=== PATIENT | male | born 1970 | race American Indian/Alaskan Native ===

== ENCOUNTER 2016-10-29 17:17 | Emergency (ER) | payer SELFPAY ==
[2016-10-29 18:01] LABS: Hemoglobin 11.8 gm/dl (11.8-15.2); Mean Corpuscular HGB Conc 33 % (32-34); Mean Corpuscular Hemoglobin 37 pg (28-32); Red Blood Count 3.17 M/mm3 (3.65-5.03); Red Cell Distribution Width 16.2 % (13.2-15.2)
[2016-10-29 18:02] LABS: Mean Corpuscular Volume 114 fl (84-94); White Blood Count 2.3 K/mm3 (4.5-11.0)
[2016-10-29 18:17] LABS: Anion Gap 32 mmol/L; BUN/Creatinine Ratio 26.25; Blood Urea Nitrogen 21 mg/dL (9-20); Calcium 9.1 mg/dL (8.4-10.2); Carbon Dioxide 15 mmol/L (22-30); Chloride 100.5 mmol/L (98-107); Glucose 99 mg/dL (75-100); Potassium 4.1 mmol/L (3.6-5.0); Sodium 143 mmol/L (137-145)
[2016-10-29 18:35] VITALS: BP 175/112
[2016-10-29 19:33] LABS: Basophils % (Manual) 0 % (0.0-1.8); Blastocytes % (Manual) 0 %
[2016-10-29 19:34] LABS: Anisocytosis 1+; Diff Status Complete; Macrocytosis 1+; Platelet Estimate Consistent w Auto
[2016-10-29 19:45] LABS: Urine Drugs of Abuse Note Disclamer
[2016-10-29 19:59] LABS: Platelet Count 77 K/mm3 (140-440)
[2016-10-29 20:03] LABS: Bacteria,Urine 1+ /HPF (Negative); Bilirubin,Urine NEG (Negative); Blood,Urine SM (Negative); Ketones,Urine TR mg/dL (Negative); Leukocyte Esterase,Urine NEG (Negative); Mucus,Urine FEW /HPF; Nitrite,Urine NEG (Negative); WBC,Urine < 1.0 /HPF (0.0-6.0)
--- NOTE | 2016-10-30 07:20 | XRay Report ---
Chest 2 views: Compared to 10/08/15. History: Shortness of breath. Findings: Cardiomegaly. Trachea is midline. No consolidation, pneumothorax or pleural effusion. Impression: Cardiomegaly. No acute lung changes.
== END 2016-10-29 19:57 | disposition left against medical advice (07) ==
LOC: ED 17:17
DX: R06.00 Dyspnea, unspecified (principal); M79.89 Other specified soft tissue disorders; Z53.21 Procedure and treatment not carried out due to patient leaving prior to being seen by health care provider
CPT/HCPCS: 36415; 71020; 80048; 80307; 81001; 82962; 83880; 84484; 85007; 85025; 93005; 93010; G0480; 80320

== ENCOUNTER 2016-10-30 07:54 | Inpatient (IN) | payer SELFPAY ==
[2016-10-30 08:59] LABS: Hematocrit 34.6 % (35.5-45.6); Hemoglobin 11.3 gm/dl (11.8-15.2); Mean Corpuscular HGB Conc 33 % (32-34); Mean Corpuscular Hemoglobin 38 pg (28-32); Red Blood Count 2.99 M/mm3 (3.65-5.03); White Blood Count 2.9 K/mm3 (4.5-11.0)
[2016-10-30 09:00] LABS: Mean Corpuscular Volume 116 fl (84-94); Platelet Count 70 K/mm3 (140-440)
[2016-10-30 09:11] LABS: Alanine Aminotransferase 44 units/L (7-56); Albumin 3.6 g/dL (3.9-5); Albumin/Globulin Ratio 0.9 %; Alkaline Phosphatase 95 units/L (35-129); Anion Gap 28 mmol/L; Blood Urea Nitrogen 16 mg/dL (9-20); Calcium 9.1 mg/dL (8.4-10.2); Carbon Dioxide 20 mmol/L (22-30); Chloride 96.7 mmol/L (98-107); Glucose 106 mg/dL (75-100); Potassium 3.5 mmol/L (3.6-5.0); Sodium 141 mmol/L (137-145); Total Protein 7.5 g/dL (6.3-8.2)
--- NOTE | 2016-10-30 09:22 | XRay Report ---
Single chest: Compared to 10/29/16. History: Shortness of breath. Findings: Cardiomegaly. Trachea is midline. No consolidation, pneumothorax or pleural effusion. No significant interval change. Linear density identified in the left lower lobe probably suggestive of discoid atelectasis and less likely pneumonia. Impression: Linear density left lower lobe probably suggestive of discoid atelectasis and less likely pneumonia.
[2016-10-30 11:00] LABS: Blastocytes % (Manual) 0 %; Eosinophils % (Manual) 0 % (0.0-4.3)
[2016-10-30 11:01] LABS: Anisocytosis 1+; Diff Status Complete; Macrocytosis 1+; Platelet Estimate Cons
[2016-10-30] MEDS ORDERED: NITRO-BID 2% TP ONE (14:07)
[2016-10-30] MEDS ORDERED: LASIX IV ONE ×2 (14:07→15:23)
--- NOTE | 2016-10-30 14:07 | Emergency Department Report ---
ED Shortness of Breath HPI - General Chief Complaint: Medical Clearance Stated Complaint: DEPRESSION/SOB Time Seen by Provider: 10/30/16 13:53 Source: patient Mode of arrival: Wheelchair Limitations: No Limitations - History of Present Illness MD Complaint: shortness of breath, cough -: Gradual Radiation: back Severity: mild Consistency: constant Improves With: oxygen, upright position, medication Worsens With: lying flat, exertion Known History Of: congestive heart failure Context: recent URI, medication noncompliance Associated Symptoms: cough, orhopnia Treatments Prior to Arrival: oxygen - Related Data Home Oxygen Therapy: No Previous Rx's Medication Instructions Recorded Last Taken Type Furosemide [Lasix TAB] 80 mg PO QDAY #30 tablet 10/09/15 Unknown Rx Allergies Allergy/AdvReac Type Severity Reaction Status Date / Time No Known Allergies Allergy Verified 10/29/16 17:29 ED Review of Systems ROS: Stated complaint: DEPRESSION/SOB Other details as noted in HPI Comment: All other systems reviewed and negative ED Past Medical Hx - Past Medical History Previous Medical History?: Yes Hx Hypertension: Yes Hx Congestive Heart Failure: Yes Hx Psychiatric Treatment: Yes (ANXIETY / DEPRESSION) Hx COPD: Yes - Surgical History Past Surgical History?: No - Social History Smoking Status: Never Smoker Substance Use Type: Alcohol - Medications Home Medications: Home Medications Medication Instructions Recorded Confirmed Last Taken Type Furosemide [Lasix TAB] 80 mg PO QDAY #30 tablet 10/09/15 Unknown Rx ED Physical Exam - General Limitations: No Limitations General appearance: alert, in no apparent distress - Head Head exam: Present: atraumatic, normocephalic - Eye Eye exam: Present: normal appearance - ENT ENT exam: Present: mucous membranes moist - Neck Neck exam: Present: normal inspection - Respiratory Respiratory exam: Present: normal lung sounds bilaterally, respiratory distress , rales, rhonchi, decreased breath sounds - Cardiovascular Cardiovascular Exam: Present: normal rhythm, tachycardia. Absent: systolic murmur, diastolic murmur, rubs, gallop - GI/Abdominal GI/Abdominal exam: Present: soft, normal bowel sounds - Rectal Rectal exam: Present: deferred - Extremities Exam Extremities exam: Present: normal inspection - Back Exam Back exam: Present: normal inspection - Neurological Exam Neurological exam: Present: alert, oriented X3 - Psychiatric Psychiatric exam: Present: normal affect, normal mood - Skin Skin exam: Present: warm, dry, intact, normal color. Absent: rash ED Course Vital Signs 10/30/16 10/30/16 10/30/16 08:26 14:01 14:26 Temperature 98.3 F 98.4 F Pulse Rate 120 H 124 H 112 H Respiratory 18 16 Rate Blood Pressure 171/113 160/104 Blood Pressure 180/110 [Left] O2 Sat by Pulse 98 100 Oximetry ED Medical Decision Making - Lab Data Result diagrams: 10/30/16 08:37 10/30/16 08:37 - EKG Data -: EKG Interpreted by Me Rate: tachycardia - EKG Data When compared to previous EKG there are: no significant change - Radiology Data Radiology results: report reviewed, image reviewed - Medical Decision Making will need admisison for pulmonary edema and chf , non compliance with meds, still sob with minimal exertion , Critical care time in (mins) excluding proc time.: 35 Critical care attestation.: If time is entered above; I have spent that time in minutes in the direct care of this critically ill patient, excluding procedure time. ED Disposition Clinical Impression: Pulmonary edema cardiac cause Disposition: OP ADMITTED IP TO THIS HOSP Is pt being admited?: Yes Does the pt Need Aspirin: No Condition: Good Instructions: Pulmonary Edema (ED) Referrals: PRIMARY CARE, [Primary Care Provider] - 3-5 Days Time of Disposition: 15:37
[2016-10-30 15:16] LABS: Creatine Kinase MB 5.2 ng/mL (0.0-4.0)
[2016-10-30] MEDS ORDERED: MILK OF MAGNESIA PO PRN (16:10)
[2016-10-30] MEDS ORDERED: TYLENOL PO PRN (16:10)
[2016-10-30] MEDS ORDERED: DULCOLAX PR PRN (16:10)
[2016-10-30] MEDS ORDERED: ZOFRAN IV PRN (16:10)
[2016-10-30] MEDS ORDERED: MORPHINE IV PRN (16:10)
[2016-10-30] MEDS ORDERED: COREG PO ONE (16:25)
--- NOTE | 2016-10-30 16:33 | History and Physical Report ---
History of Present Illness Date of examination: 10/30/16 Date of admission: 10/30/16 Chief complaint: Increasing SOB for one month. History of present illness: 46 y/o AAM with HX of CHF not taking his meds kelly Lasix for last one mth comes in for increasing SOB and Orthopnea .No PND attacks.Has Class 4 NYHA symptoms.No fever/chills.No chest pain. Past History Past Medical History: heart failure, hypertension Past Surgical History: No surgical history Social history: lives with family, smoking Family history: hypertension Medications and Allergies Allergies Allergy/AdvReac Type Severity Reaction Status Date / Time No Known Allergies Allergy Verified 10/29/16 17:29 Home Medications Medication Instructions Recorded Confirmed Last Taken Type Furosemide [Lasix TAB] 80 mg PO QDAY #30 tablet 10/09/15 10/30/16 Unknown Rx Lisinopril [Zestril] 40 mg PO DAILY 10/30/16 10/30/16 Unknown History Active Meds: Active Medications Acetaminophen (Tylenol) 650 mg PO Q4H PRN PRN Reason: Pain MILD(1-3)/Fever >100.5/ERWIN Aspirin (Baby Aspirin) 81 mg PO QDAY TERRELL Bisacodyl (Dulcolax) 10 mg FL QDAY PRN PRN Reason: Constipation unrelieved by MOM Carvedilol (Coreg) 6.25 mg PO ONCE ONE Stop: 10/30/16 16:26 Enoxaparin Sodium (Lovenox) 40 mg SUB-Q QDAY TERRELL Furosemide (Lasix) 40 mg IV BID@0600,1800 TERRELL Losartan Potassium (Cozaar) 100 mg PO QDAY TERRELL Magnesium Hydroxide (Milk Of Magnesia) 30 ml PO Q4H PRN PRN Reason: Constipation Morphine Sulfate (Morphine) 2 mg IV Q4H PRN PRN Reason: Pain, Moderate (4-6) Ondansetron HCl (Zofran) 4 mg IV Q8H PRN PRN Reason: N/V unrelieved by Reglan Potassium Chloride (K-Dur) 20 meq PO BID TERRELL Review of Systems All systems: negative Constitutional: weight gain Ears, nose, mouth and throat: no ear pain, no ear discharge, no tinnitis, no decreased hearing, no nose pain, no nasal congestion, no nasal discharge, no sinus pressure, no sinus pain Cardiovascular: orthopnea, shortness of breath, dyspnea on exertion, leg edema Respiratory: shortness of breath, dyspnea on exertion, no cough, no cough with sputum, no excessive sputum, no hemoptysis, no congestion, no wheezing, no pain on inspiration, no snoring Gastrointestinal: no abdominal pain, no nausea, no vomiting, no diarrhea, no constipation, no change in bowel habits, no hematemesis, no coffee ground emesis Genitourinary Male: no dysuria, no hematuria, no flank pain, no discharge, no urinary frequency, no urinary hesitancy, no nocturia, no incontinence Musculoskeletal: no neck stiffness, no neck pain, no shooting arm pain, no arm numbness/tingling, no low back pain, no shooting leg pain, no leg numbness/ tingling, no redness of joints Integumentary: no rash, no pruritis, no redness, no sores, no wounds, no jaundice, no boils, no blisters Neurological: no head injury, no transient paralysis, no paralysis, no weakness , no parathesias, no numbness, no tingling, no seizures, no syncope, no tremors , no ataxia, no lack of coordination Psychiatric: anxiety, no memory loss, no change in sleep habits, no sleep disturbances, no insomnia, no hypersomnia, no change in appetite, no change in libido Endocrine: no cold intolerance, no heat intolerance, no polyphagia, no excessive thirst, no polydipsia, no polyuria, no nocturia, no excessive sweating , no flushing, no weight change Hematologic/Lymphatic: no easy bruising, no easy bleeding Allergic/Immunologic: no urticaria, no allergic rhinitis, no wheezing Exam - Physical Exam Narrative exam: WD WN male in slight resp distress nonchalant - Constitutional Vitals: Temp Pulse Resp BP Pulse Ox 98.4 F 124 H 20 162/101 100 10/30/16 14:01 10/30/16 15:45 10/30/16 15:45 10/30/16 15:45 10/30/16 15:45 General appearance: Present: no acute distress, well-nourished - EENT Eyes: Present: PERRL ENT: hearing intact, clear oral mucosa - Neck Neck: Present: supple, normal ROM - Respiratory Respiratory effort: normal Respiratory: bilateral: rales - Cardiovascular Heart rate: 90 Rhythm: regular Heart Sounds: Present: S1 & S2. Absent: rub, click - Extremities Extremities: pulses symmetrical, No edema Extremity abnormal: edema Peripheral Pulses: within normal limits - Abdominal General gastrointestinal: Present: soft, non-tender, non-distended, normal bowel sounds Male genitourinary: Present: normal - Integumentary Integumentary: Present: clear, warm, dry - Musculoskeletal Musculoskeletal: gait normal, strength equal bilaterally - Psychiatric Psychiatric: appropriate mood/affect, intact judgment & insight - Neurologic Neurologic: CNII-XII intact, moves all extremities - Allied Health Allied health notes reviewed: nursing, case management Results - Labs CBC & Chem 7: 10/31/16 04:57 10/31/16 04:57 Labs: Laboratory Last Values WBC 2.9 K/mm3 (4.5-11.0) L 10/30/16 08:37 RBC 2.99 M/mm3 (3.65-5.03) L 10/30/16 08:37 Hgb 11.3 gm/dl (11.8-15.2) L 10/30/16 08:37 Hct 34.6 % (35.5-45.6) L 10/30/16 08:37 MCV 116 fl (84-94) H 10/30/16 08:37 MCH 38 pg (28-32) H 10/30/16 08:37 MCHC 33 % (32-34) 10/30/16 08:37 RDW 16.0 % (13.2-15.2) H 10/30/16 08:37 Plt Count 70 K/mm3 (140-440) L 10/30/16 08:37 Lymph % (Auto) Stake Setter 10/30/16 08:37 [place] % (Auto) Stake Setter 10/30/16 08:37 Eos % (Auto) Stake Setter 10/30/16 08:37 Baso % (Auto) Stake Setter 10/30/16 08:37 Lymph # Stake Setter 10/30/16 08:37 [place] # Stake Setter 10/30/16 08:37 Eos # Stake Setter 10/30/16 08:37 Baso # Stake Setter 10/30/16 08:37 Add Manual Diff Complete 10/30/16 08:37 Total Counted 100 10/30/16 08:37 Seg Neutrophils % Stake Setter 10/30/16 08:37 Seg Neuts % (Manual) 78.0 % (40.0-70.0) H 10/30/16 08:37 Band Neutrophils % 0 % 10/30/16 08:37 Lymphocytes % (Manual) 10.0 % (13.4-35.0) L 10/30/16 08:37 Reactive Lymphs % (Man) 1.0 % 10/30/16 08:37 Monocytes % (Manual) 10.0 % (0.0-7.3) H 10/30/16 08:37 Eosinophils % (Manual) 0 % (0.0-4.3) 10/30/16 08:37 Basophils % (Manual) 1.0 % (0.0-1.8) 10/30/16 08:37 Metamyelocytes % 0 % 10/30/16 08:37 Myelocytes % 0 % 10/30/16 08:37 Promyelocytes % 0 % 10/30/16 08:37 Blast Cells % 0 % 10/30/16 08:37 Nucleated RBC % 1.0 % (0.0-0.9) H 10/30/16 08:37 Seg Neutrophils # Stake Setter 10/30/16 08:37 Seg Neutrophils # Man 2.3 K/mm3 (1.8-7.7) 10/30/16 08:37 Band Neutrophils # 0.0 K/mm3 10/30/16 08:37 Lymphocytes # (Manual) 0.3 K/mm3 (1.2-5.4) L 10/30/16 08:37 Abs React Lymphs (Man) 0.0 K/mm3 10/30/16 08:37 Monocytes # (Manual) 0.3 K/mm3 (0.0-0.8) 10/30/16 08:37 Eosinophils # (Manual) 0.0 K/mm3 (0.0-0.4) 10/30/16 08:37 Basophils # (Manual) 0.0 K/mm3 (0.0-0.1) 10/30/16 08:37 Metamyelocytes # 0.0 K/mm3 10/30/16 08:37 Myelocytes # 0.0 K/mm3 10/30/16 08:37 Promyelocytes # 0.0 K/mm3 10/30/16 08:37 Blast Cells # 0.0 K/mm3 10/30/16 08:37 WBC Morphology Not Reportable 10/30/16 08:37 Hypersegmented Neuts Not Reportable 10/30/16 08:37 Hyposegmented Neuts Not Reportable 10/30/16 08:37 Hypogranular Neuts Not Reportable 10/30/16 08:37 Smudge Cells Not Reportable 10/30/16 08:37 Toxic Granulation Not Reportable 10/30/16 08:37 Toxic Vacuolation Not Reportable 10/30/16 08:37 Dohle Bodies Not Reportable 10/30/16 08:37 Pelger-Huet Anomaly Not Reportable 10/30/16 08:37 Mack Rods Not Reportable 10/30/16 08:37 Platelet Estimate Cons 10/30/16 08:37 Clumped Platelets Not Reportable 10/30/16 08:37 Plt Clumps, EDTA Not Reportable 10/30/16 08:37 Large Platelets Not Reportable 10/30/16 08:37 Giant Platelets Not Reportable 10/30/16 08:37 Platelet Satelliting Not Reportable 10/30/16 08:37 Plt Morphology Comment Not Reportable 10/30/16 08:37 RBC Morphology Not Reportable 10/30/16 08:37 Dimorphic RBCs Not Reportable 10/30/16 08:37 Polychromasia Not Reportable 10/30/16 08:37 Hypochromasia Not Reportable 10/30/16 08:37 Poikilocytosis Not Reportable 10/30/16 08:37 Anisocytosis 1+ 10/30/16 08:37 Microcytosis Not Reportable 10/30/16 08:37 Macrocytosis 1+ 10/30/16 08:37 Spherocytes Not Reportable 10/30/16 08:37 Pappenheimer Bodies Not Reportable 10/30/16 08:37 Sickle Cells Not Reportable 10/30/16 08:37 Target Cells Not Reportable 10/30/16 08:37 Tear Drop Cells Not Reportable 10/30/16 08:37 Ovalocytes Not Reportable 10/30/16 08:37 Helmet Cells Not Reportable 10/30/16 08:37 Jackson-Tolar Bodies Not Reportable 10/30/16 08:37 [place] Rings Not Reportable 10/30/16 08:37 Yolis Cells Not Reportable 10/30/16 08:37 Bite Cells Not Reportable 10/30/16 08:37 Crenated Cell Not Reportable 10/30/16 08:37 Elliptocytes Not Reportable 10/30/16 08:37 Acanthocytes (Spur) Not Reportable 10/30/16 08:37 Rouleaux Not Reportable 10/30/16 08:37 Hemoglobin C Crystals Not Reportable 10/30/16 08:37 Schistocytes Not Reportable 10/30/16 08:37 Malaria parasites Not Reportable 10/30/16 08:37 Víctor Bodies Not Reportable 10/30/16 08:37 Hem Pathologist Commnt No 10/30/16 08:37 Sodium 141 mmol/L (137-145) 10/30/16 08:37 Potassium 3.5 mmol/L (3.6-5.0) L 10/30/16 08:37 Chloride 96.7 mmol/L (98-107) L 10/30/16 08:37 Carbon Dioxide 20 mmol/L (22-30) L 10/30/16 08:37 Anion Gap 28 mmol/L 10/30/16 08:37 BUN 16 mg/dL (9-20) 10/30/16 08:37 Creatinine 0.8 mg/dL (0.8-1.5) 10/30/16 08:37 Estimated GFR > 60 ml/min 10/30/16 08:37 BUN/Creatinine Ratio 20.00 % 10/30/16 08:37 Glucose 106 mg/dL (75-100) H 10/30/16 08:37 Calcium 9.1 mg/dL (8.4-10.2) 10/30/16 08:37 Total Bilirubin 2.20 mg/dL (0.1-1.2) H 10/30/16 08:37 AST 101 units/L (5-40) H 10/30/16 08:37 ALT 44 units/L (7-56) 10/30/16 08:37 Alkaline Phosphatase 95 units/L (35-129) 10/30/16 08:37 Total Creatine Kinase 157 units/L (55-170) 10/30/16 13:17 CK-MB (CK-2) 5.2 ng/mL (0.0-4.0) H 10/30/16 13:17 CK-MB (CK-2) Rel Index 3.3 (0-4) 10/30/16 13:17 Troponin T 0.014 ng/mL (0.00-0.029) 10/30/16 13:17 NT-Pro-B Natriuret Pep 85822 pg/mL (0-450) H 10/30/16 08:37 Total Protein 7.5 g/dL (6.3-8.2) 10/30/16 08:37 Albumin 3.6 g/dL (3.9-5) L 10/30/16 08:37 Albumin/Globulin Ratio 0.9 % 10/30/16 08:37 Short CBC 10/30/16 10/31/16 Range/Units 08:37 04:57 WBC 2.9 L 3.2 L (4.5-11.0) K/mm3 Hgb 11.3 L 10.7 L (11.8-15.2) gm/dl Hct 34.6 L 31.8 L (35.5-45.6) % Plt Count 70 L 65 L (140-440) K/mm3 BMP 10/30/16 10/31/16 08:37 04:57 Sodium 141 139 Potassium 3.5 L 3.5 L Chloride 96.7 L 94.8 L Carbon Dioxide 20 L 26 BUN 16 20 Creatinine 0.8 0.9 Glucose 106 H 112 H Calcium 9.1 8.6 Cardiac Enzymes 10/30/16 Range/Units 13:17 Total Creatine Kinase 157 (55-170) units/L CK-MB (CK-2) 5.2 H (0.0-4.0) ng/mL Troponin T 0.014 (0.00-0.029) ng/mL Liver Function 10/30/16 10/31/16 Range/Units 08:37 04:57 Total Bilirubin 2.20 H 2.20 H (0.1-1.2) mg/dL AST 101 H 70 H (5-40) units/L ALT 44 33 (7-56) units/L Alkaline Phosphatase 95 76 (35-129) units/L Albumin 3.6 L 3.2 L (3.9-5) g/dL - Imaging and Cardiology EKG: report reviewed (Sinus Tachycardia) Chest x-ray: report reviewed (C/w CHF) Assessment and Plan - Patient Problems (1) Acute exacerbation of CHF (congestive heart failure) Current Visit: Yes Status: Acute Qualifiers: Congestive heart failure type: combined Qualified Code(s): I50.43 - Acute on chronic combined systolic (congestive) and diastolic (congestive) heart failure Plan to address problem: Patient on IV Lasix 40 mg q12h to be transitioned to oral Lasix.Echo ordered for EF.Also ARB's and B blockers started. (2) HTN (hypertension) Current Visit: Yes Status: Chronic Qualifiers: Hypertension type: essential hypertension Qualified Code(s): I10 - Essential (primary) hypertension Plan to address problem: Patient started on Losartan and coreg for his BP (3) Non-compliance Current Visit: Yes Status: Chronic Plan to address problem: Counselled strongly to take his meds.He can [facility] at [facility] which [facility] a [facility] close to this facility.Losinoprilstopped b/c of its side effects. (4) DVT prophylaxis Current Visit: Yes Status: Acute Plan to address problem: on lovenox
[2016-10-30] MEDS: COZAAR PO SCH (17:08)
[2016-10-30] MEDS: BABY ASPIRIN PO SCH (17:08)
[2016-10-30] MEDS: LASIX IV SCH (20:38)
[2016-10-30] MEDS: K-DUR PO SCH (22:40)
[2016-10-31] MEDS: LASIX IV SCH (05:36)
[2016-10-31 05:50] LABS: Basophils % (Auto) 0.9 % (0.0-1.8); Eosinophils % (Auto) 0.7 % (0.0-4.3); Hematocrit 31.8 % (35.5-45.6); Hemoglobin 10.7 gm/dl (11.8-15.2); Mean Corpuscular HGB Conc 34 % (32-34); Mean Corpuscular Hemoglobin 38 pg (28-32); White Blood Count 3.2 K/mm3 (4.5-11.0)
[2016-10-31 05:58] LABS: Mean Corpuscular Volume 114 fl (84-94); Platelet Count 65 K/mm3 (140-440)
[2016-10-31 06:08] LABS: Alanine Aminotransferase 33 units/L (7-56); Albumin 3.2 g/dL (3.9-5); Albumin/Globulin Ratio 0.9 %; Alkaline Phosphatase 76 units/L (35-129); Anion Gap 22 mmol/L; BUN/Creatinine Ratio 22.22; Blood Urea Nitrogen 20 mg/dL (9-20); Calcium 8.6 mg/dL (8.4-10.2); Carbon Dioxide 26 mmol/L (22-30); Chloride 94.8 mmol/L (98-107); Glucose 112 mg/dL (75-100); Potassium 3.5 mmol/L (3.6-5.0); Sodium 139 mmol/L (137-145); Total Protein 6.6 g/dL (6.3-8.2)
--- NOTE | 2016-10-31 06:53 | Admit Criteria Form ---
Admission Criteria Documentation: HEART FAILURE Clinical Indications for Admission to Inpatient Care (Place 'X' for any and all applicable criteria): Admission is indicated by ANY ONE of the following(1)(2)(3)(4): [ ]I. Severe electrolyte abnormalities requiring inpatient care(9) [ ]II. Hemodynamic instability [ ]III. Anasarca [ ]IV. Acute cardiac ischemia causing or associated with failure (Also use Angina or Myocardial Infarction as appropriate) [ ]V. Cardiac arrhythmias of immediate concern [ ]. Precipitating cause for acute decompensation (eg, pneumonia, pulmonary embolism) requires inpatient care [ ]VII. Pulmonary edema that is very severe (eg, mechanical ventilation needed, imminent or likely, need for 100% oxygen to keep oxygen saturation above 90%) [X ]VIII. Inpatient admission required rather than observation care (Also use Heart Failure: Observation Care as appropriate) because of ANY ONE of the following: [X ]a) Pulmonary edema that is severe or worsening as indicated by ALL of the following: [X ]i) New need for oxygen therapy to keep oxygen saturation above 90% (or increased FiO2 need from baseline) [X ]ii) Has not improved sufficiently with emergency department or observation care IV diuretics or other heart failure treatments[C] [ ]b) Cognitive impairment that is severe or persistent [ ]c) Increased creatinine (new on laboratory test) with reduction of more than 50% in estimated glomerular filtration rate from baseline. [ ]d) Acute renal insufficiency (progressively (ongoing) rising creatinine (known from past laboratory test) with reduction of more than 25% in estimated glomerular filtration rate from baseline) [ ]e) Acute peripheral ischemia (eg, pulseless, cool, mottled, or cyanotic extremity) [ ]f) Acute renal failure [ ]g) Supplemental O2 or respiratory treatment for >24 hr that are performable only in acute inpatient setting [ ]h) Pulmonary artery catheter monitoring [ ]i) Other condition, treatment or monitoring requiring inpatient admission [ ]IX. Contraindications and/or Inappropriate clinical situations for Observational Care in patients with Heart Failure, when ANY ONE of the following is required: [ ]a) Patient with High risk of cardiac embolism (e.g, patients with previous cardiac embolism, LVEF < 40%, age >75 and patients with prosthetic valve) 18 [ ]b) Patient with Moderate risk including DM patient, CAD and patient aged 65-75 [ ]c) Patient with any change in cardiac biomarker especially troponin should be managed as high risk in an inpatient setting 19 [ ]d) Physician judgement irrespective of ECG and other diagnostic findings 20 [ ]e) Patients with hyponatremia have high risk for mortality and require more extensive care and length of stay 21 [ ]f) Need for large volume diuresis 21 [ ]g) Presence of renal insufficiency or hypotension limiting speed of diuresis 21 [ ]h) Acute cardiac Ischemia in the elderly 21 [ ]i) Patients with a 30 day risk of mortality based on a multidimensional prognostic index (MPI) [J,]21 [ ]X. General contraindications and/or Inappropriate clinical situations for Observational Care in patients with Heart Failure, when ANY ONE of the following is required: [ ]a) Prediction of prolongation of LOS based on ANY ONE of the following may be considered as a contraindication for observational care 2, 3, 4, 5, 6, 7, 8 , 9, 10, 11 [ ]i) Age > 65 yrs. [ ]ii) Patient arriving by ambulance [ ]iii) Patient with high acuity [ ]iv) Patient requiring vital sign monitoring [ ]v) Patient on IV medication [ ]b) Systolic blood pressures 180mmHg 3,12 [ ]c) Patient with altered mental status including delirium and other alteration of consciousness, (3) [ ]d) Patient whose discharge disposition will be to a residential home or rehabilitation home should not be managed in Emergency Department Observation Unit. CMS rule requires 3 days hospital stay before such placement.3,13 [ ]e) Patient with failure to thrive due to broad array of etiologies 3,16,17 [ ]f) Inability to ambulate 3,14 Extended stay beyond goal length of stay may be needed for(1)(3)(21)(25): [ ]a) Cardiac ischemia, confirmed or suspected as precipitant [ ]b) Cardiogenic shock or refractory pulmonary edema [ ]c) Acute kidney injury or renal failure [ ]d) Respiratory failure (eg, need for noninvasive or invasive mechanical ventilation) (23) [ ]e) Concomitant pneumonia or significant electrolyte abnormality (eg, severe hyponatremia) [ ]f) Newly diagnosed (new onset) atrial fibrillation [ ]g) Stage IV chronic kidney disease (estimated glomerular filtration rate of less than 30 mL/min/1.73m2 (0.50 mL/sec/1.73m2), and not previously on chronic dialysis The original [facility] content created by [facility] has been revised. The portions of the content which have been revised are identified through the use of italic text or in bold, and [facility] has neither reviewed nor approved the modified material. All other unmodified content is copyright [facility]. Please see references footnoted in the original [facility] edition 2016 Admission Criteria Met: Yes
--- NOTE | 2016-10-31 09:11 | Progress Note ---
Assessment and Plan 46 y/o AAM with HX of CHF not taking his meds kelly Lasix for last one mth comes in for increasing SOB and Orthopnea (1) Acute exacerbation of CHF (congestive heart failure) Current Visit: Yes Status: Acute Qualifiers: Congestive heart failure type: combined Qualified Code(s): I50.43 - Acute on chronic combined systolic (congestive) and diastolic (congestive) heart failure Plan to address problem: Patient on IV Lasix 40 mg q12h to be transitioned to oral Lasix.Echo ordered for EF.Also ARB's and B blockers started. (2) HTN (hypertension) Current Visit: Yes Status: Chronic Qualifiers: Hypertension type: essential hypertension Qualified Code(s): I10 - Essential (primary) hypertension Plan to address problem: Patient started on Losartan and coreg for his BP (3) Non-compliance Current Visit: Yes Status: Chronic Plan to address problem: Counselled strongly to take his meds.He can follow up at [facility] which is a [facility] clinic close to this facility.Losinoprilstopped b/c of its side effects. (4) DVT prophylaxis Current Visit: Yes Status: Acute Plan to address problem: on lovenox Subjective Date of service: 10/31/16 Interval history: Patient seen and examined. Medical records and medication list reviewed. No acute event overnight noted by the RN. Patient denies any chest pain or difficulty breathing. Patient is tolerating diet. Discussed plan of care at bedside with patient. Objective - Exam Narrative Exam: GENERAL: well-developed and well-nourished lying on bed appeared to be in no discomfort. HEENT: Normocephalic. Atraumatic. No conjunctival congestion or icterus. Patient has moist mucous membranes. NECK: Supple. Trachea midline. CHEST/LUNGS: Clear to auscultated bilaterally, breathing nonlabored. No wheezes crackles or rhonchi. HEART/CARDIOVASCULAR: Regular in rate and rhythm. S1 and S2 positive. ABDOMEN: Abdomen is soft, nontender. Patient has normal bowel sounds. SKIN: There is no rash. Warm and dry. NEURO: No focal motor deficit. Follows command. MUSCULOSKELETAL: No joint effusion or tenderness. EXTRIMITY: No edema, no cyanosis or clubbing. PSYCH: Cooperative. - Constitutional Vitals: Vital Signs - 12hr 10/30/16 10/31/16 10/31/16 22:00 01:10 04:56 Temperature 98.2 F 97 F L Pulse Rate [ 105 H 103 H 100 H From Monitor] Respiratory 20 20 20 Rate Blood Pressure 134/87 130/83 [Left Arm] O2 Sat by Pulse 100 100 Oximetry - Labs CBC & Chem 7: 10/31/16 04:57 10/31/16 04:57 Labs: Abnormal lab results 10/31/16 10/31/16 Range/Units 04:57 04:57 WBC 3.2 L (4.5-11.0) K/mm3 RBC 2.80 L (3.65-5.03) M/mm3 Hgb 10.7 L (11.8-15.2) gm/dl Hct 31.8 L (35.5-45.6) % MCV 114 H (84-94) fl MCH 38 H (28-32) pg RDW 16.0 H (13.2-15.2) % Plt Count 65 L (140-440) K/mm3 [place] % (Auto) 15.3 H (0.0-7.3) % Lymph # 1.0 L (1.2-5.4) K/mm3 Seg Neutrophils # 1.7 L (1.8-7.7) K/mm3 Potassium 3.5 L (3.6-5.0) mmol/L Chloride 94.8 L (98-107) mmol/L Glucose 112 H (75-100) mg/dL Total Bilirubin 2.20 H (0.1-1.2) mg/dL AST 70 H (5-40) units/L Albumin 3.2 L (3.9-5) g/dL
[2016-10-31 09:37] VITALS: BP 121/83
[2016-10-31] MEDS ORDERED: LOVENOX SUB-Q SCH (10:00)
[2016-10-31] MEDS: COZAAR PO SCH (10:22)
[2016-10-31] MEDS: BABY ASPIRIN PO SCH (10:22)
[2016-10-31] MEDS: K-DUR PO SCH (10:23)
--- NOTE | 2016-10-31 12:14 | Discharge Summary ---
Providers - Providers Date of Admission: 10/30/16 16:10 Date of discharge: 10/31/16 Attending physician: BLAZE VALDEZ Primary care physician: BELT LOOP MACHINE OPERATOR Hospitalization Condition: Good Hospital course: 46 y/o AAM with HX of CHF not taking his meds kelly Lasix for last one mth comes in for increasing SOB and Orthopnea. Discharge diagnosis: (1) Acute exacerbation of CHF (congestive heart failure) Current Visit: Yes Status: Acute Qualifiers: Congestive heart failure type: combined Qualified Code(s): I50.43 - Acute on chronic combined systolic (congestive) and diastolic (congestive) heart failure Plan to address problem: Patient on IV Lasix 40 mg q12h to be transitioned to oral Lasix.Echo ordered for EF.Also ARB's and B blockers started. (2) HTN (hypertension) Current Visit: Yes Status: Chronic Qualifiers: Hypertension type: essential hypertension Qualified Code(s): I10 - Essential (primary) hypertension Plan to address problem: Patient started on Losartan and coreg for his BP (3) Non-compliance Current Visit: Yes Status: Chronic Plan to address problem: Counselled strongly to take his meds.He can follow up at [facility] which is a [facility] close to this facility.Losinoprilstopped b/c of its side effects. (4) Alcohol abuse Current Visit: Yes Status: chronic Plan to address problem: Counselled for cessation 5. pancytopania - due to EtOH abuse - cont to monitor outpt Disposition: DISCHARGED TO HOME OR SELFCARE Time spent for discharge: 32 minutes Core Measure Documentation - Palliative Care Palliative Care/ Comfort Measures: Not Applicable - Core Measures Any of the following diagnoses?: heart failure - Heart Failure Discharge Requirements SERA/ARB for LVSD if EF <40%: Yes Beta sher at discharge: Yes Exam - Constitutional Vitals: Temp Pulse Resp BP Pulse Ox 97.7 F 95 H 18 121/83 97 10/31/16 08:15 10/31/16 08:15 10/31/16 08:15 10/31/16 08:15 10/31/16 08:15 General appearance: Present: no acute distress, well-nourished - EENT Eyes: Present: PERRL ENT: hearing intact, clear oral mucosa - Neck Neck: Present: supple, normal ROM - Respiratory Respiratory effort: normal Respiratory: bilateral: CTA - Cardiovascular Heart Sounds: Present: S1 & S2. Absent: rub, click - Extremities Extremities: pulses symmetrical, No edema Peripheral Pulses: within normal limits - Abdominal General gastrointestinal: Present: soft, non-tender, non-distended, normal bowel sounds - Integumentary Integumentary: Present: clear, warm, dry - Musculoskeletal Musculoskeletal: gait normal, strength equal bilaterally - Psychiatric Psychiatric: appropriate mood/affect, intact judgment & insight - Neurologic Neurologic: CNII-XII intact, moves all extremities Plan Activity: advance as tolerated Weight Bearing Status: Weight Bear as Tolerated Diet: low cholesterol, low salt Special Instructions: follow up in rehab (for EtOH abuse) Follow up with: PRIMARY CARE, [Primary Care Provider] - 3-5 Days Prescriptions: Aspirin [Aspirin BABY CHEW TAB] 81 mg PO QDAY #30 tab.chew Carvedilol [Coreg] 3.125 mg PO BID #60 tablet Furosemide [Lasix TAB] 80 mg PO QDAY #30 tablet
--- NOTE | 2016-10-31 20:07 | Event Note ---
Date: 10/31/16 The patient was discharged from the hospital, by the medical service, before cardiology consultation could be completed. If indicated, please have the patient follow-up in our office, phone number .
== END 2016-10-31 13:29 | disposition home or self-care (01) | DRG 292 ==
LOC: ED 07:54 → EEVIPCON 07:54 → 4A 16:10
PROVIDERS: ADMIT Internal Medicine; ATTEND Internal Medicine
DX: I11.0 Hypertensive heart disease with heart failure (principal); D61.818 Other pancytopenia; J81.1 Chronic pulmonary edema; I50.43 Acute on chronic combined systolic (congestive) and diastolic (congestive) heart failure; F10.10 Alcohol abuse, uncomplicated; J44.9 Chronic obstructive pulmonary disease, unspecified; F41.9 Anxiety disorder, unspecified; F32.9 Major depressive disorder, single episode, unspecified; F17.200 Nicotine dependence, unspecified, uncomplicated; Z91.14 Patient's other noncompliance with medication regimen; Z82.49 Family history of ischemic heart disease and other diseases of the circulatory system
CPT/HCPCS: 36415; 71010; 80053; 82550; 82553; 83880; 84484; 85007; 85025; 93005; 93010; 93306; 96374; 96376; J1650; J1940

== ENCOUNTER 2016-12-05 18:05 | Inpatient (IN) | payer OTHER ==
--- NOTE | 2016-12-05 18:27 | Emergency Department Report ---
Chief Complaint: Dyspnea/Respdistress Stated Complaint: LAURA Time Seen by Provider: 12/05/16 18:22 - HPI History of Present Illness: PT states he ran out of his medication 3 days ago. PT states he just needs a refill. PT reports sob - ROS Review of Systems: + sob + wheezing - cp - edema - Exam Vital Signs: Vital Signs 12/05/16 18:20 Temperature 98.3 F Pulse Rate 118 H Respiratory 24 Rate O2 Sat by Pulse 97 Oximetry Physical Exam: PT looks well, non toxic, obsese tachycardia no acute resp distress MSE screening note: Focused history and physical exam performed. Due to findings the following was ordered: labs, xr, ekg ED Disposition for MSE Condition: Stable
[2016-12-05 18:54] LABS: Basophils % (Auto) 1.1 % (0.0-1.8); Eosinophils % (Auto) 0.5 % (0.0-4.3); Hematocrit 36.4 % (35.5-45.6); Mean Corpuscular HGB Conc 33 % (32-34); Mean Corpuscular Hemoglobin 36 pg (28-32); Mean Corpuscular Volume 110 fl (84-94); Platelet Count 293 K/mm3 (140-440); Red Blood Count 3.31 M/mm3 (3.65-5.03); Red Cell Distribution Width 14.8 % (13.2-15.2); White Blood Count 7.7 K/mm3 (4.5-11.0)
[2016-12-05 19:04] LABS: Alanine Aminotransferase 35 units/L (7-56); Albumin 3.7 g/dL (3.9-5); Albumin/Globulin Ratio 0.8 %; Alkaline Phosphatase 85 units/L (35-129); Anion Gap 28 mmol/L; BUN/Creatinine Ratio 23.33; Blood Urea Nitrogen 21 mg/dL (9-20); Calcium 9.3 mg/dL (8.4-10.2); Carbon Dioxide 13 mmol/L (22-30); Chloride 101.8 mmol/L (98-107); Glucose 90 mg/dL (75-100); Potassium 4.2 mmol/L (3.6-5.0); Sodium 139 mmol/L (137-145); Total Protein 8.1 g/dL (6.3-8.2)
[2016-12-06] MEDS ORDERED: LASIX PO ONE (00:15)
[2016-12-06] MEDS ORDERED: COREG PO ONE (00:15)
[2016-12-06] MEDS ORDERED: LASIX IV ONE ×2 (00:15→00:28)
[2016-12-06] MEDS ORDERED: ZESTRIL PO ONE (00:28)
[2016-12-06] MEDS ORDERED: ASPIRIN PO ONE (00:44)
--- NOTE | 2016-12-06 00:45 | Emergency Department Report ---
ED Shortness of Breath HPI - General Chief Complaint: Dyspnea/Respdistress Stated Complaint: LAURA Time Seen by Provider: 12/05/16 18:22 Source: patient, old records reviewed Mode of arrival: Wheelchair Limitations: No Limitations - History of Present Illness Initial Comments: 46-year-old male with a past medical history CHF, alcohol abuse, and hypertension presents to the hospital with complaints of shortness of breath 2 days. Symptoms started since running out of his current medication. Symptoms worse with exertion and movement. Patient ran out of his lisinopril, Lasix, and has not taken his Coreg times one month because he temporarily misplaced the prescription. Patient denies history of COPD/asthma or pulmonary lung disease. Patient complains of generalized bodyaches intermittent chest tightness. Occasional cough productive of clear sputum reported. No reports of fever. Positive history of alcohol abuse who patient states he has not had any alcohol times one month. PMD: None Previous medical record reviewed. Patient has had admissions in the past secondary to medication noncompliance. Last admission was a month ago. - Related Data Previous Rx's Medication Instructions Recorded Last Taken Type Aspirin [Aspirin BABY CHEW TAB] 81 mg PO QDAY #30 tab.chew 10/31/16 Unknown Rx Carvedilol [Coreg] 3.125 mg PO BID #60 tablet 10/31/16 Unknown Rx Furosemide [Lasix TAB] 80 mg PO QDAY #30 tablet 10/31/16 Unknown Rx Lisinopril [Zestril] 40 mg PO DAILY #30 10/31/16 Unknown Rx Allergies Allergy/AdvReac Type Severity Reaction Status Date / Time No Known Allergies Allergy Verified 10/29/16 17:29 ED Review of Systems ROS: Stated complaint: LAURA Other details as noted in HPI Comment: All other systems reviewed and negative Other: Constitutional: No fevers chills Eyes: No eye pain visual changes ENT: No ear pain or throat pain Neck: Denies pain Respiratory: As per HPI Cardiovascular: Denies palpitations, syncope GI: Denies abdominal pain, nausea, vomiting, diarrhea, : Denies dysuria, urinary frequency, or urgency Musculoskeletal: Generalized pain Skin: Denies rash, lesions, erythema Neurologic: Denies headache, numbness, weakness Psychiatric: Denies suicidal ideation, hallucinations ED Past Medical Hx - Past Medical History Hx Hypertension: Yes Hx Congestive Heart Failure: Yes Hx Psychiatric Treatment: Yes (ANXIETY / DEPRESSION) Hx COPD: Yes Hx HIV: No - Social History Smoking Status: Never Smoker Substance Use Type: None - Medications Home Medications: Home Medications Medication Instructions Recorded Confirmed Last Taken Type Aspirin [Aspirin BABY CHEW TAB] 81 mg PO QDAY #30 tab.chew 10/31/16 Unknown Rx Carvedilol [Coreg] 3.125 mg PO BID #60 tablet 10/31/16 Unknown Rx Furosemide [Lasix TAB] 80 mg PO QDAY #30 tablet 10/31/16 Unknown Rx Lisinopril [Zestril] 40 mg PO DAILY #30 10/31/16 10/30/16 Unknown Rx ED Physical Exam - General Limitations: No Limitations - Other Other exam information: General: No limitations, patient is alert in no acute distress Eyes exam: Normal appearance ENT: Moist mucous membrane Neck exam: Normal inspection, full range of motion Respiratory exam: Tachypnea, mild diminished breath sounds, no rales or wheezes Cardiovascular: Tachycardic regular rhythm Abdomen: Soft, nondistended, and nontender, with normal bowel sounds, no rebound, or guarding Extremity: Full range of motion normal inspection no deformity, no leg edema, no calf tenderness Back: Normal Inspection, full range of motion, no tenderness Neurologic: Alert, oriented x3, cranial nerves intact, no motor or sensory deficit Psychiatric: normal affect, normal mood ED Course Vital Signs 12/05/16 12/05/16 12/05/16 18:20 18:25 23:50 Temperature 98.3 F 98.7 F Pulse Rate 118 H 121 H Respiratory 24 29 H Rate Blood Pressure Blood Pressure 185/127 197/122 [Right] O2 Sat by Pulse 97 99 Oximetry 12/06/16 12/06/16 12/06/16 00:31 00:43 00:44 Temperature Pulse Rate 127 H 117 H 117 H Respiratory 22 Rate Blood Pressure 200/119 185/117 Blood Pressure 185/117 [Right] O2 Sat by Pulse 97 Oximetry - Reevaluation(s) Reevaluation #1: 12/06/16 00:44 Lasix, lisinopril, Coreg, and aspirin ordered - ABG Interpretation Ph: 7.41 PCO2: 22 PO2: 77 Bicarbonate: 14 Interpretation: metabolic acidosis Additional Comments: Patient has a possible metabolic acidosis that is compensated resulting in an apparent respiratory alkalosis ED Medical Decision Making - Lab Data Result diagrams: 12/05/16 18:29 06/20/17 18:29 Lab Results 12/05/16 12/05/16 12/05/16 Range/Units 18:29 18:29 18:29 WBC 7.7 (4.5-11.0) K/mm3 RBC 3.31 L (3.65-5.03) M/mm3 Hgb 12.0 (11.8-15.2) gm/dl Hct 36.4 (35.5-45.6) % MCV 110 H (84-94) fl MCH 36 H (28-32) pg MCHC 33 (32-34) % RDW 14.8 (13.2-15.2) % Plt Count 293 (140-440) K/mm3 Lymph % (Auto) 15.9 (13.4-35.0) % [place] % (Auto) 8.4 H (0.0-7.3) % Eos % (Auto) 0.5 (0.0-4.3) % Baso % (Auto) 1.1 (0.0-1.8) % Lymph # 1.2 (1.2-5.4) K/mm3 [place] # 0.6 (0.0-0.8) K/mm3 Eos # 0.0 (0.0-0.4) K/mm3 Baso # 0.1 (0.0-0.1) K/mm3 Seg Neutrophils % 74.1 H (40.0-70.0) % Seg Neutrophils # 5.7 (1.8-7.7) K/mm3 Sodium 139 (137-145) mmol/L Potassium 4.2 (3.6-5.0) mmol/L Chloride 101.8 (98-107) mmol/L Carbon Dioxide 13 L (22-30) mmol/L Anion Gap 28 mmol/L BUN 21 H (9-20) mg/dL Creatinine 0.9 (0.8-1.5) mg/dL Estimated GFR > 60 ml/min BUN/Creatinine Ratio 23.33 % Glucose 90 (75-100) mg/dL Calcium 9.3 (8.4-10.2) mg/dL Total Bilirubin 0.70 (0.1-1.2) mg/dL AST 59 H (5-40) units/L ALT 35 (7-56) units/L Alkaline Phosphatase 85 (35-129) units/L NT-Pro-B Natriuret Pep 47411 H (0-450) pg/mL Total Protein 8.1 (6.3-8.2) g/dL Albumin 3.7 L (3.9-5) g/dL Albumin/Globulin Ratio 0.8 % - EKG Data -: EKG Interpreted by Me (sinus tach with 18 nonspecific T abnormality) - EKG Data When compared to previous EKG there are: no significant change (compared to ) - Radiology Data Radiology results: image reviewed (chest x-ray: Positive CHF) - Medical Decision Making Patient has significant tachycardia. This could be due to shortness of breath, AKA/acidosis, beta sher withdrawal. ABG pending. Patient treated with Lasix , Coreg, aspirin, and lisinopril in the ED. Patient's previous pancytopenia secondary to alcohol abuse has improved which is consistent with patient's history of alcohol cessation 1 month. No tremors on exam. Hospitalist aware for admission. - Differential Diagnosis chf, pulmonary embolism, pulmonary edema, [place], stable angina, AKA Critical Care Time: No Critical care attestation.: If time is entered above; I have spent that time in minutes in the direct care of this critically ill patient, excluding procedure time. ED Disposition Clinical Impression: Acute exacerbation of CHF (congestive heart failure), HTN (hypertension), Non- compliance, Tachycardia Disposition: OP ADMIT IP TO THIS HOSP Is pt being admited?: Yes Does the pt Need Aspirin: Yes Condition: Stable Time of Disposition: 00:49 (Dr troncoso/hospitalist)
[2016-12-06 01:09] LABS: ISTAT Base Excess -10; ISTAT DEVICE 0; ISTAT HCO3 14.3; ISTAT PCO2 22.3 (35-45); ISTAT PH 7.413 (7.35-7.45); ISTAT PO2 77 (80-105); ISTAT SO2 96; ISTAT TCO2 15
--- NOTE | 2016-12-06 01:20 | History and Physical Report ---
History of Present Illness Date of examination: 12/06/16 Date of admission: 12/06/16 Chief complaint: Shortness of breath History of present illness: Dizziness 46-year-old with history of chronic systolic heart failure hypertension and cardiomyopathy. He presents with shortness of breath for 3 days Past History Past Medical History: heart failure (chronic systolic), hypertension, other ( medical non compliance) Past Surgical History: No surgical history Social history: single, lives with family, alcohol abuse (Quit alcohol 1 month ago). denies: smoking Family history: hypertension Medications and Allergies Allergies Allergy/AdvReac Type Severity Reaction Status Date / Time No Known Allergies Allergy Verified 10/29/16 17:29 Home Medications Medication Instructions Recorded Confirmed Last Taken Type Aspirin [Aspirin BABY CHEW TAB] 81 mg PO QDAY #30 tab.chew 10/31/16 Unknown Rx Carvedilol [Coreg] 3.125 mg PO BID #60 tablet 10/31/16 Unknown Rx Furosemide [Lasix TAB] 80 mg PO QDAY #30 tablet 10/31/16 Unknown Rx Lisinopril [Zestril] 40 mg PO DAILY #30 10/31/16 10/30/16 Unknown Rx Review of Systems All systems: negative (No headache, no fever, no abdominal pain. No chest pain. All systems reviewed and are negative) Exam - Physical Exam Narrative exam: General appearance: not in acute distress, HEENT: normocephalic, atraumatic, Neck : supple, no JVD Lungs: Bilateral basal rales, no wheeze Heart :S1 and S2 regular, tachycardia, no murmurs, no gallop Abdomen: soft, non-tender, non-distended, normal bowel sounds Extremities: No edema, no clubbing or cyanosis. Neuro : Awake, alert, oriented x 3, no focal neurological signs Psych : normal mood - Constitutional Vitals: Temp Pulse Resp BP Pulse Ox 98.7 F 117 H 22 185/117 97 12/05/16 23:50 12/06/16 00:44 12/06/16 00:44 12/06/16 00:44 12/06/16 00:44 Results - Labs CBC & Chem 7: 12/05/16 18:29 12/05/16 18:29 Labs: Abnormal lab results 12/05/16 12/05/16 12/05/16 Range/Units 18:29 18:29 18:29 RBC 3.31 L (3.65-5.03) M/mm3 MCV 110 H (84-94) fl MCH 36 H (28-32) pg [place] % (Auto) 8.4 H (0.0-7.3) % Seg Neutrophils % 74.1 H (40.0-70.0) % POC ABG pCO2 (35-45) POC ABG pO2 (80-105) Carbon Dioxide 13 L (22-30) mmol/L BUN 21 H (9-20) mg/dL AST 59 H (5-40) units/L NT-Pro-B Natriuret Pep 79908 H (0-450) pg/mL Albumin 3.7 L (3.9-5) g/dL 12/06/16 Range/Units 01:02 RBC (3.65-5.03) M/mm3 MCV (84-94) fl MCH (28-32) pg [place] % (Auto) (0.0-7.3) % Seg Neutrophils % (40.0-70.0) % POC ABG pCO2 22.3 L (35-45) POC ABG pO2 77 L (80-105) Carbon Dioxide (22-30) mmol/L BUN (9-20) mg/dL AST (5-40) units/L NT-Pro-B Natriuret Pep (0-450) pg/mL Albumin (3.9-5) g/dL Assessment and Plan Acute on chronic systolic heart failure. Admit to telemetry. Patient was admitted here last month had Echo showed EF 20-25%, dilated cardiomyopathy. He is noncompliant and ran out of Lasix for 3 days. Give Lasix IV 40 mg every 12. Resume Coreg at a higher dose 6.25 mg twice daily. Consult cardiology. Hypertensive urgency. Blood pressure elevated. Add Norvasc 5 mg by mouth daily , to Coreg, Lisinopril. Hydralazine IV when necessary Dilated cardiomyopathy with EF 20-25%. Medical noncompliance DVT prophylaxis with Heparin subcut FULL CODE STATUS
[2016-12-06] MEDS ORDERED: MORPHINE IV PRN (01:22)
[2016-12-06] MEDS ORDERED: ZOFRAN IV PRN ×2 (01:22→14:13)
[2016-12-06] MEDS ORDERED: DULCOLAX PR PRN (01:22)
[2016-12-06] MEDS ORDERED: TYLENOL PO PRN (01:22)
[2016-12-06] MEDS ORDERED: NITROSTAT SL PRN (01:30)
[2016-12-06] MEDS: APRESOLINE IV PRN ×2 (01:57→02:54)
[2016-12-06] MEDS: NORVASC PO SCH ×2 (03:53→10:47)
[2016-12-06] MEDS: HEPARIN SUB-Q SCH ×3 (05:40→22:47)
[2016-12-06] MEDS: LASIX IV SCH ×2 (05:40→18:42)
--- NOTE | 2016-12-06 07:37 | XRay Report ---
CHEST 2 VIEWS INDICATION: Dyspnea. COMPARISON: 10/30/2016 FINDINGS: Frontal and lateral chest radiographs again demonstrate mild cardiomegaly. Stable limited inspiration with bronchovascular prominence centrally and towards the lung bases with slight increased air space opacities developing, greatest left lower lung/retrocardiac. Slight cephalization also developing. No large pleural effusions however. Lateral view demonstrates motion artifact and mild thoracic spine degenerative spurring. CONCLUSION: Slight interval radiographic worsening with pulmonary vascular congestion/redistribution suspected. Cardiomegaly again noted. Please correlate. Thank you for the opportunity to participate in this patient's care.
--- NOTE | 2016-12-06 09:19 | Admit Criteria Form ---
Admission Criteria Documentation: HEART FAILURE: COMMON COMPLICATIONS Clinical Indications for Inpatient Care (Place 'X' for any and all applicable criteria): Ongoing inpatient care may be indicated for heart failure with ANY ONE of the following (1)(2)(3)(4)(5): [ ]I. Ongoing need for care for primary condition requiring frequent therapy adjustments because of changes in cardiac function (eg, drug dosage changes for drugs that are renally metabolized) [ ]II. New-onset heart failure [ ]III. Heart failure with decreased urine output not responsive to attempts to optimize volume status [ ]IV. Acute cardiac ischemia causing or associated with failure [X]V. Complications of heart failure, including ANY ONE of the following: [ ]a) Pericardial effusion [ ]b) Symptomatic pleural effusion [ ]c) O2 saturation <90% or PO2 < 60 mm Hg (8.0 kPa) on room air or require baseline supplemental O2 [X ]d) Tachypnea [X]e) Dyspnea [ ]f) Syncope [ ]g) Change in mental status [ ]h) Acute renal insufficiency that is severe (reduction of more than 50% in estimated glomerular filtration rate from baseline) or progressive reduction of more than 25% in estimated glomerular filtration rate from baseline, with creatinine continuing to rise) [ ]i) Hemodynamic instability [ ]j) Anasarca [ ]k) Clinically significant metabolic abnormalities due to heart failure (eg, new-onset metabolic acidosis) Extended stay beyond goal length of stay for primary condition may be needed until ALL of the following are present(1)(3): [ ]a) Stable and effective diuretic regimen established (or patient on stable dialysis regimen if in chronic renal failure) [ ]b) Breathing comfortably at rest [ ]c) Saturation of arterial oxygen greater than 90% or at acceptable baseline [ ]d) Pulmonary edema absent or improved [ ]e) Hemodynamic stability [ ]f) Volume status acceptable on oral medication [ ]g) Peripheral or sacral edema absent or improved [ ]h) Renal function stable and manageable at a lower level of care [ ]i) Complications (eg, pleural effusion) resolved or manageable at a lower level of care [ ]j) Patient or caregiver has received written discharge instructions or educational material addressing activity level, diet, discharge medications, follow-up appointment, weight monitoring, and what to do if symptoms worsen The original [employer] content created by [employer] has been revised. The portions of the content which have been revised are identified through the use of italic text or in bold, and [facility] has neither reviewed nor approved the modified material.All other unmodified content is copyright [facility]. Please see references footnoted in the original [facility] edition 2016 Admission Criteria Met: Yes
[2016-12-06] MEDS: ZESTRIL PO SCH (10:43)
[2016-12-06] MEDS: COREG PO SCH ×2 (10:43→22:48)
[2016-12-06] MEDS: BABY ASPIRIN PO SCH (10:43)
[2016-12-06] MEDS ORDERED: PNEUMOVAX 23 IM ONE (12:00)
--- NOTE | 2016-12-06 13:18 | Consultation ---
History of Present Illness Consult date: 12/06/16 Consult reason: congestive heart failure History of present illness: This is a 46yr old male with a history of Nonischemic cardiomyopathy, alcohol abuse and hypertension whom is admitted with CHF exacerbation secondary to noncompliance with medications and dietary restrictions. Patient reports his last cardiac workup was at [facility] a year ago. He has a stress thallium and was told normal. A month ago, at this hospital, an echocardiogram showed an LV ejection fraction 20-25%. He denies chest pain. His chest x-ray reports vascular congestion. Cardiology consultation requested for CHF exacerbation. Past History Past Medical History: heart failure, hypertension, other (medical non compliance ) Past Surgical History: No surgical history Social history: single, lives with family, alcohol abuse (Quit alcohol 1 month ago). denies: smoking Family history: hypertension Medications and Allergies Allergies Allergy/AdvReac Type Severity Reaction Status Date / Time No Known Allergies Allergy Verified 10/29/16 17:29 Home Medications Medication Instructions Recorded Confirmed Last Taken Type Aspirin [Aspirin BABY CHEW TAB] 81 mg PO QDAY #30 tab.chew 10/31/16 Unknown Rx Carvedilol [Coreg] 3.125 mg PO BID #60 tablet 10/31/16 Unknown Rx Furosemide [Lasix TAB] 80 mg PO QDAY #30 tablet 10/31/16 Unknown Rx Lisinopril [Zestril] 40 mg PO DAILY #30 10/31/16 10/30/16 Unknown Rx Active Meds: Active Medications Acetaminophen (Tylenol) 650 mg PO Q4H PRN PRN Reason: Pain MILD(1-3)/Fever >100.5/ERWIN Amlodipine Besylate (Norvasc) 5 mg PO QDAY [facility] Last Admin: 12/06/16 10:47 Dose: 5 mg Aspirin (Baby Aspirin) 81 mg PO QDAY [facility] Last Admin: 12/06/16 10:43 Dose: 81 mg Bisacodyl (Dulcolax) 10 mg CO QDAY PRN PRN Reason: Constipation unrelieved by MOM Carvedilol (Coreg) 6.25 mg PO BID [facility] Last Admin: 12/06/16 10:43 Dose: 6.25 mg Furosemide (Lasix) 40 mg IV BID@0600,1800 [facility] Last Admin: 12/06/16 05:40 Dose: 40 mg Heparin Sodium (Porcine) (Heparin) 5,000 unit SUB-Q Q8HR [facility] Last Admin: 12/06/16 05:40 Dose: 5,000 unit Hydralazine HCl (Apresoline) 10 mg IV Q4H PRN PRN Reason: SBP>170 or DBP>105 Last Admin: 12/06/16 02:54 Dose: 10 mg Lisinopril (Zestril) 40 mg PO DAILY [facility] Last Admin: 12/06/16 10:43 Dose: 40 mg Morphine Sulfate (Morphine) 2 mg IV Q4H PRN PRN Reason: Pain, Moderate (4-6) Nitroglycerin (Nitrostat) 0.4 mg SL .Q5MIN PRN PRN Reason: Chest Pain Ondansetron HCl (Zofran) 4 mg IV Q8H PRN PRN Reason: N/V unrelieved by Reglan Physical Examination Vital Signs Temp Pulse Resp Pulse Ox 98.3 F 118 H 24 97 12/05/16 18:20 12/05/16 18:20 12/05/16 18:20 12/05/16 18:20 General appearance: no acute distress HEENT: Positive: PERRL Neck: Positive: trachea midline Cardiac: Positive: Reg Rate and Rhythm Lungs: Positive: Decreased Breath Sounds Neuro: Positive: Grossly Intact Results 12/05/16 18:29 12/05/16 18:29 Assessment and Plan Systolic heart failure s/t noncompliance with medications and dietary restrictions Nonischemic cardiomyopathy EF 20-25% on echo 10/2016 HTN Recommendations: Optimal BP management. Medical therapy for decompensated heart failure including diuretics, afterload reduction and beta blockers.
--- NOTE | 2016-12-06 14:07 | Progress Note ---
Assessment and Plan Assessment and plan: The patient is a 46-year-old man with history of CHF, EF 20-25 percent, nonischemic cardio myopathy, alcohol abuse and hypertension who presents with shortness of breath. Patient admits running out of his medication including Lasix since Sunday then he developed orthopnea. Chest x-ray shows worsening pulmonary vascular congestion. -Acute on chronic systolic heart failure due to noncompliance: Counseling done, patient is near his baseline diuresing well, patient has not established a primary care provider. I gave him [facility] of phone number and told him the Dial and get him the first available appointment so he can get refills on his medication. Patient voiced understanding and agreed. -Hypertensive urgency/accelerated hypertension due to noncompliance: Restart his blood pressure medications -Alcohol abuse: Thiamine and folate, counseling done -DVT prophylaxis: Subcutaneous heparin History Interval history: Patient seen and examined. Follow up on sob, resolved. Overnight uneventful. No cp, sob, n/v or severe headaches. Imaging, old records, testing, labs, nursing notes reviewed. Hospitalist Physical - Physical exam Narrative exam: GEN: WDWN, NAD, AWAKE, ALERT, ORIENTATED x 3 CVS: Regular tachycardic, NORMAL S1S2 LUNGS/CHEST: Bibasilar crackles, NORMAL CHEST EXPANSION B, GOOD AIR ENTRY B ABD: SOFT, NTND, GBS, NO REBOUND OR GUARDING NEURO: CN 2-12 GROSSLY INTACT, NO FOCAL DEFICITS PSY: CALM - Constitutional Vitals: Temp Pulse Resp BP Pulse Ox 98.5 F 103 H 20 157/90 95 12/06/16 12:00 12/06/16 12:00 12/06/16 12:00 12/06/16 12:00 12/06/16 12:00 General appearance: Present: no acute distress Results - Labs CBC & Chem 7: 12/05/16 18:29 12/05/16 18:29 Labs: Laboratory Last Values WBC 7.7 K/mm3 (4.5-11.0) 12/05/16 18:29 RBC 3.31 M/mm3 (3.65-5.03) L 12/05/16 18:29 Hgb 12.0 gm/dl (11.8-15.2) 12/05/16 18:29 Hct 36.4 % (35.5-45.6) 12/05/16 18: MCV 110 fl (84-94) H 12/05/16 18:29 MCH 36 pg (28-32) H 12/05/16 18: MCHC 33 % (32-34) 12/05/16 18: RDW 14.8 % (13.2-15.2) 12/05/16 18:29 Plt Count 293 K/mm3 (140-440) 12/05/16 18: Lymph % (Auto) 15.9 % (13.4-35.0) 12/05/16 18:29 Marathon % (Auto) 8.4 % (0.0-7.3) H 12/05/16 18: Eos % (Auto) 0.5 % (0.0-4.3) 12/05/16 18: Baso % (Auto) 1.1 % (0.0-1.8) 12/05/16 18: Lymph # 1.2 K/mm3 (1.2-5.4) 12/05/16 18: Marathon # 0.6 K/mm3 (0.0-0.8) 12/05/16 18: Eos # 0.0 K/mm3 (0.0-0.4) 12/05/16 18: Baso # 0.1 K/mm3 (0.0-0.1) 12/05/16 18: Seg Neutrophils % 74.1 % (40.0-70.0) H 12/05/16 18: Seg Neutrophils # 5.7 K/mm3 (1.8-7.7) 12/05/16 18:29 POC ABG pH 7.413 (7.35-7.45) 12/06/16 01:02 POC ABG pCO2 22.3 (35-45) L 12/06/16 01:02 POC ABG pO2 77 (80-105) L 12/06/16 01:02 POC ABG HCO3 14.3 12/06/16 01:02 POC ABG Total CO2 15 12/06/16 01:02 POC ABG O2 Sat 96 12/06/16 01:02 POC ABG Base Excess -10 12/06/16 01:02 FiO2 21 % 12/06/16 01:02 Sodium 139 mmol/L (137-145) 12/05/16 18:29 Potassium 4.2 mmol/L (3.6-5.0) 12/05/16 18:29 Chloride 101.8 mmol/L (98-107) 12/05/16 18:29 Carbon Dioxide 13 mmol/L (22-30) L 12/05/16 18:29 Anion Gap 28 mmol/L 12/05/16 18:29 BUN 21 mg/dL (9-20) H 12/05/16 18:29 Creatinine 0.9 mg/dL (0.8-1.5) 12/05/16 18:29 Estimated GFR > 60 ml/min 12/05/16 18:29 BUN/Creatinine Ratio 23.33 % 12/05/16 18:29 Glucose 90 mg/dL (75-100) 12/05/16 18: Calcium 9.3 mg/dL (8.4-10.2) 12/05/16 18:29 Total Bilirubin 0.70 mg/dL (0.1-1.2) 12/05/16 18:29 AST 59 units/L (5-40) H 12/05/16 18:29 ALT 35 units/L (7-56) 12/05/16 18:29 Alkaline Phosphatase 85 units/L (35-129) 12/05/16 18:29 NT-Pro-B Natriuret Pep 11231 pg/mL (0-450) H 12/05/16 18:29 Total Protein 8.1 g/dL (6.3-8.2) 12/05/16 18:29 Albumin 3.7 g/dL (3.9-5) L 12/05/16 18:29 Albumin/Globulin Ratio 0.8 % 12/05/16 18:29
[2016-12-06] MEDS ORDERED: NORMODYNE IV PRN (14:13)
[2016-12-06] MEDS: VITAMIN B-1 PO SCH (15:35)
[2016-12-06] MEDS: FOLVITE PO SCH (15:36)
[2016-12-07] MEDS: LASIX IV SCH (05:52)
[2016-12-07] MEDS: HEPARIN SUB-Q SCH ×2 (05:53→14:25)
[2016-12-07 08:41] LABS: Basophils % (Auto) 0.8 % (0.0-1.8); Eosinophils % (Auto) 2.8 % (0.0-4.3); Hematocrit 38.8 % (35.5-45.6); Hemoglobin 13.3 gm/dl (11.8-15.2); Mean Corpuscular HGB Conc 34 % (32-34); Mean Corpuscular Hemoglobin 37 pg (28-32); Mean Corpuscular Volume 107 fl (84-94); Platelet Count 305 K/mm3 (140-440); Red Blood Count 3.63 M/mm3 (3.65-5.03); Red Cell Distribution Width 15.2 % (13.2-15.2); White Blood Count 9.5 K/mm3 (4.5-11.0)
[2016-12-07 08:53] LABS: Blood Urea Nitrogen 23 mg/dL (9-20); Calcium 9.2 mg/dL (8.4-10.2); Carbon Dioxide 21 mmol/L (22-30); Chloride 99.4 mmol/L (98-107); Glucose 102 mg/dL (75-100); Potassium 3.4 mmol/L (3.6-5.0); Sodium 137 mmol/L (137-145)
[2016-12-07 08:54] LABS: Anion Gap 20 mmol/L
[2016-12-07] MEDS: FOLVITE PO SCH (09:27)
[2016-12-07] MEDS: VITAMIN B-1 PO SCH (09:27)
[2016-12-07] MEDS: ZESTRIL PO SCH (09:27)
[2016-12-07] MEDS: BABY ASPIRIN PO SCH (09:27)
[2016-12-07] MEDS: NORVASC PO SCH (09:28)
[2016-12-07] MEDS: COREG PO SCH (09:28)
[2016-12-07 09:36] VITALS: BP 132/86
--- NOTE | 2016-12-07 09:51 | Progress Note ---
Assessment and Plan Systolic heart failure s/t noncompliance with medications and dietary restrictions Nonischemic cardiomyopathy EF 20-25% on echo 10/2016 HTN Alcohol abuse Recommendations: Medical therapy systolic heart failure including diuretics, afterload reduction and beta blockers. Advised compliance with meds and fluid restriction. Subjective Date of service: 12/07/16 Interval history: Patient reports he is feeling better. Objective Vital Signs Temp Pulse Pulse Pulse Resp Resp BP 12/07/16 09:35 98.6 F 90 18 12/07/16 04:00 98.3 F 91 H 20 12/07/16 01:05 80 12/07/16 00:00 98.4 F 96 H 20 12/06/16 22:48 94 H 101/56 12/06/16 21:48 97.9 F 94 H 20 12/06/16 20:53 94 H 18 12/06/16 20:18 12/06/16 16:52 98.3 F 94 H 20 12/06/16 16:35 18 12/06/16 15:35 18 12/06/16 12:00 98.5 F 103 H 20 12/06/16 10:59 22 12/06/16 10:50 108 H 22 BP Pulse Ox 12/07/16 09:35 132/86 12/07/16 04:00 157/93 96 12/07/16 01:05 12/07/16 00:00 123/78 98 12/06/16 22:48 12/06/16 21:48 101/56 12/06/16 20:53 96 12/06/16 20:18 98 12/06/16 16:52 140/78 95 12/06/16 16:35 12/06/16 15:35 12/06/16 12:00 157/90 95 12/06/16 10:59 12/06/16 10:50 - Physical Examination General: No Apparent Distress HEENT: Positive: PERRL Neck: Positive: trachea midline Cardiac: Positive: Reg Rate and Rhythm - Labs and Meds CBC 12/07/16 Range/Units 08:17 WBC 9.5 (4.5-11.0) K/mm3 RBC 3.63 L (3.65-5.03) M/mm3 Hgb 13.3 (11.8-15.2) gm/dl Hct 38.8 (35.5-45.6) % Plt Count 305 (140-440) K/mm3 Lymph # 1.6 (1.2-5.4) K/mm3 Sunflower # 0.7 (0.0-0.8) K/mm3 Eos # 0.3 (0.0-0.4) K/mm3 Baso # 0.1 (0.0-0.1) K/mm3 Comprehensive Metabolic Panel 12/07/16 Range/Units 08:17 Sodium 137 (137-145) mmol/L Potassium 3.4 L (3.6-5.0) mmol/L Chloride 99.4 (98-107) mmol/L Carbon Dioxide 21 L D (22-30) mmol/L BUN 23 H (9-20) mg/dL Creatinine 1.0 (0.8-1.5) mg/dL Glucose 102 H (75-100) mg/dL Calcium 9.2 (8.4-10.2) mg/dL
[2016-12-07] MEDS ORDERED: K-DUR PO ONE (13:31)
[2016-12-07] MEDS ORDERED: MAGNESIUM SULFATE 2GM/50ML 2 GM/50 ML BAG IV ONE (13:31)
--- NOTE | 2016-12-07 13:41 | Discharge Summary ---
Providers - Providers Date of Admission: 12/06/16 01: Date of discharge: 12/07/16 Attending physician: HIREN RAZO Primary care physician: SECTION BEAMER Hospitalization Condition: Stable Hospital course: The patient is a 46-year-old man with a history of CHF, EF 20-25%, nonischemic cardiomyopathy, alcohol abuse and hypertension who presents with shortness of breath. Patient admits running out of his medication including Lasix since Sunday then he developed orthopnea, sob. Chest x-ray shows worsening pulmonary vascular congestion. -Acute on chronic systolic heart failure due to noncompliance: Counseling done, patient is near his baseline diuresing well, patient has not established a primary care provider. I gave him [facility] of phone number and told him the Dial and get him the first available appointment so he can get refills on his medication. Patient voiced understanding and agreed. -Hypertensive urgency/accelerated hypertension due to noncompliance: Restart his blood pressure medications -Alcohol abuse: Thiamine and folate, counseling done -Electrolyte Imbalances with hypokalemia and hypomagnesemia: Replace -DVT prophylaxis: Subcutaneous heparin per Cardiology, Dr. Sadler: "Assessment and Plan Systolic heart failure s/t noncompliance with medications and dietary restrictions Nonischemic cardiomyopathy EF 20-25% on echo 10/2016 HTN Alcohol abuse Recommendations: Medical therapy systolic heart failure including diuretics, afterload reduction and beta blockers. Advised compliance with meds and fluid restriction. Medical therapy for nonischemic cardiomyopathy and chronic systolic heart failure. Strict low-salt diet, and alcohol cessation." Disposition: DC- TO HOME OR SELFCARE Time spent for discharge: 37 minutes Core Measure Documentation - Palliative Care Palliative Care/ Comfort Measures: Not Applicable - Core Measures Any of the following diagnoses?: heart failure - VTE Discharge Requirements Deep Vein Thrombosis/Pulmonary Embolism Present on Admission: No Has pt received <5 days of overlap therapy or INR<2.0: No Anticoagulant overlap therapy prescribed at discharge: No Contraindication No Overlap Therapy order at DC: Not Indicated - Heart Failure Discharge Requirements SERA/ARB for LVSD if EF <40%: Yes Beta sher at discharge: Yes Exam - Physical Exam Narrative exam: GEN: WDWN, NAD, AWAKE, ALERT, ORIENTATED x 3 CVS: Regular tachycardic, NORMAL S1S2 LUNGS/CHEST: Bibasilar crackles much better, NORMAL CHEST EXPANSION B, GOOD AIR ENTRY B ABD: SOFT, NTND, GBS, NO REBOUND OR GUARDING NEURO: CN 2-12 GROSSLY INTACT, NO FOCAL DEFICITS PSY: CALM - Constitutional Vitals: Temp Pulse Resp BP Pulse Ox 98.6 F 90 18 132/86 96 12/07/16 09:35 12/07/16 09:35 12/07/16 09:35 12/07/16 09:35 12/07/16 10:00 Plan Activity: other (no strenous activites until cleared by cardiology) Diet: low salt Follow up with: LILI RODRIGUEZ MD [Primary Care Provider] - 7 Days VIKKI SADLER MD [Staff Physician] - 7 Days Prescriptions: amLODIPine [Norvasc] 5 mg PO QDAY #30 tablet Carvedilol [Coreg] 6.25 mg PO BID #60 tablet Furosemide [Lasix TAB] 40 mg PO BID #60 tablet Lisinopril [Zestril] 40 mg PO DAILY #30 tablet Magnesium Oxide 400 mg PO BIDAC #60 tablet Nitroglycerin [Nitrostat] 0.4 mg SL .Q5MIN PRN #10 tablet PRN Reason: Chest Pain Potassium Chloride [K-Dur] 20 meq PO BID #60 tab
[2016-12-07] MEDS ORDERED: NACL 0.9% 250ML 250 ML ONE (14:09)
== END 2016-12-07 15:48 | disposition home or self-care (01) | DRG 293 ==
LOC: ED 18:05 → 4A 12-06 01:22
PROVIDERS: ADMIT Internal Medicine; ATTEND Internal Medicine
PROC: 4A033R1 Measurement of Arterial Saturation, Peripheral, Percutaneous Approach (ICD-10-PCS; principal; 2016-12-06)
DX: I11.0 Hypertensive heart disease with heart failure (principal); I16.0 Hypertensive urgency; I50.23 Acute on chronic systolic (congestive) heart failure; F10.10 Alcohol abuse, uncomplicated; F41.9 Anxiety disorder, unspecified; F32.9 Major depressive disorder, single episode, unspecified; J44.9 Chronic obstructive pulmonary disease, unspecified; E87.6 Hypokalemia; E83.42 Hypomagnesemia; I42.9 Cardiomyopathy, unspecified; Z91.14 Patient's other noncompliance with medication regimen; Z91.11 Patient's noncompliance with dietary regimen; Z71.89 Other specified counseling; Z82.49 Family history of ischemic heart disease and other diseases of the circulatory system; Z71.41 Alcohol abuse counseling and surveillance of alcoholic
CPT/HCPCS: 36415; 71020; 80048; 80053; 82803; 83735; 83880; 85025; 85027; 90732; 93005; 93010; 96374; J0360; J1644; J1940; J3475; J7050

== ENCOUNTER 2017-09-15 19:39 | Inpatient (IN) | payer SELFPAY ==
--- NOTE | 2017-09-15 22:23 | Cat Scan Report ---
FINAL REPORT PROCEDURE: CT HEAD/BRAIN WO CON TECHNIQUE: Computerized tomography of the head was performed without contrast material. HISTORY: weak, inability to walk COMPARISON: No prior studies are available for comparison. FINDINGS: Skull and scalp: Normal. Paranasal sinuses: An air-fluid level is noted in the left maxillary sinus. Mucosal thickening is noted involving left anterior ethmoid air cells. There is complete opacification of left frontal sinus.. Ventricles and subarachnoid spaces: Normal. Cerebrum: Irregular ill-defined hypodense lesion is noted involving the right posterior temporal region measuring 1.1 x 2.9 centimeters. Ill-defined hypodensities are also noted in left parietal lobe measuring about 1 centimeter.. An acute intra-axial or extra-axial hemorrhage is not identified.. Cerebellum and brainstem: Ill-defined hypodense lesions measuring about 1 centimeter are noted in bilateral cerebellar hemispheres.. Vasculature: Normal. Comments: There is opacification of right mastoid air cells. There is partial opacification of left mastoid air cells with the 1 of them demonstrating what appears to be an air-fluid level.. IMPRESSION: Hypodense lesions involving posterior right temporal lobe, bilateral parietal lobes and bilateral cerebellar hemispheres most likely represent subacute versus chronic infarcts. MRI with diffusion-weighted imaging is recommended for further evaluation. Acute sinusitis left maxillary sinus. Chronic left frontal and ethmoid sinusitis Bilateral mastoiditis.
[2017-09-15 22:30] LABS: Bilirubin,Urine NEG (Negative); Blood,Urine NEG (Negative); Color,Urine Yellow (Yellow); Protein,Urine <15 mg/dL mg/dL (Negative)
[2017-09-15 22:30] LABS: Mean Corpuscular HGB Conc 31 % (32-34); Mean Corpuscular Hemoglobin 40 pg (28-32); Platelet Count 296 K/mm3 (140-440); Red Blood Count 0.94 M/mm3 (3.65-5.03)
[2017-09-15 22:50] LABS: Albumin 3.1 g/dL (3.9-5); Calcium 8.2 mg/dL (8.4-10.2)
[2017-09-15 23:02] LABS: Hemoglobin 3.7 gm/dl (11.8-15.2)
[2017-09-15 23:03] LABS: Hematocrit 12.2 % (35.5-45.6); Mean Corpuscular Volume 129 fl (84-94); Red Cell Distribution Width 28.7 % (13.2-15.2)
[2017-09-15 23:19] LABS: Basophils % (Manual) 0 % (0.0-1.8); Myelocytes # (Manual) 0.1 K/mm3; Total Cells Counted 100
[2017-09-15 23:20] LABS: Anisocytosis 1+; Macrocytosis 3+; Platelet Estimate Consistent w Auto
[2017-09-15] MEDS ORDERED: NACL 0.9% 500 ML 500 ML IV ONE (23:20)
--- NOTE | 2017-09-15 23:45 | Emergency Department Report ---
- General Chief complaint: Weakness Stated complaint: WEAKNESS Time Seen by Provider: 09/15/17 20:46 Source: family Mode of arrival: Wheelchair Limitations: Physical Limitation - History of Present Illness Initial comments: Patient is a 46-year-old Male with past medical history of 1-2 weeks of weakness. Patient has a history of congestive heart failure COPD hypertension and states that for S week and a half he's been having difficulties when he stands. Patient states his legs are getting weak to the point where he can't get around. Patient denies any chest pain shortness of breath nausea vomiting or diarrhea at this time. Patient is a poor historian and has to ask the meaning of questions at times. - Related Data Previous Rx's Medication Instructions Recorded Last Taken Type Aspirin [Aspirin BABY CHEW TAB] 81 mg PO QDAY #30 tab.chew 10/31/16 Unknown Rx Acetaminophen [Acetaminophen TAB] 325 mg PO Q4H PRN #30 tablet 12/07/16 Unknown Rx Carvedilol [Coreg] 6.25 mg PO BID #60 tablet 12/07/16 Unknown Rx Furosemide [Lasix TAB] 40 mg PO BID #60 tablet 12/07/16 Unknown Rx Lisinopril [Zestril] 40 mg PO DAILY #30 tablet 12/07/16 Unknown Rx Magnesium Oxide 400 mg PO BIDAC #60 tablet 12/07/16 Unknown Rx Nitroglycerin [Nitrostat] 0.4 mg SL .Q5MIN PRN #10 tablet 12/07/16 Unknown Rx Potassium Chloride [K-Dur] 20 meq PO BID #60 tab 12/07/16 Unknown Rx Thiamine [Vitamin B-1] 100 mg PO QDAY #30 tablet 12/07/16 Unknown Rx amLODIPine [Norvasc] 5 mg PO QDAY #30 tablet 12/07/16 Unknown Rx Allergies Allergy/AdvReac Type Severity Reaction Status Date / Time No Known Allergies Allergy Verified 10/29/16 17:29 ED Review of Systems ROS: Stated complaint: WEAKNESS Other details as noted in HPI Comment: All other systems reviewed and negative ED Past Medical Hx - Past Medical History Hx Hypertension: Yes Hx Congestive Heart Failure: Yes Hx Psychiatric Treatment: Yes (ANXIETY / DEPRESSION) Hx COPD: Yes Hx HIV: No Additional medical history: HARD OF HEARING - Surgical History Past Surgical History?: No - Social History Smoking Status: Never Smoker Substance Use Type: None - Medications Home Medications: Home Medications Medication Instructions Recorded Confirmed Last Taken Type Aspirin [Aspirin BABY CHEW TAB] 81 mg PO QDAY #30 tab.chew 10/31/16 Unknown Rx Acetaminophen [Acetaminophen TAB] 325 mg PO Q4H PRN #30 tablet 12/07/16 Unknown Rx Carvedilol [Coreg] 6.25 mg PO BID #60 tablet 12/07/16 Unknown Rx Furosemide [Lasix TAB] 40 mg PO BID #60 tablet 12/07/16 Unknown Rx Lisinopril [Zestril] 40 mg PO DAILY #30 tablet 12/07/16 Unknown Rx Magnesium Oxide 400 mg PO BIDAC #60 tablet 12/07/16 Unknown Rx Nitroglycerin [Nitrostat] 0.4 mg SL .Q5MIN PRN #10 tablet 12/07/16 Unknown Rx Potassium Chloride [K-Dur] 20 meq PO BID #60 tab 12/07/16 Unknown Rx Thiamine [Vitamin B-1] 100 mg PO QDAY #30 tablet 12/07/16 Unknown Rx amLODIPine [Norvasc] 5 mg PO QDAY #30 tablet 12/07/16 Unknown Rx ED Physical Exam - General Limitations: Physical Limitation General appearance: alert, in no apparent distress - Head Head exam: Present: atraumatic, normocephalic - Eye Eye exam: Present: normal appearance - ENT ENT exam: Present: mucous membranes moist - Neck Neck exam: Present: normal inspection - Respiratory Respiratory exam: Present: normal lung sounds bilaterally. Absent: respiratory distress, wheezes, rales, rhonchi - Cardiovascular Cardiovascular Exam: Present: regular rate, normal rhythm. Absent: systolic murmur, diastolic murmur, rubs, gallop - GI/Abdominal GI/Abdominal exam: Present: soft, normal bowel sounds. Absent: distended, tenderness, guarding, rebound - Rectal Rectal exam: Present: heme (+) stool, black stool - Extremities Exam Extremities exam: Present: pedal edema - Back Exam Back exam: Present: normal inspection - Neurological Exam Neurological exam: Present: alert, oriented X3 - Psychiatric Psychiatric exam: Present: normal affect, normal mood - Skin Skin exam: Present: warm, dry, intact, normal color. Absent: rash ED Course Vital Signs 09/15/17 09/15/17 19:57 20:54 Temperature 98.8 F Pulse Rate 107 H Respiratory 20 16 Rate Blood Pressure 120/60 O2 Sat by Pulse 100 97 Oximetry ED Medical Decision Making - Lab Data Result diagrams: 09/15/17 22:33 09/15/17 22:33 Lab Results 09/15/17 09/15/17 09/15/17 Range/Units 22:15 22:33 22:33 WBC 12.0 H (4.5-11.0) K/mm3 RBC 0.94 L (3.65-5.03) M/mm3 Hgb 3.7 L* (11.8-15.2) gm/dl Hct 12.2 L* (35.5-45.6) % MCV 129 H (84-94) fl MCH 40 H (28-32) pg MCHC 31 L (32-34) % RDW 28.7 H (13.2-15.2) % Plt Count 296 (140-440) K/mm3 Add Manual Diff Complete Total Counted 100 Seg Neuts % (Manual) 84.0 H (40.0-70.0) % Band Neutrophils % 0 % Lymphocytes % (Manual) 9.0 L (13.4-35.0) % Reactive Lymphs % (Man) 0 % Monocytes % (Manual) 5.0 (0.0-7.3) % Eosinophils % (Manual) 1.0 (0.0-4.3) % Basophils % (Manual) 0 (0.0-1.8) % Metamyelocytes % 0 % Myelocytes % 1.0 % Promyelocytes % 0 % Blast Cells % 0 % Nucleated RBC % Not Reportable Seg Neutrophils # Man 10.1 H (1.8-7.7) K/mm3 Band Neutrophils # 0.0 K/mm3 Lymphocytes # (Manual) 1.1 L (1.2-5.4) K/mm3 Abs React Lymphs (Man) 0.0 K/mm3 Monocytes # (Manual) 0.6 (0.0-0.8) K/mm3 Eosinophils # (Manual) 0.1 (0.0-0.4) K/mm3 Basophils # (Manual) 0.0 (0.0-0.1) K/mm3 Metamyelocytes # 0.0 K/mm3 Myelocytes # 0.1 K/mm3 Promyelocytes # 0.0 K/mm3 Blast Cells # 0.0 K/mm3 WBC Morphology Not Reportable Hypersegmented Neuts Not Reportable Hyposegmented Neuts Not Reportable Hypogranular Neuts Not Reportable Smudge Cells Not Reportable Toxic Granulation Not Reportable Toxic Vacuolation Not Reportable Dohle Bodies Not Reportable Pelger-Huet Anomaly Not Reportable Mack Rods Not Reportable Platelet Estimate Consistent w auto Clumped Platelets Not Reportable Plt Clumps, EDTA Not Reportable Large Platelets Not Reportable Giant Platelets Not Reportable Platelet Satelliting Not Reportable Plt Morphology Comment Not Reportable RBC Morphology Not Reportable Dimorphic RBCs Not Reportable Polychromasia Few Hypochromasia Not Reportable Poikilocytosis Not Reportable Anisocytosis 1+ Microcytosis Not Reportable Macrocytosis 3+ Spherocytes Not Reportable Pappenheimer Bodies Not Reportable Sickle Cells Not Reportable Target Cells Not Reportable Tear Drop Cells Not Reportable Ovalocytes Not Reportable Helmet Cells Not Reportable Jackson-[place] Bodies Not Reportable Haines Rings Not Reportable [place] Cells Not Reportable Bite Cells Not Reportable Crenated Cell Not Reportable Elliptocytes Not Reportable Acanthocytes (Spur) Not Reportable Rouleaux Not Reportable Hemoglobin C Crystals Not Reportable Schistocytes Not Reportable Malaria parasites Not Reportable Víctor Bodies Not Reportable Hem Pathologist Commnt No Sodium 140 (137-145) mmol/L Potassium 4.3 (3.6-5.0) mmol/L Chloride 100.5 (98-107) mmol/L Carbon Dioxide 20 L (22-30) mmol/L Anion Gap 24 mmol/L BUN 63 H (9-20) mg/dL Creatinine 2.0 H (0.8-1.5) mg/dL Estimated GFR 44 ml/min BUN/Creatinine Ratio 32 % Glucose 114 H (75-100) mg/dL Calcium 8.2 L (8.4-10.2) mg/dL Total Bilirubin 1.90 H (0.1-1.2) mg/dL AST 352 H (5-40) units/L ALT 124 H (7-56) units/L Alkaline Phosphatase 207 H (35-129) units/L NT-Pro-B Natriuret Pep 5770 H (0-450) pg/mL Total Protein 6.1 L (6.3-8.2) g/dL Albumin 3.1 L (3.9-5) g/dL Albumin/Globulin Ratio 1.0 % Urine Color Yellow (Yellow) Urine Turbidity Clear (Clear) Urine pH 5.0 (5.0-7.0) Ur Specific Mellen 1.014 (1.003-1.030) Urine Protein <15 mg/dl (Negative) mg/dL Urine Glucose (UA) Neg (Negative) mg/dL Urine Ketones Neg (Negative) mg/dL Urine Blood Neg (Negative) Urine Nitrite Neg (Negative) Urine Bilirubin Neg (Negative) Urine Urobilinogen 2.0 (<2.0) mg/dL Ur Leukocyte Esterase Neg (Negative) Urine WBC (Auto) 1.0 (0.0-6.0) /HPF Urine RBC (Auto) 2.0 (0.0-6.0) /HPF U Epithel Cells (Auto) < 1.0 (0-13.0) /HPF - EKG Data -: EKG Interpreted by Ar - EKG Data Interpretation: other (EKG shows sinus tachycardia 104 normal axis normal intervals and T-wave inversions in lateral leads and Q waves in leads [address] elevation or depressions, interpretation is 2027) - Medical Decision Making Patient is a 46-year-old black male with past medical history of CHF hypertension who is presenting with GI bleed. Patient's hemoglobin is markedly decreased. Patient also has some acute renal insufficiency secondary to his GI bleed. Patient will be transfused will be admitted to the hospital and Dr. Pillai with the hospitalist service thank you Critical Care Time: Yes Critical care time in (mins) excluding proc time.: 30 Critical care attestation.: If time is entered above; I have spent that time in minutes in the direct care of this critically ill patient, excluding procedure time. ED Disposition Clinical Impression: Acute renal insufficiency, Symptomatic anemia GI bleed Qualifiers: GI bleed type/associated pathology: melena Qualified Code(s): K92.1 - Melena Acute exacerbation of CHF (congestive heart failure) Qualifiers: Heart failure type: unspecified Qualified Code(s): I50.9 - Heart failure, unspecified Disposition: OP ADMIT IP TO THIS HOSP Is pt being admited?: Yes Does the pt Need Aspirin: No Condition: Serious Referrals: URIAH MENDEZ MD [Primary Care Provider] - 3-5 Days
--- NOTE | 2017-09-15 23:50 | History and Physical Report ---
History of Present Illness Date of examination: 09/15/17 History of present illness: 46-year-old man with a history of CHF, hypertension, depression, alcohol abuse comes emergency room complaining generalized weakness, difficulty ambulating. Also complaining of hematemesis, 2 episodes last week and 2 episodes of black stool. He takes ibuprofen 3 times a day over the last 5 years PAST MEDICAL HISTORY:CHF, hypertension, depression, alcohol abuse PAST SURGICAL HISTORY: None SOCIAL HISTORY: Drinks a lot of vodka, last drink was yesterday evening ,no tobacco, drugs FAMILY HISTORY: Hypertension Medications and Allergies Allergies Allergy/AdvReac Type Severity Reaction Status Date / Time No Known Allergies Allergy Verified 10/29/16 17:29 Home Medications Medication Instructions Recorded Confirmed Last Taken Type Aspirin [Aspirin BABY CHEW TAB] 81 mg PO QDAY #30 tab.chew 10/31/16 Unknown Rx Acetaminophen [Acetaminophen TAB] 325 mg PO Q4H PRN #30 tablet 12/07/16 Unknown Rx Carvedilol [Coreg] 6.25 mg PO BID #60 tablet 12/07/16 Unknown Rx Furosemide [Lasix TAB] 40 mg PO BID #60 tablet 12/07/16 Unknown Rx Lisinopril [Zestril] 40 mg PO DAILY #30 tablet 12/07/16 Unknown Rx Magnesium Oxide 400 mg PO BIDAC #60 tablet 12/07/16 Unknown Rx Nitroglycerin [Nitrostat] 0.4 mg SL .Q5MIN PRN #10 tablet 12/07/16 Unknown Rx Potassium Chloride [K-Dur] 20 meq PO BID #60 tab 12/07/16 Unknown Rx Thiamine [Vitamin B-1] 100 mg PO QDAY #30 tablet 12/07/16 Unknown Rx amLODIPine [Norvasc] 5 mg PO QDAY #30 tablet 12/07/16 Unknown Rx Exam - Physical Exam Narrative exam: Gen. appearance: Patient lying in bed, no apparent distress HEENT: Normocephalic, atraumatic, pupils equally round and reactive to light, extraocular movement intact, and no sclericterus,. No JVD or thyromegaly or nodule,neck supple, no carotid bruit ,mucous membranes moist, no exudate or erythema Heart: S1, S2, regular rate and rhythm Lungs: Clear to auscultation bilaterally, breathing comfortable Abdomen: Positive bowel sounds, nontender, nondistended, no organomegaly Extremity: Trace edema, no cyanosis, clubbing Skin: No rash, nodules, warm, dry Neuro: Oriented 3, cranial nerves II-12 intact, speech is fluent, motor and sensory intact - Constitutional Vitals: Temp Pulse Resp BP Pulse Ox 98.8 F 107 H 16 120/60 97 09/15/17 19:57 09/15/17 19:57 09/15/17 20:54 09/15/17 19:57 09/15/17 20:54 Results - Labs CBC & Chem 7: 09/15/17 22:33 09/15/17 22:33 Labs: Abnormal lab results 09/15/17 09/15/17 Range/Units 22:33 22:33 WBC 12.0 H (4.5-11.0) K/mm3 RBC 0.94 L (3.65-5.03) M/mm3 Hgb 3.7 L* (11.8-15.2) gm/dl Hct 12.2 L* (35.5-45.6) % MCV 129 H (84-94) fl MCH 40 H (28-32) pg MCHC 31 L (32-34) % RDW 28.7 H (13.2-15.2) % Seg Neuts % (Manual) 84.0 H (40.0-70.0) % Lymphocytes % (Manual) 9.0 L (13.4-35.0) % Seg Neutrophils # Man 10.1 H (1.8-7.7) K/mm3 Lymphocytes # (Manual) 1.1 L (1.2-5.4) K/mm3 Carbon Dioxide 20 L (22-30) mmol/L BUN 63 H (9-20) mg/dL Creatinine 2.0 H (0.8-1.5) mg/dL Glucose 114 H (75-100) mg/dL Calcium 8.2 L (8.4-10.2) mg/dL Total Bilirubin 1.90 H (0.1-1.2) mg/dL AST 352 H (5-40) units/L ALT 124 H (7-56) units/L Alkaline Phosphatase 207 H (35-129) units/L NT-Pro-B Natriuret Pep 5770 H (0-450) pg/mL Total Protein 6.1 L (6.3-8.2) g/dL Albumin 3.1 L (3.9-5) g/dL - Imaging and Cardiology Chest x-ray: image reviewed CT Scan - head: report reviewed Assessment and Plan Assessment GI bleed, most likely an ulcer Blood loss anemia Difficulty ambulating Acute renal failure CHF, stable, probably diastolic Hypertension Depression Alcohol abuse Plan Admit to medicine Start Protonix, check serial hemoglobin transfuse packed red blood cells, consult GI Obtain MRI of the head: Do neurochecks Hold Lasix and other nephrotoxic agents, monitor kidney function No IV fluid at this point secondary to Lasix Continuing appropriate outpatient medications Start CIWA protocol with IV ativan DVT prophylaxis
[2017-09-15] MEDS ORDERED: ZOFRAN IV PRN (23:52)
[2017-09-15] MEDS ORDERED: TYLENOL PR PRN (23:52)
[2017-09-15] MEDS ORDERED: PROTONIX IV ONE (23:52)
[2017-09-15] MEDS ORDERED: SODIUM CHLORIDE FLUSH SYRINGE 10 ML IV PRN (23:52)
[2017-09-16 00:08] LABS: INR 1.17 (0.87-1.13); Partial Thromboplastin Time 34.3 Sec. (24.2-36.6)
[2017-09-16] MEDS ORDERED: ATIVAN IV PRN ×2 (00:08)
[2017-09-16 00:55] LABS: Hemoglobin 3.6 gm/dl (11.8-15.2)
[2017-09-16 00:56] LABS: Hematocrit 11.8 % (35.5-45.6)
[2017-09-16] MEDS: BENADRYL IV PRN ×2 (02:50→20:32)
[2017-09-16] MEDS: TYLENOL PO PRN ×2 (02:52→20:31)
[2017-09-16] MEDS ORDERED: NACL 0.9% 500 ML 500 ML ONE (03:15)
[2017-09-16 07:37] LABS: Hemoglobin 6.5 gm/dl (11.8-15.2); Mean Corpuscular HGB Conc 34 % (32-34); Mean Corpuscular Hemoglobin 35 pg (28-32); Mean Corpuscular Volume 103 fl (84-94); Platelet Count 252 K/mm3 (140-440); Red Blood Count 1.84 M/mm3 (3.65-5.03)
[2017-09-16 07:43] LABS: Red Cell Distribution Width 21.2 % (13.2-15.2)
[2017-09-16] MEDS ORDERED: PROTONIX IV SCH (10:00)
[2017-09-16] MEDS: VITAMIN B-1 PO SCH (10:45)
[2017-09-16] MEDS: SODIUM CHLORIDE FLUSH SYRINGE 10 ML IV SCH ×2 (10:45→21:30)
[2017-09-16] MEDS ORDERED: NACL 0.9% 500 ML 500 ML IV ONE ×2 (11:47→15:00)
[2017-09-16 12:00] LABS: Anisocytosis 1+; Basophils % (Manual) 0 % (0.0-1.8); Target Cells Few; Total Cells Counted 100
[2017-09-16 12:01] LABS: Platelet Estimate Consistent w Auto
--- NOTE | 2017-09-16 12:13 | Magnetic Resonance Report ---
MRI OF THE BRAIN WITHOUT CONTRAST: HISTORY: Difficulty ambulating PROCEDURE: Multiplanar, multisequence MR imaging of the brain without IV contrast was performed. FINDINGS: Compared to the CT head dated 09/15/17. MRI demonstrates multiple small foci of diffusion restriction within the central portions of the bilateral cerebellar hemispheres and bilateral postero-frontal lobes. These areas of diffusion restriction measure less than 1 cm. There is no evidence for hemorrhage, mass or extra-axial fluid collection. Mild nonspecific chronic white matter changes and mild cortical atrophy are noted. No chronic infarct. The midline structures are central. The basal cisterns are patent. Normal ventricular size. The orbital cavities and sella turcica demonstrate no abnormality. The left frontal sinus is opacified. There is a larger fluid level in the left maxillary sinus. There is mild to moderate fluid in both mastoid air cells. IMPRESSION: There are multiple small foci of subacute ischemia in the cerebellar hemispheres and posterior frontal lobes. This pattern could indicate an embolic process. No evidence for hemorrhage. Left frontal and left maxillary sinus disease. Correlate for acute sinusitis.
--- NOTE | 2017-09-16 13:53 | Gastroenterology Consultation ---
History of Present Illness - Reason for Consult Consult date: 09/16/17 GI bleed Requesting physician: SRUTHI CHEN - History of Present Illness Mr Carreon is a 46 yo aam with h/o alcohol abuse who presents for "not feeling well". Patient is a poor historian and reluctant to give detailed history at time of exam. He states he has not been feeling well for the past 2-3 days. he reports generalized abdominal pain and fatigue/decreased energy. He has had multiple bm's prior to admission but did not pay attention to the color of stool. He has had 2 coffee ground emesis episodes prior to admission. Admits to alcohol use daily. Reports frequent nsaid use. Denies h/o gi bleeding in the past. He ate chips this morning while in the ED. Past History Past Medical History: heart failure, hypertension, liver disease Social history: alcohol abuse Family history: no significant family history Medications and Allergies Allergies Allergy/AdvReac Type Severity Reaction Status Date / Time No Known Allergies Allergy Verified 10/29/16 17:29 Home Medications Medication Instructions Recorded Confirmed Last Taken Type Aspirin [Aspirin BABY CHEW TAB] 81 mg PO QDAY #30 tab.chew 10/31/16 Unknown Rx Acetaminophen [Acetaminophen TAB] 325 mg PO Q4H PRN #30 tablet 12/07/16 Unknown Rx Carvedilol [Coreg] 6.25 mg PO BID #60 tablet 12/07/16 Unknown Rx Furosemide [Lasix TAB] 40 mg PO BID #60 tablet 12/07/16 Unknown Rx Lisinopril [Zestril] 40 mg PO DAILY #30 tablet 12/07/16 Unknown Rx Magnesium Oxide 400 mg PO BIDAC #60 tablet 12/07/16 Unknown Rx Nitroglycerin [Nitrostat] 0.4 mg SL .Q5MIN PRN #10 tablet 12/07/16 Unknown Rx Potassium Chloride [K-Dur] 20 meq PO BID #60 tab 12/07/16 Unknown Rx Thiamine [Vitamin B-1] 100 mg PO QDAY #30 tablet 12/07/16 Unknown Rx amLODIPine [Norvasc] 5 mg PO QDAY #30 tablet 12/07/16 Unknown Rx Active Meds: Active Medications Acetaminophen (Tylenol) 650 mg PO Q4H PRN PRN Reason: Pain MILD(1-3)/Fever >100.5/ERWIN Last Admin: 09/16/17 02:52 Dose: 650 mg Acetaminophen (Tylenol) 650 mg VT Q4H PRN PRN Reason: Pain MILD(1-3)/Fever >100.5/ERWIN Diphenhydramine HCl (Benadryl) 25 mg IV Q6H PRN PRN Reason: Itching Last Admin: 09/16/17 02:50 Dose: 25 mg Lorazepam (Ativan) 2 mg IV Q1HR PRN PRN Reason: CIWA-Ar 8-15 Lorazepam (Ativan) 4 mg IV Q1HR PRN PRN Reason: CIWA-Ar 16-25 Ondansetron HCl (Zofran) 4 mg IV Q8H PRN PRN Reason: Nausea And Vomiting Pantoprazole Sodium (Protonix) 40 mg IV DAILY [facility] Last Admin: 09/16/17 10:45 Dose: 40 mg Pneumococcal Polyvalent Vaccine (Pneumovax 23) 0.5 ml IM .ONCE ONE Stop: 09/17/17 12:01 Sodium Chloride (Sodium Chloride Flush Syringe 10 Ml) 10 ml IV BID [facility] Last Admin: 09/16/17 10:45 Dose: 10 ml Sodium Chloride (Sodium Chloride Flush Syringe 10 Ml) 10 ml IV PRN PRN PRN Reason: LINE FLUSH Thiamine HCl (Vitamin B-1) 100 mg PO QDAY [facility] Last Admin: 09/16/17 10:45 Dose: 100 mg Review of Systems - Review of Systems All systems: negative (per HPI) Exam - Constitutional Vital Signs: Temp Pulse Resp BP Pulse Ox 98.3 F 96 H 19 135/83 99 09/16/17 12:59 09/16/17 13:23 09/16/17 13:00 09/16/17 12:59 09/16/17 13:00 General appearance: no acute distress, obese - EENT Eyes: PERRL ENT: hearing intact - Respiratory Respiratory effort: normal Respiratory: bilateral: CTA - Cardiovascular Rhythm: regular Heart Sounds: Present: S1 & S2 Extremities: No edema, Full ROM - Gastrointestinal General gastrointestinal: Present: soft, non-tender, non-distended, normal bowel sounds - Integumentary Integumentary: Present: clear, warm - Neurologic Neurological: alert and oriented x3 - Psychiatric Psychiatric: appropriate mood/affect - Labs CBC & Chem 7: 09/16/17 07:01 09/16/17 07:01 Lab Results: Laboratory Results - last 24 hr 09/15/17 09/15/17 09/15/17 22:15 22:33 22:33 WBC 12.0 H RBC 0.94 L Hgb 3.7 L* Hct 12.2 L* MCV 129 H MCH 40 H MCHC 31 L RDW 28.7 H Plt Count 296 Add Manual Diff Complete Total Counted 100 Seg Neuts % (Manual) 84.0 H Band Neutrophils % 0 Lymphocytes % (Manual) 9.0 L Reactive Lymphs % (Man) 0 Monocytes % (Manual) 5.0 Eosinophils % (Manual) 1.0 Basophils % (Manual) 0 Metamyelocytes % 0 Myelocytes % 1.0 Promyelocytes % 0 Blast Cells % 0 Nucleated RBC % Not Reportable Seg Neutrophils # Man 10.1 H Band Neutrophils # 0.0 Lymphocytes # (Manual) 1.1 L Abs React Lymphs (Man) 0.0 Monocytes # (Manual) 0.6 Eosinophils # (Manual) 0.1 Basophils # (Manual) 0.0 Metamyelocytes # 0.0 Myelocytes # 0.1 Promyelocytes # 0.0 Blast Cells # 0.0 WBC Morphology Not Reportable Hypersegmented Neuts Not Reportable Hyposegmented Neuts Not Reportable Hypogranular Neuts Not Reportable Smudge Cells Not Reportable Toxic Granulation Not Reportable Toxic Vacuolation Not Reportable Dohle Bodies Not Reportable Pelger-Huet Anomaly Not Reportable Mack Rods Not Reportable Platelet Estimate Consistent w auto Clumped Platelets Not Reportable Plt Clumps, EDTA Not Reportable Large Platelets Not Reportable Giant Platelets Not Reportable Platelet Satelliting Not Reportable Plt Morphology Comment Not Reportable RBC Morphology Not Reportable Dimorphic RBCs Not Reportable Polychromasia Few Hypochromasia Not Reportable Poikilocytosis Not Reportable Anisocytosis 1+ Microcytosis Not Reportable Macrocytosis 3+ Spherocytes Not Reportable Pappenheimer Bodies Not Reportable Sickle Cells Not Reportable Target Cells Not Reportable Tear Drop Cells Not Reportable Ovalocytes Not Reportable Helmet Cells Not Reportable Jackson-[place] Bodies Not Reportable [place] Rings Not Reportable [place] Cells Not Reportable Bite Cells Not Reportable Crenated Cell Not Reportable Elliptocytes Not Reportable Acanthocytes (Spur) Not Reportable Rouleaux Not Reportable Hemoglobin C Crystals Not Reportable Schistocytes Not Reportable Malaria parasites Not Reportable Víctor Bodies Not Reportable Hem Pathologist Commnt No PT INR APTT Sodium 140 Potassium 4.3 Chloride 100.5 Carbon Dioxide 20 L Anion Gap 24 BUN 63 H Creatinine 2.0 H Estimated GFR 44 BUN/Creatinine Ratio 32 Glucose 114 H Calcium 8.2 L Total Bilirubin 1.90 H AST 352 H ALT 124 H Alkaline Phosphatase 207 H NT-Pro-B Natriuret Pep 5770 H Total Protein 6.1 L Albumin 3.1 L Albumin/Globulin Ratio 1.0 Urine Color Yellow Urine Turbidity Clear Urine pH 5.0 Ur Specific [place] 1.014 Urine Protein <15 mg/dl Urine Glucose (UA) Neg Urine Ketones Neg Urine Blood Neg Urine Nitrite Neg Urine Bilirubin Neg Urine Urobilinogen 2.0 Ur Leukocyte Esterase Neg Urine WBC (Auto) 1.0 Urine RBC (Auto) 2.0 U Epithel Cells (Auto) < 1.0 Blood Type Antibody Screen Crossmatch 09/15/17 09/15/17 09/16/17 23:33 23:33 00:19 WBC RBC Hgb 3.6 L* Hct 11.8 L* MCV MCH MCHC RDW Plt Count Add Manual Diff Total Counted Seg Neuts % (Manual) Band Neutrophils % Lymphocytes % (Manual) Reactive Lymphs % (Man) Monocytes % (Manual) Eosinophils % (Manual) Basophils % (Manual) Metamyelocytes % Myelocytes % Promyelocytes % Blast Cells % Nucleated RBC % Seg Neutrophils # Man Band Neutrophils # Lymphocytes # (Manual) Abs React Lymphs (Man) Monocytes # (Manual) Eosinophils # (Manual) Basophils # (Manual) Metamyelocytes # Myelocytes # Promyelocytes # Blast Cells # WBC Morphology Hypersegmented Neuts Hyposegmented Neuts Hypogranular Neuts Smudge Cells Toxic Granulation Toxic Vacuolation Dohle Bodies Pelger-Huet Anomaly Mack Rods Platelet Estimate Clumped Platelets Plt Clumps, EDTA Large Platelets Giant Platelets Platelet Satelliting Plt Morphology Comment RBC Morphology Dimorphic RBCs Polychromasia Hypochromasia Poikilocytosis Anisocytosis Microcytosis Macrocytosis Spherocytes Pappenheimer Bodies Sickle Cells Target Cells Tear Drop Cells Ovalocytes Helmet Cells Jackson-[place] Bodies [place] Rings [place] Cells Bite Cells Crenated Cell Elliptocytes Acanthocytes (Spur) Rouleaux Hemoglobin C Crystals Schistocytes Malaria parasites Víctor Bodies Hem Pathologist Commnt PT 15.5 H INR 1.17 H APTT 34.3 Sodium Potassium Chloride Carbon Dioxide Anion Gap BUN Creatinine Estimated GFR BUN/Creatinine Ratio Glucose Calcium Total Bilirubin AST ALT Alkaline Phosphatase NT-Pro-B Natriuret Pep Total Protein Albumin Albumin/Globulin Ratio Urine Color Urine Turbidity Urine pH Ur Specific [place] Urine Protein Urine Glucose (UA) Urine Ketones Urine Blood Urine Nitrite Urine Bilirubin Urine Urobilinogen Ur Leukocyte Esterase Urine WBC (Auto) Urine RBC (Auto) U Epithel Cells (Auto) Blood Type A POSITIVE Antibody Screen Negative Crossmatch See Detail 09/16/17 09/16/17 07:01 07:01 WBC 10.3 RBC 1.84 L Hgb 6.5 L Hct 19.0 L* D MCV 103 H MCH 35 H MCHC 34 RDW 21.2 H Plt Count 252 Add Manual Diff Complete Total Counted 100 Seg Neuts % (Manual) 83.0 H Band Neutrophils % 0 Lymphocytes % (Manual) 12.0 L Reactive Lymphs % (Man) 0 Monocytes % (Manual) 4.0 Eosinophils % (Manual) 1.0 Basophils % (Manual) 0 Metamyelocytes % 0 Myelocytes % 0 Promyelocytes % 0 Blast Cells % 0 Nucleated RBC % 1.0 H Seg Neutrophils # Man 8.5 H Band Neutrophils # 0.0 Lymphocytes # (Manual) 1.2 Abs React Lymphs (Man) 0.0 Monocytes # (Manual) 0.4 Eosinophils # (Manual) 0.1 Basophils # (Manual) 0.0 Metamyelocytes # 0.0 Myelocytes # 0.0 Promyelocytes # 0.0 Blast Cells # 0.0 WBC Morphology Not Reportable Hypersegmented Neuts Not Reportable Hyposegmented Neuts Not Reportable Hypogranular Neuts Not Reportable Smudge Cells Not Reportable Toxic Granulation Not Reportable Toxic Vacuolation Not Reportable Dohle Bodies Not Reportable Pelger-Huet Anomaly Not Reportable Mack Rods Not Reportable Platelet Estimate Consistent w auto Clumped Platelets Not Reportable Plt Clumps, EDTA Not Reportable Large Platelets Not Reportable Giant Platelets Not Reportable Platelet Satelliting Not Reportable Plt Morphology Comment Not Reportable RBC Morphology Not Reportable Dimorphic RBCs Not Reportable Polychromasia Not Reportable Hypochromasia Not Reportable Poikilocytosis Not Reportable Anisocytosis 1+ Microcytosis Not Reportable Macrocytosis Not Reportable Spherocytes Not Reportable Pappenheimer Bodies Not Reportable Sickle Cells Not Reportable Target Cells Few Tear Drop Cells Not Reportable Ovalocytes Not Reportable Helmet Cells Not Reportable Jackson-[place] Bodies Not Reportable [place] Rings Not Reportable [place] Cells Not Reportable Bite Cells Not Reportable Crenated Cell Not Reportable Elliptocytes Not Reportable Acanthocytes (Spur) Not Reportable Rouleaux Not Reportable Hemoglobin C Crystals Not Reportable Schistocytes Not Reportable Malaria parasites Not Reportable Víctor Bodies Not Reportable Hem Pathologist Commnt No PT INR APTT Sodium 139 Potassium 4.2 Chloride 102.1 Carbon Dioxide 19 L Anion Gap 22 BUN 59 H Creatinine 1.7 H Estimated GFR 53 BUN/Creatinine Ratio 35 Glucose 111 H Calcium 8.0 L Total Bilirubin AST ALT Alkaline Phosphatase NT-Pro-B Natriuret Pep Total Protein Albumin Albumin/Globulin Ratio Urine Color Urine Turbidity Urine pH Ur Specific [place] Urine Protein Urine Glucose (UA) Urine Ketones Urine Blood Urine Nitrite Urine Bilirubin Urine Urobilinogen Ur Leukocyte Esterase Urine WBC (Auto) Urine RBC (Auto) U Epithel Cells (Auto) Blood Type Antibody Screen Crossmatch Assessment and Plan 1. Profound anemia 2/2 suspected acute blood loss - likely with UGI bleeding. vitals stable. pt ate this morning. responded appropriately to blood transfusions. will start ppi drip, serial H/H, NPO at midnight for EGD tomorrow 2. elevated liver enzymes - likely 2/2 alcohol abuse. may have advanced fibrosis as well. [facility] protocol. discussed in detail regarding alcohol cessation with pt.
[2017-09-16] MEDS ORDERED: PROTONIX 80 MG in NACL 0.9% 100 ML IV SCH (14:00)
--- NOTE | 2017-09-16 14:30 | Progress Note ---
Assessment and Plan Assessment and plan: 46-year-old -[place] male with past medical history significant for hypertension was presented to the emergency department because of complaints of not feeling good. In the emergency department his hemoglobin was 3.7, creatinine was 2. Patient has been taking ibuprofen and has been drinking alcohol heavily. Patient is a very poor historian. Patient said he has bowel movements but he didn't look what color was it. He admitted to for 2 episodes of coffee-ground emesis Symptomatic anemia likely due to upper GI bleeding - Patient was transfused 2 units of blood and his posttransfusion hemoglobin was 6.5. Another 2 units of blood were ordered -GI was consulted and is going to do EGD tomorrow, nothing by mouth after midnight - Patient is on Protonix drip Alcohol abuse - Patient is on [facility] protocol DVT prophylaxis - SCDs for now because of GI bleed Disposition - Admit to telemetry floor The high probability of a clinically significant, sudden or life threatening deterioration of the [GI, hematology] system(s) required my full and direct attention, intervention and personal management. The aggregate critical care time was [[id number]] minutes. This time is in addition to time spent performing reported procedures but includes the following: [x] Data Review and interpretation [x] Patient assessment and monitoring of vital signs [x] Documentation [x] Medication orders and management History Interval history: Patient was seen and evaluated this morning, patient didn't understand the seriousness of his illness and doesn't look concerned, since main concern wass when he is going to eat. Hospitalist Physical - Physical exam Narrative exam: Not in cardiopulmonary distress. The patient appeared well nourished and normally developed. Vital signs as documented. Head exam is unremarkable. No scleral icterus . Neck is without jugular venous distension, thyromegaly, or carotid bruits. Lungs are clear to auscultation. Cardiac exam reveals regular rate and Rhythm. First and second heart sounds normal. No murmurs, rubs or gallops. Abdominal exam reveals normal bowel sounds, no masses, no organomegaly and no aortic enlargement. Extremities are nonedematous and both femoral and pedal pulses are normal. BELLOWS FILLER: Alert and oriented 3. No focal weakness. - Constitutional Vitals: Temp Pulse Resp BP Pulse Ox 98.3 F 96 H 19 135/83 99 09/16/17 12:59 09/16/17 13:23 09/16/17 13:00 09/16/17 12:59 09/16/17 13:00 Results - Labs CBC & Chem 7: 09/16/17 07:01 09/16/17 07:01 Labs: Laboratory Last Values WBC 10.3 K/mm3 (4.5-11.0) 09/16/17 07:01 RBC 1.84 M/mm3 (3.65-5.03) L 09/16/17 07:01 Hgb 6.5 gm/dl (11.8-15.2) L 09/16/17 07:01 Hct 19.0 % (35.5-45.6) L* D 09/16/17 07:01 MCV 103 fl (84-94) H 09/16/17 07:01 MCH 35 pg (28-32) H 09/16/17 07:01 MCHC 34 % (32-34) 09/16/17 07:01 RDW 21.2 % (13.2-15.2) H 09/16/17 07:01 Plt Count 252 K/mm3 (140-440) 09/16/17 07:01 Add Manual Diff Complete 09/16/17 07:01 Total Counted 100 09/16/17 07:01 Seg Neuts % (Manual) 83.0 % (40.0-70.0) H 09/16/17 07:01 Band Neutrophils % 0 % 09/16/17 07:01 Lymphocytes % (Manual) 12.0 % (13.4-35.0) L 09/16/17 07:01 Reactive Lymphs % (Man) 0 % 09/16/17 07:01 Monocytes % (Manual) 4.0 % (0.0-7.3) 09/16/17 07:01 Eosinophils % (Manual) 1.0 % (0.0-4.3) 09/16/17 07:01 Basophils % (Manual) 0 % (0.0-1.8) 09/16/17 07:01 Metamyelocytes % 0 % 09/16/17 07:01 Myelocytes % 0 % 09/16/17 07:01 Promyelocytes % 0 % 09/16/17 07:01 Blast Cells % 0 % 09/16/17 07:01 Nucleated RBC % 1.0 % (0.0-0.9) H 09/16/17 07:01 Seg Neutrophils # Man 8.5 K/mm3 (1.8-7.7) H 09/16/17 07:01 Band Neutrophils # 0.0 K/mm3 09/16/17 07:01 Lymphocytes # (Manual) 1.2 K/mm3 (1.2-5.4) 09/16/17 07:01 Abs React Lymphs (Man) 0.0 K/mm3 09/16/17 07:01 Monocytes # (Manual) 0.4 K/mm3 (0.0-0.8) 09/16/17 07:01 Eosinophils # (Manual) 0.1 K/mm3 (0.0-0.4) 09/16/17 07:01 Basophils # (Manual) 0.0 K/mm3 (0.0-0.1) 09/16/17 07:01 Metamyelocytes # 0.0 K/mm3 09/16/17 07:01 Myelocytes # 0.0 K/mm3 09/16/17 07:01 Promyelocytes # 0.0 K/mm3 09/16/17 07:01 Blast Cells # 0.0 K/mm3 09/16/17 07:01 WBC Morphology Not Reportable 09/16/17 07:01 Hypersegmented Neuts Not Reportable 09/16/17 07:01 Hyposegmented Neuts Not Reportable 09/16/17 07:01 Hypogranular Neuts Not Reportable 09/16/17 07:01 Smudge Cells Not Reportable 09/16/17 07:01 Toxic Granulation Not Reportable 09/16/17 07:01 Toxic Vacuolation Not Reportable 09/16/17 07:01 Dohle Bodies Not Reportable 09/16/17 07:01 Pelger-Huet Anomaly Not Reportable 09/16/17 07:01 Mack Rods Not Reportable 09/16/17 07:01 Platelet Estimate Consistent w auto 09/16/17 07:01 Clumped Platelets Not Reportable 09/16/17 07:01 Plt Clumps, EDTA Not Reportable 09/16/17 07:01 Large Platelets Not Reportable 09/16/17 07:01 Giant Platelets Not Reportable 09/16/17 07:01 Platelet Satelliting Not Reportable 09/16/17 07:01 Plt Morphology Comment Not Reportable 09/16/17 07:01 RBC Morphology Not Reportable 09/16/17 07:01 Dimorphic RBCs Not Reportable 09/16/17 07:01 Polychromasia Not Reportable 09/16/17 07:01 Hypochromasia Not Reportable 09/16/17 07:01 Poikilocytosis Not Reportable 09/16/17 07:01 Anisocytosis 1+ 09/16/17 07:01 Microcytosis Not Reportable 09/16/17 07:01 Macrocytosis Not Reportable 09/16/17 07:01 Spherocytes Not Reportable 09/16/17 07:01 Pappenheimer Bodies Not Reportable 09/16/17 07:01 Sickle Cells Not Reportable 09/16/17 07:01 Target Cells Few 09/16/17 07:01 Tear Drop Cells Not Reportable 09/16/17 07:01 Ovalocytes Not Reportable 09/16/17 07:01 Helmet Cells Not Reportable 09/16/17 07:01 [place] Bodies Not Reportable 09/16/17 07:01 [place] Rings Not Reportable 09/16/17 07:01 [place] Cells Not Reportable 09/16/17 07:01 Bite Cells Not Reportable 09/16/17 07:01 Crenated Cell Not Reportable 09/16/17 07:01 Elliptocytes Not Reportable 09/16/17 07:01 Acanthocytes (Spur) Not Reportable 09/16/17 07:01 Rouleaux Not Reportable 09/16/17 07:01 Hemoglobin C Crystals Not Reportable 09/16/17 07:01 Schistocytes Not Reportable 09/16/17 07:01 Malaria parasites Not Reportable 09/16/17 07:01 Víctor Bodies Not Reportable 09/16/17 07:01 Hem Pathologist Commnt No 09/16/17 07:01 PT 15.5 Sec. (12.2-14.9) H 09/15/17 23:33 INR 1.17 (0.87-1.13) H 09/15/17 23:33 APTT 34.3 Sec. (24.2-36.6) 09/15/17 23:33 Sodium 139 mmol/L (137-145) 09/16/17 07:01 Potassium 4.2 mmol/L (3.6-5.0) 09/16/17 07:01 Chloride 102.1 mmol/L (98-107) 09/16/17 07:01 Carbon Dioxide 19 mmol/L (22-30) L 09/16/17 07:01 Anion Gap 22 mmol/L 09/16/17 07:01 BUN 59 mg/dL (9-20) H 09/16/17 07:01 Creatinine 1.7 mg/dL (0.8-1.5) H 09/16/17 07:01 Estimated GFR 53 ml/min 09/16/17 07:01 BUN/Creatinine Ratio 35 % 09/16/17 07:01 Glucose 111 mg/dL (75-100) H 09/16/17 07:01 Calcium 8.0 mg/dL (8.4-10.2) L 09/16/17 07:01 Total Bilirubin 1.90 mg/dL (0.1-1.2) H 09/15/17 22:33 AST 352 units/L (5-40) H 09/15/17 22:33 ALT 124 units/L (7-56) H 09/15/17 22:33 Alkaline Phosphatase 207 units/L (35-129) H 09/15/17 22:33 NT-Pro-B Natriuret Pep 5770 pg/mL (0-450) H 09/15/17 22:33 Total Protein 6.1 g/dL (6.3-8.2) L 09/15/17 22:33 Albumin 3.1 g/dL (3.9-5) L 09/15/17 22:33 Albumin/Globulin Ratio 1.0 % 09/15/17 22:33 Urine Color Yellow (Yellow) 09/15/17 22:15 Urine Turbidity Clear (Clear) 09/15/17 22:15 Urine pH 5.0 (5.0-7.0) 09/15/17 22:15 Ur Specific [place] 1.014 (1.003-1.030) 09/15/17 22:15 Urine Protein <15 mg/dl mg/dL (Negative) 09/15/17 22:15 Urine Glucose (UA) Neg mg/dL (Negative) 09/15/17 22:15 Urine Ketones Neg mg/dL (Negative) 09/15/17 22:15 Urine Blood Neg (Negative) 09/15/17 22:15 Urine Nitrite Neg (Negative) 09/15/17 22:15 Urine Bilirubin Neg (Negative) 09/15/17 22:15 Urine Urobilinogen 2.0 mg/dL (<2.0) 09/15/17 22:15 Ur Leukocyte Esterase Neg (Negative) 09/15/17 22:15 Urine WBC (Auto) 1.0 /HPF (0.0-6.0) 09/15/17 22:15 Urine RBC (Auto) 2.0 /HPF (0.0-6.0) 09/15/17 22:15 U Epithel Cells (Auto) < 1.0 /HPF (0-13.0) 09/15/17 22:15 Blood Type A POSITIVE 09/15/17 23:33 Antibody Screen Negative 09/15/17 23:33 Crossmatch See Detail 09/15/17 23:33
[2017-09-16 20:03] LABS: Hematocrit 20.4 % (35.5-45.6); Hemoglobin 6.9 gm/dl (11.8-15.2)
[2017-09-16] MEDS ORDERED: NACL 0.9% 250ML 250 ML ONE (20:24)
[2017-09-16] MEDS ORDERED: NACL 0.9% 250ML 250 ML IV ONE (20:30)
[2017-09-17] MEDS ORDERED: PROTONIX 80 MG in NACL 0.9% 100 ML IV SCH
[2017-09-17 01:55] LABS: Hematocrit 21.9 % (35.5-45.6); Hemoglobin 7.5 gm/dl (11.8-15.2)
[2017-09-17] MEDS ORDERED: NACL 0.9% 1000 ML 1,000 ML IV SCH (09:00)
[2017-09-17] MEDS ORDERED: WATER FOR IRRIG STERILE IR ONE (09:44)
[2017-09-17] MEDS ORDERED: DIPRIVAN 10 MG/ML IV ONE ×2 (09:54)
[2017-09-17] MEDS ORDERED: XYLOCAINE MPF 2% ONE (10:00)
--- NOTE | 2017-09-17 10:23 | Operative Report ---
Operative Report Operative Report: Esophagogastroduodenoscopy with Biopsies Date of procedure: 09/17/2017 Endoscopist: Elkin armendariz Pre-op diagnosis: UGI bleeding Post-op diagnosis: large cratered gastric ulcer (clean based), gastritis, esophagitis Anesthesia: MAC Complications: No immediate complications Estimated blood loss: minimal Procedure: After consent was obtained, the patient was placed in the left lateral decubitus position. The fujinon endoscope was inserted into the patient 's mouth under direct vision, and advanced to the 2nd portion of duodenum without difficulty. The patient tolerated the procedure well. The views of the mucosa were good. Patient's vital signs were monitored continuously throughout the procedure. Findings: There was moderately-severe esophagitis in the lower third of the esophagus without high risk bleeding lesions. No obvious underlying varices. There was a large, cratered ulcer in the gastric antrum (~3 cm). The mucosa around the ulcer was severely inflammed and erythematous. The ulcer however was clean based without high risk bleeding stigmata. Biopsies from the surround mucosa/edge of ulcer were obtained to rule out dysplasia. There was moderately-severe erythematous mucosa in the gastric body and antrum. Biopsies were obtained to evaluate for H pylori. The duodenum appeared normal. Impression: 1. Large clean based gastric ulcer as above. Biopsied obtained. Likely source of patient's GI bleeding. No high risk bleeding stigmata seen during procedure. 2. Moderately severe gastritis. Biopsied to evaluate for H pylori. 3. Esophagitis Recommendations: -PPI po BID daily -okay to start clear liquid diet and advance as tolerated -d/c NSAIDs -follow-up pathology, treat for HP if positive -repeat endoscopy in 6-8 weeks to assess for ulcer healing Follow-up in GI clinic in 1 month.
--- NOTE | 2017-09-17 10:23 | Post Operative Note ---
Pre-op diagnosis: GI bleed Post-op diagnosis: other (large cratered clean based gastric ulcer, gastritis, esophagitis) Findings: EGD: There was a large cratered ulcer in the gastric antrum (with heaped up margins) . No high risk bleeding stigmata. Moderately severe gastritis. Esophagitis Biopsies from stomach and edge of ulcer were obtained. Procedure: EGD with biopsies Anesthesia: MAC Surgeon: GAGANDEEP VENEGAS Estimated blood loss: minimal Pathology: list (Jar A - gastric bx's, r/o HP; Jar B - edge of ulcer bx's, rule out dysplasia) Specimen disposition: to lab Condition: stable Disposition: floor
[2017-09-17 11:40] LABS: Hematocrit 23.7 % (35.5-45.6); Hemoglobin 7.9 gm/dl (11.8-15.2)
[2017-09-17] MEDS ORDERED: PNEUMOVAX 23 IM ONE (12:00)
[2017-09-17] MEDS: VITAMIN B-1 PO SCH (12:24)
[2017-09-17] MEDS: SODIUM CHLORIDE FLUSH SYRINGE 10 ML IV SCH ×2 (12:24→22:24)
[2017-09-17 14:04] LABS: Hematocrit 22.5 % (35.5-45.6); Hemoglobin 7.4 gm/dl (11.8-15.2)
--- NOTE | 2017-09-17 14:09 | Post Anesthesia Evaluation ---
- Post Anesthesia Evaluation Patient Participated: Yes Airway Patent: Yes Stable Respiratory Function: Yes Nausea/Vomiting: No Temp > 96.8F: Yes Pain Manageable: Yes Adequeate Hydration: Yes Anesthesia Complications: No
--- NOTE | 2017-09-17 15:26 | Progress Note ---
Assessment and Plan Assessment and plan: 46-year-old -[place] male with past medical history significant for hypertension was presented to the emergency department because of complaints of not feeling good. In the emergency department his hemoglobin was 3.7, creatinine was 2. Patient has been taking ibuprofen and has been drinking alcohol heavily. Patient is a very poor historian. Patient said he has bowel movements but he didn't look what color was it. He admitted to for 2 episodes of coffee-ground emesis Symptomatic anemia likely due to upper GI bleeding - Patient was transfused 4 units of blood and his posttransfusion hemoglobin was 7.4. Monitor H&H closely, transfuse as needed -GI was consulted and EGD was done and showed 3cm cratered gastric antral ulcer. - Patient is on Protonix 40 mg PO BID - Currently on clear liquid diet, advance as tolerated Alcohol abuse - Patient is on CIWA protocol BRODIE likely secondary to vasomotor nephropathy - Creatinine is trending down DVT prophylaxis - SCDs for now because of GI bleed Disposition -Continue inpatient care History Interval history: Patient was seen and evaluated this morning. Patient's main concern is food. No bleeding. Hospitalist Physical - Physical exam Narrative exam: Not in cardiopulmonary distress. The patient appeared well nourished and normally developed. Vital signs as documented. Head exam is unremarkable. No scleral icterus . Neck is without jugular venous distension, thyromegaly, or carotid bruits. Lungs are clear to auscultation. Cardiac exam reveals regular rate and Rhythm. First and second heart sounds normal. No murmurs, rubs or gallops. Abdominal exam reveals normal bowel sounds, no masses, no organomegaly and no aortic enlargement. Extremities are nonedematous and both femoral and pedal pulses are normal. TAX PROFESSIONAL: Alert and oriented 3. No focal weakness. - Constitutional Vitals: Temp Pulse Resp BP Pulse Ox 98.5 F 104 H 22 141/88 99 09/17/17 10:20 09/17/17 10:45 09/17/17 10:45 09/17/17 10:45 09/17/17 11:55 Results - Labs CBC & Chem 7: 09/17/17 13:39 09/16/17 07:01 Labs: Laboratory Last Values WBC 10.3 K/mm3 (4.5-11.0) 09/16/17 07:01 RBC 1.84 M/mm3 (3.65-5.03) L 09/16/17 07:01 Hgb 7.4 gm/dl (11.8-15.2) L 09/17/17 13:39 Hct 22.5 % (35.5-45.6) L 09/17/17 13:39 MCV 103 fl (84-94) H 09/16/17 07:01 MCH 35 pg (28-32) H 09/16/17 07:01 MCHC 34 % (32-34) 09/16/17 07:01 RDW 21.2 % (13.2-15.2) H 09/16/17 07:01 Plt Count 252 K/mm3 (140-440) 09/16/17 07:01 Add Manual Diff Complete 09/16/17 07:01 Total Counted 100 09/16/17 07:01 Seg Neuts % (Manual) 83.0 % (40.0-70.0) H 09/16/17 07:01 Band Neutrophils % 0 % 09/16/17 07:01 Lymphocytes % (Manual) 12.0 % (13.4-35.0) L 09/16/17 07:01 Reactive Lymphs % (Man) 0 % 09/16/17 07:01 Monocytes % (Manual) 4.0 % (0.0-7.3) 09/16/17 07:01 Eosinophils % (Manual) 1.0 % (0.0-4.3) 09/16/17 07:01 Basophils % (Manual) 0 % (0.0-1.8) 09/16/17 07:01 Metamyelocytes % 0 % 09/16/17 07:01 Myelocytes % 0 % 09/16/17 07:01 Promyelocytes % 0 % 09/16/17 07:01 Blast Cells % 0 % 09/16/17 07:01 Nucleated RBC % 1.0 % (0.0-0.9) H 09/16/17 07:01 Seg Neutrophils # Man 8.5 K/mm3 (1.8-7.7) H 09/16/17 07:01 Band Neutrophils # 0.0 K/mm3 09/16/17 07:01 Lymphocytes # (Manual) 1.2 K/mm3 (1.2-5.4) 09/16/17 07:01 Abs React Lymphs (Man) 0.0 K/mm3 09/16/17 07:01 Monocytes # (Manual) 0.4 K/mm3 (0.0-0.8) 09/16/17 07:01 Eosinophils # (Manual) 0.1 K/mm3 (0.0-0.4) 09/16/17 07:01 Basophils # (Manual) 0.0 K/mm3 (0.0-0.1) 09/16/17 07:01 Metamyelocytes # 0.0 K/mm3 09/16/17 07:01 Myelocytes # 0.0 K/mm3 09/16/17 07:01 Promyelocytes # 0.0 K/mm3 09/16/17 07:01 Blast Cells # 0.0 K/mm3 09/16/17 07:01 WBC Morphology Not Reportable 09/16/17 07:01 Hypersegmented Neuts Not Reportable 09/16/17 07:01 Hyposegmented Neuts Not Reportable 09/16/17 07:01 Hypogranular Neuts Not Reportable 09/16/17 07:01 Smudge Cells Not Reportable 09/16/17 07:01 Toxic Granulation Not Reportable 09/16/17 07:01 Toxic Vacuolation Not Reportable 09/16/17 07:01 Dohle Bodies Not Reportable 09/16/17 07:01 Pelger-Huet Anomaly Not Reportable 09/16/17 07:01 Mack Rods Not Reportable 09/16/17 07:01 Platelet Estimate Consistent w auto 09/16/17 07:01 Clumped Platelets Not Reportable 09/16/17 07:01 Plt Clumps, EDTA Not Reportable 09/16/17 07:01 Large Platelets Not Reportable 09/16/17 07:01 Giant Platelets Not Reportable 09/16/17 07:01 Platelet Satelliting Not Reportable 09/16/17 07:01 Plt Morphology Comment Not Reportable 09/16/17 07:01 RBC Morphology Not Reportable 09/16/17 07:01 Dimorphic RBCs Not Reportable 09/16/17 07:01 Polychromasia Not Reportable 09/16/17 07:01 Hypochromasia Not Reportable 09/16/17 07:01 Poikilocytosis Not Reportable 09/16/17 07:01 Anisocytosis 1+ 09/16/17 07:01 Microcytosis Not Reportable 09/16/17 07:01 Macrocytosis Not Reportable 09/16/17 07:01 Spherocytes Not Reportable 09/16/17 07:01 Pappenheimer Bodies Not Reportable 09/16/17 07:01 Sickle Cells Not Reportable 09/16/17 07:01 Target Cells Few 09/16/17 07:01 Tear Drop Cells Not Reportable 09/16/17 07:01 Ovalocytes Not Reportable 09/16/17 07:01 Helmet Cells Not Reportable 09/16/17 07:01 Jackson-[place] Bodies Not Reportable 09/16/17 07:01 [place] Rings Not Reportable 09/16/17 07:01 Yolis Cells Not Reportable 09/16/17 07:01 Bite Cells Not Reportable 09/16/17 07:01 Crenated Cell Not Reportable 09/16/17 07:01 Elliptocytes Not Reportable 09/16/17 07:01 Acanthocytes (Spur) Not Reportable 09/16/17 07:01 Rouleaux Not Reportable 09/16/17 07:01 Hemoglobin C Crystals Not Reportable 09/16/17 07:01 Schistocytes Not Reportable 09/16/17 07:01 Malaria parasites Not Reportable 09/16/17 07:01 Víctor Bodies Not Reportable 09/16/17 07:01 Hem Pathologist Commnt No 09/16/17 07:01 PT 15.5 Sec. (12.2-14.9) H 09/15/17 23:33 INR 1.17 (0.87-1.13) H 09/15/17 23:33 APTT 34.3 Sec. (24.2-36.6) 09/15/17 23:33 Sodium 139 mmol/L (137-145) 09/16/17 07:01 Potassium 4.2 mmol/L (3.6-5.0) 09/16/17 07:01 Chloride 102.1 mmol/L (98-107) 09/16/17 07:01 Carbon Dioxide 19 mmol/L (22-30) L 09/16/17 07:01 Anion Gap 22 mmol/L 09/16/17 07:01 BUN 59 mg/dL (9-20) H 09/16/17 07:01 Creatinine 1.7 mg/dL (0.8-1.5) H 09/16/17 07:01 Estimated GFR 53 ml/min 09/16/17 07:01 BUN/Creatinine Ratio 35 % 09/16/17 07:01 Glucose 111 mg/dL (75-100) H 09/16/17 07:01 Calcium 8.0 mg/dL (8.4-10.2) L 09/16/17 07:01 Total Bilirubin 1.90 mg/dL (0.1-1.2) H 09/15/17 22:33 AST 352 units/L (5-40) H 09/15/17 22:33 ALT 124 units/L (7-56) H 09/15/17 22:33 Alkaline Phosphatase 207 units/L (35-129) H 09/15/17 22:33 NT-Pro-B Natriuret Pep 5770 pg/mL (0-450) H 09/15/17 22:33 Total Protein 6.1 g/dL (6.3-8.2) L 09/15/17 22:33 Albumin 3.1 g/dL (3.9-5) L 09/15/17 22:33 Albumin/Globulin Ratio 1.0 % 09/15/17 22:33 Urine Color Yellow (Yellow) 09/15/17 22:15 Urine Turbidity Clear (Clear) 09/15/17 22:15 Urine pH 5.0 (5.0-7.0) 09/15/17 22:15 Ur Specific [place] 1.014 (1.003-1.030) 09/15/17 22:15 Urine Protein <15 mg/dl mg/dL (Negative) 09/15/17 22:15 Urine Glucose (UA) Neg mg/dL (Negative) 09/15/17 22:15 Urine Ketones Neg mg/dL (Negative) 09/15/17 22:15 Urine Blood Neg (Negative) 09/15/17 22:15 Urine Nitrite Neg (Negative) 09/15/17 22:15 Urine Bilirubin Neg (Negative) 09/15/17 22:15 Urine Urobilinogen 2.0 mg/dL (<2.0) 09/15/17 22:15 Ur Leukocyte Esterase Neg (Negative) 09/15/17 22:15 Urine WBC (Auto) 1.0 /HPF (0.0-6.0) 09/15/17 22:15 Urine RBC (Auto) 2.0 /HPF (0.0-6.0) 09/15/17 22:15 U Epithel Cells (Auto) < 1.0 /HPF (0-13.0) 09/15/17 22:15 Blood Type A POSITIVE 09/15/17 23:33 Antibody Screen Negative 09/15/17 23:33 Crossmatch See Detail 09/15/17 23:33
[2017-09-17] MEDS: PROTONIX PO SCH (22:23)
--- NOTE | 2017-09-17 22:27 | XRay Report ---
FINAL REPORT PROCEDURE: XR CHEST 1V AP TECHNIQUE: Chest radiograph anteroposterior view. CPT 99515 HISTORY: signs of fluid overload COMPARISON: No prior studies are available for comparison. FINDINGS: Heart: Heart is borderline enlarged Mediastinum/Vessels: Normal. Lungs/Pleural space: There are no infiltrates, effusions or pneumothoraces.. Bony thorax: No acute osseous abnormality. Life support devices: None. IMPRESSION: No acute cardiopulmonary abnormality.
[2017-09-18 04:54] LABS: Hemoglobin 8.1 gm/dl (11.8-15.2)
[2017-09-18 05:10] LABS: BUN/Creatinine Ratio 27; Blood Urea Nitrogen 27 mg/dL (9-20); Calcium 7.8 mg/dL (8.4-10.2); Hemolysis Index 1
[2017-09-18] MEDS: PROTONIX PO SCH (09:29)
[2017-09-18] MEDS: SODIUM CHLORIDE FLUSH SYRINGE 10 ML IV SCH (09:29)
[2017-09-18] MEDS: VITAMIN B-1 PO SCH (09:29)
--- NOTE | 2017-09-18 11:33 | Discharge Summary ---
<LISA MINOR - Last Filed: 09/18/17 13:52> Providers - Providers Date of Admission: 09/15/17 23:52 Date of discharge: 09/18/17 Attending physician: MADHAV CROCKER 09/15/17 23:52 Consult to Physician [CONS] Routine Comment: Consulting Provider: CHUCK CLARKE Physician Instructions: Reason For Exam: hematemesis Primary care physician: URIAH MENDEZ Hospitalization Condition: Serious Pertinent studies: EGD with biopsies showed 1.a large clean-based gastric ulcer, biopsies obtained likely source of patient's GI bleeding. No high risk bleeding stigmata seen during procedure moderately 2. severe gastritis biopsies to evaluate for H. pylori 3. esophagitis Hospital course: 46-year-old -[place] male with past medical history significant for hypertension was presented to the emergency department because of complaints of not feeling good. In the emergency department his hemoglobin was 3.7, creatinine was 2. Patient has been taking ibuprofen and has been drinking alcohol heavily. Patient is a very poor historian. Patient said he has bowel movements but he didn't look what color was it. He admitted to for 2 episodes of coffee-ground emesis Symptomatic anemia likely due to upper GI bleeding - Patient was transfused 4 units of blood and his posttransfusion hemoglobin was 7.4. Monitor H&H closely, transfuse as needed -GI was consulted and EGD was done and showed 3cm cratered gastric antral ulcer. - Patient is on Protonix 40 mg PO BID - Currently on clear liquid diet, advance as tolerated -Patient advised to stop all NSAID use Alcohol abuse - Patient was on CIWA protocol BRODIE likely secondary to vasomotor nephropathy -Patient's Lasix was held and his creatinine began trending down after gentle hydration with IVF DVT prophylaxis - SCDs for now because of GI bleed Disposition: DC-01 TO HOME OR SELFCARE Time spent for discharge: 32 minutes Core Measure Documentation - Palliative Care Palliative Care/ Comfort Measures: Not Applicable - Core Measures Any of the following diagnoses?: none Exam - Constitutional Vitals: Temp Pulse Resp BP Pulse Ox 98.7 F 102 H 19 134/83 98 09/18/17 07:40 09/18/17 10:00 09/18/17 08:37 09/18/17 07:40 09/18/17 08:37 General appearance: Present: no acute distress, well-nourished - EENT Eyes: Present: PERRL ENT: hearing intact, clear oral mucosa - Neck Neck: Present: supple, normal ROM - Respiratory Respiratory effort: normal Respiratory: bilateral: CTA - Cardiovascular Heart Sounds: Present: S1 & S2. Absent: rub, click - Extremities Extremities: pulses symmetrical, No edema Peripheral Pulses: within normal limits - Abdominal General gastrointestinal: Present: soft, non-tender, non-distended, normal bowel sounds - Integumentary Integumentary: Present: clear, warm, dry - Musculoskeletal Musculoskeletal: gait normal, strength equal bilaterally - Psychiatric Psychiatric: appropriate mood/affect, intact judgment & insight - Neurologic Neurologic: CNII-XII intact, moves all extremities Plan Activity: no restrictions Diet: low fat, low cholesterol, low salt Special Instructions: other (Stop all NSAID use. This includes Ibuprofen, Advil , Aleve, Goody's etc. ) Follow up with: URIAH MENDEZ MD [Primary Care Provider] - 3-5 Days Prescriptions: Lisinopril [Zestril] 20 mg PO DAILY #30 tablet Pantoprazole [Protonix TAB] 40 mg PO BID #60 tablet <MADHAV CROCKER - Last Filed: 09/19/17 07:21> Providers - Providers Date of Admission: 09/15/17 23:52 Attending physician: MADHAV CROCKER 09/15/17 23:52 Consult to Physician [CONS] Routine Comment: Consulting Provider: CHUCK CLARKE Physician Instructions: Reason For Exam: hematemesis Primary care physician: URIAH MENDEZ Hospitalization Hospital course: I saw and evaluated the patient. I agree with the findings and the plan of care as documented in the Nurse Practitioner's~note, with the following corrections and additions. Exam - Constitutional Vitals: Temp Pulse Resp BP Pulse Ox 98.3 F 110 H 22 130/89 100 09/18/17 13:20 09/18/17 13:20 09/18/17 13:20 09/18/17 13:20 09/18/17 13:20
[2017-09-18 19:00] VITALS: BP 130/89
== END 2017-09-18 15:09 | disposition home or self-care (01) | DRG 377 ==
LOC: ED 19:39 → 4A 23:52
PROVIDERS: ADMIT Internal Medicine; ATTEND Hospitalist
PROC: 30233N1 Transfusion of Nonautologous Red Blood Cells into Peripheral Vein, Percutaneous Approach (ICD-10-PCS; 2017-09-16)
PROC: 3E0234Z Introduction of Serum, Toxoid and Vaccine into Muscle, Percutaneous Approach (ICD-10-PCS; principal; 2017-09-17)
PROC: 0DB68ZX Excision of Stomach, Via Natural or Artificial Opening Endoscopic, Diagnostic (ICD-10-PCS; 2017-09-17)
DX: K25.4 Chronic or unspecified gastric ulcer with hemorrhage (principal); N17.0 Acute kidney failure with tubular necrosis; I50.32 Chronic diastolic (congestive) heart failure; D62 Acute posthemorrhagic anemia; K29.71 Gastritis, unspecified, with bleeding; I11.0 Hypertensive heart disease with heart failure; J44.9 Chronic obstructive pulmonary disease, unspecified; F41.9 Anxiety disorder, unspecified; F10.10 Alcohol abuse, uncomplicated; F32.9 Major depressive disorder, single episode, unspecified; K20.9 Esophagitis, unspecified; Z23 Encounter for immunization; Z79.82 Long term (current) use of aspirin; Z79.899 Other long term (current) drug therapy; Z82.49 Family history of ischemic heart disease and other diseases of the circulatory system
CPT/HCPCS: 36415; 70450; 70551; 71045; 80048; 80053; 81001; 83880; 85007; 85014; 85018; 85025; 85610; 85730; 86850; 86900; 86901; 86920; 88305; 88342; 90732; 93005; 93010; 99291; C9113; J1200; J2704; J7030; J7040; J7050; P9016

== ENCOUNTER 2018-09-14 09:51 | Inpatient (IN) | payer SELFPAY ==
[2018-09-14] MEDS ORDERED: ATIVAN IV ONE (10:52)
[2018-09-14] MEDS ORDERED: ATIVAN IV PRN ×3 (10:52)
[2018-09-14] MEDS ORDERED: D5/0.45NS 1,000 ML IV ONE (10:53)
--- NOTE | 2018-09-14 10:54 | Emergency Department Report ---
ED General Adult HPI - General Chief complaint: Seizure Stated complaint: SEIZURE Time Seen by Provider: 09/14/18 10:41 Source: patient, EMS (ems notes not available at time of chart dictation), RN notes reviewed, old records reviewed Mode of arrival: Stretcher Limitations: Other (patient can't recall all the events.) - History of Present Illness Initial comments: This is a 47-year-old gentleman. The patient has a history of hypertension, presumed GERD, gastritis, and alcohol dependence. He is brought to the hospital by emergency medical services for reported seizures 2. Patient thinks that he fell and hit his head but he is not certain. The patient has no physical pain at this time. The patient is not aware of a history of seizures. He reports his last alcohol consumption was last night. He denies headache, neck pain, chest pain, abdominal pain, shortness of breath, urinary symptoms, irritative urinary symptoms, and he denies homicidality, suicidality. He does admit to feeling "shaky." No additional history is available at this time. -: Sudden Radiation: non-radiation Severity scale (0 -10): 0 Improves with: none Worsens with: none - Related Data Previous Rx's Medication Instructions Recorded Last Taken Type Aspirin [Aspirin BABY CHEW TAB] 81 mg PO QDAY #30 tab.chew 10/31/16 1 Day Ago Rx ~09/16/17 Carvedilol [Coreg] 6.25 mg PO BID #60 tablet 12/07/16 2 Days Ago Rx ~09/14/17 60.25 mg Furosemide [Lasix TAB] 40 mg PO BID #60 tablet 12/07/16 2 Days Ago Rx ~09/14/17 40 mg Magnesium Oxide 400 mg PO BIDAC #60 tablet 12/07/16 1 Day Ago Rx ~09/16/17 Nitroglycerin [Nitrostat] 0.4 mg SL .Q5MIN PRN #10 tablet 12/07/16 1 Month Ago Rx ~08/17/17 Potassium Chloride [K-Dur] 20 meq PO BID #60 tab 12/07/16 1 Day Ago Rx ~09/16/17 Thiamine [Vitamin B-1] 100 mg PO QDAY #30 tablet 12/07/16 2 Days Ago Rx ~09/14/17 100 mg Lisinopril [Zestril] 20 mg PO DAILY #30 tablet 09/18/17 Unknown Rx Pantoprazole [Protonix TAB] 40 mg PO BID #60 tablet 09/18/17 Unknown Rx Allergies Allergy/AdvReac Type Severity Reaction Status Date / Time No Known Allergies Allergy Verified 10/29/16 17:29 ED Review of Systems ROS: Stated complaint: SEIZURE Other details as noted in HPI Constitutional: malaise Eyes: denies: vision change ENT: denies: epistaxis Respiratory: denies: cough Cardiovascular: denies: chest pain Gastrointestinal: denies: abdominal pain Genitourinary: denies: dysuria Musculoskeletal: denies: back pain Skin: denies: lesions Neurological: confusion Psychiatric: denies: auditory hallucinations, visual hallucinations, homicidal thoughts, suicidal thoughts ED Past Medical Hx - Past Medical History Hx Hypertension: Yes Hx Congestive Heart Failure: Yes Hx Psychiatric Treatment: Yes (ANXIETY / DEPRESSION) Hx COPD: Yes Hx HIV: No Additional medical history: HARD OF HEARING - Surgical History Past Surgical History?: No - Social History Smoking Status: Never Smoker Substance Use Type: Alcohol - Medications Home Medications: Home Medications Medication Instructions Recorded Confirmed Last Taken Type Aspirin [Aspirin BABY CHEW TAB] 81 mg PO QDAY #30 tab.chew 10/31/16 09/17/17 1 Day Ago Rx ~09/16/17 Carvedilol [Coreg] 6.25 mg PO BID #60 tablet 12/07/16 09/17/17 2 Days Ago Rx ~09/14/17 60.25 mg Furosemide [Lasix TAB] 40 mg PO BID #60 tablet 12/07/16 09/17/17 2 Days Ago Rx ~09/14/17 40 mg Magnesium Oxide 400 mg PO BIDAC #60 tablet 12/07/16 09/17/17 1 Day Ago Rx ~09/16/17 Nitroglycerin [Nitrostat] 0.4 mg SL .Q5MIN PRN #10 tablet 12/07/16 09/17/17 1 Month Ago Rx ~08/17/17 Potassium Chloride [K-Dur] 20 meq PO BID #60 tab 12/07/16 09/17/17 1 Day Ago Rx ~09/16/17 Thiamine [Vitamin B-1] 100 mg PO QDAY #30 tablet 12/07/16 09/17/17 2 Days Ago Rx ~09/14/17 100 mg Lisinopril [Zestril] 20 mg PO DAILY #30 tablet 09/18/17 Unknown Rx Pantoprazole [Protonix TAB] 40 mg PO BID #60 tablet 09/18/17 Unknown Rx ED Physical Exam - General Limitations: Other (patient somewhat confused, postictal) General appearance: alert, in no apparent distress - Head Head exam: Present: atraumatic, normocephalic - Eye Eye exam: Present: normal appearance, EOMI. Absent: nystagmus - ENT ENT exam: Present: mucous membranes dry, normal external ear exam, other (dry mucous membranes, obvious tongue fasciculations) - Neck Neck exam: Present: normal inspection, full ROM - Respiratory Respiratory exam: Present: normal lung sounds bilaterally. Absent: respiratory distress - Cardiovascular Cardiovascular Exam: Present: normal rhythm, tachycardia, normal heart sounds. Absent: systolic murmur, diastolic murmur, rubs, gallop - GI/Abdominal GI/Abdominal exam: Present: soft. Absent: distended, tenderness, guarding, rebound, rigid, pulsatile mass - Rectal Rectal exam: Present: deferred - Extremities Exam Extremities exam: Present: normal inspection, full ROM, other (2+ pulses noted in the bilateral upper, lower extremities. Compartments soft. No long bony tenderness. The pelvis is stable.). Absent: pedal edema, joint swelling, calf tenderness - Back Exam Back exam: Present: normal inspection, full ROM. Absent: tenderness, CVA tenderness (R), paraspinal tenderness, vertebral tenderness - Neurological Exam Neurological exam: Present: alert, oriented X3, other (Extraocular movements intact. Tongue midline. No facial droop. Facial sensation intact to light touch in the V1, V2, V3 distribution bilaterally. 5 and 5 strength in 4 extremities.. Sensation is intact to light touch in 4 extremities.). Absent: motor sensory deficit - Psychiatric Psychiatric exam: Present: anxious. Absent: homicidal ideation, suicidal ideation - Skin Skin exam: Present: warm, dry, intact, normal color. Absent: rash ED Course Vital Signs 09/14/18 09/14/18 09/14/18 10:24 10:27 10:30 Temperature 98.4 F Pulse Rate 142 H 146 H Respiratory 37 H 18 Rate Blood Pressure 197/125 197/125 O2 Sat by Pulse 97 96 Oximetry 09/14/18 09/14/18 09/14/18 10:46 10:48 11:00 Temperature Pulse Rate 134 H 130 H Respiratory 30 H 18 20 Rate Blood Pressure 180/108 180/106 O2 Sat by Pulse 96 96 97 Oximetry 09/14/18 09/14/18 09/14/18 11:36 11:46 12:00 Temperature Pulse Rate 119 H 115 H 109 H Respiratory 20 13 25 H Rate Blood Pressure 168/99 160/98 155/89 O2 Sat by Pulse 98 97 Oximetry 09/14/18 09/14/18 09/14/18 12:16 12:30 12:46 Temperature Pulse Rate 128 H 114 H 111 H Respiratory 38 H 41 H 23 Rate Blood Pressure 168/99 168/99 168/99 O2 Sat by Pulse 98 98 98 Oximetry 09/14/18 09/14/18 09/14/18 13:00 13:16 13:30 Temperature Pulse Rate 113 H 108 H Respiratory 20 31 H 19 Rate Blood Pressure 157/93 157/93 157/93 O2 Sat by Pulse 99 98 97 Oximetry 09/14/18 09/14/18 09/14/18 13:46 14:00 14:16 Temperature Pulse Rate 110 H 104 H 102 H Respiratory 18 24 24 Rate Blood Pressure 157/93 157/93 119/71 O2 Sat by Pulse 97 98 98 Oximetry 09/14/18 09/14/18 09/14/18 14:30 14:46 15:00 Temperature Pulse Rate 106 H 108 H 109 H Respiratory 24 26 H Rate Blood Pressure 119/71 119/71 136/85 O2 Sat by Pulse 98 99 96 Oximetry 09/14/18 09/14/18 15:16 15:30 Temperature Pulse Rate 104 H 101 H Respiratory Rate Blood Pressure 136/85 136/85 O2 Sat by Pulse 99 99 Oximetry - Reevaluation(s) Reevaluation #1: 09/14/18 11:13 Differential diagnosis, including not limited to: Alcohol withdrawal seizure, dehydration, electrolyte derangement, intracranial injury, cervical spine injury, pneumonia, urinary tract infection Assessment and plan: 47-year-old gentleman, with known history of alcohol dependence, with reported seizure 2, and physical exam and evidence, manifested by tachycardia, tongue fasciculations, hypertension of florid alcohol withdrawal. He is not hallucinating at this time. He does not have homicidality or suicidality. We will start the patient on alcohol withdrawal protocol. Psychiatric consultation is recommended. We will start the patient on IV Ativan, and D5 half-normal. Strongly recommend admission to the hospital for alcohol withdrawal, and alcohol withdrawal seizures. Discussed this with the patient, who verbalizes understanding. Reevaluation #2: 09/14/18 12:36 Laboratory studies have demonstrated leukopenia, thrombocytopenia, anion gap acidosis, transaminitis, which I suspect are secondary to the patient's alcohol use. I clinically do not suspect invasive bacterial illness. However, due to his laboratory abnormalities, and vital signs, we will treat the patient empirically for presumed systemic inflammatory response syndrome. . He also appears to have a component of starvation ketosis, and will be started on a dextrose infusion. Initial alcohol withdrawal scale is CIWA score 10 Hospital physician is paged to arrange admission. 09/14/18 19:22 Reevaluation #3: 09/14/18 12:52 Dr Butler accepts ED Medical Decision Making - Lab Data Result diagrams: 09/14/18 10:43 09/14/18 10:36 Vital Signs 09/14/18 09/14/18 09/14/18 10:24 10:27 10:30 Temperature 98.4 F Pulse Rate 142 H 146 H Respiratory 37 H 18 Rate Blood Pressure 197/125 197/125 O2 Sat by Pulse 97 96 Oximetry 09/14/18 09/14/18 09/14/18 10:46 10:48 11:00 Temperature Pulse Rate 134 H 130 H Respiratory 30 H 18 20 Rate Blood Pressure 180/108 180/106 O2 Sat by Pulse 96 96 97 Oximetry 09/14/18 09/14/18 09/14/18 11:36 11:46 12:00 Temperature Pulse Rate 119 H 115 H 109 H Respiratory 20 13 25 H Rate Blood Pressure 168/99 160/98 155/89 O2 Sat by Pulse 98 97 Oximetry 09/14/18 09/14/18 09/14/18 12:16 12:30 12:46 Temperature Pulse Rate 128 H 114 H 111 H Respiratory 38 H 41 H 23 Rate Blood Pressure 168/99 168/99 168/99 O2 Sat by Pulse 98 98 98 Oximetry 09/14/18 09/14/18 09/14/18 13:00 13:16 13:30 Temperature Pulse Rate 113 H 108 H Respiratory 20 31 H 19 Rate Blood Pressure 157/93 157/93 157/93 O2 Sat by Pulse 99 98 97 Oximetry 0309/14/18 09/14/18 13:46 14:00 14:16 Temperature Pulse Rate 110 H 104 H 102 H Respiratory 18 24 24 Rate Blood Pressure 157/93 157/93 119/71 O2 Sat by Pulse 97 98 98 Oximetry 09/14/18 09/14/18 09/14/18 14:30 14:46 15:00 Temperature Pulse Rate 106 H 108 H 109 H Respiratory 24 26 H Rate Blood Pressure 119/71 119/71 136/85 O2 Sat by Pulse 98 99 96 Oximetry 09/14/18 09/14/18 15:16 15:30 Temperature Pulse Rate 104 H 101 H Respiratory Rate Blood Pressure 136/85 136/85 O2 Sat by Pulse 99 99 Oximetry Lab Results 09/14/18 09/14/18 09/14/18 Range/Units 10:36 10:43 11:11 WBC 1.9 L* (4.5-11.0) K/mm3 RBC 3.88 (3.65-5.03) M/mm3 Hgb 13.8 (11.8-15.2) gm/dl Hct 41.3 (35.5-45.6) % MCV 106 H (84-94) fl MCH 36 H (28-32) pg MCHC 33 (32-34) % RDW 16.1 H (13.2-15.2) % Plt Count 96 L (140-440) K/mm3 Ector % (Auto) [employer] Traffic Control Specialist Add Manual Diff Complete Total Counted 100 Seg Neuts % (Manual) 68.0 (40.0-70.0) % Band Neutrophils % 0 % Lymphocytes % (Manual) 9.0 L (13.4-35.0) % Reactive Lymphs % (Man) 1.0 % Monocytes % (Manual) 21.0 H (0.0-7.3) % Eosinophils % (Manual) 0 (0.0-4.3) % Basophils % (Manual) 1.0 (0.0-1.8) % Metamyelocytes % 0 % Myelocytes % 0 % Promyelocytes % 0 % Blast Cells % 0 % Nucleated RBC % 1.0 H (0.0-0.9) % Seg Neutrophils # Man 1.3 L (1.8-7.7) K/mm3 Band Neutrophils # 0.0 K/mm3 Lymphocytes # (Manual) 0.2 L (1.2-5.4) K/mm3 Abs React Lymphs (Man) 0.0 K/mm3 Monocytes # (Manual) 0.4 (0.0-0.8) K/mm3 Eosinophils # (Manual) 0.0 (0.0-0.4) K/mm3 Basophils # (Manual) 0.0 (0.0-0.1) K/mm3 Metamyelocytes # 0.0 K/mm3 Myelocytes # 0.0 K/mm3 Promyelocytes # 0.0 K/mm3 Blast Cells # 0.0 K/mm3 WBC Morphology Not Reportable Hypersegmented Neuts Not Reportable Hyposegmented Neuts Not Reportable Hypogranular Neuts Not Reportable Smudge Cells Not Reportable Toxic Granulation Not Reportable Toxic Vacuolation Not Reportable Dohle Bodies Not Reportable Pelger-Huet Anomaly Not Reportable Mack Rods Not Reportable Platelet Estimate Cons Clumped Platelets Not Reportable Plt Clumps, EDTA Not Reportable Large Platelets Not Reportable Giant Platelets Not Reportable Platelet Satelliting Not Reportable Plt Morphology Comment Not Reportable RBC Morphology Not Reportable Dimorphic RBCs Not Reportable Polychromasia Not Reportable Hypochromasia Not Reportable Poikilocytosis Not Reportable Anisocytosis 1+ Microcytosis Not Reportable Macrocytosis Not Reportable Spherocytes Not Reportable Pappenheimer Bodies Not Reportable Sickle Cells Not Reportable Target Cells Not Reportable Tear Drop Cells Not Reportable Ovalocytes Not Reportable Helmet Cells Not Reportable Jackson-Cherry Log Bodies Not Reportable Llewellyn Rings Not Reportable Mallard Cells Not Reportable Bite Cells Not Reportable Crenated Cell Not Reportable Elliptocytes Not Reportable Acanthocytes (Spur) Not Reportable Rouleaux Not Reportable Hemoglobin C Crystals Not Reportable Schistocytes Not Reportable Malaria parasites Not Reportable Víctor Bodies Not Reportable Hem Pathologist Commnt No PT 15.8 H (12.2-14.9) Sec. INR 1.18 H (0.87-1.13) APTT 30.6 (24.2-36.6) Sec. Sodium 138 (137-145) mmol/L Potassium 4.8 (3.6-5.0) mmol/L Chloride 89.4 L (98-107) mmol/L Carbon Dioxide 8 L* (22-30) mmol/L Anion Gap 45 mmol/L BUN 12 (9-20) mg/dL Creatinine 1.6 H (0.8-1.5) mg/dL Estimated GFR 56 ml/min BUN/Creatinine Ratio 8 % Glucose 193 H (75-100) mg/dL Lactic Acid (0.7-2.0) mmol/L Calcium 9.6 (8.4-10.2) mg/dL Magnesium (1.7-2.3) mg/dL Total Bilirubin (0.1-1.2) mg/dL Direct Bilirubin (0-0.2) mg/dL Indirect Bilirubin mg/dL AST (5-40) units/L ALT (7-56) units/L Alkaline Phosphatase (35-129) units/L Ammonia (25-60) umol/L Total Creatine Kinase (55-170) units/L Total Protein (6.3-8.2) g/dL Albumin (3.9-5) g/dL Albumin/Globulin Ratio % Salicylates (2.8-20.0) mg/dL Acetaminophen (10.0-30.0) ug/mL Plasma/Serum Alcohol (0-0.07) % 09/14/18 09/14/18 09/14/18 Range/Units 11:11 12:41 12:41 WBC (4.5-11.0) K/mm3 RBC (3.65-5.03) M/mm3 Hgb (11.8-15.2) gm/dl Hct (35.5-45.6) % MCV (84-94) fl MCH (28-32) pg MCHC (32-34) % RDW (13.2-15.2) % Plt Count (140-440) K/mm3 Ector % (Auto) Add Manual Diff Total Counted Seg Neuts % (Manual) (40.0-70.0) % Band Neutrophils % % Lymphocytes % (Manual) (13.4-35.0) % Reactive Lymphs % (Man) % Monocytes % (Manual) (0.0-7.3) % Eosinophils % (Manual) (0.0-4.3) % Basophils % (Manual) (0.0-1.8) % Metamyelocytes % % Myelocytes % % Promyelocytes % % Blast Cells % % Nucleated RBC % (0.0-0.9) % Seg Neutrophils # Man (1.8-7.7) K/mm3 Band Neutrophils # K/mm3 Lymphocytes # (Manual) (1.2-5.4) K/mm3 Abs React Lymphs (Man) K/mm3 Monocytes # (Manual) (0.0-0.8) K/mm3 Eosinophils # (Manual) (0.0-0.4) K/mm3 Basophils # (Manual) (0.0-0.1) K/mm3 Metamyelocytes # K/mm3 Myelocytes # K/mm3 Promyelocytes # K/mm3 Blast Cells # K/mm3 WBC Morphology Hypersegmented Neuts Hyposegmented Neuts Hypogranular Neuts Smudge Cells Toxic Granulation Toxic Vacuolation Dohle Bodies Pelger-Huet Anomaly Mack Rods Platelet Estimate Clumped Platelets Plt Clumps, EDTA Large Platelets Giant Platelets Platelet Satelliting Plt Morphology Comment RBC Morphology Dimorphic RBCs Polychromasia Hypochromasia Poikilocytosis Anisocytosis Microcytosis Macrocytosis Spherocytes Pappenheimer Bodies Sickle Cells Target Cells Tear Drop Cells Ovalocytes Helmet Cells Jackson-Cherry Log Bodies Llewellyn Rings Mallard Cells Bite Cells Crenated Cell Elliptocytes Acanthocytes (Spur) Rouleaux Hemoglobin C Crystals Schistocytes Malaria parasites Víctor Bodies Hem Pathologist Commnt PT (12.2-14.9) Sec. INR (0.87-1.13) APTT (24.2-36.6) Sec. Sodium (137-145) mmol/L Potassium (3.6-5.0) mmol/L Chloride (98-107) mmol/L Carbon Dioxide (22-30) mmol/L Anion Gap mmol/L BUN (9-20) mg/dL Creatinine (0.8-1.5) mg/dL Estimated GFR ml/min BUN/Creatinine Ratio % Glucose (75-100) mg/dL Lactic Acid (0.7-2.0) mmol/L Calcium (8.4-10.2) mg/dL Magnesium 1.80 (1.7-2.3) mg/dL Total Bilirubin 1.80 H (0.1-1.2) mg/dL Direct Bilirubin 0.8 H (0-0.2) mg/dL Indirect Bilirubin 1.0 mg/dL AST 96 H (5-40) units/L ALT 32 (7-56) units/L Alkaline Phosphatase 150 H (35-129) units/L Ammonia 69.0 H (25-60) umol/L Total Creatine Kinase 126 (55-170) units/L Total Protein 9.0 H (6.3-8.2) g/dL Albumin 4.3 (3.9-5) g/dL Albumin/Globulin Ratio 0.9 % Salicylates < 0.3 L (2.8-20.0) mg/dL Acetaminophen (10.0-30.0) ug/mL Plasma/Serum Alcohol (0-0.07) % 09/14/18 09/14/18 09/14/18 Range/Units 12:41 12:41 12:41 WBC (4.5-11.0) K/mm3 RBC (3.65-5.03) M/mm3 Hgb (11.8-15.2) gm/dl Hct (35.5-45.6) % MCV (84-94) fl MCH (28-32) pg MCHC (32-34) % RDW (13.2-15.2) % Plt Count (140-440) K/mm3 Ector % (Auto) Add Manual Diff Total Counted Seg Neuts % (Manual) (40.0-70.0) % Band Neutrophils % % Lymphocytes % (Manual) (13.4-35.0) % Reactive Lymphs % (Man) % Monocytes % (Manual) (0.0-7.3) % Eosinophils % (Manual) (0.0-4.3) % Basophils % (Manual) (0.0-1.8) % Metamyelocytes % % Myelocytes % % Promyelocytes % % Blast Cells % % Nucleated RBC % (0.0-0.9) % Seg Neutrophils # Man (1.8-7.7) K/mm3 Band Neutrophils # K/mm3 Lymphocytes # (Manual) (1.2-5.4) K/mm3 Abs React Lymphs (Man) K/mm3 Monocytes # (Manual) (0.0-0.8) K/mm3 Eosinophils # (Manual) (0.0-0.4) K/mm3 Basophils # (Manual) (0.0-0.1) K/mm3 Metamyelocytes # K/mm3 Myelocytes # K/mm3 Promyelocytes # K/mm3 Blast Cells # K/mm3 WBC Morphology Hypersegmented Neuts Hyposegmented Neuts Hypogranular Neuts Smudge Cells Toxic Granulation Toxic Vacuolation Dohle Bodies Pelger-Huet Anomaly Mack Rods Platelet Estimate Clumped Platelets Plt Clumps, EDTA Large Platelets Giant Platelets Platelet Satelliting Plt Morphology Comment RBC Morphology Dimorphic RBCs Polychromasia Hypochromasia Poikilocytosis Anisocytosis Microcytosis Macrocytosis Spherocytes Pappenheimer Bodies Sickle Cells Target Cells Tear Drop Cells Ovalocytes Helmet Cells Jackson-Cherry Log Bodies Llewellyn Rings Yolis Cells Bite Cells Crenated Cell Elliptocytes Acanthocytes (Spur) Rouleaux Hemoglobin C Crystals Schistocytes Malaria parasites Víctor Bodies Hem Pathologist Commnt PT (12.2-14.9) Sec. INR (0.87-1.13) APTT (24.2-36.6) Sec. Sodium (137-145) mmol/L Potassium (3.6-5.0) mmol/L Chloride (98-107) mmol/L Carbon Dioxide (22-30) mmol/L Anion Gap mmol/L BUN (9-20) mg/dL Creatinine (0.8-1.5) mg/dL Estimated GFR ml/min BUN/Creatinine Ratio % Glucose (75-100) mg/dL Lactic Acid 8.50 H* (0.7-2.0) mmol/L Calcium (8.4-10.2) mg/dL Magnesium (1.7-2.3) mg/dL Total Bilirubin (0.1-1.2) mg/dL Direct Bilirubin (0-0.2) mg/dL Indirect Bilirubin mg/dL AST (5-40) units/L ALT (7-56) units/L Alkaline Phosphatase (35-129) units/L Ammonia (25-60) umol/L Total Creatine Kinase (55-170) units/L Total Protein (6.3-8.2) g/dL Albumin (3.9-5) g/dL Albumin/Globulin Ratio % Salicylates (2.8-20.0) mg/dL Acetaminophen < 5.0 L (10.0-30.0) ug/mL Plasma/Serum Alcohol < 0.01 (0-0.07) % - EKG Data Rate: tachycardia - EKG Data 09/14/18 11:14 Sinus tachycardia, left axis deviation, QTC prolonged, left ventricular hypertrophy, abnormal EKG, not having chest pain, this EKG is not morphologically consistent with ST elevation myocardial infarction. - Radiology Data Radiology results: pending, report reviewed, image reviewed X-ray of the chest suggest left lower lobe pneumonia. Atelectasis also suggested. Borderline cardiomegaly. Critical Care Time: Yes Critical care time in (mins) excluding proc time.: 45 Critical care attestation.: If time is entered above; I have spent that time in minutes in the direct care of this critically ill patient, excluding procedure time. ED Disposition Clinical Impression: Alcoholic ketosis, SIRS (systemic inflammatory response syndrome) Alcohol withdrawal seizure Qualifiers: Complication of substance-induced condition: with unspecified complication Qualified Code(s): F10.239 - Alcohol dependence with withdrawal, unspecified Disposition: DC-09 OP ADMIT IP TO THIS HOSP Is pt being admited?: Yes Condition: Fair
[2018-09-14] MEDS ORDERED: D5/0.45NS 1,000 ML IV SCH ×2 (11:00→13:00)
[2018-09-14 11:02] LABS: Hematocrit 41.3 % (35.5-45.6); Hemoglobin 13.8 gm/dl (11.8-15.2); Mean Corpuscular HGB Conc 33 % (32-34); Mean Corpuscular Hemoglobin 36 pg (28-32); Mean Corpuscular Volume 106 fl (84-94); Red Blood Count 3.88 M/mm3 (3.65-5.03); Red Cell Distribution Width 16.1 % (13.2-15.2)
[2018-09-14 11:34] LABS: Platelet Count 96 K/mm3 (140-440)
[2018-09-14 11:49] LABS: Albumin 4.3 g/dL (3.9-5); Bilirubin,Direct 0.8 mg/dL (0-0.2)
[2018-09-14 12:19] LABS: INR 1.18 (0.87-1.13); Partial Thromboplastin Time 30.6 Sec. (24.2-36.6)
[2018-09-14 12:20] LABS: Calcium 9.6 mg/dL (8.4-10.2)
[2018-09-14 12:31] LABS: Anisocytosis 1+; Eosinophils % (Manual) 0 % (0.0-4.3); Platelet Estimate Cons; Total Cells Counted 100
[2018-09-14] MEDS ORDERED: NACL 0.9% 1000 ML IV ONE (12:34)
[2018-09-14] MEDS ORDERED: KEPPRA 1,000 MG/NS 0.75% 100ML 1,000 MG/100 ML BAG IV ONE (12:53)
[2018-09-14] MEDS ORDERED: ROCEPHIN/NS 2 GM/100 ML 2 GM/100 ML BAG IV SCH (13:00)
[2018-09-14 14:22] LABS: Bilirubin,Urine NEG (Negative); Blood,Urine NEG (Negative); Color,Urine Yellow (Yellow); Hyaline Casts,Urine 1 /LPF; Mucus,Urine FEW /HPF; Protein,Urine >500 mg/dL (Negative)
[2018-09-14 14:30] LABS: Amphetamine Screen,Urine PRESUMPTIVE NEGATIVE; Benzodiazepines Screen,Urine PRESUMPTIVE NEGATIVE; Cannabinoid Screen,Urine PRESUMPTIVE NEGATIVE; Cocaine Screen,Urine PRESUMPTIVE NEGATIVE; Methadone Screen,Urine PRESUMPTIVE NEGATIVE; Opiate Screen,Urine PRESUMPTIVE NEGATIVE
--- NOTE | 2018-09-14 15:02 | Cat Scan Report ---
PROCEDURE: CT HEAD/BRAIN WO CON TECHNIQUE: CT images of the head were obtained without the use of IV contrast HISTORY: etoh withdrawal dz COMPARISONS: 09/15/2017 FINDINGS: No CT evidence of intracranial mass, hemorrhage, acute territorial infarction, or hydrocephalus. Intr acranial arteries are symmetric in density. Minimal patchy bilateral white matter low-attenuation is compatible with chronic microvascular ischemic changes. Calvarium is intact. Mild left ethmoid sinus mucosal thickening. There is a small amount of fluid in bilateral mastoid air cells. IMPRESSION: No CT evidence of acute intracranial abnormality. Mild sinus disease. Small amount of fluid is seen in bilateral mastoid air cells. This document is electronically signed by Cintia Puckett MD., September 14 2018 01:34:31 PM ET
--- NOTE | 2018-09-14 15:02 | XRay Report ---
PROCEDURE: XR CHEST 1V AP TECHNIQUE: Frontal chest x-ray HISTORY: etoh with drawal sz, ? aspiration COMPARISONS: 09/15/2017 FINDINGS: Cardiac silhouette is enlarged as previously with left ventricular configuration. There is silhouetti ng of left hemidiaphragm with left basal consolidation. A small effusion could also be present. There is mid left lung scarring. Lungs are otherwise clear. IMPRESSION: Left basal consolidation. Findings may represent aspiration. Recommend follow-up with 2 view chest x- ray or CT chest. Chronic cardiac enlargement with left ventricular configuration. No evidence for failure. This document is electronically signed by Sahra Trujillo MD., September 14 2018 01:37:10 PM ET
--- NOTE | 2018-09-14 15:02 | Cat Scan Report ---
PROCEDURE: CT CERVICAL SPINE WO CON TECHNIQUE: CT of the cervical spine was performed without the use of IV contrast HISTORY: etoh withdrawal dz COMPARISONS: None FINDINGS: There are degenerative disc changes at C4-5 and C5-6, with disc space narrowing and osteophyte format ion. No acute fracture or subluxation is seen. Enlarged left thyroid lobe IMPRESSION: No fracture or subluxation. Enlarged left thyroid lobe, which deviates the trachea to the right. This document is electronically signed by Cintia Puckett MD., September 14 2018 01:39:37 PM ET
[2018-09-14 15:34] VITALS: BP 136/85
[2018-09-14] MEDS ORDERED: DILAUDID IV PRN (17:30)
[2018-09-14] MEDS ORDERED: PERCOCET 5/325 PO PRN (17:30)
[2018-09-14] MEDS ORDERED: SODIUM CHLORIDE FLUSH SYRINGE 10 ML IV PRN (17:30)
[2018-09-14] MEDS ORDERED: TYLENOL PO PRN (17:30)
[2018-09-14] MEDS ORDERED: ZOFRAN IV PRN (17:30)
[2018-09-14] MEDS ORDERED: VITAMIN B-1 100 MG in NACL 0.9% 50 ML IV SCH (18:00)
[2018-09-14] MEDS ORDERED: ZESTRIL PO SCH (18:00)
[2018-09-14] MEDS ORDERED: VITAMIN B-1 PO SCH (18:00)
[2018-09-14] MEDS ORDERED: MAG-OX PO SCH (18:00)
[2018-09-14] MEDS ORDERED: D5NS 1,000 ML IV SCH (18:30)
[2018-09-14] MEDS ORDERED: FUROSEMIDE 40 MG PO SCH (22:00)
[2018-09-14] MEDS ORDERED: K-DUR PO SCH (22:00)
[2018-09-14] MEDS ORDERED: PEPCID IV SCH (22:00)
[2018-09-14] MEDS ORDERED: LASIX PO SCH (22:00)
[2018-09-14] MEDS ORDERED: COREG PO SCH (22:00)
[2018-09-14] MEDS ORDERED: SODIUM CHLORIDE FLUSH SYRINGE 10 ML IV SCH (22:00)
[2018-09-14] MEDS ORDERED: PROTONIX PO SCH (22:00)
--- NOTE | 2018-09-15 00:35 | Event Note ---
Date: 09/14/18 See Dictated H/p in reports Alcoholic ketoacidodis
--- NOTE | 2018-09-15 01:07 | Discharge Summary ---
The patient was evaluated in the Emergency Room. Date of admission is 09/14/2018, date of discharge 09/14/2018. The patient left AMA. HOSPITAL COURSE: The patient was admitted for alcoholic ketoacidosis, left lower lobe pneumonia, seizure disorder. The patient was initiated on IV Keppra, IV antibiotics and IV fluids. The patient did not want any of the treatments. The patient feels that he just tripped and fell down and does not need any treatment. The patient was counseled about the diagnoses. The patient wants to do get ready at home and does not want to be inpatient in the hospital. DISCHARGE DIAGNOSES: Left lower lobe pneumonia, alcoholic ketoacidosis, metabolic acidosis, neutropenia, thrombocytopenia. [facility]# [id number]/AMBROCIO
--- NOTE | 2018-09-15 01:18 | History and Physical Report ---
CHIEF COMPLAINT: Seizures x 2. HISTORY OF PRESENT ILLNESS: A 47-year-old apparently tripped and fell down. Hit his head, but is not certain. The patient was brought in by EMS for reported seizures x 2. The patient does not agree about seizures. The patient does alcohol on a regular basis. Last alcohol consumption was last night. No syncope. No chest pain. No shortness of breath. PAST MEDICAL HISTORY: Significant for congestive heart failure, anxiety, depression, COPD, hard of hearing. PAST SURGICAL HISTORY: None. SOCIAL HISTORY: Does not smoke. Alcohol on a regular basis, 6 pack of beer on a regular basis. FAMILY HISTORY: Hypertension. CURRENT MEDICATIONS: Coreg 6.25 twice a day and lisinopril 20 mg once a day, Protonix 40 mg once a day and Lasix 40 mg twice a day, magnesium oxide 400 mg twice a day, potassium 20 mEq twice a day. REVIEW OF SYSTEMS: Significant for reported seizures x 2, no postictal. No cough, no shortness of breath. A 14-point review of systems is done. Otherwise, negative. PHYSICAL EXAMINATION: GENERAL: Middle-aged male, cooperative during examination. Being examined by me with reluctant speech. The patient is reluctant to get examined. VITAL SIGNS: Temperature is 98.7, pulse is 66, respirations are 18, blood pressure 147/85, sats are 100%. HEENT: Unremarkable. Pupils equal and reactive. NECK: Supple, no lymphadenopathy, no thyromegaly. LUNGS: Clear to auscultation and percussion. Good air entry. CARDIOVASCULAR: S1, S2 heard. No gallop, no murmur, no rub. Apical impulse in left fifth intercostal space and midclavicular line. ABDOMEN: Soft and benign. No hepatosplenomegaly. No guarding, no rigidity. Hernial orifices are normal. EXTREMITIES: Good pedal pulses. No pedal edema. CENTRAL NERVOUS SYSTEM: Alert and oriented x 4, nonfocal exam. LABORATORY DATA: Significant for low white count of 1900, platelet count of 96,000. H and H is normal 13.8 and 41.3, MCH and MCV are high. Electrolytes are significant for sodium of 138, potassium of 4.8, chloride of 89.4, bicarbonate of 8, BUN and creatinine of 12 and 1.6, glucose is 193. Lactic acid is 8.5, calcium is 9.6, magnesium is 1.8, total bilirubin is 1.8, direct bilirubin is 0.8, AST is 96, alkaline phosphatase is 150, ammonia level is 69. Total creatinine kinase is 126, total protein is 9.0. Urine is negative. Head CT was negative. No CT evidence of acute intracranial abnormality. Mild sinus disease. Chest x-ray was normal. No acute findings. Left basilar consolidations findings may represent aspiration. Recommend follow up with a 2-view chest x-ray or CT of the chest. Chronic cardiac enlargement. C-spine CT, no fracture or subluxation. Enlarged left thyroid lobe. ASSESSMENT AND PLAN: 1. Left lower lobe pneumonia. The patient initiated on IV antibiotics. 2. ETOH dependence. CIWA protocol initiated. 3. Seizure disorder uncertain. IV Keppra started. 4. Lactic acidosis, etiology uncertain, not septic. Advice empiric antibiotics if necessary. 5. Metabolic acidosis secondary to alcohol. His bicarbonate is 8 with a large anion gap of about 40. The patient needs IV fluids. In summary, the patient has a left lower lobe pneumonia, lactic acidosis, alcoholic ketoacidosis, metabolic acidosis. The patient needs IV antibiotics, IV fluids and monitoring of electrolytes. The patient is also on IV Keppra. The patient is reluctant to get treated and examined. The patient may want to sign out against medical advice. JOB# [id number] RAZ/AMBROCIO
== END 2018-09-14 20:15 | disposition left against medical advice (07) | DRG 642 ==
LOC: ED 09:51 → 4A 12:52
PROVIDERS: ADMIT Internal Medicine; ATTEND Internal Medicine
DX: E88.89 Other specified metabolic disorders (principal); R65.10 Systemic inflammatory response syndrome (SIRS) of non-infectious origin without acute organ dysfunction; F10.239 Alcohol dependence with withdrawal, unspecified; E87.2 Acidosis; R56.9 Unspecified convulsions; Z53.21 Procedure and treatment not carried out due to patient leaving prior to being seen by health care provider; Y90.9 Presence of alcohol in blood, level not specified; F41.9 Anxiety disorder, unspecified; F32.9 Major depressive disorder, single episode, unspecified; J44.9 Chronic obstructive pulmonary disease, unspecified; Z79.82 Long term (current) use of aspirin; Z79.899 Other long term (current) drug therapy; I11.0 Hypertensive heart disease with heart failure; I50.9 Heart failure, unspecified
CPT/HCPCS: 36415; 70450; 71045; 72125; 80048; 80076; 80307; 80320; 81001; 82140; 82550; 83735; 85007; 85025; 85610; 85730; 87040; 93005; 93010; G0378; G0480; J0696; J1953; J2060; J7030

== ENCOUNTER 2019-07-01 10:55 | Inpatient (IN) | payer OTHER ==
--- NOTE | 2019-07-01 11:42 | Emergency Department Report ---
ED Shortness of Breath HPI - General Chief Complaint: Dyspnea/Respdistress Stated Complaint: BILATERAL LOWER EXTREMITY SWELLING Time Seen by Provider: 07/01/19 11:18 Source: patient, EMS Mode of arrival: Stretcher Limitations: No Limitations - History of Present Illness Initial Comments: Mr. Carreon is a 48 yo male with hx of HTN, CHF, alcohol abuse, GI bleed who presents with shortness of breath and leg swelling for several days. Due to leg swelling, it is difficult for him to get around due to leg swelling. Has not been under the care of a physician in 5 years. He knows that his condition has gotten worse due to the lack of care. Last drink of alcohol yesterday afternoon. Denies pain. MD Complaint: shortness of breath -: Gradual, days(s) Severity: moderate Consistency: constant Improves With: nothing Worsens With: exertion Known History Of: congestive heart failure Context: medication noncompliance Associated Symptoms: other (leg swelling) - Related Data Previous Rx's Medication Instructions Recorded Last Taken Type Aspirin [Aspirin BABY CHEW TAB] 81 mg PO QDAY #30 tab.chew 10/31/16 1 Day Ago Rx ~09/16/17 Furosemide [Lasix TAB] 40 mg PO BID #60 tablet 12/07/16 2 Days Ago Rx ~09/14/17 40 mg Magnesium Oxide 400 mg PO BIDAC #60 tablet 12/07/16 1 Day Ago Rx ~09/16/17 Nitroglycerin [Nitrostat] 0.4 mg SL .Q5MIN PRN #10 tablet 12/07/16 1 Month Ago Rx ~08/17/17 Potassium Chloride [K-Dur] 20 meq PO BID #60 tab 12/07/16 1 Day Ago Rx ~09/16/17 Thiamine [Vitamin B-1] 100 mg PO QDAY #30 tablet 12/07/16 2 Days Ago Rx ~09/14/17 100 mg carvediloL [Coreg] 6.25 mg PO BID #60 tablet 12/07/16 2 Days Ago Rx ~09/14/17 60.25 mg Lisinopril [Zestril] 20 mg PO DAILY #30 tablet 09/18/17 Unknown Rx Pantoprazole [Protonix TAB] 40 mg PO BID #60 tablet 09/18/17 Unknown Rx Allergies Allergy/AdvReac Type Severity Reaction Status Date / Time No Known Allergies Allergy Verified 07/01/19 11:20 ED Review of Systems ROS: Stated complaint: BILATERAL LOWER EXTREMITY SWELLING Other details as noted in HPI Comment: All other systems reviewed and negative Constitutional: malaise. denies: fever Respiratory: shortness of breath Cardiovascular: denies: chest pain, palpitations Gastrointestinal: denies: abdominal pain, nausea, vomiting ED Past Medical Hx - Past Medical History Previous Medical History?: Yes Hx Hypertension: Yes Hx Congestive Heart Failure: Yes Hx Psychiatric Treatment: Yes (ANXIETY / DEPRESSION) Hx COPD: Yes Hx HIV: No Additional medical history: HARD OF HEARING - Surgical History Past Surgical History?: No - Family History Family history: hypertension - Social History Smoking Status: Never Smoker Substance Use Type: Alcohol - Medications Home Medications: Home Medications Medication Instructions Recorded Confirmed Last Taken Type Aspirin [Aspirin BABY CHEW TAB] 81 mg PO QDAY #30 tab.chew 10/31/16 09/17/17 1 Day Ago Rx ~09/16/17 Furosemide [Lasix TAB] 40 mg PO BID #60 tablet 12/07/16 09/17/17 2 Days Ago Rx ~09/14/17 40 mg Magnesium Oxide 400 mg PO BIDAC #60 tablet 12/07/16 09/17/17 1 Day Ago Rx ~09/16/17 Nitroglycerin [Nitrostat] 0.4 mg SL .Q5MIN PRN #10 tablet 12/07/16 09/17/17 1 Month Ago Rx ~08/17/17 Potassium Chloride [K-Dur] 20 meq PO BID #60 tab 12/07/16 09/17/17 1 Day Ago Rx ~09/16/17 Thiamine [Vitamin B-1] 100 mg PO QDAY #30 tablet 12/07/16 09/17/17 2 Days Ago Rx ~09/14/17 100 mg carvediloL [Coreg] 6.25 mg PO BID #60 tablet 12/07/16 09/17/17 2 Days Ago Rx ~09/14/17 60.25 mg Lisinopril [Zestril] 20 mg PO DAILY #30 tablet 09/18/17 Unknown Rx Pantoprazole [Protonix TAB] 40 mg PO BID #60 tablet 09/18/17 Unknown Rx ED Physical Exam - General Limitations: No Limitations General appearance: alert, in no apparent distress, other (appears chronically ill) - Head Head exam: Present: atraumatic, normocephalic - Eye Eye exam: Present: normal appearance, other (periorbital edema) - ENT ENT exam: Present: mucous membranes moist - Neck Neck exam: Present: normal inspection, full ROM - Respiratory Respiratory exam: Present: decreased breath sounds. Absent: respiratory distress, wheezes, rales, rhonchi, chest wall tenderness, accessory muscle use - Cardiovascular Cardiovascular Exam: Present: normal rhythm, tachycardia, normal heart sounds. Absent: systolic murmur, diastolic murmur, rubs, gallop - GI/Abdominal GI/Abdominal exam: Present: soft, distended, normal bowel sounds. Absent: tenderness, guarding, rebound - Rectal Rectal exam: Present: deferred - Extremities Exam Extremities exam: Present: other (edematous lower extremities with thick lichenified skin indurated hyperpigmented) - Neurological Exam Neurological exam: Present: alert, oriented X3 - Psychiatric Psychiatric exam: Present: normal affect, normal mood - Skin Skin exam: Present: warm, dry, intact, normal color. Absent: rash ED Course Vital Signs 07/01/19 07/01/19 07/01/19 11:06 11:15 11:16 Temperature 98.6 F Pulse Rate 117 H 122 H 129 H Respiratory 15 22 16 Rate Blood Pressure 167/110 167/110 Blood Pressure [Right] O2 Sat by Pulse 93 98 Oximetry 07/01/19 07/01/19 11:20 13:11 Temperature Pulse Rate 127 H Respiratory 22 18 Rate Blood Pressure Blood Pressure 167/110 [Right] O2 Sat by Pulse 96 Oximetry ED Medical Decision Making - Lab Data Result diagrams: 07/01/19 11:57 07/01/19 11:57 Laboratory Results - last 24 hr 07/01/19 07/01/19 07/01/19 11:57 11:57 11:57 WBC 1.6 L* RBC 2.94 L Hgb 9.7 L Hct 29.7 L MCV 101 H MCH 33 H MCHC 33 RDW 19.7 H Plt Count 71 L [place] % (Auto) Clinical Trial Manager Baso % (Auto) Clinical Trial Manager Seg Neutrophils % Clinical Trial Manager Sodium 144 Potassium 4.7 Chloride 104.1 Carbon Dioxide 15 L Anion Gap 30 BUN 11 Creatinine 1.3 Estimated GFR > 60 BUN/Creatinine Ratio 8 Glucose 60 L Lactic Acid 3.10 H* Calcium 8.6 Total Bilirubin 1.50 H AST 35 ALT 11 Alkaline Phosphatase 195 H NT-Pro-B Natriuret Pep Total Protein 8.6 H Albumin 4.1 Albumin/Globulin Ratio 0.9 Lipase 99 H Urine Bilirubin Urine RBC (Auto) U Epithel Cells (Auto) Plasma/Serum Alcohol 07/01/19 07/01/19 07/01/19 11:57 11:57 13:07 WBC RBC Hgb Hct MCV MCH MCHC RDW Plt Count [place] % (Auto) Baso % (Auto) Seg Neutrophils % Sodium Potassium Chloride Carbon Dioxide Anion Gap BUN Creatinine Estimated GFR BUN/Creatinine Ratio Glucose Lactic Acid Calcium Total Bilirubin AST ALT Alkaline Phosphatase NT-Pro-B Natriuret Pep 2606 H Total Protein Albumin Albumin/Globulin Ratio Lipase Urine Bilirubin Neg Urine RBC (Auto) 2.0 U Epithel Cells (Auto) < 1.0 Plasma/Serum Alcohol 0.24 H - EKG Data 07/01/19 11:45 EKG obtained 1119 Sinus tachycardia rate 120 bpm abnormal axis no ST elevation nonspecific T-wave pattern prolonged QT interval - Radiology Data Radiology results: report reviewed stable mild cardiomegaly chest radiograph radiology impression - Medical Decision Making Mr. Carreon presents with leg swelling and shortness of breath. Has acute heart failure with significant lower extremity swelling. New findings of pancytopenia ?cause liver disease etiology at this time not evident. Has had persistent tachycardia with elevated blood alcohol level. No withdrawal symptoms curre ntly. Placed on CIWA protocol Diagnoses: acute heart failure, pancytopenia, alcoholic ketoacidosis, acute alcohol ingestion admitted to hospitalist service in fair condition Critical care attestation.: If time is entered above; I have spent that time in minutes in the direct care of this critically ill patient, excluding procedure time. ED Disposition Clinical Impression: Alcoholic ketoacidosis, SIRS (systemic inflammatory response syndrome), Pancytopenia, Acute heart failure, Tachycardia Disposition: DC09 OP ADMIT IP TO THIS HOSP Is pt being admited?: Yes Does the pt Need Aspirin: No Condition: Stable
[2019-07-01 12:24] LABS: Hematocrit 29.7 % (35.5-45.6); Hemoglobin 9.7 gm/dl (11.8-15.2); Mean Corpuscular HGB Conc 33 % (32-34); Mean Corpuscular Volume 101 fl (84-94); Red Blood Count 2.94 M/mm3 (3.65-5.03); Red Cell Distribution Width 19.7 % (13.2-15.2)
[2019-07-01 12:28] LABS: Platelet Count 71 K/mm3 (140-440)
--- NOTE | 2019-07-01 12:31 | XRay Report ---
CHEST 1 VIEW 07/01/2019 11:38 AM INDICATION / CLINICAL INFORMATION: Tachycardia. COMPARISON: Chest x-ray on 09/14/2018. FINDINGS: SUPPORT DEVICES: None. HEART / MEDIASTINUM: Stable mild cardiomegaly. LUNGS / PLEURA: No significant pulmonary or pleural abnormality. No pneumothorax. ADDITIONAL FINDINGS: No significant additional findings. IMPRESSION: 1. No acute findings. Signer Name: Ronan Colbert MD Signed: 07/01/2019 12:26 PM Workstation Name: [employer]
[2019-07-01 12:47] LABS: Alanine Aminotransferase 11 units/L (7-56); Albumin 4.1 g/dL (3.9-5); BUN/Creatinine Ratio 8; Blood Urea Nitrogen 11 mg/dL (9-20); Calcium 8.6 mg/dL (8.4-10.2); Hemolysis Index 5
[2019-07-01] MEDS ORDERED: ACETAMINOPHEN 500 MG TAB PO ONE (12:59)
[2019-07-01 14:10] LABS: Bacteria,Urine 1+ /HPF (Negative); Bilirubin,Urine NEG (Negative); Blood,Urine SM (Negative); Color,Urine Yellow (Yellow); Hyaline Casts,Urine 6 /LPF; Mucus,Urine FEW /HPF; WBC,Urine < 1.0 /HPF (0.0-6.0)
[2019-07-01] MEDS ORDERED: FUROSEMIDE 40 MG/4 ML INJ IV ONE (14:25)
[2019-07-01] MEDS ORDERED: LISINOPRIL 20 MG TAB PO ONE (14:25)
[2019-07-01] MEDS ORDERED: carvediloL 6.25 MG TAB PO ONE (14:25)
[2019-07-01 14:27] LABS: Anisocytosis Few; Platelet Estimate Consistent w Auto; Total Cells Counted 100
[2019-07-01] MEDS ORDERED: chlordiazePOXIDE 25 MG CAP PO PRN (16:42)
[2019-07-01] MEDS ORDERED: ACETAMINOPHEN 500 MG TAB PO PRN (16:50)
[2019-07-01] MEDS ORDERED: LORazepam 2 MG/ML VIAL IV ONE (16:51)
[2019-07-01] MEDS ORDERED: LORazepam 2 MG/ML VIAL ONE (16:57)
[2019-07-01] MEDS ORDERED: METOCLOPRAMIDE 10 MG/2 ML INJ IV PRN (20:15)
[2019-07-01] MEDS ORDERED: ONDANSETRON 4 MG/2 ML INJ IV PRN (20:15)
[2019-07-01] MEDS ORDERED: ACETAMINOPHEN 325 MG TAB PO PRN (20:15)
--- NOTE | 2019-07-01 20:15 | History and Physical Report ---
History of Present Illness Date of examination: 07/01/19 Date of admission: 07/01/19 14:26 Medications and Allergies Allergies Allergy/AdvReac Type Severity Reaction Status Date / Time No Known Allergies Allergy Verified 07/01/19 11:20 Home Medications Medication Instructions Recorded Confirmed Last Taken Type Aspirin [Aspirin BABY CHEW TAB] 81 mg PO QDAY #30 tab.chew 10/31/16 09/17/17 1 Day Ago Rx ~09/16/17 Furosemide [Lasix TAB] 40 mg PO BID #60 tablet 12/07/16 09/17/17 2 Days Ago Rx ~09/14/17 40 mg Magnesium Oxide 400 mg PO BIDAC #60 tablet 12/07/16 09/17/17 1 Day Ago Rx ~09/16/17 Nitroglycerin [Nitrostat] 0.4 mg SL .Q5MIN PRN #10 tablet 12/07/16 09/17/17 1 Month Ago Rx ~08/17/17 Potassium Chloride [K-Dur] 20 meq PO BID #60 tab 12/07/16 09/17/17 1 Day Ago Rx ~09/16/17 Thiamine [Vitamin B-1] 100 mg PO QDAY #30 tablet 12/07/16 09/17/17 2 Days Ago Rx ~09/14/17 100 mg carvediloL [Coreg] 6.25 mg PO BID #60 tablet 12/07/16 09/17/17 2 Days Ago Rx ~09/14/17 60.25 mg Lisinopril [Zestril] 20 mg PO DAILY #30 tablet 09/18/17 Unknown Rx Pantoprazole [Protonix TAB] 40 mg PO BID #60 tablet 09/18/17 Unknown Rx Active Meds: Active Medications Acetaminophen (Tylenol) 1,000 mg PO PRN PRN PRN Reason: Pain, Mild (1-3) Chlordiazepoxide HCl (Librium) 50 mg PO Q1H PRN PRN Reason: CIWA-Ar 8-15 Lorazepam (Ativan) 2 mg PO Q1H PRN PRN Reason: CIWA-Ar 8-15 Exam - Constitutional Vitals: Temp Pulse Resp BP Pulse Ox 98.6 F 97 H 28 H 163/93 97 07/01/19 11:16 07/01/19 20:13 07/01/19 18:45 07/01/19 18:45 07/01/19 18:45 Results - Labs CBC & Chem 7: 07/01/19 11:57 07/01/19 11:57 Labs: Laboratory Last Values WBC 1.6 K/mm3 (4.5-11.0) L* 07/01/19 11:57 RBC 2.94 M/mm3 (3.65-5.03) L 07/01/19 11:57 Hgb 9.7 gm/dl (11.8-15.2) L 07/01/19 11:57 Hct 29.7 % (35.5-45.6) L 07/01/19 11:57 MCV 101 fl (84-94) H 07/01/19 11:57 MCH 33 pg (28-32) H 07/01/19 11:57 MCHC 33 % (32-34) 07/01/19 11:57 RDW 19.7 % (13.2-15.2) H 07/01/19 11:57 Plt Count 71 K/mm3 (140-440) L 07/01/19 11:57 [place] % (Auto) [employer] Floor[employer] 07/01/19 11:57 Baso % (Auto) [employer] Floorperson 07/01/19 11:57 Add Manual Diff Complete 07/01/19 11:57 Total Counted 100 07/01/19 11:57 Seg Neutrophils % [employer] Floor[employer] 07/01/19 11:57 Seg Neuts % (Manual) 36.0 % (40.0-70.0) L 07/01/19 11:57 Band Neutrophils % 0 % 07/01/19 11:57 Lymphocytes % (Manual) 36.0 % (13.4-35.0) H 07/01/19 11:57 Reactive Lymphs % (Man) 0 % 07/01/19 11:57 Monocytes % (Manual) 18.0 % (0.0-7.3) H 07/01/19 11:57 Eosinophils % (Manual) 5.0 % (0.0-4.3) H 07/01/19 11:57 Basophils % (Manual) 5.0 % (0.0-1.8) H 07/01/19 11:57 Metamyelocytes % 0 % 07/01/19 11:57 Myelocytes % 0 % 07/01/19 11:57 Promyelocytes % 0 % 07/01/19 11:57 Blast Cells % 0 % 07/01/19 11:57 Nucleated RBC % Not Reportable 07/01/19 11:57 Seg Neutrophils # Man 0.6 K/mm3 (1.8-7.7) L 07/01/19 11:57 Band Neutrophils # 0.0 K/mm3 07/01/19 11:57 Lymphocytes # (Manual) 0.6 K/mm3 (1.2-5.4) L 07/01/19 11:57 Abs React Lymphs (Man) 0.0 K/mm3 07/01/19 11:57 Monocytes # (Manual) 0.3 K/mm3 (0.0-0.8) 07/01/19 11:57 Eosinophils # (Manual) 0.1 K/mm3 (0.0-0.4) 07/01/19 11:57 Basophils # (Manual) 0.1 K/mm3 (0.0-0.1) 07/01/19 11:57 Metamyelocytes # 0.0 K/mm3 07/01/19 11:57 Myelocytes # 0.0 K/mm3 07/01/19 11:57 Promyelocytes # 0.0 K/mm3 07/01/19 11:57 Blast Cells # 0.0 K/mm3 07/01/19 11:57 WBC Morphology Not Reportable 07/01/19 11:57 Hypersegmented Neuts Not Reportable 07/01/19 11:57 Hyposegmented Neuts Not Reportable 07/01/19 11:57 Hypogranular Neuts Not Reportable 07/01/19 11:57 Smudge Cells Not Reportable 07/01/19 11:57 Toxic Granulation Not Reportable 07/01/19 11:57 Toxic Vacuolation Not Reportable 07/01/19 11:57 Dohle Bodies Not Reportable 07/01/19 11:57 Pelger-Huet Anomaly Not Reportable 07/01/19 11:57 Mack Rods Not Reportable 07/01/19 11:57 Platelet Estimate Consistent w auto 07/01/19 11:57 Clumped Platelets Not Reportable 07/01/19 11:57 Plt Clumps, EDTA Not Reportable 07/01/19 11:57 Large Platelets Not Reportable 07/01/19 11:57 Giant Platelets Not Reportable 07/01/19 11:57 Platelet Satelliting Not Reportable 07/01/19 11:57 Plt Morphology Comment Not Reportable 07/01/19 11:57 RBC Morphology Not Reportable 07/01/19 11:57 Dimorphic RBCs Not Reportable 07/01/19 11:57 Polychromasia Not Reportable 07/01/19 11:57 Hypochromasia Not Reportable 07/01/19 11:57 Poikilocytosis Not Reportable 07/01/19 11:57 Anisocytosis Few 07/01/19 11:57 Microcytosis Not Reportable 07/01/19 11:57 Macrocytosis Not Reportable 07/01/19 11:57 Spherocytes Not Reportable 07/01/19 11:57 Pappenheimer Bodies Not Reportable 07/01/19 11:57 Sickle Cells Not Reportable 07/01/19 11:57 Target Cells Not Reportable 07/01/19 11:57 Tear Drop Cells Not Reportable 07/01/19 11:57 Ovalocytes Not Reportable 07/01/19 11:57 Helmet Cells Not Reportable 07/01/19 11:57 [place] Bodies Not Reportable 07/01/19 11:57 [place] Rings Not Reportable 07/01/19 11:57 [place] Cells Not Reportable 07/01/19 11:57 Bite Cells Not Reportable 07/01/19 11:57 Crenated Cell Not Reportable 07/01/19 11:57 Elliptocytes Not Reportable 07/01/19 11:57 Acanthocytes (Spur) Not Reportable 07/01/19 11:57 Rouleaux Not Reportable 07/01/19 11:57 Hemoglobin C Crystals Not Reportable 07/01/19 11:57 Schistocytes Not Reportable 07/01/19 11:57 Malaria parasites Not Reportable 07/01/19 11:57 Víctor Bodies Not Reportable 07/01/19 11:57 Hem Pathologist Commnt No 07/01/19 11:57 Sodium 144 mmol/L (137-145) 07/01/19 11:57 Potassium 4.7 mmol/L (3.6-5.0) 07/01/19 11:57 Chloride 104.1 mmol/L (98-107) 07/01/19 11:57 Carbon Dioxide 15 mmol/L (22-30) L 07/01/19 11:57 Anion Gap 30 mmol/L 07/01/19 11:57 BUN 11 mg/dL (9-20) 07/01/19 11:57 Creatinine 1.3 mg/dL (0.8-1.5) 07/01/19 11:57 Estimated GFR > 60 ml/min 07/01/19 11:57 BUN/Creatinine Ratio 8 % 07/01/19 11:57 Glucose 60 mg/dL (75-100) L 07/01/19 11:57 Lactic Acid 3.10 mmol/L (0.7-2.0) H* 07/01/19 16:54 Calcium 8.6 mg/dL (8.4-10.2) 07/01/19 11:57 Total Bilirubin 1.50 mg/dL (0.1-1.2) H 07/01/19 11:57 AST 35 units/L (5-40) 07/01/19 11:57 ALT 11 units/L (7-56) 07/01/19 11:57 Alkaline Phosphatase 195 units/L (35-129) H 07/01/19 11:57 NT-Pro-B Natriuret Pep 2606 pg/mL (0-450) H 07/01/19 11:57 Total Protein 8.6 g/dL (6.3-8.2) H 07/01/19 11:57 Albumin 4.1 g/dL (3.9-5) 07/01/19 11:57 Albumin/Globulin Ratio 0.9 % 07/01/19 11:57 Lipase 99 units/L (13-60) H 07/01/19 11:57 Urine Color Yellow (Yellow) 07/01/19 13:07 Urine Turbidity Clear (Clear) 07/01/19 13:07 Urine pH 5.0 (5.0-7.0) 07/01/19 13:07 Ur Specific [place] 1.016 (1.003-1.030) 07/01/19 13:07 Urine Protein 100 mg/dl mg/dL (Negative) 07/01/19 13:07 Urine Glucose (UA) Neg mg/dL (Negative) 07/01/19 13:07 Urine Ketones 20 mg/dL (Negative) 07/01/19 13:07 Urine Blood Sm (Negative) 07/01/19 13:07 Urine Nitrite Neg (Negative) 07/01/19 13:07 Urine Bilirubin Neg (Negative) 07/01/19 13:07 Urine Urobilinogen 4.0 mg/dL (<2.0) 07/01/19 13:07 Ur Leukocyte Esterase Neg (Negative) 07/01/19 13:07 Urine WBC (Auto) < 1.0 /HPF (0.0-6.0) 07/01/19 13:07 Urine RBC (Auto) 2.0 /HPF (0.0-6.0) 07/01/19 13:07 U Epithel Cells (Auto) < 1.0 /HPF (0-13.0) 07/01/19 13:07 Urine Bacteria (Auto) 1+ /HPF (Negative) 07/01/19 13:07 Hyaline Casts 6 /LPF 07/01/19 13:07 Urine Mucus Few /HPF 07/01/19 13:07 Plasma/Serum Alcohol 0.24 % (0-0.07) H 07/01/19 11:57
[2019-07-01] MEDS: LORazepam 2 MG TAB PO PRN ×2 (21:17→22:47)
[2019-07-01] MEDS: POTASSIUM CHLORIDE ER 20 MEQ TAB PO SCH (21:17)
[2019-07-01] MEDS ORDERED: FAMOTIDINE 20 MG TAB PO SCH (22:00)
--- NOTE | 2019-07-02 05:02 | Event Note ---
Date: 07/01/19 See H/p in reports CHF exacerbatiom Daily I/o's Daily weights ECHO for EF
[2019-07-02] MEDS ORDERED: NITROGLYCERIN 0.4 MG TAB SUBL SL PRN (05:08)
[2019-07-02 05:11] LABS: Hematocrit 30.3 % (35.5-45.6); Hemoglobin 9.9 gm/dl (11.8-15.2); Mean Corpuscular HGB Conc 33 % (32-34); Mean Corpuscular Volume 101 fl (84-94); Red Cell Distribution Width 19.8 % (13.2-15.2)
--- NOTE | 2019-07-02 05:13 | Event Note ---
Date: 07/01/19 See H/p in reports CHF exacerbation ECHO ordered
[2019-07-02 05:30] LABS: Platelet Count 60 K/mm3 (140-440)
[2019-07-02 05:31] LABS: Alanine Aminotransferase 10 units/L (7-56); Albumin 3.9 g/dL (3.9-5); BUN/Creatinine Ratio 9; Blood Urea Nitrogen 11 mg/dL (9-20); Calcium 8.7 mg/dL (8.4-10.2); Hemolysis Index 8
--- NOTE | 2019-07-02 05:50 | History and Physical Report ---
CHIEF COMPLAINT: Increasing shortness of breath for 1 week. HISTORY OF PRESENT ILLNESS: The patient is a 48-year-old -[place] male, noncompliant with medications; and history of hypertension, CHF, ETOH dependence and GI bleed in the past, who comes in for bilateral leg swelling and shortness of breath on minimal exertion. This has been going on for months, but more so for the last 1 week. The patient has orthopnea. The patient has class 4 NYHA symptoms. 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 Last alcohol consumption was yesterday afternoon. No withdrawal symptoms at this point. Shortness of breath on very minimal exertion. No chest pain. No palpitations. PAST MEDICAL HISTORY: As mentioned, hypertension, congestive heart failure, anxiety/depression, COPD, deafness. PAST SURGICAL HISTORY: None. FAMILY HISTORY: Hypertension. SOCIAL HISTORY: Does not smoke, alcohol on a regular basis. CURRENT MEDICATIONS: Include Lasix 40 mg twice a day, potassium twice a day, Coreg 6.25 b.i.d., lisinopril 20 mg once a day, Protonix 40 mg twice a day. REVIEW OF SYSTEMS: Significant for shortness of breath on minimal exertion and orthopnea present. Bilateral leg swelling present. No chest pain. Otherwise, 14-point review of systems is negative. PHYSICAL EXAMINATION: GENERAL: Middle-aged male, looks older than his age. VITAL SIGNS: Blood pressure is 167/110, temperature is 98.6, pulse is 117, respirations are 15, sats are 93% to 98%. HEENT: Unremarkable. Pupils are equal and reactive. NECK: Supple. No lymphadenopathy, no thyromegaly. Jugular venous distention is present. LUNGS: Scattered rales bilaterally. CARDIOVASCULAR: S1, S2 heard. No gallop, no murmur, no rub. Apical impulse in left fifth intercostal space and midclavicular line. ABDOMEN: Soft and benign. No hepatosplenomegaly. No guarding, no rigidity. Hernial orifices are normal. EXTREMITIES: Good pedal pulses. 3+ pedal edema present. CENTRAL NERVOUS SYSTEM: Alert and oriented x 4, nonfocal exam. SKIN: Normal. LABORATORY DATA: White count is 1600, H and H is 9.7 and 29.7, platelet count is 71,000. Sodium is 144, potassium is 4.7, chloride is 104, bicarbonate is 15, BUN and creatinine is 11 and 1.3. A1c is 4.7. Lactic acid is ____ 2.7. Total bilirubin is 1.5. BNP is 2606. Lipase is 99. Urine is normal. Alcohol level is 0.24. IMAGING: EKG shows normal sinus rhythm, heart rate of 98 per minute. Otherwise, second EKG shows heart rate of 121 per minute, sinus or ectopic atrial tachycardia present. No acute ST-T wave changes. Chest x-ray, no acute findings. ASSESSMENT AND PLAN: 1. Congestive heart failure exacerbation. The patient initiated on IV Lasix and potassium. Echocardiogram ordered for ejection fraction. Also, the patient is on beta blockers and SERA inhibitors. Cardiology consult requested. 2. Alcoholic ketoacidosis. The patient's bicarbonate is 15, lactic acid is 3.1. IV fluids and CIWA protocol and IV thiamine. 3. Hypertension. Continue antihypertensives. 4. ETOH dependence. The patient initiated on CIWA protocol. 5. Hypomagnesemia. The patient is on magnesium. 6. Gastroesophageal reflux disease. Continue Protonix. 7. Deep venous thrombosis prophylaxis. Heparin 5000 q. 12. In summary, the patient has congestive heart failure exacerbation, ETOH dependence, alcoholic ketoacidosis, hypomagnesemia. JOB# [id number] RAZ/AMBROCIO CHRISTINE
[2019-07-02] MEDS: FUROSEMIDE 40 MG/4 ML INJ IV SCH ×2 (06:01→17:07)
[2019-07-02 07:31] LABS: Basophils % (Manual) 0 % (0.0-1.8); Total Cells Counted 100
[2019-07-02 07:32] LABS: Anisocytosis Few; Platelet Estimate Consistent w Auto
[2019-07-02] MEDS ORDERED: carvediloL 6.25 MG TAB PO SCH (08:00)
--- NOTE | 2019-07-02 09:43 | Consultation ---
<CELSA BYRD - Last Filed: 07/02/19 12:28> History of Present Illness Consult date: 07/02/19 Consult reason: congestive heart failure History of present illness: 48-year old male with a history of nonischemic cardiomyopathy and chronic systolic heart failure. He has not followed with a physician in several years and has not taken any medications. Co-morbidities includes hypertension and alcohol abuse. Patient presents to the hospital with complaints of shortness of breath, bilateral lower extremity edema extending upwards, admitted with CHF exacerbation. Cardiac consultation has been requested for management of CHF. Initial labs reveals multiple metabolic abnormalities including a WBC of 1.6, platelet of 60,000, and lactic acidosis. His presenting ECG is sinus tachycardia, no acute ischemic changes. Medications and Allergies Allergies Allergy/AdvReac Type Severity Reaction Status Date / Time No Known Allergies Allergy Verified 07/01/19 11:20 Home Medications Medication Instructions Recorded Confirmed Last Taken Type Aspirin [Aspirin BABY CHEW TAB] 81 mg PO QDAY #30 tab.chew 10/31/16 09/17/17 1 Day Ago Rx ~09/16/17 Furosemide [Lasix TAB] 40 mg PO BID #60 tablet 12/07/16 09/17/17 2 Days Ago Rx ~09/14/17 40 mg Magnesium Oxide 400 mg PO BIDAC #60 tablet 12/07/16 09/17/17 1 Day Ago Rx ~09/16/17 Nitroglycerin [Nitrostat] 0.4 mg SL .Q5MIN PRN #10 tablet 12/07/16 09/17/17 1 Month Ago Rx ~08/17/17 Potassium Chloride [K-Dur] 20 meq PO BID #60 tab 12/07/16 09/17/17 1 Day Ago Rx ~09/16/17 Thiamine [Vitamin B-1] 100 mg PO QDAY #30 tablet 12/07/16 09/17/17 2 Days Ago Rx ~09/14/17 100 mg carvediloL [Coreg] 6.25 mg PO BID #60 tablet 12/07/16 09/17/17 2 Days Ago Rx ~09/14/17 60.25 mg Lisinopril [Zestril] 20 mg PO DAILY #30 tablet 09/18/17 Unknown Rx Pantoprazole [Protonix TAB] 40 mg PO BID #60 tablet 09/18/17 Unknown Rx Active Meds: Active Medications Acetaminophen (Tylenol) 650 mg PO Q4H PRN PRN Reason: Pain MILD(1-3)/Fever >100.5/ERWIN Aspirin (Baby Aspirin) 81 mg PO QDAY [facility] Carvedilol (Coreg) 6.25 mg PO BID@0800,1700 [facility] Furosemide (Lasix) 40 mg IV 0600,1800 [facility] Last Admin: 07/02/19 06:01 Dose: 40 mg Documented by: Heparin Sodium (Porcine) (Heparin) 5,000 unit SUB-Q Q12HR [facility] Hydromorphone HCl (Dilaudid) 0.5 mg IV Q3H PRN PRN Reason: Pain , Severe (7-10) Lisinopril (Zestril) 20 mg PO DAILY [facility] Lorazepam (Ativan) 2 mg PO Q1H PRN PRN Reason: CIWA-Ar 8-15 Last Admin: 07/01/19 22:47 Dose: 2 mg Documented by: Magnesium Oxide (Mag-Ox) 400 mg PO BID@0730,1630 [facility] Metoclopramide HCl (Reglan) 10 mg IV Q6H PRN PRN Reason: Nausea And Vomiting Nitroglycerin (Nitrostat) 0.4 mg SL .Q5MIN PRN PRN Reason: Chest Pain Ondansetron HCl (Zofran) 4 mg IV Q8H PRN PRN Reason: Nausea And Vomiting Oxycodone/Acetaminophen (Percocet 5/325) 1 tab PO Q6H PRN PRN Reason: Pain, Moderate (4-6) Pantoprazole Sodium (Protonix) 40 mg PO BID [facility] Potassium Chloride (K-Dur) 20 meq PO BID [facility] Last Admin: 07/01/19 21:17 Dose: 20 meq Documented by: Sodium Chloride (Sodium Chloride Flush Syringe 10 Ml) 10 ml IV BID [facility] Last Admin: 07/01/19 21:18 Dose: 10 ml Documented by: Sodium Chloride (Sodium Chloride Flush Syringe 10 Ml) 10 ml IV PRN PRN PRN Reason: LINE FLUSH Thiamine HCl (Vitamin B-1) 100 mg PO QDAY [facility] Physical Examination Vital Signs Pulse Resp 117 H 15 07/01/19 11:06 07/01/19 11:06 General appearance: no acute distress HEENT: Positive: PERRL Neck: Positive: trachea midline Cardiac: Positive: Tachycardia Lungs: Positive: Decreased Breath Sounds Neuro: Positive: Grossly Intact Extremities: Present: edema Results 07/02/19 04:38 07/02/19 04:38 Cardiac Enzymes 07/01/19 07/02/19 Range/Units 11:57 04:38 AST 35 33 (5-40) units/L CBC 07/01/19 07/02/19 Range/Units 11:57 04:38 WBC 1.6 L* 1.9 L* (4.5-11.0) K/mm3 RBC 2.94 L 3.00 L (3.65-5.03) M/mm3 Hgb 9.7 L 9.9 L (11.8-15.2) gm/dl Hct 29.7 L 30.3 L (35.5-45.6) % Plt Count 71 L 60 L (140-440) K/mm3 Comprehensive Metabolic Panel 07/01/19 07/02/19 Range/Units 11:57 04:38 Sodium 144 142 (137-145) mmol/L Potassium 4.7 4.5 (3.6-5.0) mmol/L Chloride 104.1 103.1 (98-107) mmol/L Carbon Dioxide 15 L 17 L (22-30) mmol/L BUN 11 11 (9-20) mg/dL Creatinine 1.3 1.2 (0.8-1.5) mg/dL Glucose 60 L 97 (75-100) mg/dL Calcium 8.6 8.7 (8.4-10.2) mg/dL AST 35 33 (5-40) units/L ALT 11 10 (7-56) units/L Alkaline Phosphatase 195 H 183 H (35-129) units/L Total Protein 8.6 H 8.3 H (6.3-8.2) g/dL Albumin 4.1 3.9 (3.9-5) g/dL Assessment and Plan Acute on chronic CHF Leukopenia Thrombocytopenia Hx of nonischemic CMP EF 20/25% by echo 10/2016 Hypertension Alcohol abuse Noncompliant with medications and outpatient cardiac follow up Recommendations: Sodium/fluid restriction. Daily weight. Echocardiogram for LVEF assessment. Aggressive medical therapy for nonischemic cardiomyopathy and chronic systolic heart including a trial of IV milrinone therapy. <URIAH ALEXANDER - Last Filed: 07/03/19 11:06> Medications and Allergies Active Meds: Active Medications Acetaminophen (Tylenol) 650 mg PO Q4H PRN PRN Reason: Pain MILD(1-3)/Fever >100.5/ERWIN Aspirin (Baby Aspirin) 81 mg PO QDAY [facility] Last Admin: 07/03/19 10:25 Dose: 81 mg Documented by: Carvedilol (Coreg) 25 mg PO BID [facility] Last Admin: 07/03/19 10:35 Dose: 25 mg Documented by: Furosemide (Lasix) 40 mg IV 0600,1800 [facility] Last Admin: 07/03/19 07:24 Dose: 40 mg Documented by: Heparin Sodium (Porcine) (Heparin) 5,000 unit SUB-Q Q12HR [facility] Last Admin: 07/03/19 10:27 Dose: 5,000 unit Documented by: Hydromorphone HCl (Dilaudid) 0.5 mg IV Q3H PRN PRN Reason: Pain , Severe (7-10) Milrinone Lactate/Dextrose (Milrinone-D5w 20 Mg/100 Ml) 20 mg in 100 mls @ 8.34 mls/hr IV TITR [facility] Stop: 07/05/19 12:59 Last Admin: 07/03/19 00:18 Dose: 0.25 mcg/kg/min, 8.34 mls/hr Documented by: Lisinopril (Zestril) 40 mg PO QDAY [facility] Last Admin: 07/03/19 10:39 Dose: 40 mg Documented by: Lorazepam (Ativan) 2 mg PO Q1H PRN PRN Reason: CIWA-Ar 8-15 Last Admin: 07/03/19 10:34 Dose: 2 mg Documented by: Magnesium Oxide (Mag-Ox) 400 mg PO BID@0730,1630 [facility] Last Admin: 07/03/19 10:34 Dose: 400 mg Documented by: Metoclopramide HCl (Reglan) 10 mg IV Q6H PRN PRN Reason: Nausea And Vomiting Metoprolol Tartrate (Metoprolol) 5 mg IV Q4HR PRN PRN Reason: HR >130 Last Admin: 07/02/19 16:34 Dose: 5 mg Documented by: Nitroglycerin (Nitrostat) 0.4 mg SL .Q5MIN PRN PRN Reason: Chest Pain Ondansetron HCl (Zofran) 4 mg IV Q8H PRN PRN Reason: Nausea And Vomiting Last Admin: 07/02/19 16:43 Dose: 4 mg Documented by: Oxycodone/Acetaminophen (Percocet 5/325) 1 tab PO Q6H PRN PRN Reason: Pain, Moderate (4-6) Pantoprazole Sodium (Protonix) 40 mg PO BID [facility] Last Admin: 07/03/19 10:25 Dose: 40 mg Documented by: Sodium Chloride (Sodium Chloride Flush Syringe 10 Ml) 10 ml IV BID [facility] Last Admin: 07/03/19 10:27 Dose: 10 ml Documented by: Sodium Chloride (Sodium Chloride Flush Syringe 10 Ml) 10 ml IV PRN PRN PRN Reason: LINE FLUSH Spironolactone (Aldactone) 12.5 mg PO QDAY [facility] Last Admin: 07/03/19 10:34 Dose: 12.5 mg Documented by: Thiamine HCl (Vitamin B-1) 100 mg PO QDAY [facility] Last Admin: 07/03/19 10:25 Dose: 100 mg Documented by: Physical Examination Vital Signs Pulse Resp 117 H 15 07/01/19 11:06 07/01/19 11:06 Results 07/02/19 04:38 07/02/19 04:38 Assessment and Plan I've seen and evaluated the patient and agree with the assessment and plan. The patient presented with acute on chronic congestive heart failure, leukopenia, thrombocytopenia, history of nonischemic cardiomyopathy with ejection fraction 25%, hypertension and alcohol abuse. At this time recommend sodium and fluid restriction. Recommend daily weights. Echocardiogram for evaluation of LV function is pending. Continue goal-directed medical therapy for treatment of nonischemic cardiomyopathy along with gentle diuresis. Patient is on milrinone for inotropic support.
[2019-07-02] MEDS ORDERED: LISINOPRIL 20 MG TAB PO SCH (10:00)
[2019-07-02] MEDS: MAGNESIUM OXIDE 400 MG TAB PO SCH ×2 (10:28→16:34)
[2019-07-02] MEDS: ASPIRIN 81 MG TAB CHEW PO SCH (10:28)
[2019-07-02] MEDS: THIAMINE 100 MG TAB PO SCH (10:29)
[2019-07-02] MEDS: POTASSIUM CHLORIDE ER 20 MEQ TAB PO SCH ×2 (10:29→22:21)
[2019-07-02] MEDS: HEPARIN 5,000 UNIT/1 ML VIAL SUB-Q SCH ×2 (10:31→22:21)
[2019-07-02] MEDS: PANTOPRAZOLE 40 MG TAB PO SCH ×2 (10:36→22:21)
[2019-07-02] MEDS ORDERED: METOPROLOL TARTRATE 5 MG/5 ML INJ IV PRN (12:14)
[2019-07-02] MEDS ORDERED: carvediloL 6.25 MG TAB PO ONE (12:30)
[2019-07-02] MEDS ORDERED: METOPROLOL TARTRATE 5 MG/5 ML INJ IV ONE (12:30)
--- NOTE | 2019-07-02 12:39 | Progress Note ---
Assessment and Plan Assessment and plan: Acute resp failure due to CHF exacerbation supplemental Oxygen Acute on chronic CHF exacerbation, EF 20-25% cardiology following Coreg, lasix To start Milrinone drip Obesity I counseled him on diet and exercise to lose weight Alcohol abuse thrombocytopenia chronic probably from alcohol abuse leukopenia full code Hospitalist Physical - Physical exam Narrative exam: GEN: Not in acute distress, lying in bed, obese HEENT: Normocephalic, atraumatic, Neck: supple, No JVD Lungs: Clear to auscultation, no wheeze, heart;S1 and S2 reg, no murmurs Abd:soft, non tender, non distended, normal bowel sounds Ext: Bilateral leg edema, no clubbing, no cyanosis Neuro: AAO x 3 - Constitutional Vitals: Temp Pulse Resp BP Pulse Ox 98.0 F 136 H 18 172/92 98 07/02/19 04:41 07/02/19 12:33 07/02/19 04:41 07/02/19 12:33 07/02/19 04:41 General appearance: Present: no acute distress Results - Labs CBC & Chem 7: 07/02/19 04:38 07/02/19 04:38 Labs: Laboratory Last Values WBC 1.9 K/mm3 (4.5-11.0) L* 07/02/19 04:38 RBC 3.00 M/mm3 (3.65-5.03) L 07/02/19 04:38 Hgb 9.9 gm/dl (11.8-15.2) L 07/02/19 04:38 Hct 30.3 % (35.5-45.6) L 07/02/19 04:38 MCV 101 fl (84-94) H 07/02/19 04:38 MCH 33 pg (28-32) H 07/02/19 04:38 MCHC 33 % (32-34) 07/02/19 04:38 RDW 19.8 % (13.2-15.2) H 07/02/19 04:38 Plt Count 60 K/mm3 (140-440) L 07/02/19 04:38 [place] % (Auto) Manufacturing Director 07/02/19 04:38 Baso % (Auto) Manufacturing Director 07/02/19 04:38 Add Manual Diff Complete 07/02/19 04:38 Total Counted 100 07/02/19 04:38 Seg Neutrophils % Manufacturing Director 07/01/19 11:57 Seg Neuts % (Manual) 54.0 % (40.0-70.0) 07/02/19 04:38 Band Neutrophils % 0 % 07/02/19 04:38 Lymphocytes % (Manual) 37.0 % (13.4-35.0) H 07/02/19 04:38 Reactive Lymphs % (Man) 0 % 07/02/19 04:38 Monocytes % (Manual) 6.0 % (0.0-7.3) 07/02/19 04:38 Eosinophils % (Manual) 3.0 % (0.0-4.3) 07/02/19 04:38 Basophils % (Manual) 0 % (0.0-1.8) 07/02/19 04:38 Metamyelocytes % 0 % 07/02/19 04:38 Myelocytes % 0 % 07/02/19 04:38 Promyelocytes % 0 % 07/02/19 04:38 Blast Cells % 0 % 07/02/19 04:38 Nucleated RBC % Not Reportable 07/02/19 04:38 Seg Neutrophils # Man 1.0 K/mm3 (1.8-7.7) L 07/02/19 04:38 Band Neutrophils # 0.0 K/mm3 07/02/19 04:38 Lymphocytes # (Manual) 0.7 K/mm3 (1.2-5.4) L 07/02/19 04:38 Abs React Lymphs (Man) 0.0 K/mm3 07/02/19 04:38 Monocytes # (Manual) 0.1 K/mm3 (0.0-0.8) 07/02/19 04:38 Eosinophils # (Manual) 0.1 K/mm3 (0.0-0.4) 07/02/19 04:38 Basophils # (Manual) 0.0 K/mm3 (0.0-0.1) 07/02/19 04:38 Metamyelocytes # 0.0 K/mm3 07/02/19 04:38 Myelocytes # 0.0 K/mm3 07/02/19 04:38 Promyelocytes # 0.0 K/mm3 07/02/19 04:38 Blast Cells # 0.0 K/mm3 07/02/19 04:38 WBC Morphology Not Reportable 07/02/19 04:38 Hypersegmented Neuts Not Reportable 07/02/19 04:38 Hyposegmented Neuts Not Reportable 07/02/19 04:38 Hypogranular Neuts Not Reportable 07/02/19 04:38 Smudge Cells Not Reportable 07/02/19 04:38 Toxic Granulation Not Reportable 07/02/19 04:38 Toxic Vacuolation Not Reportable 07/02/19 04:38 Dohle Bodies Not Reportable 07/02/19 04:38 Pelger-Huet Anomaly Not Reportable 07/02/19 04:38 Mack Rods Not Reportable 07/02/19 04:38 Platelet Estimate Consistent w auto 07/02/19 04:38 Clumped Platelets Not Reportable 07/02/19 04:38 Plt Clumps, EDTA Not Reportable 07/02/19 04:38 Large Platelets Not Reportable 07/02/19 04:38 Giant Platelets Not Reportable 07/02/19 04:38 Platelet Satelliting Not Reportable 07/02/19 04:38 Plt Morphology Comment Not Reportable 07/02/19 04:38 RBC Morphology Not Reportable 07/02/19 04:38 Dimorphic RBCs Not Reportable 07/02/19 04:38 Polychromasia Not Reportable 07/02/19 04:38 Hypochromasia Not Reportable 07/02/19 04:38 Poikilocytosis Not Reportable 07/02/19 04:38 Anisocytosis Few 07/02/19 04:38 Microcytosis Not Reportable 07/02/19 04:38 Macrocytosis Not Reportable 07/02/19 04:38 Spherocytes Not Reportable 07/02/19 04:38 Pappenheimer Bodies Not Reportable 07/02/19 04:38 Sickle Cells Not Reportable 07/02/19 04:38 Target Cells Not Reportable 07/02/19 04:38 Tear Drop Cells Not Reportable 07/02/19 04:38 Ovalocytes Not Reportable 07/02/19 04:38 Helmet Cells Not Reportable 07/02/19 04:38 [place] Bodies Not Reportable 07/02/19 04:38 Clarkson Rings Not Reportable 07/02/19 04:38 Yolis Cells Not Reportable 07/02/19 04:38 Bite Cells Not Reportable 07/02/19 04:38 Crenated Cell Not Reportable 07/02/19 04:38 Elliptocytes Not Reportable 07/02/19 04:38 Acanthocytes (Spur) Not Reportable 07/02/19 04:38 Rouleaux Not Reportable 07/02/19 04:38 Hemoglobin C Crystals Not Reportable 07/02/19 04:38 Schistocytes Not Reportable 07/02/19 04:38 Malaria parasites Not Reportable 07/02/19 04:38 Víctor Bodies Not Reportable 07/02/19 04:38 Hem Pathologist Commnt No 07/02/19 04:38 Sodium 142 mmol/L (137-145) 07/02/19 04:38 Potassium 4.5 mmol/L (3.6-5.0) 07/02/19 04:38 Chloride 103.1 mmol/L (98-107) 07/02/19 04:38 Carbon Dioxide 17 mmol/L (22-30) L 07/02/19 04:38 Anion Gap 26 mmol/L 07/02/19 04:38 BUN 11 mg/dL (9-20) 07/02/19 04:38 Creatinine 1.2 mg/dL (0.8-1.5) 07/02/19 04:38 Estimated GFR > 60 ml/min 07/02/19 04:38 BUN/Creatinine Ratio 9 % 07/02/19 04:38 Glucose 97 mg/dL (75-100) 07/02/19 04:38 Hemoglobin A1c 4.7 % (4-6) 07/01/19 11:57 Lactic Acid 1.80 mmol/L (0.7-2.0) 07/02/19 04:38 Calcium 8.7 mg/dL (8.4-10.2) 07/02/19 04:38 Total Bilirubin 1.80 mg/dL (0.1-1.2) H 07/02/19 04:38 AST 33 units/L (5-40) 07/02/19 04:38 ALT 10 units/L (7-56) 07/02/19 04:38 Alkaline Phosphatase 183 units/L (35-129) H 07/02/19 04:38 NT-Pro-B Natriuret Pep 2606 pg/mL (0-450) H 07/01/19 11:57 Total Protein 8.3 g/dL (6.3-8.2) H 07/02/19 04:38 Albumin 3.9 g/dL (3.9-5) 07/02/19 04:38 Albumin/Globulin Ratio 0.9 % 07/02/19 04:38 Lipase 99 units/L (13-60) H 07/01/19 11:57 Urine Color Yellow (Yellow) 07/01/19 13:07 Urine Turbidity Clear (Clear) 07/01/19 13:07 Urine pH 5.0 (5.0-7.0) 07/01/19 13:07 Ur Specific [place] 1.016 (1.003-1.030) 07/01/19 13:07 Urine Protein 100 mg/dl mg/dL (Negative) 07/01/19 13:07 Urine Glucose (UA) Neg mg/dL (Negative) 07/01/19 13:07 Urine Ketones 20 mg/dL (Negative) 07/01/19 13:07 Urine Blood Sm (Negative) 07/01/19 13:07 Urine Nitrite Neg (Negative) 07/01/19 13:07 Urine Bilirubin Neg (Negative) 07/01/19 13:07 Urine Urobilinogen 4.0 mg/dL (<2.0) 07/01/19 13:07 Ur Leukocyte Esterase Neg (Negative) 07/01/19 13:07 Urine WBC (Auto) < 1.0 /HPF (0.0-6.0) 07/01/19 13:07 Urine RBC (Auto) 2.0 /HPF (0.0-6.0) 07/01/19 13:07 U Epithel Cells (Auto) < 1.0 /HPF (0-13.0) 07/01/19 13:07 Urine Bacteria (Auto) 1+ /HPF (Negative) 07/01/19 13:07 Hyaline Casts 6 /LPF 07/01/19 13:07 Urine Mucus Few /HPF 07/01/19 13:07 Plasma/Serum Alcohol 0.24 % (0-0.07) H 07/01/19 11:57 Active Medications - Current Medications Current Medications: Generic Name Dose Route Start Last Admin Trade Name Freq PRN Reason Stop Dose Admin Acetaminophen 650 mg 07/01/19 20:15 Tylenol PO Q4H PRN Pain MILD(1-3)/Fever >100.5/ERWIN Aspirin 81 mg 07/02/19 10:00 07/02/19 10:28 Baby Aspirin PO 81 mg QDAY [facility] Administration Carvedilol 12.5 mg 07/02/19 22:00 Coreg PO BID [facility] Furosemide 40 mg 07/02/19 06:00 07/02/19 06:01 Lasix IV 40 mg 0600,1800 [facility] Administration Heparin Sodium (Porcine) 5,000 unit 07/02/19 10:00 07/02/19 10:31 Heparin SUB-Q 5,000 unit Q12HR [facility] Administration Hydromorphone HCl 0.5 mg 07/01/19 20:15 Dilaudid IV Q3H PRN Pain , Severe (7-10) Milrinone Lactate/Dextrose 20 mg in 100 mls @ 8.34 mls/hr 07/02/19 13:00 Milrinone-D5w 20 Mg/100 Ml IV 07/05/19 12:59 TITR [facility] 0.25 MCG/KG/MIN Lisinopril 20 mg 07/02/19 10:00 07/02/19 10:32 Zestril PO 20 mg DAILY [facility] Administration Lorazepam 2 mg 07/01/19 16:42 07/01/19 22:47 Ativan PO 2 mg Q1H PRN Administration CIWA-Ar 8-15 Magnesium Oxide 400 mg 07/02/19 07:30 07/02/19 10:28 Mag-Ox PO 400 mg BID@0730,1630 [facility] Administration Metoclopramide HCl 10 mg 07/01/19 20:15 Reglan IV Q6H PRN Nausea And Vomiting Metoprolol Tartrate 5 mg 07/02/19 12:14 Metoprolol IV Q4HR PRN HR >130 Nitroglycerin 0.4 mg 07/02/19 05:08 Nitrostat SL .Q5MIN PRN Chest Pain Ondansetron HCl 4 mg 07/01/19 20:15 Zofran IV Q8H PRN Nausea And Vomiting Oxycodone/Acetaminophen 1 tab 07/01/19 20:15 Percocet 5/325 PO Q6H PRN Pain, Moderate (4-6) Pantoprazole Sodium 40 mg 07/02/19 10:00 07/02/19 10:36 Protonix PO 40 mg BID [facility] Administration Potassium Chloride 20 meq 07/01/19 22:00 07/02/19 10:29 K-Dur PO 20 meq BID [facility] Administration Sodium Chloride 10 ml 07/01/19 22:00 07/02/19 10:32 Sodium Chloride Flush Syringe 10 Ml IV 10 ml BID [facility] Administration Sodium Chloride 10 ml 07/01/19 20:15 Sodium Chloride Flush Syringe 10 Ml IV PRN PRN LINE FLUSH Thiamine HCl 100 mg 07/02/19 10:00 07/02/19 10:29 Vitamin B-1 PO 100 mg QDAY [facility] Administration
[2019-07-02] MEDS ORDERED: carvediloL 12.5 MG TAB PO SCH (22:00)
[2019-07-02] MEDS: LORazepam 2 MG TAB PO PRN (22:21)
[2019-07-02] MEDS ORDERED: LORazepam 2 MG/ML VIAL IV ONE (23:50)
[2019-07-03] MEDS: MILRINONE-D5W 20 MG/100 ML 20 MG/100 ML BAG IV SCH ×2 (00:18→16:10)
[2019-07-03] MEDS: FUROSEMIDE 40 MG/4 ML INJ IV SCH ×2 (07:24→17:19)
--- NOTE | 2019-07-03 09:13 | Progress Note ---
<CELSA BYRD - Last Filed: 07/03/19 10:30> Assessment and Plan Acute on chronic CHF Leukopenia Thrombocytopenia Hx of nonischemic CMP EF 20/25% by echo 10/2016 Hypertension Alcohol abuse Noncompliant with medications and outpatient cardiac follow up Recommendations: Sodium/fluid restriction. Daily weight. Continue aggressive medical therapy for nonischemic cardiomyopathy and chronic systolic heart including a trial of IV milrinone therapy. Subjective Date of service: 07/03/19 Interval history: Patient admits he is diuresing well. IV milrinone continues. Sinus tachycardia on telemetry. Objective Vital Signs Temp Pulse Resp Resp Resp BP Pulse Ox 07/03/19 08:00 20 20 07/03/19 04:00 111 H 07/03/19 03:44 97.9 F 111 H 20 146/91 99 07/02/19 23:41 98.5 F 114 H 20 139/101 95 07/02/19 22:20 101 H 144/83 07/02/19 20:00 114 H 20 94 07/02/19 19:33 98.3 F 113 H 18 144/83 93 07/02/19 16:34 135 H 172/117 07/02/19 16:22 98.2 F 135 H 18 172/117 98 07/02/19 12:33 136 H 172/92 07/02/19 10:32 148 H 171/120 07/02/19 10:31 148 H 171/120 - Physical Examination General: No Apparent Distress HEENT: Positive: PERRL Neck: Positive: trachea midline Cardiac: Positive: Tachycardia Lungs: Positive: Decreased Breath Sounds Neuro: Positive: Grossly Intact Extremities: Present: edema <URIAH ALEXANDER - Last Filed: 07/03/19 10:43> Assessment and Plan I've seen and evaluated the patient and agree with the assessment and plan. The patient presented with acute on chronic congestive heart failure, thrombocytopenia, nonischemic cardiomyopathy with ejection fraction 20-25%, hypertension, and alcohol abuse. Recommend sodium and fluid restriction. Recommend daily weights. Recommend goal-directed medical therapy for treatment of nonischemic cardiomyopathy. We'll start the patient on IV milrinone for inotropic support. Objective Vital Signs Temp Pulse Resp Resp Resp BP Pulse Ox 07/03/19 10:39 100 H 146/90 07/03/19 10:35 100 H 146/90 07/03/19 10:34 100 H 146/90 07/03/19 08:00 20 20 07/03/19 04:00 111 H 07/03/19 03:44 97.9 F 111 H 20 146/91 99 07/02/19 23:41 98.5 F 114 H 20 139/101 95 07/02/19 22:20 101 H 144/83 07/02/19 20:00 114 H 20 94 07/02/19 19:33 98.3 F 113 H 18 144/83 93 07/02/19 16:34 135 H 172/117 07/02/19 16:22 98.2 F 135 H 18 172/117 98 07/02/19 12:33 136 H 172/92
[2019-07-03] MEDS: ASPIRIN 81 MG TAB CHEW PO SCH (10:25)
[2019-07-03] MEDS: PANTOPRAZOLE 40 MG TAB PO SCH ×2 (10:25→21:30)
[2019-07-03] MEDS: POTASSIUM CHLORIDE ER 20 MEQ TAB PO SCH (10:25)
[2019-07-03] MEDS: THIAMINE 100 MG TAB PO SCH (10:25)
[2019-07-03] MEDS: HEPARIN 5,000 UNIT/1 ML VIAL SUB-Q SCH ×2 (10:27→21:30)
[2019-07-03] MEDS: MAGNESIUM OXIDE 400 MG TAB PO SCH ×2 (10:34→16:10)
[2019-07-03] MEDS: LORazepam 2 MG TAB PO PRN (10:34)
[2019-07-03] MEDS: SPIRONOLACTONE 25 MG TAB PO SCH (10:34)
[2019-07-03] MEDS: carvediloL 25 MG TAB PO SCH (10:35)
[2019-07-03] MEDS: LISINOPRIL 40 MG TAB PO SCH (10:39)
--- NOTE | 2019-07-03 14:58 | Progress Note ---
Assessment and Plan Assessment and plan: Acute resp failure due to CHF exacerbation supplemental Oxygen Acute on chronic CHF exacerbation, EF 20-25% cardiology following Coreg, lasix Continue Milrinone drip Obesity I counseled him on diet and exercise to lose weight Alcohol abuse thrombocytopenia chronic probably from alcohol abuse leukopenia full code History Interval history: less shortness of breath leg edema Hospitalist Physical - Physical exam Narrative exam: GEN: Not in acute distress, lying in bed, obese HEENT: Normocephalic, atraumatic, Neck: supple, No JVD Lungs: Clear to auscultation, no wheeze, heart;S1 and S2 reg, no murmurs Abd:soft, non tender, non distended, normal bowel sounds Ext: Bilateral leg edema, no clubbing, no cyanosis Neuro: AAO x 3 - Constitutional Vitals: Temp Pulse Resp BP Pulse Ox 97.6 F 100 H 18 105/65 95 07/03/19 11:53 07/03/19 11:53 07/03/19 11:53 07/03/19 11:53 07/03/19 11:53 General appearance: Present: no acute distress Results - Labs CBC & Chem 7: 07/02/19 04:38 07/02/19 04:38 Labs: Laboratory Last Values WBC 1.9 K/mm3 (4.5-11.0) L* 07/02/19 04:38 RBC 3.00 M/mm3 (3.65-5.03) L 07/02/19 04:38 Hgb 9.9 gm/dl (11.8-15.2) L 07/02/19 04:38 Hct 30.3 % (35.5-45.6) L 07/02/19 04:38 MCV 101 fl (84-94) H 07/02/19 04:38 MCH 33 pg (28-32) H 07/02/19 04:38 MCHC 33 % (32-34) 07/02/19 04:38 RDW 19.8 % (13.2-15.2) H 07/02/19 04:38 Plt Count 60 K/mm3 (140-440) L 07/02/19 04:38 [place] % (Auto) Orthopedic Technician 07/02/19 04:38 Baso % (Auto) Orthopedic Technician 07/02/19 04:38 Add Manual Diff Complete 07/02/19 04:38 Total Counted 100 07/02/19 04:38 Seg Neutrophils % Orthopedic Technician 07/01/19 11:57 Seg Neuts % (Manual) 54.0 % (40.0-70.0) 07/02/19 04:38 Band Neutrophils % 0 % 07/02/19 04:38 Lymphocytes % (Manual) 37.0 % (13.4-35.0) H 07/02/19 04:38 Reactive Lymphs % (Man) 0 % 07/02/19 04:38 Monocytes % (Manual) 6.0 % (0.0-7.3) 07/02/19 04:38 Eosinophils % (Manual) 3.0 % (0.0-4.3) 07/02/19 04:38 Basophils % (Manual) 0 % (0.0-1.8) 07/02/19 04:38 Metamyelocytes % 0 % 07/02/19 04:38 Myelocytes % 0 % 07/02/19 04:38 Promyelocytes % 0 % 07/02/19 04:38 Blast Cells % 0 % 07/02/19 04:38 Nucleated RBC % Not Reportable 07/02/19 04:38 Seg Neutrophils # Man 1.0 K/mm3 (1.8-7.7) L 07/02/19 04:38 Band Neutrophils # 0.0 K/mm3 07/02/19 04:38 Lymphocytes # (Manual) 0.7 K/mm3 (1.2-5.4) L 07/02/19 04:38 Abs React Lymphs (Man) 0.0 K/mm3 07/02/19 04:38 Monocytes # (Manual) 0.1 K/mm3 (0.0-0.8) 07/02/19 04:38 Eosinophils # (Manual) 0.1 K/mm3 (0.0-0.4) 07/02/19 04:38 Basophils # (Manual) 0.0 K/mm3 (0.0-0.1) 07/02/19 04:38 Metamyelocytes # 0.0 K/mm3 07/02/19 04:38 Myelocytes # 0.0 K/mm3 07/02/19 04:38 Promyelocytes # 0.0 K/mm3 07/02/19 04:38 Blast Cells # 0.0 K/mm3 07/02/19 04:38 WBC Morphology Not Reportable 07/02/19 04:38 Hypersegmented Neuts Not Reportable 07/02/19 04:38 Hyposegmented Neuts Not Reportable 07/02/19 04:38 Hypogranular Neuts Not Reportable 07/02/19 04:38 Smudge Cells Not Reportable 07/02/19 04:38 Toxic Granulation Not Reportable 07/02/19 04:38 Toxic Vacuolation Not Reportable 07/02/19 04:38 Dohle Bodies Not Reportable 07/02/19 04:38 Pelger-Huet Anomaly Not Reportable 07/02/19 04:38 Mack Rods Not Reportable 07/02/19 04:38 Platelet Estimate Consistent w auto 07/02/19 04:38 Clumped Platelets Not Reportable 07/02/19 04:38 Plt Clumps, EDTA Not Reportable 07/02/19 04:38 Large Platelets Not Reportable 07/02/19 04:38 Giant Platelets Not Reportable 07/02/19 04:38 Platelet Satelliting Not Reportable 07/02/19 04:38 Plt Morphology Comment Not Reportable 07/02/19 04:38 RBC Morphology Not Reportable 07/02/19 04:38 Dimorphic RBCs Not Reportable 07/02/19 04:38 Polychromasia Not Reportable 07/02/19 04:38 Hypochromasia Not Reportable 07/02/19 04:38 Poikilocytosis Not Reportable 07/02/19 04:38 Anisocytosis Few 07/02/19 04:38 Microcytosis Not Reportable 07/02/19 04:38 Macrocytosis Not Reportable 07/02/19 04:38 Spherocytes Not Reportable 07/02/19 04:38 Pappenheimer Bodies Not Reportable 07/02/19 04:38 Sickle Cells Not Reportable 07/02/19 04:38 Target Cells Not Reportable 07/02/19 04:38 Tear Drop Cells Not Reportable 07/02/19 04:38 Ovalocytes Not Reportable 07/02/19 04:38 Helmet Cells Not Reportable 07/02/19 04:38 [place] Bodies Not Reportable 07/02/19 04:38 [place] Rings Not Reportable 07/02/19 04:38 [place] Cells Not Reportable 07/02/19 04:38 Bite Cells Not Reportable 07/02/19 04:38 Crenated Cell Not Reportable 07/02/19 04:38 Elliptocytes Not Reportable 07/02/19 04:38 Acanthocytes (Spur) Not Reportable 07/02/19 04:38 Rouleaux Not Reportable 07/02/19 04:38 Hemoglobin C Crystals Not Reportable 07/02/19 04:38 Schistocytes Not Reportable 07/02/19 04:38 Malaria parasites Not Reportable 07/02/19 04:38 Víctor Bodies Not Reportable 07/02/19 04:38 Hem Pathologist Commnt No 07/02/19 04:38 Sodium 142 mmol/L (137-145) 07/02/19 04:38 Potassium 4.5 mmol/L (3.6-5.0) 07/02/19 04:38 Chloride 103.1 mmol/L (98-107) 07/02/19 04:38 Carbon Dioxide 17 mmol/L (22-30) L 07/02/19 04:38 Anion Gap 26 mmol/L 07/02/19 04:38 BUN 11 mg/dL (9-20) 07/02/19 04:38 Creatinine 1.2 mg/dL (0.8-1.5) 07/02/19 04:38 Estimated GFR > 60 ml/min 07/02/19 04:38 BUN/Creatinine Ratio 9 % 07/02/19 04:38 Glucose 97 mg/dL (75-100) 07/02/19 04:38 Hemoglobin A1c 4.7 % (4-6) 07/01/19 11:57 Lactic Acid 1.80 mmol/L (0.7-2.0) 07/02/19 04:38 Calcium 8.7 mg/dL (8.4-10.2) 07/02/19 04:38 Total Bilirubin 1.80 mg/dL (0.1-1.2) H 07/02/19 04:38 AST 33 units/L (5-40) 07/02/19 04:38 ALT 10 units/L (7-56) 07/02/19 04:38 Alkaline Phosphatase 183 units/L (35-129) H 07/02/19 04:38 NT-Pro-B Natriuret Pep 2606 pg/mL (0-450) H 07/01/19 11:57 Total Protein 8.3 g/dL (6.3-8.2) H 07/02/19 04:38 Albumin 3.9 g/dL (3.9-5) 07/02/19 04:38 Albumin/Globulin Ratio 0.9 % 07/02/19 04:38 Lipase 99 units/L (13-60) H 07/01/19 11:57 Urine Color Yellow (Yellow) 07/01/19 13:07 Urine Turbidity Clear (Clear) 07/01/19 13:07 Urine pH 5.0 (5.0-7.0) 07/01/19 13:07 Ur Specific [place] 1.016 (1.003-1.030) 07/01/19 13:07 Urine Protein 100 mg/dl mg/dL (Negative) 07/01/19 13:07 Urine Glucose (UA) Neg mg/dL (Negative) 07/01/19 13:07 Urine Ketones 20 mg/dL (Negative) 07/01/19 13:07 Urine Blood Sm (Negative) 07/01/19 13:07 Urine Nitrite Neg (Negative) 07/01/19 13:07 Urine Bilirubin Neg (Negative) 07/01/19 13:07 Urine Urobilinogen 4.0 mg/dL (<2.0) 07/01/19 13:07 Ur Leukocyte Esterase Neg (Negative) 07/01/19 13:07 Urine WBC (Auto) < 1.0 /HPF (0.0-6.0) 07/01/19 13:07 Urine RBC (Auto) 2.0 /HPF (0.0-6.0) 07/01/19 13:07 U Epithel Cells (Auto) < 1.0 /HPF (0-13.0) 07/01/19 13:07 Urine Bacteria (Auto) 1+ /HPF (Negative) 07/01/19 13:07 Hyaline Casts 6 /LPF 07/01/19 13:07 Urine Mucus Few /HPF 07/01/19 13:07 Plasma/Serum Alcohol 0.24 % (0-0.07) H 07/01/19 11:57 Active Medications - Current Medications Current Medications: Generic Name Dose Route Start Last Admin Trade Name Freq PRN Reason Stop Dose Admin Acetaminophen 650 mg 07/01/19 20:15 Tylenol PO Q4H PRN Pain MILD(1-3)/Fever >100.5/ERWIN Aspirin 81 mg 07/02/19 10:00 07/03/19 10:25 Baby Aspirin PO 81 mg QDAY [facility] Administration Carvedilol 25 mg 07/03/19 10:00 07/03/19 10:35 Coreg PO 25 mg BID TERRELL Administration Furosemide 40 mg 07/02/19 06:00 07/03/19 07:24 Lasix IV 40 mg 0600,1800 TERRELL Administration Heparin Sodium (Porcine) 5,000 unit 07/02/19 10:00 07/03/19 10:27 Heparin SUB-Q 5,000 unit Q12HR [facility] Administration Hydromorphone HCl 0.5 mg 07/01/19 20:15 Dilaudid IV Q3H PRN Pain , Severe (7-10) Milrinone Lactate/Dextrose 20 mg in 100 mls @ 8.34 mls/hr 07/02/19 13:00 07/03/19 00:18 Milrinone-D5w 20 Mg/100 Ml IV 07/05/19 12:59 0.25 mcg/kg/min TITR TERRELL 8.34 mls/hr Administration 0.25 MCG/KG/MIN Lisinopril 40 mg 07/03/19 10:00 07/03/19 10:39 Zestril PO 40 mg QDAY [facility] Administration Lorazepam 2 mg 07/01/19 16:42 07/03/19 10:34 Ativan PO 2 mg Q1H PRN Administration CIWA-Ar 8-15 Magnesium Oxide 400 mg 07/02/19 07:30 07/03/19 10:34 Mag-Ox PO 400 mg BID@0730,1630 [facility] Administration Metoclopramide HCl 10 mg 07/01/19 20:15 Reglan IV Q6H PRN Nausea And Vomiting Metoprolol Tartrate 5 mg 07/02/19 12:14 07/02/19 16:34 Metoprolol IV 5 mg Q4HR PRN Administration HR >130 Nitroglycerin 0.4 mg 07/02/19 05:08 Nitrostat SL .Q5MIN PRN Chest Pain Ondansetron HCl 4 mg 07/01/19 20:15 07/02/19 16:43 Zofran IV 4 mg Q8H PRN Administration Nausea And Vomiting Oxycodone/Acetaminophen 1 tab 07/01/19 20:15 Percocet 5/325 PO Q6H PRN Pain, Moderate (4-6) Pantoprazole Sodium 40 mg 07/02/19 10:00 07/03/19 10:25 Protonix PO 40 mg BID TERRELL Administration Sodium Chloride 10 ml 07/01/19 22:00 07/03/19 10:27 Sodium Chloride Flush Syringe 10 Ml IV 10 ml BID TERRELL Administration Sodium Chloride 10 ml 07/01/19 20:15 Sodium Chloride Flush Syringe 10 Ml IV PRN PRN LINE FLUSH Spironolactone 12.5 mg 07/03/19 10:00 07/03/19 10:34 Aldactone PO 12.5 mg QDAY TERRELL Administration Thiamine HCl 100 mg 07/02/19 10:00 07/03/19 10:25 Vitamin B-1 PO 100 mg QDAY TERRELL Administration
[2019-07-04] MEDS: carvediloL 25 MG TAB PO SCH ×4 (00:25→21:55)
[2019-07-04] MEDS: FUROSEMIDE 40 MG/4 ML INJ IV SCH (06:30)
[2019-07-04] MEDS: MILRINONE-D5W 20 MG/100 ML 20 MG/100 ML BAG IV SCH (07:24)
[2019-07-04 08:25] LABS: Mean Corpuscular HGB Conc 33 % (32-34); Mean Corpuscular Volume 101 fl (84-94); Red Blood Count 2.38 M/mm3 (3.65-5.03)
[2019-07-04 08:26] LABS: Platelet Count 63 K/mm3 (140-440); Red Cell Distribution Width 20.2 % (13.2-15.2)
[2019-07-04 08:50] LABS: BUN/Creatinine Ratio TNR; Blood Urea Nitrogen TNR mg/dL (9-20); Calcium TNR mg/dL (8.4-10.2); Hemolysis Index TNR
[2019-07-04] MEDS: THIAMINE 100 MG TAB PO SCH (09:50)
[2019-07-04] MEDS: MAGNESIUM OXIDE 400 MG TAB PO SCH (09:50)
[2019-07-04] MEDS: ASPIRIN 81 MG TAB CHEW PO SCH (09:51)
[2019-07-04] MEDS: HEPARIN 5,000 UNIT/1 ML VIAL SUB-Q SCH ×2 (09:51→21:56)
[2019-07-04] MEDS: PANTOPRAZOLE 40 MG TAB PO SCH ×2 (09:51→21:55)
[2019-07-04] MEDS: SPIRONOLACTONE 25 MG TAB PO SCH ×2 (09:55→10:16)
[2019-07-04] MEDS: LISINOPRIL 40 MG TAB PO SCH (09:55)
--- NOTE | 2019-07-04 11:51 | Progress Note ---
Assessment and Plan Acute on chronic CHF Leukopenia Thrombocytopenia Anemia Hx of nonischemic CMP EF 20/25% by echo 10/2016 Hypertension Alcohol abuse Noncompliant with medications and outpatient cardiac follow up Recommendations: Sodium/fluid restriction. Daily weight.. We will discontinue intravenous milrinone therapy. Continue aggressive medical therapy for nonischemic cardiomyopathy and chronic systolic heart . Subjective Date of service: 07/04/19 Interval history: Patient reports he is diuresing well. He denies shortness of breath. Noted borderline low BP this morning, 102/56. Objective Vital Signs Temp Pulse Pulse Resp Resp Resp Resp 07/04/19 10:00 100 H 102 H 18 07/04/19 09:55 102 H 07/04/19 09:00 20 20 20 07/04/19 08:19 36 L 07/04/19 06:46 07/04/19 03:49 98.6 F 95 H 24 07/04/19 00:25 120 H 07/03/19 23:50 98.6 F 120 H 24 07/03/19 22:37 18 07/03/19 22:30 118 H 20 07/03/19 21:53 18 07/03/19 21:37 18 07/03/19 21:32 07/03/19 20:49 98.0 F 122 H 24 07/03/19 19:57 104 H 07/03/19 16:00 102 H 07/03/19 15:13 97.9 F 108 H 18 07/03/19 11:53 97.6 F 100 H 18 BP Pulse Ox 07/04/19 10:00 99 07/04/19 09:55 102/56 07/04/19 09:00 07/04/19 08:19 102/56 98 07/04/19 06:46 96/46 07/04/19 03:49 75/36 100 07/04/19 00:25 112/88 07/03/19 23:50 112/88 93 07/03/19 22:37 07/03/19 22:30 98 07/03/19 21:53 07/03/19 21:37 07/03/19 21:32 122/64 07/03/19 20:49 74/41 98 07/03/19 19:57 07/03/19 16:00 07/03/19 15:13 107/62 98 07/03/19 11:53 105/65 95 - Physical Examination General: No Apparent Distress HEENT: Positive: PERRL Neck: Positive: trachea midline Cardiac: Positive: Tachycardia Lungs: Positive: Decreased Breath Sounds Neuro: Positive: Grossly Intact Extremities: Present: edema - Labs and Meds CBC 07/04/19 Range/Units 07:47 WBC 2.9 L (4.5-11.0) K/mm3 RBC 2.38 L (3.65-5.03) M/mm3 Hgb 8.0 L (11.8-15.2) gm/dl Hct 24.0 L D (35.5-45.6) % Plt Count 63 L (140-440) K/mm3 Comprehensive Metabolic Panel 07/04/19 Range/Units 07:47 Sodium TNR Potassium TNR Chloride TNR Carbon Dioxide TNR BUN TNR Creatinine TNR Glucose TNR Calcium TNR
[2019-07-04] MEDS: oxyCODONE /ACETAMINOPHEN 5-325MG TAB PO PRN (13:15)
--- NOTE | 2019-07-04 18:30 | Progress Note ---
Assessment and Plan Assessment and plan: Acute resp failure due to CHF exacerbation supplemental Oxygen Acute on chronic CHF exacerbation, EF 20-25% cardiology following Coreg, lasix Continue Milrinone drip to end tomorrow 07/05/17 Obesity I counseled him on diet and exercise to lose weight Alcohol abuse thrombocytopenia chronic probably from alcohol abuse leukopenia full code poss dc home tomorrow History Interval history: less shortness of breath leg edema Hospitalist Physical - Physical exam Narrative exam: GEN: Not in acute distress, lying in bed, obese HEENT: Normocephalic, atraumatic, Neck: supple, No JVD Lungs: Clear to auscultation, no wheeze, heart;S1 and S2 reg, no murmurs Abd:soft, non tender, non distended, normal bowel sounds Ext: Bilateral leg edema, no clubbing, no cyanosis Neuro: AAO x 3, no focal neurological signs - Constitutional Vitals: Temp Pulse Resp BP Pulse Ox 98.1 F 95 H 18 83/47 99 07/04/19 17:05 07/04/19 17:05 07/04/19 17:05 07/04/19 17:05 07/04/19 17:05 General appearance: Present: no acute distress Results - Labs CBC & Chem 7: 07/04/19 07:47 07/04/19 07:47 Labs: Laboratory Last Values WBC 2.9 K/mm3 (4.5-11.0) L 07/04/19 07:47 RBC 2.38 M/mm3 (3.65-5.03) L 07/04/19 07:47 Hgb 8.0 gm/dl (11.8-15.2) L 07/04/19 07:47 Hct 24.0 % (35.5-45.6) L D 07/04/19 07:47 MCV 101 fl (84-94) H 07/04/19 07:47 MCH 34 pg (28-32) H 07/04/19 07:47 MCHC 33 % (32-34) 07/04/19 07:47 RDW 20.2 % (13.2-15.2) H 07/04/19 07:47 Plt Count 63 K/mm3 (140-440) L 07/04/19 07:47 [place] % (Auto) Electrical Appliance Servicer 07/02/19 04:38 Baso % (Auto) Electrical Appliance Servicer 07/02/19 04:38 Add Manual Diff Complete 07/02/19 04:38 Total Counted 100 07/02/19 04:38 Seg Neutrophils % Electrical Appliance Servicer 07/01/19 11:57 Seg Neuts % (Manual) 54.0 % (40.0-70.0) 07/02/19 04:38 Band Neutrophils % 0 % 07/02/19 04:38 Lymphocytes % (Manual) 37.0 % (13.4-35.0) H 07/02/19 04:38 Reactive Lymphs % (Man) 0 % 07/02/19 04:38 Monocytes % (Manual) 6.0 % (0.0-7.3) 07/02/19 04:38 Eosinophils % (Manual) 3.0 % (0.0-4.3) 07/02/19 04:38 Basophils % (Manual) 0 % (0.0-1.8) 07/02/19 04:38 Metamyelocytes % 0 % 07/02/19 04:38 Myelocytes % 0 % 07/02/19 04:38 Promyelocytes % 0 % 07/02/19 04:38 Blast Cells % 0 % 07/02/19 04:38 Nucleated RBC % Not Reportable 07/02/19 04:38 Seg Neutrophils # Man 1.0 K/mm3 (1.8-7.7) L 07/02/19 04:38 Band Neutrophils # 0.0 K/mm3 07/02/19 04:38 Lymphocytes # (Manual) 0.7 K/mm3 (1.2-5.4) L 07/02/19 04:38 Abs React Lymphs (Man) 0.0 K/mm3 07/02/19 04:38 Monocytes # (Manual) 0.1 K/mm3 (0.0-0.8) 07/02/19 04:38 Eosinophils # (Manual) 0.1 K/mm3 (0.0-0.4) 07/02/19 04:38 Basophils # (Manual) 0.0 K/mm3 (0.0-0.1) 07/02/19 04:38 Metamyelocytes # 0.0 K/mm3 07/02/19 04:38 Myelocytes # 0.0 K/mm3 07/02/19 04:38 Promyelocytes # 0.0 K/mm3 07/02/19 04:38 Blast Cells # 0.0 K/mm3 07/02/19 04:38 WBC Morphology Not Reportable 07/02/19 04:38 Hypersegmented Neuts Not Reportable 07/02/19 04:38 Hyposegmented Neuts Not Reportable 07/02/19 04:38 Hypogranular Neuts Not Reportable 07/02/19 04:38 Smudge Cells Not Reportable 07/02/19 04:38 Toxic Granulation Not Reportable 07/02/19 04:38 Toxic Vacuolation Not Reportable 07/02/19 04:38 Dohle Bodies Not Reportable 07/02/19 04:38 Pelger-Huet Anomaly Not Reportable 07/02/19 04:38 Mack Rods Not Reportable 07/02/19 04:38 Platelet Estimate Consistent w auto 07/02/19 04:38 Clumped Platelets Not Reportable 07/02/19 04:38 Plt Clumps, EDTA Not Reportable 07/02/19 04:38 Large Platelets Not Reportable 07/02/19 04:38 Giant Platelets Not Reportable 07/02/19 04:38 Platelet Satelliting Not Reportable 07/02/19 04:38 Plt Morphology Comment Not Reportable 07/02/19 04:38 RBC Morphology Not Reportable 07/02/19 04:38 Dimorphic RBCs Not Reportable 07/02/19 04:38 Polychromasia Not Reportable 07/02/19 04:38 Hypochromasia Not Reportable 07/02/19 04:38 Poikilocytosis Not Reportable 07/02/19 04:38 Anisocytosis Few 07/02/19 04:38 Microcytosis Not Reportable 07/02/19 04:38 Macrocytosis Not Reportable 07/02/19 04:38 Spherocytes Not Reportable 07/02/19 04:38 Pappenheimer Bodies Not Reportable 07/02/19 04:38 Sickle Cells Not Reportable 07/02/19 04:38 Target Cells Not Reportable 07/02/19 04:38 Tear Drop Cells Not Reportable 07/02/19 04:38 Ovalocytes Not Reportable 07/02/19 04:38 Helmet Cells Not Reportable 07/02/19 04:38 [place] Bodies Not Reportable 07/02/19 04:38 [place] Rings Not Reportable 07/02/19 04:38 [place] Cells Not Reportable 07/02/19 04:38 Bite Cells Not Reportable 07/02/19 04:38 Crenated Cell Not Reportable 07/02/19 04:38 Elliptocytes Not Reportable 07/02/19 04:38 Acanthocytes (Spur) Not Reportable 07/02/19 04:38 Rouleaux Not Reportable 07/02/19 04:38 Hemoglobin C Crystals Not Reportable 07/02/19 04:38 Schistocytes Not Reportable 07/02/19 04:38 Malaria parasites Not Reportable 07/02/19 04:38 Víctor Bodies Not Reportable 07/02/19 04:38 Hem Pathologist Commnt No 07/02/19 04:38 Sodium TNR 07/04/19 07:47 Potassium TNR 07/04/19 07:47 Chloride TNR 07/04/19 07:47 Carbon Dioxide TNR 07/04/19 07:47 Anion Gap TNR 07/04/19 07:47 BUN TNR 07/04/19 07:47 Creatinine TNR 07/04/19 07:47 Estimated GFR TNR 07/04/19 07:47 BUN/Creatinine Ratio TNR 07/04/19 07:47 Glucose TNR 07/04/19 07:47 Hemoglobin A1c 4.7 % (4-6) 07/01/19 11:57 Lactic Acid 1.80 mmol/L (0.7-2.0) 07/02/19 04:38 Calcium TNR 07/04/19 07:47 Total Bilirubin 1.80 mg/dL (0.1-1.2) H 07/02/19 04:38 AST 33 units/L (5-40) 07/02/19 04:38 ALT 10 units/L (7-56) 07/02/19 04:38 Alkaline Phosphatase 183 units/L (35-129) H 07/02/19 04:38 NT-Pro-B Natriuret Pep 2606 pg/mL (0-450) H 07/01/19 11:57 Total Protein 8.3 g/dL (6.3-8.2) H 07/02/19 04:38 Albumin 3.9 g/dL (3.9-5) 07/02/19 04:38 Albumin/Globulin Ratio 0.9 % 07/02/19 04:38 Lipase 99 units/L (13-60) H 07/01/19 11:57 Urine Color Yellow (Yellow) 07/01/19 13:07 Urine Turbidity Clear (Clear) 07/01/19 13:07 Urine pH 5.0 (5.0-7.0) 07/01/19 13:07 Ur Specific [place] 1.016 (1.003-1.030) 07/01/19 13:07 Urine Protein 100 mg/dl mg/dL (Negative) 07/01/19 13:07 Urine Glucose (UA) Neg mg/dL (Negative) 07/01/19 13:07 Urine Ketones 20 mg/dL (Negative) 07/01/19 13:07 Urine Blood Sm (Negative) 07/01/19 13:07 Urine Nitrite Neg (Negative) 07/01/19 13:07 Urine Bilirubin Neg (Negative) 07/01/19 13:07 Urine Urobilinogen 4.0 mg/dL (<2.0) 07/01/19 13:07 Ur Leukocyte Esterase Neg (Negative) 07/01/19 13:07 Urine WBC (Auto) < 1.0 /HPF (0.0-6.0) 07/01/19 13:07 Urine RBC (Auto) 2.0 /HPF (0.0-6.0) 07/01/19 13:07 U Epithel Cells (Auto) < 1.0 /HPF (0-13.0) 07/01/19 13:07 Urine Bacteria (Auto) 1+ /HPF (Negative) 07/01/19 13:07 Hyaline Casts 6 /LPF 07/01/19 13:07 Urine Mucus Few /HPF 07/01/19 13:07 Plasma/Serum Alcohol 0.24 % (0-0.07) H 07/01/19 11:57 Active Medications - Current Medications Current Medications: Generic Name Dose Route Start Last Admin Trade Name Freq PRN Reason Stop Dose Admin Acetaminophen 650 mg 07/01/19 20:15 07/03/19 21:37 Tylenol PO 650 mg Q4H PRN Administration Pain MILD(1-3)/Fever >100.5/ERWIN Aspirin 81 mg 07/02/19 10:00 07/04/19 09:51 Baby Aspirin PO 81 mg QDAY [facility] Administration Carvedilol 25 mg 07/03/19 10:00 07/04/19 10:16 Coreg PO 25 mg BID TERRELL Administration Heparin Sodium (Porcine) 5,000 unit 07/02/19 10:00 07/04/19 09:51 Heparin SUB-Q 5,000 unit Q12HR TERRELL Administration Hydromorphone HCl 0.5 mg 07/01/19 20:15 Dilaudid IV Q3H PRN Pain , Severe (7-10) Lisinopril 20 mg 07/05/19 10:00 Zestril PO QDAY TERRELL Lorazepam 2 mg 07/01/19 16:42 07/03/19 10:34 Ativan PO 2 mg Q1H PRN Administration CIWA-Ar 8-15 Magnesium Oxide 400 mg 07/02/19 07:30 07/04/19 09:50 Mag-Ox PO 400 mg BID@0730,1630 TERRELL Administration Metoclopramide HCl 10 mg 07/01/19 20:15 Reglan IV Q6H PRN Nausea And Vomiting Metoprolol Tartrate 5 mg 07/02/19 12:14 07/02/19 16:34 Metoprolol IV 5 mg Q4HR PRN Administration HR >130 Nitroglycerin 0.4 mg 07/02/19 05:08 Nitrostat SL .Q5MIN PRN Chest Pain Ondansetron HCl 4 mg 07/01/19 20:15 07/02/19 16:43 Zofran IV 4 mg Q8H PRN Administration Nausea And Vomiting Oxycodone/Acetaminophen 1 tab 07/01/19 20:15 07/04/19 13:15 Percocet 5/325 PO 1 tab Q6H PRN Administration Pain, Moderate (4-6) Pantoprazole Sodium 40 mg 07/02/19 10:00 07/04/19 09:51 Protonix PO 40 mg BID TERRELL Administration Sodium Chloride 10 ml 07/01/19 22:00 07/04/19 09:52 Sodium Chloride Flush Syringe 10 Ml IV 10 ml BID TERRELL Administration Sodium Chloride 10 ml 07/01/19 20:15 Sodium Chloride Flush Syringe 10 Ml IV PRN PRN LINE FLUSH Spironolactone 12.5 mg 07/03/19 10:00 07/04/19 10:16 Aldactone PO 12.5 mg QDAY TERRELL Administration Thiamine HCl 100 mg 07/02/19 10:00 07/04/19 09:50 Vitamin B-1 PO 100 mg QDAY TERRELL Administration Torsemide 20 mg 07/04/19 18:00 Demadex PO BID@0600,1800 TERRELL
[2019-07-05] MEDS: TORSEMIDE 10 MG TAB PO SCH ×2 (05:09→07:50)
[2019-07-05] MEDS: MAGNESIUM OXIDE 400 MG TAB PO SCH ×2 (07:50→10:13)
[2019-07-05] MEDS: HYDROmorphone 1 MG/1 ML INJ IV PRN ×2 (08:15→11:50)
--- NOTE | 2019-07-05 08:22 | Progress Note ---
Subjective Date of service: 07/05/19 Interval history: Impression Doing well off milrinone gtt so far No Cv complaints while in bed Assessment and Plan Acute on chronic CHF Leukopenia Thrombocytopenia Anemia Hx of nonischemic CMP EF 20/25% by echo 10/2016 Hypertension Alcohol abuse Noncompliant with medications and outpatient cardiac follow up Recommendations: Sodium/fluid restriction. Daily weight.. Continue medical therapy for nonischemic cardiomyopathy and chronic systolic heart . Objective Vital Signs Temp Pulse Pulse Resp Resp Resp Resp 07/05/19 04:19 97.9 F 89 16 07/05/19 01:11 87 18 07/05/19 00:57 20 07/05/19 00:36 97.7 F 16 07/04/19 20:05 98.1 F 93 H 18 07/04/19 19:45 93 H 20 20 20 07/04/19 17:05 98.1 F 95 H 18 07/04/19 14:15 20 07/04/19 13:15 20 07/04/19 11:44 98.2 F 94 H 18 07/04/19 10:00 100 H 102 H 18 07/04/19 09:55 102 H 07/04/19 09:00 20 20 20 BP BP Pulse Ox 07/05/19 04:19 106/64 100 07/05/19 01:11 91/55 07/05/19 00:57 91/55 07/05/19 00:36 77/46 07/04/19 20:05 91/49 98 07/04/19 19:45 07/04/19 17:05 83/47 99 07/04/19 14:15 07/04/19 13:15 07/04/19 11:44 93/46 100 07/04/19 10:00 99 07/04/19 09:55 102/56 07/04/19 09:00 - Physical Examination General: No Apparent Distress HEENT: Positive: PERRL Neck: Positive: trachea midline Cardiac: Positive: Reg Rate and Rhythm, S1/S2 Lungs: Positive: Normal Exam Neuro: Positive: Grossly Intact Abdomen: Positive: Unremarkable, Soft Extremities: Present: edema - Labs and Meds CBC 07/04/19 Range/Units 07:47 WBC 2.9 L (4.5-11.0) K/mm3 RBC 2.38 L (3.65-5.03) M/mm3 Hgb 8.0 L (11.8-15.2) gm/dl Hct 24.0 L D (35.5-45.6) % Plt Count 63 L (140-440) K/mm3 Comprehensive Metabolic Panel 07/04/19 Range/Units 07:47 Sodium TNR Potassium TNR Chloride TNR Carbon Dioxide TNR BUN TNR Creatinine TNR Glucose TNR Calcium TNR
[2019-07-05] MEDS ORDERED: LISINOPRIL 20 MG TAB PO SCH (10:00)
[2019-07-05] MEDS: PANTOPRAZOLE 40 MG TAB PO SCH (10:12)
[2019-07-05] MEDS: THIAMINE 100 MG TAB PO SCH (10:13)
[2019-07-05] MEDS: HEPARIN 5,000 UNIT/1 ML VIAL SUB-Q SCH (10:13)
[2019-07-05] MEDS: ASPIRIN 81 MG TAB CHEW PO SCH (10:13)
[2019-07-05 11:05] VITALS: BP 105/59
--- NOTE | 2019-07-05 11:27 | Discharge Summary ---
Providers - Providers Date of Admission: 07/01/19 14:26 Date of discharge: 07/05/19 Attending physician: URIAH BREWER 07/01/19 20:15 Consult to Physician [CONS] Routine Comment: Consulting Provider: VIKKI MASCORRO Physician Instructions: Reason For Exam: chf exacerbation Primary care physician: WOOL WASHER Hospitalization Condition: Fair Disposition: DC- TO HOME OR SELFCARE - Discharge Diagnoses (1) Acute on chronic systolic (congestive) heart failure Status: Acute (2) SIRS (systemic inflammatory response syndrome) Status: Acute Exam - Constitutional Vitals: Temp Pulse Resp BP Pulse Ox 98.0 F 90 18 105/59 99 07/05/19 07:32 07/05/19 07:32 07/05/19 10:08 07/05/19 10:08 07/05/19 07:32 Plan Activity: advance as tolerated Diet: low fat, low cholesterol, low salt, diabetic Plan of Treatment: 1.Follow up with PCP in 1 week. 2.Follow up with cardiology in 1 week. 3.Follow up with Dr. Cordero, Hematology for leukopenia,thrombocytopenia Follow up with: PRIMARY CARE,MD [Primary Care Provider] - 7 Days Prescriptions: Spironolactone [Aldactone] 12.5 mg PO QDAY #30 tablet Aspirin [Aspirin BABY CHEW TAB] 81 mg PO QDAY #30 tab.chew carvediloL [Coreg] 6.25 mg PO BID #60 tablet Nitroglycerin [Nitrostat] 0.4 mg SL .Q5MIN PRN #10 tablet PRN Reason: Chest Pain lisinopriL [Zestril TAB] 20 mg PO QDAY #30 tablet
[2019-07-05] MEDS: SPIRONOLACTONE 25 MG TAB PO SCH (12:08)
[2019-07-05] MEDS: carvediloL 25 MG TAB PO SCH (12:09)
[2019-07-05] MEDS: oxyCODONE /ACETAMINOPHEN 5-325MG TAB PO PRN (13:30)
== END 2019-07-05 15:55 | disposition home or self-care (01) | DRG 291 ==
LOC: ED 10:55 → 4A 14:26
PROVIDERS: ADMIT Internal Medicine; ATTEND Internal Medicine
DX: I11.0 Hypertensive heart disease with heart failure (principal); J96.00 Acute respiratory failure, unspecified whether with hypoxia or hypercapnia; R65.10 Systemic inflammatory response syndrome (SIRS) of non-infectious origin without acute organ dysfunction; E87.2 Acidosis; I50.23 Acute on chronic systolic (congestive) heart failure; F41.9 Anxiety disorder, unspecified; F32.9 Major depressive disorder, single episode, unspecified; J44.9 Chronic obstructive pulmonary disease, unspecified; H91.90 Unspecified hearing loss, unspecified ear; F10.20 Alcohol dependence, uncomplicated; E83.42 Hypomagnesemia; K21.9 Gastro-esophageal reflux disease without esophagitis; D72.819 Decreased white blood cell count, unspecified; D69.6 Thrombocytopenia, unspecified; D64.9 Anemia, unspecified; E66.9 Obesity, unspecified; Z68.35 Body mass index [BMI] 35.0-35.9, adult; Z91.19 Patient's noncompliance with other medical treatment and regimen; Z71.3 Dietary counseling and surveillance; Z82.49 Family history of ischemic heart disease and other diseases of the circulatory system
CPT/HCPCS: 36415; 71045; 80048; 80053; 80320; 81001; 82140; 82962; 83036; 83690; 83880; 85007; 85025; 85027; 87040; 93005; 93010; 93306; 96374; G0378; G0480; J1170; J1644; J1940; J2060; J2260; J2405

== ENCOUNTER 2019-07-12 14:22 | Inpatient (IN) | payer OTHER ==
[2019-07-12] MEDS ORDERED: FUROSEMIDE 40 MG/4 ML INJ ONE (14:31)
[2019-07-12] MEDS ORDERED: FUROSEMIDE 40 MG/4 ML INJ IV ONE (14:31)
[2019-07-12] MEDS ORDERED: NITROGLYCERIN 0.4 MG TAB SUBL SL ONE ×2 (14:31)
--- NOTE | 2019-07-12 14:39 | Emergency Department Report ---
ED Shortness of Breath HPI - General Stated Complaint: LAURA Time Seen by Provider: 07/12/19 14:34 Source: patient, EMS - History of Present Illness Initial Comments: Patient is 48 years old male with history of congestive heart failure, COPD and hypertension. Patient brought to the emergency room via EMS from home for evaluation of difficulty in breathing for the last 3 days. Patient is not compliant with his Lasix. EMS stated that patient initial oxygen saturation was 80% on room air improved to 92% on 2 L. Patient denied any chest pain, fever or chills. MD Complaint: shortness of breath -: Gradual, days(s) (3) Known History Of: congestive heart failure - Related Data Previous Rx's Medication Instructions Recorded Last Taken Type Furosemide [Lasix TAB] 40 mg PO BID #60 tablet 12/07/16 2 Days Ago Rx ~09/14/17 40 mg Magnesium Oxide 400 mg PO BIDAC #60 tablet 12/07/16 1 Day Ago Rx ~09/16/17 Thiamine [Vitamin B-1] 100 mg PO QDAY #30 tablet 12/07/16 2 Days Ago Rx ~09/14/17 100 mg Lisinopril [Zestril] 20 mg PO DAILY #30 tablet 09/18/17 Unknown Rx Pantoprazole [Protonix TAB] 40 mg PO BID #60 tablet 09/18/17 Unknown Rx Aspirin [Aspirin BABY CHEW TAB] 81 mg PO QDAY #30 tab.chew 07/05/19 Unknown Rx Furosemide [Lasix TAB] 40 mg PO BID #60 tablet 07/05/19 Unknown Rx Nitroglycerin [Nitrostat] 0.4 mg SL .Q5MIN PRN #10 tablet 07/05/19 Unknown Rx Spironolactone [Aldactone] 12.5 mg PO QDAY #30 tablet 07/05/19 Unknown Rx carvediloL [Coreg] 6.25 mg PO BID #60 tablet 07/05/19 Unknown Rx lisinopriL [Zestril TAB] 20 mg PO QDAY #30 tablet 07/05/19 Unknown Rx Allergies Allergy/AdvReac Type Severity Reaction Status Date / Time No Known Allergies Allergy Verified 07/01/19 11:20 ED Review of Systems ROS: Stated complaint: LAURA Other details as noted in HPI Comment: All other systems reviewed and negative Constitutional: denies: chills, fever Respiratory: cough, orthopnea, shortness of breath, SOB with exertion, SOB at rest Cardiovascular: denies: chest pain, palpitations Gastrointestinal: denies: abdominal pain, nausea, vomiting Musculoskeletal: denies: back pain ED Past Medical Hx - Past Medical History Hx Hypertension: Yes Hx Congestive Heart Failure: Yes Hx Diabetes: No Hx Psychiatric Treatment: Yes (ANXIETY / DEPRESSION) Hx Asthma: No Hx COPD: Yes Hx HIV: No Additional medical history: HARD OF HEARING - Social History Smoking Status: Never Smoker - Medications Home Medications: Home Medications Medication Instructions Recorded Confirmed Last Taken Type Furosemide [Lasix TAB] 40 mg PO BID #60 tablet 12/07/16 07/05/19 2 Days Ago Rx ~09/14/17 40 mg Magnesium Oxide 400 mg PO BIDAC #60 tablet 12/07/16 07/05/19 1 Day Ago Rx ~09/16/17 Thiamine [Vitamin B-1] 100 mg PO QDAY #30 tablet 12/07/16 07/05/19 2 Days Ago Rx ~09/14/17 100 mg Lisinopril [Zestril] 20 mg PO DAILY #30 tablet 09/18/17 07/05/19 Unknown Rx Pantoprazole [Protonix TAB] 40 mg PO BID #60 tablet 09/18/17 07/05/19 Unknown Rx Aspirin [Aspirin BABY CHEW TAB] 81 mg PO QDAY #30 tab.chew 07/05/19 Unknown Rx Furosemide [Lasix TAB] 40 mg PO BID #60 tablet 07/05/19 Unknown Rx Nitroglycerin [Nitrostat] 0.4 mg SL .Q5MIN PRN #10 tablet 07/05/19 Unknown Rx Spironolactone [Aldactone] 12.5 mg PO QDAY #30 tablet 07/05/19 Unknown Rx carvediloL [Coreg] 6.25 mg PO BID #60 tablet 07/05/19 Unknown Rx lisinopriL [Zestril TAB] 20 mg PO QDAY #30 tablet 07/05/19 Unknown Rx ED Physical Exam - General General appearance: in distress (moderate respiratory distress) - Head Head exam: Present: atraumatic, normocephalic, normal inspection - Eye Eye exam: Present: normal appearance - ENT ENT exam: Present: normal exam, normal orophraynx, mucous membranes moist - Neck Neck exam: Present: normal inspection, full ROM. Absent: tenderness, meningismus, lymphadenopathy, thyromegaly - Respiratory Respiratory exam: Present: respiratory distress, rales, decreased breath sounds. Absent: wheezes, rhonchi, stridor, accessory muscle use, prolonged expiratory - Cardiovascular Cardiovascular Exam: Present: gallop. Absent: systolic murmur, diastolic murmur - GI/Abdominal GI/Abdominal exam: Present: soft, normal bowel sounds. Absent: distended, tenderness, guarding, rebound, rigid, organomegaly, mass, bruit, pulsatile mass, hernia - Extremities Exam Extremities exam: Present: normal capillary refill, pedal edema. Absent: calf tenderness - Back Exam Back exam: Present: normal inspection, full ROM. Absent: CVA tenderness (R), CVA tenderness (L), muscle spasm, paraspinal tenderness, vertebral tenderness - Neurological Exam Neurological exam: Present: alert, oriented X3, CN II-XII intact - Psychiatric Psychiatric exam: Present: anxious - Skin Skin exam: Present: warm, intact, normal color ED Course Vital Signs 07/12/19 07/12/19 07/12/19 14:35 14:37 15:52 Temperature 98.2 F Pulse Rate 125 H 127 H 96 H Respiratory 16 16 Rate Blood Pressure 160/86 116/64 [Left] O2 Sat by Pulse 98 96 Oximetry - Reevaluation(s) Reevaluation #1: 07/12/19 16:16 Patient evaluated by me multiple times. Patient stated that his feeling better but is still having shortness of breath. ED Medical Decision Making - Lab Data Result diagrams: 07/12/19 15:08 07/12/19 15:08 - Radiology Data Radiology results: report reviewed - Medical Decision Making Patient is 48 years old male with history of congestive heart failure, COPD and hypertension. Patient brought to the emergency room via EMS from home for evaluation of difficulty in breathing for the last 3 days. Patient is not compliant with his Lasix. EMS stated that patient initial oxygen saturation was 80% on room air improved to 92% on 2 L. Patient denied any chest pain, fever or chills. Patient refused BiPAP. Patient given 40 mg of Lasix IV and patient already given another 40 mg by EMS. I gave the patient also 0.4 mg of nitroglycerin sublingual. Patient stated that he is feeling better. Chest x-ray showed bilateral pleural effusion with significant pulmonary congestion. EKG showed no ST elevation. Labs showed creatinine of 8 and BUN of 70. Patient creatinine last week was 1.2 indicating an acute renal failure. I discussed the patient with Dr. Cohn, he advised to insert a Astudillo catheter and he will follow up with the patient. I discussed the patient with Dr. Andrew, he agreed to admit the patient to medical service for further management. Critical Care Time: Yes Critical care time in (mins) excluding proc time.: 30 Critical care attestation.: If time is entered above; I have spent that time in minutes in the direct care of this critically ill patient, excluding procedure time. ED Disposition Clinical Impression: Acute renal failure, Acute respiratory failure Acute exacerbation of CHF (congestive heart failure) Qualifiers: Heart failure type: unspecified Qualified Code(s): I50.9 - Heart failure, unspecified Disposition: OP ADMIT IP TO THIS HOSP Is pt being admited?: Yes Condition: Stable
--- NOTE | 2019-07-12 15:09 | XRay Report ---
CHEST 1 VIEW 1436 INDICATION / CLINICAL INFORMATION: Dyspnea. COMPARISON: 07/01/2019 FINDINGS: SUPPORT DEVICES: None HEART / MEDIASTINUM: Cardiomegaly LUNGS / PLEURA: Congestive changes are noted. There may be slight interstitial edema. Bibasilar atele ctatic changes are noted, more on the right. The left hemidiaphragm is poorly defined and I cannot ex clude pneumonitis in the left base. No pneumothorax. ADDITIONAL FINDINGS: No significant additional findings. IMPRESSION: Congestion and basilar density as above Signer Name: Ricardo Rush MD Signed: 07/12/2019 3:05 PM Workstation Name: [id number]
[2019-07-12 15:32] LABS: Hemoglobin 9.7 gm/dl (11.8-15.2); Mean Corpuscular HGB Conc 33 % (32-34); Mean Corpuscular Volume 98 fl (84-94); Platelet Count 124 K/mm3 (140-440); Red Blood Count 2.97 M/mm3 (3.65-5.03); Red Cell Distribution Width 19.8 % (13.2-15.2)
[2019-07-12 15:41] LABS: INR 1.65 (0.87-1.13)
[2019-07-12 15:42] LABS: Partial Thromboplastin Time 47.8 Sec. (24.2-36.6)
[2019-07-12 16:04] LABS: Albumin 3.3 g/dL (3.9-5); Bilirubin,Direct 0.9 mg/dL (0-0.2)
--- NOTE | 2019-07-12 16:14 | History and Physical Report ---
History of Present Illness Chief complaint: I cannot breathe and I do not feel good History of present illness: 48-year-old male with HTN, Systolic CHF(EF 20%), anxiety, depression, COPD, hearing impairment presents to ED for evaluation. Patient states that he has experienced shortness of breath over the past 3 days with progressively worsening symptoms over the same timeframe. Patient acknowledges noncompliance with his diuretic and antihypertensive therapy. EMS notified and upon arrival the patient was found to be in respiratory distress. Patient was found to have a pulse oximetry of 80% and was placed on supplemental oxygen and transported to [facility] for further care and evaluation. Patient seen and evaluated in the emergency department. Patient lab and imaging studies reviewed. Patient is confused and provides limited history. Patient found to have left lower lobe pneumonia, complicated by acute respiratory failure with pulse oximetry of 80% with increase of pulse oximetry to the mid 90s on high flow supplemental oxygen, end-stage renal disease, hyponatremia, hyperkalemia, metabolic acidosis. Patient admitted to medical floor for medical stabilization and treatment due to high risk for cardiopulmonary and renal decompensation. Nephrology team consulted in ED for urgent dialysis. Patient initiated on pneumonia protocol with IV antibiotic therapy. Patient treated with calcium gluconate and Kayexalate for hyperkalemia. EKG showed no changes. Prior admission on 07/01/2019 reviewed. All listed medication reconciled at time of admission. Past History Past Medical History: COPD, heart failure, hypertension, other (See HPI) Past Surgical History: No surgical history, Other (Reviewed) Social history: single. denies: smoking, alcohol abuse, prescription drug abuse Family history: diabetes, hypertension Medications and Allergies Allergies Allergy/AdvReac Type Severity Reaction Status Date / Time No Known Allergies Allergy Verified 07/01/19 11:20 Home Medications Medication Instructions Recorded Confirmed Last Taken Type Furosemide [Lasix TAB] 40 mg PO BID #60 tablet 12/07/16 07/05/19 2 Days Ago Rx ~09/14/17 40 mg Magnesium Oxide 400 mg PO BIDAC #60 tablet 12/07/16 07/05/19 1 Day Ago Rx ~09/16/17 Thiamine [Vitamin B-1] 100 mg PO QDAY #30 tablet 12/07/16 07/05/19 2 Days Ago Rx ~09/14/17 100 mg Lisinopril [Zestril] 20 mg PO DAILY #30 tablet 09/18/17 07/05/19 Unknown Rx Pantoprazole [Protonix TAB] 40 mg PO BID #60 tablet 09/18/17 07/05/19 Unknown Rx Aspirin [Aspirin BABY CHEW TAB] 81 mg PO QDAY #30 tab.chew 07/05/19 Unknown Rx Furosemide [Lasix TAB] 40 mg PO BID #60 tablet 07/05/19 Unknown Rx Nitroglycerin [Nitrostat] 0.4 mg SL .Q5MIN PRN #10 tablet 07/05/19 Unknown Rx Spironolactone [Aldactone] 12.5 mg PO QDAY #30 tablet 07/05/19 Unknown Rx carvediloL [Coreg] 6.25 mg PO BID #60 tablet 07/05/19 Unknown Rx lisinopriL [Zestril TAB] 20 mg PO QDAY #30 tablet 07/05/19 Unknown Rx Review of Systems ROS unobtainable: due to mental status Exam - Constitutional Vitals: Temp Pulse Resp BP Pulse Ox 98.2 F 96 H 16 116/64 96 07/12/19 14:37 07/12/19 15:52 07/12/19 15:52 07/12/19 15:52 07/12/19 15:52 General appearance: Present: mild distress, disheveled - EENT Eyes: Present: PERRL, miosis ENT: hearing intact, clear oral mucosa - Neck Neck: Present: supple, normal ROM - Respiratory Respiratory effort: labored Respiratory: bilateral: diminished, rhonchi - Cardiovascular Heart Sounds: Present: S1 & S2. Absent: rub, click - Extremities Extremities: pulses symmetrical Extremity abnormal: edema Peripheral Pulses: within normal limits - Abdominal General gastrointestinal: Present: soft, non-tender, non-distended, normal bowel sounds Male genitourinary: Present: normal - Integumentary Integumentary: Present: clear, warm, dry - Musculoskeletal Musculoskeletal: generalized weakness - Psychiatric Psychiatric: no appropriate mood/affect, no intact judgment & insight, no memory intact - Neurologic Neurologic: CNII-XII intact, no focal deficits, moves all extremities, no gait normal Results - Labs CBC & Chem 7: 07/12/19 15:08 07/12/19 15:08 Labs: Abnormal lab results 07/12/19 07/12/19 07/12/19 Range/Units 14:46 15:08 15:08 WBC 14.7 H (4.5-11.0) K/mm3 RBC 2.97 L (3.65-5.03) M/mm3 Hgb 9.7 L (11.8-15.2) gm/dl Hct 29.0 L (35.5-45.6) % MCV 98 H (84-94) fl MCH 33 H (28-32) pg RDW 19.8 H (13.2-15.2) % Plt Count 124 L (140-440) K/mm3 PT 19.8 H (12.2-14.9) Sec. INR 1.65 H (0.87-1.13) APTT 47.8 H (24.2-36.6) Sec. Sodium (137-145) mmol/L Potassium (3.6-5.0) mmol/L Chloride (98-107) mmol/L Carbon Dioxide (22-30) mmol/L BUN (9-20) mg/dL Creatinine (0.8-1.5) mg/dL POC Glucose 110 H (70-105) Calcium (8.4-10.2) mg/dL Magnesium (1.7-2.3) mg/dL Total Bilirubin (0.1-1.2) mg/dL Direct Bilirubin (0-0.2) mg/dL AST (5-40) units/L Alkaline Phosphatase (35-129) units/L Albumin (3.9-5) g/dL 07/12/19 07/12/19 Range/Units 15:08 15:08 WBC (4.5-11.0) K/mm3 RBC (3.65-5.03) M/mm3 Hgb (11.8-15.2) gm/dl Hct (35.5-45.6) % MCV (84-94) fl MCH (28-32) pg RDW (13.2-15.2) % Plt Count (140-440) K/mm3 PT (12.2-14.9) Sec. INR (0.87-1.13) APTT (24.2-36.6) Sec. Sodium 125 L (137-145) mmol/L Potassium 5.5 H (3.6-5.0) mmol/L Chloride 84.9 L (98-107) mmol/L Carbon Dioxide 13 L (22-30) mmol/L BUN 70 H (9-20) mg/dL Creatinine 8.8 H (0.8-1.5) mg/dL POC Glucose (70-105) Calcium 8.0 L (8.4-10.2) mg/dL Magnesium 1.30 L (1.7-2.3) mg/dL Total Bilirubin 1.30 H (0.1-1.2) mg/dL Direct Bilirubin 0.9 H (0-0.2) mg/dL AST 53 H (5-40) units/L Alkaline Phosphatase 208 H (35-129) units/L Albumin 3.3 L (3.9-5) g/dL Assessment and Plan - Patient Problems (1) Acute exacerbation of CHF (congestive heart failure) Current Visit: Yes Status: Acute Qualifiers: Heart failure type: systolic Qualified Code(s): I50.23 - Acute on chronic systolic (congestive) heart failure Plan to address problem: Strict I's/O, daily weight, BNP, pulse oximetry, supplemental oxygen, chest x- ray, afterload reduction, or urgent dialysis as per renal team, afterload reduction, repeat BMP in a.m. (2) Acute respiratory failure Current Visit: Yes Status: Acute Qualifiers: Respiratory failure complication: hypoxia Qualified Code(s): J96.01 - Acute respiratory failure with hypoxia Plan to address problem: Supplemental oxygen, nebulizer therapy, pulse oximetry, noninvasive positive pressure ventilation as clinically indicated, urgent dialysis as per renal team. (3) End stage renal disease Current Visit: Yes Status: Acute Plan to address problem: Nephrology consulted in ED, dialysis as per renal team, repeat BMP in a.m. (4) Metabolic acidosis Current Visit: Yes Status: Acute Plan to address problem: IV fluid resuscitation therapy, repeat BMP in a.m., IV bicarbonate therapy. (5) Hyperkalemia Current Visit: Yes Status: Acute Plan to address problem: Calcium gluconate, Kayexalate, repeat BMP in a.m., dialysis as per renal team. EKG showed no EKG changes. (6) Pneumonia Current Visit: Yes Status: Acute Qualifiers: Laterality: left Lung location: lower lobe of lung Plan to address problem: Pneumonia protocol: IV antibiotic therapy, chest x-ray, CBC, CMP, nebulizer therapy, pulse oximetry, blood cultures, repeat CBC in a.m. (7) Hypertension Current Visit: Yes Status: Acute Qualifiers: Hypertension type: essential hypertension Qualified Code(s): I10 - Essential (primary) hypertension Plan to address problem: Monitor blood pressure every shift, continue medical management. (8) DVT prophylaxis Current Visit: Yes Status: Acute Plan to address problem: SCD to bilateral lower extremities while in bed, prophylactic heparin.
[2019-07-12] MEDS ORDERED: CALCIUM GLUCONATE 1,000 MG in SODIUM CHLORIDE 0.9% 100 ML IV ONE (16:17)
[2019-07-12] MEDS ORDERED: SODIUM POLYSTYRENE 15 GM/60 ML ORAL LIQD PO ONE (16:17)
[2019-07-12] MEDS ORDERED: NITROGLYCERIN 0.4 MG TAB SUBL SL PRN (16:20)
[2019-07-12 16:40] LABS: Chol/HDL Ratio 2.75 %
[2019-07-12] MEDS ORDERED: SODIUM CHLORIDE 0.9% 100 ML IV PRN (17:41)
[2019-07-12 18:37] LABS: Hepatitis B Surface Antigen Non-Reactive (Negative); Hepatitis C Virus Antibody Non-Reactive (NonReactive)
[2019-07-12 20:14] LABS: Band Neutrophils # (Manual) 0.9 K/mm3; Basophils % (Manual) 0 % (0.0-1.8); Eosinophils % (Manual) 0 % (0.0-4.3); Total Cells Counted 100
[2019-07-12 20:16] LABS: Anisocytosis 1+; Crenated RBC 1+; Hypochromasia 1+; Platelet Estimate Consistent w Auto
[2019-07-12] MEDS ORDERED: HALOPERIDOL LACTATE 5 MG/1 ML INJ IV PRN (20:39)
[2019-07-12] MEDS ORDERED: LORazepam 2 MG/ML VIAL IV PRN ×2 (20:39)
[2019-07-12] MEDS ORDERED: HALOPERIDOL LACTATE 5 MG/1 ML INJ ONE ×2 (20:45→21:05)
[2019-07-12] MEDS ORDERED: LORazepam 2 MG TAB ONE (20:52)
[2019-07-12] MEDS ORDERED: HEPARIN 5,000 UNIT/1 ML VIAL ONE (21:07)
[2019-07-12] MEDS: HALOPERIDOL LACTATE 5 MG/1 ML INJ IV PRN (21:09)
[2019-07-12] MEDS ORDERED: LORazepam 2 MG/ML VIAL IV ONE (21:30)
--- NOTE | 2019-07-12 21:36 | Post Operative Note ---
Date of procedure: 07/12/19 Pre-op diagnosis: AMS, ARF Post-op diagnosis: same Findings: Confused and combative patient ; IJ access not possible due to agitation ; required ativan per Vadim to calm patient for procedure ; 2 physician consent for emergency dialysis Procedure: R CFV vascath placement Anesthesia: local Surgeon: ARTURO ELMORE Estimated blood loss: minimal Condition: stable Disposition: no change
--- NOTE | 2019-07-12 21:36 | Operative Report ---
Operative Report Operative Report: EXAM: 1. Ultrasound-guided puncture of the right common femoral vein 2. Placement of a common femoral vein triple lumen nontunneled noncuffed hemodialysis catheter. DATE: 07/12/2019 INDICATION: Pulmonary edema with acute renal failure requiring hemodialysis access. MEDICATIONS: Local anesthetic (1% lidocaine). DEVICES: Triple lumen nontunneled noncuffed hemodialysis catheter COMMUNICATIONS SCIENTIST: ARTURO ELMORE MD CONTRAST: None PROCEDURE: The risks, benefits, and alternatives were discussed and the emergency consent was obtained. The patient was severely altered, uremic, and had pulmonary edema requiring emergent dialysis. The patient required Haldol 2 and Ativan for CIWA protocol in order to be calmed enough for the procedure. Giller access was not possible due to agitation. He was combative and confused. His O2 sat was 100% on supplementary oxygen during the procedure. The patient's right common femoral vein was assessed with ultrasound at bedside and determined to be patent prior to procedure. The patient was prepped and draped in a sterile fashion. The puncture site was anesthetized. Under sonographic guidance, the right common femoral vein was punctured with a 18-gauge micropuncture needle and a 0.035 inch wire was advanced through the needle. Over the 0.035 inch wire, dilatation was performed. The catheter was advanced over the wire. 2-0 silk suture was used to secure the catheter. The catheter was charged with heparin 1000 units per mL of space. The central lumen was charged with saline. Biopatch and tegaderm were applied. Sterile dressing applied. FINDINGS: 1. Ultrasound documented patency of the right common femoral vein. The vessel was accessed under direct ultrasound guidance. IMPRESSION: 1. Successful ultrasound guided bedside placement of a right common femoral vein nontunneled noncuffed dual lumen hemodialysis catheter.
[2019-07-12] MEDS ORDERED: MAGNESIUM SULFATE 2 GM/50 ML BAG IV ONE (21:56)
[2019-07-12] MEDS: HEPARIN 5,000 UNIT/1 ML VIAL SUB-Q SCH (22:35)
[2019-07-13] MEDS ORDERED: MAGNESIUM SULFATE 2 GM/50 ML BAG IV ONE (00:08)
[2019-07-13] MEDS: MAGNESIUM OXIDE 400 MG TAB PO SCH ×3 (00:11→21:42)
[2019-07-13] MEDS: PANTOPRAZOLE 40 MG TAB PO SCH ×3 (00:12→21:42)
[2019-07-13 02:06] LABS: Calcium 8.2 mg/dL (8.4-10.2)
[2019-07-13] MEDS ORDERED: FUROSEMIDE 40 MG/4 ML INJ ONE (05:26)
[2019-07-13] MEDS: FUROSEMIDE 40 MG/4 ML INJ IV SCH ×2 (05:44→18:04)
[2019-07-13 06:04] LABS: Hematocrit 30.6 % (35.5-45.6); Hemoglobin 10.2 gm/dl (11.8-15.2); Mean Corpuscular HGB Conc 33 % (32-34); Mean Corpuscular Volume 99 fl (84-94); Platelet Count 135 K/mm3 (140-440); Red Cell Distribution Width 19.4 % (13.2-15.2)
[2019-07-13 06:09] LABS: Calcium 8.2 mg/dL (8.4-10.2)
[2019-07-13 07:18] LABS: Band Neutrophils # (Manual) 5.1 K/mm3; Basophils % (Manual) 0 % (0.0-1.8); Eosinophils % (Manual) 0 % (0.0-4.3); Total Cells Counted 100
[2019-07-13 07:20] LABS: Anisocytosis 1+; Hypochromasia Rare
[2019-07-13 07:21] LABS: Crenated RBC Few; Platelet Estimate Consistent w Auto
--- NOTE | 2019-07-13 09:02 | Ultrasound Report ---
ULTRASOUND RENAL INDICATION: BRODIE COMPARISON: No relevant prior imaging study available. FINDINGS: RIGHT KIDNEY: Size: 11.8 cm. Echogenicity: Normal. Cortical thickness: Normal. Stones: None. Hydronephrosis: None. Cyst or mass: None. LEFT KIDNEY: Detail is low. Size: 10.3 cm. Echogenicity: Normal. Cortical thickness: Normal. Stones: None. Hydronephrosis: None. Cyst or mass: None. Urinary Bladder: No significant abnormality. Free Fluid: Moderate ascites. Additional Findings: None. IMPRESSION: No acute sonographic abnormality of the kidneys. Moderate ascites. Signer Name: Ricardo Rush MD Signed: 07/13/2019 8:58 AM Workstation Name: [id number]
[2019-07-13] MEDS ORDERED: LISINOPRIL 20 MG TAB PO SCH (10:00)
[2019-07-13] MEDS ORDERED: SPIRONOLACTONE 25 MG TAB PO SCH (10:00)
[2019-07-13] MEDS ORDERED: ASPIRIN 81 MG TAB CHEW ONE (11:25)
[2019-07-13] MEDS ORDERED: LISINOPRIL 20 MG TAB ONE (11:26)
[2019-07-13] MEDS ORDERED: PANTOPRAZOLE 40 MG TAB PO ONE (11:26)
[2019-07-13] MEDS ORDERED: HEPARIN 5,000 UNIT/1 ML VIAL ONE (11:26)
[2019-07-13] MEDS: ASPIRIN 81 MG TAB CHEW PO SCH (11:33)
[2019-07-13] MEDS: HEPARIN 5,000 UNIT/1 ML VIAL SUB-Q SCH ×2 (11:33→21:42)
[2019-07-13] MEDS: THIAMINE 100 MG TAB PO SCH ×2 (11:34→13:47)
[2019-07-13] MEDS: BENZOCAINE 20% TOP SPRAY 0.5 ML UNIT DOSE MM NR ×2 (13:47→18:31)
--- NOTE | 2019-07-13 13:48 | Consultation ---
History of Present Illness - Reason for Consult Consult date: 07/13/19 acute renal failure - History of Present Illness This is a 48 y/o M with PMH of systolic CHF (EF 20%), COPD, anxiety, depression, and hearing impairment who presented to ED with c/o worsening shortness of breath, pulse ox of 80%, placed on O2 by EMS en route to ED. Pt found to have LLL PNA, started on Abx. Pt found to have worsening renal function, hyperkalemia, and acidosis, s/p right femoral vas Cath placement and STAT HD last night. Pt seen in ED, awake, oriented to person, place, and time. Pt denies hx of kidney problems to his knowledge. Pt reports taking Advil (2 tabs twice a days, 3 out of 7 days for generalized pain). Pt denies taking spironolactone at home, but takes lisinopril and lasix. We were consulted to evaluate this pt who has worsening BRODIE. Pt denies shortness of breath at this time, reports having sore throat, no acute distress, on NC oxgyen, no family at bedside Past History Past Medical History: COPD, heart failure, hypertension, other (See HPI) Past Surgical History: No surgical history, Other (Reviewed) Social history: single. denies: smoking, alcohol abuse, prescription drug abuse Family history: diabetes, hypertension Medications and Allergies Allergies Allergy/AdvReac Type Severity Reaction Status Date / Time No Known Allergies Allergy Verified 07/01/19 11:20 Home Medications Medication Instructions Recorded Confirmed Last Taken Type Magnesium Oxide 400 mg PO BIDAC #60 tablet 12/07/16 07/13/19 1 Day Ago Rx ~09/16/17 Thiamine [Vitamin B-1] 100 mg PO QDAY #30 tablet 12/07/16 07/13/19 2 Days Ago Rx ~09/14/17 100 mg Lisinopril [Zestril] 20 mg PO DAILY #30 tablet 09/18/17 07/13/19 Unknown Rx Pantoprazole [Protonix TAB] 40 mg PO BID #60 tablet 09/18/17 07/13/19 Unknown Rx Aspirin [Aspirin BABY CHEW TAB] 81 mg PO QDAY #30 tab.chew 07/05/19 07/13/19 Unknown Rx Furosemide [Lasix TAB] 40 mg PO BID #60 tablet 07/05/19 07/13/19 Unknown Rx Nitroglycerin [Nitrostat] 0.4 mg SL .Q5MIN PRN #10 tablet 07/05/19 07/13/19 Unknown Rx Spironolactone [Aldactone] 12.5 mg PO QDAY #30 tablet 07/05/19 07/13/19 Unknown Rx carvediloL [Coreg] 6.25 mg PO BID #60 tablet 07/05/19 07/13/19 Unknown Rx lisinopriL [Zestril TAB] 20 mg PO QDAY #30 tablet 07/05/19 07/13/19 Unknown Rx Active Meds: Active Medications Aspirin (Baby Aspirin) 81 mg PO QDAY [facility] Last Admin: 07/13/19 11:33 Dose: 81 mg Documented by: Benzocaine (Hurricaine One 20% Topical [place]) 1 spray MM PREOP NR Stop: 07/13/19 23:00 Furosemide (Lasix) 40 mg IV 0600,1800 [facility] Last Admin: 07/13/19 05:44 Dose: 40 mg Documented by: Haloperidol Lactate (Haldol) 5 mg IV Q1H PRN PRN Reason: Unrespon. to mult. doses BZD's Last Admin: 07/12/19 21:09 Dose: 5 mg Documented by: Heparin Sodium (Porcine) (Heparin) 5,000 unit SUB-Q Q12HR [facility] Last Admin: 07/13/19 11:33 Dose: 5,000 unit Documented by: Levofloxacin/Dextrose (Levaquin 750mg/150ml) 750 mg in 150 mls @ 100 mls/hr IV Q48H [facility]; Protocol Last Admin: 07/12/19 17:09 Dose: 100 mls/hr Documented by: Sodium Chloride (Nacl 0.9%) 100 mls @ 999 mls/hr IV CHEMA PRN PRN Reason: Hypotension Lisinopril (Zestril) 20 mg PO DAILY [facility] Last Admin: 07/13/19 11:34 Dose: 20 mg Documented by: Magnesium Oxide (Mag-Ox) 400 mg PO BID [facility] Last Admin: 07/13/19 11:34 Dose: 400 mg Documented by: Nitroglycerin (Nitrostat) 0.4 mg SL .Q5MIN PRN PRN Reason: Chest Pain Pantoprazole Sodium (Protonix) 40 mg PO BID [facility] Last Admin: 07/13/19 11:36 Dose: 40 mg Documented by: Spironolactone (Aldactone) 12.5 mg PO QDAY [facility] Last Admin: 07/13/19 11:33 Dose: 12.5 mg Documented by: Thiamine HCl (Vitamin B-1) 100 mg PO QDAY [facility] Review of Systems Constitutional: fatigue, weakness, no fever Cardiovascular: shortness of breath, dyspnea on exertion, leg edema, no chest pain Respiratory: shortness of breath, dyspnea on exertion Gastrointestinal: no abdominal pain, no nausea, no vomiting, no diarrhea, no constipation, no hematemesis, no melena Integumentary: rash Neurological: weakness Exam - Vital Signs Vital signs: Vital Signs Pulse 125 H 07/12/19 14:35 - General Appearance General appearance: other (awake) EENT: ATNC Neck: Present: neck supple Respiratory: Decreased Breath Sounds Heart: regular, S1S2, other (ACCESS: Right femoral vas catheter in place) Gastrointestinal: Present: normoactive bowel sounds. Absent: tenderness Integumentary: other (skin rash to both feet) Neurologic: alert and oriented x3 Musculoskeletal: Present: other (2+ edema to BLE) Results - Lab Results 07/13/19 04:28 07/13/19 04:28 Most recent lab results Calcium 8.2 mg/dL (8.4-10.2) L 07/13/19 04:28 Phosphorus 4.90 mg/dL (2.5-4.5) H 07/13/19 01:32 Magnesium 1.50 mg/dL (1.7-2.3) L 07/13/19 01:32 Assessment and Plan Acute Kidney Injury possibly prerenal/ATN, cardiorenal syndrome, diuretics, ACEI, AIN from NSAIDs, ? underlying CKD process, no obstruction Hyperkalemia High Anion Gap Metabolic Acidosis Acute respiratory failure LLL PNA Anemia Hypomagnesemia Plan: - Renal function reviewed, SCr level decreased to 6.0 today, yesterday's SCr level was 8.8 - Review of labs from 2015-07/02/19 showed SCr level between 0.8-2.0 - S/p Right femoral Vas catheter placement for STAT HD on 07/12/19 - S/p STAT HD on 07/12/19 for UF and clearance (completed HD around 0100 this am), UF removed 4 liters - No urgent indication for HD today at this time - Assess need for HD on daily basis, possibly tomorrow - Renal US mentioned moderate ascites, but no hydronephrosis - Repeat BMP and magnesium level now - Once pt is able to eat, will need low potassium diet - CXR on 07/12/19 showed congestion - On lasix 40 mg IV BID - D/C spironolactone and lisinopril for now in setting of BRODIE and hyperkalemia. - Monitor blood pressure closely, adjust BP regimen if needed - On Abx - Renally dose medications - Astudillo Catheter: No - Renal plan d/w Dr Cohn
[2019-07-13 17:36] LABS: Calcium 7.9 mg/dL (8.4-10.2)
[2019-07-14] MEDS ORDERED: ALBUTEROL 2.5 MG/3 ML NEBU IH ONE (04:54)
[2019-07-14] MEDS: FUROSEMIDE 40 MG/4 ML INJ IV SCH ×2 (05:59→18:26)
--- NOTE | 2019-07-14 07:16 | Progress Note ---
Assessment and Plan Assessment and plan: 48-year-old male with HTN, Systolic CHF(EF 20%), anxiety, depression, COPD, hearing impairment presents to ED for evaluation. Patient states that he has experienced shortness of breath over the past 3 days with progressively worsening symptoms over the same timeframe. Patient acknowledges noncompliance with his diuretic and antihypertensive therapy. EMS notified and upon arrival the patient was found to be in respiratory distress. Patient was found to have a pulse oximetry of 80% and was placed on supplemental oxygen and transported to [facility] for further care and evaluation. Patient seen and evaluated in the emergency department. Patient lab and imaging studies reviewed. Patient is confused and provides limited history. Patient found to have left lower lobe pneumonia, complicated by acute respiratory failure with pulse oximetry of 80% with increase of pulse oximetry to the mid 90s on high flow supplemental oxygen, end-stage renal disease, hyponatremia, hyperkalemia, metabolic acidosis. Patient admitted to medical floor for medical stabilization and treatment due to high risk for cardiopulmonary and renal decompensation. Nephrology team consulted in ED for urgent dialysis. Patient initiated on pneumonia protocol with IV antibiotic therapy. Patient treated with calcium gluconate and Kayexalate for hyperkalemia. EKG showed no changes. * EMS stated that patient initial oxygen saturation was 80% on room air improved to 92% on 2 L. * Patient refused BiPAP in the ED. Patient given 40 mg of Lasix IV and patient already given another 40 mg by EMS. in the ED the patient also received 0.4 mg of nitroglycerin sublingual. * Labs showed creatinine of 8 and BUN of 70. Patient creatinine last week was 1.2 indicating an acute renal failure * Nephrology recommended placing a Astudillo Catheter for accurate I/O Chest x-ray showed bilateral pleural effusion with significant pulmonary congestion. EKG showed no ST elevation. . Acute exacerbation of CHF- Systolic Acute respiratory failure With Hypoxia Acute Kidney Injury possibly prerenal/ATN High Anion Gap Metabolic Acidosis Hyponatremia Anemia Thrombocytopenia Acute Metabolic Encephalopathy Hypertension Hyperkalemia Hypomagnesemia Pneumonia PLAN Continue Strict I's/O, daily weight, BNP, pulse oximetry, supplemental oxygen, afterload reduction, or urgent dialysis as per renal team, afterload reduction, repeat BMP in a.m. Supplemental oxygen, nebulizer therapy, pulse oximetry, noninvasive positive pressure ventilation as clinically indicated, urgent dialysis as per renal team. Nephrology consulted in ED, dialysis as per renal team, repeat BMP in a.m. IV fluid resuscitation therapy, repeat BMP in a.m., IV bicarbonate therapy. Calcium gluconate, Kayexalate, repeat BMP in a.m., dialysis as per renal team. EKG showed no EKG changes. Pneumonia protocol: IV antibiotic therapy, chest x-ray, CBC, CMP, nebulizer therapy, pulse oximetry, blood cultures, repeat CBC in a.m. Monitor blood pressure every shift, continue medical management. DVT/GI prophy Down grade to Telemetry unit History Interval history: Patient seen and examined mental status is improved he answers most questions with a nod or shaking his head he states that he speaks but minimally. He denies any prior history of seizure. He is supposed to be on multiple medications outpatient but reports that he has not been taking them. Hospitalist Physical - Physical exam Narrative exam: VITAL SIGNS: Reviewed. GENERAL: The patient appears normally developed, Vital signs as documented. HEAD: No signs of head trauma. EYES: Pupils are equal. Extraocular motions intact. EARS: Hearing grossly intact. MOUTH: Oropharynx is normal. NECK: No adenopathy, no JVD. CHEST: Chest with clear breath sounds bilaterally. No wheezes, rales, or rhonchi. CARDIAC: Regular rate and rhythm. S1 and S2, without murmurs, gallops, or rubs. VASCULAR: No Edema. Peripheral pulses normal and equal in all extremities. ABDOMEN: Soft, distended abdomen. Nontender. No rebound or guarding, and no masses palpated. Bowel Sounds normal. MUSCULOSKELETAL: Good range of motion of all major joints. Extremities without clubbing, cyanosis or edema. NEUROLOGIC EXAM: Alert and oriented x 3 No focal sensory or strength deficits. He did not speak while with me could not assess his speech.. Follows commands. PSYCHIATRIC: Mood normal. SKIN: detail exam as documented in skin assessment - Constitutional Vitals: Temp Pulse Resp BP Pulse Ox 98.2 F 89 18 157/96 98 07/14/19 04:40 07/14/19 05:49 07/14/19 05:49 07/14/19 04:40 07/14/19 04:40 General appearance: Present: mild distress, disheveled Results - Labs CBC & Chem 7: 07/14/19 07:16 07/14/19 07:16 Labs: Laboratory Last Values WBC 15.9 K/mm3 (4.5-11.0) H 07/13/19 04:28 RBC 3.10 M/mm3 (3.65-5.03) L 07/13/19 04:28 Hgb 10.2 gm/dl (11.8-15.2) L 07/13/19 04:28 Hct 30.6 % (35.5-45.6) L 07/13/19 04:28 MCV 99 fl (84-94) H 07/13/19 04:28 MCH 33 pg (28-32) H 07/13/19 04:28 MCHC 33 % (32-34) 07/13/19 04:28 RDW 19.4 % (13.2-15.2) H 07/13/19 04:28 Plt Count 135 K/mm3 (140-440) L 07/13/19 04:28 Lymph % (Auto) [employer]ing [employer]visor 07/13/19 04:28 [place] % (Auto) Trucking Supervisor 07/13/19 04:28 Eos % (Auto) Trucking Supervisor 07/13/19 04:28 Baso % (Auto) Trucking Supervisor 07/13/19 04:28 Lymph # [employer]ing Supervisor 07/13/19 04:28 [place] # Trucking Supervisor 07/13/19 04:28 Eos # Trucking Supervisor 07/13/19 04:28 Baso # Trucking Supervisor 07/13/19 04:28 Add Manual Diff Complete 07/13/19 04:28 Total Counted 100 07/13/19 04:28 Seg Neutrophils % [employer]ing Supervisor 07/13/19 04:28 Seg Neuts % (Manual) 62.0 % (40.0-70.0) 07/13/19 04:28 Band Neutrophils % 32.0 % 07/13/19 04:28 Lymphocytes % (Manual) 4.0 % (13.4-35.0) L 07/13/19 04:28 Reactive Lymphs % (Man) 0 % 07/13/19 04:28 Monocytes % (Manual) 2.0 % (0.0-7.3) 07/13/19 04:28 Eosinophils % (Manual) 0 % (0.0-4.3) 07/13/19 04:28 Basophils % (Manual) 0 % (0.0-1.8) 07/13/19 04:28 Metamyelocytes % 0 % 07/13/19 04:28 Myelocytes % 0 % 07/13/19 04:28 Promyelocytes % 0 % 07/13/19 04:28 Blast Cells % 0 % 07/13/19 04:28 Nucleated RBC % Not Reportable 07/13/19 04:28 Seg Neutrophils # Trucking Supervisor 07/13/19 04:28 Seg Neutrophils # Man 9.9 K/mm3 (1.8-7.7) H 07/13/19 04:28 Band Neutrophils # 5.1 K/mm3 07/13/19 04:28 Lymphocytes # (Manual) 0.6 K/mm3 (1.2-5.4) L 07/13/19 04:28 Abs React Lymphs (Man) 0.0 K/mm3 07/13/19 04:28 Monocytes # (Manual) 0.3 K/mm3 (0.0-0.8) 07/13/19 04:28 Eosinophils # (Manual) 0.0 K/mm3 (0.0-0.4) 07/13/19 04:28 Basophils # (Manual) 0.0 K/mm3 (0.0-0.1) 07/13/19 04:28 Metamyelocytes # 0.0 K/mm3 07/13/19 04:28 Myelocytes # 0.0 K/mm3 07/13/19 04:28 Promyelocytes # 0.0 K/mm3 07/13/19 04:28 Blast Cells # 0.0 K/mm3 07/13/19 04:28 WBC Morphology Not Reportable 07/13/19 04:28 Hypersegmented Neuts Not Reportable 07/13/19 04:28 Hyposegmented Neuts Not Reportable 07/13/19 04:28 Hypogranular Neuts Not Reportable 07/13/19 04:28 Smudge Cells Not Reportable 07/13/19 04:28 Toxic Granulation Not Reportable 07/13/19 04:28 Toxic Vacuolation Not Reportable 07/13/19 04:28 Dohle Bodies Not Reportable 07/13/19 04:28 Pelger-Huet Anomaly Not Reportable 07/13/19 04:28 Mack Rods Not Reportable 07/13/19 04:28 Platelet Estimate Consistent w auto 07/13/19 04:28 Clumped Platelets Not Reportable 07/13/19 04:28 Plt Clumps, EDTA Not Reportable 07/13/19 04:28 Large Platelets Not Reportable 07/13/19 04:28 Giant Platelets Not Reportable 07/13/19 04:28 Platelet Satelliting Not Reportable 07/13/19 04:28 Plt Morphology Comment Not Reportable 07/13/19 04:28 RBC Morphology Not Reportable 07/13/19 04:28 Dimorphic RBCs Not Reportable 07/13/19 04:28 Polychromasia Not Reportable 07/13/19 04:28 Hypochromasia Rare 07/13/19 04:28 Poikilocytosis Not Reportable 07/13/19 04:28 Anisocytosis 1+ 07/13/19 04:28 Microcytosis Not Reportable 07/13/19 04:28 Macrocytosis Not Reportable 07/13/19 04:28 Spherocytes Not Reportable 07/13/19 04:28 Pappenheimer Bodies Not Reportable 07/13/19 04:28 Sickle Cells Not Reportable 07/13/19 04:28 Target Cells Not Reportable 07/13/19 04:28 Tear Drop Cells Not Reportable 07/13/19 04:28 Ovalocytes Not Reportable 07/13/19 04:28 Helmet Cells Not Reportable 07/13/19 04:28 Jackson-Ronald Bodies Not Reportable 07/13/19 04:28 [place] Rings Not Reportable 07/13/19 04:28 Yolis Cells Not Reportable 07/13/19 04:28 Bite Cells Not Reportable 07/13/19 04:28 Crenated Cell Few 07/13/19 04:28 Elliptocytes Not Reportable 07/13/19 04:28 Acanthocytes (Spur) Not Reportable 07/13/19 04:28 Rouleaux Not Reportable 07/13/19 04:28 Hemoglobin C Crystals Not Reportable 07/13/19 04:28 Schistocytes Not Reportable 07/13/19 04:28 Malaria parasites Not Reportable 07/13/19 04:28 Víctor Bodies Not Reportable 07/13/19 04:28 Hem Pathologist Commnt No 07/13/19 04:28 PT 19.8 Sec. (12.2-14.9) H 07/12/19 15:08 INR 1.65 (0.87-1.13) H 07/12/19 15:08 APTT 47.8 Sec. (24.2-36.6) H 07/12/19 15:08 Sodium 134 mmol/L (137-145) L 07/13/19 16:16 Potassium 4.9 mmol/L (3.6-5.0) 07/13/19 16:16 Chloride 92.2 mmol/L (98-107) L 07/13/19 16:16 Carbon Dioxide 20 mmol/L (22-30) L 07/13/19 16:16 Anion Gap 27 mmol/L 07/13/19 16:16 BUN 55 mg/dL (9-20) H 07/13/19 16:16 Creatinine 6.5 mg/dL (0.8-1.5) H 07/13/19 16:16 Estimated GFR 11 ml/min 07/13/19 16:16 BUN/Creatinine Ratio 8 % 07/13/19 16:16 Glucose 124 mg/dL (75-100) H 07/13/19 16:16 POC Glucose 110 (70-105) H 07/12/19 14:46 Calcium 7.9 mg/dL (8.4-10.2) L 07/13/19 16:16 Phosphorus 4.90 mg/dL (2.5-4.5) H 07/13/19 01:32 Magnesium 1.80 mg/dL (1.7-2.3) 07/13/19 16:16 Total Bilirubin 1.30 mg/dL (0.1-1.2) H 07/12/19 15:08 Direct Bilirubin 0.9 mg/dL (0-0.2) H 07/12/19 15:08 Indirect Bilirubin 0.4 mg/dL 07/12/19 15:08 AST 53 units/L (5-40) H 07/12/19 15:08 ALT 14 units/L (7-56) 07/12/19 15:08 Alkaline Phosphatase 208 units/L (35-129) H 07/12/19 15:08 Troponin T 0.188 ng/mL (0.00-0.029) H* 07/12/19 17:04 NT-Pro-B Natriuret Pep > 15324 pg/mL (0-450) H 07/12/19 15:08 Total Protein 8.0 g/dL (6.3-8.2) 07/12/19 15:08 Albumin 3.3 g/dL (3.9-5) L 07/12/19 15:08 Albumin/Globulin Ratio 0.7 % 07/12/19 15:08 Triglycerides 128 mg/dL (2-149) 07/12/19 15:08 Cholesterol 121 mg/dL (50-199) 07/12/19 15:08 LDL Cholesterol Direct 40 mg/dL (50-130) L 07/12/19 15:08 HDL Cholesterol 44 mg/dL (40-59) 07/12/19 15:08 Cholesterol/HDL Ratio 2.75 % 07/12/19 15:08 Hepatitis A IgM Ab Non-reactive (NonReactive) 07/12/19 17:49 Hep Bs Antigen Non-reactive (Negative) 07/12/19 17:49 Hep B Core IgM Ab Non-reactive (NonReactive) 07/12/19 17:49 Hepatitis C Antibody Non-reactive (NonReactive) 07/12/19 17:49 Active Medications - Current Medications Current Medications: Generic Name Dose Route Start Last Admin Trade Name Freq PRN Reason Stop Dose Admin Albuterol 2.5 mg 07/14/19 04:54 Proventil IH Q4HRT PRN Shortness Of Breath Aspirin 81 mg 07/13/19 10:00 07/13/19 11:33 Baby Aspirin PO 81 mg QDAY TERRELL Administration Furosemide 40 mg 07/13/19 06:00 07/14/19 05:59 Lasix IV 40 mg 0600,1800 TERRELL Administration Haloperidol Lactate 5 mg 07/12/19 21:35 07/12/19 21:09 Haldol IV 5 mg Q1H PRN Administration Unrespon. to mult. doses BZD's Heparin Sodium (Porcine) 5,000 unit 07/12/19 22:00 07/13/19 21:42 Heparin SUB-Q 5,000 unit Q12HR TERRELL Administration Levofloxacin/Dextrose 750 mg in 150 mls @ 100 mls/hr 07/12/19 17:00 07/12/19 17:09 Levaquin 750mg/150ml IV 100 mls/hr Q48H TERRELL Administration Protocol Sodium Chloride 100 mls @ 999 mls/hr 07/12/19 17:41 Nacl 0.9% IV CHEMA PRN Hypotension Magnesium Oxide 400 mg 07/12/19 22:00 07/13/19 21:42 Mag-Ox PO 400 mg BID TERRELL Administration Nitroglycerin 0.4 mg 07/12/19 16:20 Nitrostat SL .Q5MIN PRN Chest Pain Pantoprazole Sodium 40 mg 07/12/19 22:00 07/13/19 21:42 Protonix PO 40 mg BID TERRELL Administration Thiamine HCl 100 mg 07/13/19 10:00 07/13/19 13:47 Vitamin B-1 PO 100 mg QDAY TERRELL Administration
[2019-07-14 08:11] LABS: Hematocrit 25.4 % (35.5-45.6); Hemoglobin 8.6 gm/dl (11.8-15.2); Mean Corpuscular HGB Conc 34 % (32-34); Mean Corpuscular Volume 96 fl (84-94); Platelet Count 114 K/mm3 (140-440); Red Blood Count 2.65 M/mm3 (3.65-5.03); Red Cell Distribution Width 19.7 % (13.2-15.2)
--- NOTE | 2019-07-14 08:12 | XRay Report ---
CHEST - 1 VIEW INDICATION: patient has a VQ scan today COMPARISON: 2 days prior FINDINGS: Support devices: None. Heart: Stable cardiomediastinal silhouette. Lungs/pleura: Persistent central congestion with patchy bibasilar airspace disease and probable smal l left effusion. Additional findings: None. IMPRESSION: Unchanged exam. Signer Name: Nick Pop MD Signed: 07/14/2019 8:07 AM Workstation Name: [id number]
[2019-07-14 08:36] LABS: Calcium 7.7 mg/dL (8.4-10.2)
--- NOTE | 2019-07-14 08:36 | Progress Note ---
Assessment and Plan Acute Kidney Injury possibly prerenal/ATN, cardiorenal syndrome, diuretics, ACEI, AIN from NSAIDs, ? underlying CKD process, no obstruction Hyperkalemia High Anion Gap Metabolic Acidosis Acute respiratory failure LLL PNA Anemia Hypomagnesemia Plan: - HD again today for clearance and volume removal - secondary GN and vasculitis work up ordered - Epogen with HD, iron panel in AM - Review of labs from 2016-07/02/19 showed SCr level between 0.8-2.0 - Renal US mentioned moderate ascites, but no hydronephrosis - CXR on 07/12/19 showed congestion - D/C spironolactone and lisinopril for now in setting of BRODIE and hyperkalemia. - Monitor blood pressure closely, adjust BP regimen if needed - On Abx - Renally dose medications - Astudillo Catheter: No Delmar Donovan MD [phone] Subjective Date of service: 07/14/19 Principal diagnosis: BRODIE Interval history: cont to have SOB Objective - Vital Signs Vital signs: Vital Signs - 12hr 07/13/19 07/13/19 07/14/19 22:00 23:47 04:40 Temperature 98.1 F 98.2 F Pulse Rate 84 105 H Pulse Rate [ Anterior Bilateral Throughout] Respiratory 18 20 Rate Respiratory Rate [Anterior Bilateral Throughout] Blood Pressure 157/96 Blood Pressure 156/99 [Left] O2 Sat by Pulse 98 99 98 Oximetry 07/14/19 05:49 Temperature Pulse Rate Pulse Rate [ 89 Anterior Bilateral Throughout] Respiratory Rate Respiratory 18 Rate [Anterior Bilateral Throughout] Blood Pressure Blood Pressure [Left] O2 Sat by Pulse Oximetry - General Appearance General appearance: well-developed, well-nourished EENT: ATNC, PERRL, mucous membranes moist Neck: no JVD, no carotid bruit Respiratory: Present: Decreased Breath Sounds. Absent: Rales, Ronchi Cardiology: regular, S1S2 Gastrointestinal: normoactive bowel sounds, no tenderness, no distended Integumentary: no rash, warm and dry Neurologic: no focal deficit, no asterixis, alert and oriented x3 Musculoskeletal: other (trace pitting edema in BLE) Psychiatric: mood/affect appropriate, cooperative - Lab 07/14/19 07:16 07/13/19 16:16 Most recent lab results Calcium 7.9 mg/dL (8.4-10.2) L 07/13/19 16:16 Phosphorus 4.90 mg/dL (2.5-4.5) H 07/13/19 01:32 Magnesium 1.80 mg/dL (1.7-2.3) 07/13/19 16:16 Medications & Allergies - Medications Allergies/Adverse Reactions: Allergies No Known Allergies Allergy (Verified 07/01/19 11:20) Home Medications: Home Medications Medication Instructions Recorded Confirmed Last Taken Type Magnesium Oxide 400 mg PO BIDAC #60 tablet 12/07/16 07/13/19 1 Day Ago Rx ~09/16/17 Thiamine [Vitamin B-1] 100 mg PO QDAY #30 tablet 12/07/16 07/13/19 2 Days Ago Rx ~09/14/17 100 mg Lisinopril [Zestril] 20 mg PO DAILY #30 tablet 09/18/17 07/13/19 Unknown Rx Pantoprazole [Protonix TAB] 40 mg PO BID #60 tablet 09/18/17 07/13/19 Unknown Rx Aspirin [Aspirin BABY CHEW TAB] 81 mg PO QDAY #30 tab.chew 07/05/19 07/13/19 Unknown Rx Furosemide [Lasix TAB] 40 mg PO BID #60 tablet 07/05/19 07/13/19 Unknown Rx Nitroglycerin [Nitrostat] 0.4 mg SL .Q5MIN PRN #10 tablet 07/05/19 07/13/19 Unknown Rx Spironolactone [Aldactone] 12.5 mg PO QDAY #30 tablet 07/05/19 07/13/19 Unknown Rx carvediloL [Coreg] 6.25 mg PO BID #60 tablet 07/05/19 07/13/19 Unknown Rx lisinopriL [Zestril TAB] 20 mg PO QDAY #30 tablet 07/05/19 07/13/19 Unknown Rx Active Medications: Generic Name Dose Route Start Last Admin Trade Name Freq PRN Reason Stop Dose Admin Albuterol 2.5 mg 07/14/19 04:54 Proventil IH Q4HRT PRN Shortness Of Breath Aspirin 81 mg 07/13/19 10:00 07/13/19 11:33 Baby Aspirin PO 81 mg QDAY TERRELL Administration Furosemide 40 mg 07/13/19 06:00 07/14/19 05:59 Lasix IV 40 mg 0600,1800 TERRELL Administration Haloperidol Lactate 5 mg 07/12/19 21:35 07/12/19 21:09 Haldol IV 5 mg Q1H PRN Administration Unrespon. to mult. doses BZD's Heparin Sodium (Porcine) 5,000 unit 07/12/19 22:00 07/13/19 21:42 Heparin SUB-Q 5,000 unit Q12HR TERRELL Administration Levofloxacin/Dextrose 750 mg in 150 mls @ 100 mls/hr 07/12/19 17:00 07/12/19 17:09 Levaquin 750mg/150ml IV 100 mls/hr Q48H TERRELL Administration Protocol Sodium Chloride 100 mls @ 999 mls/hr 07/12/19 17:41 Nacl 0.9% IV CHEMA PRN Hypotension Magnesium Oxide 400 mg 07/12/19 22:00 07/13/19 21:42 Mag-Ox PO 400 mg BID TERRELL Administration Nitroglycerin 0.4 mg 07/12/19 16:20 Nitrostat SL .Q5MIN PRN Chest Pain Pantoprazole Sodium 40 mg 07/12/19 22:00 07/13/19 21:42 Protonix PO 40 mg BID TERRELL Administration Thiamine HCl 100 mg 07/13/19 10:00 07/13/19 13:47 Vitamin B-1 PO 100 mg QDAY TERRELL Administration
[2019-07-14 08:52] LABS: Anisocytosis 1+; Basophils % (Manual) 0 % (0.0-1.8); Eosinophils % (Manual) 0 % (0.0-4.3); Platelet Estimate Consistent w Auto; Target Cells Few; Total Cells Counted 100
[2019-07-14] MEDS ORDERED: EPOETIN ALFA 2,000 UNIT/1 ML VIAL IV SCH (09:00)
[2019-07-14] MEDS: ASPIRIN 81 MG TAB CHEW PO SCH (09:31)
[2019-07-14] MEDS: PANTOPRAZOLE 40 MG TAB PO SCH ×2 (09:31→22:47)
[2019-07-14] MEDS: MAGNESIUM OXIDE 400 MG TAB PO SCH ×2 (09:31→22:47)
[2019-07-14] MEDS: THIAMINE 100 MG TAB PO SCH (09:31)
[2019-07-14] MEDS: HEPARIN 5,000 UNIT/1 ML VIAL SUB-Q SCH ×2 (09:31→22:48)
[2019-07-14] MEDS ORDERED: SODIUM CHLORIDE*PRIMING MACHINE ONLY FOR DIALYSIS MC ONE (12:08)
[2019-07-14] MEDS: EPOETIN ALFA 10,000 UNIT/1 ML INJ IV PRN (13:38)
[2019-07-14] MEDS: guaiFENesin 100 MG/5 ML ORAL LIQD PO PRN (14:54)
[2019-07-14] MEDS: levoFLOXacin 500 MG TAB PO SCH (15:16)
--- NOTE | 2019-07-14 15:50 | Progress Note ---
Assessment and Plan Assessment and plan: 48-year-old male with HTN, Systolic CHF(EF 20%), anxiety, depression, COPD, hearing impairment presents to ED for evaluation. Patient states that he has experienced shortness of breath over the past 3 days with progressively worsening symptoms over the same timeframe. Patient acknowledges noncompliance with his diuretic and antihypertensive therapy. EMS notified and upon arrival the patient was found to be in respiratory distress. Patient was found to have a pulse oximetry of 80% and was placed on supplemental oxygen and transported to [facility] for further care and evaluation. Patient seen and evaluated in the emergency department. Patient lab and imaging studies reviewed. Patient is confused and provides limited history. Patient found to have left lower lobe pneumonia, complicated by acute respiratory failure with pulse oximetry of 80% with increase of pulse oximetry to the mid 90s on high flow supplemental oxygen, end-stage renal disease, hyponatremia, hyperkalemia, metabolic acidosis. Patient admitted to medical floor for medical stabilization and treatment due to high risk for cardiopulmonary and renal decompensation. Nephrology team consulted in ED for urgent dialysis. Patient initiated on pneumonia protocol with IV antibiotic therapy. Patient treated with calcium gluconate and Kayexalate for hyperkalemia. EKG showed no changes. * EMS stated that patient initial oxygen saturation was 80% on room air improved to 92% on 2 L. * Patient refused BiPAP in the ED. Patient given 40 mg of Lasix IV and patient already given another 40 mg by EMS. in the ED the patient also received 0.4 mg of nitroglycerin sublingual. * Labs showed creatinine of 8 and BUN of 70. Patient creatinine last week was 1.2 indicating an acute renal failure * Nephrology recommended placing a Astudillo Catheter for accurate I/O Chest x-ray showed bilateral pleural effusion with significant pulmonary congestion. EKG showed no ST elevation. . Acute exacerbation of CHF- Systolic Acute respiratory failure With Hypoxia Acute Kidney Injury possibly prerenal/ATN High Anion Gap Metabolic Acidosis Hyponatremia Anemia Thrombocytopenia Acute Metabolic Encephalopathy Hypertension Hyperkalemia Hypomagnesemia Pneumonia PLAN Continue Strict I's/O, daily weight, BNP, pulse oximetry, supplemental oxygen, afterload reduction, or urgent dialysis as per renal team, afterload reduction, repeat BMP in a.m. Patient had Vas-Cath placed on the groin underwent dialysis. Renal ultrasound showed moderate ascites but no hydronephrosis we will proceed with request for ultrasound-guided thoracentesis and assessment. Nephrology evaluated the patient and once discontinuation of spironolactone and lisinopril in the setting of AK I and hyperkalemia There were able to review patient's records from 2015 and 07/02/2019 which showed a level of creatinine of 0.8-2.0 Supplemental oxygen, nebulizer therapy, pulse oximetry, noninvasive positive pressure ventilation as clinically indicated, urgent dialysis as per renal team. Nephrology consulted in ED, dialysis as per renal team, repeat BMP in a.m. IV fluid resuscitation therapy, repeat BMP in a.m., IV bicarbonate therapy. Calcium gluconate, Kayexalate, repeat BMP in a.m., dialysis as per renal team. EKG showed no EKG changes. Pneumonia protocol: IV antibiotic therapy, chest x-ray, CBC, CMP, nebulizer therapy, pulse oximetry, blood cultures, repeat CBC in a.m. Monitor blood pressure every shift, continue medical management. DVT/GI prophy History Interval history: Patient seen and examined no new complaints today. Hospitalist Physical - Physical exam Narrative exam: VITAL SIGNS: Reviewed. GENERAL: The patient appears normally developed, Vital signs as documented. HEAD: No signs of head trauma. EYES: Pupils are equal. Extraocular motions intact. EARS: Hearing grossly intact. MOUTH: Oropharynx is normal. NECK: No adenopathy, no JVD. CHEST: Chest with clear breath sounds bilaterally. No wheezes, rales, or rhonchi. CARDIAC: Regular rate and rhythm. S1 and S2, without murmurs, gallops, or rubs. VASCULAR: No Edema. Peripheral pulses normal and equal in all extremities. ABDOMEN: Soft, distended abdomen. Nontender. No rebound or guarding, and no masses palpated. Bowel Sounds normal. MUSCULOSKELETAL: Good range of motion of all major joints. Extremities without clubbing, cyanosis or edema. NEUROLOGIC EXAM: Alert and oriented x 3 No focal sensory or strength deficits. He did not speak while with me could not assess his speech.. Follows commands. PSYCHIATRIC: Mood normal. SKIN: detail exam as documented in skin assessment - Constitutional Vitals: Temp Pulse Resp BP Pulse Ox 98.1 F 90 24 154/67 97 07/14/19 14:00 07/14/19 14:07/14/19 14:07/14/19 14:00 07/14/19 10:00 General appearance: Present: mild distress, disheveled Results - Labs CBC & Chem 7: 07/14/19 07:16 07/14/19 07:16 Labs: Laboratory Last Values WBC 8.6 K/mm3 (4.5-11.0) 07/14/19 07:16 RBC 2.65 M/mm3 (3.65-5.03) L 07/14/19 07:16 Hgb 8.6 gm/dl (11.8-15.2) L 07/14/19 07:16 Hct 25.4 % (35.5-45.6) L 07/14/19 07:16 MCV 96 fl (84-94) H 07/14/19 07:16 MCH 33 pg (28-32) H 07/14/19 07:16 MCHC 34 % (32-34) 07/14/19 07:16 RDW 19.7 % (13.2-15.2) H 07/14/19 07:16 Plt Count 114 K/mm3 (140-440) L 07/14/19 07:16 Lymph % (Auto) Clerk Of Scales 07/13/19 04:28 [place] % (Auto) Clerk Of Scales 07/13/19 04:28 Eos % (Auto) Clerk Of Scales 07/13/19 04:28 Baso % (Auto) Clerk Of Scales 07/13/19 04:28 Lymph # Clerk Of Scales 07/13/19 04:28 [place] # Clerk Of Scales 07/13/19 04:28 Eos # Clerk Of Scales 07/13/19 04:28 Baso # Clerk Of Scales 07/13/19 04:28 Add Manual Diff Complete 07/14/19 07:16 Total Counted 100 07/14/19 07:16 Seg Neutrophils % Clerk Of Scales 07/13/19 04:28 Seg Neuts % (Manual) 89.0 % (40.0-70.0) H 07/14/19 07:16 Band Neutrophils % 0 % 07/14/19 07:16 Lymphocytes % (Manual) 4.0 % (13.4-35.0) L 07/14/19 07:16 Reactive Lymphs % (Man) 0 % 07/14/19 07:16 Monocytes % (Manual) 7.0 % (0.0-7.3) 07/14/19 07:16 Eosinophils % (Manual) 0 % (0.0-4.3) 07/14/19 07:16 Basophils % (Manual) 0 % (0.0-1.8) 07/14/19 07:16 Metamyelocytes % 0 % 07/14/19 07:16 Myelocytes % 0 % 07/14/19 07:16 Promyelocytes % 0 % 07/14/19 07:16 Blast Cells % 0 % 07/14/19 07:16 Nucleated RBC % Not Reportable 07/14/19 07:16 Seg Neutrophils # Clerk Of Scales 07/13/19 04:28 Seg Neutrophils # Man 7.7 K/mm3 (1.8-7.7) 07/14/19 07:16 Band Neutrophils # 0.0 K/mm3 07/14/19 07:16 Lymphocytes # (Manual) 0.3 K/mm3 (1.2-5.4) L 07/14/19 07:16 Abs React Lymphs (Man) 0.0 K/mm3 07/14/19 07:16 Monocytes # (Manual) 0.6 K/mm3 (0.0-0.8) 07/14/19 07:16 Eosinophils # (Manual) 0.0 K/mm3 (0.0-0.4) 07/14/19 07:16 Basophils # (Manual) 0.0 K/mm3 (0.0-0.1) 07/14/19 07:16 Metamyelocytes # 0.0 K/mm3 07/14/19 07:16 Myelocytes # 0.0 K/mm3 07/14/19 07:16 Promyelocytes # 0.0 K/mm3 07/14/19 07:16 Blast Cells # 0.0 K/mm3 07/14/19 07:16 WBC Morphology Not Reportable 07/14/19 07:16 Hypersegmented Neuts Not Reportable 07/14/19 07:16 Hyposegmented Neuts Not Reportable 07/14/19 07:16 Hypogranular Neuts Not Reportable 07/14/19 07:16 Smudge Cells Not Reportable 07/14/19 07:16 Toxic Granulation Not Reportable 07/14/19 07:16 Toxic Vacuolation Not Reportable 07/14/19 07:16 Dohle Bodies Not Reportable 07/14/19 07:16 Pelger-Huet Anomaly Not Reportable 07/14/19 07:16 Mack Rods Not Reportable 07/14/19 07:16 Platelet Estimate Consistent w auto 07/14/19 07:16 Clumped Platelets Not Reportable 07/14/19 07:16 Plt Clumps, EDTA Not Reportable 07/14/19 07:16 Large Platelets Not Reportable 07/14/19 07:16 Giant Platelets Not Reportable 07/14/19 07:16 Platelet Satelliting Not Reportable 07/14/19 07:16 Plt Morphology Comment Not Reportable 07/14/19 07:16 RBC Morphology Not Reportable 07/14/19 07:16 Dimorphic RBCs Not Reportable 07/14/19 07:16 Polychromasia Not Reportable 07/14/19 07:16 Hypochromasia Not Reportable 07/14/19 07:16 Poikilocytosis Not Reportable 07/14/19 07:16 Anisocytosis 1+ 07/14/19 07:16 Microcytosis Not Reportable 07/14/19 07:16 Macrocytosis Not Reportable 07/14/19 07:16 Spherocytes Not Reportable 07/14/19 07:16 Pappenheimer Bodies Not Reportable 07/14/19 07:16 Sickle Cells Not Reportable 07/14/19 07:16 Target Cells Few 07/14/19 07:16 Tear Drop Cells Not Reportable 07/14/19 07:16 Ovalocytes Not Reportable 07/14/19 07:16 Helmet Cells Not Reportable 07/14/19 07:16 [place] Bodies Not Reportable 07/14/19 07:16 [place] Rings Not Reportable 07/14/19 07:16 [place] Cells Not Reportable 07/14/19 07:16 Bite Cells Not Reportable 07/14/19 07:16 Crenated Cell Not Reportable 07/14/19 07:16 Elliptocytes Not Reportable 07/14/19 07:16 Acanthocytes (Spur) Not Reportable 07/14/19 07:16 Rouleaux Not Reportable 07/14/19 07:16 Hemoglobin C Crystals Not Reportable 07/14/19 07:16 Schistocytes Not Reportable 07/14/19 07:16 Malaria parasites Not Reportable 07/14/19 07:16 Víctor Bodies Not Reportable 07/14/19 07:16 Hem Pathologist Commnt No 07/14/19 07:16 PT 19.8 Sec. (12.2-14.9) H 07/12/19 15:08 INR 1.65 (0.87-1.13) H 07/12/19 15:08 APTT 47.8 Sec. (24.2-36.6) H 07/12/19 15:08 Sodium 133 mmol/L (137-145) L 07/14/19 07:16 Potassium 4.9 mmol/L (3.6-5.0) 07/14/19 07:16 Chloride 93.0 mmol/L (98-107) L 07/14/19 07:16 Carbon Dioxide 18 mmol/L (22-30) L 07/14/19 07:16 Anion Gap 27 mmol/L 07/14/19 07:16 BUN 61 mg/dL (9-20) H 07/14/19 07:16 Creatinine 7.3 mg/dL (0.8-1.5) H 07/14/19 07:16 Estimated GFR 10 ml/min 07/14/19 07:16 BUN/Creatinine Ratio 8 % 07/14/19 07:16 Glucose 113 mg/dL (75-100) H 07/14/19 07:16 POC Glucose 110 (70-105) H 07/12/19 14:46 Calcium 7.7 mg/dL (8.4-10.2) L 07/14/19 07:16 Phosphorus 4.90 mg/dL (2.5-4.5) H 07/13/19 01:32 Magnesium 1.80 mg/dL (1.7-2.3) 07/13/19 16:16 Total Bilirubin 1.30 mg/dL (0.1-1.2) H 07/12/19 15:08 Direct Bilirubin 0.9 mg/dL (0-0.2) H 07/12/19 15:08 Indirect Bilirubin 0.4 mg/dL 07/12/19 15:08 AST 53 units/L (5-40) H 07/12/19 15:08 ALT 14 units/L (7-56) 07/12/19 15:08 Alkaline Phosphatase 208 units/L (35-129) H 07/12/19 15:08 Lactate Dehydrogenase 210 units/L (91-180) H 07/14/19 07:16 Total Creatine Kinase 59 units/L (55-170) 07/14/19 07:16 Troponin T 0.188 ng/mL (0.00-0.029) H* 07/12/19 17:04 NT-Pro-B Natriuret Pep > 14481 pg/mL (0-450) H 07/12/19 15:08 Total Protein 8.0 g/dL (6.3-8.2) 07/12/19 15:08 Albumin 3.3 g/dL (3.9-5) L 07/12/19 15:08 Albumin/Globulin Ratio 0.7 % 07/12/19 15:08 Triglycerides 128 mg/dL (2-149) 07/12/19 15:08 Cholesterol 121 mg/dL (50-199) 07/12/19 15:08 LDL Cholesterol Direct 40 mg/dL (50-130) L 07/12/19 15:08 HDL Cholesterol 44 mg/dL (40-59) 07/12/19 15:08 Cholesterol/HDL Ratio 2.75 % 07/12/19 15:08 Hepatitis A IgM Ab Non-reactive (NonReactive) 07/12/19 17:49 Hep Bs Antigen Non-reactive (Negative) 07/14/19 11:50 Hep B Core IgM Ab Non-reactive (NonReactive) 07/12/19 17:49 Hepatitis C Antibody Non-reactive (NonReactive) 07/14/19 11:50 Schistocytes Smear Rare 07/14/19 11:50 Active Medications - Current Medications Current Medications: Generic Name Dose Route Start Last Admin Trade Name Freq PRN Reason Stop Dose Admin Albuterol 2.5 mg 07/14/19 04:54 Proventil IH Q4HRT PRN Shortness Of Breath Aspirin 81 mg 07/13/19 10:00 07/14/19 09:31 Baby Aspirin PO 81 mg QDAY TERRELL Administration Epoetin Barney 10,000 unit 07/14/19 10:13 07/14/19 13:38 Procrit IV 10,000 unit CHEMA PRN Administration DIALYSIS Furosemide 40 mg 07/13/19 06:00 07/14/19 05:59 Lasix IV 40 mg 0600,1800 TERRELL Administration Guaifenesin 200 mg 07/14/19 14:02 07/14/19 14:54 Robitussin PO 200 mg Q4H PRN Administration Cough Haloperidol Lactate 5 mg 07/12/19 21:35 07/12/19 21:09 Haldol IV 5 mg Q1H PRN Administration Unrespon. to mult. doses BZD's Heparin Sodium (Porcine) 5,000 unit 07/12/19 22:00 07/14/19 09:31 Heparin SUB-Q 5,000 unit Q12HR TERRELL Administration Sodium Chloride 100 mls @ 999 mls/hr 07/12/19 17:41 Nacl 0.9% IV CHEMA PRN Hypotension Levofloxacin 500 mg 07/14/19 11:00 07/14/19 15:16 Levaquin PO 07/20/19 11:01 500 mg Q48H TERRELL Administration Magnesium Oxide 400 mg 07/12/19 22:00 07/14/19 09:31 Mag-Ox PO 400 mg BID TERRELL Administration Nitroglycerin 0.4 mg 07/12/19 16:20 Nitrostat SL .Q5MIN PRN Chest Pain Pantoprazole Sodium 40 mg 07/12/19 22:00 07/14/19 09:31 Protonix PO 40 mg BID TERRELL Administration Thiamine HCl 100 mg 07/13/19 10:00 07/14/19 09:31 Vitamin B-1 PO 100 mg QDAY TERRELL Administration
[2019-07-14 17:56] LABS: Bacteria,Urine 1+ /HPF (Negative); Bilirubin,Urine NEG (Negative); Blood,Urine SM (Negative); Color,Urine Amber (Yellow); Mucus,Urine FEW /HPF; Urobilinogen,Urine < 2.0 mg/dL (<2.0)
[2019-07-14 17:58] LABS: Creatinine,Urine 106.2 mg/dL (0.1-20.0)
[2019-07-14 18:03] LABS: Creatinine,Urine 104.2 mg/dL (0.1-20.0)
[2019-07-14 18:13] LABS: Protein/Creatinine Ratio,Urine 1.66
[2019-07-14] MEDS ORDERED: TEMAZEPAM 15 MG CAP PO PRN (20:32)
[2019-07-15] MEDS: ALBUTEROL 2.5 MG/3 ML NEBU IH PRN (01:57)
[2019-07-15] MEDS: guaiFENesin 100 MG/5 ML ORAL LIQD PO PRN ×2 (03:07→13:35)
[2019-07-15] MEDS: FUROSEMIDE 40 MG/4 ML INJ IV SCH ×2 (05:14→18:26)
[2019-07-15 07:45] LABS: Hematocrit 29.7 % (35.5-45.6); Hemoglobin 9.9 gm/dl (11.8-15.2); Mean Corpuscular HGB Conc 33 % (32-34); Mean Corpuscular Volume 97 fl (84-94); Platelet Count 101 K/mm3 (140-440); Red Blood Count 3.06 M/mm3 (3.65-5.03); Red Cell Distribution Width 19.5 % (13.2-15.2)
[2019-07-15 07:57] LABS: Albumin 3.1 g/dL (3.9-5); Calcium 8.4 mg/dL (8.4-10.2)
[2019-07-15] MEDS: HEPARIN 5,000 UNIT/1 ML VIAL SUB-Q SCH ×2 (10:00→23:05)
[2019-07-15] MEDS ORDERED: ALBUMIN HUMAN 25% (25 GM/100 ML) INJ IV PRN (10:43)
--- NOTE | 2019-07-15 10:46 | Procedure Note ---
Date of procedure: 07/15/19 Pre-op diagnosis: Ascites Post-op diagnosis: same Procedure: Ultrasound-guided paracentesis. Findings: See radiology report in PACS. Anesthesia: local Surgeon: SRI GONZALEZ Estimated blood loss: none Specimen disposition: to lab Condition: stable Disposition: no change
--- NOTE | 2019-07-15 11:25 | Ultrasound Report ---
Ultrasound-guided paracentesis HISTORY: ascites. Dyspnea PROCEDURE: The risks (including but not limited to bleeding, infection, and bowel injury) and benefi ts were explained to the patient and informed consent was obtained. A time out procedure was perform ed. Ultrasound was used to evaluate the abdomen and locate the largest ascites fluid pocket. Once the sk in was marked, the procedure site was prepped and draped in the usual sterile fashion and lidocaine w as used for local anesthesia. A skin jacob was made and a 6-[place] paracentesis catheter was placed. The patient was monitored closely throughout the procedure, and a total of 3200 mL of thin blood-tin ged fluid was aspirated. Samples were sent to the lab for further evaluation per the primary clinici ans orders. The patient tolerated the procedure well with no complications. IMPRESSION: Successful paracentesis as above with a total of 3200 mL of thin blood-tinged fluid aspir ated. Signer Name: Nick Pop MD Signed: 07/15/2019 11:20 AM Workstation Name: [id number]
[2019-07-15 11:52] LABS: Total Cells Counted 100 /mm3
--- NOTE | 2019-07-15 12:10 | Consultation ---
History of Present Illness Consult date: 07/15/19 Consult reason: congestive heart failure History of present illness: This is a 48-year old male with nonischemic cardiomyopathy, chronic systolic heart failure and known compliance with medications and outpatient cardiac follow up. Patient was admitted 07/12/2019 with respiratory failure and acute kidney injury requiring emergent dialysis. A cardiac consultation has been requested for management of chronic systolic heart failure. Patient denies chest pain. Today he underwent a paracentesis and reports his breathing has improved. His presenting ECG is sinus tachycardia with low voltage. On review review of telemetry strips, on 07/14/19 there is evidence of transient atrial flutter with 2:1 conduction rate that reverted spontaneously to sinus rhythm. Past History Past Medical History: COPD, heart failure, hypertension, other (See HPI) Past Surgical History: No surgical history, Other (Reviewed) Social history: single. denies: smoking, alcohol abuse, prescription drug abuse Family history: diabetes, hypertension Medications and Allergies Allergies Allergy/AdvReac Type Severity Reaction Status Date / Time No Known Allergies Allergy Verified 07/01/19 11:20 Home Medications Medication Instructions Recorded Confirmed Last Taken Type Magnesium Oxide 400 mg PO BIDAC #60 tablet 12/07/16 07/13/19 1 Day Ago Rx ~09/16/17 Thiamine [Vitamin B-1] 100 mg PO QDAY #30 tablet 12/07/16 07/13/19 2 Days Ago Rx ~09/14/17 100 mg Lisinopril [Zestril] 20 mg PO DAILY #30 tablet 09/18/17 07/13/19 Unknown Rx Pantoprazole [Protonix TAB] 40 mg PO BID #60 tablet 09/18/17 07/13/19 Unknown Rx Aspirin [Aspirin BABY CHEW TAB] 81 mg PO QDAY #30 tab.chew 07/05/19 07/13/19 Unknown Rx Furosemide [Lasix TAB] 40 mg PO BID #60 tablet 07/05/19 07/13/19 Unknown Rx Nitroglycerin [Nitrostat] 0.4 mg SL .Q5MIN PRN #10 tablet 07/05/19 07/13/19 Unknown Rx Spironolactone [Aldactone] 12.5 mg PO QDAY #30 tablet 07/05/19 07/13/19 Unknown Rx carvediloL [Coreg] 6.25 mg PO BID #60 tablet 07/05/19 07/13/19 Unknown Rx lisinopriL [Zestril TAB] 20 mg PO QDAY #30 tablet 07/05/19 07/13/19 Unknown Rx Active Meds: Active Medications Albumin Human (Alburx 25% (Albumin)) 25 gm IV ONCE PRN PRN Reason: if > 5 liters of fluid removed Albuterol (Proventil) 2.5 mg IH Q4HRT PRN PRN Reason: Shortness Of Breath Last Admin: 07/15/19 01:57 Dose: 2.5 mg Documented by: Aspirin (Baby Aspirin) 81 mg PO QDAY [facility] Last Admin: 07/14/19 09:31 Dose: 81 mg Documented by: Epoetin Barney (Procrit) 10,000 unit IV CHEMA PRN PRN Reason: DIALYSIS Last Admin: 07/14/19 13:38 Dose: 10,000 unit Documented by: Furosemide (Lasix) 40 mg IV 0600,1800 [facility] Last Admin: 07/15/19 05:14 Dose: 40 mg Documented by: Guaifenesin (Robitussin) 200 mg PO Q4H PRN PRN Reason: Cough Last Admin: 07/15/19 03:07 Dose: 200 mg Documented by: Haloperidol Lactate (Haldol) 5 mg IV Q1H PRN PRN Reason: Unrespon. to mult. doses BZD's Last Admin: 07/12/19 21:09 Dose: 5 mg Documented by: Heparin Sodium (Porcine) (Heparin) 5,000 unit SUB-Q Q12HR [facility] Last Admin: 07/14/19 22:48 Dose: 5,000 unit Documented by: Sodium Chloride (Nacl 0.9%) 100 mls @ 999 mls/hr IV CHEMA PRN PRN Reason: Hypotension Levofloxacin (Levaquin) 500 mg PO Q48H [facility] Stop: 07/20/19 11:01 Last Admin: 07/14/19 15:16 Dose: 500 mg Documented by: Magnesium Oxide (Mag-Ox) 400 mg PO BID [facility] Last Admin: 07/14/19 22:47 Dose: 400 mg Documented by: Nitroglycerin (Nitrostat) 0.4 mg SL .Q5MIN PRN PRN Reason: Chest Pain Pantoprazole Sodium (Protonix) 40 mg PO BID [facility] Last Admin: 07/14/19 22:47 Dose: 40 mg Documented by: Temazepam (Restoril) 15 mg PO QHS PRN PRN Reason: Sleep Last Admin: 07/14/19 22:47 Dose: 15 mg Documented by: Thiamine HCl (Vitamin B-1) 100 mg PO QDAY [facility] Last Admin: 07/14/19 09:31 Dose: 100 mg Documented by: Physical Examination Vital Signs Pulse 125 H 07/12/19 14:35 General appearance: no acute distress HEENT: Positive: PERRL Neck: Positive: trachea midline Cardiac: Positive: Reg Rate and Rhythm Lungs: Positive: Decreased Breath Sounds Neuro: Positive: Grossly Intact Results 07/15/19 06:30 07/15/19 06:30 Cardiac Enzymes 07/15/19 Range/Units 06:30 AST 50 H (5-40) units/L CBC 07/15/19 Range/Units 06:30 WBC 6.7 (4.5-11.0) K/mm3 RBC 3.06 L (3.65-5.03) M/mm3 Hgb 9.9 L (11.8-15.2) gm/dl Hct 29.7 L (35.5-45.6) % Plt Count 101 L (140-440) K/mm3 Comprehensive Metabolic Panel 07/15/19 Range/Units 06:30 Sodium 138 (137-145) mmol/L Potassium 4.3 (3.6-5.0) mmol/L Chloride 95.2 L (98-107) mmol/L Carbon Dioxide 23 (22-30) mmol/L BUN 42 H (9-20) mg/dL Creatinine 4.9 H (0.8-1.5) mg/dL Glucose 89 (75-100) mg/dL Calcium 8.4 (8.4-10.2) mg/dL AST 50 H (5-40) units/L ALT 12 (7-56) units/L Alkaline Phosphatase 191 H (35-129) units/L Total Protein 7.8 (6.3-8.2) g/dL Albumin 3.1 L (3.9-5) g/dL Assessment and Plan Chronic CHF Transient atrial flutter reverted to sinus rhythm spontaneously Acute renal failure s/p urgent dialysis Ascites s/p paracentesis Thrombocytopenia Anemia Hx of nonischemic CMP EF 20/25% by echo 10/2016 no ischemia by MPI at [facility] in 2016 Hypertension Alcohol abuse Noncompliant with medications and outpatient cardiac follow up
[2019-07-15] MEDS: MAGNESIUM OXIDE 400 MG TAB PO SCH ×2 (13:34→23:05)
[2019-07-15] MEDS: PANTOPRAZOLE 40 MG TAB PO SCH ×2 (13:34→23:04)
[2019-07-15] MEDS: ASPIRIN 81 MG TAB CHEW PO SCH (13:34)
[2019-07-15] MEDS: THIAMINE 100 MG TAB PO SCH (13:34)
--- NOTE | 2019-07-15 14:58 | Progress Note ---
Assessment and Plan Acute Kidney Injury possibly prerenal/ATN, cardiorenal syndrome, diuretics, ACEI, AIN from NSAIDs, ? underlying CKD process, no obstruction Hyperkalemia High Anion Gap Metabolic Acidosis Acute respiratory failure LLL PNA Anemia Hypomagnesemia Plan: - no indication for HD today - secondary GN and vasculitis work up ordered - Epogen with HD, iron panel in AM - Review of labs from 2016-07/02/19 showed SCr level between 0.8-2.0 - Renal US mentioned moderate ascites, but no hydronephrosis - CXR on 07/12/19 showed congestion - D/C spironolactone and lisinopril for now in setting of BRODIE and hyperkalemia. - Monitor blood pressure closely, adjust BP regimen if needed - On Abx - Renally dose medications - Astudillo Catheter: No Delmar Donovan MD [phone] Subjective Date of service: 07/15/19 Principal diagnosis: BRODIE Interval history: tolerated HD yesterday, SOB is better Objective - Vital Signs Vital signs: Vital Signs - 12hr 07/15/19 07/15/19 07/15/19 03:34 08:17 10:00 Temperature 98.6 F 98.5 F Pulse Rate 105 H 100 H 105 H Respiratory 20 26 H Rate Blood Pressure 145/69 125/79 O2 Sat by Pulse 97 97 97 Oximetry 07/15/19 07/15/19 13:18 13:22 Temperature 98.5 F Pulse Rate 60 Respiratory 20 Rate Blood Pressure 87/46 82/48 O2 Sat by Pulse 91 90 Oximetry - General Appearance General appearance: well-developed, well-nourished, appears stated age EENT: ATNC, PERRL, mucous membranes moist Neck: no JVD, no carotid bruit Respiratory: Present: Clear to Ascultation Cardiology: regular, S1S2 Gastrointestinal: normoactive bowel sounds, no absent bowel sounds, no tenderness, no distended Integumentary: no rash, warm and dry Neurologic: no focal deficit, no asterixis, alert and oriented x3 Musculoskeletal: other (trace pitting edema in BLE) Psychiatric: mood/affect appropriate, cooperative - Lab 07/15/19 06:30 07/15/19 06:30 Most recent lab results Calcium 8.4 mg/dL (8.4-10.2) 07/15/19 06:30 Phosphorus 3.80 mg/dL (2.5-4.5) 07/15/19 06:30 Magnesium 1.80 mg/dL (1.7-2.3) 07/13/19 16:16 Urine Creatinine 106.2 mg/dL (0.1-20.0) H 07/14/19 17:28 Urine Sodium 67 mmol/L 07/14/19 17:28 Urine Total Protein 173 mg/dL (5-11.8) H 07/14/19 16:40 Medications & Allergies - Medications Allergies/Adverse Reactions: Allergies No Known Allergies Allergy (Verified 07/01/19 11:20) Home Medications: Home Medications Medication Instructions Recorded Confirmed Last Taken Type Magnesium Oxide 400 mg PO BIDAC #60 tablet 12/07/16 07/13/19 1 Day Ago Rx ~09/16/17 Thiamine [Vitamin B-1] 100 mg PO QDAY #30 tablet 12/07/16 07/13/19 2 Days Ago Rx ~09/14/17 100 mg Lisinopril [Zestril] 20 mg PO DAILY #30 tablet 09/18/17 07/13/19 Unknown Rx Pantoprazole [Protonix TAB] 40 mg PO BID #60 tablet 09/18/17 07/13/19 Unknown Rx Aspirin [Aspirin BABY CHEW TAB] 81 mg PO QDAY #30 tab.chew 07/05/19 07/13/19 Unk nown Rx Furosemide [Lasix TAB] 40 mg PO BID #60 tablet 07/05/19 07/13/19 Unknown Rx Nitroglycerin [Nitrostat] 0.4 mg SL .Q5MIN PRN #10 tablet 07/05/19 07/13/19 Unknown Rx Spironolactone [Aldactone] 12.5 mg PO QDAY #30 tablet 07/05/19 07/13/19 Unknown Rx carvediloL [Coreg] 6.25 mg PO BID #60 tablet 07/05/19 07/13/19 Unknown Rx lisinopriL [Zestril TAB] 20 mg PO QDAY #30 tablet 07/05/19 07/13/19 Unknown Rx Active Medications: Generic Name Dose Route Start Last Admin Trade Name Freq PRN Reason Stop Dose Admin Albumin Human 25 gm 07/15/19 10:43 Alburx 25% (Albumin) IV ONCE PRN if > 5 liters of fluid removed Albuterol 2.5 mg 07/14/19 04:54 07/15/19 01:57 Proventil IH 2.5 mg Q4HRT PRN Administration Shortness Of Breath Aspirin 81 mg 07/13/19 10:00 07/15/19 13:34 Baby Aspirin PO 81 mg QDAY TERRELL Administration Epoetin Barney 10,000 unit 07/14/19 10:13 07/14/19 13:38 Procrit IV 10,000 unit CHEMA PRN Administration DIALYSIS Furosemide 40 mg 07/13/19 06:00 07/15/19 05:14 Lasix IV 40 mg 0600,1800 TERRELL Administration Guaifenesin 200 mg 07/14/19 14:02 07/15/19 13:35 Robitussin PO 200 mg Q4H PRN Administration Cough Haloperidol Lactate 5 mg 07/12/19 21:35 07/12/19 21:09 Haldol IV 5 mg Q1H PRN Administration Unrespon. to mult. doses BZD's Heparin Sodium (Porcine) 5,000 unit 07/12/19 22:00 07/15/19 10:00 Heparin SUB-Q Not Given Q12HR [facility] Sodium Chloride 100 mls @ 999 mls/hr 07/12/19 17:41 Nacl 0.9% IV CHEMA PRN Hypotension Levofloxacin 500 mg 07/14/19 11:00 07/14/19 15:16 Levaquin PO 07/20/19 11:01 500 mg Q48H TERRELL Administration Magnesium Oxide 400 mg 07/12/19 22:00 07/15/19 13:34 Mag-Ox PO 400 mg BID TERRELL Administration Nitroglycerin 0.4 mg 07/12/19 16:20 Nitrostat SL .Q5MIN PRN Chest Pain Pantoprazole Sodium 40 mg 07/12/19 22:00 07/15/19 13:34 Protonix PO 40 mg BID TERRELL Administration Temazepam 15 mg 07/14/19 20:32 07/14/19 22:47 Restoril PO 15 mg QHS PRN Administration Sleep Thiamine HCl 100 mg 07/13/19 10:00 07/15/19 13:34 Vitamin B-1 PO 100 mg QDAY TERRELL Administration
--- NOTE | 2019-07-15 20:37 | Progress Note ---
Assessment and Plan Assessment and plan: Patient is a 48-year-old man with a history of HTN, Systolic CHF(EF 20%), anxiety, depression, COPD and hearing impairment who presented to [facility] ED for severe SOB. EMS found patient to have a pulse oximetry of 80% on room air improved to 92% on 2 L of supplemental oxygen. Patient was confused and provided limited history. Patient refused BiPAP. Patient given 40 mg of Lasix IV and and EMS gave 40mg iv lasix prior to arrival. Patient was found to have left lower lobe pneumonia, complicated by acute respiratory failure, severe Uremia, hyponatremia, hyperkalemia, metabolic acidosis. Patient admitted to medical floor for medical stabilization and treatment due to high risk for cardiopulmonary and renal decompensation. Nephrology team consulted in ED for urgent dialysis. Patient initiated on pneumonia protocol with IV antibiotic therapy. Patient treated with calcium gluconate and Kayexalate for hyperkalemia in ED. EKG showed no changes. * pChest x-ray showed bilateral pleural effusion with significant pulmonary congestion. EKG showed no ST elevation. * Initial Labs: WBC 14.7, hgb 9.7, plt 124, Na 125, k 5.5, co2 13, BUN 70, Cr 8.8 Acute on chronic systolic heart failure decompensation leading to respiratroy failure: treated with Ultrafiltration via HD due to severe renal failure, ultrafiltration removed 4 liters Acute hypoxic respiratory failure, refused non-invasive ventilation; therefore, treat with other means, patient noncompliance with wearing O2, evp general counsel that this will led to his demise, call Brother Cheikh [phone] for assistance Severe ARF, suspected due to ATN, cardiorenal, vasomotor poa: treated with emergent HD, daily accessment of HD, d/w nephrology LLL pneumonia: treat with IV abx, unsure if sirs or sepsis poa, see admitting doctor notes AMS, acute metabolic encephalopathy, poa, thought to be due to severe Uremia, restraints used History Interval history: Patient was seen and examined. Follow-up on current diagnosis of ARF, CHF, respiratory failure, still with SOB and low energy. Overnight uneventful as no events directly reported to me. Patient denies any chest pain, nausea/vomiting or severe headaches. Imaging, nursing note, chart, labs and old chart reviewed. Discussed with patient. Hospitalist Physical - Physical exam Narrative exam: Gen: chronic ill appearing, morbid obese bmi 44.1, mild resp failure, a/o x3 HEENT: significant alopecia, NCAT, EOMI, PERRL, OP Clear Neck: supple, no adenopathy, no thyromegaly, +JVD CVS/Heart: RRR, normal S1S2, pulses present bilaterally Chest/Lungs: diminised bs bilateral, Symmetrical chest expansion, good air entry bilaterally GI/Abdomen: soft, NTND, good bowel sounds, no guarding or rebound /Bladder: no suprapubic tenderness, no CVA or paraspinal tenderness Extermity/Skin: ble leg edema, no obvious rash MSK: FROM x 4 Neuro: CN 2-12 grossly intact, no new focal deficits Psych: calm - Constitutional Vitals: Temp Pulse Resp BP Pulse Ox 98.2 F 112 H 18 109/68 100 07/15/19 19:42 07/15/19 19:42 07/15/19 19:42 07/15/19 19:42 07/15/19 19:42 General appearance: Present: no acute distress Results - Labs CBC & Chem 7: 07/15/19 06:30 07/17/19 05:27 Labs: Laboratory Last Values WBC 6.7 K/mm3 (4.5-11.0) 07/15/19 06:30 RBC 3.06 M/mm3 (3.65-5.03) L 07/15/19 06:30 Hgb 9.9 gm/dl (11.8-15.2) L 07/15/19 06:30 Hct 29.7 % (35.5-45.6) L 07/15/19 06:30 MCV 97 fl (84-94) H 07/15/19 06:30 MCH 33 pg (28-32) H 07/15/19 06:30 MCHC 33 % (32-34) 07/15/19 06:30 RDW 19.5 % (13.2-15.2) H 07/15/19 06:30 Plt Count 101 K/mm3 (140-440) L 07/15/19 06:30 Lymph % (Auto) Teletypesetter Operator 07/13/19 04:28 [place] % (Auto) Teletypesetter Operator 07/13/19 04:28 Eos % (Auto) Teletypesetter Operator 07/13/19 04:28 Baso % (Auto) Teletypesetter Operator 07/13/19 04:28 Lymph # Teletypesetter Operator 07/13/19 04:28 [place] # Teletypesetter Operator 07/13/19 04:28 Eos # Teletypesetter Operator 07/13/19 04:28 Baso # Teletypesetter Operator 07/13/19 04:28 Add Manual Diff Complete 07/14/19 07:16 Total Counted 100 07/14/19 07:16 Seg Neutrophils % Teletypesetter Operator 07/13/19 04:28 Seg Neuts % (Manual) 89.0 % (40.0-70.0) H 07/14/19 07:16 Band Neutrophils % 0 % 07/14/19 07:16 Lymphocytes % (Manual) 4.0 % (13.4-35.0) L 07/14/19 07:16 Reactive Lymphs % (Man) 0 % 07/14/19 07:16 Monocytes % (Manual) 7.0 % (0.0-7.3) 07/14/19 07:16 Eosinophils % (Manual) 0 % (0.0-4.3) 07/14/19 07:16 Basophils % (Manual) 0 % (0.0-1.8) 07/14/19 07:16 Metamyelocytes % 0 % 07/14/19 07:16 Myelocytes % 0 % 07/14/19 07:16 Promyelocytes % 0 % 07/14/19 07:16 Blast Cells % 0 % 07/14/19 07:16 Nucleated RBC % Not Reportable 07/14/19 07:16 Seg Neutrophils # Teletypesetter Operator 07/13/19 04:28 Seg Neutrophils # Man 7.7 K/mm3 (1.8-7.7) 07/14/19 07:16 Band Neutrophils # 0.0 K/mm3 07/14/19 07:16 Lymphocytes # (Manual) 0.3 K/mm3 (1.2-5.4) L 07/14/19 07:16 Abs React Lymphs (Man) 0.0 K/mm3 07/14/19 07:16 Monocytes # (Manual) 0.6 K/mm3 (0.0-0.8) 07/14/19 07:16 Eosinophils # (Manual) 0.0 K/mm3 (0.0-0.4) 07/14/19 07:16 Basophils # (Manual) 0.0 K/mm3 (0.0-0.1) 07/14/19 07:16 Metamyelocytes # 0.0 K/mm3 07/14/19 07:16 Myelocytes # 0.0 K/mm3 07/14/19 07:16 Promyelocytes # 0.0 K/mm3 07/14/19 07:16 Blast Cells # 0.0 K/mm3 07/14/19 07:16 WBC Morphology Not Reportable 07/14/19 07:16 Hypersegmented Neuts Not Reportable 07/14/19 07:16 Hyposegmented Neuts Not Reportable 07/14/19 07:16 Hypogranular Neuts Not Reportable 07/14/19 07:16 Smudge Cells Not Reportable 07/14/19 07:16 Toxic Granulation Not Reportable 07/14/19 07:16 Toxic Vacuolation Not Reportable 07/14/19 07:16 Dohle Bodies Not Reportable 07/14/19 07:16 Pelger-Huet Anomaly Not Reportable 07/14/19 07:16 Mack Rods Not Reportable 07/14/19 07:16 Platelet Estimate Consistent w auto 07/14/19 07:16 Clumped Platelets Not Reportable 07/14/19 07:16 Plt Clumps, EDTA Not Reportable 07/14/19 07:16 Large Platelets Not Reportable 07/14/19 07:16 Giant Platelets Not Reportable 07/14/19 07:16 Platelet Satelliting Not Reportable 07/14/19 07:16 Plt Morphology Comment Not Reportable 07/14/19 07:16 RBC Morphology Not Reportable 07/14/19 07:16 Dimorphic RBCs Not Reportable 07/14/19 07:16 Polychromasia Not Reportable 07/14/19 07:16 Hypochromasia Not Reportable 07/14/19 07:16 Poikilocytosis Not Reportable 07/14/19 07:16 Anisocytosis 1+ 07/14/19 07:16 Microcytosis Not Reportable 07/14/19 07:16 Macrocytosis Not Reportable 07/14/19 07:16 Spherocytes Not Reportable 07/14/19 07:16 Pappenheimer Bodies Not Reportable 07/14/19 07:16 Sickle Cells Not Reportable 07/14/19 07:16 Target Cells Few 07/14/19 07:16 Tear Drop Cells Not Reportable 07/14/19 07:16 Ovalocytes Not Reportable 07/14/19 07:16 Helmet Cells Not Reportable 07/14/19 07:16 [place] Bodies Not Reportable 07/14/19 07:16 [place] Rings Not Reportable 07/14/19 07:16 [place] Cells Not Reportable 07/14/19 07:16 Bite Cells Not Reportable 07/14/19 07:16 Crenated Cell Not Reportable 07/14/19 07:16 Elliptocytes Not Reportable 07/14/19 07:16 Acanthocytes (Spur) Not Reportable 07/14/19 07:16 Rouleaux Not Reportable 07/14/19 07:16 Hemoglobin C Crystals Not Reportable 07/14/19 07:16 Schistocytes Not Reportable 07/14/19 07:16 Malaria parasites Not Reportable 07/14/19 07:16 Víctor Bodies Not Reportable 07/14/19 07:16 Hem Pathologist Commnt No 07/14/19 07:16 PT 19.8 Sec. (12.2-14.9) H 07/12/19 15:08 INR 1.65 (0.87-1.13) H 07/12/19 15:08 APTT 47.8 Sec. (24.2-36.6) H 07/12/19 15:08 Sodium 138 mmol/L (137-145) 07/15/19 06:30 Potassium 4.3 mmol/L (3.6-5.0) 07/15/19 06:30 Chloride 95.2 mmol/L (98-107) L 07/15/19 06:30 Carbon Dioxide 23 mmol/L (22-30) 07/15/19 06:30 Anion Gap 24 mmol/L 07/15/19 06:30 BUN 42 mg/dL (9-20) H 07/15/19 06:30 Creatinine 4.9 mg/dL (0.8-1.5) H 07/15/19 06:30 Estimated GFR 15 ml/min 07/15/19 06:30 BUN/Creatinine Ratio 9 % 07/15/19 06:30 Glucose 89 mg/dL (75-100) 07/15/19 06:30 POC Glucose 140 (70-105) H 07/15/19 12:42 Calcium 8.4 mg/dL (8.4-10.2) 07/15/19 06:30 Phosphorus 3.80 mg/dL (2.5-4.5) 07/15/19 06:30 Magnesium 1.80 mg/dL (1.7-2.3) 07/13/19 16:16 Iron 15 ug/dL (49-181) L 07/15/19 06:30 TIBC 186 mcg/dL (250-450) L 07/15/19 06:30 Ferritin 428.2 ng/mL (13.0-400.0) H 07/15/19 06:30 Total Bilirubin 1.20 mg/dL (0.1-1.2) 07/15/19 06:30 Direct Bilirubin 0.9 mg/dL (0-0.2) H 07/12/19 15:08 Indirect Bilirubin 0.4 mg/dL 07/12/19 15:08 AST 50 units/L (5-40) H 07/15/19 06:30 ALT 12 units/L (7-56) 07/15/19 06:30 Alkaline Phosphatase 191 units/L (35-129) H 07/15/19 06:30 Lactate Dehydrogenase 210 units/L (91-180) H 07/14/19 07:16 Total Creatine Kinase 59 units/L (55-170) 07/14/19 07:16 Troponin T 0.188 ng/mL (0.00-0.029) H* 07/12/19 17:04 NT-Pro-B Natriuret Pep > 74322 pg/mL (0-450) H 07/12/19 15:08 Total Protein 7.8 g/dL (6.3-8.2) 07/15/19 06:30 Albumin 3.1 g/dL (3.9-5) L 07/15/19 06:30 Albumin/Globulin Ratio 0.7 % 07/15/19 06:30 Triglycerides 128 mg/dL (2-149) 07/12/19 15:08 Cholesterol 121 mg/dL (50-199) 07/12/19 15:08 LDL Cholesterol Direct 40 mg/dL (50-130) L 07/12/19 15:08 HDL Cholesterol 44 mg/dL (40-59) 07/12/19 15:08 Cholesterol/HDL Ratio 2.75 % 07/12/19 15:08 Urine Color Eugenia (Yellow) 07/14/19 17:28 Urine Turbidity Slightly-cloudy (Clear) 07/14/19 17:28 Urine pH 5.0 (5.0-7.0) 07/14/19 17:28 Ur Specific [place] 1.014 (1.003-1.030) 07/14/19 17:28 Urine Protein 100 mg/dl mg/dL (Negative) 07/14/19 17:28 Urine Glucose (UA) Neg mg/dL (Negative) 07/14/19 17:28 Urine Ketones Neg mg/dL (Negative) 07/14/19 17:28 Urine Blood Sm (Negative) 07/14/19 17:28 Urine Nitrite Neg (Negative) 07/14/19 17: Urine Bilirubin Neg (Negative) 07/14/19 17:28 Urine Urobilinogen < 2.0 mg/dL (<2.0) 07/14/19 17:28 Ur Leukocyte Esterase Neg (Negative) 07/14/19 17:28 Urine WBC (Auto) 31.0 /HPF (0.0-6.0) H 07/14/19 17:28 Urine RBC (Auto) 3.0 /HPF (0.0-6.0) 07/14/19 17:28 U Epithel Cells (Auto) < 1.0 /HPF (0-13.0) 07/14/19 17:28 Urine Bacteria (Auto) 1+ /HPF (Negative) 07/14/19 17:28 Urine Mucus Few /HPF 07/14/19 17:28 Urine Yeast (Budding) Few /HPF 07/14/19 17:28 Urine Eosinophils Rare seen (None Seen) 07/14/19 17:28 Urine Creatinine 106.2 mg/dL (0.1-20.0) H 07/14/19 17:28 Protein/Creatinin Ratio 1.66 07/14/19 16:40 Urine Sodium 67 mmol/L 07/14/19 17:28 Urine Urea Nitrogen 100 07/14/19 17:28 Urine Total Protein 173 mg/dL (5-11.8) H 07/14/19 16:40 Fluid Type Paracentesis 07/14/19 10:45 Fluid Color Bloody 07/14/19 10:45 Fluid Appearance Bloody 07/14/19 10:45 Fluid WBC 120 /mm3 07/14/19 10:45 Fluid RBC 69050 /mm3 07/14/19 10:45 Fluid Seg Neutrophils 33.0 % 07/14/19 10:45 Fluid Lymphocytes 17.0 % 07/14/19 10:45 Fluid Reactive Lymphs 0 % 07/14/19 10:45 Fluid Monocytes 50.0 % 07/14/19 10:45 Fluid Eosinophils 0 % 07/14/19 10:45 Fluid Basophils 0 % 07/14/19 10:45 Hepatitis A IgM Ab Non-reactive (NonReactive) 07/12/19 17:49 Hep Bs Antigen Non-reactive (Negative) 07/14/19 11:50 Hep B Core IgM Ab Non-reactive (NonReactive) 07/12/19 17:49 Hepatitis C Antibody Non-reactive (NonReactive) 07/14/19 11:50 Schistocytes Smear Rare 07/14/19 11:50 Active Medications - Current Medications Current Medications: Generic Name Dose Route Start Last Admin Trade Name Freq PRN Reason Stop Dose Admin Albumin Human 25 gm 07/15/19 10:43 Alburx 25% (Albumin) IV ONCE PRN if > 5 liters of fluid removed Albuterol 2.5 mg 07/14/19 04:54 07/15/19 01:57 Proventil IH 2.5 mg Q4HRT PRN Administration Shortness Of Breath Aspirin 81 mg 07/13/19 10:00 07/15/19 13:34 Baby Aspirin PO 81 mg QDAY TERRELL Administration Epoetin Barney 10,000 unit 07/14/19 10:13 07/14/19 13:38 Procrit IV 10,000 unit CHEMA PRN Administration DIALYSIS Furosemide 40 mg 07/13/19 06:00 07/15/19 18:26 Lasix IV 40 mg 0600,1800 TERRELL Administration Guaifenesin 200 mg 07/14/19 14:02 07/15/19 13:35 Robitussin PO 200 mg Q4H PRN Administration Cough Haloperidol Lactate 5 mg 07/12/19 21:35 07/12/19 21:09 Haldol IV 5 mg Q1H PRN Administration Unrespon. to mult. doses BZD's Heparin Sodium (Porcine) 5,000 unit 07/12/19 22:00 07/15/19 10:00 Heparin SUB-Q Not Given Q12HR TERRELL Sodium Chloride 100 mls @ 999 mls/hr 07/12/19 17:41 Nacl 0.9% IV CHEMA PRN Hypotension Levofloxacin 500 mg 07/14/19 11:00 07/14/19 15:16 Levaquin PO 07/20/19 11:01 500 mg Q48H TERRELL Administration Magnesium Oxide 400 mg 07/12/19 22:00 07/15/19 13:34 Mag-Ox PO 400 mg BID TERRELL Administration Nitroglycerin 0.4 mg 07/12/19 16:20 Nitrostat SL .Q5MIN PRN Chest Pain Pantoprazole Sodium 40 mg 07/12/19 22:00 07/15/19 13:34 Protonix PO 40 mg BID TERRELL Administration Temazepam 15 mg 07/14/19 20:32 07/14/19 22:47 Restoril PO 15 mg QHS PRN Administration Sleep Thiamine HCl 100 mg 07/13/19 10:00 07/15/19 13:34 Vitamin B-1 PO 100 mg QDAY TERRELL Administration
[2019-07-16] MEDS: FUROSEMIDE 40 MG/4 ML INJ IV SCH ×2 (06:01→18:27)
[2019-07-16 07:15] LABS: Calcium 8.7 mg/dL (8.4-10.2)
[2019-07-16] MEDS: levoFLOXacin 500 MG TAB PO SCH (10:39)
[2019-07-16] MEDS: PANTOPRAZOLE 40 MG TAB PO SCH ×2 (10:39→22:43)
[2019-07-16] MEDS: MAGNESIUM OXIDE 400 MG TAB PO SCH ×2 (10:39→22:43)
[2019-07-16] MEDS: guaiFENesin 100 MG/5 ML ORAL LIQD PO PRN (10:39)
[2019-07-16] MEDS: HEPARIN 5,000 UNIT/1 ML VIAL SUB-Q SCH (10:39)
[2019-07-16] MEDS: ASPIRIN 81 MG TAB CHEW PO SCH (10:39)
[2019-07-16] MEDS: THIAMINE 100 MG TAB PO SCH (10:39)
--- NOTE | 2019-07-16 10:58 | Progress Note ---
Assessment and Plan Acute Kidney Injury possibly prerenal/ATN, cardiorenal syndrome, diuretics, ACEI, AIN from NSAIDs, ? underlying CKD process, no obstruction Hyperkalemia High Anion Gap Metabolic Acidosis Acute respiratory failure LLL PNA Anemia Hypomagnesemia Plan: - Renal function reviewed, SCr level increased to 5.6 today, yesterday's SCr level was 4.9 - Review of labs from 2016-07/02/19 showed SCr level between 0.8-2.0 - S/p Right femoral Vas catheter placement for STAT HD on 07/12/19 - HD today for UF and clearance - Assess need for HD on daily basis - Monitor for signs of renal recovery - Epogen dosing for anemia management - Will need to discuss with vascular surgery about dialysis access options, unclear at this time if pt will need intermediate manager dialysis, but will likely benefit from perm catheter placement in case HD is needed upon discharge and given risk of infection with femoral Vas Catheter. - Secondary GN work up ordered - So far Hep panel -> negative - Renal US mentioned moderate ascites, but no hydronephrosis - Low potassium diet - On lasix 40 mg IV BID - Monitor blood pressure closely, adjust BP regimen if needed - On Abx - S/p US guided paracentesis with removal of 3200 ml on 07/15/19 - Renally dose medications - Astudillo Catheter: No - Intake= 480 ml Output= none recorded - Renal plan d/w Dr Cohn Subjective Date of service: 07/16/19 Principal diagnosis: BRODIE Interval history: Pt seen sitting in the chair, oxygen off, respiratory distress, I notified nurse who came and checked his oxygen sats which were in the 60-70s, pt was placed back on NC oxygen, but O2 sats only came up to 81%. Pt was subsequently placed on NRB mask, O2 sats came up to 100%, pt also was tachycardic with HR in 150- 160s initially, HR trended down to 110-120s after about 5 minutes of being on NRB mask. I discussed case with Dr Mauricio (hospitalist), no plan for CT at this time. Discussed with pt about keeping his oxygen mask in place, pt communicated via note pad, answered questions appropriately. We will dialyze pt today, I spoke with dialysis nurse, HD orders placed. No family at bedside Objective - Vital Signs Vital signs: Vital Signs - 12hr 07/15/19 07/16/19 07/16/19 23:33 03:55 07:57 Temperature 97.9 F 98.0 F 98.5 F Pulse Rate 89 90 113 H Respiratory 20 18 18 Rate Blood Pressure 116/55 122/74 149/68 O2 Sat by Pulse 98 91 97 Oximetry - General Appearance General appearance: moderate distress EENT: ATNC Respiratory: Present: Other (Lung sounds coarse bilaterally, less labored on 50% Venti-mask) Cardiology: tachycardia, S1S2, other (ACCESS: Right femoral Vas Catheter in vasiliy ce) Gastrointestinal: normoactive bowel sounds Integumentary: other (skin changes to BLE) Neurologic: alert and oriented x3 (pt communicated via note pad, on Venti-mask) Musculoskeletal: other (2+ edema to BLE) - Lab 07/15/19 06:30 07/16/19 06:19 Most recent lab results Calcium 8.7 mg/dL (8.4-10.2) 07/16/19 06:19 Phosphorus 3.60 mg/dL (2.5-4.5) 07/16/19 06:19 Magnesium 1.80 mg/dL (1.7-2.3) 07/13/19 16:16 Urine Creatinine 106.2 mg/dL (0.1-20.0) H 07/14/19 17:28 Urine Sodium 67 mmol/L 07/14/19 17:28 Urine Total Protein 173 mg/dL (5-11.8) H 07/14/19 16:40 Medications & Allergies - Medications Allergies/Adverse Reactions: Allergies No Known Allergies Allergy (Verified 07/01/19 11:20) Home Medications: Home Medications Medication Instructions Recorded Confirmed Last Taken Type Magnesium Oxide 400 mg PO BIDAC #60 tablet 12/07/16 07/13/19 1 Day Ago Rx ~09/16/17 Thiamine [Vitamin B-1] 100 mg PO QDAY #30 tablet 12/07/16 07/13/19 2 Days Ago Rx ~09/14/17 100 mg Lisinopril [Zestril] 20 mg PO DAILY #30 tablet 09/18/17 07/13/19 Unknown Rx Pantoprazole [Protonix TAB] 40 mg PO BID #60 tablet 09/18/17 07/13/19 Unknown Rx Aspirin [Aspirin BABY CHEW TAB] 81 mg PO QDAY #30 tab.chew 07/05/19 07/13/19 Unknown Rx Furosemide [Lasix TAB] 40 mg PO BID #60 tablet 07/05/19 07/13/19 Unknown Rx Nitroglycerin [Nitrostat] 0.4 mg SL .Q5MIN PRN #10 tablet 07/05/19 07/13/19 Unk nown Rx Spironolactone [Aldactone] 12.5 mg PO QDAY #30 tablet 07/05/19 07/13/19 Unknown Rx carvediloL [Coreg] 6.25 mg PO BID #60 tablet 07/05/19 07/13/19 Unknown Rx lisinopriL [Zestril TAB] 20 mg PO QDAY #30 tablet 07/05/19 07/13/19 Unknown Rx Active Medications: Generic Name Dose Route Start Last Admin Trade Name Freq PRN Reason Stop Dose Admin Albuterol 2.5 mg 07/14/19 04:54 07/15/19 01:57 Proventil IH 2.5 mg Q4HRT PRN Administration Shortness Of Breath Aspirin 81 mg 07/13/19 10:00 07/16/19 10:39 Baby Aspirin PO 81 mg QDAY TERRELL Administration Epoetin Barney 10,000 unit 07/14/19 10:13 07/14/19 13:38 Procrit IV 10,000 unit CHEMA PRN Administration DIALYSIS Furosemide 40 mg 07/13/19 06:00 07/16/19 06:01 Lasix IV 40 mg 0600,1800 TERRELL Administration Guaifenesin 200 mg 07/14/19 14:02 07/16/19 10:39 Robitussin PO 200 mg Q4H PRN Administration Cough Haloperidol Lactate 5 mg 07/12/19 21:35 07/12/19 21:09 Haldol IV 5 mg Q1H PRN Administration Unrespon. to mult. doses BZD's Heparin Sodium (Porcine) 5,000 unit 07/12/19 22:00 07/16/19 10:39 Heparin SUB-Q 5,000 unit Q12HR TERRELL Administration Sodium Chloride 100 mls @ 999 mls/hr 07/12/19 17:41 Nacl 0.9% IV CHEMA PRN Hypotension Levofloxacin 500 mg 07/14/19 11:00 07/16/19 10:39 Levaquin PO 07/20/19 11:01 500 mg Q48H TERRELL Administration Magnesium Oxide 400 mg 07/12/19 22:00 07/16/19 10:39 Mag-Ox PO 400 mg BID TERRELL Administration Nitroglycerin 0.4 mg 07/12/19 16:20 Nitrostat SL .Q5MIN PRN Chest Pain Pantoprazole Sodium 40 mg 07/12/19 22:00 07/16/19 10:39 Protonix PO 40 mg BID TERRELL Administration Temazepam 15 mg 07/14/19 20:32 07/14/19 22:47 Restoril PO 15 mg QHS PRN Administration Sleep Thiamine HCl 100 mg 07/13/19 10:00 07/16/19 10:39 Vitamin B-1 PO 100 mg QDAY TERRELL Administration
[2019-07-16] MEDS ORDERED: SODIUM CHLORIDE 0.9% 100 ML IV PRN (12:11)
--- NOTE | 2019-07-16 12:21 | Progress Note ---
Assessment and Plan Chronic CHF Transient atrial flutter reverted to sinus rhythm spontaneously Acute renal failure s/p urgent dialysis Ascites s/p paracentesis Thrombocytopenia Anemia Hx of nonischemic CMP EF 20/25% by echo 10/2016 no ischemia by MPI at [facility] in 2016 Hypertension Alcohol abuse Noncompliant with medications and outpatient cardiac follow up Recommendations: Dialysis for fluid management. Resume medical therapy for nonischemic cardiomyopathy including afterload agents, beta blockers and oral antiplatelets. We will initiate eliquis for oral anticoagulation for CVA prophylaxis. Subjective Date of service: 07/16/19 Principal diagnosis: BRODIE Interval history: Stable sinus rhythm on telemetry. No cardiac events reported overnight. Objective Vital Signs Temp Pulse Resp BP BP Pulse Ox 07/16/19 07:57 98.5 F 113 H 18 149/68 97 07/16/19 03:55 98.0 F 90 18 122/74 91 07/15/19 23:33 97.9 F 89 20 116/55 98 07/15/19 20:06 97 H 07/15/19 19:42 98.2 F 112 H 18 109/68 100 07/15/19 18:26 102 H 119/65 07/15/19 18:00 95 H 07/15/19 15:43 98.3 F 93 H 20 104/56 93 07/15/19 15:06 101 H 26 H 121/64 07/15/19 13:22 98.5 F 60 20 82/48 90 07/15/19 13:18 87/46 91 - Physical Examination General: No Apparent Distress HEENT: Positive: PERRL Neck: Positive: trachea midline Cardiac: Positive: Reg Rate and Rhythm Lungs: Positive: Decreased Breath Sounds Neuro: Positive: Grossly Intact - Labs and Meds Comprehensive Metabolic Panel 07/16/19 Range/Units 06:19 Sodium 134 L (137-145) mmol/L Potassium 4.3 (3.6-5.0) mmol/L Chloride 92.9 L (98-107) mmol/L Carbon Dioxide 20 L (22-30) mmol/L BUN 55 H (9-20) mg/dL Creatinine 5.6 H (0.8-1.5) mg/dL Glucose 94 (75-100) mg/dL Calcium 8.7 (8.4-10.2) mg/dL
[2019-07-16] MEDS: ALBUTEROL 2.5 MG/3 ML NEBU IH PRN (13:42)
[2019-07-16 22:15] LABS: Calcium 8.8 mg/dL (8.4-10.2)
[2019-07-16] MEDS: carvediloL 6.25 MG TAB PO SCH (22:43)
[2019-07-16] MEDS: APIXABAN 5 MG TAB PO SCH (22:43)
[2019-07-17 06:27] LABS: Calcium 8.9 mg/dL (8.4-10.2)
[2019-07-17] MEDS: FUROSEMIDE 40 MG/4 ML INJ IV SCH ×2 (06:38→17:34)
--- NOTE | 2019-07-17 07:44 | Progress Note ---
Assessment and Plan Assessment and plan: Patient is a 48-year-old man with a history of HTN, Systolic CHF(EF 20%), anxiety, depression, COPD and hearing impairment who presented to [facility] ED for severe SOB. EMS found patient to have a pulse oximetry of 80% on room air improved to 92% on 2 L of supplemental oxygen. Patient was confused and provided limited history. Patient refused BiPAP. Patient given 40 mg of Lasix IV and and EMS gave 40mg iv lasix prior to arrival. Patient was found to have left lower lobe pneumonia, complicated by acute respiratory failure, severe Uremia, hyponatremia, hyperkalemia, metabolic acidosis. Patient admitted to medical floor for medical stabilization and treatment due to high risk for cardiopulmonary and renal decompensation. Nephrology team consulted in ED for urgent dialysis. Patient initiated on pneumonia protocol with IV antibiotic therapy. Patient treated with calcium gluconate and Kayexalate for hyperkalemia in ED. EKG showed no changes. * pChest x-ray showed bilateral pleural effusion with significant pulmonary congestion. EKG showed no ST elevation. * Initial Labs: WBC 14.7, hgb 9.7, plt 124, Na 125, k 5.5, co2 13, BUN 70, Cr 8.8 Acute on chronic systolic heart failure decompensation leading to respiratory failure: treated with Ultrafiltration via HD due to severe renal failure, ultrafiltration removed 4 liters Acute hypoxic respiratory failure, refused non-invasive ventilation; therefore, treat with other means, patient noncompliance with wearing O2, breastfeeding peer counselor that this will led to his demise, call Brother Cheikh [phone] for assistance Severe ARF, suspected due to ATN, cardiorenal, vasomotor poa: treated with emergent HD, daily accessment of HD, d/w nephrology LLL pneumonia: treat with IV abx, unsure if sirs or sepsis poa, see admitting doctor notes AMS, acute metabolic encephalopathy, poa, thought to be due to severe Uremia, restraints used Dispo: continue inpatient care, patient refuse to keep o2 nasal canula on, then he decompensates, urgent HD needed History Interval history: Patient was seen and examined. Follow-up on current diagnosis of ARF, CHF, respiratory failure, still with SOB and low energy. Overnight uneventful as no events directly reported to me. Patient denies any chest pain, nausea/vomiting or severe headaches. Imaging, nursing note, chart, labs and old chart reviewed. Discussed with patient. Hospitalist Physical - Physical exam Narrative exam: Gen: chronic ill appearing, morbid obese bmi 44.1, mild resp failure, a/o x3 HEENT: significant alopecia, NCAT, EOMI, PERRL, OP Clear Neck: supple, no adenopathy, no thyromegaly, +JVD CVS/Heart: RRR, normal S1S2, pulses present bilaterally Chest/Lungs: diminised bs bilateral, Symmetrical chest expansion, good air entry bilaterally GI/Abdomen: soft, NTND, good bowel sounds, no guarding or rebound /Bladder: no suprapubic tenderness, no CVA or paraspinal tenderness Extermity/Skin: ble leg edema, no obvious rash MSK: FROM x 4 Neuro: CN 2-12 grossly intact, no new focal deficits Psych: calm - Constitutional Vitals: Temp Pulse Resp BP Pulse Ox 97.9 F 76 42 H 117/65 88 07/16/19 19:49 07/16/19 22:46 07/16/19 22:46 07/16/19 22:46 07/16/19 22:46 General appearance: Present: no acute distress Results - Labs CBC & Chem 7: 07/15/19 06:30 07/17/19 05:27 Labs: Laboratory Last Values WBC 6.7 K/mm3 (4.5-11.0) 07/15/19 06:30 RBC 3.06 M/mm3 (3.65-5.03) L 07/15/19 06:30 Hgb 9.9 gm/dl (11.8-15.2) L 07/15/19 06:30 Hct 29.7 % (35.5-45.6) L 07/15/19 06:30 MCV 97 fl (84-94) H 07/15/19 06:30 MCH 33 pg (28-32) H 07/15/19 06:30 MCHC 33 % (32-34) 07/15/19 06:30 RDW 19.5 % (13.2-15.2) H 07/15/19 06:30 Plt Count 101 K/mm3 (140-440) L 07/15/19 06:30 Lymph % (Auto) Senior Staff Psychologist 07/13/19 04:28 Elk % (Auto) Senior Staff Psychologist 07/13/19 04:28 Eos % (Auto) Senior Staff Psychologist 07/13/19 04:28 Baso % (Auto) Senior Staff Psychologist 07/13/19 04:28 Lymph # Senior Staff Psychologist 07/13/19 04:28 Elk # Senior Staff Psychologist 07/13/19 04:28 Eos # Senior Staff Psychologist 07/13/19 04:28 Baso # Senior Staff Psychologist 07/13/19 04:28 Add Manual Diff Complete 07/14/19 07:16 Total Counted 100 07/14/19 07:16 Seg Neutrophils % Senior Staff Psychologist 07/13/19 04:28 Seg Neuts % (Manual) 89.0 % (40.0-70.0) H 07/14/19 07:16 Band Neutrophils % 0 % 07/14/19 07:16 Lymphocytes % (Manual) 4.0 % (13.4-35.0) L 07/14/19 07:16 Reactive Lymphs % (Man) 0 % 07/14/19 07:16 Monocytes % (Manual) 7.0 % (0.0-7.3) 07/14/19 07:16 Eosinophils % (Manual) 0 % (0.0-4.3) 07/14/19 07:16 Basophils % (Manual) 0 % (0.0-1.8) 07/14/19 07:16 Metamyelocytes % 0 % 07/14/19 07:16 Myelocytes % 0 % 07/14/19 07:16 Promyelocytes % 0 % 07/14/19 07:16 Blast Cells % 0 % 07/14/19 07:16 Nucleated RBC % Not Reportable 07/14/19 07:16 Seg Neutrophils # Senior Staff Psychologist 07/13/19 04:28 Seg Neutrophils # Man 7.7 K/mm3 (1.8-7.7) 07/14/19 07:16 Band Neutrophils # 0.0 K/mm3 07/14/19 07:16 Lymphocytes # (Manual) 0.3 K/mm3 (1.2-5.4) L 07/14/19 07:16 Abs React Lymphs (Man) 0.0 K/mm3 07/14/19 07:16 Monocytes # (Manual) 0.6 K/mm3 (0.0-0.8) 07/14/19 07:16 Eosinophils # (Manual) 0.0 K/mm3 (0.0-0.4) 07/14/19 07:16 Basophils # (Manual) 0.0 K/mm3 (0.0-0.1) 07/14/19 07:16 Metamyelocytes # 0.0 K/mm3 07/14/19 07:16 Myelocytes # 0.0 K/mm3 07/14/19 07:16 Promyelocytes # 0.0 K/mm3 07/14/19 07:16 Blast Cells # 0.0 K/mm3 07/14/19 07:16 WBC Morphology Not Reportable 07/14/19 07:16 Hypersegmented Neuts Not Reportable 07/14/19 07:16 Hyposegmented Neuts Not Reportable 07/14/19 07:16 Hypogranular Neuts Not Reportable 07/14/19 07:16 Smudge Cells Not Reportable 07/14/19 07:16 Toxic Granulation Not Reportable 07/14/19 07:16 Toxic Vacuolation Not Reportable 07/14/19 07:16 Dohle Bodies Not Reportable 07/14/19 07:16 Pelger-Huet Anomaly Not Reportable 07/14/19 07:16 Mack Rods Not Reportable 07/14/19 07:16 Platelet Estimate Consistent w auto 07/14/19 07:16 Clumped Platelets Not Reportable 07/14/19 07:16 Plt Clumps, EDTA Not Reportable 07/14/19 07:16 Large Platelets Not Reportable 07/14/19 07:16 Giant Platelets Not Reportable 07/14/19 07:16 Platelet Satelliting Not Reportable 07/14/19 07:16 Plt Morphology Comment Not Reportable 07/14/19 07:16 RBC Morphology Not Reportable 07/14/19 07:16 Dimorphic RBCs Not Reportable 07/14/19 07:16 Polychromasia Not Reportable 07/14/19 07:16 Hypochromasia Not Reportable 07/14/19 07:16 Poikilocytosis Not Reportable 07/14/19 07:16 Anisocytosis 1+ 07/14/19 07:16 Microcytosis Not Reportable 07/14/19 07:16 Macrocytosis Not Reportable 07/14/19 07:16 Spherocytes Not Reportable 07/14/19 07:16 Pappenheimer Bodies Not Reportable 07/14/19 07:16 Sickle Cells Not Reportable 07/14/19 07:16 Target Cells Few 07/14/19 07:16 Tear Drop Cells Not Reportable 07/14/19 07:16 Ovalocytes Not Reportable 07/14/19 07:16 Helmet Cells Not Reportable 07/14/19 07:16 Jackson-John Day Bodies Not Reportable 07/14/19 07:16 Hector Rings Not Reportable 07/14/19 07:16 Yolis Cells Not Reportable 07/14/19 07:16 Bite Cells Not Reportable 07/14/19 07:16 Crenated Cell Not Reportable 07/14/19 07:16 Elliptocytes Not Reportable 07/14/19 07:16 Acanthocytes (Spur) Not Reportable 07/14/19 07:16 Rouleaux Not Reportable 07/14/19 07:16 Hemoglobin C Crystals Not Reportable 07/14/19 07:16 Schistocytes Not Reportable 07/14/19 07:16 Malaria parasites Not Reportable 07/14/19 07:16 Víctor Bodies Not Reportable 07/14/19 07:16 Hem Pathologist Commnt No 07/14/19 07:16 PT 19.8 Sec. (12.2-14.9) H 07/12/19 15:08 INR 1.65 (0.87-1.13) H 07/12/19 15:08 APTT 47.8 Sec. (24.2-36.6) H 07/12/19 15:08 Sodium 136 mmol/L (137-145) L 07/17/19 05:27 Potassium 5.0 mmol/L (3.6-5.0) D 07/17/19 05:27 Chloride 93.6 mmol/L (98-107) L 07/17/19 05:27 Carbon Dioxide 23 mmol/L (22-30) 07/17/19 05:27 Anion Gap 24 mmol/L 07/17/19 05:27 BUN 43 mg/dL (9-20) H 07/17/19 05:27 Creatinine 4.8 mg/dL (0.8-1.5) H 07/17/19 05:27 Estimated GFR 16 ml/min 07/17/19 05:27 BUN/Creatinine Ratio 9 % 07/17/19 05:27 Glucose 81 mg/dL (75-100) 07/17/19 05:27 POC Glucose 140 (70-105) H 07/15/19 12:42 Calcium 8.9 mg/dL (8.4-10.2) 07/17/19 05:27 Phosphorus 4.20 mg/dL (2.5-4.5) 07/17/19 05:27 Magnesium 1.70 mg/dL (1.7-2.3) 07/16/19 21:34 Iron 15 ug/dL (49-181) L 07/15/19 06:30 TIBC 186 mcg/dL (250-450) L 07/15/19 06:30 Ferritin 428.2 ng/mL (13.0-400.0) H 07/15/19 06:30 Total Bilirubin 1.20 mg/dL (0.1-1.2) 07/15/19 06:30 Direct Bilirubin 0.9 mg/dL (0-0.2) H 07/12/19 15:08 Indirect Bilirubin 0.4 mg/dL 07/12/19 15:08 AST 50 units/L (5-40) H 07/15/19 06:30 ALT 12 units/L (7-56) 07/15/19 06:30 Alkaline Phosphatase 191 units/L (35-129) H 07/15/19 06:30 Lactate Dehydrogenase 210 units/L (91-180) H 07/14/19 07:16 Total Creatine Kinase 59 units/L (55-170) 07/14/19 07:16 Troponin T 0.188 ng/mL (0.00-0.029) H* 07/12/19 17:04 NT-Pro-B Natriuret Pep > 87360 pg/mL (0-450) H 07/12/19 15:08 Total Protein 7.8 g/dL (6.3-8.2) 07/15/19 06:30 Albumin 3.1 g/dL (3.9-5) L 07/15/19 06:30 Albumin/Globulin Ratio 0.7 % 07/15/19 06:30 Triglycerides 128 mg/dL (2-149) 07/12/19 15:08 Cholesterol 121 mg/dL (50-199) 07/12/19 15:08 LDL Cholesterol Direct 40 mg/dL (50-130) L 07/12/19 15:08 HDL Cholesterol 44 mg/dL (40-59) 07/12/19 15:08 Cholesterol/HDL Ratio 2.75 % 07/12/19 15:08 Urine Color Eugenia (Yellow) 07/14/19 17: Urine Turbidity Slightly-cloudy (Clear) 07/14/19 17:28 Urine pH 5.0 (5.0-7.0) 07/14/19 17:28 Ur Specific [place] 1.014 (1.003-1.030) 07/14/19 17:28 Urine Protein 100 mg/dl mg/dL (Negative) 07/14/19 17:28 Urine Glucose (UA) Neg mg/dL (Negative) 07/14/19 17: Urine Ketones Neg mg/dL (Negative) 07/14/19 17: Urine Blood Sm (Negative) 07/14/19 17:28 Urine Nitrite Neg (Negative) 07/14/19 17:28 Urine Bilirubin Neg (Negative) 07/14/19 17: Urine Urobilinogen < 2.0 mg/dL (<2.0) 07/14/19 17:28 Ur Leukocyte Esterase Neg (Negative) 07/14/19 17:28 Urine WBC (Auto) 31.0 /HPF (0.0-6.0) H 07/14/19 17:28 Urine RBC (Auto) 3.0 /HPF (0.0-6.0) 07/14/19 17:28 U Epithel Cells (Auto) < 1.0 /HPF (0-13.0) 07/14/19 17:28 Urine Bacteria (Auto) 1+ /HPF (Negative) 07/14/19 17:28 Urine Mucus Few /HPF 07/14/19 17:28 Urine Yeast (Budding) Few /HPF 07/14/19 17:28 Urine Eosinophils Rare seen (None Seen) 07/14/19 17:28 Urine Creatinine 106.2 mg/dL (0.1-20.0) H 07/14/19 17:28 Protein/Creatinin Ratio 1.66 07/14/19 16:40 Urine Sodium 67 mmol/L 07/14/19 17:28 Urine Urea Nitrogen 100 07/14/19 17:28 Urine Total Protein 173 mg/dL (5-11.8) H 07/14/19 16:40 Fluid Type Paracentesis 07/14/19 10:45 Fluid Color Bloody 07/14/19 10:45 Fluid Appearance Bloody 07/14/19 10:45 Fluid WBC 120 /mm3 07/14/19 10:45 Fluid RBC 01674 /mm3 07/14/19 10:45 Fluid Seg Neutrophils 33.0 % 07/14/19 10:45 Fluid Lymphocytes 17.0 % 07/14/19 10:45 Fluid Reactive Lymphs 0 % 07/14/19 10:45 Fluid Monocytes 50.0 % 07/14/19 10:45 Fluid Eosinophils 0 % 07/14/19 10:45 Fluid Basophils 0 % 07/14/19 10:45 Complement C3 124 mg/dL (82-185) 07/14/19 11:50 Complement C4 28 mg/dL (15-53) 07/14/19 11:50 Hepatitis A IgM Ab Non-reactive (NonReactive) 07/12/19 17:49 Hep Bs Antigen Non-reactive (Negative) 07/14/19 11:50 Hep B Core IgM Ab Non-reactive (NonReactive) 07/12/19 17:49 Hepatitis C Antibody Non-reactive (NonReactive) 07/14/19 11:50 Schistocytes Smear Rare 07/14/19 11:50 Active Medications - Current Medications Current Medications: Generic Name Dose Route Start Last Admin Trade Name Freq PRN Reason Stop Dose Admin Albuterol 2.5 mg 07/14/19 04:54 07/16/19 13:42 Proventil IH 2.5 mg Q4HRT PRN Administration Shortness Of Breath Apixaban 5 mg 07/16/19 22:00 07/16/19 22:43 Eliquis PO 5 mg Q12HR TERRELL Administration Protocol Aspirin 81 mg 07/13/19 10:00 07/16/19 10:39 Baby Aspirin PO 81 mg QDAY TERRELL Administration Carvedilol 6.25 mg 07/16/19 22:00 07/16/19 22:43 Coreg PO 6.25 mg BID TERRELL Administration Epoetin Barney 10,000 unit 07/14/19 10:13 07/14/19 13:38 Procrit IV 10,000 unit CHEMA PRN Administration DIALYSIS Furosemide 40 mg 07/13/19 06:00 07/17/19 06:38 Lasix IV 40 mg 0600,1800 TERRELL Administration Guaifenesin 200 mg 07/14/19 14:02 07/16/19 10:39 Robitussin PO 200 mg Q4H PRN Administration Cough Haloperidol Lactate 5 mg 07/12/19 21:35 07/12/19 21:09 Haldol IV 5 mg Q1H PRN Administration Unrespon. to mult. doses BZD's Sodium Chloride 100 mls @ 999 mls/hr 07/12/19 17:41 Nacl 0.9% IV CHEMA PRN Hypotension Sodium Chloride 100 mls @ 999 mls/hr 07/16/19 12:11 Nacl 0.9% IV CHEMA PRN Hypotension Levofloxacin 500 mg 07/14/19 11:00 07/16/19 10:39 Levaquin PO 07/20/19 11:01 500 mg Q48H TERRELL Administration Magnesium Oxide 400 mg 07/12/19 22:00 07/16/19 22:43 Mag-Ox PO 400 mg BID TERRELL Administration Nitroglycerin 0.4 mg 07/12/19 16:20 Nitrostat SL .Q5MIN PRN Chest Pain Pantoprazole Sodium 40 mg 07/12/19 22:00 07/16/19 22:43 Protonix PO 40 mg BID TERRELL Administration Temazepam 15 mg 07/14/19 20:32 07/14/19 22:47 Restoril PO 15 mg QHS PRN Administration Sleep Thiamine HCl 100 mg 07/13/19 10:00 07/16/19 10:39 Vitamin B-1 PO 100 mg QDAY TERRELL Administration
--- NOTE | 2019-07-17 08:06 | Progress Note ---
Assessment and Plan Assessment and plan: Patient is a 48-year-old man with a history of being deaf (writes to communicate) HTN, Systolic CHF(EF 20%), anxiety, depression COPD and GERD who presented to [facility] ED with severe SOB. EMS found patient to have a pulse oximetry of 80% on room air, improved to 92% on 2 L of supplemental oxygen. Patient was confused and provided limited history. Patient refused BiPAP. Patient given 40 mg of Lasix IV and and EMS gave 40mg iv lasix prior to arrival. Patient was found to have left lower lobe pneumonia, complicated by acute respiratory failure, severe Uremia, hyponatremia, hyperkalemia, metabolic acidosis. Patient admitted to medical floor for medical stabilization and treatment due to high risk for cardiopulmonary and renal decompensation. Nephrology team consulted in ED for urgent dialysis. Patient initiated on pneumonia protocol with IV antibiotic therapy. Patient treated with calcium gluconate and Kayexalate for hyperkalemia in ED. EKG showed no changes. * pChest x-ray showed bilateral pleural effusion with significant pulmonary congestion. EKG showed no ST elevation. 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, call Brother Cheikh [phone] for assistance Severe ARF, suspected due to ATN, cardiorenal, vasomotor poa: treated with emergent HD, has right groin, daily accessment of HD, d/w nephrology, will need intermediate project manager HD, referral sent out, stop PPI LLL pneumonia: treat with IV abx, unsure if sirs or sepsis poa, see admitting doctor notes: treat with iv levaquin renal dose, AMS, acute metabolic encephalopathy, poa, thought to be due to severe Uremia, restraints used: will check stat CT head Anemia appears AOCD due to renal dysfunction: continue to monitor cbc Thrombocytopenia: repeat cbc Morbid Obesity, bmi 44.1: high school guidance counselor on lifestyle modification Language Barrier/Deafness: communicates via paper New issue 07/16/19, AFlutter with RVR: treat with coreg and Eliquis initiated by Dr. Sadler, New issues 07/16/19 overnight: NSVT full code DVT ppx: scd and started on Eliquis by Cardiology on 07/16/19 Dispo: continue inpatient care still with acute respiratory failure symptoms, new onset aflutter, outpatient HD center referral sent out Sunday07/16/19. History Interval history: Patient was seen and examined. Follow-up on current diagnosis of ARF, CHF, respiratory failure, still with SOB and low energy. Overnight eventful as NSVT. Patient denies any chest pain, nausea/vomiting or severe headaches. Imaging, nursing note, chart, labs and old chart reviewed. Discussed with patient. Hospitalist Physical - Physical exam Narrative exam: Gen: chronic ill appearing, morbid obese bmi 44.1, mild resp failure, a/o x3 HEENT: significant alopecia, NCAT, EOMI, PERRL, OP Clear Neck: supple, no adenopathy, no thyromegaly, +JVD CVS/Heart: RRR, normal S1S2, pulses present bilaterally Chest/Lungs: diminised bs bilateral, Symmetrical chest expansion, good air entry bilaterally GI/Abdomen: soft, NTND, good bowel sounds, no guarding or rebound /Bladder: no suprapubic tenderness, no CVA or paraspinal tenderness Extermity/Skin: ble leg edema, no obvious rash MSK: FROM x 4 Neuro: CN 2-12 grossly intact, no new focal deficits Psych: calm - Constitutional Vitals: Temp Pulse Resp BP Pulse Ox 97.9 F 76 42 H 117/65 88 07/16/19 19:49 07/16/19 22:46 07/16/19 22:46 07/16/19 22:46 07/16/19 22:46 General appearance: Present: no acute distress Results - Labs CBC & Chem 7: 07/15/19 06:30 07/17/19 05:27 Labs: Laboratory Last Values WBC 6.7 K/mm3 (4.5-11.0) 07/15/19 06:30 RBC 3.06 M/mm3 (3.65-5.03) L 07/15/19 06:30 Hgb 9.9 gm/dl (11.8-15.2) L 07/15/19 06:30 Hct 29.7 % (35.5-45.6) L 07/15/19 06:30 MCV 97 fl (84-94) H 07/15/19 06:30 MCH 33 pg (28-32) H 07/15/19 06:30 MCHC 33 % (32-34) 07/15/19 06:30 RDW 19.5 % (13.2-15.2) H 07/15/19 06:30 Plt Count 101 K/mm3 (140-440) L 07/15/19 06:30 Lymph % (Auto) Site Director 07/13/19 04:28 [place] % (Auto) Site Director 07/13/19 04:28 Eos % (Auto) Site Director 07/13/19 04:28 Baso % (Auto) Site Director 07/13/19 04:28 Lymph # Site Director 07/13/19 04:28 [place] # Site Director 07/13/19 04:28 Eos # Site Director 07/13/19 04:28 Baso # Site Director 07/13/19 04:28 Add Manual Diff Complete 07/14/19 07:16 Total Counted 100 07/14/19 07:16 Seg Neutrophils % Site Director 07/13/19 04:28 Seg Neuts % (Manual) 89.0 % (40.0-70.0) H 07/14/19 07:16 Band Neutrophils % 0 % 07/14/19 07:16 Lymphocytes % (Manual) 4.0 % (13.4-35.0) L 07/14/19 07:16 Reactive Lymphs % (Man) 0 % 07/14/19 07:16 Monocytes % (Manual) 7.0 % (0.0-7.3) 07/14/19 07:16 Eosinophils % (Manual) 0 % (0.0-4.3) 07/14/19 07:16 Basophils % (Manual) 0 % (0.0-1.8) 07/14/19 07:16 Metamyelocytes % 0 % 07/14/19 07:16 Myelocytes % 0 % 07/14/19 07:16 Promyelocytes % 0 % 07/14/19 07:16 Blast Cells % 0 % 07/14/19 07:16 Nucleated RBC % Not Reportable 07/14/19 07:16 Seg Neutrophils # Site Director 07/13/19 04:28 Seg Neutrophils # Man 7.7 K/mm3 (1.8-7.7) 07/14/19 07:16 Band Neutrophils # 0.0 K/mm3 07/14/19 07:16 Lymphocytes # (Manual) 0.3 K/mm3 (1.2-5.4) L 07/14/19 07:16 Abs React Lymphs (Man) 0.0 K/mm3 07/14/19 07:16 Monocytes # (Manual) 0.6 K/mm3 (0.0-0.8) 07/14/19 07:16 Eosinophils # (Manual) 0.0 K/mm3 (0.0-0.4) 07/14/19 07:16 Basophils # (Manual) 0.0 K/mm3 (0.0-0.1) 07/14/19 07:16 Metamyelocytes # 0.0 K/mm3 07/14/19 07:16 Myelocytes # 0.0 K/mm3 07/14/19 07:16 Promyelocytes # 0.0 K/mm3 07/14/19 07:16 Blast Cells # 0.0 K/mm3 07/14/19 07:16 WBC Morphology Not Reportable 07/14/19 07:16 Hypersegmented Neuts Not Reportable 07/14/19 07:16 Hyposegmented Neuts Not Reportable 07/14/19 07:16 Hypogranular Neuts Not Reportable 07/14/19 07:16 Smudge Cells Not Reportable 07/14/19 07:16 Toxic Granulation Not Reportable 07/14/19 07:16 Toxic Vacuolation Not Reportable 07/14/19 07:16 Dohle Bodies Not Reportable 07/14/19 07:16 Pelger-Huet Anomaly Not Reportable 07/14/19 07:16 Mack Rods Not Reportable 07/14/19 07:16 Platelet Estimate Consistent w auto 07/14/19 07:16 Clumped Platelets Not Reportable 07/14/19 07:16 Plt Clumps, EDTA Not Reportable 07/14/19 07:16 Large Platelets Not Reportable 07/14/19 07:16 Giant Platelets Not Reportable 07/14/19 07:16 Platelet Satelliting Not Reportable 07/14/19 07:16 Plt Morphology Comment Not Reportable 07/14/19 07:16 RBC Morphology Not Reportable 07/14/19 07:16 Dimorphic RBCs Not Reportable 07/14/19 07:16 Polychromasia Not Reportable 07/14/19 07:16 Hypochromasia Not Reportable 07/14/19 07:16 Poikilocytosis Not Reportable 07/14/19 07:16 Anisocytosis 1+ 07/14/19 07:16 Microcytosis Not Reportable 07/14/19 07:16 Macrocytosis Not Reportable 07/14/19 07:16 Spherocytes Not Reportable 07/14/19 07:16 Pappenheimer Bodies Not Reportable 07/14/19 07:16 Sickle Cells Not Reportable 07/14/19 07:16 Target Cells Few 07/14/19 07:16 Tear Drop Cells Not Reportable 07/14/19 07:16 Ovalocytes Not Reportable 07/14/19 07:16 Helmet Cells Not Reportable 07/14/19 07:16 Jackson-Irene Bodies Not Reportable 07/14/19 07:16 [place] Rings Not Reportable 07/14/19 07:16 Yolis Cells Not Reportable 07/14/19 07:16 Bite Cells Not Reportable 07/14/19 07:16 Crenated Cell Not Reportable 07/14/19 07:16 Elliptocytes Not Reportable 07/14/19 07:16 Acanthocytes (Spur) Not Reportable 07/14/19 07:16 Rouleaux Not Reportable 07/14/19 07:16 Hemoglobin C Crystals Not Reportable 07/14/19 07:16 Schistocytes Not Reportable 07/14/19 07:16 Malaria parasites Not Reportable 07/14/19 07:16 Víctor Bodies Not Reportable 07/14/19 07:16 Hem Pathologist Commnt No 07/14/19 07:16 PT 19.8 Sec. (12.2-14.9) H 07/12/19 15:08 INR 1.65 (0.87-1.13) H 07/12/19 15:08 APTT 47.8 Sec. (24.2-36.6) H 07/12/19 15:08 Sodium 136 mmol/L (137-145) L 07/17/19 05:27 Potassium 5.0 mmol/L (3.6-5.0) D 07/17/19 05:27 Chloride 93.6 mmol/L (98-107) L 07/17/19 05:27 Carbon Dioxide 23 mmol/L (22-30) 07/17/19 05:27 Anion Gap 24 mmol/L 07/17/19 05:27 BUN 43 mg/dL (9-20) H 07/17/19 05:27 Creatinine 4.8 mg/dL (0.8-1.5) H 07/17/19 05:27 Estimated GFR 16 ml/min 07/17/19 05:27 BUN/Creatinine Ratio 9 % 07/17/19 05:27 Glucose 81 mg/dL (75-100) 07/17/19 05:27 POC Glucose 140 (70-105) H 07/15/19 12:42 Calcium 8.9 mg/dL (8.4-10.2) 07/17/19 05:27 Phosphorus 4.20 mg/dL (2.5-4.5) 07/17/19 05:27 Magnesium 1.70 mg/dL (1.7-2.3) 07/16/19 21:34 Iron 15 ug/dL (49-181) L 07/15/19 06:30 TIBC 186 mcg/dL (250-450) L 07/15/19 06:30 Ferritin 428.2 ng/mL (13.0-400.0) H 07/15/19 06:30 Total Bilirubin 1.20 mg/dL (0.1-1.2) 07/15/19 06:30 Direct Bilirubin 0.9 mg/dL (0-0.2) H 07/12/19 15:08 Indirect Bilirubin 0.4 mg/dL 07/12/19 15:08 AST 50 units/L (5-40) H 07/15/19 06:30 ALT 12 units/L (7-56) 07/15/19 06:30 Alkaline Phosphatase 191 units/L (35-129) H 07/15/19 06:30 Lactate Dehydrogenase 210 units/L (91-180) H 07/14/19 07:16 Total Creatine Kinase 59 units/L (55-170) 07/14/19 07:16 Troponin T 0.188 ng/mL (0.00-0.029) H* 07/12/19 17:04 NT-Pro-B Natriuret Pep > 38114 pg/mL (0-450) H 07/12/19 15:08 Total Protein 7.8 g/dL (6.3-8.2) 07/15/19 06:30 Albumin 3.1 g/dL (3.9-5) L 07/15/19 06:30 Albumin/Globulin Ratio 0.7 % 07/15/19 06:30 Triglycerides 128 mg/dL (2-149) 07/12/19 15:08 Cholesterol 121 mg/dL (50-199) 07/12/19 15:08 LDL Cholesterol Direct 40 mg/dL (50-130) L 07/12/19 15:08 HDL Cholesterol 44 mg/dL (40-59) 07/12/19 15:08 Cholesterol/HDL Ratio 2.75 % 07/12/19 15:08 Urine Color Eugenia (Yellow) 07/14/19 17:28 Urine Turbidity Slightly-cloudy (Clear) 07/14/19 17: Urine pH 5.0 (5.0-7.0) 07/14/19 17: Ur Specific [place] 1.014 (1.003-1.030) 07/14/19 17:28 Urine Protein 100 mg/dl mg/dL (Negative) 07/14/19 17: Urine Glucose (UA) Neg mg/dL (Negative) 07/14/19 17: Urine Ketones Neg mg/dL (Negative) 07/14/19 17:28 Urine Blood Sm (Negative) 07/14/19 17:28 Urine Nitrite Neg (Negative) 07/14/19 17: Urine Bilirubin Neg (Negative) 07/14/19 17: Urine Urobilinogen < 2.0 mg/dL (<2.0) 07/14/19 17:28 Ur Leukocyte Esterase Neg (Negative) 07/14/19 17:28 Urine WBC (Auto) 31.0 /HPF (0.0-6.0) H 07/14/19 17:28 Urine RBC (Auto) 3.0 /HPF (0.0-6.0) 07/14/19 17:28 U Epithel Cells (Auto) < 1.0 /HPF (0-13.0) 07/14/19 17: Urine Bacteria (Auto) 1+ /HPF (Negative) 07/14/19 17: Urine Mucus Few /HPF 07/14/19 17:28 Urine Yeast (Budding) Few /HPF 07/14/19 17:28 Urine Eosinophils Rare seen (None Seen) 07/14/19 17:28 Urine Creatinine 106.2 mg/dL (0.1-20.0) H 07/14/19 17:28 Protein/Creatinin Ratio 1.66 07/14/19 16:40 Urine Sodium 67 mmol/L 07/14/19 17:28 Urine Urea Nitrogen 100 07/14/19 17:28 Urine Total Protein 173 mg/dL (5-11.8) H 07/14/19 16:40 Fluid Type Paracentesis 07/14/19 10:45 Fluid Color Bloody 07/14/19 10:45 Fluid Appearance Bloody 07/14/19 10:45 Fluid WBC 120 /mm3 07/14/19 10:45 Fluid RBC 11048 /mm3 07/14/19 10:45 Fluid Seg Neutrophils 33.0 % 07/14/19 10:45 Fluid Lymphocytes 17.0 % 07/14/19 10:45 Fluid Reactive Lymphs 0 % 07/14/19 10:45 Fluid Monocytes 50.0 % 07/14/19 10:45 Fluid Eosinophils 0 % 07/14/19 10:45 Fluid Basophils 0 % 07/14/19 10:45 Complement C3 124 mg/dL (82-185) 07/14/19 11:50 Complement C4 28 mg/dL (15-53) 07/14/19 11:50 Hepatitis A IgM Ab Non-reactive (NonReactive) 07/12/19 17:49 Hep Bs Antigen Non-reactive (Negative) 07/14/19 11:50 Hep B Core IgM Ab Non-reactive (NonReactive) 07/12/19 17:49 Hepatitis C Antibody Non-reactive (NonReactive) 07/14/19 11:50 Schistocytes Smear Rare 07/14/19 11:50 Active Medications - Current Medications Current Medications: Generic Name Dose Route Start Last Admin Trade Name Freq PRN Reason Stop Dose Admin Albuterol 2.5 mg 07/14/19 04:54 07/16/19 13:42 Proventil IH 2.5 mg Q4HRT PRN Administration Shortness Of Breath Apixaban 5 mg 07/16/19 22:00 07/16/19 22:43 Eliquis PO 5 mg Q12HR TERRELL Administration Protocol Aspirin 81 mg 07/13/19 10:00 07/16/19 10:39 Baby Aspirin PO 81 mg QDAY TERRELL Administration Carvedilol 6.25 mg 07/16/19 22:00 07/16/19 22:43 Coreg PO 6.25 mg BID TERRELL Administration Epoetin Barney 10,000 unit 07/14/19 10:13 07/14/19 13:38 Procrit IV 10,000 unit CHEMA PRN Administration DIALYSIS Furosemide 40 mg 07/13/19 06:00 07/17/19 06:38 Lasix IV 40 mg 0600,1800 TERRELL Administration Guaifenesin 200 mg 07/14/19 14:02 07/16/19 10:39 Robitussin PO 200 mg Q4H PRN Administration Cough Haloperidol Lactate 5 mg 07/12/19 21:35 07/12/19 21:09 Haldol IV 5 mg Q1H PRN Administration Unrespon. to mult. doses BZD's Sodium Chloride 100 mls @ 999 mls/hr 07/12/19 17:41 Nacl 0.9% IV CHEMA PRN Hypotension Sodium Chloride 100 mls @ 999 mls/hr 07/16/19 12:11 Nacl 0.9% IV CHEMA PRN Hypotension Levofloxacin 500 mg 07/14/19 11:00 07/16/19 10:39 Levaquin PO 07/20/19 11:01 500 mg Q48H TERRELL Administration Magnesium Oxide 400 mg 07/12/19 22:00 07/16/19 22:43 Mag-Ox PO 400 mg BID TERRELL Administration Nitroglycerin 0.4 mg 07/12/19 16:20 Nitrostat SL .Q5MIN PRN Chest Pain Pantoprazole Sodium 40 mg 07/12/19 22:00 07/16/19 22:43 Protonix PO 40 mg BID TERRELL Administration Temazepam 15 mg 07/14/19 20:32 07/14/19 22:47 Restoril PO 15 mg QHS PRN Administration Sleep Thiamine HCl 100 mg 07/13/19 10:00 07/16/19 10:39 Vitamin B-1 PO 100 mg QDAY TERRELL Administration
[2019-07-17] MEDS: ASPIRIN 81 MG TAB CHEW PO SCH (09:49)
[2019-07-17] MEDS: THIAMINE 100 MG TAB PO SCH (09:49)
[2019-07-17] MEDS: APIXABAN 5 MG TAB PO SCH (09:49)
[2019-07-17] MEDS: MAGNESIUM OXIDE 400 MG TAB PO SCH (09:49)
[2019-07-17] MEDS: carvediloL 6.25 MG TAB PO SCH (09:51)
[2019-07-17 10:31] LABS: Myeloperoxidase Antibody <1.0 AI (<1.0)
--- NOTE | 2019-07-17 11:56 | Cat Scan Report ---
CT head without contrast INDICATION : AMS. TECHNIQUE: Axial imaging performed from the skull apex through the skull base without the use of con trast. All CT scans at this location are performed using CT dose reduction for ALARA by means of aut omated exposure control. COMPARISON: 09/14/2018 FINDINGS: Parenchyma: No acute intracranial hemorrhage. There our further well-defined hypodensities in the po sterior parietal lobes which are symmetric and primarily subcortical. No midline shift identified. Ventricles: Ventricles are normal in size and appear symmetric. Soft tissues: Soft tissues including the orbits appear normal. Bones: No acute osseous abnormality. Sinuses: There is minimal mucosal thickening in the left maxillary and right sphenoid sinuses. Remai bc sinuses and mastoid air cells are clear. IMPRESSION: Symmetric posterior parietal subcortical hypodensities as outlined above. These could be chronic findings such as seen with microangiopathy which are more developed since the comparison exam ; however, another differential consideration would be PRES especially if the patient is hypertensive . Otherwise no acute hemorrhage identified. Signer Name: Nick Pop MD Signed: 07/17/2019 11:52 AM Workstation Name: [id number]
--- NOTE | 2019-07-17 12:05 | Progress Note ---
Assessment and Plan Chronic CHF Transient atrial flutter/SVT reverted to sinus rhythm spontaneously initiated on eliquis for oral anticoagulation Acute renal failure s/p urgent dialysis aldactone and zestril held by nephrology Ascites s/p paracentesis Thrombocytopenia Anemia Hx of nonischemic CMP EF 20/25% by echo 10/2016 no ischemia by MPI at [facility] in 2016 Hypertension Alcohol abuse Noncompliant with medications and outpatient cardiac follow up Recommendations: Dialysis for fluid management. Continue medical therapy for nonischemic cardiomyopathy. Stop carvedilol. We will instead use metoprolol succinate 50 mg twice daily for suppression of SVT and atrial fibrillation. Subjective Date of service: 07/17/19 Principal diagnosis: BRODIE Interval history: Patient is sitting up in the bedside chair and appears short of breath with oxygen off. Events on telemetry noted. Objective Vital Signs Temp Pulse Resp BP Pulse Ox 07/17/19 07:51 98.8 F 90 18 112/51 85 07/17/19 04:34 98.1 F 88 18 81/43 89 07/16/19 22:46 76 42 H 117/65 88 07/16/19 22:43 87 117/65 07/16/19 19:49 97.9 F 18 97/65 07/16/19 17:40 98.5 F 107 H 24 126/77 07/16/19 17:30 107 H 129/58 07/16/19 17:15 113 H 110/57 07/16/19 17:00 107 H 142/59 07/16/19 16:45 116 H 116/70 07/16/19 16:30 115 H 120/65 07/16/19 16:15 110 H 135/69 07/16/19 16:00 114 H 151/82 07/16/19 15:45 125 H 169/77 07/16/19 15:30 118 H 167/98 07/16/19 15:15 121 H 167/70 07/16/19 15:00 122 H 178/89 07/16/19 14:45 118 H 156/89 07/16/19 14:30 139 H 147/95 07/16/19 14:15 155 H 167/99 07/16/19 14:00 127 H 166/86 07/16/19 13:50 98.5 F 116 H 34 H 165/101 07/16/19 12:11 98.2 F 18 196/83 - Physical Examination General: No Apparent Distress HEENT: Positive: PERRL Neck: Positive: trachea midline Neuro: Positive: Grossly Intact - Labs and Meds Comprehensive Metabolic Panel 07/16/19 07/17/19 Range/Units 21:34 05:27 Sodium 134 L 136 L (137-145) mmol/L Potassium 3.9 5.0 D (3.6-5.0) mmol/L Chloride 93.4 L 93.6 L (98-107) mmol/L Carbon Dioxide 22 23 (22-30) mmol/L BUN 40 H 43 H (9-20) mg/dL Creatinine 4.4 H 4.8 H (0.8-1.5) mg/dL Glucose 93 81 (75-100) mg/dL Calcium 8.8 8.9 (8.4-10.2) mg/dL
--- NOTE | 2019-07-17 12:29 | Progress Note ---
Assessment and Plan Acute Kidney Injury possibly prerenal/ATN, cardiorenal syndrome, diuretics, ACEI, AIN from NSAIDs, ? underlying CKD process, no obstruction Hyperkalemia High Anion Gap Metabolic Acidosis Acute respiratory failure LLL PNA Anemia Hypomagnesemia Plan: - no indication for HD today - secondary GN and vasculitis work up ordered, so far negative for ANCA, normalcomplement, negative HCV, HBV, pending anti GBM, HIV and SHANNA but has rare schisto, will repeat and check LDH in AM, if positive will need to consult hematology - Dr Tran notified to exchange vascath to permcath - Epogen with HD - Review of labs from 2016-07/02/19 showed SCr level between 0.8-2.0 - Renal US mentioned moderate ascites, but no hydronephrosis - CXR on 07/12/19 showed congestion - D/C spironolactone and lisinopril for now in setting of BRODIE and hyperkalemia. - Monitor blood pressure closely, adjust BP regimen if needed - On Abx - Renally dose medications - Astudillo Catheter: No Delmar Donovan MD [phone] Subjective Date of service: 07/17/19 Principal diagnosis: BRODIE Interval history: s/p HD yesterday, patient was in the room this AM Objective - Vital Signs Vital signs: Vital Signs - 12hr 07/17/19 07/17/19 04:34 07:51 Temperature 98.1 F 98.8 F Pulse Rate 88 90 Respiratory 18 18 Rate Blood Pressure 81/43 112/51 O2 Sat by Pulse 89 85 Oximetry - Lab 07/15/19 06:30 07/17/19 05:27 Most recent lab results Calcium 8.9 mg/dL (8.4-10.2) 07/17/19 05:27 Phosphorus 4.20 mg/dL (2.5-4.5) 07/17/19 05:27 Magnesium 1.70 mg/dL (1.7-2.3) 07/16/19 21:34 Urine Creatinine 106.2 mg/dL (0.1-20.0) H 07/14/19 17:28 Urine Sodium 67 mmol/L 07/14/19 17:28 Urine Total Protein 173 mg/dL (5-11.8) H 07/14/19 16:40 Medications & Allergies - Medications Allergies/Adverse Reactions: Allergies No Known Allergies Allergy (Verified 07/01/19 11:20) Home Medications: Home Medications Medication Instructions Recorded Confirmed Last Taken Type Magnesium Oxide 400 mg PO BIDAC #60 tablet 12/07/16 07/13/19 1 Day Ago Rx ~09/16/17 Thiamine [Vitamin B-1] 100 mg PO QDAY #30 tablet 12/07/16 07/13/19 2 Days Ago Rx ~09/14/17 100 mg Lisinopril [Zestril] 20 mg PO DAILY #30 tablet 09/18/17 07/13/19 Unknown Rx Pantoprazole [Protonix TAB] 40 mg PO BID #60 tablet 09/18/17 07/13/19 Unknown Rx Aspirin [Aspirin BABY CHEW TAB] 81 mg PO QDAY #30 tab.chew 07/05/19 07/13/19 Unknown Rx Furosemide [Lasix TAB] 40 mg PO BID #60 tablet 07/05/19 07/13/19 Unknown Rx Nitroglycerin [Nitrostat] 0.4 mg SL .Q5MIN PRN #10 tablet 07/05/19 07/13/19 Unkn own Rx Spironolactone [Aldactone] 12.5 mg PO QDAY #30 tablet 07/05/19 07/13/19 Unknown Rx carvediloL [Coreg] 6.25 mg PO BID #60 tablet 07/05/19 07/13/19 Unknown Rx lisinopriL [Zestril TAB] 20 mg PO QDAY #30 tablet 07/05/19 07/13/19 Unknown Rx Active Medications: Generic Name Dose Route Start Last Admin Trade Name Premq PRN Reason Stop Dose Admin Albuterol 2.5 mg 07/14/19 04:54 07/16/19 13:42 Proventil IH 2.5 mg Q4HRT PRN Administration Shortness Of Breath Apixaban 5 mg 07/16/19 22:00 07/17/19 09:49 Eliquis PO 5 mg Q12HR TERRELL Administration Protocol Aspirin 81 mg 07/13/19 10:00 07/17/19 09:49 Baby Aspirin PO 81 mg QDAY TERRELL Administration Epoetin Barney 10,000 unit 07/14/19 10:13 07/14/19 13:38 Procrit IV 10,000 unit CHEMA PRN Administration DIALYSIS Furosemide 40 mg 07/13/19 06:00 07/17/19 06:38 Lasix IV 40 mg 0600,1800 TERRELL Administration Guaifenesin 200 mg 07/14/19 14:02 07/16/19 10:39 Robitussin PO 200 mg Q4H PRN Administration Cough Haloperidol Lactate 5 mg 07/12/19 21:35 07/12/19 21:09 Haldol IV 5 mg Q1H PRN Administration Unrespon. to mult. doses BZD's Sodium Chloride 100 mls @ 999 mls/hr 07/12/19 17:41 Nacl 0.9% IV CHEMA PRN Hypotension Sodium Chloride 100 mls @ 999 mls/hr 07/16/19 12:11 Nacl 0.9% IV CHEMA PRN Hypotension Levofloxacin 500 mg 07/14/19 11:00 07/16/19 10:39 Levaquin PO 07/20/19 11:01 500 mg Q48H TERRELL Administration Magnesium Oxide 400 mg 07/12/19 22:00 07/17/19 09:49 Mag-Ox PO 400 mg BID TERRELL Administration Metoprolol Succinate 50 mg 07/17/19 22:00 Metoprolol Xl PO BID [facility] Nitroglycerin 0.4 mg 07/12/19 16:20 Nitrostat SL .Q5MIN PRN Chest Pain Temazepam 15 mg 07/14/19 20:32 07/14/19 22:47 Restoril PO 15 mg QHS PRN Administration Sleep Thiamine HCl 100 mg 07/13/19 10:00 07/17/19 09:49 Vitamin B-1 PO 100 mg QDAY TERRELL Administration
[2019-07-17] MEDS ORDERED: SODIUM BICARB 8.4% 50 MEQ/50 ML SYRINGE IV ONE (12:31)
[2019-07-17] MEDS ORDERED: EPINEPHrine 30 MG/30 ML INJ IV ONE (12:31)
--- NOTE | 2019-07-17 12:55 | Cat Scan Report ---
CT ABDOMEN AND PELVIS WITHOUT CONTRAST HISTORY: abd distension. COMPARISON: None. TECHNIQUE: CT images of the abdomen and pelvis were obtained without administration of intravenous co ntrast. All CT scans at this location are performed using CT dose reduction for ALARA by means of au tomated exposure control. FINDINGS: Lungs/bones: There is patchy multifocal pneumonia in the lung bases. Heart size is mildly enlarged. Degenerative changes are present in the spine and pelvis with no acute osseous abnormality. Abdomen/pelvis: There is mild anasarca and generalized haziness throughout the entire mesentery as w ell as trace ascites all suggesting third spacing. The liver, gallbladder, spleen, pancreas, and adrenals appear unremarkable. There is punctate nonobst ructive nephrolithiasis in the kidneys. A right-sided femoral venous line is in place with tip terminating near the level of L2. The bladder is collapsed. Prostate is unremarkable. Small volume ascites spills into the pelvis. No acute colonic abnormality identified. Mild generalized bowel distention is seen involving the small bowel and the colon with no transition point or obvious source of obstruction. IMPRESSION: 1. Dense multifocal pneumonia. 2. Findings suggestive of third spacing as above. COMMUNICATION: Time of Communication (BLOOD BANK CALENDAR CONTROL CLERK/CDT): 11:49 AM Licensed Practitioner Receiving Report: Dr. Mauricio Signer Name: Nick Pop MD Signed: 07/17/2019 12:51 PM Workstation Name: [id number]
[2019-07-17] MEDS ORDERED: NORepinephrine/NS 4 MG-250 ML 4 MG/250 ML BAG IV ONE ×2 (13:10→20:00)
--- NOTE | 2019-07-17 13:20 | XRay Report ---
CHEST 1 VIEW 07/17/2019 12:50 PM INDICATION / CLINICAL INFORMATION: Ett placement. COMPARISON: One view of the chest from 07/14/2019. FINDINGS: SUPPORT DEVICES: No ET tube is seen. HEART / MEDIASTINUM: Stable. LUNGS / PLEURA: Lung volumes are reduced with bilateral pulmonary opacities have slightly improved al jj the right lung base and worsened along the right upper lobe and otherwise appears similar to the prior study. No significant pleural effusion. No pneumothorax. ADDITIONAL FINDINGS: No significant additional findings. IMPRESSION: 1. No ET tube is identified. 2. Interval evolution of pulmonary opacities as above. Signer Name: Lazaro Dominguez MD Signed: 07/17/2019 1:15 PM Workstation Name: [id number]
[2019-07-17] MEDS: NORepinephrine 8 MG in SODIUM CHLORIDE 0.9% 250ML 242 ML IV SCH ×2 (13:55→18:24)
[2019-07-17 14:07] LABS: ABG Base Excess -2.9 mmol/L (-2.0-3.0); ABG HCO3 24.3 mmol/L (20.0-26.0); ABG Methemoglobin 0.5 % (0.0-1.5); ABG Oxygen Saturation 99.1 % (95.0-99.0); ABG PCO2 55.1 mm Hg; ABG PH 7.262 pH Units (7.350-7.450); ABG PO2 195.5 mm Hg (80.0-90.0)
--- NOTE | 2019-07-17 14:50 | Event Note ---
Date: 07/17/19 TIFFANY RODRIGUES called at CT scan room. Patient took his O2 off, then he became hypoxic and suffered a Cardiac PEA arrest. Patient did have the cT head and was transferred to other bed when arrest happened. After appropriated ACLS, we were able to re-establish a pulse and bp was steady. He was intubated by ER physician after failed RT attempt. His abdomen became distended and he had bright red blood in OP before prior Intubation attempt per RT. So, after ROSC, I ordered stat CT ab/pelvis. CCT 32 minutes
[2019-07-17] MEDS ORDERED: VASOPRESSIN 20 UNIT in SODIUM CHLORIDE 0.9% 100 ML IV SCH (15:00)
--- NOTE | 2019-07-17 15:26 | Event Note ---
Date: 07/17/[address] scanner for Code Blue. It was reported that pt became unresponsive after pulling off his O2. Initial rhythm of asystole. ACLS initiated. After preoxygenation, RT attempted intubation but was unsuccessful, unable to visualize cords. I then has successful placement of 7.5 ET tube with positive color change, condensation in tube and breath sounds. Pt received a total of 3 doses of epinephrine and had return of pulses. Hospitalist, Dr Mauricio, at bedside. Pt was then transported to ICU under his care.
--- NOTE | 2019-07-17 16:43 | Event Note ---
Date: 07/17/19 CODE BLUE #2 Patient had another Cardiac arrest in ICU. PEA again. ACLS successfully done.pulse restored. I have tried to call Brother Cheikh, no answer. Now shocky, started IV levophed drip, which was maxed out now started iv Vasopressin drip. started iv vancomycin and iv cefepime, consulted ID [id number] 35 minutes
[2019-07-17] MEDS ORDERED: VANCOMYCIN PHARMACY TO DOSE IV SCH (17:00)
[2019-07-17] MEDS ORDERED: CEFEPIME/NS 1 GM/100 ML 1 GM/100 ML BAG IV SCH (17:00)
[2019-07-17] MEDS: metroNIDAZOLE/NS 500 MG/100 ML 500 MG/100 ML BAG IV SCH ×2 (17:34→21:56)
[2019-07-17] MEDS: CEFEPIME/NS 1 GM/100 ML 1 GM/100 ML BAG IV SCH (17:34)
--- NOTE | 2019-07-17 17:44 | XRay Report ---
CHEST 1 VIEW 5:02 PM INDICATION / CLINICAL INFORMATION: ETT placement. COMPARISON: Earlier today at 12:48 PM. FINDINGS: SUPPORT DEVICES: There is an endotracheal tube with the tip 12 cm above the jc near the T1 level. HEART / MEDIASTINUM: Unchanged. LUNGS / PLEURA: Patchy parenchymal disease throughout both lungs is stable. No pneumothorax. ADDITIONAL FINDINGS: Mild gaseous distention of the stomach has not changed. IMPRESSION: The tip of the endotracheal tube is 12 cm above the jc. The tube could be advanced ap proximately 6 cm. Signer Name: Levi Alaniz MD Signed: 07/17/2019 5:40 PM Workstation Name: [id number]
[2019-07-17] MEDS ORDERED: VANCOMYCIN 2,000 MG in SODIUM CHLORIDE 0.9% 500 ML 500 ML IV ONE (19:00)
--- NOTE | 2019-07-17 19:22 | XRay Report ---
Chest single view INDICATION: Dyspnea IMPRESSION: The endotracheal tube projects over the upper trachea near the thoracic inlet and should be advanced. Severe bilateral airspace disease present. Signer Name: Cory Chen MD Signed: 07/17/2019 7:18 PM Workstation Name: [id number]
[2019-07-17] MEDS ORDERED: LORazepam 2 MG/ML VIAL ONE (19:43)
[2019-07-17] MEDS ORDERED: LORazepam 2 MG/ML VIAL IV STA (19:46)
[2019-07-17] MEDS ORDERED: LORazepam 2 MG/ML VIAL IV ONE (19:55)
[2019-07-17] MEDS ORDERED: METOPROLOL SUCCINATE XL 50 MG TAB PO SCH (22:00)
[2019-07-18 04:54] LABS: ABG Base Excess -0.8 mmol/L (-2.0-3.0); ABG HCO3 22.7 mmol/L (20.0-26.0); ABG Methemoglobin 0.6 % (0.0-1.5); ABG Oxygen Saturation 99.4 % (95.0-99.0); ABG PCO2 33.6 mm Hg; ABG PH 7.448 pH Units (7.350-7.450); ABG PO2 238.9 mm Hg (80.0-90.0)
[2019-07-18] MEDS: FUROSEMIDE 40 MG/4 ML INJ IV SCH (05:36)
[2019-07-18] MEDS: metroNIDAZOLE/NS 500 MG/100 ML 500 MG/100 ML BAG IV SCH ×3 (05:36→22:21)
[2019-07-18] MEDS: NORepinephrine 8 MG in SODIUM CHLORIDE 0.9% 250ML 242 ML IV SCH (05:36)
[2019-07-18 05:49] LABS: Hematocrit 24.9 % (35.5-45.6); Hemoglobin 8.2 gm/dl (11.8-15.2); Mean Corpuscular HGB Conc 33 % (32-34); Mean Corpuscular Volume 95 fl (84-94); Red Blood Count 2.64 M/mm3 (3.65-5.03); Red Cell Distribution Width 19.7 % (13.2-15.2)
[2019-07-18 05:53] LABS: Platelet Count 94 K/mm3 (140-440)
[2019-07-18 06:20] LABS: Calcium 8.4 mg/dL (8.4-10.2)
[2019-07-18 06:22] LABS: Albumin 2.5 g/dL (3.9-5); Bilirubin,Direct 0.7 mg/dL (0-0.2)
[2019-07-18 07:14] LABS: Smear for Schistocytes Rare
--- NOTE | 2019-07-18 10:32 | XRay Report ---
XR abdomen 1V ap / INDICATION: NGT placement. COMPARISON: CXR from yesterday. FINDINGS: Portable, single, frontal abdominal radiograph limited due to patient positioning/tilt, tho ugh demonstrates a new esophagogastric tube tip overlying L1-L2 disc level on the right, likely along the distal stomach. A right groin catheter tip also projects to the right of L2-L3 disc level. Nonob structive bowel gas pattern. Normal imaged bones. EKG leads. IMPRESSION: Findings, as above. Thank you for the opportunity to participate in this patient's care. Signer Name: Mejia Pacheco Signed: 07/18/2019 10:27 AM Workstation Name: [id number]
--- NOTE | 2019-07-18 11:05 | Consultation ---
History of Present Illness Consult date: 07/18/19 Requesting physician: HIREN RAZO Reason for consult: other (In hospital cardiac arrest) History of present illness: 48 y/o male, admitted to the hospital several days prior for LAURA who had cardiac arrest in the CT scanner yesterday afternoon. Resuscitated and then transferred up to the unit where he had another cardiac arrest with ROSC. Currently patient is unresponsive, on no sedation. pressors have been weaned off. Per nursing, had some "posturing" so was given ativan last night. His aunt is at the [facility]. While there we placed on on PSV with a BACK RATE of 12 and he was breathing over. Past History Past Medical History: COPD, heart failure, hypertension, other (See HPI) Past Surgical History: No surgical history, Other (Reviewed) Social history: single. denies: smoking, alcohol abuse, prescription drug abuse Family history: diabetes, hypertension Medications and Allergies Allergies Allergy/AdvReac Type Severity Reaction Status Date / Time No Known Allergies Allergy Verified 07/01/19 11:20 Home Medications Medication Instructions Recorded Confirmed Last Taken Type Magnesium Oxide 400 mg PO BIDAC #60 tablet 12/07/16 07/13/19 1 Day Ago Rx ~09/16/17 Thiamine [Vitamin B-1] 100 mg PO QDAY #30 tablet 12/07/16 07/13/19 2 Days Ago Rx ~09/14/17 100 mg Lisinopril [Zestril] 20 mg PO DAILY #30 tablet 09/18/17 07/13/19 Unknown Rx Pantoprazole [Protonix TAB] 40 mg PO BID #60 tablet 09/18/17 07/13/19 Unknown Rx Aspirin [Aspirin BABY CHEW TAB] 81 mg PO QDAY #30 tab.chew 07/05/19 07/13/19 Unknown Rx Furosemide [Lasix TAB] 40 mg PO BID #60 tablet 07/05/19 07/13/19 Unknown Rx Nitroglycerin [Nitrostat] 0.4 mg SL .Q5MIN PRN #10 tablet 07/05/19 07/13/19 Unknown Rx Spironolactone [Aldactone] 12.5 mg PO QDAY #30 tablet 07/05/19 07/13/19 Unknown Rx carvediloL [Coreg] 6.25 mg PO BID #60 tablet 07/05/19 07/13/19 Unknown Rx lisinopriL [Zestril TAB] 20 mg PO QDAY #30 tablet 07/05/19 07/13/19 Unknown Rx Active Meds: Active Medications Albuterol (Proventil) 2.5 mg IH Q4HRT PRN PRN Reason: Shortness Of Breath Last Admin: 07/16/19 13:42 Dose: 2.5 mg Documented by: Epoetin Barney (Procrit) 10,000 unit IV CHEMA PRN PRN Reason: DIALYSIS Last Admin: 07/14/19 13:38 Dose: 10,000 unit Documented by: Haloperidol Lactate (Haldol) 5 mg IV Q1H PRN PRN Reason: Unrespon. to mult. doses BZD's Last Admin: 07/12/19 21:09 Dose: 5 mg Documented by: Sodium Chloride (Nacl 0.9%) 100 mls @ 999 mls/hr IV CHEMA PRN PRN Reason: Hypotension Norepinephrine 8 mg/ Sodium (Chloride) 250 mls @ 3.75 mls/hr IV TITR TERRELL; Protocol Last Titration: 07/18/19 10:04 Dose: 0 mcg/min, 0 mls/hr Documented by: Vasopressin 20 unit/ Sodium (Chloride) 101 mls @ 9.09 mls/hr IV TITR TERRELL; Protocol Thiamine HCl 100 mg/ Sodium (Chloride) 51 mls @ 100 mls/hr IV QDAY TERRELL Metronidazole (Flagyl 500 Mg/100 Ml) 500 mg in 100 mls @ 100 mls/hr IV Q8HR S ; Protocol Last Admin: 07/18/19 05:36 Dose: 100 mls/hr Documented by: Cefepime HCl (Cefepime/Ns 1 Gm/100 Ml) 1 gm in 100 mls @ 200 mls/hr IV Q24H TERRELL Last Admin: 07/17/19 17:34 Dose: 200 mls/hr Documented by: Lansoprazole (Prevacid Solutab) 30 mg FEEDTUBE QDAY TERRELL Review of Systems All systems: negative Physical Examination Vital signs: Vital Signs Pulse 125 H 07/12/19 14:35 General appearance: no acute distress, comatose Eyes: non-icteric ENT: other (orally intubated not on sedation) Neck: supple Effort: normal Ascultation: Bilateral: clear Gastrointestinal: normoactive bowel sounds, soft, non-tender Results - Laboratory Findings CBC and BMP: 07/18/19 05:40 07/18/19 05:40 ABG ABG pH 7.448 pH Units (7.350-7.450) 07/18/19 04:20 ABG pCO2 33.6 mm Hg 07/18/19 04:20 ABG pO2 238.9 mm Hg (80.0-90.0) H 07/18/19 04:20 ABG O2 Saturation 99.4 % (95.0-99.0) H 07/18/19 04:20 PT/INR, D-dimer PT 19.8 Sec. (12.2-14.9) H 07/12/19 15:08 INR 1.65 (0.87-1.13) H 07/12/19 15:08 Abnormal lab findings: Abnormal Labs 07/12/19 07/12/19 07/12/19 14:46 15:08 15:08 WBC 14.7 H RBC 2.97 L Hgb 9.7 L Hct 29.0 L MCV 98 H MCH 33 H RDW 19.8 H Plt Count 124 L Seg Neuts % (Manual) 91.0 H Lymphocytes % (Manual) 2.0 L Nucleated RBC % 1.0 H Seg Neutrophils # Man 13.4 H Lymphocytes # (Manual) 0.3 L PT 19.8 H INR 1.65 H APTT 47.8 H ABG pH ABG pO2 ABG O2 Saturation ABG Base Excess ABG Hemoglobin Sodium Potassium Chloride Carbon Dioxide BUN Creatinine Glucose POC Glucose 110 H Calcium Phosphorus Magnesium Iron TIBC Ferritin Total Bilirubin Direct Bilirubin AST Alkaline Phosphatase Lactate Dehydrogenase Troponin T NT-Pro-B Natriuret Pep Total Protein Albumin LDL Cholesterol Direct Urine WBC (Auto) Urine Creatinine Urine Total Protein 07/12/19 07/12/19 07/12/19 15:08 15:08 15:08 WBC RBC Hgb Hct MCV MCH RDW Plt Count Seg Neuts % (Manual) Lymphocytes % (Manual) Nucleated RBC % Seg Neutrophils # Man Lymphocytes # (Manual) PT INR APTT ABG pH ABG pO2 ABG O2 Saturation ABG Base Excess ABG Hemoglobin Sodium 125 L Potassium 5.5 H Chloride 84.9 L Carbon Dioxide 13 L BUN 70 H Creatinine 8.8 H Glucose POC Glucose Calcium 8.0 L Phosphorus Magnesium 1.30 L Iron TIBC Ferritin Total Bilirubin 1.30 H Direct Bilirubin 0.9 H AST 53 H Alkaline Phosphatase 208 H Lactate Dehydrogenase Troponin T 0.192 H* NT-Pro-B Natriuret Pep > 04623 H Total Protein Albumin 3.3 L LDL Cholesterol Direct 40 L Urine WBC (Auto) Urine Creatinine Urine Total Protein 07/12/19 07/13/19 07/13/19 17:04 01:32 01:32 WBC RBC Hgb Hct MCV MCH RDW Plt Count Seg Neuts % (Manual) Lymphocytes % (Manual) Nucleated RBC % Seg Neutrophils # Man Lymphocytes # (Manual) PT INR APTT ABG pH ABG pO2 ABG O2 Saturation ABG Base Excess ABG Hemoglobin Sodium 133 L D Potassium 5.3 H Chloride 90.8 L Carbon Dioxide 20 L D BUN 48 H Creatinine 6.2 H Glucose 105 H POC Glucose Calcium 8.2 L Phosphorus 4.90 H Magnesium 1.50 L Iron TIBC Ferritin Total Bilirubin Direct Bilirubin AST Alkaline Phosphatase Lactate Dehydrogenase Troponin T 0.188 H* NT-Pro-B Natriuret Pep Total Protein Albumin LDL Cholesterol Direct Urine WBC (Auto) Urine Creatinine Urine Total Protein 07/13/19 07/13/19 07/13/19 04:28 04:28 16:16 WBC 15.9 H RBC 3.10 L Hgb 10.2 L Hct 30.6 L MCV 99 H MCH 33 H RDW 19.4 H Plt Count 135 L Seg Neuts % (Manual) Lymphocytes % (Manual) 4.0 L Nucleated RBC % Seg Neutrophils # Man 9.9 H Lymphocytes # (Manual) 0.6 L PT INR APTT ABG pH ABG pO2 ABG O2 Saturation ABG Base Excess ABG Hemoglobin Sodium 132 L 134 L Potassium 5.1 H Chloride 90.3 L 92.2 L Carbon Dioxide 17 L 20 L BUN 47 H 55 H Creatinine 6.0 H 6.5 H Glucose 124 H POC Glucose Calcium 8.2 L 7.9 L Phosphorus Magnesium Iron TIBC Ferritin Total Bilirubin Direct Bilirubin AST Alkaline Phosphatase Lactate Dehydrogenase Troponin T NT-Pro-B Natriuret Pep Total Protein Albumin LDL Cholesterol Direct Urine WBC (Auto) Urine Creatinine Urine Total Protein 07/14/19 07/14/19 07/14/19 07:16 07:16 07:16 WBC RBC 2.65 L Hgb 8.6 L Hct 25.4 L MCV 96 H MCH 33 H RDW 19.7 H Plt Count 114 L Seg Neuts % (Manual) 89.0 H Lymphocytes % (Manual) 4.0 L Nucleated RBC % Seg Neutrophils # Man Lymphocytes # (Manual) 0.3 L PT INR APTT ABG pH ABG pO2 ABG O2 Saturation ABG Base Excess ABG Hemoglobin Sodium 133 L Potassium Chloride 93.0 L Carbon Dioxide 18 L BUN 61 H Creatinine 7.3 H Glucose 113 H POC Glucose Calcium 7.7 L Phosphorus Magnesium Iron TIBC Ferritin Total Bilirubin Direct Bilirubin AST Alkaline Phosphatase Lactate Dehydrogenase 210 H Troponin T NT-Pro-B Natriuret Pep Total Protein Albumin LDL Cholesterol Direct Urine WBC (Auto) Urine Creatinine Urine Total Protein 07/14/19 07/14/19 07/14/19 16:40 17:28 17:28 WBC RBC Hgb Hct MCV MCH RDW Plt Count Seg Neuts % (Manual) Lymphocytes % (Manual) Nucleated RBC % Seg Neutrophils # Man Lymphocytes # (Manual) PT INR APTT ABG pH ABG pO2 ABG O2 Saturation ABG Base Excess ABG Hemoglobin Sodium Potassium Chloride Carbon Dioxide BUN Creatinine Glucose POC Glucose Calcium Phosphorus Magnesium Iron TIBC Ferritin Total Bilirubin Direct Bilirubin AST Alkaline Phosphatase Lactate Dehydrogenase Troponin T NT-Pro-B Natriuret Pep Total Protein Albumin LDL Cholesterol Direct Urine WBC (Auto) 31.0 H Urine Creatinine 104.2 H 106.2 H Urine Total Protein 173 H 07/14/19 07/15/19 07/15/19 20:43 06:30 06:30 WBC RBC 3.06 L Hgb 9.9 L Hct 29.7 L MCV 97 H MCH 33 H RDW 19.5 H Plt Count 101 L Seg Neuts % (Manual) Lymphocytes % (Manual) Nucleated RBC % Seg Neutrophils # Man Lymphocytes # (Manual) PT INR APTT ABG pH ABG pO2 ABG O2 Saturation ABG Base Excess ABG Hemoglobin Sodium Potassium Chloride 95.2 L Carbon Dioxide BUN 42 H Creatinine 4.9 H Glucose POC Glucose 120 H Calcium Phosphorus Magnesium Iron TIBC Ferritin Total Bilirubin Direct Bilirubin AST 50 H Alkaline Phosphatase 191 H Lactate Dehydrogenase Troponin T NT-Pro-B Natriuret Pep Total Protein Albumin 3.1 L LDL Cholesterol Direct Urine WBC (Auto) Urine Creatinine Urine Total Protein 07/15/19 07/15/19 07/15/19 06:30 06:30 12:42 WBC RBC Hgb Hct MCV MCH RDW Plt Count Seg Neuts % (Manual) Lymphocytes % (Manual) Nucleated RBC % Seg Neutrophils # Man Lymphocytes # (Manual) PT INR APTT ABG pH ABG pO2 ABG O2 Saturation ABG Base Excess ABG Hemoglobin Sodium Potassium Chloride Carbon Dioxide BUN Creatinine Glucose POC Glucose 140 H Calcium Phosphorus Magnesium Iron 15 L TIBC 186 L Ferritin 428.2 H Total Bilirubin Direct Bilirubin AST Alkaline Phosphatase Lactate Dehydrogenase Troponin T NT-Pro-B Natriuret Pep Total Protein Albumin LDL Cholesterol Direct Urine WBC (Auto) Urine Creatinine Urine Total Protein 07/16/19 07/16/19 07/17/19 06:19 21:34 05:27 WBC RBC Hgb Hct MCV MCH RDW Plt Count Seg Neuts % (Manual) Lymphocytes % (Manual) Nucleated RBC % Seg Neutrophils # Man Lymphocytes # (Manual) PT INR APTT ABG pH ABG pO2 ABG O2 Saturation ABG Base Excess ABG Hemoglobin Sodium 134 L 134 L 136 L Potassium Chloride 92.9 L 93.4 L 93.6 L Carbon Dioxide 20 L BUN 55 H 40 H 43 H Creatinine 5.6 H 4.4 H 4.8 H Glucose POC Glucose Calcium Phosphorus Magnesium Iron TIBC Ferritin Total Bilirubin Direct Bilirubin AST Alkaline Phosphatase Lactate Dehydrogenase Troponin T NT-Pro-B Natriuret Pep Total Protein Albumin LDL Cholesterol Direct Urine WBC (Auto) Urine Creatinine Urine Total Protein 07/17/19 07/17/19 07/17/19 12:10 12:52 13:50 WBC RBC Hgb Hct MCV MCH RDW Plt Count Seg Neuts % (Manual) Lymphocytes % (Manual) Nucleated RBC % Seg Neutrophils # Man Lymphocytes # (Manual) PT INR APTT ABG pH 7.262 L ABG pO2 195.5 H ABG O2 Saturation 99.1 H ABG Base Excess -2.9 L ABG Hemoglobin 8.6 L Sodium Potassium Chloride Carbon Dioxide BUN Creatinine Glucose POC Glucose 122 H 122 H Calcium Phosphorus Magnesium Iron TIBC Ferritin Total Bilirubin Direct Bilirubin AST Alkaline Phosphatase Lactate Dehydrogenase Troponin T NT-Pro-B Natriuret Pep Total Protein Albumin LDL Cholesterol Direct Urine WBC (Auto) Urine Creatinine Urine Total Protein 07/18/19 07/18/19 07/18/19 04:20 05:40 05:40 WBC 22.7 H RBC 2.64 L Hgb 8.2 L Hct 24.9 L MCV 95 H MCH RDW 19.7 H Plt Count 94 L Seg Neuts % (Manual) Lymphocytes % (Manual) Nucleated RBC % Seg Neutrophils # Man Lymphocytes # (Manual) PT INR APTT ABG pH ABG pO2 238.9 H ABG O2 Saturation 99.4 H ABG Base Excess ABG Hemoglobin 10.9 L Sodium Potassium Chloride 94.5 L Carbon Dioxide BUN 61 H Creatinine 5.6 H Glucose 111 H POC Glucose Calcium Phosphorus 4.70 H Magnesium Iron TIBC Ferritin Total Bilirubin Direct Bilirubin AST Alkaline Phosphatase Lactate Dehydrogenase 294 H Troponin T NT-Pro-B Natriuret Pep Total Protein Albumin LDL Cholesterol Direct Urine WBC (Auto) Urine Creatinine Urine Total Protein 07/18/19 05:40 WBC RBC Hgb Hct MCV MCH RDW Plt Count Seg Neuts % (Manual) Lymphocytes % (Manual) Nucleated RBC % Seg Neutrophils # Man Lymphocytes # (Manual) PT INR APTT ABG pH ABG pO2 ABG O2 Saturation ABG Base Excess ABG Hemoglobin Sodium Potassium Chloride Carbon Dioxide BUN Creatinine Glucose POC Glucose Calcium Phosphorus Magnesium Iron TIBC Ferritin Total Bilirubin Direct Bilirubin 0.7 H AST 94 H Alkaline Phosphatase 159 H Lactate Dehydrogenase Troponin T NT-Pro-B Natriuret Pep Total Protein 5.6 L D Albumin 2.5 L LDL Cholesterol Direct Urine WBC (Auto) Urine Creatinine Urine Total Protein - Diagnostic Findings Chest x-ray: image reviewed Assessment and Plan 48 y/o male with inhouse cardiac arrest x2 1. Repeat CXR to confirm ET tube placement. last film was yesterday 2. No sedation 3. Placed on PSV and asked for ABG in 30 minutes 4. Follow up renal recs 5. Will repeat head CT, concern for anoxic brain injury Overall prognosis is guarded to poor. CCT 31 minutes.
[2019-07-18] MEDS: THIAMINE 100 MG in SODIUM CHLORIDE 0.9% 50 ML IV SCH (11:25)
[2019-07-18] MEDS: LANSOPRAZOLE 30 MG SOLUTAB FEEDTUBE SCH (11:25)
[2019-07-18 11:28] LABS: ABG Base Excess -1.1 mmol/L (-2.0-3.0); ABG HCO3 23.4 mmol/L (20.0-26.0); ABG Methemoglobin 0.6 % (0.0-1.5); ABG Oxygen Saturation 96.3 % (95.0-99.0); ABG PCO2 38.6 mm Hg; ABG PH 7.401 pH Units (7.350-7.450); ABG PO2 81.2 mm Hg (80.0-90.0)
--- NOTE | 2019-07-18 11:47 | Progress Note ---
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 Subjective Date of service: 07/18/19 Principal diagnosis: BRODIE Interval history: Patient is currently in the CCU, intubated, unresponsive on the vent and on pressors for support following respiratory arrest. Objective Vital Signs Temp Pulse Pulse Resp BP Pulse Ox 07/18/19 11:15 75 25 H 125/67 100 07/18/19 11:00 100 H 27 H 119/66 100 07/18/19 10:45 71 24 114/63 99 07/18/19 10:30 65 30 H 109/59 100 07/18/19 10:15 68 30 H 108/65 100 07/18/19 10:01 69 20 127/68 100 07/18/19 09:45 67 30 H 130/70 100 07/18/19 09:31 70 30 H 144/76 100 07/18/19 09:15 66 30 H 107/59 100 07/18/19 09:00 65 30 H 104/56 100 07/18/19 08:45 66 30 H 94/52 100 07/18/19 08:36 68 84/43 100 07/18/19 08:30 66 30 H 84/43 100 07/18/19 08:20 21 100 07/18/19 08:15 69 30 H 90/46 100 07/18/19 08:00 99.5 F 70 30 H 122/62 100 07/18/19 07:45 67 19 95/54 100 07/18/19 07:30 71 30 H 116/66 100 07/18/19 07:15 73 30 H 122/66 100 07/18/19 07:00 70 30 H 112/65 100 07/18/19 06:45 71 30 H 105/62 100 07/18/19 06:30 69 30 H 110/64 100 07/18/19 06:15 70 23 120/66 99 07/18/19 06:01 69 30 H 103/64 100 07/18/19 05:45 71 30 H 100/67 100 07/18/19 05:30 71 30 H 108/63 100 07/18/19 05:15 71 30 H 113/67 100 07/18/19 05:13 71 30 H 97 07/18/19 05:00 71 30 H 109/62 100 07/18/19 04:45 66 30 H 127/79 100 07/18/19 04:30 73 30 H 127/79 100 07/18/19 04:15 69 26 H 115/73 100 07/18/19 04:11 68 111/63 100 07/18/19 04:00 99.0 F 67 30 H 111/63 100 07/18/19 03:45 69 30 H 123/70 100 07/18/19 03:30 66 30 H 118/60 100 07/18/19 03:15 69 30 H 131/73 100 07/18/19 03:00 69 30 H 104/60 07/18/19 02:45 68 30 H 90/48 07/18/19 02:30 69 30 H 84/46 100 07/18/19 02:15 70 30 H 103/56 07/18/19 02:00 73 23 96/58 07/18/19 01:45 73 29 H 103/64 07/18/19 01:30 72 30 H 92/48 07/18/19 01:15 72 30 H 91/50 100 07/18/19 01:00 74 30 H 103/59 100 07/18/19 00:45 71 30 H 105/61 100 07/18/19 00:31 73 30 H 131/77 07/18/19 00:27 71 30 H 97 07/18/19 00:15 66 30 H 107/59 07/18/19 00:00 99.0 F 67 30 H 104/57 100 07/17/19 23:45 69 30 H 104/58 100 07/17/19 23:30 70 30 H 103/57 100 07/17/19 23:19 65 99/58 100 07/17/19 23:15 70 30 H 99/58 100 07/17/19 23:00 67 30 H 89/53 100 07/17/19 22:45 70 30 H 83/43 100 07/17/19 22:30 72 30 H 88/48 07/17/19 22:15 70 30 H 111/65 100 07/17/19 22:05 70 30 H 115/69 100 07/17/19 22:00 71 30 H 115/69 100 07/17/19 21:55 67 30 H 108/68 100 07/17/19 21:51 69 30 H 108/68 100 07/17/19 21:45 71 30 H 108/68 07/17/19 21:40 68 30 H 111/65 100 07/17/19 21:35 67 30 H 114/64 100 07/17/19 21:30 70 30 H 112/68 100 07/17/19 21:25 93 H 30 H 114/67 100 07/17/19 21:20 69 30 H 112/65 100 07/17/19 21:15 73 30 H 124/76 100 07/17/19 21:10 75 30 H 126/79 100 07/17/19 21:05 71 30 H 114/70 07/17/19 21:03 68 112/67 07/17/19 21:00 68 30 H 112/67 07/17/19 20:55 71 30 H 110/66 100 07/17/19 20:50 71 30 H 113/66 07/17/19 20:45 69 30 H 115/65 100 07/17/19 20:40 71 30 H 116/67 07/17/19 20:35 71 30 H 111/64 100 07/17/19 20:30 72 30 H 113/65 100 07/17/19 20:25 72 30 H 110/64 100 07/17/19 20:20 72 30 H 109/61 100 07/17/19 20:15 73 30 H 101/57 100 07/17/19 20:10 73 30 H 97/54 100 07/17/19 20:05 72 30 H 95/50 100 07/17/19 20:00 99.3 F 79 70 30 H 111/65 97 07/17/19 19:55 86 29 H 156/90 100 07/17/19 19:51 77 14 108/72 100 07/17/19 19:45 73 29 H 123/71 07/17/19 19:41 71 30 H 112/65 100 07/17/19 19:35 72 30 H 112/65 100 07/17/19 19:30 73 30 H 112/65 100 07/17/19 19:25 73 30 H 108/72 100 07/17/19 19:20 75 29 H 108/72 100 07/17/19 19:15 75 30 H 108/72 99 07/17/19 19:11 79 29 H 104/73 99 07/17/19 19:05 77 30 H 104/73 99 07/17/19 19:01 77 30 H 104/73 100 07/17/19 18:55 81 30 H 114/75 99 07/17/19 18:51 78 30 H 114/75 99 07/17/19 18:45 80 18 114/75 99 07/17/19 18:41 82 30 H 100/71 99 07/17/19 18:35 78 22 100/71 99 07/17/19 18:31 79 25 H 100/71 99 07/17/19 18:25 79 27 H 110/62 99 07/17/19 18:21 80 30 H 110/62 99 07/17/19 18:15 78 30 H 110/62 99 07/17/19 18:11 79 21 118/70 99 07/17/19 18:05 80 30 H 118/70 98 07/17/19 18:00 80 28 H 118/70 98 07/17/19 17:55 77 30 H 119/69 98 07/17/19 17:51 107 H 30 H 119/69 98 07/17/19 17:10 77 125/81 100 07/17/19 17:00 67 07/17/19 16:00 76 30 H 97 07/17/19 15:06 82 105/76 100 07/17/19 13:00 84 30 H 97 07/17/19 12:51 101 H 107/53 99 - Physical Examination General: Other (unresponsive on the vent) Cardiac: Positive: Reg Rate and Rhythm - Labs and Meds Cardiac Enzymes 07/18/19 07/18/19 Range/Units 05:40 05:40 AST 94 H (5-40) units/L Lactate Dehydrogenase 294 H (91-180) units/L CBC 07/18/19 Range/Units 05:40 WBC 22.7 H (4.5-11.0) K/mm3 RBC 2.64 L (3.65-5.03) M/mm3 Hgb 8.2 L (11.8-15.2) gm/dl Hct 24.9 L (35.5-45.6) % Plt Count 94 L (140-440) K/mm3 Comprehensive Metabolic Panel 07/18/19 07/18/19 Range/Units 05:40 05:40 Sodium 137 (137-145) mmol/L Potassium 4.4 (3.6-5.0) mmol/L Chloride 94.5 L (98-107) mmol/L Carbon Dioxide 22 (22-30) mmol/L BUN 61 H (9-20) mg/dL Creatinine 5.6 H (0.8-1.5) mg/dL Glucose 111 H (75-100) mg/dL Calcium 8.4 (8.4-10.2) mg/dL Direct Bilirubin 0.7 H (0-0.2) mg/dL Indirect Bilirubin 0.4 mg/dL AST 94 H (5-40) units/L ALT 16 (7-56) units/L Alkaline Phosphatase 159 H (35-129) units/L Total Protein 5.6 L D (6.3-8.2) g/dL Albumin 2.5 L (3.9-5) g/dL
--- NOTE | 2019-07-18 12:33 | Progress Note ---
Assessment and Plan Acute Kidney Injury possibly prerenal/ATN, cardiorenal syndrome, diuretics, ACEI, AIN from NSAIDs, ? underlying CKD process, no obstruction Hyperkalemia High Anion Gap Metabolic Acidosis Acute respiratory failure LLL PNA Anemia Hypomagnesemia Plan: - HD today for clearanec and volume removal, dialysis paramters adjusted to improve hemodynamic stability - secondary GN and vasculitis work up ordered, so far negative for ANCA, normalcomplement, negative HCV, HBV, pending anti GBM, HIV and SHANNA but has rare schisto with elevated LDH, will consult hematology - Epogen with HD - Review of labs from 2015-07/02/19 showed SCr level between 0.8-2.0 - Renal US mentioned moderate ascites, but no hydronephrosis - CXR on 07/12/19 showed congestion - D/C spironolactone and lisinopril for now in setting of BRODIE and hyperkalemia. - Monitor blood pressure closely, adjust BP regimen if needed - On Abx - Renally dose medications Delmar Donovan MD [phone] Subjective Date of service: 07/18/19 Principal diagnosis: BRODIE Interval history: patient was intubated and transferred to ICU after cardiac arrest yesterday, brother at bedside, all questions answered Objective - Vital Signs Vital signs: Vital Signs - 12hr 07/18/19 07/18/19 07/18/19 00:31 00:45 01:00 Temperature Pulse Rate 73 71 74 Pulse Rate [ From Monitor] Respiratory 30 H 30 H 30 H Rate Blood Pressure 131/77 105/61 103/59 O2 Sat by Pulse 100 100 100 Oximetry 07/18/19 07/18/19 07/18/19 01:15 01:30 01:45 Temperature Pulse Rate 72 72 73 Pulse Rate [ From Monitor] Respiratory 30 H 30 H 29 H Rate Blood Pressure 91/50 92/48 103/64 O2 Sat by Pulse 100 100 100 Oximetry 07/18/19 07/18/19 07/18/19 02:00 02:15 02:30 Temperature Pulse Rate 73 70 69 Pulse Rate [ From Monitor] Respiratory 23 30 H 30 H Rate Blood Pressure 96/58 103/56 84/46 O2 Sat by Pulse 100 100 100 Oximetry 07/18/19 07/18/19 07/18/19 02:45 03:00 03:15 Temperature Pulse Rate 68 69 69 Pulse Rate [ From Monitor] Respiratory 30 H 30 H 30 H Rate Blood Pressure 90/48 104/60 131/73 O2 Sat by Pulse 100 100 100 Oximetry 07/18/19 07/18/19 07/18/19 03:30 03:45 04:00 Temperature 99.0 F Pulse Rate 66 69 67 Pulse Rate [ From Monitor] Respiratory 30 H 30 H 30 H Rate Blood Pressure 118/60 123/70 111/63 O2 Sat by Pulse 100 100 100 Oximetry 07/18/19 07/18/19 07/18/19 04:11 04:15 04:30 Temperature Pulse Rate 68 69 73 Pulse Rate [ From Monitor] Respiratory 26 H 30 H Rate Blood Pressure 111/63 115/73 127/79 O2 Sat by Pulse 100 100 100 Oximetry 07/18/19 07/18/19 07/18/19 04:45 05:00 05:13 Temperature Pulse Rate 66 71 Pulse Rate [ 71 From Monitor] Respiratory 30 H 30 H 30 H Rate Blood Pressure 127/79 109/62 O2 Sat by Pulse 100 100 97 Oximetry 07/18/19 07/18/19 07/18/19 05:15 05:30 05:45 Temperature Pulse Rate 71 71 71 Pulse Rate [ From Monitor] Respiratory 30 H 30 H 30 H Rate Blood Pressure 113/67 108/63 100/67 O2 Sat by Pulse 100 100 100 Oximetry 07/18/19 07/18/19 07/18/19 06:01 06:15 06:30 Temperature Pulse Rate 69 70 69 Pulse Rate [ From Monitor] Respiratory 30 H 23 30 H Rate Blood Pressure 103/64 120/66 110/64 O2 Sat by Pulse 100 99 100 Oximetry 07/18/19 07/18/19 07/18/19 06:45 07:00 07:15 Temperature Pulse Rate 71 70 73 Pulse Rate [ From Monitor] Respiratory 30 H 30 H 30 H Rate Blood Pressure 105/62 112/65 122/66 O2 Sat by Pulse 100 100 100 Oximetry 07/18/19 07/18/19 07/18/19 07:30 07:45 08:00 Temperature 99.5 F Pulse Rate 71 67 70 Pulse Rate [ From Monitor] Respiratory 30 H 19 30 H Rate Blood Pressure 116/66 95/54 122/62 O2 Sat by Pulse 100 100 100 Oximetry 01/31/20 01/31/20 01/31/20 08:15 08:20 08:30 Temperature Pulse Rate 69 66 Pulse Rate [ From Monitor] Respiratory 30 H 21 30 H Rate Blood Pressure 90/46 84/43 O2 Sat by Pulse 100 100 100 Oximetry 07/18/19 07/18/19 07/18/19 08:36 08:45 09:00 Temperature Pulse Rate 68 66 65 Pulse Rate [ From Monitor] Respiratory 30 H 30 H Rate Blood Pressure 84/43 94/52 104/56 O2 Sat by Pulse 100 100 100 Oximetry 07/18/19 07/18/19 07/18/19 09:15 09:31 09:45 Temperature Pulse Rate 66 70 67 Pulse Rate [ From Monitor] Respiratory 30 H 30 H 30 H Rate Blood Pressure 107/59 144/76 130/70 O2 Sat by Pulse 100 100 100 Oximetry 07/18/19 07/18/19 07/18/19 10:01 10:15 10:30 Temperature Pulse Rate 69 68 65 Pulse Rate [ From Monitor] Respiratory 20 30 H 30 H Rate Blood Pressure 127/68 108/65 109/59 O2 Sat by Pulse 100 100 100 Oximetry 07/18/19 07/18/19 07/18/19 10:45 11:00 11:15 Temperature Pulse Rate 71 100 H 75 Pulse Rate [ From Monitor] Respiratory 24 27 H 25 H Rate Blood Pressure 114/63 119/66 125/67 O2 Sat by Pulse 99 100 100 Oximetry 07/18/19 11:59 Temperature Pulse Rate 69 Pulse Rate [ From Monitor] Respiratory Rate Blood Pressure 120/60 O2 Sat by Pulse 100 Oximetry - General Appearance General appearance: intubated EENT: ATNC, PERRL, mucous membranes dry Neck: no JVD, no carotid bruit Respiratory: Present: Decreased Breath Sounds Cardiology: tachycardia Gastrointestinal: normoactive bowel sounds, distended Integumentary: no rash, warm and dry Neurologic: other (intubated) Musculoskeletal: other (trace pitting edema) Psychiatric: other (intubated) - Lab 07/18/19 05:40 07/18/19 05:40 Most recent lab results ABG pH 7.401 pH Units (7.350-7.450) 07/18/19 Unknown ABG pCO2 38.6 mm Hg 07/18/19 Unknown ABG pO2 81.2 mm Hg (80.0-90.0) 07/18/19 Unknown ABG HCO3 23.4 mmol/L (20.0-26.0) 07/18/19 Unknown ABG O2 Saturation 96.3 % (95.0-99.0) 07/18/19 Unknown Calcium 8.4 mg/dL (8.4-10.2) 07/18/19 05:40 Phosphorus 4.70 mg/dL (2.5-4.5) H 07/18/19 05:40 Magnesium 1.70 mg/dL (1.7-2.3) 07/16/19 21:34 Urine Creatinine 106.2 mg/dL (0.1-20.0) H 07/14/19 17:28 Urine Sodium 67 mmol/L 07/14/19 17:28 Urine Total Protein 173 mg/dL (5-11.8) H 07/14/19 16:40 Medications & Allergies - Medications Allergies/Adverse Reactions: Allergies No Known Allergies Allergy (Verified 07/01/19 11:20) Home Medications: Home Medications Medication Instructions Recorded Confirmed Last Taken Type Magnesium Oxide 400 mg PO BIDAC #60 tablet 12/07/16 07/13/19 1 Day Ago Rx ~09/16/17 Thiamine [Vitamin B-1] 100 mg PO QDAY #30 tablet 12/07/16 07/13/19 2 Days Ago Rx ~09/14/17 100 mg Lisinopril [Zestril] 20 mg PO DAILY #30 tablet 09/18/17 07/13/19 Unknown Rx Pantoprazole [Protonix TAB] 40 mg PO BID #60 tablet 09/18/17 07/13/19 Unknown Rx Aspirin [Aspirin BABY CHEW TAB] 81 mg PO QDAY #30 tab.chew 07/05/19 07/13/19 Unknown Rx Furosemide [Lasix TAB] 40 mg PO BID #60 tablet 07/05/19 07/13/19 Unknown Rx Nitroglycerin [Nitrostat] 0.4 mg SL .Q5MIN PRN #10 tablet 07/05/19 07/13/19 Unknown Rx Spironolactone [Aldactone] 12.5 mg PO QDAY #30 tablet 07/05/19 07/13/19 Unknown Rx carvediloL [Coreg] 6.25 mg PO BID #60 tablet 07/05/19 07/13/19 Unknown Rx lisinopriL [Zestril TAB] 20 mg PO QDAY #30 tablet 07/05/19 07/13/19 Unknown Rx Active Medications: Generic Name Dose Route Start Last Admin Trade Name Premq PRN Reason Stop Dose Admin Albuterol 2.5 mg 07/14/19 04:54 07/16/19 13:42 Proventil IH 2.5 mg Q4HRT PRN Administration Shortness Of Breath Epoetin Barney 10,000 unit 07/14/19 10:13 07/14/19 13:38 Procrit IV 10,000 unit CHEMA PRN Administration DIALYSIS Haloperidol Lactate 5 mg 07/12/19 21:35 07/12/19 21:09 Haldol IV 5 mg Q1H PRN Administration Unrespon. to mult. doses BZD's Sodium Chloride 100 mls @ 999 mls/hr 07/16/19 12:11 Nacl 0.9% IV CHEMA PRN Hypotension Norepinephrine 8 mg/ Sodium 250 mls @ 3.75 mls/hr 07/17/19 14:00 07/18/19 10:04 Chloride IV 0 mcg/min TITR TERRELL 0 mls/hr Titration Protocol 2 MCG/MIN Vasopressin 20 unit/ Sodium 101 mls @ 9.09 mls/hr 07/17/19 15:00 Chloride IV TITR TERRELL Protocol 0.03 UNITS/MIN Thiamine HCl 100 mg/ Sodium 51 mls @ 100 mls/hr 07/18/19 10:00 07/18/19 11:25 Chloride IV 100 mls/hr QDAY TERRELL Administration Metronidazole 500 mg in 100 mls @ 100 mls/hr 07/17/19 17:00 07/18/19 05:36 Flagyl 500 Mg/100 Ml IV 100 mls/hr Q8HR TERRELL Administration Protocol Cefepime HCl 1 gm in 100 mls @ 200 mls/hr 07/17/19 17:20 07/17/19 17:34 Cefepime/Ns 1 Gm/100 Ml IV 200 mls/hr Q24H TERRELL Administration Lansoprazole 30 mg 07/18/19 11:00 07/18/19 11:25 Prevacid Solutab FEEDTUBE 30 mg QDAY TERRELL Administration
[2019-07-18 13:09] LABS: HIV-1 Antibody Differentiation SEE SCANNED RESULT; HIV-2 Antibody Differentiation SEE SCANNED RESULT
[2019-07-18] MEDS ORDERED: SIMPLE SYRUP 15 ML FEEDTUBE PRN ×2 (13:20)
[2019-07-18] MEDS ORDERED: LIPASE 10,500/PROTEASE 25,000/AMYLASE 43,750 (UNITS) DR CAP FEEDTUBE PRN (13:20)
[2019-07-18] MEDS ORDERED: SODIUM BICARBONATE 325 MG TAB FEEDTUBE PRN (13:20)
--- NOTE | 2019-07-18 14:41 | Consultation ---
History of Present Illness - Reason for Consult Consult date: 07/18/19 Multifocal pneumonia Requesting physician: HIREN MAURICIO - History of Present Illness The patient is a 48/M with deafness, HTN, CHF, anxiety, depression, COPD was admitted to the hospital on 07/12/2019 with shortness of breath, found to have hypoxia and renal failure and was started on urgent dialysis. Afebrile on admission but had some leucocytosis of 14K, so was also started on abx for pneumonia coverage with Levofloxacin. On 07/15/2019, patient underwent an abdominal paracentesis, ultrasound-guided and about 3.2 L was drained. On 07/17/2019, patient had PEA arrest [address] scanner and was subsequently intubated, brought to ICU. Now weaned off pressors. Currently in ICU, unresponsive, on the vent. Patient unable to provide history. History obtained by chart review and by talking to the brother at bedside who is a limited historian. Review of Systems: intubated, unresponsive. Past History Past Medical History: COPD, heart failure, hypertension, other (See HPI) Past Surgical History: No surgical history, Other (Reviewed) Social history: single. denies: smoking, alcohol abuse, prescription drug abuse Family history: diabetes, hypertension Medications and Allergies Allergies Allergy/AdvReac Type Severity Reaction Status Date / Time No Known Allergies Allergy Verified 07/01/19 11:20 Home Medications Medication Instructions Recorded Confirmed Last Taken Type Magnesium Oxide 400 mg PO BIDAC #60 tablet 12/07/16 07/13/19 1 Day Ago Rx ~09/16/17 Thiamine [Vitamin B-1] 100 mg PO QDAY #30 tablet 12/07/16 07/13/19 2 Days Ago Rx ~09/14/17 100 mg Lisinopril [Zestril] 20 mg PO DAILY #30 tablet 09/18/17 07/13/19 Unknown Rx Pantoprazole [Protonix TAB] 40 mg PO BID #60 tablet 09/18/17 07/13/19 Unknown Rx Aspirin [Aspirin BABY CHEW TAB] 81 mg PO QDAY #30 tab.chew 07/05/19 07/13/19 Unknown Rx Furosemide [Lasix TAB] 40 mg PO BID #60 tablet 07/05/19 07/13/19 Unknown Rx Nitroglycerin [Nitrostat] 0.4 mg SL .Q5MIN PRN #10 tablet 07/05/19 07/13/19 Unknown Rx Spironolactone [Aldactone] 12.5 mg PO QDAY #30 tablet 07/05/19 07/13/19 Unknown Rx carvediloL [Coreg] 6.25 mg PO BID #60 tablet 07/05/19 07/13/19 Unknown Rx lisinopriL [Zestril TAB] 20 mg PO QDAY #30 tablet 07/05/19 07/13/19 Unknown Rx Active Meds: Active Medications Albuterol (Proventil) 2.5 mg IH Q4HRT PRN PRN Reason: Shortness Of Breath Last Admin: 07/16/19 13:42 Dose: 2.5 mg Documented by: Lipase/Protease/Amylase (Kwan Moeller 10,500 Unit) 1 each FEEDTUBE PRN PRN PRN Reason: For Clogged Feeding Tube Epoetin Barney (Procrit) 10,000 unit IV CHEMA PRN PRN Reason: DIALYSIS Last Admin: 07/14/19 13:38 Dose: 10,000 unit Documented by: Haloperidol Lactate (Haldol) 5 mg IV Q1H PRN PRN Reason: Unrespon. to mult. doses BZD's Last Admin: 07/12/19 21:09 Dose: 5 mg Documented by: Sodium Chloride (Nacl 0.9%) 100 mls @ 999 mls/hr IV CHEMA PRN PRN Reason: Hypotension Norepinephrine 8 mg/ Sodium (Chloride) 250 mls @ 3.75 mls/hr IV TITR TERRELL; Protocol Last Titration: 07/18/19 10:04 Dose: 0 mcg/min, 0 mls/hr Documented by: Vasopressin 20 unit/ Sodium (Chloride) 101 mls @ 9.09 mls/hr IV TITR TERRELL; Pr otocol Thiamine HCl 100 mg/ Sodium (Chloride) 51 mls @ 100 mls/hr IV QDAY TERRELL Last Admin: 07/18/19 11:25 Dose: 100 mls/hr Documented by: Metronidazole (Flagyl 500 Mg/100 Ml) 500 mg in 100 mls @ 100 mls/hr IV Q8HR TERRELL; Protocol Last Admin: 07/18/19 05:36 Dose: 100 mls/hr Documented by: Cefepime HCl (Cefepime/Ns 1 Gm/100 Ml) 1 gm in 100 mls @ 200 mls/hr IV Q24H COUNTS INCLUDE 234 BEDS AT THE [facility] Last Admin: 07/17/19 17:34 Dose: 200 mls/hr Documented by: Lansoprazole (Prevacid Solutab) 30 mg FEEDTUBE QDAY COUNTS INCLUDE 234 BEDS AT THE [facility] Last Admin: 07/18/19 11:25 Dose: 30 mg Documented by: Simple Syrup (Simple Syrup) 15 ml FEEDTUBE PRN PRN PRN Reason: Hypoglycemia Simple Syrup (Simple Syrup) 30 ml FEEDTUBE PRN PRN PRN Reason: Hypoglycemia Sodium Bicarbonate (Sodium Bicarbonate) 325 mg FEEDTUBE PRN PRN PRN Reason: For Clogged Feeding Tube Physical Examination - Physical Exam Narrative exam: Physical Exam: Constitutional: unresponsive, intubated Head, Ears, Nose: Normocephalic, atraumatic. External ears, nose normal Eyes: Conjunctivae/corneas clear. No icterus. No ptosis. Neck: intubated Oral: intubated Cardiovascular: S1, S2 normal. Respiratory: Good air entry, clear to auscultation bilaterally GI: Soft, non-tender; bowel sounds + Musculoskeletal: No pedal edema, no cyanosis. Skin: No rash or abscess Hem/Lymphatic: No palpable cervical or supraclavicular nodes. No lymphangitis Psych: no agitation Neurological: unresponsive, intubated, on vent - Constitutional Vitals: Vital Signs Temp Pulse Resp BP Pulse Ox 99.5 F 104 H 29 H 156/98 99 07/18/19 08:00 07/18/19 14:00 07/18/19 14:00 07/18/19 14:00 07/18/19 14:00 Temperature -Last 24 Hours Temperature 99.5 F Temperature 99.0 F Temperature 99.0 F Temperature 99.3 F Results - Labs CBC & Chem 7: 07/18/19 05:40 07/18/19 05:40 Labs: Abnormal lab results 07/18/19 07/18/19 07/18/19 Range/Units 04:20 05:40 05:40 WBC 22.7 H (4.5-11.0) K/mm3 RBC 2.64 L (3.65-5.03) M/mm3 Hgb 8.2 L (11.8-15.2) gm/dl Hct 24.9 L (35.5-45.6) % MCV 95 H (84-94) fl RDW 19.7 H (13.2-15.2) % Plt Count 94 L (140-440) K/mm3 ABG pO2 238.9 H (80.0-90.0) mm Hg ABG O2 Saturation 99.4 H (95.0-99.0) % ABG Hemoglobin 10.9 L (14.0-18.0) gm/dl Oxyhemoglobin (95.0-99.0) % Chloride 94.5 L (98-107) mmol/L BUN 61 H (9-20) mg/dL Creatinine 5.6 H (0.8-1.5) mg/dL Glucose 111 H (75-100) mg/dL Phosphorus 4.70 H (2.5-4.5) mg/dL Direct Bilirubin (0-0.2) mg/dL AST (5-40) units/L Alkaline Phosphatase (35-129) units/L Lactate Dehydrogenase 294 H (91-180) units/L Total Protein (6.3-8.2) g/dL Albumin (3.9-5) g/dL 07/18/19 07/18/19 Range/Units 05:40 Unknown WBC (4.5-11.0) K/mm3 RBC (3.65-5.03) M/mm3 Hgb (11.8-15.2) gm/dl Hct (35.5-45.6) % MCV (84-94) fl RDW (13.2-15.2) % Plt Count (140-440) K/mm3 ABG pO2 (80.0-90.0) mm Hg ABG O2 Saturation (95.0-99.0) % ABG Hemoglobin 11.6 L (14.0-18.0) gm/dl Oxyhemoglobin 94.3 L (95.0-99.0) % Chloride (98-107) mmol/L BUN (9-20) mg/dL Creatinine (0.8-1.5) mg/dL Glucose (75-100) mg/dL Phosphorus (2.5-4.5) mg/dL Direct Bilirubin 0.7 H (0-0.2) mg/dL AST 94 H (5-40) units/L Alkaline Phosphatase 159 H (35-129) units/L Lactate Dehydrogenase (91-180) units/L Total Protein 5.6 L D (6.3-8.2) g/dL Albumin 2.5 L (3.9-5) g/dL - Imaging and Cardiology Chest x-ray: report reviewed, image reviewed (Chest x-ray shows patchy bilateral airspace disease) CT scan - abdomen: report reviewed, image reviewed (CT of the abdomen and pelvis on the lung cuts shows dense multifocal pneumonia bilaterally) Assessment and Plan Cultures: 07/12/2019 blood culture: Negative 07/14/2019 urine culture: mixed growth 07/17/2019 tracheal aspirate: Gram-negative rods A/P: 48/M with deafness, HTN, CHF, anxiety, depression, COPD was admitted to the hospital on 07/12/2019 with shortness of breath, found to have hypoxia and renal failure and was started on urgent dialysis, now with: #Shock, following PEA cardiac arrest #Bilateral multifocal pneumonia, acute respiratory failure: Possibly aspiration v/s lung contusion from CPR following cardiac arrest. Culture growing GNR. Empiric cefepime, vancomycin and Flagyl for now, anticipate stopping vancomycin soon. #Acute renal failure: Dialysis requiring. Nephrology following, evaluating for glomerulonephritis and vasculitis. Patient also has rare schistocytes in peripheral blood along with few eosinophils in urine. Renally dose abx. #CHF #Acute encephalopathy: post arrest. Recs: - Empiric renally dosed cefepime, vancomycin and Flagyl for now, anticipate stopping vancomycin soon - follow up respiratory cultures, fever and WBC d/w Dr. Mauricio. Sarah Downing MD, FACP [facility] C: [phone] O: [phone] F: [phone]
[2019-07-18] MEDS: CEFEPIME/NS 1 GM/100 ML 1 GM/100 ML BAG IV SCH (17:36)
--- NOTE | 2019-07-18 18:05 | Progress Note ---
Assessment and Plan Assessment and plan: Patient is a 48-year-old man with a history of being deaf (writes to communicate) HTN, Systolic CHF(EF 20%), anxiety, depression COPD and GERD who presented to [facility] ED with severe SOB. EMS found patient to have a pulse oximetry of 80% on room air, improved to 92% on 2 L of supplemental oxygen. Patient was confused and provided limited history. Patient refused BiPAP. Patient given 40 mg of Lasix IV and and EMS gave 40mg iv lasix prior to arrival. Patient was found to have left lower lobe pneumonia, complicated by acute respiratory failure, severe Uremia, hyponatremia, hyperkalemia, metabolic acidosis. Patient admitted to medical floor for medical stabilization and treatment due to high risk for cardiopulmonary and renal decompensation. Nephrology team consulted in ED for urgent dialysis. Patient initiated on pneumonia protocol with IV antibiotic therapy. Patient treated with calcium gluconate and Kayexalate for hyperkalemia in ED. EKG showed no changes. Patient mental status so poor he had to be put in restraints to prevent for pulling and removing O2. Next day, patient remained confused, so He went down for CT head and he must've removed O2 mask while in CT scanner or had a fatal cardiac arrhythmia which he was experiencing NSVT/aflutter with RVR the night before. This led to Cardiac arrest. ED physician was the first to respond and saw Asystole on the monitor, ACLS done and when I arrived he was in PEA. He was a difficult Intubation as he had bleeding in the Endotracheal area due to Eliquis which was started on 07/16/2019. He was intubated by ED physician. Pulse was restored and he was sent to the ICU, where he had another Cardiac arrest with PEA, ACLS done again and pulse restored. Overnight he was posturing. He is comatose without any sedative. * pChest x-ray showed bilateral pleural effusion with significant pulmonary congestion. EKG showed no ST elevation. * Initial Labs: WBC 14.7, hgb 9.7, plt 124, Na 125, k 5.5, co2 13, BUN 70, Cr 8.8 Acute on chronic systolic heart failure decompensation leading to respiratory failure: treated with Ultrafiltration via HD due to severe renal failure, ultrafiltration removed 4 liters Acute hypoxic respiratory failure, refused non-invasive ventilation; therefore, treat with other means, patient noncompliance with wearing O2, breastfeeding peer counselor that this will led to his demise, which most likely led to Cardiac arrest Severe ARF, suspected due to ATN, cardiorenal, vasomotor poa: treated with emergent HD, has right groin, daily accessment of HD, d/w nephrology, will need senior living HD, referral sent out, stop PPI LLL pneumonia: treat with IV abx, unsure if sirs or sepsis poa, see admitting doctor notes: treat with iv levaquin renal dose, AMS, acute metabolic encephalopathy, poa, thought to be due to severe Uremia, but uremia improved and he still confused, needing restraint, CT head unrevealin g, history of alcohol abuse but not Anemia appears AOCD due to renal dysfunction: continue to monitor cbc Thrombocytopenia: repeat cbc Morbid Obesity, bmi 44.1: breastfeeding peer counselor on lifestyle modification Language Barrier/Deafness: communicates via paper New issue 07/16/19, AFlutter with RVR: treat with coreg and Eliquis initiated by Dr. Sadler, New issues 07/16/19 overnight: NSVT full code DVT ppx: scd only Suspect Anoxic brain injury: consult Neurology Dispo: continue inpatient ICU care Brother Cheikh [phone] at bedside History Interval history: Patient was seen and examined. Follow-up on current diagnosis of ARF, CHF, respiratory failure, still with SOB and low energy. Overnight eventful as patient had posturing and given iv ativan. Patient denies any chest pain, nausea/vomiting or severe headaches. Imaging, nursing note, chart, labs and old chart reviewed. Discussed with patient. Hospitalist Physical - Physical exam Narrative exam: Gen: chronic ill appearing, morbid obese bmi 44.1, mild resp failure, a/o x3 HEENT: significant alopecia, NCAT, EOMI, PERRL, OP Clear Neck: supple, no adenopathy, no thyromegaly, +JVD CVS/Heart: RRR, normal S1S2, pulses present bilaterally Chest/Lungs: diminised bs bilateral, Symmetrical chest expansion, good air entry bilaterally GI/Abdomen: soft, NTND, good bowel sounds, no guarding or rebound /Bladder: no suprapubic tenderness, no CVA or paraspinal tenderness Extermity/Skin: ble leg edema, no obvious rash MSK: FROM x 4 Neuro: CN 2-12 grossly intact, no new focal deficits Psych: calm - Constitutional Vitals: Temp Pulse Resp BP Pulse Ox 98.2 F 76 22 86/47 100 07/18/19 16:00 07/18/19 17:31 07/18/19 17:31 07/18/19 17:31 07/18/19 17:31 General appearance: Present: no acute distress Results - Labs CBC & Chem 7: 07/18/19 05:40 07/18/19 05:40 Labs: Laboratory Last Values WBC 22.7 K/mm3 (4.5-11.0) H 07/18/19 05:40 RBC 2.64 M/mm3 (3.65-5.03) L 07/18/19 05:40 Hgb 8.2 gm/dl (11.8-15.2) L 07/18/19 05:40 Hct 24.9 % (35.5-45.6) L 07/18/19 05:40 MCV 95 fl (84-94) H 07/18/19 05:40 MCH 31 pg (28-32) 07/18/19 05:40 MCHC 33 % (32-34) 07/18/19 05:40 RDW 19.7 % (13.2-15.2) H 07/18/19 05:40 Plt Count 94 K/mm3 (140-440) L 07/18/19 05:40 Lymph % (Auto) Typo Machine Operator 07/13/19 04:28 [place] % (Auto) Typo Machine Operator 07/13/19 04:28 Eos % (Auto) Typo Machine Operator 07/13/19 04:28 Baso % (Auto) Typo Machine Operator 07/13/19 04:28 Lymph # Typo Machine Operator 07/13/19 04:28 [place] # Typo Machine Operator 07/13/19 04:28 Eos # Typo Machine Operator 07/13/19 04:28 Baso # Typo Machine Operator 07/13/19 04:28 Add Manual Diff Complete 07/14/19 07:16 Total Counted 100 07/14/19 07:16 Seg Neutrophils % Typo Machine Operator 07/13/19 04:28 Seg Neuts % (Manual) 89.0 % (40.0-70.0) H 07/14/19 07:16 Band Neutrophils % 0 % 07/14/19 07:16 Lymphocytes % (Manual) 4.0 % (13.4-35.0) L 07/14/19 07:16 Reactive Lymphs % (Man) 0 % 07/14/19 07:16 Monocytes % (Manual) 7.0 % (0.0-7.3) 07/14/19 07:16 Eosinophils % (Manual) 0 % (0.0-4.3) 07/14/19 07:16 Basophils % (Manual) 0 % (0.0-1.8) 07/14/19 07:16 Metamyelocytes % 0 % 07/14/19 07:16 Myelocytes % 0 % 07/14/19 07:16 Promyelocytes % 0 % 07/14/19 07:16 Blast Cells % 0 % 07/14/19 07:16 Nucleated RBC % Not Reportable 07/14/19 07:16 Seg Neutrophils # Typo Machine Operator 07/13/19 04:28 Seg Neutrophils # Man 7.7 K/mm3 (1.8-7.7) 07/14/19 07:16 Band Neutrophils # 0.0 K/mm3 07/14/19 07:16 Lymphocytes # (Manual) 0.3 K/mm3 (1.2-5.4) L 07/14/19 07:16 Abs React Lymphs (Man) 0.0 K/mm3 07/14/19 07:16 Monocytes # (Manual) 0.6 K/mm3 (0.0-0.8) 07/14/19 07:16 Eosinophils # (Manual) 0.0 K/mm3 (0.0-0.4) 07/14/19 07:16 Basophils # (Manual) 0.0 K/mm3 (0.0-0.1) 07/14/19 07:16 Metamyelocytes # 0.0 K/mm3 07/14/19 07:16 Myelocytes # 0.0 K/mm3 07/14/19 07:16 Promyelocytes # 0.0 K/mm3 07/14/19 07:16 Blast Cells # 0.0 K/mm3 07/14/19 07:16 WBC Morphology Not Reportable 07/14/19 07:16 Hypersegmented Neuts Not Reportable 07/14/19 07:16 Hyposegmented Neuts Not Reportable 07/14/19 07:16 Hypogranular Neuts Not Reportable 07/14/19 07:16 Smudge Cells Not Reportable 07/14/19 07:16 Toxic Granulation Not Reportable 07/14/19 07:16 Toxic Vacuolation Not Reportable 07/14/19 07:16 Dohle Bodies Not Reportable 07/14/19 07:16 Pelger-Huet Anomaly Not Reportable 07/14/19 07:16 Mack Rods Not Reportable 07/14/19 07:16 Platelet Estimate Consistent w auto 07/14/19 07:16 Clumped Platelets Not Reportable 07/14/19 07:16 Plt Clumps, EDTA Not Reportable 07/14/19 07:16 Large Platelets Not Reportable 07/14/19 07:16 Giant Platelets Not Reportable 07/14/19 07:16 Platelet Satelliting Not Reportable 07/14/19 07:16 Plt Morphology Comment Not Reportable 07/14/19 07:16 RBC Morphology Not Reportable 07/14/19 07:16 Dimorphic RBCs Not Reportable 07/14/19 07:16 Polychromasia Not Reportable 07/14/19 07:16 Hypochromasia Not Reportable 07/14/19 07:16 Poikilocytosis Not Reportable 07/14/19 07:16 Anisocytosis 1+ 07/14/19 07:16 Microcytosis Not Reportable 07/14/19 07:16 Macrocytosis Not Reportable 07/14/19 07:16 Spherocytes Not Reportable 07/14/19 07:16 Pappenheimer Bodies Not Reportable 07/14/19 07:16 Sickle Cells Not Reportable 07/14/19 07:16 Target Cells Few 07/14/19 07:16 Tear Drop Cells Not Reportable 07/14/19 07:16 Ovalocytes Not Reportable 07/14/19 07:16 Helmet Cells Not Reportable 07/14/19 07:16 Jackson-Enders Bodies Not Reportable 07/14/19 07:16 [place] Rings Not Reportable 07/14/19 07:16 Yolis Cells Not Reportable 07/14/19 07:16 Bite Cells Not Reportable 07/14/19 07:16 Crenated Cell Not Reportable 07/14/19 07:16 Elliptocytes Not Reportable 07/14/19 07:16 Acanthocytes (Spur) Not Reportable 07/14/19 07:16 Rouleaux Not Reportable 07/14/19 07:16 Hemoglobin C Crystals Not Reportable 07/14/19 07:16 Schistocytes Not Reportable 07/14/19 07:16 Malaria parasites Not Reportable 07/14/19 07:16 Víctor Bodies Not Reportable 07/14/19 07:16 Hem Pathologist Commnt No 07/14/19 07:16 PT 19.8 Sec. (12.2-14.9) H 07/12/19 15:08 INR 1.65 (0.87-1.13) H 07/12/19 15:08 APTT 47.8 Sec. (24.2-36.6) H 07/12/19 15:08 ABG pH 7.401 pH Units (7.350-7.450) 07/18/19 Unknown ABG pCO2 38.6 mm Hg 07/18/19 Unknown ABG pO2 81.2 mm Hg (80.0-90.0) 07/18/19 Unknown ABG HCO3 23.4 mmol/L (20.0-26.0) 07/18/19 Unknown ABG O2 Saturation 96.3 % (95.0-99.0) 07/18/19 Unknown ABG O2 Content 15.5 (0.0-44) 07/18/19 Unknown ABG Base Excess -1.1 mmol/L (-2.0-3.0) 07/18/19 Unknown ABG Hemoglobin 11.6 gm/dl (14.0-18.0) L 07/18/19 Unknown ABG Carboxyhemoglobin 1.5 % (0.0-5.0) 07/18/19 Unknown ABG Methemoglobin 0.6 % (0.0-1.5) 07/18/19 Unknown Oxyhemoglobin 94.3 % (95.0-99.0) L 07/18/19 Unknown FiO2 40 % 07/18/19 Unknown Sodium 137 mmol/L (137-145) 07/18/19 05:40 Potassium 4.4 mmol/L (3.6-5.0) 07/18/19 05:40 Chloride 94.5 mmol/L (98-107) L 07/18/19 05:40 Carbon Dioxide 22 mmol/L (22-30) 07/18/19 05:40 Anion Gap 25 mmol/L 07/18/19 05:40 BUN 61 mg/dL (9-20) H 07/18/19 05:40 Creatinine 5.6 mg/dL (0.8-1.5) H 07/18/19 05:40 Estimated GFR 13 ml/min 07/18/19 05:40 BUN/Creatinine Ratio 11 % 07/18/19 05:40 Glucose 111 mg/dL (75-100) H 07/18/19 05:40 POC Glucose 122 (70-105) H 07/17/19 12:52 Calcium 8.4 mg/dL (8.4-10.2) 07/18/19 05:40 Phosphorus 4.70 mg/dL (2.5-4.5) H 07/18/19 05:40 Magnesium 1.70 mg/dL (1.7-2.3) 07/16/19 21:34 Iron 15 ug/dL (49-181) L 07/15/19 06:30 TIBC 186 mcg/dL (250-450) L 07/15/19 06:30 Ferritin 428.2 ng/mL (13.0-400.0) H 07/15/19 06:30 Total Bilirubin 1.10 mg/dL (0.1-1.2) 07/18/19 05:40 Direct Bilirubin 0.7 mg/dL (0-0.2) H 07/18/19 05:40 Indirect Bilirubin 0.4 mg/dL 07/18/19 05:40 AST 94 units/L (5-40) H 07/18/19 05:40 ALT 16 units/L (7-56) 07/18/19 05:40 Alkaline Phosphatase 159 units/L (35-129) H 07/18/19 05:40 Lactate Dehydrogenase 294 units/L (91-180) H 07/18/19 05:40 Total Creatine Kinase 59 units/L (55-170) 07/14/19 07:16 Troponin T 0.188 ng/mL (0.00-0.029) H* 07/12/19 17:04 NT-Pro-B Natriuret Pep > 95328 pg/mL (0-450) H 07/12/19 15:08 Total Protein 5.6 g/dL (6.3-8.2) L D 07/18/19 05:40 Albumin 2.5 g/dL (3.9-5) L 07/18/19 05:40 Albumin/Globulin Ratio 0.8 % 07/18/19 05:40 Triglycerides 128 mg/dL (2-149) 07/12/19 15:08 Cholesterol 121 mg/dL (50-199) 07/12/19 15:08 LDL Cholesterol Direct 40 mg/dL (50-130) L 07/12/19 15:08 HDL Cholesterol 44 mg/dL (40-59) 07/12/19 15:08 Cholesterol/HDL Ratio 2.75 % 07/12/19 15:08 Urine Color Eugenia (Yellow) 07/14/19 17:28 Urine Turbidity Slightly-cloudy (Clear) 07/14/19 17: Urine pH 5.0 (5.0-7.0) 07/14/19 17: Ur Specific [place] 1.014 (1.003-1.030) 07/14/19 17: Urine Protein 100 mg/dl mg/dL (Negative) 07/14/19 17:28 Urine Glucose (UA) Neg mg/dL (Negative) 07/14/19 17: Urine Ketones Neg mg/dL (Negative) 07/14/19 17:28 Urine Blood Sm (Negative) 07/14/19 17:28 Urine Nitrite Neg (Negative) 07/14/19 17: Urine Bilirubin Neg (Negative) 07/14/19 17: Urine Urobilinogen < 2.0 mg/dL (<2.0) 07/14/19 17:28 Ur Leukocyte Esterase Neg (Negative) 07/14/19 17:28 Urine WBC (Auto) 31.0 /HPF (0.0-6.0) H 07/14/19 17:28 Urine RBC (Auto) 3.0 /HPF (0.0-6.0) 07/14/19 17:28 U Epithel Cells (Auto) < 1.0 /HPF (0-13.0) 07/14/19 17: Urine Bacteria (Auto) 1+ /HPF (Negative) 07/14/19 17:28 Urine Mucus Few /HPF 07/14/19 17:28 Urine Yeast (Budding) Few /HPF 07/14/19 17:28 Urine Eosinophils Rare seen (None Seen) 07/14/19 17:28 Urine Creatinine 106.2 mg/dL (0.1-20.0) H 07/14/19 17:28 Protein/Creatinin Ratio 1.66 07/14/19 16:40 Urine Sodium 67 mmol/L 07/14/19 17:28 Urine Urea Nitrogen 100 07/14/19 17:28 Urine Total Protein 173 mg/dL (5-11.8) H 07/14/19 16:40 Fluid Type Paracentesis 07/14/19 10:45 Fluid Color Bloody 07/14/19 10:45 Fluid Appearance Bloody 07/14/19 10:45 Fluid WBC 120 /mm3 07/14/19 10:45 Fluid RBC 67839 /mm3 07/14/19 10:45 Fluid Seg Neutrophils 33.0 % 07/14/19 10:45 Fluid Lymphocytes 17.0 % 07/14/19 10:45 Fluid Reactive Lymphs 0 % 07/14/19 10:45 Fluid Monocytes 50.0 % 07/14/19 10:45 Fluid Eosinophils 0 % 07/14/19 10:45 Fluid Basophils 0 % 07/14/19 10:45 Proteinase 3 (PR3) Ab <1.0 AI (<1.0) 07/14/19 11:50 Myeloperoxidase Ab <1.0 AI (<1.0) 07/14/19 11:50 Complement C3 124 mg/dL (82-185) 07/14/19 11:50 Complement C4 28 mg/dL (15-53) 07/14/19 11:50 Hepatitis A IgM Ab Non-reactive (NonReactive) 07/12/19 17:49 Hep Bs Antigen Non-reactive (Negative) 07/14/19 11:50 Hep B Core IgM Ab Non-reactive (NonReactive) 07/12/19 17:49 Hepatitis C Antibody Non-reactive (NonReactive) 07/14/19 11:50 HIV-1 Antibody See scanned result 07/14/19 11:50 HIV-2 Ab (Immunoblot) See scanned result 07/14/19 11:50 Schistocytes Smear Rare 07/18/19 05:40 Active Medications - Current Medications Current Medications: Generic Name Dose Route Start Last Admin Trade Name Freq PRN Reason Stop Dose Admin Albuterol 2.5 mg 07/14/19 04:54 07/16/19 13:42 Proventil IH 2.5 mg Q4HRT PRN Administration Shortness Of Breath Lipase/Protease/Amylase 1 each 07/18/19 13:[address] 10,500 Unit FEEDTUBE PRN PRN For Clogged Feeding Tube Epoetin Barney 10,000 unit 07/14/19 10:13 07/14/19 13:38 Procrit IV 10,000 unit CHEMA PRN Administration DIALYSIS Haloperidol Lactate 5 mg 07/12/19 21:35 07/12/19 21:09 Haldol IV 5 mg Q1H PRN Administration Unrespon. to mult. doses BZD's Sodium Chloride 100 mls @ 999 mls/hr 07/16/19 12:11 Nacl 0.9% IV CHEMA PRN Hypotension Norepinephrine 8 mg/ Sodium 250 mls @ 3.75 mls/hr 07/17/19 14:00 07/18/19 17:48 Chloride IV 2 mcg/min TITR TERRELL 3.75 mls/hr Titration Protocol 2 MCG/MIN Vasopressin 20 unit/ Sodium 101 mls @ 9.09 mls/hr 07/17/19 15:00 Chloride IV TITR TERRELL Protocol 0.03 UNITS/MIN Thiamine HCl 100 mg/ Sodium 51 mls @ 100 mls/hr 07/18/19 10:00 07/18/19 11:25 Chloride IV 100 mls/hr QDAY TERRELL Administration Metronidazole 500 mg in 100 mls @ 100 mls/hr 07/17/19 17:00 07/18/19 15:01 Flagyl 500 Mg/100 Ml IV 100 mls/hr Q8HR TERRELL Administration Protocol Cefepime HCl 1 gm in 100 mls @ 200 mls/hr 07/17/19 17:20 07/18/19 17:36 Cefepime/Ns 1 Gm/100 Ml IV 200 mls/hr Q24H TERRELL Administration Lansoprazole 30 mg 07/18/19 11:00 07/18/19 11:25 Prevacid Solutab FEEDTUBE 30 mg QDAY TERRELL Administration Simple Syrup 15 ml 07/18/19 13:20 Simple Syrup FEEDTUBE PRN PRN Hypoglycemia Simple Syrup 30 ml 07/18/19 13:20 Simple Syrup FEEDTUBE PRN PRN Hypoglycemia Sodium Bicarbonate 325 mg 07/18/19 13:20 Sodium Bicarbonate FEEDTUBE PRN PRN For Clogged Feeding Tube Nutrition/Malnutrition Assess - Dietary Evaluation Nutrition/Malnutrition Findings: Nutrition Notes Start: 07/18/19 12:09 Freq: Status: Active Protocol: Document 07/18/19 12:09 CW (Rec: 07/18/19 12:42 CW [id number]) Co-Sign 07/18/19 12:09 LP Nutrition Notes Need for Assessment generated from: LOS Initial or Follow up Assessment Current Diagnosis Acute Kidney Injury, Hypertension,Heart Failure, Respiratory Failure Other Pertinent Diagnosis on HD , metabolic acidosis, pnuemonia Current Diet no current diet Labs/Tests Reviewed Pertinent Medications Norepinephrine Height 5 ft 10 in Weight 103.4 kg [place] Body Weight (kg) 75.45 BMI 32.7 Weight Status Obese Subjective/Other Information Screen for LOS. Pt on vent. TF most likely needed. Pt has been eating poorly since adm, approximately 25-50% of meals have been consumed. Per RN, NGT has been placed. Awaiting KUB. okaykatelyn TF order. Nepro 1.8 Burn Absent Trauma Absent GI Symptoms None Difficulty In Swallowing,Chewing Current % PO Negligible Minimum of two criteria Yes Energy Intake (severe) < or equal to 50% Estimated Energy Requirement > or equal to 5 days Muscle Mass Mild Depletion (non-severe) Fluid Accumulation Moderate to Severe (severe) Reduced Tree Trimmer Strength Measurably Reduced (severe) #2 Nutrition Diagnosis Malnutrition Etiology Pneumonia, metabolic acidosis, BRODIE As Evidenced by Signs and Symptoms bilateral weak apparel designer strength, 3+ pitting edema, and 25-50% consumption of meals since . #1 Nutrition Diagnosis Inadequate oral intake Etiology pt on vent As Evidenced by Signs and Symptoms no diet ordered, pt unable to eat when on the vent Is patient on ventilator? Yes Is Patient Ambulatory and/or Out of Bed No REE-([facility]-confined to bed) 2289.768 Kcal/Kg value to use for calculation 17 Approximate Energy Requirements Using 1758 kcal/Kg Calculation Used for Recommendations Kcal/kg Additional Notes Protein needs: 150 g (> 2 g/ kgIBW) Fluid needs: 1000 - 1500 ml ( on HD/ Anuric) Nutrition Intervention Change Diet Order: TF Nutrition Support: Nepro 1.8 at 41 ml/hr. Water flush of 130 ml q4h. Kcal 1,771 Protein (gm) 80 Fluid (mL) 715 Goal #1 Meet at least 75% of protein and energy needs Anticipated Discharge Needs: unble to determine at this time Follow-Up By: 07/21/19 Additional Comments FU TF initiation
[2019-07-18] MEDS ORDERED: SODIUM CHLORIDE 0.9% 1000 ML 2,000 ML ONE (19:49)
[2019-07-18] MEDS: EPOETIN ALFA 10,000 UNIT/1 ML INJ IV PRN (22:04)
[2019-07-19] MEDS: metroNIDAZOLE/NS 500 MG/100 ML 500 MG/100 ML BAG IV SCH ×3 (05:26→22:35)
[2019-07-19 06:00] LABS: Hematocrit 24.3 % (35.5-45.6); Hemoglobin 8.2 gm/dl (11.8-15.2); Mean Corpuscular HGB Conc 34 % (32-34); Mean Corpuscular Volume 95 fl (84-94); Platelet Count 101 K/mm3 (140-440); Red Blood Count 2.57 M/mm3 (3.65-5.03); Red Cell Distribution Width 19.5 % (13.2-15.2)
[2019-07-19 06:11] LABS: ABG HCO3 27.5 mmol/L (20.0-26.0); ABG Methemoglobin 0.5 % (0.0-1.5); ABG Oxygen Saturation 97.3 % (95.0-99.0); ABG PCO2 42.3 mm Hg; ABG PH 7.431 pH Units (7.350-7.450); ABG PO2 91.2 mm Hg (80.0-90.0)
[2019-07-19] MEDS ORDERED: LACTATED RINGERS 1,000 ML IV ONE (10:20)
[2019-07-19] MEDS: LANSOPRAZOLE 30 MG SOLUTAB FEEDTUBE SCH (10:28)
--- NOTE | 2019-07-19 10:32 | Progress Note ---
Assessment and Plan 48 y/o male with inhouse cardiac arrest x2 1. Repeat CXR to confirm ET tube placement. last film was 2 days ago 2. No sedation 3. Placed on PSV and asked for ABG in 30 minutes 4. Follow up renal recs 5. Will repeat head CT, concern for anoxic brain injury Overall prognosis is guarded to poor. CCT 31 minutes. Subjective Date of service: 07/19/19 Principal diagnosis: BRODIE Interval history: No acute events. Remains unresponsive with eye gaze to left and up. No family at bedside. Of levo but Maps in the mid 50's. Objective Vital Signs - 12hr 07/18/19 07/18/19 07/18/19 22:39 22:45 23:01 Temperature Pulse Rate 67 93 H 76 Respiratory 31 H 20 Rate Blood Pressure 123/68 144/75 123/68 O2 Sat by Pulse 100 100 100 Oximetry 07/18/19 07/18/19 07/18/19 23:15 23:24 23:30 Temperature Pulse Rate 71 74 75 Respiratory 16 22 20 Rate Blood Pressure 111/58 150/81 129/68 O2 Sat by Pulse 100 99 100 Oximetry 07/18/19 07/18/19 07/19/19 23:45 23:48 00:00 Temperature 97.9 F Pulse Rate 71 78 Respiratory 15 23 Rate Blood Pressure 144/75 152/81 O2 Sat by Pulse 99 100 Oximetry 07/19/19 07/19/19 07/19/19 00:15 00:30 00:45 Temperature Pulse Rate 76 75 68 Respiratory 22 20 19 Rate Blood Pressure 156/78 120/71 122/63 O2 Sat by Pulse 100 100 100 Oximetry 07/19/19 07/19/19 07/19/19 00:57 01:00 01:15 Temperature Pulse Rate 78 77 81 Respiratory 21 24 Rate Blood Pressure 138/76 138/76 135/72 O2 Sat by Pulse 100 100 100 Oximetry 07/19/19 07/19/19 07/19/19 01:30 01:45 02:01 Temperature Pulse Rate 79 73 82 Respiratory 21 20 20 Rate Blood Pressure 121/62 119/59 114/57 O2 Sat by Pulse 100 100 100 Oximetry 07/19/19 07/19/19 07/19/19 02:15 02:31 02:45 Temperature Pulse Rate 79 68 71 Respiratory 23 18 20 Rate Blood Pressure 128/67 102/46 103/55 O2 Sat by Pulse 97 100 100 Oximetry 07/19/19 07/19/19 07/19/19 03:00 03:15 03:30 Temperature Pulse Rate 69 78 69 Respiratory 20 21 17 Rate Blood Pressure 106/53 115/72 107/54 O2 Sat by Pulse 100 100 100 Oximetry 07/19/19 07/19/19 07/19/19 03:45 03:52 04:00 Temperature 98.3 F 98.3 F Pulse Rate 77 77 Respiratory 22 Rate Blood Pressure 114/61 O2 Sat by Pulse 100 Oximetry 07/19/19 07/19/19 07/19/19 04:01 04:15 04:30 Temperature Pulse Rate 69 84 70 Respiratory 17 23 18 Rate Blood Pressure 108/60 114/67 97/42 O2 Sat by Pulse 99 98 100 Oximetry 07/19/19 07/19/19 07/19/19 04:45 04:54 05:00 Temperature Pulse Rate 70 67 67 Respiratory 19 20 Rate Blood Pressure 99/47 99/47 90/44 O2 Sat by Pulse 100 100 99 Oximetry 07/19/19 07/19/19 07/19/19 05:15 05:31 05:45 Temperature Pulse Rate 72 85 71 Respiratory 19 23 18 Rate Blood Pressure 99/47 142/77 90/44 O2 Sat by Pulse 100 99 99 Oximetry 07/19/19 07/19/19 07/19/19 06:00 06:15 06:30 Temperature Pulse Rate 66 75 80 Respiratory 19 22 21 Rate Blood Pressure 87/51 145/77 132/66 O2 Sat by Pulse 100 100 99 Oximetry 07/19/19 07/19/19 07/19/19 06:45 07:00 07:15 Temperature Pulse Rate 69 70 70 Respiratory 17 20 17 Rate Blood Pressure 94/50 104/46 91/45 O2 Sat by Pulse 100 100 100 Oximetry 07/19/19 07/19/19 07/19/19 07:30 07:45 08:00 Temperature 98.4 F Pulse Rate 68 72 77 Respiratory 18 19 19 Rate Blood Pressure 97/43 115/56 121/60 O2 Sat by Pulse 100 99 99 Oximetry 07/19/19 07/19/19 07/19/19 08:15 08:30 08:45 Temperature Pulse Rate 72 71 71 Respiratory 20 18 17 Rate Blood Pressure 109/55 100/54 98/49 O2 Sat by Pulse 99 100 100 Oximetry 07/19/19 07/19/19 07/19/19 09:00 09:15 09:30 Temperature Pulse Rate 80 71 74 Respiratory 19 19 17 Rate Blood Pressure 115/62 110/59 92/49 O2 Sat by Pulse 100 100 100 Oximetry 07/19/19 07/19/19 09:45 10:00 Temperature Pulse Rate 69 73 Respiratory 17 18 Rate Blood Pressure 88/45 92/47 O2 Sat by Pulse 100 100 Oximetry Constitutional: no acute distress, comatose Eyes: non-icteric ENT: other (orally intubated not on sedation) Neck: supple Effort: normal Ascultation: Bilateral: clear Gastrointestinal: normoactive bowel sounds, soft, non-tender CBC and BMP: 07/19/19 05:15 07/19/19 05:15 ABG, PT/INR, D-dimer: ABG ABG pH 7.431 pH Units (7.350-7.450) 07/19/19 06:00 ABG pCO2 42.3 mm Hg 07/19/19 06:00 ABG pO2 91.2 mm Hg (80.0-90.0) H 07/19/19 06:00 ABG O2 Saturation 97.3 % (95.0-99.0) 07/19/19 06:00 PT/INR, D-dimer PT 19.8 Sec. (12.2-14.9) H 07/12/19 15:08 INR 1.65 (0.87-1.13) H 07/12/19 15:08 Abnormal lab findings: Abnormal Labs 07/12/19 07/12/19 07/12/19 14:46 15:08 15:08 WBC 14.7 H RBC 2.97 L Hgb 9.7 L Hct 29.0 L MCV 98 H MCH 33 H RDW 19.8 H Plt Count 124 L Seg Neuts % (Manual) 91.0 H Lymphocytes % (Manual) 2.0 L Nucleated RBC % 1.0 H Seg Neutrophils # Man 13.4 H Lymphocytes # (Manual) 0.3 L PT 19.8 H INR 1.65 H APTT 47.8 H ABG pH ABG pO2 ABG HCO3 ABG O2 Saturation ABG Base Excess ABG Hemoglobin Oxyhemoglobin Sodium Potassium Chloride Carbon Dioxide BUN Creatinine Glucose POC Glucose 110 H Calcium Phosphorus Magnesium Iron TIBC Ferritin Total Bilirubin Direct Bilirubin AST Alkaline Phosphatase Lactate Dehydrogenase Troponin T NT-Pro-B Natriuret Pep Total Protein Albumin LDL Cholesterol Direct Urine WBC (Auto) Urine Creatinine Urine Total Protein 07/12/19 07/12/19 07/12/19 15:08 15:08 15:08 WBC RBC Hgb Hct MCV MCH RDW Plt Count Seg Neuts % (Manual) Lymphocytes % (Manual) Nucleated RBC % Seg Neutrophils # Man Lymphocytes # (Manual) PT INR APTT ABG pH ABG pO2 ABG HCO3 ABG O2 Saturation ABG Base Excess ABG Hemoglobin Oxyhemoglobin Sodium 125 L Potassium 5.5 H Chloride 84.9 L Carbon Dioxide 13 L BUN 70 H Creatinine 8.8 H Glucose POC Glucose Calcium 8.0 L Phosphorus Magnesium 1.30 L Iron TIBC Ferritin Total Bilirubin 1.30 H Direct Bilirubin 0.9 H AST 53 H Alkaline Phosphatase 208 H Lactate Dehydrogenase Troponin T 0.192 H* NT-Pro-B Natriuret Pep > 94673 H Total Protein Albumin 3.3 L LDL Cholesterol Direct 40 L Urine WBC (Auto) Urine Creatinine Urine Total Protein 07/12/19 07/13/19 07/13/19 17:04 01:32 01:32 WBC RBC Hgb Hct MCV MCH RDW Plt Count Seg Neuts % (Manual) Lymphocytes % (Manual) Nucleated RBC % Seg Neutrophils # Man Lymphocytes # (Manual) PT INR APTT ABG pH ABG pO2 ABG HCO3 ABG O2 Saturation ABG Base Excess ABG Hemoglobin Oxyhemoglobin Sodium 133 L D Potassium 5.3 H Chloride 90.8 L Carbon Dioxide 20 L D BUN 48 H Creatinine 6.2 H Glucose 105 H POC Glucose Calcium 8.2 L Phosphorus 4.90 H Magnesium 1.50 L Iron TIBC Ferritin Total Bilirubin Direct Bilirubin AST Alkaline Phosphatase Lactate Dehydrogenase Troponin T 0.188 H* NT-Pro-B Natriuret Pep Total Protein Albumin LDL Cholesterol Direct Urine WBC (Auto) Urine Creatinine Urine Total Protein 07/13/19 07/13/19 07/13/19 04:28 04:28 16:16 WBC 15.9 H RBC 3.10 L Hgb 10.2 L Hct 30.6 L MCV 99 H MCH 33 H RDW 19.4 H Plt Count 135 L Seg Neuts % (Manual) Lymphocytes % (Manual) 4.0 L Nucleated RBC % Seg Neutrophils # Man 9.9 H Lymphocytes # (Manual) 0.6 L PT INR APTT ABG pH ABG pO2 ABG HCO3 ABG O2 Saturation ABG Base Excess ABG Hemoglobin Oxyhemoglobin Sodium 132 L 134 L Potassium 5.1 H Chloride 90.3 L 92.2 L Carbon Dioxide 17 L 20 L BUN 47 H 55 H Creatinine 6.0 H 6.5 H Glucose 124 H POC Glucose Calcium 8.2 L 7.9 L Phosphorus Magnesium Iron TIBC Ferritin Total Bilirubin Direct Bilirubin AST Alkaline Phosphatase Lactate Dehydrogenase Troponin T NT-Pro-B Natriuret Pep Total Protein Albumin LDL Cholesterol Direct Urine WBC (Auto) Urine Creatinine Urine Total Protein 07/14/19 07/14/19 07/14/19 07:16 07:16 07:16 WBC RBC 2.65 L Hgb 8.6 L Hct 25.4 L MCV 96 H MCH 33 H RDW 19.7 H Plt Count 114 L Seg Neuts % (Manual) 89.0 H Lymphocytes % (Manual) 4.0 L Nucleated RBC % Seg Neutrophils # Man Lymphocytes # (Manual) 0.3 L PT INR APTT ABG pH ABG pO2 ABG HCO3 ABG O2 Saturation ABG Base Excess ABG Hemoglobin Oxyhemoglobin Sodium 133 L Potassium Chloride 93.0 L Carbon Dioxide 18 L BUN 61 H Creatinine 7.3 H Glucose 113 H POC Glucose Calcium 7.7 L Phosphorus Magnesium Iron TIBC Ferritin Total Bilirubin Direct Bilirubin AST Alkaline Phosphatase Lactate Dehydrogenase 210 H Troponin T NT-Pro-B Natriuret Pep Total Protein Albumin LDL Cholesterol Direct Urine WBC (Auto) Urine Creatinine Urine Total Protein 07/14/19 07/14/19 07/14/19 16:40 17:28 17:28 WBC RBC Hgb Hct MCV MCH RDW Plt Count Seg Neuts % (Manual) Lymphocytes % (Manual) Nucleated RBC % Seg Neutrophils # Man Lymphocytes # (Manual) PT INR APTT ABG pH ABG pO2 ABG HCO3 ABG O2 Saturation ABG Base Excess ABG Hemoglobin Oxyhemoglobin Sodium Potassium Chloride Carbon Dioxide BUN Creatinine Glucose POC Glucose Calcium Phosphorus Magnesium Iron TIBC Ferritin Total Bilirubin Direct Bilirubin AST Alkaline Phosphatase Lactate Dehydrogenase Troponin T NT-Pro-B Natriuret Pep Total Protein Albumin LDL Cholesterol Direct Urine WBC (Auto) 31.0 H Urine Creatinine 104.2 H 106.2 H Urine Total Protein 173 H 07/14/19 07/15/19 07/15/19 20:43 06:30 06:30 WBC RBC 3.06 L Hgb 9.9 L Hct 29.7 L MCV 97 H MCH 33 H RDW 19.5 H Plt Count 101 L Seg Neuts % (Manual) Lymphocytes % (Manual) Nucleated RBC % Seg Neutrophils # Man Lymphocytes # (Manual) PT INR APTT ABG pH ABG pO2 ABG HCO3 ABG O2 Saturation ABG Base Excess ABG Hemoglobin Oxyhemoglobin Sodium Potassium Chloride 95.2 L Carbon Dioxide BUN 42 H Creatinine 4.9 H Glucose POC Glucose 120 H Calcium Phosphorus Magnesium Iron TIBC Ferritin Total Bilirubin Direct Bilirubin AST 50 H Alkaline Phosphatase 191 H Lactate Dehydrogenase Troponin T NT-Pro-B Natriuret Pep Total Protein Albumin 3.1 L LDL Cholesterol Direct Urine WBC (Auto) Urine Creatinine Urine Total Protein 07/15/19 07/15/19 07/15/19 06:30 06:30 12:42 WBC RBC Hgb Hct MCV MCH RDW Plt Count Seg Neuts % (Manual) Lymphocytes % (Manual) Nucleated RBC % Seg Neutrophils # Man Lymphocytes # (Manual) PT INR APTT ABG pH ABG pO2 ABG HCO3 ABG O2 Saturation ABG Base Excess ABG Hemoglobin Oxyhemoglobin Sodium Potassium Chloride Carbon Dioxide BUN Creatinine Glucose POC Glucose 140 H Calcium Phosphorus Magnesium Iron 15 L TIBC 186 L Ferritin 428.2 H Total Bilirubin Direct Bilirubin AST Alkaline Phosphatase Lactate Dehydrogenase Troponin T NT-Pro-B Natriuret Pep Total Protein Albumin LDL Cholesterol Direct Urine WBC (Auto) Urine Creatinine Urine Total Protein 07/16/19 07/16/19 07/17/19 06:19 21:34 05:27 WBC RBC Hgb Hct MCV MCH RDW Plt Count Seg Neuts % (Manual) Lymphocytes % (Manual) Nucleated RBC % Seg Neutrophils # Man Lymphocytes # (Manual) PT INR APTT ABG pH ABG pO2 ABG HCO3 ABG O2 Saturation ABG Base Excess ABG Hemoglobin Oxyhemoglobin Sodium 134 L 134 L 136 L Potassium Chloride 92.9 L 93.4 L 93.6 L Carbon Dioxide 20 L BUN 55 H 40 H 43 H Creatinine 5.6 H 4.4 H 4.8 H Glucose POC Glucose Calcium Phosphorus Magnesium Iron TIBC Ferritin Total Bilirubin Direct Bilirubin AST Alkaline Phosphatase Lactate Dehydrogenase Troponin T NT-Pro-B Natriuret Pep Total Protein Albumin LDL Cholesterol Direct Urine WBC (Auto) Urine Creatinine Urine Total Protein 07/17/19 07/17/19 07/17/19 12:10 12:52 13:50 WBC RBC Hgb Hct MCV MCH RDW Plt Count Seg Neuts % (Manual) Lymphocytes % (Manual) Nucleated RBC % Seg Neutrophils # Man Lymphocytes # (Manual) PT INR APTT ABG pH 7.262 L ABG pO2 195.5 H ABG HCO3 ABG O2 Saturation 99.1 H ABG Base Excess -2.9 L ABG Hemoglobin 8.6 L Oxyhemoglobin Sodium Potassium Chloride Carbon Dioxide BUN Creatinine Glucose POC Glucose 122 H 122 H Calcium Phosphorus Magnesium Iron TIBC Ferritin Total Bilirubin Direct Bilirubin AST Alkaline Phosphatase Lactate Dehydrogenase Troponin T NT-Pro-B Natriuret Pep Total Protein Albumin LDL Cholesterol Direct Urine WBC (Auto) Urine Creatinine Urine Total Protein 07/18/19 07/18/19 07/18/19 04:20 05:40 05:40 WBC 22.7 H RBC 2.64 L Hgb 8.2 L Hct 24.9 L MCV 95 H MCH RDW 19.7 H Plt Count 94 L Seg Neuts % (Manual) Lymphocytes % (Manual) Nucleated RBC % Seg Neutrophils # Man Lymphocytes # (Manual) PT INR APTT ABG pH ABG pO2 238.9 H ABG HCO3 ABG O2 Saturation 99.4 H ABG Base Excess ABG Hemoglobin 10.9 L Oxyhemoglobin Sodium Potassium Chloride 94.5 L Carbon Dioxide BUN 61 H Creatinine 5.6 H Glucose 111 H POC Glucose Calcium Phosphorus 4.70 H Magnesium Iron TIBC Ferritin Total Bilirubin Direct Bilirubin AST Alkaline Phosphatase Lactate Dehydrogenase 294 H Troponin T NT-Pro-B Natriuret Pep Total Protein Albumin LDL Cholesterol Direct Urine WBC (Auto) Urine Creatinine Urine Total Protein 07/18/19 07/18/19 07/19/19 05:40 Unknown 05:15 WBC RBC Hgb Hct MCV MCH RDW Plt Count Seg Neuts % (Manual) Lymphocytes % (Manual) Nucleated RBC % Seg Neutrophils # Man Lymphocytes # (Manual) PT INR APTT ABG pH ABG pO2 ABG HCO3 ABG O2 Saturation ABG Base Excess ABG Hemoglobin 11.6 L Oxyhemoglobin 94.3 L Sodium 133 L Potassium Chloride 94.9 L Carbon Dioxide BUN 43 H Creatinine 4.0 H Glucose 118 H POC Glucose Calcium Phosphorus Magnesium Iron TIBC Ferritin Total Bilirubin Direct Bilirubin 0.7 H AST 94 H Alkaline Phosphatase 159 H Lactate Dehydrogenase Troponin T NT-Pro-B Natriuret Pep Total Protein 5.6 L D Albumin 2.5 L LDL Cholesterol Direct Urine WBC (Auto) Urine Creatinine Urine Total Protein 07/19/19 07/19/19 07/19/19 05:15 05:15 06:00 WBC 14.6 H RBC 2.57 L Hgb 8.2 L Hct 24.3 L MCV 95 H MCH RDW 19.5 H Plt Count 101 L Seg Neuts % (Manual) Lymphocytes % (Manual) Nucleated RBC % Seg Neutrophils # Man Lymphocytes # (Manual) PT INR APTT ABG pH ABG pO2 91.2 H ABG HCO3 27.5 H ABG O2 Saturation ABG Base Excess ABG Hemoglobin 8.3 L Oxyhemoglobin Sodium Potassium Chloride Carbon Dioxide BUN Creatinine Glucose POC Glucose Calcium Phosphorus Magnesium 0.20 L* Iron TIBC Ferritin Total Bilirubin Direct Bilirubin AST Alkaline Phosphatase Lactate Dehydrogenase Troponin T NT-Pro-B Natriuret Pep Total Protein Albumin LDL Cholesterol Direct Urine WBC (Auto) Urine Creatinine Urine Total Protein
[2019-07-19] MEDS: THIAMINE 100 MG in SODIUM CHLORIDE 0.9% 50 ML IV SCH (10:36)
--- NOTE | 2019-07-19 10:49 | Progress Note ---
Assessment and Plan Acute Kidney Injury possibly prerenal/ATN, cardiorenal syndrome, diuretics, ACEI, AIN from NSAIDs, ? underlying CKD process, no obstruction Hyperkalemia High Anion Gap Metabolic Acidosis Acute respiratory failure LLL PNA Anemia Hypomagnesemia S/p Cardiac Arrest Acute on chronic systolic CHF Questionable Anoxic Brain Injury Plan: - S/p HD yesterday for UF and clearance, UF removed 3 liters - No acute indication for HD today - S/p Right femoral Vas catheter placement for STAT HD on 07/12/19 - Assess need for HD on daily basis - Monitor for signs of renal recovery - Epogen dosing for anemia management - Off pressors - Secondary GN and vasculitis work up ordered, so far negative for ANCA, normal complement, negative HCV, HBV, HIV, pending anti-GBM and SHANNA but has rare schisto with elevated LDH, consulted hematology - Vascular surgery consulted to exchange Vas Cath to perm catheter placement - Renal US mentioned moderate ascites, but no hydronephrosis - Neuro consulted for concern of anoxic brain injury, f/u recs - S/p US guided paracentesis with removal of 3200 ml on 07/15/19 - Renally dose medications - [place] Catheter: No - Renal plan d/w Dr Cohn Subjective Date of service: 07/19/19 Principal diagnosis: BRODIE Interval history: Pt intubated in ICU, off levaphed drip at this time, s/p LR Bolus 1 L for hypotension, no family at bedside Objective - Vital Signs Vital signs: Vital Signs - 12hr 07/18/19 07/18/19 07/18/19 23:01 23:15 23:24 Temperature Pulse Rate 76 71 74 Respiratory 20 16 22 Rate Blood Pressure 123/68 111/58 150/81 O2 Sat by Pulse 100 100 99 Oximetry 07/18/19 07/18/19 07/18/19 23:30 23:45 23:48 Temperature 97.9 F Pulse Rate 75 71 Respiratory 20 15 Rate Blood Pressure 129/68 144/75 O2 Sat by Pulse 100 99 Oximetry 07/19/19 07/19/19 07/19/19 00:00 00:15 00:30 Temperature Pulse Rate 78 76 75 Respiratory 23 22 20 Rate Blood Pressure 152/81 156/78 120/71 O2 Sat by Pulse 100 100 100 Oximetry 02/01/20 02/01/20 02/01/20 00:45 00:57 01:00 Temperature Pulse Rate 68 78 77 Respiratory 19 21 Rate Blood Pressure 122/63 138/76 138/76 O2 Sat by Pulse 100 100 100 Oximetry 07/19/19 07/19/19 07/19/19 01:15 01:30 01:45 Temperature Pulse Rate 81 79 73 Respiratory 24 21 20 Rate Blood Pressure 135/72 121/62 119/59 O2 Sat by Pulse 100 100 100 Oximetry 07/19/19 07/19/19 07/19/19 02:01 02:15 02:31 Temperature Pulse Rate 82 79 68 Respiratory 20 23 18 Rate Blood Pressure 114/57 128/67 102/46 O2 Sat by Pulse 100 97 100 Oximetry 07/19/19 07/19/19 07/19/19 02:45 03:00 03:15 Temperature Pulse Rate 71 69 78 Respiratory 20 20 21 Rate Blood Pressure 103/55 106/53 115/72 O2 Sat by Pulse 100 100 100 Oximetry 07/19/19 07/19/19 07/19/19 03:30 03:45 03:52 Temperature 98.3 F Pulse Rate 69 77 Respiratory 17 22 Rate Blood Pressure 107/54 114/61 O2 Sat by Pulse 100 100 Oximetry 07/19/19 07/19/19 07/19/19 04:00 04:01 04:15 Temperature 98.3 F Pulse Rate 77 69 84 Respiratory 17 23 Rate Blood Pressure 108/60 114/67 O2 Sat by Pulse 99 98 Oximetry 07/19/19 07/19/19 07/19/19 04:30 04:45 04:54 Temperature Pulse Rate 70 70 67 Respiratory 18 19 Rate Blood Pressure 97/42 99/47 99/47 O2 Sat by Pulse 100 100 100 Oximetry 07/19/19 07/19/19 07/19/19 05:00 05:15 05:31 Temperature Pulse Rate 67 72 85 Respiratory 20 19 23 Rate Blood Pressure 90/44 99/47 142/77 O2 Sat by Pulse 99 100 99 Oximetry 07/19/19 07/19/19 07/19/19 05:45 06:00 06:15 Temperature Pulse Rate 71 66 75 Respiratory 18 19 22 Rate Blood Pressure 90/44 87/51 145/77 O2 Sat by Pulse 99 100 100 Oximetry 07/19/19 07/19/19 07/19/19 06:30 06:45 07:00 Temperature Pulse Rate 80 69 70 Respiratory 21 17 20 Rate Blood Pressure 132/66 94/50 104/46 O2 Sat by Pulse 99 100 100 Oximetry 07/19/19 07/19/19 07/19/19 07:15 07:30 07:45 Temperature Pulse Rate 70 68 72 Respiratory 17 18 19 Rate Blood Pressure 91/45 97/43 115/56 O2 Sat by Pulse 100 100 99 Oximetry 07/19/19 07/19/19 07/19/19 08:00 08:15 08:30 Temperature 98.4 F Pulse Rate 77 72 71 Respiratory 19 20 18 Rate Blood Pressure 121/60 109/55 100/54 O2 Sat by Pulse 99 99 100 Oximetry 07/19/19 07/19/19 07/19/19 08:45 09:00 09:15 Temperature Pulse Rate 71 80 71 Respiratory 17 19 19 Rate Blood Pressure 98/49 115/62 110/59 O2 Sat by Pulse 100 100 100 Oximetry 07/19/19 07/19/19 07/19/19 09:30 09:45 10:00 Temperature Pulse Rate 74 69 73 Respiratory 17 17 18 Rate Blood Pressure 92/49 88/45 92/47 O2 Sat by Pulse 100 100 100 Oximetry - General Appearance General appearance: intubated EENT: ATNC Neck: no JVD Respiratory: Present: Decreased Breath Sounds (intubated on ventilator) Cardiology: S1S2, other (access: Right femoral Vas Cath intact) Gastrointestinal: normoactive bowel sounds (nasogastric tube intact) Integumentary: warm and dry Neurologic: other (intubated on ventilator) Musculoskeletal: other (1+ edema to BLE) Psychiatric: other (unable to assess) - Lab 07/19/19 05:15 07/19/19 05:15 Most recent lab results ABG pH 7.431 pH Units (7.350-7.450) 07/19/19 06:00 ABG pCO2 42.3 mm Hg 07/19/19 06:00 ABG pO2 91.2 mm Hg (80.0-90.0) H 07/19/19 06:00 ABG HCO3 27.5 mmol/L (20.0-26.0) H 07/19/19 06:00 ABG O2 Saturation 97.3 % (95.0-99.0) 07/19/19 06:00 Calcium 9.0 mg/dL (8.4-10.2) 07/19/19 05:15 Phosphorus 3.10 mg/dL (2.5-4.5) D 07/19/19 05:15 Magnesium 1.70 mg/dL (1.7-2.3) 07/19/19 06:45 Urine Creatinine 106.2 mg/dL (0.1-20.0) H 07/14/19 17:28 Urine Sodium 67 mmol/L 07/14/19 17:28 Urine Total Protein 173 mg/dL (5-11.8) H 07/14/19 16:40 Medications & Allergies - Medications Allergies/Adverse Reactions: Allergies No Known Allergies Allergy (Verified 07/01/19 11:20) Home Medications: Home Medications Medication Instructions Recorded Confirmed Last Taken Type Magnesium Oxide 400 mg PO BIDAC #60 tablet 12/07/16 07/13/19 1 Day Ago Rx ~09/16/17 Thiamine [Vitamin B-1] 100 mg PO QDAY #30 tablet 12/07/16 07/13/19 2 Days Ago Rx ~09/14/17 100 mg Lisinopril [Zestril] 20 mg PO DAILY #30 tablet 09/18/17 07/13/19 Unknown Rx Pantoprazole [Protonix TAB] 40 mg PO BID #60 tablet 09/18/17 07/13/19 Unknown Rx Aspirin [Aspirin BABY CHEW TAB] 81 mg PO QDAY #30 tab.chew 07/05/19 07/13/19 Unknown Rx Furosemide [Lasix TAB] 40 mg PO BID #60 tablet 07/05/19 07/13/19 Unknown Rx Nitroglycerin [Nitrostat] 0.4 mg SL .Q5MIN PRN #10 tablet 07/05/19 07/13/19 Unknown Rx Spironolactone [Aldactone] 12.5 mg PO QDAY #30 tablet 07/05/19 07/13/19 Unknown Rx carvediloL [Coreg] 6.25 mg PO BID #60 tablet 07/05/19 07/13/19 Unknown Rx lisinopriL [Zestril TAB] 20 mg PO QDAY #30 tablet 07/05/19 07/13/19 Unknown Rx Active Medications: Generic Name Dose Route Start Last Admin Trade Name Freq PRN Reason Stop Dose Admin Albuterol 2.5 mg 07/14/19 04:54 07/16/19 13:42 Proventil IH 2.5 mg Q4HRT PRN Administration Shortness Of Breath Lipase/Protease/Amylase 1 each 07/18/19 13:20 Pancreaze 10,500 Unit FEEDTUBE PRN PRN For Clogged Feeding Tube Epoetin Barney 10,000 unit 07/14/19 10:13 07/18/19 22:04 Procrit IV 10,000 unit CHEMA PRN Administration DIALYSIS Haloperidol Lactate 5 mg 07/12/19 21:35 07/12/19 21:09 Haldol IV 5 mg Q1H PRN Administration Unrespon. to mult. doses BZD's Sodium Chloride 100 mls @ 999 mls/hr 07/16/19 12:11 Nacl 0.9% IV CHEMA PRN Hypotension Norepinephrine 8 mg/ Sodium 250 mls @ 3.75 mls/hr 07/17/19 14:00 07/18/19 20:39 Chloride IV 0 mcg/min TITR TERRELL 0 mls/hr Titration Protocol 2 MCG/MIN Vasopressin 20 unit/ Sodium 101 mls @ 9.09 mls/hr 07/17/19 15:00 Chloride IV TITR TERRELL Protocol 0.03 UNITS/MIN Thiamine HCl 100 mg/ Sodium 51 mls @ 100 mls/hr 07/18/19 10:00 07/19/19 10:36 Chloride IV 100 mls/hr QDAY TERRELL Administration Metronidazole 500 mg in 100 mls @ 100 mls/hr 07/17/19 17:00 07/19/19 05:26 Flagyl 500 Mg/100 Ml IV 100 mls/hr Q8HR TERRELL Administration Protocol Cefepime HCl 1 gm in 100 mls @ 200 mls/hr 07/17/19 17:20 07/18/19 17:36 Cefepime/Ns 1 Gm/100 Ml IV 200 mls/hr Q24H TERRELL Administration Lactated Ringer's 1,000 mls @ 999 mls/hr 07/19/19 10:20 07/19/19 10:29 Lactated Ringers IV 07/19/19 11:20 999 mls/hr BOLUS ONE Administration Lansoprazole 30 mg 07/18/19 11:00 07/19/19 10:28 Prevacid Solutab FEEDTUBE 30 mg QDAY TERRELL Administration Simple Syrup 15 ml 01/31/20 13:20 Simple Syrup FEEDTUBE PRN PRN Hypoglycemia Simple Syrup 30 ml 07/18/19 13:20 Simple Syrup FEEDTUBE PRN PRN Hypoglycemia Sodium Bicarbonate 325 mg 07/18/19 13:20 Sodium Bicarbonate FEEDTUBE PRN PRN For Clogged Feeding Tube
--- NOTE | 2019-07-19 10:49 | Progress Note ---
Assessment and Plan 1. Status post cardiopulmonary arrest 2. Respiratory failure on mechanical ventilator 3. Chronic combined systolic and diastolic heart failure 4. Dilated cardiomyopathy 5. Acute renal failure 5. History of colon abuse Patient's intubated sedated. Plan. Patient is currently in a sinus rhythm we will continue supportive cardiac anna isabel. Subjective Date of service: 07/19/19 Principal diagnosis: BRODIE Interval history: Patient is intubated nonverbal or communicative Objective Vital Signs Temp Pulse Resp BP Pulse Ox Pulse Ox 07/19/19 10:00 73 18 92/47 100 07/19/19 09:45 69 17 88/45 100 07/19/19 09:30 74 17 92/49 100 07/19/19 09:15 71 19 110/59 100 07/19/19 09:00 80 19 115/62 100 07/19/19 08:45 71 17 98/49 100 07/19/19 08:30 71 18 100/54 100 07/19/19 08:15 72 20 109/55 99 07/19/19 08:00 98.4 F 77 19 121/60 99 07/19/19 07:45 72 19 115/56 99 07/19/19 07:30 68 18 97/43 100 07/19/19 07:15 70 17 91/45 100 07/19/19 07:00 70 20 104/46 100 07/19/19 06:45 69 17 94/50 100 07/19/19 06:30 80 21 132/66 99 07/19/19 06:15 75 22 145/77 100 07/19/19 06:00 66 19 87/51 100 07/19/19 05:45 71 18 90/44 99 07/19/19 05:31 85 23 142/77 99 07/19/19 05:15 72 19 99/47 100 07/19/19 05:00 67 20 90/44 99 07/19/19 04:54 67 99/47 100 07/19/19 04:45 70 19 99/47 100 07/19/19 04:30 70 18 97/42 100 07/19/19 04:15 84 23 114/67 98 07/19/19 04:01 69 17 108/60 99 07/19/19 04:00 98.3 F 77 07/19/19 03:52 98.3 F 07/19/19 03:45 77 22 114/61 100 07/19/19 03:30 69 17 107/54 100 07/19/19 03:15 78 21 115/72 100 07/19/19 03:00 69 20 106/53 100 07/19/19 02:45 71 20 103/55 100 07/19/19 02:31 68 18 102/46 100 07/19/19 02:15 79 23 128/67 97 07/19/19 02:01 82 20 114/57 100 07/19/19 01:45 73 20 119/59 100 07/19/19 01:30 79 21 121/62 100 07/19/19 01:15 81 24 135/72 100 07/19/19 01:00 77 21 138/76 100 07/19/19 00:57 78 138/76 100 07/19/19 00:45 68 19 122/63 100 07/19/19 00:30 75 20 120/71 100 07/19/19 00:15 76 22 156/78 100 07/19/19 00:00 78 23 152/81 100 07/18/19 23:48 97.9 F 07/18/19 23:45 71 15 144/75 99 07/18/19 23:30 75 20 129/68 100 07/18/19 23:24 74 22 150/81 99 07/18/19 23:15 71 16 111/58 100 07/18/19 23:01 76 20 123/68 100 07/18/19 22:45 93 H 31 H 144/75 100 07/18/19 22:39 67 123/68 100 07/18/19 22:30 77 24 144/75 99 07/18/19 22:15 78 23 150/81 100 07/18/19 22:00 83 24 144/92 100 07/18/19 21:59 98.8 F 85 26 H 144/92 100 07/18/19 21:45 66 22 157/76 100 07/18/19 21:31 88 28 H 148/86 100 07/18/19 21:15 72 22 135/75 100 07/18/19 21:00 70 22 134/70 100 07/18/19 20:45 78 22 129/78 100 07/18/19 20:31 76 25 H 168/86 100 07/18/19 20:30 87 148/86 07/18/19 20:15 65 21 143/72 99 07/18/19 20:00 75 24 146/84 98 07/18/19 19:45 75 24 159/86 100 07/18/19 19:30 69 24 138/79 99 07/18/19 19:15 65 22 138/69 100 07/18/19 19:01 70 23 153/83 100 07/18/19 19:00 70 153/83 07/18/19 18:45 73 21 117/61 100 07/18/19 18:30 98.3 F 63 23 110/59 100 100 07/18/19 18:15 70 20 94/44 100 07/18/19 18:00 68 21 94/44 100 07/18/19 17:45 68 21 84/48 100 07/18/19 17:31 76 22 86/47 100 07/18/19 17:15 70 23 108/53 100 07/18/19 17:00 77 12 101/61 95 07/18/19 16:45 70 25 H 107/53 100 07/18/19 16:30 79 22 110/64 100 07/18/19 16:15 73 23 113/65 100 07/18/19 16:01 70 18 100/55 100 07/18/19 16:00 98.2 F 70 07/18/19 15:58 71 100/55 100 07/18/19 15:45 68 19 88/49 100 07/18/19 15:30 70 25 H 86/53 99 07/18/19 15:15 71 21 95/48 100 07/18/19 15:00 71 22 92/45 99 07/18/19 14:45 73 27 H 92/44 99 07/18/19 14:43 75 92/44 99 07/18/19 14:30 80 33 H 123/62 99 07/18/19 14:15 82 29 H 131/69 99 07/18/19 14:00 104 H 29 H 156/98 99 07/18/19 13:45 80 27 H 134/71 100 07/18/19 13:30 76 30 H 111/66 99 07/18/19 13:15 70 26 H 118/60 100 07/18/19 13:01 80 29 H 140/77 100 07/18/19 13:00 99 07/18/19 12:45 79 28 H 134/72 100 07/18/19 12:30 80 27 H 144/74 100 07/18/19 12:15 102 H 35 H 120/60 100 07/18/19 12:00 98.4 F 74 27 H 120/60 100 07/18/19 11:59 69 120/60 100 07/18/19 11:45 73 24 117/64 100 07/18/19 11:30 74 32 H 122/66 100 07/18/19 11:15 75 25 H 125/67 100 07/18/19 11:00 100 H 27 H 119/66 100 - Physical Examination General: Other (unresponsive on the vent) HEENT: Positive: PERRL, Normocephaly, Mucus Membranes Moist Neck: Positive: trachea midline. Negative: JVD/HJR Cardiac: Positive: Reg Rate and Rhythm, S1/S2, S3, PMI, Dilated, Laterally Displaced Lungs: Positive: clear to auscultation, No Wheeze, Rales, Rhonchi Neuro: Positive: Grossly Intact, No Lateralizing Findings Abdomen: Positive: Unremarkable, Active Bowel Sounds Skin: Positive: Clear Extremities: Absent: edema - Labs and Meds CBC 07/19/19 Range/Units 05:15 WBC 14.6 H (4.5-11.0) K/mm3 RBC 2.57 L (3.65-5.03) M/mm3 Hgb 8.2 L (11.8-15.2) gm/dl Hct 24.3 L (35.5-45.6) % Plt Count 101 L (140-440) K/mm3 Comprehensive Metabolic Panel 07/19/19 Range/Units 05:15 Sodium 133 L (137-145) mmol/L Potassium 3.6 (3.6-5.0) mmol/L Chloride 94.9 L (98-107) mmol/L Carbon Dioxide 24 (22-30) mmol/L BUN 43 H (9-20) mg/dL Creatinine 4.0 H (0.8-1.5) mg/dL Glucose 118 H (75-100) mg/dL Calcium 9.0 (8.4-10.2) mg/dL - Telemetry EKG Rhythm: Sinus Rhythm
--- NOTE | 2019-07-19 11:16 | XRay Report ---
CHEST 1 VIEW INDICATION / CLINICAL INFORMATION: Hypoxemia. COMPARISON: Yesterday at 6:47 PM FINDINGS: SUPPORT DEVICES: Endotracheal tube has been repositioned, now in satisfactory position. Enteric tube courses through the [id number], with tip and sidehole not visualized. HEART / MEDIASTINUM: Stable. LUNGS / PLEURA: Unchanged appearance of the lungs with dense basilar opacities. Upper lungs remain cl ear. No pneumothorax. IMPRESSION: Satisfactory endotracheal tube position. No significant change in the appearance of the lungs. Signer Name: Elmo Ramey MD Signed: 07/19/2019 11:12 AM Workstation Name: [id number]
--- NOTE | 2019-07-19 17:43 | Progress Note ---
Assessment and Plan Assessment and plan: Patient is a 48-year-old man with a history of being deaf (writes to communicate) HTN, Systolic CHF(EF 20%), anxiety, depression COPD and GERD who presented to [facility] ED with severe SOB. EMS found patient to have a pulse oximetry of 80% on room air, improved to 92% on 2 L of supplemental oxygen. Patient was confused and provided limited history. Patient refused BiPAP. Patient given 40 mg of Lasix IV and and EMS gave 40mg iv lasix prior to arrival. Patient was found to have left lower lobe pneumonia, complicated by acute respiratory failure, severe Uremia, hyponatremia, hyperkalemia, metabolic acidosis. Patient admitted to medical floor for medical stabilization and treatment due to high risk for cardiopulmonary and renal decompensation. Nephrology team consulted in ED for urgent dialysis. Patient initiated on pneumonia protocol with IV antibiotic therapy. Patient treated with calcium gluconate and Kayexalate for hyperkalemia in ED. EKG showed no changes. Patient mental status so poor he had to be put in restraints to prevent for pulling and removing O2. Next day, patient remained confused, so He went down for CT head and he must've removed O2 mask while in CT scanner or had a fatal cardiac arrhythmia which he was experiencing NSVT/aflutter with RVR the night before. This led to Cardiac arrest. ED physician was the first to respond and saw Asystole on the monitor, ACLS done and when I arrived he was in PEA. He was a difficult Intubation as he had bleeding in the Endotracheal area due to Eliquis which was started on 07/16/2019. He was intubated by ED physician. Pulse was restored and he was sent to the ICU, where he had another Cardiac arrest with PEA, ACLS done again and pulse restored. Overnight he was posturing. He is comatose without any sedative. * pChest x-ray showed bilateral pleural effusion with significant pulmonary congestion. EKG showed no ST elevation. * Initial Labs: WBC 14.7, hgb 9.7, plt 124, Na 125, k 5.5, co2 13, BUN 70, Cr 8.8 Acute on chronic systolic heart failure decompensation leading to respiratory failure: treated with Ultrafiltration via HD due to severe renal failure, ultrafiltration removed 4 liters Acute hypoxic respiratory failure, refused non-invasive ventilation; therefore, treat with other means, patient noncompliance with wearing O2, pediatric genetic counselor that this will led to his demise, which most likely led to Cardiac arrest Severe ARF, suspected due to ATN, cardiorenal, vasomotor poa: treated with emergent HD, has right groin, daily accessment of HD, d/w nephrology, will need jail HD, referral sent out, stop PPI LLL pneumonia: treat with IV abx, unsure if sirs or sepsis poa, see admitting doctor notes: treat with iv levaquin renal dose, AMS, acute metabolic encephalopathy, poa, thought to be due to severe Uremia, but uremia improved and he still confused, needing restraint, CT head unrevealin g, history of alcohol abuse but not Anemia appears AOCD due to renal dysfunction: continue to monitor cbc Thrombocytopenia: repeat cbc Morbid Obesity, bmi 44.1: pediatric genetic counselor on lifestyle modification Language Barrier/Deafness: communicates via paper New issue 07/16/19, AFlutter with RVR: treat with coreg and Eliquis initiated by Dr. Sadler, New issues 07/16/19 overnight: NSVT full code DVT ppx: scd only Suspect Anoxic brain injury: consulted Neurology Dispo: continue inpatient ICU care spoke with Brother Cheikh [phone] head as patient is not waking up. The other CT head was prior to cardiac arrest. History Interval history: Patient was seen and examined. Follow-up on current diagnosis of ARF, CHF, respiratory failure, still with SOB and low energy. Overnight eventful as patient had posturing and given iv ativan. Patient denies any chest pain, nausea/vomiting or severe headaches. Imaging, nursing note, chart, labs and old chart reviewed. Discussed with patient. Hospitalist Physical - Physical exam Narrative exam: Gen: chronic ill appearing, morbid obese bmi 44.1, mild resp failure, a/o x3 HEENT: significant alopecia, NCAT, EOMI, PERRL, OP Clear Neck: supple, no adenopathy, no thyromegaly, +JVD CVS/Heart: RRR, normal S1S2, pulses present bilaterally Chest/Lungs: diminised bs bilateral, Symmetrical chest expansion, good air entry bilaterally GI/Abdomen: soft, NTND, good bowel sounds, no guarding or rebound /Bladder: no suprapubic tenderness, no CVA or paraspinal tenderness Extermity/Skin: ble leg edema, no obvious rash MSK: FROM x 4 Neuro: CN 2-12 grossly intact, no new focal deficits Psych: calm - Constitutional Vitals: Temp Pulse Resp BP Pulse Ox 99.3 F 83 17 113/62 100 07/19/19 15:29 07/19/19 16:54 07/19/19 16:30 07/19/19 16:54 07/19/19 16:54 General appearance: Present: no acute distress Results - Labs CBC & Chem 7: 07/19/19 05:15 07/19/19 05:15 Labs: Laboratory Last Values WBC 14.6 K/mm3 (4.5-11.0) H 07/19/19 05:15 RBC 2.57 M/mm3 (3.65-5.03) L 07/19/19 05:15 Hgb 8.2 gm/dl (11.8-15.2) L 07/19/19 05:15 Hct 24.3 % (35.5-45.6) L 07/19/19 05:15 MCV 95 fl (84-94) H 07/19/19 05:15 MCH 32 pg (28-32) 07/19/19 05:15 MCHC 34 % (32-34) 07/19/19 05:15 RDW 19.5 % (13.2-15.2) H 07/19/19 05:15 Plt Count 101 K/mm3 (140-440) L 07/19/19 05:15 Lymph % (Auto) Bearing Machine Operator 07/13/19 04:28 Roosevelt % (Auto) Bearing Machine Operator 07/13/19 04:28 Eos % (Auto) Bearing Machine Operator 07/13/19 04:28 Baso % (Auto) Bearing Machine Operator 07/13/19 04:28 Lymph # Bearing Machine Operator 07/13/19 04:28 Roosevelt # Bearing Machine Operator 07/13/19 04:28 Eos # Bearing Machine Operator 07/13/19 04:28 Baso # Bearing Machine Operator 07/13/19 04:28 Add Manual Diff Complete 07/14/19 07:16 Total Counted 100 07/14/19 07:16 Seg Neutrophils % Bearing Machine Operator 07/13/19 04:28 Seg Neuts % (Manual) 89.0 % (40.0-70.0) H 07/14/19 07:16 Band Neutrophils % 0 % 07/14/19 07:16 Lymphocytes % (Manual) 4.0 % (13.4-35.0) L 07/14/19 07:16 Reactive Lymphs % (Man) 0 % 07/14/19 07:16 Monocytes % (Manual) 7.0 % (0.0-7.3) 07/14/19 07:16 Eosinophils % (Manual) 0 % (0.0-4.3) 07/14/19 07:16 Basophils % (Manual) 0 % (0.0-1.8) 07/14/19 07:16 Metamyelocytes % 0 % 07/14/19 07:16 Myelocytes % 0 % 07/14/19 07:16 Promyelocytes % 0 % 07/14/19 07:16 Blast Cells % 0 % 07/14/19 07:16 Nucleated RBC % Not Reportable 07/14/19 07:16 Seg Neutrophils # Bearing Machine Operator 07/13/19 04:28 Seg Neutrophils # Man 7.7 K/mm3 (1.8-7.7) 07/14/19 07:16 Band Neutrophils # 0.0 K/mm3 07/14/19 07:16 Lymphocytes # (Manual) 0.3 K/mm3 (1.2-5.4) L 07/14/19 07:16 Abs React Lymphs (Man) 0.0 K/mm3 07/14/19 07:16 Monocytes # (Manual) 0.6 K/mm3 (0.0-0.8) 07/14/19 07:16 Eosinophils # (Manual) 0.0 K/mm3 (0.0-0.4) 07/14/19 07:16 Basophils # (Manual) 0.0 K/mm3 (0.0-0.1) 07/14/19 07:16 Metamyelocytes # 0.0 K/mm3 07/14/19 07:16 Myelocytes # 0.0 K/mm3 07/14/19 07:16 Promyelocytes # 0.0 K/mm3 07/14/19 07:16 Blast Cells # 0.0 K/mm3 07/14/19 07:16 WBC Morphology Not Reportable 07/14/19 07:16 Hypersegmented Neuts Not Reportable 07/14/19 07:16 Hyposegmented Neuts Not Reportable 07/14/19 07:16 Hypogranular Neuts Not Reportable 07/14/19 07:16 Smudge Cells Not Reportable 07/14/19 07:16 Toxic Granulation Not Reportable 07/14/19 07:16 Toxic Vacuolation Not Reportable 07/14/19 07:16 Dohle Bodies Not Reportable 07/14/19 07:16 Pelger-Huet Anomaly Not Reportable 07/14/19 07:16 Mack Rods Not Reportable 07/14/19 07:16 Platelet Estimate Consistent w auto 07/14/19 07:16 Clumped Platelets Not Reportable 07/14/19 07:16 Plt Clumps, EDTA Not Reportable 07/14/19 07:16 Large Platelets Not Reportable 07/14/19 07:16 Giant Platelets Not Reportable 07/14/19 07:16 Platelet Satelliting Not Reportable 07/14/19 07:16 Plt Morphology Comment Not Reportable 07/14/19 07:16 RBC Morphology Not Reportable 07/14/19 07:16 Dimorphic RBCs Not Reportable 07/14/19 07:16 Polychromasia Not Reportable 07/14/19 07:16 Hypochromasia Not Reportable 07/14/19 07:16 Poikilocytosis Not Reportable 07/14/19 07:16 Anisocytosis 1+ 07/14/19 07:16 Microcytosis Not Reportable 07/14/19 07:16 Macrocytosis Not Reportable 07/14/19 07:16 Spherocytes Not Reportable 07/14/19 07:16 Pappenheimer Bodies Not Reportable 07/14/19 07:16 Sickle Cells Not Reportable 07/14/19 07:16 Target Cells Few 07/14/19 07:16 Tear Drop Cells Not Reportable 07/14/19 07:16 Ovalocytes Not Reportable 07/14/19 07:16 Helmet Cells Not Reportable 07/14/19 07:16 Jackson-Zalma Bodies Not Reportable 07/14/19 07:16 [place] Rings Not Reportable 07/14/19 07:16 Yolis Cells Not Reportable 07/14/19 07:16 Bite Cells Not Reportable 07/14/19 07:16 Crenated Cell Not Reportable 07/14/19 07:16 Elliptocytes Not Reportable 07/14/19 07:16 Acanthocytes (Spur) Not Reportable 07/14/19 07:16 Rouleaux Not Reportable 07/14/19 07:16 Hemoglobin C Crystals Not Reportable 07/14/19 07:16 Schistocytes Not Reportable 07/14/19 07:16 Malaria parasites Not Reportable 07/14/19 07:16 Víctor Bodies Not Reportable 07/14/19 07:16 Hem Pathologist Commnt No 07/14/19 07:16 PT 19.8 Sec. (12.2-14.9) H 07/12/19 15:08 INR 1.65 (0.87-1.13) H 07/12/19 15:08 APTT 47.8 Sec. (24.2-36.6) H 07/12/19 15:08 ABG pH 7.431 pH Units (7.350-7.450) 07/19/19 06:00 ABG pCO2 42.3 mm Hg 07/19/19 06:00 ABG pO2 91.2 mm Hg (80.0-90.0) H 07/19/19 06:00 ABG HCO3 27.5 mmol/L (20.0-26.0) H 07/19/19 06:00 ABG O2 Saturation 97.3 % (95.0-99.0) 07/19/19 06:00 ABG O2 Content 11.2 (0.0-44) 07/19/19 06:00 ABG Base Excess 3.0 mmol/L (-2.0-3.0) 07/19/19 06:00 ABG Hemoglobin 8.3 gm/dl (14.0-18.0) L 07/19/19 06:00 ABG Carboxyhemoglobin 1.7 % (0.0-5.0) 07/19/19 06:00 ABG Methemoglobin 0.5 % (0.0-1.5) 07/19/19 06:00 Oxyhemoglobin 95.1 % (95.0-99.0) 07/19/19 06:00 FiO2 40 % 07/19/19 06:00 Sodium 133 mmol/L (137-145) L 07/19/19 05:15 Potassium 3.6 mmol/L (3.6-5.0) 07/19/19 05:15 Chloride 94.9 mmol/L (98-107) L 07/19/19 05:15 Carbon Dioxide 24 mmol/L (22-30) 07/19/19 05:15 Anion Gap 18 mmol/L 07/19/19 05:15 BUN 43 mg/dL (9-20) H 07/19/19 05:15 Creatinine 4.0 mg/dL (0.8-1.5) H 07/19/19 05:15 Estimated GFR 19 ml/min 07/19/19 05:15 BUN/Creatinine Ratio 11 % 07/19/19 05:15 Glucose 118 mg/dL (75-100) H 07/19/19 05:15 POC Glucose 122 (70-105) H 07/17/19 12:52 Calcium 9.0 mg/dL (8.4-10.2) 07/19/19 05:15 Phosphorus 3.10 mg/dL (2.5-4.5) D 07/19/19 05:15 Magnesium 1.70 mg/dL (1.7-2.3) 07/19/19 06:45 Iron 15 ug/dL (49-181) L 07/15/19 06:30 TIBC 186 mcg/dL (250-450) L 07/15/19 06:30 Ferritin 428.2 ng/mL (13.0-400.0) H 07/15/19 06:30 Total Bilirubin 1.10 mg/dL (0.1-1.2) 07/18/19 05:40 Direct Bilirubin 0.7 mg/dL (0-0.2) H 07/18/19 05:40 Indirect Bilirubin 0.4 mg/dL 07/18/19 05:40 AST 94 units/L (5-40) H 07/18/19 05:40 ALT 16 units/L (7-56) 07/18/19 05:40 Alkaline Phosphatase 159 units/L (35-129) H 07/18/19 05:40 Lactate Dehydrogenase 294 units/L (91-180) H 07/18/19 05:40 Total Creatine Kinase 59 units/L (55-170) 07/14/19 07:16 Troponin T 0.188 ng/mL (0.00-0.029) H* 07/12/19 17:04 NT-Pro-B Natriuret Pep > 44566 pg/mL (0-450) H 07/12/19 15:08 Total Protein 5.6 g/dL (6.3-8.2) L D 07/18/19 05:40 Albumin 2.5 g/dL (3.9-5) L 07/18/19 05:40 Albumin/Globulin Ratio 0.8 % 07/18/19 05:40 Triglycerides 128 mg/dL (2-149) 07/12/19 15:08 Cholesterol 121 mg/dL (50-199) 07/12/19 15:08 LDL Cholesterol Direct 40 mg/dL (50-130) L 07/12/19 15:08 HDL Cholesterol 44 mg/dL (40-59) 07/12/19 15:08 Cholesterol/HDL Ratio 2.75 % 07/12/19 15:08 Urine Color Eugenia (Yellow) 07/14/19 17: Urine Turbidity Slightly-cloudy (Clear) 07/14/19 17: Urine pH 5.0 (5.0-7.0) 07/14/19 17:28 Ur Specific [place]lett 1.014 (1.003-1.030) 07/14/19 17:28 Urine Protein 100 mg/dl mg/dL (Negative) 07/14/19 17:28 Urine Glucose (UA) Neg mg/dL (Negative) 07/14/19 17:28 Urine Ketones Neg mg/dL (Negative) 07/14/19 17:28 Urine Blood Sm (Negative) 07/14/19 17:28 Urine Nitrite Neg (Negative) 07/14/19 17:28 Urine Bilirubin Neg (Negative) 07/14/19 17: Urine Urobilinogen < 2.0 mg/dL (<2.0) 07/14/19 17:28 Ur Leukocyte Esterase Neg (Negative) 07/14/19 17:28 Urine WBC (Auto) 31.0 /HPF (0.0-6.0) H 07/14/19 17:28 Urine RBC (Auto) 3.0 /HPF (0.0-6.0) 07/14/19 17:28 U Epithel Cells (Auto) < 1.0 /HPF (0-13.0) 07/14/19 17:28 Urine Bacteria (Auto) 1+ /HPF (Negative) 07/14/19 17:28 Urine Mucus Few /HPF 07/14/19 17:28 Urine Yeast (Budding) Few /HPF 07/14/19 17:28 Urine Eosinophils Rare seen (None Seen) 07/14/19 17:28 Urine Creatinine 106.2 mg/dL (0.1-20.0) H 07/14/19 17:28 Protein/Creatinin Ratio 1.66 07/14/19 16:40 Urine Sodium 67 mmol/L 07/14/19 17:28 Urine Urea Nitrogen 100 07/14/19 17:28 Urine Total Protein 173 mg/dL (5-11.8) H 07/14/19 16:40 Fluid Type Paracentesis 07/14/19 10:45 Fluid Color Bloody 07/14/19 10:45 Fluid Appearance Bloody 07/14/19 10:45 Fluid WBC 120 /mm3 07/14/19 10:45 Fluid RBC 84791 /mm3 07/14/19 10:45 Fluid Seg Neutrophils 33.0 % 07/14/19 10:45 Fluid Lymphocytes 17.0 % 07/14/19 10:45 Fluid Reactive Lymphs 0 % 07/14/19 10:45 Fluid Monocytes 50.0 % 07/14/19 10:45 Fluid Eosinophils 0 % 07/14/19 10:45 Fluid Basophils 0 % 07/14/19 10:45 Random Vancomycin 14.5 ug/mL (0-40.0) 07/19/19 05:15 Proteinase 3 (PR3) Ab <1.0 AI (<1.0) 07/14/19 11:50 Myeloperoxidase Ab <1.0 AI (<1.0) 07/14/19 11:50 Complement C3 124 mg/dL (82-185) 07/14/19 11:50 Complement C4 28 mg/dL (15-53) 07/14/19 11:50 Hepatitis A IgM Ab Non-reactive (NonReactive) 07/12/19 17:49 Hep Bs Antigen Non-reactive (Negative) 07/14/19 11:50 Hep B Core IgM Ab Non-reactive (NonReactive) 07/12/19 17:49 Hepatitis C Antibody Non-reactive (NonReactive) 07/14/19 11:50 HIV-1 Antibody See scanned result 07/14/19 11:50 HIV-2 Ab (Immunoblot) See scanned result 07/14/19 11:50 Schistocytes Smear Rare 07/18/19 05:40 Active Medications - Current Medications Current Medications: Generic Name Dose Route Start Last Admin Trade Name Freq PRN Reason Stop Dose Admin Albuterol 2.5 mg 07/14/19 04:54 07/16/19 13:42 Proventil IH 2.5 mg Q4HRT PRN Administration Shortness Of Breath Lipase/Protease/Amylase 1 each 07/18/19 13:20 Pancreaze 10,500 Unit FEEDTUBE PRN PRN For Clogged Feeding Tube Epoetin Barney 10,000 unit 07/14/19 10:13 07/18/19 22:04 Procrit IV 10,000 unit CHEMA PRN Administration DIALYSIS Haloperidol Lactate 5 mg 07/12/19 21:35 07/12/19 21:09 Haldol IV 5 mg Q1H PRN Administration Unrespon. to mult. doses BZD's Sodium Chloride 100 mls @ 999 mls/hr 07/16/19 12:11 Nacl 0.9% IV CHEMA PRN Hypotension Norepinephrine 8 mg/ Sodium 250 mls @ 3.75 mls/hr 07/17/19 14:00 07/18/19 20:39 Chloride IV 0 mcg/min TITR TERRELL 0 mls/hr Titration Protocol 2 MCG/MIN Vasopressin 20 unit/ Sodium 101 mls @ 9.09 mls/hr 07/17/19 15:00 Chloride IV TITR TERRELL Protocol 0.03 UNITS/MIN Thiamine HCl 100 mg/ Sodium 51 mls @ 100 mls/hr 07/18/19 10:00 07/19/19 10:36 Chloride IV 100 mls/hr QDAY TERRELL Administration Metronidazole 500 mg in 100 mls @ 100 mls/hr 07/17/19 17:00 07/19/19 14:47 Flagyl 500 Mg/100 Ml IV 100 mls/hr Q8HR TERRELL Administration Protocol Cefepime HCl 1 gm in 100 mls @ 200 mls/hr 07/17/19 17:20 07/18/19 17:36 Cefepime/Ns 1 Gm/100 Ml IV 200 mls/hr Q24H TERRELL Administration Lansoprazole 30 mg 07/18/19 11:00 07/19/19 10:28 Prevacid Solutab FEEDTUBE 30 mg QDAY TERRELL Administration Simple Syrup 15 ml 07/18/19 13:20 Simple Syrup FEEDTUBE PRN PRN Hypoglycemia Simple Syrup 30 ml 07/18/19 13:20 Simple Syrup FEEDTUBE PRN PRN Hypoglycemia Sodium Bicarbonate 325 mg 07/18/19 13:20 Sodium Bicarbonate FEEDTUBE PRN PRN For Clogged Feeding Tube Nutrition/Malnutrition Assess - Dietary Evaluation Nutrition/Malnutrition Findings: Nutrition Notes Start: 07/18/19 12:09 Freq: Status: Active Protocol: Document 07/18/19 12:09 CW (Rec: 07/18/19 12:42 CW [id number]) Co-Sign 07/18/19 12:09 LP Nutrition Notes Need for Assessment generated from: LOS Initial or Follow up Assessment Current Diagnosis Acute Kidney Injury, Hypertension,Heart Failure, Respiratory Failure Other Pertinent Diagnosis on HD , metabolic acidosis, pnuemonia Current Diet no current diet Labs/Tests Reviewed Pertinent Medications Norepinephrine Height 5 ft 10 in Weight 103.4 kg Frederick Body Weight (kg) 75.45 BMI 32.7 Weight Status Obese Subjective/Other Information Screen for LOS. Pt on vent. TF most likely needed. Pt has been eating poorly since adm, approximately 25-50% of meals have been consumed. Per RN, NGT has been placed. Awaiting MYA. okayed TF order. 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 #1 Nutrition Diagnosis Inadequate oral intake Etiology pt on vent As Evidenced by Signs and Symptoms no diet ordered, pt unable to eat when on the vent Is patient on ventilator? Yes Is Patient Ambulatory and/or Out of Bed No REE-([facility]-confined to bed) 2289.768 Kcal/Kg value to use for calculation 17 Approximate Energy Requirements Using 1758 kcal/Kg Calculation Used for Recommendations Kcal/kg Additional Notes Protein needs: 150 g (> 2 g/ kgIBW) Fluid needs: 1000 - 1500 ml ( on HD/ Anuric) Nutrition Intervention Change Diet Order: TF Nutrition Support: Nepro 1.8 at 41 ml/hr. Water flush of 130 ml q4h. Kcal 1,771 Protein (gm) 80 Fluid (mL) 715 Goal #1 Meet at least 75% of protein and energy needs Anticipated Discharge Needs: unble to determine at this time Follow-Up By: 07/21/19 Additional Comments FU TF initiation
--- NOTE | 2019-07-19 18:44 | Cat Scan Report ---
CT head/brain wo con INDICATION / CLINICAL INFORMATION: 48 years Male; Post arrest, unresponsive, concern for anoxia. TECHNIQUE: Routine CT head without contrast. All CT scans at this location are performed using CT dos e reduction for ALARA by means of automated exposure control. COMPARISON: The study is compared to the previous CT of 07/17/2019. FINDINGS: BRAIN / INTRACRANIAL CONTENTS: The motion degrades image quality at. However, there is continued exte nsive cerebral white matter disease most consistent with microvascular angiopathy. The findings most notably involving the posterior cerebrum which extends into the subcortical regions compatible with o ld infarcts at. The findings correlate with the earlier CT. The decreased attenuation along the inferior right temporal occipital region also appears reflect old infarct at. This finding is somewhat more conspicuous on the prior study though this appears related to the motion and averaging artifact at. There is no definitive CT evidence of acute intracranial he morrhage or significant mass effect. There is continued mild cerebral atrophy with associated promine nce of the ventricular system. ORBITS: No significant abnormality of visualized orbits. SINUSES / MASTOIDS: There is extensive opacification and air-fluid levels within the paranasal sinuse s likely related to the presence of the nasogastric tube. CRANIOCERVICAL JUNCTION: No significant abnormality. ADDITIONAL FINDINGS: None. IMPRESSION: 1. The motion degrades image quality at. However, there is continued extensive microvascular angiopat hy as described without clear CT evidence of acute intracranial hemorrhage. Signer Name: José Luis Duncan MD Signed: 07/19/2019 6:40 PM Workstation Name: [id number]
[2019-07-19] MEDS: CEFEPIME/NS 1 GM/100 ML 1 GM/100 ML BAG IV SCH (19:06)
--- NOTE | 2019-07-19 19:41 | Progress Note ---
Subjective Date of service: 07/19/19 Principal diagnosis: BRODIE Interval history: spoke to Dr. Mauricio I exazmioned the patient and went over the CT ingreat detail exam shows deep coma barely responsive eye deviation strongly to the left barely present gaga reflex does ghave minimal respiratory effory when stimulated CT to me show very poor definition in brain stem strongly suggest of anoxia he mispger and eeep white matter really not much to comment on Thanks Objective - Vital Sign Vital Signs - 12hr 07/19/19 07/19/19 07/19/19 07:45 08:00 08:15 Temperature 98.4 F Pulse Rate 72 77 72 Pulse Rate [ From Monitor] Respiratory 19 19 20 Rate Blood Pressure 115/56 121/60 109/55 O2 Sat by Pulse 99 99 99 Oximetry 07/19/19 07/19/19 07/19/19 08:30 08:45 09:00 Temperature Pulse Rate 71 71 80 Pulse Rate [ 78 From Monitor] Respiratory 18 17 19 Rate Blood Pressure 100/54 98/49 115/62 O2 Sat by Pulse 100 100 100 Oximetry 07/19/19 07/19/19 07/19/19 09:15 09:30 09:45 Temperature Pulse Rate 71 74 69 Pulse Rate [ From Monitor] Respiratory 19 17 17 Rate Blood Pressure 110/59 92/49 88/45 O2 Sat by Pulse 100 100 100 Oximetry 07/19/19 07/19/19 07/19/19 10:00 10:15 10:31 Temperature Pulse Rate 73 71 83 Pulse Rate [ From Monitor] Respiratory 18 20 19 Rate Blood Pressure 92/47 88/44 116/63 O2 Sat by Pulse 100 100 100 Oximetry 07/19/19 07/19/19 07/19/19 10:45 11:00 11:15 Temperature Pulse Rate 77 72 77 Pulse Rate [ From Monitor] Respiratory 16 18 20 Rate Blood Pressure 116/63 113/51 117/61 O2 Sat by Pulse 100 100 100 Oximetry 07/19/19 07/19/19 07/19/19 11:30 11:45 12:00 Temperature 99.3 F Pulse Rate 75 70 76 Pulse Rate [ From Monitor] Respiratory 19 18 20 Rate Blood Pressure 114/60 110/58 125/64 O2 Sat by Pulse 100 100 100 Oximetry 07/19/19 07/19/19 07/19/19 12:15 12:30 12:45 Temperature Pulse Rate 79 71 71 Pulse Rate [ From Monitor] Respiratory 21 19 18 Rate Blood Pressure 127/68 101/55 100/55 O2 Sat by Pulse 100 100 100 Oximetry 07/19/19 07/19/19 07/19/19 13:00 13:15 13:30 Temperature Pulse Rate 77 77 73 Pulse Rate [ 73 From Monitor] Respiratory 21 21 19 Rate Blood Pressure 98/49 111/55 125/62 O2 Sat by Pulse 100 100 100 Oximetry 07/19/19 07/19/19 07/19/19 13:45 14:00 14:15 Temperature Pulse Rate 85 84 75 Pulse Rate [ From Monitor] Respiratory 19 17 18 Rate Blood Pressure 132/79 121/73 112/63 O2 Sat by Pulse 100 100 100 Oximetry 07/19/19 07/19/19 07/19/19 14:30 14:45 15:00 Temperature Pulse Rate 72 71 70 Pulse Rate [ From Monitor] Respiratory 18 18 16 Rate Blood Pressure 110/57 112/63 99/50 O2 Sat by Pulse 100 100 100 Oximetry 07/19/19 07/19/19 07/19/19 15:15 15:29 15:30 Temperature 99.3 F Pulse Rate 75 75 Pulse Rate [ From Monitor] Respiratory 17 19 Rate Blood Pressure 110/63 118/62 O2 Sat by Pulse 100 98 Oximetry 07/19/19 07/19/19 07/19/19 15:45 16:00 16:15 Temperature 99.0 F Pulse Rate 71 74 73 Pulse Rate [ From Monitor] Respiratory 16 18 18 Rate Blood Pressure 111/54 108/54 110/56 O2 Sat by Pulse 100 100 100 Oximetry 07/19/19 07/19/19 07/19/19 16:30 16:45 16:54 Temperature Pulse Rate 82 80 83 Pulse Rate [ From Monitor] Respiratory 17 21 Rate Blood Pressure 109/63 113/62 113/62 O2 Sat by Pulse 100 100 100 Oximetry 07/19/19 07/19/19 07/19/19 17:01 17:15 17:30 Temperature Pulse Rate 76 85 82 Pulse Rate [ From Monitor] Respiratory 21 21 17 Rate Blood Pressure 125/61 122/66 109/60 O2 Sat by Pulse 100 100 100 Oximetry 07/19/19 07/19/19 07/19/19 17:45 18:00 18:23 Temperature Pulse Rate 88 80 Pulse Rate [ From Monitor] Respiratory 20 22 Rate Blood Pressure 108/60 99/60 99/60 O2 Sat by Pulse 100 100 99 Oximetry 07/19/19 07/19/19 07/19/19 18:30 18:45 19:00 Temperature Pulse Rate 87 79 Pulse Rate [ From Monitor] Respiratory 24 19 Rate Blood Pressure 114/66 114/66 110/51 O2 Sat by Pulse 100 100 100 Oximetry 07/19/19 07/19/19 19:15 19:30 Temperature Pulse Rate 81 79 Pulse Rate [ From Monitor] Respiratory 18 18 Rate Blood Pressure 117/58 103/57 O2 Sat by Pulse 100 100 Oximetry - Laboratory Findings CBC and BMP: 07/19/19 05:15 07/19/19 05:15 Abnormal Lab Findings: Abnormal Labs 07/12/19 07/12/19 07/12/19 14:46 15:08 15:08 WBC 14.7 H RBC 2.97 L Hgb 9.7 L Hct 29.0 L MCV 98 H MCH 33 H RDW 19.8 H Plt Count 124 L Seg Neuts % (Manual) 91.0 H Lymphocytes % (Manual) 2.0 L Nucleated RBC % 1.0 H Seg Neutrophils # Man 13.4 H Lymphocytes # (Manual) 0.3 L PT 19.8 H INR 1.65 H APTT 47.8 H ABG pH ABG pO2 ABG HCO3 ABG O2 Saturation ABG Base Excess ABG Hemoglobin Oxyhemoglobin Sodium Potassium Chloride Carbon Dioxide BUN Creatinine Glucose POC Glucose 110 H Calcium Phosphorus Magnesium Iron TIBC Ferritin Total Bilirubin Direct Bilirubin AST Alkaline Phosphatase Lactate Dehydrogenase Troponin T NT-Pro-B Natriuret Pep Total Protein Albumin LDL Cholesterol Direct Urine WBC (Auto) Urine Creatinine Urine Total Protein 07/12/19 07/12/19 07/12/19 15:08 15:08 15:08 WBC RBC Hgb Hct MCV MCH RDW Plt Count Seg Neuts % (Manual) Lymphocytes % (Manual) Nucleated RBC % Seg Neutrophils # Man Lymphocytes # (Manual) PT INR APTT ABG pH ABG pO2 ABG HCO3 ABG O2 Saturation ABG Base Excess ABG Hemoglobin Oxyhemoglobin Sodium 125 L Potassium 5.5 H Chloride 84.9 L Carbon Dioxide 13 L BUN 70 H Creatinine 8.8 H Glucose POC Glucose Calcium 8.0 L Phosphorus Magnesium 1.30 L Iron TIBC Ferritin Total Bilirubin 1.30 H Direct Bilirubin 0.9 H AST 53 H Alkaline Phosphatase 208 H Lactate Dehydrogenase Troponin T 0.192 H* NT-Pro-B Natriuret Pep > 34067 H Total Protein Albumin 3.3 L LDL Cholesterol Direct 40 L Urine WBC (Auto) Urine Creatinine Urine Total Protein 07/12/19 07/13/19 07/13/19 17:04 01:32 01:32 WBC RBC Hgb Hct MCV MCH RDW Plt Count Seg Neuts % (Manual) Lymphocytes % (Manual) Nucleated RBC % Seg Neutrophils # Man Lymphocytes # (Manual) PT INR APTT ABG pH ABG pO2 ABG HCO3 ABG O2 Saturation ABG Base Excess ABG Hemoglobin Oxyhemoglobin Sodium 133 L D Potassium 5.3 H Chloride 90.8 L Carbon Dioxide 20 L D BUN 48 H Creatinine 6.2 H Glucose 105 H POC Glucose Calcium 8.2 L Phosphorus 4.90 H Magnesium 1.50 L Iron TIBC Ferritin Total Bilirubin Direct Bilirubin AST Alkaline Phosphatase Lactate Dehydrogenase Troponin T 0.188 H* NT-Pro-B Natriuret Pep Total Protein Albumin LDL Cholesterol Direct Urine WBC (Auto) Urine Creatinine Urine Total Protein 07/13/19 07/13/19 07/13/19 04:28 04:28 16:16 WBC 15.9 H RBC 3.10 L Hgb 10.2 L Hct 30.6 L MCV 99 H MCH 33 H RDW 19.4 H Plt Count 135 L Seg Neuts % (Manual) Lymphocytes % (Manual) 4.0 L Nucleated RBC % Seg Neutrophils # Man 9.9 H Lymphocytes # (Manual) 0.6 L PT INR APTT ABG pH ABG pO2 ABG HCO3 ABG O2 Saturation ABG Base Excess ABG Hemoglobin Oxyhemoglobin Sodium 132 L 134 L Potassium 5.1 H Chloride 90.3 L 92.2 L Carbon Dioxide 17 L 20 L BUN 47 H 55 H Creatinine 6.0 H 6.5 H Glucose 124 H POC Glucose Calcium 8.2 L 7.9 L Phosphorus Magnesium Iron TIBC Ferritin Total Bilirubin Direct Bilirubin AST Alkaline Phosphatase Lactate Dehydrogenase Troponin T NT-Pro-B Natriuret Pep Total Protein Albumin LDL Cholesterol Direct Urine WBC (Auto) Urine Creatinine Urine Total Protein 07/14/19 07/14/19 07/14/19 07:16 07:16 07:16 WBC RBC 2.65 L Hgb 8.6 L Hct 25.4 L MCV 96 H MCH 33 H RDW 19.7 H Plt Count 114 L Seg Neuts % (Manual) 89.0 H Lymphocytes % (Manual) 4.0 L Nucleated RBC % Seg Neutrophils # Man Lymphocytes # (Manual) 0.3 L PT INR APTT ABG pH ABG pO2 ABG HCO3 ABG O2 Saturation ABG Base Excess ABG Hemoglobin Oxyhemoglobin Sodium 133 L Potassium Chloride 93.0 L Carbon Dioxide 18 L BUN 61 H Creatinine 7.3 H Glucose 113 H POC Glucose Calcium 7.7 L Phosphorus Magnesium Iron TIBC Ferritin Total Bilirubin Direct Bilirubin AST Alkaline Phosphatase Lactate Dehydrogenase 210 H Troponin T NT-Pro-B Natriuret Pep Total Protein Albumin LDL Cholesterol Direct Urine WBC (Auto) Urine Creatinine Urine Total Protein 07/14/19 07/14/19 07/14/19 16:40 17:28 17:28 WBC RBC Hgb Hct MCV MCH RDW Plt Count Seg Neuts % (Manual) Lymphocytes % (Manual) Nucleated RBC % Seg Neutrophils # Man Lymphocytes # (Manual) PT INR APTT ABG pH ABG pO2 ABG HCO3 ABG O2 Saturation ABG Base Excess ABG Hemoglobin Oxyhemoglobin Sodium Potassium Chloride Carbon Dioxide BUN Creatinine Glucose POC Glucose Calcium Phosphorus Magnesium Iron TIBC Ferritin Total Bilirubin Direct Bilirubin AST Alkaline Phosphatase Lactate Dehydrogenase Troponin T NT-Pro-B Natriuret Pep Total Protein Albumin LDL Cholesterol Direct Urine WBC (Auto) 31.0 H Urine Creatinine 104.2 H 106.2 H Urine Total Protein 173 H 07/14/19 07/15/19 07/15/19 20:43 06:30 06:30 WBC RBC 3.06 L Hgb 9.9 L Hct 29.7 L MCV 97 H MCH 33 H RDW 19.5 H Plt Count 101 L Seg Neuts % (Manual) Lymphocytes % (Manual) Nucleated RBC % Seg Neutrophils # Man Lymphocytes # (Manual) PT INR APTT ABG pH ABG pO2 ABG HCO3 ABG O2 Saturation ABG Base Excess ABG Hemoglobin Oxyhemoglobin Sodium Potassium Chloride 95.2 L Carbon Dioxide BUN 42 H Creatinine 4.9 H Glucose POC Glucose 120 H Calcium Phosphorus Magnesium Iron TIBC Ferritin Total Bilirubin Direct Bilirubin AST 50 H Alkaline Phosphatase 191 H Lactate Dehydrogenase Troponin T NT-Pro-B Natriuret Pep Total Protein Albumin 3.1 L LDL Cholesterol Direct Urine WBC (Auto) Urine Creatinine Urine Total Protein 07/15/19 07/15/19 07/15/19 06:30 06:30 12:42 WBC RBC Hgb Hct MCV MCH RDW Plt Count Seg Neuts % (Manual) Lymphocytes % (Manual) Nucleated RBC % Seg Neutrophils # Man Lymphocytes # (Manual) PT INR APTT ABG pH ABG pO2 ABG HCO3 ABG O2 Saturation ABG Base Excess ABG Hemoglobin Oxyhemoglobin Sodium Potassium Chloride Carbon Dioxide BUN Creatinine Glucose POC Glucose 140 H Calcium Phosphorus Magnesium Iron 15 L TIBC 186 L Ferritin 428.2 H Total Bilirubin Direct Bilirubin AST Alkaline Phosphatase Lactate Dehydrogenase Troponin T NT-Pro-B Natriuret Pep Total Protein Albumin LDL Cholesterol Direct Urine WBC (Auto) Urine Creatinine Urine Total Protein 07/16/19 07/16/19 07/17/19 06:19 21:34 05:27 WBC RBC Hgb Hct MCV MCH RDW Plt Count Seg Neuts % (Manual) Lymphocytes % (Manual) Nucleated RBC % Seg Neutrophils # Man Lymphocytes # (Manual) PT INR APTT ABG pH ABG pO2 ABG HCO3 ABG O2 Saturation ABG Base Excess ABG Hemoglobin Oxyhemoglobin Sodium 134 L 134 L 136 L Potassium Chloride 92.9 L 93.4 L 93.6 L Carbon Dioxide 20 L BUN 55 H 40 H 43 H Creatinine 5.6 H 4.4 H 4.8 H Glucose POC Glucose Calcium Phosphorus Magnesium Iron TIBC Ferritin Total Bilirubin Direct Bilirubin AST Alkaline Phosphatase Lactate Dehydrogenase Troponin T NT-Pro-B Natriuret Pep Total Protein Albumin LDL Cholesterol Direct Urine WBC (Auto) Urine Creatinine Urine Total Protein 07/17/19 07/17/19 07/17/19 12:10 12:52 13:50 WBC RBC Hgb Hct MCV MCH RDW Plt Count Seg Neuts % (Manual) Lymphocytes % (Manual) Nucleated RBC % Seg Neutrophils # Man Lymphocytes # (Manual) PT INR APTT ABG pH 7.262 L ABG pO2 195.5 H ABG HCO3 ABG O2 Saturation 99.1 H ABG Base Excess -2.9 L ABG Hemoglobin 8.6 L Oxyhemoglobin Sodium Potassium Chloride Carbon Dioxide BUN Creatinine Glucose POC Glucose 122 H 122 H Calcium Phosphorus Magnesium Iron TIBC Ferritin Total Bilirubin Direct Bilirubin AST Alkaline Phosphatase Lactate Dehydrogenase Troponin T NT-Pro-B Natriuret Pep Total Protein Albumin LDL Cholesterol Direct Urine WBC (Auto) Urine Creatinine Urine Total Protein 07/18/19 07/18/19 07/18/19 04:20 05:40 05:40 WBC 22.7 H RBC 2.64 L Hgb 8.2 L Hct 24.9 L MCV 95 H MCH RDW 19.7 H Plt Count 94 L Seg Neuts % (Manual) Lymphocytes % (Manual) Nucleated RBC % Seg Neutrophils # Man Lymphocytes # (Manual) PT INR APTT ABG pH ABG pO2 238.9 H ABG HCO3 ABG O2 Saturation 99.4 H ABG Base Excess ABG Hemoglobin 10.9 L Oxyhemoglobin Sodium Potassium Chloride 94.5 L Carbon Dioxide BUN 61 H Creatinine 5.6 H Glucose 111 H POC Glucose Calcium Phosphorus 4.70 H Magnesium Iron TIBC Ferritin Total Bilirubin Direct Bilirubin AST Alkaline Phosphatase Lactate Dehydrogenase 294 H Troponin T NT-Pro-B Natriuret Pep Total Protein Albumin LDL Cholesterol Direct Urine WBC (Auto) Urine Creatinine Urine Total Protein 07/18/19 07/18/19 07/19/19 05:40 Unknown 05:15 WBC RBC Hgb Hct MCV MCH RDW Plt Count Seg Neuts % (Manual) Lymphocytes % (Manual) Nucleated RBC % Seg Neutrophils # Man Lymphocytes # (Manual) PT INR APTT ABG pH ABG pO2 ABG HCO3 ABG O2 Saturation ABG Base Excess ABG Hemoglobin 11.6 L Oxyhemoglobin 94.3 L Sodium 133 L Potassium Chloride 94.9 L Carbon Dioxide BUN 43 H Creatinine 4.0 H Glucose 118 H POC Glucose Calcium Phosphorus Magnesium Iron TIBC Ferritin Total Bilirubin Direct Bilirubin 0.7 H AST 94 H Alkaline Phosphatase 159 H Lactate Dehydrogenase Troponin T NT-Pro-B Natriuret Pep Total Protein 5.6 L D Albumin 2.5 L LDL Cholesterol Direct Urine WBC (Auto) Urine Creatinine Urine Total Protein 07/19/19 07/19/19 07/19/19 05:15 05:15 06:00 WBC 14.6 H RBC 2.57 L Hgb 8.2 L Hct 24.3 L MCV 95 H MCH RDW 19.5 H Plt Count 101 L Seg Neuts % (Manual) Lymphocytes % (Manual) Nucleated RBC % Seg Neutrophils # Man Lymphocytes # (Manual) PT INR APTT ABG pH ABG pO2 91.2 H ABG HCO3 27.5 H ABG O2 Saturation ABG Base Excess ABG Hemoglobin 8.3 L Oxyhemoglobin Sodium Potassium Chloride Carbon Dioxide BUN Creatinine Glucose POC Glucose Calcium Phosphorus Magnesium 0.20 L* Iron TIBC Ferritin Total Bilirubin Direct Bilirubin AST Alkaline Phosphatase Lactate Dehydrogenase Troponin T NT-Pro-B Natriuret Pep Total Protein Albumin LDL Cholesterol Direct Urine WBC (Auto) Urine Creatinine Urine Total Protein
[2019-07-20] MEDS: metroNIDAZOLE/NS 500 MG/100 ML 500 MG/100 ML BAG IV SCH ×3 (06:12→22:22)
[2019-07-20 07:44] LABS: Calcium 8.8 mg/dL (8.4-10.2)
[2019-07-20] MEDS: LANSOPRAZOLE 30 MG SOLUTAB FEEDTUBE SCH (10:07)
[2019-07-20] MEDS: THIAMINE 100 MG in SODIUM CHLORIDE 0.9% 50 ML IV SCH (10:07)
--- NOTE | 2019-07-20 10:16 | Progress Note ---
Assessment and Plan 48 y/o male with inhouse cardiac arrest x2 1. Ok with fecal management system. 2. No sedation 3. Will continue PSV trials as tolerated 4. Needs EEG to rule out seizure activity. Will order, likely will not get done tomorrow. 5. Overall prognosis is guarded to poor. CCT 31 minutes. Subjective Date of service: 07/20/19 Principal diagnosis: BRODIE Interval history: No acute events. Per nursing required a fecal management system last night. No fever. Continues to have eye deviation. Objective Vital Signs - 12hr 07/19/19 07/19/19 07/19/19 22:15 22:30 22:45 Temperature Pulse Rate 83 81 86 Pulse Rate [ From Monitor] Respiratory 21 17 15 Rate Blood Pressure 108/63 104/56 104/56 O2 Sat by Pulse 100 98 97 Oximetry 07/19/19 07/19/19 07/19/19 22:58 23:00 23:15 Temperature Pulse Rate 78 75 83 Pulse Rate [ From Monitor] Respiratory 16 20 21 Rate Blood Pressure 129/74 116/56 114/65 O2 Sat by Pulse 97 97 100 Oximetry 07/19/19 07/19/19 07/20/19 23:30 23:45 00:00 Temperature 97.6 F Pulse Rate 85 83 83 Pulse Rate [ From Monitor] Respiratory 18 19 Rate Blood Pressure 109/62 105/56 O2 Sat by Pulse 100 100 100 Oximetry 07/20/19 07/20/19 07/20/19 00:01 00:15 00:30 Temperature Pulse Rate 92 H 87 88 Pulse Rate [ From Monitor] Respiratory 28 H 21 20 Rate Blood Pressure 135/86 107/64 110/61 O2 Sat by Pulse 100 100 100 Oximetry 07/20/19 07/20/19 07/20/19 00:45 01:00 01:15 Temperature Pulse Rate 87 88 97 H Pulse Rate [ From Monitor] Respiratory 21 19 25 H Rate Blood Pressure 108/57 115/63 137/84 O2 Sat by Pulse 100 100 100 Oximetry 07/20/19 07/20/19 07/20/19 01:30 01:45 02:00 Temperature Pulse Rate 88 87 85 Pulse Rate [ From Monitor] Respiratory 21 21 21 Rate Blood Pressure 107/65 110/62 107/59 O2 Sat by Pulse 100 100 100 Oximetry 07/20/19 07/20/19 07/20/19 02:30 03:00 03:30 Temperature Pulse Rate 83 84 83 Pulse Rate [ From Monitor] Respiratory 20 21 19 Rate Blood Pressure 109/57 104/55 104/58 O2 Sat by Pulse 100 100 100 Oximetry 07/20/19 07/20/19 07/20/19 04:00 04:30 05:00 Temperature 98.3 F Pulse Rate 87 92 H 92 H Pulse Rate [ From Monitor] Respiratory 22 20 16 Rate Blood Pressure 121/70 118/71 109/65 O2 Sat by Pulse 100 100 99 Oximetry 07/20/19 07/20/19 07/20/19 05:30 06:00 06:30 Temperature Pulse Rate 95 H 93 H 87 Pulse Rate [ From Monitor] Respiratory 23 21 21 Rate Blood Pressure 116/69 116/66 116/70 O2 Sat by Pulse 100 100 100 Oximetry 07/20/19 07/20/19 07/20/19 07:00 07:20 07:30 Temperature Pulse Rate 96 H 87 85 Pulse Rate [ From Monitor] Respiratory 21 15 Rate Blood Pressure 132/71 124/65 118/67 O2 Sat by Pulse 100 100 100 Oximetry 07/20/19 07/20/19 07/20/19 08:00 08:30 09:00 Temperature 98.5 F Pulse Rate 88 87 89 Pulse Rate [ 73 From Monitor] Respiratory 19 20 20 Rate Blood Pressure 123/65 120/64 127/70 O2 Sat by Pulse 100 100 100 Oximetry Constitutional: no acute distress, comatose Eyes: non-icteric ENT: other (orally intubated not on sedation) Neck: supple Effort: normal Ascultation: Bilateral: clear Gastrointestinal: normoactive bowel sounds, soft, non-tender CBC and BMP: 07/19/19 05:15 07/20/19 06:15 ABG, PT/INR, D-dimer: ABG ABG pH 7.431 pH Units (7.350-7.450) 07/19/19 06:00 ABG pCO2 42.3 mm Hg 07/19/19 06:00 ABG pO2 91.2 mm Hg (80.0-90.0) H 07/19/19 06:00 ABG O2 Saturation 97.3 % (95.0-99.0) 07/19/19 06:00 PT/INR, D-dimer PT 19.8 Sec. (12.2-14.9) H 07/12/19 15:08 INR 1.65 (0.87-1.13) H 07/12/19 15:08 Abnormal lab findings: Abnormal Labs 07/12/19 07/12/19 07/12/19 14:46 15:08 15:08 WBC 14.7 H RBC 2.97 L Hgb 9.7 L Hct 29.0 L MCV 98 H MCH 33 H RDW 19.8 H Plt Count 124 L Seg Neuts % (Manual) 91.0 H Lymphocytes % (Manual) 2.0 L Nucleated RBC % 1.0 H Seg Neutrophils # Man 13.4 H Lymphocytes # (Manual) 0.3 L PT 19.8 H INR 1.65 H APTT 47.8 H ABG pH ABG pO2 ABG HCO3 ABG O2 Saturation ABG Base Excess ABG Hemoglobin Oxyhemoglobin Sodium Potassium Chloride Carbon Dioxide BUN Creatinine Glucose POC Glucose 110 H Calcium Phosphorus Magnesium Iron TIBC Ferritin Total Bilirubin Direct Bilirubin AST Alkaline Phosphatase Lactate Dehydrogenase Troponin T NT-Pro-B Natriuret Pep Total Protein Albumin LDL Cholesterol Direct Urine WBC (Auto) Urine Creatinine Urine Total Protein 07/12/19 07/12/19 07/12/19 15:08 15:08 15:08 WBC RBC Hgb Hct MCV MCH RDW Plt Count Seg Neuts % (Manual) Lymphocytes % (Manual) Nucleated RBC % Seg Neutrophils # Man Lymphocytes # (Manual) PT INR APTT ABG pH ABG pO2 ABG HCO3 ABG O2 Saturation ABG Base Excess ABG Hemoglobin Oxyhemoglobin Sodium 125 L Potassium 5.5 H Chloride 84.9 L Carbon Dioxide 13 L BUN 70 H Creatinine 8.8 H Glucose POC Glucose Calcium 8.0 L Phosphorus Magnesium 1.30 L Iron TIBC Ferritin Total Bilirubin 1.30 H Direct Bilirubin 0.9 H AST 53 H Alkaline Phosphatase 208 H Lactate Dehydrogenase Troponin T 0.192 H* NT-Pro-B Natriuret Pep > 38442 H Total Protein Albumin 3.3 L LDL Cholesterol Direct 40 L Urine WBC (Auto) Urine Creatinine Urine Total Protein 07/12/19 07/13/19 07/13/19 17:04 01:32 01:32 WBC RBC Hgb Hct MCV MCH RDW Plt Count Seg Neuts % (Manual) Lymphocytes % (Manual) Nucleated RBC % Seg Neutrophils # Man Lymphocytes # (Manual) PT INR APTT ABG pH ABG pO2 ABG HCO3 ABG O2 Saturation ABG Base Excess ABG Hemoglobin Oxyhemoglobin Sodium 133 L D Potassium 5.3 H Chloride 90.8 L Carbon Dioxide 20 L D BUN 48 H Creatinine 6.2 H Glucose 105 H POC Glucose Calcium 8.2 L Phosphorus 4.90 H Magnesium 1.50 L Iron TIBC Ferritin Total Bilirubin Direct Bilirubin AST Alkaline Phosphatase Lactate Dehydrogenase Troponin T 0.188 H* NT-Pro-B Natriuret Pep Total Protein Albumin LDL Cholesterol Direct Urine WBC (Auto) Urine Creatinine Urine Total Protein 07/13/19 07/13/19 07/13/19 04:28 04:28 16:16 WBC 15.9 H RBC 3.10 L Hgb 10.2 L Hct 30.6 L MCV 99 H MCH 33 H RDW 19.4 H Plt Count 135 L Seg Neuts % (Manual) Lymphocytes % (Manual) 4.0 L Nucleated RBC % Seg Neutrophils # Man 9.9 H Lymphocytes # (Manual) 0.6 L PT INR APTT ABG pH ABG pO2 ABG HCO3 ABG O2 Saturation ABG Base Excess ABG Hemoglobin Oxyhemoglobin Sodium 132 L 134 L Potassium 5.1 H Chloride 90.3 L 92.2 L Carbon Dioxide 17 L 20 L BUN 47 H 55 H Creatinine 6.0 H 6.5 H Glucose 124 H POC Glucose Calcium 8.2 L 7.9 L Phosphorus Magnesium Iron TIBC Ferritin Total Bilirubin Direct Bilirubin AST Alkaline Phosphatase Lactate Dehydrogenase Troponin T NT-Pro-B Natriuret Pep Total Protein Albumin LDL Cholesterol Direct Urine WBC (Auto) Urine Creatinine Urine Total Protein 07/14/19 07/14/19 07/14/19 07:16 07:16 07:16 WBC RBC 2.65 L Hgb 8.6 L Hct 25.4 L MCV 96 H MCH 33 H RDW 19.7 H Plt Count 114 L Seg Neuts % (Manual) 89.0 H Lymphocytes % (Manual) 4.0 L Nucleated RBC % Seg Neutrophils # Man Lymphocytes # (Manual) 0.3 L PT INR APTT ABG pH ABG pO2 ABG HCO3 ABG O2 Saturation ABG Base Excess ABG Hemoglobin Oxyhemoglobin Sodium 133 L Potassium Chloride 93.0 L Carbon Dioxide 18 L BUN 61 H Creatinine 7.3 H Glucose 113 H POC Glucose Calcium 7.7 L Phosphorus Magnesium Iron TIBC Ferritin Total Bilirubin Direct Bilirubin AST Alkaline Phosphatase Lactate Dehydrogenase 210 H Troponin T NT-Pro-B Natriuret Pep Total Protein Albumin LDL Cholesterol Direct Urine WBC (Auto) Urine Creatinine Urine Total Protein 07/14/19 07/14/19 07/14/19 16:40 17:28 17:28 WBC RBC Hgb Hct MCV MCH RDW Plt Count Seg Neuts % (Manual) Lymphocytes % (Manual) Nucleated RBC % Seg Neutrophils # Man Lymphocytes # (Manual) PT INR APTT ABG pH ABG pO2 ABG HCO3 ABG O2 Saturation ABG Base Excess ABG Hemoglobin Oxyhemoglobin Sodium Potassium Chloride Carbon Dioxide BUN Creatinine Glucose POC Glucose Calcium Phosphorus Magnesium Iron TIBC Ferritin Total Bilirubin Direct Bilirubin AST Alkaline Phosphatase Lactate Dehydrogenase Troponin T NT-Pro-B Natriuret Pep Total Protein Albumin LDL Cholesterol Direct Urine WBC (Auto) 31.0 H Urine Creatinine 104.2 H 106.2 H Urine Total Protein 173 H 07/14/19 07/15/19 07/15/19 20:43 06:30 06:30 WBC RBC 3.06 L Hgb 9.9 L Hct 29.7 L MCV 97 H MCH 33 H RDW 19.5 H Plt Count 101 L Seg Neuts % (Manual) Lymphocytes % (Manual) Nucleated RBC % Seg Neutrophils # Man Lymphocytes # (Manual) PT INR APTT ABG pH ABG pO2 ABG HCO3 ABG O2 Saturation ABG Base Excess ABG Hemoglobin Oxyhemoglobin Sodium Potassium Chloride 95.2 L Carbon Dioxide BUN 42 H Creatinine 4.9 H Glucose POC Glucose 120 H Calcium Phosphorus Magnesium Iron TIBC Ferritin Total Bilirubin Direct Bilirubin AST 50 H Alkaline Phosphatase 191 H Lactate Dehydrogenase Troponin T NT-Pro-B Natriuret Pep Total Protein Albumin 3.1 L LDL Cholesterol Direct Urine WBC (Auto) Urine Creatinine Urine Total Protein 07/15/19 07/15/19 07/15/19 06:30 06:30 12:42 WBC RBC Hgb Hct MCV MCH RDW Plt Count Seg Neuts % (Manual) Lymphocytes % (Manual) Nucleated RBC % Seg Neutrophils # Man Lymphocytes # (Manual) PT INR APTT ABG pH ABG pO2 ABG HCO3 ABG O2 Saturation ABG Base Excess ABG Hemoglobin Oxyhemoglobin Sodium Potassium Chloride Carbon Dioxide BUN Creatinine Glucose POC Glucose 140 H Calcium Phosphorus Magnesium Iron 15 L TIBC 186 L Ferritin 428.2 H Total Bilirubin Direct Bilirubin AST Alkaline Phosphatase Lactate Dehydrogenase Troponin T NT-Pro-B Natriuret Pep Total Protein Albumin LDL Cholesterol Direct Urine WBC (Auto) Urine Creatinine Urine Total Protein 07/16/19 07/16/19 07/17/19 06:19 21:34 05:27 WBC RBC Hgb Hct MCV MCH RDW Plt Count Seg Neuts % (Manual) Lymphocytes % (Manual) Nucleated RBC % Seg Neutrophils # Man Lymphocytes # (Manual) PT INR APTT ABG pH ABG pO2 ABG HCO3 ABG O2 Saturation ABG Base Excess ABG Hemoglobin Oxyhemoglobin Sodium 134 L 134 L 136 L Potassium Chloride 92.9 L 93.4 L 93.6 L Carbon Dioxide 20 L BUN 55 H 40 H 43 H Creatinine 5.6 H 4.4 H 4.8 H Glucose POC Glucose Calcium Phosphorus Magnesium Iron TIBC Ferritin Total Bilirubin Direct Bilirubin AST Alkaline Phosphatase Lactate Dehydrogenase Troponin T NT-Pro-B Natriuret Pep Total Protein Albumin LDL Cholesterol Direct Urine WBC (Auto) Urine Creatinine Urine Total Protein 07/17/19 07/17/19 07/17/19 12:10 12:52 13:50 WBC RBC Hgb Hct MCV MCH RDW Plt Count Seg Neuts % (Manual) Lymphocytes % (Manual) Nucleated RBC % Seg Neutrophils # Man Lymphocytes # (Manual) PT INR APTT ABG pH 7.262 L ABG pO2 195.5 H ABG HCO3 ABG O2 Saturation 99.1 H ABG Base Excess -2.9 L ABG Hemoglobin 8.6 L Oxyhemoglobin Sodium Potassium Chloride Carbon Dioxide BUN Creatinine Glucose POC Glucose 122 H 122 H Calcium Phosphorus Magnesium Iron TIBC Ferritin Total Bilirubin Direct Bilirubin AST Alkaline Phosphatase Lactate Dehydrogenase Troponin T NT-Pro-B Natriuret Pep Total Protein Albumin LDL Cholesterol Direct Urine WBC (Auto) Urine Creatinine Urine Total Protein 07/18/19 07/18/19 07/18/19 04:20 05:40 05:40 WBC 22.7 H RBC 2.64 L Hgb 8.2 L Hct 24.9 L MCV 95 H MCH RDW 19.7 H Plt Count 94 L Seg Neuts % (Manual) Lymphocytes % (Manual) Nucleated RBC % Seg Neutrophils # Man Lymphocytes # (Manual) PT INR APTT ABG pH ABG pO2 238.9 H ABG HCO3 ABG O2 Saturation 99.4 H ABG Base Excess ABG Hemoglobin 10.9 L Oxyhemoglobin Sodium Potassium Chloride 94.5 L Carbon Dioxide BUN 61 H Creatinine 5.6 H Glucose 111 H POC Glucose Calcium Phosphorus 4.70 H Magnesium Iron TIBC Ferritin Total Bilirubin Direct Bilirubin AST Alkaline Phosphatase Lactate Dehydrogenase 294 H Troponin T NT-Pro-B Natriuret Pep Total Protein Albumin LDL Cholesterol Direct Urine WBC (Auto) Urine Creatinine Urine Total Protein 07/18/19 07/18/19 07/19/19 05:40 Unknown 05:15 WBC RBC Hgb Hct MCV MCH RDW Plt Count Seg Neuts % (Manual) Lymphocytes % (Manual) Nucleated RBC % Seg Neutrophils # Man Lymphocytes # (Manual) PT INR APTT ABG pH ABG pO2 ABG HCO3 ABG O2 Saturation ABG Base Excess ABG Hemoglobin 11.6 L Oxyhemoglobin 94.3 L Sodium 133 L Potassium Chloride 94.9 L Carbon Dioxide BUN 43 H Creatinine 4.0 H Glucose 118 H POC Glucose Calcium Phosphorus Magnesium Iron TIBC Ferritin Total Bilirubin Direct Bilirubin 0.7 H AST 94 H Alkaline Phosphatase 159 H Lactate Dehydrogenase Troponin T NT-Pro-B Natriuret Pep Total Protein 5.6 L D Albumin 2.5 L LDL Cholesterol Direct Urine WBC (Auto) Urine Creatinine Urine Total Protein 07/19/19 07/19/19 07/19/19 05:15 05:15 06:00 WBC 14.6 H RBC 2.57 L Hgb 8.2 L Hct 24.3 L MCV 95 H MCH RDW 19.5 H Plt Count 101 L Seg Neuts % (Manual) Lymphocytes % (Manual) Nucleated RBC % Seg Neutrophils # Man Lymphocytes # (Manual) PT INR APTT ABG pH ABG pO2 91.2 H ABG HCO3 27.5 H ABG O2 Saturation ABG Base Excess ABG Hemoglobin 8.3 L Oxyhemoglobin Sodium Potassium Chloride Carbon Dioxide BUN Creatinine Glucose POC Glucose Calcium Phosphorus Magnesium 0.20 L* Iron TIBC Ferritin Total Bilirubin Direct Bilirubin AST Alkaline Phosphatase Lactate Dehydrogenase Troponin T NT-Pro-B Natriuret Pep Total Protein Albumin LDL Cholesterol Direct Urine WBC (Auto) Urine Creatinine Urine Total Protein 07/20/19 06:15 WBC RBC Hgb Hct MCV MCH RDW Plt Count Seg Neuts % (Manual) Lymphocytes % (Manual) Nucleated RBC % Seg Neutrophils # Man Lymphocytes # (Manual) PT INR APTT ABG pH ABG pO2 ABG HCO3 ABG O2 Saturation ABG Base Excess ABG Hemoglobin Oxyhemoglobin Sodium Potassium Chloride Carbon Dioxide BUN 61 H Creatinine 4.6 H Glucose 117 H POC Glucose Calcium Phosphorus Magnesium Iron TIBC Ferritin Total Bilirubin Direct Bilirubin AST Alkaline Phosphatase Lactate Dehydrogenase Troponin T NT-Pro-B Natriuret Pep Total Protein Albumin LDL Cholesterol Direct Urine WBC (Auto) Urine Creatinine Urine Total Protein
--- NOTE | 2019-07-20 14:34 | Progress Note ---
Assessment and Plan Acute Kidney Injury possibly prerenal/ATN, cardiorenal syndrome, diuretics, ACEI, AIN from NSAIDs, ? underlying CKD process, no obstruction Hyperkalemia High Anion Gap Metabolic Acidosis Acute respiratory failure LLL PNA Anemia Hypomagnesemia S/p Cardiac Arrest Acute on chronic systolic CHF Questionable Anoxic Brain Injury Plan: - No acute indication for HD today - Assess need for HD on daily basis - S/p Right femoral Vas catheter placement for STAT HD on 07/12/19 - Monitor for signs of renal recovery - Epogen dosing for anemia management - Secondary GN and vasculitis work up ordered, so far negative for ANCA, normal complement, negative HCV, HBV, HIV, pending anti-GBM and SHANNA but has rare schisto with elevated LDH, consulted hematology - Vascular surgery consulted to exchange Vas Cath to perm catheter placement - Renal US mentioned moderate ascites, but no hydronephrosis - Neuro consulted for concern of anoxic brain injury, f/u recs - S/p US guided paracentesis with removal of 3200 ml on 07/15/19 - Renally dose medications - [place] Catheter: No - Renal plan d/w Dr Cohn Subjective Date of service: 07/20/19 Principal diagnosis: BRODIE Interval history: Pt intubated in ICU, unresponsive, brother at bedside, updated on renal plan Objective - Vital Signs Vital signs: Vital Signs - 12hr 07/20/19 07/20/19 07/20/19 03:00 03:30 04:00 Temperature 98.3 F Pulse Rate 84 83 87 Pulse Rate [ From Monitor] Respiratory 21 19 22 Rate Blood Pressure 104/55 104/58 121/70 O2 Sat by Pulse 100 100 100 Oximetry 07/20/19 07/20/19 07/20/19 04:30 05:00 05:30 Temperature Pulse Rate 92 H 92 H 95 H Pulse Rate [ From Monitor] Respiratory 20 16 23 Rate Blood Pressure 118/71 109/65 116/69 O2 Sat by Pulse 100 99 100 Oximetry 07/20/19 07/20/19 07/20/19 06:00 06:30 07:00 Temperature Pulse Rate 93 H 87 96 H Pulse Rate [ From Monitor] Respiratory 21 21 21 Rate Blood Pressure 116/66 116/70 132/71 O2 Sat by Pulse 100 100 100 Oximetry 07/20/19 07/20/19 07/20/19 07:20 07:30 08:00 Temperature 98.5 F Pulse Rate 87 85 88 Pulse Rate [ 73 From Monitor] Respiratory 15 19 Rate Blood Pressure 124/65 118/67 123/65 O2 Sat by Pulse 100 100 100 Oximetry 07/20/19 07/20/19 07/20/19 08:30 09:00 09:30 Temperature Pulse Rate 87 89 93 H Pulse Rate [ From Monitor] Respiratory 20 20 20 Rate Blood Pressure 120/64 127/70 128/75 O2 Sat by Pulse 100 100 100 Oximetry 07/20/19 07/20/19 07/20/19 10:00 10:20 10:31 Temperature 98.5 F Pulse Rate 96 H 100 H Pulse Rate [ From Monitor] Respiratory 24 19 Rate Blood Pressure 129/70 61/38 O2 Sat by Pulse 100 100 Oximetry 07/20/19 07/20/19 07/20/19 11:00 11:30 12:00 Temperature Pulse Rate 86 84 99 H Pulse Rate [ 99 H From Monitor] Respiratory 17 16 20 Rate Blood Pressure 123/66 132/65 O2 Sat by Pulse 99 99 100 Oximetry 07/20/19 07/20/19 07/20/19 12:01 12:18 12:30 Temperature Pulse Rate 102 H 86 88 Pulse Rate [ From Monitor] Respiratory 21 20 Rate Blood Pressure 156/79 124/65 125/69 O2 Sat by Pulse 99 100 98 Oximetry 07/20/19 13:00 Temperature Pulse Rate 93 H Pulse Rate [ From Monitor] Respiratory 20 Rate Blood Pressure 124/70 O2 Sat by Pulse 99 Oximetry - General Appearance General appearance: intubated EENT: ATNC Neck: no JVD Respiratory: Present: Decreased Breath Sounds (intubated) Cardiology: S1S2, other (ACCESS: Right femoral vas catheter intact) Gastrointestinal: normoactive bowel sounds (nasogastric tube intact) Integumentary: warm and dry Neurologic: other (intubated, unresponsive) Musculoskeletal: other (1+ edema to BLE) Psychiatric: other (unable to assess) - Lab 07/19/19 05:15 07/20/19 06:15 Most recent lab results ABG pH 7.431 pH Units (7.350-7.450) 07/19/19 06:00 ABG pCO2 42.3 mm Hg 07/19/19 06:00 ABG pO2 91.2 mm Hg (80.0-90.0) H 07/19/19 06:00 ABG HCO3 27.5 mmol/L (20.0-26.0) H 07/19/19 06:00 ABG O2 Saturation 97.3 % (95.0-99.0) 07/19/19 06:00 Calcium 8.8 mg/dL (8.4-10.2) 07/20/19 06:15 Phosphorus 2.90 mg/dL (2.5-4.5) 07/20/19 06:15 Magnesium 1.70 mg/dL (1.7-2.3) 07/19/19 06:45 Urine Creatinine 106.2 mg/dL (0.1-20.0) H 07/14/19 17:28 Urine Sodium 67 mmol/L 07/14/19 17:28 Urine Total Protein 173 mg/dL (5-11.8) H 07/14/19 16:40 Medications & Allergies - Medications Allergies/Adverse Reactions: Allergies No Known Allergies Allergy (Verified 07/01/19 11:20) Home Medications: Home Medications Medication Instructions Recorded Confirmed Last Taken Type Magnesium Oxide 400 mg PO BIDAC #60 tablet 12/07/16 07/13/19 1 Day Ago Rx ~09/16/17 Thiamine [Vitamin B-1] 100 mg PO QDAY #30 tablet 12/07/16 07/13/19 2 Days Ago Rx ~09/14/17 100 mg Lisinopril [Zestril] 20 mg PO DAILY #30 tablet 09/18/17 07/13/19 Unknown Rx Pantoprazole [Protonix TAB] 40 mg PO BID #60 tablet 09/18/17 07/13/19 Unknown Rx Aspirin [Aspirin BABY CHEW TAB] 81 mg PO QDAY #30 tab.chew 07/05/19 07/13/19 Unknown Rx Furosemide [Lasix TAB] 40 mg PO BID #60 tablet 07/05/19 07/13/19 Unknown Rx Nitroglycerin [Nitrostat] 0.4 mg SL .Q5MIN PRN #10 tablet 07/05/19 07/13/19 Unknown Rx Spironolactone [Aldactone] 12.5 mg PO QDAY #30 tablet 07/05/19 07/13/19 Unknown Rx carvediloL [Coreg] 6.25 mg PO BID #60 tablet 01/18/20 01/26/20 Unknown Rx lisinopriL [Zestril TAB] 20 mg PO QDAY #30 tablet 07/05/19 07/13/19 Unknown Rx Active Medications: Generic Name Dose Route Start Last Admin Trade Name Premq PRN Reason Stop Dose Admin Albuterol 2.5 mg 07/14/19 04:54 07/16/19 13:42 Proventil IH 2.5 mg Q4HRT PRN Administration Shortness Of Breath Lipase/Protease/Amylase 1 each 07/18/19 13:20 Pancreaze 10,500 Unit FEEDTUBE PRN PRN For Clogged Feeding Tube Epoetin Barney 10,000 unit 07/14/19 10:13 07/18/19 22:04 Procrit IV 10,000 unit CHEMA PRN Administration DIALYSIS Haloperidol Lactate 5 mg 07/12/19 21:35 07/12/19 21:09 Haldol IV 5 mg Q1H PRN Administration Unrespon. to mult. doses BZD's Sodium Chloride 100 mls @ 999 mls/hr 07/16/19 12:11 Nacl 0.9% IV CHEMA PRN Hypotension Norepinephrine 8 mg/ Sodium 250 mls @ 3.75 mls/hr 07/17/19 14:00 07/18/19 20:39 Chloride IV 0 mcg/min TITR TERRELL 0 mls/hr Titration Protocol 2 MCG/MIN Vasopressin 20 unit/ Sodium 101 mls @ 9.09 mls/hr 07/17/19 15:00 Chloride IV TITR TERRELL Protocol 0.03 UNITS/MIN Thiamine HCl 100 mg/ Sodium 51 mls @ 100 mls/hr 07/18/19 10:00 07/20/19 10:07 Chloride IV 100 mls/hr QDAY TERRELL Administration Metronidazole 500 mg in 100 mls @ 100 mls/hr 07/17/19 17:00 07/20/19 13:32 Flagyl 500 Mg/100 Ml IV 100 mls/hr Q8HR TERRELL Administration Protocol Cefepime HCl 1 gm in 100 mls @ 200 mls/hr 07/17/19 17:20 07/19/19 19:06 Cefepime/Ns 1 Gm/100 Ml IV 200 mls/hr Q24H TERRELL Administration Lansoprazole 30 mg 07/18/19 11:00 07/20/19 10:07 Prevacid Solutab FEEDTUBE 30 mg QDAY TERRELL Administration Simple Syrup 15 ml 07/18/19 13:20 Simple Syrup FEEDTUBE PRN PRN Hypoglycemia Simple Syrup 30 ml 07/18/19 13:20 Simple Syrup FEEDTUBE PRN PRN Hypoglycemia Sodium Bicarbonate 325 mg 07/18/19 13:20 Sodium Bicarbonate FEEDTUBE PRN PRN For Clogged Feeding Tube
--- NOTE | 2019-07-20 16:16 | Progress Note ---
Assessment and Plan Assessment and plan: Patient is a 48-year-old man with a history of being deaf (writes to communicate) HTN, Systolic CHF(EF 20%), anxiety, depression COPD and GERD who presented to [facility] ED with severe SOB. EMS found patient to have a pulse oximetry of 80% on room air, improved to 92% on 2 L of supplemental oxygen. Patient was confused and provided limited history. Patient refused BiPAP. Patient given 40 mg of Lasix IV and and EMS gave 40mg iv lasix prior to arrival. Patient was found to have left lower lobe pneumonia, complicated by acute respiratory failure, severe Uremia, hyponatremia, hyperkalemia, metabolic acidosis. Patient admitted to medical floor for medical stabilization and treatment due to high risk for cardiopulmonary and renal decompensation. Nephrology team consulted in ED for urgent dialysis. Patient initiated on pneumonia protocol with IV antibiotic therapy. Patient treated with calcium gluconate and Kayexalate for hyperkalemia in ED. EKG showed no changes. Patient mental status so poor he had to be put in restraints to prevent for pulling and removing O2. Next day, patient remained confused, so He went down for CT head and he must've removed O2 mask while in CT scanner or had a fatal cardiac arrhythmia which he was experiencing NSVT/aflutter with RVR the night before. This led to Cardiac arrest. ED physician was the first to respond and saw Asystole on the monitor, ACLS done and when I arrived he was in PEA. He was a difficult Intubation as he had bleeding in the Endotracheal area due to Eliquis which was started on 07/16/2019. He was intubated by ED physician. Pulse was restored and he was sent to the ICU, where he had another Cardiac arrest with PEA, ACLS done again and pulse restored. Overnight he was posturing. He is comatose without any sedative. * pChest x-ray showed bilateral pleural effusion with significant pulmonary congestion. EKG showed no ST elevation. * Initial Labs: WBC 14.7, hgb 9.7, plt 124, Na 125, k 5.5, co2 13, BUN 70, Cr 8.8 Acute on chronic systolic heart failure decompensation leading to respiratory failure: treated with Ultrafiltration via HD due to severe renal failure, ultrafiltration removed 4 liters Acute hypoxic respiratory failure, refused non-invasive ventilation; therefore, treat with other means, patient noncompliance with wearing O2, family service counselor that this will led to his demise, which most likely led to Cardiac arrest Severe ARF, suspected due to ATN, cardiorenal, vasomotor poa: treated with emergent HD, has right groin, daily accessment of HD, d/w nephrology, will need fci HD, referral sent out, stop PPI LLL pneumonia: treat with IV abx, unsure if sirs or sepsis poa, see admitting doctor notes: treat with iv levaquin renal dose, AMS, acute metabolic encephalopathy, poa, thought to be due to severe Uremia, but uremia improved and he still confused, needing restraint, CT head unrevealin g, history of alcohol abuse Anemia appears AOCD due to renal dysfunction: continue to monitor cbc Thrombocytopenia: repeat cbc Morbid Obesity, bmi 44.1: family service counselor on lifestyle modification Language Barrier/Deafness: communicates via paper AFlutter with RVR on 07/16/2019: treat with coreg and Eliquis initiated by Dr. Sadler, NSVT 07/16/2019 overnight: bb Suspect Anoxic brain injury: consulted Neurology full code DVT ppx: scd only restraints Dispo: continue inpatient ICU care I spoke with Brother Cheikh [phone] History Interval history: Patient was seen and examined. Follow-up on current diagnosis of ARF, CHF, respiratory failure, still with SOB and low energy. Overnight eventful as patient had posturing and given iv ativan. Patient denies any chest pain, nausea/vomiting or severe headaches. Imaging, nursing note, chart, labs and old chart reviewed. Discussed with patient. Hospitalist Physical - Physical exam Narrative exam: Gen: chronic ill appearing, morbid obese bmi 44.1, mild resp failure, a/o x3 HEENT: significant alopecia, NCAT, EOMI, PERRL, OP Clear Neck: supple, no adenopathy, no thyromegaly, +JVD CVS/Heart: RRR, normal S1S2, pulses present bilaterally Chest/Lungs: diminised bs bilateral, Symmetrical chest expansion, good air entry bilaterally GI/Abdomen: soft, NTND, good bowel sounds, no guarding or rebound /Bladder: no suprapubic tenderness, no CVA or paraspinal tenderness Extermity/Skin: ble leg edema, no obvious rash MSK: FROM x 4 Neuro: CN 2-12 grossly intact, no new focal deficits Psych: calm - Constitutional Vitals: Temp Pulse Resp BP Pulse Ox 97.9 F 88 22 120/70 100 07/20/19 12:00 07/20/19 15:52 07/20/19 15:01 07/20/19 15:52 07/20/19 15:52 General appearance: Present: no acute distress Results - Labs CBC & Chem 7: 07/19/19 05:15 07/20/19 06:15 Labs: Laboratory Last Values WBC 14.6 K/mm3 (4.5-11.0) H 07/19/19 05:15 RBC 2.57 M/mm3 (3.65-5.03) L 07/19/19 05:15 Hgb 8.2 gm/dl (11.8-15.2) L 07/19/19 05:15 Hct 24.3 % (35.5-45.6) L 07/19/19 05:15 MCV 95 fl (84-94) H 07/19/19 05:15 MCH 32 pg (28-32) 07/19/19 05:15 MCHC 34 % (32-34) 07/19/19 05:15 RDW 19.5 % (13.2-15.2) H 07/19/19 05:15 Plt Count 101 K/mm3 (140-440) L 07/19/19 05:15 Lymph % (Auto) Lime Mixer Tender 07/13/19 04:28 [place] % (Auto) Lime Mixer Tender 07/13/19 04:28 Eos % (Auto) Lime Mixer Tender 07/13/19 04:28 Baso % (Auto) Lime Mixer Tender 07/13/19 04:28 Lymph # Lime Mixer Tender 07/13/19 04:28 [place] # Lime Mixer Tender 07/13/19 04:28 Eos # Lime Mixer Tender 07/13/19 04:28 Baso # Lime Mixer Tender 07/13/19 04:28 Add Manual Diff Complete 07/14/19 07:16 Total Counted 100 07/14/19 07:16 Seg Neutrophils % Lime Mixer Tender 07/13/19 04:28 Seg Neuts % (Manual) 89.0 % (40.0-70.0) H 07/14/19 07:16 Band Neutrophils % 0 % 07/14/19 07:16 Lymphocytes % (Manual) 4.0 % (13.4-35.0) L 07/14/19 07:16 Reactive Lymphs % (Man) 0 % 07/14/19 07:16 Monocytes % (Manual) 7.0 % (0.0-7.3) 07/14/19 07:16 Eosinophils % (Manual) 0 % (0.0-4.3) 07/14/19 07:16 Basophils % (Manual) 0 % (0.0-1.8) 07/14/19 07:16 Metamyelocytes % 0 % 07/14/19 07:16 Myelocytes % 0 % 07/14/19 07:16 Promyelocytes % 0 % 07/14/19 07:16 Blast Cells % 0 % 07/14/19 07:16 Nucleated RBC % Not Reportable 07/14/19 07:16 Seg Neutrophils # Lime Mixer Tender 07/13/19 04:28 Seg Neutrophils # Man 7.7 K/mm3 (1.8-7.7) 07/14/19 07:16 Band Neutrophils # 0.0 K/mm3 07/14/19 07:16 Lymphocytes # (Manual) 0.3 K/mm3 (1.2-5.4) L 07/14/19 07:16 Abs React Lymphs (Man) 0.0 K/mm3 07/14/19 07:16 Monocytes # (Manual) 0.6 K/mm3 (0.0-0.8) 07/14/19 07:16 Eosinophils # (Manual) 0.0 K/mm3 (0.0-0.4) 07/14/19 07:16 Basophils # (Manual) 0.0 K/mm3 (0.0-0.1) 07/14/19 07:16 Metamyelocytes # 0.0 K/mm3 07/14/19 07:16 Myelocytes # 0.0 K/mm3 07/14/19 07:16 Promyelocytes # 0.0 K/mm3 07/14/19 07:16 Blast Cells # 0.0 K/mm3 07/14/19 07:16 WBC Morphology Not Reportable 07/14/19 07:16 Hypersegmented Neuts Not Reportable 07/14/19 07:16 Hyposegmented Neuts Not Reportable 07/14/19 07:16 Hypogranular Neuts Not Reportable 07/14/19 07:16 Smudge Cells Not Reportable 07/14/19 07:16 Toxic Granulation Not Reportable 07/14/19 07:16 Toxic Vacuolation Not Reportable 07/14/19 07:16 Dohle Bodies Not Reportable 07/14/19 07:16 Pelger-Huet Anomaly Not Reportable 07/14/19 07:16 Mack Rods Not Reportable 07/14/19 07:16 Platelet Estimate Consistent w auto 07/14/19 07:16 Clumped Platelets Not Reportable 07/14/19 07:16 Plt Clumps, EDTA Not Reportable 07/14/19 07:16 Large Platelets Not Reportable 07/14/19 07:16 Giant Platelets Not Reportable 07/14/19 07:16 Platelet Satelliting Not Reportable 07/14/19 07:16 Plt Morphology Comment Not Reportable 07/14/19 07:16 RBC Morphology Not Reportable 07/14/19 07:16 Dimorphic RBCs Not Reportable 07/14/19 07:16 Polychromasia Not Reportable 07/14/19 07:16 Hypochromasia Not Reportable 07/14/19 07:16 Poikilocytosis Not Reportable 07/14/19 07:16 Anisocytosis 1+ 07/14/19 07:16 Microcytosis Not Reportable 07/14/19 07:16 Macrocytosis Not Reportable 07/14/19 07:16 Spherocytes Not Reportable 07/14/19 07:16 Pappenheimer Bodies Not Reportable 07/14/19 07:16 Sickle Cells Not Reportable 07/14/19 07:16 Target Cells Few 07/14/19 07:16 Tear Drop Cells Not Reportable 07/14/19 07:16 Ovalocytes Not Reportable 07/14/19 07:16 Helmet Cells Not Reportable 07/14/19 07:16 Jackson-Terramuggus Bodies Not Reportable 07/14/19 07:16 Aledo Rings Not Reportable 07/14/19 07:16 Yolis Cells Not Reportable 07/14/19 07:16 Bite Cells Not Reportable 07/14/19 07:16 Crenated Cell Not Reportable 07/14/19 07:16 Elliptocytes Not Reportable 07/14/19 07:16 Acanthocytes (Spur) Not Reportable 07/14/19 07:16 Rouleaux Not Reportable 07/14/19 07:16 Hemoglobin C Crystals Not Reportable 07/14/19 07:16 Schistocytes Not Reportable 07/14/19 07:16 Malaria parasites Not Reportable 07/14/19 07:16 Víctor Bodies Not Reportable 07/14/19 07:16 Hem Pathologist Commnt No 07/14/19 07:16 PT 19.8 Sec. (12.2-14.9) H 07/12/19 15:08 INR 1.65 (0.87-1.13) H 07/12/19 15:08 APTT 47.8 Sec. (24.2-36.6) H 07/12/19 15:08 ABG pH 7.431 pH Units (7.350-7.450) 07/19/19 06:00 ABG pCO2 42.3 mm Hg 07/19/19 06:00 ABG pO2 91.2 mm Hg (80.0-90.0) H 07/19/19 06:00 ABG HCO3 27.5 mmol/L (20.0-26.0) H 07/19/19 06:00 ABG O2 Saturation 97.3 % (95.0-99.0) 07/19/19 06:00 ABG O2 Content 11.2 (0.0-44) 07/19/19 06:00 ABG Base Excess 3.0 mmol/L (-2.0-3.0) 07/19/19 06:00 ABG Hemoglobin 8.3 gm/dl (14.0-18.0) L 07/19/19 06:00 ABG Carboxyhemoglobin 1.7 % (0.0-5.0) 07/19/19 06:00 ABG Methemoglobin 0.5 % (0.0-1.5) 07/19/19 06:00 Oxyhemoglobin 95.1 % (95.0-99.0) 07/19/19 06:00 FiO2 40 % 07/19/19 06:00 Sodium 137 mmol/L (137-145) 07/20/19 06:15 Potassium 3.6 mmol/L (3.6-5.0) 07/20/19 06:15 Chloride 98.6 mmol/L (98-107) 07/20/19 06:15 Carbon Dioxide 22 mmol/L (22-30) 07/20/19 06:15 Anion Gap 20 mmol/L 07/20/19 06:15 BUN 61 mg/dL (9-20) H 07/20/19 06:15 Creatinine 4.6 mg/dL (0.8-1.5) H 07/20/19 06:15 Estimated GFR 17 ml/min 07/20/19 06:15 BUN/Creatinine Ratio 13 % 07/20/19 06:15 Glucose 117 mg/dL (75-100) H 07/20/19 06:15 POC Glucose 122 (70-105) H 07/17/19 12:52 Calcium 8.8 mg/dL (8.4-10.2) 07/20/19 06:15 Phosphorus 2.90 mg/dL (2.5-4.5) 07/20/19 06:15 Magnesium 1.70 mg/dL (1.7-2.3) 07/19/19 06:45 Iron 15 ug/dL (49-181) L 07/15/19 06:30 TIBC 186 mcg/dL (250-450) L 07/15/19 06:30 Ferritin 428.2 ng/mL (13.0-400.0) H 07/15/19 06:30 Total Bilirubin 1.10 mg/dL (0.1-1.2) 07/18/19 05:40 Direct Bilirubin 0.7 mg/dL (0-0.2) H 07/18/19 05:40 Indirect Bilirubin 0.4 mg/dL 07/18/19 05:40 AST 94 units/L (5-40) H 07/18/19 05:40 ALT 16 units/L (7-56) 07/18/19 05:40 Alkaline Phosphatase 159 units/L (35-129) H 07/18/19 05:40 Lactate Dehydrogenase 294 units/L (91-180) H 07/18/19 05:40 Total Creatine Kinase 59 units/L (55-170) 07/14/19 07:16 Troponin T 0.188 ng/mL (0.00-0.029) H* 07/12/19 17:04 NT-Pro-B Natriuret Pep > 39492 pg/mL (0-450) H 07/12/19 15:08 Total Protein 5.6 g/dL (6.3-8.2) L D 07/18/19 05:40 Albumin 2.5 g/dL (3.9-5) L 07/18/19 05:40 Albumin/Globulin Ratio 0.8 % 07/18/19 05:40 Triglycerides 128 mg/dL (2-149) 07/12/19 15:08 Cholesterol 121 mg/dL (50-199) 07/12/19 15:08 LDL Cholesterol Direct 40 mg/dL (50-130) L 07/12/19 15:08 HDL Cholesterol 44 mg/dL (40-59) 07/12/19 15:08 Cholesterol/HDL Ratio 2.75 % 07/12/19 15:08 Urine Color Eugenia (Yellow) 07/14/19 17:28 Urine Turbidity Slightly-cloudy (Clear) 07/14/19 17:28 Urine pH 5.0 (5.0-7.0) 07/14/19 17:28 Ur Specific [place] 1.014 (1.003-1.030) 07/14/19 17:28 Urine Protein 100 mg/dl mg/dL (Negative) 07/14/19 17:28 Urine Glucose (UA) Neg mg/dL (Negative) 07/14/19 17:28 Urine Ketones Neg mg/dL (Negative) 07/14/19 17:28 Urine Blood Sm (Negative) 07/14/19 17:28 Urine Nitrite Neg (Negative) 07/14/19 17:28 Urine Bilirubin Neg (Negative) 07/14/19 17:28 Urine Urobilinogen < 2.0 mg/dL (<2.0) 07/14/19 17:28 Ur Leukocyte Esterase Neg (Negative) 07/14/19 17:28 Urine WBC (Auto) 31.0 /HPF (0.0-6.0) H 07/14/19 17:28 Urine RBC (Auto) 3.0 /HPF (0.0-6.0) 07/14/19 17:28 U Epithel Cells (Auto) < 1.0 /HPF (0-13.0) 07/14/19 17:28 Urine Bacteria (Auto) 1+ /HPF (Negative) 07/14/19 17:28 Urine Mucus Few /HPF 07/14/19 17:28 Urine Yeast (Budding) Few /HPF 07/14/19 17:28 Urine Eosinophils Rare seen (None Seen) 07/14/19 17:28 Urine Creatinine 106.2 mg/dL (0.1-20.0) H 07/14/19 17:28 Protein/Creatinin Ratio 1.66 07/14/19 16:40 Urine Sodium 67 mmol/L 07/14/19 17:28 Urine Urea Nitrogen 100 07/14/19 17:28 Urine Total Protein 173 mg/dL (5-11.8) H 07/14/19 16:40 Fluid Type Paracentesis 07/14/19 10:45 Fluid Color Bloody 07/14/19 10:45 Fluid Appearance Bloody 07/14/19 10:45 Fluid WBC 120 /mm3 07/14/19 10:45 Fluid RBC 88966 /mm3 07/14/19 10:45 Fluid Seg Neutrophils 33.0 % 07/14/19 10:45 Fluid Lymphocytes 17.0 % 07/14/19 10:45 Fluid Reactive Lymphs 0 % 07/14/19 10:45 Fluid Monocytes 50.0 % 07/14/19 10:45 Fluid Eosinophils 0 % 07/14/19 10:45 Fluid Basophils 0 % 07/14/19 10:45 Random Vancomycin 14.5 ug/mL (0-40.0) 07/19/19 05:15 Proteinase 3 (PR3) Ab <1.0 AI (<1.0) 07/14/19 11:50 Myeloperoxidase Ab <1.0 AI (<1.0) 07/14/19 11:50 Complement C3 124 mg/dL (82-185) 07/14/19 11:50 Complement C4 28 mg/dL (15-53) 07/14/19 11:50 Hepatitis A IgM Ab Non-reactive (NonReactive) 07/12/19 17:49 Hep Bs Antigen Non-reactive (Negative) 07/14/19 11:50 Hep B Core IgM Ab Non-reactive (NonReactive) 07/12/19 17:49 Hepatitis C Antibody Non-reactive (NonReactive) 07/14/19 11:50 HIV-1 Antibody See scanned result 07/14/19 11:50 HIV-2 Ab (Immunoblot) See scanned result 07/14/19 11:50 Schistocytes Smear Rare 07/18/19 05:40 Active Medications - Current Medications Current Medications: Generic Name Dose Route Start Last Admin Trade Name Freq PRN Reason Stop Dose Admin Albuterol 2.5 mg 07/14/19 04:54 07/16/19 13:42 Proventil IH 2.5 mg Q4HRT PRN Administration Shortness Of Breath Lipase/Protease/Amylase 1 each 07/18/19 13:20 Pancreaze 10,500 Unit FEEDTUBE PRN PRN For Clogged Feeding Tube Epoetin Barney 10,000 unit 07/14/19 10:13 07/18/19 22:04 Procrit IV 10,000 unit CHEMA PRN Administration DIALYSIS Haloperidol Lactate 5 mg 07/12/19 21:35 07/12/19 21:09 Haldol IV 5 mg Q1H PRN Administration Unrespon. to mult. doses BZD's Sodium Chloride 100 mls @ 999 mls/hr 07/16/19 12:11 Nacl 0.9% IV CHEMA PRN Hypotension Norepinephrine 8 mg/ Sodium 250 mls @ 3.75 mls/hr 07/17/19 14:00 07/18/19 20:39 Chloride IV 0 mcg/min TITR TERRELL 0 mls/hr Titration Protocol 2 MCG/MIN Vasopressin 20 unit/ Sodium 101 mls @ 9.09 mls/hr 07/17/19 15:00 Chloride IV TITR TERRELL Protocol 0.03 UNITS/MIN Thiamine HCl 100 mg/ Sodium 51 mls @ 100 mls/hr 07/18/19 10:00 07/20/19 10:07 Chloride IV 100 mls/hr QDAY TERRELL Administration Metronidazole 500 mg in 100 mls @ 100 mls/hr 07/17/19 17:00 07/20/19 13:32 Flagyl 500 Mg/100 Ml IV 100 mls/hr Q8HR TERRELL Administration Protocol Cefepime HCl 1 gm in 100 mls @ 200 mls/hr 07/17/19 17:20 07/19/19 19:06 Cefepime/Ns 1 Gm/100 Ml IV 200 mls/hr Q24H TERRELL Administration Lansoprazole 30 mg 07/18/19 11:00 07/20/19 10:07 Prevacid Solutab FEEDTUBE 30 mg QDAY TERRELL Administration Simple Syrup 15 ml 07/18/19 13:20 Simple Syrup FEEDTUBE PRN PRN Hypoglycemia Simple Syrup 30 ml 07/18/19 13:20 Simple Syrup FEEDTUBE PRN PRN Hypoglycemia Sodium Bicarbonate 325 mg 07/18/19 13:20 Sodium Bicarbonate FEEDTUBE PRN PRN For Clogged Feeding Tube Nutrition/Malnutrition Assess - Dietary Evaluation Nutrition/Malnutrition Findings: Nutrition Notes Start: 07/18/19 12:09 Freq: Status: Active Protocol: Document 07/18/19 12:09 CW (Rec: 07/18/19 12:42 CW [id number]) Co-Sign 07/18/19 12:09 LP Nutrition Notes Need for Assessment generated from: LOS Initial or Follow up Assessment Current Diagnosis Acute Kidney Injury, Hypertension,Heart Failure, Respiratory Failure Other Pertinent Diagnosis on HD , metabolic acidosis, pnuemonia Current Diet no current diet Labs/Tests Reviewed Pertinent Medications Norepinephrine Height 5 ft 10 in Weight 103.4 kg [place] Body Weight (kg) 75.45 BMI 32.7 Weight Status Obese Subjective/Other Information Screen for LOS. Pt on vent. TF most likely needed. Pt has been eating poorly since adm, approximately 25-50% of meals have been consumed. Per RN, NGT has been placed. Awaiting KUB. okayed TF order. Nepro 1.8 Burn Absent Trauma Absent GI Symptoms None Difficulty In Swallowing,Chewing Current % PO Negligible Minimum of two criteria Yes Energy Intake (severe) < or equal to 50% Estimated Energy Requirement > or equal to 5 days Muscle Mass Mild Depletion (non-severe) Fluid Accumulation Moderate to Severe (severe) Reduced Accelerator Systems Director Strength Measurably Reduced (severe) #2 Nutrition Diagnosis Malnutrition Etiology Pneumonia, metabolic acidosis, BRODIE As Evidenced by Signs and Symptoms bilateral weak brokerage branch manager strength, 3+ pitting edema, and 25-50% consumption of meals since . #1 Nutrition Diagnosis Inadequate oral intake Etiology pt on vent As Evidenced by Signs and Symptoms no diet ordered, pt unable to eat when on the vent Is patient on ventilator? Yes Is Patient Ambulatory and/or Out of Bed No REE-([facility]-confined to bed) 2289.768 Kcal/Kg value to use for calculation 17 Approximate Energy Requirements Using 1758 kcal/Kg Calculation Used for Recommendations Kcal/kg Additional Notes Protein needs: 150 g (> 2 g/ kgIBW) Fluid needs: 1000 - 1500 ml ( on HD/ Anuric) Nutrition Intervention Change Diet Order: TF Nutrition Support: Nepro 1.8 at 41 ml/hr. Water flush of 130 ml q4h. Kcal 1,771 Protein (gm) 80 Fluid (mL) 715 Goal #1 Meet at least 75% of protein and energy needs Anticipated Discharge Needs: unble to determine at this time Follow-Up By: 07/21/19 Additional Comments FU TF initiation
[2019-07-20] MEDS ORDERED: ACETAMINOPHEN 500 MG TAB FEEDTUBE PRN (16:47)
[2019-07-20] MEDS: CEFEPIME/NS 1 GM/100 ML 1 GM/100 ML BAG IV SCH (17:54)
[2019-07-20] MEDS: ACETAMINOPHEN 325 MG/10.15 ML ORAL LIQD UNIT DOSE FEEDTUBE PRN (17:54)
[2019-07-20 22:10] LABS: ANA Screen, IFA Negative (Negative)
[2019-07-21 05:50] LABS: ABG Base Excess 3.3 mmol/L (-2.0-3.0); ABG HCO3 27.9 mmol/L (20.0-26.0); ABG Methemoglobin 0.5 % (0.0-1.5); ABG Oxygen Saturation 97.8 % (95.0-99.0); ABG PCO2 43.3 mm Hg; ABG PH 7.427 pH Units (7.350-7.450); ABG PO2 104.5 mm Hg (80.0-90.0)
[2019-07-21] MEDS: metroNIDAZOLE/NS 500 MG/100 ML 500 MG/100 ML BAG IV SCH ×3 (06:27→21:58)
[2019-07-21 06:43] LABS: Hematocrit 23.5 % (35.5-45.6); Hemoglobin 7.9 gm/dl (11.8-15.2); Mean Corpuscular HGB Conc 34 % (32-34); Mean Corpuscular Volume 96 fl (84-94); Platelet Count 167 K/mm3 (140-440); Red Blood Count 2.45 M/mm3 (3.65-5.03); Red Cell Distribution Width 19.4 % (13.2-15.2)
[2019-07-21 07:07] LABS: Calcium 8.6 mg/dL (8.4-10.2)
--- NOTE | 2019-07-21 08:37 | Event Note ---
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
[2019-07-21] MEDS: THIAMINE 100 MG in SODIUM CHLORIDE 0.9% 50 ML IV SCH (09:39)
[2019-07-21] MEDS: LANSOPRAZOLE 30 MG SOLUTAB FEEDTUBE SCH (09:39)
--- NOTE | 2019-07-21 09:39 | Progress Note ---
Assessment and Plan 48 y/o male with inhouse cardiac arrest x2 1. Ok with fecal management system. 2. No sedation 3. Will continue PSV trials as tolerated, currently on and tolerated. 4. Needs EEG to rule out seizure activity. Ordered this am 5. Overall prognosis is guarded to poor. CCT 31 minutes. Subjective Date of service: 07/21/19 Principal diagnosis: BRODIE Interval history: Remains unresponsive. No family at bedside. Still with eye deviation. Objective Vital Signs - 12hr 07/20/19 07/20/19 07/20/19 22:00 22:21 22:30 Temperature Pulse Rate 87 89 85 Respiratory 17 21 20 Rate Blood Pressure 121/67 121/67 123/69 O2 Sat by Pulse 100 99 99 Oximetry 07/20/19 07/20/19 07/21/19 23:01 23:30 00:00 Temperature 98.6 F Pulse Rate 101 H 87 91 H Respiratory 20 20 20 Rate Blood Pressure 171/105 133/72 127/72 O2 Sat by Pulse 100 99 100 Oximetry 07/21/19 07/21/19 07/21/19 00:30 01:00 01:30 Temperature Pulse Rate 86 88 89 Respiratory 21 20 20 Rate Blood Pressure 125/65 123/67 134/77 O2 Sat by Pulse 100 99 98 Oximetry 07/21/19 07/21/19 07/21/19 02:00 02:30 02:45 Temperature Pulse Rate 88 87 90 Respiratory 19 20 Rate Blood Pressure 122/69 126/70 112/69 O2 Sat by Pulse 99 100 100 Oximetry 07/21/19 07/21/19 07/21/19 03:00 03:30 03:55 Temperature 98.7 F Pulse Rate 98 H 87 Respiratory 18 19 Rate Blood Pressure 141/78 135/68 O2 Sat by Pulse 100 100 Oximetry 07/21/19 07/21/19 07/21/19 04:00 04:30 05:00 Temperature Pulse Rate 97 H 90 97 H Respiratory 23 19 20 Rate Blood Pressure 140/75 134/69 129/70 O2 Sat by Pulse 98 100 100 Oximetry 07/21/19 07/21/19 07/21/19 05:30 06:00 06:30 Temperature Pulse Rate 92 H 93 H 91 H Respiratory 19 15 20 Rate Blood Pressure 134/68 140/73 147/79 O2 Sat by Pulse 100 100 100 Oximetry 02/09/0407/21/19 07/21/19 07:00 07:30 08:00 Temperature Pulse Rate 107 H 91 H 87 Respiratory 23 18 17 Rate Blood Pressure 156/90 131/70 127/69 O2 Sat by Pulse 100 100 99 Oximetry 07/21/19 07/21/19 08:34 08:46 Temperature Pulse Rate 94 H 95 H Respiratory Rate Blood Pressure 134/73 O2 Sat by Pulse 100 100 Oximetry Constitutional: no acute distress, comatose Eyes: non-icteric ENT: other (orally intubated not on sedation) Neck: supple Effort: normal Ascultation: Bilateral: clear Gastrointestinal: normoactive bowel sounds, soft, non-tender CBC and BMP: 07/21/19 06:15 07/21/19 06:15 ABG, PT/INR, D-dimer: ABG ABG pH 7.427 pH Units (7.350-7.450) 07/21/19 05:30 ABG pCO2 43.3 mm Hg 07/21/19 05:30 ABG pO2 104.5 mm Hg (80.0-90.0) H 07/21/19 05:30 ABG O2 Saturation 97.8 % (95.0-99.0) 07/21/19 05:30 PT/INR, D-dimer PT 19.8 Sec. (12.2-14.9) H 07/12/19 15:08 INR 1.65 (0.87-1.13) H 07/12/19 15:08 Abnormal lab findings: Abnormal Labs 07/12/19 07/12/19 07/12/19 14:46 15:08 15:08 WBC 14.7 H RBC 2.97 L Hgb 9.7 L Hct 29.0 L MCV 98 H MCH 33 H RDW 19.8 H Plt Count 124 L Seg Neuts % (Manual) 91.0 H Lymphocytes % (Manual) 2.0 L Nucleated RBC % 1.0 H Seg Neutrophils # Man 13.4 H Lymphocytes # (Manual) 0.3 L PT 19.8 H INR 1.65 H APTT 47.8 H ABG pH ABG pO2 ABG HCO3 ABG O2 Saturation ABG Base Excess ABG Hemoglobin Oxyhemoglobin Sodium Potassium Chloride Carbon Dioxide BUN Creatinine Glucose POC Glucose 110 H Calcium Phosphorus Magnesium Iron TIBC Ferritin Total Bilirubin Direct Bilirubin AST Alkaline Phosphatase Lactate Dehydrogenase Troponin T NT-Pro-B Natriuret Pep Total Protein Albumin LDL Cholesterol Direct Vitamin B12 Folate Urine WBC (Auto) Urine Creatinine Urine Total Protein 07/12/19 07/12/19 07/12/19 15:08 15:08 15:08 WBC RBC Hgb Hct MCV MCH RDW Plt Count Seg Neuts % (Manual) Lymphocytes % (Manual) Nucleated RBC % Seg Neutrophils # Man Lymphocytes # (Manual) PT INR APTT ABG pH ABG pO2 ABG HCO3 ABG O2 Saturation ABG Base Excess ABG Hemoglobin Oxyhemoglobin Sodium 125 L Potassium 5.5 H Chloride 84.9 L Carbon Dioxide 13 L BUN 70 H Creatinine 8.8 H Glucose POC Glucose Calcium 8.0 L Phosphorus Magnesium 1.30 L Iron TIBC Ferritin Total Bilirubin 1.30 H Direct Bilirubin 0.9 H AST 53 H Alkaline Phosphatase 208 H Lactate Dehydrogenase Troponin T 0.192 H* NT-Pro-B Natriuret Pep > 26878 H Total Protein Albumin 3.3 L LDL Cholesterol Direct 40 L Vitamin B12 Folate Urine WBC (Auto) Urine Creatinine Urine Total Protein 07/12/19 07/13/19 07/13/19 17:04 01:32 01:32 WBC RBC Hgb Hct MCV MCH RDW Plt Count Seg Neuts % (Manual) Lymphocytes % (Manual) Nucleated RBC % Seg Neutrophils # Man Lymphocytes # (Manual) PT INR APTT ABG pH ABG pO2 ABG HCO3 ABG O2 Saturation ABG Base Excess ABG Hemoglobin Oxyhemoglobin Sodium 133 L D Potassium 5.3 H Chloride 90.8 L Carbon Dioxide 20 L D BUN 48 H Creatinine 6.2 H Glucose 105 H POC Glucose Calcium 8.2 L Phosphorus 4.90 H Magnesium 1.50 L Iron TIBC Ferritin Total Bilirubin Direct Bilirubin AST Alkaline Phosphatase Lactate Dehydrogenase Troponin T 0.188 H* NT-Pro-B Natriuret Pep Total Protein Albumin LDL Cholesterol Direct Vitamin B12 Folate Urine WBC (Auto) Urine Creatinine Urine Total Protein 07/13/19 07/13/19 07/13/19 04:28 04:28 16:16 WBC 15.9 H RBC 3.10 L Hgb 10.2 L Hct 30.6 L MCV 99 H MCH 33 H RDW 19.4 H Plt Count 135 L Seg Neuts % (Manual) Lymphocytes % (Manual) 4.0 L Nucleated RBC % Seg Neutrophils # Man 9.9 H Lymphocytes # (Manual) 0.6 L PT INR APTT ABG pH ABG pO2 ABG HCO3 ABG O2 Saturation ABG Base Excess ABG Hemoglobin Oxyhemoglobin Sodium 132 L 134 L Potassium 5.1 H Chloride 90.3 L 92.2 L Carbon Dioxide 17 L 20 L BUN 47 H 55 H Creatinine 6.0 H 6.5 H Glucose 124 H POC Glucose Calcium 8.2 L 7.9 L Phosphorus Magnesium Iron TIBC Ferritin Total Bilirubin Direct Bilirubin AST Alkaline Phosphatase Lactate Dehydrogenase Troponin T NT-Pro-B Natriuret Pep Total Protein Albumin LDL Cholesterol Direct Vitamin B12 Folate Urine WBC (Auto) Urine Creatinine Urine Total Protein 07/14/19 07/14/19 07/14/19 07:16 07:16 07:16 WBC RBC 2.65 L Hgb 8.6 L Hct 25.4 L MCV 96 H MCH 33 H RDW 19.7 H Plt Count 114 L Seg Neuts % (Manual) 89.0 H Lymphocytes % (Manual) 4.0 L Nucleated RBC % Seg Neutrophils # Man Lymphocytes # (Manual) 0.3 L PT INR APTT ABG pH ABG pO2 ABG HCO3 ABG O2 Saturation ABG Base Excess ABG Hemoglobin Oxyhemoglobin Sodium 133 L Potassium Chloride 93.0 L Carbon Dioxide 18 L BUN 61 H Creatinine 7.3 H Glucose 113 H POC Glucose Calcium 7.7 L Phosphorus Magnesium Iron TIBC Ferritin Total Bilirubin Direct Bilirubin AST Alkaline Phosphatase Lactate Dehydrogenase 210 H Troponin T NT-Pro-B Natriuret Pep Total Protein Albumin LDL Cholesterol Direct Vitamin B12 Folate Urine WBC (Auto) Urine Creatinine Urine Total Protein 07/14/19 07/14/19 07/14/19 16:40 17:28 17:28 WBC RBC Hgb Hct MCV MCH RDW Plt Count Seg Neuts % (Manual) Lymphocytes % (Manual) Nucleated RBC % Seg Neutrophils # Man Lymphocytes # (Manual) PT INR APTT ABG pH ABG pO2 ABG HCO3 ABG O2 Saturation ABG Base Excess ABG Hemoglobin Oxyhemoglobin Sodium Potassium Chloride Carbon Dioxide BUN Creatinine Glucose POC Glucose Calcium Phosphorus Magnesium Iron TIBC Ferritin Total Bilirubin Direct Bilirubin AST Alkaline Phosphatase Lactate Dehydrogenase Troponin T NT-Pro-B Natriuret Pep Total Protein Albumin LDL Cholesterol Direct Vitamin B12 Folate Urine WBC (Auto) 31.0 H Urine Creatinine 104.2 H 106.2 H Urine Total Protein 173 H 07/14/19 07/15/19 07/15/19 20:43 06:30 06:30 WBC RBC 3.06 L Hgb 9.9 L Hct 29.7 L MCV 97 H MCH 33 H RDW 19.5 H Plt Count 101 L Seg Neuts % (Manual) Lymphocytes % (Manual) Nucleated RBC % Seg Neutrophils # Man Lymphocytes # (Manual) PT INR APTT ABG pH ABG pO2 ABG HCO3 ABG O2 Saturation ABG Base Excess ABG Hemoglobin Oxyhemoglobin Sodium Potassium Chloride 95.2 L Carbon Dioxide BUN 42 H Creatinine 4.9 H Glucose POC Glucose 120 H Calcium Phosphorus Magnesium Iron TIBC Ferritin Total Bilirubin Direct Bilirubin AST 50 H Alkaline Phosphatase 191 H Lactate Dehydrogenase Troponin T NT-Pro-B Natriuret Pep Total Protein Albumin 3.1 L LDL Cholesterol Direct Vitamin B12 Folate Urine WBC (Auto) Urine Creatinine Urine Total Protein 07/15/19 07/15/19 07/15/19 06:30 06:30 12:42 WBC RBC Hgb Hct MCV MCH RDW Plt Count Seg Neuts % (Manual) Lymphocytes % (Manual) Nucleated RBC % Seg Neutrophils # Man Lymphocytes # (Manual) PT INR APTT ABG pH ABG pO2 ABG HCO3 ABG O2 Saturation ABG Base Excess ABG Hemoglobin Oxyhemoglobin Sodium Potassium Chloride Carbon Dioxide BUN Creatinine Glucose POC Glucose 140 H Calcium Phosphorus Magnesium Iron 15 L TIBC 186 L Ferritin 428.2 H Total Bilirubin Direct Bilirubin AST Alkaline Phosphatase Lactate Dehydrogenase Troponin T NT-Pro-B Natriuret Pep Total Protein Albumin LDL Cholesterol Direct Vitamin B12 Folate Urine WBC (Auto) Urine Creatinine Urine Total Protein 07/16/19 07/16/19 07/17/19 06:19 21:34 05:27 WBC RBC Hgb Hct MCV MCH RDW Plt Count Seg Neuts % (Manual) Lymphocytes % (Manual) Nucleated RBC % Seg Neutrophils # Man Lymphocytes # (Manual) PT INR APTT ABG pH ABG pO2 ABG HCO3 ABG O2 Saturation ABG Base Excess ABG Hemoglobin Oxyhemoglobin Sodium 134 L 134 L 136 L Potassium Chloride 92.9 L 93.4 L 93.6 L Carbon Dioxide 20 L BUN 55 H 40 H 43 H Creatinine 5.6 H 4.4 H 4.8 H Glucose POC Glucose Calcium Phosphorus Magnesium Iron TIBC Ferritin Total Bilirubin Direct Bilirubin AST Alkaline Phosphatase Lactate Dehydrogenase Troponin T NT-Pro-B Natriuret Pep Total Protein Albumin LDL Cholesterol Direct Vitamin B12 Folate Urine WBC (Auto) Urine Creatinine Urine Total Protein 07/17/19 07/17/19 07/17/19 12:10 12:52 13:50 WBC RBC Hgb Hct MCV MCH RDW Plt Count Seg Neuts % (Manual) Lymphocytes % (Manual) Nucleated RBC % Seg Neutrophils # Man Lymphocytes # (Manual) PT INR APTT ABG pH 7.262 L ABG pO2 195.5 H ABG HCO3 ABG O2 Saturation 99.1 H ABG Base Excess -2.9 L ABG Hemoglobin 8.6 L Oxyhemoglobin Sodium Potassium Chloride Carbon Dioxide BUN Creatinine Glucose POC Glucose 122 H 122 H Calcium Phosphorus Magnesium Iron TIBC Ferritin Total Bilirubin Direct Bilirubin AST Alkaline Phosphatase Lactate Dehydrogenase Troponin T NT-Pro-B Natriuret Pep Total Protein Albumin LDL Cholesterol Direct Vitamin B12 Folate Urine WBC (Auto) Urine Creatinine Urine Total Protein 07/18/19 07/18/19 07/18/19 04:20 05:40 05:40 WBC 22.7 H RBC 2.64 L Hgb 8.2 L Hct 24.9 L MCV 95 H MCH RDW 19.7 H Plt Count 94 L Seg Neuts % (Manual) Lymphocytes % (Manual) Nucleated RBC % Seg Neutrophils # Man Lymphocytes # (Manual) PT INR APTT ABG pH ABG pO2 238.9 H ABG HCO3 ABG O2 Saturation 99.4 H ABG Base Excess ABG Hemoglobin 10.9 L Oxyhemoglobin Sodium Potassium Chloride 94.5 L Carbon Dioxide BUN 61 H Creatinine 5.6 H Glucose 111 H POC Glucose Calcium Phosphorus 4.70 H Magnesium Iron TIBC Ferritin Total Bilirubin Direct Bilirubin AST Alkaline Phosphatase Lactate Dehydrogenase 294 H Troponin T NT-Pro-B Natriuret Pep Total Protein Albumin LDL Cholesterol Direct Vitamin B12 Folate Urine WBC (Auto) Urine Creatinine Urine Total Protein 07/18/19 07/18/19 07/19/19 05:40 Unknown 05:15 WBC RBC Hgb Hct MCV MCH RDW Plt Count Seg Neuts % (Manual) Lymphocytes % (Manual) Nucleated RBC % Seg Neutrophils # Man Lymphocytes # (Manual) PT INR APTT ABG pH ABG pO2 ABG HCO3 ABG O2 Saturation ABG Base Excess ABG Hemoglobin 11.6 L Oxyhemoglobin 94.3 L Sodium 133 L Potassium Chloride 94.9 L Carbon Dioxide BUN 43 H Creatinine 4.0 H Glucose 118 H POC Glucose Calcium Phosphorus Magnesium Iron TIBC Ferritin Total Bilirubin Direct Bilirubin 0.7 H AST 94 H Alkaline Phosphatase 159 H Lactate Dehydrogenase Troponin T NT-Pro-B Natriuret Pep Total Protein 5.6 L D Albumin 2.5 L LDL Cholesterol Direct Vitamin B12 Folate Urine WBC (Auto) Urine Creatinine Urine Total Protein 07/19/19 07/19/19 07/19/19 05:15 05:15 06:00 WBC 14.6 H RBC 2.57 L Hgb 8.2 L Hct 24.3 L MCV 95 H MCH RDW 19.5 H Plt Count 101 L Seg Neuts % (Manual) Lymphocytes % (Manual) Nucleated RBC % Seg Neutrophils # Man Lymphocytes # (Manual) PT INR APTT ABG pH ABG pO2 91.2 H ABG HCO3 27.5 H ABG O2 Saturation ABG Base Excess ABG Hemoglobin 8.3 L Oxyhemoglobin Sodium Potassium Chloride Carbon Dioxide BUN Creatinine Glucose POC Glucose Calcium Phosphorus Magnesium 0.20 L* Iron TIBC Ferritin Total Bilirubin Direct Bilirubin AST Alkaline Phosphatase Lactate Dehydrogenase Troponin T NT-Pro-B Natriuret Pep Total Protein Albumin LDL Cholesterol Direct Vitamin B12 Folate Urine WBC (Auto) Urine Creatinine Urine Total Protein 07/20/19 07/21/19 07/21/19 06:15 05:30 06:15 WBC RBC Hgb Hct MCV MCH RDW Plt Count Seg Neuts % (Manual) Lymphocytes % (Manual) Nucleated RBC % Seg Neutrophils # Man Lymphocytes # (Manual) PT INR APTT ABG pH ABG pO2 104.5 H ABG HCO3 27.9 H ABG O2 Saturation ABG Base Excess 3.3 H ABG Hemoglobin 8.2 L Oxyhemoglobin Sodium Potassium 3.3 L Chloride Carbon Dioxide BUN 61 H 74 H Creatinine 4.6 H 4.3 H Glucose 117 H 127 H POC Glucose Calcium Phosphorus Magnesium Iron TIBC Ferritin Total Bilirubin Direct Bilirubin AST Alkaline Phosphatase Lactate Dehydrogenase Troponin T NT-Pro-B Natriuret Pep Total Protein Albumin LDL Cholesterol Direct Vitamin B12 Folate Urine WBC (Auto) Urine Creatinine Urine Total Protein 07/21/19 07/21/19 07/21/19 06:15 08:00 08:00 WBC 11.8 H RBC 2.45 L Hgb 7.9 L Hct 23.5 L MCV 96 H MCH RDW 19.4 H Plt Count Seg Neuts % (Manual) Lymphocytes % (Manual) Nucleated RBC % Seg Neutrophils # Man Lymphocytes # (Manual) PT INR APTT ABG pH ABG pO2 ABG HCO3 ABG O2 Saturation ABG Base Excess ABG Hemoglobin Oxyhemoglobin Sodium Potassium Chloride Carbon Dioxide BUN Creatinine Glucose POC Glucose Calcium Phosphorus Magnesium Iron TIBC Ferritin Total Bilirubin Direct Bilirubin AST Alkaline Phosphatase Lactate Dehydrogenase Troponin T NT-Pro-B Natriuret Pep Total Protein Albumin LDL Cholesterol Direct Vitamin B12 960.4 H Folate 6.18 L Urine WBC (Auto) Urine Creatinine Urine Total Protein
[2019-07-21 10:48] LABS: ABG Base Excess 2.3 mmol/L (-2.0-3.0); ABG HCO3 26.3 mmol/L (20.0-26.0); ABG Methemoglobin 0.5 % (0.0-1.5); ABG PCO2 38.1 mm Hg; ABG PH 7.457 pH Units (7.350-7.450)
--- NOTE | 2019-07-21 10:48 | Progress Note ---
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 Subjective Date of service: 07/21/19 Principal diagnosis: BRODIE Interval history: Patient remains intubated, unresponsive on the vent. Objective Vital Signs Temp Pulse Pulse Resp BP Pulse Ox 07/21/19 10:00 96 H 26 H 143/79 98 07/21/19 09:30 99 H 26 H 139/76 100 07/21/19 09:00 94 H 25 H 133/69 100 07/21/19 08:46 95 H 100 07/21/19 08:34 94 H 134/73 100 07/21/19 08:30 94 H 21 134/73 100 07/21/19 08:00 87 17 127/69 99 07/21/19 07:30 91 H 18 131/70 100 07/21/19 07:00 107 H 23 156/90 100 07/21/19 06:30 91 H 20 147/79 100 07/21/19 06:00 93 H 15 140/73 100 07/21/19 05:30 92 H 19 134/68 100 07/21/19 05:00 97 H 20 129/70 100 07/21/19 04:30 90 19 134/69 100 07/21/19 04:00 97 H 23 140/75 98 07/21/19 03:55 98.7 F 07/21/19 03:30 87 19 135/68 100 07/21/19 03:00 98 H 18 141/78 100 07/21/19 02:45 90 112/69 100 07/21/19 02:30 87 20 126/70 100 07/21/19 02:00 88 19 122/69 99 07/21/19 01:30 89 20 134/77 98 07/21/19 01:00 88 20 123/67 99 07/21/19 00:30 86 21 125/65 100 02/03/20 00:00 98.6 F 91 H 20 127/72 100 07/20/19 23:30 87 20 133/72 99 07/20/19 23:01 101 H 20 171/105 100 07/20/19 22:30 85 20 123/69 99 07/20/19 22:21 89 21 121/67 99 07/20/19 22:00 87 17 121/67 100 07/20/19 21:30 93 H 17 147/80 99 07/20/19 21:00 104 H 18 150/94 100 07/20/19 20:30 95 H 21 130/72 100 07/20/19 20:00 99.6 F 91 H 20 116/63 100 07/20/19 19:30 87 19 114/59 100 07/20/19 19:00 97 H 22 130/79 100 07/20/19 18:31 109 H 25 H 155/94 100 07/20/19 18:00 94 H 21 130/73 100 07/20/19 17:54 24 07/20/19 17:30 88 20 116/65 100 07/20/19 17:01 91 H 19 123/65 99 07/20/19 16:55 101.1 F H 07/20/19 16:30 90 21 116/64 99 07/20/19 16:00 101.1 F H 89 94 H 20 124/68 99 07/20/19 15:52 88 120/70 100 07/20/19 15:30 91 H 21 123/69 99 07/20/19 15:01 98 H 22 130/76 99 07/20/19 14:30 94 H 21 130/72 99 07/20/19 14:00 89 20 126/68 98 07/20/19 13:30 91 H 20 125/68 99 07/20/19 13:00 93 H 20 124/70 99 07/20/19 12:30 88 20 125/69 98 07/20/19 12:18 86 124/65 100 07/20/19 12:01 102 H 21 156/79 99 07/20/19 12:00 97.9 F 99 H 99 H 20 100 07/20/19 11:30 84 16 132/65 99 07/20/19 11:00 86 17 123/66 99 - Physical Examination General: Other (unresponsive on the vent) Cardiac: Positive: Reg Rate and Rhythm - Labs and Meds CBC 07/21/19 Range/Units 06:15 WBC 11.8 H (4.5-11.0) K/mm3 RBC 2.45 L (3.65-5.03) M/mm3 Hgb 7.9 L (11.8-15.2) gm/dl Hct 23.5 L (35.5-45.6) % Plt Count 167 (140-440) K/mm3 Comprehensive Metabolic Panel 07/21/19 Range/Units 06:15 Sodium 139 (137-145) mmol/L Potassium 3.3 L (3.6-5.0) mmol/L Chloride 100.4 (98-107) mmol/L Carbon Dioxide 23 (22-30) mmol/L BUN 74 H (9-20) mg/dL Creatinine 4.3 H (0.8-1.5) mg/dL Glucose 127 H (75-100) mg/dL Calcium 8.6 (8.4-10.2) mg/dL
[2019-07-21 10:53] LABS: Total Protein,Body Fluid 4.7 (15.0-45.0)
--- NOTE | 2019-07-21 14:59 | Progress Note ---
Assessment and Plan Assessment and plan: Patient is a 48-year-old man with a history of being deaf (writes to communicate) HTN, Systolic CHF(EF 20%), anxiety, depression COPD and GERD who presented to [facility] ED with severe SOB. EMS found patient to have a pulse oximetry of 80% on room air, improved to 92% on 2 L of supplemental oxygen. Patient was confused and provided limited history. Patient refused BiPAP. Patient given 40 mg of Lasix IV and and EMS gave 40mg iv lasix prior to arrival. Patient was found to have left lower lobe pneumonia, complicated by acute respiratory failure, severe Uremia, hyponatremia, hyperkalemia, metabolic acidosis. Patient admitted to medical floor for medical stabilization and treatment due to high risk for cardiopulmonary and renal decompensation. Nephrology team consulted in ED for urgent dialysis. Patient initiated on pneumonia protocol with IV antibiotic therapy. Patient treated with calcium gluconate and Kayexalate for hyperkalemia in ED. EKG showed no changes. Patient mental status so poor he had to be put in restraints to prevent for pulling and removing O2. Next day, patient remained confused, so He went down for CT head and he must've removed O2 mask while in CT scanner or had a fatal cardiac arrhythmia which he was experiencing NSVT/aflutter with RVR the night before. This led to Cardiac arrest. ED physician was the first to respond and saw Asystole on the monitor, ACLS done and when I arrived he was in PEA. He was a difficult Intubation as he had bleeding in the Endotracheal area due to Eliquis which was started on 07/16/2019. He was intubated by ED physician. Pulse was restored and he was sent to the ICU, where he had another Cardiac arrest with PEA, ACLS done again and pulse restored. Overnight he was posturing. He is comatose without any sedative. * pCXR showed bilateral pleural effusion with significant pulmonary congestion. EKG showed no ST elevation. * Initial Labs: WBC 14.7, hgb 9.7, plt 124, Na 125, k 5.5, co2 13, BUN 70, Cr 8.8 Acute on chronic systolic heart failure decompensation leading to respiratory failure: treated with Ultrafiltration via HD due to severe renal failure, ultrafiltration removed 4 liters Acute hypoxic respiratory failure, refused non-invasive ventilation; therefore, treat with other means, patient noncompliance with wearing O2, insurance counsel that this will led to his demise, which most likely led to Cardiac arrest Severe ARF, suspected due to ATN, cardiorenal, vasomotor poa: treated with emergent HD, has right groin, daily assessment of HD, d/w nephrology, will need [facility] HD, referral sent out, stop PPI LLL pneumonia: treat with IV abx, unsure if SIRS or sepsis poa, see admitting doctor notes: treat with iv levaquin renal dose, AMS, acute metabolic encephalopathy, poa, thought to be due to severe Uremia, but uremia improved and he still confused, needing restraints, CT head unrevealing, history of alcohol abuse Anemia appears AOCD due to renal dysfunction: continue to monitor cbc Thrombocytopenia: repeat cbc Morbid Obesity, bmi 44.1: insurance counsel on lifestyle modification Language Barrier/Deafness: communicates via paper AFlutter with RVR on 07/16/2019: treat with coreg and Eliquis initiated by Dr. Sadler, NSVT 07/16/2019 overnight: bb Suspect Anoxic brain injury: consulted Neurology full code DVT ppx: scd only Dispo: continue inpatient ICU care, still unresponsive since Cardiac arrest, doesn't need restraints, will cancel. Neurologist, mentions anoxic injury. Dr. Puckett ordered EEG. I called and spoke father Mr. Carreon and gave him update @ [phone]. EEG pending and we should know more after that History Interval history: Patient was seen and examined. Follow-up on current diagnosis of ARF, CHF, respiratory failure, still with SOB and low energy. Overnight eventful as patient had posturing and given iv ativan. Patient denies any chest pain, nausea/vomiting or severe headaches. Imaging, nursing note, chart, labs and old chart reviewed. Discussed with patient. Hospitalist Physical - Physical exam Narrative exam: Gen: chronic ill appearing, morbid obese bmi 44.1, mild resp failure, a/o x3 HEENT: significant alopecia, NCAT, EOMI, PERRL, OP Clear Neck: supple, no adenopathy, no thyromegaly, +JVD CVS/Heart: RRR, normal S1S2, pulses present bilaterally Chest/Lungs: diminised bs bilateral, Symmetrical chest expansion, good air entry bilaterally GI/Abdomen: soft, NTND, good bowel sounds, no guarding or rebound /Bladder: no suprapubic tenderness, no CVA or paraspinal tenderness Extermity/Skin: ble leg edema, no obvious rash MSK: FROM x 4 Neuro: CN 2-12 grossly intact, no new focal deficits Psych: calm - Constitutional Vitals: Temp Pulse Resp BP Pulse Ox 98.9 F 100 H 16 133/65 100 07/21/19 13:31 07/21/19 12:38 07/21/19 12:00 07/21/19 12:38 07/21/19 12:38 General appearance: Present: no acute distress Results - Labs CBC & Chem 7: 07/21/19 06:15 07/21/19 06:15 Labs: Laboratory Last Values WBC 11.8 K/mm3 (4.5-11.0) H 07/21/19 06:15 RBC 2.45 M/mm3 (3.65-5.03) L 07/21/19 06:15 Hgb 7.9 gm/dl (11.8-15.2) L 07/21/19 06:15 Hct 23.5 % (35.5-45.6) L 07/21/19 06:15 MCV 96 fl (84-94) H 07/21/19 06:15 MCH 32 pg (28-32) 07/21/19 06:15 MCHC 34 % (32-34) 07/21/19 06:15 RDW 19.4 % (13.2-15.2) H 07/21/19 06:15 Plt Count 167 K/mm3 (140-440) 07/21/19 06:15 Lymph % (Auto) Cvir Tech 07/13/19 04:28 [place] % (Auto) Cvir Tech 07/13/19 04:28 Eos % (Auto) Cvir Tech 07/13/19 04:28 Baso % (Auto) Cvir Tech 07/13/19 04:28 Lymph # Cvir Tech 07/13/19 04:28 [place] # Cvir Tech 07/13/19 04:28 Eos # Cvir Tech 07/13/19 04:28 Baso # Cvir Tech 07/13/19 04:28 Add Manual Diff Complete 07/14/19 07:16 Total Counted 100 07/14/19 07:16 Seg Neutrophils % Cvir Tech 07/13/19 04:28 Seg Neuts % (Manual) 89.0 % (40.0-70.0) H 07/14/19 07:16 Band Neutrophils % 0 % 07/14/19 07:16 Lymphocytes % (Manual) 4.0 % (13.4-35.0) L 07/14/19 07:16 Reactive Lymphs % (Man) 0 % 07/14/19 07:16 Monocytes % (Manual) 7.0 % (0.0-7.3) 07/14/19 07:16 Eosinophils % (Manual) 0 % (0.0-4.3) 07/14/19 07:16 Basophils % (Manual) 0 % (0.0-1.8) 07/14/19 07:16 Metamyelocytes % 0 % 07/14/19 07:16 Myelocytes % 0 % 07/14/19 07:16 Promyelocytes % 0 % 07/14/19 07:16 Blast Cells % 0 % 07/14/19 07:16 Nucleated RBC % Not Reportable 07/14/19 07:16 Seg Neutrophils # Cvir Tech 07/13/19 04:28 Seg Neutrophils # Man 7.7 K/mm3 (1.8-7.7) 07/14/19 07:16 Band Neutrophils # 0.0 K/mm3 07/14/19 07:16 Lymphocytes # (Manual) 0.3 K/mm3 (1.2-5.4) L 07/14/19 07:16 Abs React Lymphs (Man) 0.0 K/mm3 07/14/19 07:16 Monocytes # (Manual) 0.6 K/mm3 (0.0-0.8) 07/14/19 07:16 Eosinophils # (Manual) 0.0 K/mm3 (0.0-0.4) 07/14/19 07:16 Basophils # (Manual) 0.0 K/mm3 (0.0-0.1) 07/14/19 07:16 Metamyelocytes # 0.0 K/mm3 07/14/19 07:16 Myelocytes # 0.0 K/mm3 07/14/19 07:16 Promyelocytes # 0.0 K/mm3 07/14/19 07:16 Blast Cells # 0.0 K/mm3 07/14/19 07:16 WBC Morphology Not Reportable 07/14/19 07:16 Hypersegmented Neuts Not Reportable 07/14/19 07:16 Hyposegmented Neuts Not Reportable 07/14/19 07:16 Hypogranular Neuts Not Reportable 07/14/19 07:16 Smudge Cells Not Reportable 07/14/19 07:16 Toxic Granulation Not Reportable 07/14/19 07:16 Toxic Vacuolation Not Reportable 07/14/19 07:16 Dohle Bodies Not Reportable 07/14/19 07:16 Pelger-Huet Anomaly Not Reportable 07/14/19 07:16 Mack Rods Not Reportable 07/14/19 07:16 Platelet Estimate Consistent w auto 07/14/19 07:16 Clumped Platelets Not Reportable 07/14/19 07:16 Plt Clumps, EDTA Not Reportable 07/14/19 07:16 Large Platelets Not Reportable 07/14/19 07:16 Giant Platelets Not Reportable 07/14/19 07:16 Platelet Satelliting Not Reportable 07/14/19 07:16 Plt Morphology Comment Not Reportable 07/14/19 07:16 RBC Morphology Not Reportable 07/14/19 07:16 Dimorphic RBCs Not Reportable 07/14/19 07:16 Polychromasia Not Reportable 07/14/19 07:16 Hypochromasia Not Reportable 07/14/19 07:16 Poikilocytosis Not Reportable 07/14/19 07:16 Anisocytosis 1+ 07/14/19 07:16 Microcytosis Not Reportable 07/14/19 07:16 Macrocytosis Not Reportable 07/14/19 07:16 Spherocytes Not Reportable 07/14/19 07:16 Pappenheimer Bodies Not Reportable 07/14/19 07:16 Sickle Cells Not Reportable 07/14/19 07:16 Target Cells Few 07/14/19 07:16 Tear Drop Cells Not Reportable 07/14/19 07:16 Ovalocytes Not Reportable 07/14/19 07:16 Helmet Cells Not Reportable 07/14/19 07:16 Jackson-Helemano Bodies Not Reportable 07/14/19 07:16 [place] Rings Not Reportable 07/14/19 07:16 [place] Cells Not Reportable 07/14/19 07:16 Bite Cells Not Reportable 07/14/19 07:16 Crenated Cell Not Reportable 07/14/19 07:16 Elliptocytes Not Reportable 07/14/19 07:16 Acanthocytes (Spur) Not Reportable 07/14/19 07:16 Rouleaux Not Reportable 07/14/19 07:16 Hemoglobin C Crystals Not Reportable 07/14/19 07:16 Schistocytes Not Reportable 07/14/19 07:16 Malaria parasites Not Reportable 07/14/19 07:16 Víctor Bodies Not Reportable 07/14/19 07:16 Hem Pathologist Commnt No 07/14/19 07:16 PT 19.8 Sec. (12.2-14.9) H 07/12/19 15:08 INR 1.65 (0.87-1.13) H 07/12/19 15:08 APTT 47.8 Sec. (24.2-36.6) H 07/12/19 15:08 ABG pH 7.427 pH Units (7.350-7.450) 07/21/19 05:30 ABG pCO2 43.3 mm Hg 07/21/19 05:30 ABG pO2 104.5 mm Hg (80.0-90.0) H 07/21/19 05:30 ABG HCO3 27.9 mmol/L (20.0-26.0) H 07/21/19 05:30 ABG O2 Saturation 97.8 % (95.0-99.0) 07/21/19 05:30 ABG O2 Content 11.1 (0.0-44) 07/21/19 05:30 ABG Base Excess 3.3 mmol/L (-2.0-3.0) H 07/21/19 05:30 ABG Hemoglobin 8.2 gm/dl (14.0-18.0) L 07/21/19 05:30 ABG Carboxyhemoglobin 1.9 % (0.0-5.0) 07/21/19 05:30 ABG Methemoglobin 0.5 % (0.0-1.5) 07/21/19 05:30 Oxyhemoglobin 95.4 % (95.0-99.0) 07/21/19 05:30 FiO2 40 % 07/21/19 05:30 Sodium 139 mmol/L (137-145) 07/21/19 06:15 Potassium 3.3 mmol/L (3.6-5.0) L 07/21/19 06:15 Chloride 100.4 mmol/L (98-107) 07/21/19 06:15 Carbon Dioxide 23 mmol/L (22-30) 07/21/19 06:15 Anion Gap 19 mmol/L 07/21/19 06:15 BUN 74 mg/dL (9-20) H 07/21/19 06:15 Creatinine 4.3 mg/dL (0.8-1.5) H 07/21/19 06:15 Estimated GFR 18 ml/min 07/21/19 06:15 BUN/Creatinine Ratio 17 % 07/21/19 06:15 Glucose 127 mg/dL (75-100) H 07/21/19 06:15 POC Glucose 122 (70-105) H 07/17/19 12:52 Calcium 8.6 mg/dL (8.4-10.2) 07/21/19 06:15 Phosphorus 2.90 mg/dL (2.5-4.5) 07/20/19 06:15 Magnesium 1.70 mg/dL (1.7-2.3) 07/21/19 06:15 Iron 15 ug/dL (49-181) L 07/15/19 06:30 TIBC 186 mcg/dL (250-450) L 07/15/19 06:30 Ferritin 428.2 ng/mL (13.0-400.0) H 07/15/19 06:30 Total Bilirubin 1.10 mg/dL (0.1-1.2) 07/18/19 05:40 Direct Bilirubin 0.7 mg/dL (0-0.2) H 07/18/19 05:40 Indirect Bilirubin 0.4 mg/dL 07/18/19 05:40 AST 94 units/L (5-40) H 07/18/19 05:40 ALT 16 units/L (7-56) 07/18/19 05:40 Alkaline Phosphatase 159 units/L (35-129) H 07/18/19 05:40 Lactate Dehydrogenase 294 units/L (91-180) H 07/18/19 05:40 Total Creatine Kinase 59 units/L (55-170) 07/14/19 07:16 Troponin T 0.188 ng/mL (0.00-0.029) H* 07/12/19 17:04 NT-Pro-B Natriuret Pep > 31586 pg/mL (0-450) H 07/12/19 15:08 Total Protein 5.6 g/dL (6.3-8.2) L D 07/18/19 05:40 Albumin 2.5 g/dL (3.9-5) L 07/18/19 05:40 Albumin/Globulin Ratio 0.8 % 07/18/19 05:40 Triglycerides 128 mg/dL (2-149) 07/12/19 15:08 Cholesterol 121 mg/dL (50-199) 07/12/19 15:08 LDL Cholesterol Direct 40 mg/dL (50-130) L 07/12/19 15:08 HDL Cholesterol 44 mg/dL (40-59) 07/12/19 15:08 Cholesterol/HDL Ratio 2.75 % 07/12/19 15:08 Vitamin B12 960.4 pg/mL (211-911) H 07/21/19 08:00 Folate 6.18 ng/mL (7.3-26.0) L 07/21/19 08:00 Urine Color Eugenia (Yellow) 07/14/19 17:28 Urine Turbidity Slightly-cloudy (Clear) 07/14/19 17:28 Urine pH 5.0 (5.0-7.0) 07/14/19 17:28 Ur Specific [place] 1.014 (1.003-1.030) 07/14/19 17:28 Urine Protein 100 mg/dl mg/dL (Negative) 07/14/19 17:28 Urine Glucose (UA) Neg mg/dL (Negative) 07/14/19 17:28 Urine Ketones Neg mg/dL (Negative) 07/14/19 17:28 Urine Blood Sm (Negative) 07/14/19 17:28 Urine Nitrite Neg (Negative) 07/14/19 17:28 Urine Bilirubin Neg (Negative) 07/14/19 17:28 Urine Urobilinogen < 2.0 mg/dL (<2.0) 07/14/19 17:28 Ur Leukocyte Esterase Neg (Negative) 07/14/19 17:28 Urine WBC (Auto) 31.0 /HPF (0.0-6.0) H 07/14/19 17:28 Urine RBC (Auto) 3.0 /HPF (0.0-6.0) 07/14/19 17:28 U Epithel Cells (Auto) < 1.0 /HPF (0-13.0) 07/14/19 17:28 Urine Bacteria (Auto) 1+ /HPF (Negative) 07/14/19 17:28 Urine Mucus Few /HPF 07/14/19 17:28 Urine Yeast (Budding) Few /HPF 07/14/19 17:28 Urine Eosinophils Rare seen (None Seen) 07/14/19 17:28 Urine Creatinine 106.2 mg/dL (0.1-20.0) H 07/14/19 17:28 Protein/Creatinin Ratio 1.66 07/14/19 16:40 Urine Sodium 67 mmol/L 07/14/19 17:28 Urine Urea Nitrogen 100 07/14/19 17:28 Urine Total Protein 173 mg/dL (5-11.8) H 07/14/19 16:40 Fluid Type Paracentesis 07/14/19 10:45 Fluid Color Bloody 07/14/19 10:45 Fluid Appearance Bloody 07/14/19 10:45 Fluid WBC 120 /mm3 07/14/19 10:45 Fluid RBC 77928 /mm3 07/14/19 10:45 Fluid Seg Neutrophils 33.0 % 07/14/19 10:45 Fluid Lymphocytes 17.0 % 07/14/19 10:45 Fluid Reactive Lymphs 0 % 07/14/19 10:45 Fluid Monocytes 50.0 % 07/14/19 10:45 Fluid Eosinophils 0 % 07/14/19 10:45 Fluid Basophils 0 % 07/14/19 10:45 Fluid Glucose 93 mg/dL (40-70) H 07/14/19 10:45 Fluid Total Protein 4.7 (15.0-45.0) L 07/14/19 10:45 Fluid LDH 07/14/19 10:45 Random Vancomycin 14.5 ug/mL (0-40.0) 07/19/19 05:15 SHANNA Screen Negative (Negative) 07/14/19 11:50 Proteinase 3 (PR3) Ab <1.0 AI (<1.0) 07/14/19 11:50 Myeloperoxidase Ab <1.0 AI (<1.0) 07/14/19 11:50 Complement C3 124 mg/dL (82-185) 07/14/19 11:50 Complement C4 28 mg/dL (15-53) 07/14/19 11:50 Hepatitis A IgM Ab Non-reactive (NonReactive) 07/12/19 17:49 Hep Bs Antigen Non-reactive (Negative) 07/14/19 11:50 Hep B Core IgM Ab Non-reactive (NonReactive) 07/12/19 17:49 Hepatitis C Antibody Non-reactive (NonReactive) 07/14/19 11:50 HIV-1 Antibody See scanned result 07/14/19 11:50 HIV-2 Ab (Immunoblot) See scanned result 07/14/19 11:50 Schistocytes Smear Rare 07/18/19 05:40 Active Medications - Current Medications Current Medications: Generic Name Dose Route Start Last Admin Trade Name Freq PRN Reason Stop Dose Admin Acetaminophen 650 mg 07/20/19 16:56 07/20/19 17:54 Tylenol FEEDTUBE 650 mg Q6H PRN Administration Fever >101 Albuterol 2.5 mg 07/14/19 04:54 07/16/19 13:42 Proventil IH 2.5 mg Q4HRT PRN Administration Shortness Of Breath Lipase/Protease/Amylase 1 each 07/18/19 13:[address] 10,500 Unit FEEDTUBE PRN PRN For Clogged Feeding Tube Epoetin Barney 10,000 unit 07/14/19 10:13 07/18/19 22:04 Procrit IV 10,000 unit CHEMA PRN Administration DIALYSIS Haloperidol Lactate 5 mg 07/12/19 21:35 07/12/19 21:09 Haldol IV 5 mg Q1H PRN Administration Unrespon. to mult. doses BZD's Sodium Chloride 100 mls @ 999 mls/hr 07/16/19 12:11 Nacl 0.9% IV CHEMA PRN Hypotension Norepinephrine 8 mg/ Sodium 250 mls @ 3.75 mls/hr 07/17/19 14:00 07/18/19 20:39 Chloride IV 0 mcg/min TITR TERRELL 0 mls/hr Titration Protocol 2 MCG/MIN Vasopressin 20 unit/ Sodium 101 mls @ 9.09 mls/hr 07/17/19 15:00 Chloride IV TITR TERRELL Protocol 0.03 UNITS/MIN Thiamine HCl 100 mg/ Sodium 51 mls @ 100 mls/hr 07/18/19 10:00 07/21/19 09:39 Chloride IV 07/21/19 23:59 100 mls/hr QDAY TERRELL Administration Metronidazole 500 mg in 100 mls @ 100 mls/hr 07/17/19 17:00 07/21/19 06:27 Flagyl 500 Mg/100 Ml IV 100 mls/hr Q8HR TERRELL Administration Protocol Cefepime HCl 1 gm in 100 mls @ 200 mls/hr 07/17/19 17:20 07/20/19 17:54 Cefepime/Ns 1 Gm/100 Ml IV 200 mls/hr Q24H TERRELL Administration Lansoprazole 30 mg 07/18/19 11:00 07/21/19 09:39 Prevacid Solutab FEEDTUBE 30 mg QDAY TERRELL Administration Simple Syrup 15 ml 07/18/19 13:20 Simple Syrup FEEDTUBE PRN PRN Hypoglycemia Simple Syrup 30 ml 07/18/19 13:20 Simple Syrup FEEDTUBE PRN PRN Hypoglycemia Sodium Bicarbonate 325 mg 07/18/19 13:20 Sodium Bicarbonate FEEDTUBE PRN PRN For Clogged Feeding Tube Thiamine HCl 100 mg 07/22/19 10:00 Vitamin B-1 PO QDAY TERRELL Nutrition/Malnutrition Assess - Dietary Evaluation Nutrition/Malnutrition Findings: Nutrition Notes Start: 07/18/19 12:09 Freq: Status: Active Protocol: Document 07/21/19 09:20 LP (Rec: 07/21/19 09:24 LP [id number]) Nutrition Notes Initial or Follow up Reassessment Current Diagnosis Acute Kidney Injury, Hypertension,Heart Failure, Respiratory Failure Other Pertinent Diagnosis on HD , metabolic acidosis, pnuemonia Current Diet Nepro at 41ml/hr Labs/Tests K 3.3 BUN 74 Cr 4.3 BG 127 Pertinent Medications Reviewed Height 5 ft 10 in Weight 101.6 kg [place] Body Weight (kg) 75.45 BMI 32.1 Subjective/Other Information Pt tolerating Nepro at 41ml/hr . Pt remains on vent. Percent of energy/protein needs met: 100%/53% Burn Absent Trauma Absent GI Symptoms None Difficulty In Swallowing,Chewing Current % PO Negligible Minimum of two criteria Yes Energy Intake (severe) < or equal to 50% Estimated Energy Requirement > or equal to 5 days Muscle Mass Mild Depletion (non-severe) Fluid Accumulation Moderate to Severe (severe) Reduced Pot Liner Strength Measurably Reduced (severe) #2 Nutrition Diagnosis Malnutrition Diagnosis Progress(for reassessment Continues documentation) #1 Nutrition Diagnosis Inadequate oral intake Diagnosis Progress(for reassessment Continues documentation) Is patient on ventilator? Yes Is Patient Ambulatory and/or Out of Bed No REE-([facility]-confined to bed) 2268.180 Kcal/Kg value to use for calculation 17 Approximate Energy Requirements Using 1727 kcal/Kg Calculation Used for Recommendations Kcal/kg Additional Notes Protein needs: 150 g (> 2 g/ kgIBW) Fluid needs: 1000 - 1500 ml ( on HD/ Anuric) Nutrition Intervention Change Diet Order: TF Nutrition Support: Nepro 1.8 at 41 ml/hr. Water flush of 130 ml q4h. Kcal 1,771 Protein (gm) 80 Fluid (mL) 715 Goal #1 Meet at least 75% of protein and energy needs Anticipated Discharge Needs: unble to determine at this time Follow-Up By: 07/24/19 Additional Comments Follow for stable TF tolerance
--- NOTE | 2019-07-21 16:42 | Progress Note ---
Assessment and Plan Cultures: 07/12/2019 blood culture: Negative 07/14/2019 urine culture: mixed growth 07/17/2019 tracheal aspirate: Gram-negative rods A/P: 48/M with deafness, HTN, CHF, anxiety, depression, COPD was admitted to the hospital on 07/12/2019 with shortness of breath, found to have hypoxia and renal failure and was started on urgent dialysis, now with: #Shock, following PEA cardiac arrest #Bilateral multifocal pneumonia, acute respiratory failure: Possibly aspiration v/s lung contusion from CPR following cardiac arrest. Culture growing GNR. Empiric cefepime, vancomycin and Flagyl for now, anticipate stopping vancomycin soon. #Acute renal failure: Dialysis requiring. Nephrology following, evaluating for glomerulonephritis and vasculitis. Patient also has rare schistocytes in per ipheral blood along with few eosinophils in urine. Renally dose abx. #CHF #Acute encephalopathy: post arrest. Recs: - Empiric renally dosed cefepime, Flagyl for now - follow up respiratory cultures, fever and WBC Will follow. Salo Morgan MD [facility] ([facility] M: [phone] O: [phone] F: [phone] Subjective Date of service: 07/21/19 Principal diagnosis: BRODIE Interval history: Afebrile, improving white count. Objective - Exam Narrative Exam: Constitutional: No acute distress, obese Head, Ears, Nose: Normocephalic, atraumatic. External ears, nose normal Eyes: Conjunctivae/corneas clear. No icterus. No ptosis. Cardiovascular: S1, S2 normal. Respiratory: Good air entry, clear to auscultation bilaterally GI: Soft, non-tender; bowel sounds + Musculoskeletal: No pedal edema, no cyanosis. Skin: No rash or abscess Hem/Lymphatic: No palpable cervical or supraclavicular nodes. No lymphangitis Psych: no agitation Neurological: No defects - Constitutional Vitals: Vital Signs Temp Pulse Resp BP Pulse Ox 98.9 F 103 H 20 135/74 97 07/21/19 13:31 07/21/19 15:30 07/21/19 15:30 07/21/19 15:30 07/21/19 15:30 Temperature -Last 24 Hours Temperature 98.9 F Temperature 99.0 F Temperature 98.7 F Temperature 98.6 F Temperature 99.6 F Temperature 101.1 F - Labs CBC & Chem 7: 07/21/19 06:15 07/21/19 06:15 Labs: Abnormal lab results 07/14/19 07/18/19 07/21/19 Range/Units 10:45 10:30 05:30 WBC (4.5-11.0) K/mm3 RBC (3.65-5.03) M/mm3 Hgb (11.8-15.2) gm/dl Hct (35.5-45.6) % MCV (84-94) fl RDW (13.2-15.2) % ABG pH 7.457 H (7.350-7.450) pH Units ABG pO2 104.5 H (80.0-90.0) mm Hg ABG HCO3 26.3 H 27.9 H (20.0-26.0) mmol/L ABG Base Excess 3.3 H (-2.0-3.0) mmol/L ABG Hemoglobin 7.8 L 8.2 L (14.0-18.0) gm/dl Oxyhemoglobin 94.6 L (95.0-99.0) % Potassium (3.6-5.0) mmol/L BUN (9-20) mg/dL Creatinine (0.8-1.5) mg/dL Glucose (75-100) mg/dL Vitamin B12 (211-911) pg/mL Folate (7.3-26.0) ng/mL Fluid Glucose 93 H (40-70) mg/dL Fluid Total Protein 4.7 L (15.0-45.0) 07/21/19 07/21/19 07/21/19 Range/Units 06:15 06:15 08:00 WBC 11.8 H (4.5-11.0) K/mm3 RBC 2.45 L (3.65-5.03) M/mm3 Hgb 7.9 L (11.8-15.2) gm/dl Hct 23.5 L (35.5-45.6) % MCV 96 H (84-94) fl RDW 19.4 H (13.2-15.2) % ABG pH (7.350-7.450) pH Units ABG pO2 (80.0-90.0) mm Hg ABG HCO3 (20.0-26.0) mmol/L ABG Base Excess (-2.0-3.0) mmol/L ABG Hemoglobin (14.0-18.0) gm/dl Oxyhemoglobin (95.0-99.0) % Potassium 3.3 L (3.6-5.0) mmol/L BUN 74 H (9-20) mg/dL Creatinine 4.3 H (0.8-1.5) mg/dL Glucose 127 H (75-100) mg/dL Vitamin B12 960.4 H (211-911) pg/mL Folate (7.3-26.0) ng/mL Fluid Glucose (40-70) mg/dL Fluid Total Protein (15.0-45.0) 07/21/19 Range/Units 08:00 WBC (4.5-11.0) K/mm3 RBC (3.65-5.03) M/mm3 Hgb (11.8-15.2) gm/dl Hct (35.5-45.6) % MCV (84-94) fl RDW (13.2-15.2) % ABG pH (7.350-7.450) pH Units ABG pO2 (80.0-90.0) mm Hg ABG HCO3 (20.0-26.0) mmol/L ABG Base Excess (-2.0-3.0) mmol/L ABG Hemoglobin (14.0-18.0) gm/dl Oxyhemoglobin (95.0-99.0) % Potassium (3.6-5.0) mmol/L BUN (9-20) mg/dL Creatinine (0.8-1.5) mg/dL Glucose (75-100) mg/dL Vitamin B12 (211-911) pg/mL Folate 6.18 L (7.3-26.0) ng/mL Fluid Glucose (40-70) mg/dL Fluid Total Protein (15.0-45.0)
--- NOTE | 2019-07-21 16:48 | Progress Note ---
Assessment and Plan Acute Kidney Injury possibly prerenal/ATN, cardiorenal syndrome, diuretics, ACEI, AIN from NSAIDs, ? underlying CKD process, no obstruction Hyperkalemia High Anion Gap Metabolic Acidosis Acute respiratory failure LLL PNA Anemia Hypomagnesemia S/p Cardiac Arrest Acute on chronic systolic CHF Questionable Anoxic Brain Injury Plan: - Renal function reviewed, SCr level was 4.3 today, yesterday's SCr level was 4.6 - No acute indication for HD today - Assess need for HD on daily basis - S/p Right femoral Vas catheter placement for STAT HD on 07/12/19 - Monitor for signs of renal recovery - Epogen dosing for anemia management - Repeat K+ level at 1700 - Secondary GN and vasculitis work up ordered, so far negative for ANCA, SHANNA, normal complement, negative HCV, HBV, HIV, pending anti-GBM, but has rare schisto with elevated LDH, consulted hematology - Vascular surgery consulted to exchange Vas Cath to perm catheter placement - Renal US mentioned moderate ascites, but no hydronephrosis - Neuro consulted for concern of anoxic brain injury, f/u recs - S/p US guided paracentesis with removal of 3200 ml on 07/15/19 - Renally dose medications - Intake= 1985 ml Output= 1100 ml ( Net= 885 ml) - Renal plan d/w Dr Cohn Subjective Date of service: 07/21/19 Principal diagnosis: BRODIE Interval history: Pt intubated in ICU, unresponsive, intubated on ventilator Objective - Vital Signs Vital signs: Vital Signs - 12hr 07/21/19 07/21/19 07/21/19 05:00 05:30 06:00 Temperature Pulse Rate 97 H 92 H 93 H Respiratory 20 19 15 Rate Blood Pressure 129/70 134/68 140/73 O2 Sat by Pulse 100 100 100 Oximetry 07/21/19 07/21/19 07/21/19 06:30 07:00 07:30 Temperature Pulse Rate 91 H 107 H 91 H Respiratory 20 23 18 Rate Blood Pressure 147/79 156/90 131/70 O2 Sat by Pulse 100 100 100 Oximetry 07/21/19 07/21/19 07/21/19 08:00 08:30 08:34 Temperature Pulse Rate 87 94 H 94 H Respiratory 17 21 Rate Blood Pressure 127/69 134/73 134/73 O2 Sat by Pulse 99 100 100 Oximetry 0207/21/19 07/21/19 08:46 09:00 09:30 Temperature Pulse Rate 95 H 94 H 99 H Respiratory 25 H 26 H Rate Blood Pressure 133/69 139/76 O2 Sat by Pulse 100 100 100 Oximetry 07/21/19 07/21/19 07/21/19 10:00 10:30 11:00 Temperature Pulse Rate 96 H 99 H 99 H Respiratory 26 H 19 17 Rate Blood Pressure 143/79 150/79 145/81 O2 Sat by Pulse 98 99 99 Oximetry 07/21/19 07/21/19 07/21/19 11:30 12:00 12:30 Temperature 99.0 F Pulse Rate 93 H 93 H 95 H Respiratory 19 16 19 Rate Blood Pressure 135/73 142/69 133/65 O2 Sat by Pulse 98 100 100 Oximetry 07/21/19 07/21/19 07/21/19 12:38 13:00 13:30 Temperature Pulse Rate 100 H 99 H 90 Respiratory 18 21 Rate Blood Pressure 133/65 132/75 126/74 O2 Sat by Pulse 100 99 Oximetry 07/21/19 07/21/19 07/21/19 13:31 14:00 14:30 Temperature 98.9 F Pulse Rate 104 H 102 H Respiratory 20 11 L Rate Blood Pressure 149/97 140/78 O2 Sat by Pulse 99 97 Oximetry 07/21/19 07/21/19 15:00 15:30 Temperature Pulse Rate 107 H 103 H Respiratory 14 20 Rate Blood Pressure 155/91 135/74 O2 Sat by Pulse 98 97 Oximetry - General Appearance General appearance: intubated EENT: ATNC Neck: no JVD Respiratory: Present: Decreased Breath Sounds (intubated on ventilator) Cardiology: regular, S1S2, other (ACCESS: Right femoral vas catheter intact) Gastrointestinal: normoactive bowel sounds (nasogastric tube intact) Integumentary: warm and dry Neurologic: other (intubated on ventilator, unresponsive) Musculoskeletal: other (1+ edema to BLE) Psychiatric: other (unable to assess) - Lab 07/21/19 06:15 07/21/19 06:15 Most recent lab results ABG pH 7.427 pH Units (7.350-7.450) 07/21/19 05:30 ABG pCO2 43.3 mm Hg 07/21/19 05:30 ABG pO2 104.5 mm Hg (80.0-90.0) H 07/21/19 05:30 ABG HCO3 27.9 mmol/L (20.0-26.0) H 07/21/19 05:30 ABG O2 Saturation 97.8 % (95.0-99.0) 07/21/19 05:30 Calcium 8.6 mg/dL (8.4-10.2) 07/21/19 06:15 Phosphorus 2.90 mg/dL (2.5-4.5) 07/20/19 06:15 Magnesium 1.70 mg/dL (1.7-2.3) 07/21/19 06:15 Urine Creatinine 106.2 mg/dL (0.1-20.0) H 07/14/19 17:28 Urine Sodium 67 mmol/L 07/14/19 17:28 Urine Total Protein 173 mg/dL (5-11.8) H 07/14/19 16:40 Medications & Allergies - Medications Allergies/Adverse Reactions: Allergies No Known Allergies Allergy (Verified 07/01/19 11:20) Home Medications: Home Medications Medication Instructions Recorded Confirmed Last Taken Type Magnesium Oxide 400 mg PO BIDAC #60 tablet 12/07/16 07/13/19 1 Day Ago Rx ~09/16/17 Thiamine [Vitamin B-1] 100 mg PO QDAY #30 tablet 12/07/16 07/13/19 2 Days Ago Rx ~09/14/17 100 mg Lisinopril [Zestril] 20 mg PO DAILY #30 tablet 09/18/17 07/13/19 Unknown Rx Pantoprazole [Protonix TAB] 40 mg PO BID #60 tablet 09/18/17 07/13/19 Unknown Rx Aspirin [Aspirin BABY CHEW TAB] 81 mg PO QDAY #30 tab.chew 07/05/19 07/13/19 Unknown Rx Furosemide [Lasix TAB] 40 mg PO BID #60 tablet 07/05/19 07/13/19 Unknown Rx Nitroglycerin [Nitrostat] 0.4 mg SL .Q5MIN PRN #10 tablet 07/05/19 07/13/19 Unknown Rx Spironolactone [Aldactone] 12.5 mg PO QDAY #30 tablet 07/05/19 07/13/19 Unknown Rx carvediloL [Coreg] 6.25 mg PO BID #60 tablet 07/05/19 07/13/19 Unknown Rx lisinopriL [Zestril TAB] 20 mg PO QDAY #30 tablet 07/05/19 07/13/19 Unknown Rx Active Medications: Generic Name Dose Route Start Last Admin Trade Name Freq PRN Reason Stop Dose Admin Acetaminophen 650 mg 07/20/19 16:56 07/20/19 17:54 Tylenol FEEDTUBE 650 mg Q6H PRN Administration Fever >101 Albuterol 2.5 mg 07/14/19 04:54 07/16/19 13:42 Proventil IH 2.5 mg Q4HRT PRN Administration Shortness Of Breath Lipase/Protease/Amylase 1 each 07/18/19 13:20 Pancreaze 10,500 Unit FEEDTUBE PRN PRN For Clogged Feeding Tube Epoetin Barney 10,000 unit 07/14/19 10:13 07/18/19 22:04 Procrit IV 10,000 unit CHEMA PRN Administration DIALYSIS Haloperidol Lactate 5 mg 07/12/19 21:35 07/12/19 21:09 Haldol IV 5 mg Q1H PRN Administration Unrespon. to mult. doses BZD's Sodium Chloride 100 mls @ 999 mls/hr 07/16/19 12:11 Nacl 0.9% IV CHEMA PRN Hypotension Norepinephrine 8 mg/ Sodium 250 mls @ 3.75 mls/hr 07/17/19 14:00 07/18/19 20:39 Chloride IV 0 mcg/min TITR TERRELL 0 mls/hr Titration Protocol 2 MCG/MIN Vasopressin 20 unit/ Sodium 101 mls @ 9.09 mls/hr 07/17/19 15:00 Chloride IV TITR TERRELL Protocol 0.03 UNITS/MIN Thiamine HCl 100 mg/ Sodium 51 mls @ 100 mls/hr 07/18/19 10:00 07/21/19 09:39 Chloride IV 07/21/19 23:59 100 mls/hr QDAY TERRELL Administration Metronidazole 500 mg in 100 mls @ 100 mls/hr 07/17/19 17:00 07/21/19 14:00 Flagyl 500 Mg/100 Ml IV 100 mls/hr Q8HR TERRELL Administration Protocol Cefepime HCl 1 gm in 100 mls @ 200 mls/hr 07/17/19 17:20 07/20/19 17:54 Cefepime/Ns 1 Gm/100 Ml IV 200 mls/hr Q24H TERRELL Administration Lansoprazole 30 mg 07/18/19 11:00 07/21/19 09:39 Prevacid Solutab FEEDTUBE 30 mg QDAY TERRELL Administration Simple Syrup 15 ml 07/18/19 13:20 Simple Syrup FEEDTUBE PRN PRN Hypoglycemia Simple Syrup 30 ml 07/18/19 13:20 Simple Syrup FEEDTUBE PRN PRN Hypoglycemia Sodium Bicarbonate 325 mg 07/18/19 13:20 Sodium Bicarbonate FEEDTUBE PRN PRN For Clogged Feeding Tube Thiamine HCl 100 mg 07/22/19 10:00 Vitamin B-1 PO QDAY TERRELL
[2019-07-21] MEDS: CEFEPIME/NS 1 GM/100 ML 1 GM/100 ML BAG IV SCH (18:56)
[2019-07-22] MEDS: ACETAMINOPHEN 325 MG/10.15 ML ORAL LIQD UNIT DOSE FEEDTUBE PRN (01:58)
[2019-07-22 04:16] LABS: ABG HCO3 27.3 mmol/L (20.0-26.0); ABG Methemoglobin 0.6 % (0.0-1.5); ABG Oxygen Saturation 97.7 % (95.0-99.0); ABG PH 7.442 pH Units (7.350-7.450); ABG PO2 99.4 mm Hg (80.0-90.0)
[2019-07-22 06:27] LABS: Hematocrit 24.2 % (35.5-45.6); Hemoglobin 7.8 gm/dl (11.8-15.2); Mean Corpuscular HGB Conc 32 % (32-34); Mean Corpuscular Volume 95 fl (84-94); Platelet Count 233 K/mm3 (140-440); Red Blood Count 2.54 M/mm3 (3.65-5.03); Red Cell Distribution Width 19.7 % (13.2-15.2)
[2019-07-22] MEDS: metroNIDAZOLE/NS 500 MG/100 ML 500 MG/100 ML BAG IV SCH ×3 (06:53→22:02)
--- NOTE | 2019-07-22 07:24 | Hem/Onc Progress Note ---
Assessment and Plan 1. Anemia. The patient's MCV is 95. LDH was 294. Serum iron is low. Bilirubin is not elevated. Folate is low. Anemia may be secondary to bleed. As per the information available, the patient was placed on Eliquis and had some bleeding issues. Trend of hemoglobin show that on admission hemoglobin was 9.7. Renal impairment may have a role in the anemia. At admission, creatinine was 8.8. At this time, the patient is on Procrit. The patient may need iron supplement, folate supplement. 2. Heart failure. 3. Respiratory failure. 4. Renal impairment. 5. Pneumonia. 6. Suspected anoxic brain injury. 7. Deafness, language barrier. 8. Obesity. 9. History of thrombocytopenia. 10. History of atrial flutter with rapid ventricular response. 11. I will follow the patient during inpatient stay and then in the clinic setting. At this time, there is no evidence of hemolysis. iron folate supplement ckd may have a role in anemia - Patient Problems (1) Anemia Current Visit: Yes Status: Acute Qualifiers: Anemia type: iron deficiency Subjective Date of service: 07/22/19 Principal diagnosis: anemia Interval history: no response - not on sedation - no pressors Objective - Exam Narrative Exam: Pain - n/a General appearance -vent Performance status complete dependent for care Eyes - no icterus ENT - intubated LNs cervical not palpable Neck - no LN Respiratory Normal - on o2 Breath sounds - CTA anteriorly CVS S1 S2 + Extremities no edema General GI Soft Rectal deferred male - deferred Skin warm Musculoskeletal - vent Neurologically intubated - Constitutional Vitals: Last Vital Signs Temp 98.1 F 07/22/19 03:56 Pulse 89 07/22/19 06:00 Resp 15 07/22/19 06:00 BP 131/80 07/22/19 06:00 Pulse Ox 98 07/22/19 06:00 - Labs Lab Results: Laboratory Results - last 24 hr 07/14/19 07/18/19 07/21/19 10:45 10:30 08:00 WBC RBC Hgb Hct MCV MCH MCHC RDW Plt Count ABG pH 7.457 H ABG pCO2 38.1 ABG pO2 80.0 ABG HCO3 26.3 H ABG O2 Saturation 97.0 ABG O2 Content 10.5 ABG Base Excess 2.3 ABG Hemoglobin 7.8 L ABG Carboxyhemoglobin 2.1 ABG Methemoglobin 0.5 Oxyhemoglobin 94.6 L FiO2 35 Potassium Vitamin B12 960.4 H Folate Fluid Glucose 93 H Fluid Total Protein 4.7 L Fluid LDH 07/21/19 07/21/19 07/22/19 08:00 17:51 03:40 WBC RBC Hgb Hct MCV MCH MCHC RDW Plt Count ABG pH 7.442 ABG pCO2 41.0 ABG pO2 99.4 H ABG HCO3 27.3 H ABG O2 Saturation 97.7 ABG O2 Content 12.5 ABG Base Excess 3.0 ABG Hemoglobin 9.2 L ABG Carboxyhemoglobin 2.1 ABG Methemoglobin 0.6 Oxyhemoglobin 95.1 FiO2 35 Potassium 3.2 L Vitamin B12 Folate 6.18 L Fluid Glucose Fluid Total Protein Fluid LDH 07/22/19 06:00 WBC 12.6 H RBC 2.54 L Hgb 7.8 L Hct 24.2 L MCV 95 H MCH 31 MCHC 32 RDW 19.7 H Plt Count 233 ABG pH ABG pCO2 ABG pO2 ABG HCO3 ABG O2 Saturation ABG O2 Content ABG Base Excess ABG Hemoglobin ABG Carboxyhemoglobin ABG Methemoglobin Oxyhemoglobin FiO2 Potassium Vitamin B12 Folate Fluid Glucose Fluid Total Protein Fluid LDH Medications & Allergies - Medications Allergies/Adverse Reactions: Allergies No Known Allergies Allergy (Verified 07/01/19 11:20) Home Medications: Home Medications Medication Instructions Recorded Confirmed Last Taken Type Magnesium Oxide 400 mg PO BIDAC #60 tablet 12/07/16 07/13/19 1 Day Ago Rx ~09/16/17 Thiamine [Vitamin B-1] 100 mg PO QDAY #30 tablet 12/07/16 07/13/19 2 Days Ago Rx ~09/14/17 100 mg Lisinopril [Zestril] 20 mg PO DAILY #30 tablet 09/18/17 07/13/19 Unknown Rx Pantoprazole [Protonix TAB] 40 mg PO BID #60 tablet 09/18/17 07/13/19 Unknown Rx Aspirin [Aspirin BABY CHEW TAB] 81 mg PO QDAY #30 tab.chew 07/05/19 07/13/19 Unknown Rx Furosemide [Lasix TAB] 40 mg PO BID #60 tablet 07/05/19 07/13/19 Unknown Rx Nitroglycerin [Nitrostat] 0.4 mg SL .Q5MIN PRN #10 tablet 07/05/19 07/13/19 Unknown Rx Spironolactone [Aldactone] 12.5 mg PO QDAY #30 tablet 07/05/19 07/13/19 Unknown Rx carvediloL [Coreg] 6.25 mg PO BID #60 tablet 07/05/19 07/13/19 Unknown Rx lisinopriL [Zestril TAB] 20 mg PO QDAY #30 tablet 07/05/19 07/13/19 Unknown Rx Active Medications: Generic Name Dose Route Start Last Admin Trade Name Freq PRN Reason Stop Dose Admin Acetaminophen 650 mg 07/20/19 16:56 07/22/19 01:58 Tylenol FEEDTUBE 650 mg Q6H PRN Administration Fever >101 Albuterol 2.5 mg 07/14/19 04:54 07/16/19 13:42 Proventil IH 2.5 mg Q4HRT PRN Administration Shortness Of Breath Lipase/Protease/Amylase 1 each 07/18/19 13:20 Pancreaze 10,500 Unit FEEDTUBE PRN PRN For Clogged Feeding Tube Epoetin Barney 10,000 unit 07/14/19 10:13 07/18/19 22:04 Procrit IV 10,000 unit CHEMA PRN Administration DIALYSIS Haloperidol Lactate 5 mg 07/12/19 21:35 07/12/19 21:09 Haldol IV 5 mg Q1H PRN Administration Unrespon. to mult. doses BZD's Sodium Chloride 100 mls @ 999 mls/hr 07/16/19 12:11 Nacl 0.9% IV CHEMA PRN Hypotension Norepinephrine 8 mg/ Sodium 250 mls @ 3.75 mls/hr 07/17/19 14:00 07/18/19 20:39 Chloride IV 0 mcg/min TITR TERRELL 0 mls/hr Titration Protocol 2 MCG/MIN Vasopressin 20 unit/ Sodium 101 mls @ 9.09 mls/hr 07/17/19 15:00 Chloride IV TITR TERRELL Protocol 0.03 UNITS/MIN Metronidazole 500 mg in 100 mls @ 100 mls/hr 07/17/19 17:00 07/22/19 06:53 Flagyl 500 Mg/100 Ml IV 100 mls/hr Q8HR TERRELL Administration Protocol Cefepime HCl 1 gm in 100 mls @ 200 mls/hr 07/17/19 17:20 07/21/19 18:56 Cefepime/Ns 1 Gm/100 Ml IV 200 mls/hr Q24H TERRELL Administration Lansoprazole 30 mg 07/18/19 11:00 07/21/19 09:39 Prevacid Solutab FEEDTUBE 30 mg QDAY TERRELL Administration Simple Syrup 15 ml 07/18/19 13:20 Simple Syrup FEEDTUBE PRN PRN Hypoglycemia Simple Syrup 30 ml 07/18/19 13:20 Simple Syrup FEEDTUBE PRN PRN Hypoglycemia Sodium Bicarbonate 325 mg 07/18/19 13:20 Sodium Bicarbonate FEEDTUBE PRN PRN For Clogged Feeding Tube Thiamine HCl 100 mg 07/22/19 10:00 Vitamin B-1 PO QDAY TERRELL
[2019-07-22] MEDS: THIAMINE 100 MG TAB PO SCH (10:09)
[2019-07-22] MEDS: LANSOPRAZOLE 30 MG SOLUTAB FEEDTUBE SCH (10:09)
--- NOTE | 2019-07-22 11:21 | Progress Note ---
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 Subjective Date of service: 07/22/19 Principal diagnosis: BRODIE Interval history: Patient remains intubated, unresponsive on the vent. Objective Vital Signs Temp Pulse Resp BP Pulse Ox 07/22/19 11:00 93 H 18 156/89 100 07/22/19 10:00 94 H 21 146/80 99 07/22/19 09:00 91 H 19 145/77 99 07/22/19 08:27 95 H 19 148/75 98 07/22/19 08:24 92 H 148/75 99 07/22/19 08:00 98.4 F 90 17 148/75 100 07/22/19 07:00 97 H 12 147/80 99 07/22/19 06:00 89 15 131/80 98 07/22/19 05:00 94 H 10 L 146/80 98 07/22/19 04:00 105 H 14 146/84 100 07/22/19 03:56 98.1 F 07/22/19 03:00 103 H 21 121/59 99 07/22/19 02:00 109 H 25 H 142/78 98 07/22/19 01:00 109 H 16 135/71 98 07/22/19 00:00 100.9 F H 109 H 19 137/74 100 07/21/19 23:29 103 H 145/81 98 07/21/19 23:00 108 H 21 145/81 99 07/21/19 22:20 98 H 15 110/79 98 07/21/19 22:00 113 H 17 138/71 96 07/21/19 21:00 103 H 22 138/71 98 07/21/19 20:00 98.4 F 97 H 22 135/71 98 07/21/19 19:29 108 H 129/71 99 07/21/19 19:00 108 H 26 H 124/81 96 07/21/19 18:30 92 H 22 118/59 98 07/21/19 18:00 92 H 21 123/62 98 07/21/19 17:43 98 H 143/73 98 07/21/19 17:30 99 H 19 143/73 97 07/21/19 17:00 97 H 17 132/69 98 07/21/19 16:30 105 H 19 132/69 97 07/21/19 16:00 98.5 F 99 H 21 127/72 97 07/21/19 15:30 103 H 20 135/74 97 07/21/19 15:00 107 H 14 155/91 98 07/21/19 14:30 102 H 11 L 140/78 97 07/21/19 14:00 104 H 20 149/97 99 07/21/19 13:31 98.9 F 07/21/19 13:30 90 21 126/74 07/21/19 13:00 99 H 18 132/75 99 07/21/19 12:38 100 H 133/65 100 07/21/19 12:30 95 H 19 133/65 100 07/21/19 12:00 99.0 F 93 H 16 142/69 100 07/21/19 11:30 93 H 19 135/73 98 - Physical Examination General: Other (unresponsive on the vent) Cardiac: Positive: Reg Rate and Rhythm Skin: Positive: Clear - Labs and Meds CBC 07/22/19 Range/Units 06:00 WBC 12.6 H (4.5-11.0) K/mm3 RBC 2.54 L (3.65-5.03) M/mm3 Hgb 7.8 L (11.8-15.2) gm/dl Hct 24.2 L (35.5-45.6) % Plt Count 233 (140-440) K/mm3 Comprehensive Metabolic Panel 07/21/19 Range/Units 17:51 Potassium 3.2 L (3.6-5.0) mmol/L
--- NOTE | 2019-07-22 11:40 | Progress Note ---
Assessment and Plan Acute Kidney Injury possibly prerenal/ATN, cardiorenal syndrome, diuretics, ACEI, AIN from NSAIDs, ? underlying CKD process, no obstruction Hyperkalemia High Anion Gap Metabolic Acidosis Acute respiratory failure LLL PNA Anemia Hypomagnesemia S/p Cardiac Arrest Acute on chronic systolic CHF Questionable Anoxic Brain Injury Plan: - BMP is pending, UOP is slowly imporving - No acute indication for HD today - Assess need for HD on daily basis - S/p Right femoral Vas catheter placement for STAT HD on 07/12/19 - Monitor for signs of renal recovery - Epogen dosing for anemia management - Secondary GN and vasculitis work up ordered, so far negative for ANCA, SHANNA, normal complement, negative HCV, HBV, HIV, pending anti-GBM, but has rare schisto with elevated LDH, consulted hematology - Vascular surgery consulted to exchange Vas Cath to perm catheter placement - Renal US mentioned moderate ascites, but no hydronephrosis - Neuro consulted for concern of anoxic brain injury, f/u recs - S/p US guided paracentesis with removal of 3200 ml on 07/15/19 - Renally dose medications Subjective Date of service: 07/22/19 Principal diagnosis: BRODIE Interval history: intubated, family at bedside, all questions answered Objective - Vital Signs Vital signs: Vital Signs - 12hr 07/22/19 07/22/19 07/22/19 00:00 01:00 02:00 Temperature 100.9 F H Pulse Rate 109 H 109 H 109 H Respiratory 19 16 25 H Rate Blood Pressure 137/74 135/71 142/78 O2 Sat by Pulse 100 98 98 Oximetry 07/22/19 07/22/19 07/22/19 03:00 03:56 04:00 Temperature 98.1 F Pulse Rate 103 H 105 H Respiratory 21 14 Rate Blood Pressure 121/59 146/84 O2 Sat by Pulse 99 100 Oximetry 07/22/19 07/22/19 07/22/19 05:00 06:00 07:00 Temperature Pulse Rate 94 H 89 97 H Respiratory 10 L 15 12 Rate Blood Pressure 146/80 131/80 147/80 O2 Sat by Pulse 98 98 99 Oximetry 07/22/19 07/22/19 07/22/19 08:00 08:24 08:27 Temperature 98.4 F Pulse Rate 90 92 H 95 H Respiratory 17 19 Rate Blood Pressure 148/75 148/75 148/75 O2 Sat by Pulse 100 99 98 Oximetry 07/22/19 07/22/19 07/22/19 09:00 10:00 11:00 Temperature Pulse Rate 91 H 94 H 93 H Respiratory 19 21 18 Rate Blood Pressure 145/77 146/80 156/89 O2 Sat by Pulse 99 99 100 Oximetry - General Appearance General appearance: intubated EENT: ATNC, PERRL, mucous membranes dry Neck: no JVD, no carotid bruit Respiratory: Present: Clear to Ascultation Cardiology: regular, S1S2 Gastrointestinal: normoactive bowel sounds, no tenderness, no distended Integumentary: no rash, warm and dry Neurologic: other (intubated) Musculoskeletal: other (trace pitting edema in BLE) Psychiatric: other (intubated) - Lab 07/22/19 06:00 07/21/19 17:51 Most recent lab results ABG pH 7.442 pH Units (7.350-7.450) 07/22/19 03:40 ABG pCO2 41.0 mm Hg 07/22/19 03:40 ABG pO2 99.4 mm Hg (80.0-90.0) H 07/22/19 03:40 ABG HCO3 27.3 mmol/L (20.0-26.0) H 07/22/19 03:40 ABG O2 Saturation 97.7 % (95.0-99.0) 07/22/19 03:40 Calcium 8.6 mg/dL (8.4-10.2) 07/21/19 06:15 Phosphorus 2.90 mg/dL (2.5-4.5) 07/20/19 06:15 Magnesium 1.70 mg/dL (1.7-2.3) 07/21/19 06:15 Urine Creatinine 106.2 mg/dL (0.1-20.0) H 07/14/19 17:28 Urine Sodium 67 mmol/L 07/14/19 17:28 Urine Total Protein 173 mg/dL (5-11.8) H 07/14/19 16:40 Medications & Allergies - Medications Allergies/Adverse Reactions: Allergies No Known Allergies Allergy (Verified 07/01/19 11:20) Home Medications: Home Medications Medication Instructions Recorded Confirmed Last Taken Type Magnesium Oxide 400 mg PO BIDAC #60 tablet 12/07/16 07/13/19 1 Day Ago Rx ~09/16/17 Thiamine [Vitamin B-1] 100 mg PO QDAY #30 tablet 12/07/16 07/13/19 2 Days Ago Rx ~09/14/17 100 mg Lisinopril [Zestril] 20 mg PO DAILY #30 tablet 09/18/17 07/13/19 Unknown Rx Pantoprazole [Protonix TAB] 40 mg PO BID #60 tablet 09/18/17 07/13/19 Unknown Rx Aspirin [Aspirin BABY CHEW TAB] 81 mg PO QDAY #30 tab.chew 07/05/19 07/13/19 Unknown Rx Furosemide [Lasix TAB] 40 mg PO BID #60 tablet 07/05/19 07/13/19 Unknown Rx Nitroglycerin [Nitrostat] 0.4 mg SL .Q5MIN PRN #10 tablet 07/05/19 07/13/19 Unknown Rx Spironolactone [Aldactone] 12.5 mg PO QDAY #30 tablet 07/05/19 07/13/19 Unknown Rx carvediloL [Coreg] 6.25 mg PO BID #60 tablet 07/05/19 07/13/19 Unknown Rx lisinopriL [Zestril TAB] 20 mg PO QDAY #30 tablet 07/05/19 07/13/19 Unknown Rx Active Medications: Generic Name Dose Route Start Last Admin Trade Name Freq PRN Reason Stop Dose Admin Acetaminophen 650 mg 07/20/19 16:56 07/22/19 01:58 Tylenol FEEDTUBE 650 mg Q6H PRN Administration Fever >101 Albuterol 2.5 mg 07/14/19 04:54 07/16/19 13:42 Proventil IH 2.5 mg Q4HRT PRN Administration Shortness Of Breath Lipase/Protease/Amylase 1 each 07/18/19 13:20 Pancreaze 10,500 Unit FEEDTUBE PRN PRN For Clogged Feeding Tube Epoetin Barney 10,000 unit 07/14/19 10:13 07/18/19 22:04 Procrit IV 10,000 unit CHEMA PRN Administration DIALYSIS Haloperidol Lactate 5 mg 07/12/19 21:35 07/12/19 21:09 Haldol IV 5 mg Q1H PRN Administration Unrespon. to mult. doses BZD's Sodium Chloride 100 mls @ 999 mls/hr 07/16/19 12:11 Nacl 0.9% IV CHEMA PRN Hypotension Norepinephrine 8 mg/ Sodium 250 mls @ 3.75 mls/hr 07/17/19 14:00 07/18/19 20:39 Chloride IV 0 mcg/min TITR TERRELL 0 mls/hr Titration Protocol 2 MCG/MIN Vasopressin 20 unit/ Sodium 101 mls @ 9.09 mls/hr 07/17/19 15:00 Chloride IV TITR TERRELL Protocol 0.03 UNITS/MIN Metronidazole 500 mg in 100 mls @ 100 mls/hr 07/17/19 17:00 07/22/19 06:53 Flagyl 500 Mg/100 Ml IV 100 mls/hr Q8HR TERRELL Administration Protocol Cefepime HCl 1 gm in 100 mls @ 200 mls/hr 07/17/19 17:20 07/21/19 18:56 Cefepime/Ns 1 Gm/100 Ml IV 200 mls/hr Q24H TERRELL Administration Lansoprazole 30 mg 07/18/19 11:00 07/22/19 10:09 Prevacid Solutab FEEDTUBE 30 mg QDAY TERRELL Administration Simple Syrup 15 ml 07/18/19 13:20 Simple Syrup FEEDTUBE PRN PRN Hypoglycemia Simple Syrup 30 ml 07/18/19 13:20 Simple Syrup FEEDTUBE PRN PRN Hypoglycemia Sodium Bicarbonate 325 mg 07/18/19 13:20 Sodium Bicarbonate FEEDTUBE PRN PRN For Clogged Feeding Tube Thiamine HCl 100 mg 07/22/19 10:00 07/22/19 10:09 Vitamin B-1 PO 100 mg QDAY TERRELL Administration
--- NOTE | 2019-07-22 11:57 | Progress Note ---
Assessment and Plan 48 y/o male with inhouse cardiac arrest x2 1. Ok with fecal management system. 2. No sedation 3. Will continue PSV trials as tolerated, currently on and tolerated. 4. Needs EEG to rule out seizure activity. Ordered this yesterday will follow up 5. Overall prognosis is guarded to poor. CCT 31 minutes. Subjective Date of service: 07/22/19 Principal diagnosis: BRODIE Interval history: No acute events. Mental status is the same. Unable to determine if patient had EEG or not. Objective Vital Signs - 12hr 07/22/19 07/22/19 07/22/19 00:00 01:00 02:00 Temperature 100.9 F H Pulse Rate 109 H 109 H 109 H Respiratory 19 16 25 H Rate Blood Pressure 137/74 135/71 142/78 O2 Sat by Pulse 100 98 98 Oximetry 07/22/19 07/22/19 07/22/19 03:00 03:56 04:00 Temperature 98.1 F Pulse Rate 103 H 105 H Respiratory 21 14 Rate Blood Pressure 121/59 146/84 O2 Sat by Pulse 99 100 Oximetry 07/22/19 07/22/19 07/22/19 05:00 06:00 07:00 Temperature Pulse Rate 94 H 89 97 H Respiratory 10 L 15 12 Rate Blood Pressure 146/80 131/80 147/80 O2 Sat by Pulse 98 98 99 Oximetry 07/22/19 07/22/19 07/22/19 08:00 08:24 08:27 Temperature 98.4 F Pulse Rate 90 92 H 95 H Respiratory 17 19 Rate Blood Pressure 148/75 148/75 148/75 O2 Sat by Pulse 100 99 98 Oximetry 07/22/19 07/22/19 07/22/19 09:00 10:00 11:00 Temperature Pulse Rate 91 H 94 H 93 H Respiratory 19 21 18 Rate Blood Pressure 145/77 146/80 156/89 O2 Sat by Pulse 99 99 100 Oximetry Constitutional: no acute distress, comatose Eyes: non-icteric ENT: other (orally intubated not on sedation) Neck: supple Effort: normal Ascultation: Bilateral: clear Gastrointestinal: normoactive bowel sounds, soft, non-tender CBC and BMP: 07/22/19 06:00 07/21/19 17:51 ABG, PT/INR, D-dimer: ABG ABG pH 7.442 pH Units (7.350-7.450) 07/22/19 03:40 ABG pCO2 41.0 mm Hg 07/22/19 03:40 ABG pO2 99.4 mm Hg (80.0-90.0) H 07/22/19 03:40 ABG O2 Saturation 97.7 % (95.0-99.0) 07/22/19 03:40 PT/INR, D-dimer PT 19.8 Sec. (12.2-14.9) H 07/12/19 15:08 INR 1.65 (0.87-1.13) H 07/12/19 15:08 Abnormal lab findings: Abnormal Labs 07/12/19 07/12/19 07/12/19 14:46 15:08 15:08 WBC 14.7 H RBC 2.97 L Hgb 9.7 L Hct 29.0 L MCV 98 H MCH 33 H RDW 19.8 H Plt Count 124 L Seg Neuts % (Manual) 91.0 H Lymphocytes % (Manual) 2.0 L Nucleated RBC % 1.0 H Seg Neutrophils # Man 13.4 H Lymphocytes # (Manual) 0.3 L PT 19.8 H INR 1.65 H APTT 47.8 H ABG pH ABG pO2 ABG HCO3 ABG O2 Saturation ABG Base Excess ABG Hemoglobin Oxyhemoglobin Sodium Potassium Chloride Carbon Dioxide BUN Creatinine Glucose POC Glucose 110 H Calcium Phosphorus Magnesium Iron TIBC Ferritin Total Bilirubin Direct Bilirubin AST Alkaline Phosphatase Lactate Dehydrogenase Troponin T NT-Pro-B Natriuret Pep Total Protein Albumin LDL Cholesterol Direct Vitamin B12 Folate Urine WBC (Auto) Urine Creatinine Urine Total Protein Fluid Glucose Fluid Total Protein 07/12/19 07/12/19 07/12/19 15:08 15:08 15:08 WBC RBC Hgb Hct MCV MCH RDW Plt Count Seg Neuts % (Manual) Lymphocytes % (Manual) Nucleated RBC % Seg Neutrophils # Man Lymphocytes # (Manual) PT INR APTT ABG pH ABG pO2 ABG HCO3 ABG O2 Saturation ABG Base Excess ABG Hemoglobin Oxyhemoglobin Sodium 125 L Potassium 5.5 H Chloride 84.9 L Carbon Dioxide 13 L BUN 70 H Creatinine 8.8 H Glucose POC Glucose Calcium 8.0 L Phosphorus Magnesium 1.30 L Iron TIBC Ferritin Total Bilirubin 1.30 H Direct Bilirubin 0.9 H AST 53 H Alkaline Phosphatase 208 H Lactate Dehydrogenase Troponin T 0.192 H* NT-Pro-B Natriuret Pep > 13273 H Total Protein Albumin 3.3 L LDL Cholesterol Direct 40 L Vitamin B12 Folate Urine WBC (Auto) Urine Creatinine Urine Total Protein Fluid Glucose Fluid Total Protein 07/12/19 07/13/19 07/13/19 17:04 01:32 01:32 WBC RBC Hgb Hct MCV MCH RDW Plt Count Seg Neuts % (Manual) Lymphocytes % (Manual) Nucleated RBC % Seg Neutrophils # Man Lymphocytes # (Manual) PT INR APTT ABG pH ABG pO2 ABG HCO3 ABG O2 Saturation ABG Base Excess ABG Hemoglobin Oxyhemoglobin Sodium 133 L D Potassium 5.3 H Chloride 90.8 L Carbon Dioxide 20 L D BUN 48 H Creatinine 6.2 H Glucose 105 H POC Glucose Calcium 8.2 L Phosphorus 4.90 H Magnesium 1.50 L Iron TIBC Ferritin Total Bilirubin Direct Bilirubin AST Alkaline Phosphatase Lactate Dehydrogenase Troponin T 0.188 H* NT-Pro-B Natriuret Pep Total Protein Albumin LDL Cholesterol Direct Vitamin B12 Folate Urine WBC (Auto) Urine Creatinine Urine Total Protein Fluid Glucose Fluid Total Protein 07/13/19 07/13/19 07/13/19 04:28 04:28 16:16 WBC 15.9 H RBC 3.10 L Hgb 10.2 L Hct 30.6 L MCV 99 H MCH 33 H RDW 19.4 H Plt Count 135 L Seg Neuts % (Manual) Lymphocytes % (Manual) 4.0 L Nucleated RBC % Seg Neutrophils # Man 9.9 H Lymphocytes # (Manual) 0.6 L PT INR APTT ABG pH ABG pO2 ABG HCO3 ABG O2 Saturation ABG Base Excess ABG Hemoglobin Oxyhemoglobin Sodium 132 L 134 L Potassium 5.1 H Chloride 90.3 L 92.2 L Carbon Dioxide 17 L 20 L BUN 47 H 55 H Creatinine 6.0 H 6.5 H Glucose 124 H POC Glucose Calcium 8.2 L 7.9 L Phosphorus Magnesium Iron TIBC Ferritin Total Bilirubin Direct Bilirubin AST Alkaline Phosphatase Lactate Dehydrogenase Troponin T NT-Pro-B Natriuret Pep Total Protein Albumin LDL Cholesterol Direct Vitamin B12 Folate Urine WBC (Auto) Urine Creatinine Urine Total Protein Fluid Glucose Fluid Total Protein 07/14/19 07/14/19 07/14/19 07:16 07:16 07:16 WBC RBC 2.65 L Hgb 8.6 L Hct 25.4 L MCV 96 H MCH 33 H RDW 19.7 H Plt Count 114 L Seg Neuts % (Manual) 89.0 H Lymphocytes % (Manual) 4.0 L Nucleated RBC % Seg Neutrophils # Man Lymphocytes # (Manual) 0.3 L PT INR APTT ABG pH ABG pO2 ABG HCO3 ABG O2 Saturation ABG Base Excess ABG Hemoglobin Oxyhemoglobin Sodium 133 L Potassium Chloride 93.0 L Carbon Dioxide 18 L BUN 61 H Creatinine 7.3 H Glucose 113 H POC Glucose Calcium 7.7 L Phosphorus Magnesium Iron TIBC Ferritin Total Bilirubin Direct Bilirubin AST Alkaline Phosphatase Lactate Dehydrogenase 210 H Troponin T NT-Pro-B Natriuret Pep Total Protein Albumin LDL Cholesterol Direct Vitamin B12 Folate Urine WBC (Auto) Urine Creatinine Urine Total Protein Fluid Glucose Fluid Total Protein 07/14/19 07/14/19 07/14/19 10:45 16:40 17:28 WBC RBC Hgb Hct MCV MCH RDW Plt Count Seg Neuts % (Manual) Lymphocytes % (Manual) Nucleated RBC % Seg Neutrophils # Man Lymphocytes # (Manual) PT INR APTT ABG pH ABG pO2 ABG HCO3 ABG O2 Saturation ABG Base Excess ABG Hemoglobin Oxyhemoglobin Sodium Potassium Chloride Carbon Dioxide BUN Creatinine Glucose POC Glucose Calcium Phosphorus Magnesium Iron TIBC Ferritin Total Bilirubin Direct Bilirubin AST Alkaline Phosphatase Lactate Dehydrogenase Troponin T NT-Pro-B Natriuret Pep Total Protein Albumin LDL Cholesterol Direct Vitamin B12 Folate Urine WBC (Auto) Urine Creatinine 104.2 H 106.2 H Urine Total Protein 173 H Fluid Glucose 93 H Fluid Total Protein 4.7 L 07/14/19 07/14/19 07/15/19 17:28 20:43 06:30 WBC RBC 3.06 L Hgb 9.9 L Hct 29.7 L MCV 97 H MCH 33 H RDW 19.5 H Plt Count 101 L Seg Neuts % (Manual) Lymphocytes % (Manual) Nucleated RBC % Seg Neutrophils # Man Lymphocytes # (Manual) PT INR APTT ABG pH ABG pO2 ABG HCO3 ABG O2 Saturation ABG Base Excess ABG Hemoglobin Oxyhemoglobin Sodium Potassium Chloride Carbon Dioxide BUN Creatinine Glucose POC Glucose 120 H Calcium Phosphorus Magnesium Iron TIBC Ferritin Total Bilirubin Direct Bilirubin AST Alkaline Phosphatase Lactate Dehydrogenase Troponin T NT-Pro-B Natriuret Pep Total Protein Albumin LDL Cholesterol Direct Vitamin B12 Folate Urine WBC (Auto) 31.0 H Urine Creatinine Urine Total Protein Fluid Glucose Fluid Total Protein 07/15/19 07/15/19 07/15/19 06:30 06:30 06:30 WBC RBC Hgb Hct MCV MCH RDW Plt Count Seg Neuts % (Manual) Lymphocytes % (Manual) Nucleated RBC % Seg Neutrophils # Man Lymphocytes # (Manual) PT INR APTT ABG pH ABG pO2 ABG HCO3 ABG O2 Saturation ABG Base Excess ABG Hemoglobin Oxyhemoglobin Sodium Potassium Chloride 95.2 L Carbon Dioxide BUN 42 H Creatinine 4.9 H Glucose POC Glucose Calcium Phosphorus Magnesium Iron 15 L TIBC 186 L Ferritin 428.2 H Total Bilirubin Direct Bilirubin AST 50 H Alkaline Phosphatase 191 H Lactate Dehydrogenase Troponin T NT-Pro-B Natriuret Pep Total Protein Albumin 3.1 L LDL Cholesterol Direct Vitamin B12 Folate Urine WBC (Auto) Urine Creatinine Urine Total Protein Fluid Glucose Fluid Total Protein 07/15/19 07/16/19 07/16/19 12:42 06:19 21:34 WBC RBC Hgb Hct MCV MCH RDW Plt Count Seg Neuts % (Manual) Lymphocytes % (Manual) Nucleated RBC % Seg Neutrophils # Man Lymphocytes # (Manual) PT INR APTT ABG pH ABG pO2 ABG HCO3 ABG O2 Saturation ABG Base Excess ABG Hemoglobin Oxyhemoglobin Sodium 134 L 134 L Potassium Chloride 92.9 L 93.4 L Carbon Dioxide 20 L BUN 55 H 40 H Creatinine 5.6 H 4.4 H Glucose POC Glucose 140 H Calcium Phosphorus Magnesium Iron TIBC Ferritin Total Bilirubin Direct Bilirubin AST Alkaline Phosphatase Lactate Dehydrogenase Troponin T NT-Pro-B Natriuret Pep Total Protein Albumin LDL Cholesterol Direct Vitamin B12 Folate Urine WBC (Auto) Urine Creatinine Urine Total Protein Fluid Glucose Fluid Total Protein 07/17/19 07/17/19 07/17/19 05:27 12:10 12:52 WBC RBC Hgb Hct MCV MCH RDW Plt Count Seg Neuts % (Manual) Lymphocytes % (Manual) Nucleated RBC % Seg Neutrophils # Man Lymphocytes # (Manual) PT INR APTT ABG pH ABG pO2 ABG HCO3 ABG O2 Saturation ABG Base Excess ABG Hemoglobin Oxyhemoglobin Sodium 136 L Potassium Chloride 93.6 L Carbon Dioxide BUN 43 H Creatinine 4.8 H Glucose POC Glucose 122 H 122 H Calcium Phosphorus Magnesium Iron TIBC Ferritin Total Bilirubin Direct Bilirubin AST Alkaline Phosphatase Lactate Dehydrogenase Troponin T NT-Pro-B Natriuret Pep Total Protein Albumin LDL Cholesterol Direct Vitamin B12 Folate Urine WBC (Auto) Urine Creatinine Urine Total Protein Fluid Glucose Fluid Total Protein 07/17/19 07/18/19 07/18/19 13:50 04:20 05:40 WBC RBC Hgb Hct MCV MCH RDW Plt Count Seg Neuts % (Manual) Lymphocytes % (Manual) Nucleated RBC % Seg Neutrophils # Man Lymphocytes # (Manual) PT INR APTT ABG pH 7.262 L ABG pO2 195.5 H 238.9 H ABG HCO3 ABG O2 Saturation 99.1 H 99.4 H ABG Base Excess -2.9 L ABG Hemoglobin 8.6 L 10.9 L Oxyhemoglobin Sodium Potassium Chloride 94.5 L Carbon Dioxide BUN 61 H Creatinine 5.6 H Glucose 111 H POC Glucose Calcium Phosphorus 4.70 H Magnesium Iron TIBC Ferritin Total Bilirubin Direct Bilirubin AST Alkaline Phosphatase Lactate Dehydrogenase 294 H Troponin T NT-Pro-B Natriuret Pep Total Protein Albumin LDL Cholesterol Direct Vitamin B12 Folate Urine WBC (Auto) Urine Creatinine Urine Total Protein Fluid Glucose Fluid Total Protein 07/18/19 07/18/19 07/18/19 05:40 05:40 10:30 WBC 22.7 H RBC 2.64 L Hgb 8.2 L Hct 24.9 L MCV 95 H MCH RDW 19.7 H Plt Count 94 L Seg Neuts % (Manual) Lymphocytes % (Manual) Nucleated RBC % Seg Neutrophils # Man Lymphocytes # (Manual) PT INR APTT ABG pH 7.457 H ABG pO2 ABG HCO3 26.3 H ABG O2 Saturation ABG Base Excess ABG Hemoglobin 7.8 L Oxyhemoglobin 94.6 L Sodium Potassium Chloride Carbon Dioxide BUN Creatinine Glucose POC Glucose Calcium Phosphorus Magnesium Iron TIBC Ferritin Total Bilirubin Direct Bilirubin 0.7 H AST 94 H Alkaline Phosphatase 159 H Lactate Dehydrogenase Troponin T NT-Pro-B Natriuret Pep Total Protein 5.6 L D Albumin 2.5 L LDL Cholesterol Direct Vitamin B12 Folate Urine WBC (Auto) Urine Creatinine Urine Total Protein Fluid Glucose Fluid Total Protein 07/18/19 07/19/19 07/19/19 Unknown 05:15 05:15 WBC RBC Hgb Hct MCV MCH RDW Plt Count Seg Neuts % (Manual) Lymphocytes % (Manual) Nucleated RBC % Seg Neutrophils # Man Lymphocytes # (Manual) PT INR APTT ABG pH ABG pO2 ABG HCO3 ABG O2 Saturation ABG Base Excess ABG Hemoglobin 11.6 L Oxyhemoglobin 94.3 L Sodium 133 L Potassium Chloride 94.9 L Carbon Dioxide BUN 43 H Creatinine 4.0 H Glucose 118 H POC Glucose Calcium Phosphorus Magnesium 0.20 L* Iron TIBC Ferritin Total Bilirubin Direct Bilirubin AST Alkaline Phosphatase Lactate Dehydrogenase Troponin T NT-Pro-B Natriuret Pep Total Protein Albumin LDL Cholesterol Direct Vitamin B12 Folate Urine WBC (Auto) Urine Creatinine Urine Total Protein Fluid Glucose Fluid Total Protein 07/19/19 07/19/19 07/20/19 05:15 06:00 06:15 WBC 14.6 H RBC 2.57 L Hgb 8.2 L Hct 24.3 L MCV 95 H MCH RDW 19.5 H Plt Count 101 L Seg Neuts % (Manual) Lymphocytes % (Manual) Nucleated RBC % Seg Neutrophils # Man Lymphocytes # (Manual) PT INR APTT ABG pH ABG pO2 91.2 H ABG HCO3 27.5 H ABG O2 Saturation ABG Base Excess ABG Hemoglobin 8.3 L Oxyhemoglobin Sodium Potassium Chloride Carbon Dioxide BUN 61 H Creatinine 4.6 H Glucose 117 H POC Glucose Calcium Phosphorus Magnesium Iron TIBC Ferritin Total Bilirubin Direct Bilirubin AST Alkaline Phosphatase Lactate Dehydrogenase Troponin T NT-Pro-B Natriuret Pep Total Protein Albumin LDL Cholesterol Direct Vitamin B12 Folate Urine WBC (Auto) Urine Creatinine Urine Total Protein Fluid Glucose Fluid Total Protein 07/21/19 07/21/19 07/21/19 05:30 06:15 06:15 WBC 11.8 H RBC 2.45 L Hgb 7.9 L Hct 23.5 L MCV 96 H MCH RDW 19.4 H Plt Count Seg Neuts % (Manual) Lymphocytes % (Manual) Nucleated RBC % Seg Neutrophils # Man Lymphocytes # (Manual) PT INR APTT ABG pH ABG pO2 104.5 H ABG HCO3 27.9 H ABG O2 Saturation ABG Base Excess 3.3 H ABG Hemoglobin 8.2 L Oxyhemoglobin Sodium Potassium 3.3 L Chloride Carbon Dioxide BUN 74 H Creatinine 4.3 H Glucose 127 H POC Glucose Calcium Phosphorus Magnesium Iron TIBC Ferritin Total Bilirubin Direct Bilirubin AST Alkaline Phosphatase Lactate Dehydrogenase Troponin T NT-Pro-B Natriuret Pep Total Protein Albumin LDL Cholesterol Direct Vitamin B12 Folate Urine WBC (Auto) Urine Creatinine Urine Total Protein Fluid Glucose Fluid Total Protein 07/21/19 07/21/19 07/21/19 08:00 08:00 17:51 WBC RBC Hgb Hct MCV MCH RDW Plt Count Seg Neuts % (Manual) Lymphocytes % (Manual) Nucleated RBC % Seg Neutrophils # Man Lymphocytes # (Manual) PT INR APTT ABG pH ABG pO2 ABG HCO3 ABG O2 Saturation ABG Base Excess ABG Hemoglobin Oxyhemoglobin Sodium Potassium 3.2 L Chloride Carbon Dioxide BUN Creatinine Glucose POC Glucose Calcium Phosphorus Magnesium Iron TIBC Ferritin Total Bilirubin Direct Bilirubin AST Alkaline Phosphatase Lactate Dehydrogenase Troponin T NT-Pro-B Natriuret Pep Total Protein Albumin LDL Cholesterol Direct Vitamin B12 960.4 H Folate 6.18 L Urine WBC (Auto) Urine Creatinine Urine Total Protein Fluid Glucose Fluid Total Protein 07/22/19 07/22/19 03:40 06:00 WBC 12.6 H RBC 2.54 L Hgb 7.8 L Hct 24.2 L MCV 95 H MCH RDW 19.7 H Plt Count Seg Neuts % (Manual) Lymphocytes % (Manual) Nucleated RBC % Seg Neutrophils # Man Lymphocytes # (Manual) PT INR APTT ABG pH ABG pO2 99.4 H ABG HCO3 27.3 H ABG O2 Saturation ABG Base Excess ABG Hemoglobin 9.2 L Oxyhemoglobin Sodium Potassium Chloride Carbon Dioxide BUN Creatinine Glucose POC Glucose Calcium Phosphorus Magnesium Iron TIBC Ferritin Total Bilirubin Direct Bilirubin AST Alkaline Phosphatase Lactate Dehydrogenase Troponin T NT-Pro-B Natriuret Pep Total Protein Albumin LDL Cholesterol Direct Vitamin B12 Folate Urine WBC (Auto) Urine Creatinine Urine Total Protein Fluid Glucose Fluid Total Protein
--- NOTE | 2019-07-22 12:18 | Progress Note ---
Assessment and Plan Assessment and plan: 48-year-old man with a history of being deaf (writes to communicate) HTN, Systolic CHF(EF 20%), anxiety, depression COPD and GERD who presented to [facility] ED with severe SOB. EMS found patient to have a pulse oximetry of 80% on room air, improved to 92% on 2 L of supplemental oxygen. Patient was confused and provided limited history. Patient refused BiPAP. Patient given 40 mg of Lasix IV and and EMS gave 40mg iv lasix prior to arrival. Patient was found to have left lower lobe pneumonia, complicated by acute respiratory failure, severe Uremia, hyponatremia, hyperkalemia, metabolic acidosis. Patient admitted to medical floor for medical stabilization and treatment due to high risk for cardiopul monary and renal decompensation. Nephrology team consulted in ED for urgent dialysis. Patient initiated on pneumonia protocol with IV antibiotic therapy. Patient treated with calcium gluconate and Kayexalate for hyperkalemia in ED. EKG showed no changes. Patient mental status so poor he had to be put in restraints to prevent for pulling and removing O2. Next day, patient remained confused, so He went down for CT head and he must've removed O2 mask while in CT scanner or had a fatal cardiac arrhythmia which he was experiencing NSVT/aflutter with RVR the night before. This led to Cardiac arrest. ED physician was the first to respond and saw Asystole on the monitor, ACLS done and when I arrived he was in PEA. He was a difficult Intubation as he had bleeding in the Endotracheal area due to Eliquis which was started on 07/16/2019. He was intubated by ED physician. Pulse was restored and he was sent to the ICU, where he had another Cardiac arrest with PEA, ACLS done again and pulse meg red. Overnight he was posturing. He is comatose without any sedative. -History of deafness * pCXR showed bilateral pleural effusion with significant pulmonary congestion. EKG showed no ST elevation. * Initial Labs: WBC 14.7, hgb 9.7, plt 124, Na 125, k 5.5, co2 13, BUN 70, Cr 8.8 Acute on chronic systolic heart failure decompensation leading to respiratory failure: Meds optimized. Improving with dialysis. Acute hypoxic respiratory failure on MV > 96 hours, continue mechanical ventilator Severe ARF due to ATN, getting dialysis as needed, been evaluated on a day-to-day basis. 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 Sadler, NSVT 07/16/2019 overnight: bb Anoxic brain injury: EEG negative for seizure, neurology input appreciated, poor prognosis full code DVT ppx: scd only Discussed the goals of care and updated his father and his father's girlfriend. Explained the very poor prognosis. They would like to have family meeting with other family members and will return to us with a plan. Explained the options of hospice and removal of right support versus trach and PEG and senior care. They are leaning towards trach PEG and senior care. Advanced care planning performed for 30 minutes. Critical care time 35 minutes. History Interval history: No fevers No vomiting no seizure-like activity No diarrhea No agitation No obvious discomfort Hospitalist Physical - Physical exam Narrative exam: General.: Appears ill, not responsive HEENT: Moist mucous membranes, extraocular muscles intact, no lymphadenopathy Neck: supple Cardiac: S1-S2 heard Lungs: Rhonchorous and ventilated breath sounds. Abdomen: soft , nontender, nondistended, bowel sounds positive Extremities: no edema clubbing or cyanosis Skin: no rash or lesions Neurologic: Intubated, not responsive, has some spontaneous movements - Constitutional Vitals: Temp Pulse Resp BP Pulse Ox 98.4 F 93 H 18 156/89 100 07/22/19 08:00 07/22/19 11:00 07/22/19 11:00 07/22/19 11:00 07/22/19 11:00 General appearance: Present: no acute distress Results - Labs CBC & Chem 7: 07/22/19 06:00 07/23/19 05:30 Labs: Laboratory Last Values WBC 12.6 K/mm3 (4.5-11.0) H 07/22/19 06:00 RBC 2.54 M/mm3 (3.65-5.03) L 07/22/19 06:00 Hgb 7.8 gm/dl (11.8-15.2) L 07/22/19 06:00 Hct 24.2 % (35.5-45.6) L 07/22/19 06:00 MCV 95 fl (84-94) H 07/22/19 06:00 MCH 31 pg (28-32) 07/22/19 06:00 MCHC 32 % (32-34) 07/22/19 06:00 RDW 19.7 % (13.2-15.2) H 07/22/19 06:00 Plt Count 233 K/mm3 (140-440) 07/22/19 06:00 Lymph % (Auto) Waiter/Waitress Buffet 07/13/19 04:28 Towns % (Auto) Waiter/Waitress Buffet 07/13/19 04:28 Eos % (Auto) Waiter/Waitress Buffet 07/13/19 04:28 Baso % (Auto) Waiter/Waitress Buffet 07/13/19 04:28 Lymph # Waiter/Waitress Buffet 07/13/19 04:28 Towns # Waiter/Waitress Buffet 07/13/19 04:28 Eos # Waiter/Waitress Buffet 07/13/19 04:28 Baso # Waiter/Waitress Buffet 07/13/19 04:28 Add Manual Diff Complete 07/14/19 07:16 Total Counted 100 07/14/19 07:16 Seg Neutrophils % Waiter/Waitress Buffet 07/13/19 04:28 Seg Neuts % (Manual) 89.0 % (40.0-70.0) H 07/14/19 07:16 Band Neutrophils % 0 % 07/14/19 07:16 Lymphocytes % (Manual) 4.0 % (13.4-35.0) L 07/14/19 07:16 Reactive Lymphs % (Man) 0 % 07/14/19 07:16 Monocytes % (Manual) 7.0 % (0.0-7.3) 07/14/19 07:16 Eosinophils % (Manual) 0 % (0.0-4.3) 07/14/19 07:16 Basophils % (Manual) 0 % (0.0-1.8) 07/14/19 07:16 Metamyelocytes % 0 % 07/14/19 07:16 Myelocytes % 0 % 07/14/19 07:16 Promyelocytes % 0 % 07/14/19 07:16 Blast Cells % 0 % 07/14/19 07:16 Nucleated RBC % Not Reportable 07/14/19 07:16 Seg Neutrophils # Waiter/Waitress Buffet 07/13/19 04:28 Seg Neutrophils # Man 7.7 K/mm3 (1.8-7.7) 07/14/19 07:16 Band Neutrophils # 0.0 K/mm3 07/14/19 07:16 Lymphocytes # (Manual) 0.3 K/mm3 (1.2-5.4) L 07/14/19 07:16 Abs React Lymphs (Man) 0.0 K/mm3 07/14/19 07:16 Monocytes # (Manual) 0.6 K/mm3 (0.0-0.8) 07/14/19 07:16 Eosinophils # (Manual) 0.0 K/mm3 (0.0-0.4) 07/14/19 07:16 Basophils # (Manual) 0.0 K/mm3 (0.0-0.1) 07/14/19 07:16 Metamyelocytes # 0.0 K/mm3 07/14/19 07:16 Myelocytes # 0.0 K/mm3 07/14/19 07:16 Promyelocytes # 0.0 K/mm3 07/14/19 07:16 Blast Cells # 0.0 K/mm3 07/14/19 07:16 WBC Morphology Not Reportable 07/14/19 07:16 Hypersegmented Neuts Not Reportable 07/14/19 07:16 Hyposegmented Neuts Not Reportable 07/14/19 07:16 Hypogranular Neuts Not Reportable 07/14/19 07:16 Smudge Cells Not Reportable 07/14/19 07:16 Toxic Granulation Not Reportable 07/14/19 07:16 Toxic Vacuolation Not Reportable 07/14/19 07:16 Dohle Bodies Not Reportable 07/14/19 07:16 Pelger-Huet Anomaly Not Reportable 07/14/19 07:16 Mack Rods Not Reportable 07/14/19 07:16 Platelet Estimate Consistent w auto 07/14/19 07:16 Clumped Platelets Not Reportable 07/14/19 07:16 Plt Clumps, EDTA Not Reportable 07/14/19 07:16 Large Platelets Not Reportable 07/14/19 07:16 Giant Platelets Not Reportable 07/14/19 07:16 Platelet Satelliting Not Reportable 07/14/19 07:16 Plt Morphology Comment Not Reportable 07/14/19 07:16 RBC Morphology Not Reportable 07/14/19 07:16 Dimorphic RBCs Not Reportable 07/14/19 07:16 Polychromasia Not Reportable 07/14/19 07:16 Hypochromasia Not Reportable 07/14/19 07:16 Poikilocytosis Not Reportable 07/14/19 07:16 Anisocytosis 1+ 07/14/19 07:16 Microcytosis Not Reportable 07/14/19 07:16 Macrocytosis Not Reportable 07/14/19 07:16 Spherocytes Not Reportable 07/14/19 07:16 Pappenheimer Bodies Not Reportable 07/14/19 07:16 Sickle Cells Not Reportable 07/14/19 07:16 Target Cells Few 07/14/19 07:16 Tear Drop Cells Not Reportable 07/14/19 07:16 Ovalocytes Not Reportable 07/14/19 07:16 Helmet Cells Not Reportable 07/14/19 07:16 [place] Bodies Not Reportable 07/14/19 07:16 [place] Rings Not Reportable 07/14/19 07:16 [place] Cells Not Reportable 07/14/19 07:16 Bite Cells Not Reportable 07/14/19 07:16 Crenated Cell Not Reportable 07/14/19 07:16 Elliptocytes Not Reportable 07/14/19 07:16 Acanthocytes (Spur) Not Reportable 07/14/19 07:16 Rouleaux Not Reportable 07/14/19 07:16 Hemoglobin C Crystals Not Reportable 07/14/19 07:16 Schistocytes Not Reportable 07/14/19 07:16 Malaria parasites Not Reportable 07/14/19 07:16 Víctor Bodies Not Reportable 07/14/19 07:16 Hem Pathologist Commnt No 07/14/19 07:16 PT 19.8 Sec. (12.2-14.9) H 07/12/19 15:08 INR 1.65 (0.87-1.13) H 07/12/19 15:08 APTT 47.8 Sec. (24.2-36.6) H 07/12/19 15:08 ABG pH 7.442 pH Units (7.350-7.450) 07/22/19 03:40 ABG pCO2 41.0 mm Hg 07/22/19 03:40 ABG pO2 99.4 mm Hg (80.0-90.0) H 07/22/19 03:40 ABG HCO3 27.3 mmol/L (20.0-26.0) H 07/22/19 03:40 ABG O2 Saturation 97.7 % (95.0-99.0) 07/22/19 03:40 ABG O2 Content 12.5 (0.0-44) 07/22/19 03:40 ABG Base Excess 3.0 mmol/L (-2.0-3.0) 07/22/19 03:40 ABG Hemoglobin 9.2 gm/dl (14.0-18.0) L 07/22/19 03:40 ABG Carboxyhemoglobin 2.1 % (0.0-5.0) 07/22/19 03:40 ABG Methemoglobin 0.6 % (0.0-1.5) 07/22/19 03:40 Oxyhemoglobin 95.1 % (95.0-99.0) 07/22/19 03:40 FiO2 35 % 07/22/19 03:40 Sodium 139 mmol/L (137-145) 07/21/19 06:15 Potassium 3.2 mmol/L (3.6-5.0) L 07/21/19 17:51 Chloride 100.4 mmol/L (98-107) 07/21/19 06:15 Carbon Dioxide 23 mmol/L (22-30) 07/21/19 06:15 Anion Gap 19 mmol/L 07/21/19 06:15 BUN 74 mg/dL (9-20) H 07/21/19 06:15 Creatinine 4.3 mg/dL (0.8-1.5) H 07/21/19 06:15 Estimated GFR 18 ml/min 07/21/19 06:15 BUN/Creatinine Ratio 17 % 07/21/19 06:15 Glucose 127 mg/dL (75-100) H 07/21/19 06:15 POC Glucose 122 (70-105) H 07/17/19 12:52 Calcium 8.6 mg/dL (8.4-10.2) 07/21/19 06:15 Phosphorus 2.90 mg/dL (2.5-4.5) 07/20/19 06:15 Magnesium 1.70 mg/dL (1.7-2.3) 07/21/19 06:15 Iron 15 ug/dL (49-181) L 07/15/19 06:30 TIBC 186 mcg/dL (250-450) L 07/15/19 06:30 Ferritin 428.2 ng/mL (13.0-400.0) H 07/15/19 06:30 Total Bilirubin 1.10 mg/dL (0.1-1.2) 07/18/19 05:40 Direct Bilirubin 0.7 mg/dL (0-0.2) H 07/18/19 05:40 Indirect Bilirubin 0.4 mg/dL 07/18/19 05:40 AST 94 units/L (5-40) H 07/18/19 05:40 ALT 16 units/L (7-56) 07/18/19 05:40 Alkaline Phosphatase 159 units/L (35-129) H 07/18/19 05:40 Lactate Dehydrogenase 294 units/L (91-180) H 07/18/19 05:40 Total Creatine Kinase 59 units/L (55-170) 07/14/19 07:16 Troponin T 0.188 ng/mL (0.00-0.029) H* 07/12/19 17:04 NT-Pro-B Natriuret Pep > 34182 pg/mL (0-450) H 07/12/19 15:08 Total Protein 5.6 g/dL (6.3-8.2) L D 07/18/19 05:40 Albumin 2.5 g/dL (3.9-5) L 07/18/19 05:40 Albumin/Globulin Ratio 0.8 % 07/18/19 05:40 Triglycerides 128 mg/dL (2-149) 07/12/19 15:08 Cholesterol 121 mg/dL (50-199) 07/12/19 15:08 LDL Cholesterol Direct 40 mg/dL (50-130) L 07/12/19 15:08 HDL Cholesterol 44 mg/dL (40-59) 07/12/19 15:08 Cholesterol/HDL Ratio 2.75 % 07/12/19 15:08 Vitamin B12 960.4 pg/mL (211-911) H 07/21/19 08:00 Folate 6.18 ng/mL (7.3-26.0) L 07/21/19 08:00 Urine Color Eugenia (Yellow) 07/14/19 17:28 Urine Turbidity Slightly-cloudy (Clear) 07/14/19 17:28 Urine pH 5.0 (5.0-7.0) 07/14/19 17:28 Ur Specific [place] 1.014 (1.003-1.030) 07/14/19 17:28 Urine Protein 100 mg/dl mg/dL (Negative) 07/14/19 17:28 Urine Glucose (UA) Neg mg/dL (Negative) 07/14/19 17:28 Urine Ketones Neg mg/dL (Negative) 07/14/19 17:28 Urine Blood Sm (Negative) 07/14/19 17: Urine Nitrite Neg (Negative) 07/14/19 17:28 Urine Bilirubin Neg (Negative) 07/14/19 17:28 Urine Urobilinogen < 2.0 mg/dL (<2.0) 07/14/19 17:28 Ur Leukocyte Esterase Neg (Negative) 07/14/19 17:28 Urine WBC (Auto) 31.0 /HPF (0.0-6.0) H 07/14/19 17:28 Urine RBC (Auto) 3.0 /HPF (0.0-6.0) 07/14/19 17:28 U Epithel Cells (Auto) < 1.0 /HPF (0-13.0) 07/14/19 17:28 Urine Bacteria (Auto) 1+ /HPF (Negative) 07/14/19 17:28 Urine Mucus Few /HPF 07/14/19 17:28 Urine Yeast (Budding) Few /HPF 07/14/19 17:28 Urine Eosinophils Rare seen (None Seen) 07/14/19 17:28 Urine Creatinine 106.2 mg/dL (0.1-20.0) H 07/14/19 17:28 Protein/Creatinin Ratio 1.66 07/14/19 16:40 Urine Sodium 67 mmol/L 07/14/19 17:28 Urine Urea Nitrogen 100 07/14/19 17:28 Urine Total Protein 173 mg/dL (5-11.8) H 07/14/19 16:40 Fluid Type Paracentesis 07/14/19 10:45 Fluid Color Bloody 07/14/19 10:45 Fluid Appearance Bloody 07/14/19 10:45 Fluid WBC 120 /mm3 07/14/19 10:45 Fluid RBC 44157 /mm3 07/14/19 10:45 Fluid Seg Neutrophils 33.0 % 07/14/19 10:45 Fluid Lymphocytes 17.0 % 07/14/19 10:45 Fluid Reactive Lymphs 0 % 07/14/19 10:45 Fluid Monocytes 50.0 % 07/14/19 10:45 Fluid Eosinophils 0 % 07/14/19 10:45 Fluid Basophils 0 % 07/14/19 10:45 Fluid Glucose 93 mg/dL (40-70) H 07/14/19 10:45 Fluid Total Protein 4.7 (15.0-45.0) L 07/14/19 10:45 Fluid LDH 07/14/19 10:45 Random Vancomycin 14.5 ug/mL (0-40.0) 07/19/19 05:15 SHANNA Screen Negative (Negative) 07/14/19 11:50 Proteinase 3 (PR3) Ab <1.0 AI (<1.0) 07/14/19 11:50 Myeloperoxidase Ab <1.0 AI (<1.0) 07/14/19 11:50 Complement C3 124 mg/dL (82-185) 07/14/19 11:50 Complement C4 28 mg/dL (15-53) 07/14/19 11:50 Hepatitis A IgM Ab Non-reactive (NonReactive) 07/12/19 17:49 Hep Bs Antigen Non-reactive (Negative) 07/14/19 11:50 Hep B Core IgM Ab Non-reactive (NonReactive) 07/12/19 17:49 Hepatitis C Antibody Non-reactive (NonReactive) 07/14/19 11:50 HIV-1 Antibody See scanned result 07/14/19 11:50 HIV-2 Ab (Immunoblot) See scanned result 07/14/19 11:50 Schistocytes Smear Rare 07/18/19 05:40 Active Medications - Current Medications Current Medications: Generic Name Dose Route Start Last Admin Trade Name Freq PRN Reason Stop Dose Admin Acetaminophen 650 mg 07/20/19 16:56 07/22/19 01:58 Tylenol FEEDTUBE 650 mg Q6H PRN Administration Fever >101 Albuterol 2.5 mg 07/14/19 04:54 07/16/19 13:42 Proventil IH 2.5 mg Q4HRT PRN Administration Shortness Of Breath Lipase/Protease/Amylase 1 each 07/18/19 13:20 Pancrenarinder Moeller 10,500 Unit FEEDTUBE PRN PRN For Clogged Feeding Tube Epoetin Barney 10,000 unit 07/14/19 10:13 07/18/19 22:04 Procrit IV 10,000 unit CHEMA PRN Administration DIALYSIS Haloperidol Lactate 5 mg 07/12/19 21:35 07/12/19 21:09 Haldol IV 5 mg Q1H PRN Administration Unrespon. to mult. doses BZD's Sodium Chloride 100 mls @ 999 mls/hr 07/16/19 12:11 Nacl 0.9% IV CHEMA PRN Hypotension Norepinephrine 8 mg/ Sodium 250 mls @ 3.75 mls/hr 07/17/19 14:00 07/18/19 20:39 Chloride IV 0 mcg/min TITR TERRELL 0 mls/hr Titration Protocol 2 MCG/MIN Vasopressin 20 unit/ Sodium 101 mls @ 9.09 mls/hr 07/17/19 15:00 Chloride IV TITR TERRELL Protocol 0.03 UNITS/MIN Metronidazole 500 mg in 100 mls @ 100 mls/hr 07/17/19 17:00 07/22/19 06:53 Flagyl 500 Mg/100 Ml IV 100 mls/hr Q8HR TERRELL Administration Protocol Cefepime HCl 1 gm in 100 mls @ 200 mls/hr 07/17/19 17:20 07/21/19 18:56 Cefepime/Ns 1 Gm/100 Ml IV 200 mls/hr Q24H TERRELL Administration Lansoprazole 30 mg 07/18/19 11:00 07/22/19 10:09 Prevacid Solutab FEEDTUBE 30 mg QDAY TERRELL Administration Simple Syrup 15 ml 07/18/19 13:20 Simple Syrup FEEDTUBE PRN PRN Hypoglycemia Simple Syrup 30 ml 07/18/19 13:20 Simple Syrup FEEDTUBE PRN PRN Hypoglycemia Sodium Bicarbonate 325 mg 07/18/19 13:20 Sodium Bicarbonate FEEDTUBE PRN PRN For Clogged Feeding Tube Thiamine HCl 100 mg 07/22/19 10:00 07/22/19 10:09 Vitamin B-1 PO 100 mg QDAY TERRELL Administration Nutrition/Malnutrition Assess - Dietary Evaluation Nutrition/Malnutrition Findings: Nutrition Notes Start: 07/18/19 12:09 Freq: Status: Active Protocol: Document 07/21/19 09:20 LP (Rec: 07/21/19 09:24 LP [id number]) Nutrition Notes Initial or Follow up Reassessment Current Diagnosis Acute Kidney Injury, Hypertension,Heart Failure, Respiratory Failure Other Pertinent Diagnosis on HD , metabolic acidosis, pnuemonia Current Diet Nepro at 41ml/hr Labs/Tests K 3.3 BUN 74 Cr 4.3 BG 127 Pertinent Medications Reviewed Height 5 ft 10 in Weight 101.6 kg [place] Body Weight (kg) 75.45 BMI 32.1 Subjective/Other Information Pt tolerating Nepro at 41ml/hr . Pt remains on vent. Percent of energy/protein needs met: 100%/53% Burn Absent Trauma Absent GI Symptoms None Difficulty In Swallowing,Chewing Current % PO Negligible Minimum of two criteria Yes Energy Intake (severe) < or equal to 50% Estimated Energy Requirement > or equal to 5 days Muscle Mass Mild Depletion (non-severe) Fluid Accumulation Moderate to Severe (severe) Reduced Powderer Strength Measurably Reduced (severe) #2 Nutrition Diagnosis Malnutrition Diagnosis Progress(for reassessment Continues documentation) #1 Nutrition Diagnosis Inadequate oral intake Diagnosis Progress(for reassessment Continues documentation) Is patient on ventilator? Yes Is Patient Ambulatory and/or Out of Bed No REE-([facility]-confined to bed) 2268.180 Kcal/Kg value to use for calculation 17 Approximate Energy Requirements Using 1727 kcal/Kg Calculation Used for Recommendations Kcal/kg Additional Notes Protein needs: 150 g (> 2 g/ kgIBW) Fluid needs: 1000 - 1500 ml ( on HD/ Anuric) Nutrition Intervention Change Diet Order: TF Nutrition Support: Nepro 1.8 at 41 ml/hr. Water flush of 130 ml q4h. Kcal 1,771 Protein (gm) 80 Fluid (mL) 715 Goal #1 Meet at least 75% of protein and energy needs Anticipated Discharge Needs: unble to determine at this time Follow-Up By: 07/24/19 Additional Comments Follow for stable TF tolerance
--- NOTE | 2019-07-22 14:25 | Electroencephalogram Report ---
Electroencephalogram EEG Date of exam: 07/22/19 History: post cardiac and respiratory arrest Impression: This is routine EEG HV and photic stimulation not done, study done with 16 electrode 1- diffuse slowing in 4-6 HZ 2- finding is suggestive of encephalopathic process and or drug effect , the possibility of post anoxic brain injury can not be excluded. clinical and radiological correlation is in order 3- No clear epileptiform discharges is noted but the possibilty of post ictal stage can not be excluded Description: The waking background shows an appropriate organization with well-defined anterior posterior voltage and frequency gradients. Posteriorly, there is a well-developed alpha rhythm of [4-6 ] Hz which is symmetrical and bilaterally reactive. Anteriorly, there is a pattern of lower voltage and slightly irregular theta and beta range frequencies. During drowsiness, there is attenuation of the background rhythms. No sleep was noted Throughout, the recording there are no epileptiform abnormalities, focal or lateralizing features, or significant interhemispheric findings.
--- NOTE | 2019-07-22 14:57 | Consultation ---
REFERRING PHYSICIAN: Dr. Mauricio. REASON FOR CONSULTATION: Anemia, evaluate for hemolysis. HISTORY OF PRESENT ILLNESS: I saw the patient, a 48-year-old male in the medical floor. The patient was admitted on 07/12/2019. He has history of hypertension, heart failure with ejection fraction of 20%, COPD, hearing issues, came to the hospital because of shortness of breath. He was found to have renal impairment. Dialysis was evaluated. Pneumonia was treated. Hyperkalemia was managed. During this admission, the patient has been seen by Cardiology team, Nephrology team, Pulmonary team. The patient was found to be anemic. I have been consulted for this. During this admission, the patient was found to have atrial flutter and treated with Eliquis. As per the nurse, the patient had some oral bleed. At this time, the patient is intubated. REVIEW OF SYSTEMS: Not reliable. Most of the information comes from the medical notes. As per the nurse, the patient is not on any pressors, not on any sedatives. The patient is not responding to verbal commands. The patient has a language barrier/deafness. There is a clinical suspicion of anoxic brain injury. PAST MEDICAL HISTORY: As above. MEDICATIONS: Include albuterol, cefepime, Procrit, thiamine, Flagyl, Haldol. PHYSICAL EXAMINATION: VITAL SIGNS: Temperature 98.4, pulse 97, respirations 22, BP 135/71. HEENT: Pallor present, no icterus. Intubated. HEART: S1, S2. LUNGS: Clear to auscultation anteriorly. ABDOMEN: Soft. NEUROLOGIC: Not responding. LABORATORY DATA: White cell 11, hemoglobin 7.9, MCV 96, platelet 167. Potassium 3.3, creatinine 4.3, calcium 8.6. B12 of 960, folate 6.1. RADIOLOGY: Head CT was done. Abdomen and pelvis CT was done. Liver, spleen was unremarkable. ASSESSMENT AND PLAN: 1. Anemia. The patient's MCV is 95. LDH was 294. Serum iron is low. Bilirubin is not elevated. Folate is low. Anemia may be secondary to bleed. As per the information available, the patient was placed on Eliquis and had some bleeding issues. Trend of hemoglobin show that on admission hemoglobin was 9.7. Renal impairment may have a role in the anemia. At admission, creatinine was 8.8. At this time, the patient is on Procrit. The patient may need iron supplement, folate supplement. 2. Heart failure. 3. Respiratory failure. 4. Renal impairment. 5. Pneumonia. 6. Suspected anoxic brain injury. 7. Deafness, language barrier. 8. Obesity. 9. History of thrombocytopenia. 10. History of atrial flutter with rapid ventricular response. 11. I will follow the patient during inpatient stay and then in the clinic setting. At this time, there is no evidence of hemolysis. JOB# [id number] NM/NTS
--- NOTE | 2019-07-22 15:37 | Progress Note ---
Assessment and Plan Cultures: 07/12/2019 blood culture: Negative 07/14/2019 urine culture: mixed growth 07/17/2019 tracheal aspirate: E coli A/P: 48/M with deafness, HTN, CHF, anxiety, depression, COPD was admitted to the hospital on 07/12/2019 with shortness of breath, found to have hypoxia and renal failure and was started on urgent dialysis, now with: #Shock, following PEA cardiac arrest #Bilateral multifocal pneumonia, acute respiratory failure: Possibly aspiration v/s lung contusion from CPR following cardiac arrest. Culture growing GNR. Empiric cefepime, vancomycin and Flagyl for now, anticipate stopping vancomycin soon. #Acute renal failure: Dialysis requiring. Nephrology following, evaluating for glomerulonephritis and vasculitis. Patient also has rare schistocytes in peripheral blood along with few eosinophils in urine. Renally dose abx. #CHF #Acute encephalopathy: post arrest. Recs: - Empiric renally dosed cefepime, Flagyl for now - follow up fever and WBC - ordered procal for AM Will follow. Salo Morgan MD [facility] ([facility] M: [phone] O: [phone] F: [phone] Subjective Date of service: 07/22/19 Principal diagnosis: BRODIE Interval history: Febrile to 100.9, no changes. Objective - Exam Narrative Exam: Constitutional: No acute distress, obese Head, Ears, Nose: Normocephalic, atraumatic. External ears, nose normal Eyes: Conjunctivae/corneas clear Cardiovascular: S1, S2 normal. Respiratory: Good air entry, clear to auscultation bilaterally GI: Soft, non-tender; bowel sounds + Musculoskeletal: No pedal edema, no cyanosis. Skin: No rash or abscess Hem/Lymphatic: No palpable cervical or supraclavicular nodes. No lymphangitis Psych: no agitation Neurological: No defects - Constitutional Vitals: Vital Signs Temp Pulse Resp BP Pulse Ox 98.4 F 104 H 12 147/86 98 07/22/19 08:00 07/22/19 15:00 07/22/19 15:00 07/22/19 15:00 07/22/19 15:00 Temperature -Last 24 Hours Temperature 98.4 F Temperature 98.1 F Temperature 100.9 F Temperature 98.4 F Temperature 98.5 F - Labs CBC & Chem 7: 07/22/19 06:00 07/21/19 17:51 Labs: Abnormal lab results 07/21/19 07/22/19 07/22/19 Range/Units 17:51 03:40 06:00 WBC 12.6 H (4.5-11.0) K/mm3 RBC 2.54 L (3.65-5.03) M/mm3 Hgb 7.8 L (11.8-15.2) gm/dl Hct 24.2 L (35.5-45.6) % MCV 95 H (84-94) fl RDW 19.7 H (13.2-15.2) % ABG pO2 99.4 H (80.0-90.0) mm Hg ABG HCO3 27.3 H (20.0-26.0) mmol/L ABG Hemoglobin 9.2 L (14.0-18.0) gm/dl Potassium 3.2 L (3.6-5.0) mmol/L
[2019-07-22] MEDS: CEFEPIME/NS 1 GM/100 ML 1 GM/100 ML BAG IV SCH (21:33)
[2019-07-22 22:28] LABS: Calcium 8.6 mg/dL (8.4-10.2)
[2019-07-23] MEDS: metroNIDAZOLE/NS 500 MG/100 ML 500 MG/100 ML BAG IV SCH ×3 (05:51→21:31)
[2019-07-23 06:22] LABS: Calcium 8.7 mg/dL (8.4-10.2)
[2019-07-23] MEDS ORDERED: POTASSIUM CHLORIDE 20 MEQ PACKET FEEDTUBE NR (07:55)
--- NOTE | 2019-07-23 08:05 | Hem/Onc Progress Note ---
Assessment and Plan 1. Anemia. The patient's MCV is 95. LDH was 294. Serum iron is low. Bilirubin is not elevated. Folate is low. Anemia may be secondary to bleed. As per the information available, the patient was placed on Eliquis and had some bleeding issues. Trend of hemoglobin show that on admission hemoglobin was 9.7. Renal impairment may have a role in the anemia. At admission, creatinine was 8.8. At this time, the patient is on Procrit. The patient may need iron supplement, folate supplement. 2. Heart failure. 3. Respiratory failure. 4. Renal impairment. 5. Pneumonia. 6. Suspected anoxic brain injury. 7. Deafness, language barrier. 8. Obesity. 9. History of thrombocytopenia. 10. History of atrial flutter with rapid ventricular response. 11. I will follow the patient during inpatient stay and then in the clinic setting. At this time, there is no evidence of hemolysis. iron folate supplement ckd may have a role in anemia - Patient Problems (1) Anemia Current Visit: Yes Status: Acute Qualifiers: Anemia type: iron deficiency Subjective Date of service: 07/23/19 Principal diagnosis: anemia Interval history: d/w RN - no bleeding pt not sedated - opens eyes - but not tracking Objective - Exam Narrative Exam: Pain - n/a General appearance -vent Performance status complete dependent for care Eyes - no icterus ENT - intubated LNs cervical not palpable Neck - no LN Respiratory Normal - on o2 Breath sounds - CTA anteriorly CVS S1 S2 + Extremities no edema General GI Soft Rectal deferred male - deferred Skin warm Musculoskeletal - vent Neurologically intubated - Constitutional Vitals: Last Vital Signs Temp 99.3 F 07/23/19 04:00 Pulse 94 H 07/23/19 07:00 Resp 20 07/23/19 07:00 BP 148/73 07/23/19 07:00 Pulse Ox 99 07/23/19 07:00 - Labs Lab Results: Laboratory Results - last 24 hr 07/22/19 07/23/19 21:45 05:30 Sodium 142 138 Potassium 3.1 L 3.1 L Chloride 102.0 99.7 Carbon Dioxide 26 23 Anion Gap 17 18 BUN 75 H 80 H Creatinine 2.9 H 2.6 H Estimated GFR 28 32 BUN/Creatinine Ratio 26 31 Glucose 123 H 112 H Calcium 8.6 8.7 Medications & Allergies - Medications Allergies/Adverse Reactions: Allergies No Known Allergies Allergy (Verified 07/01/19 11:20) Home Medications: Home Medications Medication Instructions Recorded Confirmed Last Taken Type Magnesium Oxide 400 mg PO BIDAC #60 tablet 12/07/16 07/13/19 1 Day Ago Rx ~09/16/17 Thiamine [Vitamin B-1] 100 mg PO QDAY #30 tablet 12/07/16 07/13/19 2 Days Ago Rx ~09/14/17 100 mg Lisinopril [Zestril] 20 mg PO DAILY #30 tablet 09/18/17 07/13/19 Unknown Rx Pantoprazole [Protonix TAB] 40 mg PO BID #60 tablet 09/18/17 07/13/19 Unknown Rx Aspirin [Aspirin BABY CHEW TAB] 81 mg PO QDAY #30 tab.chew 07/05/19 07/13/19 Unknown Rx Furosemide [Lasix TAB] 40 mg PO BID #60 tablet 07/05/19 07/13/19 Unknown Rx Nitroglycerin [Nitrostat] 0.4 mg SL .Q5MIN PRN #10 tablet 07/05/19 07/13/19 Unknown Rx Spironolactone [Aldactone] 12.5 mg PO QDAY #30 tablet 07/05/19 07/13/19 Unknown Rx carvediloL [Coreg] 6.25 mg PO BID #60 tablet 07/05/19 07/13/19 Unknown Rx lisinopriL [Zestril TAB] 20 mg PO QDAY #30 tablet 07/05/19 07/13/19 Unknown Rx Active Medications: Generic Name Dose Route Start Last Admin Trade Name Karol PRN Reason Stop Dose Admin Acetaminophen 650 mg 07/20/19 16:56 07/22/19 01:58 Tylenol FEEDTUBE 650 mg Q6H PRN Administration Fever >101 Albuterol 2.5 mg 07/14/19 04:54 07/16/19 13:42 Proventil IH 2.5 mg Q4HRT PRN Administration Shortness Of Breath Lipase/Protease/Amylase 1 each 07/18/19 13:20 Pancrenarinder Moeller 10,500 Unit FEEDTUBE PRN PRN For Clogged Feeding Tube Epoetin Barney 10,000 unit 07/14/19 10:13 07/18/19 22:04 Procrit IV 10,000 unit CHEMA PRN Administration DIALYSIS Haloperidol Lactate 5 mg 07/12/19 21:35 07/12/19 21:09 Haldol IV 5 mg Q1H PRN Administration Unrespon. to mult. doses BZD's Sodium Chloride 100 mls @ 999 mls/hr 07/16/19 12:11 Nacl 0.9% IV CHEMA PRN Hypotension Norepinephrine 8 mg/ Sodium 250 mls @ 3.75 mls/hr 07/17/19 14:00 07/18/19 20:39 Chloride IV 0 mcg/min TITR TERRELL 0 mls/hr Titration Protocol 2 MCG/MIN Vasopressin 20 unit/ Sodium 101 mls @ 9.09 mls/hr 07/17/19 15:00 Chloride IV TITR TERRELL Protocol 0.03 UNITS/MIN Metronidazole 500 mg in 100 mls @ 100 mls/hr 07/17/19 17:00 07/23/19 05:51 Flagyl 500 Mg/100 Ml IV 100 mls/hr Q8HR TERRELL Administration Protocol Cefepime HCl 1 gm in 100 mls @ 200 mls/hr 07/17/19 17:20 07/22/19 21:33 Cefepime/Ns 1 Gm/100 Ml IV 200 mls/hr Q24H TERRELL Administration Lansoprazole 30 mg 07/18/19 11:00 07/22/19 10:09 Prevacid Solutab FEEDTUBE 30 mg QDAY TERRELL Administration Potassium Chloride 20 meq 07/23/19 07:55 Potassium Chloride FEEDTUBE 07/23/19 09:00 ONCE NR Simple Syrup 15 ml 07/18/19 13:20 Simple Syrup FEEDTUBE PRN PRN Hypoglycemia Simple Syrup 30 ml 07/18/19 13:20 Simple Syrup FEEDTUBE PRN PRN Hypoglycemia Sodium Bicarbonate 325 mg 07/18/19 13:20 Sodium Bicarbonate FEEDTUBE PRN PRN For Clogged Feeding Tube Thiamine HCl 100 mg 07/22/19 10:00 07/22/19 10:09 Vitamin B-1 PO 100 mg QDAY TERRELL Administration
[2019-07-23] MEDS ORDERED: POTASSIUM CHLORIDE 20 MEQ PACKET FEEDTUBE ONE (10:00)
[2019-07-23] MEDS: THIAMINE 100 MG TAB PO SCH (10:02)
[2019-07-23] MEDS: LANSOPRAZOLE 30 MG SOLUTAB FEEDTUBE SCH (10:02)
--- NOTE | 2019-07-23 10:21 | Progress Note ---
Assessment and Plan 48 y/o male with inhouse cardiac arrest x2 1. Ok with fecal management system. 2. No sedation 3. Will continue PSV trials as tolerated, currently on and tolerated. 4. no evidence of seizure but based on report, suggestive of anoxia. Will defer to primary but would be reasonable to have the current neurologist evaluate and discuss with family. The likelyhood of functional return seems poor given his events and multiple cardiac arrests. 5. Overall prognosis is guarded to poor. CCT 31 minutes. Subjective Date of service: 07/23/19 Principal diagnosis: anemia Interval history: No acute events. Stable pulm munoz. Tolerated PSV all day yesterday. Mental state is unchanged. Objective Vital Signs - 12hr 07/22/19 07/23/19 07/23/19 23:00 00:00 00:10 Temperature 98.8 F Pulse Rate 101 H 102 H 98 H Pulse Rate [ 102 H From Monitor] Respiratory 18 25 H Rate Blood Pressure 142/78 166/90 142/72 O2 Sat by Pulse 98 99 99 Oximetry 07/23/19 07/23/19 07/23/19 01:00 02:00 03:00 Temperature Pulse Rate 107 H 91 H 103 H Pulse Rate [ From Monitor] Respiratory 22 20 22 Rate Blood Pressure 142/82 142/72 149/85 O2 Sat by Pulse 98 98 99 Oximetry 07/23/19 07/23/19 07/23/19 04:00 04:54 05:00 Temperature 99.3 F Pulse Rate 90 89 99 H Pulse Rate [ 88 From Monitor] Respiratory 19 19 Rate Blood Pressure 144/76 159/82 172/82 O2 Sat by Pulse 98 99 98 Oximetry 07/23/19 07/23/19 07/23/19 06:00 07:00 08:00 Temperature 98.6 F Pulse Rate 98 H 94 H 86 Pulse Rate [ 88 From Monitor] Respiratory 19 20 20 Rate Blood Pressure 162/88 148/73 139/58 O2 Sat by Pulse 99 99 98 Oximetry 07/23/19 07/23/19 07/23/19 08:32 08:37 09:00 Temperature Pulse Rate 97 H 99 H 98 H Pulse Rate [ From Monitor] Respiratory 21 22 Rate Blood Pressure 152/82 152/82 145/74 O2 Sat by Pulse 100 100 99 Oximetry Constitutional: no acute distress, comatose Eyes: non-icteric ENT: other (orally intubated not on sedation) Neck: supple Effort: normal Ascultation: Bilateral: clear Gastrointestinal: normoactive bowel sounds, soft, non-tender CBC and BMP: 07/22/19 06:00 07/23/19 05:30 ABG, PT/INR, D-dimer: ABG ABG pH 7.442 pH Units (7.350-7.450) 07/22/19 03:40 ABG pCO2 41.0 mm Hg 07/22/19 03:40 ABG pO2 99.4 mm Hg (80.0-90.0) H 07/22/19 03:40 ABG O2 Saturation 97.7 % (95.0-99.0) 07/22/19 03:40 PT/INR, D-dimer PT 19.8 Sec. (12.2-14.9) H 07/12/19 15:08 INR 1.65 (0.87-1.13) H 07/12/19 15:08 Abnormal lab findings: Abnormal Labs 07/12/19 07/12/19 07/12/19 14:46 15:08 15:08 WBC 14.7 H RBC 2.97 L Hgb 9.7 L Hct 29.0 L MCV 98 H MCH 33 H RDW 19.8 H Plt Count 124 L Seg Neuts % (Manual) 91.0 H Lymphocytes % (Manual) 2.0 L Nucleated RBC % 1.0 H Seg Neutrophils # Man 13.4 H Lymphocytes # (Manual) 0.3 L PT 19.8 H INR 1.65 H APTT 47.8 H ABG pH ABG pO2 ABG HCO3 ABG O2 Saturation ABG Base Excess ABG Hemoglobin Oxyhemoglobin Sodium Potassium Chloride Carbon Dioxide BUN Creatinine Glucose POC Glucose 110 H Calcium Phosphorus Magnesium Iron TIBC Ferritin Total Bilirubin Direct Bilirubin AST Alkaline Phosphatase Lactate Dehydrogenase Troponin T NT-Pro-B Natriuret Pep Total Protein Albumin LDL Cholesterol Direct Vitamin B12 Folate Urine WBC (Auto) Urine Creatinine Urine Total Protein Fluid Glucose Fluid Total Protein 07/12/19 07/12/19 07/12/19 15:08 15:08 15:08 WBC RBC Hgb Hct MCV MCH RDW Plt Count Seg Neuts % (Manual) Lymphocytes % (Manual) Nucleated RBC % Seg Neutrophils # Man Lymphocytes # (Manual) PT INR APTT ABG pH ABG pO2 ABG HCO3 ABG O2 Saturation ABG Base Excess ABG Hemoglobin Oxyhemoglobin Sodium 125 L Potassium 5.5 H Chloride 84.9 L Carbon Dioxide 13 L BUN 70 H Creatinine 8.8 H Glucose POC Glucose Calcium 8.0 L Phosphorus Magnesium 1.30 L Iron TIBC Ferritin Total Bilirubin 1.30 H Direct Bilirubin 0.9 H AST 53 H Alkaline Phosphatase 208 H Lactate Dehydrogenase Troponin T 0.192 H* NT-Pro-B Natriuret Pep > 13341 H Total Protein Albumin 3.3 L LDL Cholesterol Direct 40 L Vitamin B12 Folate Urine WBC (Auto) Urine Creatinine Urine Total Protein Fluid Glucose Fluid Total Protein 07/12/19 07/13/19 07/13/19 17:04 01:32 01:32 WBC RBC Hgb Hct MCV MCH RDW Plt Count Seg Neuts % (Manual) Lymphocytes % (Manual) Nucleated RBC % Seg Neutrophils # Man Lymphocytes # (Manual) PT INR APTT ABG pH ABG pO2 ABG HCO3 ABG O2 Saturation ABG Base Excess ABG Hemoglobin Oxyhemoglobin Sodium 133 L D Potassium 5.3 H Chloride 90.8 L Carbon Dioxide 20 L D BUN 48 H Creatinine 6.2 H Glucose 105 H POC Glucose Calcium 8.2 L Phosphorus 4.90 H Magnesium 1.50 L Iron TIBC Ferritin Total Bilirubin Direct Bilirubin AST Alkaline Phosphatase Lactate Dehydrogenase Troponin T 0.188 H* NT-Pro-B Natriuret Pep Total Protein Albumin LDL Cholesterol Direct Vitamin B12 Folate Urine WBC (Auto) Urine Creatinine Urine Total Protein Fluid Glucose Fluid Total Protein 07/13/19 07/13/19 07/13/19 04:28 04:28 16:16 WBC 15.9 H RBC 3.10 L Hgb 10.2 L Hct 30.6 L MCV 99 H MCH 33 H RDW 19.4 H Plt Count 135 L Seg Neuts % (Manual) Lymphocytes % (Manual) 4.0 L Nucleated RBC % Seg Neutrophils # Man 9.9 H Lymphocytes # (Manual) 0.6 L PT INR APTT ABG pH ABG pO2 ABG HCO3 ABG O2 Saturation ABG Base Excess ABG Hemoglobin Oxyhemoglobin Sodium 132 L 134 L Potassium 5.1 H Chloride 90.3 L 92.2 L Carbon Dioxide 17 L 20 L BUN 47 H 55 H Creatinine 6.0 H 6.5 H Glucose 124 H POC Glucose Calcium 8.2 L 7.9 L Phosphorus Magnesium Iron TIBC Ferritin Total Bilirubin Direct Bilirubin AST Alkaline Phosphatase Lactate Dehydrogenase Troponin T NT-Pro-B Natriuret Pep Total Protein Albumin LDL Cholesterol Direct Vitamin B12 Folate Urine WBC (Auto) Urine Creatinine Urine Total Protein Fluid Glucose Fluid Total Protein 07/14/19 07/14/19 07/14/19 07:16 07:16 07:16 WBC RBC 2.65 L Hgb 8.6 L Hct 25.4 L MCV 96 H MCH 33 H RDW 19.7 H Plt Count 114 L Seg Neuts % (Manual) 89.0 H Lymphocytes % (Manual) 4.0 L Nucleated RBC % Seg Neutrophils # Man Lymphocytes # (Manual) 0.3 L PT INR APTT ABG pH ABG pO2 ABG HCO3 ABG O2 Saturation ABG Base Excess ABG Hemoglobin Oxyhemoglobin Sodium 133 L Potassium Chloride 93.0 L Carbon Dioxide 18 L BUN 61 H Creatinine 7.3 H Glucose 113 H POC Glucose Calcium 7.7 L Phosphorus Magnesium Iron TIBC Ferritin Total Bilirubin Direct Bilirubin AST Alkaline Phosphatase Lactate Dehydrogenase 210 H Troponin T NT-Pro-B Natriuret Pep Total Protein Albumin LDL Cholesterol Direct Vitamin B12 Folate Urine WBC (Auto) Urine Creatinine Urine Total Protein Fluid Glucose Fluid Total Protein 07/14/19 07/14/19 07/14/19 10:45 16:40 17:28 WBC RBC Hgb Hct MCV MCH RDW Plt Count Seg Neuts % (Manual) Lymphocytes % (Manual) Nucleated RBC % Seg Neutrophils # Man Lymphocytes # (Manual) PT INR APTT ABG pH ABG pO2 ABG HCO3 ABG O2 Saturation ABG Base Excess ABG Hemoglobin Oxyhemoglobin Sodium Potassium Chloride Carbon Dioxide BUN Creatinine Glucose POC Glucose Calcium Phosphorus Magnesium Iron TIBC Ferritin Total Bilirubin Direct Bilirubin AST Alkaline Phosphatase Lactate Dehydrogenase Troponin T NT-Pro-B Natriuret Pep Total Protein Albumin LDL Cholesterol Direct Vitamin B12 Folate Urine WBC (Auto) Urine Creatinine 104.2 H 106.2 H Urine Total Protein 173 H Fluid Glucose 93 H Fluid Total Protein 4.7 L 07/14/19 07/14/19 07/15/19 17:28 20:43 06:30 WBC RBC 3.06 L Hgb 9.9 L Hct 29.7 L MCV 97 H MCH 33 H RDW 19.5 H Plt Count 101 L Seg Neuts % (Manual) Lymphocytes % (Manual) Nucleated RBC % Seg Neutrophils # Man Lymphocytes # (Manual) PT INR APTT ABG pH ABG pO2 ABG HCO3 ABG O2 Saturation ABG Base Excess ABG Hemoglobin Oxyhemoglobin Sodium Potassium Chloride Carbon Dioxide BUN Creatinine Glucose POC Glucose 120 H Calcium Phosphorus Magnesium Iron TIBC Ferritin Total Bilirubin Direct Bilirubin AST Alkaline Phosphatase Lactate Dehydrogenase Troponin T NT-Pro-B Natriuret Pep Total Protein Albumin LDL Cholesterol Direct Vitamin B12 Folate Urine WBC (Auto) 31.0 H Urine Creatinine Urine Total Protein Fluid Glucose Fluid Total Protein 07/15/19 07/15/19 07/15/19 06:30 06:30 06:30 WBC RBC Hgb Hct MCV MCH RDW Plt Count Seg Neuts % (Manual) Lymphocytes % (Manual) Nucleated RBC % Seg Neutrophils # Man Lymphocytes # (Manual) PT INR APTT ABG pH ABG pO2 ABG HCO3 ABG O2 Saturation ABG Base Excess ABG Hemoglobin Oxyhemoglobin Sodium Potassium Chloride 95.2 L Carbon Dioxide BUN 42 H Creatinine 4.9 H Glucose POC Glucose Calcium Phosphorus Magnesium Iron 15 L TIBC 186 L Ferritin 428.2 H Total Bilirubin Direct Bilirubin AST 50 H Alkaline Phosphatase 191 H Lactate Dehydrogenase Troponin T NT-Pro-B Natriuret Pep Total Protein Albumin 3.1 L LDL Cholesterol Direct Vitamin B12 Folate Urine WBC (Auto) Urine Creatinine Urine Total Protein Fluid Glucose Fluid Total Protein 07/15/19 07/16/19 07/16/19 12:42 06:19 21:34 WBC RBC Hgb Hct MCV MCH RDW Plt Count Seg Neuts % (Manual) Lymphocytes % (Manual) Nucleated RBC % Seg Neutrophils # Man Lymphocytes # (Manual) PT INR APTT ABG pH ABG pO2 ABG HCO3 ABG O2 Saturation ABG Base Excess ABG Hemoglobin Oxyhemoglobin Sodium 134 L 134 L Potassium Chloride 92.9 L 93.4 L Carbon Dioxide 20 L BUN 55 H 40 H Creatinine 5.6 H 4.4 H Glucose POC Glucose 140 H Calcium Phosphorus Magnesium Iron TIBC Ferritin Total Bilirubin Direct Bilirubin AST Alkaline Phosphatase Lactate Dehydrogenase Troponin T NT-Pro-B Natriuret Pep Total Protein Albumin LDL Cholesterol Direct Vitamin B12 Folate Urine WBC (Auto) Urine Creatinine Urine Total Protein Fluid Glucose Fluid Total Protein 07/17/19 07/17/19 07/17/19 05:27 12:10 12:52 WBC RBC Hgb Hct MCV MCH RDW Plt Count Seg Neuts % (Manual) Lymphocytes % (Manual) Nucleated RBC % Seg Neutrophils # Man Lymphocytes # (Manual) PT INR APTT ABG pH ABG pO2 ABG HCO3 ABG O2 Saturation ABG Base Excess ABG Hemoglobin Oxyhemoglobin Sodium 136 L Potassium Chloride 93.6 L Carbon Dioxide BUN 43 H Creatinine 4.8 H Glucose POC Glucose 122 H 122 H Calcium Phosphorus Magnesium Iron TIBC Ferritin Total Bilirubin Direct Bilirubin AST Alkaline Phosphatase Lactate Dehydrogenase Troponin T NT-Pro-B Natriuret Pep Total Protein Albumin LDL Cholesterol Direct Vitamin B12 Folate Urine WBC (Auto) Urine Creatinine Urine Total Protein Fluid Glucose Fluid Total Protein 07/17/19 07/18/19 07/18/19 13:50 04:20 05:40 WBC RBC Hgb Hct MCV MCH RDW Plt Count Seg Neuts % (Manual) Lymphocytes % (Manual) Nucleated RBC % Seg Neutrophils # Man Lymphocytes # (Manual) PT INR APTT ABG pH 7.262 L ABG pO2 195.5 H 238.9 H ABG HCO3 ABG O2 Saturation 99.1 H 99.4 H ABG Base Excess -2.9 L ABG Hemoglobin 8.6 L 10.9 L Oxyhemoglobin Sodium Potassium Chloride 94.5 L Carbon Dioxide BUN 61 H Creatinine 5.6 H Glucose 111 H POC Glucose Calcium Phosphorus 4.70 H Magnesium Iron TIBC Ferritin Total Bilirubin Direct Bilirubin AST Alkaline Phosphatase Lactate Dehydrogenase 294 H Troponin T NT-Pro-B Natriuret Pep Total Protein Albumin LDL Cholesterol Direct Vitamin B12 Folate Urine WBC (Auto) Urine Creatinine Urine Total Protein Fluid Glucose Fluid Total Protein 07/18/19 07/18/19 07/18/19 05:40 05:40 10:30 WBC 22.7 H RBC 2.64 L Hgb 8.2 L Hct 24.9 L MCV 95 H MCH RDW 19.7 H Plt Count 94 L Seg Neuts % (Manual) Lymphocytes % (Manual) Nucleated RBC % Seg Neutrophils # Man Lymphocytes # (Manual) PT INR APTT ABG pH 7.457 H ABG pO2 ABG HCO3 26.3 H ABG O2 Saturation ABG Base Excess ABG Hemoglobin 7.8 L Oxyhemoglobin 94.6 L Sodium Potassium Chloride Carbon Dioxide BUN Creatinine Glucose POC Glucose Calcium Phosphorus Magnesium Iron TIBC Ferritin Total Bilirubin Direct Bilirubin 0.7 H AST 94 H Alkaline Phosphatase 159 H Lactate Dehydrogenase Troponin T NT-Pro-B Natriuret Pep Total Protein 5.6 L D Albumin 2.5 L LDL Cholesterol Direct Vitamin B12 Folate Urine WBC (Auto) Urine Creatinine Urine Total Protein Fluid Glucose Fluid Total Protein 0107/19/19 07/19/19 Unknown 05:15 05:15 WBC RBC Hgb Hct MCV MCH RDW Plt Count Seg Neuts % (Manual) Lymphocytes % (Manual) Nucleated RBC % Seg Neutrophils # Man Lymphocytes # (Manual) PT INR APTT ABG pH ABG pO2 ABG HCO3 ABG O2 Saturation ABG Base Excess ABG Hemoglobin 11.6 L Oxyhemoglobin 94.3 L Sodium 133 L Potassium Chloride 94.9 L Carbon Dioxide BUN 43 H Creatinine 4.0 H Glucose 118 H POC Glucose Calcium Phosphorus Magnesium 0.20 L* Iron TIBC Ferritin Total Bilirubin Direct Bilirubin AST Alkaline Phosphatase Lactate Dehydrogenase Troponin T NT-Pro-B Natriuret Pep Total Protein Albumin LDL Cholesterol Direct Vitamin B12 Folate Urine WBC (Auto) Urine Creatinine Urine Total Protein Fluid Glucose Fluid Total Protein 07/19/19 07/19/19 07/20/19 05:15 06:00 06:15 WBC 14.6 H RBC 2.57 L Hgb 8.2 L Hct 24.3 L MCV 95 H MCH RDW 19.5 H Plt Count 101 L Seg Neuts % (Manual) Lymphocytes % (Manual) Nucleated RBC % Seg Neutrophils # Man Lymphocytes # (Manual) PT INR APTT ABG pH ABG pO2 91.2 H ABG HCO3 27.5 H ABG O2 Saturation ABG Base Excess ABG Hemoglobin 8.3 L Oxyhemoglobin Sodium Potassium Chloride Carbon Dioxide BUN 61 H Creatinine 4.6 H Glucose 117 H POC Glucose Calcium Phosphorus Magnesium Iron TIBC Ferritin Total Bilirubin Direct Bilirubin AST Alkaline Phosphatase Lactate Dehydrogenase Troponin T NT-Pro-B Natriuret Pep Total Protein Albumin LDL Cholesterol Direct Vitamin B12 Folate Urine WBC (Auto) Urine Creatinine Urine Total Protein Fluid Glucose Fluid Total Protein 07/21/19 07/21/19 07/21/19 05:30 06:15 06:15 WBC 11.8 H RBC 2.45 L Hgb 7.9 L Hct 23.5 L MCV 96 H MCH RDW 19.4 H Plt Count Seg Neuts % (Manual) Lymphocytes % (Manual) Nucleated RBC % Seg Neutrophils # Man Lymphocytes # (Manual) PT INR APTT ABG pH ABG pO2 104.5 H ABG HCO3 27.9 H ABG O2 Saturation ABG Base Excess 3.3 H ABG Hemoglobin 8.2 L Oxyhemoglobin Sodium Potassium 3.3 L Chloride Carbon Dioxide BUN 74 H Creatinine 4.3 H Glucose 127 H POC Glucose Calcium Phosphorus Magnesium Iron TIBC Ferritin Total Bilirubin Direct Bilirubin AST Alkaline Phosphatase Lactate Dehydrogenase Troponin T NT-Pro-B Natriuret Pep Total Protein Albumin LDL Cholesterol Direct Vitamin B12 Folate Urine WBC (Auto) Urine Creatinine Urine Total Protein Fluid Glucose Fluid Total Protein 07/21/19 07/21/19 07/21/19 08:00 08:00 17:51 WBC RBC Hgb Hct MCV MCH RDW Plt Count Seg Neuts % (Manual) Lymphocytes % (Manual) Nucleated RBC % Seg Neutrophils # Man Lymphocytes # (Manual) PT INR APTT ABG pH ABG pO2 ABG HCO3 ABG O2 Saturation ABG Base Excess ABG Hemoglobin Oxyhemoglobin Sodium Potassium 3.2 L Chloride Carbon Dioxide BUN Creatinine Glucose POC Glucose Calcium Phosphorus Magnesium Iron TIBC Ferritin Total Bilirubin Direct Bilirubin AST Alkaline Phosphatase Lactate Dehydrogenase Troponin T NT-Pro-B Natriuret Pep Total Protein Albumin LDL Cholesterol Direct Vitamin B12 960.4 H Folate 6.18 L Urine WBC (Auto) Urine Creatinine Urine Total Protein Fluid Glucose Fluid Total Protein 07/22/19 07/22/19 07/22/19 03:40 06:00 21:45 WBC 12.6 H RBC 2.54 L Hgb 7.8 L Hct 24.2 L MCV 95 H MCH RDW 19.7 H Plt Count Seg Neuts % (Manual) Lymphocytes % (Manual) Nucleated RBC % Seg Neutrophils # Man Lymphocytes # (Manual) PT INR APTT ABG pH ABG pO2 99.4 H ABG HCO3 27.3 H ABG O2 Saturation ABG Base Excess ABG Hemoglobin 9.2 L Oxyhemoglobin Sodium Potassium 3.1 L Chloride Carbon Dioxide BUN 75 H Creatinine 2.9 H Glucose 123 H POC Glucose Calcium Phosphorus Magnesium Iron TIBC Ferritin Total Bilirubin Direct Bilirubin AST Alkaline Phosphatase Lactate Dehydrogenase Troponin T NT-Pro-B Natriuret Pep Total Protein Albumin LDL Cholesterol Direct Vitamin B12 Folate Urine WBC (Auto) Urine Creatinine Urine Total Protein Fluid Glucose Fluid Total Protein 07/23/19 05:30 WBC RBC Hgb Hct MCV MCH RDW Plt Count Seg Neuts % (Manual) Lymphocytes % (Manual) Nucleated RBC % Seg Neutrophils # Man Lymphocytes # (Manual) PT INR APTT ABG pH ABG pO2 ABG HCO3 ABG O2 Saturation ABG Base Excess ABG Hemoglobin Oxyhemoglobin Sodium Potassium 3.1 L Chloride Carbon Dioxide BUN 80 H Creatinine 2.6 H Glucose 112 H POC Glucose Calcium Phosphorus Magnesium Iron TIBC Ferritin Total Bilirubin Direct Bilirubin AST Alkaline Phosphatase Lactate Dehydrogenase Troponin T NT-Pro-B Natriuret Pep Total Protein Albumin LDL Cholesterol Direct Vitamin B12 Folate Urine WBC (Auto) Urine Creatinine Urine Total Protein Fluid Glucose Fluid Total Protein
--- NOTE | 2019-07-23 10:51 | Progress Note ---
Assessment and Plan Assessment and plan: 48-year-old man with a history of being deaf (writes to communicate) HTN, Systolic CHF(EF 20%), anxiety, depression COPD and GERD who presented to [facility] ED with severe SOB. EMS found patient to have a pulse oximetry of 80% on room air, improved to 92% on 2 L of supplemental oxygen. Patient was confused and provided limited history. Patient refused BiPAP. Patient given 40 mg of Lasix IV and and EMS gave 40mg iv lasix prior to arrival. Patient was found to have left lower lobe pneumonia, complicated by acute respiratory failure, severe Uremia, hyponatremia, hyperkalemia, metabolic acidosis. Patient admitted to medical floor for medical stabilization and treatment due to high risk for cardiopul monary and renal decompensation. Nephrology team consulted in ED for urgent dialysis. Patient initiated on pneumonia protocol with IV antibiotic therapy. Patient treated with calcium gluconate and Kayexalate for hyperkalemia in ED. EKG showed no changes. Patient mental status so poor he had to be put in restraints to prevent for pulling and removing O2. Next day, patient remained confused, so He went down for CT head and he must've removed O2 mask while in CT scanner or had a fatal cardiac arrhythmia which he was experiencing NSVT/aflutter with RVR the night before. This led to Cardiac arrest. ED physician was the first to respond and saw Asystole on the monitor, ACLS done and when I arrived he was in PEA. He was a difficult Intubation as he had bleeding in the Endotracheal area due to Eliquis which was started on 07/16/2019. He was intubated by ED physician. Pulse was restored and he was sent to the ICU, where he had another Cardiac arrest with PEA, ACLS done again and pulse meg red. Overnight he was posturing. He is comatose without any sedative. -History of deafness * pCXR showed bilateral pleural effusion with significant pulmonary congestion. EKG showed no ST elevation. * Initial Labs: WBC 14.7, hgb 9.7, plt 124, Na 125, k 5.5, co2 13, BUN 70, Cr 8.8 Acute on chronic systolic heart failure decompensation leading to respiratory failure: Meds optimized. Improving with dialysis. Acute hypoxic respiratory failure on MV > 96 hours, continue mechanical ventilator Severe ARF due to ATN, getting dialysis as needed, been evaluated on a day-to-day basis. Nephrology input appreciated AMS, acute metabolic encephalopathy, poa, thought to be due to severe Uremia, but uremia improved and he still confused, needing restraints, CT head unrevealing, history of alcohol abuse Anemia appears AOCD due to renal dysfunction: continue to monitor cbc Thrombocytopenia: repeat cbc Morbid Obesity, bmi 44.1: academic counselor on lifestyle modification AFlutter with RVR on 07/16/2019: treat with coreg and Eliquis initiated by Dr. Sadler, NSVT 07/16/2019 overnight: bb Anoxic brain injury: EEG negative for seizure, neurology input appreciated, poor prognosis Hypokalemia; repleted Hypertensive urgency; BP meds adjusted, improving full code DVT ppx: scd only Discussed the goals of care and updated his father and his father's girlfriend. Explained the very poor prognosis. They would like to have family meeting with other family members and will return to us with a plan. Explained the options of hospice and removal of right support versus trach and PEG and fpc. They are leaning towards trach PEG and fpc. Advanced care planning performed for 30 minutes. Critical care time 35 minutes. History Interval history: No fevers No vomiting no seizure-like activity No diarrhea No agitation No obvious discomfort Hospitalist Physical - Physical exam Narrative exam: General.: Appears ill, not responsive HEENT: Moist mucous membranes, extraocular muscles intact, no lymphadenopathy Neck: supple Cardiac: S1-S2 heard Lungs: Rhonchorous and ventilated breath sounds. Abdomen: soft , nontender, nondistended, bowel sounds positive Extremities: no edema clubbing or cyanosis Skin: no rash or lesions Neurologic: Intubated, not responsive, has some spontaneous movements - Constitutional Vitals: Temp Pulse Resp BP Pulse Ox 98.6 F 109 H 25 H 158/83 100 07/23/19 08:00 07/23/19 10:00 07/23/19 10:00 07/23/19 10:00 07/23/19 10:00 General appearance: Present: no acute distress Results - Labs CBC & Chem 7: 07/22/19 06:00 07/23/19 05:30 Labs: Laboratory Last Values WBC 12.6 K/mm3 (4.5-11.0) H 07/22/19 06:00 RBC 2.54 M/mm3 (3.65-5.03) L 02/04/20 06:00 Hgb 7.8 gm/dl (11.8-15.2) L 07/22/19 06:00 Hct 24.2 % (35.5-45.6) L 07/22/19 06:00 MCV 95 fl (84-94) H 07/22/19 06:00 MCH 31 pg (28-32) 07/22/19 06:00 MCHC 32 % (32-34) 07/22/19 06:00 RDW 19.7 % (13.2-15.2) H 07/22/19 06:00 Plt Count 233 K/mm3 (140-440) 07/22/19 06:00 Lymph % (Auto) Delivery Route Driver 07/13/19 04:28 Mcdowell % (Auto) Delivery Route Driver 07/13/19 04:28 Eos % (Auto) Delivery Route Driver 07/13/19 04:28 Baso % (Auto) Delivery Route Driver 07/13/19 04:28 Lymph # Delivery Route Driver 07/13/19 04:28 Mcdowell # Delivery Route Driver 07/13/19 04:28 Eos # Delivery Route Driver 07/13/19 04:28 Baso # Delivery Route Driver 07/13/19 04:28 Add Manual Diff Complete 07/14/19 07:16 Total Counted 100 07/14/19 07:16 Seg Neutrophils % Delivery Route Driver 07/13/19 04:28 Seg Neuts % (Manual) 89.0 % (40.0-70.0) H 07/14/19 07:16 Band Neutrophils % 0 % 07/14/19 07:16 Lymphocytes % (Manual) 4.0 % (13.4-35.0) L 07/14/19 07:16 Reactive Lymphs % (Man) 0 % 07/14/19 07:16 Monocytes % (Manual) 7.0 % (0.0-7.3) 07/14/19 07:16 Eosinophils % (Manual) 0 % (0.0-4.3) 07/14/19 07:16 Basophils % (Manual) 0 % (0.0-1.8) 07/14/19 07:16 Metamyelocytes % 0 % 07/14/19 07:16 Myelocytes % 0 % 07/14/19 07:16 Promyelocytes % 0 % 07/14/19 07:16 Blast Cells % 0 % 07/14/19 07:16 Nucleated RBC % Not Reportable 07/14/19 07:16 Seg Neutrophils # Delivery Route Driver 07/13/19 04:28 Seg Neutrophils # Man 7.7 K/mm3 (1.8-7.7) 07/14/19 07:16 Band Neutrophils # 0.0 K/mm3 07/14/19 07:16 Lymphocytes # (Manual) 0.3 K/mm3 (1.2-5.4) L 07/14/19 07:16 Abs React Lymphs (Man) 0.0 K/mm3 07/14/19 07:16 Monocytes # (Manual) 0.6 K/mm3 (0.0-0.8) 07/14/19 07:16 Eosinophils # (Manual) 0.0 K/mm3 (0.0-0.4) 07/14/19 07:16 Basophils # (Manual) 0.0 K/mm3 (0.0-0.1) 07/14/19 07:16 Metamyelocytes # 0.0 K/mm3 07/14/19 07:16 Myelocytes # 0.0 K/mm3 07/14/19 07:16 Promyelocytes # 0.0 K/mm3 07/14/19 07:16 Blast Cells # 0.0 K/mm3 07/14/19 07:16 WBC Morphology Not Reportable 07/14/19 07:16 Hypersegmented Neuts Not Reportable 07/14/19 07:16 Hyposegmented Neuts Not Reportable 07/14/19 07:16 Hypogranular Neuts Not Reportable 07/14/19 07:16 Smudge Cells Not Reportable 07/14/19 07:16 Toxic Granulation Not Reportable 07/14/19 07:16 Toxic Vacuolation Not Reportable 07/14/19 07:16 Dohle Bodies Not Reportable 07/14/19 07:16 Pelger-Huet Anomaly Not Reportable 07/14/19 07:16 Mack Rods Not Reportable 07/14/19 07:16 Platelet Estimate Consistent w auto 07/14/19 07:16 Clumped Platelets Not Reportable 07/14/19 07:16 Plt Clumps, EDTA Not Reportable 07/14/19 07:16 Large Platelets Not Reportable 07/14/19 07:16 Giant Platelets Not Reportable 07/14/19 07:16 Platelet Satelliting Not Reportable 07/14/19 07:16 Plt Morphology Comment Not Reportable 07/14/19 07:16 RBC Morphology Not Reportable 07/14/19 07:16 Dimorphic RBCs Not Reportable 07/14/19 07:16 Polychromasia Not Reportable 07/14/19 07:16 Hypochromasia Not Reportable 07/14/19 07:16 Poikilocytosis Not Reportable 07/14/19 07:16 Anisocytosis 1+ 07/14/19 07:16 Microcytosis Not Reportable 07/14/19 07:16 Macrocytosis Not Reportable 07/14/19 07:16 Spherocytes Not Reportable 07/14/19 07:16 Pappenheimer Bodies Not Reportable 07/14/19 07:16 Sickle Cells Not Reportable 07/14/19 07:16 Target Cells Few 07/14/19 07:16 Tear Drop Cells Not Reportable 07/14/19 07:16 Ovalocytes Not Reportable 07/14/19 07:16 Helmet Cells Not Reportable 07/14/19 07:16 Jackson-Guion Bodies Not Reportable 07/14/19 07:16 Parkman Rings Not Reportable 07/14/19 07:16 Onley Cells Not Reportable 07/14/19 07:16 Bite Cells Not Reportable 07/14/19 07:16 Crenated Cell Not Reportable 07/14/19 07:16 Elliptocytes Not Reportable 07/14/19 07:16 Acanthocytes (Spur) Not Reportable 07/14/19 07:16 Rouleaux Not Reportable 07/14/19 07:16 Hemoglobin C Crystals Not Reportable 07/14/19 07:16 Schistocytes Not Reportable 07/14/19 07:16 Malaria parasites Not Reportable 07/14/19 07:16 Víctor Bodies Not Reportable 07/14/19 07:16 Hem Pathologist Commnt No 07/14/19 07:16 PT 19.8 Sec. (12.2-14.9) H 07/12/19 15:08 INR 1.65 (0.87-1.13) H 07/12/19 15:08 APTT 47.8 Sec. (24.2-36.6) H 07/12/19 15:08 ABG pH 7.442 pH Units (7.350-7.450) 07/22/19 03:40 ABG pCO2 41.0 mm Hg 07/22/19 03:40 ABG pO2 99.4 mm Hg (80.0-90.0) H 07/22/19 03:40 ABG HCO3 27.3 mmol/L (20.0-26.0) H 07/22/19 03:40 ABG O2 Saturation 97.7 % (95.0-99.0) 07/22/19 03:40 ABG O2 Content 12.5 (0.0-44) 07/22/19 03:40 ABG Base Excess 3.0 mmol/L (-2.0-3.0) 07/22/19 03:40 ABG Hemoglobin 9.2 gm/dl (14.0-18.0) L 07/22/19 03:40 ABG Carboxyhemoglobin 2.1 % (0.0-5.0) 07/22/19 03:40 ABG Methemoglobin 0.6 % (0.0-1.5) 07/22/19 03:40 Oxyhemoglobin 95.1 % (95.0-99.0) 07/22/19 03:40 FiO2 35 % 07/22/19 03:40 Sodium 138 mmol/L (137-145) 07/23/19 05:30 Potassium 3.1 mmol/L (3.6-5.0) L 07/23/19 05:30 Chloride 99.7 mmol/L (98-107) 07/23/19 05:30 Carbon Dioxide 23 mmol/L (22-30) 07/23/19 05:30 Anion Gap 18 mmol/L 07/23/19 05:30 BUN 80 mg/dL (9-20) H 07/23/19 05:30 Creatinine 2.6 mg/dL (0.8-1.5) H 07/23/19 05:30 Estimated GFR 32 ml/min 07/23/19 05:30 BUN/Creatinine Ratio 31 % 07/23/19 05:30 Glucose 112 mg/dL (75-100) H 07/23/19 05:30 POC Glucose 122 (70-105) H 07/17/19 12:52 Calcium 8.7 mg/dL (8.4-10.2) 07/23/19 05:30 Phosphorus 2.90 mg/dL (2.5-4.5) 07/20/19 06:15 Magnesium 1.70 mg/dL (1.7-2.3) 07/21/19 06:15 Iron 15 ug/dL (49-181) L 07/15/19 06:30 TIBC 186 mcg/dL (250-450) L 07/15/19 06:30 Ferritin 428.2 ng/mL (13.0-400.0) H 07/15/19 06:30 Total Bilirubin 1.10 mg/dL (0.1-1.2) 07/18/19 05:40 Direct Bilirubin 0.7 mg/dL (0-0.2) H 07/18/19 05:40 Indirect Bilirubin 0.4 mg/dL 07/18/19 05:40 AST 94 units/L (5-40) H 07/18/19 05:40 ALT 16 units/L (7-56) 07/18/19 05:40 Alkaline Phosphatase 159 units/L (35-129) H 07/18/19 05:40 Lactate Dehydrogenase 294 units/L (91-180) H 07/18/19 05:40 Total Creatine Kinase 59 units/L (55-170) 07/14/19 07:16 Troponin T 0.188 ng/mL (0.00-0.029) H* 07/12/19 17:04 NT-Pro-B Natriuret Pep > 43254 pg/mL (0-450) H 07/12/19 15:08 Total Protein 5.6 g/dL (6.3-8.2) L D 07/18/19 05:40 Albumin 2.5 g/dL (3.9-5) L 07/18/19 05:40 Albumin/Globulin Ratio 0.8 % 07/18/19 05:40 Triglycerides 128 mg/dL (2-149) 07/12/19 15:08 Cholesterol 121 mg/dL (50-199) 07/12/19 15:08 LDL Cholesterol Direct 40 mg/dL (50-130) L 07/12/19 15:08 HDL Cholesterol 44 mg/dL (40-59) 07/12/19 15:08 Cholesterol/HDL Ratio 2.75 % 07/12/19 15:08 Vitamin B12 960.4 pg/mL (211-911) H 07/21/19 08:00 Folate 6.18 ng/mL (7.3-26.0) L 07/21/19 08:00 Procalcitonin 8.19 ng/mL (<0.15) 07/23/19 05:30 Urine Color Eugenia (Yellow) 07/14/19 17:28 Urine Turbidity Slightly-cloudy (Clear) 07/14/19 17: Urine pH 5.0 (5.0-7.0) 07/14/19 17:28 Ur Specific Deeth 1.014 (1.003-1.030) 07/14/19 17:28 Urine Protein 100 mg/dl mg/dL (Negative) 07/14/19 17: Urine Glucose (UA) Neg mg/dL (Negative) 07/14/19 17: Urine Ketones Neg mg/dL (Negative) 07/14/19 17:28 Urine Blood Sm (Negative) 07/14/19 17: Urine Nitrite Neg (Negative) 07/14/19 17:28 Urine Bilirubin Neg (Negative) 07/14/19 17:28 Urine Urobilinogen < 2.0 mg/dL (<2.0) 07/14/19 17:28 Ur Leukocyte Esterase Neg (Negative) 07/14/19 17:28 Urine WBC (Auto) 31.0 /HPF (0.0-6.0) H 07/14/19 17:28 Urine RBC (Auto) 3.0 /HPF (0.0-6.0) 07/14/19 17:28 U Epithel Cells (Auto) < 1.0 /HPF (0-13.0) 07/14/19 17:28 Urine Bacteria (Auto) 1+ /HPF (Negative) 07/14/19 17:28 Urine Mucus Few /HPF 07/14/19 17:28 Urine Yeast (Budding) Few /HPF 07/14/19 17:28 Urine Eosinophils Rare seen (None Seen) 07/14/19 17:28 Urine Creatinine 106.2 mg/dL (0.1-20.0) H 07/14/19 17:28 Protein/Creatinin Ratio 1.66 07/14/19 16:40 Urine Sodium 67 mmol/L 07/14/19 17:28 Urine Urea Nitrogen 100 07/14/19 17:28 Urine Total Protein 173 mg/dL (5-11.8) H 07/14/19 16:40 Fluid Type Paracentesis 07/14/19 10:45 Fluid Color Bloody 07/14/19 10:45 Fluid Appearance Bloody 07/14/19 10:45 Fluid WBC 120 /mm3 07/14/19 10:45 Fluid RBC 22372 /mm3 07/14/19 10:45 Fluid Seg Neutrophils 33.0 % 07/14/19 10:45 Fluid Lymphocytes 17.0 % 07/14/19 10:45 Fluid Reactive Lymphs 0 % 07/14/19 10:45 Fluid Monocytes 50.0 % 07/14/19 10:45 Fluid Eosinophils 0 % 07/14/19 10:45 Fluid Basophils 0 % 07/14/19 10:45 Fluid Glucose 93 mg/dL (40-70) H 07/14/19 10:45 Fluid Total Protein 4.7 (15.0-45.0) L 07/14/19 10:45 Fluid LDH 07/14/19 10:45 Random Vancomycin 14.5 ug/mL (0-40.0) 07/19/19 05:15 SHANNA Screen Negative (Negative) 07/14/19 11:50 Proteinase 3 (PR3) Ab <1.0 AI (<1.0) 07/14/19 11:50 Myeloperoxidase Ab <1.0 AI (<1.0) 07/14/19 11:50 Complement C3 124 mg/dL (82-185) 07/14/19 11:50 Complement C4 28 mg/dL (15-53) 07/14/19 11:50 Hepatitis A IgM Ab Non-reactive (NonReactive) 07/12/19 17:49 Hep Bs Antigen Non-reactive (Negative) 07/14/19 11:50 Hep B Core IgM Ab Non-reactive (NonReactive) 07/12/19 17:49 Hepatitis C Antibody Non-reactive (NonReactive) 07/14/19 11:50 HIV-1 Antibody See scanned result 07/14/19 11:50 HIV-2 Ab (Immunoblot) See scanned result 07/14/19 11:50 Schistocytes Smear Rare 07/18/19 05:40 Active Medications - Current Medications Current Medications: Generic Name Dose Route Start Last Admin Trade Name Freq PRN Reason Stop Dose Admin Acetaminophen 650 mg 07/20/19 16:56 07/22/19 01:58 Tylenol FEEDTUBE 650 mg Q6H PRN Administration Fever >101 Albuterol 2.5 mg 07/14/19 04:54 07/16/19 13:42 Proventil IH 2.5 mg Q4HRT PRN Administration Shortness Of Breath Amlodipine Besylate 10 mg 07/23/19 11:00 Amlodipine PO QDAY TERRELL Lipase/Protease/Amylase 1 each 07/18/19 13:20 Pancreaze 10,500 Unit FEEDTUBE PRN PRN For Clogged Feeding Tube Clonidine HCl 0.1 mg 07/23/19 11:00 Catapres PO Q12HR TERRELL Epoetin Barney 10,000 unit 07/14/19 10:13 07/18/19 22:04 Procrit IV 10,000 unit CHEMA PRN Administration DIALYSIS Haloperidol Lactate 5 mg 07/12/19 21:35 07/12/19 21:09 Haldol IV 5 mg Q1H PRN Administration Unrespon. to mult. doses BZD's Hydralazine HCl 10 mg 07/23/19 10:46 Apresoline IV Q4HR PRN BP >160/100 Sodium Chloride 100 mls @ 999 mls/hr 07/16/19 12:11 Nacl 0.9% IV CHEMA PRN Hypotension Vasopressin 20 unit/ Sodium 101 mls @ 9.09 mls/hr 07/17/19 15:00 Chloride IV TITR TERRELL Protocol 0.03 UNITS/MIN Metronidazole 500 mg in 100 mls @ 100 mls/hr 07/17/19 17:00 07/23/19 05:51 Flagyl 500 Mg/100 Ml IV 100 mls/hr Q8HR TERRELL Administration Protocol Cefepime HCl 1 gm in 100 mls @ 200 mls/hr 07/17/19 17:20 07/22/19 21:33 Cefepime/Ns 1 Gm/100 Ml IV 200 mls/hr Q24H TERRELL Administration Lansoprazole 30 mg 07/18/19 11:00 07/23/19 10:02 Prevacid Solutab FEEDTUBE 30 mg QDAY TERRELL Administration Scopolamine 1 each 07/23/19 11:00 Transderm-Scop TD Q3D TERRELL Simple Syrup 15 ml 07/18/19 13:20 Simple Syrup FEEDTUBE PRN PRN Hypoglycemia Simple Syrup 30 ml 07/18/19 13:20 Simple Syrup FEEDTUBE PRN PRN Hypoglycemia Sodium Bicarbonate 325 mg 07/18/19 13:20 Sodium Bicarbonate FEEDTUBE PRN PRN For Clogged Feeding Tube Thiamine HCl 100 mg 07/22/19 10:00 07/23/19 10:02 Vitamin B-1 PO 100 mg QDAY TERRELL Administration Nutrition/Malnutrition Assess - Dietary Evaluation Nutrition/Malnutrition Findings: Nutrition Notes Start: 07/18/19 12:09 Freq: Status: Active Protocol: Document 07/21/19 09:20 LP (Rec: 07/21/19 09:24 LP [id number]) Nutrition Notes Initial or Follow up Reassessment Current Diagnosis Acute Kidney Injury, Hypertension,Heart Failure, Respiratory Failure Other Pertinent Diagnosis on HD , metabolic acidosis, pnuemonia Current Diet Nepro at 41ml/hr Labs/Tests K 3.3 BUN 74 Cr 4.3 BG 127 Pertinent Medications Reviewed Height 5 ft 10 in Weight 101.6 kg [place] Body Weight (kg) 75.45 BMI 32.1 Subjective/Other Information Pt tolerating Nepro at 41ml/hr . Pt remains on vent. Percent of energy/protein needs met: 100%/53% Burn Absent Trauma Absent GI Symptoms None Difficulty In Swallowing,Chewing Current % PO Negligible Minimum of two criteria Yes Energy Intake (severe) < or equal to 50% Estimated Energy Requirement > or equal to 5 days Muscle Mass Mild Depletion (non-severe) Fluid Accumulation Moderate to Severe (severe) Reduced Supervisor Pipe Finishing Strength Measurably Reduced (severe) #2 Nutrition Diagnosis Malnutrition Diagnosis Progress(for reassessment Continues documentation) #1 Nutrition Diagnosis Inadequate oral intake Diagnosis Progress(for reassessment Continues documentation) Is patient on ventilator? Yes Is Patient Ambulatory and/or Out of Bed No REE-([facility]-confined to bed) 2268.180 Kcal/Kg value to use for calculation 17 Approximate Energy Requirements Using 1727 kcal/Kg Calculation Used for Recommendations Kcal/kg Additional Notes Protein needs: 150 g (> 2 g/ kgIBW) Fluid needs: 1000 - 1500 ml ( on HD/ Anuric) Nutrition Intervention Change Diet Order: TF Nutrition Support: Nepro 1.8 at 41 ml/hr. Water flush of 130 ml q4h. Kcal 1,771 Protein (gm) 80 Fluid (mL) 715 Goal #1 Meet at least 75% of protein and energy needs Anticipated Discharge Needs: unble to determine at this time Follow-Up By: 07/24/19 Additional Comments Follow for stable TF tolerance
[2019-07-23] MEDS: hydrALAZINE 20 MG/1 ML INJ IV PRN (10:59)
[2019-07-23] MEDS: amLODIPine 10 MG TAB PO SCH (11:02)
[2019-07-23] MEDS: SCOPOLAMINE TRANSDERMAL PATCH 72 HR TD SCH (11:02)
[2019-07-23] MEDS: cloNIDine 0.1 MG TAB PO SCH ×2 (11:03→21:32)
--- NOTE | 2019-07-23 12:36 | Consultation ---
History of Present Illness Consult date: 07/23/19 Reason for Consult: Unresponsivness History of present illness: 48-year-old man with a history of being deaf (writes to communicate) HTN, Systolic CHF(EF 20%), anxiety, depression COPD and GERD who presented to [facility] ED with severe SOB. EMS found patient to have a pulse oximetry of 80% on room air, improved to 92% on 2 L of supplemental oxygen. Patient was confused and provided limited history. Patient refused BiPAP. Patient given 40 mg of Lasix IV and and EMS gave 40mg iv lasix prior to arrival. Patient was found to have left lower lobe pneumonia, complicated by acute respiratory failure, severe Uremia, hyponatremia, hyperkalemia, metabolic acidosis. Patient admitted to medical floor for medical stabilization and treatment due to high risk for cardiopulmonary and renal decompensation. Nephrology team consulted in ED for urgent dialysis. Patient initiated on pneumonia protocol with IV antibiotic therapy. Patient treated with calcium gluconate and Kayexalate for hyperkalemia in ED. EKG showed no changes. Patient mental status so poor he had to be put in restraints to prevent for pulling and removing O2. Next day, patient remained confused, so He went down for CT head and he must've removed O2 mask while in CT scanner or had a fatal cardiac arrhythmia which he was experiencing NSVT/aflutter with RVR the night before. This led to Cardiac arrest. ED physician was the first to respond and saw Asystole on the monitor, ACLS done . He was a difficult Intubation as he had bleeding in the Endotracheal area due to Eliquis which was started on 07/16/2019. He was intubated by ED physician. Pulse was restored and he was sent to the ICU, where he had another Cardiac arrest with PEA, ACLS done again and pulse restored. Overnight he was posturing. He is comatose without any sedative. * pCXR showed bilateral pleural effusion with significant pulmonary congestion. EKG showed no ST elevation. * * Initial Labs: WBC 14.7, hgb 9.7, plt 124, Na 125, k 5.5, co2 13, BUN 70, Cr 8.8 * * During pt. stay in hospital he was evaluated by Cardiology ,Pulmonary, ID He is currently on CPAP , open eyes spontaneously and or to pain stimuli , he does not follow command , he is at time withdraw his left arm with significant weakness right side , EEG done yesterday is remarkable for diffuse slowing in 3-4 HZ with no sign of seizure is noted Past History Past Medical History: COPD, heart failure, hypertension, other (See HPI) Past Surgical History: No surgical history, Other (Reviewed) Social history: single. denies: smoking, alcohol abuse, prescription drug abuse Family history: diabetes, hypertension Medications and Allergies Allergies Allergy/AdvReac Type Severity Reaction Status Date / Time No Known Allergies Allergy Verified 07/01/19 11:20 Home Medications Medication Instructions Recorded Confirmed Last Taken Type Magnesium Oxide 400 mg PO BIDAC #60 tablet 12/07/16 07/13/19 1 Day Ago Rx ~09/16/17 Thiamine [Vitamin B-1] 100 mg PO QDAY #30 tablet 12/07/16 07/13/19 2 Days Ago Rx ~09/14/17 100 mg Lisinopril [Zestril] 20 mg PO DAILY #30 tablet 09/18/17 07/13/19 Unknown Rx Pantoprazole [Protonix TAB] 40 mg PO BID #60 tablet 09/18/17 07/13/19 Unknown Rx Aspirin [Aspirin BABY CHEW TAB] 81 mg PO QDAY #30 tab.chew 07/05/19 07/13/19 Unknown Rx Furosemide [Lasix TAB] 40 mg PO BID #60 tablet 07/05/19 07/13/19 Unknown Rx Nitroglycerin [Nitrostat] 0.4 mg SL .Q5MIN PRN #10 tablet 07/05/19 07/13/19 Unknown Rx Spironolactone [Aldactone] 12.5 mg PO QDAY #30 tablet 07/05/19 07/13/19 Unknown Rx carvediloL [Coreg] 6.25 mg PO BID #60 tablet 07/05/19 07/13/19 Unknown Rx lisinopriL [Zestril TAB] 20 mg PO QDAY #30 tablet 07/05/19 07/13/19 Unknown Rx Active Meds: Active Medications Acetaminophen (Tylenol) 650 mg FEEDTUBE Q6H PRN PRN Reason: Fever >101 Last Admin: 07/22/19 01:58 Dose: 650 mg Documented by: Albuterol (Proventil) 2.5 mg IH Q4HRT PRN PRN Reason: Shortness Of Breath Last Admin: 07/16/19 13:42 Dose: 2.5 mg Documented by: Amlodipine Besylate (Amlodipine) 10 mg PO QDAY [facility] Last Admin: 07/23/19 11:02 Dose: 10 mg Documented by: Lipase/Protease/Amylase (Pancreaze Dr 10,500 Unit) 1 each FEEDTUBE PRN PRN PRN Reason: For Clogged Feeding Tube Clonidine HCl (Catapres) 0.1 mg PO Q12HR [facility] Last Admin: 07/23/19 11:03 Dose: 0.1 mg Documented by: Epoetin Barney (Procrit) 10,000 unit IV CHEMA PRN PRN Reason: DIALYSIS Last Admin: 07/18/19 22:04 Dose: 10,000 unit Documented by: Haloperidol Lactate (Haldol) 5 mg IV Q1H PRN PRN Reason: Unrespon. to mult. doses BZD's Last Admin: 07/12/19 21:09 Dose: 5 mg Documented by: Hydralazine HCl (Apresoline) 10 mg IV Q4HR PRN PRN Reason: BP >160/100 Last Admin: 07/23/19 10:59 Dose: 10 mg Documented by: Sodium Chloride (Nacl 0.9%) 100 mls @ 999 mls/hr IV CHEMA PRN PRN Reason: Hypotension Vasopressin 20 unit/ Sodium (Chloride) 101 mls @ 9.09 mls/hr IV TITR TERRELL; Protocol Metronidazole (Flagyl 500 Mg/100 Ml) 500 mg in 100 mls @ 100 mls/hr IV Q8HR [facility]; Protocol Last Admin: 07/23/19 05:51 Dose: 100 mls/hr Documented by: Cefepime HCl (Cefepime/Ns 1 Gm/100 Ml) 1 gm in 100 mls @ 200 mls/hr IV Q24H [facility] Last Admin: 07/22/19 21:33 Dose: 200 mls/hr Documented by: Lansoprazole (Prevacid Solutab) 30 mg FEEDTUBE QDAY [facility] Last Admin: 07/23/19 10:02 Dose: 30 mg Documented by: Scopolamine (Transderm-Scop) 1 each TD Q3D [facility] Last Admin: 07/23/19 11:02 Dose: 1 each Documented by: Simple Syrup (Simple Syrup) 15 ml FEEDTUBE PRN PRN PRN Reason: Hypoglycemia Simple Syrup (Simple Syrup) 30 ml FEEDTUBE PRN PRN PRN Reason: Hypoglycemia Sodium Bicarbonate (Sodium Bicarbonate) 325 mg FEEDTUBE PRN PRN PRN Reason: For Clogged Feeding Tube Thiamine HCl (Vitamin B-1) 100 mg PO QDAY [facility] Last Admin: 07/23/19 10:02 Dose: 100 mg Documented by: Review of Systems ROS unobtainable: due to mental status Physical Examination - Vital Signs Vital Signs: Vital Signs Pulse 125 H 07/12/19 14:35 - Constitutional General appearance: comfortable - EENT EENT: Present: PERRL, mucous membranes moist - Respiratory Respiratory: Present: lungs clear, rales, rhonchi - Cardiovascular Cardiovascular: Present: regular rate, normal S1, normal S2 Extremities: Present: no peripheral edema bilatateraly, no clubbing, cyanosis - Gastrointestinal Gastrointestinal: Present: normoactive bowel sounds - Integumentary Integumentary: Present: normal - Neurologic Cranial nerve examination: PERRL, EOMI Speech examination: other (intubated, open eyes to sternal rub not follow command not tracking with his eyes,pupils reactive ,EOMI,Corneal intact ,gag intact,breathing spont.) Detailed motor examination: other (withdraw to pain stimuli left arm , no movment otherwise , planter is equivical) Detailed sensory examination: other (slight withdrwal to pain stimuli) Reflexes: 1+: ankle, bicep, knee, tricep Results - Laboratory Findings CBC and BMP: 07/22/19 06:00 07/23/19 05:30 Abnormal Lab Findings: Abnormal Labs 07/12/19 07/12/19 07/12/19 14:46 15:08 15:08 WBC 14.7 H RBC 2.97 L Hgb 9.7 L Hct 29.0 L MCV 98 H MCH 33 H RDW 19.8 H Plt Count 124 L Seg Neuts % (Manual) 91.0 H Lymphocytes % (Manual) 2.0 L Nucleated RBC % 1.0 H Seg Neutrophils # Man 13.4 H Lymphocytes # (Manual) 0.3 L PT 19.8 H INR 1.65 H APTT 47.8 H ABG pH ABG pO2 ABG HCO3 ABG O2 Saturation ABG Base Excess ABG Hemoglobin Oxyhemoglobin Sodium Potassium Chloride Carbon Dioxide BUN Creatinine Glucose POC Glucose 110 H Calcium Phosphorus Magnesium Iron TIBC Ferritin Total Bilirubin Direct Bilirubin AST Alkaline Phosphatase Lactate Dehydrogenase Troponin T NT-Pro-B Natriuret Pep Total Protein Albumin LDL Cholesterol Direct Vitamin B12 Folate Urine WBC (Auto) Urine Creatinine Urine Total Protein Fluid Glucose Fluid Total Protein 07/12/19 07/12/19 07/12/19 15:08 15:08 15:08 WBC RBC Hgb Hct MCV MCH RDW Plt Count Seg Neuts % (Manual) Lymphocytes % (Manual) Nucleated RBC % Seg Neutrophils # Man Lymphocytes # (Manual) PT INR APTT ABG pH ABG pO2 ABG HCO3 ABG O2 Saturation ABG Base Excess ABG Hemoglobin Oxyhemoglobin Sodium 125 L Potassium 5.5 H Chloride 84.9 L Carbon Dioxide 13 L BUN 70 H Creatinine 8.8 H Glucose POC Glucose Calcium 8.0 L Phosphorus Magnesium 1.30 L Iron TIBC Ferritin Total Bilirubin 1.30 H Direct Bilirubin 0.9 H AST 53 H Alkaline Phosphatase 208 H Lactate Dehydrogenase Troponin T 0.192 H* NT-Pro-B Natriuret Pep > 26777 H Total Protein Albumin 3.3 L LDL Cholesterol Direct 40 L Vitamin B12 Folate Urine WBC (Auto) Urine Creatinine Urine Total Protein Fluid Glucose Fluid Total Protein 07/12/19 07/13/19 07/13/19 17:04 01:32 01:32 WBC RBC Hgb Hct MCV MCH RDW Plt Count Seg Neuts % (Manual) Lymphocytes % (Manual) Nucleated RBC % Seg Neutrophils # Man Lymphocytes # (Manual) PT INR APTT ABG pH ABG pO2 ABG HCO3 ABG O2 Saturation ABG Base Excess ABG Hemoglobin Oxyhemoglobin Sodium 133 L D Potassium 5.3 H Chloride 90.8 L Carbon Dioxide 20 L D BUN 48 H Creatinine 6.2 H Glucose 105 H POC Glucose Calcium 8.2 L Phosphorus 4.90 H Magnesium 1.50 L Iron TIBC Ferritin Total Bilirubin Direct Bilirubin AST Alkaline Phosphatase Lactate Dehydrogenase Troponin T 0.188 H* NT-Pro-B Natriuret Pep Total Protein Albumin LDL Cholesterol Direct Vitamin B12 Folate Urine WBC (Auto) Urine Creatinine Urine Total Protein Fluid Glucose Fluid Total Protein 07/13/19 07/13/19 07/13/19 04:28 04:28 16:16 WBC 15.9 H RBC 3.10 L Hgb 10.2 L Hct 30.6 L MCV 99 H MCH 33 H RDW 19.4 H Plt Count 135 L Seg Neuts % (Manual) Lymphocytes % (Manual) 4.0 L Nucleated RBC % Seg Neutrophils # Man 9.9 H Lymphocytes # (Manual) 0.6 L PT INR APTT ABG pH ABG pO2 ABG HCO3 ABG O2 Saturation ABG Base Excess ABG Hemoglobin Oxyhemoglobin Sodium 132 L 134 L Potassium 5.1 H Chloride 90.3 L 92.2 L Carbon Dioxide 17 L 20 L BUN 47 H 55 H Creatinine 6.0 H 6.5 H Glucose 124 H POC Glucose Calcium 8.2 L 7.9 L Phosphorus Magnesium Iron TIBC Ferritin Total Bilirubin Direct Bilirubin AST Alkaline Phosphatase Lactate Dehydrogenase Troponin T NT-Pro-B Natriuret Pep Total Protein Albumin LDL Cholesterol Direct Vitamin B12 Folate Urine WBC (Auto) Urine Creatinine Urine Total Protein Fluid Glucose Fluid Total Protein 07/14/19 07/14/19 07/14/19 07:16 07:16 07:16 WBC RBC 2.65 L Hgb 8.6 L Hct 25.4 L MCV 96 H MCH 33 H RDW 19.7 H Plt Count 114 L Seg Neuts % (Manual) 89.0 H Lymphocytes % (Manual) 4.0 L Nucleated RBC % Seg Neutrophils # Man Lymphocytes # (Manual) 0.3 L PT INR APTT ABG pH ABG pO2 ABG HCO3 ABG O2 Saturation ABG Base Excess ABG Hemoglobin Oxyhemoglobin Sodium 133 L Potassium Chloride 93.0 L Carbon Dioxide 18 L BUN 61 H Creatinine 7.3 H Glucose 113 H POC Glucose Calcium 7.7 L Phosphorus Magnesium Iron TIBC Ferritin Total Bilirubin Direct Bilirubin AST Alkaline Phosphatase Lactate Dehydrogenase 210 H Troponin T NT-Pro-B Natriuret Pep Total Protein Albumin LDL Cholesterol Direct Vitamin B12 Folate Urine WBC (Auto) Urine Creatinine Urine Total Protein Fluid Glucose Fluid Total Protein 07/14/19 07/14/19 07/14/19 10:45 16:40 17:28 WBC RBC Hgb Hct MCV MCH RDW Plt Count Seg Neuts % (Manual) Lymphocytes % (Manual) Nucleated RBC % Seg Neutrophils # Man Lymphocytes # (Manual) PT INR APTT ABG pH ABG pO2 ABG HCO3 ABG O2 Saturation ABG Base Excess ABG Hemoglobin Oxyhemoglobin Sodium Potassium Chloride Carbon Dioxide BUN Creatinine Glucose POC Glucose Calcium Phosphorus Magnesium Iron TIBC Ferritin Total Bilirubin Direct Bilirubin AST Alkaline Phosphatase Lactate Dehydrogenase Troponin T NT-Pro-B Natriuret Pep Total Protein Albumin LDL Cholesterol Direct Vitamin B12 Folate Urine WBC (Auto) Urine Creatinine 104.2 H 106.2 H Urine Total Protein 173 H Fluid Glucose 93 H Fluid Total Protein 4.7 L 07/14/19 07/14/19 07/15/19 17:28 20:43 06:30 WBC RBC 3.06 L Hgb 9.9 L Hct 29.7 L MCV 97 H MCH 33 H RDW 19.5 H Plt Count 101 L Seg Neuts % (Manual) Lymphocytes % (Manual) Nucleated RBC % Seg Neutrophils # Man Lymphocytes # (Manual) PT INR APTT ABG pH ABG pO2 ABG HCO3 ABG O2 Saturation ABG Base Excess ABG Hemoglobin Oxyhemoglobin Sodium Potassium Chloride Carbon Dioxide BUN Creatinine Glucose POC Glucose 120 H Calcium Phosphorus Magnesium Iron TIBC Ferritin Total Bilirubin Direct Bilirubin AST Alkaline Phosphatase Lactate Dehydrogenase Troponin T NT-Pro-B Natriuret Pep Total Protein Albumin LDL Cholesterol Direct Vitamin B12 Folate Urine WBC (Auto) 31.0 H Urine Creatinine Urine Total Protein Fluid Glucose Fluid Total Protein 07/15/19 07/15/19 07/15/19 06:30 06:30 06:30 WBC RBC Hgb Hct MCV MCH RDW Plt Count Seg Neuts % (Manual) Lymphocytes % (Manual) Nucleated RBC % Seg Neutrophils # Man Lymphocytes # (Manual) PT INR APTT ABG pH ABG pO2 ABG HCO3 ABG O2 Saturation ABG Base Excess ABG Hemoglobin Oxyhemoglobin Sodium Potassium Chloride 95.2 L Carbon Dioxide BUN 42 H Creatinine 4.9 H Glucose POC Glucose Calcium Phosphorus Magnesium Iron 15 L TIBC 186 L Ferritin 428.2 H Total Bilirubin Direct Bilirubin AST 50 H Alkaline Phosphatase 191 H Lactate Dehydrogenase Troponin T NT-Pro-B Natriuret Pep Total Protein Albumin 3.1 L LDL Cholesterol Direct Vitamin B12 Folate Urine WBC (Auto) Urine Creatinine Urine Total Protein Fluid Glucose Fluid Total Protein 07/15/19 07/16/19 07/16/19 12:42 06:19 21:34 WBC RBC Hgb Hct MCV MCH RDW Plt Count Seg Neuts % (Manual) Lymphocytes % (Manual) Nucleated RBC % Seg Neutrophils # Man Lymphocytes # (Manual) PT INR APTT ABG pH ABG pO2 ABG HCO3 ABG O2 Saturation ABG Base Excess ABG Hemoglobin Oxyhemoglobin Sodium 134 L 134 L Potassium Chloride 92.9 L 93.4 L Carbon Dioxide 20 L BUN 55 H 40 H Creatinine 5.6 H 4.4 H Glucose POC Glucose 140 H Calcium Phosphorus Magnesium Iron TIBC Ferritin Total Bilirubin Direct Bilirubin AST Alkaline Phosphatase Lactate Dehydrogenase Troponin T NT-Pro-B Natriuret Pep Total Protein Albumin LDL Cholesterol Direct Vitamin B12 Folate Urine WBC (Auto) Urine Creatinine Urine Total Protein Fluid Glucose Fluid Total Protein 07/17/19 07/17/19 07/17/19 05:27 12:10 12:52 WBC RBC Hgb Hct MCV MCH RDW Plt Count Seg Neuts % (Manual) Lymphocytes % (Manual) Nucleated RBC % Seg Neutrophils # Man Lymphocytes # (Manual) PT INR APTT ABG pH ABG pO2 ABG HCO3 ABG O2 Saturation ABG Base Excess ABG Hemoglobin Oxyhemoglobin Sodium 136 L Potassium Chloride 93.6 L Carbon Dioxide BUN 43 H Creatinine 4.8 H Glucose POC Glucose 122 H 122 H Calcium Phosphorus Magnesium Iron TIBC Ferritin Total Bilirubin Direct Bilirubin AST Alkaline Phosphatase Lactate Dehydrogenase Troponin T NT-Pro-B Natriuret Pep Total Protein Albumin LDL Cholesterol Direct Vitamin B12 Folate Urine WBC (Auto) Urine Creatinine Urine Total Protein Fluid Glucose Fluid Total Protein 07/17/19 07/18/19 07/18/19 13:50 04:20 05:40 WBC RBC Hgb Hct MCV MCH RDW Plt Count Seg Neuts % (Manual) Lymphocytes % (Manual) Nucleated RBC % Seg Neutrophils # Man Lymphocytes # (Manual) PT INR APTT ABG pH 7.262 L ABG pO2 195.5 H 238.9 H ABG HCO3 ABG O2 Saturation 99.1 H 99.4 H ABG Base Excess -2.9 L ABG Hemoglobin 8.6 L 10.9 L Oxyhemoglobin Sodium Potassium Chloride 94.5 L Carbon Dioxide BUN 61 H Creatinine 5.6 H Glucose 111 H POC Glucose Calcium Phosphorus 4.70 H Magnesium Iron TIBC Ferritin Total Bilirubin Direct Bilirubin AST Alkaline Phosphatase Lactate Dehydrogenase 294 H Troponin T NT-Pro-B Natriuret Pep Total Protein Albumin LDL Cholesterol Direct Vitamin B12 Folate Urine WBC (Auto) Urine Creatinine Urine Total Protein Fluid Glucose Fluid Total Protein 07/18/19 07/18/19 07/18/19 05:40 05:40 10:30 WBC 22.7 H RBC 2.64 L Hgb 8.2 L Hct 24.9 L MCV 95 H MCH RDW 19.7 H Plt Count 94 L Seg Neuts % (Manual) Lymphocytes % (Manual) Nucleated RBC % Seg Neutrophils # Man Lymphocytes # (Manual) PT INR APTT ABG pH 7.457 H ABG pO2 ABG HCO3 26.3 H ABG O2 Saturation ABG Base Excess ABG Hemoglobin 7.8 L Oxyhemoglobin 94.6 L Sodium Potassium Chloride Carbon Dioxide BUN Creatinine Glucose POC Glucose Calcium Phosphorus Magnesium Iron TIBC Ferritin Total Bilirubin Direct Bilirubin 0.7 H AST 94 H Alkaline Phosphatase 159 H Lactate Dehydrogenase Troponin T NT-Pro-B Natriuret Pep Total Protein 5.6 L D Albumin 2.5 L LDL Cholesterol Direct Vitamin B12 Folate Urine WBC (Auto) Urine Creatinine Urine Total Protein Fluid Glucose Fluid Total Protein 07/18/19 07/19/19 07/19/19 Unknown 05:15 05:15 WBC RBC Hgb Hct MCV MCH RDW Plt Count Seg Neuts % (Manual) Lymphocytes % (Manual) Nucleated RBC % Seg Neutrophils # Man Lymphocytes # (Manual) PT INR APTT ABG pH ABG pO2 ABG HCO3 ABG O2 Saturation ABG Base Excess ABG Hemoglobin 11.6 L Oxyhemoglobin 94.3 L Sodium 133 L Potassium Chloride 94.9 L Carbon Dioxide BUN 43 H Creatinine 4.0 H Glucose 118 H POC Glucose Calcium Phosphorus Magnesium 0.20 L* Iron TIBC Ferritin Total Bilirubin Direct Bilirubin AST Alkaline Phosphatase Lactate Dehydrogenase Troponin T NT-Pro-B Natriuret Pep Total Protein Albumin LDL Cholesterol Direct Vitamin B12 Folate Urine WBC (Auto) Urine Creatinine Urine Total Protein Fluid Glucose Fluid Total Protein 07/19/19 07/19/19 07/20/19 05:15 06:00 06:15 WBC 14.6 H RBC 2.57 L Hgb 8.2 L Hct 24.3 L MCV 95 H MCH RDW 19.5 H Plt Count 101 L Seg Neuts % (Manual) Lymphocytes % (Manual) Nucleated RBC % Seg Neutrophils # Man Lymphocytes # (Manual) PT INR APTT ABG pH ABG pO2 91.2 H ABG HCO3 27.5 H ABG O2 Saturation ABG Base Excess ABG Hemoglobin 8.3 L Oxyhemoglobin Sodium Potassium Chloride Carbon Dioxide BUN 61 H Creatinine 4.6 H Glucose 117 H POC Glucose Calcium Phosphorus Magnesium Iron TIBC Ferritin Total Bilirubin Direct Bilirubin AST Alkaline Phosphatase Lactate Dehydrogenase Troponin T NT-Pro-B Natriuret Pep Total Protein Albumin LDL Cholesterol Direct Vitamin B12 Folate Urine WBC (Auto) Urine Creatinine Urine Total Protein Fluid Glucose Fluid Total Protein 07/21/19 07/21/19 07/21/19 05:30 06:15 06:15 WBC 11.8 H RBC 2.45 L Hgb 7.9 L Hct 23.5 L MCV 96 H MCH RDW 19.4 H Plt Count Seg Neuts % (Manual) Lymphocytes % (Manual) Nucleated RBC % Seg Neutrophils # Man Lymphocytes # (Manual) PT INR APTT ABG pH ABG pO2 104.5 H ABG HCO3 27.9 H ABG O2 Saturation ABG Base Excess 3.3 H ABG Hemoglobin 8.2 L Oxyhemoglobin Sodium Potassium 3.3 L Chloride Carbon Dioxide BUN 74 H Creatinine 4.3 H Glucose 127 H POC Glucose Calcium Phosphorus Magnesium Iron TIBC Ferritin Total Bilirubin Direct Bilirubin AST Alkaline Phosphatase Lactate Dehydrogenase Troponin T NT-Pro-B Natriuret Pep Total Protein Albumin LDL Cholesterol Direct Vitamin B12 Folate Urine WBC (Auto) Urine Creatinine Urine Total Protein Fluid Glucose Fluid Total Protein 07/21/19 07/21/19 07/21/19 08:00 08:00 17:51 WBC RBC Hgb Hct MCV MCH RDW Plt Count Seg Neuts % (Manual) Lymphocytes % (Manual) Nucleated RBC % Seg Neutrophils # Man Lymphocytes # (Manual) PT INR APTT ABG pH ABG pO2 ABG HCO3 ABG O2 Saturation ABG Base Excess ABG Hemoglobin Oxyhemoglobin Sodium Potassium 3.2 L Chloride Carbon Dioxide BUN Creatinine Glucose POC Glucose Calcium Phosphorus Magnesium Iron TIBC Ferritin Total Bilirubin Direct Bilirubin AST Alkaline Phosphatase Lactate Dehydrogenase Troponin T NT-Pro-B Natriuret Pep Total Protein Albumin LDL Cholesterol Direct Vitamin B12 960.4 H Folate 6.18 L Urine WBC (Auto) Urine Creatinine Urine Total Protein Fluid Glucose Fluid Total Protein 07/22/19 07/22/19 07/22/19 03:40 06:00 21:45 WBC 12.6 H RBC 2.54 L Hgb 7.8 L Hct 24.2 L MCV 95 H MCH RDW 19.7 H Plt Count Seg Neuts % (Manual) Lymphocytes % (Manual) Nucleated RBC % Seg Neutrophils # Man Lymphocytes # (Manual) PT INR APTT ABG pH ABG pO2 99.4 H ABG HCO3 27.3 H ABG O2 Saturation ABG Base Excess ABG Hemoglobin 9.2 L Oxyhemoglobin Sodium Potassium 3.1 L Chloride Carbon Dioxide BUN 75 H Creatinine 2.9 H Glucose 123 H POC Glucose Calcium Phosphorus Magnesium Iron TIBC Ferritin Total Bilirubin Direct Bilirubin AST Alkaline Phosphatase Lactate Dehydrogenase Troponin T NT-Pro-B Natriuret Pep Total Protein Albumin LDL Cholesterol Direct Vitamin B12 Folate Urine WBC (Auto) Urine Creatinine Urine Total Protein Fluid Glucose Fluid Total Protein 07/23/19 05:30 WBC RBC Hgb Hct MCV MCH RDW Plt Count Seg Neuts % (Manual) Lymphocytes % (Manual) Nucleated RBC % Seg Neutrophils # Man Lymphocytes # (Manual) PT INR APTT ABG pH ABG pO2 ABG HCO3 ABG O2 Saturation ABG Base Excess ABG Hemoglobin Oxyhemoglobin Sodium Potassium 3.1 L Chloride Carbon Dioxide BUN 80 H Creatinine 2.6 H Glucose 112 H POC Glucose Calcium Phosphorus Magnesium Iron TIBC Ferritin Total Bilirubin Direct Bilirubin AST Alkaline Phosphatase Lactate Dehydrogenase Troponin T NT-Pro-B Natriuret Pep Total Protein Albumin LDL Cholesterol Direct Vitamin B12 Folate Urine WBC (Auto) Urine Creatinine Urine Total Protein Fluid Glucose Fluid Total Protein Assessment and Plan 1- Asked to see pt. due to lack of respond after X 2 in hospital cardiopulmonary arrest in 07/18 , he is off sedation Exam today is remarkable for open eyes to pain stimuli he does not follow comma nd or track with his eyes , exam showed slight left arm movment to pain stimuli and at time spontaneously finding is most likley consistent with severe Anoxic brain injury with resultant significant weakness right side > left side. with chance for complet recovery is very unlikley 2-Acute on chronic systolic heart failure decompensation leading to respiratory failure: treated with Ultrafiltration via HD due to severe renal failure, ultrafiltration removed 4 liters 3-Acute hypoxic respiratory failure, refused non-invasive ventilation; theref ore, treat with other means, patient noncompliance with wearing O2, funeral planning counselor that this will led to his demise, which most likely led to Cardiac arrest 4-Severe ARF, treated with emergent HD. 5-LLL pneumonia: treat with IV abx, evaluated by ID [id number], Acute metabolic encephalopathy related underlying uremia initially but pt. had X 2 episodes of cardiopulmonary arrest with him not waking up since then CT head unrevealing, history of alcohol abuse 7-Anemia appears AOCD due to renal dysfunction: continue to monitor cbc 8-Thrombocytopenia: 9-Morbid Obesity, bmi 44.1 10-Language Barrier/Deafness: communicates via paper initially 11-AFlutter with RVR on 07/16/2019: treat with coreg and Eliquis initiated which was stopped after cardiac arrest. PLAN 1- Recommend MRI brain if possible for better assessment of brain injury 2- Continue with current managment as per ICU team 3- Over all prognosis is poor with the chance for complet recovery is unlikley . 4- DVT precaution will follow along
--- NOTE | 2019-07-23 13:41 | Progress Note ---
Assessment and Plan Chronic CHF Transient atrial flutter/SVT reverted to sinus rhythm spontaneously initiated on eliquis for oral anticoagulation; currently on hold Acute renal failure s/p urgent dialysis aldactone and zestril held by nephrology s/p PEA arrest intubated on the vent Ascites s/p paracentesis Anemia Hx of nonischemic CMP EF 20/25% by echo 10/2016 no ischemia by MPI at [facility] in 2016 Hypertension Alcohol abuse Noncompliant with medications and outpatient cardiac follow up Supportive cardiac management. Subjective Date of service: 07/23/19 Principal diagnosis: anemia Interval history: Patient remains intubated, unresponsive on the vent. Objective Vital Signs Temp Pulse Pulse Resp BP Pulse Ox 07/23/19 13:00 102 H 23 130/67 100 07/23/19 12:00 98.3 F 105 H 110 H 26 H 153/74 98 07/23/19 11:03 102 H 147/77 07/23/19 11:02 97 H 147/77 07/23/19 11:00 99 H 22 147/77 99 07/23/19 10:59 97 H 180/97 07/23/19 10:00 109 H 25 H 158/83 100 07/23/19 09:00 98 H 22 145/74 99 07/23/19 08:37 99 H 21 152/82 100 07/23/19 08:32 97 H 152/82 100 07/23/19 08:00 98.6 F 86 88 20 139/58 98 07/23/19 07:00 94 H 20 148/73 99 07/23/19 06:00 98 H 19 162/88 99 07/23/19 05:00 99 H 19 172/82 98 07/23/19 04:54 89 159/82 99 07/23/19 04:00 99.3 F 90 88 19 144/76 98 07/23/19 03:00 103 H 22 149/85 99 07/23/19 02:00 91 H 20 142/72 98 07/23/19 01:00 107 H 22 142/82 98 07/23/19 00:10 98 H 142/72 99 07/23/19 00:00 98.8 F 102 H 102 H 25 H 166/90 99 07/22/19 23:00 101 H 18 142/78 98 07/22/19 22:00 98 H 22 157/79 98 07/22/19 21:00 104 H 9 L 143/79 98 07/22/19 20:11 99 H 157/84 97 07/22/19 20:00 98.5 F 108 H 108 H 28 H 157/84 99 07/22/19 19:00 98.8 F 101 H 27 H 137/77 98 07/22/19 18:29 105 H 167/96 100 07/22/19 18:00 108 H 19 159/82 98 07/22/19 17:00 105 H 30 H 134/66 98 07/22/19 16:00 100.1 F H 94 H 103 H 23 143/73 97 07/22/19 15:46 101 H 143/73 98 07/22/19 15:00 104 H 12 147/86 98 07/22/19 14:00 108 H 24 137/83 98 - Physical Examination General: Other (unresponsive on the vent) Cardiac: Positive: Reg Rate and Rhythm - Labs and Meds Comprehensive Metabolic Panel 07/22/19 07/23/19 Range/Units 21:45 05:30 Sodium 142 138 (137-145) mmol/L Potassium 3.1 L 3.1 L (3.6-5.0) mmol/L Chloride 102.0 99.7 (98-107) mmol/L Carbon Dioxide 26 23 (22-30) mmol/L BUN 75 H 80 H (9-20) mg/dL Creatinine 2.9 H 2.6 H (0.8-1.5) mg/dL Glucose 123 H 112 H (75-100) mg/dL Calcium 8.6 8.7 (8.4-10.2) mg/dL
--- NOTE | 2019-07-23 13:46 | Progress Note ---
Assessment and Plan Acute Kidney Injury possibly prerenal/ATN, cardiorenal syndrome, diuretics, ACEI, AIN from NSAIDs, ? underlying CKD process, no obstruction Hyperkalemia High Anion Gap Metabolic Acidosis Acute respiratory failure LLL PNA Anemia Hypomagnesemia S/p Cardiac Arrest Acute on chronic systolic CHF Questionable Anoxic Brain Injury Plan: - Renal function reviewed, SCr level was 2.6 today, yesterday's SCr level was 2.9 - No acute indication for HD today - Assess need for HD on daily basis - S/p Right femoral Vas catheter placement for STAT HD on 07/12/19 - Monitor for signs of renal recovery - Epogen dosing for anemia management - Replete potassium - Secondary GN and vasculitis work up ordered, so far negative for ANCA, SHANNA, normal complement, negative HCV, HBV, HIV, pending anti-GBM, but has rare schisto with elevated LDH, consulted hematology - Vascular surgery consulted to exchange Vas Cath to perm catheter placement - Renal US mentioned moderate ascites, but no hydronephrosis - Neuro evaluated pt, recommend MRI Brain, f/u recs - S/p US guided paracentesis with removal of 3200 ml on 07/15/19 - Renally dose medications - Renal plan d/w Dr Cohn Subjective Date of service: 07/23/19 Principal diagnosis: anemia Interval history: Pt intubated in ICU on ventilator, unresponsive, no family at bedside Objective - Vital Signs Vital signs: Vital Signs - 12hr 07/23/19 07/23/19 07/23/19 02:00 03:00 04:00 Temperature 99.3 F Pulse Rate 91 H 103 H 90 Pulse Rate [ 88 From Monitor] Respiratory 20 22 19 Rate Blood Pressure 142/72 149/85 144/76 O2 Sat by Pulse 98 99 98 Oximetry 07/23/19 07/23/19 07/23/19 04:54 05:00 06:00 Temperature Pulse Rate 89 99 H 98 H Pulse Rate [ From Monitor] Respiratory 19 19 Rate Blood Pressure 159/82 172/82 162/88 O2 Sat by Pulse 99 98 99 Oximetry 07/23/19 07/23/19 07/23/19 07:00 08:00 08:32 Temperature 98.6 F Pulse Rate 94 H 86 97 H Pulse Rate [ 88 From Monitor] Respiratory 20 20 Rate Blood Pressure 148/73 139/58 152/82 O2 Sat by Pulse 99 98 100 Oximetry 07/23/19 07/23/19 07/23/19 08:37 09:00 10:00 Temperature Pulse Rate 99 H 98 H 109 H Pulse Rate [ From Monitor] Respiratory 21 22 25 H Rate Blood Pressure 152/82 145/74 158/83 O2 Sat by Pulse 100 99 100 Oximetry 07/23/19 07/23/19 07/23/19 10:59 11:00 11:02 Temperature Pulse Rate 97 H 99 H 97 H Pulse Rate [ From Monitor] Respiratory 22 Rate Blood Pressure 180/97 147/77 147/77 O2 Sat by Pulse 99 Oximetry 07/23/19 07/23/19 07/23/19 11:03 12:00 13:00 Temperature 98.3 F Pulse Rate 102 H 105 H 102 H Pulse Rate [ 110 H From Monitor] Respiratory 26 H 23 Rate Blood Pressure 147/77 153/74 130/67 O2 Sat by Pulse 98 100 Oximetry - General Appearance General appearance: intubated EENT: ATNC Neck: no JVD Respiratory: Present: Decreased Breath Sounds (intubated) Cardiology: S1S2, other (ACCESS: Right femoral Vas Catheter) Gastrointestinal: normoactive bowel sounds (nasogastric tube intact) Neurologic: other (intubated, unresponsive) Musculoskeletal: other (1+ edema to BLE) Psychiatric: other (unable to assess) - Lab 07/22/19 06:00 07/23/19 05:30 Most recent lab results ABG pH 7.442 pH Units (7.350-7.450) 07/22/19 03:40 ABG pCO2 41.0 mm Hg 07/22/19 03:40 ABG pO2 99.4 mm Hg (80.0-90.0) H 07/22/19 03:40 ABG HCO3 27.3 mmol/L (20.0-26.0) H 07/22/19 03:40 ABG O2 Saturation 97.7 % (95.0-99.0) 07/22/19 03:40 Calcium 8.7 mg/dL (8.4-10.2) 07/23/19 05:30 Phosphorus 2.90 mg/dL (2.5-4.5) 07/20/19 06:15 Magnesium 1.70 mg/dL (1.7-2.3) 07/21/19 06:15 Urine Creatinine 106.2 mg/dL (0.1-20.0) H 07/14/19 17:28 Urine Sodium 67 mmol/L 07/14/19 17:28 Urine Total Protein 173 mg/dL (5-11.8) H 07/14/19 16:40 Medications & Allergies - Medications Allergies/Adverse Reactions: Allergies No Known Allergies Allergy (Verified 07/01/19 11:20) Home Medications: Home Medications Medication Instructions Recorded Confirmed Last Taken Type Magnesium Oxide 400 mg PO BIDAC #60 tablet 12/07/16 07/13/19 1 Day Ago Rx ~09/16/17 Thiamine [Vitamin B-1] 100 mg PO QDAY #30 tablet 12/07/16 07/13/19 2 Days Ago Rx ~09/14/17 100 mg Lisinopril [Zestril] 20 mg PO DAILY #30 tablet 09/18/17 07/13/19 Unknown Rx Pantoprazole [Protonix TAB] 40 mg PO BID #60 tablet 09/18/17 07/13/19 Unknown Rx Aspirin [Aspirin BABY CHEW TAB] 81 mg PO QDAY #30 tab.chew 07/05/19 07/13/19 Unknown Rx Furosemide [Lasix TAB] 40 mg PO BID #60 tablet 07/05/19 07/13/19 Unknown Rx Nitroglycerin [Nitrostat] 0.4 mg SL .Q5MIN PRN #10 tablet 07/05/19 07/13/19 Unknown Rx Spironolactone [Aldactone] 12.5 mg PO QDAY #30 tablet 07/05/19 07/13/19 Unknown Rx carvediloL [Coreg] 6.25 mg PO BID #60 tablet 07/05/19 07/13/19 Unknown Rx lisinopriL [Zestril TAB] 20 mg PO QDAY #30 tablet 07/05/19 07/13/19 Unknown Rx Active Medications: Generic Name Dose Route Start Last Admin Trade Name Freq PRN Reason Stop Dose Admin Acetaminophen 650 mg 07/20/19 16:56 07/22/19 01:58 Tylenol FEEDTUBE 650 mg Q6H PRN Administration Fever >101 Albuterol 2.5 mg 07/14/19 04:54 07/16/19 13:42 Proventil IH 2.5 mg Q4HRT PRN Administration Shortness Of Breath Amlodipine Besylate 10 mg 07/23/19 11:00 07/23/19 11:02 Amlodipine PO 10 mg QDAY TERRELL Administration Lipase/Protease/Amylase 1 each 07/18/19 13:20 Pancrenarinder Moeller 10,500 Unit FEEDTUBE PRN PRN For Clogged Feeding Tube Clonidine HCl 0.1 mg 07/23/19 11:00 07/23/19 11:03 Catapres PO 0.1 mg Q12HR TERRELL Administration Epoetin Barney 10,000 unit 07/14/19 10:13 07/18/19 22:04 Procrit IV 10,000 unit CHEMA PRN Administration DIALYSIS Haloperidol Lactate 5 mg 07/12/19 21:35 07/12/19 21:09 Haldol IV 5 mg Q1H PRN Administration Unrespon. to mult. doses BZD's Hydralazine HCl 10 mg 07/23/19 10:46 07/23/19 10:59 Apresoline IV 10 mg Q4HR PRN Administration BP >160/100 Sodium Chloride 100 mls @ 999 mls/hr 07/16/19 12:11 Nacl 0.9% IV CHEMA PRN Hypotension Vasopressin 20 unit/ Sodium 101 mls @ 9.09 mls/hr 07/17/19 15:00 Chloride IV TITR TERRELL Protocol 0.03 UNITS/MIN Metronidazole 500 mg in 100 mls @ 100 mls/hr 07/17/19 17:00 07/23/19 13:24 Flagyl 500 Mg/100 Ml IV 100 mls/hr Q8HR TERRELL Administration Protocol Cefepime HCl 1 gm in 100 mls @ 200 mls/hr 07/17/19 17:20 07/22/19 21:33 Cefepime/Ns 1 Gm/100 Ml IV 200 mls/hr Q24H TERRELL Administration Lansoprazole 30 mg 07/18/19 11:00 07/23/19 10:02 Prevacid Solutab FEEDTUBE 30 mg QDAY TERRELL Administration Scopolamine 1 each 07/23/19 11:00 07/23/19 11:02 Transderm-Scop TD 1 each Q3D TERRELL Administration Simple Syrup 15 ml 07/18/19 13:20 Simple Syrup FEEDTUBE PRN PRN Hypoglycemia Simple Syrup 30 ml 07/18/19 13:20 Simple Syrup FEEDTUBE PRN PRN Hypoglycemia Sodium Bicarbonate 325 mg 07/18/19 13:20 Sodium Bicarbonate FEEDTUBE PRN PRN For Clogged Feeding Tube Thiamine HCl 100 mg 07/22/19 10:00 07/23/19 10:02 Vitamin B-1 PO 100 mg QDAY TERRELL Administration
--- NOTE | 2019-07-23 15:05 | Progress Note ---
Assessment and Plan Cultures: 07/12/2019 blood culture: Negative 07/14/2019 urine culture: mixed growth 07/17/2019 tracheal aspirate: E coli A/P: 48/M with deafness, HTN, CHF, anxiety, depression, COPD was admitted to the hospital on 07/12/2019 with shortness of breath, found to have hypoxia and renal failure and was started on urgent dialysis, now with: #Shock, following PEA cardiac arrest #Bilateral multifocal pneumonia, acute respiratory failure: Possibly aspiration v/s lung contusion from CPR following cardiac arrest. Culture growing GNR. Empiric cefepime, vancomycin and Flagyl for now, anticipate stopping vancomycin soon. #Acute renal failure: Dialysis requiring. Nephrology following, evaluating for glomerulonephritis and vasculitis. Patient also has rare schistocytes in peripheral blood along with few eosinophils in urine. Renally dose abx. #CHF #Acute encephalopathy: post arrest. Recs: - Empiric renally dosed cefepime, Flagyl for now - follow up fever and WBC - possible central fevers - Poor prognosis. Will follow. Salo Morgan MD [facility] ([facility] M: [phone] O: [phone] F: [phone] Subjective Date of service: 07/23/19 Principal diagnosis: anemia Interval history: Febrile to 100.8, no changes. Persistently elevated white count. Objective - Exam Narrative Exam: Constitutional: Intubated Head, Ears, Nose: Normocephalic, atraumatic. External ears, nose normal Eyes: Conjunctivae/corneas clear Cardiovascular: S1, S2 normal. Respiratory: Good air entry, clear to auscultation bilaterally GI: Soft, non-tender; bowel sounds + Musculoskeletal: No pedal edema, no cyanosis. Skin: No rash or abscess Hem/Lymphatic: No palpable cervical or supraclavicular nodes. No lymphangitis Psych: None-responsive. Neurological: Non-responsive - Constitutional Vitals: Vital Signs Temp Pulse Resp BP Pulse Ox 98.3 F 105 H 23 137/68 94 07/23/19 12:00 07/23/19 14:00 07/23/19 14:00 07/23/19 14:00 07/23/19 14:00 Temperature -Last 24 Hours Temperature 98.3 F Temperature 98.6 F Temperature 99.3 F Temperature 99.9 F Temperature 98.8 F Temperature 98.8 F Temperature 98.5 F Temperature 98.8 F Temperature 100.1 F - Labs CBC & Chem 7: 07/22/19 06:00 07/23/19 05:30 Labs: Abnormal lab results 07/22/19 07/23/19 Range/Units 21:45 05:30 Potassium 3.1 L 3.1 L (3.6-5.0) mmol/L BUN 75 H 80 H (9-20) mg/dL Creatinine 2.9 H 2.6 H (0.8-1.5) mg/dL Glucose 123 H 112 H (75-100) mg/dL
--- NOTE | 2019-07-23 15:45 | XRay Report ---
CHEST 1 VIEW INDICATION: Short of breath. COMPARISON: 07/19/2019 FINDINGS: Support devices: The endotracheal tube and nasogastric tube remain in adequate position. Heart: Stable mild cardiomegaly. Lungs/Pleura: Mild central pulmonary venous congestion is identified. The left hemidiaphragm is obscu red by a small to medium left pleural effusion. Infiltrate or atelectasis in the left lung base canno t be excluded. Additional findings: None. IMPRESSION: Mild CHF. No overwhelming change since the exam 4 days ago. Signer Name: William Dean Jr, MD Signed: 07/23/2019 3:40 PM Workstation Name: [id number]
[2019-07-23] MEDS: CEFEPIME/NS 1 GM/100 ML 1 GM/100 ML BAG IV SCH (16:30)
[2019-07-24 04:30] LABS: ABG Base Excess 2.8 mmol/L (-2.0-3.0); ABG HCO3 27.1 mmol/L (20.0-26.0); ABG Methemoglobin 0.5 % (0.0-1.5); ABG Oxygen Saturation 98.5 % (95.0-99.0); ABG PCO2 40.3 mm Hg; ABG PH 7.446 pH Units (7.350-7.450); ABG PO2 123.1 mm Hg (80.0-90.0)
[2019-07-24] MEDS: metroNIDAZOLE/NS 500 MG/100 ML 500 MG/100 ML BAG IV SCH ×3 (06:15→22:33)
[2019-07-24 07:45] LABS: Calcium 8.7 mg/dL (8.4-10.2)
--- NOTE | 2019-07-24 09:04 | Progress Note ---
Assessment and Plan 1- Asked to see pt. due to lack of respond after X 2 in hospital cardiopulmonary arrest in 07/18 , he is off sedation Exam today is remarkable for open eyes to pain stimuli he does not follow command or track with his eyes , exam showed slight left arm movment to pain stimuli and at time spontaneously finding is most likley consistent with severe Anoxic brain injury with resultant significant weakness right side > left side. with chance for complet recovery is very unlikley 2-Acute on chronic systolic heart failure decompensation leading to respiratory failure: treated with Ultrafiltration via HD due to severe renal failure, ultrafiltration removed 4 liters 3-Acute hypoxic respiratory failure, refused non-invasive ventilation; therefore, treat with other means, patient noncompliance with wearing O2, senior counsel commercial that this will led to his demise, which most likely led to Cardiac a rrest 4-Severe ARF, treated with emergent HD. 5-LLL pneumonia: treat with IV abx, evaluated by ID [id number], Acute metabolic encephalopathy related underlying uremia initially but pt. had X 2 episodes of cardiopulmonary arrest with him not waking up since then CT head unrevealing, history of alcohol abuse 7-Anemia appears AOCD due to renal dysfunction: continue to monitor cbc 8-Thrombocytopenia: 9-Morbid Obesity, bmi 44.1 10-Language Barrier/Deafness: communicates via paper initially 11-AFlutter with RVR on 07/16/2019: treat with coreg and Eliquis initiated which was stopped after cardiac arrest. PLAN 1- Recommend MRI brain if possible for better assessment of brain injury 2- Continue with current managment as per ICU team 3- Over all prognosis is poor with the chance for complete recovery is unlikely . 4- DVT precaution will follow as needed Subjective Date of service: 07/24/19 Principal diagnosis: post anoxic brain injury Interval history: status unchanged he open eyes to pain stimuli , not track not follow command, move both upper ant to lesser extent lower to sternal rub. labs noted MRI not done Objective - Vital Sign Vital Signs - 12hr 07/23/19 07/23/19 07/23/19 21:16 21:30 21:32 Temperature Pulse Rate 99 H 133 H 106 H Pulse Rate [ From Monitor] Respiratory 22 23 Rate Blood Pressure 150/77 150/77 159/87 O2 Sat by Pulse 99 99 Oximetry 07/23/19 07/23/19 07/23/19 21:46 22:00 22:16 Temperature Pulse Rate 104 H 108 H 93 H Pulse Rate [ From Monitor] Respiratory 23 21 22 Rate Blood Pressure 159/87 162/85 159/87 O2 Sat by Pulse 98 88 98 Oximetry 07/23/19 07/23/19 07/23/19 22:18 22:30 23:00 Temperature Pulse Rate 103 H 90 97 H Pulse Rate [ From Monitor] Respiratory 20 20 19 Rate Blood Pressure 159/87 140/68 140/68 O2 Sat by Pulse 99 91 99 Oximetry 07/23/19 07/23/19 07/24/19 23:30 23:50 00:00 Temperature 98.8 F Pulse Rate 97 H 81 94 H Pulse Rate [ 94 H From Monitor] Respiratory 11 L 20 Rate Blood Pressure 149/74 149/74 140/71 O2 Sat by Pulse 96 99 94 Oximetry 07/24/19 07/24/19 07/24/19 01:00 02:00 03:00 Temperature Pulse Rate 87 81 90 Pulse Rate [ From Monitor] Respiratory 21 19 17 Rate Blood Pressure 141/70 143/65 149/68 O2 Sat by Pulse 94 92 93 Oximetry 07/24/19 07/24/19 07/24/19 04:00 04:39 05:00 Temperature 99.3 F Pulse Rate 90 94 H 92 H Pulse Rate [ 90 From Monitor] Respiratory 20 19 Rate Blood Pressure 138/66 148/68 135/71 O2 Sat by Pulse 93 98 94 Oximetry 07/24/19 07/24/19 07/24/19 06:00 08:00 08:14 Temperature 99.3 F Pulse Rate 105 H Pulse Rate [ From Monitor] Respiratory Rate Blood Pressure 150/71 129/68 O2 Sat by Pulse 98 100 Oximetry 07/24/19 08:17 Temperature Pulse Rate 101 H Pulse Rate [ From Monitor] Respiratory 21 Rate Blood Pressure 129/68 O2 Sat by Pulse 100 Oximetry - General Apperance Constitutional: comfortable - EENT EENT: PERRL - Respiratory Respiratory: chest non-tender, rales, rhonchi - Cardiovascular Cardiovascular: regular rate, normal S1, normal S2 Extremities: no peripheral edema bilat - Gastrointestinal Gastrointestinal: normoactive bowel sounds - Integumentary Integumentary: normal - Neurologic Cranial nerve examination: PERRL, EOMI, intact gag reflex, intact cough reflex, intact corneal reflex Speech examination: other (intubated) Detailed motor examination: other (withdrwal bothupper and to lower extent lower to pain ) - Laboratory Findings CBC and BMP: 07/22/19 06:00 07/24/19 07:03 Abnormal Lab Findings: Abnormal Labs 07/12/19 07/12/19 07/12/19 14:46 15:08 15:08 WBC 14.7 H RBC 2.97 L Hgb 9.7 L Hct 29.0 L MCV 98 H MCH 33 H RDW 19.8 H Plt Count 124 L Seg Neuts % (Manual) 91.0 H Lymphocytes % (Manual) 2.0 L Nucleated RBC % 1.0 H Seg Neutrophils # Man 13.4 H Lymphocytes # (Manual) 0.3 L PT 19.8 H INR 1.65 H APTT 47.8 H ABG pH ABG pO2 ABG HCO3 ABG O2 Saturation ABG Base Excess ABG Hemoglobin Oxyhemoglobin Sodium Potassium Chloride Carbon Dioxide BUN Creatinine Glucose POC Glucose 110 H Calcium Phosphorus Magnesium Iron TIBC Ferritin Total Bilirubin Direct Bilirubin AST Alkaline Phosphatase Lactate Dehydrogenase Troponin T NT-Pro-B Natriuret Pep Total Protein Albumin LDL Cholesterol Direct Vitamin B12 Folate Urine WBC (Auto) Urine Creatinine Urine Total Protein Fluid Glucose Fluid Total Protein 07/12/19 07/12/19 07/12/19 15:08 15:08 15:08 WBC RBC Hgb Hct MCV MCH RDW Plt Count Seg Neuts % (Manual) Lymphocytes % (Manual) Nucleated RBC % Seg Neutrophils # Man Lymphocytes # (Manual) PT INR APTT ABG pH ABG pO2 ABG HCO3 ABG O2 Saturation ABG Base Excess ABG Hemoglobin Oxyhemoglobin Sodium 125 L Potassium 5.5 H Chloride 84.9 L Carbon Dioxide 13 L BUN 70 H Creatinine 8.8 H Glucose POC Glucose Calcium 8.0 L Phosphorus Magnesium 1.30 L Iron TIBC Ferritin Total Bilirubin 1.30 H Direct Bilirubin 0.9 H AST 53 H Alkaline Phosphatase 208 H Lactate Dehydrogenase Troponin T 0.192 H* NT-Pro-B Natriuret Pep > 62073 H Total Protein Albumin 3.3 L LDL Cholesterol Direct 40 L Vitamin B12 Folate Urine WBC (Auto) Urine Creatinine Urine Total Protein Fluid Glucose Fluid Total Protein 07/12/19 07/13/19 07/13/19 17:04 01:32 01:32 WBC RBC Hgb Hct MCV MCH RDW Plt Count Seg Neuts % (Manual) Lymphocytes % (Manual) Nucleated RBC % Seg Neutrophils # Man Lymphocytes # (Manual) PT INR APTT ABG pH ABG pO2 ABG HCO3 ABG O2 Saturation ABG Base Excess ABG Hemoglobin Oxyhemoglobin Sodium 133 L D Potassium 5.3 H Chloride 90.8 L Carbon Dioxide 20 L D BUN 48 H Creatinine 6.2 H Glucose 105 H POC Glucose Calcium 8.2 L Phosphorus 4.90 H Magnesium 1.50 L Iron TIBC Ferritin Total Bilirubin Direct Bilirubin AST Alkaline Phosphatase Lactate Dehydrogenase Troponin T 0.188 H* NT-Pro-B Natriuret Pep Total Protein Albumin LDL Cholesterol Direct Vitamin B12 Folate Urine WBC (Auto) Urine Creatinine Urine Total Protein Fluid Glucose Fluid Total Protein 07/13/19 07/13/19 07/13/19 04:28 04:28 16:16 WBC 15.9 H RBC 3.10 L Hgb 10.2 L Hct 30.6 L MCV 99 H MCH 33 H RDW 19.4 H Plt Count 135 L Seg Neuts % (Manual) Lymphocytes % (Manual) 4.0 L Nucleated RBC % Seg Neutrophils # Man 9.9 H Lymphocytes # (Manual) 0.6 L PT INR APTT ABG pH ABG pO2 ABG HCO3 ABG O2 Saturation ABG Base Excess ABG Hemoglobin Oxyhemoglobin Sodium 132 L 134 L Potassium 5.1 H Chloride 90.3 L 92.2 L Carbon Dioxide 17 L 20 L BUN 47 H 55 H Creatinine 6.0 H 6.5 H Glucose 124 H POC Glucose Calcium 8.2 L 7.9 L Phosphorus Magnesium Iron TIBC Ferritin Total Bilirubin Direct Bilirubin AST Alkaline Phosphatase Lactate Dehydrogenase Troponin T NT-Pro-B Natriuret Pep Total Protein Albumin LDL Cholesterol Direct Vitamin B12 Folate Urine WBC (Auto) Urine Creatinine Urine Total Protein Fluid Glucose Fluid Total Protein 07/14/19 07/14/19 07/14/19 07:16 07:16 07:16 WBC RBC 2.65 L Hgb 8.6 L Hct 25.4 L MCV 96 H MCH 33 H RDW 19.7 H Plt Count 114 L Seg Neuts % (Manual) 89.0 H Lymphocytes % (Manual) 4.0 L Nucleated RBC % Seg Neutrophils # Man Lymphocytes # (Manual) 0.3 L PT INR APTT ABG pH ABG pO2 ABG HCO3 ABG O2 Saturation ABG Base Excess ABG Hemoglobin Oxyhemoglobin Sodium 133 L Potassium Chloride 93.0 L Carbon Dioxide 18 L BUN 61 H Creatinine 7.3 H Glucose 113 H POC Glucose Calcium 7.7 L Phosphorus Magnesium Iron TIBC Ferritin Total Bilirubin Direct Bilirubin AST Alkaline Phosphatase Lactate Dehydrogenase 210 H Troponin T NT-Pro-B Natriuret Pep Total Protein Albumin LDL Cholesterol Direct Vitamin B12 Folate Urine WBC (Auto) Urine Creatinine Urine Total Protein Fluid Glucose Fluid Total Protein 07/14/19 07/14/19 07/14/19 10:45 16:40 17:28 WBC RBC Hgb Hct MCV MCH RDW Plt Count Seg Neuts % (Manual) Lymphocytes % (Manual) Nucleated RBC % Seg Neutrophils # Man Lymphocytes # (Manual) PT INR APTT ABG pH ABG pO2 ABG HCO3 ABG O2 Saturation ABG Base Excess ABG Hemoglobin Oxyhemoglobin Sodium Potassium Chloride Carbon Dioxide BUN Creatinine Glucose POC Glucose Calcium Phosphorus Magnesium Iron TIBC Ferritin Total Bilirubin Direct Bilirubin AST Alkaline Phosphatase Lactate Dehydrogenase Troponin T NT-Pro-B Natriuret Pep Total Protein Albumin LDL Cholesterol Direct Vitamin B12 Folate Urine WBC (Auto) Urine Creatinine 104.2 H 106.2 H Urine Total Protein 173 H Fluid Glucose 93 H Fluid Total Protein 4.7 L 07/14/19 07/14/19 07/15/19 17:28 20:43 06:30 WBC RBC 3.06 L Hgb 9.9 L Hct 29.7 L MCV 97 H MCH 33 H RDW 19.5 H Plt Count 101 L Seg Neuts % (Manual) Lymphocytes % (Manual) Nucleated RBC % Seg Neutrophils # Man Lymphocytes # (Manual) PT INR APTT ABG pH ABG pO2 ABG HCO3 ABG O2 Saturation ABG Base Excess ABG Hemoglobin Oxyhemoglobin Sodium Potassium Chloride Carbon Dioxide BUN Creatinine Glucose POC Glucose 120 H Calcium Phosphorus Magnesium Iron TIBC Ferritin Total Bilirubin Direct Bilirubin AST Alkaline Phosphatase Lactate Dehydrogenase Troponin T NT-Pro-B Natriuret Pep Total Protein Albumin LDL Cholesterol Direct Vitamin B12 Folate Urine WBC (Auto) 31.0 H Urine Creatinine Urine Total Protein Fluid Glucose Fluid Total Protein 07/15/19 07/15/19 07/15/19 06:30 06:30 06:30 WBC RBC Hgb Hct MCV MCH RDW Plt Count Seg Neuts % (Manual) Lymphocytes % (Manual) Nucleated RBC % Seg Neutrophils # Man Lymphocytes # (Manual) PT INR APTT ABG pH ABG pO2 ABG HCO3 ABG O2 Saturation ABG Base Excess ABG Hemoglobin Oxyhemoglobin Sodium Potassium Chloride 95.2 L Carbon Dioxide BUN 42 H Creatinine 4.9 H Glucose POC Glucose Calcium Phosphorus Magnesium Iron 15 L TIBC 186 L Ferritin 428.2 H Total Bilirubin Direct Bilirubin AST 50 H Alkaline Phosphatase 191 H Lactate Dehydrogenase Troponin T NT-Pro-B Natriuret Pep Total Protein Albumin 3.1 L LDL Cholesterol Direct Vitamin B12 Folate Urine WBC (Auto) Urine Creatinine Urine Total Protein Fluid Glucose Fluid Total Protein 07/15/19 07/16/19 07/16/19 12:42 06:19 21:34 WBC RBC Hgb Hct MCV MCH RDW Plt Count Seg Neuts % (Manual) Lymphocytes % (Manual) Nucleated RBC % Seg Neutrophils # Man Lymphocytes # (Manual) PT INR APTT ABG pH ABG pO2 ABG HCO3 ABG O2 Saturation ABG Base Excess ABG Hemoglobin Oxyhemoglobin Sodium 134 L 134 L Potassium Chloride 92.9 L 93.4 L Carbon Dioxide 20 L BUN 55 H 40 H Creatinine 5.6 H 4.4 H Glucose POC Glucose 140 H Calcium Phosphorus Magnesium Iron TIBC Ferritin Total Bilirubin Direct Bilirubin AST Alkaline Phosphatase Lactate Dehydrogenase Troponin T NT-Pro-B Natriuret Pep Total Protein Albumin LDL Cholesterol Direct Vitamin B12 Folate Urine WBC (Auto) Urine Creatinine Urine Total Protein Fluid Glucose Fluid Total Protein 07/17/19 07/17/19 07/17/19 05:27 12:10 12:52 WBC RBC Hgb Hct MCV MCH RDW Plt Count Seg Neuts % (Manual) Lymphocytes % (Manual) Nucleated RBC % Seg Neutrophils # Man Lymphocytes # (Manual) PT INR APTT ABG pH ABG pO2 ABG HCO3 ABG O2 Saturation ABG Base Excess ABG Hemoglobin Oxyhemoglobin Sodium 136 L Potassium Chloride 93.6 L Carbon Dioxide BUN 43 H Creatinine 4.8 H Glucose POC Glucose 122 H 122 H Calcium Phosphorus Magnesium Iron TIBC Ferritin Total Bilirubin Direct Bilirubin AST Alkaline Phosphatase Lactate Dehydrogenase Troponin T NT-Pro-B Natriuret Pep Total Protein Albumin LDL Cholesterol Direct Vitamin B12 Folate Urine WBC (Auto) Urine Creatinine Urine Total Protein Fluid Glucose Fluid Total Protein 07/17/19 07/18/19 07/18/19 13:50 04:20 05:40 WBC RBC Hgb Hct MCV MCH RDW Plt Count Seg Neuts % (Manual) Lymphocytes % (Manual) Nucleated RBC % Seg Neutrophils # Man Lymphocytes # (Manual) PT INR APTT ABG pH 7.262 L ABG pO2 195.5 H 238.9 H ABG HCO3 ABG O2 Saturation 99.1 H 99.4 H ABG Base Excess -2.9 L ABG Hemoglobin 8.6 L 10.9 L Oxyhemoglobin Sodium Potassium Chloride 94.5 L Carbon Dioxide BUN 61 H Creatinine 5.6 H Glucose 111 H POC Glucose Calcium Phosphorus 4.70 H Magnesium Iron TIBC Ferritin Total Bilirubin Direct Bilirubin AST Alkaline Phosphatase Lactate Dehydrogenase 294 H Troponin T NT-Pro-B Natriuret Pep Total Protein Albumin LDL Cholesterol Direct Vitamin B12 Folate Urine WBC (Auto) Urine Creatinine Urine Total Protein Fluid Glucose Fluid Total Protein 07/18/19 07/18/19 07/18/19 05:40 05:40 10:30 WBC 22.7 H RBC 2.64 L Hgb 8.2 L Hct 24.9 L MCV 95 H MCH RDW 19.7 H Plt Count 94 L Seg Neuts % (Manual) Lymphocytes % (Manual) Nucleated RBC % Seg Neutrophils # Man Lymphocytes # (Manual) PT INR APTT ABG pH 7.457 H ABG pO2 ABG HCO3 26.3 H ABG O2 Saturation ABG Base Excess ABG Hemoglobin 7.8 L Oxyhemoglobin 94.6 L Sodium Potassium Chloride Carbon Dioxide BUN Creatinine Glucose POC Glucose Calcium Phosphorus Magnesium Iron TIBC Ferritin Total Bilirubin Direct Bilirubin 0.7 H AST 94 H Alkaline Phosphatase 159 H Lactate Dehydrogenase Troponin T NT-Pro-B Natriuret Pep Total Protein 5.6 L D Albumin 2.5 L LDL Cholesterol Direct Vitamin B12 Folate Urine WBC (Auto) Urine Creatinine Urine Total Protein Fluid Glucose Fluid Total Protein 07/18/19 07/19/19 07/19/19 Unknown 05:15 05:15 WBC RBC Hgb Hct MCV MCH RDW Plt Count Seg Neuts % (Manual) Lymphocytes % (Manual) Nucleated RBC % Seg Neutrophils # Man Lymphocytes # (Manual) PT INR APTT ABG pH ABG pO2 ABG HCO3 ABG O2 Saturation ABG Base Excess ABG Hemoglobin 11.6 L Oxyhemoglobin 94.3 L Sodium 133 L Potassium Chloride 94.9 L Carbon Dioxide BUN 43 H Creatinine 4.0 H Glucose 118 H POC Glucose Calcium Phosphorus Magnesium 0.20 L* Iron TIBC Ferritin Total Bilirubin Direct Bilirubin AST Alkaline Phosphatase Lactate Dehydrogenase Troponin T NT-Pro-B Natriuret Pep Total Protein Albumin LDL Cholesterol Direct Vitamin B12 Folate Urine WBC (Auto) Urine Creatinine Urine Total Protein Fluid Glucose Fluid Total Protein 07/19/19 07/19/1907/20/20 05:15 06:00 06:15 WBC 14.6 H RBC 2.57 L Hgb 8.2 L Hct 24.3 L MCV 95 H MCH RDW 19.5 H Plt Count 101 L Seg Neuts % (Manual) Lymphocytes % (Manual) Nucleated RBC % Seg Neutrophils # Man Lymphocytes # (Manual) PT INR APTT ABG pH ABG pO2 91.2 H ABG HCO3 27.5 H ABG O2 Saturation ABG Base Excess ABG Hemoglobin 8.3 L Oxyhemoglobin Sodium Potassium Chloride Carbon Dioxide BUN 61 H Creatinine 4.6 H Glucose 117 H POC Glucose Calcium Phosphorus Magnesium Iron TIBC Ferritin Total Bilirubin Direct Bilirubin AST Alkaline Phosphatase Lactate Dehydrogenase Troponin T NT-Pro-B Natriuret Pep Total Protein Albumin LDL Cholesterol Direct Vitamin B12 Folate Urine WBC (Auto) Urine Creatinine Urine Total Protein Fluid Glucose Fluid Total Protein 07/21/19 07/21/19 07/21/19 05:30 06:15 06:15 WBC 11.8 H RBC 2.45 L Hgb 7.9 L Hct 23.5 L MCV 96 H MCH RDW 19.4 H Plt Count Seg Neuts % (Manual) Lymphocytes % (Manual) Nucleated RBC % Seg Neutrophils # Man Lymphocytes # (Manual) PT INR APTT ABG pH ABG pO2 104.5 H ABG HCO3 27.9 H ABG O2 Saturation ABG Base Excess 3.3 H ABG Hemoglobin 8.2 L Oxyhemoglobin Sodium Potassium 3.3 L Chloride Carbon Dioxide BUN 74 H Creatinine 4.3 H Glucose 127 H POC Glucose Calcium Phosphorus Magnesium Iron TIBC Ferritin Total Bilirubin Direct Bilirubin AST Alkaline Phosphatase Lactate Dehydrogenase Troponin T NT-Pro-B Natriuret Pep Total Protein Albumin LDL Cholesterol Direct Vitamin B12 Folate Urine WBC (Auto) Urine Creatinine Urine Total Protein Fluid Glucose Fluid Total Protein 07/21/19 07/21/19 07/21/19 08:00 08:00 17:51 WBC RBC Hgb Hct MCV MCH RDW Plt Count Seg Neuts % (Manual) Lymphocytes % (Manual) Nucleated RBC % Seg Neutrophils # Man Lymphocytes # (Manual) PT INR APTT ABG pH ABG pO2 ABG HCO3 ABG O2 Saturation ABG Base Excess ABG Hemoglobin Oxyhemoglobin Sodium Potassium 3.2 L Chloride Carbon Dioxide BUN Creatinine Glucose POC Glucose Calcium Phosphorus Magnesium Iron TIBC Ferritin Total Bilirubin Direct Bilirubin AST Alkaline Phosphatase Lactate Dehydrogenase Troponin T NT-Pro-B Natriuret Pep Total Protein Albumin LDL Cholesterol Direct Vitamin B12 960.4 H Folate 6.18 L Urine WBC (Auto) Urine Creatinine Urine Total Protein Fluid Glucose Fluid Total Protein 07/22/19 07/22/19 07/22/19 03:40 06:00 21:45 WBC 12.6 H RBC 2.54 L Hgb 7.8 L Hct 24.2 L MCV 95 H MCH RDW 19.7 H Plt Count Seg Neuts % (Manual) Lymphocytes % (Manual) Nucleated RBC % Seg Neutrophils # Man Lymphocytes # (Manual) PT INR APTT ABG pH ABG pO2 99.4 H ABG HCO3 27.3 H ABG O2 Saturation ABG Base Excess ABG Hemoglobin 9.2 L Oxyhemoglobin Sodium Potassium 3.1 L Chloride Carbon Dioxide BUN 75 H Creatinine 2.9 H Glucose 123 H POC Glucose Calcium Phosphorus Magnesium Iron TIBC Ferritin Total Bilirubin Direct Bilirubin AST Alkaline Phosphatase Lactate Dehydrogenase Troponin T NT-Pro-B Natriuret Pep Total Protein Albumin LDL Cholesterol Direct Vitamin B12 Folate Urine WBC (Auto) Urine Creatinine Urine Total Protein Fluid Glucose Fluid Total Protein 07/23/19 07/24/19 07/24/19 05:30 04:12 07:03 WBC RBC Hgb Hct MCV MCH RDW Plt Count Seg Neuts % (Manual) Lymphocytes % (Manual) Nucleated RBC % Seg Neutrophils # Man Lymphocytes # (Manual) PT INR APTT ABG pH ABG pO2 123.1 H ABG HCO3 27.1 H ABG O2 Saturation ABG Base Excess ABG Hemoglobin 9.3 L Oxyhemoglobin Sodium Potassium 3.1 L 3.4 L Chloride 107.5 H Carbon Dioxide BUN 80 H 70 H Creatinine 2.6 H 1.8 H Glucose 112 H 112 H POC Glucose Calcium Phosphorus Magnesium Iron TIBC Ferritin Total Bilirubin Direct Bilirubin AST Alkaline Phosphatase Lactate Dehydrogenase Troponin T NT-Pro-B Natriuret Pep Total Protein Albumin LDL Cholesterol Direct Vitamin B12 Folate Urine WBC (Auto) Urine Creatinine Urine Total Protein Fluid Glucose Fluid Total Protein 07/24/19 07:03 WBC RBC Hgb Hct MCV MCH RDW Plt Count Seg Neuts % (Manual) Lymphocytes % (Manual) Nucleated RBC % Seg Neutrophils # Man Lymphocytes # (Manual) PT INR APTT ABG pH ABG pO2 ABG HCO3 ABG O2 Saturation ABG Base Excess ABG Hemoglobin Oxyhemoglobin Sodium Potassium Chloride Carbon Dioxide BUN Creatinine Glucose POC Glucose Calcium Phosphorus Magnesium 1.50 L Iron TIBC Ferritin Total Bilirubin Direct Bilirubin AST Alkaline Phosphatase Lactate Dehydrogenase Troponin T NT-Pro-B Natriuret Pep Total Protein Albumin LDL Cholesterol Direct Vitamin B12 Folate Urine WBC (Auto) Urine Creatinine Urine Total Protein Fluid Glucose Fluid Total Protein
[2019-07-24] MEDS: cloNIDine 0.1 MG TAB PO SCH ×2 (09:41→22:33)
[2019-07-24] MEDS: amLODIPine 10 MG TAB PO SCH (09:41)
[2019-07-24] MEDS: LANSOPRAZOLE 30 MG SOLUTAB FEEDTUBE SCH (09:41)
[2019-07-24] MEDS: THIAMINE 100 MG TAB PO SCH (09:42)
[2019-07-24] MEDS ORDERED: MAGNESIUM SULFATE 2 GM/50 ML BAG IV ONE (10:00)
[2019-07-24] MEDS ORDERED: POTASSIUM CHLORIDE 20 MEQ PACKET FEEDTUBE ONE (10:00)
--- NOTE | 2019-07-24 10:19 | Progress Note ---
Assessment and Plan 48 y/o male with inhouse cardiac arrest x2 1. obtain MRI 2. No sedation 3. Will continue PSV trials as tolerated, currently on and tolerated. 4. no evidence of seizure but based on report, suggestive of anoxia. Will defer to primary but would be reasonable to have the current neurologist evaluate and discuss with family. The likelyhood of functional return seems poor given his events and multiple cardiac arrests. Hopeful that neuro will meet with family when MRI is done and explain the prognosis. 5. Overall prognosis is poor. CCT 31 minutes. Subjective Date of service: 07/24/19 Principal diagnosis: post anoxic brain injury Interval history: No acute events. Mental state is unchanged. Reviewed neurology note from yesterday and today. Objective Vital Signs - 12hr 07/23/19 07/23/19 07/23/19 22:18 22:30 23:00 Temperature Pulse Rate 103 H 90 97 H Pulse Rate [ From Monitor] Respiratory 20 20 19 Rate Blood Pressure 159/87 140/68 140/68 O2 Sat by Pulse 99 91 99 Oximetry 07/23/19 07/23/19 07/24/19 23:30 23:50 00:00 Temperature 98.8 F Pulse Rate 97 H 81 94 H Pulse Rate [ 94 H From Monitor] Respiratory 11 L 20 Rate Blood Pressure 149/74 149/74 140/71 O2 Sat by Pulse 96 99 94 Oximetry 07/24/19 07/24/19 07/24/19 01:00 02:00 03:00 Temperature Pulse Rate 87 81 90 Pulse Rate [ From Monitor] Respiratory 21 19 17 Rate Blood Pressure 141/70 143/65 149/68 O2 Sat by Pulse 94 92 93 Oximetry 07/24/19 07/24/19 07/24/19 04:00 04:39 05:00 Temperature 99.3 F Pulse Rate 90 94 H 92 H Pulse Rate [ 90 From Monitor] Respiratory 20 19 Rate Blood Pressure 138/66 148/68 135/71 O2 Sat by Pulse 93 98 94 Oximetry 07/24/19 07/24/19 07/24/19 06:00 07:00 08:00 Temperature 99.3 F Pulse Rate 86 91 H Pulse Rate [ From Monitor] Respiratory 21 21 Rate Blood Pressure 150/71 142/71 129/68 O2 Sat by Pulse 98 100 94 Oximetry 07/24/19 07/24/19 07/24/19 08:14 08:17 09:00 Temperature Pulse Rate 105 H 101 H 94 H Pulse Rate [ From Monitor] Respiratory 21 25 H Rate Blood Pressure 129/68 129/68 144/67 O2 Sat by Pulse 100 100 99 Oximetry 07/24/19 09:41 Temperature Pulse Rate 102 H Pulse Rate [ From Monitor] Respiratory Rate Blood Pressure 138/70 O2 Sat by Pulse Oximetry Constitutional: no acute distress, comatose Eyes: non-icteric ENT: other (orally intubated not on sedation) Neck: supple Effort: normal Ascultation: Bilateral: clear Gastrointestinal: normoactive bowel sounds Integumentary: normal CBC and BMP: 07/22/19 06:00 07/24/19 07:03 ABG, PT/INR, D-dimer: ABG ABG pH 7.446 pH Units (7.350-7.450) 07/24/19 04:12 ABG pCO2 40.3 mm Hg 07/24/19 04:12 ABG pO2 123.1 mm Hg (80.0-90.0) H 07/24/19 04:12 ABG O2 Saturation 98.5 % (95.0-99.0) 07/24/19 04:12 PT/INR, D-dimer PT 19.8 Sec. (12.2-14.9) H 07/12/19 15:08 INR 1.65 (0.87-1.13) H 07/12/19 15:08 Abnormal lab findings: Abnormal Labs 07/12/19 07/12/19 07/12/19 14:46 15:08 15:08 WBC 14.7 H RBC 2.97 L Hgb 9.7 L Hct 29.0 L MCV 98 H MCH 33 H RDW 19.8 H Plt Count 124 L Seg Neuts % (Manual) 91.0 H Lymphocytes % (Manual) 2.0 L Nucleated RBC % 1.0 H Seg Neutrophils # Man 13.4 H Lymphocytes # (Manual) 0.3 L PT 19.8 H INR 1.65 H APTT 47.8 H ABG pH ABG pO2 ABG HCO3 ABG O2 Saturation ABG Base Excess ABG Hemoglobin Oxyhemoglobin Sodium Potassium Chloride Carbon Dioxide BUN Creatinine Glucose POC Glucose 110 H Calcium Phosphorus Magnesium Iron TIBC Ferritin Total Bilirubin Direct Bilirubin AST Alkaline Phosphatase Lactate Dehydrogenase Troponin T NT-Pro-B Natriuret Pep Total Protein Albumin LDL Cholesterol Direct Vitamin B12 Folate Urine WBC (Auto) Urine Creatinine Urine Total Protein Fluid Glucose Fluid Total Protein 07/12/19 07/12/19 07/12/19 15:08 15:08 15:08 WBC RBC Hgb Hct MCV MCH RDW Plt Count Seg Neuts % (Manual) Lymphocytes % (Manual) Nucleated RBC % Seg Neutrophils # Man Lymphocytes # (Manual) PT INR APTT ABG pH ABG pO2 ABG HCO3 ABG O2 Saturation ABG Base Excess ABG Hemoglobin Oxyhemoglobin Sodium 125 L Potassium 5.5 H Chloride 84.9 L Carbon Dioxide 13 L BUN 70 H Creatinine 8.8 H Glucose POC Glucose Calcium 8.0 L Phosphorus Magnesium 1.30 L Iron TIBC Ferritin Total Bilirubin 1.30 H Direct Bilirubin 0.9 H AST 53 H Alkaline Phosphatase 208 H Lactate Dehydrogenase Troponin T 0.192 H* NT-Pro-B Natriuret Pep > 86107 H Total Protein Albumin 3.3 L LDL Cholesterol Direct 40 L Vitamin B12 Folate Urine WBC (Auto) Urine Creatinine Urine Total Protein Fluid Glucose Fluid Total Protein 07/12/19 07/13/19 07/13/19 17:04 01:32 01:32 WBC RBC Hgb Hct MCV MCH RDW Plt Count Seg Neuts % (Manual) Lymphocytes % (Manual) Nucleated RBC % Seg Neutrophils # Man Lymphocytes # (Manual) PT INR APTT ABG pH ABG pO2 ABG HCO3 ABG O2 Saturation ABG Base Excess ABG Hemoglobin Oxyhemoglobin Sodium 133 L D Potassium 5.3 H Chloride 90.8 L Carbon Dioxide 20 L D BUN 48 H Creatinine 6.2 H Glucose 105 H POC Glucose Calcium 8.2 L Phosphorus 4.90 H Magnesium 1.50 L Iron TIBC Ferritin Total Bilirubin Direct Bilirubin AST Alkaline Phosphatase Lactate Dehydrogenase Troponin T 0.188 H* NT-Pro-B Natriuret Pep Total Protein Albumin LDL Cholesterol Direct Vitamin B12 Folate Urine WBC (Auto) Urine Creatinine Urine Total Protein Fluid Glucose Fluid Total Protein 07/13/19 07/13/19 07/13/19 04:28 04:28 16:16 WBC 15.9 H RBC 3.10 L Hgb 10.2 L Hct 30.6 L MCV 99 H MCH 33 H RDW 19.4 H Plt Count 135 L Seg Neuts % (Manual) Lymphocytes % (Manual) 4.0 L Nucleated RBC % Seg Neutrophils # Man 9.9 H Lymphocytes # (Manual) 0.6 L PT INR APTT ABG pH ABG pO2 ABG HCO3 ABG O2 Saturation ABG Base Excess ABG Hemoglobin Oxyhemoglobin Sodium 132 L 134 L Potassium 5.1 H Chloride 90.3 L 92.2 L Carbon Dioxide 17 L 20 L BUN 47 H 55 H Creatinine 6.0 H 6.5 H Glucose 124 H POC Glucose Calcium 8.2 L 7.9 L Phosphorus Magnesium Iron TIBC Ferritin Total Bilirubin Direct Bilirubin AST Alkaline Phosphatase Lactate Dehydrogenase Troponin T NT-Pro-B Natriuret Pep Total Protein Albumin LDL Cholesterol Direct Vitamin B12 Folate Urine WBC (Auto) Urine Creatinine Urine Total Protein Fluid Glucose Fluid Total Protein 07/14/19 07/14/19 07/14/19 07:16 07:16 07:16 WBC RBC 2.65 L Hgb 8.6 L Hct 25.4 L MCV 96 H MCH 33 H RDW 19.7 H Plt Count 114 L Seg Neuts % (Manual) 89.0 H Lymphocytes % (Manual) 4.0 L Nucleated RBC % Seg Neutrophils # Man Lymphocytes # (Manual) 0.3 L PT INR APTT ABG pH ABG pO2 ABG HCO3 ABG O2 Saturation ABG Base Excess ABG Hemoglobin Oxyhemoglobin Sodium 133 L Potassium Chloride 93.0 L Carbon Dioxide 18 L BUN 61 H Creatinine 7.3 H Glucose 113 H POC Glucose Calcium 7.7 L Phosphorus Magnesium Iron TIBC Ferritin Total Bilirubin Direct Bilirubin AST Alkaline Phosphatase Lactate Dehydrogenase 210 H Troponin T NT-Pro-B Natriuret Pep Total Protein Albumin LDL Cholesterol Direct Vitamin B12 Folate Urine WBC (Auto) Urine Creatinine Urine Total Protein Fluid Glucose Fluid Total Protein 07/14/19 07/14/19 07/14/19 10:45 16:40 17:28 WBC RBC Hgb Hct MCV MCH RDW Plt Count Seg Neuts % (Manual) Lymphocytes % (Manual) Nucleated RBC % Seg Neutrophils # Man Lymphocytes # (Manual) PT INR APTT ABG pH ABG pO2 ABG HCO3 ABG O2 Saturation ABG Base Excess ABG Hemoglobin Oxyhemoglobin Sodium Potassium Chloride Carbon Dioxide BUN Creatinine Glucose POC Glucose Calcium Phosphorus Magnesium Iron TIBC Ferritin Total Bilirubin Direct Bilirubin AST Alkaline Phosphatase Lactate Dehydrogenase Troponin T NT-Pro-B Natriuret Pep Total Protein Albumin LDL Cholesterol Direct Vitamin B12 Folate Urine WBC (Auto) Urine Creatinine 104.2 H 106.2 H Urine Total Protein 173 H Fluid Glucose 93 H Fluid Total Protein 4.7 L 01/27/20 01/27/20 01/28/20 17:28 20:43 06:30 WBC RBC 3.06 L Hgb 9.9 L Hct 29.7 L MCV 97 H MCH 33 H RDW 19.5 H Plt Count 101 L Seg Neuts % (Manual) Lymphocytes % (Manual) Nucleated RBC % Seg Neutrophils # Man Lymphocytes # (Manual) PT INR APTT ABG pH ABG pO2 ABG HCO3 ABG O2 Saturation ABG Base Excess ABG Hemoglobin Oxyhemoglobin Sodium Potassium Chloride Carbon Dioxide BUN Creatinine Glucose POC Glucose 120 H Calcium Phosphorus Magnesium Iron TIBC Ferritin Total Bilirubin Direct Bilirubin AST Alkaline Phosphatase Lactate Dehydrogenase Troponin T NT-Pro-B Natriuret Pep Total Protein Albumin LDL Cholesterol Direct Vitamin B12 Folate Urine WBC (Auto) 31.0 H Urine Creatinine Urine Total Protein Fluid Glucose Fluid Total Protein 07/15/19 07/15/19 07/15/19 06:30 06:30 06:30 WBC RBC Hgb Hct MCV MCH RDW Plt Count Seg Neuts % (Manual) Lymphocytes % (Manual) Nucleated RBC % Seg Neutrophils # Man Lymphocytes # (Manual) PT INR APTT ABG pH ABG pO2 ABG HCO3 ABG O2 Saturation ABG Base Excess ABG Hemoglobin Oxyhemoglobin Sodium Potassium Chloride 95.2 L Carbon Dioxide BUN 42 H Creatinine 4.9 H Glucose POC Glucose Calcium Phosphorus Magnesium Iron 15 L TIBC 186 L Ferritin 428.2 H Total Bilirubin Direct Bilirubin AST 50 H Alkaline Phosphatase 191 H Lactate Dehydrogenase Troponin T NT-Pro-B Natriuret Pep Total Protein Albumin 3.1 L LDL Cholesterol Direct Vitamin B12 Folate Urine WBC (Auto) Urine Creatinine Urine Total Protein Fluid Glucose Fluid Total Protein 07/15/19 07/16/19 07/16/19 12:42 06:19 21:34 WBC RBC Hgb Hct MCV MCH RDW Plt Count Seg Neuts % (Manual) Lymphocytes % (Manual) Nucleated RBC % Seg Neutrophils # Man Lymphocytes # (Manual) PT INR APTT ABG pH ABG pO2 ABG HCO3 ABG O2 Saturation ABG Base Excess ABG Hemoglobin Oxyhemoglobin Sodium 134 L 134 L Potassium Chloride 92.9 L 93.4 L Carbon Dioxide 20 L BUN 55 H 40 H Creatinine 5.6 H 4.4 H Glucose POC Glucose 140 H Calcium Phosphorus Magnesium Iron TIBC Ferritin Total Bilirubin Direct Bilirubin AST Alkaline Phosphatase Lactate Dehydrogenase Troponin T NT-Pro-B Natriuret Pep Total Protein Albumin LDL Cholesterol Direct Vitamin B12 Folate Urine WBC (Auto) Urine Creatinine Urine Total Protein Fluid Glucose Fluid Total Protein 07/17/19 07/17/19 07/17/19 05:27 12:10 12:52 WBC RBC Hgb Hct MCV MCH RDW Plt Count Seg Neuts % (Manual) Lymphocytes % (Manual) Nucleated RBC % Seg Neutrophils # Man Lymphocytes # (Manual) PT INR APTT ABG pH ABG pO2 ABG HCO3 ABG O2 Saturation ABG Base Excess ABG Hemoglobin Oxyhemoglobin Sodium 136 L Potassium Chloride 93.6 L Carbon Dioxide BUN 43 H Creatinine 4.8 H Glucose POC Glucose 122 H 122 H Calcium Phosphorus Magnesium Iron TIBC Ferritin Total Bilirubin Direct Bilirubin AST Alkaline Phosphatase Lactate Dehydrogenase Troponin T NT-Pro-B Natriuret Pep Total Protein Albumin LDL Cholesterol Direct Vitamin B12 Folate Urine WBC (Auto) Urine Creatinine Urine Total Protein Fluid Glucose Fluid Total Protein 07/17/19 07/18/19 07/18/19 13:50 04:20 05:40 WBC RBC Hgb Hct MCV MCH RDW Plt Count Seg Neuts % (Manual) Lymphocytes % (Manual) Nucleated RBC % Seg Neutrophils # Man Lymphocytes # (Manual) PT INR APTT ABG pH 7.262 L ABG pO2 195.5 H 238.9 H ABG HCO3 ABG O2 Saturation 99.1 H 99.4 H ABG Base Excess -2.9 L ABG Hemoglobin 8.6 L 10.9 L Oxyhemoglobin Sodium Potassium Chloride 94.5 L Carbon Dioxide BUN 61 H Creatinine 5.6 H Glucose 111 H POC Glucose Calcium Phosphorus 4.70 H Magnesium Iron TIBC Ferritin Total Bilirubin Direct Bilirubin AST Alkaline Phosphatase Lactate Dehydrogenase 294 H Troponin T NT-Pro-B Natriuret Pep Total Protein Albumin LDL Cholesterol Direct Vitamin B12 Folate Urine WBC (Auto) Urine Creatinine Urine Total Protein Fluid Glucose Fluid Total Protein 07/18/19 07/18/19 07/18/19 05:40 05:40 10:30 WBC 22.7 H RBC 2.64 L Hgb 8.2 L Hct 24.9 L MCV 95 H MCH RDW 19.7 H Plt Count 94 L Seg Neuts % (Manual) Lymphocytes % (Manual) Nucleated RBC % Seg Neutrophils # Man Lymphocytes # (Manual) PT INR APTT ABG pH 7.457 H ABG pO2 ABG HCO3 26.3 H ABG O2 Saturation ABG Base Excess ABG Hemoglobin 7.8 L Oxyhemoglobin 94.6 L Sodium Potassium Chloride Carbon Dioxide BUN Creatinine Glucose POC Glucose Calcium Phosphorus Magnesium Iron TIBC Ferritin Total Bilirubin Direct Bilirubin 0.7 H AST 94 H Alkaline Phosphatase 159 H Lactate Dehydrogenase Troponin T NT-Pro-B Natriuret Pep Total Protein 5.6 L D Albumin 2.5 L LDL Cholesterol Direct Vitamin B12 Folate Urine WBC (Auto) Urine Creatinine Urine Total Protein Fluid Glucose Fluid Total Protein 07/18/19 07/19/19 07/19/19 Unknown 05:15 05:15 WBC RBC Hgb Hct MCV MCH RDW Plt Count Seg Neuts % (Manual) Lymphocytes % (Manual) Nucleated RBC % Seg Neutrophils # Man Lymphocytes # (Manual) PT INR APTT ABG pH ABG pO2 ABG HCO3 ABG O2 Saturation ABG Base Excess ABG Hemoglobin 11.6 L Oxyhemoglobin 94.3 L Sodium 133 L Potassium Chloride 94.9 L Carbon Dioxide BUN 43 H Creatinine 4.0 H Glucose 118 H POC Glucose Calcium Phosphorus Magnesium 0.20 L* Iron TIBC Ferritin Total Bilirubin Direct Bilirubin AST Alkaline Phosphatase Lactate Dehydrogenase Troponin T NT-Pro-B Natriuret Pep Total Protein Albumin LDL Cholesterol Direct Vitamin B12 Folate Urine WBC (Auto) Urine Creatinine Urine Total Protein Fluid Glucose Fluid Total Protein 07/19/19 07/19/19 07/20/19 05:15 06:00 06:15 WBC 14.6 H RBC 2.57 L Hgb 8.2 L Hct 24.3 L MCV 95 H MCH RDW 19.5 H Plt Count 101 L Seg Neuts % (Manual) Lymphocytes % (Manual) Nucleated RBC % Seg Neutrophils # Man Lymphocytes # (Manual) PT INR APTT ABG pH ABG pO2 91.2 H ABG HCO3 27.5 H ABG O2 Saturation ABG Base Excess ABG Hemoglobin 8.3 L Oxyhemoglobin Sodium Potassium Chloride Carbon Dioxide BUN 61 H Creatinine 4.6 H Glucose 117 H POC Glucose Calcium Phosphorus Magnesium Iron TIBC Ferritin Total Bilirubin Direct Bilirubin AST Alkaline Phosphatase Lactate Dehydrogenase Troponin T NT-Pro-B Natriuret Pep Total Protein Albumin LDL Cholesterol Direct Vitamin B12 Folate Urine WBC (Auto) Urine Creatinine Urine Total Protein Fluid Glucose Fluid Total Protein 07/21/19 07/21/19 07/21/19 05:30 06:15 06:15 WBC 11.8 H RBC 2.45 L Hgb 7.9 L Hct 23.5 L MCV 96 H MCH RDW 19.4 H Plt Count Seg Neuts % (Manual) Lymphocytes % (Manual) Nucleated RBC % Seg Neutrophils # Man Lymphocytes # (Manual) PT INR APTT ABG pH ABG pO2 104.5 H ABG HCO3 27.9 H ABG O2 Saturation ABG Base Excess 3.3 H ABG Hemoglobin 8.2 L Oxyhemoglobin Sodium Potassium 3.3 L Chloride Carbon Dioxide BUN 74 H Creatinine 4.3 H Glucose 127 H POC Glucose Calcium Phosphorus Magnesium Iron TIBC Ferritin Total Bilirubin Direct Bilirubin AST Alkaline Phosphatase Lactate Dehydrogenase Troponin T NT-Pro-B Natriuret Pep Total Protein Albumin LDL Cholesterol Direct Vitamin B12 Folate Urine WBC (Auto) Urine Creatinine Urine Total Protein Fluid Glucose Fluid Total Protein 07/21/19 07/21/19 07/21/19 08:00 08:00 17:51 WBC RBC Hgb Hct MCV MCH RDW Plt Count Seg Neuts % (Manual) Lymphocytes % (Manual) Nucleated RBC % Seg Neutrophils # Man Lymphocytes # (Manual) PT INR APTT ABG pH ABG pO2 ABG HCO3 ABG O2 Saturation ABG Base Excess ABG Hemoglobin Oxyhemoglobin Sodium Potassium 3.2 L Chloride Carbon Dioxide BUN Creatinine Glucose POC Glucose Calcium Phosphorus Magnesium Iron TIBC Ferritin Total Bilirubin Direct Bilirubin AST Alkaline Phosphatase Lactate Dehydrogenase Troponin T NT-Pro-B Natriuret Pep Total Protein Albumin LDL Cholesterol Direct Vitamin B12 960.4 H Folate 6.18 L Urine WBC (Auto) Urine Creatinine Urine Total Protein Fluid Glucose Fluid Total Protein 07/22/19 07/22/19 07/22/19 03:40 06:00 21:45 WBC 12.6 H RBC 2.54 L Hgb 7.8 L Hct 24.2 L MCV 95 H MCH RDW 19.7 H Plt Count Seg Neuts % (Manual) Lymphocytes % (Manual) Nucleated RBC % Seg Neutrophils # Man Lymphocytes # (Manual) PT INR APTT ABG pH ABG pO2 99.4 H ABG HCO3 27.3 H ABG O2 Saturation ABG Base Excess ABG Hemoglobin 9.2 L Oxyhemoglobin Sodium Potassium 3.1 L Chloride Carbon Dioxide BUN 75 H Creatinine 2.9 H Glucose 123 H POC Glucose Calcium Phosphorus Magnesium Iron TIBC Ferritin Total Bilirubin Direct Bilirubin AST Alkaline Phosphatase Lactate Dehydrogenase Troponin T NT-Pro-B Natriuret Pep Total Protein Albumin LDL Cholesterol Direct Vitamin B12 Folate Urine WBC (Auto) Urine Creatinine Urine Total Protein Fluid Glucose Fluid Total Protein 07/23/19 07/24/19 07/24/19 05:30 04:12 07:03 WBC RBC Hgb Hct MCV MCH RDW Plt Count Seg Neuts % (Manual) Lymphocytes % (Manual) Nucleated RBC % Seg Neutrophils # Man Lymphocytes # (Manual) PT INR APTT ABG pH ABG pO2 123.1 H ABG HCO3 27.1 H ABG O2 Saturation ABG Base Excess ABG Hemoglobin 9.3 L Oxyhemoglobin Sodium Potassium 3.1 L 3.4 L Chloride 107.5 H Carbon Dioxide BUN 80 H 70 H Creatinine 2.6 H 1.8 H Glucose 112 H 112 H POC Glucose Calcium Phosphorus Magnesium Iron TIBC Ferritin Total Bilirubin Direct Bilirubin AST Alkaline Phosphatase Lactate Dehydrogenase Troponin T NT-Pro-B Natriuret Pep Total Protein Albumin LDL Cholesterol Direct Vitamin B12 Folate Urine WBC (Auto) Urine Creatinine Urine Total Protein Fluid Glucose Fluid Total Protein 07/24/19 07:03 WBC RBC Hgb Hct MCV MCH RDW Plt Count Seg Neuts % (Manual) Lymphocytes % (Manual) Nucleated RBC % Seg Neutrophils # Man Lymphocytes # (Manual) PT INR APTT ABG pH ABG pO2 ABG HCO3 ABG O2 Saturation ABG Base Excess ABG Hemoglobin Oxyhemoglobin Sodium Potassium Chloride Carbon Dioxide BUN Creatinine Glucose POC Glucose Calcium Phosphorus Magnesium 1.50 L Iron TIBC Ferritin Total Bilirubin Direct Bilirubin AST Alkaline Phosphatase Lactate Dehydrogenase Troponin T NT-Pro-B Natriuret Pep Total Protein Albumin LDL Cholesterol Direct Vitamin B12 Folate Urine WBC (Auto) Urine Creatinine Urine Total Protein Fluid Glucose Fluid Total Protein
--- NOTE | 2019-07-24 11:53 | Progress Note ---
Assessment and Plan Acute Kidney Injury possibly prerenal/ATN, cardiorenal syndrome, diuretics, ACEI, AIN from NSAIDs, ? underlying CKD process, no obstruction Hyperkalemia High Anion Gap Metabolic Acidosis Acute respiratory failure LLL PNA Anemia Hypomagnesemia S/p Cardiac Arrest Acute on chronic systolic CHF Questionable Anoxic Brain Injury Plan: - Cr is trending down, good UOP - if cr cont to improve will remove vascath tomorrow - No acute indication for HD today - S/p Right femoral Vas catheter placement for STAT HD on 07/12/19 - Monitor for signs of renal recovery - Epogen dosing for anemia management - Replete potassium - Secondary GN and vasculitis work up ordered, so far negative for ANCA, SHANNA, normal complement, negative HCV, HBV, HIV, pending anti-GBM, but has rare schisto with elevated LDH, consulted hematology - Renal US mentioned moderate ascites, but no hydronephrosis - Neuro evaluated pt, recommend MRI Brain, f/u recs - S/p US guided paracentesis with removal of 3200 ml on 07/15/19 - Renally dose medications Delmar hernandez MD [phone] Subjective Date of service: 07/24/19 Principal diagnosis: post anoxic brain injury Interval history: was in MRI this AM Objective - Vital Signs Vital signs: Vital Signs - 12hr 07/24/19 07/24/19 07/24/19 00:00 01:00 02:00 Temperature 98.8 F Pulse Rate 94 H 87 81 Pulse Rate [ 94 H From Monitor] Respiratory 20 21 19 Rate Blood Pressure 140/71 141/70 143/65 O2 Sat by Pulse 94 94 92 Oximetry 07/24/19 07/24/19 07/24/19 03:00 04:00 04:39 Temperature 99.3 F Pulse Rate 90 90 94 H Pulse Rate [ 90 From Monitor] Respiratory 17 20 Rate Blood Pressure 149/68 138/66 148/68 O2 Sat by Pulse 93 93 98 Oximetry 07/24/19 07/24/19 07/24/19 05:00 06:00 07:00 Temperature Pulse Rate 92 H 86 Pulse Rate [ From Monitor] Respiratory 19 21 Rate Blood Pressure 135/71 150/71 142/71 O2 Sat by Pulse 94 98 100 Oximetry 07/24/19 07/24/19 07/24/19 08:00 08:14 08:17 Temperature 99.3 F Pulse Rate 91 H 105 H 101 H Pulse Rate [ From Monitor] Respiratory 21 21 Rate Blood Pressure 129/68 129/68 129/68 O2 Sat by Pulse 94 100 100 Oximetry 07/24/19 07/24/19 09:00 09:41 Temperature Pulse Rate 94 H 102 H Pulse Rate [ From Monitor] Respiratory 25 H Rate Blood Pressure 144/67 138/70 O2 Sat by Pulse 99 Oximetry - Lab 07/22/19 06:00 07/24/19 07:03 Most recent lab results ABG pH 7.446 pH Units (7.350-7.450) 07/24/19 04:12 ABG pCO2 40.3 mm Hg 07/24/19 04:12 ABG pO2 123.1 mm Hg (80.0-90.0) H 07/24/19 04:12 ABG HCO3 27.1 mmol/L (20.0-26.0) H 07/24/19 04:12 ABG O2 Saturation 98.5 % (95.0-99.0) 07/24/19 04:12 Calcium 8.7 mg/dL (8.4-10.2) 07/24/19 07:03 Phosphorus 2.70 mg/dL (2.5-4.5) 07/24/19 07:03 Magnesium 1.50 mg/dL (1.7-2.3) L 07/24/19 07:03 Urine Creatinine 106.2 mg/dL (0.1-20.0) H 07/14/19 17:28 Urine Sodium 67 mmol/L 07/14/19 17:28 Urine Total Protein 173 mg/dL (5-11.8) H 07/14/19 16:40 Medications & Allergies - Medications Allergies/Adverse Reactions: Allergies No Known Allergies Allergy (Verified 07/01/19 11:20) Home Medications: Home Medications Medication Instructions Recorded Confirmed Last Taken Type Magnesium Oxide 400 mg PO BIDAC #60 tablet 12/07/16 07/13/19 1 Day Ago Rx ~09/16/17 Thiamine [Vitamin B-1] 100 mg PO QDAY #30 tablet 12/07/16 07/13/19 2 Days Ago Rx ~09/14/17 100 mg Lisinopril [Zestril] 20 mg PO DAILY #30 tablet 09/18/17 07/13/19 Unknown Rx Pantoprazole [Protonix TAB] 40 mg PO BID #60 tablet 09/18/17 07/13/19 Unknown Rx Aspirin [Aspirin BABY CHEW TAB] 81 mg PO QDAY #30 tab.chew 07/05/19 07/13/19 Unknown Rx Furosemide [Lasix TAB] 40 mg PO BID #60 tablet 07/05/19 07/13/19 Unknown Rx Nitroglycerin [Nitrostat] 0.4 mg SL .Q5MIN PRN #10 tablet 07/05/19 07/13/19 Unknown Rx Spironolactone [Aldactone] 12.5 mg PO QDAY #30 tablet 07/05/19 07/13/19 Unknown Rx carvediloL [Coreg] 6.25 mg PO BID #60 tablet 07/05/19 07/13/19 Unknown Rx lisinopriL [Zestril TAB] 20 mg PO QDAY #30 tablet 07/05/19 07/13/19 Unknown Rx Active Medications: Generic Name Dose Route Start Last Admin Trade Name Freq PRN Reason Stop Dose Admin Acetaminophen 650 mg 07/20/19 16:56 07/22/19 01:58 Tylenol FEEDTUBE 650 mg Q6H PRN Administration Fever >101 Albuterol 2.5 mg 07/14/19 04:54 07/16/19 13:42 Proventil IH 2.5 mg Q4HRT PRN Administration Shortness Of Breath Amlodipine Besylate 10 mg 07/23/19 11:00 07/24/19 09:41 Amlodipine PO 10 mg QDAY TERRELL Administration Lipase/Protease/Amylase 1 each 07/18/19 13:20 Pancrenarinder Moeller 10,500 Unit FEEDTUBE PRN PRN For Clogged Feeding Tube Clonidine HCl 0.1 mg 07/23/19 11:00 07/24/19 09:41 Catapres PO 0.1 mg Q12HR TERRELL Administration Epoetin Barney 10,000 unit 07/14/19 10:13 07/18/19 22:04 Procrit IV 10,000 unit CHEMA PRN Administration DIALYSIS Haloperidol Lactate 5 mg 07/12/19 21:35 07/12/19 21:09 Haldol IV 5 mg Q1H PRN Administration Unrespon. to mult. doses BZD's Hydralazine HCl 10 mg 07/23/19 10:46 07/23/19 10:59 Apresoline IV 10 mg Q4HR PRN Administration BP >160/100 Sodium Chloride 100 mls @ 999 mls/hr 07/16/19 12:11 Nacl 0.9% IV CHEMA PRN Hypotension Vasopressin 20 unit/ Sodium 101 mls @ 9.09 mls/hr 07/17/19 15:00 Chloride IV TITR TERRELL Protocol 0.03 UNITS/MIN Metronidazole 500 mg in 100 mls @ 100 mls/hr 07/17/19 17:00 07/24/19 06:15 Flagyl 500 Mg/100 Ml IV 100 mls/hr Q8HR TERRELL Administration Protocol Cefepime HCl 1 gm in 100 mls @ 200 mls/hr 07/17/19 17:20 07/23/19 16:30 Cefepime/Ns 1 Gm/100 Ml IV 200 mls/hr Q24H TERRELL Administration Magnesium Sulfate 2 gm in 50 mls @ 25 mls/hr 07/24/19 10:00 07/24/19 09:46 Magnesium Sulfate 2gm/50ml IV 07/24/19 11:59 25 mls/hr ONCE ONE Administration Lansoprazole 30 mg 07/18/19 11:00 07/24/19 09:41 Prevacid Solutab FEEDTUBE 30 mg QDAY TERRELL Administration Scopolamine 1 each 07/23/19 11:00 07/23/19 11:02 Transderm-Scop TD 1 each Q3D TERRELL Administration Simple Syrup 15 ml 07/18/19 13:20 Simple Syrup FEEDTUBE PRN PRN Hypoglycemia Simple Syrup 30 ml 07/18/19 13:20 Simple Syrup FEEDTUBE PRN PRN Hypoglycemia Sodium Bicarbonate 325 mg 07/18/19 13:20 Sodium Bicarbonate FEEDTUBE PRN PRN For Clogged Feeding Tube Thiamine HCl 100 mg 07/22/19 10:00 07/24/19 09:42 Vitamin B-1 PO 100 mg QDAY TERRELL Administration
[2019-07-24] MEDS: HALOPERIDOL LACTATE 5 MG/1 ML INJ IV PRN (12:00)
[2019-07-24] MEDS ORDERED: LORazepam 2 MG/ML VIAL IV ONE (12:15)
--- NOTE | 2019-07-24 12:43 | Progress Note ---
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 Subjective Date of service: 07/24/19 Principal diagnosis: post anoxic brain injury Interval history: Patient remains intubated, unresponsive on the vent. Objective Vital Signs Temp Pulse Pulse Resp BP Pulse Ox 07/24/19 09:41 102 H 138/70 07/24/19 09:00 94 H 25 H 144/67 99 07/24/19 08:17 101 H 21 129/68 100 07/24/19 08:14 105 H 129/68 100 07/24/19 08:00 99.3 F 91 H 21 129/68 94 07/24/19 07:00 86 21 142/71 100 07/24/19 06:00 150/71 98 07/24/19 05:00 92 H 19 135/71 94 07/24/19 04:39 94 H 148/68 98 07/24/19 04:00 99.3 F 90 90 20 138/66 93 07/24/19 03:00 90 17 149/68 93 07/24/19 02:00 81 19 143/65 92 07/24/19 01:00 87 21 141/70 94 07/24/19 00:00 98.8 F 94 H 94 H 20 140/71 94 07/23/19 23:50 81 149/74 99 07/23/19 23:30 97 H 11 L 149/74 96 07/23/19 23:00 97 H 19 140/68 99 07/23/19 22:30 90 20 140/68 91 07/23/19 22:18 103 H 20 159/87 99 07/23/19 22:16 93 H 22 159/87 98 07/23/19 22:00 108 H 21 162/85 88 07/23/19 21:46 104 H 23 159/87 98 07/23/19 21:32 106 H 159/87 07/23/19 21:30 133 H 23 150/77 99 07/23/19 21:16 99 H 22 150/77 99 07/23/19 21:00 99 H 20 150/77 90 07/23/19 20:46 96 H 19 146/73 99 07/23/19 20:30 97 H 20 146/73 93 07/23/19 20:16 100 H 22 143/71 99 07/23/19 20:00 98.6 F 94 H 94 H 22 143/71 91 07/23/19 19:41 96 H 141/73 99 07/23/19 19:00 98 H 21 137/71 96 07/23/19 18:00 110 H 15 150/81 96 07/23/19 17:50 109 H 150/81 99 07/23/19 17:00 104 H 26 H 146/73 87 07/23/19 16:00 99.9 F H 109 H 113 H 23 140/59 90 07/23/19 15:00 96 H 24 143/62 91 07/23/19 14:00 105 H 23 137/68 94 07/23/19 13:00 102 H 23 130/67 100 - Physical Examination General: Other (unresponsive on the vent) HEENT: Positive: Normocephaly Cardiac: Positive: Reg Rate and Rhythm - Labs and Meds Comprehensive Metabolic Panel 07/24/19 Range/Units 07:03 Sodium 145 D (137-145) mmol/L Potassium 3.4 L (3.6-5.0) mmol/L Chloride 107.5 H (98-107) mmol/L Carbon Dioxide 23 (22-30) mmol/L BUN 70 H (9-20) mg/dL Creatinine 1.8 H (0.8-1.5) mg/dL Glucose 112 H (75-100) mg/dL Calcium 8.7 (8.4-10.2) mg/dL
--- NOTE | 2019-07-24 14:42 | Magnetic Resonance Report ---
MRI BRAIN WITHOUT CONTRAST INDICATION / CLINICAL INFORMATION: post anoxic brain injury , intubated unresponsive. TECHNIQUE: Multisequence, multiplanar images were obtained. COMPARISON: CT head dated 07/19/2019. MR brain dated 09/16/2017 FINDINGS: CEREBRAL and CEREBELLAR HEMISPHERES: An 8 mm focus of diffusion restriction is identified in the righ t posterior temporal white matter adjacent to the temporal horn of the ventricular system on diffusio n image 15. No other areas of diffusion restriction are identified. No evidence for diffuse anoxic in jury. Mild diffuse volume loss and moderate chronic microangiopathy in the white matter are stable. 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 No acute h emorrhage. No extra-axial fluid collection. VENTRICLES: Normal in size and configuration for age. VISUALIZED ORBITS: No significant abnormality. VISUALIZED PARANASAL SINUSES: There is near complete opacification of all paranasal sinuses except th e right frontal sinus. There is diffusion restriction overlying the paranasal sinuses which could rep resent acute sinusitis. ADDITIONAL FINDINGS: None. IMPRESSION: Volume loss and chronic white matter changes. An 8 mm focus of subacute ischemia is identified in the right posterior temporal white matter as desc ribed. No findings to suggest diffuse anoxic injury. Pansinusitis. Correlate for acute sinusitis. Signer Name: William Dean Jr, MD Signed: 07/24/2019 2:38 PM Workstation Name: [id number]
--- NOTE | 2019-07-24 15:25 | Progress Note ---
Assessment and Plan Cultures: 07/12/2019 blood culture: Negative 07/14/2019 urine culture: mixed growth 07/17/2019 tracheal aspirate: E coli A/P: 48/M with deafness, HTN, CHF, anxiety, depression, COPD was admitted to the hospital on 07/12/2019 with shortness of breath, found to have hypoxia and renal failure and was started on urgent dialysis, now with: #Shock, following PEA cardiac arrest #Bilateral multifocal pneumonia, acute respiratory failure: Possibly aspiration v/s lung contusion from CPR following cardiac arrest. Culture growing GNR. Empiric cefepime, vancomycin and Flagyl for now, anticipate stopping vancomycin soon. #Acute renal failure: Dialysis requiring. Nephrology following, evaluating for glomerulonephritis and vasculitis. Patient also has rare schistocytes in peripheral blood along with few eosinophils in urine. Renally dose abx. #CHF #Acute encephalopathy: post arrest. Recs: - Empiric renally dosed cefepime, Flagyl for now Likely 8 day course. - follow up fever and WBC - possible central fevers - Poor prognosis. Will follow. Salo Morgan MD [facility] M: [phone] O: [phone] F: [phone] Subjective Date of service: 07/24/19 Principal diagnosis: post anoxic brain injury Interval history: Afebrile now. No evidence of anxoic brain injury on MRI. Objective - Exam Narrative Exam: Constitutional: Intubated Head, Ears, Nose: Normocephalic, atraumatic. External ears, nose normal Cardiovascular: S1, S2 normal. Respiratory: Good air entry, clear to auscultation bilaterally GI: Soft, non-tender; bowel sounds + Musculoskeletal: No pedal edema, no cyanosis. Skin: No rash or abscess Hem/Lymphatic: No palpable cervical or supraclavicular nodes. No lymphangitis Psych: None-responsive. Neurological: Non-responsive - Constitutional Vitals: Vital Signs Temp Pulse Resp BP Pulse Ox 99.3 F 112 H 24 138/74 96 07/24/19 08:00 07/24/19 13:00 07/24/19 13:00 07/24/19 11:00 07/24/19 13:00 Temperature -Last 24 Hours Temperature 99.3 F Temperature 99.3 F Temperature 98.8 F Temperature 98.6 F Temperature 99.9 F - Labs CBC & Chem 7: 07/22/19 06:00 07/24/19 07:03 Labs: Abnormal lab results 07/24/19 07/24/19 07/24/19 Range/Units 04:12 07:03 07:03 ABG pO2 123.1 H (80.0-90.0) mm Hg ABG HCO3 27.1 H (20.0-26.0) mmol/L ABG Hemoglobin 9.3 L (14.0-18.0) gm/dl Potassium 3.4 L (3.6-5.0) mmol/L Chloride 107.5 H (98-107) mmol/L BUN 70 H (9-20) mg/dL Creatinine 1.8 H (0.8-1.5) mg/dL Glucose 112 H (75-100) mg/dL Magnesium 1.50 L (1.7-2.3) mg/dL
--- NOTE | 2019-07-24 16:24 | Progress Note ---
Assessment and Plan Assessment and plan: 48-year-old man with a history of being deaf (writes to communicate) HTN, Systolic CHF(EF 20%), anxiety, depression COPD and GERD who presented to [facility] ED with severe SOB. EMS found patient to have a pulse oximetry of 80% on room air, improved to 92% on 2 L of supplemental oxygen. Patient was confused and provided limited history. Patient refused BiPAP. Patient given 40 mg of Lasix IV and and EMS gave 40mg iv lasix prior to arrival. Patient was found to have left lower lobe pneumonia, complicated by acute respiratory failure, severe Uremia, hyponatremia, hyperkalemia, metabolic acidosis. Patient admitted to medical floor for medical stabilization and treatment due to high risk for cardiopul monary and renal decompensation. Nephrology team consulted in ED for urgent dialysis. Patient initiated on pneumonia protocol with IV antibiotic therapy. Patient treated with calcium gluconate and Kayexalate for hyperkalemia in ED. EKG showed no changes. Patient mental status so poor he had to be put in restraints to prevent for pulling and removing O2. Next day, patient remained confused, so He went down for CT head and he must've removed O2 mask while in CT scanner or had a fatal cardiac arrhythmia which he was experiencing NSVT/aflutter with RVR the night before. This led to Cardiac arrest. ED physician was the first to respond and saw Asystole on the monitor, ACLS done and when I arrived he was in PEA. He was a difficult Intubation as he had bleeding in the Endotracheal area due to Eliquis which was started on 07/16/2019. He was intubated by ED physician. Pulse was restored and he was sent to the ICU, where he had another Cardiac arrest with PEA, ACLS done again and pulse meg red. Overnight he was posturing. He is comatose without any sedative. -History of deafness * pCXR showed bilateral pleural effusion with significant pulmonary congestion. EKG showed no ST elevation. * Initial Labs: WBC 14.7, hgb 9.7, plt 124, Na 125, k 5.5, co2 13, BUN 70, Cr 8.8 * brain MRI shows volume loss and chronic white matter changes. 8 mm focus of subacute ischemia is identified in the right posterior temporal white matter. No findings to suggest diffuse anoxic injury. Acute on chronic systolic heart failure decompensation leading to respiratory failure: Meds optimized. Improving with dialysis. Bilateral pneumonia; continue antibiotics per ID Acute on chronic CHF, EF 25%. Medications optimized per cardiology, patient now appears to be improving Fluid overload, status post paracentesis on 07/15, 3.2 L removed. Received dialysis. Acute hypoxic respiratory failure on MV > 96 hours, continue mechanical ventilator Severe ARF due to ATN, getting dialysis as needed, been evaluated on a day-to-day basis. Nephrology input appreciated, has good urine output. Plan to remove dialysis catheter if patient continues to improve. acute metabolic encephalopathy, acute metabolic encephalopathy, poa, thought to be due to severe Uremia, but uremia improved and he still not responsive , needing restraints, CVA; noted on MRI, awaiting neurology recommendations Anemia appears AOCD due to renal dysfunction: continue to monitor cbc Thrombocytopenia: Likely due to alcohol abuse, resolved Morbid Obesity, bmi 44.1: extension course counselor on lifestyle modification if patient improves Transient A. fib/a flutter on NSVT. Now resolved, no further medication or work-up required Hypokalemia; repleted Hypertensive urgency; BP meds adjusted, improving History of nonadherence, alcohol abuse, plan to extension course counselor patient to be his mentation improves. full code DVT ppx: Michelle Discussed the goals of care and updated his father and his father's girlfriend. Explained the very poor prognosis. They would like to have family meeting with other family members and will return to us with a plan. Explained the options of hospice and removal of right support versus trach and PEG and mcfp. They are leaning towards trach PEG and mcfp. Still waiting to hear their decision. Advanced care planning performed for 30 minutes. Critical care time 35 minutes. History Interval history: No fevers No vomiting no seizure-like activity No diarrhea No agitation No obvious discomfort Hospitalist Physical - Physical exam Narrative exam: General.: Appears ill, not responsive HEENT: Moist mucous membranes, extraocular muscles intact, no lymphadenopathy Neck: supple Cardiac: S1-S2 heard Lungs: Rhonchorous and ventilated breath sounds. Abdomen: soft , nontender, nondistended, bowel sounds positive Extremities: no edema clubbing or cyanosis Skin: no rash or lesions Neurologic: Intubated, not responsive, has some spontaneous movements - Constitutional Vitals: Temp Pulse Resp BP Pulse Ox 99.3 F 112 H 24 138/74 96 07/24/19 08:00 07/24/19 13:00 07/24/19 13:00 07/24/19 11:00 07/24/19 13:00 General appearance: Present: no acute distress Results - Labs CBC & Chem 7: 07/22/19 06:00 07/24/19 07:03 Labs: Laboratory Last Values WBC 12.6 K/mm3 (4.5-11.0) H 07/22/19 06:00 RBC 2.54 M/mm3 (3.65-5.03) L 07/22/19 06:00 Hgb 7.8 gm/dl (11.8-15.2) L 07/22/19 06:00 Hct 24.2 % (35.5-45.6) L 07/22/19 06:00 MCV 95 fl (84-94) H 07/22/19 06:00 MCH 31 pg (28-32) 07/22/19 06:00 MCHC 32 % (32-34) 07/22/19 06:00 RDW 19.7 % (13.2-15.2) H 07/22/19 06:00 Plt Count 233 K/mm3 (140-440) 07/22/19 06:00 Lymph % (Auto) [facility] 07/13/19 04:28 [place] % (Auto) [facility] 07/13/19 04:28 Eos % (Auto) [facility] 07/13/19 04:28 Baso % (Auto) [facility] 07/13/19 04:28 Lymph # [facility] 07/13/19 04:28 [place] # [facility] 07/13/19 04:28 Eos # [facility] 07/13/19 04:28 Baso # [facility] 07/13/19 04:28 Add Manual Diff Complete 07/14/19 07:16 Total Counted 100 07/14/19 07:16 Seg Neutrophils % [facility] 07/13/19 04:28 Seg Neuts % (Manual) 89.0 % (40.0-70.0) H 07/14/19 07:16 Band Neutrophils % 0 % 07/14/19 07:16 Lymphocytes % (Manual) 4.0 % (13.4-35.0) L 07/14/19 07:16 Reactive Lymphs % (Man) 0 % 07/14/19 07:16 Monocytes % (Manual) 7.0 % (0.0-7.3) 07/14/19 07:16 Eosinophils % (Manual) 0 % (0.0-4.3) 07/14/19 07:16 Basophils % (Manual) 0 % (0.0-1.8) 07/14/19 07:16 Metamyelocytes % 0 % 07/14/19 07:16 Myelocytes % 0 % 07/14/19 07:16 Promyelocytes % 0 % 07/14/19 07:16 Blast Cells % 0 % 07/14/19 07:16 Nucleated RBC % Not Reportable 07/14/19 07:16 Seg Neutrophils # [facility] 07/13/19 04:28 Seg Neutrophils # Man 7.7 K/mm3 (1.8-7.7) 07/14/19 07:16 Band Neutrophils # 0.0 K/mm3 07/14/19 07:16 Lymphocytes # (Manual) 0.3 K/mm3 (1.2-5.4) L 07/14/19 07:16 Abs React Lymphs (Man) 0.0 K/mm3 07/14/19 07:16 Monocytes # (Manual) 0.6 K/mm3 (0.0-0.8) 07/14/19 07:16 Eosinophils # (Manual) 0.0 K/mm3 (0.0-0.4) 07/14/19 07:16 Basophils # (Manual) 0.0 K/mm3 (0.0-0.1) 07/14/19 07:16 Metamyelocytes # 0.0 K/mm3 07/14/19 07:16 Myelocytes # 0.0 K/mm3 07/14/19 07:16 Promyelocytes # 0.0 K/mm3 07/14/19 07:16 Blast Cells # 0.0 K/mm3 07/14/19 07:16 WBC Morphology Not Reportable 07/14/19 07:16 Hypersegmented Neuts Not Reportable 07/14/19 07:16 Hyposegmented Neuts Not Reportable 07/14/19 07:16 Hypogranular Neuts Not Reportable 07/14/19 07:16 Smudge Cells Not Reportable 07/14/19 07:16 Toxic Granulation Not Reportable 07/14/19 07:16 Toxic Vacuolation Not Reportable 07/14/19 07:16 Dohle Bodies Not Reportable 07/14/19 07:16 Pelger-Huet Anomaly Not Reportable 07/14/19 07:16 Mack Rods Not Reportable 07/14/19 07:16 Platelet Estimate Consistent w auto 07/14/19 07:16 Clumped Platelets Not Reportable 07/14/19 07:16 Plt Clumps, EDTA Not Reportable 07/14/19 07:16 Large Platelets Not Reportable 07/14/19 07:16 Giant Platelets Not Reportable 07/14/19 07:16 Platelet Satelliting Not Reportable 07/14/19 07:16 Plt Morphology Comment Not Reportable 07/14/19 07:16 RBC Morphology Not Reportable 07/14/19 07:16 Dimorphic RBCs Not Reportable 07/14/19 07:16 Polychromasia Not Reportable 07/14/19 07:16 Hypochromasia Not Reportable 07/14/19 07:16 Poikilocytosis Not Reportable 07/14/19 07:16 Anisocytosis 1+ 07/14/19 07:16 Microcytosis Not Reportable 07/14/19 07:16 Macrocytosis Not Reportable 07/14/19 07:16 Spherocytes Not Reportable 07/14/19 07:16 Pappenheimer Bodies Not Reportable 07/14/19 07:16 Sickle Cells Not Reportable 07/14/19 07:16 Target Cells Few 07/14/19 07:16 Tear Drop Cells Not Reportable 07/14/19 07:16 Ovalocytes Not Reportable 07/14/19 07:16 Helmet Cells Not Reportable 07/14/19 07:16 [place] Bodies Not Reportable 07/14/19 07:16 [place] Rings Not Reportable 07/14/19 07:16 Yolis Cells Not Reportable 07/14/19 07:16 Bite Cells Not Reportable 07/14/19 07:16 Crenated Cell Not Reportable 07/14/19 07:16 Elliptocytes Not Reportable 07/14/19 07:16 Acanthocytes (Spur) Not Reportable 07/14/19 07:16 Rouleaux Not Reportable 07/14/19 07:16 Hemoglobin C Crystals Not Reportable 07/14/19 07:16 Schistocytes Not Reportable 07/14/19 07:16 Malaria parasites Not Reportable 07/14/19 07:16 Víctor Bodies Not Reportable 07/14/19 07:16 Hem Pathologist Commnt No 07/14/19 07:16 PT 19.8 Sec. (12.2-14.9) H 07/12/19 15:08 INR 1.65 (0.87-1.13) H 07/12/19 15:08 APTT 47.8 Sec. (24.2-36.6) H 07/12/19 15:08 ABG pH 7.446 pH Units (7.350-7.450) 07/24/19 04:12 ABG pCO2 40.3 mm Hg 07/24/19 04:12 ABG pO2 123.1 mm Hg (80.0-90.0) H 07/24/19 04:12 ABG HCO3 27.1 mmol/L (20.0-26.0) H 07/24/19 04:12 ABG O2 Saturation 98.5 % (95.0-99.0) 07/24/19 04:12 ABG O2 Content 12.7 (0.0-44) 07/24/19 04:12 ABG Base Excess 2.8 mmol/L (-2.0-3.0) 07/24/19 04:12 ABG Hemoglobin 9.3 gm/dl (14.0-18.0) L 07/24/19 04:12 ABG Carboxyhemoglobin 2.2 % (0.0-5.0) 07/24/19 04:12 ABG Methemoglobin 0.5 % (0.0-1.5) 07/24/19 04:12 Oxyhemoglobin 95.8 % (95.0-99.0) 07/24/19 04:12 FiO2 35 % 07/24/19 04:12 Sodium 145 mmol/L (137-145) D 07/24/19 07:03 Potassium 3.4 mmol/L (3.6-5.0) L 07/24/19 07:03 Chloride 107.5 mmol/L (98-107) H 07/24/19 07:03 Carbon Dioxide 23 mmol/L (22-30) 07/24/19 07:03 Anion Gap 18 mmol/L 07/24/19 07:03 BUN 70 mg/dL (9-20) H 07/24/19 07:03 Creatinine 1.8 mg/dL (0.8-1.5) H 07/24/19 07:03 Estimated GFR 49 ml/min 07/24/19 07:03 BUN/Creatinine Ratio 39 % 07/24/19 07:03 Glucose 112 mg/dL (75-100) H 07/24/19 07:03 POC Glucose 122 (70-105) H 07/17/19 12:52 Calcium 8.7 mg/dL (8.4-10.2) 07/24/19 07:03 Phosphorus 2.70 mg/dL (2.5-4.5) 07/24/19 07:03 Magnesium 1.50 mg/dL (1.7-2.3) L 07/24/19 07:03 Iron 15 ug/dL (49-181) L 07/15/19 06:30 TIBC 186 mcg/dL (250-450) L 07/15/19 06:30 Ferritin 428.2 ng/mL (13.0-400.0) H 07/15/19 06:30 Total Bilirubin 1.10 mg/dL (0.1-1.2) 07/18/19 05:40 Direct Bilirubin 0.7 mg/dL (0-0.2) H 07/18/19 05:40 Indirect Bilirubin 0.4 mg/dL 07/18/19 05:40 AST 94 units/L (5-40) H 07/18/19 05:40 ALT 16 units/L (7-56) 07/18/19 05:40 Alkaline Phosphatase 159 units/L (35-129) H 07/18/19 05:40 Lactate Dehydrogenase 294 units/L (91-180) H 07/18/19 05:40 Total Creatine Kinase 59 units/L (55-170) 07/14/19 07:16 Troponin T 0.188 ng/mL (0.00-0.029) H* 07/12/19 17:04 NT-Pro-B Natriuret Pep > 41159 pg/mL (0-450) H 07/12/19 15:08 Total Protein 5.6 g/dL (6.3-8.2) L D 07/18/19 05:40 Albumin 2.5 g/dL (3.9-5) L 07/18/19 05:40 Albumin/Globulin Ratio 0.8 % 07/18/19 05:40 Triglycerides 128 mg/dL (2-149) 07/12/19 15:08 Cholesterol 121 mg/dL (50-199) 07/12/19 15:08 LDL Cholesterol Direct 40 mg/dL (50-130) L 07/12/19 15:08 HDL Cholesterol 44 mg/dL (40-59) 07/12/19 15:08 Cholesterol/HDL Ratio 2.75 % 07/12/19 15:08 Vitamin B12 960.4 pg/mL (211-911) H 07/21/19 08:00 Folate 6.18 ng/mL (7.3-26.0) L 07/21/19 08:00 Procalcitonin 8.19 ng/mL (<0.15) 07/23/19 05:30 Urine Color Eugenia (Yellow) 07/14/19 17:28 Urine Turbidity Slightly-cloudy (Clear) 07/14/19 17:28 Urine pH 5.0 (5.0-7.0) 07/14/19 17:28 Ur Specific [place] 1.014 (1.003-1.030) 07/14/19 17:28 Urine Protein 100 mg/dl mg/dL (Negative) 07/14/19 17:28 Urine Glucose (UA) Neg mg/dL (Negative) 07/14/19 17:28 Urine Ketones Neg mg/dL (Negative) 07/14/19 17:28 Urine Blood Sm (Negative) 07/14/19 17:28 Urine Nitrite Neg (Negative) 07/14/19 17:28 Urine Bilirubin Neg (Negative) 07/14/19 17:28 Urine Urobilinogen < 2.0 mg/dL (<2.0) 07/14/19 17:28 Ur Leukocyte Esterase Neg (Negative) 07/14/19 17:28 Urine WBC (Auto) 31.0 /HPF (0.0-6.0) H 07/14/19 17:28 Urine RBC (Auto) 3.0 /HPF (0.0-6.0) 07/14/19 17:28 U Epithel Cells (Auto) < 1.0 /HPF (0-13.0) 07/14/19 17:28 Urine Bacteria (Auto) 1+ /HPF (Negative) 07/14/19 17:28 Urine Mucus Few /HPF 07/14/19 17:28 Urine Yeast (Budding) Few /HPF 07/14/19 17:28 Urine Eosinophils Rare seen (None Seen) 07/14/19 17:28 Urine Creatinine 106.2 mg/dL (0.1-20.0) H 07/14/19 17:28 Protein/Creatinin Ratio 1.66 07/14/19 16:40 Urine Sodium 67 mmol/L 07/14/19 17:28 Urine Urea Nitrogen 100 07/14/19 17:28 Urine Total Protein 173 mg/dL (5-11.8) H 07/14/19 16:40 Fluid Type Paracentesis 07/14/19 10:45 Fluid Color Bloody 07/14/19 10:45 Fluid Appearance Bloody 07/14/19 10:45 Fluid WBC 120 /mm3 07/14/19 10:45 Fluid RBC 58436 /mm3 07/14/19 10:45 Fluid Seg Neutrophils 33.0 % 07/14/19 10:45 Fluid Lymphocytes 17.0 % 07/14/19 10:45 Fluid Reactive Lymphs 0 % 07/14/19 10:45 Fluid Monocytes 50.0 % 07/14/19 10:45 Fluid Eosinophils 0 % 07/14/19 10:45 Fluid Basophils 0 % 07/14/19 10:45 Fluid Glucose 93 mg/dL (40-70) H 07/14/19 10:45 Fluid Total Protein 4.7 (15.0-45.0) L 07/14/19 10:45 Fluid LDH 07/14/19 10:45 Random Vancomycin 14.5 ug/mL (0-40.0) 07/19/19 05:15 SHANNA Screen Negative (Negative) 07/14/19 11:50 Proteinase 3 (PR3) Ab <1.0 AI (<1.0) 07/14/19 11:50 Myeloperoxidase Ab <1.0 AI (<1.0) 07/14/19 11:50 Complement C3 124 mg/dL (82-185) 07/14/19 11:50 Complement C4 28 mg/dL (15-53) 07/14/19 11:50 Hepatitis A IgM Ab Non-reactive (NonReactive) 07/12/19 17:49 Hep Bs Antigen Non-reactive (Negative) 07/14/19 11:50 Hep B Core IgM Ab Non-reactive (NonReactive) 07/12/19 17:49 Hepatitis C Antibody Non-reactive (NonReactive) 07/14/19 11:50 HIV-1 Antibody See scanned result 07/14/19 11:50 HIV-2 Ab (Immunoblot) See scanned result 07/14/19 11:50 Schistocytes Smear Rare 07/18/19 05:40 Active Medications - Current Medications Current Medications: Generic Name Dose Route Start Last Admin Trade Name Freq PRN Reason Stop Dose Admin Acetaminophen 650 mg 07/20/19 16:56 07/22/19 01:58 Tylenol FEEDTUBE 650 mg Q6H PRN Administration Fever >101 Albuterol 2.5 mg 07/14/19 04:54 07/16/19 13:42 Proventil IH 2.5 mg Q4HRT PRN Administration Shortness Of Breath Amlodipine Besylate 10 mg 07/23/19 11:00 07/24/19 09:41 Amlodipine PO 10 mg QDAY TERRELL Administration Lipase/Protease/Amylase 1 each 07/18/19 13:20 Pancreaze 10,500 Unit FEEDTUBE PRN PRN For Clogged Feeding Tube Clonidine HCl 0.1 mg 07/23/19 11:00 07/24/19 09:41 Catapres PO 0.1 mg Q12HR TERRELL Administration Epoetin Barney 10,000 unit 07/14/19 10:13 07/18/19 22:04 Procrit IV 10,000 unit CHEMA PRN Administration DIALYSIS Haloperidol Lactate 5 mg 07/12/19 21:35 07/24/19 12:00 Haldol IV 5 mg Q1H PRN Administration Unrespon. to mult. doses BZD's Hydralazine HCl 10 mg 07/23/19 10:46 07/23/19 10:59 Apresoline IV 10 mg Q4HR PRN Administration BP >160/100 Sodium Chloride 100 mls @ 999 mls/hr 07/16/19 12:11 Nacl 0.9% IV CHEMA PRN Hypotension Vasopressin 20 unit/ Sodium 101 mls @ 9.09 mls/hr 07/17/19 15:00 Chloride IV TITR TERRELL Protocol 0.03 UNITS/MIN Metronidazole 500 mg in 100 mls @ 100 mls/hr 07/17/19 17:00 07/24/19 13:10 Flagyl 500 Mg/100 Ml IV 100 mls/hr Q8HR TERRELL Administration Protocol Cefepime HCl 1 gm in 100 mls @ 200 mls/hr 07/17/19 17:20 07/23/19 16:30 Cefepime/Ns 1 Gm/100 Ml IV 200 mls/hr Q24H TERRELL Administration Lansoprazole 30 mg 07/18/19 11:00 07/24/19 09:41 Prevacid Solutab FEEDTUBE 30 mg QDAY TERRELL Administration Scopolamine 1 each 07/23/19 11:00 07/23/19 11:02 Transderm-Scop TD 1 each Q3D TERRELL Administration Simple Syrup 15 ml 07/18/19 13:20 Simple Syrup FEEDTUBE PRN PRN Hypoglycemia Simple Syrup 30 ml 07/18/19 13:20 Simple Syrup FEEDTUBE PRN PRN Hypoglycemia Sodium Bicarbonate 325 mg 07/18/19 13:20 Sodium Bicarbonate FEEDTUBE PRN PRN For Clogged Feeding Tube Thiamine HCl 100 mg 07/22/19 10:00 07/24/19 09:42 Vitamin B-1 PO 100 mg QDAY TERRELL Administration Nutrition/Malnutrition Assess - Dietary Evaluation Nutrition/Malnutrition Findings: Nutrition Notes Start: 07/18/19 12:09 Freq: Status: Active Protocol: Document 07/24/19 10:53 (Rec: 07/24/19 10:57 MK [id number]) Co-Sign 07/24/19 10:53 LP Nutrition Notes Initial or Follow up Reassessment Current Diagnosis Acute Kidney Injury, Hypertension,Heart Failure, Respiratory Failure Other Pertinent Diagnosis on HD , metabolic acidosis, pnuemonia Current Diet Nepro at 41ml/hr Labs/Tests K 3.4 BUN 70 Cr 1.8 Pertinent Medications Reviewed Height 5 ft 10 in Weight 102 kg [place] Body Weight (kg) 75.45 BMI 32.2 Subjective/Other Information Pt tolerating Nepro at 41ml/hr . Pt remains on vent. Percent of energy/protein needs met: 100%/53% Burn Absent Trauma Absent GI Symptoms None Difficulty In Swallowing,Chewing Current % PO Negligible Minimum of two criteria Yes Energy Intake (severe) < or equal to 50% Estimated Energy Requirement > or equal to 5 days Muscle Mass Mild Depletion (non-severe) Fluid Accumulation Moderate to Severe (severe) Reduced School Principal Strength Measurably Reduced (severe) #2 Nutrition Diagnosis Malnutrition Diagnosis Progress(for reassessment Continues documentation) #1 Nutrition Diagnosis Inadequate oral intake Diagnosis Progress(for reassessment Continues documentation) Is patient on ventilator? Yes Is Patient Ambulatory and/or Out of Bed No REE-([facility]-confined to bed) 2272.980 Kcal/Kg value to use for calculation 17 Approximate Energy Requirements Using 1734 kcal/Kg Calculation Used for Recommendations Kcal/kg Additional Notes Protein needs: 150 g (> 2 g/ kgIBW) Fluid needs: 1ml/kcal or per MD Nutrition Intervention Change Diet Order: TF Nutrition Support: Nepro 1.8 at 41 ml/hr. Water flush of 130 ml q4h. Kcal 1,771 Protein (gm) 80 Fluid (mL) 715 Goal #1 Meet at least 75% of protein and energy needs Anticipated Discharge Needs: unble to determine at this time Follow-Up By: 07/31/19 Additional Comments Follow for stable TF tolerance
[2019-07-24] MEDS: CEFEPIME/NS 1 GM/100 ML 1 GM/100 ML BAG IV SCH (17:30)
[2019-07-25 04:36] LABS: Hemoglobin 7.5 gm/dl (11.8-15.2); Mean Corpuscular HGB Conc 33 % (32-34); Mean Corpuscular Volume 96 fl (84-94); Platelet Count 333 K/mm3 (140-440); Red Blood Count 2.39 M/mm3 (3.65-5.03); Red Cell Distribution Width 19.4 % (13.2-15.2)
[2019-07-25 04:54] LABS: BUN/Creatinine Ratio 41; Blood Urea Nitrogen 62 mg/dL (9-20); Calcium 8.8 mg/dL (8.4-10.2); Hemolysis Index 13
[2019-07-25 05:50] LABS: ABG Base Excess 3.1 mmol/L (-2.0-3.0); ABG HCO3 27.2 mmol/L (20.0-26.0); ABG Methemoglobin 0.5 % (0.0-1.5); ABG Oxygen Saturation 97.1 % (95.0-99.0); ABG PCO2 39.4 mm Hg; ABG PH 7.457 pH Units (7.350-7.450); ABG PO2 75.5 mm Hg (80.0-90.0)
[2019-07-25 06:34] LABS: Anisocytosis Few; Basophils % (Manual) 0 % (0.0-1.8); Total Cells Counted 100
[2019-07-25 06:35] LABS: Hypochromasia 1+; Platelet Estimate Consistent w Auto; Schistocytes Rare
[2019-07-25] MEDS: metroNIDAZOLE/NS 500 MG/100 ML 500 MG/100 ML BAG IV SCH ×3 (07:18→22:37)
[2019-07-25] MEDS: LORazepam 2 MG/ML VIAL IV PRN ×2 (08:45→16:42)
--- NOTE | 2019-07-25 09:28 | Progress Note ---
Assessment and Plan 48 y/o male with inhouse cardiac arrest x2 1. PRN ativan for sedation to prevent patient from self extubation. 2. Continue PSV daily and will now leave on as tolerated. No need to rest on vent unless absolutely necessary. 3. Monitor fever curve, will repeat CXR over the weekend. 4. Await neurology input on MRI 5. Overall prognosis is guarded to poor. CCT 31 minutes. Subjective Date of service: 07/25/19 Principal diagnosis: post anoxic brain injury Interval history: Temp this am up to 100.5. Still with a lot of oral secretions. Had MRI yesterday and no suggestion of anoxic injury there. Focal area of ischemia noted. Patient also starting to become more agitated. No family present at bedside. Objective Vital Signs - 12hr 07/24/19 07/24/19 07/24/19 22:00 22:33 23:00 Temperature Pulse Rate 90 94 H 85 Pulse Rate [ From Monitor] Respiratory 20 19 Rate Blood Pressure 126/66 133/69 131/66 O2 Sat by Pulse 99 97 Oximetry 07/24/19 07/25/19 07/25/19 23:59 00:00 00:33 Temperature 100 F H Pulse Rate 93 H 91 H Pulse Rate [ 108 H From Monitor] Respiratory 16 Rate Blood Pressure 122/70 129/67 O2 Sat by Pulse 95 99 Oximetry 07/25/19 07/25/19 07/25/19 01:00 02:00 03:00 Temperature Pulse Rate 102 H 90 90 Pulse Rate [ From Monitor] Respiratory 25 H 24 22 Rate Blood Pressure 135/74 134/69 133/69 O2 Sat by Pulse 95 96 97 Oximetry 07/25/19 07/25/19 07/25/19 03:36 04:00 05:00 Temperature 98 F Pulse Rate 105 H 100 H Pulse Rate [ 106 H From Monitor] Respiratory 21 24 Rate Blood Pressure 148/87 142/77 O2 Sat by Pulse 93 98 Oximetry 07/25/19 07/25/19 07/25/19 05:30 06:00 07:00 Temperature Pulse Rate 100 H 93 H 104 H Pulse Rate [ From Monitor] Respiratory 23 19 Rate Blood Pressure 142/75 136/70 141/80 O2 Sat by Pulse 97 98 95 Oximetry 07/25/19 07/25/19 08:00 09:02 Temperature 100.5 F H Pulse Rate 120 H 118 H Pulse Rate [ From Monitor] Respiratory 23 24 Rate Blood Pressure 164/89 153/89 O2 Sat by Pulse 94 119 H Oximetry Constitutional: no acute distress, comatose Eyes: non-icteric ENT: other (orally intubated not on sedation) Neck: supple Effort: normal Ascultation: Bilateral: clear Gastrointestinal: normoactive bowel sounds Integumentary: normal CBC and BMP: 07/25/19 04:05 07/25/19 04:05 ABG, PT/INR, D-dimer: ABG ABG pH 7.457 pH Units (7.350-7.450) H 07/25/19 05:27 ABG pCO2 39.4 mm Hg 07/25/19 05:27 ABG pO2 75.5 mm Hg (80.0-90.0) L 07/25/19 05:27 ABG O2 Saturation 97.1 % (95.0-99.0) 07/25/19 05:27 PT/INR, D-dimer PT 19.8 Sec. (12.2-14.9) H 07/12/19 15:08 INR 1.65 (0.87-1.13) H 07/12/19 15:08 Abnormal lab findings: Abnormal Labs 07/12/19 07/12/19 07/12/19 14:46 15:08 15:08 WBC 14.7 H RBC 2.97 L Hgb 9.7 L Hct 29.0 L MCV 98 H MCH 33 H RDW 19.8 H Plt Count 124 L Seg Neuts % (Manual) 91.0 H Lymphocytes % (Manual) 2.0 L Monocytes % (Manual) Nucleated RBC % 1.0 H Seg Neutrophils # Man 13.4 H Lymphocytes # (Manual) 0.3 L Monocytes # (Manual) PT 19.8 H INR 1.65 H APTT 47.8 H ABG pH ABG pO2 ABG HCO3 ABG O2 Saturation ABG Base Excess ABG Hemoglobin Oxyhemoglobin Sodium Potassium Chloride Carbon Dioxide BUN Creatinine Glucose POC Glucose 110 H Calcium Phosphorus Magnesium Iron TIBC Ferritin Total Bilirubin Direct Bilirubin AST Alkaline Phosphatase Lactate Dehydrogenase Troponin T NT-Pro-B Natriuret Pep Total Protein Albumin LDL Cholesterol Direct Vitamin B12 Folate Urine WBC (Auto) Urine Creatinine Urine Total Protein Fluid Glucose Fluid Total Protein 01/25/20 01/25/20 01/25/20 15:08 15:08 15:08 WBC RBC Hgb Hct MCV MCH RDW Plt Count Seg Neuts % (Manual) Lymphocytes % (Manual) Monocytes % (Manual) Nucleated RBC % Seg Neutrophils # Man Lymphocytes # (Manual) Monocytes # (Manual) PT INR APTT ABG pH ABG pO2 ABG HCO3 ABG O2 Saturation ABG Base Excess ABG Hemoglobin Oxyhemoglobin Sodium 125 L Potassium 5.5 H Chloride 84.9 L Carbon Dioxide 13 L BUN 70 H Creatinine 8.8 H Glucose POC Glucose Calcium 8.0 L Phosphorus Magnesium 1.30 L Iron TIBC Ferritin Total Bilirubin 1.30 H Direct Bilirubin 0.9 H AST 53 H Alkaline Phosphatase 208 H Lactate Dehydrogenase Troponin T 0.192 H* NT-Pro-B Natriuret Pep > 39583 H Total Protein Albumin 3.3 L LDL Cholesterol Direct 40 L Vitamin B12 Folate Urine WBC (Auto) Urine Creatinine Urine Total Protein Fluid Glucose Fluid Total Protein 07/12/19 07/13/19 07/13/19 17:04 01:32 01:32 WBC RBC Hgb Hct MCV MCH RDW Plt Count Seg Neuts % (Manual) Lymphocytes % (Manual) Monocytes % (Manual) Nucleated RBC % Seg Neutrophils # Man Lymphocytes # (Manual) Monocytes # (Manual) PT INR APTT ABG pH ABG pO2 ABG HCO3 ABG O2 Saturation ABG Base Excess ABG Hemoglobin Oxyhemoglobin Sodium 133 L D Potassium 5.3 H Chloride 90.8 L Carbon Dioxide 20 L D BUN 48 H Creatinine 6.2 H Glucose 105 H POC Glucose Calcium 8.2 L Phosphorus 4.90 H Magnesium 1.50 L Iron TIBC Ferritin Total Bilirubin Direct Bilirubin AST Alkaline Phosphatase Lactate Dehydrogenase Troponin T 0.188 H* NT-Pro-B Natriuret Pep Total Protein Albumin LDL Cholesterol Direct Vitamin B12 Folate Urine WBC (Auto) Urine Creatinine Urine Total Protein Fluid Glucose Fluid Total Protein 07/13/19 07/13/19 07/13/19 04:28 04:28 16:16 WBC 15.9 H RBC 3.10 L Hgb 10.2 L Hct 30.6 L MCV 99 H MCH 33 H RDW 19.4 H Plt Count 135 L Seg Neuts % (Manual) Lymphocytes % (Manual) 4.0 L Monocytes % (Manual) Nucleated RBC % Seg Neutrophils # Man 9.9 H Lymphocytes # (Manual) 0.6 L Monocytes # (Manual) PT INR APTT ABG pH ABG pO2 ABG HCO3 ABG O2 Saturation ABG Base Excess ABG Hemoglobin Oxyhemoglobin Sodium 132 L 134 L Potassium 5.1 H Chloride 90.3 L 92.2 L Carbon Dioxide 17 L 20 L BUN 47 H 55 H Creatinine 6.0 H 6.5 H Glucose 124 H POC Glucose Calcium 8.2 L 7.9 L Phosphorus Magnesium Iron TIBC Ferritin Total Bilirubin Direct Bilirubin AST Alkaline Phosphatase Lactate Dehydrogenase Troponin T NT-Pro-B Natriuret Pep Total Protein Albumin LDL Cholesterol Direct Vitamin B12 Folate Urine WBC (Auto) Urine Creatinine Urine Total Protein Fluid Glucose Fluid Total Protein 07/14/19 07/14/19 07/14/19 07:16 07:16 07:16 WBC RBC 2.65 L Hgb 8.6 L Hct 25.4 L MCV 96 H MCH 33 H RDW 19.7 H Plt Count 114 L Seg Neuts % (Manual) 89.0 H Lymphocytes % (Manual) 4.0 L Monocytes % (Manual) Nucleated RBC % Seg Neutrophils # Man Lymphocytes # (Manual) 0.3 L Monocytes # (Manual) PT INR APTT ABG pH ABG pO2 ABG HCO3 ABG O2 Saturation ABG Base Excess ABG Hemoglobin Oxyhemoglobin Sodium 133 L Potassium Chloride 93.0 L Carbon Dioxide 18 L BUN 61 H Creatinine 7.3 H Glucose 113 H POC Glucose Calcium 7.7 L Phosphorus Magnesium Iron TIBC Ferritin Total Bilirubin Direct Bilirubin AST Alkaline Phosphatase Lactate Dehydrogenase 210 H Troponin T NT-Pro-B Natriuret Pep Total Protein Albumin LDL Cholesterol Direct Vitamin B12 Folate Urine WBC (Auto) Urine Creatinine Urine Total Protein Fluid Glucose Fluid Total Protein 07/14/19 07/14/19 07/14/19 10:45 16:40 17:28 WBC RBC Hgb Hct MCV MCH RDW Plt Count Seg Neuts % (Manual) Lymphocytes % (Manual) Monocytes % (Manual) Nucleated RBC % Seg Neutrophils # Man Lymphocytes # (Manual) Monocytes # (Manual) PT INR APTT ABG pH ABG pO2 ABG HCO3 ABG O2 Saturation ABG Base Excess ABG Hemoglobin Oxyhemoglobin Sodium Potassium Chloride Carbon Dioxide BUN Creatinine Glucose POC Glucose Calcium Phosphorus Magnesium Iron TIBC Ferritin Total Bilirubin Direct Bilirubin AST Alkaline Phosphatase Lactate Dehydrogenase Troponin T NT-Pro-B Natriuret Pep Total Protein Albumin LDL Cholesterol Direct Vitamin B12 Folate Urine WBC (Auto) Urine Creatinine 104.2 H 106.2 H Urine Total Protein 173 H Fluid Glucose 93 H Fluid Total Protein 4.7 L 07/14/19 07/14/19 07/15/19 17:28 20:43 06:30 WBC RBC 3.06 L Hgb 9.9 L Hct 29.7 L MCV 97 H MCH 33 H RDW 19.5 H Plt Count 101 L Seg Neuts % (Manual) Lymphocytes % (Manual) Monocytes % (Manual) Nucleated RBC % Seg Neutrophils # Man Lymphocytes # (Manual) Monocytes # (Manual) PT INR APTT ABG pH ABG pO2 ABG HCO3 ABG O2 Saturation ABG Base Excess ABG Hemoglobin Oxyhemoglobin Sodium Potassium Chloride Carbon Dioxide BUN Creatinine Glucose POC Glucose 120 H Calcium Phosphorus Magnesium Iron TIBC Ferritin Total Bilirubin Direct Bilirubin AST Alkaline Phosphatase Lactate Dehydrogenase Troponin T NT-Pro-B Natriuret Pep Total Protein Albumin LDL Cholesterol Direct Vitamin B12 Folate Urine WBC (Auto) 31.0 H Urine Creatinine Urine Total Protein Fluid Glucose Fluid Total Protein 07/15/19 07/15/19 07/15/19 06:30 06:30 06:30 WBC RBC Hgb Hct MCV MCH RDW Plt Count Seg Neuts % (Manual) Lymphocytes % (Manual) Monocytes % (Manual) Nucleated RBC % Seg Neutrophils # Man Lymphocytes # (Manual) Monocytes # (Manual) PT INR APTT ABG pH ABG pO2 ABG HCO3 ABG O2 Saturation ABG Base Excess ABG Hemoglobin Oxyhemoglobin Sodium Potassium Chloride 95.2 L Carbon Dioxide BUN 42 H Creatinine 4.9 H Glucose POC Glucose Calcium Phosphorus Magnesium Iron 15 L TIBC 186 L Ferritin 428.2 H Total Bilirubin Direct Bilirubin AST 50 H Alkaline Phosphatase 191 H Lactate Dehydrogenase Troponin T NT-Pro-B Natriuret Pep Total Protein Albumin 3.1 L LDL Cholesterol Direct Vitamin B12 Folate Urine WBC (Auto) Urine Creatinine Urine Total Protein Fluid Glucose Fluid Total Protein 07/15/19 07/16/19 07/16/19 12:42 06:19 21:34 WBC RBC Hgb Hct MCV MCH RDW Plt Count Seg Neuts % (Manual) Lymphocytes % (Manual) Monocytes % (Manual) Nucleated RBC % Seg Neutrophils # Man Lymphocytes # (Manual) Monocytes # (Manual) PT INR APTT ABG pH ABG pO2 ABG HCO3 ABG O2 Saturation ABG Base Excess ABG Hemoglobin Oxyhemoglobin Sodium 134 L 134 L Potassium Chloride 92.9 L 93.4 L Carbon Dioxide 20 L BUN 55 H 40 H Creatinine 5.6 H 4.4 H Glucose POC Glucose 140 H Calcium Phosphorus Magnesium Iron TIBC Ferritin Total Bilirubin Direct Bilirubin AST Alkaline Phosphatase Lactate Dehydrogenase Troponin T NT-Pro-B Natriuret Pep Total Protein Albumin LDL Cholesterol Direct Vitamin B12 Folate Urine WBC (Auto) Urine Creatinine Urine Total Protein Fluid Glucose Fluid Total Protein 07/17/19 07/17/19 07/17/19 05:27 12:10 12:52 WBC RBC Hgb Hct MCV MCH RDW Plt Count Seg Neuts % (Manual) Lymphocytes % (Manual) Monocytes % (Manual) Nucleated RBC % Seg Neutrophils # Man Lymphocytes # (Manual) Monocytes # (Manual) PT INR APTT ABG pH ABG pO2 ABG HCO3 ABG O2 Saturation ABG Base Excess ABG Hemoglobin Oxyhemoglobin Sodium 136 L Potassium Chloride 93.6 L Carbon Dioxide BUN 43 H Creatinine 4.8 H Glucose POC Glucose 122 H 122 H Calcium Phosphorus Magnesium Iron TIBC Ferritin Total Bilirubin Direct Bilirubin AST Alkaline Phosphatase Lactate Dehydrogenase Troponin T NT-Pro-B Natriuret Pep Total Protein Albumin LDL Cholesterol Direct Vitamin B12 Folate Urine WBC (Auto) Urine Creatinine Urine Total Protein Fluid Glucose Fluid Total Protein 07/17/19 07/18/19 07/18/19 13:50 04:20 05:40 WBC RBC Hgb Hct MCV MCH RDW Plt Count Seg Neuts % (Manual) Lymphocytes % (Manual) Monocytes % (Manual) Nucleated RBC % Seg Neutrophils # Man Lymphocytes # (Manual) Monocytes # (Manual) PT INR APTT ABG pH 7.262 L ABG pO2 195.5 H 238.9 H ABG HCO3 ABG O2 Saturation 99.1 H 99.4 H ABG Base Excess -2.9 L ABG Hemoglobin 8.6 L 10.9 L Oxyhemoglobin Sodium Potassium Chloride 94.5 L Carbon Dioxide BUN 61 H Creatinine 5.6 H Glucose 111 H POC Glucose Calcium Phosphorus 4.70 H Magnesium Iron TIBC Ferritin Total Bilirubin Direct Bilirubin AST Alkaline Phosphatase Lactate Dehydrogenase 294 H Troponin T NT-Pro-B Natriuret Pep Total Protein Albumin LDL Cholesterol Direct Vitamin B12 Folate Urine WBC (Auto) Urine Creatinine Urine Total Protein Fluid Glucose Fluid Total Protein 07/18/19 07/18/19 07/18/19 05:40 05:40 10:30 WBC 22.7 H RBC 2.64 L Hgb 8.2 L Hct 24.9 L MCV 95 H MCH RDW 19.7 H Plt Count 94 L Seg Neuts % (Manual) Lymphocytes % (Manual) Monocytes % (Manual) Nucleated RBC % Seg Neutrophils # Man Lymphocytes # (Manual) Monocytes # (Manual) PT INR APTT ABG pH 7.457 H ABG pO2 ABG HCO3 26.3 H ABG O2 Saturation ABG Base Excess ABG Hemoglobin 7.8 L Oxyhemoglobin 94.6 L Sodium Potassium Chloride Carbon Dioxide BUN Creatinine Glucose POC Glucose Calcium Phosphorus Magnesium Iron TIBC Ferritin Total Bilirubin Direct Bilirubin 0.7 H AST 94 H Alkaline Phosphatase 159 H Lactate Dehydrogenase Troponin T NT-Pro-B Natriuret Pep Total Protein 5.6 L D Albumin 2.5 L LDL Cholesterol Direct Vitamin B12 Folate Urine WBC (Auto) Urine Creatinine Urine Total Protein Fluid Glucose Fluid Total Protein 07/18/19 07/19/19 07/19/19 Unknown 05:15 05:15 WBC RBC Hgb Hct MCV MCH RDW Plt Count Seg Neuts % (Manual) Lymphocytes % (Manual) Monocytes % (Manual) Nucleated RBC % Seg Neutrophils # Man Lymphocytes # (Manual) Monocytes # (Manual) PT INR APTT ABG pH ABG pO2 ABG HCO3 ABG O2 Saturation ABG Base Excess ABG Hemoglobin 11.6 L Oxyhemoglobin 94.3 L Sodium 133 L Potassium Chloride 94.9 L Carbon Dioxide BUN 43 H Creatinine 4.0 H Glucose 118 H POC Glucose Calcium Phosphorus Magnesium 0.20 L* Iron TIBC Ferritin Total Bilirubin Direct Bilirubin AST Alkaline Phosphatase Lactate Dehydrogenase Troponin T NT-Pro-B Natriuret Pep Total Protein Albumin LDL Cholesterol Direct Vitamin B12 Folate Urine WBC (Auto) Urine Creatinine Urine Total Protein Fluid Glucose Fluid Total Protein 07/19/19 07/19/19 07/20/19 05:15 06:00 06:15 WBC 14.6 H RBC 2.57 L Hgb 8.2 L Hct 24.3 L MCV 95 H MCH RDW 19.5 H Plt Count 101 L Seg Neuts % (Manual) Lymphocytes % (Manual) Monocytes % (Manual) Nucleated RBC % Seg Neutrophils # Man Lymphocytes # (Manual) Monocytes # (Manual) PT INR APTT ABG pH ABG pO2 91.2 H ABG HCO3 27.5 H ABG O2 Saturation ABG Base Excess ABG Hemoglobin 8.3 L Oxyhemoglobin Sodium Potassium Chloride Carbon Dioxide BUN 61 H Creatinine 4.6 H Glucose 117 H POC Glucose Calcium Phosphorus Magnesium Iron TIBC Ferritin Total Bilirubin Direct Bilirubin AST Alkaline Phosphatase Lactate Dehydrogenase Troponin T NT-Pro-B Natriuret Pep Total Protein Albumin LDL Cholesterol Direct Vitamin B12 Folate Urine WBC (Auto) Urine Creatinine Urine Total Protein Fluid Glucose Fluid Total Protein 07/21/19 07/21/19 07/21/19 05:30 06:15 06:15 WBC 11.8 H RBC 2.45 L Hgb 7.9 L Hct 23.5 L MCV 96 H MCH RDW 19.4 H Plt Count Seg Neuts % (Manual) Lymphocytes % (Manual) Monocytes % (Manual) Nucleated RBC % Seg Neutrophils # Man Lymphocytes # (Manual) Monocytes # (Manual) PT INR APTT ABG pH ABG pO2 104.5 H ABG HCO3 27.9 H ABG O2 Saturation ABG Base Excess 3.3 H ABG Hemoglobin 8.2 L Oxyhemoglobin Sodium Potassium 3.3 L Chloride Carbon Dioxide BUN 74 H Creatinine 4.3 H Glucose 127 H POC Glucose Calcium Phosphorus Magnesium Iron TIBC Ferritin Total Bilirubin Direct Bilirubin AST Alkaline Phosphatase Lactate Dehydrogenase Troponin T NT-Pro-B Natriuret Pep Total Protein Albumin LDL Cholesterol Direct Vitamin B12 Folate Urine WBC (Auto) Urine Creatinine Urine Total Protein Fluid Glucose Fluid Total Protein 07/21/19 07/21/19 07/21/19 08:00 08:00 17:51 WBC RBC Hgb Hct MCV MCH RDW Plt Count Seg Neuts % (Manual) Lymphocytes % (Manual) Monocytes % (Manual) Nucleated RBC % Seg Neutrophils # Man Lymphocytes # (Manual) Monocytes # (Manual) PT INR APTT ABG pH ABG pO2 ABG HCO3 ABG O2 Saturation ABG Base Excess ABG Hemoglobin Oxyhemoglobin Sodium Potassium 3.2 L Chloride Carbon Dioxide BUN Creatinine Glucose POC Glucose Calcium Phosphorus Magnesium Iron TIBC Ferritin Total Bilirubin Direct Bilirubin AST Alkaline Phosphatase Lactate Dehydrogenase Troponin T NT-Pro-B Natriuret Pep Total Protein Albumin LDL Cholesterol Direct Vitamin B12 960.4 H Folate 6.18 L Urine WBC (Auto) Urine Creatinine Urine Total Protein Fluid Glucose Fluid Total Protein 07/22/19 07/22/19 07/22/19 03:40 06:00 21:45 WBC 12.6 H RBC 2.54 L Hgb 7.8 L Hct 24.2 L MCV 95 H MCH RDW 19.7 H Plt Count Seg Neuts % (Manual) Lymphocytes % (Manual) Monocytes % (Manual) Nucleated RBC % Seg Neutrophils # Man Lymphocytes # (Manual) Monocytes # (Manual) PT INR APTT ABG pH ABG pO2 99.4 H ABG HCO3 27.3 H ABG O2 Saturation ABG Base Excess ABG Hemoglobin 9.2 L Oxyhemoglobin Sodium Potassium 3.1 L Chloride Carbon Dioxide BUN 75 H Creatinine 2.9 H Glucose 123 H POC Glucose Calcium Phosphorus Magnesium Iron TIBC Ferritin Total Bilirubin Direct Bilirubin AST Alkaline Phosphatase Lactate Dehydrogenase Troponin T NT-Pro-B Natriuret Pep Total Protein Albumin LDL Cholesterol Direct Vitamin B12 Folate Urine WBC (Auto) Urine Creatinine Urine Total Protein Fluid Glucose Fluid Total Protein 07/23/19 07/24/19 07/24/19 05:30 04:12 07:03 WBC RBC Hgb Hct MCV MCH RDW Plt Count Seg Neuts % (Manual) Lymphocytes % (Manual) Monocytes % (Manual) Nucleated RBC % Seg Neutrophils # Man Lymphocytes # (Manual) Monocytes # (Manual) PT INR APTT ABG pH ABG pO2 123.1 H ABG HCO3 27.1 H ABG O2 Saturation ABG Base Excess ABG Hemoglobin 9.3 L Oxyhemoglobin Sodium Potassium 3.1 L 3.4 L Chloride 107.5 H Carbon Dioxide BUN 80 H 70 H Creatinine 2.6 H 1.8 H Glucose 112 H 112 H POC Glucose Calcium Phosphorus Magnesium Iron TIBC Ferritin Total Bilirubin Direct Bilirubin AST Alkaline Phosphatase Lactate Dehydrogenase Troponin T NT-Pro-B Natriuret Pep Total Protein Albumin LDL Cholesterol Direct Vitamin B12 Folate Urine WBC (Auto) Urine Creatinine Urine Total Protein Fluid Glucose Fluid Total Protein 07/24/19 07/25/19 07/25/19 07:03 04:05 04:05 WBC 11.4 H RBC 2.39 L Hgb 7.5 L Hct 23.0 L MCV 96 H MCH RDW 19.4 H Plt Count Seg Neuts % (Manual) 76.0 H Lymphocytes % (Manual) 9.0 L Monocytes % (Manual) 11.0 H Nucleated RBC % Seg Neutrophils # Man 8.7 H Lymphocytes # (Manual) 1.0 L Monocytes # (Manual) 1.3 H PT INR APTT ABG pH ABG pO2 ABG HCO3 ABG O2 Saturation ABG Base Excess ABG Hemoglobin Oxyhemoglobin Sodium 147 H Potassium Chloride 110.1 H Carbon Dioxide BUN 62 H Creatinine Glucose 115 H POC Glucose Calcium Phosphorus Magnesium 1.50 L Iron TIBC Ferritin Total Bilirubin Direct Bilirubin AST Alkaline Phosphatase Lactate Dehydrogenase Troponin T NT-Pro-B Natriuret Pep Total Protein Albumin LDL Cholesterol Direct Vitamin B12 Folate Urine WBC (Auto) Urine Creatinine Urine Total Protein Fluid Glucose Fluid Total Protein 07/25/19 05:27 WBC RBC Hgb Hct MCV MCH RDW Plt Count Seg Neuts % (Manual) Lymphocytes % (Manual) Monocytes % (Manual) Nucleated RBC % Seg Neutrophils # Man Lymphocytes # (Manual) Monocytes # (Manual) PT INR APTT ABG pH 7.457 H ABG pO2 75.5 L ABG HCO3 27.2 H ABG O2 Saturation ABG Base Excess 3.1 H ABG Hemoglobin 7.0 L Oxyhemoglobin 94.4 L Sodium Potassium Chloride Carbon Dioxide BUN Creatinine Glucose POC Glucose Calcium Phosphorus Magnesium Iron TIBC Ferritin Total Bilirubin Direct Bilirubin AST Alkaline Phosphatase Lactate Dehydrogenase Troponin T NT-Pro-B Natriuret Pep Total Protein Albumin LDL Cholesterol Direct Vitamin B12 Folate Urine WBC (Auto) Urine Creatinine Urine Total Protein Fluid Glucose Fluid Total Protein
[2019-07-25] MEDS: amLODIPine 10 MG TAB PO SCH (09:55)
[2019-07-25] MEDS: cloNIDine 0.1 MG TAB PO SCH ×2 (09:56→22:37)
[2019-07-25] MEDS: LANSOPRAZOLE 30 MG SOLUTAB FEEDTUBE SCH (09:56)
[2019-07-25] MEDS: THIAMINE 100 MG TAB PO SCH (10:02)
[2019-07-25] MEDS ORDERED: fentaNYL 100 MCG/2 ML INJ ONE (10:30)
[2019-07-25] MEDS ORDERED: fentaNYL 100 MCG/2 ML INJ IV STA (10:35)
[2019-07-25] MEDS ORDERED: fentaNYL 250 MCG/5 ML INJ IV PRN (10:51)
--- NOTE | 2019-07-25 11:39 | Progress Note ---
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 Subjective Date of service: 07/25/19 Principal diagnosis: post anoxic brain injury Interval history: No interval changes. Objective Vital Signs Temp Pulse Pulse Resp BP Pulse Ox 07/25/19 10:41 147 H 148/74 97 07/25/19 10:00 99 H 28 H 138/75 94 07/25/19 09:56 109 H 139/83 07/25/19 09:55 139/83 07/25/19 09:02 118 H 24 153/89 119 H 07/25/19 09:01 120 H 16 165/88 97 07/25/19 08:00 100.5 F H 120 H 23 164/89 94 07/25/19 07:00 104 H 19 141/80 95 07/25/19 06:00 93 H 23 136/70 98 07/25/19 05:30 100 H 142/75 97 07/25/19 05:00 100 H 24 142/77 98 07/25/19 04:00 105 H 106 H 21 148/87 93 07/25/19 03:36 98 F 07/25/19 03:00 90 22 133/69 97 07/25/19 02:00 90 24 134/69 96 07/25/19 01:00 102 H 25 H 135/74 95 07/25/19 00:33 91 H 129/67 99 07/25/19 00:00 93 H 108 H 16 122/70 95 07/24/19 23:59 100 F H 07/24/19 23:00 85 19 131/66 97 07/24/19 22:33 94 H 133/69 07/24/19 22:00 90 20 126/66 99 07/24/19 21:00 111 H 24 127/63 98 07/24/19 20:44 95 H 127/63 99 07/24/19 20:08 101 H 21 129/63 99 07/24/19 20:00 99.6 F 99 H 101 H 20 129/63 98 07/24/19 19:00 94 H 20 118/63 07/24/19 18:00 101 H 22 131/67 07/24/19 17:41 100 H 129/67 100 07/24/19 17:00 83 17 130/68 100 07/24/19 16:00 99 F 85 18 115/64 97 07/24/19 15:00 83 17 107/57 99 07/24/19 14:00 99.1 F 89 19 115/62 07/24/19 13:00 112 H 24 96 07/24/19 12:46 124 H 25 H 07/24/19 12:44 128 H 32 H 96 07/24/19 12:00 102 H - Physical Examination General: Other (unresponsive on the vent) Cardiac: Positive: Reg Rate and Rhythm - Labs and Meds CBC 07/25/19 Range/Units 04:05 WBC 11.4 H (4.5-11.0) K/mm3 RBC 2.39 L (3.65-5.03) M/mm3 Hgb 7.5 L (11.8-15.2) gm/dl Hct 23.0 L (35.5-45.6) % Plt Count 333 (140-440) K/mm3 Comprehensive Metabolic Panel 07/25/19 Range/Units 04:05 Sodium 147 H (137-145) mmol/L Potassium 4.0 (3.6-5.0) mmol/L Chloride 110.1 H (98-107) mmol/L Carbon Dioxide 25 (22-30) mmol/L BUN 62 H (9-20) mg/dL Creatinine 1.5 (0.8-1.5) mg/dL Glucose 115 H (75-100) mg/dL Calcium 8.8 (8.4-10.2) mg/dL
--- NOTE | 2019-07-25 11:52 | Progress Note ---
Assessment and Plan Acute Kidney Injury possibly prerenal/ATN, cardiorenal syndrome, diuretics, ACEI, AIN from NSAIDs, ? underlying CKD process, no obstruction Hyperkalemia High Anion Gap Metabolic Acidosis Acute respiratory failure LLL PNA Anemia Hypomagnesemia S/p Cardiac Arrest Acute on chronic systolic CHF Questionable Anoxic Brain Injury Plan: - kidney function cont to improve with good UOP - will d/c vascath - Monitor for signs of renal recovery - Epogen dosing for anemia management - Replete potassium - Renal US mentioned moderate ascites, but no hydronephrosis - Neuro evaluated pt, recommend MRI Brain, f/u recs - S/p US guided paracentesis with removal of 3200 ml on 07/15/19 - Renally dose medications Delmar hernandez MD [phone] Subjective Date of service: 07/25/19 Principal diagnosis: post anoxic brain injury Interval history: intubated, no family at bedside Objective - Vital Signs Vital signs: Vital Signs - 12hr 07/24/19 07/25/19 07/25/19 23:59 00:00 00:33 Temperature 100 F H Pulse Rate 93 H 91 H Pulse Rate [ 108 H From Monitor] Respiratory 16 Rate Blood Pressure 122/70 129/67 O2 Sat by Pulse 95 99 Oximetry 07/25/19 07/25/19 07/25/19 01:00 02:00 03:00 Temperature Pulse Rate 102 H 90 90 Pulse Rate [ From Monitor] Respiratory 25 H 24 22 Rate Blood Pressure 135/74 134/69 133/69 O2 Sat by Pulse 95 96 97 Oximetry 07/25/19 07/25/19 07/25/19 03:36 04:00 05:00 Temperature 98 F Pulse Rate 105 H 100 H Pulse Rate [ 106 H From Monitor] Respiratory 21 24 Rate Blood Pressure 148/87 142/77 O2 Sat by Pulse 93 98 Oximetry 07/25/19 07/25/19 07/25/19 05:30 06:00 07:00 Temperature Pulse Rate 100 H 93 H 104 H Pulse Rate [ From Monitor] Respiratory 23 19 Rate Blood Pressure 142/75 136/70 141/80 O2 Sat by Pulse 97 98 95 Oximetry 07/25/19 07/25/19 07/25/19 08:00 09:01 09:02 Temperature 100.5 F H Pulse Rate 120 H 120 H 118 H Pulse Rate [ From Monitor] Respiratory 23 16 24 Rate Blood Pressure 164/89 165/88 153/89 O2 Sat by Pulse 94 97 119 H Oximetry 07/25/19 07/25/19 07/25/19 09:55 09:56 10:00 Temperature Pulse Rate 109 H 99 H Pulse Rate [ From Monitor] Respiratory 28 H Rate Blood Pressure 139/83 139/83 138/75 O2 Sat by Pulse 94 Oximetry 07/25/19 10:41 Temperature Pulse Rate 147 H Pulse Rate [ From Monitor] Respiratory Rate Blood Pressure 148/74 O2 Sat by Pulse 97 Oximetry - General Appearance General appearance: well-developed, intubated EENT: ATNC, PERRL, mucous membranes dry Neck: no JVD, no carotid bruit Respiratory: Present: Clear to Ascultation Cardiology: regular, S1S2 Gastrointestinal: normoactive bowel sounds, no tenderness, no distended Integumentary: no rash, warm and dry Neurologic: other (intubated) Musculoskeletal: other (trace pitting edema) Psychiatric: other (intubated) - Lab 07/25/19 04:05 07/25/19 04:05 Most recent lab results ABG pH 7.457 pH Units (7.350-7.450) H 07/25/19 05:27 ABG pCO2 39.4 mm Hg 07/25/19 05:27 ABG pO2 75.5 mm Hg (80.0-90.0) L 07/25/19 05:27 ABG HCO3 27.2 mmol/L (20.0-26.0) H 07/25/19 05:27 ABG O2 Saturation 97.1 % (95.0-99.0) 07/25/19 05:27 Calcium 8.8 mg/dL (8.4-10.2) 07/25/19 04:05 Phosphorus 2.70 mg/dL (2.5-4.5) 07/24/19 07:03 Magnesium 1.50 mg/dL (1.7-2.3) L 07/24/19 07:03 Urine Creatinine 106.2 mg/dL (0.1-20.0) H 07/14/19 17:28 Urine Sodium 67 mmol/L 07/14/19 17:28 Urine Total Protein 173 mg/dL (5-11.8) H 07/14/19 16:40 Medications & Allergies - Medications Allergies/Adverse Reactions: Allergies No Known Allergies Allergy (Verified 07/01/19 11:20) Home Medications: Home Medications Medication Instructions Recorded Confirmed Last Taken Type Magnesium Oxide 400 mg PO BIDAC #60 tablet 12/07/16 07/13/19 1 Day Ago Rx ~09/16/17 Thiamine [Vitamin B-1] 100 mg PO QDAY #30 tablet 12/07/16 07/13/19 2 Days Ago Rx ~09/14/17 100 mg Lisinopril [Zestril] 20 mg PO DAILY #30 tablet 09/18/17 07/13/19 Unknown Rx Pantoprazole [Protonix TAB] 40 mg PO BID #60 tablet 09/18/17 07/13/19 Unknown Rx Aspirin [Aspirin BABY CHEW TAB] 81 mg PO QDAY #30 tab.chew 07/05/19 07/13/19 Unknown Rx Furosemide [Lasix TAB] 40 mg PO BID #60 tablet 07/05/19 07/13/19 Unknown Rx Nitroglycerin [Nitrostat] 0.4 mg SL .Q5MIN PRN #10 tablet 07/05/19 07/13/19 Unknown Rx Spironolactone [Aldactone] 12.5 mg PO QDAY #30 tablet 07/05/19 07/13/19 Unknown Rx carvediloL [Coreg] 6.25 mg PO BID #60 tablet 07/05/19 07/13/19 Unknown Rx lisinopriL [Zestril TAB] 20 mg PO QDAY #30 tablet 07/05/19 07/13/19 Unknown Rx Active Medications: Generic Name Dose Route Start Last Admin Trade Name Karol PRN Reason Stop Dose Admin Acetaminophen 650 mg 07/20/19 16:56 07/22/19 01:58 Tylenol FEEDTUBE 650 mg Q6H PRN Administration Fever >101 Albuterol 2.5 mg 07/14/19 04:54 07/16/19 13:42 Proventil IH 2.5 mg Q4HRT PRN Administration Shortness Of Breath Amlodipine Besylate 10 mg 07/23/19 11:00 07/25/19 09:55 Amlodipine PO 10 mg QDAY TERRELL Administration Lipase/Protease/Amylase 1 each 07/18/19 13:20 Pancrenarinder Moeller 10,500 Unit FEEDTUBE PRN PRN For Clogged Feeding Tube Clonidine HCl 0.1 mg 07/23/19 11:00 07/25/19 09:56 Catapres PO 0.1 mg Q12HR TERRELL Administration Epoetin Barney 10,000 unit 07/14/19 10:13 07/18/19 22:04 Procrit IV 10,000 unit CHEMA PRN Administration DIALYSIS Fentanyl 25 mcg 07/25/19 10:51 Sublimaze IV Q2HR PRN Pain, Moderate (4-6) Haloperidol Lactate 5 mg 07/12/19 21:35 07/24/19 12:00 Haldol IV 5 mg Q1H PRN Administration Unrespon. to mult. doses BZD's Hydralazine HCl 10 mg 07/23/19 10:46 07/23/19 10:59 Apresoline IV 10 mg Q4HR PRN Administration BP >160/100 Sodium Chloride 100 mls @ 999 mls/hr 07/16/19 12:11 Nacl 0.9% IV CHEMA PRN Hypotension Vasopressin 20 unit/ Sodium 101 mls @ 9.09 mls/hr 07/17/19 15:00 Chloride IV TITR TERRELL Protocol 0.03 UNITS/MIN Metronidazole 500 mg in 100 mls @ 100 mls/hr 07/17/19 17:00 07/25/19 07:18 Flagyl 500 Mg/100 Ml IV 100 mls/hr Q8HR TERRELL Administration Protocol Cefepime HCl 1 gm in 100 mls @ 200 mls/hr 07/17/19 17:20 07/24/19 17:30 Cefepime/Ns 1 Gm/100 Ml IV 200 mls/hr Q24H TERRELL Administration Lansoprazole 30 mg 07/18/19 11:00 07/25/19 09:56 Prevacid Solutab FEEDTUBE 30 mg QDAY TERRELL Administration Lorazepam 1 mg 07/25/19 08:34 07/25/19 08:45 Ativan IV 1 mg Q4H PRN Administration Agitation Scopolamine 1 each 07/23/19 11:00 07/23/19 11:02 Transderm-Scop TD 1 each Q3D TERRELL Administration Simple Syrup 15 ml 07/18/19 13:20 Simple Syrup FEEDTUBE PRN PRN Hypoglycemia Simple Syrup 30 ml 07/18/19 13:20 Simple Syrup FEEDTUBE PRN PRN Hypoglycemia Sodium Bicarbonate 325 mg 07/18/19 13:20 Sodium Bicarbonate FEEDTUBE PRN PRN For Clogged Feeding Tube Thiamine HCl 100 mg 07/22/19 10:00 07/25/19 10:02 Vitamin B-1 PO 100 mg QDAY TERRELL Administration
--- NOTE | 2019-07-25 14:34 | Progress Note ---
Assessment and Plan Cultures: 07/12/2019 blood culture: Negative 07/14/2019 urine culture: mixed growth 07/17/2019 tracheal aspirate: E coli A/P: 48/M with deafness, HTN, CHF, anxiety, depression, COPD was admitted to the hospital on 07/12/2019 with shortness of breath, found to have hypoxia and renal failure and was started on urgent dialysis, now with: #Shock, following PEA cardiac arrest #Bilateral multifocal pneumonia, acute respiratory failure: Possibly aspiration v/s lung contusion from CPR following cardiac arrest. Culture growing GNR. Empiric cefepime, vancomycin and Flagyl for now, anticipate stopping vancomycin soon. #Acute renal failure: Dialysis requiring. Nephrology following, evaluating for glomerulonephritis and vasculitis. Patient also has rare schistocytes in peripheral blood along with few eosinophils in urine. Renally dose abx. #CHF #Acute encephalopathy: post arrest. Recs: - Empiric renally dosed cefepime, Flagyl for now Likely 8 day course. Stop after today's doses/ - follow up fever and WBC - possible central fevers - Poor prognosis. Will follow. Salo Morgan MD [facility] M: [phone] O: [phone] F: [phone] Subjective Date of service: 07/25/19 Principal diagnosis: post anoxic brain injury Interval history: One time fever recurrence. Objective - Exam Narrative Exam: Constitutional: Intubated Head, Ears, Nose: Normocephalic, atraumatic. Cardiovascular: S1, S2 normal. Respiratory: Good air entry, clear to auscultation bilaterally GI: Soft, non-tender; bowel sounds + Musculoskeletal: No pedal edema, no cyanosis. Skin: No rash or abscess Hem/Lymphatic: No palpable cervical or supraclavicular nodes. No lymphangitis Psych: None-responsive. Neurological: Non-responsive - Constitutional Vitals: Vital Signs Temp Pulse Resp BP Pulse Ox 100.5 F H 104 H 20 141/75 95 07/25/19 08:00 07/25/19 13:00 07/25/19 13:00 07/25/19 13:00 07/25/19 13:00 Temperature -Last 24 Hours Temperature 100.5 F Temperature 98 F Temperature 100 F Temperature 99.6 F Temperature 99.6 F Temperature 99 F - Labs CBC & Chem 7: 07/25/19 04:05 07/25/19 04:05 Labs: Abnormal lab results 07/25/19 07/25/19 07/25/19 Range/Units 04:05 04:05 05:27 WBC 11.4 H (4.5-11.0) K/mm3 RBC 2.39 L (3.65-5.03) M/mm3 Hgb 7.5 L (11.8-15.2) gm/dl Hct 23.0 L (35.5-45.6) % MCV 96 H (84-94) fl RDW 19.4 H (13.2-15.2) % Seg Neuts % (Manual) 76.0 H (40.0-70.0) % Lymphocytes % (Manual) 9.0 L (13.4-35.0) % Monocytes % (Manual) 11.0 H (0.0-7.3) % Seg Neutrophils # Man 8.7 H (1.8-7.7) K/mm3 Lymphocytes # (Manual) 1.0 L (1.2-5.4) K/mm3 Monocytes # (Manual) 1.3 H (0.0-0.8) K/mm3 ABG pH 7.457 H (7.350-7.450) pH Units ABG pO2 75.5 L (80.0-90.0) mm Hg ABG HCO3 27.2 H (20.0-26.0) mmol/L ABG Base Excess 3.1 H (-2.0-3.0) mmol/L ABG Hemoglobin 7.0 L (14.0-18.0) gm/dl Oxyhemoglobin 94.4 L (95.0-99.0) % Sodium 147 H (137-145) mmol/L Chloride 110.1 H (98-107) mmol/L BUN 62 H (9-20) mg/dL Glucose 115 H (75-100) mg/dL
--- NOTE | 2019-07-25 14:57 | Progress Note ---
Assessment and Plan Assessment and plan: 48-year-old man with a history of being deaf (writes to communicate) HTN, Systolic CHF(EF 20%), anxiety, depression COPD and GERD who presented to [facility] ED with severe SOB. EMS found patient to have a pulse oximetry of 80% on room air, improved to 92% on 2 L of supplemental oxygen. Patient was confused and provided limited history. Patient refused BiPAP. Patient given 40 mg of Lasix IV and and EMS gave 40mg iv lasix prior to arrival. Patient was found to have left lower lobe pneumonia, complicated by acute respiratory failure, severe Uremia, hyponatremia, hyperkalemia, metabolic acidosis. Patient admitted to medical floor for medical stabilization and treatment due to high risk for cardiopul monary and renal decompensation. Nephrology team consulted in ED for urgent dialysis. Patient initiated on pneumonia protocol with IV antibiotic therapy. Patient treated with calcium gluconate and Kayexalate for hyperkalemia in ED. EKG showed no changes. Patient mental status so poor he had to be put in restraints to prevent for pulling and removing O2. Next day, patient remained confused, so He went down for CT head and he must've removed O2 mask while in CT scanner or had a fatal cardiac arrhythmia which he was experiencing NSVT/aflutter with RVR the night before. This led to Cardiac arrest. ED physician was the first to respond and saw Asystole on the monitor, ACLS done and when I arrived he was in PEA. He was a difficult Intubation as he had bleeding in the Endotracheal area due to Eliquis which was started on 07/16/2019. He was intubated by ED physician. Pulse was restored and he was sent to the ICU, where he had another Cardiac arrest with PEA, ACLS done again and pulse meg red. Overnight he was posturing. He is comatose without any sedative. -History of deafness * pCXR showed bilateral pleural effusion with significant pulmonary congestion. EKG showed no ST elevation. * Initial Labs: WBC 14.7, hgb 9.7, plt 124, Na 125, k 5.5, co2 13, BUN 70, Cr 8.8 * brain MRI shows volume loss and chronic white matter changes. 8 mm focus of subacute ischemia is identified in the right posterior temporal white matter. No findings to suggest diffuse anoxic injury. Acute on chronic systolic heart failure decompensation leading to respiratory failure: Meds optimized. Improving with dialysis. Bilateral pneumonia; continue antibiotics per ID, today is last day Acute on chronic CHF, EF 25%. Medications optimized per cardiology, patient now appears to be improving Fluid overload, Ascites, status post paracentesis on 07/15, 3.2 L removed. Received dialysis. Acute hypoxic respiratory failure on MV > 96 hours, continue mechanical ventilator Severe ARF due to ATN, no longer needing HD. Nephrology input appreciated, has good urine output. HD cath now removed. acute metabolic encephalopathy, acute metabolic encephalopathy, poa, thought to be due to severe Uremia, but uremia improved and he still not responsive , needing restraints for agitation CVA; noted on MRI, awaiting neurology recommendations Anemia appears AOCD due to renal dysfunction: continue to monitor cbc Thrombocytopenia: Likely due to alcohol abuse, resolved Morbid Obesity, bmi 44.1: eligibility counselor on lifestyle modification if patient improves Transient A. fib/a flutter on NSVT. Now resolved, no further medication or work-up required Hypokalemia; repleted Hypertensive urgency; BP meds adjusted, improving History of nonadherence, alcohol abuse, plan to eligibility counselor patient to be his mentation improves. full code DVT ppx: Michelle Discussed the goals of care and updated his father and his father's girlfriend. Explained the very poor prognosis. They would like to have family meeting with other family members and will return to us with a plan. Explained the options of hospice and removal of right support versus trach and PEG and intermediate. They are leaning towards trach PEG and intermediate. Still waiting to hear their decision. Advanced care planning performed for 30 minutes. Critical care time 35 minutes. History Interval history: No fevers No vomiting no seizure-like activity No diarrhea No agitation No obvious discomfort Hospitalist Physical - Physical exam Narrative exam: General.: Appears ill, not responsive HEENT: Moist mucous membranes, extraocular muscles intact, no lymphadenopathy Neck: supple Cardiac: S1-S2 heard Lungs: Rhonchorous and ventilated breath sounds. Abdomen: soft , nontender, nondistended, bowel sounds positive Extremities: no edema clubbing or cyanosis Skin: no rash or lesions Neurologic: Intubated, not responsive, has some spontaneous movements - Constitutional Vitals: Temp Pulse Resp BP Pulse Ox 100.5 F H 105 H 20 155/87 96 07/25/19 08:00 07/25/19 14:43 07/25/19 13:00 07/25/19 14:43 07/25/19 14:43 General appearance: Present: no acute distress Results - Labs CBC & Chem 7: 07/25/19 04:05 07/25/19 04:05 Labs: Laboratory Last Values WBC 11.4 K/mm3 (4.5-11.0) H 07/25/19 04:05 RBC 2.39 M/mm3 (3.65-5.03) L 07/25/19 04:05 Hgb 7.5 gm/dl (11.8-15.2) L 07/25/19 04:05 Hct 23.0 % (35.5-45.6) L 07/25/19 04:05 MCV 96 fl (84-94) H 07/25/19 04:05 MCH 31 pg (28-32) 07/25/19 04:05 MCHC 33 % (32-34) 07/25/19 04:05 RDW 19.4 % (13.2-15.2) H 07/25/19 04:05 Plt Count 333 K/mm3 (140-440) 07/25/19 04:05 Lymph % (Auto) Boarding Mother 07/13/19 04:28 [place] % (Auto) Boarding Mother 07/13/19 04:28 Eos % (Auto) Boarding Mother 07/13/19 04:28 Baso % (Auto) Boarding Mother 07/13/19 04:28 Lymph # Boarding Mother 07/13/19 04:28 [place] # Boarding Mother 07/13/19 04:28 Eos # Boarding Mother 07/13/19 04:28 Baso # Boarding Mother 07/13/19 04:28 Add Manual Diff Complete 07/25/19 04:05 Total Counted 100 07/25/19 04:05 Seg Neutrophils % Boarding Mother 07/13/19 04:28 Seg Neuts % (Manual) 76.0 % (40.0-70.0) H 07/25/19 04:05 Band Neutrophils % 0 % 07/25/19 04:05 Lymphocytes % (Manual) 9.0 % (13.4-35.0) L 07/25/19 04:05 Reactive Lymphs % (Man) 0 % 07/25/19 04:05 Monocytes % (Manual) 11.0 % (0.0-7.3) H 07/25/19 04:05 Eosinophils % (Manual) 2.0 % (0.0-4.3) 07/25/19 04:05 Basophils % (Manual) 0 % (0.0-1.8) 07/25/19 04:05 Metamyelocytes % 2.0 % 07/25/19 04:05 Myelocytes % 0 % 07/25/19 04:05 Promyelocytes % 0 % 07/25/19 04:05 Blast Cells % 0 % 07/25/19 04:05 Nucleated RBC % Not Reportable 07/25/19 04:05 Seg Neutrophils # Boarding Mother 07/13/19 04:28 Seg Neutrophils # Man 8.7 K/mm3 (1.8-7.7) H 07/25/19 04:05 Band Neutrophils # 0.0 K/mm3 07/25/19 04:05 Lymphocytes # (Manual) 1.0 K/mm3 (1.2-5.4) L 07/25/19 04:05 Abs React Lymphs (Man) 0.0 K/mm3 07/25/19 04:05 Monocytes # (Manual) 1.3 K/mm3 (0.0-0.8) H 07/25/19 04:05 Eosinophils # (Manual) 0.2 K/mm3 (0.0-0.4) 07/25/19 04:05 Basophils # (Manual) 0.0 K/mm3 (0.0-0.1) 07/25/19 04:05 Metamyelocytes # 0.2 K/mm3 07/25/19 04:05 Myelocytes # 0.0 K/mm3 07/25/19 04:05 Promyelocytes # 0.0 K/mm3 07/25/19 04:05 Blast Cells # 0.0 K/mm3 07/25/19 04:05 WBC Morphology Not Reportable 07/25/19 04:05 Hypersegmented Neuts Not Reportable 07/25/19 04:05 Hyposegmented Neuts Not Reportable 07/25/19 04:05 Hypogranular Neuts Not Reportable 07/25/19 04:05 Smudge Cells Not Reportable 07/25/19 04:05 Toxic Granulation Not Reportable 07/25/19 04:05 Toxic Vacuolation Not Reportable 07/25/19 04:05 Dohle Bodies Not Reportable 07/25/19 04:05 Pelger-Huet Anomaly Not Reportable 07/25/19 04:05 Mack Rods Not Reportable 07/25/19 04:05 Platelet Estimate Consistent w auto 07/25/19 04:05 Clumped Platelets Not Reportable 07/25/19 04:05 Plt Clumps, EDTA Not Reportable 07/25/19 04:05 Large Platelets Not Reportable 07/25/19 04:05 Giant Platelets Not Reportable 07/25/19 04:05 Platelet Satelliting Not Reportable 07/25/19 04:05 Plt Morphology Comment Not Reportable 07/25/19 04:05 RBC Morphology Not Reportable 07/25/19 04:05 Dimorphic RBCs Not Reportable 07/25/19 04:05 Polychromasia Not Reportable 07/25/19 04:05 Hypochromasia 1+ 07/25/19 04:05 Poikilocytosis Not Reportable 07/25/19 04:05 Anisocytosis Few 07/25/19 04:05 Microcytosis Not Reportable 07/25/19 04:05 Macrocytosis Not Reportable 07/25/19 04:05 Spherocytes Not Reportable 07/25/19 04:05 Pappenheimer Bodies Not Reportable 07/25/19 04:05 Sickle Cells Not Reportable 07/25/19 04:05 Target Cells Not Reportable 07/25/19 04:05 Tear Drop Cells Not Reportable 07/25/19 04:05 Ovalocytes Not Reportable 07/25/19 04:05 Helmet Cells Not Reportable 07/25/19 04:05 [place] Bodies Not Reportable 07/25/19 04:05 [place] Rings Not Reportable 07/25/19 04:05 [place] Cells Not Reportable 07/25/19 04:05 Bite Cells Not Reportable 07/25/19 04:05 Crenated Cell Not Reportable 07/25/19 04:05 Elliptocytes Not Reportable 07/25/19 04:05 Acanthocytes (Spur) Not Reportable 07/25/19 04:05 Rouleaux Not Reportable 07/25/19 04:05 Hemoglobin C Crystals Not Reportable 07/25/19 04:05 Schistocytes Rare 07/25/19 04:05 Malaria parasites Not Reportable 07/25/19 04:05 Víctor Bodies Not Reportable 07/25/19 04:05 Hem Pathologist Commnt No 07/25/19 04:05 PT 19.8 Sec. (12.2-14.9) H 07/12/19 15:08 INR 1.65 (0.87-1.13) H 07/12/19 15:08 APTT 47.8 Sec. (24.2-36.6) H 07/12/19 15:08 ABG pH 7.457 pH Units (7.350-7.450) H 07/25/19 05:27 ABG pCO2 39.4 mm Hg 07/25/19 05:27 ABG pO2 75.5 mm Hg (80.0-90.0) L 07/25/19 05:27 ABG HCO3 27.2 mmol/L (20.0-26.0) H 07/25/19 05:27 ABG O2 Saturation 97.1 % (95.0-99.0) 07/25/19 05:27 ABG O2 Content 9.4 (0.0-44) 07/25/19 05:27 ABG Base Excess 3.1 mmol/L (-2.0-3.0) H 07/25/19 05:27 ABG Hemoglobin 7.0 gm/dl (14.0-18.0) L 07/25/19 05:27 ABG Carboxyhemoglobin 2.2 % (0.0-5.0) 07/25/19 05:27 ABG Methemoglobin 0.5 % (0.0-1.5) 07/25/19 05:27 Oxyhemoglobin 94.4 % (95.0-99.0) L 07/25/19 05:27 FiO2 30 % 07/25/19 05:27 Sodium 147 mmol/L (137-145) H 07/25/19 04:05 Potassium 4.0 mmol/L (3.6-5.0) 07/25/19 04:05 Chloride 110.1 mmol/L (98-107) H 07/25/19 04:05 Carbon Dioxide 25 mmol/L (22-30) 07/25/19 04:05 Anion Gap 16 mmol/L 07/25/19 04:05 BUN 62 mg/dL (9-20) H 07/25/19 04:05 Creatinine 1.5 mg/dL (0.8-1.5) 07/25/19 04:05 Estimated GFR > 60 ml/min 07/25/19 04:05 BUN/Creatinine Ratio 41 % 07/25/19 04:05 Glucose 115 mg/dL (75-100) H 07/25/19 04:05 POC Glucose 122 (70-105) H 07/17/19 12:52 Calcium 8.8 mg/dL (8.4-10.2) 07/25/19 04:05 Phosphorus 2.70 mg/dL (2.5-4.5) 07/24/19 07:03 Magnesium 1.50 mg/dL (1.7-2.3) L 07/24/19 07:03 Iron 15 ug/dL (49-181) L 07/15/19 06:30 TIBC 186 mcg/dL (250-450) L 07/15/19 06:30 Ferritin 428.2 ng/mL (13.0-400.0) H 07/15/19 06:30 Total Bilirubin 1.10 mg/dL (0.1-1.2) 07/18/19 05:40 Direct Bilirubin 0.7 mg/dL (0-0.2) H 07/18/19 05:40 Indirect Bilirubin 0.4 mg/dL 07/18/19 05:40 AST 94 units/L (5-40) H 07/18/19 05:40 ALT 16 units/L (7-56) 07/18/19 05:40 Alkaline Phosphatase 159 units/L (35-129) H 07/18/19 05:40 Lactate Dehydrogenase 294 units/L (91-180) H 07/18/19 05:40 Total Creatine Kinase 59 units/L (55-170) 07/14/19 07:16 Troponin T 0.188 ng/mL (0.00-0.029) H* 07/12/19 17:04 NT-Pro-B Natriuret Pep > 91840 pg/mL (0-450) H 07/12/19 15:08 Total Protein 5.6 g/dL (6.3-8.2) L D 07/18/19 05:40 Albumin 2.5 g/dL (3.9-5) L 07/18/19 05:40 Albumin/Globulin Ratio 0.8 % 07/18/19 05:40 Triglycerides 128 mg/dL (2-149) 07/12/19 15:08 Cholesterol 121 mg/dL (50-199) 07/12/19 15:08 LDL Cholesterol Direct 40 mg/dL (50-130) L 07/12/19 15:08 HDL Cholesterol 44 mg/dL (40-59) 07/12/19 15:08 Cholesterol/HDL Ratio 2.75 % 07/12/19 15:08 Vitamin B12 960.4 pg/mL (211-911) H 07/21/19 08:00 Folate 6.18 ng/mL (7.3-26.0) L 07/21/19 08:00 Procalcitonin 8.19 ng/mL (<0.15) 07/23/19 05:30 Urine Color Eugenia (Yellow) 07/14/19 17:28 Urine Turbidity Slightly-cloudy (Clear) 07/14/19 17:28 Urine pH 5.0 (5.0-7.0) 07/14/19 17:28 Ur Specific [place] 1.014 (1.003-1.030) 07/14/19 17:28 Urine Protein 100 mg/dl mg/dL (Negative) 07/14/19 17:28 Urine Glucose (UA) Neg mg/dL (Negative) 07/14/19 17: Urine Ketones Neg mg/dL (Negative) 07/14/19 17:28 Urine Blood Sm (Negative) 07/14/19 17:28 Urine Nitrite Neg (Negative) 07/14/19 17: Urine Bilirubin Neg (Negative) 07/14/19 17:28 Urine Urobilinogen < 2.0 mg/dL (<2.0) 07/14/19 17:28 Ur Leukocyte Esterase Neg (Negative) 07/14/19 17:28 Urine WBC (Auto) 31.0 /HPF (0.0-6.0) H 07/14/19 17:28 Urine RBC (Auto) 3.0 /HPF (0.0-6.0) 07/14/19 17:28 U Epithel Cells (Auto) < 1.0 /HPF (0-13.0) 07/14/19 17:28 Urine Bacteria (Auto) 1+ /HPF (Negative) 07/14/19 17:28 Urine Mucus Few /HPF 07/14/19 17:28 Urine Yeast (Budding) Few /HPF 07/14/19 17:28 Urine Eosinophils Rare seen (None Seen) 07/14/19 17:28 Urine Creatinine 106.2 mg/dL (0.1-20.0) H 07/14/19 17:28 Protein/Creatinin Ratio 1.66 07/14/19 16:40 Urine Sodium 67 mmol/L 07/14/19 17:28 Urine Urea Nitrogen 100 07/14/19 17:28 Urine Total Protein 173 mg/dL (5-11.8) H 07/14/19 16:40 Fluid Type Paracentesis 07/14/19 10:45 Fluid Color Bloody 07/14/19 10:45 Fluid Appearance Bloody 07/14/19 10:45 Fluid WBC 120 /mm3 07/14/19 10:45 Fluid RBC 43371 /mm3 07/14/19 10:45 Fluid Seg Neutrophils 33.0 % 07/14/19 10:45 Fluid Lymphocytes 17.0 % 07/14/19 10:45 Fluid Reactive Lymphs 0 % 07/14/19 10:45 Fluid Monocytes 50.0 % 07/14/19 10:45 Fluid Eosinophils 0 % 07/14/19 10:45 Fluid Basophils 0 % 07/14/19 10:45 Fluid Glucose 93 mg/dL (40-70) H 07/14/19 10:45 Fluid Total Protein 4.7 (15.0-45.0) L 07/14/19 10:45 Fluid LDH 07/14/19 10:45 Random Vancomycin 14.5 ug/mL (0-40.0) 07/19/19 05:15 SHANNA Screen Negative (Negative) 07/14/19 11:50 Proteinase 3 (PR3) Ab <1.0 AI (<1.0) 07/14/19 11:50 Myeloperoxidase Ab <1.0 AI (<1.0) 07/14/19 11:50 Glomerular Base Mem IgG See scanned result 07/14/19 11:50 Complement C3 124 mg/dL (82-185) 07/14/19 11:50 Complement C4 28 mg/dL (15-53) 07/14/19 11:50 Hepatitis A IgM Ab Non-reactive (NonReactive) 07/12/19 17:49 Hep Bs Antigen Non-reactive (Negative) 07/14/19 11:50 Hep B Core IgM Ab Non-reactive (NonReactive) 07/12/19 17:49 Hepatitis C Antibody Non-reactive (NonReactive) 07/14/19 11:50 HIV-1 Antibody See scanned result 07/14/19 11:50 HIV-2 Ab (Immunoblot) See scanned result 07/14/19 11:50 Schistocytes Smear Rare 07/18/19 05:40 Active Medications - Current Medications Current Medications: Generic Name Dose Route Start Last Admin Trade Name Freq PRN Reason Stop Dose Admin Acetaminophen 650 mg 07/20/19 16:56 07/22/19 01:58 Tylenol FEEDTUBE 650 mg Q6H PRN Administration Fever >101 Albuterol 2.5 mg 07/14/19 04:54 07/16/19 13:42 Proventil IH 2.5 mg Q4HRT PRN Administration Shortness Of Breath Amlodipine Besylate 10 mg 07/23/19 11:00 07/25/19 09:55 Amlodipine PO 10 mg QDAY TERRELL Administration Lipase/Protease/Amylase 1 each 07/18/19 13:[address] 10,500 Unit FEEDTUBE PRN PRN For Clogged Feeding Tube Clonidine HCl 0.1 mg 07/23/19 11:00 07/25/19 09:56 Catapres PO 0.1 mg Q12HR TERRELL Administration Epoetin Barney 10,000 unit 07/14/19 10:13 07/18/19 22:04 Procrit IV 10,000 unit CHEMA PRN Administration DIALYSIS Fentanyl 25 mcg 07/25/19 10:51 Sublimaze IV Q2HR PRN Pain, Moderate (4-6) Haloperidol Lactate 5 mg 07/12/19 21:35 07/24/19 12:00 Haldol IV 5 mg Q1H PRN Administration Unrespon. to mult. doses BZD's Hydralazine HCl 10 mg 07/23/19 10:46 07/23/19 10:59 Apresoline IV 10 mg Q4HR PRN Administration BP >160/100 Sodium Chloride 100 mls @ 999 mls/hr 07/16/19 12:11 Nacl 0.9% IV CHEMA PRN Hypotension Vasopressin 20 unit/ Sodium 101 mls @ 9.09 mls/hr 07/17/19 15:00 Chloride IV TITR TERRELL Protocol 0.03 UNITS/MIN Metronidazole 500 mg in 100 mls @ 100 mls/hr 07/17/19 17:00 07/25/19 13:15 Flagyl 500 Mg/100 Ml IV 100 mls/hr Q8HR TERRELL Administration Protocol Cefepime HCl 1 gm in 100 mls @ 200 mls/hr 07/17/19 17:20 07/24/19 17:30 Cefepime/Ns 1 Gm/100 Ml IV 200 mls/hr Q24H TERRELL Administration Lansoprazole 30 mg 07/18/19 11:00 07/25/19 09:56 Prevacid Solutab FEEDTUBE 30 mg QDAY TERRELL Administration Lorazepam 1 mg 07/25/19 08:34 07/25/19 08:45 Ativan IV 1 mg Q4H PRN Administration Agitation Scopolamine 1 each 07/23/19 11:00 07/23/19 11:02 Transderm-Scop TD 1 each Q3D TERRELL Administration Simple Syrup 15 ml 07/18/19 13:20 Simple Syrup FEEDTUBE PRN PRN Hypoglycemia Simple Syrup 30 ml 07/18/19 13:20 Simple Syrup FEEDTUBE PRN PRN Hypoglycemia Sodium Bicarbonate 325 mg 07/18/19 13:20 Sodium Bicarbonate FEEDTUBE PRN PRN For Clogged Feeding Tube Thiamine HCl 100 mg 07/22/19 10:00 07/25/19 10:02 Vitamin B-1 PO 100 mg QDAY TERRELL Administration Nutrition/Malnutrition Assess - Dietary Evaluation Nutrition/Malnutrition Findings: Nutrition Notes Start: 07/18/19 12:09 Freq: Status: Active Protocol: Document 07/24/19 10:53 MK (Rec: 07/24/19 10:57 MK [id number]) Co-Sign 07/24/19 10:53 LP Nutrition Notes Initial or Follow up Reassessment Current Diagnosis Acute Kidney Injury, Hypertension,Heart Failure, Respiratory Failure Other Pertinent Diagnosis on HD , metabolic acidosis, pnuemonia Current Diet Nepro at 41ml/hr Labs/Tests K 3.4 BUN 70 Cr 1.8 Pertinent Medications Reviewed Height 5 ft 10 in Weight 102 kg [place] Body Weight (kg) 75.45 BMI 32.2 Subjective/Other Information Pt tolerating Nepro at 41ml/hr . Pt remains on vent. Percent of energy/protein needs met: 100%/53% Burn Absent Trauma Absent GI Symptoms None Difficulty In Swallowing,Chewing Current % PO Negligible Minimum of two criteria Yes Energy Intake (severe) < or equal to 50% Estimated Energy Requirement > or equal to 5 days Muscle Mass Mild Depletion (non-severe) Fluid Accumulation Moderate to Severe (severe) Reduced Cream Tester Strength Measurably Reduced (severe) #2 Nutrition Diagnosis Malnutrition Diagnosis Progress(for reassessment Continues documentation) #1 Nutrition Diagnosis Inadequate oral intake Diagnosis Progress(for reassessment Continues documentation) Is patient on ventilator? Yes Is Patient Ambulatory and/or Out of Bed No REE-([facility]-confined to bed) 2272.980 Kcal/Kg value to use for calculation 17 Approximate Energy Requirements Using 1734 kcal/Kg Calculation Used for Recommendations Kcal/kg Additional Notes Protein needs: 150 g (> 2 g/ kgIBW) Fluid needs: 1ml/kcal or per MD Nutrition Intervention Change Diet Order: TF Nutrition Support: Nepro 1.8 at 41 ml/hr. Water flush of 130 ml q4h. Kcal 1,771 Protein (gm) 80 Fluid (mL) 715 Goal #1 Meet at least 75% of protein and energy needs Anticipated Discharge Needs: unble to determine at this time Follow-Up By: 07/31/19 Additional Comments Follow for stable TF tolerance
[2019-07-25] MEDS: CEFEPIME/NS 1 GM/100 ML 1 GM/100 ML BAG IV SCH (17:11)
--- NOTE | 2019-07-26 02:40 | XRay Report ---
CHEST 1 VIEW 07/26/2019 2:10 AM INDICATION / CLINICAL INFORMATION: Hypoxemia. COMPARISON: One view of the chest from 07/23/2019. FINDINGS: SUPPORT DEVICES: Stable positioning. HEART / MEDIASTINUM: Stable. LUNGS / PLEURA: There is a similar small to moderate left pleural effusion with similar bilateral pul monary opacities, right greater than left. No pneumothorax. ADDITIONAL FINDINGS: No significant additional findings. IMPRESSION: Stable appearance of the chest. Signer Name: Lazaro Dominguez MD Signed: 07/26/2019 2:35 AM Workstation Name: [id number]
[2019-07-26 05:34] LABS: BUN/Creatinine Ratio 44; Blood Urea Nitrogen 57 mg/dL (9-20); Calcium 8.9 mg/dL (8.4-10.2); Hemolysis Index 29
[2019-07-26] MEDS: THIAMINE 100 MG TAB PO SCH (09:33)
[2019-07-26] MEDS: LANSOPRAZOLE 30 MG SOLUTAB FEEDTUBE SCH (09:33)
[2019-07-26] MEDS: amLODIPine 10 MG TAB PO SCH (09:33)
[2019-07-26] MEDS: LORazepam 2 MG/ML VIAL IV PRN ×2 (09:34→12:33)
[2019-07-26] MEDS: cloNIDine 0.1 MG TAB PO SCH (09:34)
--- NOTE | 2019-07-26 10:07 | Progress Note ---
Assessment and Plan Assessment and plan: 48-year-old man with a history of being deaf (writes to communicate) HTN, Systolic CHF(EF 20%), anxiety, depression COPD and GERD who presented to [facility] ED with severe SOB. EMS found patient to have a pulse oximetry of 80% on room air, improved to 92% on 2 L of supplemental oxygen. Patient was confused and provided limited history. Patient refused BiPAP. Patient given 40 mg of Lasix IV and and EMS gave 40mg iv lasix prior to arrival. Patient was found to have left lower lobe pneumonia, complicated by acute respiratory failure, severe Uremia, hyponatremia, hyperkalemia, metabolic acidosis. Patient admitted to medical floor for medical stabilization and treatment due to high risk for cardiopul monary and renal decompensation. Nephrology team consulted in ED for urgent dialysis. Patient initiated on pneumonia protocol with IV antibiotic therapy. Patient treated with calcium gluconate and Kayexalate for hyperkalemia in ED. EKG showed no changes. Patient mental status so poor he had to be put in restraints to prevent for pulling and removing O2. Next day, patient remained confused, so He went down for CT head and he must've removed O2 mask while in CT scanner or had a fatal cardiac arrhythmia which he was experiencing NSVT/aflutter with RVR the night before. This led to Cardiac arrest. ED physician was the first to respond and saw Asystole on the monitor, ACLS done and when I arrived he was in PEA. He was a difficult Intubation as he had bleeding in the Endotracheal area due to Eliquis which was started on 07/16/2019. He was intubated by ED physician. Pulse was restored and he was sent to the ICU, where he had another Cardiac arrest with PEA, ACLS done again and pulse meg red. Overnight he was posturing. He is comatose without any sedative. -History of deafness * pCXR showed bilateral pleural effusion with significant pulmonary congestion. EKG showed no ST elevation. * Initial Labs: WBC 14.7, hgb 9.7, plt 124, Na 125, k 5.5, co2 13, BUN 70, Cr 8.8 * brain MRI shows volume loss and chronic white matter changes. 8 mm focus of subacute ischemia is identified in the right posterior temporal white matter. No findings to suggest diffuse anoxic injury. Acute on chronic systolic heart failure decompensation leading to respiratory failure: Meds optimized. Fluid was removed via dialysis, now has good urine output, improving Bilateral pneumonia; completed antibiotics on 07/25 Acute on chronic CHF, EF 25%. Medications optimized per cardiology, patient now appears to be improving Fluid overload, Ascites, status post paracentesis on 07/15, 3.2 L removed. Received dialysis. Acute hypoxic respiratory failure on MV > 96 hours, continue mechanical ventilator Severe ARF due to ATN, no longer needing HD. Nephrology input appreciated, has good urine output. HD cath now removed. acute metabolic encephalopathy, acute metabolic encephalopathy, poa, thought to be due to severe Uremia, but uremia improved and he still not responsive , needing restraints for agitation CVA; noted on MRI, optimize medications for secondary prevention, aspirin, statin, blood pressure control. Anemia appears AOCD due to renal dysfunction: continue to monitor cbc Thrombocytopenia: Likely due to alcohol abuse, resolved Obesity, bmi 32.1: middle school guidance counselor on lifestyle modification if patient improves Transient A. fib/a flutter on NSVT. Now resolved, no further medication or work-up required Hypokalemia; repleted Hypertensive urgency; continue to adjust BP meds Hypernatremia; continue free water via G-tube, added small amounts of D5 water given advanced heart failure History of nonadherence, alcohol abuse, plan to middle school guidance counselor patient to be his mentation improves. full code DVT ppx: Michelle Discussed the goals of care and updated his father, his brother and his father's girlfriend. Explained the very poor prognosis. They would like to have family meeting with other family members and will return to us with a plan. Explained the options of hospice and removal of right support versus trach and PEG and usp. the family is interested in him getting trach and PEG and placem ents. They have been advised to try to obtain insurance for him, as he will need to pay source to go to a rehab facility. -Prognosis is poor, this was conveyed to the family Advanced care planning performed for 30 minutes. Critical care time 35 minutes. History Interval history: No fevers No vomiting no seizure-like activity No diarrhea Continues to be agitated requiring Ativan pushes No obvious discomfort Hospitalist Physical - Physical exam Narrative exam: General.: Appears ill, not responsive HEENT: Moist mucous membranes, extraocular muscles intact, no lymphadenopathy Neck: supple Cardiac: S1-S2 heard Lungs: Rhonchorous and ventilated breath sounds. Abdomen: soft , nontender, nondistended, bowel sounds positive Extremities: no edema clubbing or cyanosis Skin: no rash or lesions Neurologic: Intubated, not responsive, has some spontaneous movements, chewing and fighting endotracheal tube. But does not obey commands, does not open eyes - Constitutional Vitals: Temp Pulse Resp BP Pulse Ox 98.4 F 103 H 27 H 156/81 100 07/26/19 04:00 07/26/19 09:34 07/26/19 08:21 07/26/19 09:34 07/26/19 08:21 General appearance: Present: no acute distress Results - Labs CBC & Chem 7: 07/25/19 04:05 07/26/19 04:47 Labs: Laboratory Last Values WBC 11.4 K/mm3 (4.5-11.0) H 07/25/19 04:05 RBC 2.39 M/mm3 (3.65-5.03) L 07/25/19 04:05 Hgb 7.5 gm/dl (11.8-15.2) L 07/25/19 04:05 Hct 23.0 % (35.5-45.6) L 07/25/19 04:05 MCV 96 fl (84-94) H 07/25/19 04:05 MCH 31 pg (28-32) 07/25/19 04:05 MCHC 33 % (32-34) 07/25/19 04:05 RDW 19.4 % (13.2-15.2) H 07/25/19 04:05 Plt Count 333 K/mm3 (140-440) 07/25/19 04:05 Lymph % (Auto) Design Printer Balloon 07/13/19 04:28 [place] % (Auto) [employer] Balloon 07/13/19 04:28 Eos % (Auto) [employer] Balloon 07/13/19 04:28 Baso % (Auto) [employer] Balloon 07/13/19 04:28 Lymph # [employer] Balloon 07/13/19 04:28 [place] # [employer]inter Balloon 07/13/19 04:28 Eos # [employer]inter Balloon 07/13/19 04:28 Baso # [employer]inter Balloon 07/13/19 04:28 Add Manual Diff Complete 07/25/19 04:05 Total Counted 100 07/25/19 04:05 Seg Neutrophils % [employer] Balloon 07/13/19 04:28 Seg Neuts % (Manual) 76.0 % (40.0-70.0) H 07/25/19 04:05 Band Neutrophils % 0 % 07/25/19 04:05 Lymphocytes % (Manual) 9.0 % (13.4-35.0) L 07/25/19 04:05 Reactive Lymphs % (Man) 0 % 07/25/19 04:05 Monocytes % (Manual) 11.0 % (0.0-7.3) H 07/25/19 04:05 Eosinophils % (Manual) 2.0 % (0.0-4.3) 07/25/19 04:05 Basophils % (Manual) 0 % (0.0-1.8) 07/25/19 04:05 Metamyelocytes % 2.0 % 07/25/19 04:05 Myelocytes % 0 % 07/25/19 04:05 Promyelocytes % 0 % 07/25/19 04:05 Blast Cells % 0 % 07/25/19 04:05 Nucleated RBC % Not Reportable 07/25/19 04:05 Seg Neutrophils # [employer] Printer Balloon 07/13/19 04:28 Seg Neutrophils # Man 8.7 K/mm3 (1.8-7.7) H 07/25/19 04:05 Band Neutrophils # 0.0 K/mm3 07/25/19 04:05 Lymphocytes # (Manual) 1.0 K/mm3 (1.2-5.4) L 07/25/19 04:05 Abs React Lymphs (Man) 0.0 K/mm3 07/25/19 04:05 Monocytes # (Manual) 1.3 K/mm3 (0.0-0.8) H 07/25/19 04:05 Eosinophils # (Manual) 0.2 K/mm3 (0.0-0.4) 07/25/19 04:05 Basophils # (Manual) 0.0 K/mm3 (0.0-0.1) 07/25/19 04:05 Metamyelocytes # 0.2 K/mm3 07/25/19 04:05 Myelocytes # 0.0 K/mm3 07/25/19 04:05 Promyelocytes # 0.0 K/mm3 07/25/19 04:05 Blast Cells # 0.0 K/mm3 07/25/19 04:05 WBC Morphology Not Reportable 07/25/19 04:05 Hypersegmented Neuts Not Reportable 07/25/19 04:05 Hyposegmented Neuts Not Reportable 07/25/19 04:05 Hypogranular Neuts Not Reportable 07/25/19 04:05 Smudge Cells Not Reportable 07/25/19 04:05 Toxic Granulation Not Reportable 07/25/19 04:05 Toxic Vacuolation Not Reportable 07/25/19 04:05 Dohle Bodies Not Reportable 07/25/19 04:05 Pelger-Huet Anomaly Not Reportable 07/25/19 04:05 Mack Rods Not Reportable 07/25/19 04:05 Platelet Estimate Consistent w auto 07/25/19 04:05 Clumped Platelets Not Reportable 07/25/19 04:05 Plt Clumps, EDTA Not Reportable 07/25/19 04:05 Large Platelets Not Reportable 07/25/19 04:05 Giant Platelets Not Reportable 07/25/19 04:05 Platelet Satelliting Not Reportable 07/25/19 04:05 Plt Morphology Comment Not Reportable 07/25/19 04:05 RBC Morphology Not Reportable 07/25/19 04:05 Dimorphic RBCs Not Reportable 07/25/19 04:05 Polychromasia Not Reportable 07/25/19 04:05 Hypochromasia 1+ 07/25/19 04:05 Poikilocytosis Not Reportable 07/25/19 04:05 Anisocytosis Few 07/25/19 04:05 Microcytosis Not Reportable 07/25/19 04:05 Macrocytosis Not Reportable 07/25/19 04:05 Spherocytes Not Reportable 07/25/19 04:05 Pappenheimer Bodies Not Reportable 07/25/19 04:05 Sickle Cells Not Reportable 07/25/19 04:05 Target Cells Not Reportable 07/25/19 04:05 Tear Drop Cells Not Reportable 07/25/19 04:05 Ovalocytes Not Reportable 07/25/19 04:05 Helmet Cells Not Reportable 07/25/19 04:05 [place] Bodies Not Reportable 07/25/19 04:05 [place] Rings Not Reportable 07/25/19 04:05 Shields Cells Not Reportable 07/25/19 04:05 Bite Cells Not Reportable 07/25/19 04:05 Crenated Cell Not Reportable 07/25/19 04:05 Elliptocytes Not Reportable 07/25/19 04:05 Acanthocytes (Spur) Not Reportable 07/25/19 04:05 Rouleaux Not Reportable 07/25/19 04:05 Hemoglobin C Crystals Not Reportable 07/25/19 04:05 Schistocytes Rare 07/25/19 04:05 Malaria parasites Not Reportable 07/25/19 04:05 Víctor Bodies Not Reportable 07/25/19 04:05 Hem Pathologist Commnt No 07/25/19 04:05 PT 19.8 Sec. (12.2-14.9) H 07/12/19 15:08 INR 1.65 (0.87-1.13) H 07/12/19 15:08 APTT 47.8 Sec. (24.2-36.6) H 07/12/19 15:08 ABG pH 7.457 pH Units (7.350-7.450) H 07/25/19 05:27 ABG pCO2 39.4 mm Hg 07/25/19 05:27 ABG pO2 75.5 mm Hg (80.0-90.0) L 07/25/19 05:27 ABG HCO3 27.2 mmol/L (20.0-26.0) H 07/25/19 05:27 ABG O2 Saturation 97.1 % (95.0-99.0) 07/25/19 05:27 ABG O2 Content 9.4 (0.0-44) 07/25/19 05:27 ABG Base Excess 3.1 mmol/L (-2.0-3.0) H 07/25/19 05:27 ABG Hemoglobin 7.0 gm/dl (14.0-18.0) L 07/25/19 05:27 ABG Carboxyhemoglobin 2.2 % (0.0-5.0) 07/25/19 05:27 ABG Methemoglobin 0.5 % (0.0-1.5) 07/25/19 05:27 Oxyhemoglobin 94.4 % (95.0-99.0) L 07/25/19 05:27 FiO2 30 % 07/25/19 05:27 Sodium 147 mmol/L (137-145) H 07/26/19 04:47 Potassium 3.9 mmol/L (3.6-5.0) 07/26/19 04:47 Chloride 111.5 mmol/L (98-107) H 07/26/19 04:47 Carbon Dioxide 23 mmol/L (22-30) 07/26/19 04:47 Anion Gap 16 mmol/L 07/26/19 04:47 BUN 57 mg/dL (9-20) H 07/26/19 04:47 Creatinine 1.3 mg/dL (0.8-1.5) 07/26/19 04:47 Estimated GFR > 60 ml/min 07/26/19 04:47 BUN/Creatinine Ratio 44 % 07/26/19 04:47 Glucose 121 mg/dL (75-100) H 07/26/19 04:47 POC Glucose 122 (70-105) H 07/17/19 12:52 Calcium 8.9 mg/dL (8.4-10.2) 07/26/19 04:47 Phosphorus 2.70 mg/dL (2.5-4.5) 07/24/19 07:03 Magnesium 1.50 mg/dL (1.7-2.3) L 07/26/19 04:47 Iron 15 ug/dL (49-181) L 07/15/19 06:30 TIBC 186 mcg/dL (250-450) L 07/15/19 06:30 Ferritin 428.2 ng/mL (13.0-400.0) H 07/15/19 06:30 Total Bilirubin 1.10 mg/dL (0.1-1.2) 07/18/19 05:40 Direct Bilirubin 0.7 mg/dL (0-0.2) H 07/18/19 05:40 Indirect Bilirubin 0.4 mg/dL 07/18/19 05:40 AST 94 units/L (5-40) H 07/18/19 05:40 ALT 16 units/L (7-56) 07/18/19 05:40 Alkaline Phosphatase 159 units/L (35-129) H 07/18/19 05:40 Lactate Dehydrogenase 294 units/L (91-180) H 07/18/19 05:40 Total Creatine Kinase 59 units/L (55-170) 07/14/19 07:16 Troponin T 0.188 ng/mL (0.00-0.029) H* 07/12/19 17:04 NT-Pro-B Natriuret Pep > 36709 pg/mL (0-450) H 07/12/19 15:08 Total Protein 5.6 g/dL (6.3-8.2) L D 07/18/19 05:40 Albumin 2.5 g/dL (3.9-5) L 07/18/19 05:40 Albumin/Globulin Ratio 0.8 % 07/18/19 05:40 Triglycerides 128 mg/dL (2-149) 07/12/19 15:08 Cholesterol 121 mg/dL (50-199) 07/12/19 15:08 LDL Cholesterol Direct 40 mg/dL (50-130) L 07/12/19 15:08 HDL Cholesterol 44 mg/dL (40-59) 07/12/19 15:08 Cholesterol/HDL Ratio 2.75 % 07/12/19 15:08 Vitamin B12 960.4 pg/mL (211-911) H 07/21/19 08:00 Folate 6.18 ng/mL (7.3-26.0) L 07/21/19 08:00 Procalcitonin 8.19 ng/mL (<0.15) 07/23/19 05:30 Urine Color Eugenia (Yellow) 07/14/19 17:28 Urine Turbidity Slightly-cloudy (Clear) 07/14/19 17:28 Urine pH 5.0 (5.0-7.0) 07/14/19 17:28 Ur Specific [place] 1.014 (1.003-1.030) 07/14/19 17:28 Urine Protein 100 mg/dl mg/dL (Negative) 07/14/19 17:28 Urine Glucose (UA) Neg mg/dL (Negative) 07/14/19 17:28 Urine Ketones Neg mg/dL (Negative) 07/14/19 17:28 Urine Blood Sm (Negative) 07/14/19 17: Urine Nitrite Neg (Negative) 07/14/19 17:28 Urine Bilirubin Neg (Negative) 07/14/19 17:28 Urine Urobilinogen < 2.0 mg/dL (<2.0) 07/14/19 17:28 Ur Leukocyte Esterase Neg (Negative) 07/14/19 17:28 Urine WBC (Auto) 31.0 /HPF (0.0-6.0) H 07/14/19 17:28 Urine RBC (Auto) 3.0 /HPF (0.0-6.0) 07/14/19 17:28 U Epithel Cells (Auto) < 1.0 /HPF (0-13.0) 07/14/19 17:28 Urine Bacteria (Auto) 1+ /HPF (Negative) 07/14/19 17:28 Urine Mucus Few /HPF 07/14/19 17:28 Urine Yeast (Budding) Few /HPF 07/14/19 17:28 Urine Eosinophils Rare seen (None Seen) 07/14/19 17:28 Urine Creatinine 106.2 mg/dL (0.1-20.0) H 07/14/19 17:28 Protein/Creatinin Ratio 1.66 07/14/19 16:40 Urine Sodium 67 mmol/L 07/14/19 17:28 Urine Urea Nitrogen 100 07/14/19 17:28 Urine Total Protein 173 mg/dL (5-11.8) H 07/14/19 16:40 Fluid Type Paracentesis 07/14/19 10:45 Fluid Color Bloody 07/14/19 10:45 Fluid Appearance Bloody 07/14/19 10:45 Fluid WBC 120 /mm3 07/14/19 10:45 Fluid RBC 20328 /mm3 07/14/19 10:45 Fluid Seg Neutrophils 33.0 % 07/14/19 10:45 Fluid Lymphocytes 17.0 % 07/14/19 10:45 Fluid Reactive Lymphs 0 % 07/14/19 10:45 Fluid Monocytes 50.0 % 07/14/19 10:45 Fluid Eosinophils 0 % 07/14/19 10:45 Fluid Basophils 0 % 07/14/19 10:45 Fluid Glucose 93 mg/dL (40-70) H 07/14/19 10:45 Fluid Total Protein 4.7 (15.0-45.0) L 07/14/19 10:45 Fluid LDH 07/14/19 10:45 Random Vancomycin 14.5 ug/mL (0-40.0) 07/19/19 05:15 SHANNA Screen Negative (Negative) 07/14/19 11:50 Proteinase 3 (PR3) Ab <1.0 AI (<1.0) 07/14/19 11:50 Myeloperoxidase Ab <1.0 AI (<1.0) 07/14/19 11:50 Glomerular Base Mem IgG See scanned result 07/14/19 11:50 Complement C3 124 mg/dL (82-185) 07/14/19 11:50 Complement C4 28 mg/dL (15-53) 07/14/19 11:50 Hepatitis A IgM Ab Non-reactive (NonReactive) 07/12/19 17:49 Hep Bs Antigen Non-reactive (Negative) 07/14/19 11:50 Hep B Core IgM Ab Non-reactive (NonReactive) 07/12/19 17:49 Hepatitis C Antibody Non-reactive (NonReactive) 07/14/19 11:50 HIV-1 Antibody See scanned result 07/14/19 11:50 HIV-2 Ab (Immunoblot) See scanned result 07/14/19 11:50 Schistocytes Smear Rare 07/18/19 05:40 Active Medications - Current Medications Current Medications: Generic Name Dose Route Start Last Admin Trade Name Freq PRN Reason Stop Dose Admin Acetaminophen 650 mg 07/20/19 16:56 07/22/19 01:58 Tylenol FEEDTUBE 650 mg Q6H PRN Administration Fever >101 Albuterol 2.5 mg 07/14/19 04:54 07/16/19 13:42 Proventil IH 2.5 mg Q4HRT PRN Administration Shortness Of Breath Amlodipine Besylate 10 mg 07/23/19 11:00 07/26/19 09:33 Amlodipine PO 10 mg QDAY TERRELL Administration Lipase/Protease/Amylase 1 each 07/18/19 13:20 Pancreazchapito Moeller 10,500 Unit FEEDTUBE PRN PRN For Clogged Feeding Tube Clonidine HCl 0.1 mg 07/23/19 11:00 07/26/19 09:34 Catapres PO 0.1 mg Q12HR TERRELL Administration Epoetin Barney 10,000 unit 07/14/19 10:13 07/18/19 22:04 Procrit IV 10,000 unit CHEMA PRN Administration DIALYSIS Fentanyl 25 mcg 07/25/19 10:51 Sublimaze IV Q2HR PRN Pain, Moderate (4-6) Haloperidol Lactate 5 mg 07/12/19 21:35 07/24/19 12:00 Haldol IV 5 mg Q1H PRN Administration Unrespon. to mult. doses BZD's Hydralazine HCl 10 mg 07/23/19 10:46 07/23/19 10:59 Apresoline IV 10 mg Q4HR PRN Administration BP >160/100 Sodium Chloride 100 mls @ 999 mls/hr 07/16/19 12:11 Nacl 0.9% IV CHEMA PRN Hypotension Vasopressin 20 unit/ Sodium 101 mls @ 9.09 mls/hr 07/17/19 15:00 Chloride IV TITR TERRELL Protocol 0.03 UNITS/MIN Lansoprazole 30 mg 07/18/19 11:00 07/26/19 09:33 Prevacid Solutab FEEDTUBE 30 mg QDAY TERRELL Administration Lorazepam 1 mg 07/25/19 08:34 07/26/19 09:34 Ativan IV 1 mg Q4H PRN Administration Agitation Scopolamine 1 each 07/23/19 11:00 07/23/19 11:02 Transderm-Scop TD 1 each Q3D TERRELL Administration Simple Syrup 15 ml 07/18/19 13:20 Simple Syrup FEEDTUBE PRN PRN Hypoglycemia Simple Syrup 30 ml 07/18/19 13:20 Simple Syrup FEEDTUBE PRN PRN Hypoglycemia Sodium Bicarbonate 325 mg 07/18/19 13:20 Sodium Bicarbonate FEEDTUBE PRN PRN For Clogged Feeding Tube Thiamine HCl 100 mg 07/22/19 10:00 07/26/19 09:33 Vitamin B-1 PO 100 mg QDAY TERRELL Administration Nutrition/Malnutrition Assess - Dietary Evaluation Nutrition/Malnutrition Findings: Nutrition Notes Start: 07/18/19 12:09 Freq: Status: Active Protocol: Document 07/24/19 10:53 MK (Rec: 07/24/19 10:57 MK [id number]) Co-Sign 07/24/19 10:53 LP Nutrition Notes Initial or Follow up Reassessment Current Diagnosis Acute Kidney Injury, Hypertension,Heart Failure, Respiratory Failure Other Pertinent Diagnosis on HD , metabolic acidosis, pnuemonia Current Diet Nepro at 41ml/hr Labs/Tests K 3.4 BUN 70 Cr 1.8 Pertinent Medications Reviewed Height 5 ft 10 in Weight 102 kg [place] Body Weight (kg) 75.45 BMI 32.2 Subjective/Other Information Pt tolerating Nepro at 41ml/hr . Pt remains on vent. Percent of energy/protein needs met: 100%/53% Burn Absent Trauma Absent GI Symptoms None Difficulty In Swallowing,Chewing Current % PO Negligible Minimum of two criteria Yes Energy Intake (severe) < or equal to 50% Estimated Energy Requirement > or equal to 5 days Muscle Mass Mild Depletion (non-severe) Fluid Accumulation Moderate to Severe (severe) Reduced Brush Clearer Surveying Strength Measurably Reduced (severe) #2 Nutrition Diagnosis Malnutrition Diagnosis Progress(for reassessment Continues documentation) #1 Nutrition Diagnosis Inadequate oral intake Diagnosis Progress(for reassessment Continues documentation) Is patient on ventilator? Yes Is Patient Ambulatory and/or Out of Bed No REE-([facility]-confined to bed) 2272.980 Kcal/Kg value to use for calculation 17 Approximate Energy Requirements Using 1734 kcal/Kg Calculation Used for Recommendations Kcal/kg Additional Notes Protein needs: 150 g (> 2 g/ kgIBW) Fluid needs: 1ml/kcal or per MD Nutrition Intervention Change Diet Order: TF Nutrition Support: Nepro 1.8 at 41 ml/hr. Water flush of 130 ml q4h. Kcal 1,771 Protein (gm) 80 Fluid (mL) 715 Goal #1 Meet at least 75% of protein and energy needs Anticipated Discharge Needs: unble to determine at this time Follow-Up By: 07/31/19 Additional Comments Follow for stable TF tolerance
--- NOTE | 2019-07-26 10:08 | Progress Note ---
Assessment and Plan Acute Kidney Injury possibly prerenal/ATN, cardiorenal syndrome, diuretics, ACEI, AIN from NSAIDs, ? underlying CKD process, no obstruction Hyperkalemia High Anion Gap Metabolic Acidosis Acute respiratory failure LLL PNA Anemia Hypomagnesemia S/p Cardiac Arrest Acute on chronic systolic CHF Questionable Anoxic Brain Injury Plan: - Cr trending down. - Dced Vascath yesterday. - Epogen dosing for anemia management - Renal US mentioned moderate ascites, but no hydronephrosis - intubated on Vent. - Neuro evaluated pt, recommend MRI Brain, f/u recs - S/p US guided paracentesis with removal of 3200 ml on 07/15/19 - Renally dose medications Corky Newby MD [phone] Subjective Date of service: 07/26/19 Principal diagnosis: post anoxic brain injury Objective - Exam Narrative Exam: General appearance: well-developed, intubated EENT: ATNC, PERRL, mucous membranes dry Neck: no JVD, no carotid bruit Respiratory: Present: Clear to Ascultation Cardiology: regular, S1S2 Gastrointestinal: normoactive bowel sounds, no tenderness, no distended Integumentary: no rash, warm and dry Neurologic: other (intubated) Musculoskeletal: other (trace pitting edema) Psychiatric: other (intubated) - Vital Signs Vital signs: Vital Signs - 12hr 07/25/19 07/25/19 07/25/19 22:17 22:37 23:00 Temperature Pulse Rate 90 103 H 93 H Pulse Rate [ From Monitor] Respiratory 16 Rate Blood Pressure 134/66 144/72 145/78 O2 Sat by Pulse 97 96 Oximetry 07/25/19 07/26/19 07/26/19 23:07 00:00 01:00 Temperature 98.2 F Pulse Rate 85 93 H 82 Pulse Rate [ 90 From Monitor] Respiratory 16 24 19 Rate Blood Pressure 145/78 143/75 141/73 O2 Sat by Pulse 97 95 95 Oximetry 07/26/19 07/26/19 07/26/19 02:00 03:00 04:00 Temperature 98.4 F Pulse Rate 93 H 95 H 95 H Pulse Rate [ 101 H From Monitor] Respiratory 20 15 15 Rate Blood Pressure 144/75 147/83 154/82 O2 Sat by Pulse 95 95 95 Oximetry 07/26/19 07/26/19 07/26/19 04:08 05:00 06:00 Temperature Pulse Rate 88 96 H 106 H Pulse Rate [ From Monitor] Respiratory 16 19 Rate Blood Pressure 154/82 157/81 164/96 O2 Sat by Pulse 97 95 96 Oximetry 07/26/19 07/26/19 07/26/19 07:00 08:00 08:21 Temperature Pulse Rate 105 H 99 H 112 H Pulse Rate [ 99 H From Monitor] Respiratory 15 19 27 H Rate Blood Pressure 166/91 160/84 178/94 O2 Sat by Pulse 97 96 100 Oximetry 07/26/19 07/26/19 09:33 09:34 Temperature Pulse Rate 90 103 H Pulse Rate [ From Monitor] Respiratory Rate Blood Pressure 156/81 156/81 O2 Sat by Pulse Oximetry - Lab 07/25/19 04:05 07/26/19 04:47 Most recent lab results ABG pH 7.457 pH Units (7.350-7.450) H 07/25/19 05:27 ABG pCO2 39.4 mm Hg 07/25/19 05:27 ABG pO2 75.5 mm Hg (80.0-90.0) L 07/25/19 05:27 ABG HCO3 27.2 mmol/L (20.0-26.0) H 07/25/19 05:27 ABG O2 Saturation 97.1 % (95.0-99.0) 07/25/19 05:27 Calcium 8.9 mg/dL (8.4-10.2) 07/26/19 04:47 Phosphorus 2.70 mg/dL (2.5-4.5) 07/24/19 07:03 Magnesium 1.50 mg/dL (1.7-2.3) L 07/26/19 04:47 Urine Creatinine 106.2 mg/dL (0.1-20.0) H 07/14/19 17:28 Urine Sodium 67 mmol/L 07/14/19 17:28 Urine Total Protein 173 mg/dL (5-11.8) H 07/14/19 16:40 Medications & Allergies - Medications Allergies/Adverse Reactions: Allergies No Known Allergies Allergy (Verified 07/01/19 11:20) Home Medications: Home Medications Medication Instructions Recorded Confirmed Last Taken Type Magnesium Oxide 400 mg PO BIDAC #60 tablet 12/07/16 07/13/19 1 Day Ago Rx ~04/01/18 Thiamine [Vitamin B-1] 100 mg PO QDAY #30 tablet 12/07/16 07/13/19 2 Days Ago Rx ~09/14/17 100 mg Lisinopril [Zestril] 20 mg PO DAILY #30 tablet 09/18/17 07/13/19 Unknown Rx Pantoprazole [Protonix TAB] 40 mg PO BID #60 tablet 09/18/17 07/13/19 Unknown Rx Aspirin [Aspirin BABY CHEW TAB] 81 mg PO QDAY #30 tab.chew 07/05/19 07/13/19 Unknown Rx Furosemide [Lasix TAB] 40 mg PO BID #60 tablet 07/05/19 07/13/19 Unknown Rx Nitroglycerin [Nitrostat] 0.4 mg SL .Q5MIN PRN #10 tablet 07/05/19 07/13/19 Unknown Rx Spironolactone [Aldactone] 12.5 mg PO QDAY #30 tablet 07/05/19 07/13/19 Unknown Rx carvediloL [Coreg] 6.25 mg PO BID #60 tablet 07/05/19 07/13/19 Unknown Rx lisinopriL [Zestril TAB] 20 mg PO QDAY #30 tablet 07/05/19 07/13/19 Unknown Rx Active Medications: Generic Name Dose Route Start Last Admin Trade Name Freq PRN Reason Stop Dose Admin Acetaminophen 650 mg 07/20/19 16:56 07/22/19 01:58 Tylenol FEEDTUBE 650 mg Q6H PRN Administration Fever >101 Albuterol 2.5 mg 07/14/19 04:54 07/16/19 13:42 Proventil IH 2.5 mg Q4HRT PRN Administration Shortness Of Breath Amlodipine Besylate 10 mg 07/23/19 11:00 07/26/19 09:33 Amlodipine PO 10 mg QDAY TERRELL Administration Lipase/Protease/Amylase 1 each 07/18/19 13:20 Kwan Moeller 10,500 Unit FEEDTUBE PRN PRN For Clogged Feeding Tube Clonidine HCl 0.1 mg 07/23/19 11:00 07/26/19 09:34 Catapres PO 0.1 mg Q12HR TERRELL Administration Epoetin Barney 10,000 unit 07/14/19 10:13 07/18/19 22:04 Procrit IV 10,000 unit CHEMA PRN Administration DIALYSIS Fentanyl 25 mcg 07/25/19 10:51 Sublimaze IV Q2HR PRN Pain, Moderate (4-6) Haloperidol Lactate 5 mg 07/12/19 21:35 07/24/19 12:00 Haldol IV 5 mg Q1H PRN Administration Unrespon. to mult. doses BZD's Hydralazine HCl 10 mg 07/23/19 10:46 07/23/19 10:59 Apresoline IV 10 mg Q4HR PRN Administration BP >160/100 Sodium Chloride 100 mls @ 999 mls/hr 07/16/19 12:11 Nacl 0.9% IV CHEMA PRN Hypotension Vasopressin 20 unit/ Sodium 101 mls @ 9.09 mls/hr 07/17/19 15:00 Chloride IV TITR TERRELL Protocol 0.03 UNITS/MIN Lansoprazole 30 mg 07/18/19 11:00 07/26/19 09:33 Prevacid Solutab FEEDTUBE 30 mg QDAY TERRELL Administration Lorazepam 1 mg 07/25/19 08:34 07/26/19 09:34 Ativan IV 1 mg Q4H PRN Administration Agitation Scopolamine 1 each 07/23/19 11:00 07/23/19 11:02 Transderm-Scop TD 1 each Q3D TERRELL Administration Simple Syrup 15 ml 07/18/19 13:20 Simple Syrup FEEDTUBE PRN PRN Hypoglycemia Simple Syrup 30 ml 07/18/19 13:20 Simple Syrup FEEDTUBE PRN PRN Hypoglycemia Sodium Bicarbonate 325 mg 07/18/19 13:20 Sodium Bicarbonate FEEDTUBE PRN PRN For Clogged Feeding Tube Thiamine HCl 100 mg 07/22/19 10:00 07/26/19 09:33 Vitamin B-1 PO 100 mg QDAY TERRELL Administration
[2019-07-26] MEDS ORDERED: MAGNESIUM SULFATE 4 GM/100 ML BAG IV ONE (11:00)
--- NOTE | 2019-07-26 11:40 | Progress Note ---
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 No new cardiac recommendations Subjective Date of service: 07/26/19 Principal diagnosis: post anoxic brain injury Interval history: Patient continues to be intubated No cardiac events overnight Objective Vital Signs Temp Pulse Pulse Resp BP Pulse Ox 07/26/19 09:34 103 H 156/81 07/26/19 09:33 90 156/81 07/26/19 08:21 112 H 27 H 178/94 100 07/26/19 08:00 99.1 F 99 H 99 H 19 160/84 96 07/26/19 07:00 105 H 15 166/91 97 07/26/19 06:00 106 H 19 164/96 96 07/26/19 05:00 96 H 16 157/81 95 07/26/19 04:08 88 154/82 97 07/26/19 04:00 98.4 F 95 H 101 H 15 154/82 95 07/26/19 03:00 95 H 15 147/83 95 07/26/19 02:00 93 H 20 144/75 95 07/26/19 01:00 82 19 141/73 95 07/26/19 00:00 98.2 F 93 H 90 24 143/75 95 07/25/19 23:07 85 16 145/78 97 07/25/19 23:00 93 H 16 145/78 96 07/25/19 22:37 103 H 144/72 07/25/19 22:17 90 134/66 97 07/25/19 22:00 86 18 134/66 95 07/25/19 21:00 93 H 20 138/67 95 07/25/19 20:00 99.3 F 90 87 19 131/68 96 07/25/19 19:00 87 20 128/64 97 07/25/19 18:00 87 17 133/62 95 07/25/19 17:01 124 H 27 H 143/85 96 07/25/19 16:28 107 H 133/70 98 07/25/19 16:00 100.0 F H 96 H 21 133/70 95 07/25/19 15:00 92 H 17 128/70 96 07/25/19 14:43 105 H 155/87 96 07/25/19 14:00 112 H 22 156/85 97 07/25/19 13:00 104 H 20 141/75 95 07/25/19 12:00 99.2 F 97 H 19 114/60 96 - Physical Examination General: Other (unresponsive on the vent) HEENT: Positive: Normocephaly Neck: Positive: trachea midline. Negative: JVD/HJR Cardiac: Positive: Reg Rate and Rhythm Lungs: Positive: Ventilated Respirations Neuro: Positive: Grossly Intact, No Lateralizing Findings Abdomen: Positive: Unremarkable, Active Bowel Sounds Skin: Positive: Clear Extremities: Absent: edema - Labs and Meds Comprehensive Metabolic Panel 07/26/19 Range/Units 04:47 Sodium 147 H (137-145) mmol/L Potassium 3.9 (3.6-5.0) mmol/L Chloride 111.5 H (98-107) mmol/L Carbon Dioxide 23 (22-30) mmol/L BUN 57 H (9-20) mg/dL Creatinine 1.3 (0.8-1.5) mg/dL Glucose 121 H (75-100) mg/dL Calcium 8.9 (8.4-10.2) mg/dL
[2019-07-26] MEDS: SCOPOLAMINE TRANSDERMAL PATCH 72 HR TD SCH (12:34)
--- NOTE | 2019-07-26 15:06 | Progress Note ---
Assessment and Plan 48 y/o male with inhouse cardiac arrest x2, history of transient atrial flutter, cardiomyopathy ejection fraction 15 to 20%. 1. PRN ativan for sedation to prevent patient from self extubation. 2. Continue PSV daily and will now leave on as tolerated. No need to rest on vent unless absolutely necessary. 3. Monitor fever curve, chest x-ray no significant change. 4. Await neurology input on MRI 5. Overall prognosis is guarded to poor. 6. Family agreeing for trach and PEG probably this coming week CCT 31 minutes. Subjective Date of service: 07/26/19 Principal diagnosis: post anoxic brain injury Interval history: No change remains unresponsive on ventilator Objective Vital Signs - 12hr 07/26/19 07/26/19 07/26/19 04:00 04:08 05:00 Temperature 98.4 F Pulse Rate 95 H 88 96 H Pulse Rate [ 101 H From Monitor] Respiratory 15 16 Rate Blood Pressure 154/82 154/82 157/81 O2 Sat by Pulse 95 97 95 Oximetry 07/26/19 07/26/19 07/26/19 06:00 07:00 08:00 Temperature 99.1 F Pulse Rate 106 H 105 H 99 H Pulse Rate [ 99 H From Monitor] Respiratory 19 15 19 Rate Blood Pressure 164/96 166/91 160/84 O2 Sat by Pulse 96 97 96 Oximetry 07/26/19 07/26/19 07/26/19 08:21 09:00 09:33 Temperature Pulse Rate 112 H 104 H 90 Pulse Rate [ From Monitor] Respiratory 27 H 28 H Rate Blood Pressure 178/94 163/85 156/81 O2 Sat by Pulse 100 99 Oximetry 07/26/19 07/26/19 07/26/19 09:34 10:00 11:00 Temperature Pulse Rate 103 H 110 H 99 H Pulse Rate [ From Monitor] Respiratory 27 H 27 H Rate Blood Pressure 156/81 177/87 154/84 O2 Sat by Pulse 98 98 Oximetry 07/26/19 07/26/19 07/26/19 12:00 12:35 13:00 Temperature 100.4 F H Pulse Rate 107 H 105 H 108 H Pulse Rate [ 100 H From Monitor] Respiratory 26 H 26 H 29 H Rate Blood Pressure 151/85 147/89 153/83 O2 Sat by Pulse 97 98 97 Oximetry 07/26/19 14:00 Temperature Pulse Rate 94 H Pulse Rate [ From Monitor] Respiratory 20 Rate Blood Pressure 139/76 O2 Sat by Pulse 98 Oximetry Constitutional: no acute distress, comatose Eyes: non-icteric ENT: other (orally intubated not on sedation) Neck: supple Effort: normal Ascultation: Bilateral: clear Gastrointestinal: normoactive bowel sounds Integumentary: normal CBC and BMP: 07/25/19 04:05 07/26/19 04:47 ABG, PT/INR, D-dimer: ABG ABG pH 7.457 pH Units (7.350-7.450) H 07/25/19 05:27 ABG pCO2 39.4 mm Hg 07/25/19 05:27 ABG pO2 75.5 mm Hg (80.0-90.0) L 07/25/19 05:27 ABG O2 Saturation 97.1 % (95.0-99.0) 07/25/19 05:27 PT/INR, D-dimer PT 19.8 Sec. (12.2-14.9) H 07/12/19 15:08 INR 1.65 (0.87-1.13) H 07/12/19 15:08 Abnormal lab findings: Abnormal Labs 07/12/19 07/12/19 07/12/19 14:46 15:08 15:08 WBC 14.7 H RBC 2.97 L Hgb 9.7 L Hct 29.0 L MCV 98 H MCH 33 H RDW 19.8 H Plt Count 124 L Seg Neuts % (Manual) 91.0 H Lymphocytes % (Manual) 2.0 L Monocytes % (Manual) Nucleated RBC % 1.0 H Seg Neutrophils # Man 13.4 H Lymphocytes # (Manual) 0.3 L Monocytes # (Manual) PT 19.8 H INR 1.65 H APTT 47.8 H ABG pH ABG pO2 ABG HCO3 ABG O2 Saturation ABG Base Excess ABG Hemoglobin Oxyhemoglobin Sodium Potassium Chloride Carbon Dioxide BUN Creatinine Glucose POC Glucose 110 H Calcium Phosphorus Magnesium Iron TIBC Ferritin Total Bilirubin Direct Bilirubin AST Alkaline Phosphatase Lactate Dehydrogenase Troponin T NT-Pro-B Natriuret Pep Total Protein Albumin LDL Cholesterol Direct Vitamin B12 Folate Urine WBC (Auto) Urine Creatinine Urine Total Protein Fluid Glucose Fluid Total Protein 07/12/19 07/12/19 07/12/19 15:08 15:08 15:08 WBC RBC Hgb Hct MCV MCH RDW Plt Count Seg Neuts % (Manual) Lymphocytes % (Manual) Monocytes % (Manual) Nucleated RBC % Seg Neutrophils # Man Lymphocytes # (Manual) Monocytes # (Manual) PT INR APTT ABG pH ABG pO2 ABG HCO3 ABG O2 Saturation ABG Base Excess ABG Hemoglobin Oxyhemoglobin Sodium 125 L Potassium 5.5 H Chloride 84.9 L Carbon Dioxide 13 L BUN 70 H Creatinine 8.8 H Glucose POC Glucose Calcium 8.0 L Phosphorus Magnesium 1.30 L Iron TIBC Ferritin Total Bilirubin 1.30 H Direct Bilirubin 0.9 H AST 53 H Alkaline Phosphatase 208 H Lactate Dehydrogenase Troponin T 0.192 H* NT-Pro-B Natriuret Pep > 30514 H Total Protein Albumin 3.3 L LDL Cholesterol Direct 40 L Vitamin B12 Folate Urine WBC (Auto) Urine Creatinine Urine Total Protein Fluid Glucose Fluid Total Protein 07/12/19 07/13/19 07/13/19 17:04 01:32 01:32 WBC RBC Hgb Hct MCV MCH RDW Plt Count Seg Neuts % (Manual) Lymphocytes % (Manual) Monocytes % (Manual) Nucleated RBC % Seg Neutrophils # Man Lymphocytes # (Manual) Monocytes # (Manual) PT INR APTT ABG pH ABG pO2 ABG HCO3 ABG O2 Saturation ABG Base Excess ABG Hemoglobin Oxyhemoglobin Sodium 133 L D Potassium 5.3 H Chloride 90.8 L Carbon Dioxide 20 L D BUN 48 H Creatinine 6.2 H Glucose 105 H POC Glucose Calcium 8.2 L Phosphorus 4.90 H Magnesium 1.50 L Iron TIBC Ferritin Total Bilirubin Direct Bilirubin AST Alkaline Phosphatase Lactate Dehydrogenase Troponin T 0.188 H* NT-Pro-B Natriuret Pep Total Protein Albumin LDL Cholesterol Direct Vitamin B12 Folate Urine WBC (Auto) Urine Creatinine Urine Total Protein Fluid Glucose Fluid Total Protein 07/13/19 07/13/19 07/13/19 04:28 04:28 16:16 WBC 15.9 H RBC 3.10 L Hgb 10.2 L Hct 30.6 L MCV 99 H MCH 33 H RDW 19.4 H Plt Count 135 L Seg Neuts % (Manual) Lymphocytes % (Manual) 4.0 L Monocytes % (Manual) Nucleated RBC % Seg Neutrophils # Man 9.9 H Lymphocytes # (Manual) 0.6 L Monocytes # (Manual) PT INR APTT ABG pH ABG pO2 ABG HCO3 ABG O2 Saturation ABG Base Excess ABG Hemoglobin Oxyhemoglobin Sodium 132 L 134 L Potassium 5.1 H Chloride 90.3 L 92.2 L Carbon Dioxide 17 L 20 L BUN 47 H 55 H Creatinine 6.0 H 6.5 H Glucose 124 H POC Glucose Calcium 8.2 L 7.9 L Phosphorus Magnesium Iron TIBC Ferritin Total Bilirubin Direct Bilirubin AST Alkaline Phosphatase Lactate Dehydrogenase Troponin T NT-Pro-B Natriuret Pep Total Protein Albumin LDL Cholesterol Direct Vitamin B12 Folate Urine WBC (Auto) Urine Creatinine Urine Total Protein Fluid Glucose Fluid Total Protein 07/14/19 07/14/19 07/14/19 07:16 07:16 07:16 WBC RBC 2.65 L Hgb 8.6 L Hct 25.4 L MCV 96 H MCH 33 H RDW 19.7 H Plt Count 114 L Seg Neuts % (Manual) 89.0 H Lymphocytes % (Manual) 4.0 L Monocytes % (Manual) Nucleated RBC % Seg Neutrophils # Man Lymphocytes # (Manual) 0.3 L Monocytes # (Manual) PT INR APTT ABG pH ABG pO2 ABG HCO3 ABG O2 Saturation ABG Base Excess ABG Hemoglobin Oxyhemoglobin Sodium 133 L Potassium Chloride 93.0 L Carbon Dioxide 18 L BUN 61 H Creatinine 7.3 H Glucose 113 H POC Glucose Calcium 7.7 L Phosphorus Magnesium Iron TIBC Ferritin Total Bilirubin Direct Bilirubin AST Alkaline Phosphatase Lactate Dehydrogenase 210 H Troponin T NT-Pro-B Natriuret Pep Total Protein Albumin LDL Cholesterol Direct Vitamin B12 Folate Urine WBC (Auto) Urine Creatinine Urine Total Protein Fluid Glucose Fluid Total Protein 07/14/19 07/14/19 07/14/19 10:45 16:40 17:28 WBC RBC Hgb Hct MCV MCH RDW Plt Count Seg Neuts % (Manual) Lymphocytes % (Manual) Monocytes % (Manual) Nucleated RBC % Seg Neutrophils # Man Lymphocytes # (Manual) Monocytes # (Manual) PT INR APTT ABG pH ABG pO2 ABG HCO3 ABG O2 Saturation ABG Base Excess ABG Hemoglobin Oxyhemoglobin Sodium Potassium Chloride Carbon Dioxide BUN Creatinine Glucose POC Glucose Calcium Phosphorus Magnesium Iron TIBC Ferritin Total Bilirubin Direct Bilirubin AST Alkaline Phosphatase Lactate Dehydrogenase Troponin T NT-Pro-B Natriuret Pep Total Protein Albumin LDL Cholesterol Direct Vitamin B12 Folate Urine WBC (Auto) Urine Creatinine 104.2 H 106.2 H Urine Total Protein 173 H Fluid Glucose 93 H Fluid Total Protein 4.7 L 01/27/20 01/27/20 01/28/20 17:28 20:43 06:30 WBC RBC 3.06 L Hgb 9.9 L Hct 29.7 L MCV 97 H MCH 33 H RDW 19.5 H Plt Count 101 L Seg Neuts % (Manual) Lymphocytes % (Manual) Monocytes % (Manual) Nucleated RBC % Seg Neutrophils # Man Lymphocytes # (Manual) Monocytes # (Manual) PT INR APTT ABG pH ABG pO2 ABG HCO3 ABG O2 Saturation ABG Base Excess ABG Hemoglobin Oxyhemoglobin Sodium Potassium Chloride Carbon Dioxide BUN Creatinine Glucose POC Glucose 120 H Calcium Phosphorus Magnesium Iron TIBC Ferritin Total Bilirubin Direct Bilirubin AST Alkaline Phosphatase Lactate Dehydrogenase Troponin T NT-Pro-B Natriuret Pep Total Protein Albumin LDL Cholesterol Direct Vitamin B12 Folate Urine WBC (Auto) 31.0 H Urine Creatinine Urine Total Protein Fluid Glucose Fluid Total Protein 07/15/19 07/15/19 07/15/19 06:30 06:30 06:30 WBC RBC Hgb Hct MCV MCH RDW Plt Count Seg Neuts % (Manual) Lymphocytes % (Manual) Monocytes % (Manual) Nucleated RBC % Seg Neutrophils # Man Lymphocytes # (Manual) Monocytes # (Manual) PT INR APTT ABG pH ABG pO2 ABG HCO3 ABG O2 Saturation ABG Base Excess ABG Hemoglobin Oxyhemoglobin Sodium Potassium Chloride 95.2 L Carbon Dioxide BUN 42 H Creatinine 4.9 H Glucose POC Glucose Calcium Phosphorus Magnesium Iron 15 L TIBC 186 L Ferritin 428.2 H Total Bilirubin Direct Bilirubin AST 50 H Alkaline Phosphatase 191 H Lactate Dehydrogenase Troponin T NT-Pro-B Natriuret Pep Total Protein Albumin 3.1 L LDL Cholesterol Direct Vitamin B12 Folate Urine WBC (Auto) Urine Creatinine Urine Total Protein Fluid Glucose Fluid Total Protein 07/15/19 07/16/19 07/16/19 12:42 06:19 21:34 WBC RBC Hgb Hct MCV MCH RDW Plt Count Seg Neuts % (Manual) Lymphocytes % (Manual) Monocytes % (Manual) Nucleated RBC % Seg Neutrophils # Man Lymphocytes # (Manual) Monocytes # (Manual) PT INR APTT ABG pH ABG pO2 ABG HCO3 ABG O2 Saturation ABG Base Excess ABG Hemoglobin Oxyhemoglobin Sodium 134 L 134 L Potassium Chloride 92.9 L 93.4 L Carbon Dioxide 20 L BUN 55 H 40 H Creatinine 5.6 H 4.4 H Glucose POC Glucose 140 H Calcium Phosphorus Magnesium Iron TIBC Ferritin Total Bilirubin Direct Bilirubin AST Alkaline Phosphatase Lactate Dehydrogenase Troponin T NT-Pro-B Natriuret Pep Total Protein Albumin LDL Cholesterol Direct Vitamin B12 Folate Urine WBC (Auto) Urine Creatinine Urine Total Protein Fluid Glucose Fluid Total Protein 07/17/19 07/17/19 07/17/19 05:27 12:10 12:52 WBC RBC Hgb Hct MCV MCH RDW Plt Count Seg Neuts % (Manual) Lymphocytes % (Manual) Monocytes % (Manual) Nucleated RBC % Seg Neutrophils # Man Lymphocytes # (Manual) Monocytes # (Manual) PT INR APTT ABG pH ABG pO2 ABG HCO3 ABG O2 Saturation ABG Base Excess ABG Hemoglobin Oxyhemoglobin Sodium 136 L Potassium Chloride 93.6 L Carbon Dioxide BUN 43 H Creatinine 4.8 H Glucose POC Glucose 122 H 122 H Calcium Phosphorus Magnesium Iron TIBC Ferritin Total Bilirubin Direct Bilirubin AST Alkaline Phosphatase Lactate Dehydrogenase Troponin T NT-Pro-B Natriuret Pep Total Protein Albumin LDL Cholesterol Direct Vitamin B12 Folate Urine WBC (Auto) Urine Creatinine Urine Total Protein Fluid Glucose Fluid Total Protein 07/17/19 07/18/19 07/18/19 13:50 04:20 05:40 WBC RBC Hgb Hct MCV MCH RDW Plt Count Seg Neuts % (Manual) Lymphocytes % (Manual) Monocytes % (Manual) Nucleated RBC % Seg Neutrophils # Man Lymphocytes # (Manual) Monocytes # (Manual) PT INR APTT ABG pH 7.262 L ABG pO2 195.5 H 238.9 H ABG HCO3 ABG O2 Saturation 99.1 H 99.4 H ABG Base Excess -2.9 L ABG Hemoglobin 8.6 L 10.9 L Oxyhemoglobin Sodium Potassium Chloride 94.5 L Carbon Dioxide BUN 61 H Creatinine 5.6 H Glucose 111 H POC Glucose Calcium Phosphorus 4.70 H Magnesium Iron TIBC Ferritin Total Bilirubin Direct Bilirubin AST Alkaline Phosphatase Lactate Dehydrogenase 294 H Troponin T NT-Pro-B Natriuret Pep Total Protein Albumin LDL Cholesterol Direct Vitamin B12 Folate Urine WBC (Auto) Urine Creatinine Urine Total Protein Fluid Glucose Fluid Total Protein 07/18/19 07/18/19 07/18/19 05:40 05:40 10:30 WBC 22.7 H RBC 2.64 L Hgb 8.2 L Hct 24.9 L MCV 95 H MCH RDW 19.7 H Plt Count 94 L Seg Neuts % (Manual) Lymphocytes % (Manual) Monocytes % (Manual) Nucleated RBC % Seg Neutrophils # Man Lymphocytes # (Manual) Monocytes # (Manual) PT INR APTT ABG pH 7.457 H ABG pO2 ABG HCO3 26.3 H ABG O2 Saturation ABG Base Excess ABG Hemoglobin 7.8 L Oxyhemoglobin 94.6 L Sodium Potassium Chloride Carbon Dioxide BUN Creatinine Glucose POC Glucose Calcium Phosphorus Magnesium Iron TIBC Ferritin Total Bilirubin Direct Bilirubin 0.7 H AST 94 H Alkaline Phosphatase 159 H Lactate Dehydrogenase Troponin T NT-Pro-B Natriuret Pep Total Protein 5.6 L D Albumin 2.5 L LDL Cholesterol Direct Vitamin B12 Folate Urine WBC (Auto) Urine Creatinine Urine Total Protein Fluid Glucose Fluid Total Protein 07/18/19 07/19/19 07/19/19 Unknown 05:15 05:15 WBC RBC Hgb Hct MCV MCH RDW Plt Count Seg Neuts % (Manual) Lymphocytes % (Manual) Monocytes % (Manual) Nucleated RBC % Seg Neutrophils # Man Lymphocytes # (Manual) Monocytes # (Manual) PT INR APTT ABG pH ABG pO2 ABG HCO3 ABG O2 Saturation ABG Base Excess ABG Hemoglobin 11.6 L Oxyhemoglobin 94.3 L Sodium 133 L Potassium Chloride 94.9 L Carbon Dioxide BUN 43 H Creatinine 4.0 H Glucose 118 H POC Glucose Calcium Phosphorus Magnesium 0.20 L* Iron TIBC Ferritin Total Bilirubin Direct Bilirubin AST Alkaline Phosphatase Lactate Dehydrogenase Troponin T NT-Pro-B Natriuret Pep Total Protein Albumin LDL Cholesterol Direct Vitamin B12 Folate Urine WBC (Auto) Urine Creatinine Urine Total Protein Fluid Glucose Fluid Total Protein 07/19/19 07/19/19 07/20/19 05:15 06:00 06:15 WBC 14.6 H RBC 2.57 L Hgb 8.2 L Hct 24.3 L MCV 95 H MCH RDW 19.5 H Plt Count 101 L Seg Neuts % (Manual) Lymphocytes % (Manual) Monocytes % (Manual) Nucleated RBC % Seg Neutrophils # Man Lymphocytes # (Manual) Monocytes # (Manual) PT INR APTT ABG pH ABG pO2 91.2 H ABG HCO3 27.5 H ABG O2 Saturation ABG Base Excess ABG Hemoglobin 8.3 L Oxyhemoglobin Sodium Potassium Chloride Carbon Dioxide BUN 61 H Creatinine 4.6 H Glucose 117 H POC Glucose Calcium Phosphorus Magnesium Iron TIBC Ferritin Total Bilirubin Direct Bilirubin AST Alkaline Phosphatase Lactate Dehydrogenase Troponin T NT-Pro-B Natriuret Pep Total Protein Albumin LDL Cholesterol Direct Vitamin B12 Folate Urine WBC (Auto) Urine Creatinine Urine Total Protein Fluid Glucose Fluid Total Protein 07/21/19 07/21/19 07/21/19 05:30 06:15 06:15 WBC 11.8 H RBC 2.45 L Hgb 7.9 L Hct 23.5 L MCV 96 H MCH RDW 19.4 H Plt Count Seg Neuts % (Manual) Lymphocytes % (Manual) Monocytes % (Manual) Nucleated RBC % Seg Neutrophils # Man Lymphocytes # (Manual) Monocytes # (Manual) PT INR APTT ABG pH ABG pO2 104.5 H ABG HCO3 27.9 H ABG O2 Saturation ABG Base Excess 3.3 H ABG Hemoglobin 8.2 L Oxyhemoglobin Sodium Potassium 3.3 L Chloride Carbon Dioxide BUN 74 H Creatinine 4.3 H Glucose 127 H POC Glucose Calcium Phosphorus Magnesium Iron TIBC Ferritin Total Bilirubin Direct Bilirubin AST Alkaline Phosphatase Lactate Dehydrogenase Troponin T NT-Pro-B Natriuret Pep Total Protein Albumin LDL Cholesterol Direct Vitamin B12 Folate Urine WBC (Auto) Urine Creatinine Urine Total Protein Fluid Glucose Fluid Total Protein 07/21/19 07/21/19 07/21/19 08:00 08:00 17:51 WBC RBC Hgb Hct MCV MCH RDW Plt Count Seg Neuts % (Manual) Lymphocytes % (Manual) Monocytes % (Manual) Nucleated RBC % Seg Neutrophils # Man Lymphocytes # (Manual) Monocytes # (Manual) PT INR APTT ABG pH ABG pO2 ABG HCO3 ABG O2 Saturation ABG Base Excess ABG Hemoglobin Oxyhemoglobin Sodium Potassium 3.2 L Chloride Carbon Dioxide BUN Creatinine Glucose POC Glucose Calcium Phosphorus Magnesium Iron TIBC Ferritin Total Bilirubin Direct Bilirubin AST Alkaline Phosphatase Lactate Dehydrogenase Troponin T NT-Pro-B Natriuret Pep Total Protein Albumin LDL Cholesterol Direct Vitamin B12 960.4 H Folate 6.18 L Urine WBC (Auto) Urine Creatinine Urine Total Protein Fluid Glucose Fluid Total Protein 07/22/19 07/22/19 07/22/19 03:40 06:00 21:45 WBC 12.6 H RBC 2.54 L Hgb 7.8 L Hct 24.2 L MCV 95 H MCH RDW 19.7 H Plt Count Seg Neuts % (Manual) Lymphocytes % (Manual) Monocytes % (Manual) Nucleated RBC % Seg Neutrophils # Man Lymphocytes # (Manual) Monocytes # (Manual) PT INR APTT ABG pH ABG pO2 99.4 H ABG HCO3 27.3 H ABG O2 Saturation ABG Base Excess ABG Hemoglobin 9.2 L Oxyhemoglobin Sodium Potassium 3.1 L Chloride Carbon Dioxide BUN 75 H Creatinine 2.9 H Glucose 123 H POC Glucose Calcium Phosphorus Magnesium Iron TIBC Ferritin Total Bilirubin Direct Bilirubin AST Alkaline Phosphatase Lactate Dehydrogenase Troponin T NT-Pro-B Natriuret Pep Total Protein Albumin LDL Cholesterol Direct Vitamin B12 Folate Urine WBC (Auto) Urine Creatinine Urine Total Protein Fluid Glucose Fluid Total Protein 07/23/19 07/24/19 07/24/19 05:30 04:12 07:03 WBC RBC Hgb Hct MCV MCH RDW Plt Count Seg Neuts % (Manual) Lymphocytes % (Manual) Monocytes % (Manual) Nucleated RBC % Seg Neutrophils # Man Lymphocytes # (Manual) Monocytes # (Manual) PT INR APTT ABG pH ABG pO2 123.1 H ABG HCO3 27.1 H ABG O2 Saturation ABG Base Excess ABG Hemoglobin 9.3 L Oxyhemoglobin Sodium Potassium 3.1 L 3.4 L Chloride 107.5 H Carbon Dioxide BUN 80 H 70 H Creatinine 2.6 H 1.8 H Glucose 112 H 112 H POC Glucose Calcium Phosphorus Magnesium Iron TIBC Ferritin Total Bilirubin Direct Bilirubin AST Alkaline Phosphatase Lactate Dehydrogenase Troponin T NT-Pro-B Natriuret Pep Total Protein Albumin LDL Cholesterol Direct Vitamin B12 Folate Urine WBC (Auto) Urine Creatinine Urine Total Protein Fluid Glucose Fluid Total Protein 07/24/19 07/25/19 07/25/19 07:03 04:05 04:05 WBC 11.4 H RBC 2.39 L Hgb 7.5 L Hct 23.0 L MCV 96 H MCH RDW 19.4 H Plt Count Seg Neuts % (Manual) 76.0 H Lymphocytes % (Manual) 9.0 L Monocytes % (Manual) 11.0 H Nucleated RBC % Seg Neutrophils # Man 8.7 H Lymphocytes # (Manual) 1.0 L Monocytes # (Manual) 1.3 H PT INR APTT ABG pH ABG pO2 ABG HCO3 ABG O2 Saturation ABG Base Excess ABG Hemoglobin Oxyhemoglobin Sodium 147 H Potassium Chloride 110.1 H Carbon Dioxide BUN 62 H Creatinine Glucose 115 H POC Glucose Calcium Phosphorus Magnesium 1.50 L Iron TIBC Ferritin Total Bilirubin Direct Bilirubin AST Alkaline Phosphatase Lactate Dehydrogenase Troponin T NT-Pro-B Natriuret Pep Total Protein Albumin LDL Cholesterol Direct Vitamin B12 Folate Urine WBC (Auto) Urine Creatinine Urine Total Protein Fluid Glucose Fluid Total Protein 07/25/19 07/26/19 07/26/19 05:27 04:47 04:47 WBC RBC Hgb Hct MCV MCH RDW Plt Count Seg Neuts % (Manual) Lymphocytes % (Manual) Monocytes % (Manual) Nucleated RBC % Seg Neutrophils # Man Lymphocytes # (Manual) Monocytes # (Manual) PT INR APTT ABG pH 7.457 H ABG pO2 75.5 L ABG HCO3 27.2 H ABG O2 Saturation ABG Base Excess 3.1 H ABG Hemoglobin 7.0 L Oxyhemoglobin 94.4 L Sodium 147 H Potassium Chloride 111.5 H Carbon Dioxide BUN 57 H Creatinine Glucose 121 H POC Glucose Calcium Phosphorus Magnesium 1.50 L Iron TIBC Ferritin Total Bilirubin Direct Bilirubin AST Alkaline Phosphatase Lactate Dehydrogenase Troponin T NT-Pro-B Natriuret Pep Total Protein Albumin LDL Cholesterol Direct Vitamin B12 Folate Urine WBC (Auto) Urine Creatinine Urine Total Protein Fluid Glucose Fluid Total Protein Chest x-ray: image reviewed (Minimal bilateral pleural effusions no acute finding)
[2019-07-26] MEDS: VALSARTAN 40 MG TAB PO SCH ×2 (18:00→22:53)
[2019-07-27] MEDS: hydrALAZINE 20 MG/1 ML INJ IV PRN ×2 (02:24→17:30)
[2019-07-27] MEDS: DEXTROSE 5% IN WATER 1,000 ML IV SCH (02:25)
[2019-07-27 06:08] LABS: Albumin 2.2 g/dL (3.8-4.8)
[2019-07-27 06:27] LABS: BUN/Creatinine Ratio 36; Blood Urea Nitrogen 43 mg/dL (9-20); Calcium 9.2 mg/dL (8.4-10.2); Hemolysis Index 20
--- NOTE | 2019-07-27 09:11 | Progress Note ---
Assessment and Plan Acute Kidney Injury possibly prerenal/ATN, cardiorenal syndrome, diuretics, ACEI, AIN from NSAIDs, ? underlying CKD process, no obstruction Hypernatremia: High Anion Gap Metabolic Acidosis Acute respiratory failure LLL PNA Anemia Hypomagnesemia S/p Cardiac Arrest Acute on chronic systolic CHF Questionable Anoxic Brain Injury Plan: - Cr trending down. - Dced Vascath Sunday. - Na 147 today. on D5W. Also on free water 250 q6 via TFs. - Renal US mentioned moderate ascites, but no hydronephrosis - intubated on Vent. - Neuro evaluated pt, recommend MRI Brain, f/u recs - S/p US guided paracentesis with removal of 3200 ml on 07/15/19 - Renally dose medications Corky Newby MD [phone] Subjective Date of service: 07/27/19 Principal diagnosis: post anoxic brain injury Interval history: Making urine. Objective - Exam Narrative Exam: General appearance: well-developed, intubated EENT: ATNC, PERRL, mucous membranes dry Neck: no JVD, no carotid bruit Respiratory: Present: Clear to Ascultation Cardiology: regular, S1S2 Gastrointestinal: normoactive bowel sounds, no tenderness, no distended Integumentary: no rash, warm and dry Neurologic: other (intubated) Musculoskeletal: other (trace pitting edema) Psychiatric: other (intubated) - Vital Signs Vital signs: Vital Signs - 12hr 07/26/19 07/26/19 07/26/19 21:24 22:01 22:29 Temperature Pulse Rate 106 H 96 H 101 H Pulse Rate [ From Monitor] Respiratory 22 15 Rate Blood Pressure 147/83 144/74 159/86 O2 Sat by Pulse 98 96 98 Oximetry 07/26/19 07/26/19 07/27/19 22:53 23:00 00:00 Temperature 99.4 F Pulse Rate 96 H 99 H 100 H Pulse Rate [ 97 H From Monitor] Respiratory 18 12 Rate Blood Pressure 152/81 152/80 162/81 O2 Sat by Pulse 98 96 Oximetry 07/27/19 07/27/19 07/27/19 01:00 01:18 02:00 Temperature Pulse Rate 99 H 101 H 101 H Pulse Rate [ From Monitor] Respiratory 25 H 17 Rate Blood Pressure 146/82 146/82 163/104 O2 Sat by Pulse 96 98 96 Oximetry 07/27/19 07/27/19 07/27/19 02:24 03:01 04:00 Temperature 98.1 F Pulse Rate 106 H 114 H 100 H Pulse Rate [ 100 H From Monitor] Respiratory 19 Rate Blood Pressure 163/104 128/97 O2 Sat by Pulse 96 Oximetry 07/27/19 07/27/19 07/27/19 04:01 05:01 06:00 Temperature Pulse Rate 108 H 104 H 110 H Pulse Rate [ From Monitor] Respiratory 18 23 24 Rate Blood Pressure 130/93 131/91 140/95 O2 Sat by Pulse 96 97 99 Oximetry 07/27/19 07/27/19 06:39 07:42 Temperature Pulse Rate 104 H 108 H Pulse Rate [ From Monitor] Respiratory Rate Blood Pressure 154/91 149/102 O2 Sat by Pulse 98 98 Oximetry - Lab 07/25/19 04:05 07/27/19 05:55 Most recent lab results ABG pH 7.457 pH Units (7.350-7.450) H 07/25/19 05:27 ABG pCO2 39.4 mm Hg 07/25/19 05:27 ABG pO2 75.5 mm Hg (80.0-90.0) L 07/25/19 05:27 ABG HCO3 27.2 mmol/L (20.0-26.0) H 07/25/19 05:27 ABG O2 Saturation 97.1 % (95.0-99.0) 07/25/19 05:27 Calcium 9.2 mg/dL (8.4-10.2) 07/27/19 05:55 Phosphorus 2.70 mg/dL (2.5-4.5) 07/24/19 07:03 Magnesium 1.80 mg/dL (1.7-2.3) 07/27/19 05:55 Urine Creatinine 106.2 mg/dL (0.1-20.0) H 07/14/19 17:28 Urine Sodium 67 mmol/L 07/14/19 17:28 Urine Total Protein 173 mg/dL (5-11.8) H 07/14/19 16:40 Medications & Allergies - Medications Allergies/Adverse Reactions: Allergies No Known Allergies Allergy (Verified 07/01/19 11:20) Home Medications: Home Medications Medication Instructions Recorded Confirmed Last Taken Type Magnesium Oxide 400 mg PO BIDAC #60 tablet 12/07/16 07/13/19 1 Day Ago Rx ~09/16/17 Thiamine [Vitamin B-1] 100 mg PO QDAY #30 tablet 12/07/16 07/13/19 2 Days Ago Rx ~09/14/17 100 mg Lisinopril [Zestril] 20 mg PO DAILY #30 tablet 09/18/17 07/13/19 Unknown Rx Pantoprazole [Protonix TAB] 40 mg PO BID #60 tablet 09/18/17 07/13/19 Unknown Rx Aspirin [Aspirin BABY CHEW TAB] 81 mg PO QDAY #30 tab.chew 07/05/19 07/13/19 Unknown Rx Furosemide [Lasix TAB] 40 mg PO BID #60 tablet 07/05/19 07/13/19 Unknown Rx Nitroglycerin [Nitrostat] 0.4 mg SL .Q5MIN PRN #10 tablet 07/05/19 07/13/19 Unknown Rx Spironolactone [Aldactone] 12.5 mg PO QDAY #30 tablet 07/05/19 07/13/19 Unknown Rx carvediloL [Coreg] 6.25 mg PO BID #60 tablet 07/05/19 07/13/19 Unknown Rx lisinopriL [Zestril TAB] 20 mg PO QDAY #30 tablet 07/05/19 07/13/19 Unknown Rx Active Medications: Generic Name Dose Route Start Last Admin Trade Name Freq PRN Reason Stop Dose Admin Acetaminophen 650 mg 07/20/19 16:56 07/22/19 01:58 Tylenol FEEDTUBE 650 mg Q6H PRN Administration Fever >101 Albuterol 2.5 mg 07/14/19 04:54 07/16/19 13:42 Proventil IH 2.5 mg Q4HRT PRN Administration Shortness Of Breath Amlodipine Besylate 10 mg 07/23/19 11:00 07/26/19 09:33 Amlodipine PO 10 mg QDAY TERRELL Administration Lipase/Protease/Amylase 1 each 07/18/19 13:20 [place] 10,500 Unit FEEDTUBE PRN PRN For Clogged Feeding Tube Epoetin Bar[place] 10,000 unit 07/14/19 10:13 07/18/19 22:04 Procrit IV 10,000 unit CHEMA PRN Administration DIALYSIS Fentanyl 25 mcg 07/25/19 10:51 Sublimaze IV Q2HR PRN Pain, Moderate (4-6) Haloperidol Lactate 5 mg 07/12/19 21:35 07/24/19 12:00 Haldol IV 5 mg Q1H PRN Administration Unrespon. to mult. doses BZD's Hydralazine HCl 10 mg 07/23/19 10:46 07/27/19 02:24 Apresoline IV 10 mg Q4HR PRN Administration BP >160/100 Sodium Chloride 100 mls @ 999 mls/hr 07/16/19 12:11 Nacl 0.9% IV CHEMA PRN Hypotension Dextrose 1,000 mls @ 42 mls/hr 07/26/19 15:00 07/27/19 02:25 D5w IV 42 mls/hr DIRECT TERRELL Administration Lansoprazole 30 mg 07/18/19 11:00 07/26/19 09:33 Prevacid Solutab FEEDTUBE 30 mg QDAY TERRELL Administration Lorazepam 1 mg 07/25/19 08:34 07/26/19 12:33 Ativan IV 1 mg Q4H PRN Administration Agitation Scopolamine 1 each 07/23/19 11:00 07/26/19 12:34 Transderm-Scop TD 1 each Q3D TERRELL Administration Simple Syrup 15 ml 07/18/19 13:20 Simple Syrup FEEDTUBE PRN PRN Hypoglycemia Simple Syrup 30 ml 07/18/19 13:20 Simple Syrup FEEDTUBE PRN PRN Hypoglycemia Sodium Bicarbonate 325 mg 07/18/19 13:20 Sodium Bicarbonate FEEDTUBE PRN PRN For Clogged Feeding Tube Thiamine HCl 100 mg 07/22/19 10:00 07/26/19 09:33 Vitamin B-1 PO 100 mg QDAY TERRELL Administration Valsartan 80 mg 07/26/19 15:00 07/26/19 22:53 Diovan PO 80 mg BID TERRELL Administration
[2019-07-27] MEDS: VALSARTAN 40 MG TAB PO SCH ×2 (09:20→22:07)
[2019-07-27] MEDS: THIAMINE 100 MG TAB PO SCH (09:20)
[2019-07-27] MEDS: LANSOPRAZOLE 30 MG SOLUTAB FEEDTUBE SCH (09:20)
[2019-07-27] MEDS: amLODIPine 10 MG TAB PO SCH (09:20)
[2019-07-27] MEDS ORDERED: VALSARTAN 40 MG TAB PO SCH (10:00)
--- NOTE | 2019-07-27 11:03 | Progress Note ---
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 No new cardiac recommendations Subjective Date of service: 07/27/19 Principal diagnosis: post anoxic brain injury Interval history: Patient continues to be intubated No cardiac events overnight Objective Vital Signs Temp Pulse Pulse Resp BP Pulse Ox 07/27/19 10:38 103 H 148/94 07/27/19 10:00 103 H 19 154/82 98 07/27/19 09:35 103 H 24 154/82 97 07/27/19 09:20 101 H 149/80 07/27/19 09:00 101 H 25 H 145/83 99 07/27/19 08:00 99.8 F H 116 H 103 H 28 H 153/90 98 07/27/19 07:42 108 H 149/102 98 07/27/19 07:00 109 H 25 H 154/91 97 07/27/19 06:39 104 H 154/91 98 07/27/19 06:00 110 H 24 140/95 99 07/27/19 05:01 104 H 23 131/91 97 07/27/19 04:01 108 H 18 130/93 96 07/27/19 04:00 98.1 F 100 H 100 H 07/27/19 03:01 114 H 19 128/97 96 07/27/19 02:24 106 H 163/104 07/27/19 02:00 101 H 17 163/104 96 07/27/19 01:18 101 H 146/82 98 07/27/19 01:00 99 H 25 H 146/82 96 07/27/19 00:00 99.4 F 100 H 97 H 12 162/81 96 07/26/19 23:00 99 H 18 152/80 98 07/26/19 22:53 96 H 152/81 07/26/19 22:29 101 H 15 159/86 98 07/26/19 22:01 96 H 22 144/74 96 07/26/19 21:24 106 H 147/83 98 07/26/19 21:00 100 H 27 H 147/83 95 07/26/19 20:00 98.4 F 97 H 102 H 18 150/85 07/26/19 19:01 103 H 15 143/76 95 07/26/19 18:01 109 H 15 156/86 96 07/26/19 17:01 99 H 22 137/75 95 07/26/19 16:40 99 H 15 147/81 96 07/26/19 16:00 99.5 F 101 H 98 H 26 H 140/83 96 07/26/19 15:00 99 H 24 146/80 98 07/26/19 14:00 94 H 20 139/76 98 07/26/19 13:00 108 H 29 H 153/83 97 07/26/19 12:35 105 H 26 H 147/89 98 07/26/19 12:00 100.4 F H 107 H 100 H 26 H 151/85 97 - Physical Examination General: Other (unresponsive on the vent) HEENT: Positive: Normocephaly Neck: Positive: trachea midline. Negative: JVD/HJR Cardiac: Positive: Reg Rate and Rhythm Lungs: Positive: Ventilated Respirations Neuro: Positive: Grossly Intact, No Lateralizing Findings Abdomen: Positive: Unremarkable, Active Bowel Sounds Skin: Positive: Clear Extremities: Absent: edema - Labs and Meds Comprehensive Metabolic Panel 07/23/19 07/27/19 Range/Units 05:30 05:55 Sodium 147 H (137-145) mmol/L Potassium 3.9 (3.6-5.0) mmol/L Chloride 109.6 H (98-107) mmol/L Carbon Dioxide 25 (22-30) mmol/L BUN 43 H (9-20) mg/dL Creatinine 1.2 (0.8-1.5) mg/dL Glucose 113 H (75-100) mg/dL Calcium 9.2 (8.4-10.2) mg/dL Albumin 2.2 L (3.8-4.8) g/dL
--- NOTE | 2019-07-27 12:45 | Progress Note ---
Assessment and Plan 48 y/o male with inhouse cardiac arrest x2, history of transient atrial flutter, cardiomyopathy ejection fraction 15 to 20%. 1. PRN ativan for sedation to prevent patient from self extubation. 2. Discontinue PSV daily with the possibility of flail chest. 3. Consider CT of the chest in the future to evaluate rib injury/costochondral separation. 4. Await neurology input on MRI 5. Overall prognosis is guarded to poor. 6. Family agreeing for trach and PEG probably this coming week CCT 31 minutes. Subjective Date of service: 07/27/19 Principal diagnosis: post anoxic brain injury Interval history: No change remains unresponsive on ventilator. Paradoxical movement noted on pressure support and CPAP with patient spontaneously breathing. This changes are suggestive of flail chest possibly related to rib injury from CPR Objective Vital Signs - 12hr 07/27/19 07/27/19 07/27/19 01:00 01:18 02:00 Temperature Pulse Rate 99 H 101 H 101 H Pulse Rate [ From Monitor] Respiratory 25 H 17 Rate Blood Pressure 146/82 146/82 163/104 O2 Sat by Pulse 96 98 96 Oximetry 07/27/19 07/27/19 07/27/19 02:24 03:01 04:00 Temperature 98.1 F Pulse Rate 106 H 114 H 100 H Pulse Rate [ 100 H From Monitor] Respiratory 19 Rate Blood Pressure 163/104 128/97 O2 Sat by Pulse 96 Oximetry 07/27/19 07/27/19 07/27/19 04:01 05:01 06:00 Temperature Pulse Rate 108 H 104 H 110 H Pulse Rate [ From Monitor] Respiratory 18 23 24 Rate Blood Pressure 130/93 131/91 140/95 O2 Sat by Pulse 96 97 99 Oximetry 07/27/19 07/27/19 07/27/19 06:39 07:00 07:42 Temperature Pulse Rate 104 H 109 H 108 H Pulse Rate [ From Monitor] Respiratory 25 H Rate Blood Pressure 154/91 154/91 149/102 O2 Sat by Pulse 98 97 98 Oximetry 07/27/19 07/27/19 07/27/19 08:00 09:00 09:20 Temperature 99.8 F H Pulse Rate 116 H 101 H 101 H Pulse Rate [ 103 H From Monitor] Respiratory 28 H 25 H Rate Blood Pressure 153/90 145/83 149/80 O2 Sat by Pulse 98 99 Oximetry 07/27/19 07/27/19 07/27/19 09:35 10:00 10:38 Temperature Pulse Rate 103 H 103 H 103 H Pulse Rate [ From Monitor] Respiratory 24 19 Rate Blood Pressure 154/82 154/82 148/94 O2 Sat by Pulse 97 98 Oximetry 07/27/19 07/27/19 11:00 11:31 Temperature Pulse Rate 103 H 105 H Pulse Rate [ From Monitor] Respiratory 28 H 23 Rate Blood Pressure 148/94 102/63 O2 Sat by Pulse 96 97 Oximetry Constitutional: no acute distress, comatose Eyes: non-icteric ENT: other (orally intubated not on sedation) Neck: supple Effort: normal Ascultation: Bilateral: clear Gastrointestinal: normoactive bowel sounds Integumentary: normal CBC and BMP: 07/25/19 04:05 07/27/19 05:55 ABG, PT/INR, D-dimer: ABG ABG pH 7.457 pH Units (7.350-7.450) H 07/25/19 05:27 ABG pCO2 39.4 mm Hg 07/25/19 05:27 ABG pO2 75.5 mm Hg (80.0-90.0) L 07/25/19 05:27 ABG O2 Saturation 97.1 % (95.0-99.0) 07/25/19 05:27 PT/INR, D-dimer PT 19.8 Sec. (12.2-14.9) H 07/12/19 15:08 INR 1.65 (0.87-1.13) H 07/12/19 15:08 Abnormal lab findings: Abnormal Labs 07/12/19 07/12/19 07/12/19 14:46 15:08 15:08 WBC 14.7 H RBC 2.97 L Hgb 9.7 L Hct 29.0 L MCV 98 H MCH 33 H RDW 19.8 H Plt Count 124 L Seg Neuts % (Manual) 91.0 H Lymphocytes % (Manual) 2.0 L Monocytes % (Manual) Nucleated RBC % 1.0 H Seg Neutrophils # Man 13.4 H Lymphocytes # (Manual) 0.3 L Monocytes # (Manual) PT 19.8 H INR 1.65 H APTT 47.8 H ABG pH ABG pO2 ABG HCO3 ABG O2 Saturation ABG Base Excess ABG Hemoglobin Oxyhemoglobin Sodium Potassium Chloride Carbon Dioxide BUN Creatinine Glucose POC Glucose 110 H Calcium Phosphorus Magnesium Iron TIBC Ferritin Total Bilirubin Direct Bilirubin AST Alkaline Phosphatase Lactate Dehydrogenase Troponin T NT-Pro-B Natriuret Pep Serum Total Protein Total Protein Albumin Orbjf-7-Anyunawbh Gamma Globulins PEP Interpretation LDL Cholesterol Direct Vitamin B12 Folate Urine WBC (Auto) Urine Creatinine Urine Total Protein Fluid Glucose Fluid Total Protein 07/12/19 07/12/19 07/12/19 15:08 15:08 15:08 WBC RBC Hgb Hct MCV MCH RDW Plt Count Seg Neuts % (Manual) Lymphocytes % (Manual) Monocytes % (Manual) Nucleated RBC % Seg Neutrophils # Man Lymphocytes # (Manual) Monocytes # (Manual) PT INR APTT ABG pH ABG pO2 ABG HCO3 ABG O2 Saturation ABG Base Excess ABG Hemoglobin Oxyhemoglobin Sodium 125 L Potassium 5.5 H Chloride 84.9 L Carbon Dioxide 13 L BUN 70 H Creatinine 8.8 H Glucose POC Glucose Calcium 8.0 L Phosphorus Magnesium 1.30 L Iron TIBC Ferritin Total Bilirubin 1.30 H Direct Bilirubin 0.9 H AST 53 H Alkaline Phosphatase 208 H Lactate Dehydrogenase Troponin T 0.192 H* NT-Pro-B Natriuret Pep > 85507 H Serum Total Protein Total Protein Albumin 3.3 L Egtbi-7-Kcgcojuva Gamma Globulins PEP Interpretation LDL Cholesterol Direct 40 L Vitamin B12 Folate Urine WBC (Auto) Urine Creatinine Urine Total Protein Fluid Glucose Fluid Total Protein 07/12/19 07/13/19 07/13/19 17:04 01:32 01:32 WBC RBC Hgb Hct MCV MCH RDW Plt Count Seg Neuts % (Manual) Lymphocytes % (Manual) Monocytes % (Manual) Nucleated RBC % Seg Neutrophils # Man Lymphocytes # (Manual) Monocytes # (Manual) PT INR APTT ABG pH ABG pO2 ABG HCO3 ABG O2 Saturation ABG Base Excess ABG Hemoglobin Oxyhemoglobin Sodium 133 L D Potassium 5.3 H Chloride 90.8 L Carbon Dioxide 20 L D BUN 48 H Creatinine 6.2 H Glucose 105 H POC Glucose Calcium 8.2 L Phosphorus 4.90 H Magnesium 1.50 L Iron TIBC Ferritin Total Bilirubin Direct Bilirubin AST Alkaline Phosphatase Lactate Dehydrogenase Troponin T 0.188 H* NT-Pro-B Natriuret Pep Serum Total Protein Total Protein Albumin Pivjj-8-Zgrqcmmds Gamma Globulins PEP Interpretation LDL Cholesterol Direct Vitamin B12 Folate Urine WBC (Auto) Urine Creatinine Urine Total Protein Fluid Glucose Fluid Total Protein 07/13/19 07/13/19 07/13/19 04:28 04:28 16:16 WBC 15.9 H RBC 3.10 L Hgb 10.2 L Hct 30.6 L MCV 99 H MCH 33 H RDW 19.4 H Plt Count 135 L Seg Neuts % (Manual) Lymphocytes % (Manual) 4.0 L Monocytes % (Manual) Nucleated RBC % Seg Neutrophils # Man 9.9 H Lymphocytes # (Manual) 0.6 L Monocytes # (Manual) PT INR APTT ABG pH ABG pO2 ABG HCO3 ABG O2 Saturation ABG Base Excess ABG Hemoglobin Oxyhemoglobin Sodium 132 L 134 L Potassium 5.1 H Chloride 90.3 L 92.2 L Carbon Dioxide 17 L 20 L BUN 47 H 55 H Creatinine 6.0 H 6.5 H Glucose 124 H POC Glucose Calcium 8.2 L 7.9 L Phosphorus Magnesium Iron TIBC Ferritin Total Bilirubin Direct Bilirubin AST Alkaline Phosphatase Lactate Dehydrogenase Troponin T NT-Pro-B Natriuret Pep Serum Total Protein Total Protein Albumin Fqydt-1-Fvweqafao Gamma Globulins PEP Interpretation LDL Cholesterol Direct Vitamin B12 Folate Urine WBC (Auto) Urine Creatinine Urine Total Protein Fluid Glucose Fluid Total Protein 07/14/19 07/14/19 07/14/19 07:16 07:16 07:16 WBC RBC 2.65 L Hgb 8.6 L Hct 25.4 L MCV 96 H MCH 33 H RDW 19.7 H Plt Count 114 L Seg Neuts % (Manual) 89.0 H Lymphocytes % (Manual) 4.0 L Monocytes % (Manual) Nucleated RBC % Seg Neutrophils # Man Lymphocytes # (Manual) 0.3 L Monocytes # (Manual) PT INR APTT ABG pH ABG pO2 ABG HCO3 ABG O2 Saturation ABG Base Excess ABG Hemoglobin Oxyhemoglobin Sodium 133 L Potassium Chloride 93.0 L Carbon Dioxide 18 L BUN 61 H Creatinine 7.3 H Glucose 113 H POC Glucose Calcium 7.7 L Phosphorus Magnesium Iron TIBC Ferritin Total Bilirubin Direct Bilirubin AST Alkaline Phosphatase Lactate Dehydrogenase 210 H Troponin T NT-Pro-B Natriuret Pep Serum Total Protein Total Protein Albumin Shmes-1-Uffsxzfgk Gamma Globulins PEP Interpretation LDL Cholesterol Direct Vitamin B12 Folate Urine WBC (Auto) Urine Creatinine Urine Total Protein Fluid Glucose Fluid Total Protein 07/14/19 07/14/19 07/14/19 10:45 16:40 17:28 WBC RBC Hgb Hct MCV MCH RDW Plt Count Seg Neuts % (Manual) Lymphocytes % (Manual) Monocytes % (Manual) Nucleated RBC % Seg Neutrophils # Man Lymphocytes # (Manual) Monocytes # (Manual) PT INR APTT ABG pH ABG pO2 ABG HCO3 ABG O2 Saturation ABG Base Excess ABG Hemoglobin Oxyhemoglobin Sodium Potassium Chloride Carbon Dioxide BUN Creatinine Glucose POC Glucose Calcium Phosphorus Magnesium Iron TIBC Ferritin Total Bilirubin Direct Bilirubin AST Alkaline Phosphatase Lactate Dehydrogenase Troponin T NT-Pro-B Natriuret Pep Serum Total Protein Total Protein Albumin Wjwnx-8-Wemigkufb Gamma Globulins PEP Interpretation LDL Cholesterol Direct Vitamin B12 Folate Urine WBC (Auto) Urine Creatinine 104.2 H 106.2 H Urine Total Protein 173 H Fluid Glucose 93 H Fluid Total Protein 4.7 L 07/14/19 07/14/19 07/15/19 17:28 20:43 06:30 WBC RBC 3.06 L Hgb 9.9 L Hct 29.7 L MCV 97 H MCH 33 H RDW 19.5 H Plt Count 101 L Seg Neuts % (Manual) Lymphocytes % (Manual) Monocytes % (Manual) Nucleated RBC % Seg Neutrophils # Man Lymphocytes # (Manual) Monocytes # (Manual) PT INR APTT ABG pH ABG pO2 ABG HCO3 ABG O2 Saturation ABG Base Excess ABG Hemoglobin Oxyhemoglobin Sodium Potassium Chloride Carbon Dioxide BUN Creatinine Glucose POC Glucose 120 H Calcium Phosphorus Magnesium Iron TIBC Ferritin Total Bilirubin Direct Bilirubin AST Alkaline Phosphatase Lactate Dehydrogenase Troponin T NT-Pro-B Natriuret Pep Serum Total Protein Total Protein Albumin Ncavi-5-Ildsnyldy Gamma Globulins PEP Interpretation LDL Cholesterol Direct Vitamin B12 Folate Urine WBC (Auto) 31.0 H Urine Creatinine Urine Total Protein Fluid Glucose Fluid Total Protein 07/15/19 07/15/19 07/15/19 06:30 06:30 06:30 WBC RBC Hgb Hct MCV MCH RDW Plt Count Seg Neuts % (Manual) Lymphocytes % (Manual) Monocytes % (Manual) Nucleated RBC % Seg Neutrophils # Man Lymphocytes # (Manual) Monocytes # (Manual) PT INR APTT ABG pH ABG pO2 ABG HCO3 ABG O2 Saturation ABG Base Excess ABG Hemoglobin Oxyhemoglobin Sodium Potassium Chloride 95.2 L Carbon Dioxide BUN 42 H Creatinine 4.9 H Glucose POC Glucose Calcium Phosphorus Magnesium Iron 15 L TIBC 186 L Ferritin 428.2 H Total Bilirubin Direct Bilirubin AST 50 H Alkaline Phosphatase 191 H Lactate Dehydrogenase Troponin T NT-Pro-B Natriuret Pep Serum Total Protein Total Protein Albumin 3.1 L Oslop-0-Xypkkrbbn Gamma Globulins PEP Interpretation LDL Cholesterol Direct Vitamin B12 Folate Urine WBC (Auto) Urine Creatinine Urine Total Protein Fluid Glucose Fluid Total Protein 07/15/19 07/16/19 07/16/19 12:42 06:19 21:34 WBC RBC Hgb Hct MCV MCH RDW Plt Count Seg Neuts % (Manual) Lymphocytes % (Manual) Monocytes % (Manual) Nucleated RBC % Seg Neutrophils # Man Lymphocytes # (Manual) Monocytes # (Manual) PT INR APTT ABG pH ABG pO2 ABG HCO3 ABG O2 Saturation ABG Base Excess ABG Hemoglobin Oxyhemoglobin Sodium 134 L 134 L Potassium Chloride 92.9 L 93.4 L Carbon Dioxide 20 L BUN 55 H 40 H Creatinine 5.6 H 4.4 H Glucose POC Glucose 140 H Calcium Phosphorus Magnesium Iron TIBC Ferritin Total Bilirubin Direct Bilirubin AST Alkaline Phosphatase Lactate Dehydrogenase Troponin T NT-Pro-B Natriuret Pep Serum Total Protein Total Protein Albumin Deqxj-7-[place] Gamma Globulins PEP Interpretation LDL Cholesterol Direct Vitamin B12 Folate Urine WBC (Auto) Urine Creatinine Urine Total Protein Fluid Glucose Fluid Total Protein 07/17/19 07/17/19 07/17/19 05:27 12:10 12:52 WBC RBC Hgb Hct MCV MCH RDW Plt Count Seg Neuts % (Manual) Lymphocytes % (Manual) Monocytes % (Manual) Nucleated RBC % Seg Neutrophils # Man Lymphocytes # (Manual) Monocytes # (Manual) PT INR APTT ABG pH ABG pO2 ABG HCO3 ABG O2 Saturation ABG Base Excess ABG Hemoglobin Oxyhemoglobin Sodium 136 L Potassium Chloride 93.6 L Carbon Dioxide BUN 43 H Creatinine 4.8 H Glucose POC Glucose 122 H 122 H Calcium Phosphorus Magnesium Iron TIBC Ferritin Total Bilirubin Direct Bilirubin AST Alkaline Phosphatase Lactate Dehydrogenase Troponin T NT-Pro-B Natriuret Pep Serum Total Protein Total Protein Albumin Xscom-6-Wlzflklxj Gamma Globulins PEP Interpretation LDL Cholesterol Direct Vitamin B12 Folate Urine WBC (Auto) Urine Creatinine Urine Total Protein Fluid Glucose Fluid Total Protein 07/17/19 07/18/19 07/18/19 13:50 04:20 05:40 WBC RBC Hgb Hct MCV MCH RDW Plt Count Seg Neuts % (Manual) Lymphocytes % (Manual) Monocytes % (Manual) Nucleated RBC % Seg Neutrophils # Man Lymphocytes # (Manual) Monocytes # (Manual) PT INR APTT ABG pH 7.262 L ABG pO2 195.5 H 238.9 H ABG HCO3 ABG O2 Saturation 99.1 H 99.4 H ABG Base Excess -2.9 L ABG Hemoglobin 8.6 L 10.9 L Oxyhemoglobin Sodium Potassium Chloride 94.5 L Carbon Dioxide BUN 61 H Creatinine 5.6 H Glucose 111 H POC Glucose Calcium Phosphorus 4.70 H Magnesium Iron TIBC Ferritin Total Bilirubin Direct Bilirubin AST Alkaline Phosphatase Lactate Dehydrogenase 294 H Troponin T NT-Pro-B Natriuret Pep Serum Total Protein Total Protein Albumin Kbbva-6-Bdomtaqgf Gamma Globulins PEP Interpretation LDL Cholesterol Direct Vitamin B12 Folate Urine WBC (Auto) Urine Creatinine Urine Total Protein Fluid Glucose Fluid Total Protein 07/18/19 07/18/19 07/18/19 05:40 05:40 10:30 WBC 22.7 H RBC 2.64 L Hgb 8.2 L Hct 24.9 L MCV 95 H MCH RDW 19.7 H Plt Count 94 L Seg Neuts % (Manual) Lymphocytes % (Manual) Monocytes % (Manual) Nucleated RBC % Seg Neutrophils # Man Lymphocytes # (Manual) Monocytes # (Manual) PT INR APTT ABG pH 7.457 H ABG pO2 ABG HCO3 26.3 H ABG O2 Saturation ABG Base Excess ABG Hemoglobin 7.8 L Oxyhemoglobin 94.6 L Sodium Potassium Chloride Carbon Dioxide BUN Creatinine Glucose POC Glucose Calcium Phosphorus Magnesium Iron TIBC Ferritin Total Bilirubin Direct Bilirubin 0.7 H AST 94 H Alkaline Phosphatase 159 H Lactate Dehydrogenase Troponin T NT-Pro-B Natriuret Pep Serum Total Protein Total Protein 5.6 L D Albumin 2.5 L Yxytj-5-Ymmotpneg Gamma Globulins PEP Interpretation LDL Cholesterol Direct Vitamin B12 Folate Urine WBC (Auto) Urine Creatinine Urine Total Protein Fluid Glucose Fluid Total Protein 07/18/19 07/19/19 07/19/19 Unknown 05:15 05:15 WBC RBC Hgb Hct MCV MCH RDW Plt Count Seg Neuts % (Manual) Lymphocytes % (Manual) Monocytes % (Manual) Nucleated RBC % Seg Neutrophils # Man Lymphocytes # (Manual) Monocytes # (Manual) PT INR APTT ABG pH ABG pO2 ABG HCO3 ABG O2 Saturation ABG Base Excess ABG Hemoglobin 11.6 L Oxyhemoglobin 94.3 L Sodium 133 L Potassium Chloride 94.9 L Carbon Dioxide BUN 43 H Creatinine 4.0 H Glucose 118 H POC Glucose Calcium Phosphorus Magnesium 0.20 L* Iron TIBC Ferritin Total Bilirubin Direct Bilirubin AST Alkaline Phosphatase Lactate Dehydrogenase Troponin T NT-Pro-B Natriuret Pep Serum Total Protein Total Protein Albumin Ilogz-6-Pxeyyhuhm Gamma Globulins PEP Interpretation LDL Cholesterol Direct Vitamin B12 Folate Urine WBC (Auto) Urine Creatinine Urine Total Protein Fluid Glucose Fluid Total Protein 07/19/19 07/19/19 07/20/19 05:15 06:00 06:15 WBC 14.6 H RBC 2.57 L Hgb 8.2 L Hct 24.3 L MCV 95 H MCH RDW 19.5 H Plt Count 101 L Seg Neuts % (Manual) Lymphocytes % (Manual) Monocytes % (Manual) Nucleated RBC % Seg Neutrophils # Man Lymphocytes # (Manual) Monocytes # (Manual) PT INR APTT ABG pH ABG pO2 91.2 H ABG HCO3 27.5 H ABG O2 Saturation ABG Base Excess ABG Hemoglobin 8.3 L Oxyhemoglobin Sodium Potassium Chloride Carbon Dioxide BUN 61 H Creatinine 4.6 H Glucose 117 H POC Glucose Calcium Phosphorus Magnesium Iron TIBC Ferritin Total Bilirubin Direct Bilirubin AST Alkaline Phosphatase Lactate Dehydrogenase Troponin T NT-Pro-B Natriuret Pep Serum Total Protein Total Protein Albumin Tyefl-0-Ldtxbmtyp Gamma Globulins PEP Interpretation LDL Cholesterol Direct Vitamin B12 Folate Urine WBC (Auto) Urine Creatinine Urine Total Protein Fluid Glucose Fluid Total Protein 07/21/19 07/21/19 07/21/19 05:30 06:15 06:15 WBC 11.8 H RBC 2.45 L Hgb 7.9 L Hct 23.5 L MCV 96 H MCH RDW 19.4 H Plt Count Seg Neuts % (Manual) Lymphocytes % (Manual) Monocytes % (Manual) Nucleated RBC % Seg Neutrophils # Man Lymphocytes # (Manual) Monocytes # (Manual) PT INR APTT ABG pH ABG pO2 104.5 H ABG HCO3 27.9 H ABG O2 Saturation ABG Base Excess 3.3 H ABG Hemoglobin 8.2 L Oxyhemoglobin Sodium Potassium 3.3 L Chloride Carbon Dioxide BUN 74 H Creatinine 4.3 H Glucose 127 H POC Glucose Calcium Phosphorus Magnesium Iron TIBC Ferritin Total Bilirubin Direct Bilirubin AST Alkaline Phosphatase Lactate Dehydrogenase Troponin T NT-Pro-B Natriuret Pep Serum Total Protein Total Protein Albumin Uxhtg-1-Xbcygganr Gamma Globulins PEP Interpretation LDL Cholesterol Direct Vitamin B12 Folate Urine WBC (Auto) Urine Creatinine Urine Total Protein Fluid Glucose Fluid Total Protein 07/21/19 07/21/19 07/21/19 08:00 08:00 17:51 WBC RBC Hgb Hct MCV MCH RDW Plt Count Seg Neuts % (Manual) Lymphocytes % (Manual) Monocytes % (Manual) Nucleated RBC % Seg Neutrophils # Man Lymphocytes # (Manual) Monocytes # (Manual) PT INR APTT ABG pH ABG pO2 ABG HCO3 ABG O2 Saturation ABG Base Excess ABG Hemoglobin Oxyhemoglobin Sodium Potassium 3.2 L Chloride Carbon Dioxide BUN Creatinine Glucose POC Glucose Calcium Phosphorus Magnesium Iron TIBC Ferritin Total Bilirubin Direct Bilirubin AST Alkaline Phosphatase Lactate Dehydrogenase Troponin T NT-Pro-B Natriuret Pep Serum Total Protein Total Protein Albumin Llrzm-8-Czlcyjzzp Gamma Globulins PEP Interpretation LDL Cholesterol Direct Vitamin B12 960.4 H Folate 6.18 L Urine WBC (Auto) Urine Creatinine Urine Total Protein Fluid Glucose Fluid Total Protein 07/22/19 07/22/19 07/22/19 03:40 06:00 21:45 WBC 12.6 H RBC 2.54 L Hgb 7.8 L Hct 24.2 L MCV 95 H MCH RDW 19.7 H Plt Count Seg Neuts % (Manual) Lymphocytes % (Manual) Monocytes % (Manual) Nucleated RBC % Seg Neutrophils # Man Lymphocytes # (Manual) Monocytes # (Manual) PT INR APTT ABG pH ABG pO2 99.4 H ABG HCO3 27.3 H ABG O2 Saturation ABG Base Excess ABG Hemoglobin 9.2 L Oxyhemoglobin Sodium Potassium 3.1 L Chloride Carbon Dioxide BUN 75 H Creatinine 2.9 H Glucose 123 H POC Glucose Calcium Phosphorus Magnesium Iron TIBC Ferritin Total Bilirubin Direct Bilirubin AST Alkaline Phosphatase Lactate Dehydrogenase Troponin T NT-Pro-B Natriuret Pep Serum Total Protein Total Protein Albumin Wiqzd-7-Vjvbsoyoe Gamma Globulins PEP Interpretation LDL Cholesterol Direct Vitamin B12 Folate Urine WBC (Auto) Urine Creatinine Urine Total Protein Fluid Glucose Fluid Total Protein 07/23/19 07/23/19 07/24/19 05:30 05:30 04:12 WBC RBC Hgb Hct MCV MCH RDW Plt Count Seg Neuts % (Manual) Lymphocytes % (Manual) Monocytes % (Manual) Nucleated RBC % Seg Neutrophils # Man Lymphocytes # (Manual) Monocytes # (Manual) PT INR APTT ABG pH ABG pO2 123.1 H ABG HCO3 27.1 H ABG O2 Saturation ABG Base Excess ABG Hemoglobin 9.3 L Oxyhemoglobin Sodium Potassium 3.1 L Chloride Carbon Dioxide BUN 80 H Creatinine 2.6 H Glucose 112 H POC Glucose Calcium Phosphorus Magnesium Iron TIBC Ferritin Total Bilirubin Direct Bilirubin AST Alkaline Phosphatase Lactate Dehydrogenase Troponin T NT-Pro-B Natriuret Pep Serum Total Protein 5.9 L Total Protein Albumin 2.2 L Sljmb-2-Msbcynnzl 0.5 H Gamma Globulins 2.0 H PEP Interpretation see below H LDL Cholesterol Direct Vitamin B12 Folate Urine WBC (Auto) Urine Creatinine Urine Total Protein Fluid Glucose Fluid Total Protein 07/24/19 07/24/19 07/25/19 07:03 07:03 04:05 WBC RBC Hgb Hct MCV MCH RDW Plt Count Seg Neuts % (Manual) Lymphocytes % (Manual) Monocytes % (Manual) Nucleated RBC % Seg Neutrophils # Man Lymphocytes # (Manual) Monocytes # (Manual) PT INR APTT ABG pH ABG pO2 ABG HCO3 ABG O2 Saturation ABG Base Excess ABG Hemoglobin Oxyhemoglobin Sodium 147 H Potassium 3.4 L Chloride 107.5 H 110.1 H Carbon Dioxide BUN 70 H 62 H Creatinine 1.8 H Glucose 112 H 115 H POC Glucose Calcium Phosphorus Magnesium 1.50 L Iron TIBC Ferritin Total Bilirubin Direct Bilirubin AST Alkaline Phosphatase Lactate Dehydrogenase Troponin T NT-Pro-B Natriuret Pep Serum Total Protein Total Protein Albumin Vprut-2-Qxjnjhhlj Gamma Globulins PEP Interpretation LDL Cholesterol Direct Vitamin B12 Folate Urine WBC (Auto) Urine Creatinine Urine Total Protein Fluid Glucose Fluid Total Protein 07/25/19 07/25/19 07/26/19 04:05 05:27 04:47 WBC 11.4 H RBC 2.39 L Hgb 7.5 L Hct 23.0 L MCV 96 H MCH RDW 19.4 H Plt Count Seg Neuts % (Manual) 76.0 H Lymphocytes % (Manual) 9.0 L Monocytes % (Manual) 11.0 H Nucleated RBC % Seg Neutrophils # Man 8.7 H Lymphocytes # (Manual) 1.0 L Monocytes # (Manual) 1.3 H PT INR APTT ABG pH 7.457 H ABG pO2 75.5 L ABG HCO3 27.2 H ABG O2 Saturation ABG Base Excess 3.1 H ABG Hemoglobin 7.0 L Oxyhemoglobin 94.4 L Sodium 147 H Potassium Chloride 111.5 H Carbon Dioxide BUN 57 H Creatinine Glucose 121 H POC Glucose Calcium Phosphorus Magnesium Iron TIBC Ferritin Total Bilirubin Direct Bilirubin AST Alkaline Phosphatase Lactate Dehydrogenase Troponin T NT-Pro-B Natriuret Pep Serum Total Protein Total Protein Albumin Ejggp-7-Ndhgrlfzc Gamma Globulins PEP Interpretation LDL Cholesterol Direct Vitamin B12 Folate Urine WBC (Auto) Urine Creatinine Urine Total Protein Fluid Glucose Fluid Total Protein 07/26/19 07/27/19 07/27/19 04:47 01:17 05:55 WBC RBC Hgb Hct MCV MCH RDW Plt Count Seg Neuts % (Manual) Lymphocytes % (Manual) Monocytes % (Manual) Nucleated RBC % Seg Neutrophils # Man Lymphocytes # (Manual) Monocytes # (Manual) PT INR APTT ABG pH ABG pO2 ABG HCO3 ABG O2 Saturation ABG Base Excess ABG Hemoglobin Oxyhemoglobin Sodium 147 H Potassium Chloride 109.6 H Carbon Dioxide BUN 43 H Creatinine Glucose 113 H POC Glucose 122 H Calcium Phosphorus Magnesium 1.50 L Iron TIBC Ferritin Total Bilirubin Direct Bilirubin AST Alkaline Phosphatase Lactate Dehydrogenase Troponin T NT-Pro-B Natriuret Pep Serum Total Protein Total Protein Albumin Hwvcb-0-Wbdemrpjv Gamma Globulins PEP Interpretation LDL Cholesterol Direct Vitamin B12 Folate Urine WBC (Auto) Urine Creatinine Urine Total Protein Fluid Glucose Fluid Total Protein
--- NOTE | 2019-07-27 15:19 | Progress Note ---
Assessment and Plan Assessment and plan: 48-year-old man with a history of being deaf (writes to communicate) HTN, Systolic CHF(EF 20%), anxiety, depression COPD and GERD who presented to [facility] ED with severe SOB. EMS found patient to have a pulse oximetry of 80% on room air, improved to 92% on 2 L of supplemental oxygen. Patient was confused and provided limited history. Patient refused BiPAP. Patient given 40 mg of Lasix IV and and EMS gave 40mg iv lasix prior to arrival. Patient was found to have left lower lobe pneumonia, complicated by acute respiratory failure, severe Uremia, hyponatremia, hyperkalemia, metabolic acidosis. Patient admitted to medical floor for medical stabilization and treatment due to high risk for cardiopul monary and renal decompensation. Nephrology team consulted in ED for urgent dialysis. Patient initiated on pneumonia protocol with IV antibiotic therapy. Patient treated with calcium gluconate and Kayexalate for hyperkalemia in ED. EKG showed no changes. Patient mental status so poor he had to be put in restraints to prevent for pulling and removing O2. Next day, patient remained confused, so He went down for CT head and he must've removed O2 mask while in CT scanner or had a fatal cardiac arrhythmia which he was experiencing NSVT/aflutter with RVR the night before. This led to Cardiac arrest. ED physician was the first to respond and saw Asystole on the monitor, ACLS done and when I arrived he was in PEA. He was a difficult Intubation as he had bleeding in the Endotracheal area due to Eliquis which was started on 07/16/2019. He was intubated by ED physician. Pulse was restored and he was sent to the ICU, where he had another Cardiac arrest with PEA, ACLS done again and pulse meg red. Overnight he was posturing. He is comatose without any sedative. -History of deafness * pCXR showed bilateral pleural effusion with significant pulmonary congestion. EKG showed no ST elevation. * Initial Labs: WBC 14.7, hgb 9.7, plt 124, Na 125, k 5.5, co2 13, BUN 70, Cr 8.8 * brain MRI shows volume loss and chronic white matter changes. 8 mm focus of subacute ischemia is identified in the right posterior temporal white matter. No findings to suggest diffuse anoxic injury. Acute on chronic systolic heart failure decompensation leading to respiratory failure: Meds optimized. Fluid was removed via dialysis, now has good urine output, improving Bilateral pneumonia; completed antibiotics on 07/25 Acute on chronic CHF, EF 25%. Medications optimized per cardiology, patient now appears to be improving Fluid overload, Ascites, status post paracentesis on 07/15, 3.2 L removed. Received dialysis. Acute hypoxic respiratory failure on MV > 96 hours, continue mechanical ventilator Severe ARF due to ATN, no longer needing HD. Nephrology input appreciated, has good urine output. HD cath now removed. acute metabolic encephalopathy, acute metabolic encephalopathy, poa, thought to be due to severe Uremia, but uremia improved and he still not responsive , needing restraints for agitation CVA; noted on MRI, optimize medications for secondary prevention, aspirin, statin, blood pressure control. Anemia appears AOCD due to renal dysfunction: continue to monitor cbc Thrombocytopenia: Likely due to alcohol abuse, resolved Obesity, bmi 32.1: retirement plan counselor on lifestyle modification if patient improves Transient A. fib/a flutter on NSVT. Now resolved, no further medication or work-up required Hypokalemia; repleted Hypertensive urgency; continue to adjust BP meds Hypernatremia; continue free water via G-tube, added small amounts of D5 water given advanced heart failure History of nonadherence, alcohol abuse, plan to retirement plan counselor patient to be his mentation improves. Copious oral secretions, cont scopolamine, add robinul full code DVT ppx: Michelle Discussed the goals of care and updated his father, his brother and his father's girlfriend. Explained the very poor prognosis. They would like to have family meeting with other family members and will return to us with a plan. Explained the options of hospice and removal of right support versus trach and PEG and long term. the family is interested in him getting trach and PEG and placements. They have been advised to try to obtain insurance for him, as he will need to pay source to go to a rehab facility. -Prognosis is poor, this was conveyed to the family Advanced care planning performed for 30 minutes. Critical care time 35 minutes. History Interval history: No fevers No vomiting no seizure-like activity No diarrhea Continues to be agitated requiring Ativan pushes No obvious discomfort Hospitalist Physical - Physical exam Narrative exam: General.: not responsive HEENT: Moist mucous membranes, no lymphadenopathy, copious oral secretions Neck: supple Cardiac: S1-S2 heard Lungs: Rhonchorous and ventilated breath sounds. Abdomen: soft , nontender, nondistended, bowel sounds positive Extremities: no edema clubbing or cyanosis Skin: no rash or lesions Neurologic: Intubated, not responsive, has some spontaneous movements, opens eyes at times, chewing and fighting endotracheal tube. But does not obey commands, - Constitutional Vitals: Temp Pulse Resp BP Pulse Ox 100.3 F H 103 H 20 94/58 96 07/27/19 12:00 07/27/19 13:00 07/27/19 13:00 07/27/19 13:00 07/27/19 13:00 General appearance: Present: no acute distress Results - Labs CBC & Chem 7: 07/25/19 04:05 07/27/19 05:55 Labs: Laboratory Last Values WBC 11.4 K/mm3 (4.5-11.0) H 07/25/19 04:05 RBC 2.39 M/mm3 (3.65-5.03) L 07/25/19 04:05 Hgb 7.5 gm/dl (11.8-15.2) L 07/25/19 04:05 Hct 23.0 % (35.5-45.6) L 07/25/19 04:05 MCV 96 fl (84-94) H 07/25/19 04:05 MCH 31 pg (28-32) 07/25/19 04:05 MCHC 33 % (32-34) 07/25/19 04:05 RDW 19.4 % (13.2-15.2) H 07/25/19 04:05 Plt Count 333 K/mm3 (140-440) 07/25/19 04:05 Lymph % (Auto) Seasoner Hand 07/13/19 04:28 Hooker % (Auto) Seasoner Hand 07/13/19 04:28 Eos % (Auto) Seasoner Hand 07/13/19 04:28 Baso % (Auto) Seasoner Hand 07/13/19 04:28 Lymph # Seasoner Hand 07/13/19 04:28 Hooker # Seasoner Hand 07/13/19 04:28 Eos # Seasoner Hand 07/13/19 04:28 Baso # Seasoner Hand 07/13/19 04:28 Add Manual Diff Complete 07/25/19 04:05 Total Counted 100 07/25/19 04:05 Seg Neutrophils % Seasoner Hand 07/13/19 04:28 Seg Neuts % (Manual) 76.0 % (40.0-70.0) H 07/25/19 04:05 Band Neutrophils % 0 % 07/25/19 04:05 Lymphocytes % (Manual) 9.0 % (13.4-35.0) L 07/25/19 04:05 Reactive Lymphs % (Man) 0 % 07/25/19 04:05 Monocytes % (Manual) 11.0 % (0.0-7.3) H 07/25/19 04:05 Eosinophils % (Manual) 2.0 % (0.0-4.3) 07/25/19 04:05 Basophils % (Manual) 0 % (0.0-1.8) 07/25/19 04:05 Metamyelocytes % 2.0 % 07/25/19 04:05 Myelocytes % 0 % 07/25/19 04:05 Promyelocytes % 0 % 07/25/19 04:05 Blast Cells % 0 % 07/25/19 04:05 Nucleated RBC % Not Reportable 07/25/19 04:05 Seg Neutrophils # Seasoner Hand 07/13/19 04:28 Seg Neutrophils # Man 8.7 K/mm3 (1.8-7.7) H 07/25/19 04:05 Band Neutrophils # 0.0 K/mm3 07/25/19 04:05 Lymphocytes # (Manual) 1.0 K/mm3 (1.2-5.4) L 07/25/19 04:05 Abs React Lymphs (Man) 0.0 K/mm3 07/25/19 04:05 Monocytes # (Manual) 1.3 K/mm3 (0.0-0.8) H 07/25/19 04:05 Eosinophils # (Manual) 0.2 K/mm3 (0.0-0.4) 07/25/19 04:05 Basophils # (Manual) 0.0 K/mm3 (0.0-0.1) 07/25/19 04:05 Metamyelocytes # 0.2 K/mm3 07/25/19 04:05 Myelocytes # 0.0 K/mm3 07/25/19 04:05 Promyelocytes # 0.0 K/mm3 07/25/19 04:05 Blast Cells # 0.0 K/mm3 07/25/19 04:05 WBC Morphology Not Reportable 07/25/19 04:05 Hypersegmented Neuts Not Reportable 07/25/19 04:05 Hyposegmented Neuts Not Reportable 07/25/19 04:05 Hypogranular Neuts Not Reportable 07/25/19 04:05 Smudge Cells Not Reportable 07/25/19 04:05 Toxic Granulation Not Reportable 07/25/19 04:05 Toxic Vacuolation Not Reportable 07/25/19 04:05 Dohle Bodies Not Reportable 07/25/19 04:05 Pelger-Huet Anomaly Not Reportable 07/25/19 04:05 Mack Rods Not Reportable 07/25/19 04:05 Platelet Estimate Consistent w auto 07/25/19 04:05 Clumped Platelets Not Reportable 07/25/19 04:05 Plt Clumps, EDTA Not Reportable 07/25/19 04:05 Large Platelets Not Reportable 07/25/19 04:05 Giant Platelets Not Reportable 07/25/19 04:05 Platelet Satelliting Not Reportable 07/25/19 04:05 Plt Morphology Comment Not Reportable 07/25/19 04:05 RBC Morphology Not Reportable 07/25/19 04:05 Dimorphic RBCs Not Reportable 07/25/19 04:05 Polychromasia Not Reportable 07/25/19 04:05 Hypochromasia 1+ 07/25/19 04:05 Poikilocytosis Not Reportable 07/25/19 04:05 Anisocytosis Few 07/25/19 04:05 Microcytosis Not Reportable 07/25/19 04:05 Macrocytosis Not Reportable 07/25/19 04:05 Spherocytes Not Reportable 07/25/19 04:05 Pappenheimer Bodies Not Reportable 07/25/19 04:05 Sickle Cells Not Reportable 07/25/19 04:05 Target Cells Not Reportable 07/25/19 04:05 Tear Drop Cells Not Reportable 07/25/19 04:05 Ovalocytes Not Reportable 07/25/19 04:05 Helmet Cells Not Reportable 07/25/19 04:05 Jackson-Burgaw Bodies Not Reportable 07/25/19 04:05 Artemas Rings Not Reportable 07/25/19 04:05 [place] Cells Not Reportable 07/25/19 04:05 Bite Cells Not Reportable 07/25/19 04:05 Crenated Cell Not Reportable 07/25/19 04:05 Elliptocytes Not Reportable 07/25/19 04:05 Acanthocytes (Spur) Not Reportable 07/25/19 04:05 Rouleaux Not Reportable 07/25/19 04:05 Hemoglobin C Crystals Not Reportable 07/25/19 04:05 Schistocytes Rare 07/25/19 04:05 Malaria parasites Not Reportable 07/25/19 04:05 Víctor Bodies Not Reportable 07/25/19 04:05 Hem Pathologist Commnt No 07/25/19 04:05 PT 19.8 Sec. (12.2-14.9) H 07/12/19 15:08 INR 1.65 (0.87-1.13) H 07/12/19 15:08 APTT 47.8 Sec. (24.2-36.6) H 07/12/19 15:08 ABG pH 7.457 pH Units (7.350-7.450) H 07/25/19 05:27 ABG pCO2 39.4 mm Hg 07/25/19 05:27 ABG pO2 75.5 mm Hg (80.0-90.0) L 07/25/19 05:27 ABG HCO3 27.2 mmol/L (20.0-26.0) H 07/25/19 05:27 ABG O2 Saturation 97.1 % (95.0-99.0) 07/25/19 05:27 ABG O2 Content 9.4 (0.0-44) 07/25/19 05:27 ABG Base Excess 3.1 mmol/L (-2.0-3.0) H 07/25/19 05:27 ABG Hemoglobin 7.0 gm/dl (14.0-18.0) L 07/25/19 05:27 ABG Carboxyhemoglobin 2.2 % (0.0-5.0) 07/25/19 05:27 ABG Methemoglobin 0.5 % (0.0-1.5) 07/25/19 05:27 Oxyhemoglobin 94.4 % (95.0-99.0) L 07/25/19 05:27 FiO2 30 % 07/25/19 05:27 Sodium 147 mmol/L (137-145) H 07/27/19 05:55 Potassium 3.9 mmol/L (3.6-5.0) 07/27/19 05:55 Chloride 109.6 mmol/L (98-107) H 07/27/19 05:55 Carbon Dioxide 25 mmol/L (22-30) 07/27/19 05:55 Anion Gap 16 mmol/L 07/27/19 05:55 BUN 43 mg/dL (9-20) H 07/27/19 05:55 Creatinine 1.2 mg/dL (0.8-1.5) 07/27/19 05:55 Estimated GFR > 60 ml/min 07/27/19 05:55 BUN/Creatinine Ratio 36 % 07/27/19 05:55 Glucose 113 mg/dL (75-100) H 07/27/19 05:55 POC Glucose 122 (70-105) H 07/27/19 01:17 Calcium 9.2 mg/dL (8.4-10.2) 07/27/19 05:55 Phosphorus 2.70 mg/dL (2.5-4.5) 07/24/19 07:03 Magnesium 1.80 mg/dL (1.7-2.3) 07/27/19 05:55 Iron 15 ug/dL (49-181) L 07/15/19 06:30 TIBC 186 mcg/dL (250-450) L 07/15/19 06:30 Ferritin 428.2 ng/mL (13.0-400.0) H 07/15/19 06:30 Total Bilirubin 1.10 mg/dL (0.1-1.2) 07/18/19 05:40 Direct Bilirubin 0.7 mg/dL (0-0.2) H 07/18/19 05:40 Indirect Bilirubin 0.4 mg/dL 07/18/19 05:40 AST 94 units/L (5-40) H 07/18/19 05:40 ALT 16 units/L (7-56) 07/18/19 05:40 Alkaline Phosphatase 159 units/L (35-129) H 07/18/19 05:40 Lactate Dehydrogenase 294 units/L (91-180) H 07/18/19 05:40 Total Creatine Kinase 59 units/L (55-170) 07/14/19 07:16 Troponin T 0.188 ng/mL (0.00-0.029) H* 07/12/19 17:04 NT-Pro-B Natriuret Pep > 94359 pg/mL (0-450) H 07/12/19 15:08 Serum Total Protein 5.9 g/dL (6.1-8.1) L 07/23/19 05:30 Total Protein 5.6 g/dL (6.3-8.2) L D 07/18/19 05:40 Albumin 2.2 g/dL (3.8-4.8) L 07/23/19 05:30 Albumin/Globulin Ratio 0.8 % 07/18/19 05:40 Agbfm-2-Ycawociyf 0.5 g/dL (0.2-0.3) H 07/23/19 05:30 Tsrlz-6-Swpyxabyc 0.5 g/dL (0.5-0.9) 07/23/19 05:30 Beta Globulins 0.4 g/dL (0.2-0.5) 07/23/19 05:30 Gamma Globulins 2.0 g/dL (0.8-1.7) H 07/23/19 05:30 Abnorm Protein Band 1 see below 07/23/19 05:30 PEP Interpretation see below H 07/23/19 05:30 Triglycerides 128 mg/dL (2-149) 07/12/19 15:08 Cholesterol 121 mg/dL (50-199) 07/12/19 15:08 LDL Cholesterol Direct 40 mg/dL (50-130) L 07/12/19 15:08 HDL Cholesterol 44 mg/dL (40-59) 07/12/19 15:08 Cholesterol/HDL Ratio 2.75 % 07/12/19 15:08 Vitamin B12 960.4 pg/mL (211-911) H 07/21/19 08:00 Folate 6.18 ng/mL (7.3-26.0) L 07/21/19 08:00 Procalcitonin 8.19 ng/mL (<0.15) 07/23/19 05:30 Urine Color Eugenia (Yellow) 07/14/19 17:28 Urine Turbidity Slightly-cloudy (Clear) 07/14/19 17:28 Urine pH 5.0 (5.0-7.0) 07/14/19 17:28 Ur Specific [place] 1.014 (1.003-1.030) 07/14/19 17:28 Urine Protein 100 mg/dl mg/dL (Negative) 07/14/19 17:28 Urine Glucose (UA) Neg mg/dL (Negative) 07/14/19 17:28 Urine Ketones Neg mg/dL (Negative) 07/14/19 17:28 Urine Blood Sm (Negative) 07/14/19 17:28 Urine Nitrite Neg (Negative) 07/14/19 17:28 Urine Bilirubin Neg (Negative) 07/14/19 17:28 Urine Urobilinogen < 2.0 mg/dL (<2.0) 07/14/19 17:28 Ur Leukocyte Esterase Neg (Negative) 07/14/19 17:28 Urine WBC (Auto) 31.0 /HPF (0.0-6.0) H 07/14/19 17:28 Urine RBC (Auto) 3.0 /HPF (0.0-6.0) 07/14/19 17:28 U Epithel Cells (Auto) < 1.0 /HPF (0-13.0) 07/14/19 17:28 Urine Bacteria (Auto) 1+ /HPF (Negative) 07/14/19 17:28 Urine Mucus Few /HPF 07/14/19 17:28 Urine Yeast (Budding) Few /HPF 07/14/19 17:28 Urine Eosinophils Rare seen (None Seen) 07/14/19 17:28 Urine Creatinine 106.2 mg/dL (0.1-20.0) H 07/14/19 17:28 Protein/Creatinin Ratio 1.66 07/14/19 16:40 Urine Sodium 67 mmol/L 07/14/19 17:28 Urine Urea Nitrogen 100 07/14/19 17:28 Urine Total Protein 173 mg/dL (5-11.8) H 07/14/19 16:40 Fluid Type Paracentesis 07/14/19 10:45 Fluid Color Bloody 07/14/19 10:45 Fluid Appearance Bloody 07/14/19 10:45 Fluid WBC 120 /mm3 07/14/19 10:45 Fluid RBC 88239 /mm3 07/14/19 10:45 Fluid Seg Neutrophils 33.0 % 07/14/19 10:45 Fluid Lymphocytes 17.0 % 07/14/19 10:45 Fluid Reactive Lymphs 0 % 07/14/19 10:45 Fluid Monocytes 50.0 % 07/14/19 10:45 Fluid Eosinophils 0 % 07/14/19 10:45 Fluid Basophils 0 % 07/14/19 10:45 Fluid Glucose 93 mg/dL (40-70) H 07/14/19 10:45 Fluid Total Protein 4.7 (15.0-45.0) L 07/14/19 10:45 Fluid LDH 07/14/19 10:45 Random Vancomycin 14.5 ug/mL (0-40.0) 07/19/19 05:15 SHANNA Screen Negative (Negative) 07/14/19 11:50 Proteinase 3 (PR3) Ab <1.0 AI (<1.0) 07/14/19 11:50 Myeloperoxidase Ab <1.0 AI (<1.0) 07/14/19 11:50 Glomerular Base Mem IgG See scanned result 07/14/19 11:50 Complement C3 124 mg/dL (82-185) 07/14/19 11:50 Complement C4 28 mg/dL (15-53) 07/14/19 11:50 Hepatitis A IgM Ab Non-reactive (NonReactive) 07/12/19 17:49 Hep Bs Antigen Non-reactive (Negative) 07/14/19 11:50 Hep B Core IgM Ab Non-reactive (NonReactive) 07/12/19 17:49 Hepatitis C Antibody Non-reactive (NonReactive) 07/14/19 11:50 HIV-1 Antibody See scanned result 07/14/19 11:50 HIV-2 Ab (Immunoblot) See scanned result 07/14/19 11:50 Schistocytes Smear Rare 07/18/19 05:40 Active Medications - Current Medications Current Medications: Generic Name Dose Route Start Last Admin Trade Name Freq PRN Reason Stop Dose Admin Acetaminophen 650 mg 07/20/19 16:56 07/22/19 01:58 Tylenol FEEDTUBE 650 mg Q6H PRN Administration Fever >101 Albuterol 2.5 mg 07/14/19 04:54 07/16/19 13:42 Proventil IH 2.5 mg Q4HRT PRN Administration Shortness Of Breath Lipase/Protease/Amylase 1 each 07/18/19 13:20 Pancreazchapito Moeller 10,500 Unit FEEDTUBE PRN PRN For Clogged Feeding Tube Epoetin Barney 10,000 unit 07/14/19 10:13 07/18/19 22:04 Procrit IV 10,000 unit CHEMA PRN Administration DIALYSIS Fentanyl 25 mcg 07/25/19 10:51 Sublimaze IV Q2HR PRN Pain, Moderate (4-6) Haloperidol Lactate 5 mg 07/12/19 21:35 07/24/19 12:00 Haldol IV 5 mg Q1H PRN Administration Unrespon. to mult. doses BZD's Hydralazine HCl 10 mg 07/23/19 10:46 07/27/19 02:24 Apresoline IV 10 mg Q4HR PRN Administration BP >160/100 Sodium Chloride 100 mls @ 999 mls/hr 07/16/19 12:11 Nacl 0.9% IV CHEMA PRN Hypotension Dextrose 1,000 mls @ 42 mls/hr 07/26/19 15:00 07/27/19 02:25 D5w IV 42 mls/hr DIRECT TERRELL Administration Lansoprazole 30 mg 07/18/19 11:00 07/27/19 09:20 Prevacid Solutab FEEDTUBE 30 mg QDAY TERRELL Administration Lorazepam 1 mg 07/27/19 11:49 Ativan IV Q2H PRN Agitation Scopolamine 1 each 07/23/19 11:00 07/26/19 12:34 Transderm-Scop TD 1 each Q3D TERRELL Administration Simple Syrup 15 ml 07/18/19 13:20 Simple Syrup FEEDTUBE PRN PRN Hypoglycemia Simple Syrup 30 ml 07/18/19 13:20 Simple Syrup FEEDTUBE PRN PRN Hypoglycemia Sodium Bicarbonate 325 mg 07/18/19 13:20 Sodium Bicarbonate FEEDTUBE PRN PRN For Clogged Feeding Tube Thiamine HCl 100 mg 07/22/19 10:00 07/27/19 09:20 Vitamin B-1 PO 100 mg QDAY TERRELL Administration Valsartan 80 mg 07/27/19 15:16 Diovan PO BID TERRELL Nutrition/Malnutrition Assess - Dietary Evaluation Nutrition/Malnutrition Findings: Nutrition Notes Start: 07/18/19 12:09 Freq: Status: Active Protocol: Document 07/24/19 10:53 MK (Rec: 07/24/19 10:57 MK [id number]) Co-Sign 07/24/19 10:53 LP Nutrition Notes Initial or Follow up Reassessment Current Diagnosis Acute Kidney Injury, Hypertension,Heart Failure, Respiratory Failure Other Pertinent Diagnosis on HD , metabolic acidosis, pnuemonia Current Diet Nepro at 41ml/hr Labs/Tests K 3.4 BUN 70 Cr 1.8 Pertinent Medications Reviewed Height 5 ft 10 in Weight 102 kg [place] Body Weight (kg) 75.45 BMI 32.2 Subjective/Other Information Pt tolerating Nepro at 41ml/hr . Pt remains on vent. Percent of energy/protein needs met: 100%/53% Burn Absent Trauma Absent GI Symptoms None Difficulty In Swallowing,Chewing Current % PO Negligible Minimum of two criteria Yes Energy Intake (severe) < or equal to 50% Estimated Energy Requirement > or equal to 5 days Muscle Mass Mild Depletion (non-severe) Fluid Accumulation Moderate to Severe (severe) Reduced Pile Driving Superintendent Strength Measurably Reduced (severe) #2 Nutrition Diagnosis Malnutrition Diagnosis Progress(for reassessment Continues documentation) #1 Nutrition Diagnosis Inadequate oral intake Diagnosis Progress(for reassessment Continues documentation) Is patient on ventilator? Yes Is Patient Ambulatory and/or Out of Bed No REE-([facility]-confined to bed) 2272.980 Kcal/Kg value to use for calculation 17 Approximate Energy Requirements Using 1734 kcal/Kg Calculation Used for Recommendations Kcal/kg Additional Notes Protein needs: 150 g (> 2 g/ kgIBW) Fluid needs: 1ml/kcal or per MD Nutrition Intervention Change Diet Order: TF Nutrition Support: Nepro 1.8 at 41 ml/hr. Water flush of 130 ml q4h. Kcal 1,771 Protein (gm) 80 Fluid (mL) 715 Goal #1 Meet at least 75% of protein and energy needs Anticipated Discharge Needs: unble to determine at this time Follow-Up By: 07/31/19 Additional Comments Follow for stable TF tolerance
--- NOTE | 2019-07-27 15:22 | Consultation ---
History of Present Illness Consult date: 07/27/19 Chief complaint: vent - History of present illness History of present illness: 48 yo M with hx of CHF who presented to [facility] ER with shortness of breath for several days. Pt unable to provide history as he is intubated. All history obtained from chart. Pt was intubated during the hospitalization after he suffered a cardiac arrest on 07/17/19. He has not been able to weaned from the vent. Surgery is consulted for trach/PEG evaluation. Past History Past Medical History: COPD, heart failure, hypertension, other (See HPI) Past Surgical History: No surgical history, Other (Reviewed) Social history: single. denies: smoking, alcohol abuse, prescription drug abuse Family history: diabetes, hypertension Medications and Allergies Allergies Allergy/AdvReac Type Severity Reaction Status Date / Time No Known Allergies Allergy Verified 07/01/19 11:20 Home Medications Medication Instructions Recorded Confirmed Last Taken Type Magnesium Oxide 400 mg PO BIDAC #60 tablet 12/07/16 07/13/19 1 Day Ago Rx ~09/16/17 Thiamine [Vitamin B-1] 100 mg PO QDAY #30 tablet 12/07/16 07/13/19 2 Days Ago Rx ~09/14/17 100 mg Lisinopril [Zestril] 20 mg PO DAILY #30 tablet 09/18/17 07/13/19 Unknown Rx Pantoprazole [Protonix TAB] 40 mg PO BID #60 tablet 09/18/17 07/13/19 Unknown Rx Aspirin [Aspirin BABY CHEW TAB] 81 mg PO QDAY #30 tab.chew 07/05/19 07/13/19 Unknown Rx Furosemide [Lasix TAB] 40 mg PO BID #60 tablet 07/05/19 07/13/19 Unknown Rx Nitroglycerin [Nitrostat] 0.4 mg SL .Q5MIN PRN #10 tablet 07/05/19 07/13/19 Unknown Rx Spironolactone [Aldactone] 12.5 mg PO QDAY #30 tablet 07/05/19 07/13/19 Unknown Rx carvediloL [Coreg] 6.25 mg PO BID #60 tablet 07/05/19 07/13/19 Unknown Rx lisinopriL [Zestril TAB] 20 mg PO QDAY #30 tablet 07/05/19 07/13/19 Unknown Rx Active Meds: Active Medications Acetaminophen (Tylenol) 650 mg FEEDTUBE Q6H PRN PRN Reason: Fever >101 Last Admin: 07/22/19 01:58 Dose: 650 mg Documented by: Albuterol (Proventil) 2.5 mg IH Q4HRT PRN PRN Reason: Shortness Of Breath Last Admin: 07/16/19 13:42 Dose: 2.5 mg Documented by: Lipase/Protease/Amylase (Pancrenarinder Dr 10,500 Unit) 1 each FEEDTUBE PRN PRN PRN Reason: For Clogged Feeding Tube Epoetin Barney (Procrit) 10,000 unit IV CHEMA PRN PRN Reason: DIALYSIS Last Admin: 07/18/19 22:04 Dose: 10,000 unit Documented by: Fentanyl (Sublimaze) 25 mcg IV Q2HR PRN PRN Reason: Pain, Moderate (4-6) Glycopyrrolate (Robinul) 0.2 mg IV Q6H TERRELL Haloperidol Lactate (Haldol) 5 mg IV Q1H PRN PRN Reason: Unrespon. to mult. doses BZD's Last Admin: 07/24/19 12:00 Dose: 5 mg Documented by: Hydralazine HCl (Apresoline) 10 mg IV Q4HR PRN PRN Reason: BP >160/100 Last Admin: 07/27/19 02:24 Dose: 10 mg Documented by: Sodium Chloride (Nacl 0.9%) 100 mls @ 999 mls/hr IV CHEMA PRN PRN Reason: Hypotension Dextrose (D5w) 1,000 mls @ 42 mls/hr IV DIRECT [facility] Last Admin: 07/27/19 02:25 Dose: 42 mls/hr Documented by: Lansoprazole (Prevacid Solutab) 30 mg FEEDTUBE QDAY [facility] Last Admin: 07/27/19 09:20 Dose: 30 mg Documented by: Lorazepam (Ativan) 1 mg IV Q2H PRN PRN Reason: Agitation Scopolamine (Transderm-Scop) 1 each TD Q3D [facility] Last Admin: 07/26/19 12:34 Dose: 1 each Documented by: Simple Syrup (Simple Syrup) 15 ml FEEDTUBE PRN PRN PRN Reason: Hypoglycemia Simple Syrup (Simple Syrup) 30 ml FEEDTUBE PRN PRN PRN Reason: Hypoglycemia Sodium Bicarbonate (Sodium Bicarbonate) 325 mg FEEDTUBE PRN PRN PRN Reason: For Clogged Feeding Tube Thiamine HCl (Vitamin B-1) 100 mg PO QDAY [facility] Last Admin: 07/27/19 09:20 Dose: 100 mg Documented by: Valsartan (Diovan) 80 mg PO BID [facility] Review of Systems ROS unobtainable: due to endotracheal tube, due to mental status Exam Vital Signs Pulse 125 H 07/12/19 14:35 Narrative exam: General: Intubated, responds minimally to painful stimuli, does not follow commands. No apparent distress ENT: ET tube and NG tube in place. Trachea midline. No lymphadenopathy CV: S1, S2 present Respiratory: Clear to auscultation bilaterally. No wheezes, rales, rhonchi Abdomen: Soft, nontender, nondistended. There is umbilical and supraumbilical ventral hernia which is soft, easily reducible. Ext: no c/c/e Results - Labs 07/25/19 04:05 07/27/19 05:55 Abnormal lab results 07/23/19 07/27/19 07/27/19 Range/Units 05:30 01:17 05:55 Sodium 147 H (137-145) mmol/L Chloride 109.6 H (98-107) mmol/L BUN 43 H (9-20) mg/dL Glucose 113 H (75-100) mg/dL POC Glucose 122 H (70-105) Serum Total Protein 5.9 L (6.1-8.1) g/dL Albumin 2.2 L (3.8-4.8) g/dL Wcehl-1-[id number] 0.5 H (0.2-0.3) g/dL Gamma Globulins 2.0 H (0.8-1.7) g/dL PEP Interpretation see below H Diabetes panel 07/23/19 07/27/19 Range/Units 05:30 05:55 Sodium 147 H (137-145) mmol/L Potassium 3.9 (3.6-5.0) mmol/L Chloride 109.6 H (98-107) mmol/L Carbon Dioxide 25 (22-30) mmol/L BUN 43 H (9-20) mg/dL Creatinine 1.2 (0.8-1.5) mg/dL Glucose 113 H (75-100) mg/dL Calcium 9.2 (8.4-10.2) mg/dL Albumin 2.2 L (3.8-4.8) g/dL Calcium panel 07/23/19 07/27/19 Range/Units 05:30 05:55 Calcium 9.2 (8.4-10.2) mg/dL Albumin 2.2 L (3.8-4.8) g/dL Pituitary panel 07/27/19 Range/Units 05:55 Sodium 147 H (137-145) mmol/L Potassium 3.9 (3.6-5.0) mmol/L Chloride 109.6 H (98-107) mmol/L Carbon Dioxide 25 (22-30) mmol/L BUN 43 H (9-20) mg/dL Creatinine 1.2 (0.8-1.5) mg/dL Glucose 113 H (75-100) mg/dL Calcium 9.2 (8.4-10.2) mg/dL Adrenal panel 07/23/19 07/27/19 Range/Units 05:30 05:55 Sodium 147 H (137-145) mmol/L Potassium 3.9 (3.6-5.0) mmol/L Chloride 109.6 H (98-107) mmol/L Carbon Dioxide 25 (22-30) mmol/L BUN 43 H (9-20) mg/dL Creatinine 1.2 (0.8-1.5) mg/dL Glucose 113 H (75-100) mg/dL Calcium 9.2 (8.4-10.2) mg/dL Albumin 2.2 L (3.8-4.8) g/dL - Imaging Chest x-ray: report reviewed, image reviewed Assessment and Plan 48 yo M with VDRF Plan: 1. Pt is a candidate for tracheostomy and PEG tube. I spoke with his father, Alfred Carreon and explained the procedures, risks, benefits, alternatives. All questions answered and consent obtained. Will work on scheduling procedures this week. 2. continue vent management per ICU team 3. continue TF- patient tolerating 4. DVT ppx Thank you, please call with questions.
[2019-07-27] MEDS: GLYCOPYRROLATE 0.4 MG/2 ML INJ IV SCH ×2 (16:00→22:06)
--- NOTE | 2019-07-27 18:46 | XRay Report ---
SPINE ABDOMEN 07/27/2019 INDICATION / CLINICAL INFORMATION: NGT placement. COMPARISON: None available. FINDINGS: The nasogastric tube is positioned in the mid stomach. Signer Name: Elieser Reyes MD Signed: 07/27/2019 6:41 PM Workstation Name: [id number]
[2019-07-28] MEDS: DEXTROSE 5% IN WATER 1,000 ML IV SCH (03:00)
[2019-07-28] MEDS: GLYCOPYRROLATE 0.4 MG/2 ML INJ IV SCH ×4 (04:00→21:10)
[2019-07-28] MEDS: ACETAMINOPHEN 325 MG/10.15 ML ORAL LIQD UNIT DOSE FEEDTUBE PRN ×3 (04:10→21:09)
[2019-07-28 08:41] LABS: BUN/Creatinine Ratio 29; Blood Urea Nitrogen 35 mg/dL (9-20); Calcium 8.8 mg/dL (8.4-10.2); Hemolysis Index 84
[2019-07-28] MEDS: THIAMINE 100 MG TAB PO SCH (09:12)
[2019-07-28] MEDS: ASPIRIN 81 MG TAB CHEW FEEDTUBE SCH (09:12)
[2019-07-28] MEDS: LANSOPRAZOLE 30 MG SOLUTAB FEEDTUBE SCH (09:12)
[2019-07-28] MEDS: VALSARTAN 40 MG TAB PO SCH ×2 (09:13→21:10)
[2019-07-28] MEDS: LORazepam 2 MG/ML VIAL IV PRN (09:42)
--- NOTE | 2019-07-28 10:06 | Vascular Lab Report ---
"DUPLEX DOPPLER ULTRASOUND CAROTID, BILATERAL INDICATION: cva. COMPARISON: None available. FINDINGS: RIGHT CAROTID: No significant atherosclerotic plaque. CCA velocity: 100 cm/sec. ICA peak systolic velocity: 83 cm/sec. ICA/CCA PSV Ratio: 0.8. Right Vertebral Artery: Antegrade flow. LEFT CAROTID: No significant atherosclerotic plaque. CCA velocity: 105 cm/sec. ICA peak systolic velocity: 89 cm/sec. ICA/CCA PSV Ratio: 0.9. Left Vertebral Artery: Antegrade flow. IMPRESSION: 1. Right Internal Carotid Artery: Less than 50% diameter stenosis. 2. Left Internal Carotid Artery: Less than 50% diameter stenosis. Velocity criteria are extrapolated from diameter data as defined by the Society of Radiologists in Ul trasound Consensus Conference, Radiology 2003; 229;340-346. Degree of || ICA PSV || Plaque || ICA/CCA Stenosis (%) || (cm/sec) || estimate (%) || PSV Ratio - Normal...............<125..............None.................<2.0 - <50....................<125..............<50....................<2.0 - 50-69................125-230.........>50....................2.0-4.0 - >70 but <100....>230..............>50....................>4.0 - Near...................High, low, .....visible................variable occlusion or none - Total...................None.............visible;................N/A occlusion no lumen Signer Name: Severo Alarcon MD Signed: 07/28/2019 10:01 AM Workstation Name: [id number]"
--- NOTE | 2019-07-28 10:48 | Progress Note ---
Subjective Date of service: 07/28/19 Principal diagnosis: post anoxic brain injury Objective Vital Signs - 12hr 07/27/19 07/28/19 07/28/19 23:00 00:00 00:35 Temperature 100.9 F H Pulse Rate 110 H 109 H 112 H Pulse Rate [ 109 H From Monitor] Respiratory 25 H 26 H Rate Blood Pressure 144/77 141/74 144/76 O2 Sat by Pulse 98 96 99 Oximetry 07/28/19 07/28/19 07/28/19 01:00 02:00 03:00 Temperature Pulse Rate 122 H 119 H 109 H Pulse Rate [ From Monitor] Respiratory 24 16 18 Rate Blood Pressure 160/87 158/86 146/80 O2 Sat by Pulse 96 98 99 Oximetry 07/28/19 07/28/19 07/28/19 04:00 05:00 05:46 Temperature 101.8 F H Pulse Rate 106 H 126 H 100 H Pulse Rate [ 103 H From Monitor] Respiratory 36 H 16 Rate Blood Pressure 146/81 150/75 132/78 O2 Sat by Pulse 99 99 99 Oximetry 07/28/19 07/28/19 07/28/19 05:51 06:00 07:00 Temperature 100.3 F H Pulse Rate 104 H 95 H Pulse Rate [ From Monitor] Respiratory 23 16 Rate Blood Pressure 129/70 125/66 O2 Sat by Pulse 97 97 Oximetry 07/28/19 07/28/19 08:00 09:13 Temperature 100.5 F H Pulse Rate 101 H 105 H Pulse Rate [ 97 H From Monitor] Respiratory 24 Rate Blood Pressure 134/76 155/100 O2 Sat by Pulse 96 Oximetry Constitutional: no acute distress, comatose Eyes: non-icteric ENT: other (orally intubated not on sedation) Neck: supple Effort: normal Ascultation: Bilateral: clear Gastrointestinal: normoactive bowel sounds Integumentary: normal CBC and BMP: 07/25/19 04:05 07/28/19 08:06 ABG, PT/INR, D-dimer: ABG ABG pH 7.457 pH Units (7.350-7.450) H 07/25/19 05:27 ABG pCO2 39.4 mm Hg 07/25/19 05:27 ABG pO2 75.5 mm Hg (80.0-90.0) L 07/25/19 05:27 ABG O2 Saturation 97.1 % (95.0-99.0) 07/25/19 05:27 PT/INR, D-dimer PT 19.8 Sec. (12.2-14.9) H 07/12/19 15:08 INR 1.65 (0.87-1.13) H 07/12/19 15:08 Abnormal lab findings: Abnormal Labs 07/12/19 07/12/19 07/12/19 14:46 15:08 15:08 WBC 14.7 H RBC 2.97 L Hgb 9.7 L Hct 29.0 L MCV 98 H MCH 33 H RDW 19.8 H Plt Count 124 L Seg Neuts % (Manual) 91.0 H Lymphocytes % (Manual) 2.0 L Monocytes % (Manual) Nucleated RBC % 1.0 H Seg Neutrophils # Man 13.4 H Lymphocytes # (Manual) 0.3 L Monocytes # (Manual) PT 19.8 H INR 1.65 H APTT 47.8 H ABG pH ABG pO2 ABG HCO3 ABG O2 Saturation ABG Base Excess ABG Hemoglobin Oxyhemoglobin Sodium Potassium Chloride Carbon Dioxide BUN Creatinine Glucose POC Glucose 110 H Calcium Phosphorus Magnesium Iron TIBC Ferritin Total Bilirubin Direct Bilirubin AST Alkaline Phosphatase Lactate Dehydrogenase Troponin T NT-Pro-B Natriuret Pep Serum Total Protein Total Protein Albumin Hvtau-1-Wddpbwmok Gamma Globulins PEP Interpretation LDL Cholesterol Direct Vitamin B12 Folate Urine WBC (Auto) Urine Creatinine Urine Total Protein Fluid Glucose Fluid Total Protein 07/12/19 07/12/19 07/12/19 15:08 15:08 15:08 WBC RBC Hgb Hct MCV MCH RDW Plt Count Seg Neuts % (Manual) Lymphocytes % (Manual) Monocytes % (Manual) Nucleated RBC % Seg Neutrophils # Man Lymphocytes # (Manual) Monocytes # (Manual) PT INR APTT ABG pH ABG pO2 ABG HCO3 ABG O2 Saturation ABG Base Excess ABG Hemoglobin Oxyhemoglobin Sodium 125 L Potassium 5.5 H Chloride 84.9 L Carbon Dioxide 13 L BUN 70 H Creatinine 8.8 H Glucose POC Glucose Calcium 8.0 L Phosphorus Magnesium 1.30 L Iron TIBC Ferritin Total Bilirubin 1.30 H Direct Bilirubin 0.9 H AST 53 H Alkaline Phosphatase 208 H Lactate Dehydrogenase Troponin T 0.192 H* NT-Pro-B Natriuret Pep > 22773 H Serum Total Protein Total Protein Albumin 3.3 L Bddcx-7-Xoododrko Gamma Globulins PEP Interpretation LDL Cholesterol Direct 40 L Vitamin B12 Folate Urine WBC (Auto) Urine Creatinine Urine Total Protein Fluid Glucose Fluid Total Protein 07/12/19 07/13/19 07/13/19 17:04 01:32 01:32 WBC RBC Hgb Hct MCV MCH RDW Plt Count Seg Neuts % (Manual) Lymphocytes % (Manual) Monocytes % (Manual) Nucleated RBC % Seg Neutrophils # Man Lymphocytes # (Manual) Monocytes # (Manual) PT INR APTT ABG pH ABG pO2 ABG HCO3 ABG O2 Saturation ABG Base Excess ABG Hemoglobin Oxyhemoglobin Sodium 133 L D Potassium 5.3 H Chloride 90.8 L Carbon Dioxide 20 L D BUN 48 H Creatinine 6.2 H Glucose 105 H POC Glucose Calcium 8.2 L Phosphorus 4.90 H Magnesium 1.50 L Iron TIBC Ferritin Total Bilirubin Direct Bilirubin AST Alkaline Phosphatase Lactate Dehydrogenase Troponin T 0.188 H* NT-Pro-B Natriuret Pep Serum Total Protein Total Protein Albumin Tpfqq-3-Rvmmlznaf Gamma Globulins PEP Interpretation LDL Cholesterol Direct Vitamin B12 Folate Urine WBC (Auto) Urine Creatinine Urine Total Protein Fluid Glucose Fluid Total Protein 07/13/19 07/13/19 07/13/19 04:28 04:28 16:16 WBC 15.9 H RBC 3.10 L Hgb 10.2 L Hct 30.6 L MCV 99 H MCH 33 H RDW 19.4 H Plt Count 135 L Seg Neuts % (Manual) Lymphocytes % (Manual) 4.0 L Monocytes % (Manual) Nucleated RBC % Seg Neutrophils # Man 9.9 H Lymphocytes # (Manual) 0.6 L Monocytes # (Manual) PT INR APTT ABG pH ABG pO2 ABG HCO3 ABG O2 Saturation ABG Base Excess ABG Hemoglobin Oxyhemoglobin Sodium 132 L 134 L Potassium 5.1 H Chloride 90.3 L 92.2 L Carbon Dioxide 17 L 20 L BUN 47 H 55 H Creatinine 6.0 H 6.5 H Glucose 124 H POC Glucose Calcium 8.2 L 7.9 L Phosphorus Magnesium Iron TIBC Ferritin Total Bilirubin Direct Bilirubin AST Alkaline Phosphatase Lactate Dehydrogenase Troponin T NT-Pro-B Natriuret Pep Serum Total Protein Total Protein Albumin Bjehz-2-Odljvjklj Gamma Globulins PEP Interpretation LDL Cholesterol Direct Vitamin B12 Folate Urine WBC (Auto) Urine Creatinine Urine Total Protein Fluid Glucose Fluid Total Protein 07/14/19 07/14/19 07/14/19 07:16 07:16 07:16 WBC RBC 2.65 L Hgb 8.6 L Hct 25.4 L MCV 96 H MCH 33 H RDW 19.7 H Plt Count 114 L Seg Neuts % (Manual) 89.0 H Lymphocytes % (Manual) 4.0 L Monocytes % (Manual) Nucleated RBC % Seg Neutrophils # Man Lymphocytes # (Manual) 0.3 L Monocytes # (Manual) PT INR APTT ABG pH ABG pO2 ABG HCO3 ABG O2 Saturation ABG Base Excess ABG Hemoglobin Oxyhemoglobin Sodium 133 L Potassium Chloride 93.0 L Carbon Dioxide 18 L BUN 61 H Creatinine 7.3 H Glucose 113 H POC Glucose Calcium 7.7 L Phosphorus Magnesium Iron TIBC Ferritin Total Bilirubin Direct Bilirubin AST Alkaline Phosphatase Lactate Dehydrogenase 210 H Troponin T NT-Pro-B Natriuret Pep Serum Total Protein Total Protein Albumin Ynnxj-6-Qavlplexy Gamma Globulins PEP Interpretation LDL Cholesterol Direct Vitamin B12 Folate Urine WBC (Auto) Urine Creatinine Urine Total Protein Fluid Glucose Fluid Total Protein 07/14/19 07/14/19 07/14/19 10:45 16:40 17:28 WBC RBC Hgb Hct MCV MCH RDW Plt Count Seg Neuts % (Manual) Lymphocytes % (Manual) Monocytes % (Manual) Nucleated RBC % Seg Neutrophils # Man Lymphocytes # (Manual) Monocytes # (Manual) PT INR APTT ABG pH ABG pO2 ABG HCO3 ABG O2 Saturation ABG Base Excess ABG Hemoglobin Oxyhemoglobin Sodium Potassium Chloride Carbon Dioxide BUN Creatinine Glucose POC Glucose Calcium Phosphorus Magnesium Iron TIBC Ferritin Total Bilirubin Direct Bilirubin AST Alkaline Phosphatase Lactate Dehydrogenase Troponin T NT-Pro-B Natriuret Pep Serum Total Protein Total Protein Albumin Apujq-7-Teewacftb Gamma Globulins PEP Interpretation LDL Cholesterol Direct Vitamin B12 Folate Urine WBC (Auto) Urine Creatinine 104.2 H 106.2 H Urine Total Protein 173 H Fluid Glucose 93 H Fluid Total Protein 4.7 L 07/14/19 07/14/19 07/15/19 17:28 20:43 06:30 WBC RBC 3.06 L Hgb 9.9 L Hct 29.7 L MCV 97 H MCH 33 H RDW 19.5 H Plt Count 101 L Seg Neuts % (Manual) Lymphocytes % (Manual) Monocytes % (Manual) Nucleated RBC % Seg Neutrophils # Man Lymphocytes # (Manual) Monocytes # (Manual) PT INR APTT ABG pH ABG pO2 ABG HCO3 ABG O2 Saturation ABG Base Excess ABG Hemoglobin Oxyhemoglobin Sodium Potassium Chloride Carbon Dioxide BUN Creatinine Glucose POC Glucose 120 H Calcium Phosphorus Magnesium Iron TIBC Ferritin Total Bilirubin Direct Bilirubin AST Alkaline Phosphatase Lactate Dehydrogenase Troponin T NT-Pro-B Natriuret Pep Serum Total Protein Total Protein Albumin Pyxto-8-Qpqqoldyd Gamma Globulins PEP Interpretation LDL Cholesterol Direct Vitamin B12 Folate Urine WBC (Auto) 31.0 H Urine Creatinine Urine Total Protein Fluid Glucose Fluid Total Protein 07/15/19 07/15/19 07/15/19 06:30 06:30 06:30 WBC RBC Hgb Hct MCV MCH RDW Plt Count Seg Neuts % (Manual) Lymphocytes % (Manual) Monocytes % (Manual) Nucleated RBC % Seg Neutrophils # Man Lymphocytes # (Manual) Monocytes # (Manual) PT INR APTT ABG pH ABG pO2 ABG HCO3 ABG O2 Saturation ABG Base Excess ABG Hemoglobin Oxyhemoglobin Sodium Potassium Chloride 95.2 L Carbon Dioxide BUN 42 H Creatinine 4.9 H Glucose POC Glucose Calcium Phosphorus Magnesium Iron 15 L TIBC 186 L Ferritin 428.2 H Total Bilirubin Direct Bilirubin AST 50 H Alkaline Phosphatase 191 H Lactate Dehydrogenase Troponin T NT-Pro-B Natriuret Pep Serum Total Protein Total Protein Albumin 3.1 L Wwpnz-5-Bqkcyvddc Gamma Globulins PEP Interpretation LDL Cholesterol Direct Vitamin B12 Folate Urine WBC (Auto) Urine Creatinine Urine Total Protein Fluid Glucose Fluid Total Protein 07/15/19 07/16/19 07/16/19 12:42 06:19 21:34 WBC RBC Hgb Hct MCV MCH RDW Plt Count Seg Neuts % (Manual) Lymphocytes % (Manual) Monocytes % (Manual) Nucleated RBC % Seg Neutrophils # Man Lymphocytes # (Manual) Monocytes # (Manual) PT INR APTT ABG pH ABG pO2 ABG HCO3 ABG O2 Saturation ABG Base Excess ABG Hemoglobin Oxyhemoglobin Sodium 134 L 134 L Potassium Chloride 92.9 L 93.4 L Carbon Dioxide 20 L BUN 55 H 40 H Creatinine 5.6 H 4.4 H Glucose POC Glucose 140 H Calcium Phosphorus Magnesium Iron TIBC Ferritin Total Bilirubin Direct Bilirubin AST Alkaline Phosphatase Lactate Dehydrogenase Troponin T NT-Pro-B Natriuret Pep Serum Total Protein Total Protein Albumin Xqvzp-5-Aypezmpty Gamma Globulins PEP Interpretation LDL Cholesterol Direct Vitamin B12 Folate Urine WBC (Auto) Urine Creatinine Urine Total Protein Fluid Glucose Fluid Total Protein 07/17/19 07/17/19 07/17/19 05:27 12:10 12:52 WBC RBC Hgb Hct MCV MCH RDW Plt Count Seg Neuts % (Manual) Lymphocytes % (Manual) Monocytes % (Manual) Nucleated RBC % Seg Neutrophils # Man Lymphocytes # (Manual) Monocytes # (Manual) PT INR APTT ABG pH ABG pO2 ABG HCO3 ABG O2 Saturation ABG Base Excess ABG Hemoglobin Oxyhemoglobin Sodium 136 L Potassium Chloride 93.6 L Carbon Dioxide BUN 43 H Creatinine 4.8 H Glucose POC Glucose 122 H 122 H Calcium Phosphorus Magnesium Iron TIBC Ferritin Total Bilirubin Direct Bilirubin AST Alkaline Phosphatase Lactate Dehydrogenase Troponin T NT-Pro-B Natriuret Pep Serum Total Protein Total Protein Albumin Iumbd-8-Cxqnjdmkt Gamma Globulins PEP Interpretation LDL Cholesterol Direct Vitamin B12 Folate Urine WBC (Auto) Urine Creatinine Urine Total Protein Fluid Glucose Fluid Total Protein 07/17/19 07/18/19 07/18/19 13:50 04:20 05:40 WBC RBC Hgb Hct MCV MCH RDW Plt Count Seg Neuts % (Manual) Lymphocytes % (Manual) Monocytes % (Manual) Nucleated RBC % Seg Neutrophils # Man Lymphocytes # (Manual) Monocytes # (Manual) PT INR APTT ABG pH 7.262 L ABG pO2 195.5 H 238.9 H ABG HCO3 ABG O2 Saturation 99.1 H 99.4 H ABG Base Excess -2.9 L ABG Hemoglobin 8.6 L 10.9 L Oxyhemoglobin Sodium Potassium Chloride 94.5 L Carbon Dioxide BUN 61 H Creatinine 5.6 H Glucose 111 H POC Glucose Calcium Phosphorus 4.70 H Magnesium Iron TIBC Ferritin Total Bilirubin Direct Bilirubin AST Alkaline Phosphatase Lactate Dehydrogenase 294 H Troponin T NT-Pro-B Natriuret Pep Serum Total Protein Total Protein Albumin Wsqly-9-Ugjeitevz Gamma Globulins PEP Interpretation LDL Cholesterol Direct Vitamin B12 Folate Urine WBC (Auto) Urine Creatinine Urine Total Protein Fluid Glucose Fluid Total Protein 07/18/19 07/18/19 07/18/19 05:40 05:40 10:30 WBC 22.7 H RBC 2.64 L Hgb 8.2 L Hct 24.9 L MCV 95 H MCH RDW 19.7 H Plt Count 94 L Seg Neuts % (Manual) Lymphocytes % (Manual) Monocytes % (Manual) Nucleated RBC % Seg Neutrophils # Man Lymphocytes # (Manual) Monocytes # (Manual) PT INR APTT ABG pH 7.457 H ABG pO2 ABG HCO3 26.3 H ABG O2 Saturation ABG Base Excess ABG Hemoglobin 7.8 L Oxyhemoglobin 94.6 L Sodium Potassium Chloride Carbon Dioxide BUN Creatinine Glucose POC Glucose Calcium Phosphorus Magnesium Iron TIBC Ferritin Total Bilirubin Direct Bilirubin 0.7 H AST 94 H Alkaline Phosphatase 159 H Lactate Dehydrogenase Troponin T NT-Pro-B Natriuret Pep Serum Total Protein Total Protein 5.6 L D Albumin 2.5 L Lgpbr-7-Byakvisam Gamma Globulins PEP Interpretation LDL Cholesterol Direct Vitamin B12 Folate Urine WBC (Auto) Urine Creatinine Urine Total Protein Fluid Glucose Fluid Total Protein 07/18/19 07/19/19 07/19/19 Unknown 05:15 05:15 WBC RBC Hgb Hct MCV MCH RDW Plt Count Seg Neuts % (Manual) Lymphocytes % (Manual) Monocytes % (Manual) Nucleated RBC % Seg Neutrophils # Man Lymphocytes # (Manual) Monocytes # (Manual) PT INR APTT ABG pH ABG pO2 ABG HCO3 ABG O2 Saturation ABG Base Excess ABG Hemoglobin 11.6 L Oxyhemoglobin 94.3 L Sodium 133 L Potassium Chloride 94.9 L Carbon Dioxide BUN 43 H Creatinine 4.0 H Glucose 118 H POC Glucose Calcium Phosphorus Magnesium 0.20 L* Iron TIBC Ferritin Total Bilirubin Direct Bilirubin AST Alkaline Phosphatase Lactate Dehydrogenase Troponin T NT-Pro-B Natriuret Pep Serum Total Protein Total Protein Albumin Kjfqa-3-Amyikylun Gamma Globulins PEP Interpretation LDL Cholesterol Direct Vitamin B12 Folate Urine WBC (Auto) Urine Creatinine Urine Total Protein Fluid Glucose Fluid Total Protein 07/19/19 07/19/19 07/20/19 05:15 06:00 06:15 WBC 14.6 H RBC 2.57 L Hgb 8.2 L Hct 24.3 L MCV 95 H MCH RDW 19.5 H Plt Count 101 L Seg Neuts % (Manual) Lymphocytes % (Manual) Monocytes % (Manual) Nucleated RBC % Seg Neutrophils # Man Lymphocytes # (Manual) Monocytes # (Manual) PT INR APTT ABG pH ABG pO2 91.2 H ABG HCO3 27.5 H ABG O2 Saturation ABG Base Excess ABG Hemoglobin 8.3 L Oxyhemoglobin Sodium Potassium Chloride Carbon Dioxide BUN 61 H Creatinine 4.6 H Glucose 117 H POC Glucose Calcium Phosphorus Magnesium Iron TIBC Ferritin Total Bilirubin Direct Bilirubin AST Alkaline Phosphatase Lactate Dehydrogenase Troponin T NT-Pro-B Natriuret Pep Serum Total Protein Total Protein Albumin Risrl-6-Bkehoypce Gamma Globulins PEP Interpretation LDL Cholesterol Direct Vitamin B12 Folate Urine WBC (Auto) Urine Creatinine Urine Total Protein Fluid Glucose Fluid Total Protein 07/21/19 07/21/19 07/21/19 05:30 06:15 06:15 WBC 11.8 H RBC 2.45 L Hgb 7.9 L Hct 23.5 L MCV 96 H MCH RDW 19.4 H Plt Count Seg Neuts % (Manual) Lymphocytes % (Manual) Monocytes % (Manual) Nucleated RBC % Seg Neutrophils # Man Lymphocytes # (Manual) Monocytes # (Manual) PT INR APTT ABG pH ABG pO2 104.5 H ABG HCO3 27.9 H ABG O2 Saturation ABG Base Excess 3.3 H ABG Hemoglobin 8.2 L Oxyhemoglobin Sodium Potassium 3.3 L Chloride Carbon Dioxide BUN 74 H Creatinine 4.3 H Glucose 127 H POC Glucose Calcium Phosphorus Magnesium Iron TIBC Ferritin Total Bilirubin Direct Bilirubin AST Alkaline Phosphatase Lactate Dehydrogenase Troponin T NT-Pro-B Natriuret Pep Serum Total Protein Total Protein Albumin Rvuie-5-Gqcjtkjft Gamma Globulins PEP Interpretation LDL Cholesterol Direct Vitamin B12 Folate Urine WBC (Auto) Urine Creatinine Urine Total Protein Fluid Glucose Fluid Total Protein 07/21/19 07/21/19 07/21/19 08:00 08:00 17:51 WBC RBC Hgb Hct MCV MCH RDW Plt Count Seg Neuts % (Manual) Lymphocytes % (Manual) Monocytes % (Manual) Nucleated RBC % Seg Neutrophils # Man Lymphocytes # (Manual) Monocytes # (Manual) PT INR APTT ABG pH ABG pO2 ABG HCO3 ABG O2 Saturation ABG Base Excess ABG Hemoglobin Oxyhemoglobin Sodium Potassium 3.2 L Chloride Carbon Dioxide BUN Creatinine Glucose POC Glucose Calcium Phosphorus Magnesium Iron TIBC Ferritin Total Bilirubin Direct Bilirubin AST Alkaline Phosphatase Lactate Dehydrogenase Troponin T NT-Pro-B Natriuret Pep Serum Total Protein Total Protein Albumin Gfyvo-3-Gqqyflsqz Gamma Globulins PEP Interpretation LDL Cholesterol Direct Vitamin B12 960.4 H Folate 6.18 L Urine WBC (Auto) Urine Creatinine Urine Total Protein Fluid Glucose Fluid Total Protein 07/22/19 07/22/19 07/22/19 03:40 06:00 21:45 WBC 12.6 H RBC 2.54 L Hgb 7.8 L Hct 24.2 L MCV 95 H MCH RDW 19.7 H Plt Count Seg Neuts % (Manual) Lymphocytes % (Manual) Monocytes % (Manual) Nucleated RBC % Seg Neutrophils # Man Lymphocytes # (Manual) Monocytes # (Manual) PT INR APTT ABG pH ABG pO2 99.4 H ABG HCO3 27.3 H ABG O2 Saturation ABG Base Excess ABG Hemoglobin 9.2 L Oxyhemoglobin Sodium Potassium 3.1 L Chloride Carbon Dioxide BUN 75 H Creatinine 2.9 H Glucose 123 H POC Glucose Calcium Phosphorus Magnesium Iron TIBC Ferritin Total Bilirubin Direct Bilirubin AST Alkaline Phosphatase Lactate Dehydrogenase Troponin T NT-Pro-B Natriuret Pep Serum Total Protein Total Protein Albumin Wxzer-1-Bmoefxldo Gamma Globulins PEP Interpretation LDL Cholesterol Direct Vitamin B12 Folate Urine WBC (Auto) Urine Creatinine Urine Total Protein Fluid Glucose Fluid Total Protein 07/23/19 07/23/19 07/24/19 05:30 05:30 04:12 WBC RBC Hgb Hct MCV MCH RDW Plt Count Seg Neuts % (Manual) Lymphocytes % (Manual) Monocytes % (Manual) Nucleated RBC % Seg Neutrophils # Man Lymphocytes # (Manual) Monocytes # (Manual) PT INR APTT ABG pH ABG pO2 123.1 H ABG HCO3 27.1 H ABG O2 Saturation ABG Base Excess ABG Hemoglobin 9.3 L Oxyhemoglobin Sodium Potassium 3.1 L Chloride Carbon Dioxide BUN 80 H Creatinine 2.6 H Glucose 112 H POC Glucose Calcium Phosphorus Magnesium Iron TIBC Ferritin Total Bilirubin Direct Bilirubin AST Alkaline Phosphatase Lactate Dehydrogenase Troponin T NT-Pro-B Natriuret Pep Serum Total Protein 5.9 L Total Protein Albumin 2.2 L Mrwpa-1-Zuledpzcd 0.5 H Gamma Globulins 2.0 H PEP Interpretation see below H LDL Cholesterol Direct Vitamin B12 Folate Urine WBC (Auto) Urine Creatinine Urine Total Protein Fluid Glucose Fluid Total Protein 07/24/19 07/24/19 07/25/19 07:03 07:03 04:05 WBC RBC Hgb Hct MCV MCH RDW Plt Count Seg Neuts % (Manual) Lymphocytes % (Manual) Monocytes % (Manual) Nucleated RBC % Seg Neutrophils # Man Lymphocytes # (Manual) Monocytes # (Manual) PT INR APTT ABG pH ABG pO2 ABG HCO3 ABG O2 Saturation ABG Base Excess ABG Hemoglobin Oxyhemoglobin Sodium 147 H Potassium 3.4 L Chloride 107.5 H 110.1 H Carbon Dioxide BUN 70 H 62 H Creatinine 1.8 H Glucose 112 H 115 H POC Glucose Calcium Phosphorus Magnesium 1.50 L Iron TIBC Ferritin Total Bilirubin Direct Bilirubin AST Alkaline Phosphatase Lactate Dehydrogenase Troponin T NT-Pro-B Natriuret Pep Serum Total Protein Total Protein Albumin Gtici-2-Sjvgdlzru Gamma Globulins PEP Interpretation LDL Cholesterol Direct Vitamin B12 Folate Urine WBC (Auto) Urine Creatinine Urine Total Protein Fluid Glucose Fluid Total Protein 07/25/19 07/25/19 07/26/19 04:05 05:27 04:47 WBC 11.4 H RBC 2.39 L Hgb 7.5 L Hct 23.0 L MCV 96 H MCH RDW 19.4 H Plt Count Seg Neuts % (Manual) 76.0 H Lymphocytes % (Manual) 9.0 L Monocytes % (Manual) 11.0 H Nucleated RBC % Seg Neutrophils # Man 8.7 H Lymphocytes # (Manual) 1.0 L Monocytes # (Manual) 1.3 H PT INR APTT ABG pH 7.457 H ABG pO2 75.5 L ABG HCO3 27.2 H ABG O2 Saturation ABG Base Excess 3.1 H ABG Hemoglobin 7.0 L Oxyhemoglobin 94.4 L Sodium 147 H Potassium Chloride 111.5 H Carbon Dioxide BUN 57 H Creatinine Glucose 121 H POC Glucose Calcium Phosphorus Magnesium Iron TIBC Ferritin Total Bilirubin Direct Bilirubin AST Alkaline Phosphatase Lactate Dehydrogenase Troponin T NT-Pro-B Natriuret Pep Serum Total Protein Total Protein Albumin Yrhmh-4-Hebpbcifx Gamma Globulins PEP Interpretation LDL Cholesterol Direct Vitamin B12 Folate Urine WBC (Auto) Urine Creatinine Urine Total Protein Fluid Glucose Fluid Total Protein 07/26/19 07/27/19 07/27/19 04:47 01:17 05:55 WBC RBC Hgb Hct MCV MCH RDW Plt Count Seg Neuts % (Manual) Lymphocytes % (Manual) Monocytes % (Manual) Nucleated RBC % Seg Neutrophils # Man Lymphocytes # (Manual) Monocytes # (Manual) PT INR APTT ABG pH ABG pO2 ABG HCO3 ABG O2 Saturation ABG Base Excess ABG Hemoglobin Oxyhemoglobin Sodium 147 H Potassium Chloride 109.6 H Carbon Dioxide BUN 43 H Creatinine Glucose 113 H POC Glucose 122 H Calcium Phosphorus Magnesium 1.50 L Iron TIBC Ferritin Total Bilirubin Direct Bilirubin AST Alkaline Phosphatase Lactate Dehydrogenase Troponin T NT-Pro-B Natriuret Pep Serum Total Protein Total Protein Albumin Jvdof-6-Zazfjizgc Gamma Globulins PEP Interpretation LDL Cholesterol Direct Vitamin B12 Folate Urine WBC (Auto) Urine Creatinine Urine Total Protein Fluid Glucose Fluid Total Protein 07/28/19 08:06 WBC RBC Hgb Hct MCV MCH RDW Plt Count Seg Neuts % (Manual) Lymphocytes % (Manual) Monocytes % (Manual) Nucleated RBC % Seg Neutrophils # Man Lymphocytes # (Manual) Monocytes # (Manual) PT INR APTT ABG pH ABG pO2 ABG HCO3 ABG O2 Saturation ABG Base Excess ABG Hemoglobin Oxyhemoglobin Sodium 147 H Potassium Chloride 111.0 H Carbon Dioxide BUN 35 H Creatinine Glucose 119 H POC Glucose Calcium Phosphorus Magnesium 1.50 L Iron TIBC Ferritin Total Bilirubin Direct Bilirubin AST Alkaline Phosphatase Lactate Dehydrogenase Troponin T NT-Pro-B Natriuret Pep Serum Total Protein Total Protein Albumin Horli-9-Izcslmtrb Gamma Globulins PEP Interpretation LDL Cholesterol Direct Vitamin B12 Folate Urine WBC (Auto) Urine Creatinine Urine Total Protein Fluid Glucose Fluid Total Protein
--- NOTE | 2019-07-28 11:11 | Progress Note ---
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 Subjective Date of service: 07/28/19 Principal diagnosis: post anoxic brain injury Interval history: No interval changes. Objective Vital Signs Temp Pulse Pulse Resp BP Pulse Ox 07/28/19 09:13 105 H 155/100 07/28/19 08:00 100.5 F H 101 H 97 H 24 134/76 96 07/28/19 07:00 95 H 16 125/66 97 07/28/19 06:00 104 H 23 129/70 97 07/28/19 05:51 100.3 F H 07/28/19 05:46 100 H 132/78 99 07/28/19 05:00 126 H 16 150/75 99 07/28/19 04:00 101.8 F H 106 H 103 H 36 H 146/81 99 07/28/19 03:00 109 H 18 146/80 99 07/28/19 02:00 119 H 16 158/86 98 07/28/19 01:00 122 H 24 160/87 96 07/28/19 00:35 112 H 144/76 99 07/28/19 00:00 100.9 F H 109 H 109 H 26 H 141/74 96 07/27/19 23:00 110 H 25 H 144/77 98 07/27/19 22:30 121 H 16 145/79 98 07/27/19 22:07 109 H 146/77 07/27/19 22:00 107 H 19 148/77 97 07/27/19 21:00 112 H 16 142/83 96 07/27/19 20:45 106 H 145/82 98 07/27/19 20:00 100.9 F H 114 H 106 H 19 157/79 97 07/27/19 19:00 113 H 19 144/78 95 07/27/19 18:00 124 H 21 149/77 96 07/27/19 17:30 132 H 173/105 07/27/19 17:00 109 H 22 154/83 95 07/27/19 16:00 119 H 123 H 17 171/98 96 07/27/19 15:48 99.5 F 07/27/19 15:00 121 H 13 161/86 95 07/27/19 14:00 105 H 17 150/66 98 07/27/19 13:00 103 H 20 94/58 96 07/27/19 12:00 100.3 F H 115 H 108 H 33 H 102/63 94 07/27/19 11:31 105 H 23 102/63 97 - Physical Examination General: Other (unresponsive on the vent) Cardiac: Positive: Reg Rate and Rhythm - Labs and Meds Comprehensive Metabolic Panel 07/28/19 Range/Units 08:06 Sodium 147 H (137-145) mmol/L Potassium 4.6 (3.6-5.0) mmol/L Chloride 111.0 H (98-107) mmol/L Carbon Dioxide 24 (22-30) mmol/L BUN 35 H (9-20) mg/dL Creatinine 1.2 (0.8-1.5) mg/dL Glucose 119 H (75-100) mg/dL Calcium 8.8 (8.4-10.2) mg/dL
[2019-07-28] MEDS ORDERED: LORazepam 2 MG/ML VIAL IV ONE (11:24)
--- NOTE | 2019-07-28 11:28 | Magnetic Resonance Report ---
MRA HEAD WITHOUT CONTRAST INDICATION / CLINICAL INFORMATION: cva. TECHNIQUE: Routine MRA of the head is performed. 3-D/MIP reformats postprocessed. COMPARISON: None available. FINDINGS: MRA HEAD: Intracranial vertebral arteries: No significant abnormality. Basilar artery: No significant abnormality. Posterior cerebral arteries: No significant abnormality. Intracranial internal carotid arteries: No significant abnormality. Anterior cerebral arteries: No significant abnormality. Middle cerebral arteries: No significant abnormality. Additional findings: Pansinusitis is again noted. IMPRESSION: 1. No significant stenosis or large vessel occlusion in the intracranial arteries. Signer Name: Ronan Colbert MD Signed: 07/28/2019 11:24 AM Workstation Name: [id number]
--- NOTE | 2019-07-28 12:06 | Progress Note ---
Assessment and Plan Assessment and plan: 48-year-old man with a history of being deaf (writes to communicate) HTN, Systolic CHF(EF 20%), anxiety, depression COPD and GERD who presented to [facility] ED with severe SOB. EMS found patient to have a pulse oximetry of 80% on room air, improved to 92% on 2 L of supplemental oxygen. Patient was confused and provided limited history. Patient refused BiPAP. Patient given 40 mg of Lasix IV and and EMS gave 40mg iv lasix prior to arrival. Patient was found to have left lower lobe pneumonia, complicated by acute respiratory failure, severe Uremia, hyponatremia, hyperkalemia, metabolic acidosis. Patient admitted to medical floor for medical stabilization and treatment due to high risk for cardiopul monary and renal decompensation. Nephrology team consulted in ED for urgent dialysis. Patient initiated on pneumonia protocol with IV antibiotic therapy. Patient treated with calcium gluconate and Kayexalate for hyperkalemia in ED. EKG showed no changes. Patient mental status so poor he had to be put in restraints to prevent for pulling and removing O2. Next day, patient remained confused, so He went down for CT head and he must've removed O2 mask while in CT scanner or had a fatal cardiac arrhythmia which he was experiencing NSVT/aflutter with RVR the night before. This led to Cardiac arrest. ED physician was the first to respond and saw Asystole on the monitor, ACLS done and when I arrived he was in PEA. He was a difficult Intubation as he had bleeding in the Endotracheal area due to Eliquis which was started on 07/16/2019. He was intubated by ED physician. Pulse was restored and he was sent to the ICU, where he had another Cardiac arrest with PEA, ACLS done again and pulse meg red. Overnight he was posturing. He is comatose without any sedative. -History of deafness * pCXR showed bilateral pleural effusion with significant pulmonary congestion. EKG showed no ST elevation. * Initial Labs: WBC 14.7, hgb 9.7, plt 124, Na 125, k 5.5, co2 13, BUN 70, Cr 8.8 * MRI brain, mild diffuse volume loss and moderate chronic microangiopathy 8 mm focus of subacute ischemia is noted in the right posterior temporal white matter. Small chronic cortical infarct in the left parietal lobe measures up to 1.9 cm in diameter. * Acute on chronic systolic heart failure decompensation leading to respiratory failure: Meds optimized. Fluid was removed via dialysis, now has good urine output, improving Bilateral pneumonia; completed antibiotics on 07/25 Fever; likely central in origin, no evidence of infection currently, repeat bc, ua, cxr actually shows improved aeration Acute on chronic CHF, EF 25%. Medications optimized per cardiology, patient now appears to be improving Fluid overload, Ascites, status post paracentesis on 07/15, 3.2 L removed. Received dialysis. Acute hypoxic respiratory failure on MV > 96 hours, continue mechanical ventilator, plan for trach/peg, GS evaluating Severe ARF due to ATN, no longer needing HD. Nephrology input appreciated, has good urine output. HD cath now removed. acute metabolic encephalopathy likely anoxic enceph, , poa, thought to be due to severe Uremia, but uremia improved and he still not responsive , needing restraints for agitation CVA; noted on MRI, MRA neg, carotid dopller neg, repeat echo for bubble study, optimize medications for secondary prevention, aspirin, no statin due to low LDL, blood pressure control. As MRI shows an old stroke and a relatively new stroke. Etiology of multiple strokes is not yet identified in this patient. Awaiting bubble study. Neuro reconsulted, to see pt later today Anemia appears AOCD due to renal dysfunction: continue to monitor cbc Thrombocytopenia: Likely due to alcohol abuse, resolved Obesity, bmi 32.1: clinical counselor on lifestyle modification if patient improves Transient A. fib/a flutter on NSVT. Now resolved, no further medication or work-up required Hypokalemia; repleted Hypertensive urgency; continue to adjust BP meds Hypernatremia; continue free water via nG-tube, added small amounts of D5 water given advanced heart failure History of nonadherence, alcohol abuse, plan to clinical counselor patient if his mentation improves. Copious oral secretions, cont scopolamine, add robinul Coagulopathy; likely due to vitamin K deficiency, ordered vitamin K x3 days full code DVT ppx: Michelle Discussed the goals of care and updated his father, his brother and his father's girlfriend. Explained the very poor prognosis. They would like to have family meeting with other family members and will return to us with a plan. Explained the options of hospice and removal of right support versus trach and PEG and [place] [facility]. the family is interested in him getting trach and PEG and placeme nts. They have been advised to try to obtain insurance for him, as he will need to pay source to go to a rehab facility. -Prognosis is poor, this was conveyed to the family Advanced care planning performed for 30 minutes. Critical care time 35 minutes. History Interval history: fever t max of 100.9 No vomiting no seizure-like activity No diarrhea Continues to be agitated requiring Ativan pushes No obvious discomfort Hospitalist Physical - Physical exam Narrative exam: General.: not responsive HEENT: Moist mucous membranes, no lymphadenopathy, copious oral secretions Neck: supple Cardiac: S1-S2 heard Lungs: Rhonchorous and ventilated breath sounds. Abdomen: soft , nontender, nondistended, bowel sounds positive Extremities: no edema clubbing or cyanosis Skin: no rash or lesions Neurologic: Intubated, not responsive, has some spontaneous movements, opens eyes at times, chewing endotracheal tube at times. But does not obey commands, - Constitutional Vitals: Temp Pulse Resp BP Pulse Ox 100.5 F H 105 H 12 139/71 97 07/28/19 08:00 07/28/19 09:13 07/28/19 11:35 07/28/19 11:35 07/28/19 08:00 General appearance: Present: no acute distress Results - Labs CBC & Chem 7: 07/28/19 12:29 07/28/19 08:06 Labs: Laboratory Last Values WBC 11.4 K/mm3 (4.5-11.0) H 07/25/19 04:05 RBC 2.39 M/mm3 (3.65-5.03) L 07/25/19 04:05 Hgb 7.5 gm/dl (11.8-15.2) L 07/25/19 04:05 Hct 23.0 % (35.5-45.6) L 07/25/19 04:05 MCV 96 fl (84-94) H 07/25/19 04:05 MCH 31 pg (28-32) 07/25/19 04:05 MCHC 33 % (32-34) 07/25/19 04:05 RDW 19.4 % (13.2-15.2) H 07/25/19 04:05 Plt Count 333 K/mm3 (140-440) 07/25/19 04:05 Lymph % (Auto) Payroll Processor 07/13/19 04:28 [place] % (Auto) Payroll Processor 07/13/19 04:28 Eos % (Auto) Payroll Processor 07/13/19 04:28 Baso % (Auto) Payroll Processor 07/13/19 04:28 Lymph # Payroll Processor 07/13/19 04:28 [place] # Payroll Processor 07/13/19 04:28 Eos # Payroll Processor 07/13/19 04:28 Baso # Payroll Processor 07/13/19 04:28 Add Manual Diff Complete 07/25/19 04:05 Total Counted 100 07/25/19 04:05 Seg Neutrophils % Payroll Processor 07/13/19 04:28 Seg Neuts % (Manual) 76.0 % (40.0-70.0) H 07/25/19 04:05 Band Neutrophils % 0 % 07/25/19 04:05 Lymphocytes % (Manual) 9.0 % (13.4-35.0) L 07/25/19 04:05 Reactive Lymphs % (Man) 0 % 07/25/19 04:05 Monocytes % (Manual) 11.0 % (0.0-7.3) H 07/25/19 04:05 Eosinophils % (Manual) 2.0 % (0.0-4.3) 07/25/19 04:05 Basophils % (Manual) 0 % (0.0-1.8) 07/25/19 04:05 Metamyelocytes % 2.0 % 07/25/19 04:05 Myelocytes % 0 % 07/25/19 04:05 Promyelocytes % 0 % 07/25/19 04:05 Blast Cells % 0 % 07/25/19 04:05 Nucleated RBC % Not Reportable 07/25/19 04:05 Seg Neutrophils # Payroll Processor 07/13/19 04:28 Seg Neutrophils # Man 8.7 K/mm3 (1.8-7.7) H 07/25/19 04:05 Band Neutrophils # 0.0 K/mm3 07/25/19 04:05 Lymphocytes # (Manual) 1.0 K/mm3 (1.2-5.4) L 07/25/19 04:05 Abs React Lymphs (Man) 0.0 K/mm3 07/25/19 04:05 Monocytes # (Manual) 1.3 K/mm3 (0.0-0.8) H 07/25/19 04:05 Eosinophils # (Manual) 0.2 K/mm3 (0.0-0.4) 07/25/19 04:05 Basophils # (Manual) 0.0 K/mm3 (0.0-0.1) 07/25/19 04:05 Metamyelocytes # 0.2 K/mm3 07/25/19 04:05 Myelocytes # 0.0 K/mm3 07/25/19 04:05 Promyelocytes # 0.0 K/mm3 07/25/19 04:05 Blast Cells # 0.0 K/mm3 07/25/19 04:05 WBC Morphology Not Reportable 07/25/19 04:05 Hypersegmented Neuts Not Reportable 07/25/19 04:05 Hyposegmented Neuts Not Reportable 07/25/19 04:05 Hypogranular Neuts Not Reportable 07/25/19 04:05 Smudge Cells Not Reportable 07/25/19 04:05 Toxic Granulation Not Reportable 07/25/19 04:05 Toxic Vacuolation Not Reportable 07/25/19 04:05 Dohle Bodies Not Reportable 07/25/19 04:05 Pelger-Huet Anomaly Not Reportable 07/25/19 04:05 Mack Rods Not Reportable 07/25/19 04:05 Platelet Estimate Consistent w auto 07/25/19 04:05 Clumped Platelets Not Reportable 07/25/19 04:05 Plt Clumps, EDTA Not Reportable 07/25/19 04:05 Large Platelets Not Reportable 07/25/19 04:05 Giant Platelets Not Reportable 07/25/19 04:05 Platelet Satelliting Not Reportable 07/25/19 04:05 Plt Morphology Comment Not Reportable 07/25/19 04:05 RBC Morphology Not Reportable 07/25/19 04:05 Dimorphic RBCs Not Reportable 07/25/19 04:05 Polychromasia Not Reportable 07/25/19 04:05 Hypochromasia 1+ 07/25/19 04:05 Poikilocytosis Not Reportable 07/25/19 04:05 Anisocytosis Few 07/25/19 04:05 Microcytosis Not Reportable 07/25/19 04:05 Macrocytosis Not Reportable 07/25/19 04:05 Spherocytes Not Reportable 07/25/19 04:05 Pappenheimer Bodies Not Reportable 07/25/19 04:05 Sickle Cells Not Reportable 07/25/19 04:05 Target Cells Not Reportable 07/25/19 04:05 Tear Drop Cells Not Reportable 07/25/19 04:05 Ovalocytes Not Reportable 07/25/19 04:05 Helmet Cells Not Reportable 07/25/19 04:05 [place] Bodies Not Reportable 07/25/19 04:05 [place] Rings Not Reportable 07/25/19 04:05 Yolis Cells Not Reportable 07/25/19 04:05 Bite Cells Not Reportable 07/25/19 04:05 Crenated Cell Not Reportable 07/25/19 04:05 Elliptocytes Not Reportable 07/25/19 04:05 Acanthocytes (Spur) Not Reportable 07/25/19 04:05 Rouleaux Not Reportable 07/25/19 04:05 Hemoglobin C Crystals Not Reportable 07/25/19 04:05 Schistocytes Rare 07/25/19 04:05 Malaria parasites Not Reportable 07/25/19 04:05 Víctor Bodies Not Reportable 07/25/19 04:05 Hem Pathologist Commnt No 07/25/19 04:05 PT 19.8 Sec. (12.2-14.9) H 07/12/19 15:08 INR 1.65 (0.87-1.13) H 07/12/19 15:08 APTT 47.8 Sec. (24.2-36.6) H 07/12/19 15:08 ABG pH 7.457 pH Units (7.350-7.450) H 07/25/19 05:27 ABG pCO2 39.4 mm Hg 07/25/19 05:27 ABG pO2 75.5 mm Hg (80.0-90.0) L 07/25/19 05:27 ABG HCO3 27.2 mmol/L (20.0-26.0) H 07/25/19 05:27 ABG O2 Saturation 97.1 % (95.0-99.0) 07/25/19 05:27 ABG O2 Content 9.4 (0.0-44) 07/25/19 05:27 ABG Base Excess 3.1 mmol/L (-2.0-3.0) H 07/25/19 05:27 ABG Hemoglobin 7.0 gm/dl (14.0-18.0) L 07/25/19 05:27 ABG Carboxyhemoglobin 2.2 % (0.0-5.0) 07/25/19 05:27 ABG Methemoglobin 0.5 % (0.0-1.5) 07/25/19 05:27 Oxyhemoglobin 94.4 % (95.0-99.0) L 07/25/19 05:27 FiO2 30 % 07/25/19 05:27 Sodium 147 mmol/L (137-145) H 07/28/19 08:06 Potassium 4.6 mmol/L (3.6-5.0) 07/28/19 08:06 Chloride 111.0 mmol/L (98-107) H 07/28/19 08:06 Carbon Dioxide 24 mmol/L (22-30) 07/28/19 08:06 Anion Gap 17 mmol/L 07/28/19 08:06 BUN 35 mg/dL (9-20) H 07/28/19 08:06 Creatinine 1.2 mg/dL (0.8-1.5) 07/28/19 08:06 Estimated GFR > 60 ml/min 07/28/19 08:06 BUN/Creatinine Ratio 29 % 07/28/19 08:06 Glucose 119 mg/dL (75-100) H 07/28/19 08:06 POC Glucose 122 (70-105) H 07/27/19 01:17 Calcium 8.8 mg/dL (8.4-10.2) 07/28/19 08:06 Phosphorus 2.70 mg/dL (2.5-4.5) 07/24/19 07:03 Magnesium 1.50 mg/dL (1.7-2.3) L 07/28/19 08:06 Iron 15 ug/dL (49-181) L 07/15/19 06:30 TIBC 186 mcg/dL (250-450) L 07/15/19 06:30 Ferritin 428.2 ng/mL (13.0-400.0) H 07/15/19 06:30 Total Bilirubin 1.10 mg/dL (0.1-1.2) 07/18/19 05:40 Direct Bilirubin 0.7 mg/dL (0-0.2) H 07/18/19 05:40 Indirect Bilirubin 0.4 mg/dL 07/18/19 05:40 AST 94 units/L (5-40) H 07/18/19 05:40 ALT 16 units/L (7-56) 07/18/19 05:40 Alkaline Phosphatase 159 units/L (35-129) H 07/18/19 05:40 Lactate Dehydrogenase 294 units/L (91-180) H 07/18/19 05:40 Total Creatine Kinase 59 units/L (55-170) 07/14/19 07:16 Troponin T 0.188 ng/mL (0.00-0.029) H* 07/12/19 17:04 NT-Pro-B Natriuret Pep > 52485 pg/mL (0-450) H 07/12/19 15:08 Serum Total Protein 5.9 g/dL (6.1-8.1) L 07/23/19 05:30 Total Protein 5.6 g/dL (6.3-8.2) L D 07/18/19 05:40 Albumin 2.2 g/dL (3.8-4.8) L 07/23/19 05:30 Albumin/Globulin Ratio 0.8 % 07/18/19 05:40 Nhzsx-6-Rbaprhbcb 0.5 g/dL (0.2-0.3) H 07/23/19 05:30 Ysstf-3-Moxqrhvvc 0.5 g/dL (0.5-0.9) 07/23/19 05:30 Beta Globulins 0.4 g/dL (0.2-0.5) 07/23/19 05:30 Gamma Globulins 2.0 g/dL (0.8-1.7) H 07/23/19 05:30 Abnorm Protein Band 1 see below 07/23/19 05:30 PEP Interpretation see below H 07/23/19 05:30 Triglycerides 128 mg/dL (2-149) 07/12/19 15:08 Cholesterol 121 mg/dL (50-199) 07/12/19 15:08 LDL Cholesterol Direct 40 mg/dL (50-130) L 07/12/19 15:08 HDL Cholesterol 44 mg/dL (40-59) 07/12/19 15:08 Cholesterol/HDL Ratio 2.75 % 07/12/19 15:08 Vitamin B12 960.4 pg/mL (211-911) H 07/21/19 08:00 Folate 6.18 ng/mL (7.3-26.0) L 07/21/19 08:00 Procalcitonin 8.19 ng/mL (<0.15) 07/23/19 05:30 Urine Color Eugenia (Yellow) 07/14/19 17:28 Urine Turbidity Slightly-cloudy (Clear) 07/14/19 17:28 Urine pH 5.0 (5.0-7.0) 07/14/19 17:28 Ur Specific Clarence 1.014 (1.003-1.030) 07/14/19 17: Urine Protein 100 mg/dl mg/dL (Negative) 07/14/19 17:28 Urine Glucose (UA) Neg mg/dL (Negative) 07/14/19 17: Urine Ketones Neg mg/dL (Negative) 07/14/19 17:28 Urine Blood Sm (Negative) 07/14/19 17:28 Urine Nitrite Neg (Negative) 07/14/19 17:28 Urine Bilirubin Neg (Negative) 07/14/19 17:28 Urine Urobilinogen < 2.0 mg/dL (<2.0) 07/14/19 17:28 Ur Leukocyte Esterase Neg (Negative) 07/14/19 17:28 Urine WBC (Auto) 31.0 /HPF (0.0-6.0) H 07/14/19 17:28 Urine RBC (Auto) 3.0 /HPF (0.0-6.0) 07/14/19 17:28 U Epithel Cells (Auto) < 1.0 /HPF (0-13.0) 07/14/19 17:28 Urine Bacteria (Auto) 1+ /HPF (Negative) 07/14/19 17:28 Urine Mucus Few /HPF 07/14/19 17:28 Urine Yeast (Budding) Few /HPF 07/14/19 17:28 Urine Eosinophils Rare seen (None Seen) 07/14/19 17:28 Urine Creatinine 106.2 mg/dL (0.1-20.0) H 07/14/19 17:28 Protein/Creatinin Ratio 1.66 07/14/19 16:40 Urine Sodium 67 mmol/L 07/14/19 17:28 Urine Urea Nitrogen 100 07/14/19 17:28 Urine Total Protein 173 mg/dL (5-11.8) H 07/14/19 16:40 Fluid Type Paracentesis 07/14/19 10:45 Fluid Color Bloody 07/14/19 10:45 Fluid Appearance Bloody 07/14/19 10:45 Fluid WBC 120 /mm3 07/14/19 10:45 Fluid RBC 07118 /mm3 07/14/19 10:45 Fluid Seg Neutrophils 33.0 % 07/14/19 10:45 Fluid Lymphocytes 17.0 % 07/14/19 10:45 Fluid Reactive Lymphs 0 % 07/14/19 10:45 Fluid Monocytes 50.0 % 07/14/19 10:45 Fluid Eosinophils 0 % 07/14/19 10:45 Fluid Basophils 0 % 07/14/19 10:45 Fluid Glucose 93 mg/dL (40-70) H 07/14/19 10:45 Fluid Total Protein 4.7 (15.0-45.0) L 07/14/19 10:45 Fluid LDH 07/14/19 10:45 Random Vancomycin 14.5 ug/mL (0-40.0) 07/19/19 05:15 SHANNA Screen Negative (Negative) 07/14/19 11:50 Proteinase 3 (PR3) Ab <1.0 AI (<1.0) 07/14/19 11:50 Myeloperoxidase Ab <1.0 AI (<1.0) 07/14/19 11:50 Glomerular Base Mem IgG See scanned result 07/14/19 11:50 Complement C3 124 mg/dL (82-185) 07/14/19 11:50 Complement C4 28 mg/dL (15-53) 07/14/19 11:50 Hepatitis A IgM Ab Non-reactive (NonReactive) 07/12/19 17:49 Hep Bs Antigen Non-reactive (Negative) 07/14/19 11:50 Hep B Core IgM Ab Non-reactive (NonReactive) 07/12/19 17:49 Hepatitis C Antibody Non-reactive (NonReactive) 07/14/19 11:50 HIV-1 Antibody See scanned result 07/14/19 11:50 HIV-2 Ab (Immunoblot) See scanned result 07/14/19 11:50 Schistocytes Smear Rare 07/18/19 05:40 Active Medications - Current Medications Current Medications: Generic Name Dose Route Start Last Admin Trade Name Freq PRN Reason Stop Dose Admin Acetaminophen 650 mg 07/20/19 16:56 07/28/19 04:10 Tylenol FEEDTUBE 650 mg Q6H PRN Administration Fever >101 Albuterol 2.5 mg 07/14/19 04:54 07/16/19 13:42 Proventil IH 2.5 mg Q4HRT PRN Administration Shortness Of Breath Lipase/Protease/Amylase 1 each 07/18/19 13:20 Pancrenarinder Moeller 10,500 Unit FEEDTUBE PRN PRN For Clogged Feeding Tube Aspirin 81 mg 07/28/19 10:00 07/28/19 09:12 Baby Aspirin FEEDTUBE 81 mg QDAY TERRELL Administration Fentanyl 25 mcg 07/25/19 10:51 07/28/19 11:35 Sublimaze IV 25 mcg Q2HR PRN Administration Pain, Moderate (4-6) Glycopyrrolate 0.2 mg 07/27/19 16:00 07/28/19 09:25 Robinul IV 0.2 mg Q6H TERRELL Administration Haloperidol Lactate 5 mg 07/12/19 21:35 07/24/19 12:00 Haldol IV 5 mg Q1H PRN Administration Unrespon. to mult. doses BZD's Hydralazine HCl 10 mg 07/23/19 10:46 07/27/19 17:30 Apresoline IV 10 mg Q4HR PRN Administration BP >160/100 Dextrose 1,000 mls @ 42 mls/hr 07/26/19 15:00 07/28/19 03:00 D5w IV 42 mls/hr DIRECT TERRELL Administration Magnesium Sulfate 4 gm in 100 mls @ 25 mls/hr 07/28/19 11:58 Magnesium Sulfate 4gm/100ml IV 07/28/19 15:57 ONCE ONE Lansoprazole 30 mg 07/18/19 11:00 07/28/19 09:12 Prevacid Solutab FEEDTUBE 30 mg QDAY TERRELL Administration Lorazepam 1 mg 07/27/19 11:49 07/28/19 09:42 Ativan IV 1 mg Q2H PRN Administration Agitation Scopolamine 1 each 07/23/19 11:00 07/26/19 12:34 Transderm-Scop TD 1 each Q3D TERRELL Administration Simple Syrup 15 ml 07/18/19 13:20 Simple Syrup FEEDTUBE PRN PRN Hypoglycemia Simple Syrup 30 ml 07/18/19 13:20 Simple Syrup FEEDTUBE PRN PRN Hypoglycemia Sodium Bicarbonate 325 mg 07/18/19 13:20 Sodium Bicarbonate FEEDTUBE PRN PRN For Clogged Feeding Tube Thiamine HCl 100 mg 07/22/19 10:00 07/28/19 09:12 Vitamin B-1 PO 100 mg QDAY TERRELL Administration Valsartan 80 mg 07/27/19 15:16 07/28/19 09:13 Diovan PO 80 mg BID TERRELL Administration Nutrition/Malnutrition Assess - Dietary Evaluation Nutrition/Malnutrition Findings: Nutrition Notes Start: 07/18/19 12:09 Freq: Status: Active Protocol: Document 07/24/19 10:53 MK (Rec: 07/24/19 10:57 MK [id number]) Co-Sign 07/24/19 10:53 LP Nutrition Notes Initial or Follow up Reassessment Current Diagnosis Acute Kidney Injury, Hypertension,Heart Failure, Respiratory Failure Other Pertinent Diagnosis on HD , metabolic acidosis, pnuemonia Current Diet Nepro at 41ml/hr Labs/Tests K 3.4 BUN 70 Cr 1.8 Pertinent Medications Reviewed Height 5 ft 10 in Weight 102 kg [place] Body Weight (kg) 75.45 BMI 32.2 Subjective/Other Information Pt tolerating Nepro at 41ml/hr . Pt remains on vent. Percent of energy/protein needs met: 100%/53% Burn Absent Trauma Absent GI Symptoms None Difficulty In Swallowing,Chewing Current % PO Negligible Minimum of two criteria Yes Energy Intake (severe) < or equal to 50% Estimated Energy Requirement > or equal to 5 days Muscle Mass Mild Depletion (non-severe) Fluid Accumulation Moderate to Severe (severe) Reduced Research Physician Strength Measurably Reduced (severe) #2 Nutrition Diagnosis Malnutrition Diagnosis Progress(for reassessment Continues documentation) #1 Nutrition Diagnosis Inadequate oral intake Diagnosis Progress(for reassessment Continues documentation) Is patient on ventilator? Yes Is Patient Ambulatory and/or Out of Bed No REE-([place]-confined to bed) 2272.980 Kcal/Kg value to use for calculation 17 Approximate Energy Requirements Using 1734 kcal/Kg Calculation Used for Recommendations Kcal/kg Additional Notes Protein needs: 150 g (> 2 g/ kgIBW) Fluid needs: 1ml/kcal or per MD Nutrition Intervention Change Diet Order: TF Nutrition Support: Nepro 1.8 at 41 ml/hr. Water flush of 130 ml q4h. Kcal 1,771 Protein (gm) 80 Fluid (mL) 715 Goal #1 Meet at least 75% of protein and energy needs Anticipated Discharge Needs: unble to determine at this time Follow-Up By: 07/31/19 Additional Comments Follow for stable TF tolerance
[2019-07-28] MEDS ORDERED: MAGNESIUM SULFATE 4 GM/100 ML BAG IV ONE (12:30)
--- NOTE | 2019-07-28 13:05 | XRay Report ---
CHEST 1 VIEW INDICATION: fever. COMPARISON: 07/26/2019 FINDINGS: Support devices: Endotracheal tube and NG tube remain in satisfactory position. Heart: Stable cardiomegaly. Lungs/Pleura: Lung volumes have improved as has edema. Left basilar volume loss/consolidation remains though aeration has improved. Mild residual opacity remains at the right base. Additional findings: None. IMPRESSION: Interval improvement. Residual basilar volume loss/opacity left greater than right. Signer Name: Mike Dobbins MD Signed: 07/28/2019 1:00 PM Workstation Name: [id number]
[2019-07-28 13:34] LABS: Hematocrit 20.9 % (35.5-45.6); Hemoglobin 6.7 gm/dl (11.8-15.2); Mean Corpuscular HGB Conc 32 % (32-34); Mean Corpuscular Volume 97 fl (84-94); Platelet Count 294 K/mm3 (140-440); Red Blood Count 2.16 M/mm3 (3.65-5.03)
[2019-07-28 14:04] LABS: INR 1.82 (0.87-1.13)
--- NOTE | 2019-07-28 14:27 | Anesthesia Consultation ---
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
--- NOTE | 2019-07-28 14:49 | Consultation ---
History of Present Illness Consult date: 07/28/19 Reason for Consult: Stroke, anoxic brain injury Chief complaint: Anoxic brain injury, stroke History of present illness: Patient is a 48-year-old man with a history of deafness, hypertension, CHF, anxiety, depression, COPD, GERD, history of alcohol abuse. He initially presented on July 12 with shortness of breath. He was found to have a left lower lobe pneumonia, acute respiratory failure, uremia, hyponatremia, and metabolic acidosis. The patient required hemodialysis. On July 18, he was noted to go into cardiac arrest, and was given CPR, and ultimately will return to spontaneous circulation. He was shifted to the ICU, and went into cardiac arrest once again, for which ACLS was done once again. Patient returned to spontaneous circulation after second cardiac arrest as well. Patient has remained intubated and comatose since cardiac arrest. Past History Past Medical History: COPD, heart failure, hypertension, other (See HPI) Past Surgical History: No surgical history, Other (Reviewed) Social history: single. denies: smoking, alcohol abuse, prescription drug abuse Family history: diabetes, hypertension Medications and Allergies Allergies Allergy/AdvReac Type Severity Reaction Status Date / Time No Known Allergies Allergy Verified 07/01/19 11:20 Home Medications Medication Instructions Recorded Confirmed Last Taken Type Magnesium Oxide 400 mg PO BIDAC #60 tablet 12/07/16 07/13/19 1 Day Ago Rx ~09/16/17 Thiamine [Vitamin B-1] 100 mg PO QDAY #30 tablet 12/07/16 07/13/19 2 Days Ago Rx ~09/14/17 100 mg Lisinopril [Zestril] 20 mg PO DAILY #30 tablet 09/18/17 07/13/19 Unknown Rx Pantoprazole [Protonix TAB] 40 mg PO BID #60 tablet 09/18/17 07/13/19 Unknown Rx Aspirin [Aspirin BABY CHEW TAB] 81 mg PO QDAY #30 tab.chew 07/05/19 07/13/19 Unknown Rx Furosemide [Lasix TAB] 40 mg PO BID #60 tablet 07/05/19 07/13/19 Unknown Rx Nitroglycerin [Nitrostat] 0.4 mg SL .Q5MIN PRN #10 tablet 07/05/19 07/13/19 Unknown Rx Spironolactone [Aldactone] 12.5 mg PO QDAY #30 tablet 07/05/19 07/13/19 Unknown Rx carvediloL [Coreg] 6.25 mg PO BID #60 tablet 07/05/19 07/13/19 Unknown Rx lisinopriL [Zestril TAB] 20 mg PO QDAY #30 tablet 07/05/19 07/13/19 Unknown Rx Active Meds: Active Medications Acetaminophen (Tylenol) 650 mg FEEDTUBE Q6H PRN PRN Reason: Fever >101 Last Admin: 07/28/19 12:29 Dose: 650 mg Documented by: Albuterol (Proventil) 2.5 mg IH Q4HRT PRN PRN Reason: Shortness Of Breath Last Admin: 07/16/19 13:42 Dose: 2.5 mg Documented by: Lipase/Protease/Amylase (Kwan Moeller 10,500 Unit) 1 each FEEDTUBE PRN PRN PRN Reason: For Clogged Feeding Tube Aspirin (Baby Aspirin) 81 mg FEEDTUBE QDAY [facility] Last Admin: 07/28/19 09:12 Dose: 81 mg Documented by: Fentanyl (Sublimaze) 25 mcg IV Q2HR PRN PRN Reason: Pain, Moderate (4-6) Last Admin: 07/28/19 11:35 Dose: 25 mcg Documented by: Glycopyrrolate (Robinul) 0.2 mg IV Q6H [facility] Last Admin: 07/28/19 09:25 Dose: 0.2 mg Documented by: Haloperidol Lactate (Haldol) 5 mg IV Q1H PRN PRN Reason: Unrespon. to mult. doses BZD's Last Admin: 07/24/19 12:00 Dose: 5 mg Documented by: Hydralazine HCl (Apresoline) 10 mg IV Q4HR PRN PRN Reason: BP >160/100 Last Admin: 07/27/19 17:30 Dose: 10 mg Documented by: Dextrose (D5w) 1,000 mls @ 42 mls/hr IV DIRECT [facility] Last Admin: 07/28/19 03:00 Dose: 42 mls/hr Documented by: Magnesium Sulfate (Magnesium Sulfate 4gm/100ml) 4 gm in 100 mls @ 25 mls/hr IV ONCE ONE Stop: 07/28/19 16:29 Last Admin: 07/28/19 12:28 Dose: 25 mls/hr Documented by: Lansoprazole (Prevacid Solutab) 30 mg FEEDTUBE QDAY [facility] Last Admin: 07/28/19 09:12 Dose: 30 mg Documented by: Lorazepam (Ativan) 1 mg IV Q2H PRN PRN Reason: Agitation Last Admin: 07/28/19 09:42 Dose: 1 mg Documented by: Scopolamine (Transderm-Scop) 1 each TD Q3D [facility] Last Admin: 07/26/19 12:34 Dose: 1 each Documented by: Simple Syrup (Simple Syrup) 15 ml FEEDTUBE PRN PRN PRN Reason: Hypoglycemia Simple Syrup (Simple Syrup) 30 ml FEEDTUBE PRN PRN PRN Reason: Hypoglycemia Sodium Bicarbonate (Sodium Bicarbonate) 325 mg FEEDTUBE PRN PRN PRN Reason: For Clogged Feeding Tube Thiamine HCl (Vitamin B-1) 100 mg PO QDAY [facility] Last Admin: 07/28/19 09:12 Dose: 100 mg Documented by: Valsartan (Diovan) 80 mg PO BID [facility] Last Admin: 07/28/19 09:13 Dose: 80 mg Documented by: Review of Systems ROS unobtainable: due to endotracheal tube, due to mental status Physical Examination - Vital Signs Vital Signs: Vital Signs Pulse 125 H 07/12/19 14:35 - Physical Exam Narrative exam: Patient comatose, intubated. PERRL, corneal and cough reflexes intact. W/d to pain in all extremities. 2+ reflexes throughout. - Constitutional General appearance: acutely ill - EENT EENT: Present: ATNC, mucous membranes moist - Respiratory Respiratory: Present: decreased breath sounds - Cardiovascular Cardiovascular: Present: regular rate, normal S1, normal S2 Extremities: Present: no clubbing, cyanosis, no inflammation - Gastrointestinal Gastrointestinal: Present: normoactive bowel sounds, soft, non-tender Results - Laboratory Findings CBC and BMP: 07/28/19 12:29 07/28/19 08:06 Abnormal Lab Findings: Abnormal Labs 07/12/19 07/12/19 07/12/19 14:46 15:08 15:08 WBC 14.7 H RBC 2.97 L Hgb 9.7 L Hct 29.0 L MCV 98 H MCH 33 H RDW 19.8 H Plt Count 124 L Seg Neuts % (Manual) 91.0 H Lymphocytes % (Manual) 2.0 L Monocytes % (Manual) Nucleated RBC % 1.0 H Seg Neutrophils # Man 13.4 H Lymphocytes # (Manual) 0.3 L Monocytes # (Manual) PT 19.8 H INR 1.65 H APTT 47.8 H ABG pH ABG pO2 ABG HCO3 ABG O2 Saturation ABG Base Excess ABG Hemoglobin Oxyhemoglobin Sodium Potassium Chloride Carbon Dioxide BUN Creatinine Glucose POC Glucose 110 H Calcium Phosphorus Magnesium Iron TIBC Ferritin Total Bilirubin Direct Bilirubin AST Alkaline Phosphatase Lactate Dehydrogenase Troponin T NT-Pro-B Natriuret Pep Serum Total Protein Total Protein Albumin Alaqc-6-Gsqrovmim Gamma Globulins PEP Interpretation LDL Cholesterol Direct Vitamin B12 Folate Urine WBC (Auto) Urine Creatinine Urine Total Protein Fluid Glucose Fluid Total Protein 07/12/19 07/12/19 07/12/19 15:08 15:08 15:08 WBC RBC Hgb Hct MCV MCH RDW Plt Count Seg Neuts % (Manual) Lymphocytes % (Manual) Monocytes % (Manual) Nucleated RBC % Seg Neutrophils # Man Lymphocytes # (Manual) Monocytes # (Manual) PT INR APTT ABG pH ABG pO2 ABG HCO3 ABG O2 Saturation ABG Base Excess ABG Hemoglobin Oxyhemoglobin Sodium 125 L Potassium 5.5 H Chloride 84.9 L Carbon Dioxide 13 L BUN 70 H Creatinine 8.8 H Glucose POC Glucose Calcium 8.0 L Phosphorus Magnesium 1.30 L Iron TIBC Ferritin Total Bilirubin 1.30 H Direct Bilirubin 0.9 H AST 53 H Alkaline Phosphatase 208 H Lactate Dehydrogenase Troponin T 0.192 H* NT-Pro-B Natriuret Pep > 27398 H Serum Total Protein Total Protein Albumin 3.3 L Zxrwz-7-Ffejfwyqu Gamma Globulins PEP Interpretation LDL Cholesterol Direct 40 L Vitamin B12 Folate Urine WBC (Auto) Urine Creatinine Urine Total Protein Fluid Glucose Fluid Total Protein 07/12/19 07/13/19 07/13/19 17:04 01:32 01:32 WBC RBC Hgb Hct MCV MCH RDW Plt Count Seg Neuts % (Manual) Lymphocytes % (Manual) Monocytes % (Manual) Nucleated RBC % Seg Neutrophils # Man Lymphocytes # (Manual) Monocytes # (Manual) PT INR APTT ABG pH ABG pO2 ABG HCO3 ABG O2 Saturation ABG Base Excess ABG Hemoglobin Oxyhemoglobin Sodium 133 L D Potassium 5.3 H Chloride 90.8 L Carbon Dioxide 20 L D BUN 48 H Creatinine 6.2 H Glucose 105 H POC Glucose Calcium 8.2 L Phosphorus 4.90 H Magnesium 1.50 L Iron TIBC Ferritin Total Bilirubin Direct Bilirubin AST Alkaline Phosphatase Lactate Dehydrogenase Troponin T 0.188 H* NT-Pro-B Natriuret Pep Serum Total Protein Total Protein Albumin Tnjtd-4-Gshbgdpbz Gamma Globulins PEP Interpretation LDL Cholesterol Direct Vitamin B12 Folate Urine WBC (Auto) Urine Creatinine Urine Total Protein Fluid Glucose Fluid Total Protein 07/13/19 07/13/19 07/13/19 04:28 04:28 16:16 WBC 15.9 H RBC 3.10 L Hgb 10.2 L Hct 30.6 L MCV 99 H MCH 33 H RDW 19.4 H Plt Count 135 L Seg Neuts % (Manual) Lymphocytes % (Manual) 4.0 L Monocytes % (Manual) Nucleated RBC % Seg Neutrophils # Man 9.9 H Lymphocytes # (Manual) 0.6 L Monocytes # (Manual) PT INR APTT ABG pH ABG pO2 ABG HCO3 ABG O2 Saturation ABG Base Excess ABG Hemoglobin Oxyhemoglobin Sodium 132 L 134 L Potassium 5.1 H Chloride 90.3 L 92.2 L Carbon Dioxide 17 L 20 L BUN 47 H 55 H Creatinine 6.0 H 6.5 H Glucose 124 H POC Glucose Calcium 8.2 L 7.9 L Phosphorus Magnesium Iron TIBC Ferritin Total Bilirubin Direct Bilirubin AST Alkaline Phosphatase Lactate Dehydrogenase Troponin T NT-Pro-B Natriuret Pep Serum Total Protein Total Protein Albumin Pgtaq-8-Mowwoinqt Gamma Globulins PEP Interpretation LDL Cholesterol Direct Vitamin B12 Folate Urine WBC (Auto) Urine Creatinine Urine Total Protein Fluid Glucose Fluid Total Protein 07/14/19 07/14/19 07/14/19 07:16 07:16 07:16 WBC RBC 2.65 L Hgb 8.6 L Hct 25.4 L MCV 96 H MCH 33 H RDW 19.7 H Plt Count 114 L Seg Neuts % (Manual) 89.0 H Lymphocytes % (Manual) 4.0 L Monocytes % (Manual) Nucleated RBC % Seg Neutrophils # Man Lymphocytes # (Manual) 0.3 L Monocytes # (Manual) PT INR APTT ABG pH ABG pO2 ABG HCO3 ABG O2 Saturation ABG Base Excess ABG Hemoglobin Oxyhemoglobin Sodium 133 L Potassium Chloride 93.0 L Carbon Dioxide 18 L BUN 61 H Creatinine 7.3 H Glucose 113 H POC Glucose Calcium 7.7 L Phosphorus Magnesium Iron TIBC Ferritin Total Bilirubin Direct Bilirubin AST Alkaline Phosphatase Lactate Dehydrogenase 210 H Troponin T NT-Pro-B Natriuret Pep Serum Total Protein Total Protein Albumin Mrvdm-7-Heqwrszfd Gamma Globulins PEP Interpretation LDL Cholesterol Direct Vitamin B12 Folate Urine WBC (Auto) Urine Creatinine Urine Total Protein Fluid Glucose Fluid Total Protein 07/14/19 07/14/19 07/14/19 10:45 16:40 17:28 WBC RBC Hgb Hct MCV MCH RDW Plt Count Seg Neuts % (Manual) Lymphocytes % (Manual) Monocytes % (Manual) Nucleated RBC % Seg Neutrophils # Man Lymphocytes # (Manual) Monocytes # (Manual) PT INR APTT ABG pH ABG pO2 ABG HCO3 ABG O2 Saturation ABG Base Excess ABG Hemoglobin Oxyhemoglobin Sodium Potassium Chloride Carbon Dioxide BUN Creatinine Glucose POC Glucose Calcium Phosphorus Magnesium Iron TIBC Ferritin Total Bilirubin Direct Bilirubin AST Alkaline Phosphatase Lactate Dehydrogenase Troponin T NT-Pro-B Natriuret Pep Serum Total Protein Total Protein Albumin Unkkf-7-Bdigmmerz Gamma Globulins PEP Interpretation LDL Cholesterol Direct Vitamin B12 Folate Urine WBC (Auto) Urine Creatinine 104.2 H 106.2 H Urine Total Protein 173 H Fluid Glucose 93 H Fluid Total Protein 4.7 L 07/14/19 07/14/19 07/15/19 17:28 20:43 06:30 WBC RBC 3.06 L Hgb 9.9 L Hct 29.7 L MCV 97 H MCH 33 H RDW 19.5 H Plt Count 101 L Seg Neuts % (Manual) Lymphocytes % (Manual) Monocytes % (Manual) Nucleated RBC % Seg Neutrophils # Man Lymphocytes # (Manual) Monocytes # (Manual) PT INR APTT ABG pH ABG pO2 ABG HCO3 ABG O2 Saturation ABG Base Excess ABG Hemoglobin Oxyhemoglobin Sodium Potassium Chloride Carbon Dioxide BUN Creatinine Glucose POC Glucose 120 H Calcium Phosphorus Magnesium Iron TIBC Ferritin Total Bilirubin Direct Bilirubin AST Alkaline Phosphatase Lactate Dehydrogenase Troponin T NT-Pro-B Natriuret Pep Serum Total Protein Total Protein Albumin Sfqwy-6-Zagrvpaow Gamma Globulins PEP Interpretation LDL Cholesterol Direct Vitamin B12 Folate Urine WBC (Auto) 31.0 H Urine Creatinine Urine Total Protein Fluid Glucose Fluid Total Protein 07/15/19 07/15/19 07/15/19 06:30 06:30 06:30 WBC RBC Hgb Hct MCV MCH RDW Plt Count Seg Neuts % (Manual) Lymphocytes % (Manual) Monocytes % (Manual) Nucleated RBC % Seg Neutrophils # Man Lymphocytes # (Manual) Monocytes # (Manual) PT INR APTT ABG pH ABG pO2 ABG HCO3 ABG O2 Saturation ABG Base Excess ABG Hemoglobin Oxyhemoglobin Sodium Potassium Chloride 95.2 L Carbon Dioxide BUN 42 H Creatinine 4.9 H Glucose POC Glucose Calcium Phosphorus Magnesium Iron 15 L TIBC 186 L Ferritin 428.2 H Total Bilirubin Direct Bilirubin AST 50 H Alkaline Phosphatase 191 H Lactate Dehydrogenase Troponin T NT-Pro-B Natriuret Pep Serum Total Protein Total Protein Albumin 3.1 L Ljjvn-3-Gaicwrkei Gamma Globulins PEP Interpretation LDL Cholesterol Direct Vitamin B12 Folate Urine WBC (Auto) Urine Creatinine Urine Total Protein Fluid Glucose Fluid Total Protein 07/15/19 07/16/19 07/16/19 12:42 06:19 21:34 WBC RBC Hgb Hct MCV MCH RDW Plt Count Seg Neuts % (Manual) Lymphocytes % (Manual) Monocytes % (Manual) Nucleated RBC % Seg Neutrophils # Man Lymphocytes # (Manual) Monocytes # (Manual) PT INR APTT ABG pH ABG pO2 ABG HCO3 ABG O2 Saturation ABG Base Excess ABG Hemoglobin Oxyhemoglobin Sodium 134 L 134 L Potassium Chloride 92.9 L 93.4 L Carbon Dioxide 20 L BUN 55 H 40 H Creatinine 5.6 H 4.4 H Glucose POC Glucose 140 H Calcium Phosphorus Magnesium Iron TIBC Ferritin Total Bilirubin Direct Bilirubin AST Alkaline Phosphatase Lactate Dehydrogenase Troponin T NT-Pro-B Natriuret Pep Serum Total Protein Total Protein Albumin Fiaef-2-Unhxrhcug Gamma Globulins PEP Interpretation LDL Cholesterol Direct Vitamin B12 Folate Urine WBC (Auto) Urine Creatinine Urine Total Protein Fluid Glucose Fluid Total Protein 07/17/19 07/17/19 07/17/19 05:27 12:10 12:52 WBC RBC Hgb Hct MCV MCH RDW Plt Count Seg Neuts % (Manual) Lymphocytes % (Manual) Monocytes % (Manual) Nucleated RBC % Seg Neutrophils # Man Lymphocytes # (Manual) Monocytes # (Manual) PT INR APTT ABG pH ABG pO2 ABG HCO3 ABG O2 Saturation ABG Base Excess ABG Hemoglobin Oxyhemoglobin Sodium 136 L Potassium Chloride 93.6 L Carbon Dioxide BUN 43 H Creatinine 4.8 H Glucose POC Glucose 122 H 122 H Calcium Phosphorus Magnesium Iron TIBC Ferritin Total Bilirubin Direct Bilirubin AST Alkaline Phosphatase Lactate Dehydrogenase Troponin T NT-Pro-B Natriuret Pep Serum Total Protein Total Protein Albumin Rhxbu-0-Tddvwfivb Gamma Globulins PEP Interpretation LDL Cholesterol Direct Vitamin B12 Folate Urine WBC (Auto) Urine Creatinine Urine Total Protein Fluid Glucose Fluid Total Protein 07/17/19 07/18/19 07/18/19 13:50 04:20 05:40 WBC RBC Hgb Hct MCV MCH RDW Plt Count Seg Neuts % (Manual) Lymphocytes % (Manual) Monocytes % (Manual) Nucleated RBC % Seg Neutrophils # Man Lymphocytes # (Manual) Monocytes # (Manual) PT INR APTT ABG pH 7.262 L ABG pO2 195.5 H 238.9 H ABG HCO3 ABG O2 Saturation 99.1 H 99.4 H ABG Base Excess -2.9 L ABG Hemoglobin 8.6 L 10.9 L Oxyhemoglobin Sodium Potassium Chloride 94.5 L Carbon Dioxide BUN 61 H Creatinine 5.6 H Glucose 111 H POC Glucose Calcium Phosphorus 4.70 H Magnesium Iron TIBC Ferritin Total Bilirubin Direct Bilirubin AST Alkaline Phosphatase Lactate Dehydrogenase 294 H Troponin T NT-Pro-B Natriuret Pep Serum Total Protein Total Protein Albumin Dowru-9-Ckuutxvhx Gamma Globulins PEP Interpretation LDL Cholesterol Direct Vitamin B12 Folate Urine WBC (Auto) Urine Creatinine Urine Total Protein Fluid Glucose Fluid Total Protein 07/18/19 07/18/19 07/18/19 05:40 05:40 10:30 WBC 22.7 H RBC 2.64 L Hgb 8.2 L Hct 24.9 L MCV 95 H MCH RDW 19.7 H Plt Count 94 L Seg Neuts % (Manual) Lymphocytes % (Manual) Monocytes % (Manual) Nucleated RBC % Seg Neutrophils # Man Lymphocytes # (Manual) Monocytes # (Manual) PT INR APTT ABG pH 7.457 H ABG pO2 ABG HCO3 26.3 H ABG O2 Saturation ABG Base Excess ABG Hemoglobin 7.8 L Oxyhemoglobin 94.6 L Sodium Potassium Chloride Carbon Dioxide BUN Creatinine Glucose POC Glucose Calcium Phosphorus Magnesium Iron TIBC Ferritin Total Bilirubin Direct Bilirubin 0.7 H AST 94 H Alkaline Phosphatase 159 H Lactate Dehydrogenase Troponin T NT-Pro-B Natriuret Pep Serum Total Protein Total Protein 5.6 L D Albumin 2.5 L Aygwh-7-Xyiokbffg Gamma Globulins PEP Interpretation LDL Cholesterol Direct Vitamin B12 Folate Urine WBC (Auto) Urine Creatinine Urine Total Protein Fluid Glucose Fluid Total Protein 07/18/19 07/19/19 07/19/19 Unknown 05:15 05:15 WBC RBC Hgb Hct MCV MCH RDW Plt Count Seg Neuts % (Manual) Lymphocytes % (Manual) Monocytes % (Manual) Nucleated RBC % Seg Neutrophils # Man Lymphocytes # (Manual) Monocytes # (Manual) PT INR APTT ABG pH ABG pO2 ABG HCO3 ABG O2 Saturation ABG Base Excess ABG Hemoglobin 11.6 L Oxyhemoglobin 94.3 L Sodium 133 L Potassium Chloride 94.9 L Carbon Dioxide BUN 43 H Creatinine 4.0 H Glucose 118 H POC Glucose Calcium Phosphorus Magnesium 0.20 L* Iron TIBC Ferritin Total Bilirubin Direct Bilirubin AST Alkaline Phosphatase Lactate Dehydrogenase Troponin T NT-Pro-B Natriuret Pep Serum Total Protein Total Protein Albumin Gpjma-9-Kykxqnrss Gamma Globulins PEP Interpretation LDL Cholesterol Direct Vitamin B12 Folate Urine WBC (Auto) Urine Creatinine Urine Total Protein Fluid Glucose Fluid Total Protein 07/19/19 07/19/19 07/20/19 05:15 06:00 06:15 WBC 14.6 H RBC 2.57 L Hgb 8.2 L Hct 24.3 L MCV 95 H MCH RDW 19.5 H Plt Count 101 L Seg Neuts % (Manual) Lymphocytes % (Manual) Monocytes % (Manual) Nucleated RBC % Seg Neutrophils # Man Lymphocytes # (Manual) Monocytes # (Manual) PT INR APTT ABG pH ABG pO2 91.2 H ABG HCO3 27.5 H ABG O2 Saturation ABG Base Excess ABG Hemoglobin 8.3 L Oxyhemoglobin Sodium Potassium Chloride Carbon Dioxide BUN 61 H Creatinine 4.6 H Glucose 117 H POC Glucose Calcium Phosphorus Magnesium Iron TIBC Ferritin Total Bilirubin Direct Bilirubin AST Alkaline Phosphatase Lactate Dehydrogenase Troponin T NT-Pro-B Natriuret Pep Serum Total Protein Total Protein Albumin Pudbg-3-Bzdfcrbso Gamma Globulins PEP Interpretation LDL Cholesterol Direct Vitamin B12 Folate Urine WBC (Auto) Urine Creatinine Urine Total Protein Fluid Glucose Fluid Total Protein 07/21/19 07/21/19 07/21/19 05:30 06:15 06:15 WBC 11.8 H RBC 2.45 L Hgb 7.9 L Hct 23.5 L MCV 96 H MCH RDW 19.4 H Plt Count Seg Neuts % (Manual) Lymphocytes % (Manual) Monocytes % (Manual) Nucleated RBC % Seg Neutrophils # Man Lymphocytes # (Manual) Monocytes # (Manual) PT INR APTT ABG pH ABG pO2 104.5 H ABG HCO3 27.9 H ABG O2 Saturation ABG Base Excess 3.3 H ABG Hemoglobin 8.2 L Oxyhemoglobin Sodium Potassium 3.3 L Chloride Carbon Dioxide BUN 74 H Creatinine 4.3 H Glucose 127 H POC Glucose Calcium Phosphorus Magnesium Iron TIBC Ferritin Total Bilirubin Direct Bilirubin AST Alkaline Phosphatase Lactate Dehydrogenase Troponin T NT-Pro-B Natriuret Pep Serum Total Protein Total Protein Albumin Cbgtz-2-Wcerbptgb Gamma Globulins PEP Interpretation LDL Cholesterol Direct Vitamin B12 Folate Urine WBC (Auto) Urine Creatinine Urine Total Protein Fluid Glucose Fluid Total Protein 07/21/19 07/21/19 07/21/19 08:00 08:00 17:51 WBC RBC Hgb Hct MCV MCH RDW Plt Count Seg Neuts % (Manual) Lymphocytes % (Manual) Monocytes % (Manual) Nucleated RBC % Seg Neutrophils # Man Lymphocytes # (Manual) Monocytes # (Manual) PT INR APTT ABG pH ABG pO2 ABG HCO3 ABG O2 Saturation ABG Base Excess ABG Hemoglobin Oxyhemoglobin Sodium Potassium 3.2 L Chloride Carbon Dioxide BUN Creatinine Glucose POC Glucose Calcium Phosphorus Magnesium Iron TIBC Ferritin Total Bilirubin Direct Bilirubin AST Alkaline Phosphatase Lactate Dehydrogenase Troponin T NT-Pro-B Natriuret Pep Serum Total Protein Total Protein Albumin Sqlrs-1-Pcvfupabi Gamma Globulins PEP Interpretation LDL Cholesterol Direct Vitamin B12 960.4 H Folate 6.18 L Urine WBC (Auto) Urine Creatinine Urine Total Protein Fluid Glucose Fluid Total Protein 07/22/19 07/22/19 07/22/19 03:40 06:00 21:45 WBC 12.6 H RBC 2.54 L Hgb 7.8 L Hct 24.2 L MCV 95 H MCH RDW 19.7 H Plt Count Seg Neuts % (Manual) Lymphocytes % (Manual) Monocytes % (Manual) Nucleated RBC % Seg Neutrophils # Man Lymphocytes # (Manual) Monocytes # (Manual) PT INR APTT ABG pH ABG pO2 99.4 H ABG HCO3 27.3 H ABG O2 Saturation ABG Base Excess ABG Hemoglobin 9.2 L Oxyhemoglobin Sodium Potassium 3.1 L Chloride Carbon Dioxide BUN 75 H Creatinine 2.9 H Glucose 123 H POC Glucose Calcium Phosphorus Magnesium Iron TIBC Ferritin Total Bilirubin Direct Bilirubin AST Alkaline Phosphatase Lactate Dehydrogenase Troponin T NT-Pro-B Natriuret Pep Serum Total Protein Total Protein Albumin Ewplj-1-Pdnidkube Gamma Globulins PEP Interpretation LDL Cholesterol Direct Vitamin B12 Folate Urine WBC (Auto) Urine Creatinine Urine Total Protein Fluid Glucose Fluid Total Protein 07/23/19 07/23/19 07/24/19 05:30 05:30 04:12 WBC RBC Hgb Hct MCV MCH RDW Plt Count Seg Neuts % (Manual) Lymphocytes % (Manual) Monocytes % (Manual) Nucleated RBC % Seg Neutrophils # Man Lymphocytes # (Manual) Monocytes # (Manual) PT INR APTT ABG pH ABG pO2 123.1 H ABG HCO3 27.1 H ABG O2 Saturation ABG Base Excess ABG Hemoglobin 9.3 L Oxyhemoglobin Sodium Potassium 3.1 L Chloride Carbon Dioxide BUN 80 H Creatinine 2.6 H Glucose 112 H POC Glucose Calcium Phosphorus Magnesium Iron TIBC Ferritin Total Bilirubin Direct Bilirubin AST Alkaline Phosphatase Lactate Dehydrogenase Troponin T NT-Pro-B Natriuret Pep Serum Total Protein 5.9 L Total Protein Albumin 2.2 L Nncac-2-Nhvtrqzla 0.5 H Gamma Globulins 2.0 H PEP Interpretation see below H LDL Cholesterol Direct Vitamin B12 Folate Urine WBC (Auto) Urine Creatinine Urine Total Protein Fluid Glucose Fluid Total Protein 07/24/19 07/24/19 07/25/19 07:03 07:03 04:05 WBC RBC Hgb Hct MCV MCH RDW Plt Count Seg Neuts % (Manual) Lymphocytes % (Manual) Monocytes % (Manual) Nucleated RBC % Seg Neutrophils # Man Lymphocytes # (Manual) Monocytes # (Manual) PT INR APTT ABG pH ABG pO2 ABG HCO3 ABG O2 Saturation ABG Base Excess ABG Hemoglobin Oxyhemoglobin Sodium 147 H Potassium 3.4 L Chloride 107.5 H 110.1 H Carbon Dioxide BUN 70 H 62 H Creatinine 1.8 H Glucose 112 H 115 H POC Glucose Calcium Phosphorus Magnesium 1.50 L Iron TIBC Ferritin Total Bilirubin Direct Bilirubin AST Alkaline Phosphatase Lactate Dehydrogenase Troponin T NT-Pro-B Natriuret Pep Serum Total Protein Total Protein Albumin Bbqvh-3-Segesyrpc Gamma Globulins PEP Interpretation LDL Cholesterol Direct Vitamin B12 Folate Urine WBC (Auto) Urine Creatinine Urine Total Protein Fluid Glucose Fluid Total Protein 07/25/19 07/25/19 07/26/19 04:05 05:27 04:47 WBC 11.4 H RBC 2.39 L Hgb 7.5 L Hct 23.0 L MCV 96 H MCH RDW 19.4 H Plt Count Seg Neuts % (Manual) 76.0 H Lymphocytes % (Manual) 9.0 L Monocytes % (Manual) 11.0 H Nucleated RBC % Seg Neutrophils # Man 8.7 H Lymphocytes # (Manual) 1.0 L Monocytes # (Manual) 1.3 H PT INR APTT ABG pH 7.457 H ABG pO2 75.5 L ABG HCO3 27.2 H ABG O2 Saturation ABG Base Excess 3.1 H ABG Hemoglobin 7.0 L Oxyhemoglobin 94.4 L Sodium 147 H Potassium Chloride 111.5 H Carbon Dioxide BUN 57 H Creatinine Glucose 121 H POC Glucose Calcium Phosphorus Magnesium Iron TIBC Ferritin Total Bilirubin Direct Bilirubin AST Alkaline Phosphatase Lactate Dehydrogenase Troponin T NT-Pro-B Natriuret Pep Serum Total Protein Total Protein Albumin Bnsgc-0-Avfdoyqiu Gamma Globulins PEP Interpretation LDL Cholesterol Direct Vitamin B12 Folate Urine WBC (Auto) Urine Creatinine Urine Total Protein Fluid Glucose Fluid Total Protein 07/26/19 07/27/19 07/27/19 04:47 01:17 05:55 WBC RBC Hgb Hct MCV MCH RDW Plt Count Seg Neuts % (Manual) Lymphocytes % (Manual) Monocytes % (Manual) Nucleated RBC % Seg Neutrophils # Man Lymphocytes # (Manual) Monocytes # (Manual) PT INR APTT ABG pH ABG pO2 ABG HCO3 ABG O2 Saturation ABG Base Excess ABG Hemoglobin Oxyhemoglobin Sodium 147 H Potassium Chloride 109.6 H Carbon Dioxide BUN 43 H Creatinine Glucose 113 H POC Glucose 122 H Calcium Phosphorus Magnesium 1.50 L Iron TIBC Ferritin Total Bilirubin Direct Bilirubin AST Alkaline Phosphatase Lactate Dehydrogenase Troponin T NT-Pro-B Natriuret Pep Serum Total Protein Total Protein Albumin Zcbjm-7-Bvhvwqtcb Gamma Globulins PEP Interpretation LDL Cholesterol Direct Vitamin B12 Folate Urine WBC (Auto) Urine Creatinine Urine Total Protein Fluid Glucose Fluid Total Protein 07/28/19 07/28/19 07/28/19 08:06 12:29 13:31 WBC 11.3 H RBC 2.16 L Hgb 6.7 L Hct 20.9 L MCV 97 H MCH RDW 19.0 H Plt Count Seg Neuts % (Manual) Lymphocytes % (Manual) Monocytes % (Manual) Nucleated RBC % Seg Neutrophils # Man Lymphocytes # (Manual) Monocytes # (Manual) PT 21.4 H INR 1.82 H APTT ABG pH ABG pO2 ABG HCO3 ABG O2 Saturation ABG Base Excess ABG Hemoglobin Oxyhemoglobin Sodium 147 H Potassium Chloride 111.0 H Carbon Dioxide BUN 35 H Creatinine Glucose 119 H POC Glucose Calcium Phosphorus Magnesium 1.50 L Iron TIBC Ferritin Total Bilirubin Direct Bilirubin AST Alkaline Phosphatase Lactate Dehydrogenase Troponin T NT-Pro-B Natriuret Pep Serum Total Protein Total Protein Albumin [id number] Gamma Globulins PEP Interpretation LDL Cholesterol Direct Vitamin B12 Folate Urine WBC (Auto) Urine Creatinine Urine Total Protein Fluid Glucose Fluid Total Protein Assessment and Plan Patient is a 48-year-old man with a history of deafness, hypertension, CHF, anxiety, depression, COPD, GERD, history of alcohol abuse, who presented with shortness of breath on July 12, was found to have left lower lobe pneumonia, acute respiratory failure, uremia, hyponatremia, and metabolic acidosis. Patient went into cardiac arrest on July 18, and ultimately returned to spontaneous circulation. According the patient's clinical findings, it is likely that he has anoxic brain injury as well as metabolic encephalopathy. The patient was also found to have an acute to subacute infarct on MRI. Plan: 1. Stroke: - MRI brain: subacute infarct in right posterior temporal white matter - CUS: no significant stenosis - MRA head: no significant stenosis - Echo: EF 50-55%, LA normal size - As patient was found to have PAF, would recommend for patient to be anticoagulated. Ok to start anti-coagulation now from neurologic perspective, as risk of hemorrhagic trnasformation is low given size of infarct. Timing of starting anti-coagulation to be decided per primary and surgery teams, as patient is planned to have trach/PEG placed soon. - Cont. statin. LDL goal <70 - Telemetry monitoring while in house - PT/OT/ST - DVT Ppx: Recommend lovenox 2. Hypertension: - Recommend BP goal of normotension. 3. Anoxic brain injury/metabolic encephalopathy: - Patient had cardiac arrest x2 on 07/18/2019 - EEG: Generalized slowing. No seizures or epileptiform activity. - Brain stem reflexes intact, therefore not clinically brain . - Discussed with family regarding prognosis. Father stated he would like for patient to undergo trach/PEG - Continue to correct metabolic/infectious abnormalities per primary/ICU teams. - Will sign off. Please call with any questions. Thank you for allowing me to take part in the care of this patient. Josue Alejandra MD Neurology
[2019-07-28 15:12] LABS: Bilirubin,Urine NEG (Negative); Blood,Urine SM (Negative); Color,Urine Yellow (Yellow); Urobilinogen,Urine < 2.0 mg/dL (<2.0)
--- NOTE | 2019-07-28 15:24 | Progress Note ---
Assessment and Plan Cultures: 07/12/2019 blood culture: Negative 07/14/2019 urine culture: mixed growth 07/17/2019 tracheal aspirate: E coli A/P: 48/M with deafness, HTN, CHF, anxiety, depression, COPD was admitted to the hospital on 07/12/2019 with shortness of breath, found to have hypoxia and renal failure and was started on urgent dialysis, now with: #Shock, following PEA cardiac arrest #Bilateral multifocal pneumonia, acute respiratory failure: Possibly aspiration v/s lung contusion from CPR following cardiac arrest. Culture growing GNR. Empiric cefepime, vancomycin and Flagyl for now, anticipate stopping vancomycin soon. #Acute renal failure: Dialysis requiring. Nephrology following, evaluating for glomerulonephritis and vasculitis. Patient also has rare schistocytes in peripheral blood along with few eosinophils in urine. Renally dose abx. #CHF #Acute encephalopathy: post arrest. Recs: -Remain off antibiotics for now -Follow-up urinalysis - follow up fever and WBC - possible central fevers - Poor prognosis. -For trach and PEG, with placement to nursing facility Will follow. Salo Morgan MD [facility] M: [phone] O: [phone] F: [phone] Subjective Date of service: 07/28/19 Principal diagnosis: post anoxic brain injury Interval history: Remains febrile at 101.3, with a slightly elevated white count at 11. Not currently on antibiotics. Imaging personally reviewed: Chest x-ray: Improved Objective - Exam Narrative Exam: Constitutional: Intubated Head, Ears, Nose: Normocephalic, atraumatic. Cardiovascular: S1, S2 normal. Respiratory: Good air entry, clear to auscultation bilaterally GI: Soft, non-tender; bowel sounds + Musculoskeletal: No pedal edema, no cyanosis. Skin: No rash or abscess Hem/Lymphatic: No palpable cervical or supraclavicular nodes. No lymphangitis Psych: None-responsive. Neurological: Non-responsive - Constitutional Vitals: Vital Signs Temp Pulse Resp BP Pulse Ox 101.3 F H 99 H 28 H 118/61 99 07/28/19 12:00 07/28/19 15:08 07/28/19 12:00 07/28/19 15:08 07/28/19 15:08 Temperature -Last 24 Hours Temperature 101.3 F Temperature 100.5 F Temperature 100.3 F Temperature 101.8 F Temperature 100.9 F Temperature 100.9 F Temperature 99.5 F - Labs CBC & Chem 7: 07/28/19 12:29 07/28/19 08:06 Labs: Abnormal lab results 07/28/19 07/28/19 07/28/19 Range/Units 08:06 12:29 13:31 WBC 11.3 H (4.5-11.0) K/mm3 RBC 2.16 L (3.65-5.03) M/mm3 Hgb 6.7 L (11.8-15.2) gm/dl Hct 20.9 L (35.5-45.6) % MCV 97 H (84-94) fl RDW 19.0 H (13.2-15.2) % PT 21.4 H (12.2-14.9) Sec. INR 1.82 H (0.87-1.13) Sodium 147 H (137-145) mmol/L Chloride 111.0 H (98-107) mmol/L BUN 35 H (9-20) mg/dL Glucose 119 H (75-100) mg/dL Magnesium 1.50 L (1.7-2.3) mg/dL
[2019-07-28] MEDS ORDERED: SODIUM CHLORIDE 0.9% 500 ML 500 ML IV SCH (16:00)
[2019-07-28] MEDS: PHYTONADIONE(ADULT ONLY) 10 MG in SODIUM CHLORIDE 0.9% 50 ML IV SCH (16:30)
--- NOTE | 2019-07-28 16:54 | Progress Note ---
Assessment and Plan Acute Kidney Injury possibly prerenal/ATN, cardiorenal syndrome, diuretics, ACEI, AIN from NSAIDs, ? underlying CKD process, no obstruction Hyperkalemia High Anion Gap Metabolic Acidosis Acute respiratory failure LLL PNA Anemia Hypomagnesemia S/p Cardiac Arrest Acute on chronic systolic CHF Questionable Anoxic Brain Injury Plan: - Renal function reviewed, SCr level was 1.2 today, yesterday's SCr level was 1.2 - Replete magnesium - On D5W infusion at 42 ml/hr - On free water 250 ml via NGT q6hrs for hypernatremia - Hgb level was 6.7 today, pRBCs ordered - S/p removal of Vas Catheter - no need for HD at this time - Secondary GN and vasculitis work up ordered, so far negative for ANCA, SHANNA, normal complement, negative HCV, HBV, HIV, anti-GBM, but has rare schisto with elevated LDH, consulted hematology - Renal US mentioned moderate ascites, but no hydronephrosis - Neuro evaluated pt, f/u recs - Planning on Trach and PEG on 07/29/19 - S/p US guided paracentesis with removal of 3200 ml on 07/15/19 - Renally dose medications - [place] Catheter: No - Intake= 2611 ml Output= 2050 ml ( Net= 561 ml) - Renal plan d/w Dr Cohn Subjective Date of service: 07/28/19 Principal diagnosis: post anoxic brain injury Interval history: Pt intubated in ICU on ventilator, no family at bedside. Spoke with ICU nurse, pt scheduled for Trach and PEG tomorrow Objective - Vital Signs Vital signs: Vital Signs - 12hr 07/28/19 07/28/19 07/28/19 05:00 05:46 05:51 Temperature 100.3 F H Pulse Rate 126 H 100 H Pulse Rate [ From Monitor] Respiratory 16 Rate Blood Pressure 150/75 132/78 O2 Sat by Pulse 99 99 Oximetry 07/28/19 07/28/19 07/28/19 06:00 07:00 08:00 Temperature 100.5 F H Pulse Rate 104 H 95 H 101 H Pulse Rate [ 97 H From Monitor] Respiratory 23 16 24 Rate Blood Pressure 129/70 125/66 134/76 O2 Sat by Pulse 97 97 96 Oximetry 07/28/19 07/28/19 07/28/19 09:00 09:13 11:08 Temperature Pulse Rate 115 H 105 H 160 H Pulse Rate [ From Monitor] Respiratory 26 H Rate Blood Pressure 155/100 155/100 164/91 O2 Sat by Pulse 96 Oximetry 07/28/19 07/28/19 07/28/19 11:35 12:00 14:00 Temperature 101.3 F H 100.5 F H Pulse Rate 136 H Pulse Rate [ 109 H From Monitor] Respiratory 12 28 H Rate Blood Pressure 139/71 149/83 O2 Sat by Pulse 96 Oximetry 07/28/19 07/28/19 15:08 16:00 Temperature 100.5 F H Pulse Rate 99 H Pulse Rate [ From Monitor] Respiratory Rate Blood Pressure 118/61 O2 Sat by Pulse 99 Oximetry - General Appearance General appearance: intubated EENT: ATNC Neck: no JVD Respiratory: Present: Decreased Breath Sounds (intubated) Cardiology: regular, S1S2 Gastrointestinal: normoactive bowel sounds (nasogastric tube intact) Integumentary: warm and dry Neurologic: other (intubated on vent) Musculoskeletal: other (trace edema to BLE) Psychiatric: other (unable to assess) - Lab 07/28/19 12:29 07/28/19 08:06 Most recent lab results ABG pH 7.457 pH Units (7.350-7.450) H 07/25/19 05:27 ABG pCO2 39.4 mm Hg 07/25/19 05:27 ABG pO2 75.5 mm Hg (80.0-90.0) L 07/25/19 05:27 ABG HCO3 27.2 mmol/L (20.0-26.0) H 07/25/19 05:27 ABG O2 Saturation 97.1 % (95.0-99.0) 07/25/19 05:27 Calcium 8.8 mg/dL (8.4-10.2) 07/28/19 08:06 Phosphorus 2.70 mg/dL (2.5-4.5) 07/24/19 07:03 Magnesium 1.50 mg/dL (1.7-2.3) L 07/28/19 08:06 Urine Creatinine 106.2 mg/dL (0.1-20.0) H 07/14/19 17:28 Urine Sodium 67 mmol/L 07/14/19 17:28 Urine Total Protein 173 mg/dL (5-11.8) H 07/14/19 16:40 Medications & Allergies - Medications Allergies/Adverse Reactions: Allergies No Known Allergies Allergy (Verified 07/01/19 11:20) Home Medications: Home Medications Medication Instructions Recorded Confirmed Last Taken Type Magnesium Oxide 400 mg PO BIDAC #60 tablet 12/07/16 07/13/19 1 Day Ago Rx ~09/16/17 Thiamine [Vitamin B-1] 100 mg PO QDAY #30 tablet 12/07/16 07/13/19 2 Days Ago Rx ~09/14/17 100 mg Lisinopril [Zestril] 20 mg PO DAILY #30 tablet 09/18/17 07/13/19 Unknown Rx Pantoprazole [Protonix TAB] 40 mg PO BID #60 tablet 09/18/17 07/13/19 Unknown Rx Aspirin [Aspirin BABY CHEW TAB] 81 mg PO QDAY #30 tab.chew 07/05/19 07/13/19 Unknown Rx Furosemide [Lasix TAB] 40 mg PO BID #60 tablet 07/05/19 07/13/19 Unknown Rx Nitroglycerin [Nitrostat] 0.4 mg SL .Q5MIN PRN #10 tablet 07/05/19 07/13/19 Un known Rx Spironolactone [Aldactone] 12.5 mg PO QDAY #30 tablet 07/05/19 07/13/19 Unknown Rx carvediloL [Coreg] 6.25 mg PO BID #60 tablet 07/05/19 07/13/19 Unknown Rx lisinopriL [Zestril TAB] 20 mg PO QDAY #30 tablet 07/05/19 07/13/19 Unknown Rx Active Medications: Generic Name Dose Route Start Last Admin Trade Name Freq PRN Reason Stop Dose Admin Acetaminophen 650 mg 07/20/19 16:56 07/28/19 12:29 Tylenol FEEDTUBE 650 mg Q6H PRN Administration Fever >101 Albuterol 2.5 mg 07/14/19 04:54 07/16/19 13:42 Proventil IH 2.5 mg Q4HRT PRN Administration Shortness Of Breath Lipase/Protease/Amylase 1 each 07/18/19 13:20 Pancrenarinder Moeller 10,500 Unit FEEDTUBE PRN PRN For Clogged Feeding Tube Aspirin 81 mg 07/28/19 10:00 07/28/19 09:12 Baby Aspirin FEEDTUBE 81 mg QDAY TERRELL Administration Fentanyl 25 mcg 07/25/19 10:51 07/28/19 11:35 Sublimaze IV 25 mcg Q2HR PRN Administration Pain, Moderate (4-6) Glycopyrrolate 0.2 mg 07/27/19 16:00 07/28/19 09:25 Robinul IV 0.2 mg Q6H TERRELL Administration Haloperidol Lactate 5 mg 07/12/19 21:35 07/24/19 12:00 Haldol IV 5 mg Q1H PRN Administration Unrespon. to mult. doses BZD's Hydralazine HCl 10 mg 07/23/19 10:46 07/27/19 17:30 Apresoline IV 10 mg Q4HR PRN Administration BP >160/100 Dextrose 1,000 mls @ 42 mls/hr 07/26/19 15:00 07/28/19 03:00 D5w IV 42 mls/hr DIRECT TERRELL Administration Phytonadione 10 mg/ Sodium 51 mls @ 100 mls/hr 07/28/19 16:30 Chloride IV 07/30/19 17:01 Q24H TERRELL Sodium Chloride 500 mls @ 0 mls/hr 07/28/19 16:00 Nacl 0.9% 500 Ml IV 07/28/19 22:00 ONCE TERRELL As Directed Lansoprazole 30 mg 07/18/19 11:00 07/28/19 09:12 Prevacid Solutab FEEDTUBE 30 mg QDAY TERRELL Administration Lorazepam 1 mg 07/27/19 11:49 07/28/19 09:42 Ativan IV 1 mg Q2H PRN Administration Agitation Scopolamine 1 each 07/23/19 11:00 07/26/19 12:34 Transderm-Scop TD 1 each Q3D TERRELL Administration Simple Syrup 15 ml 07/18/19 13:20 Simple Syrup FEEDTUBE PRN PRN Hypoglycemia Simple Syrup 30 ml 07/18/19 13:20 Simple Syrup FEEDTUBE PRN PRN Hypoglycemia Sodium Bicarbonate 325 mg 07/18/19 13:20 Sodium Bicarbonate FEEDTUBE PRN PRN For Clogged Feeding Tube Thiamine HCl 100 mg 07/22/19 10:00 07/28/19 09:12 Vitamin B-1 PO 100 mg QDAY TERRELL Administration Valsartan 80 mg 07/27/19 15:16 07/28/19 09:13 Diovan PO 80 mg BID TERRELL Administration
[2019-07-29] MEDS: ACETAMINOPHEN 325 MG/10.15 ML ORAL LIQD UNIT DOSE FEEDTUBE PRN ×4 (03:52→23:02)
[2019-07-29] MEDS: GLYCOPYRROLATE 0.4 MG/2 ML INJ IV SCH ×4 (03:52→21:44)
[2019-07-29 05:33] LABS: INR 1.69 (0.87-1.13)
[2019-07-29 06:07] LABS: BUN/Creatinine Ratio 26; Blood Urea Nitrogen 29 mg/dL (9-20); Calcium 8.8 mg/dL (8.4-10.2); Hemolysis Index 0
--- NOTE | 2019-07-29 07:38 | Hem/Onc Progress Note ---
Assessment and Plan 1. Anemia. The patient's MCV is 95. LDH was 294. Serum iron is low. Bilirubin is not elevated. Folate is low. Anemia may be secondary to bleed. As per the information available, the patient was placed on Eliquis and had some bleeding issues. Trend of hemoglobin show that on admission hemoglobin was 9.7. Renal impairment may have a role in the anemia. At admission, creatinine was 8.8. At this time, the patient is on Procrit. The patient may need iron supplement, folate supplement. 2. Heart failure. 3. Respiratory failure. 4. Renal impairment. 5. Pneumonia. 6. Suspected anoxic brain injury. 7. Deafness, language barrier. 8. Obesity. 9. History of thrombocytopenia. 10. History of atrial flutter with rapid ventricular response. 11. I will follow the patient during inpatient stay and then in the clinic setting. At this time, there is no evidence of hemolysis. ckd may have a role in anemia IV iron folate replacement on vent - grimaces - tries to move hand - Patient Problems (1) Anemia Current Visit: Yes Status: Acute Qualifiers: Anemia type: iron deficiency Subjective Date of service: 07/29/19 Principal diagnosis: anemia Interval history: on vent Objective - Exam Narrative Exam: Pain - n/a General appearance -vent Performance status complete dependent for care Eyes - no icterus ENT - intubated LNs cervical not palpable Neck - no LN Respiratory Normal - on o2 Breath sounds - CTA anteriorly CVS S1 S2 + Extremities no edema General GI Soft Rectal deferred male - deferred Skin warm Musculoskeletal - vent Neurologically intubated - Constitutional Vitals: Last Vital Signs Temp 100.2 F H 07/29/19 03:56 Pulse 114 H 07/29/19 06:00 Resp 24 07/29/19 06:00 BP 145/82 07/29/19 06:00 Pulse Ox 94 07/29/19 06:00 - Labs Lab Results: Laboratory Results - last 24 hr 07/28/19 07/28/19 07/28/19 08:06 12:29 13:31 WBC 11.3 H RBC 2.16 L Hgb 6.7 L Hct 20.9 L MCV 97 H MCH 31 MCHC 32 RDW 19.0 H Plt Count 294 Lymph % (Auto) Hand Cloth Cutter [place] % (Auto) Hand Cloth Cutter Eos % (Auto) Hand Cloth Cutter Baso % (Auto) Hand Cloth Cutter Lymph # Hand Cloth Cutter [place] # Hand Cloth Cutter Eos # Hand Cloth Cutter Baso # Hand Cloth Cutter Seg Neutrophils % Hand Cloth Cutter Seg Neutrophils # Hand Cloth Cutter PT 21.4 H INR 1.82 H Sodium 147 H Potassium 4.6 Chloride 111.0 H Carbon Dioxide 24 Anion Gap 17 BUN 35 H Creatinine 1.2 Estimated GFR > 60 BUN/Creatinine Ratio 29 Glucose 119 H Calcium 8.8 Magnesium 1.50 L Urine Color Urine Turbidity Urine pH Ur Specific [place] Urine Protein Urine Glucose (UA) Urine Ketones Urine Blood Urine Nitrite Urine Bilirubin Urine Urobilinogen Ur Leukocyte Esterase Urine WBC (Auto) Urine RBC (Auto) U Epithel Cells (Auto) Blood Type Antibody Screen Crossmatch 07/28/19 07/28/19 07/29/19 15:00 16:44 04:45 WBC RBC Hgb Hct MCV MCH MCHC RDW Plt Count Lymph % (Auto) [place] % (Auto) Eos % (Auto) Baso % (Auto) Lymph # [place] # Eos # Baso # Seg Neutrophils % Seg Neutrophils # PT INR Sodium 148 H Potassium 4.1 Chloride 111.8 H Carbon Dioxide 25 Anion Gap 15 BUN 29 H Creatinine 1.1 Estimated GFR > 60 BUN/Creatinine Ratio 26 Glucose 104 H Calcium 8.8 Magnesium Urine Color Yellow Urine Turbidity Clear Urine pH 7.0 Ur Specific [place] 1.013 Urine Protein 100 mg/dl Urine Glucose (UA) Neg Urine Ketones Neg Urine Blood Sm Urine Nitrite Neg Urine Bilirubin Neg Urine Urobilinogen < 2.0 Ur Leukocyte Esterase Neg Urine WBC (Auto) 2.0 Urine RBC (Auto) 2.0 U Epithel Cells (Auto) < 1.0 Blood Type A POSITIVE Antibody Screen Negative Crossmatch See Detail 07/29/19 07/29/19 04:45 04:45 WBC RBC Hgb Hct MCV MCH MCHC RDW Plt Count Lymph % (Auto) [place] % (Auto) Eos % (Auto) Baso % (Auto) Lymph # [place] # Eos # Baso # Seg Neutrophils % Seg Neutrophils # PT 20.2 H INR 1.69 H Sodium Potassium Chloride Carbon Dioxide Anion Gap BUN Creatinine Estimated GFR BUN/Creatinine Ratio Glucose Calcium Magnesium 1.80 Urine Color Urine Turbidity Urine pH Ur Specific [place] Urine Protein Urine Glucose (UA) Urine Ketones Urine Blood Urine Nitrite Urine Bilirubin Urine Urobilinogen Ur Leukocyte Esterase Urine WBC (Auto) Urine RBC (Auto) U Epithel Cells (Auto) Blood Type Antibody Screen Crossmatch Medications & Allergies - Medications Allergies/Adverse Reactions: Allergies No Known Allergies Allergy (Verified 07/01/19 11:20) Home Medications: Home Medications Medication Instructions Recorded Confirmed Last Taken Type Magnesium Oxide 400 mg PO BIDAC #60 tablet 12/07/16 07/13/19 1 Day Ago Rx ~09/16/17 Thiamine [Vitamin B-1] 100 mg PO QDAY #30 tablet 12/07/16 07/13/19 2 Days Ago Rx ~09/14/17 100 mg Lisinopril [Zestril] 20 mg PO DAILY #30 tablet 09/18/17 07/13/19 Unknown Rx Pantoprazole [Protonix TAB] 40 mg PO BID #60 tablet 09/18/17 07/13/19 Unknown Rx Aspirin [Aspirin BABY CHEW TAB] 81 mg PO QDAY #30 tab.chew 07/05/19 07/13/19 Unknown Rx Furosemide [Lasix TAB] 40 mg PO BID #60 tablet 07/05/19 07/13/19 Unknown Rx Nitroglycerin [Nitrostat] 0.4 mg SL .Q5MIN PRN #10 tablet 07/05/19 07/13/19 Unknown Rx Spironolactone [Aldactone] 12.5 mg PO QDAY #30 tablet 07/05/19 07/13/19 Unknown Rx carvediloL [Coreg] 6.25 mg PO BID #60 tablet 07/05/19 07/13/19 Unknown Rx lisinopriL [Zestril TAB] 20 mg PO QDAY #30 tablet 07/05/19 07/13/19 Unknown Rx Active Medications: Generic Name Dose Route Start Last Admin Trade Name Karol PRN Reason Stop Dose Admin Acetaminophen 650 mg 07/20/19 16:56 07/29/19 03:52 Tylenol FEEDTUBE 650 mg Q6H PRN Administration Fever >101 Albuterol 2.5 mg 07/14/19 04:54 07/16/19 13:42 Proventil IH 2.5 mg Q4HRT PRN Administration Shortness Of Breath Lipase/Protease/Amylase 1 each 07/18/19 13:20 Pancrenarinder Moeller 10,500 Unit FEEDTUBE PRN PRN For Clogged Feeding Tube Aspirin 81 mg 07/28/19 10:00 07/28/19 09:12 Baby Aspirin FEEDTUBE 81 mg QDAY TERRELL Administration Fentanyl 25 mcg 07/25/19 10:51 07/28/19 11:35 Sublimaze IV 25 mcg Q2HR PRN Administration Pain, Moderate (4-6) Glycopyrrolate 0.2 mg 07/27/19 16:00 07/29/19 03:52 Robinul IV 0.2 mg Q6H TERRELL Administration Haloperidol Lactate 5 mg 07/12/19 21:35 07/24/19 12:00 Haldol IV 5 mg Q1H PRN Administration Unrespon. to mult. doses BZD's Hydralazine HCl 10 mg 07/23/19 10:46 07/27/19 17:30 Apresoline IV 10 mg Q4HR PRN Administration BP >160/100 Dextrose 1,000 mls @ 42 mls/hr 07/26/19 15:00 07/28/19 03:00 D5w IV 42 mls/hr DIRECT TERRELL Administration Phytonadione 10 mg/ Sodium 51 mls @ 100 mls/hr 07/28/19 16:30 07/28/19 17:05 Chloride IV 07/30/19 17:01 Infused Q24H TERRELL Infusion Lansoprazole 30 mg 07/18/19 11:00 07/28/19 09:12 Prevacid Solutab FEEDTUBE 30 mg QDAY TERRELL Administration Lorazepam 1 mg 07/27/19 11:49 07/28/19 09:42 Ativan IV 1 mg Q2H PRN Administration Agitation Scopolamine 1 each 07/23/19 11:00 07/26/19 12:34 Transderm-Scop TD 1 each Q3D TERRELL Administration Simple Syrup 15 ml 07/18/19 13:20 Simple Syrup FEEDTUBE PRN PRN Hypoglycemia Simple Syrup 30 ml 07/18/19 13:20 Simple Syrup FEEDTUBE PRN PRN Hypoglycemia Sodium Bicarbonate 325 mg 07/18/19 13:20 Sodium Bicarbonate FEEDTUBE PRN PRN For Clogged Feeding Tube Thiamine HCl 100 mg 07/22/19 10:00 07/28/19 09:12 Vitamin B-1 PO 100 mg QDAY TERRELL Administration Valsartan 80 mg 07/27/19 15:16 07/28/19 21:10 Diovan PO 80 mg BID TERRELL Administration
[2019-07-29] MEDS ORDERED: SODIUM FERRIC GLUCON/SUCRO 125 MG in SODIUM CHLORIDE 0.9% 100 ML IV ONE (09:00)
[2019-07-29] MEDS: FOLIC ACID/VIT B COMP W-C 1 MG (RENAL CAPS) PO SCH (09:11)
[2019-07-29] MEDS: ASPIRIN 81 MG TAB CHEW FEEDTUBE SCH (09:11)
[2019-07-29] MEDS: LANSOPRAZOLE 30 MG SOLUTAB FEEDTUBE SCH (09:11)
[2019-07-29] MEDS: THIAMINE 100 MG TAB PO SCH (09:11)
[2019-07-29] MEDS: VALSARTAN 40 MG TAB PO SCH ×2 (09:12→21:44)
[2019-07-29] MEDS: DEXTROSE 5% IN WATER 1,000 ML IV SCH (09:47)
[2019-07-29 10:26] LABS: Basophils # (Auto) 0.2 K/mm3 (0.0-0.1); Basophils % (Auto) 2.3 % (0.0-1.8); Eosinophils # (Auto) 0.3 K/mm3 (0.0-0.4); Eosinophils % (Auto) 2.9 % (0.0-4.3); Hematocrit 22.8 % (35.5-45.6); Hemoglobin 7.3 gm/dl (11.8-15.2); Mean Corpuscular HGB Conc 32 % (32-34); Mean Corpuscular Volume 95 fl (84-94); Monocytes # (Auto) 1.1 K/mm3 (0.0-0.8); Monocytes % (Auto) 11.1 % (0.0-7.3); Platelet Count 262 K/mm3 (140-440)
[2019-07-29 10:27] LABS: Red Cell Distribution Width 21.2 % (13.2-15.2)
--- NOTE | 2019-07-29 10:37 | Progress Note ---
Assessment and Plan 48 y/o male with inhouse cardiac arrest x2 1. PRN ativan for sedation to prevent patient from self extubation. 2. Continue PSV daily and will now leave on as tolerated. No need to rest on vent unless absolutely necessary. 3. Trach and Peg today. 4. Neurology has not seen yet today. 5. Overall prognosis is guarded to poor. CCT 31 minutes. Subjective Date of service: 07/29/19 Principal diagnosis: anemia Interval history: No acute events. Getting trach and pegged today. Objective Vital Signs - 12hr 07/28/19 07/28/19 07/28/19 23:00 23:04 23:31 Temperature 100.7 F H 100.8 F H Pulse Rate 108 H 106 H 102 H Pulse Rate [ From Monitor] Respiratory 15 18 16 Rate Blood Pressure 139/71 139/71 135/73 O2 Sat by Pulse 96 100 100 Oximetry 07/29/19 07/29/19 07/29/19 00:00 00:06 01:00 Temperature 100.1 F H Pulse Rate 102 H 116 H 99 H Pulse Rate [ 102 H From Monitor] Respiratory 16 15 Rate Blood Pressure 129/68 129/68 O2 Sat by Pulse 97 100 100 Oximetry 07/29/19 07/29/19 07/29/19 02:00 03:00 03:54 Temperature Pulse Rate 112 H 97 H 117 H Pulse Rate [ From Monitor] Respiratory 15 16 Rate Blood Pressure 156/88 138/71 130/69 O2 Sat by Pulse 96 100 Oximetry 07/29/19 07/29/19 07/29/19 03:56 04:00 04:01 Temperature 100.2 F H Pulse Rate 131 H 130 H Pulse Rate [ 131 H From Monitor] Respiratory 19 25 H Rate Blood Pressure 154/83 O2 Sat by Pulse 100 95 Oximetry 07/29/19 07/29/19 07/29/19 05:00 06:00 07:00 Temperature Pulse Rate 105 H 114 H 106 H Pulse Rate [ From Monitor] Respiratory 18 24 16 Rate Blood Pressure 141/76 145/82 156/81 O2 Sat by Pulse 95 94 94 Oximetry 07/29/19 07/29/19 07/29/19 08:00 09:00 09:12 Temperature 100.8 F H Pulse Rate 105 H 110 H 111 H Pulse Rate [ 111 H From Monitor] Respiratory 19 22 Rate Blood Pressure 146/78 148/79 148/79 O2 Sat by Pulse 94 99 Oximetry Constitutional: no acute distress, comatose Eyes: non-icteric ENT: other (orally intubated not on sedation) Neck: supple Effort: normal Ascultation: Bilateral: clear Gastrointestinal: normoactive bowel sounds, soft, non-tender Integumentary: normal CBC and BMP: 07/29/19 10:06 07/29/19 04:45 ABG, PT/INR, D-dimer: ABG ABG pH 7.457 pH Units (7.350-7.450) H 07/25/19 05:27 ABG pCO2 39.4 mm Hg 07/25/19 05:27 ABG pO2 75.5 mm Hg (80.0-90.0) L 07/25/19 05:27 ABG O2 Saturation 97.1 % (95.0-99.0) 07/25/19 05:27 PT/INR, D-dimer PT 20.2 Sec. (12.2-14.9) H 07/29/19 04:45 INR 1.69 (0.87-1.13) H 07/29/19 04:45 Abnormal lab findings: Abnormal Labs 07/12/19 07/12/19 07/12/19 14:46 15:08 15:08 WBC 14.7 H RBC 2.97 L Hgb 9.7 L Hct 29.0 L MCV 98 H MCH 33 H RDW 19.8 H Plt Count 124 L Lymph % (Auto) [place] % (Auto) Baso % (Auto) Lymph # [place] # Baso # Seg Neutrophils % Seg Neuts % (Manual) 91.0 H Lymphocytes % (Manual) 2.0 L Monocytes % (Manual) Nucleated RBC % 1.0 H Seg Neutrophils # Man 13.4 H Lymphocytes # (Manual) 0.3 L Monocytes # (Manual) PT 19.8 H INR 1.65 H APTT 47.8 H ABG pH ABG pO2 ABG HCO3 ABG O2 Saturation ABG Base Excess ABG Hemoglobin Oxyhemoglobin Sodium Potassium Chloride Carbon Dioxide BUN Creatinine Glucose POC Glucose 110 H Calcium Phosphorus Magnesium Iron TIBC Ferritin Total Bilirubin Direct Bilirubin AST Alkaline Phosphatase Lactate Dehydrogenase Troponin T NT-Pro-B Natriuret Pep Serum Total Protein Total Protein Albumin Fsvlg-8-Zkknkbxbb Gamma Globulins PEP Interpretation LDL Cholesterol Direct Vitamin B12 Folate Urine WBC (Auto) Urine Creatinine Urine Total Protein Fluid Glucose Fluid Total Protein Crossmatch 07/12/19 07/12/19 07/12/19 15:08 15:08 15:08 WBC RBC Hgb Hct MCV MCH RDW Plt Count Lymph % (Auto) [place] % (Auto) Baso % (Auto) Lymph # [place] # Baso # Seg Neutrophils % Seg Neuts % (Manual) Lymphocytes % (Manual) Monocytes % (Manual) Nucleated RBC % Seg Neutrophils # Man Lymphocytes # (Manual) Monocytes # (Manual) PT INR APTT ABG pH ABG pO2 ABG HCO3 ABG O2 Saturation ABG Base Excess ABG Hemoglobin Oxyhemoglobin Sodium 125 L Potassium 5.5 H Chloride 84.9 L Carbon Dioxide 13 L BUN 70 H Creatinine 8.8 H Glucose POC Glucose Calcium 8.0 L Phosphorus Magnesium 1.30 L Iron TIBC Ferritin Total Bilirubin 1.30 H Direct Bilirubin 0.9 H AST 53 H Alkaline Phosphatase 208 H Lactate Dehydrogenase Troponin T 0.192 H* NT-Pro-B Natriuret Pep > 07279 H Serum Total Protein Total Protein Albumin 3.3 L Rlsdb-2-Oucmiyzmc Gamma Globulins PEP Interpretation LDL Cholesterol Direct 40 L Vitamin B12 Folate Urine WBC (Auto) Urine Creatinine Urine Total Protein Fluid Glucose Fluid Total Protein Crossmatch 07/12/19 07/13/19 07/13/19 17:04 01:32 01:32 WBC RBC Hgb Hct MCV MCH RDW Plt Count Lymph % (Auto) [place] % (Auto) Baso % (Auto) Lymph # [place] # Baso # Seg Neutrophils % Seg Neuts % (Manual) Lymphocytes % (Manual) Monocytes % (Manual) Nucleated RBC % Seg Neutrophils # Man Lymphocytes # (Manual) Monocytes # (Manual) PT INR APTT ABG pH ABG pO2 ABG HCO3 ABG O2 Saturation ABG Base Excess ABG Hemoglobin Oxyhemoglobin Sodium 133 L D Potassium 5.3 H Chloride 90.8 L Carbon Dioxide 20 L D BUN 48 H Creatinine 6.2 H Glucose 105 H POC Glucose Calcium 8.2 L Phosphorus 4.90 H Magnesium 1.50 L Iron TIBC Ferritin Total Bilirubin Direct Bilirubin AST Alkaline Phosphatase Lactate Dehydrogenase Troponin T 0.188 H* NT-Pro-B Natriuret Pep Serum Total Protein Total Protein Albumin Vmyvy-3-Yrnewjvxi Gamma Globulins PEP Interpretation LDL Cholesterol Direct Vitamin B12 Folate Urine WBC (Auto) Urine Creatinine Urine Total Protein Fluid Glucose Fluid Total Protein Crossmatch 07/13/19 07/13/19 07/13/19 04:28 04:28 16:16 WBC 15.9 H RBC 3.10 L Hgb 10.2 L Hct 30.6 L MCV 99 H MCH 33 H RDW 19.4 H Plt Count 135 L Lymph % (Auto) [place] % (Auto) Baso % (Auto) Lymph # [place] # Baso # Seg Neutrophils % Seg Neuts % (Manual) Lymphocytes % (Manual) 4.0 L Monocytes % (Manual) Nucleated RBC % Seg Neutrophils # Man 9.9 H Lymphocytes # (Manual) 0.6 L Monocytes # (Manual) PT INR APTT ABG pH ABG pO2 ABG HCO3 ABG O2 Saturation ABG Base Excess ABG Hemoglobin Oxyhemoglobin Sodium 132 L 134 L Potassium 5.1 H Chloride 90.3 L 92.2 L Carbon Dioxide 17 L 20 L BUN 47 H 55 H Creatinine 6.0 H 6.5 H Glucose 124 H POC Glucose Calcium 8.2 L 7.9 L Phosphorus Magnesium Iron TIBC Ferritin Total Bilirubin Direct Bilirubin AST Alkaline Phosphatase Lactate Dehydrogenase Troponin T NT-Pro-B Natriuret Pep Serum Total Protein Total Protein Albumin Oucbx-8-Mprhtfpnj Gamma Globulins PEP Interpretation LDL Cholesterol Direct Vitamin B12 Folate Urine WBC (Auto) Urine Creatinine Urine Total Protein Fluid Glucose Fluid Total Protein Crossmatch 07/14/19 07/14/19 07/14/19 07:16 07:16 07:16 WBC RBC 2.65 L Hgb 8.6 L Hct 25.4 L MCV 96 H MCH 33 H RDW 19.7 H Plt Count 114 L Lymph % (Auto) [place] % (Auto) Baso % (Auto) Lymph # [place] # Baso # Seg Neutrophils % Seg Neuts % (Manual) 89.0 H Lymphocytes % (Manual) 4.0 L Monocytes % (Manual) Nucleated RBC % Seg Neutrophils # Man Lymphocytes # (Manual) 0.3 L Monocytes # (Manual) PT INR APTT ABG pH ABG pO2 ABG HCO3 ABG O2 Saturation ABG Base Excess ABG Hemoglobin Oxyhemoglobin Sodium 133 L Potassium Chloride 93.0 L Carbon Dioxide 18 L BUN 61 H Creatinine 7.3 H Glucose 113 H POC Glucose Calcium 7.7 L Phosphorus Magnesium Iron TIBC Ferritin Total Bilirubin Direct Bilirubin AST Alkaline Phosphatase Lactate Dehydrogenase 210 H Troponin T NT-Pro-B Natriuret Pep Serum Total Protein Total Protein Albumin Gtpxp-5-Bjqfgnxkv Gamma Globulins PEP Interpretation LDL Cholesterol Direct Vitamin B12 Folate Urine WBC (Auto) Urine Creatinine Urine Total Protein Fluid Glucose Fluid Total Protein Crossmatch 07/14/19 07/14/19 07/14/19 10:45 16:40 17:28 WBC RBC Hgb Hct MCV MCH RDW Plt Count Lymph % (Auto) [place] % (Auto) Baso % (Auto) Lymph # [place] # Baso # Seg Neutrophils % Seg Neuts % (Manual) Lymphocytes % (Manual) Monocytes % (Manual) Nucleated RBC % Seg Neutrophils # Man Lymphocytes # (Manual) Monocytes # (Manual) PT INR APTT ABG pH ABG pO2 ABG HCO3 ABG O2 Saturation ABG Base Excess ABG Hemoglobin Oxyhemoglobin Sodium Potassium Chloride Carbon Dioxide BUN Creatinine Glucose POC Glucose Calcium Phosphorus Magnesium Iron TIBC Ferritin Total Bilirubin Direct Bilirubin AST Alkaline Phosphatase Lactate Dehydrogenase Troponin T NT-Pro-B Natriuret Pep Serum Total Protein Total Protein Albumin Aistf-7-Hnyrupbch Gamma Globulins PEP Interpretation LDL Cholesterol Direct Vitamin B12 Folate Urine WBC (Auto) Urine Creatinine 104.2 H 106.2 H Urine Total Protein 173 H Fluid Glucose 93 H Fluid Total Protein 4.7 L Crossmatch 07/14/19 07/14/19 07/15/19 17:28 20:43 06:30 WBC RBC 3.06 L Hgb 9.9 L Hct 29.7 L MCV 97 H MCH 33 H RDW 19.5 H Plt Count 101 L Lymph % (Auto) [place] % (Auto) Baso % (Auto) Lymph # [place] # Baso # Seg Neutrophils % Seg Neuts % (Manual) Lymphocytes % (Manual) Monocytes % (Manual) Nucleated RBC % Seg Neutrophils # Man Lymphocytes # (Manual) Monocytes # (Manual) PT INR APTT ABG pH ABG pO2 ABG HCO3 ABG O2 Saturation ABG Base Excess ABG Hemoglobin Oxyhemoglobin Sodium Potassium Chloride Carbon Dioxide BUN Creatinine Glucose POC Glucose 120 H Calcium Phosphorus Magnesium Iron TIBC Ferritin Total Bilirubin Direct Bilirubin AST Alkaline Phosphatase Lactate Dehydrogenase Troponin T NT-Pro-B Natriuret Pep Serum Total Protein Total Protein Albumin Rzxcl-3-Kfzxvkhet Gamma Globulins PEP Interpretation LDL Cholesterol Direct Vitamin B12 Folate Urine WBC (Auto) 31.0 H Urine Creatinine Urine Total Protein Fluid Glucose Fluid Total Protein Crossmatch 07/15/19 07/15/19 07/15/19 06:30 06:30 06:30 WBC RBC Hgb Hct MCV MCH RDW Plt Count Lymph % (Auto) [place] % (Auto) Baso % (Auto) Lymph # [place] # Baso # Seg Neutrophils % Seg Neuts % (Manual) Lymphocytes % (Manual) Monocytes % (Manual) Nucleated RBC % Seg Neutrophils # Man Lymphocytes # (Manual) Monocytes # (Manual) PT INR APTT ABG pH ABG pO2 ABG HCO3 ABG O2 Saturation ABG Base Excess ABG Hemoglobin Oxyhemoglobin Sodium Potassium Chloride 95.2 L Carbon Dioxide BUN 42 H Creatinine 4.9 H Glucose POC Glucose Calcium Phosphorus Magnesium Iron 15 L TIBC 186 L Ferritin 428.2 H Total Bilirubin Direct Bilirubin AST 50 H Alkaline Phosphatase 191 H Lactate Dehydrogenase Troponin T NT-Pro-B Natriuret Pep Serum Total Protein Total Protein Albumin 3.1 L Wtycg-5-Omiaobbco Gamma Globulins PEP Interpretation LDL Cholesterol Direct Vitamin B12 Folate Urine WBC (Auto) Urine Creatinine Urine Total Protein Fluid Glucose Fluid Total Protein Crossmatch 07/15/19 07/16/19 07/16/19 12:42 06:19 21:34 WBC RBC Hgb Hct MCV MCH RDW Plt Count Lymph % (Auto) [place] % (Auto) Baso % (Auto) Lymph # [place] # Baso # Seg Neutrophils % Seg Neuts % (Manual) Lymphocytes % (Manual) Monocytes % (Manual) Nucleated RBC % Seg Neutrophils # Man Lymphocytes # (Manual) Monocytes # (Manual) PT INR APTT ABG pH ABG pO2 ABG HCO3 ABG O2 Saturation ABG Base Excess ABG Hemoglobin Oxyhemoglobin Sodium 134 L 134 L Potassium Chloride 92.9 L 93.4 L Carbon Dioxide 20 L BUN 55 H 40 H Creatinine 5.6 H 4.4 H Glucose POC Glucose 140 H Calcium Phosphorus Magnesium Iron TIBC Ferritin Total Bilirubin Direct Bilirubin AST Alkaline Phosphatase Lactate Dehydrogenase Troponin T NT-Pro-B Natriuret Pep Serum Total Protein Total Protein Albumin Zevvo-8-Lpzsqbjgr Gamma Globulins PEP Interpretation LDL Cholesterol Direct Vitamin B12 Folate Urine WBC (Auto) Urine Creatinine Urine Total Protein Fluid Glucose Fluid Total Protein Crossmatch 07/17/19 07/17/19 07/17/19 05:27 12:10 12:52 WBC RBC Hgb Hct MCV MCH RDW Plt Count Lymph % (Auto) [place] % (Auto) Baso % (Auto) Lymph # [place] # Baso # Seg Neutrophils % Seg Neuts % (Manual) Lymphocytes % (Manual) Monocytes % (Manual) Nucleated RBC % Seg Neutrophils # Man Lymphocytes # (Manual) Monocytes # (Manual) PT INR APTT ABG pH ABG pO2 ABG HCO3 ABG O2 Saturation ABG Base Excess ABG Hemoglobin Oxyhemoglobin Sodium 136 L Potassium Chloride 93.6 L Carbon Dioxide BUN 43 H Creatinine 4.8 H Glucose POC Glucose 122 H 122 H Calcium Phosphorus Magnesium Iron TIBC Ferritin Total Bilirubin Direct Bilirubin AST Alkaline Phosphatase Lactate Dehydrogenase Troponin T NT-Pro-B Natriuret Pep Serum Total Protein Total Protein Albumin Nwwvl-0-Caccdmyvo Gamma Globulins PEP Interpretation LDL Cholesterol Direct Vitamin B12 Folate Urine WBC (Auto) Urine Creatinine Urine Total Protein Fluid Glucose Fluid Total Protein Crossmatch 07/17/19 07/18/19 07/18/19 13:50 04:20 05:40 WBC RBC Hgb Hct MCV MCH RDW Plt Count Lymph % (Auto) [place] % (Auto) Baso % (Auto) Lymph # [place] # Baso # Seg Neutrophils % Seg Neuts % (Manual) Lymphocytes % (Manual) Monocytes % (Manual) Nucleated RBC % Seg Neutrophils # Man Lymphocytes # (Manual) Monocytes # (Manual) PT INR APTT ABG pH 7.262 L ABG pO2 195.5 H 238.9 H ABG HCO3 ABG O2 Saturation 99.1 H 99.4 H ABG Base Excess -2.9 L ABG Hemoglobin 8.6 L 10.9 L Oxyhemoglobin Sodium Potassium Chloride 94.5 L Carbon Dioxide BUN 61 H Creatinine 5.6 H Glucose 111 H POC Glucose Calcium Phosphorus 4.70 H Magnesium Iron TIBC Ferritin Total Bilirubin Direct Bilirubin AST Alkaline Phosphatase Lactate Dehydrogenase 294 H Troponin T NT-Pro-B Natriuret Pep Serum Total Protein Total Protein Albumin Beabj-9-Mklqgrrgc Gamma Globulins PEP Interpretation LDL Cholesterol Direct Vitamin B12 Folate Urine WBC (Auto) Urine Creatinine Urine Total Protein Fluid Glucose Fluid Total Protein Crossmatch 07/18/19 07/18/19 07/18/19 05:40 05:40 10:30 WBC 22.7 H RBC 2.64 L Hgb 8.2 L Hct 24.9 L MCV 95 H MCH RDW 19.7 H Plt Count 94 L Lymph % (Auto) [place] % (Auto) Baso % (Auto) Lymph # [place] # Baso # Seg Neutrophils % Seg Neuts % (Manual) Lymphocytes % (Manual) Monocytes % (Manual) Nucleated RBC % Seg Neutrophils # Man Lymphocytes # (Manual) Monocytes # (Manual) PT INR APTT ABG pH 7.457 H ABG pO2 ABG HCO3 26.3 H ABG O2 Saturation ABG Base Excess ABG Hemoglobin 7.8 L Oxyhemoglobin 94.6 L Sodium Potassium Chloride Carbon Dioxide BUN Creatinine Glucose POC Glucose Calcium Phosphorus Magnesium Iron TIBC Ferritin Total Bilirubin Direct Bilirubin 0.7 H AST 94 H Alkaline Phosphatase 159 H Lactate Dehydrogenase Troponin T NT-Pro-B Natriuret Pep Serum Total Protein Total Protein 5.6 L D Albumin 2.5 L Ofyzb-7-Gnntygvgv Gamma Globulins PEP Interpretation LDL Cholesterol Direct Vitamin B12 Folate Urine WBC (Auto) Urine Creatinine Urine Total Protein Fluid Glucose Fluid Total Protein Crossmatch 07/18/19 07/19/19 07/19/19 Unknown 05:15 05:15 WBC RBC Hgb Hct MCV MCH RDW Plt Count Lymph % (Auto) [place] % (Auto) Baso % (Auto) Lymph # [place] # Baso # Seg Neutrophils % Seg Neuts % (Manual) Lymphocytes % (Manual) Monocytes % (Manual) Nucleated RBC % Seg Neutrophils # Man Lymphocytes # (Manual) Monocytes # (Manual) PT INR APTT ABG pH ABG pO2 ABG HCO3 ABG O2 Saturation ABG Base Excess ABG Hemoglobin 11.6 L Oxyhemoglobin 94.3 L Sodium 133 L Potassium Chloride 94.9 L Carbon Dioxide BUN 43 H Creatinine 4.0 H Glucose 118 H POC Glucose Calcium Phosphorus Magnesium 0.20 L* Iron TIBC Ferritin Total Bilirubin Direct Bilirubin AST Alkaline Phosphatase Lactate Dehydrogenase Troponin T NT-Pro-B Natriuret Pep Serum Total Protein Total Protein Albumin Cejmr-7-Ljivyrqcc Gamma Globulins PEP Interpretation LDL Cholesterol Direct Vitamin B12 Folate Urine WBC (Auto) Urine Creatinine Urine Total Protein Fluid Glucose Fluid Total Protein Crossmatch 07/19/19 07/19/19 07/20/19 05:15 06:00 06:15 WBC 14.6 H RBC 2.57 L Hgb 8.2 L Hct 24.3 L MCV 95 H MCH RDW 19.5 H Plt Count 101 L Lymph % (Auto) [place] % (Auto) Baso % (Auto) Lymph # [place] # Baso # Seg Neutrophils % Seg Neuts % (Manual) Lymphocytes % (Manual) Monocytes % (Manual) Nucleated RBC % Seg Neutrophils # Man Lymphocytes # (Manual) Monocytes # (Manual) PT INR APTT ABG pH ABG pO2 91.2 H ABG HCO3 27.5 H ABG O2 Saturation ABG Base Excess ABG Hemoglobin 8.3 L Oxyhemoglobin Sodium Potassium Chloride Carbon Dioxide BUN 61 H Creatinine 4.6 H Glucose 117 H POC Glucose Calcium Phosphorus Magnesium Iron TIBC Ferritin Total Bilirubin Direct Bilirubin AST Alkaline Phosphatase Lactate Dehydrogenase Troponin T NT-Pro-B Natriuret Pep Serum Total Protein Total Protein Albumin Acode-0-Sazgoryul Gamma Globulins PEP Interpretation LDL Cholesterol Direct Vitamin B12 Folate Urine WBC (Auto) Urine Creatinine Urine Total Protein Fluid Glucose Fluid Total Protein Crossmatch 07/21/19 07/21/19 07/21/19 05:30 06:15 06:15 WBC 11.8 H RBC 2.45 L Hgb 7.9 L Hct 23.5 L MCV 96 H MCH RDW 19.4 H Plt Count Lymph % (Auto) [place] % (Auto) Baso % (Auto) Lymph # [place] # Baso # Seg Neutrophils % Seg Neuts % (Manual) Lymphocytes % (Manual) Monocytes % (Manual) Nucleated RBC % Seg Neutrophils # Man Lymphocytes # (Manual) Monocytes # (Manual) PT INR APTT ABG pH ABG pO2 104.5 H ABG HCO3 27.9 H ABG O2 Saturation ABG Base Excess 3.3 H ABG Hemoglobin 8.2 L Oxyhemoglobin Sodium Potassium 3.3 L Chloride Carbon Dioxide BUN 74 H Creatinine 4.3 H Glucose 127 H POC Glucose Calcium Phosphorus Magnesium Iron TIBC Ferritin Total Bilirubin Direct Bilirubin AST Alkaline Phosphatase Lactate Dehydrogenase Troponin T NT-Pro-B Natriuret Pep Serum Total Protein Total Protein Albumin Icoxm-0-Mdewymjfv Gamma Globulins PEP Interpretation LDL Cholesterol Direct Vitamin B12 Folate Urine WBC (Auto) Urine Creatinine Urine Total Protein Fluid Glucose Fluid Total Protein Crossmatch 07/21/19 07/21/19 07/21/19 08:00 08:00 17:51 WBC RBC Hgb Hct MCV MCH RDW Plt Count Lymph % (Auto) [place] % (Auto) Baso % (Auto) Lymph # [place] # Baso # Seg Neutrophils % Seg Neuts % (Manual) Lymphocytes % (Manual) Monocytes % (Manual) Nucleated RBC % Seg Neutrophils # Man Lymphocytes # (Manual) Monocytes # (Manual) PT INR APTT ABG pH ABG pO2 ABG HCO3 ABG O2 Saturation ABG Base Excess ABG Hemoglobin Oxyhemoglobin Sodium Potassium 3.2 L Chloride Carbon Dioxide BUN Creatinine Glucose POC Glucose Calcium Phosphorus Magnesium Iron TIBC Ferritin Total Bilirubin Direct Bilirubin AST Alkaline Phosphatase Lactate Dehydrogenase Troponin T NT-Pro-B Natriuret Pep Serum Total Protein Total Protein Albumin Fmhbu-6-Hevpedoiz Gamma Globulins PEP Interpretation LDL Cholesterol Direct Vitamin B12 960.4 H Folate 6.18 L Urine WBC (Auto) Urine Creatinine Urine Total Protein Fluid Glucose Fluid Total Protein Crossmatch 07/22/19 07/22/19 07/22/19 03:40 06:00 21:45 WBC 12.6 H RBC 2.54 L Hgb 7.8 L Hct 24.2 L MCV 95 H MCH RDW 19.7 H Plt Count Lymph % (Auto) [place] % (Auto) Baso % (Auto) Lymph # [place] # Baso # Seg Neutrophils % Seg Neuts % (Manual) Lymphocytes % (Manual) Monocytes % (Manual) Nucleated RBC % Seg Neutrophils # Man Lymphocytes # (Manual) Monocytes # (Manual) PT INR APTT ABG pH ABG pO2 99.4 H ABG HCO3 27.3 H ABG O2 Saturation ABG Base Excess ABG Hemoglobin 9.2 L Oxyhemoglobin Sodium Potassium 3.1 L Chloride Carbon Dioxide BUN 75 H Creatinine 2.9 H Glucose 123 H POC Glucose Calcium Phosphorus Magnesium Iron TIBC Ferritin Total Bilirubin Direct Bilirubin AST Alkaline Phosphatase Lactate Dehydrogenase Troponin T NT-Pro-B Natriuret Pep Serum Total Protein Total Protein Albumin Msmjk-0-Jgqcrxcku Gamma Globulins PEP Interpretation LDL Cholesterol Direct Vitamin B12 Folate Urine WBC (Auto) Urine Creatinine Urine Total Protein Fluid Glucose Fluid Total Protein Crossmatch 07/23/19 07/23/19 07/24/19 05:30 05:30 04:12 WBC RBC Hgb Hct MCV MCH RDW Plt Count Lymph % (Auto) [place] % (Auto) Baso % (Auto) Lymph # [place] # Baso # Seg Neutrophils % Seg Neuts % (Manual) Lymphocytes % (Manual) Monocytes % (Manual) Nucleated RBC % Seg Neutrophils # Man Lymphocytes # (Manual) Monocytes # (Manual) PT INR APTT ABG pH ABG pO2 123.1 H ABG HCO3 27.1 H ABG O2 Saturation ABG Base Excess ABG Hemoglobin 9.3 L Oxyhemoglobin Sodium Potassium 3.1 L Chloride Carbon Dioxide BUN 80 H Creatinine 2.6 H Glucose 112 H POC Glucose Calcium Phosphorus Magnesium Iron TIBC Ferritin Total Bilirubin Direct Bilirubin AST Alkaline Phosphatase Lactate Dehydrogenase Troponin T NT-Pro-B Natriuret Pep Serum Total Protein 5.9 L Total Protein Albumin 2.2 L Fxkqp-9-Mvkpvcsyz 0.5 H Gamma Globulins 2.0 H PEP Interpretation see below H LDL Cholesterol Direct Vitamin B12 Folate Urine WBC (Auto) Urine Creatinine Urine Total Protein Fluid Glucose Fluid Total Protein Crossmatch 07/24/19 07/24/19 07/25/19 07:03 07:03 04:05 WBC RBC Hgb Hct MCV MCH RDW Plt Count Lymph % (Auto) [place] % (Auto) Baso % (Auto) Lymph # [place] # Baso # Seg Neutrophils % Seg Neuts % (Manual) Lymphocytes % (Manual) Monocytes % (Manual) Nucleated RBC % Seg Neutrophils # Man Lymphocytes # (Manual) Monocytes # (Manual) PT INR APTT ABG pH ABG pO2 ABG HCO3 ABG O2 Saturation ABG Base Excess ABG Hemoglobin Oxyhemoglobin Sodium 147 H Potassium 3.4 L Chloride 107.5 H 110.1 H Carbon Dioxide BUN 70 H 62 H Creatinine 1.8 H Glucose 112 H 115 H POC Glucose Calcium Phosphorus Magnesium 1.50 L Iron TIBC Ferritin Total Bilirubin Direct Bilirubin AST Alkaline Phosphatase Lactate Dehydrogenase Troponin T NT-Pro-B Natriuret Pep Serum Total Protein Total Protein Albumin Heuca-5-Hewofxhjt Gamma Globulins PEP Interpretation LDL Cholesterol Direct Vitamin B12 Folate Urine WBC (Auto) Urine Creatinine Urine Total Protein Fluid Glucose Fluid Total Protein Crossmatch 07/25/19 07/25/19 07/26/19 04:05 05:27 04:47 WBC 11.4 H RBC 2.39 L Hgb 7.5 L Hct 23.0 L MCV 96 H MCH RDW 19.4 H Plt Count Lymph % (Auto) [place] % (Auto) Baso % (Auto) Lymph # [place] # Baso # Seg Neutrophils % Seg Neuts % (Manual) 76.0 H Lymphocytes % (Manual) 9.0 L Monocytes % (Manual) 11.0 H Nucleated RBC % Seg Neutrophils # Man 8.7 H Lymphocytes # (Manual) 1.0 L Monocytes # (Manual) 1.3 H PT INR APTT ABG pH 7.457 H ABG pO2 75.5 L ABG HCO3 27.2 H ABG O2 Saturation ABG Base Excess 3.1 H ABG Hemoglobin 7.0 L Oxyhemoglobin 94.4 L Sodium 147 H Potassium Chloride 111.5 H Carbon Dioxide BUN 57 H Creatinine Glucose 121 H POC Glucose Calcium Phosphorus Magnesium Iron TIBC Ferritin Total Bilirubin Direct Bilirubin AST Alkaline Phosphatase Lactate Dehydrogenase Troponin T NT-Pro-B Natriuret Pep Serum Total Protein Total Protein Albumin Xofxs-9-Tmwmuszdo Gamma Globulins PEP Interpretation LDL Cholesterol Direct Vitamin B12 Folate Urine WBC (Auto) Urine Creatinine Urine Total Protein Fluid Glucose Fluid Total Protein Crossmatch 07/26/19 07/27/19 07/27/19 04:47 01:17 05:55 WBC RBC Hgb Hct MCV MCH RDW Plt Count Lymph % (Auto) [place] % (Auto) Baso % (Auto) Lymph # [place] # Baso # Seg Neutrophils % Seg Neuts % (Manual) Lymphocytes % (Manual) Monocytes % (Manual) Nucleated RBC % Seg Neutrophils # Man Lymphocytes # (Manual) Monocytes # (Manual) PT INR APTT ABG pH ABG pO2 ABG HCO3 ABG O2 Saturation ABG Base Excess ABG Hemoglobin Oxyhemoglobin Sodium 147 H Potassium Chloride 109.6 H Carbon Dioxide BUN 43 H Creatinine Glucose 113 H POC Glucose 122 H Calcium Phosphorus Magnesium 1.50 L Iron TIBC Ferritin Total Bilirubin Direct Bilirubin AST Alkaline Phosphatase Lactate Dehydrogenase Troponin T NT-Pro-B Natriuret Pep Serum Total Protein Total Protein Albumin Ztbvi-9-Ldsxqpyit Gamma Globulins PEP Interpretation LDL Cholesterol Direct Vitamin B12 Folate Urine WBC (Auto) Urine Creatinine Urine Total Protein Fluid Glucose Fluid Total Protein Crossmatch 07/28/19 07/28/19 07/28/19 08:06 12:29 13:31 WBC 11.3 H RBC 2.16 L Hgb 6.7 L Hct 20.9 L MCV 97 H MCH RDW 19.0 H Plt Count Lymph % (Auto) [place] % (Auto) Baso % (Auto) Lymph # [place] # Baso # Seg Neutrophils % Seg Neuts % (Manual) Lymphocytes % (Manual) Monocytes % (Manual) Nucleated RBC % Seg Neutrophils # Man Lymphocytes # (Manual) Monocytes # (Manual) PT 21.4 H INR 1.82 H APTT ABG pH ABG pO2 ABG HCO3 ABG O2 Saturation ABG Base Excess ABG Hemoglobin Oxyhemoglobin Sodium 147 H Potassium Chloride 111.0 H Carbon Dioxide BUN 35 H Creatinine Glucose 119 H POC Glucose Calcium Phosphorus Magnesium 1.50 L Iron TIBC Ferritin Total Bilirubin Direct Bilirubin AST Alkaline Phosphatase Lactate Dehydrogenase Troponin T NT-Pro-B Natriuret Pep Serum Total Protein Total Protein Albumin Azmqv-1-Weyhyijkn Gamma Globulins PEP Interpretation LDL Cholesterol Direct Vitamin B12 Folate Urine WBC (Auto) Urine Creatinine Urine Total Protein Fluid Glucose Fluid Total Protein Crossmatch 07/28/19 07/29/19 07/29/19 16:44 04:45 04:45 WBC RBC Hgb Hct MCV MCH RDW Plt Count Lymph % (Auto) [place] % (Auto) Baso % (Auto) Lymph # [place] # Baso # Seg Neutrophils % Seg Neuts % (Manual) Lymphocytes % (Manual) Monocytes % (Manual) Nucleated RBC % Seg Neutrophils # Man Lymphocytes # (Manual) Monocytes # (Manual) PT 20.2 H INR 1.69 H APTT ABG pH ABG pO2 ABG HCO3 ABG O2 Saturation ABG Base Excess ABG Hemoglobin Oxyhemoglobin Sodium 148 H Potassium Chloride 111.8 H Carbon Dioxide BUN 29 H Creatinine Glucose 104 H POC Glucose Calcium Phosphorus Magnesium Iron TIBC Ferritin Total Bilirubin Direct Bilirubin AST Alkaline Phosphatase Lactate Dehydrogenase Troponin T NT-Pro-B Natriuret Pep Serum Total Protein Total Protein Albumin Vwfoe-4-Uzfhhaeer Gamma Globulins PEP Interpretation LDL Cholesterol Direct Vitamin B12 Folate Urine WBC (Auto) Urine Creatinine Urine Total Protein Fluid Glucose Fluid Total Protein Crossmatch See Detail 07/29/19 10:06 WBC RBC 2.40 L Hgb 7.3 L Hct 22.8 L MCV 95 H MCH RDW 21.2 H Plt Count Lymph % (Auto) 11.0 L [place] % (Auto) 11.1 H Baso % (Auto) 2.3 H Lymph # 1.0 L [place] # 1.1 H Baso # 0.2 H Seg Neutrophils % 72.7 H Seg Neuts % (Manual) Lymphocytes % (Manual) Monocytes % (Manual) Nucleated RBC % Seg Neutrophils # Man Lymphocytes # (Manual) Monocytes # (Manual) PT INR APTT ABG pH ABG pO2 ABG HCO3 ABG O2 Saturation ABG Base Excess ABG Hemoglobin Oxyhemoglobin Sodium Potassium Chloride Carbon Dioxide BUN Creatinine Glucose POC Glucose Calcium Phosphorus Magnesium Iron TIBC Ferritin Total Bilirubin Direct Bilirubin AST Alkaline Phosphatase Lactate Dehydrogenase Troponin T NT-Pro-B Natriuret Pep Serum Total Protein Total Protein Albumin [id number]-8-Vcfnifavo Gamma Globulins PEP Interpretation LDL Cholesterol Direct Vitamin B12 Folate Urine WBC (Auto) Urine Creatinine Urine Total Protein Fluid Glucose Fluid Total Protein Crossmatch
[2019-07-29] MEDS: SCOPOLAMINE TRANSDERMAL PATCH 72 HR TD SCH (10:38)
--- NOTE | 2019-07-29 11:31 | Progress Note ---
Assessment and Plan Assessment and plan: 48-year-old man with a history of being deaf (writes to communicate) HTN, Systolic CHF(EF 20%), anxiety, depression COPD and GERD who presented to [facility] ED with severe SOB. EMS found patient to have a pulse oximetry of 80% on room air, improved to 92% on 2 L of supplemental oxygen. Patient was confused and provided limited history. Patient refused BiPAP. Patient given 40 mg of Lasix IV and and EMS gave 40mg iv lasix prior to arrival. Patient was found to have left lower lobe pneumonia, complicated by acute respiratory failure, severe Uremia, hyponatremia, hyperkalemia, metabolic acidosis. Patient admitted to medical floor for medical stabilization and treatment due to high risk for cardiopulm onary and renal decompensation. Nephrology team consulted in ED for urgent dialysis. Patient initiated on pneumonia protocol with IV antibiotic therapy. Patient treated with calcium gluconate and Kayexalate for hyperkalemia in ED. EKG showed no changes. Patient mental status so poor he had to be put in restraints to prevent for pulling and removing O2. Next day, patient remained confused, so He went down for CT head and he must've removed O2 mask while in CT scanner or had a fatal cardiac arrhythmia which he was experiencing NSVT/aflutter with RVR the night before. This led to Cardiac arrest. ED physician was the first to respond and saw Asystole on the monitor, ACLS done and when I arrived he was in PEA. He was a difficult Intubation as he had bleeding in the Endotracheal area due to Eliquis which was started on 07/16/2019. He was intubated by ED physician. Pulse was restored and he was sent to the ICU, where he had another Cardiac arrest with PEA, ACLS done again and pulse restor ed. Overnight he was posturing. He is comatose without any sedative. -History of deafness * pCXR showed bilateral pleural effusion with significant pulmonary congestion. EKG showed no ST elevation. * Initial Labs: WBC 14.7, hgb 9.7, plt 124, Na 125, k 5.5, co2 13, BUN 70, Cr 8.8 * MRI brain, mild diffuse volume loss and moderate chronic microangiopathy 8 mm focus of subacute ischemia is noted in the right posterior temporal white matter. Small chronic cortical infarct in the left parietal lobe measures up to 1.9 cm in diameter. * Acute on chronic systolic heart failure decompensation leading to respiratory failure: Meds optimized. Fluid was removed via dialysis, now has good urine output, improving Bilateral pneumonia; completed antibiotics on 07/25 Fever; likely central in origin, no evidence of infection currently, repeat bc, ua, cxr actually shows improved aeration Acute on chronic CHF, EF 25%. Medications optimized per cardiology, patient now appears to be improving Fluid overload, Ascites, status post paracentesis on 07/15, 3.2 L removed. Received dialysis. Acute hypoxic respiratory failure on MV > 96 hours, continue mechanical ventilator, plan for trach/peg, GS evaluating Severe ARF due to ATN, no longer needing HD. Nephrology input appreciated, has good urine output. HD cath now removed. acute metabolic encephalopathy likely anoxic enceph, , poa, thought to be due to severe Uremia, but uremia improved and he still not responsive , needing r estraints for agitation CVA; noted on MRI, MRA neg, carotid dopller neg, repeat echo for bubble study, optimize medications for secondary prevention, aspirin, no statin due to low LDL, blood pressure control. As MRI shows an old stroke and a relatively new stroke. Etiology of multiple strokes is not yet identified in this patient. Awaiting bubble study. Neuro reconsulted, to see pt later today Anemia appears AOCD due to renal dysfunction: continue to monitor cbc Thrombocytopenia: Likely due to alcohol abuse, resolved Obesity, bmi 32.1: certified rehabilitation counselor on lifestyle modification if patient improves Transient A. fib/a flutter on NSVT. Now resolved, no further medication or work-up required Hypokalemia; repleted Hypertensive urgency; continue to adjust BP meds Hypernatremia; continue free water via nG-tube, added small amounts of D5 water given advanced heart failure History of nonadherence, alcohol abuse, plan to certified rehabilitation counselor patient if his mentation improves. Copious oral secretions, cont scopolamine, add robinul Coagulopathy; likely due to vitamin K deficiency, ordered vitamin K x3 days full code DVT ppx: Michelle Discussed the goals of care and updated his father, his brother and his father's girlfriend. Explained the very poor prognosis. They would like to have family meeting with other family members and will return to us with a plan. Explained the options of hospice and removal of right support versus trach and PEG and longterm. the family is interested in him getting trach and PEG and placements. They have been advised to try to obtain insurance for him, as he will need to pay source to go to a rehab facility. -Prognosis is poor, this was conveyed to the family Advanced care planning performed for 30 minutes. Critical care time 35 minutes. History Interval history: Patient seen and examined at bedside this morning medical records reviewed Patient vent dependent scheduled for trach and PEG today per surgery Vital signs reviewed Hospitalist Physical - Constitutional Vitals: Temp Pulse Resp BP Pulse Ox 100.8 F H 111 H 22 148/79 99 07/29/19 08:00 07/29/19 09:12 07/29/19 09:00 07/29/19 09:12 07/29/19 09:00 General appearance: Present: mild distress, well-nourished, obese, other (On ventilatory support) - EENT Eyes: Present: PERRL, EOM intact - Neck Neck: Present: supple, normal ROM - Respiratory Respiratory: bilateral: diminished, rhonchi, negative: rales, wheezing - Cardiovascular Rhythm: regular Heart Sounds: Present: S1 & S2 - Extremities Extremities: no ischemia, No edema - Abdominal General gastrointestinal: soft, non-tender, non-distended, normal bowel sounds - Integumentary Integumentary: Present: clear, warm - Psychiatric Psychiatric: other (On vent) - Neurologic Neurologic: other (On vent) Results - Labs CBC & Chem 7: 07/29/19 10:06 07/29/19 04:45 Labs: Laboratory Last Values WBC 9.5 K/mm3 (4.5-11.0) 07/29/19 10:06 RBC 2.40 M/mm3 (3.65-5.03) L 07/29/19 10:06 Hgb 7.3 gm/dl (11.8-15.2) L 07/29/19 10:06 Hct 22.8 % (35.5-45.6) L 07/29/19 10:06 MCV 95 fl (84-94) H 07/29/19 10:06 MCH 30 pg (28-32) 07/29/19 10:06 MCHC 32 % (32-34) 07/29/19 10:06 RDW 21.2 % (13.2-15.2) H 07/29/19 10:06 Plt Count 262 K/mm3 (140-440) 07/29/19 10:06 Lymph % (Auto) 11.0 % (13.4-35.0) L 07/29/19 10:06 [place] % (Auto) 11.1 % (0.0-7.3) H 07/29/19 10:06 Eos % (Auto) 2.9 % (0.0-4.3) 07/29/19 10:06 Baso % (Auto) 2.3 % (0.0-1.8) H 07/29/19 10:06 Lymph # 1.0 K/mm3 (1.2-5.4) L 07/29/19 10:06 [place] # 1.1 K/mm3 (0.0-0.8) H 07/29/19 10:06 Eos # 0.3 K/mm3 (0.0-0.4) 07/29/19 10:06 Baso # 0.2 K/mm3 (0.0-0.1) H 07/29/19 10:06 Add Manual Diff Complete 07/25/19 04:05 Total Counted 100 07/25/19 04:05 Seg Neutrophils % 72.7 % (40.0-70.0) H 07/29/19 10:06 Seg Neuts % (Manual) 76.0 % (40.0-70.0) H 07/25/19 04:05 Band Neutrophils % 0 % 07/25/19 04:05 Lymphocytes % (Manual) 9.0 % (13.4-35.0) L 07/25/19 04:05 Reactive Lymphs % (Man) 0 % 07/25/19 04:05 Monocytes % (Manual) 11.0 % (0.0-7.3) H 07/25/19 04:05 Eosinophils % (Manual) 2.0 % (0.0-4.3) 07/25/19 04:05 Basophils % (Manual) 0 % (0.0-1.8) 07/25/19 04:05 Metamyelocytes % 2.0 % 07/25/19 04:05 Myelocytes % 0 % 07/25/19 04:05 Promyelocytes % 0 % 07/25/19 04:05 Blast Cells % 0 % 07/25/19 04:05 Nucleated RBC % Not Reportable 07/25/19 04:05 Seg Neutrophils # 6.9 K/mm3 (1.8-7.7) 07/29/19 10:06 Seg Neutrophils # Man 8.7 K/mm3 (1.8-7.7) H 07/25/19 04:05 Band Neutrophils # 0.0 K/mm3 07/25/19 04:05 Lymphocytes # (Manual) 1.0 K/mm3 (1.2-5.4) L 07/25/19 04:05 Abs React Lymphs (Man) 0.0 K/mm3 07/25/19 04:05 Monocytes # (Manual) 1.3 K/mm3 (0.0-0.8) H 07/25/19 04:05 Eosinophils # (Manual) 0.2 K/mm3 (0.0-0.4) 07/25/19 04:05 Basophils # (Manual) 0.0 K/mm3 (0.0-0.1) 07/25/19 04:05 Metamyelocytes # 0.2 K/mm3 07/25/19 04:05 Myelocytes # 0.0 K/mm3 07/25/19 04:05 Promyelocytes # 0.0 K/mm3 07/25/19 04:05 Blast Cells # 0.0 K/mm3 07/25/19 04:05 WBC Morphology Not Reportable 07/25/19 04:05 Hypersegmented Neuts Not Reportable 07/25/19 04:05 Hyposegmented Neuts Not Reportable 07/25/19 04:05 Hypogranular Neuts Not Reportable 07/25/19 04:05 Smudge Cells Not Reportable 07/25/19 04:05 Toxic Granulation Not Reportable 07/25/19 04:05 Toxic Vacuolation Not Reportable 07/25/19 04:05 Dohle Bodies Not Reportable 07/25/19 04:05 Pelger-Huet Anomaly Not Reportable 07/25/19 04:05 Mack Rods Not Reportable 07/25/19 04:05 Platelet Estimate Consistent w auto 07/25/19 04:05 Clumped Platelets Not Reportable 07/25/19 04:05 Plt Clumps, EDTA Not Reportable 07/25/19 04:05 Large Platelets Not Reportable 07/25/19 04:05 Giant Platelets Not Reportable 07/25/19 04:05 Platelet Satelliting Not Reportable 07/25/19 04:05 Plt Morphology Comment Not Reportable 07/25/19 04:05 RBC Morphology Not Reportable 07/25/19 04:05 Dimorphic RBCs Not Reportable 07/25/19 04:05 Polychromasia Not Reportable 07/25/19 04:05 Hypochromasia 1+ 07/25/19 04:05 Poikilocytosis Not Reportable 07/25/19 04:05 Anisocytosis Few 07/25/19 04:05 Microcytosis Not Reportable 07/25/19 04:05 Macrocytosis Not Reportable 07/25/19 04:05 Spherocytes Not Reportable 07/25/19 04:05 Pappenheimer Bodies Not Reportable 07/25/19 04:05 Sickle Cells Not Reportable 07/25/19 04:05 Target Cells Not Reportable 07/25/19 04:05 Tear Drop Cells Not Reportable 07/25/19 04:05 Ovalocytes Not Reportable 07/25/19 04:05 Helmet Cells Not Reportable 07/25/19 04:05 [place] Bodies Not Reportable 07/25/19 04:05 [place] Rings Not Reportable 07/25/19 04:05 [place] Cells Not Reportable 07/25/19 04:05 Bite Cells Not Reportable 07/25/19 04:05 Crenated Cell Not Reportable 07/25/19 04:05 Elliptocytes Not Reportable 07/25/19 04:05 Acanthocytes (Spur) Not Reportable 07/25/19 04:05 Rouleaux Not Reportable 07/25/19 04:05 Hemoglobin C Crystals Not Reportable 07/25/19 04:05 Schistocytes Rare 07/25/19 04:05 Malaria parasites Not Reportable 07/25/19 04:05 Víctor Bodies Not Reportable 07/25/19 04:05 Hem Pathologist Commnt No 07/25/19 04:05 PT 20.2 Sec. (12.2-14.9) H 07/29/19 04:45 INR 1.69 (0.87-1.13) H 07/29/19 04:45 APTT 47.8 Sec. (24.2-36.6) H 07/12/19 15:08 ABG pH 7.457 pH Units (7.350-7.450) H 07/25/19 05:27 ABG pCO2 39.4 mm Hg 07/25/19 05:27 ABG pO2 75.5 mm Hg (80.0-90.0) L 07/25/19 05:27 ABG HCO3 27.2 mmol/L (20.0-26.0) H 07/25/19 05:27 ABG O2 Saturation 97.1 % (95.0-99.0) 07/25/19 05:27 ABG O2 Content 9.4 (0.0-44) 07/25/19 05:27 ABG Base Excess 3.1 mmol/L (-2.0-3.0) H 07/25/19 05:27 ABG Hemoglobin 7.0 gm/dl (14.0-18.0) L 07/25/19 05:27 ABG Carboxyhemoglobin 2.2 % (0.0-5.0) 07/25/19 05:27 ABG Methemoglobin 0.5 % (0.0-1.5) 07/25/19 05:27 Oxyhemoglobin 94.4 % (95.0-99.0) L 07/25/19 05:27 FiO2 30 % 07/25/19 05:27 Sodium 148 mmol/L (137-145) H 07/29/19 04:45 Potassium 4.1 mmol/L (3.6-5.0) 07/29/19 04:45 Chloride 111.8 mmol/L (98-107) H 07/29/19 04:45 Carbon Dioxide 25 mmol/L (22-30) 07/29/19 04:45 Anion Gap 15 mmol/L 07/29/19 04:45 BUN 29 mg/dL (9-20) H 07/29/19 04:45 Creatinine 1.1 mg/dL (0.8-1.5) 07/29/19 04:45 Estimated GFR > 60 ml/min 07/29/19 04:45 BUN/Creatinine Ratio 26 % 07/29/19 04:45 Glucose 104 mg/dL (75-100) H 07/29/19 04:45 POC Glucose 122 (70-105) H 07/27/19 01:17 Calcium 8.8 mg/dL (8.4-10.2) 07/29/19 04:45 Phosphorus 2.70 mg/dL (2.5-4.5) 07/24/19 07:03 Magnesium 1.80 mg/dL (1.7-2.3) 07/29/19 04:45 Iron 15 ug/dL (49-181) L 07/15/19 06:30 TIBC 186 mcg/dL (250-450) L 07/15/19 06:30 Ferritin 428.2 ng/mL (13.0-400.0) H 07/15/19 06:30 Total Bilirubin 1.10 mg/dL (0.1-1.2) 07/18/19 05:40 Direct Bilirubin 0.7 mg/dL (0-0.2) H 07/18/19 05:40 Indirect Bilirubin 0.4 mg/dL 07/18/19 05:40 AST 94 units/L (5-40) H 07/18/19 05:40 ALT 16 units/L (7-56) 07/18/19 05:40 Alkaline Phosphatase 159 units/L (35-129) H 07/18/19 05:40 Lactate Dehydrogenase 294 units/L (91-180) H 07/18/19 05:40 Total Creatine Kinase 59 units/L (55-170) 07/14/19 07:16 Troponin T 0.188 ng/mL (0.00-0.029) H* 07/12/19 17:04 NT-Pro-B Natriuret Pep > 49127 pg/mL (0-450) H 07/12/19 15:08 Serum Total Protein 5.9 g/dL (6.1-8.1) L 07/23/19 05:30 Total Protein 5.6 g/dL (6.3-8.2) L D 07/18/19 05:40 Albumin 2.2 g/dL (3.8-4.8) L 07/23/19 05:30 Albumin/Globulin Ratio 0.8 % 07/18/19 05:40 Wsppi-9-Kcmvddntx 0.5 g/dL (0.2-0.3) H 07/23/19 05:30 Xmgex-1-Wcbkcbbbb 0.5 g/dL (0.5-0.9) 07/23/19 05:30 Beta Globulins 0.4 g/dL (0.2-0.5) 07/23/19 05:30 Gamma Globulins 2.0 g/dL (0.8-1.7) H 07/23/19 05:30 Abnorm Protein Band 1 see below 07/23/19 05:30 PEP Interpretation see below H 07/23/19 05:30 Triglycerides 128 mg/dL (2-149) 07/12/19 15:08 Cholesterol 121 mg/dL (50-199) 07/12/19 15:08 LDL Cholesterol Direct 40 mg/dL (50-130) L 07/12/19 15:08 HDL Cholesterol 44 mg/dL (40-59) 07/12/19 15:08 Cholesterol/HDL Ratio 2.75 % 07/12/19 15:08 Vitamin B12 960.4 pg/mL (211-911) H 07/21/19 08:00 Folate 6.18 ng/mL (7.3-26.0) L 07/21/19 08:00 Procalcitonin 8.19 ng/mL (<0.15) 07/23/19 05:30 Urine Color Yellow (Yellow) 07/28/19 15:00 Urine Turbidity Clear (Clear) 07/28/19 15:00 Urine pH 7.0 (5.0-7.0) 07/28/19 15:00 Ur Specific [place] 1.013 (1.003-1.030) 07/28/19 15:00 Urine Protein 100 mg/dl mg/dL (Negative) 07/28/19 15:00 Urine Glucose (UA) Neg mg/dL (Negative) 07/28/19 15:00 Urine Ketones Neg mg/dL (Negative) 07/28/19 15:00 Urine Blood Sm (Negative) 07/28/19 15:00 Urine Nitrite Neg (Negative) 07/28/19 15:00 Urine Bilirubin Neg (Negative) 07/28/19 15:00 Urine Urobilinogen < 2.0 mg/dL (<2.0) 07/28/19 15:00 Ur Leukocyte Esterase Neg (Negative) 07/28/19 15:00 Urine WBC (Auto) 2.0 /HPF (0.0-6.0) 07/28/19 15:00 Urine RBC (Auto) 2.0 /HPF (0.0-6.0) 07/28/19 15:00 U Epithel Cells (Auto) < 1.0 /HPF (0-13.0) 07/28/19 15:00 Urine Bacteria (Auto) 1+ /HPF (Negative) 07/14/19 17:28 Urine Mucus Few /HPF 07/14/19 17:28 Urine Yeast (Budding) Few /HPF 07/14/19 17:28 Urine Eosinophils Rare seen (None Seen) 07/14/19 17:28 Urine Creatinine 106.2 mg/dL (0.1-20.0) H 07/14/19 17:28 Protein/Creatinin Ratio 1.66 07/14/19 16:40 Urine Sodium 67 mmol/L 07/14/19 17:28 Urine Urea Nitrogen 100 07/14/19 17:28 Urine Total Protein 173 mg/dL (5-11.8) H 07/14/19 16:40 Fluid Type Paracentesis 07/14/19 10:45 Fluid Color Bloody 07/14/19 10:45 Fluid Appearance Bloody 07/14/19 10:45 Fluid WBC 120 /mm3 07/14/19 10:45 Fluid RBC 84870 /mm3 07/14/19 10:45 Fluid Seg Neutrophils 33.0 % 07/14/19 10:45 Fluid Lymphocytes 17.0 % 07/14/19 10:45 Fluid Reactive Lymphs 0 % 07/14/19 10:45 Fluid Monocytes 50.0 % 07/14/19 10:45 Fluid Eosinophils 0 % 07/14/19 10:45 Fluid Basophils 0 % 07/14/19 10:45 Fluid Glucose 93 mg/dL (40-70) H 07/14/19 10:45 Fluid Total Protein 4.7 (15.0-45.0) L 07/14/19 10:45 Fluid LDH 07/14/19 10:45 Random Vancomycin 14.5 ug/mL (0-40.0) 07/19/19 05:15 SHANNA Screen Negative (Negative) 07/14/19 11:50 Proteinase 3 (PR3) Ab <1.0 AI (<1.0) 07/14/19 11:50 Myeloperoxidase Ab <1.0 AI (<1.0) 07/14/19 11:50 Glomerular Base Mem IgG See scanned result 07/14/19 11:50 Complement C3 124 mg/dL (82-185) 07/14/19 11:50 Complement C4 28 mg/dL (15-53) 07/14/19 11:50 Hepatitis A IgM Ab Non-reactive (NonReactive) 07/12/19 17:49 Hep Bs Antigen Non-reactive (Negative) 07/14/19 11:50 Hep B Core IgM Ab Non-reactive (NonReactive) 07/12/19 17:49 Hepatitis C Antibody Non-reactive (NonReactive) 07/14/19 11:50 HIV-1 Antibody See scanned result 07/14/19 11:50 HIV-2 Ab (Immunoblot) See scanned result 07/14/19 11:50 Schistocytes Smear Rare 07/18/19 05:40 Blood Type A POSITIVE 07/28/19 16:44 Antibody Screen Negative 07/28/19 16:44 Crossmatch See Detail 07/28/19 16:44 Active Medications - Current Medications Current Medications: Generic Name Dose Route Start Last Admin Trade Name Freq PRN Reason Stop Dose Admin Acetaminophen 650 mg 07/20/19 16:56 07/29/19 03:52 Tylenol FEEDTUBE 650 mg Q6H PRN Administration Fever >101 Albuterol 2.5 mg 07/14/19 04:54 07/16/19 13:42 Proventil IH 2.5 mg Q4HRT PRN Administration Shortness Of Breath Lipase/Protease/Amylase 1 each 07/18/19 13:20 Pancreaze 10,500 Unit FEEDTUBE PRN PRN For Clogged Feeding Tube Aspirin 81 mg 07/28/19 10:00 07/29/19 09:11 Baby Aspirin FEEDTUBE 81 mg QDAY TERRELL Administration Fentanyl 25 mcg 07/25/19 10:51 07/28/19 11:35 Sublimaze IV 25 mcg Q2HR PRN Administration Pain, Moderate (4-6) Glycopyrrolate 0.2 mg 07/27/19 16:00 07/29/19 09:32 Robinul IV 0.2 mg Q6H TERRELL Administration Haloperidol Lactate 5 mg 07/12/19 21:35 07/24/19 12:00 Haldol IV 5 mg Q1H PRN Administration Unrespon. to mult. doses BZD's Hydralazine HCl 10 mg 07/23/19 10:46 07/27/19 17:30 Apresoline IV 10 mg Q4HR PRN Administration BP >160/100 Dextrose 1,000 mls @ 42 mls/hr 07/26/19 15:00 07/29/19 09:47 D5w IV 42 mls/hr DIRECT TERRELL Administration Phytonadione 10 mg/ Sodium 51 mls @ 100 mls/hr 07/28/19 16:30 07/28/19 17:05 Chloride IV 07/30/19 17:01 Infused Q24H TERRELL Infusion Lansoprazole 30 mg 07/18/19 11:00 07/29/19 09:11 Prevacid Solutab FEEDTUBE 30 mg QDAY TERRELL Administration Lorazepam 1 mg 07/27/19 11:49 07/28/19 09:42 Ativan IV 1 mg Q2H PRN Administration Agitation Multivit/Ca Carb/B Cmplx/FA/Prenat 1 cap 07/29/19 10:00 07/29/19 09:11 Renal Caps PO 1 cap QDAY TERRELL Administration Scopolamine 1 each 07/23/19 11:00 07/29/19 10:38 Transderm-Scop TD 1 each Q3D TERRELL Administration Simple Syrup 15 ml 07/18/19 13:20 Simple Syrup FEEDTUBE PRN PRN Hypoglycemia Simple Syrup 30 ml 07/18/19 13:20 Simple Syrup FEEDTUBE PRN PRN Hypoglycemia Sodium Bicarbonate 325 mg 07/18/19 13:20 Sodium Bicarbonate FEEDTUBE PRN PRN For Clogged Feeding Tube Thiamine HCl 100 mg 07/22/19 10:00 07/29/19 09:11 Vitamin B-1 PO 100 mg QDAY TERRELL Administration Valsartan 80 mg 07/27/19 15:16 07/29/19 09:12 Diovan PO 80 mg BID TERRELL Administration Nutrition/Malnutrition Assess - Dietary Evaluation Nutrition/Malnutrition Findings: Nutrition Notes Start: 07/18/19 12:09 Freq: Status: Active Protocol: Document 07/24/19 10:53 MK (Rec: 07/24/19 10:57 MK [id number]) Co-Sign 07/24/19 10:53 LP Nutrition Notes Initial or Follow up Reassessment Current Diagnosis Acute Kidney Injury, Hypertension,Heart Failure, Respiratory Failure Other Pertinent Diagnosis on HD , metabolic acidosis, pnuemonia Current Diet Nepro at 41ml/hr Labs/Tests K 3.4 BUN 70 Cr 1.8 Pertinent Medications Reviewed Height 5 ft 10 in Weight 102 kg [place] Body Weight (kg) 75.45 BMI 32.2 Subjective/Other Information Pt tolerating Nepro at 41ml/hr . Pt remains on vent. Percent of energy/protein needs met: 100%/53% Burn Absent Trauma Absent GI Symptoms None Difficulty In Swallowing,Chewing Current % PO Negligible Minimum of two criteria Yes Energy Intake (severe) < or equal to 50% Estimated Energy Requirement > or equal to 5 days Muscle Mass Mild Depletion (non-severe) Fluid Accumulation Moderate to Severe (severe) Reduced Pack Puller Strength Measurably Reduced (severe) #2 Nutrition Diagnosis Malnutrition Diagnosis Progress(for reassessment Continues documentation) #1 Nutrition Diagnosis Inadequate oral intake Diagnosis Progress(for reassessment Continues documentation) Is patient on ventilator? Yes Is Patient Ambulatory and/or Out of Bed No REE-([place]-confined to bed) 2272.980 Kcal/Kg value to use for calculation 17 Approximate Energy Requirements Using 1734 kcal/Kg Calculation Used for Recommendations Kcal/kg Additional Notes Protein needs: 150 g (> 2 g/ kgIBW) Fluid needs: 1ml/kcal or per MD Nutrition Intervention Change Diet Order: TF Nutrition Support: Nepro 1.8 at 41 ml/hr. Water flush of 130 ml q4h. Kcal 1,771 Protein (gm) 80 Fluid (mL) 715 Goal #1 Meet at least 75% of protein and energy needs Anticipated Discharge Needs: unble to determine at this time Follow-Up By: 07/31/19 Additional Comments Follow for stable TF tolerance
[2019-07-29] MEDS ORDERED: SODIUM CHLORIDE 0.9% 1000 ML 1,000 ML ONE (12:38)
[2019-07-29] MEDS ORDERED: propofoL 200 MG/20 ML VIAL IV ONE ×2 (12:39→16:18)
--- NOTE | 2019-07-29 13:05 | Anesthesia Day of Surgery ---
Anesthesia Day of Surgery - Day of Surgery Patient Examined: Yes Patient H&P Reviewed: Yes Patient is NPO: Yes
--- NOTE | 2019-07-29 13:34 | Progress Note ---
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 Subjective Date of service: 07/29/19 Principal diagnosis: anemia Interval history: No interval changes. Awaits PEG and trach placement. Objective Vital Signs Temp Pulse Pulse Resp BP Pulse Ox 07/29/19 11:01 106 H 18 93/58 98 07/29/19 10:00 111 H 19 145/77 98 07/29/19 09:12 111 H 148/79 07/29/19 09:00 110 H 22 148/79 99 07/29/19 08:00 100.8 F H 105 H 111 H 19 146/78 94 07/29/19 07:00 106 H 16 156/81 94 07/29/19 06:00 114 H 24 145/82 94 07/29/19 05:00 105 H 18 141/76 95 07/29/19 04:01 130 H 25 H 154/83 95 07/29/19 04:00 131 H 131 H 19 100 07/29/19 03:56 100.2 F H 07/29/19 03:54 117 H 130/69 100 07/29/19 03:00 97 H 16 138/71 96 07/29/19 02:00 112 H 15 156/88 07/29/19 01:00 99 H 15 100 07/29/19 00:06 116 H 129/68 100 07/29/19 00:00 100.1 F H 102 H 102 H 16 129/68 97 07/28/19 23:31 100.8 F H 102 H 16 135/73 100 07/28/19 23:04 100.7 F H 106 H 18 139/71 100 07/28/19 23:00 108 H 15 139/71 96 07/28/19 22:34 100.7 F H 106 H 22 133/68 100 07/28/19 22:04 100.8 F H 109 H 17 132/72 100 07/28/19 22:00 112 H 22 132/72 100 07/28/19 21:58 113 H 22 134/69 100 07/28/19 21:47 107 H 141/73 100 07/28/19 21:34 112 H 20 141/73 100 07/28/19 21:10 96 H 140/72 07/28/19 21:04 100.7 F H 110 H 22 133/69 100 07/28/19 21:03 101.2 F H 105 H 19 140/72 100 07/28/19 21:00 101 H 28 H 140/72 96 07/28/19 20:34 100.7 F H 104 H 20 136/70 100 07/28/19 20:04 100.8 F H 106 H 20 128/70 100 07/28/19 20:02 100.7 F H 109 H 24 132/63 100 07/28/19 20:00 100.0 F H 107 H 107 H 21 132/63 100 07/28/19 19:50 107 H 22 128/68 100 07/28/19 19:49 100.6 F H 108 H 19 128/68 100 07/28/19 19:40 111 H 20 128/68 100 07/28/19 19:30 110 H 26 H 128/68 07/28/19 19:20 120 H 33 H 137/74 99 07/28/19 19:10 109 H 15 137/74 100 07/28/19 19:00 108 H 19 137/74 97 07/28/19 18:00 112 H 26 H 136/70 97 07/28/19 17:00 92 H 17 127/61 97 07/28/19 16:00 100.5 F H 99 H 110 H 24 129/63 98 07/28/19 15:08 99 H 118/61 99 07/28/19 15:00 94 H 15 118/61 97 07/28/19 14:00 100.5 F H 112 H 19 140/84 98 - Physical Examination General: Other (unresponsive on the vent) Cardiac: Positive: Tachycardia - Labs and Meds Coagulation 07/28/19 07/29/19 Range/Units 13:31 04:45 PT 21.4 H 20.2 H (12.2-14.9) Sec. INR 1.82 H 1.69 H (0.87-1.13) CBC 07/28/19 07/29/19 Range/Units 12:29 10:06 WBC 11.3 H 9.5 (4.5-11.0) K/mm3 RBC 2.16 L 2.40 L (3.65-5.03) M/mm3 Hgb 6.7 L 7.3 L (11.8-15.2) gm/dl Hct 20.9 L 22.8 L (35.5-45.6) % Plt Count 294 262 (140-440) K/mm3 Lymph # Carpet Installer Helper 1.0 L Marshall # Carpet Installer Helper 1.1 H Eos # Carpet Installer Helper 0.3 Baso # Carpet Installer Helper 0.2 H Comprehensive Metabolic Panel 07/29/19 Range/Units 04:45 Sodium 148 H (137-145) mmol/L Potassium 4.1 (3.6-5.0) mmol/L Chloride 111.8 H (98-107) mmol/L Carbon Dioxide 25 (22-30) mmol/L BUN 29 H (9-20) mg/dL Creatinine 1.1 (0.8-1.5) mg/dL Glucose 104 H (75-100) mg/dL Calcium 8.8 (8.4-10.2) mg/dL
--- NOTE | 2019-07-29 13:47 | Event Note ---
Date: 07/29/19 Pt scheduled for trach/peg today. I updated patient's father Alfred Carreon and he is still agreeable to proceed with procedures.
--- NOTE | 2019-07-29 13:58 | Progress Note ---
Assessment and Plan Acute Kidney Injury possibly prerenal/ATN, cardiorenal syndrome, diuretics, ACEI, AIN from NSAIDs, ? underlying CKD process, no obstruction Hyperkalemia High Anion Gap Metabolic Acidosis Acute respiratory failure LLL PNA Anemia Hypomagnesemia S/p Cardiac Arrest Acute on chronic systolic CHF Questionable Anoxic Brain Injury Plan: - BRODIE resolved, good UOP - Replete magnesium - On free water 250 ml via NGT q6hrs for hypernatremia - S/p removal of Vas Catheter - no need for HD at this time - Secondary GN and vasculitis work up ordered, so far negative for ANCA, SHANNA, normal complement, negative HCV, HBV, HIV, anti-GBM, but has rare schisto with elevated LDH, consulted hematology - Renal US mentioned moderate ascites, but no hydronephrosis - Neuro evaluated pt, f/u recs - Planning on Trach and PEG on 07/29/19 - S/p US guided paracentesis with removal of 3200 ml on 07/15/19 - Renally dose medications - A[place]illo Catheter: No will sign off. please re-consult if needed Subjective Date of service: 07/29/19 Principal diagnosis: anemia Interval history: on the vent, no family at bedside Objective - Vital Signs Vital signs: Vital Signs - 12hr 07/29/19 07/29/19 07/29/19 02:00 03:00 03:54 Temperature Pulse Rate 112 H 97 H 117 H Pulse Rate [ From Monitor] Respiratory 15 16 Rate Blood Pressure 156/88 138/71 130/69 O2 Sat by Pulse 96 100 Oximetry 07/29/19 07/29/19 07/29/19 03:56 04:00 04:01 Temperature 100.2 F H Pulse Rate 131 H 130 H Pulse Rate [ 131 H From Monitor] Respiratory 19 25 H Rate Blood Pressure 154/83 O2 Sat by Pulse 100 95 Oximetry 07/29/19 07/29/19 07/29/19 05:00 06:00 07:00 Temperature Pulse Rate 105 H 114 H 106 H Pulse Rate [ From Monitor] Respiratory 18 24 16 Rate Blood Pressure 141/76 145/82 156/81 O2 Sat by Pulse 95 94 94 Oximetry 07/29/19 07/29/19 07/29/19 08:00 09:00 09:12 Temperature 100.8 F H Pulse Rate 105 H 110 H 111 H Pulse Rate [ 111 H From Monitor] Respiratory 19 22 Rate Blood Pressure 146/78 148/79 148/79 O2 Sat by Pulse 94 99 Oximetry 07/29/19 07/29/19 07/29/19 10:00 11:01 12:19 Temperature Pulse Rate 111 H 106 H 106 H Pulse Rate [ From Monitor] Respiratory 19 18 Rate Blood Pressure 145/77 93/58 93/58 O2 Sat by Pulse 98 98 98 Oximetry 07/29/19 13:00 Temperature Pulse Rate Pulse Rate [ From Monitor] Respiratory Rate Blood Pressure O2 Sat by Pulse 100 Oximetry - Lab 07/29/19 10:06 07/29/19 04:45 Most recent lab results ABG pH 7.457 pH Units (7.350-7.450) H 07/25/19 05:27 ABG pCO2 39.4 mm Hg 07/25/19 05:27 ABG pO2 75.5 mm Hg (80.0-90.0) L 07/25/19 05:27 ABG HCO3 27.2 mmol/L (20.0-26.0) H 07/25/19 05:27 ABG O2 Saturation 97.1 % (95.0-99.0) 07/25/19 05:27 Calcium 8.8 mg/dL (8.4-10.2) 07/29/19 04:45 Phosphorus 2.70 mg/dL (2.5-4.5) 07/24/19 07:03 Magnesium 1.80 mg/dL (1.7-2.3) 07/29/19 04:45 Urine Creatinine 106.2 mg/dL (0.1-20.0) H 07/14/19 17:28 Urine Sodium 67 mmol/L 07/14/19 17:28 Urine Total Protein 173 mg/dL (5-11.8) H 07/14/19 16:40 Medications & Allergies - Medications Allergies/Adverse Reactions: Allergies No Known Allergies Allergy (Verified 07/01/19 11:20) Home Medications: Home Medications Medication Instructions Recorded Confirmed Last Taken Type Magnesium Oxide 400 mg PO BIDAC #60 tablet 12/07/16 07/13/19 1 Day Ago Rx ~09/16/17 Thiamine [Vitamin B-1] 100 mg PO QDAY #30 tablet 12/07/16 07/13/19 2 Days Ago Rx ~09/14/17 100 mg Lisinopril [Zestril] 20 mg PO DAILY #30 tablet 09/18/17 07/13/19 Unknown Rx Pantoprazole [Protonix TAB] 40 mg PO BID #60 tablet 09/18/17 07/13/19 Unknown Rx Aspirin [Aspirin BABY CHEW TAB] 81 mg PO QDAY #30 tab.chew 07/05/19 07/13/19 Unknown Rx Furosemide [Lasix TAB] 40 mg PO BID #60 tablet 07/05/19 07/13/19 Unknown Rx Nitroglycerin [Nitrostat] 0.4 mg SL .Q5MIN PRN #10 tablet 07/05/19 07/13/19 Unknown Rx Spironolactone [Aldactone] 12.5 mg PO QDAY #30 tablet 07/05/19 07/13/19 Unknown Rx carvediloL [Coreg] 6.25 mg PO BID #60 tablet 07/05/19 07/13/19 Unknown Rx lisinopriL [Zestril TAB] 20 mg PO QDAY #30 tablet 07/05/19 07/13/19 Unknown Rx Active Medications: Generic Name Dose Route Start Last Admin Trade Name Freq PRN Reason Stop Dose Admin Acetaminophen 650 mg 07/20/19 16:56 07/29/19 12:15 Tylenol FEEDTUBE 650 mg Q6H PRN Administration Fever >101 Albuterol 2.5 mg 07/14/19 04:54 07/16/19 13:42 Proventil IH 2.5 mg Q4HRT PRN Administration Shortness Of Breath Lipase/Protease/Amylase 1 each 07/18/19 13:20 Pancrenarinder Moeller 10,500 Unit FEEDTUBE PRN PRN For Clogged Feeding Tube Aspirin 81 mg 07/28/19 10:00 07/29/19 09:11 Baby Aspirin FEEDTUBE 81 mg QDAY TERRELL Administration Fentanyl 25 mcg 07/25/19 10:51 07/28/19 11:35 Sublimaze IV 25 mcg Q2HR PRN Administration Pain, Moderate (4-6) Glycopyrrolate 0.2 mg 07/27/19 16:00 07/29/19 09:32 Robinul IV 0.2 mg Q6H TERRELL Administration Haloperidol Lactate 5 mg 07/12/19 21:35 07/24/19 12:00 Haldol IV 5 mg Q1H PRN Administration Unrespon. to mult. doses BZD's Hydralazine HCl 10 mg 07/23/19 10:46 07/27/19 17:30 Apresoline IV 10 mg Q4HR PRN Administration BP >160/100 Dextrose 1,000 mls @ 42 mls/hr 07/26/19 15:00 07/29/19 09:47 D5w IV 42 mls/hr DIRECT TERRELL Administration Phytonadione 10 mg/ Sodium 51 mls @ 100 mls/hr 07/28/19 16:30 07/28/19 17:05 Chloride IV 07/30/19 17:01 Infused Q24H TERRELL Infusion Lansoprazole 30 mg 07/18/19 11:00 07/29/19 09:11 Prevacid Solutab FEEDTUBE 30 mg QDAY TERRELL Administration Lorazepam 1 mg 07/27/19 11:49 07/28/19 09:42 Ativan IV 1 mg Q2H PRN Administration Agitation Multivit/Ca Carb/B Cmplx/FA/Prenat 1 cap 07/29/19 10:00 07/29/19 09:11 Renal Caps PO 1 cap QDAY TERRELL Administration Scopolamine 1 each 07/23/19 11:00 07/29/19 10:38 Transderm-Scop TD 1 each Q3D TERRELL Administration Simple Syrup 15 ml 07/18/19 13:20 Simple Syrup FEEDTUBE PRN PRN Hypoglycemia Simple Syrup 30 ml 07/18/19 13:20 Simple Syrup FEEDTUBE PRN PRN Hypoglycemia Sodium Bicarbonate 325 mg 07/18/19 13:20 Sodium Bicarbonate FEEDTUBE PRN PRN For Clogged Feeding Tube Thiamine HCl 100 mg 07/22/19 10:00 07/29/19 09:11 Vitamin B-1 PO 100 mg QDAY TERRELL Administration Valsartan 80 mg 07/27/19 15:16 07/29/19 09:12 Diovan PO 80 mg BID TERRELL Administration
[2019-07-29] MEDS ORDERED: LIDOCAINE MPF (2%) 20 MG/1 ML VIAL 5 ML ONE (14:00)
--- NOTE | 2019-07-29 14:24 | Progress Note ---
Assessment and Plan Cultures: 07/12/2019 blood culture: Negative 07/14/2019 urine culture: mixed growth 07/17/2019 tracheal aspirate: E coli 07/28/2019 urine culture: pending 07/28/2019 blood culture: pending A/P: 48/M with deafness, HTN, CHF, anxiety, depression, COPD was admitted to the hospital on 07/12/2019 with shortness of breath, found to have hypoxia and renal failure and was started on urgent dialysis, now with: #Shock, following PEA cardiac arrest #Bilateral multifocal pneumonia, acute respiratory failure: Possibly aspiration v/s lung contusion from CPR following cardiac arrest. #Acute renal failure: Dialysis requiring. Nephrology following, evaluating for glomerulonephritis and vasculitis. Patient also has rare schistocytes in peripheral blood along with few eosinophils in urine. Renally dose abx. #CHF #Acute encephalopathy: post arrest. Recs: -Remain off antibiotics for now -Follow-up urine and blood cultures - follow up fever and WBC - possible central fevers - Poor prognosis. -For trach and PEG today, with placement to nursing facility - leery of empiric antibiotics in this patient given severe medical comorbidities and poor prognosis. - ordered procalcitonin in AM, expect to be elevated, but trend relative to last value may be indicative of need for empiric antibiotics. Will follow. Salo Morgan MD [facility] M: [phone] O: [phone] F: [phone] Subjective Date of service: 07/29/19 Principal diagnosis: anemia Interval history: Remains febrile at 100.8 with a normal white count. Not currently on antibiotics. Objective - Exam Narrative Exam: Constitutional: Intubated Head, Ears, Nose: Normocephalic, atraumatic. Cardiovascular: S1, S2 normal. Respiratory: Good air entry, clear to auscultation bilaterally GI: Soft, non-tender; bowel sounds + Musculoskeletal: No pedal edema, no cyanosis. Skin: No rash or abscess Hem/Lymphatic: No palpable cervical or supraclavicular nodes. No lymphangitis Psych: Non-responsive. Neurological: Non-responsive - Constitutional Vitals: Vital Signs Temp Pulse Resp BP Pulse Ox 100.8 F H 106 H 18 93/58 100 07/29/19 08:00 07/29/19 12:19 07/29/19 11:01 07/29/19 12:19 07/29/19 13:00 Temperature -Last 24 Hours Temperature 100.8 F Temperature 100.2 F Temperature 100.1 F Temperature 100.8 F Temperature 100.7 F Temperature 100.7 F Temperature 100.8 F Temperature 100.7 F Temperature 101.2 F Temperature 100.7 F Temperature 100.8 F Temperature 100.7 F Temperature 100.0 F Temperature 100.6 F Temperature 100.5 F - Labs CBC & Chem 7: 07/29/19 10:06 07/29/19 04:45 Labs: Abnormal lab results 07/28/19 07/29/19 07/29/19 Range/Units 16:44 04:45 04:45 RBC (3.65-5.03) M/mm3 Hgb (11.8-15.2) gm/dl Hct (35.5-45.6) % MCV (84-94) fl RDW (13.2-15.2) % Lymph % (Auto) (13.4-35.0) % [place] % (Auto) (0.0-7.3) % Baso % (Auto) (0.0-1.8) % Lymph # (1.2-5.4) K/mm3 [place] # (0.0-0.8) K/mm3 Baso # (0.0-0.1) K/mm3 Seg Neutrophils % (40.0-70.0) % PT 20.2 H (12.2-14.9) Sec. INR 1.69 H (0.87-1.13) Sodium 148 H (137-145) mmol/L Chloride 111.8 H (98-107) mmol/L BUN 29 H (9-20) mg/dL Glucose 104 H (75-100) mg/dL Crossmatch See Detail 07/29/19 Range/Units 10:06 RBC 2.40 L (3.65-5.03) M/mm3 Hgb 7.3 L (11.8-15.2) gm/dl Hct 22.8 L (35.5-45.6) % MCV 95 H (84-94) fl RDW 21.2 H (13.2-15.2) % Lymph % (Auto) 11.0 L (13.4-35.0) % [place] % (Auto) 11.1 H (0.0-7.3) % Baso % (Auto) 2.3 H (0.0-1.8) % Lymph # 1.0 L (1.2-5.4) K/mm3 [place] # 1.1 H (0.0-0.8) K/mm3 Baso # 0.2 H (0.0-0.1) K/mm3 Seg Neutrophils % 72.7 H (40.0-70.0) % PT (12.2-14.9) Sec. INR (0.87-1.13) Sodium (137-145) mmol/L Chloride (98-107) mmol/L BUN (9-20) mg/dL Glucose (75-100) mg/dL Crossmatch
--- NOTE | 2019-07-29 14:41 | Procedure Note ---
Date of procedure: 07/29/19 Pre-op diagnosis: VDRF Post-op diagnosis: same Procedure: Tracheostomy Findings: The patient was identified in the hospital bed in the ICU. Consent was verified on the chart timeout was performed. The neck was prepped and draped in usual sterile fashion. Anesthesia was administered. Dr. Chan performed fiberoptic bronchoscopy throughout the entire procedure (see separate procedure note). The patient's head was slightly extended and a shoulder roll placed across the shoulder blades. 1% lidocaine was infiltrated into the skin and subcutaneous tissue approximately 2 fingerbreadths above the jc. A 2 cm incision was made in a horizontal fashion using a 15 blade. Using a hemostat the soft tissues were bluntly dissected. The introducer needle was used to enter the trachea under direct visualization, through which the wire was passed down the trachea towards the jc. Introducer needle was then removed. The trachea was then serially dilated, after which a 8 Malt[place] Shiley tracheostomy tube was inserted. The balloon was inflated, patient placed back on ventilator, and tidal volumes assessed which were satisfactory. The bronchoscope was then placed through the tracheostomy and showed good positioning of the tracheostomy above the jc and no bleeding. The tracheostomy was sutured into place using 2-0 Prolene sutures. A drain sponge was placed between the skin and tracheostomy. The tracheostomy was secured to the patient's neck using a tracheostomy strap. A post op chest x-ray showed the tracheostomy in good positioning. There was consolidation on the left side and Dr. Chan performed bronchoscopy/suctioning (please see separate note). The repeat CXR showed better aeration. The patient tolerated the procedure well. All sharps were disposed of appropriately. Anesthesia: NEDRAA, local Surgeon: KSENIA FLORES Estimated blood loss: minimal Pathology: none Condition: stable Disposition: no change
--- NOTE | 2019-07-29 15:10 | XRay Report ---
CHEST 1 VIEW INDICATION: s/p tracheostomy COMPARISON: 07/28/2019 FINDINGS: Support devices: Endotracheal tube remains in good position. Nasogastric tube has been removed. Heart: Mildly enlarged but unchanged Lungs/Pleura: Loss of volume on the left, with leftward shift of the mediastinum and increased parenc hymal density in the left mid and lower lung. No definite acute disease in the right lung. IMPRESSION: 1. Interval development since yesterday of increased loss of volume of the left lung and increasing a ir space consolidation and atelectasis of the left lower lobe. Signer Name: Ghanshyam Naqvi MD Signed: 07/29/2019 3:06 PM Workstation Name: [id number]
[2019-07-29] MEDS: PHYTONADIONE(ADULT ONLY) 10 MG in SODIUM CHLORIDE 0.9% 50 ML IV SCH (16:30)
--- NOTE | 2019-07-29 16:42 | Procedure Note ---
Date of procedure: 07/29/19 Pre-op diagnosis: respiratory failure Post-op diagnosis: same Procedure: Bronchoscopy Consent was on the chart. Timeout was called. After adequate sedation was establish, flexible bronchoscope was introduced via the ETT. The airway was clear, but there was mucus in the ETT. ETT was intially at 23cm. We pulled it back to 18cm. Eventually, we ended up pulling it back to 17cm. Under bronchoscopic guidance, Dr. Collins performed the tracheostomy. Introducer needle, dilator, guidewire, larger dilators, and tracheostomy tube were all directly observed during the case. After the tracheostomy tube was inserted, bronchoscope was introduced via the trach tube and position was confirmed. There was minimal blood in the airway. The tip of the tube was at least 5cm above the jc. Pt tolerated the procedure well. There were no complications. The CXR post procedure showed the left lung to be gill out. We repeated the bronchoscopy and suctioned the airway. A large amount of secretions were suctioned out. The 2nd CXR showed improved aeration of the left lung. Pt was stable. Tolerated the repeat bronchoscopy well. Family aware. Findings: mucus in the ETT Anesthesia: MAC Surgeon: BARBARA VILLAFANA (Dennis performed trach) Estimated blood loss: minimal Pathology: none Condition: stable Disposition: ICU
--- NOTE | 2019-07-29 16:50 | Procedure Note ---
Date of procedure: 07/29/19 Pre-op diagnosis: respiratory failure Post-op diagnosis: same Procedure: PEG placement Co-Surgeons Dennis Villafana Anesth MAC (administered by anesthesia provider) EBL min Implant 20Fr pull PEG tube Procedure - timeout had already been performed. Consent was on the chart. Bite-block was placed. Endoscope was inserted. We intubated the esophagus. Scope was passed down to the stomach. Stomach was insufflated. We identified the area of transillumination in the body of stomach. Dr. Collins then prepped and draped that area. Local anesthetic was administered. Small incision was made. Introducer needle was passed into the stomach. Guidewire was passed which was grabbed with the snare and pulled back up to the mouth. PEG tube was attached. Dr. Collins pulled the PEG tube back into the stomach. Endoscope was reinserted. The button was visualized. There was no evidence of bleeding. There did not appear to be any excess pressure on the stomach. The rest of the stomach was inspected. First and second portions of duodenum were inspected. Esophagus was evaluated as the scope was being pulled out. No abnormalities were found. Patient tolerated the procedure well. There were no complications. The pelvic collar was at 2 cm. Patient was in stable condition at the end of the case in ICU. Findings: normal UGI anatomy Implants: 20Fr pull PEG tube Anesthesia: MAC Surgeon: BARBARA VILLAFANA (Co- Surgeon Dennis) Estimated blood loss: minimal Pathology: none Condition: stable Disposition: ICU
--- NOTE | 2019-07-29 16:53 | XRay Report ---
CHEST 1 VIEW INDICATION: trache placement COMPARISON: Earlier exam same day FINDINGS: Support devices: Endotracheal tube has been replaced with a tracheostomy tube, which appears in good position. Heart: Slightly enlarged but unchanged. Lungs/Pleura: Left lung loss of volume is much improved. However, there is still considerable atelect asis and consolidation in the left lower lung, with what appears to be acute disease in the left valentine hilar region. Appearance of the right lung is unchanged. IMPRESSION: 1. Significantly better aeration of the left lung following tracheostomy tube placement. 2. Persistent parenchymal disease in the left base and left perihilar region is very suggestive of pn eumonia. Signer Name: Ghanshyam Naqvi MD Signed: 07/29/2019 4:49 PM Workstation Name: [id number]
--- NOTE | 2019-07-29 19:21 | Progress Note ---
Assessment and Plan Assessment and plan: Acute hypoxic respiratory failure on MV > 96 hours, continue mechanical ventilator Unable to wean, trach and PEG today per surgery Acute on chronic systolic heart failure decompensation leading to respiratory failure: Meds optimized. Fluid was removed via dialysis, now has good urine output, improving Bilateral pneumonia; completed antibiotics on 07/25 Acute on chronic CHF, EF 25%. Medications optimized per cardiology, patient now appears to be improving Fluid overload, Ascites, status post paracentesis on 07/15, 3.2 L removed. Received dialysis. Severe ARF due to ATN, no longer needing HD. Nephrology input appreciated, has good urine output. HD cath now removed. acute metabolic encephalopathy, acute metabolic encephalopathy, poa, thought to be due to severe Uremia, but uremia improved and he still not responsive , needing restraints for agitation CVA; noted on MRI, optimize medications for secondary prevention, aspirin, statin, blood pressure control. 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 fib/a flutter on NSVT. Now resolved, no further medication or work-up required Hypokalemia; repleted Hypertensive urgency; continue to adjust BP meds Hypernatremia; continue free water via G-tube, added small amounts of D5 water given advanced heart failure History of nonadherence, alcohol abuse, plan to college admissions counselor patient to be his mentation improves. Copious oral secretions, cont scopolamine, add robinul full code Trach and PEG today Possible LTAC placement Critical care time 31 minutes Plan of care reviewed with the patient's nurse and the case management History Interval history: Patient seen and examined at the bedside medical records reviewed Patient is vent dependent, surgery evaluated Possible trach and PEG today Vital signs noted Hospitalist Physical - Constitutional Vitals: Temp Pulse Resp BP Pulse Ox 101.2 F H 111 H 19 158/88 94 07/29/19 16:00 07/29/19 17:00 07/29/19 17:00 07/29/19 17:00 07/29/19 17:00 General appearance: Present: no acute distress, well-nourished, obese, other (On vent) - EENT Eyes: Present: PERRL, EOM intact - Neck Neck: Present: supple, normal ROM - Respiratory Respiratory effort: normal Respiratory: bilateral: diminished, rhonchi, negative: rales, wheezing - Cardiovascular Rhythm: regular Heart Sounds: Present: S1 & S2 - Extremities Extremities: no ischemia, No edema - Abdominal General gastrointestinal: soft, non-tender, non-distended, normal bowel sounds - Integumentary Integumentary: Present: clear, warm - Psychiatric Psychiatric: other (Intubated on vent) - Neurologic Neurologic: other (Intubated on vent) Results - Labs CBC & Chem 7: 07/29/19 10:06 07/29/19 04:45 Labs: Laboratory Last Values WBC 9.5 K/mm3 (4.5-11.0) 07/29/19 10:06 RBC 2.40 M/mm3 (3.65-5.03) L 07/29/19 10:06 Hgb 7.3 gm/dl (11.8-15.2) L 07/29/19 10:06 Hct 22.8 % (35.5-45.6) L 07/29/19 10:06 MCV 95 fl (84-94) H 07/29/19 10:06 MCH 30 pg (28-32) 07/29/19 10:06 MCHC 32 % (32-34) 07/29/19 10:06 RDW 21.2 % (13.2-15.2) H 07/29/19 10:06 Plt Count 262 K/mm3 (140-440) 07/29/19 10:06 Lymph % (Auto) 11.0 % (13.4-35.0) L 07/29/19 10:06 [place] % (Auto) 11.1 % (0.0-7.3) H 07/29/19 10:06 Eos % (Auto) 2.9 % (0.0-4.3) 07/29/19 10:06 Baso % (Auto) 2.3 % (0.0-1.8) H 07/29/19 10:06 Lymph # 1.0 K/mm3 (1.2-5.4) L 07/29/19 10:06 [place] # 1.1 K/mm3 (0.0-0.8) H 07/29/19 10:06 Eos # 0.3 K/mm3 (0.0-0.4) 07/29/19 10:06 Baso # 0.2 K/mm3 (0.0-0.1) H 07/29/19 10:06 Add Manual Diff Complete 07/25/19 04:05 Total Counted 100 07/25/19 04:05 Seg Neutrophils % 72.7 % (40.0-70.0) H 07/29/19 10:06 Seg Neuts % (Manual) 76.0 % (40.0-70.0) H 07/25/19 04:05 Band Neutrophils % 0 % 07/25/19 04:05 Lymphocytes % (Manual) 9.0 % (13.4-35.0) L 07/25/19 04:05 Reactive Lymphs % (Man) 0 % 07/25/19 04:05 Monocytes % (Manual) 11.0 % (0.0-7.3) H 07/25/19 04:05 Eosinophils % (Manual) 2.0 % (0.0-4.3) 07/25/19 04:05 Basophils % (Manual) 0 % (0.0-1.8) 07/25/19 04:05 Metamyelocytes % 2.0 % 07/25/19 04:05 Myelocytes % 0 % 07/25/19 04:05 Promyelocytes % 0 % 07/25/19 04:05 Blast Cells % 0 % 07/25/19 04:05 Nucleated RBC % Not Reportable 07/25/19 04:05 Seg Neutrophils # 6.9 K/mm3 (1.8-7.7) 07/29/19 10:06 Seg Neutrophils # Man 8.7 K/mm3 (1.8-7.7) H 07/25/19 04:05 Band Neutrophils # 0.0 K/mm3 07/25/19 04:05 Lymphocytes # (Manual) 1.0 K/mm3 (1.2-5.4) L 07/25/19 04:05 Abs React Lymphs (Man) 0.0 K/mm3 07/25/19 04:05 Monocytes # (Manual) 1.3 K/mm3 (0.0-0.8) H 07/25/19 04:05 Eosinophils # (Manual) 0.2 K/mm3 (0.0-0.4) 07/25/19 04:05 Basophils # (Manual) 0.0 K/mm3 (0.0-0.1) 07/25/19 04:05 Metamyelocytes # 0.2 K/mm3 07/25/19 04:05 Myelocytes # 0.0 K/mm3 07/25/19 04:05 Promyelocytes # 0.0 K/mm3 07/25/19 04:05 Blast Cells # 0.0 K/mm3 07/25/19 04:05 WBC Morphology Not Reportable 07/25/19 04:05 Hypersegmented Neuts Not Reportable 07/25/19 04:05 Hyposegmented Neuts Not Reportable 07/25/19 04:05 Hypogranular Neuts Not Reportable 07/25/19 04:05 Smudge Cells Not Reportable 07/25/19 04:05 Toxic Granulation Not Reportable 07/25/19 04:05 Toxic Vacuolation Not Reportable 07/25/19 04:05 Dohle Bodies Not Reportable 07/25/19 04:05 Pelger-Huet Anomaly Not Reportable 07/25/19 04:05 Mack Rods Not Reportable 07/25/19 04:05 Platelet Estimate Consistent w auto 07/25/19 04:05 Clumped Platelets Not Reportable 07/25/19 04:05 Plt Clumps, EDTA Not Reportable 07/25/19 04:05 Large Platelets Not Reportable 07/25/19 04:05 Giant Platelets Not Reportable 07/25/19 04:05 Platelet Satelliting Not Reportable 07/25/19 04:05 Plt Morphology Comment Not Reportable 07/25/19 04:05 RBC Morphology Not Reportable 07/25/19 04:05 Dimorphic RBCs Not Reportable 07/25/19 04:05 Polychromasia Not Reportable 07/25/19 04:05 Hypochromasia 1+ 07/25/19 04:05 Poikilocytosis Not Reportable 07/25/19 04:05 Anisocytosis Few 07/25/19 04:05 Microcytosis Not Reportable 07/25/19 04:05 Macrocytosis Not Reportable 07/25/19 04:05 Spherocytes Not Reportable 07/25/19 04:05 Pappenheimer Bodies Not Reportable 07/25/19 04:05 Sickle Cells Not Reportable 07/25/19 04:05 Target Cells Not Reportable 07/25/19 04:05 Tear Drop Cells Not Reportable 07/25/19 04:05 Ovalocytes Not Reportable 07/25/19 04:05 Helmet Cells Not Reportable 07/25/19 04:05 [place] Bodies Not Reportable 07/25/19 04:05 Robinson Rings Not Reportable 07/25/19 04:05 [place] Cells Not Reportable 07/25/19 04:05 Bite Cells Not Reportable 07/25/19 04:05 Crenated Cell Not Reportable 07/25/19 04:05 Elliptocytes Not Reportable 07/25/19 04:05 Acanthocytes (Spur) Not Reportable 07/25/19 04:05 Rouleaux Not Reportable 07/25/19 04:05 Hemoglobin C Crystals Not Reportable 07/25/19 04:05 Schistocytes Rare 07/25/19 04:05 Malaria parasites Not Reportable 07/25/19 04:05 Víctor Bodies Not Reportable 07/25/19 04:05 Hem Pathologist Commnt No 07/25/19 04:05 PT 20.2 Sec. (12.2-14.9) H 07/29/19 04:45 INR 1.69 (0.87-1.13) H 07/29/19 04:45 APTT 47.8 Sec. (24.2-36.6) H 07/12/19 15:08 ABG pH 7.457 pH Units (7.350-7.450) H 07/25/19 05:27 ABG pCO2 39.4 mm Hg 07/25/19 05:27 ABG pO2 75.5 mm Hg (80.0-90.0) L 07/25/19 05:27 ABG HCO3 27.2 mmol/L (20.0-26.0) H 07/25/19 05:27 ABG O2 Saturation 97.1 % (95.0-99.0) 07/25/19 05:27 ABG O2 Content 9.4 (0.0-44) 07/25/19 05:27 ABG Base Excess 3.1 mmol/L (-2.0-3.0) H 07/25/19 05:27 ABG Hemoglobin 7.0 gm/dl (14.0-18.0) L 07/25/19 05:27 ABG Carboxyhemoglobin 2.2 % (0.0-5.0) 07/25/19 05:27 ABG Methemoglobin 0.5 % (0.0-1.5) 07/25/19 05:27 Oxyhemoglobin 94.4 % (95.0-99.0) L 07/25/19 05:27 FiO2 30 % 07/25/19 05:27 Sodium 148 mmol/L (137-145) H 07/29/19 04:45 Potassium 4.1 mmol/L (3.6-5.0) 07/29/19 04:45 Chloride 111.8 mmol/L (98-107) H 07/29/19 04:45 Carbon Dioxide 25 mmol/L (22-30) 07/29/19 04:45 Anion Gap 15 mmol/L 07/29/19 04:45 BUN 29 mg/dL (9-20) H 07/29/19 04:45 Creatinine 1.1 mg/dL (0.8-1.5) 07/29/19 04:45 Estimated GFR > 60 ml/min 07/29/19 04:45 BUN/Creatinine Ratio 26 % 07/29/19 04:45 Glucose 104 mg/dL (75-100) H 07/29/19 04:45 POC Glucose 122 (70-105) H 07/27/19 01:17 Calcium 8.8 mg/dL (8.4-10.2) 07/29/19 04:45 Phosphorus 2.70 mg/dL (2.5-4.5) 07/24/19 07:03 Magnesium 1.80 mg/dL (1.7-2.3) 07/29/19 04:45 Iron 15 ug/dL (49-181) L 07/15/19 06:30 TIBC 186 mcg/dL (250-450) L 07/15/19 06:30 Ferritin 428.2 ng/mL (13.0-400.0) H 07/15/19 06:30 Total Bilirubin 1.10 mg/dL (0.1-1.2) 07/18/19 05:40 Direct Bilirubin 0.7 mg/dL (0-0.2) H 07/18/19 05:40 Indirect Bilirubin 0.4 mg/dL 07/18/19 05:40 AST 94 units/L (5-40) H 07/18/19 05:40 ALT 16 units/L (7-56) 07/18/19 05:40 Alkaline Phosphatase 159 units/L (35-129) H 07/18/19 05:40 Lactate Dehydrogenase 294 units/L (91-180) H 07/18/19 05:40 Total Creatine Kinase 59 units/L (55-170) 07/14/19 07:16 Troponin T 0.188 ng/mL (0.00-0.029) H* 07/12/19 17:04 NT-Pro-B Natriuret Pep > 58258 pg/mL (0-450) H 07/12/19 15:08 Serum Total Protein 5.9 g/dL (6.1-8.1) L 07/23/19 05:30 Total Protein 5.6 g/dL (6.3-8.2) L D 07/18/19 05:40 Albumin 2.2 g/dL (3.8-4.8) L 07/23/19 05:30 Albumin/Globulin Ratio 0.8 % 07/18/19 05:40 Cjlfd-8-Mugiqqrjc 0.5 g/dL (0.2-0.3) H 07/23/19 05:30 Zconn-2-Gdrpnjzan 0.5 g/dL (0.5-0.9) 07/23/19 05:30 Beta Globulins 0.4 g/dL (0.2-0.5) 07/23/19 05:30 Gamma Globulins 2.0 g/dL (0.8-1.7) H 07/23/19 05:30 Abnorm Protein Band 1 see below 07/23/19 05:30 PEP Interpretation see below H 07/23/19 05:30 Triglycerides 128 mg/dL (2-149) 07/12/19 15:08 Cholesterol 121 mg/dL (50-199) 07/12/19 15:08 LDL Cholesterol Direct 40 mg/dL (50-130) L 07/12/19 15:08 HDL Cholesterol 44 mg/dL (40-59) 07/12/19 15:08 Cholesterol/HDL Ratio 2.75 % 07/12/19 15:08 Vitamin B12 960.4 pg/mL (211-911) H 07/21/19 08:00 Folate 6.18 ng/mL (7.3-26.0) L 07/21/19 08:00 Procalcitonin 8.19 ng/mL (<0.15) 07/23/19 05:30 Urine Color Yellow (Yellow) 07/28/19 15:00 Urine Turbidity Clear (Clear) 07/28/19 15:00 Urine pH 7.0 (5.0-7.0) 07/28/19 15:00 Ur Specific [place] 1.013 (1.003-1.030) 07/28/19 15:00 Urine Protein 100 mg/dl mg/dL (Negative) 07/28/19 15:00 Urine Glucose (UA) Neg mg/dL (Negative) 07/28/19 15:00 Urine Ketones Neg mg/dL (Negative) 07/28/19 15:00 Urine Blood Sm (Negative) 07/28/19 15:00 Urine Nitrite Neg (Negative) 07/28/19 15:00 Urine Bilirubin Neg (Negative) 07/28/19 15:00 Urine Urobilinogen < 2.0 mg/dL (<2.0) 07/28/19 15:00 Ur Leukocyte Esterase Neg (Negative) 07/28/19 15:00 Urine WBC (Auto) 2.0 /HPF (0.0-6.0) 07/28/19 15:00 Urine RBC (Auto) 2.0 /HPF (0.0-6.0) 07/28/19 15:00 U Epithel Cells (Auto) < 1.0 /HPF (0-13.0) 07/28/19 15:00 Urine Bacteria (Auto) 1+ /HPF (Negative) 07/14/19 17:28 Urine Mucus Few /HPF 07/14/19 17:28 Urine Yeast (Budding) Few /HPF 07/14/19 17:28 Urine Eosinophils Rare seen (None Seen) 07/14/19 17:28 Urine Creatinine 106.2 mg/dL (0.1-20.0) H 07/14/19 17:28 Protein/Creatinin Ratio 1.66 07/14/19 16:40 Urine Sodium 67 mmol/L 07/14/19 17:28 Urine Urea Nitrogen 100 07/14/19 17:28 Urine Total Protein 173 mg/dL (5-11.8) H 07/14/19 16:40 Fluid Type Paracentesis 07/14/19 10:45 Fluid Color Bloody 07/14/19 10:45 Fluid Appearance Bloody 07/14/19 10:45 Fluid WBC 120 /mm3 07/14/19 10:45 Fluid RBC 90460 /mm3 07/14/19 10:45 Fluid Seg Neutrophils 33.0 % 07/14/19 10:45 Fluid Lymphocytes 17.0 % 07/14/19 10:45 Fluid Reactive Lymphs 0 % 07/14/19 10:45 Fluid Monocytes 50.0 % 07/14/19 10:45 Fluid Eosinophils 0 % 07/14/19 10:45 Fluid Basophils 0 % 07/14/19 10:45 Fluid Glucose 93 mg/dL (40-70) H 07/14/19 10:45 Fluid Total Protein 4.7 (15.0-45.0) L 07/14/19 10:45 Fluid LDH 07/14/19 10:45 Random Vancomycin 14.5 ug/mL (0-40.0) 07/19/19 05:15 SHANNA Screen Negative (Negative) 07/14/19 11:50 Proteinase 3 (PR3) Ab <1.0 AI (<1.0) 07/14/19 11:50 Myeloperoxidase Ab <1.0 AI (<1.0) 07/14/19 11:50 Glomerular Base Mem IgG See scanned result 07/14/19 11:50 Complement C3 124 mg/dL (82-185) 07/14/19 11:50 Complement C4 28 mg/dL (15-53) 07/14/19 11:50 Hepatitis A IgM Ab Non-reactive (NonReactive) 07/12/19 17:49 Hep Bs Antigen Non-reactive (Negative) 07/14/19 11:50 Hep B Core IgM Ab Non-reactive (NonReactive) 07/12/19 17:49 Hepatitis C Antibody Non-reactive (NonReactive) 07/14/19 11:50 HIV-1 Antibody See scanned result 07/14/19 11:50 HIV-2 Ab (Immunoblot) See scanned result 07/14/19 11:50 Schistocytes Smear Rare 07/18/19 05:40 Blood Type A POSITIVE 07/28/19 16:44 Antibody Screen Negative 07/28/19 16:44 Crossmatch See Detail 07/28/19 16:44 Active Medications - Current Medications Current Medications: Generic Name Dose Route Start Last Admin Trade Name Freq PRN Reason Stop Dose Admin Acetaminophen 650 mg 07/20/19 16:56 07/29/19 17:44 Tylenol FEEDTUBE 650 mg Q6H PRN Administration Fever >101 Albuterol 2.5 mg 07/14/19 04:54 07/16/19 13:42 Proventil IH 2.5 mg Q4HRT PRN Administration Shortness Of Breath Lipase/Protease/Amylase 1 each 07/18/19 13:20 Pancrenarinder [place] 10,500 Unit FEEDTUBE PRN PRN For Clogged Feeding Tube Aspirin 81 mg 07/28/19 10:00 07/29/19 09:11 Baby Aspirin FEEDTUBE 81 mg QDAY TERRELL Administration Fentanyl 25 mcg 07/25/19 10:51 07/28/19 11:35 Sublimaze IV 25 mcg Q2HR PRN Administration Pain, Moderate (4-6) Glycopyrrolate 0.2 mg 07/27/19 16:00 07/29/19 16:00 Robinul IV 0.2 mg Q6H TERRELL Administration Haloperidol Lactate 5 mg 07/12/19 21:35 07/24/19 12:00 Haldol IV 5 mg Q1H PRN Administration Unrespon. to mult. doses BZD's Hydralazine HCl 10 mg 07/23/19 10:46 07/27/19 17:30 Apresoline IV 10 mg Q4HR PRN Administration BP >160/100 Dextrose 1,000 mls @ 42 mls/hr 07/26/19 15:00 07/29/19 09:47 D5w IV 42 mls/hr DIRECT TERRELL Administration Phytonadione 10 mg/ Sodium 51 mls @ 100 mls/hr 07/28/19 16:30 07/29/19 17:05 Chloride IV 07/30/19 17:01 Infused Q24H TERRELL Infusion Lansoprazole 30 mg 07/18/19 11:00 07/29/19 09:11 Prevacid Solutab FEEDTUBE 30 mg QDAY TERRELL Administration Lorazepam 1 mg 07/27/19 11:49 07/28/19 09:42 Ativan IV 1 mg Q2H PRN Administration Agitation Multivit/Ca Carb/B Cmplx/FA/Prenat 1 cap 07/29/19 10:00 07/29/19 09:11 Renal Caps PO 1 cap QDAY TERRELL Administration Scopolamine 1 each 07/23/19 11:00 07/29/19 10:38 Transderm-Scop TD 1 each Q3D TERRELL Administration Simple Syrup 15 ml 07/18/19 13:20 Simple Syrup FEEDTUBE PRN PRN Hypoglycemia Simple Syrup 30 ml 07/18/19 13:20 Simple Syrup FEEDTUBE PRN PRN Hypoglycemia Sodium Bicarbonate 325 mg 07/18/19 13:20 Sodium Bicarbonate FEEDTUBE PRN PRN For Clogged Feeding Tube Thiamine HCl 100 mg 07/22/19 10:00 07/29/19 09:11 Vitamin B-1 PO 100 mg QDAY TERRELL Administration Valsartan 80 mg 07/27/19 15:16 07/29/19 09:12 Diovan PO 80 mg BID TERRELL Administration Nutrition/Malnutrition Assess - Dietary Evaluation Nutrition/Malnutrition Findings: Nutrition Notes Start: 07/18/19 12:09 Freq: Status: Active Protocol: Document 07/24/19 10:53 MK (Rec: 07/24/19 10:57 MK [id number]) Co-Sign 07/24/19 10:53 LP Nutrition Notes Initial or Follow up Reassessment Current Diagnosis Acute Kidney Injury, Hypertension,Heart Failure, Respiratory Failure Other Pertinent Diagnosis on HD , metabolic acidosis, pnuemonia Current Diet Nepro at 41ml/hr Labs/Tests K 3.4 BUN 70 Cr 1.8 Pertinent Medications Reviewed Height 5 ft 10 in Weight 102 kg [place] Body Weight (kg) 75.45 BMI 32.2 Subjective/Other Information Pt tolerating Nepro at 41ml/hr . Pt remains on vent. Percent of energy/protein needs met: 100%/53% Burn Absent Trauma Absent GI Symptoms None Difficulty In Swallowing,Chewing Current % PO Negligible Minimum of two criteria Yes Energy Intake (severe) < or equal to 50% Estimated Energy Requirement > or equal to 5 days Muscle Mass Mild Depletion (non-severe) Fluid Accumulation Moderate to Severe (severe) Reduced [employer] Strength Measurably Reduced (severe) #2 Nutrition Diagnosis Malnutrition Diagnosis Progress(for reassessment Continues documentation) #1 Nutrition Diagnosis Inadequate oral intake Diagnosis Progress(for reassessment Continues documentation) Is patient on ventilator? Yes Is Patient Ambulatory and/or Out of Bed No REE-([facility]-confined to bed) 2272.980 Kcal/Kg value to use for calculation 17 Approximate Energy Requirements Using 1734 kcal/Kg Calculation Used for Recommendations Kcal/kg Additional Notes Protein needs: 150 g (> 2 g/ kgIBW) Fluid needs: 1ml/kcal or per MD Nutrition Intervention Change Diet Order: TF Nutrition Support: Nepro 1.8 at 41 ml/hr. Water flush of 130 ml q4h. Kcal 1,771 Protein (gm) 80 Fluid (mL) 715 Goal #1 Meet at least 75% of protein and energy needs Anticipated Discharge Needs: unble to determine at this time Follow-Up By: 07/31/19 Additional Comments Follow for stable TF tolerance
[2019-07-30] MEDS: GLYCOPYRROLATE 0.4 MG/2 ML INJ IV SCH ×4 (04:15→22:01)
[2019-07-30 05:44] LABS: INR 1.67 (0.87-1.13)
[2019-07-30] MEDS: ACETAMINOPHEN 325 MG/10.15 ML ORAL LIQD UNIT DOSE FEEDTUBE PRN ×2 (09:16→22:02)
[2019-07-30] MEDS: FOLIC ACID/VIT B COMP W-C 1 MG (RENAL CAPS) PO SCH (09:17)
[2019-07-30] MEDS: LANSOPRAZOLE 30 MG SOLUTAB FEEDTUBE SCH (09:17)
[2019-07-30] MEDS: VALSARTAN 40 MG TAB PO SCH ×2 (09:17→22:00)
[2019-07-30] MEDS: ASPIRIN 81 MG TAB CHEW FEEDTUBE SCH (09:17)
[2019-07-30] MEDS: THIAMINE 100 MG TAB PO SCH (09:17)
[2019-07-30] MEDS ORDERED: ROCURONIUM 50 MG/5 ML INJ IV ONE (09:56)
[2019-07-30] MEDS ORDERED: MAGNESIUM SULFATE 2 GM/50 ML BAG IV ONE (10:00)
--- NOTE | 2019-07-30 10:52 | Progress Note ---
Assessment and Plan Assessment and plan: --Febrile illness/persistent fevers: Patient recently completed antibiotics Antipyretics, cultures, ID following --Bilateral pneumonia: Completed course of antibiotics for 7 days per ID. Monitor off antibiotics --Acute hypoxic respiratory failure on MV > 96 hours, continue mechanical ventilator. s/p trach and PEG on 07/29/2019, trach and PEG care --Acute on chronic systolic heart failure decompensation leading to respiratory failure: Meds optimized. Fluid was removed via dialysis, now has good urine output, improving --Acute on chronic CHF, EF 25%. Medications optimized per cardiology, patient now appears to be improving Fluid overload, Ascites, status post paracentesis on 07/15, 3.2 L removed. Received dialysis. --Severe ARF due to ATN, no longer needing HD. Nephrology input appreciated, has good urine output. HD cath now removed. --acute metabolic encephalopathy, acute metabolic encephalopathy, poa, thought to be due to severe Uremia, but uremia improved and he still not responsive , needing restraints for agitation CVA; noted on MRI, optimize medications for secondary prevention, aspirin, statin, blood pressure control. --Anemia appears AOCD due to renal dysfunction: continue to monitor cbc --Thrombocytopenia: Likely due to alcohol abuse, resolved -- Obesity, bmi 32.1: counseling department chair on lifestyle modification if patient improves --Transient A. fib/a flutter on NSVT. Now resolved, no further medication or work-up required Resume Eliquis 5 mg twice a day if okay with surgery --Hypertensive urgency; continue to adjust BP meds --Hypernatremia; continue free water via G-tube, added small amounts of D5 water given advanced heart failure --History of nonadherence, alcohol abuse, plan to counseling department chair patient to be his mentation improves. --Discharge planning Possible LTAC placement Plan of care reviewed with the patient's nurse and the case management Critical care time 32 minutes History Interval history: Patient had tracheostomy and PEG placement yesterday Tolerated the procedure well However patient is febrile T-max 102 F last night Patient is in mild distress Hospitalist Physical - Constitutional Vitals: Temp Pulse Resp BP Pulse Ox 102.2 F H 110 H 20 155/84 100 07/30/19 08:00 07/30/19 09:17 07/30/19 08:00 07/30/19 09:17 07/30/19 08:44 General appearance: Present: mild distress, well-nourished, obese, other (Febrile, tracheostomy, on vent) - EENT Eyes: Present: PERRL, EOM intact - Neck Neck: Present: supple, normal ROM - Respiratory Respiratory effort: normal Respiratory: bilateral: diminished, rhonchi, negative: rales, wheezing - Cardiovascular Rhythm: regular Heart Sounds: Present: S1 & S2 - Extremities Extremities: no ischemia, No edema - Abdominal General gastrointestinal: soft, non-tender, non-distended, normal bowel sounds - Integumentary Integumentary: Present: clear, warm - Psychiatric Psychiatric: other (Tracheostomy on vent) - Neurologic Neurologic: other (Noncommunicative) Results - Labs CBC & Chem 7: 07/29/19 10:06 07/29/19 04:45 Labs: Laboratory Last Values WBC 9.5 K/mm3 (4.5-11.0) 07/29/19 10:06 RBC 2.40 M/mm3 (3.65-5.03) L 07/29/19 10:06 Hgb 7.3 gm/dl (11.8-15.2) L 07/29/19 10:06 Hct 22.8 % (35.5-45.6) L 07/29/19 10:06 MCV 95 fl (84-94) H 07/29/19 10:06 MCH 30 pg (28-32) 07/29/19 10:06 MCHC 32 % (32-34) 07/29/19 10:06 RDW 21.2 % (13.2-15.2) H 07/29/19 10:06 Plt Count 262 K/mm3 (140-440) 07/29/19 10:06 Lymph % (Auto) 11.0 % (13.4-35.0) L 07/29/19 10:06 [place] % (Auto) 11.1 % (0.0-7.3) H 07/29/19 10:06 Eos % (Auto) 2.9 % (0.0-4.3) 07/29/19 10:06 Baso % (Auto) 2.3 % (0.0-1.8) H 07/29/19 10:06 Lymph # 1.0 K/mm3 (1.2-5.4) L 07/29/19 10:06 [place] # 1.1 K/mm3 (0.0-0.8) H 07/29/19 10:06 Eos # 0.3 K/mm3 (0.0-0.4) 07/29/19 10:06 Baso # 0.2 K/mm3 (0.0-0.1) H 07/29/19 10:06 Add Manual Diff Complete 07/25/19 04:05 Total Counted 100 07/25/19 04:05 Seg Neutrophils % 72.7 % (40.0-70.0) H 07/29/19 10:06 Seg Neuts % (Manual) 76.0 % (40.0-70.0) H 07/25/19 04:05 Band Neutrophils % 0 % 07/25/19 04:05 Lymphocytes % (Manual) 9.0 % (13.4-35.0) L 07/25/19 04:05 Reactive Lymphs % (Man) 0 % 07/25/19 04:05 Monocytes % (Manual) 11.0 % (0.0-7.3) H 07/25/19 04:05 Eosinophils % (Manual) 2.0 % (0.0-4.3) 07/25/19 04:05 Basophils % (Manual) 0 % (0.0-1.8) 07/25/19 04:05 Metamyelocytes % 2.0 % 07/25/19 04:05 Myelocytes % 0 % 07/25/19 04:05 Promyelocytes % 0 % 07/25/19 04:05 Blast Cells % 0 % 07/25/19 04:05 Nucleated RBC % Not Reportable 07/25/19 04:05 Seg Neutrophils # 6.9 K/mm3 (1.8-7.7) 07/29/19 10:06 Seg Neutrophils # Man 8.7 K/mm3 (1.8-7.7) H 07/25/19 04:05 Band Neutrophils # 0.0 K/mm3 07/25/19 04:05 Lymphocytes # (Manual) 1.0 K/mm3 (1.2-5.4) L 07/25/19 04:05 Abs React Lymphs (Man) 0.0 K/mm3 07/25/19 04:05 Monocytes # (Manual) 1.3 K/mm3 (0.0-0.8) H 07/25/19 04:05 Eosinophils # (Manual) 0.2 K/mm3 (0.0-0.4) 07/25/19 04:05 Basophils # (Manual) 0.0 K/mm3 (0.0-0.1) 07/25/19 04:05 Metamyelocytes # 0.2 K/mm3 07/25/19 04:05 Myelocytes # 0.0 K/mm3 07/25/19 04:05 Promyelocytes # 0.0 K/mm3 07/25/19 04:05 Blast Cells # 0.0 K/mm3 07/25/19 04:05 WBC Morphology Not Reportable 07/25/19 04:05 Hypersegmented Neuts Not Reportable 07/25/19 04:05 Hyposegmented Neuts Not Reportable 07/25/19 04:05 Hypogranular Neuts Not Reportable 07/25/19 04:05 Smudge Cells Not Reportable 07/25/19 04:05 Toxic Granulation Not Reportable 07/25/19 04:05 Toxic Vacuolation Not Reportable 07/25/19 04:05 Dohle Bodies Not Reportable 07/25/19 04:05 Pelger-Huet Anomaly Not Reportable 07/25/19 04:05 Mack Rods Not Reportable 07/25/19 04:05 Platelet Estimate Consistent w auto 07/25/19 04:05 Clumped Platelets Not Reportable 07/25/19 04:05 Plt Clumps, EDTA Not Reportable 07/25/19 04:05 Large Platelets Not Reportable 07/25/19 04:05 Giant Platelets Not Reportable 07/25/19 04:05 Platelet Satelliting Not Reportable 07/25/19 04:05 Plt Morphology Comment Not Reportable 07/25/19 04:05 RBC Morphology Not Reportable 07/25/19 04:05 Dimorphic RBCs Not Reportable 07/25/19 04:05 Polychromasia Not Reportable 07/25/19 04:05 Hypochromasia 1+ 07/25/19 04:05 Poikilocytosis Not Reportable 07/25/19 04:05 Anisocytosis Few 07/25/19 04:05 Microcytosis Not Reportable 07/25/19 04:05 Macrocytosis Not Reportable 07/25/19 04:05 Spherocytes Not Reportable 07/25/19 04:05 Pappenheimer Bodies Not Reportable 07/25/19 04:05 Sickle Cells Not Reportable 07/25/19 04:05 Target Cells Not Reportable 07/25/19 04:05 Tear Drop Cells Not Reportable 07/25/19 04:05 Ovalocytes Not Reportable 07/25/19 04:05 Helmet Cells Not Reportable 07/25/19 04:05 Jackson-Rackerby Bodies Not Reportable 07/25/19 04:05 [place] Rings Not Reportable 07/25/19 04:05 [place] Cells Not Reportable 07/25/19 04:05 Bite Cells Not Reportable 07/25/19 04:05 Crenated Cell Not Reportable 07/25/19 04:05 Elliptocytes Not Reportable 07/25/19 04:05 Acanthocytes (Spur) Not Reportable 07/25/19 04:05 Rouleaux Not Reportable 07/25/19 04:05 Hemoglobin C Crystals Not Reportable 07/25/19 04:05 Schistocytes Rare 07/25/19 04:05 Malaria parasites Not Reportable 07/25/19 04:05 Víctor Bodies Not Reportable 07/25/19 04:05 Hem Pathologist Commnt No 07/25/19 04:05 PT 20.0 Sec. (12.2-14.9) H 07/30/19 04:56 INR 1.67 (0.87-1.13) H 07/30/19 04:56 APTT 47.8 Sec. (24.2-36.6) H 07/12/19 15:08 ABG pH 7.457 pH Units (7.350-7.450) H 07/25/19 05:27 ABG pCO2 39.4 mm Hg 07/25/19 05:27 ABG pO2 75.5 mm Hg (80.0-90.0) L 07/25/19 05:27 ABG HCO3 27.2 mmol/L (20.0-26.0) H 07/25/19 05:27 ABG O2 Saturation 97.1 % (95.0-99.0) 07/25/19 05:27 ABG O2 Content 9.4 (0.0-44) 07/25/19 05:27 ABG Base Excess 3.1 mmol/L (-2.0-3.0) H 07/25/19 05:27 ABG Hemoglobin 7.0 gm/dl (14.0-18.0) L 07/25/19 05:27 ABG Carboxyhemoglobin 2.2 % (0.0-5.0) 07/25/19 05:27 ABG Methemoglobin 0.5 % (0.0-1.5) 07/25/19 05:27 Oxyhemoglobin 94.4 % (95.0-99.0) L 07/25/19 05:27 FiO2 30 % 07/25/19 05:27 Sodium 148 mmol/L (137-145) H 07/29/19 04:45 Potassium 4.1 mmol/L (3.6-5.0) 07/29/19 04:45 Chloride 111.8 mmol/L (98-107) H 07/29/19 04:45 Carbon Dioxide 25 mmol/L (22-30) 07/29/19 04:45 Anion Gap 15 mmol/L 07/29/19 04:45 BUN 29 mg/dL (9-20) H 07/29/19 04:45 Creatinine 1.1 mg/dL (0.8-1.5) 07/29/19 04:45 Estimated GFR > 60 ml/min 07/29/19 04:45 BUN/Creatinine Ratio 26 % 07/29/19 04:45 Glucose 104 mg/dL (75-100) H 07/29/19 04:45 POC Glucose 122 (70-105) H 07/27/19 01:17 Calcium 8.8 mg/dL (8.4-10.2) 07/29/19 04:45 Phosphorus 2.70 mg/dL (2.5-4.5) 07/24/19 07:03 Magnesium 1.50 mg/dL (1.7-2.3) L 07/30/19 04:56 Iron 15 ug/dL (49-181) L 07/15/19 06:30 TIBC 186 mcg/dL (250-450) L 07/15/19 06:30 Ferritin 428.2 ng/mL (13.0-400.0) H 07/15/19 06:30 Total Bilirubin 1.10 mg/dL (0.1-1.2) 07/18/19 05:40 Direct Bilirubin 0.7 mg/dL (0-0.2) H 07/18/19 05:40 Indirect Bilirubin 0.4 mg/dL 07/18/19 05:40 AST 94 units/L (5-40) H 07/18/19 05:40 ALT 16 units/L (7-56) 07/18/19 05:40 Alkaline Phosphatase 159 units/L (35-129) H 07/18/19 05:40 Lactate Dehydrogenase 294 units/L (91-180) H 07/18/19 05:40 Total Creatine Kinase 59 units/L (55-170) 07/14/19 07:16 Troponin T 0.188 ng/mL (0.00-0.029) H* 07/12/19 17:04 NT-Pro-B Natriuret Pep > 99338 pg/mL (0-450) H 07/12/19 15:08 Serum Total Protein 5.9 g/dL (6.1-8.1) L 07/23/19 05:30 Total Protein 5.6 g/dL (6.3-8.2) L D 07/18/19 05:40 Albumin 2.2 g/dL (3.8-4.8) L 07/23/19 05:30 Albumin/Globulin Ratio 0.8 % 07/18/19 05:40 Vassh-1-Ausqmilpg 0.5 g/dL (0.2-0.3) H 07/23/19 05:30 Iwdzo-3-Uoxexbdjb 0.5 g/dL (0.5-0.9) 07/23/19 05:30 Beta Globulins 0.4 g/dL (0.2-0.5) 07/23/19 05:30 Gamma Globulins 2.0 g/dL (0.8-1.7) H 07/23/19 05:30 Abnorm Protein Band 1 see below 07/23/19 05:30 PEP Interpretation see below H 07/23/19 05:30 Triglycerides 128 mg/dL (2-149) 07/12/19 15:08 Cholesterol 121 mg/dL (50-199) 07/12/19 15:08 LDL Cholesterol Direct 40 mg/dL (50-130) L 07/12/19 15:08 HDL Cholesterol 44 mg/dL (40-59) 07/12/19 15:08 Cholesterol/HDL Ratio 2.75 % 07/12/19 15:08 Vitamin B12 960.4 pg/mL (211-911) H 07/21/19 08:00 Folate 6.18 ng/mL (7.3-26.0) L 07/21/19 08:00 Procalcitonin 8.19 ng/mL (<0.15) 07/23/19 05:30 Urine Color Yellow (Yellow) 07/28/19 15:00 Urine Turbidity Clear (Clear) 07/28/19 15:00 Urine pH 7.0 (5.0-7.0) 07/28/19 15:00 Ur Specific [place] 1.013 (1.003-1.030) 07/28/19 15:00 Urine Protein 100 mg/dl mg/dL (Negative) 07/28/19 15:00 Urine Glucose (UA) Neg mg/dL (Negative) 07/28/19 15:00 Urine Ketones Neg mg/dL (Negative) 07/28/19 15:00 Urine Blood Sm (Negative) 07/28/19 15:00 Urine Nitrite Neg (Negative) 07/28/19 15:00 Urine Bilirubin Neg (Negative) 07/28/19 15:00 Urine Urobilinogen < 2.0 mg/dL (<2.0) 07/28/19 15:00 Ur Leukocyte Esterase Neg (Negative) 07/28/19 15:00 Urine WBC (Auto) 2.0 /HPF (0.0-6.0) 07/28/19 15:00 Urine RBC (Auto) 2.0 /HPF (0.0-6.0) 07/28/19 15:00 U Epithel Cells (Auto) < 1.0 /HPF (0-13.0) 07/28/19 15:00 Urine Bacteria (Auto) 1+ /HPF (Negative) 07/14/19 17:28 Urine Mucus Few /HPF 07/14/19 17:28 Urine Yeast (Budding) Few /HPF 07/14/19 17:28 Urine Eosinophils Rare seen (None Seen) 07/14/19 17:28 Urine Creatinine 106.2 mg/dL (0.1-20.0) H 07/14/19 17:28 Protein/Creatinin Ratio 1.66 07/14/19 16:40 Urine Sodium 67 mmol/L 07/14/19 17:28 Urine Urea Nitrogen 100 07/14/19 17:28 Urine Total Protein 173 mg/dL (5-11.8) H 07/14/19 16:40 Fluid Type Paracentesis 07/14/19 10:45 Fluid Color Bloody 07/14/19 10:45 Fluid Appearance Bloody 07/14/19 10:45 Fluid WBC 120 /mm3 07/14/19 10:45 Fluid RBC 74373 /mm3 07/14/19 10:45 Fluid Seg Neutrophils 33.0 % 07/14/19 10:45 Fluid Lymphocytes 17.0 % 07/14/19 10:45 Fluid Reactive Lymphs 0 % 07/14/19 10:45 Fluid Monocytes 50.0 % 07/14/19 10:45 Fluid Eosinophils 0 % 07/14/19 10:45 Fluid Basophils 0 % 07/14/19 10:45 Fluid Glucose 93 mg/dL (40-70) H 07/14/19 10:45 Fluid Total Protein 4.7 (15.0-45.0) L 07/14/19 10:45 Fluid LDH 07/14/19 10:45 Random Vancomycin 14.5 ug/mL (0-40.0) 07/19/19 05:15 SHANNA Screen Negative (Negative) 07/14/19 11:50 Proteinase 3 (PR3) Ab <1.0 AI (<1.0) 07/14/19 11:50 Myeloperoxidase Ab <1.0 AI (<1.0) 07/14/19 11:50 Glomerular Base Mem IgG See scanned result 07/14/19 11:50 Complement C3 124 mg/dL (82-185) 07/14/19 11:50 Complement C4 28 mg/dL (15-53) 07/14/19 11:50 Hepatitis A IgM Ab Non-reactive (NonReactive) 07/12/19 17:49 Hep Bs Antigen Non-reactive (Negative) 07/14/19 11:50 Hep B Core IgM Ab Non-reactive (NonReactive) 07/12/19 17:49 Hepatitis C Antibody Non-reactive (NonReactive) 07/14/19 11:50 HIV-1 Antibody See scanned result 07/14/19 11:50 HIV-2 Ab (Immunoblot) See scanned result 07/14/19 11:50 Schistocytes Smear Rare 07/18/19 05:40 Blood Type A POSITIVE 07/28/19 16:44 Antibody Screen Negative 07/28/19 16:44 Crossmatch See Detail 07/28/19 16:44 Active Medications - Current Medications Current Medications: Generic Name Dose Route Start Last Admin Trade Name Freq PRN Reason Stop Dose Admin Acetaminophen 650 mg 07/20/19 16:56 07/30/19 09:16 Tylenol FEEDTUBE 650 mg Q6H PRN Administration Fever >101 Albuterol 2.5 mg 07/14/19 04:54 07/16/19 13:42 Proventil IH 2.5 mg Q4HRT PRN Administration Shortness Of Breath Lipase/Protease/Amylase 1 each 07/18/19 13:20 Pancreazchapito Moeller 10,500 Unit FEEDTUBE PRN PRN For Clogged Feeding Tube Apixaban 5 mg 07/30/19 22:00 Eliquis PO Q12HR TERRELL Protocol Aspirin 81 mg 07/28/19 10:00 07/30/19 09:17 Baby Aspirin FEEDTUBE 81 mg QDAY TERRELL Administration Fentanyl 25 mcg 07/25/19 10:51 07/28/19 11:35 Sublimaze IV 25 mcg Q2HR PRN Administration Pain, Moderate (4-6) Glycopyrrolate 0.2 mg 07/27/19 16:00 07/30/19 09:18 Robinul IV 0.2 mg Q6H TERRELL Administration Haloperidol Lactate 5 mg 07/12/19 21:35 07/24/19 12:00 Haldol IV 5 mg Q1H PRN Administration Unrespon. to mult. doses BZD's Hydralazine HCl 10 mg 07/23/19 10:46 07/27/19 17:30 Apresoline IV 10 mg Q4HR PRN Administration BP >160/100 Phytonadione 10 mg/ Sodium 51 mls @ 100 mls/hr 07/28/19 16:30 07/29/19 17:05 Chloride IV 07/30/19 17:01 Infused Q24H TERRELL Infusion Magnesium Sulfate 2 gm in 50 mls @ 25 mls/hr 07/30/19 10:00 07/30/19 09:17 Magnesium Sulfate 2gm/50ml IV 07/30/19 11:59 25 mls/hr ONCE ONE Administration Lansoprazole 30 mg 07/18/19 11:00 07/30/19 09:17 Prevacid Solutab FEEDTUBE 30 mg QDAY TERRELL Administration Lorazepam 1 mg 07/27/19 11:49 07/28/19 09:42 Ativan IV 1 mg Q2H PRN Administration Agitation Multivit/Ca Carb/B Cmplx/FA/Prenat 1 cap 07/29/19 10:00 07/30/19 09:17 Renal Caps PO 1 cap QDAY TERRELL Administration Simple Syrup 15 ml 07/18/19 13:20 Simple Syrup FEEDTUBE PRN PRN Hypoglycemia Simple Syrup 30 ml 07/18/19 13:20 Simple Syrup FEEDTUBE PRN PRN Hypoglycemia Sodium Bicarbonate 325 mg 07/18/19 13:20 Sodium Bicarbonate FEEDTUBE PRN PRN For Clogged Feeding Tube Thiamine HCl 100 mg 07/22/19 10:00 07/30/19 09:17 Vitamin B-1 PO 100 mg QDAY TERRELL Administration Valsartan 80 mg 07/27/19 15:16 07/30/19 09:17 Diovan PO 80 mg BID TERRELL Administration Nutrition/Malnutrition Assess - Dietary Evaluation Nutrition/Malnutrition Findings: Nutrition Notes Start: 07/18/19 12:09 Freq: Status: Active Protocol: Document 07/24/19 10:53 (Rec: 07/24/19 10:57 [id number]) Co-Sign 07/24/19 10:53 LP Nutrition Notes Initial or Follow up Reassessment Current Diagnosis Acute Kidney Injury, Hypertension,Heart Failure, Respiratory Failure Other Pertinent Diagnosis on HD , metabolic acidosis, pnuemonia Current Diet Nepro at 41ml/hr Labs/Tests K 3.4 BUN 70 Cr 1.8 Pertinent Medications Reviewed Height 5 ft 10 in Weight 102 kg [place] Body Weight (kg) 75.45 BMI 32.2 Subjective/Other Information Pt tolerating Nepro at 41ml/hr . Pt remains on vent. Percent of energy/protein needs met: 100%/53% Burn Absent Trauma Absent GI Symptoms None Difficulty In Swallowing,Chewing Current % PO Negligible Minimum of two criteria Yes Energy Intake (severe) < or equal to 50% Estimated Energy Requirement > or equal to 5 days Muscle Mass Mild Depletion (non-severe) Fluid Accumulation Moderate to Severe (severe) Reduced Warp Dyeing Tender Strength Measurably Reduced (severe) #2 Nutrition Diagnosis Malnutrition Diagnosis Progress(for reassessment Continues documentation) #1 Nutrition Diagnosis Inadequate oral intake Diagnosis Progress(for reassessment Continues documentation) Is patient on ventilator? Yes Is Patient Ambulatory and/or Out of Bed No [facility] 2272.980 Kcal/Kg value to use for calculation 17 Approximate Energy Requirements Using 1734 kcal/Kg Calculation Used for Recommendations Kcal/kg Additional Notes Protein needs: 150 g (> 2 g/ kgIBW) Fluid needs: 1ml/kcal or per MD Nutrition Intervention Change Diet Order: TF Nutrition Support: Nepro 1.8 at 41 ml/hr. Water flush of 130 ml q4h. Kcal 1,771 Protein (gm) 80 Fluid (mL) 715 Goal #1 Meet at least 75% of protein and energy needs Anticipated Discharge Needs: unble to determine at this time Follow-Up By: 07/31/19 Additional Comments Follow for stable TF tolerance
--- NOTE | 2019-07-30 11:10 | Progress Note ---
Assessment and Plan 48 y/o male with inhouse cardiac arrest x2 1. PRN ativan for sedation to prevent patient from self extubation/pulling trach out. 2. Continue PSV daily and will now leave on as tolerated. No need to rest on vent unless absolutely necessary. 3. RT will repeat PSV again later today. Asked to leave patient on if he does not desat. 4. Follow up cardiology recs regarding mobile mass. Maybe this is the cause of the stroke seen on MRI. 5. Overall prognosis is guarded to poor. CCT 31 minutes. Subjective Date of service: 07/30/19 Principal diagnosis: anemia Interval history: Per RT this am, failed Pressure Support trial with RR in the mid 40's. No desaturations noted. Had trach and peg yesterday. Objective Vital Signs - 12hr 07/30/19 07/30/19 07/30/19 00:00 01:00 01:17 Temperature 102.7 F H Pulse Rate 119 H 120 H 117 H Pulse Rate [ 121 H From Monitor] Respiratory 29 H 21 Rate Blood Pressure 133/71 143/78 143/78 O2 Sat by Pulse 95 95 100 Oximetry 07/30/19 07/30/19 07/30/19 02:00 03:00 04:00 Temperature 102.1 F H Pulse Rate 116 H 116 H 116 H Pulse Rate [ 116 H From Monitor] Respiratory 18 30 H 23 Rate Blood Pressure 148/76 139/76 149/82 O2 Sat by Pulse 95 95 97 Oximetry 07/30/19 07/30/19 07/30/19 04:18 05:00 05:27 Temperature 100.8 F H Pulse Rate 114 H 110 H Pulse Rate [ From Monitor] Respiratory 23 Rate Blood Pressure 149/82 155/80 O2 Sat by Pulse 100 96 Oximetry 07/30/19 07/30/19 07/30/19 06:00 07:00 08:00 Temperature 102.2 F H Pulse Rate 111 H 113 H 107 H Pulse Rate [ 121 H From Monitor] Respiratory 29 H 18 34 H Rate Blood Pressure 155/82 159/84 157/81 O2 Sat by Pulse 97 98 96 Oximetry 07/30/19 07/30/19 08:44 09:17 Temperature Pulse Rate 114 H 110 H Pulse Rate [ From Monitor] Respiratory Rate Blood Pressure 164/95 155/84 O2 Sat by Pulse 100 Oximetry Constitutional: no acute distress, comatose Eyes: non-icteric ENT: other (orally intubated not on sedation) Neck: supple Effort: normal Ascultation: Bilateral: clear Gastrointestinal: normoactive bowel sounds, soft, non-tender Integumentary: normal CBC and BMP: 07/29/19 10:06 07/29/19 04:45 ABG, PT/INR, D-dimer: ABG ABG pH 7.457 pH Units (7.350-7.450) H 07/25/19 05:27 ABG pCO2 39.4 mm Hg 07/25/19 05:27 ABG pO2 75.5 mm Hg (80.0-90.0) L 07/25/19 05:27 ABG O2 Saturation 97.1 % (95.0-99.0) 07/25/19 05:27 PT/INR, D-dimer PT 20.0 Sec. (12.2-14.9) H 07/30/19 04:56 INR 1.67 (0.87-1.13) H 07/30/19 04:56 Abnormal lab findings: Abnormal Labs 07/12/19 07/12/19 07/12/19 14:46 15:08 15:08 WBC 14.7 H RBC 2.97 L Hgb 9.7 L Hct 29.0 L MCV 98 H MCH 33 H RDW 19.8 H Plt Count 124 L Lymph % (Auto) [place] % (Auto) Baso % (Auto) Lymph # [place] # Baso # Seg Neutrophils % Seg Neuts % (Manual) 91.0 H Lymphocytes % (Manual) 2.0 L Monocytes % (Manual) Nucleated RBC % 1.0 H Seg Neutrophils # Man 13.4 H Lymphocytes # (Manual) 0.3 L Monocytes # (Manual) PT 19.8 H INR 1.65 H APTT 47.8 H ABG pH ABG pO2 ABG HCO3 ABG O2 Saturation ABG Base Excess ABG Hemoglobin Oxyhemoglobin Sodium Potassium Chloride Carbon Dioxide BUN Creatinine Glucose POC Glucose 110 H Calcium Phosphorus Magnesium Iron TIBC Ferritin Total Bilirubin Direct Bilirubin AST Alkaline Phosphatase Lactate Dehydrogenase Troponin T NT-Pro-B Natriuret Pep Serum Total Protein Total Protein Albumin Rejht-1-Ltjyvnlfc Gamma Globulins PEP Interpretation LDL Cholesterol Direct Vitamin B12 Folate Urine WBC (Auto) Urine Creatinine Urine Total Protein Fluid Glucose Fluid Total Protein Crossmatch 01/07/12/19 07/12/19 15:08 15:08 15:08 WBC RBC Hgb Hct MCV MCH RDW Plt Count Lymph % (Auto) [place] % (Auto) Baso % (Auto) Lymph # [place] # Baso # Seg Neutrophils % Seg Neuts % (Manual) Lymphocytes % (Manual) Monocytes % (Manual) Nucleated RBC % Seg Neutrophils # Man Lymphocytes # (Manual) Monocytes # (Manual) PT INR APTT ABG pH ABG pO2 ABG HCO3 ABG O2 Saturation ABG Base Excess ABG Hemoglobin Oxyhemoglobin Sodium 125 L Potassium 5.5 H Chloride 84.9 L Carbon Dioxide 13 L BUN 70 H Creatinine 8.8 H Glucose POC Glucose Calcium 8.0 L Phosphorus Magnesium 1.30 L Iron TIBC Ferritin Total Bilirubin 1.30 H Direct Bilirubin 0.9 H AST 53 H Alkaline Phosphatase 208 H Lactate Dehydrogenase Troponin T 0.192 H* NT-Pro-B Natriuret Pep > 42413 H Serum Total Protein Total Protein Albumin 3.3 L Qqwru-6-Qjqbitfqb Gamma Globulins PEP Interpretation LDL Cholesterol Direct 40 L Vitamin B12 Folate Urine WBC (Auto) Urine Creatinine Urine Total Protein Fluid Glucose Fluid Total Protein Crossmatch 07/12/19 07/13/19 07/13/19 17:04 01:32 01:32 WBC RBC Hgb Hct MCV MCH RDW Plt Count Lymph % (Auto) [place] % (Auto) Baso % (Auto) Lymph # [place] # Baso # Seg Neutrophils % Seg Neuts % (Manual) Lymphocytes % (Manual) Monocytes % (Manual) Nucleated RBC % Seg Neutrophils # Man Lymphocytes # (Manual) Monocytes # (Manual) PT INR APTT ABG pH ABG pO2 ABG HCO3 ABG O2 Saturation ABG Base Excess ABG Hemoglobin Oxyhemoglobin Sodium 133 L D Potassium 5.3 H Chloride 90.8 L Carbon Dioxide 20 L D BUN 48 H Creatinine 6.2 H Glucose 105 H POC Glucose Calcium 8.2 L Phosphorus 4.90 H Magnesium 1.50 L Iron TIBC Ferritin Total Bilirubin Direct Bilirubin AST Alkaline Phosphatase Lactate Dehydrogenase Troponin T 0.188 H* NT-Pro-B Natriuret Pep Serum Total Protein Total Protein Albumin Pjyib-5-Ecdfubsuc Gamma Globulins PEP Interpretation LDL Cholesterol Direct Vitamin B12 Folate Urine WBC (Auto) Urine Creatinine Urine Total Protein Fluid Glucose Fluid Total Protein Crossmatch 07/13/19 07/13/19 07/13/19 04:28 04:28 16:16 WBC 15.9 H RBC 3.10 L Hgb 10.2 L Hct 30.6 L MCV 99 H MCH 33 H RDW 19.4 H Plt Count 135 L Lymph % (Auto) [place] % (Auto) Baso % (Auto) Lymph # [place] # Baso # Seg Neutrophils % Seg Neuts % (Manual) Lymphocytes % (Manual) 4.0 L Monocytes % (Manual) Nucleated RBC % Seg Neutrophils # Man 9.9 H Lymphocytes # (Manual) 0.6 L Monocytes # (Manual) PT INR APTT ABG pH ABG pO2 ABG HCO3 ABG O2 Saturation ABG Base Excess ABG Hemoglobin Oxyhemoglobin Sodium 132 L 134 L Potassium 5.1 H Chloride 90.3 L 92.2 L Carbon Dioxide 17 L 20 L BUN 47 H 55 H Creatinine 6.0 H 6.5 H Glucose 124 H POC Glucose Calcium 8.2 L 7.9 L Phosphorus Magnesium Iron TIBC Ferritin Total Bilirubin Direct Bilirubin AST Alkaline Phosphatase Lactate Dehydrogenase Troponin T NT-Pro-B Natriuret Pep Serum Total Protein Total Protein Albumin Oqkbz-4-Updlktxgn Gamma Globulins PEP Interpretation LDL Cholesterol Direct Vitamin B12 Folate Urine WBC (Auto) Urine Creatinine Urine Total Protein Fluid Glucose Fluid Total Protein Crossmatch 07/14/19 07/14/19 07/14/19 07:16 07:16 07:16 WBC RBC 2.65 L Hgb 8.6 L Hct 25.4 L MCV 96 H MCH 33 H RDW 19.7 H Plt Count 114 L Lymph % (Auto) [place] % (Auto) Baso % (Auto) Lymph # [place] # Baso # Seg Neutrophils % Seg Neuts % (Manual) 89.0 H Lymphocytes % (Manual) 4.0 L Monocytes % (Manual) Nucleated RBC % Seg Neutrophils # Man Lymphocytes # (Manual) 0.3 L Monocytes # (Manual) PT INR APTT ABG pH ABG pO2 ABG HCO3 ABG O2 Saturation ABG Base Excess ABG Hemoglobin Oxyhemoglobin Sodium 133 L Potassium Chloride 93.0 L Carbon Dioxide 18 L BUN 61 H Creatinine 7.3 H Glucose 113 H POC Glucose Calcium 7.7 L Phosphorus Magnesium Iron TIBC Ferritin Total Bilirubin Direct Bilirubin AST Alkaline Phosphatase Lactate Dehydrogenase 210 H Troponin T NT-Pro-B Natriuret Pep Serum Total Protein Total Protein Albumin Oefgj-9-Kjuaaqxnr Gamma Globulins PEP Interpretation LDL Cholesterol Direct Vitamin B12 Folate Urine WBC (Auto) Urine Creatinine Urine Total Protein Fluid Glucose Fluid Total Protein Crossmatch 07/14/19 07/14/19 07/14/19 10:45 16:40 17:28 WBC RBC Hgb Hct MCV MCH RDW Plt Count Lymph % (Auto) [place] % (Auto) Baso % (Auto) Lymph # [place] # Baso # Seg Neutrophils % Seg Neuts % (Manual) Lymphocytes % (Manual) Monocytes % (Manual) Nucleated RBC % Seg Neutrophils # Man Lymphocytes # (Manual) Monocytes # (Manual) PT INR APTT ABG pH ABG pO2 ABG HCO3 ABG O2 Saturation ABG Base Excess ABG Hemoglobin Oxyhemoglobin Sodium Potassium Chloride Carbon Dioxide BUN Creatinine Glucose POC Glucose Calcium Phosphorus Magnesium Iron TIBC Ferritin Total Bilirubin Direct Bilirubin AST Alkaline Phosphatase Lactate Dehydrogenase Troponin T NT-Pro-B Natriuret Pep Serum Total Protein Total Protein Albumin Cscon-8-Rfhnjvure Gamma Globulins PEP Interpretation LDL Cholesterol Direct Vitamin B12 Folate Urine WBC (Auto) Urine Creatinine 104.2 H 106.2 H Urine Total Protein 173 H Fluid Glucose 93 H Fluid Total Protein 4.7 L Crossmatch 07/14/19 07/14/19 07/15/19 17:28 20:43 06:30 WBC RBC 3.06 L Hgb 9.9 L Hct 29.7 L MCV 97 H MCH 33 H RDW 19.5 H Plt Count 101 L Lymph % (Auto) [place] % (Auto) Baso % (Auto) Lymph # [place] # Baso # Seg Neutrophils % Seg Neuts % (Manual) Lymphocytes % (Manual) Monocytes % (Manual) Nucleated RBC % Seg Neutrophils # Man Lymphocytes # (Manual) Monocytes # (Manual) PT INR APTT ABG pH ABG pO2 ABG HCO3 ABG O2 Saturation ABG Base Excess ABG Hemoglobin Oxyhemoglobin Sodium Potassium Chloride Carbon Dioxide BUN Creatinine Glucose POC Glucose 120 H Calcium Phosphorus Magnesium Iron TIBC Ferritin Total Bilirubin Direct Bilirubin AST Alkaline Phosphatase Lactate Dehydrogenase Troponin T NT-Pro-B Natriuret Pep Serum Total Protein Total Protein Albumin Vvcxb-2-Vjtklknlc Gamma Globulins PEP Interpretation LDL Cholesterol Direct Vitamin B12 Folate Urine WBC (Auto) 31.0 H Urine Creatinine Urine Total Protein Fluid Glucose Fluid Total Protein Crossmatch 07/15/19 07/15/19 07/15/19 06:30 06:30 06:30 WBC RBC Hgb Hct MCV MCH RDW Plt Count Lymph % (Auto) [place] % (Auto) Baso % (Auto) Lymph # [place] # Baso # Seg Neutrophils % Seg Neuts % (Manual) Lymphocytes % (Manual) Monocytes % (Manual) Nucleated RBC % Seg Neutrophils # Man Lymphocytes # (Manual) Monocytes # (Manual) PT INR APTT ABG pH ABG pO2 ABG HCO3 ABG O2 Saturation ABG Base Excess ABG Hemoglobin Oxyhemoglobin Sodium Potassium Chloride 95.2 L Carbon Dioxide BUN 42 H Creatinine 4.9 H Glucose POC Glucose Calcium Phosphorus Magnesium Iron 15 L TIBC 186 L Ferritin 428.2 H Total Bilirubin Direct Bilirubin AST 50 H Alkaline Phosphatase 191 H Lactate Dehydrogenase Troponin T NT-Pro-B Natriuret Pep Serum Total Protein Total Protein Albumin 3.1 L Wvqdh-5-Zaoxoybuk Gamma Globulins PEP Interpretation LDL Cholesterol Direct Vitamin B12 Folate Urine WBC (Auto) Urine Creatinine Urine Total Protein Fluid Glucose Fluid Total Protein Crossmatch 07/15/19 07/16/19 07/16/19 12:42 06:19 21:34 WBC RBC Hgb Hct MCV MCH RDW Plt Count Lymph % (Auto) [place] % (Auto) Baso % (Auto) Lymph # [place] # Baso # Seg Neutrophils % Seg Neuts % (Manual) Lymphocytes % (Manual) Monocytes % (Manual) Nucleated RBC % Seg Neutrophils # Man Lymphocytes # (Manual) Monocytes # (Manual) PT INR APTT ABG pH ABG pO2 ABG HCO3 ABG O2 Saturation ABG Base Excess ABG Hemoglobin Oxyhemoglobin Sodium 134 L 134 L Potassium Chloride 92.9 L 93.4 L Carbon Dioxide 20 L BUN 55 H 40 H Creatinine 5.6 H 4.4 H Glucose POC Glucose 140 H Calcium Phosphorus Magnesium Iron TIBC Ferritin Total Bilirubin Direct Bilirubin AST Alkaline Phosphatase Lactate Dehydrogenase Troponin T NT-Pro-B Natriuret Pep Serum Total Protein Total Protein Albumin Absxc-8-Jhfshnfop Gamma Globulins PEP Interpretation LDL Cholesterol Direct Vitamin B12 Folate Urine WBC (Auto) Urine Creatinine Urine Total Protein Fluid Glucose Fluid Total Protein Crossmatch 07/17/19 07/17/19 07/17/19 05:27 12:10 12:52 WBC RBC Hgb Hct MCV MCH RDW Plt Count Lymph % (Auto) [place] % (Auto) Baso % (Auto) Lymph # [place] # Baso # Seg Neutrophils % Seg Neuts % (Manual) Lymphocytes % (Manual) Monocytes % (Manual) Nucleated RBC % Seg Neutrophils # Man Lymphocytes # (Manual) Monocytes # (Manual) PT INR APTT ABG pH ABG pO2 ABG HCO3 ABG O2 Saturation ABG Base Excess ABG Hemoglobin Oxyhemoglobin Sodium 136 L Potassium Chloride 93.6 L Carbon Dioxide BUN 43 H Creatinine 4.8 H Glucose POC Glucose 122 H 122 H Calcium Phosphorus Magnesium Iron TIBC Ferritin Total Bilirubin Direct Bilirubin AST Alkaline Phosphatase Lactate Dehydrogenase Troponin T NT-Pro-B Natriuret Pep Serum Total Protein Total Protein Albumin Dicnr-6-Ixodudivi Gamma Globulins PEP Interpretation LDL Cholesterol Direct Vitamin B12 Folate Urine WBC (Auto) Urine Creatinine Urine Total Protein Fluid Glucose Fluid Total Protein Crossmatch 07/17/19 07/18/19 07/18/19 13:50 04:20 05:40 WBC RBC Hgb Hct MCV MCH RDW Plt Count Lymph % (Auto) [place] % (Auto) Baso % (Auto) Lymph # [place] # Baso # Seg Neutrophils % Seg Neuts % (Manual) Lymphocytes % (Manual) Monocytes % (Manual) Nucleated RBC % Seg Neutrophils # Man Lymphocytes # (Manual) Monocytes # (Manual) PT INR APTT ABG pH 7.262 L ABG pO2 195.5 H 238.9 H ABG HCO3 ABG O2 Saturation 99.1 H 99.4 H ABG Base Excess -2.9 L ABG Hemoglobin 8.6 L 10.9 L Oxyhemoglobin Sodium Potassium Chloride 94.5 L Carbon Dioxide BUN 61 H Creatinine 5.6 H Glucose 111 H POC Glucose Calcium Phosphorus 4.70 H Magnesium Iron TIBC Ferritin Total Bilirubin Direct Bilirubin AST Alkaline Phosphatase Lactate Dehydrogenase 294 H Troponin T NT-Pro-B Natriuret Pep Serum Total Protein Total Protein Albumin Gjszv-8-Gxhsiiocw Gamma Globulins PEP Interpretation LDL Cholesterol Direct Vitamin B12 Folate Urine WBC (Auto) Urine Creatinine Urine Total Protein Fluid Glucose Fluid Total Protein Crossmatch 07/18/19 07/18/19 07/18/19 05:40 05:40 10:30 WBC 22.7 H RBC 2.64 L Hgb 8.2 L Hct 24.9 L MCV 95 H MCH RDW 19.7 H Plt Count 94 L Lymph % (Auto) [place] % (Auto) Baso % (Auto) Lymph # [place] # Baso # Seg Neutrophils % Seg Neuts % (Manual) Lymphocytes % (Manual) Monocytes % (Manual) Nucleated RBC % Seg Neutrophils # Man Lymphocytes # (Manual) Monocytes # (Manual) PT INR APTT ABG pH 7.457 H ABG pO2 ABG HCO3 26.3 H ABG O2 Saturation ABG Base Excess ABG Hemoglobin 7.8 L Oxyhemoglobin 94.6 L Sodium Potassium Chloride Carbon Dioxide BUN Creatinine Glucose POC Glucose Calcium Phosphorus Magnesium Iron TIBC Ferritin Total Bilirubin Direct Bilirubin 0.7 H AST 94 H Alkaline Phosphatase 159 H Lactate Dehydrogenase Troponin T NT-Pro-B Natriuret Pep Serum Total Protein Total Protein 5.6 L D Albumin 2.5 L Mrqzm-6-Uwozekcaz Gamma Globulins PEP Interpretation LDL Cholesterol Direct Vitamin B12 Folate Urine WBC (Auto) Urine Creatinine Urine Total Protein Fluid Glucose Fluid Total Protein Crossmatch 07/18/19 07/19/19 07/19/19 Unknown 05:15 05:15 WBC RBC Hgb Hct MCV MCH RDW Plt Count Lymph % (Auto) [place] % (Auto) Baso % (Auto) Lymph # [place] # Baso # Seg Neutrophils % Seg Neuts % (Manual) Lymphocytes % (Manual) Monocytes % (Manual) Nucleated RBC % Seg Neutrophils # Man Lymphocytes # (Manual) Monocytes # (Manual) PT INR APTT ABG pH ABG pO2 ABG HCO3 ABG O2 Saturation ABG Base Excess ABG Hemoglobin 11.6 L Oxyhemoglobin 94.3 L Sodium 133 L Potassium Chloride 94.9 L Carbon Dioxide BUN 43 H Creatinine 4.0 H Glucose 118 H POC Glucose Calcium Phosphorus Magnesium 0.20 L* Iron TIBC Ferritin Total Bilirubin Direct Bilirubin AST Alkaline Phosphatase Lactate Dehydrogenase Troponin T NT-Pro-B Natriuret Pep Serum Total Protein Total Protein Albumin Nunpl-3-Ttykoheco Gamma Globulins PEP Interpretation LDL Cholesterol Direct Vitamin B12 Folate Urine WBC (Auto) Urine Creatinine Urine Total Protein Fluid Glucose Fluid Total Protein Crossmatch 07/19/19 07/19/19 07/20/19 05:15 06:00 06:15 WBC 14.6 H RBC 2.57 L Hgb 8.2 L Hct 24.3 L MCV 95 H MCH RDW 19.5 H Plt Count 101 L Lymph % (Auto) [place] % (Auto) Baso % (Auto) Lymph # [place] # Baso # Seg Neutrophils % Seg Neuts % (Manual) Lymphocytes % (Manual) Monocytes % (Manual) Nucleated RBC % Seg Neutrophils # Man Lymphocytes # (Manual) Monocytes # (Manual) PT INR APTT ABG pH ABG pO2 91.2 H ABG HCO3 27.5 H ABG O2 Saturation ABG Base Excess ABG Hemoglobin 8.3 L Oxyhemoglobin Sodium Potassium Chloride Carbon Dioxide BUN 61 H Creatinine 4.6 H Glucose 117 H POC Glucose Calcium Phosphorus Magnesium Iron TIBC Ferritin Total Bilirubin Direct Bilirubin AST Alkaline Phosphatase Lactate Dehydrogenase Troponin T NT-Pro-B Natriuret Pep Serum Total Protein Total Protein Albumin Nbcgu-7-Arkjftxju Gamma Globulins PEP Interpretation LDL Cholesterol Direct Vitamin B12 Folate Urine WBC (Auto) Urine Creatinine Urine Total Protein Fluid Glucose Fluid Total Protein Crossmatch 07/21/19 07/21/19 07/21/19 05:30 06:15 06:15 WBC 11.8 H RBC 2.45 L Hgb 7.9 L Hct 23.5 L MCV 96 H MCH RDW 19.4 H Plt Count Lymph % (Auto) [place] % (Auto) Baso % (Auto) Lymph # [place] # Baso # Seg Neutrophils % Seg Neuts % (Manual) Lymphocytes % (Manual) Monocytes % (Manual) Nucleated RBC % Seg Neutrophils # Man Lymphocytes # (Manual) Monocytes # (Manual) PT INR APTT ABG pH ABG pO2 104.5 H ABG HCO3 27.9 H ABG O2 Saturation ABG Base Excess 3.3 H ABG Hemoglobin 8.2 L Oxyhemoglobin Sodium Potassium 3.3 L Chloride Carbon Dioxide BUN 74 H Creatinine 4.3 H Glucose 127 H POC Glucose Calcium Phosphorus Magnesium Iron TIBC Ferritin Total Bilirubin Direct Bilirubin AST Alkaline Phosphatase Lactate Dehydrogenase Troponin T NT-Pro-B Natriuret Pep Serum Total Protein Total Protein Albumin Gwxyk-3-Cdbijzceg Gamma Globulins PEP Interpretation LDL Cholesterol Direct Vitamin B12 Folate Urine WBC (Auto) Urine Creatinine Urine Total Protein Fluid Glucose Fluid Total Protein Crossmatch 07/21/19 07/21/19 07/21/19 08:00 08:00 17:51 WBC RBC Hgb Hct MCV MCH RDW Plt Count Lymph % (Auto) [place] % (Auto) Baso % (Auto) Lymph # [place] # Baso # Seg Neutrophils % Seg Neuts % (Manual) Lymphocytes % (Manual) Monocytes % (Manual) Nucleated RBC % Seg Neutrophils # Man Lymphocytes # (Manual) Monocytes # (Manual) PT INR APTT ABG pH ABG pO2 ABG HCO3 ABG O2 Saturation ABG Base Excess ABG Hemoglobin Oxyhemoglobin Sodium Potassium 3.2 L Chloride Carbon Dioxide BUN Creatinine Glucose POC Glucose Calcium Phosphorus Magnesium Iron TIBC Ferritin Total Bilirubin Direct Bilirubin AST Alkaline Phosphatase Lactate Dehydrogenase Troponin T NT-Pro-B Natriuret Pep Serum Total Protein Total Protein Albumin Udokl-3-Nxtfadubg Gamma Globulins PEP Interpretation LDL Cholesterol Direct Vitamin B12 960.4 H Folate 6.18 L Urine WBC (Auto) Urine Creatinine Urine Total Protein Fluid Glucose Fluid Total Protein Crossmatch 07/22/19 07/22/19 07/22/19 03:40 06:00 21:45 WBC 12.6 H RBC 2.54 L Hgb 7.8 L Hct 24.2 L MCV 95 H MCH RDW 19.7 H Plt Count Lymph % (Auto) [place] % (Auto) Baso % (Auto) Lymph # [place] # Baso # Seg Neutrophils % Seg Neuts % (Manual) Lymphocytes % (Manual) Monocytes % (Manual) Nucleated RBC % Seg Neutrophils # Man Lymphocytes # (Manual) Monocytes # (Manual) PT INR APTT ABG pH ABG pO2 99.4 H ABG HCO3 27.3 H ABG O2 Saturation ABG Base Excess ABG Hemoglobin 9.2 L Oxyhemoglobin Sodium Potassium 3.1 L Chloride Carbon Dioxide BUN 75 H Creatinine 2.9 H Glucose 123 H POC Glucose Calcium Phosphorus Magnesium Iron TIBC Ferritin Total Bilirubin Direct Bilirubin AST Alkaline Phosphatase Lactate Dehydrogenase Troponin T NT-Pro-B Natriuret Pep Serum Total Protein Total Protein Albumin Vthbh-1-Gpmllzlau Gamma Globulins PEP Interpretation LDL Cholesterol Direct Vitamin B12 Folate Urine WBC (Auto) Urine Creatinine Urine Total Protein Fluid Glucose Fluid Total Protein Crossmatch 07/23/19 07/23/19 07/24/19 05:30 05:30 04:12 WBC RBC Hgb Hct MCV MCH RDW Plt Count Lymph % (Auto) [place] % (Auto) Baso % (Auto) Lymph # [place] # Baso # Seg Neutrophils % Seg Neuts % (Manual) Lymphocytes % (Manual) Monocytes % (Manual) Nucleated RBC % Seg Neutrophils # Man Lymphocytes # (Manual) Monocytes # (Manual) PT INR APTT ABG pH ABG pO2 123.1 H ABG HCO3 27.1 H ABG O2 Saturation ABG Base Excess ABG Hemoglobin 9.3 L Oxyhemoglobin Sodium Potassium 3.1 L Chloride Carbon Dioxide BUN 80 H Creatinine 2.6 H Glucose 112 H POC Glucose Calcium Phosphorus Magnesium Iron TIBC Ferritin Total Bilirubin Direct Bilirubin AST Alkaline Phosphatase Lactate Dehydrogenase Troponin T NT-Pro-B Natriuret Pep Serum Total Protein 5.9 L Total Protein Albumin 2.2 L Fhpoz-0-Qpmnuvcnx 0.5 H Gamma Globulins 2.0 H PEP Interpretation see below H LDL Cholesterol Direct Vitamin B12 Folate Urine WBC (Auto) Urine Creatinine Urine Total Protein Fluid Glucose Fluid Total Protein Crossmatch 07/24/19 07/24/19 07/25/19 07:03 07:03 04:05 WBC RBC Hgb Hct MCV MCH RDW Plt Count Lymph % (Auto) [place] % (Auto) Baso % (Auto) Lymph # [place] # Baso # Seg Neutrophils % Seg Neuts % (Manual) Lymphocytes % (Manual) Monocytes % (Manual) Nucleated RBC % Seg Neutrophils # Man Lymphocytes # (Manual) Monocytes # (Manual) PT INR APTT ABG pH ABG pO2 ABG HCO3 ABG O2 Saturation ABG Base Excess ABG Hemoglobin Oxyhemoglobin Sodium 147 H Potassium 3.4 L Chloride 107.5 H 110.1 H Carbon Dioxide BUN 70 H 62 H Creatinine 1.8 H Glucose 112 H 115 H POC Glucose Calcium Phosphorus Magnesium 1.50 L Iron TIBC Ferritin Total Bilirubin Direct Bilirubin AST Alkaline Phosphatase Lactate Dehydrogenase Troponin T NT-Pro-B Natriuret Pep Serum Total Protein Total Protein Albumin Hgvrr-9-Iscancfci Gamma Globulins PEP Interpretation LDL Cholesterol Direct Vitamin B12 Folate Urine WBC (Auto) Urine Creatinine Urine Total Protein Fluid Glucose Fluid Total Protein Crossmatch 07/25/19 07/25/19 07/26/19 04:05 05:27 04:47 WBC 11.4 H RBC 2.39 L Hgb 7.5 L Hct 23.0 L MCV 96 H MCH RDW 19.4 H Plt Count Lymph % (Auto) [place] % (Auto) Baso % (Auto) Lymph # [place] # Baso # Seg Neutrophils % Seg Neuts % (Manual) 76.0 H Lymphocytes % (Manual) 9.0 L Monocytes % (Manual) 11.0 H Nucleated RBC % Seg Neutrophils # Man 8.7 H Lymphocytes # (Manual) 1.0 L Monocytes # (Manual) 1.3 H PT INR APTT ABG pH 7.457 H ABG pO2 75.5 L ABG HCO3 27.2 H ABG O2 Saturation ABG Base Excess 3.1 H ABG Hemoglobin 7.0 L Oxyhemoglobin 94.4 L Sodium 147 H Potassium Chloride 111.5 H Carbon Dioxide BUN 57 H Creatinine Glucose 121 H POC Glucose Calcium Phosphorus Magnesium Iron TIBC Ferritin Total Bilirubin Direct Bilirubin AST Alkaline Phosphatase Lactate Dehydrogenase Troponin T NT-Pro-B Natriuret Pep Serum Total Protein Total Protein Albumin Ryqqq-9-Lwmihgdus Gamma Globulins PEP Interpretation LDL Cholesterol Direct Vitamin B12 Folate Urine WBC (Auto) Urine Creatinine Urine Total Protein Fluid Glucose Fluid Total Protein Crossmatch 07/26/19 07/27/19 07/27/19 04:47 01:17 05:55 WBC RBC Hgb Hct MCV MCH RDW Plt Count Lymph % (Auto) [place] % (Auto) Baso % (Auto) Lymph # [place] # Baso # Seg Neutrophils % Seg Neuts % (Manual) Lymphocytes % (Manual) Monocytes % (Manual) Nucleated RBC % Seg Neutrophils # Man Lymphocytes # (Manual) Monocytes # (Manual) PT INR APTT ABG pH ABG pO2 ABG HCO3 ABG O2 Saturation ABG Base Excess ABG Hemoglobin Oxyhemoglobin Sodium 147 H Potassium Chloride 109.6 H Carbon Dioxide BUN 43 H Creatinine Glucose 113 H POC Glucose 122 H Calcium Phosphorus Magnesium 1.50 L Iron TIBC Ferritin Total Bilirubin Direct Bilirubin AST Alkaline Phosphatase Lactate Dehydrogenase Troponin T NT-Pro-B Natriuret Pep Serum Total Protein Total Protein Albumin Jigoa-4-Qwojsntau Gamma Globulins PEP Interpretation LDL Cholesterol Direct Vitamin B12 Folate Urine WBC (Auto) Urine Creatinine Urine Total Protein Fluid Glucose Fluid Total Protein Crossmatch 07/28/19 07/28/19 07/28/19 08:06 12:29 13:31 WBC 11.3 H RBC 2.16 L Hgb 6.7 L Hct 20.9 L MCV 97 H MCH RDW 19.0 H Plt Count Lymph % (Auto) [place] % (Auto) Baso % (Auto) Lymph # [place] # Baso # Seg Neutrophils % Seg Neuts % (Manual) Lymphocytes % (Manual) Monocytes % (Manual) Nucleated RBC % Seg Neutrophils # Man Lymphocytes # (Manual) Monocytes # (Manual) PT 21.4 H INR 1.82 H APTT ABG pH ABG pO2 ABG HCO3 ABG O2 Saturation ABG Base Excess ABG Hemoglobin Oxyhemoglobin Sodium 147 H Potassium Chloride 111.0 H Carbon Dioxide BUN 35 H Creatinine Glucose 119 H POC Glucose Calcium Phosphorus Magnesium 1.50 L Iron TIBC Ferritin Total Bilirubin Direct Bilirubin AST Alkaline Phosphatase Lactate Dehydrogenase Troponin T NT-Pro-B Natriuret Pep Serum Total Protein Total Protein Albumin Rgeuc-7-Anpxgxryv Gamma Globulins PEP Interpretation LDL Cholesterol Direct Vitamin B12 Folate Urine WBC (Auto) Urine Creatinine Urine Total Protein Fluid Glucose Fluid Total Protein Crossmatch 07/28/19 07/29/19 07/29/19 16:44 04:45 04:45 WBC RBC Hgb Hct MCV MCH RDW Plt Count Lymph % (Auto) [place] % (Auto) Baso % (Auto) Lymph # [place] # Baso # Seg Neutrophils % Seg Neuts % (Manual) Lymphocytes % (Manual) Monocytes % (Manual) Nucleated RBC % Seg Neutrophils # Man Lymphocytes # (Manual) Monocytes # (Manual) PT 20.2 H INR 1.69 H APTT ABG pH ABG pO2 ABG HCO3 ABG O2 Saturation ABG Base Excess ABG Hemoglobin Oxyhemoglobin Sodium 148 H Potassium Chloride 111.8 H Carbon Dioxide BUN 29 H Creatinine Glucose 104 H POC Glucose Calcium Phosphorus Magnesium Iron TIBC Ferritin Total Bilirubin Direct Bilirubin AST Alkaline Phosphatase Lactate Dehydrogenase Troponin T NT-Pro-B Natriuret Pep Serum Total Protein Total Protein Albumin Pigzd-9-Cfonywoja Gamma Globulins PEP Interpretation LDL Cholesterol Direct Vitamin B12 Folate Urine WBC (Auto) Urine Creatinine Urine Total Protein Fluid Glucose Fluid Total Protein Crossmatch See Detail 07/29/19 07/30/19 07/30/19 10:06 04:56 04:56 WBC RBC 2.40 L Hgb 7.3 L Hct 22.8 L MCV 95 H MCH RDW 21.2 H Plt Count Lymph % (Auto) 11.0 L [place] % (Auto) 11.1 H Baso % (Auto) 2.3 H Lymph # 1.0 L [place] # 1.1 H Baso # 0.2 H Seg Neutrophils % 72.7 H Seg Neuts % (Manual) Lymphocytes % (Manual) Monocytes % (Manual) Nucleated RBC % Seg Neutrophils # Man Lymphocytes # (Manual) Monocytes # (Manual) PT 20.0 H INR 1.67 H APTT ABG pH ABG pO2 ABG HCO3 ABG O2 Saturation ABG Base Excess ABG Hemoglobin Oxyhemoglobin Sodium Potassium Chloride Carbon Dioxide BUN Creatinine Glucose POC Glucose Calcium Phosphorus Magnesium 1.50 L Iron TIBC Ferritin Total Bilirubin Direct Bilirubin AST Alkaline Phosphatase Lactate Dehydrogenase Troponin T NT-Pro-B Natriuret Pep Serum Total Protein Total Protein Albumin Vicdw-1-Kiahnvpgr Gamma Globulins PEP Interpretation LDL Cholesterol Direct Vitamin B12 Folate Urine WBC (Auto) Urine Creatinine Urine Total Protein Fluid Glucose Fluid Total Protein Crossmatch
--- NOTE | 2019-07-30 11:36 | Progress Note ---
Assessment and Plan 48 yo M s/p percutaneous tracheostomy, fiberoptic bronchoscopy, PEG tube placement for VDRF, POD 1 Plan: 1. Vent management/weaning per CCU team 2. DC tracheostomy sutures on POD 5 3. continue TF at goal Will s/o Thank you, please call with questions. Subjective Date of service: 07/30/19 Narrative: Pt seen and examined. No overnight events. No f/c. Objective Vital Signs - 12hr 07/30/19 07/30/19 07/30/19 00:00 01:00 01:17 Temperature 102.7 F H Pulse Rate 119 H 120 H 117 H Pulse Rate [ 121 H From Monitor] Respiratory 29 H 21 Rate Blood Pressure 133/71 143/78 143/78 O2 Sat by Pulse 95 95 100 Oximetry 07/30/19 07/30/19 07/30/19 02:00 03:00 04:00 Temperature 102.1 F H Pulse Rate 116 H 116 H 116 H Pulse Rate [ 116 H From Monitor] Respiratory 18 30 H 23 Rate Blood Pressure 148/76 139/76 149/82 O2 Sat by Pulse 95 95 97 Oximetry 07/30/19 07/30/19 07/30/19 04:18 05:00 05:27 Temperature 100.8 F H Pulse Rate 114 H 110 H Pulse Rate [ From Monitor] Respiratory 23 Rate Blood Pressure 149/82 155/80 O2 Sat by Pulse 100 96 Oximetry 07/30/19 07/30/19 07/30/19 06:00 07:00 08:00 Temperature 102.2 F H Pulse Rate 111 H 113 H 107 H Pulse Rate [ 121 H From Monitor] Respiratory 29 H 18 34 H Rate Blood Pressure 155/82 159/84 157/81 O2 Sat by Pulse 97 98 96 Oximetry 07/30/19 07/30/19 08:44 09:17 Temperature Pulse Rate 114 H 110 H Pulse Rate [ From Monitor] Respiratory Rate Blood Pressure 164/95 155/84 O2 Sat by Pulse 100 Oximetry - General physical appearance Narrative Exam: Gen: Awake on vent. Eyes open spontaneously. Does not follow commands ENT: Tracheostomy in place - no edema/hematoma. Old blood on drain dressing CV: s1, S2+ Resp: on vent. Abd: soft, NT, ND. PEG in place with TF running - bumper at 2 cm. Dressing c/d/i Ext: +edema - Labs 07/29/19 10:06 07/29/19 04:45
--- NOTE | 2019-07-30 11:54 | Progress Note ---
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 Objective Vital Signs Temp Pulse Pulse Resp BP Pulse Ox 07/30/19 09:17 110 H 155/84 07/30/19 08:44 114 H 164/95 100 07/30/19 08:00 102.2 F H 107 H 121 H 34 H 157/81 96 07/30/19 07:00 113 H 18 159/84 98 07/30/19 06:00 111 H 29 H 155/82 97 07/30/19 05:27 100.8 F H 07/30/19 05:00 110 H 23 155/80 96 07/30/19 04:18 114 H 149/82 100 07/30/19 04:00 102.1 F H 116 H 116 H 23 149/82 97 07/30/19 03:00 116 H 30 H 139/76 95 07/30/19 02:00 116 H 18 148/76 95 07/30/19 01:17 117 H 143/78 100 07/30/19 01:00 120 H 21 143/78 95 07/30/19 00:00 102.7 F H 119 H 121 H 29 H 133/71 95 07/29/19 23:00 119 H 36 H 140/75 95 07/29/19 22:10 131 H 145/91 100 07/29/19 22:00 126 H 18 138/74 94 07/29/19 21:44 115 H 140/76 07/29/19 21:19 111 H 19 140/73 99 07/29/19 21:00 115 H 16 138/76 94 07/29/19 20:00 101.2 F H 117 H 117 H 22 137/72 96 07/29/19 19:00 128 H 23 150/85 97 07/29/19 18:00 127 H 17 159/95 94 07/29/19 17:00 111 H 19 158/88 94 07/29/19 16:01 133 H 22 189/106 94 07/29/19 16:00 101.2 F H 112 H 105 H 20 100 07/29/19 15:21 106 H 93/58 100 07/29/19 15:05 112 H 18 155/88 100 07/29/19 15:00 114 H 20 155/88 97 07/29/19 14:50 109 H 16 136/81 100 07/29/19 14:35 99.5 F 107 H 14 129/74 100 07/29/19 14:05 99 07/29/19 14:00 135 H 16 162/93 95 07/29/19 13:50 122 H 12 161/93 100 07/29/19 13:00 113 H 18 159/87 96 07/29/19 12:19 106 H 93/58 98 07/29/19 12:00 101.1 F H 111 H 107 H 17 156/85 93 - Physical Examination General: Other (unresponsive on the vent) - Labs and Meds Coagulation 07/30/19 Range/Units 04:56 PT 20.0 H (12.2-14.9) Sec. INR 1.67 H (0.87-1.13)
--- NOTE | 2019-07-30 12:54 | Vascular Lab Report ---
DUPLEX DOPPLER LOWER EXTREMITY VEINS, BILATERAL INDICATION: fever. TECHNIQUE: Duplex doppler imaging was performed through the veins of both lower extremities using venous oneida brennan and other maneuvers. COMPARISON: No relevant prior imaging study available. FINDINGS: Right Common femoral vein: Negative. Right Superficial femoral vein: Negative. Right Popliteal vein: Negative. Right Calf veins: Negative. Left Common femoral vein: Negative. Left Superficial femoral vein: Negative. Left Popliteal vein: Negative. Left Calf veins: Negative. Additional findings: None.. IMPRESSION: 1. No sonographic evidence for DVT in either lower extremity. Signer Name: Nick Pop MD Signed: 07/30/2019 12:49 PM Workstation Name: [id number]
[2019-07-30] MEDS: hydrALAZINE 20 MG/1 ML INJ IV PRN (13:59)
[2019-07-30] MEDS: PHYTONADIONE(ADULT ONLY) 10 MG in SODIUM CHLORIDE 0.9% 50 ML IV SCH (17:09)
--- NOTE | 2019-07-30 18:15 | Progress Note ---
Assessment and Plan Cultures: 07/12/2019 blood culture: Negative 07/14/2019 urine culture: mixed growth 07/17/2019 tracheal aspirate: E coli 07/28/2019 urine culture: pending 07/28/2019 blood culture: pending A/P: 48/M with deafness, HTN, CHF, anxiety, depression, COPD was admitted to the hospital on 07/12/2019 with shortness of breath, found to have hypoxia and renal failure and was started on urgent dialysis, now with: #Shock, following PEA cardiac arrest #Bilateral multifocal pneumonia, acute respiratory failure: Possibly aspiration v/s lung contusion from CPR following cardiac arrest. #Acute renal failure: Dialysis requiring. Nephrology following, evaluating for glomerulonephritis and vasculitis. Patient also has rare schistocytes in peripheral blood along with few eosinophils in urine. Renally dose abx. #CHF #Acute encephalopathy: post arrest. Recs: -Remain off antibiotics for now -Follow-up urine and blood cultures - follow up fever and WBC - possible central fevers - Poor prognosis. - leery of empiric antibiotics in this patient given severe medical co morbidities and poor prognosis. - procalcitonin significantly improved, though not normal. Repeat cultures no growth. Despite persistent fevers, do not recommend empiric antibiotics. Will follow. Salo Morgan MD [facility] ([facility] M: [phone] O: [phone] F: [phone] Subjective Date of service: 07/30/19 Principal diagnosis: anemia Interval history: Remains febrile at 101.5. though white cunt remains normal. Now trach/PEG Objective - Exam Narrative Exam: Constitutional: non-responsive. Trach/PEG Head, Ears, Nose: Trach Cardiovascular: S1, S2 normal. Respiratory: Good air entry, clear to auscultation bilaterally GI: Soft, non-tender; bowel sounds +PEG Musculoskeletal: No pedal edema, no cyanosis. Skin: No rash or abscess Hem/Lymphatic: No palpable cervical or supraclavicular nodes. No lymphangitis Psych: Non-responsive. Neurological: Non-responsive - Constitutional Vitals: Vital Signs Temp Pulse Resp BP Pulse Ox 101.5 F H 112 H 18 169/104 100 07/30/19 12:00 07/30/19 16:59 07/30/19 16:01 07/30/19 16:59 07/30/19 16:59 Temperature -Last 24 Hours Temperature 101.5 F Temperature 102.2 F Temperature 100.8 F Temperature 102.1 F Temperature 102.7 F Temperature 101.2 F - Labs CBC & Chem 7: 07/29/19 10:06 07/29/19 04:45 Labs: Abnormal lab results 07/30/19 07/30/19 Range/Units 04:56 04:56 PT 20.0 H (12.2-14.9) Sec. INR 1.67 H (0.87-1.13) Magnesium 1.50 L (1.7-2.3) mg/dL
[2019-07-30] MEDS ORDERED: APIXABAN 5 MG TAB PO SCH (22:00)
[2019-07-31 05:34] LABS: Basophils # (Auto) 0.1 K/mm3 (0.0-0.1); Basophils % (Auto) 0.8 % (0.0-1.8); Eosinophils # (Auto) 0.4 K/mm3 (0.0-0.4); Eosinophils % (Auto) 2.9 % (0.0-4.3); Hematocrit 23.4 % (35.5-45.6); Hemoglobin 7.4 gm/dl (11.8-15.2); Lymphocytes # (Auto) 0.8 K/mm3 (1.2-5.4); Lymphocytes % (Auto) 6.6 % (13.4-35.0); Mean Corpuscular HGB Conc 32 % (32-34); Mean Corpuscular Volume 95 fl (84-94); Monocytes % (Auto) 8.1 % (0.0-7.3); Platelet Count 243 K/mm3 (140-440); Red Blood Count 2.45 M/mm3 (3.65-5.03)
[2019-07-31 05:40] LABS: Red Cell Distribution Width 20.2 % (13.2-15.2)
[2019-07-31 05:44] LABS: INR 1.69 (0.87-1.13)
[2019-07-31] MEDS ORDERED: LACTATED RINGERS 2,000 ML IV ONE (07:30)
[2019-07-31] MEDS ORDERED: SODIUM CHLORIDE 0.9% 500 ML 500 ML ONE (07:36)
[2019-07-31] MEDS ORDERED: LIDOCAINE (1%) 10 MG/1 ML VIAL 20 ML MDV ONE (07:58)
[2019-07-31] MEDS ORDERED: SODIUM CHLORIDE 0.9% 500 ML IVPB IV SCH (08:00)
[2019-07-31] MEDS ORDERED: LIDOCAINE (1%) 10 MG/1 ML VIAL 20 ML MDV INFILTRATI ONE (08:30)
--- NOTE | 2019-07-31 08:42 | Progress Note ---
Assessment and Plan 48 y/o male with inhouse cardiac arrest x2 now with blood coming from trach vs around the trach 1. Will bronch this am 2. Spoke with surgery, patient had significant oozing during trach placement. No large vessels were visualized. Likely had worsening oozing once eliquis was started. They will re-wrap the site with surgiceal and redress. 3. BP control, now hypertensive, has art line 4. Prognosis remains guarded to poor given lack of improvement in mental state. CCT 31 minutes. Subjective Date of service: 07/31/19 Principal diagnosis: anemia Interval history: Called by nursing this morning for blood coming out of the Trach. Bradycardia occurred and then hypotension but not sure if the hypotension was accurate. Mental status is unchanged. Stopped the Eliquis therapy. Objective Vital Signs - 12hr 07/30/19 07/30/19 07/30/19 21:01 22:00 22:01 Temperature Pulse Rate 114 H 113 H 111 H Pulse Rate [ From Monitor] Respiratory 22 22 Rate Blood Pressure 173/93 145/96 139/92 O2 Sat by Pulse 98 Oximetry 07/30/19 07/31/19 07/31/19 23:01 00:00 00:01 Temperature 97.9 F Pulse Rate 118 H 105 H 108 H Pulse Rate [ 108 H From Monitor] Respiratory 19 20 22 Rate Blood Pressure 156/90 150/87 O2 Sat by Pulse 98 100 95 Oximetry 07/31/19 07/31/19 07/31/19 00:13 00:14 01:01 Temperature 99.8 F H Pulse Rate 104 H 102 H Pulse Rate [ From Monitor] Respiratory 20 Rate Blood Pressure 150/87 150/84 O2 Sat by Pulse 99 96 Oximetry 07/31/19 07/31/19 07/31/19 02:01 03:01 04:00 Temperature 99.9 F H Pulse Rate 105 H 99 H 137 H Pulse Rate [ 103 H From Monitor] Respiratory 20 18 20 Rate Blood Pressure 151/91 146/85 O2 Sat by Pulse 95 96 100 Oximetry 07/31/19 07/31/19 07/31/19 04:01 04:19 05:00 Temperature Pulse Rate 107 H 121 H 104 H Pulse Rate [ From Monitor] Respiratory 25 H 19 Rate Blood Pressure 145/93 145/93 138/93 O2 Sat by Pulse 98 100 99 Oximetry 07/31/19 07/31/19 07/31/19 06:00 07:01 08:17 Temperature Pulse Rate 107 H 137 H 137 H Pulse Rate [ From Monitor] Respiratory 20 22 Rate Blood Pressure 159/93 42/25 195/77 O2 Sat by Pulse 100 100 100 Oximetry Constitutional: no acute distress, comatose Eyes: non-icteric ENT: other (orally intubated not on sedation) Neck: supple Effort: normal Ascultation: Bilateral: clear Gastrointestinal: normoactive bowel sounds, soft, non-tender Integumentary: normal CBC and BMP: 07/31/19 04:53 07/29/19 04:45 ABG, PT/INR, D-dimer: ABG ABG pH 7.457 pH Units (7.350-7.450) H 07/25/19 05:27 ABG pCO2 39.4 mm Hg 07/25/19 05:27 ABG pO2 75.5 mm Hg (80.0-90.0) L 07/25/19 05:27 ABG O2 Saturation 97.1 % (95.0-99.0) 07/25/19 05:27 PT/INR, D-dimer PT 20.2 Sec. (12.2-14.9) H 07/31/19 04:53 INR 1.69 (0.87-1.13) H 07/31/19 04:53 Abnormal lab findings: Abnormal Labs 07/12/19 07/12/19 07/12/19 14:46 15:08 15:08 WBC 14.7 H RBC 2.97 L Hgb 9.7 L Hct 29.0 L MCV 98 H MCH 33 H RDW 19.8 H Plt Count 124 L Lymph % (Auto) [place] % (Auto) Baso % (Auto) Lymph # [place] # Baso # Seg Neutrophils % Seg Neuts % (Manual) 91.0 H Lymphocytes % (Manual) 2.0 L Monocytes % (Manual) Nucleated RBC % 1.0 H Seg Neutrophils # Seg Neutrophils # Man 13.4 H Lymphocytes # (Manual) 0.3 L Monocytes # (Manual) PT 19.8 H INR 1.65 H APTT 47.8 H ABG pH ABG pO2 ABG HCO3 ABG O2 Saturation ABG Base Excess ABG Hemoglobin Oxyhemoglobin Sodium Potassium Chloride Carbon Dioxide BUN Creatinine Glucose POC Glucose 110 H Calcium Phosphorus Magnesium Iron TIBC Ferritin Total Bilirubin Direct Bilirubin AST Alkaline Phosphatase Lactate Dehydrogenase Troponin T NT-Pro-B Natriuret Pep Serum Total Protein Total Protein Albumin Vlkbm-7-Mttelmcso Gamma Globulins PEP Interpretation LDL Cholesterol Direct Vitamin B12 Folate Urine WBC (Auto) Urine Creatinine Urine Total Protein Fluid Glucose Fluid Total Protein Crossmatch 07/12/19 07/12/19 07/12/19 15:08 15:08 15:08 WBC RBC Hgb Hct MCV MCH RDW Plt Count Lymph % (Auto) [place] % (Auto) Baso % (Auto) Lymph # [place] # Baso # Seg Neutrophils % Seg Neuts % (Manual) Lymphocytes % (Manual) Monocytes % (Manual) Nucleated RBC % Seg Neutrophils # Seg Neutrophils # Man Lymphocytes # (Manual) Monocytes # (Manual) PT INR APTT ABG pH ABG pO2 ABG HCO3 ABG O2 Saturation ABG Base Excess ABG Hemoglobin Oxyhemoglobin Sodium 125 L Potassium 5.5 H Chloride 84.9 L Carbon Dioxide 13 L BUN 70 H Creatinine 8.8 H Glucose POC Glucose Calcium 8.0 L Phosphorus Magnesium 1.30 L Iron TIBC Ferritin Total Bilirubin 1.30 H Direct Bilirubin 0.9 H AST 53 H Alkaline Phosphatase 208 H Lactate Dehydrogenase Troponin T 0.192 H* NT-Pro-B Natriuret Pep > 04162 H Serum Total Protein Total Protein Albumin 3.3 L Mhyil-9-Fvzlohmpi Gamma Globulins PEP Interpretation LDL Cholesterol Direct 40 L Vitamin B12 Folate Urine WBC (Auto) Urine Creatinine Urine Total Protein Fluid Glucose Fluid Total Protein Crossmatch 07/12/19 07/13/19 07/13/19 17:04 01:32 01:32 WBC RBC Hgb Hct MCV MCH RDW Plt Count Lymph % (Auto) [place] % (Auto) Baso % (Auto) Lymph # [place] # Baso # Seg Neutrophils % Seg Neuts % (Manual) Lymphocytes % (Manual) Monocytes % (Manual) Nucleated RBC % Seg Neutrophils # Seg Neutrophils # Man Lymphocytes # (Manual) Monocytes # (Manual) PT INR APTT ABG pH ABG pO2 ABG HCO3 ABG O2 Saturation ABG Base Excess ABG Hemoglobin Oxyhemoglobin Sodium 133 L D Potassium 5.3 H Chloride 90.8 L Carbon Dioxide 20 L D BUN 48 H Creatinine 6.2 H Glucose 105 H POC Glucose Calcium 8.2 L Phosphorus 4.90 H Magnesium 1.50 L Iron TIBC Ferritin Total Bilirubin Direct Bilirubin AST Alkaline Phosphatase Lactate Dehydrogenase Troponin T 0.188 H* NT-Pro-B Natriuret Pep Serum Total Protein Total Protein Albumin Eewkc-5-Syyhehywj Gamma Globulins PEP Interpretation LDL Cholesterol Direct Vitamin B12 Folate Urine WBC (Auto) Urine Creatinine Urine Total Protein Fluid Glucose Fluid Total Protein Crossmatch 07/13/19 07/13/19 07/13/19 04:28 04:28 16:16 WBC 15.9 H RBC 3.10 L Hgb 10.2 L Hct 30.6 L MCV 99 H MCH 33 H RDW 19.4 H Plt Count 135 L Lymph % (Auto) [place] % (Auto) Baso % (Auto) Lymph # [place] # Baso # Seg Neutrophils % Seg Neuts % (Manual) Lymphocytes % (Manual) 4.0 L Monocytes % (Manual) Nucleated RBC % Seg Neutrophils # Seg Neutrophils # Man 9.9 H Lymphocytes # (Manual) 0.6 L Monocytes # (Manual) PT INR APTT ABG pH ABG pO2 ABG HCO3 ABG O2 Saturation ABG Base Excess ABG Hemoglobin Oxyhemoglobin Sodium 132 L 134 L Potassium 5.1 H Chloride 90.3 L 92.2 L Carbon Dioxide 17 L 20 L BUN 47 H 55 H Creatinine 6.0 H 6.5 H Glucose 124 H POC Glucose Calcium 8.2 L 7.9 L Phosphorus Magnesium Iron TIBC Ferritin Total Bilirubin Direct Bilirubin AST Alkaline Phosphatase Lactate Dehydrogenase Troponin T NT-Pro-B Natriuret Pep Serum Total Protein Total Protein Albumin Yjoqz-5-Loyrryjoo Gamma Globulins PEP Interpretation LDL Cholesterol Direct Vitamin B12 Folate Urine WBC (Auto) Urine Creatinine Urine Total Protein Fluid Glucose Fluid Total Protein Crossmatch 07/14/19 07/14/19 07/14/19 07:16 07:16 07:16 WBC RBC 2.65 L Hgb 8.6 L Hct 25.4 L MCV 96 H MCH 33 H RDW 19.7 H Plt Count 114 L Lymph % (Auto) [place] % (Auto) Baso % (Auto) Lymph # [place] # Baso # Seg Neutrophils % Seg Neuts % (Manual) 89.0 H Lymphocytes % (Manual) 4.0 L Monocytes % (Manual) Nucleated RBC % Seg Neutrophils # Seg Neutrophils # Man Lymphocytes # (Manual) 0.3 L Monocytes # (Manual) PT INR APTT ABG pH ABG pO2 ABG HCO3 ABG O2 Saturation ABG Base Excess ABG Hemoglobin Oxyhemoglobin Sodium 133 L Potassium Chloride 93.0 L Carbon Dioxide 18 L BUN 61 H Creatinine 7.3 H Glucose 113 H POC Glucose Calcium 7.7 L Phosphorus Magnesium Iron TIBC Ferritin Total Bilirubin Direct Bilirubin AST Alkaline Phosphatase Lactate Dehydrogenase 210 H Troponin T NT-Pro-B Natriuret Pep Serum Total Protein Total Protein Albumin Ncpdd-0-Ucfpusntp Gamma Globulins PEP Interpretation LDL Cholesterol Direct Vitamin B12 Folate Urine WBC (Auto) Urine Creatinine Urine Total Protein Fluid Glucose Fluid Total Protein Crossmatch 07/14/19 07/14/19 07/14/19 10:45 16:40 17:28 WBC RBC Hgb Hct MCV MCH RDW Plt Count Lymph % (Auto) [place] % (Auto) Baso % (Auto) Lymph # [place] # Baso # Seg Neutrophils % Seg Neuts % (Manual) Lymphocytes % (Manual) Monocytes % (Manual) Nucleated RBC % Seg Neutrophils # Seg Neutrophils # Man Lymphocytes # (Manual) Monocytes # (Manual) PT INR APTT ABG pH ABG pO2 ABG HCO3 ABG O2 Saturation ABG Base Excess ABG Hemoglobin Oxyhemoglobin Sodium Potassium Chloride Carbon Dioxide BUN Creatinine Glucose POC Glucose Calcium Phosphorus Magnesium Iron TIBC Ferritin Total Bilirubin Direct Bilirubin AST Alkaline Phosphatase Lactate Dehydrogenase Troponin T NT-Pro-B Natriuret Pep Serum Total Protein Total Protein Albumin Zdpsi-4-Rjeykwhbs Gamma Globulins PEP Interpretation LDL Cholesterol Direct Vitamin B12 Folate Urine WBC (Auto) Urine Creatinine 104.2 H 106.2 H Urine Total Protein 173 H Fluid Glucose 93 H Fluid Total Protein 4.7 L Crossmatch 07/14/19 07/14/19 07/15/19 17:28 20:43 06:30 WBC RBC 3.06 L Hgb 9.9 L Hct 29.7 L MCV 97 H MCH 33 H RDW 19.5 H Plt Count 101 L Lymph % (Auto) [place] % (Auto) Baso % (Auto) Lymph # [place] # Baso # Seg Neutrophils % Seg Neuts % (Manual) Lymphocytes % (Manual) Monocytes % (Manual) Nucleated RBC % Seg Neutrophils # Seg Neutrophils # Man Lymphocytes # (Manual) Monocytes # (Manual) PT INR APTT ABG pH ABG pO2 ABG HCO3 ABG O2 Saturation ABG Base Excess ABG Hemoglobin Oxyhemoglobin Sodium Potassium Chloride Carbon Dioxide BUN Creatinine Glucose POC Glucose 120 H Calcium Phosphorus Magnesium Iron TIBC Ferritin Total Bilirubin Direct Bilirubin AST Alkaline Phosphatase Lactate Dehydrogenase Troponin T NT-Pro-B Natriuret Pep Serum Total Protein Total Protein Albumin Tstsd-4-Lgxcjkxie Gamma Globulins PEP Interpretation LDL Cholesterol Direct Vitamin B12 Folate Urine WBC (Auto) 31.0 H Urine Creatinine Urine Total Protein Fluid Glucose Fluid Total Protein Crossmatch 07/15/19 07/15/19 07/15/19 06:30 06:30 06:30 WBC RBC Hgb Hct MCV MCH RDW Plt Count Lymph % (Auto) [place] % (Auto) Baso % (Auto) Lymph # [place] # Baso # Seg Neutrophils % Seg Neuts % (Manual) Lymphocytes % (Manual) Monocytes % (Manual) Nucleated RBC % Seg Neutrophils # Seg Neutrophils # Man Lymphocytes # (Manual) Monocytes # (Manual) PT INR APTT ABG pH ABG pO2 ABG HCO3 ABG O2 Saturation ABG Base Excess ABG Hemoglobin Oxyhemoglobin Sodium Potassium Chloride 95.2 L Carbon Dioxide BUN 42 H Creatinine 4.9 H Glucose POC Glucose Calcium Phosphorus Magnesium Iron 15 L TIBC 186 L Ferritin 428.2 H Total Bilirubin Direct Bilirubin AST 50 H Alkaline Phosphatase 191 H Lactate Dehydrogenase Troponin T NT-Pro-B Natriuret Pep Serum Total Protein Total Protein Albumin 3.1 L Gguxw-5-Zqvpuktql Gamma Globulins PEP Interpretation LDL Cholesterol Direct Vitamin B12 Folate Urine WBC (Auto) Urine Creatinine Urine Total Protein Fluid Glucose Fluid Total Protein Crossmatch 07/15/19 07/16/19 07/16/19 12:42 06:19 21:34 WBC RBC Hgb Hct MCV MCH RDW Plt Count Lymph % (Auto) [place] % (Auto) Baso % (Auto) Lymph # [place] # Baso # Seg Neutrophils % Seg Neuts % (Manual) Lymphocytes % (Manual) Monocytes % (Manual) Nucleated RBC % Seg Neutrophils # Seg Neutrophils # Man Lymphocytes # (Manual) Monocytes # (Manual) PT INR APTT ABG pH ABG pO2 ABG HCO3 ABG O2 Saturation ABG Base Excess ABG Hemoglobin Oxyhemoglobin Sodium 134 L 134 L Potassium Chloride 92.9 L 93.4 L Carbon Dioxide 20 L BUN 55 H 40 H Creatinine 5.6 H 4.4 H Glucose POC Glucose 140 H Calcium Phosphorus Magnesium Iron TIBC Ferritin Total Bilirubin Direct Bilirubin AST Alkaline Phosphatase Lactate Dehydrogenase Troponin T NT-Pro-B Natriuret Pep Serum Total Protein Total Protein Albumin Juvux-5-Zlninsuna Gamma Globulins PEP Interpretation LDL Cholesterol Direct Vitamin B12 Folate Urine WBC (Auto) Urine Creatinine Urine Total Protein Fluid Glucose Fluid Total Protein Crossmatch 07/17/19 07/17/19 07/17/19 05:27 12:10 12:52 WBC RBC Hgb Hct MCV MCH RDW Plt Count Lymph % (Auto) [place] % (Auto) Baso % (Auto) Lymph # [place] # Baso # Seg Neutrophils % Seg Neuts % (Manual) Lymphocytes % (Manual) Monocytes % (Manual) Nucleated RBC % Seg Neutrophils # Seg Neutrophils # Man Lymphocytes # (Manual) Monocytes # (Manual) PT INR APTT ABG pH ABG pO2 ABG HCO3 ABG O2 Saturation ABG Base Excess ABG Hemoglobin Oxyhemoglobin Sodium 136 L Potassium Chloride 93.6 L Carbon Dioxide BUN 43 H Creatinine 4.8 H Glucose POC Glucose 122 H 122 H Calcium Phosphorus Magnesium Iron TIBC Ferritin Total Bilirubin Direct Bilirubin AST Alkaline Phosphatase Lactate Dehydrogenase Troponin T NT-Pro-B Natriuret Pep Serum Total Protein Total Protein Albumin Mdjrv-4-Qpflfgidq Gamma Globulins PEP Interpretation LDL Cholesterol Direct Vitamin B12 Folate Urine WBC (Auto) Urine Creatinine Urine Total Protein Fluid Glucose Fluid Total Protein Crossmatch 07/17/19 07/18/19 07/18/19 13:50 04:20 05:40 WBC RBC Hgb Hct MCV MCH RDW Plt Count Lymph % (Auto) [place] % (Auto) Baso % (Auto) Lymph # [place] # Baso # Seg Neutrophils % Seg Neuts % (Manual) Lymphocytes % (Manual) Monocytes % (Manual) Nucleated RBC % Seg Neutrophils # Seg Neutrophils # Man Lymphocytes # (Manual) Monocytes # (Manual) PT INR APTT ABG pH 7.262 L ABG pO2 195.5 H 238.9 H ABG HCO3 ABG O2 Saturation 99.1 H 99.4 H ABG Base Excess -2.9 L ABG Hemoglobin 8.6 L 10.9 L Oxyhemoglobin Sodium Potassium Chloride 94.5 L Carbon Dioxide BUN 61 H Creatinine 5.6 H Glucose 111 H POC Glucose Calcium Phosphorus 4.70 H Magnesium Iron TIBC Ferritin Total Bilirubin Direct Bilirubin AST Alkaline Phosphatase Lactate Dehydrogenase 294 H Troponin T NT-Pro-B Natriuret Pep Serum Total Protein Total Protein Albumin Qmpri-3-Czpzchcrj Gamma Globulins PEP Interpretation LDL Cholesterol Direct Vitamin B12 Folate Urine WBC (Auto) Urine Creatinine Urine Total Protein Fluid Glucose Fluid Total Protein Crossmatch 07/18/19 07/18/19 07/18/19 05:40 05:40 10:30 WBC 22.7 H RBC 2.64 L Hgb 8.2 L Hct 24.9 L MCV 95 H MCH RDW 19.7 H Plt Count 94 L Lymph % (Auto) [place] % (Auto) Baso % (Auto) Lymph # [place] # Baso # Seg Neutrophils % Seg Neuts % (Manual) Lymphocytes % (Manual) Monocytes % (Manual) Nucleated RBC % Seg Neutrophils # Seg Neutrophils # Man Lymphocytes # (Manual) Monocytes # (Manual) PT INR APTT ABG pH 7.457 H ABG pO2 ABG HCO3 26.3 H ABG O2 Saturation ABG Base Excess ABG Hemoglobin 7.8 L Oxyhemoglobin 94.6 L Sodium Potassium Chloride Carbon Dioxide BUN Creatinine Glucose POC Glucose Calcium Phosphorus Magnesium Iron TIBC Ferritin Total Bilirubin Direct Bilirubin 0.7 H AST 94 H Alkaline Phosphatase 159 H Lactate Dehydrogenase Troponin T NT-Pro-B Natriuret Pep Serum Total Protein Total Protein 5.6 L D Albumin 2.5 L Eidiv-7-Fkrwazfmg Gamma Globulins PEP Interpretation LDL Cholesterol Direct Vitamin B12 Folate Urine WBC (Auto) Urine Creatinine Urine Total Protein Fluid Glucose Fluid Total Protein Crossmatch 07/18/19 07/19/19 07/19/19 Unknown 05:15 05:15 WBC RBC Hgb Hct MCV MCH RDW Plt Count Lymph % (Auto) [place] % (Auto) Baso % (Auto) Lymph # [place] # Baso # Seg Neutrophils % Seg Neuts % (Manual) Lymphocytes % (Manual) Monocytes % (Manual) Nucleated RBC % Seg Neutrophils # Seg Neutrophils # Man Lymphocytes # (Manual) Monocytes # (Manual) PT INR APTT ABG pH ABG pO2 ABG HCO3 ABG O2 Saturation ABG Base Excess ABG Hemoglobin 11.6 L Oxyhemoglobin 94.3 L Sodium 133 L Potassium Chloride 94.9 L Carbon Dioxide BUN 43 H Creatinine 4.0 H Glucose 118 H POC Glucose Calcium Phosphorus Magnesium 0.20 L* Iron TIBC Ferritin Total Bilirubin Direct Bilirubin AST Alkaline Phosphatase Lactate Dehydrogenase Troponin T NT-Pro-B Natriuret Pep Serum Total Protein Total Protein Albumin Sjyds-2-Glxbvjvak Gamma Globulins PEP Interpretation LDL Cholesterol Direct Vitamin B12 Folate Urine WBC (Auto) Urine Creatinine Urine Total Protein Fluid Glucose Fluid Total Protein Crossmatch 07/19/19 07/19/19 07/20/19 05:15 06:00 06:15 WBC 14.6 H RBC 2.57 L Hgb 8.2 L Hct 24.3 L MCV 95 H MCH RDW 19.5 H Plt Count 101 L Lymph % (Auto) [place] % (Auto) Baso % (Auto) Lymph # [place] # Baso # Seg Neutrophils % Seg Neuts % (Manual) Lymphocytes % (Manual) Monocytes % (Manual) Nucleated RBC % Seg Neutrophils # Seg Neutrophils # Man Lymphocytes # (Manual) Monocytes # (Manual) PT INR APTT ABG pH ABG pO2 91.2 H ABG HCO3 27.5 H ABG O2 Saturation ABG Base Excess ABG Hemoglobin 8.3 L Oxyhemoglobin Sodium Potassium Chloride Carbon Dioxide BUN 61 H Creatinine 4.6 H Glucose 117 H POC Glucose Calcium Phosphorus Magnesium Iron TIBC Ferritin Total Bilirubin Direct Bilirubin AST Alkaline Phosphatase Lactate Dehydrogenase Troponin T NT-Pro-B Natriuret Pep Serum Total Protein Total Protein Albumin Fqavq-4-Quqdlymgu Gamma Globulins PEP Interpretation LDL Cholesterol Direct Vitamin B12 Folate Urine WBC (Auto) Urine Creatinine Urine Total Protein Fluid Glucose Fluid Total Protein Crossmatch 07/21/19 07/21/19 07/21/19 05:30 06:15 06:15 WBC 11.8 H RBC 2.45 L Hgb 7.9 L Hct 23.5 L MCV 96 H MCH RDW 19.4 H Plt Count Lymph % (Auto) [place] % (Auto) Baso % (Auto) Lymph # [place] # Baso # Seg Neutrophils % Seg Neuts % (Manual) Lymphocytes % (Manual) Monocytes % (Manual) Nucleated RBC % Seg Neutrophils # Seg Neutrophils # Man Lymphocytes # (Manual) Monocytes # (Manual) PT INR APTT ABG pH ABG pO2 104.5 H ABG HCO3 27.9 H ABG O2 Saturation ABG Base Excess 3.3 H ABG Hemoglobin 8.2 L Oxyhemoglobin Sodium Potassium 3.3 L Chloride Carbon Dioxide BUN 74 H Creatinine 4.3 H Glucose 127 H POC Glucose Calcium Phosphorus Magnesium Iron TIBC Ferritin Total Bilirubin Direct Bilirubin AST Alkaline Phosphatase Lactate Dehydrogenase Troponin T NT-Pro-B Natriuret Pep Serum Total Protein Total Protein Albumin Tdkbq-5-Wjxubdrzl Gamma Globulins PEP Interpretation LDL Cholesterol Direct Vitamin B12 Folate Urine WBC (Auto) Urine Creatinine Urine Total Protein Fluid Glucose Fluid Total Protein Crossmatch 07/21/19 07/21/19 07/21/19 08:00 08:00 17:51 WBC RBC Hgb Hct MCV MCH RDW Plt Count Lymph % (Auto) [place] % (Auto) Baso % (Auto) Lymph # [place] # Baso # Seg Neutrophils % Seg Neuts % (Manual) Lymphocytes % (Manual) Monocytes % (Manual) Nucleated RBC % Seg Neutrophils # Seg Neutrophils # Man Lymphocytes # (Manual) Monocytes # (Manual) PT INR APTT ABG pH ABG pO2 ABG HCO3 ABG O2 Saturation ABG Base Excess ABG Hemoglobin Oxyhemoglobin Sodium Potassium 3.2 L Chloride Carbon Dioxide BUN Creatinine Glucose POC Glucose Calcium Phosphorus Magnesium Iron TIBC Ferritin Total Bilirubin Direct Bilirubin AST Alkaline Phosphatase Lactate Dehydrogenase Troponin T NT-Pro-B Natriuret Pep Serum Total Protein Total Protein Albumin Wjlzl-0-Eivxetxkz Gamma Globulins PEP Interpretation LDL Cholesterol Direct Vitamin B12 960.4 H Folate 6.18 L Urine WBC (Auto) Urine Creatinine Urine Total Protein Fluid Glucose Fluid Total Protein Crossmatch 07/22/19 07/22/19 07/22/19 03:40 06:00 21:45 WBC 12.6 H RBC 2.54 L Hgb 7.8 L Hct 24.2 L MCV 95 H MCH RDW 19.7 H Plt Count Lymph % (Auto) [place] % (Auto) Baso % (Auto) Lymph # [place] # Baso # Seg Neutrophils % Seg Neuts % (Manual) Lymphocytes % (Manual) Monocytes % (Manual) Nucleated RBC % Seg Neutrophils # Seg Neutrophils # Man Lymphocytes # (Manual) Monocytes # (Manual) PT INR APTT ABG pH ABG pO2 99.4 H ABG HCO3 27.3 H ABG O2 Saturation ABG Base Excess ABG Hemoglobin 9.2 L Oxyhemoglobin Sodium Potassium 3.1 L Chloride Carbon Dioxide BUN 75 H Creatinine 2.9 H Glucose 123 H POC Glucose Calcium Phosphorus Magnesium Iron TIBC Ferritin Total Bilirubin Direct Bilirubin AST Alkaline Phosphatase Lactate Dehydrogenase Troponin T NT-Pro-B Natriuret Pep Serum Total Protein Total Protein Albumin Uwkoj-5-Friktriuq Gamma Globulins PEP Interpretation LDL Cholesterol Direct Vitamin B12 Folate Urine WBC (Auto) Urine Creatinine Urine Total Protein Fluid Glucose Fluid Total Protein Crossmatch 07/23/19 07/23/19 07/24/19 05:30 05:30 04:12 WBC RBC Hgb Hct MCV MCH RDW Plt Count Lymph % (Auto) [place] % (Auto) Baso % (Auto) Lymph # [place] # Baso # Seg Neutrophils % Seg Neuts % (Manual) Lymphocytes % (Manual) Monocytes % (Manual) Nucleated RBC % Seg Neutrophils # Seg Neutrophils # Man Lymphocytes # (Manual) Monocytes # (Manual) PT INR APTT ABG pH ABG pO2 123.1 H ABG HCO3 27.1 H ABG O2 Saturation ABG Base Excess ABG Hemoglobin 9.3 L Oxyhemoglobin Sodium Potassium 3.1 L Chloride Carbon Dioxide BUN 80 H Creatinine 2.6 H Glucose 112 H POC Glucose Calcium Phosphorus Magnesium Iron TIBC Ferritin Total Bilirubin Direct Bilirubin AST Alkaline Phosphatase Lactate Dehydrogenase Troponin T NT-Pro-B Natriuret Pep Serum Total Protein 5.9 L Total Protein Albumin 2.2 L Ubauf-9-Mmygzpdpk 0.5 H Gamma Globulins 2.0 H PEP Interpretation see below H LDL Cholesterol Direct Vitamin B12 Folate Urine WBC (Auto) Urine Creatinine Urine Total Protein Fluid Glucose Fluid Total Protein Crossmatch 07/24/19 07/24/19 07/25/19 07:03 07:03 04:05 WBC RBC Hgb Hct MCV MCH RDW Plt Count Lymph % (Auto) [place] % (Auto) Baso % (Auto) Lymph # [place] # Baso # Seg Neutrophils % Seg Neuts % (Manual) Lymphocytes % (Manual) Monocytes % (Manual) Nucleated RBC % Seg Neutrophils # Seg Neutrophils # Man Lymphocytes # (Manual) Monocytes # (Manual) PT INR APTT ABG pH ABG pO2 ABG HCO3 ABG O2 Saturation ABG Base Excess ABG Hemoglobin Oxyhemoglobin Sodium 147 H Potassium 3.4 L Chloride 107.5 H 110.1 H Carbon Dioxide BUN 70 H 62 H Creatinine 1.8 H Glucose 112 H 115 H POC Glucose Calcium Phosphorus Magnesium 1.50 L Iron TIBC Ferritin Total Bilirubin Direct Bilirubin AST Alkaline Phosphatase Lactate Dehydrogenase Troponin T NT-Pro-B Natriuret Pep Serum Total Protein Total Protein Albumin Prcdc-4-Pqxiilpnm Gamma Globulins PEP Interpretation LDL Cholesterol Direct Vitamin B12 Folate Urine WBC (Auto) Urine Creatinine Urine Total Protein Fluid Glucose Fluid Total Protein Crossmatch 07/25/19 07/25/19 07/26/19 04:05 05:27 04:47 WBC 11.4 H RBC 2.39 L Hgb 7.5 L Hct 23.0 L MCV 96 H MCH RDW 19.4 H Plt Count Lymph % (Auto) [place] % (Auto) Baso % (Auto) Lymph # [place] # Baso # Seg Neutrophils % Seg Neuts % (Manual) 76.0 H Lymphocytes % (Manual) 9.0 L Monocytes % (Manual) 11.0 H Nucleated RBC % Seg Neutrophils # Seg Neutrophils # Man 8.7 H Lymphocytes # (Manual) 1.0 L Monocytes # (Manual) 1.3 H PT INR APTT ABG pH 7.457 H ABG pO2 75.5 L ABG HCO3 27.2 H ABG O2 Saturation ABG Base Excess 3.1 H ABG Hemoglobin 7.0 L Oxyhemoglobin 94.4 L Sodium 147 H Potassium Chloride 111.5 H Carbon Dioxide BUN 57 H Creatinine Glucose 121 H POC Glucose Calcium Phosphorus Magnesium Iron TIBC Ferritin Total Bilirubin Direct Bilirubin AST Alkaline Phosphatase Lactate Dehydrogenase Troponin T NT-Pro-B Natriuret Pep Serum Total Protein Total Protein Albumin Tyblg-6-Swtlxlmrq Gamma Globulins PEP Interpretation LDL Cholesterol Direct Vitamin B12 Folate Urine WBC (Auto) Urine Creatinine Urine Total Protein Fluid Glucose Fluid Total Protein Crossmatch 07/26/19 07/27/19 07/27/19 04:47 01:17 05:55 WBC RBC Hgb Hct MCV MCH RDW Plt Count Lymph % (Auto) [place] % (Auto) Baso % (Auto) Lymph # [place] # Baso # Seg Neutrophils % Seg Neuts % (Manual) Lymphocytes % (Manual) Monocytes % (Manual) Nucleated RBC % Seg Neutrophils # Seg Neutrophils # Man Lymphocytes # (Manual) Monocytes # (Manual) PT INR APTT ABG pH ABG pO2 ABG HCO3 ABG O2 Saturation ABG Base Excess ABG Hemoglobin Oxyhemoglobin Sodium 147 H Potassium Chloride 109.6 H Carbon Dioxide BUN 43 H Creatinine Glucose 113 H POC Glucose 122 H Calcium Phosphorus Magnesium 1.50 L Iron TIBC Ferritin Total Bilirubin Direct Bilirubin AST Alkaline Phosphatase Lactate Dehydrogenase Troponin T NT-Pro-B Natriuret Pep Serum Total Protein Total Protein Albumin Cambh-2-Xbhmgzqsa Gamma Globulins PEP Interpretation LDL Cholesterol Direct Vitamin B12 Folate Urine WBC (Auto) Urine Creatinine Urine Total Protein Fluid Glucose Fluid Total Protein Crossmatch 07/28/19 07/28/19 07/28/19 08:06 12:29 13:31 WBC 11.3 H RBC 2.16 L Hgb 6.7 L Hct 20.9 L MCV 97 H MCH RDW 19.0 H Plt Count Lymph % (Auto) [place] % (Auto) Baso % (Auto) Lymph # [place] # Baso # Seg Neutrophils % Seg Neuts % (Manual) Lymphocytes % (Manual) Monocytes % (Manual) Nucleated RBC % Seg Neutrophils # Seg Neutrophils # Man Lymphocytes # (Manual) Monocytes # (Manual) PT 21.4 H INR 1.82 H APTT ABG pH ABG pO2 ABG HCO3 ABG O2 Saturation ABG Base Excess ABG Hemoglobin Oxyhemoglobin Sodium 147 H Potassium Chloride 111.0 H Carbon Dioxide BUN 35 H Creatinine Glucose 119 H POC Glucose Calcium Phosphorus Magnesium 1.50 L Iron TIBC Ferritin Total Bilirubin Direct Bilirubin AST Alkaline Phosphatase Lactate Dehydrogenase Troponin T NT-Pro-B Natriuret Pep Serum Total Protein Total Protein Albumin Jjmko-1-Kdlflljmd Gamma Globulins PEP Interpretation LDL Cholesterol Direct Vitamin B12 Folate Urine WBC (Auto) Urine Creatinine Urine Total Protein Fluid Glucose Fluid Total Protein Crossmatch 07/28/19 07/29/19 07/29/19 16:44 04:45 04:45 WBC RBC Hgb Hct MCV MCH RDW Plt Count Lymph % (Auto) [place] % (Auto) Baso % (Auto) Lymph # [place] # Baso # Seg Neutrophils % Seg Neuts % (Manual) Lymphocytes % (Manual) Monocytes % (Manual) Nucleated RBC % Seg Neutrophils # Seg Neutrophils # Man Lymphocytes # (Manual) Monocytes # (Manual) PT 20.2 H INR 1.69 H APTT ABG pH ABG pO2 ABG HCO3 ABG O2 Saturation ABG Base Excess ABG Hemoglobin Oxyhemoglobin Sodium 148 H Potassium Chloride 111.8 H Carbon Dioxide BUN 29 H Creatinine Glucose 104 H POC Glucose Calcium Phosphorus Magnesium Iron TIBC Ferritin Total Bilirubin Direct Bilirubin AST Alkaline Phosphatase Lactate Dehydrogenase Troponin T NT-Pro-B Natriuret Pep Serum Total Protein Total Protein Albumin Pfvkw-6-Hjzyfzwez Gamma Globulins PEP Interpretation LDL Cholesterol Direct Vitamin B12 Folate Urine WBC (Auto) Urine Creatinine Urine Total Protein Fluid Glucose Fluid Total Protein Crossmatch See Detail 07/29/19 07/30/19 07/30/19 10:06 04:56 04:56 WBC RBC 2.40 L Hgb 7.3 L Hct 22.8 L MCV 95 H MCH RDW 21.2 H Plt Count Lymph % (Auto) 11.0 L [place] % (Auto) 11.1 H Baso % (Auto) 2.3 H Lymph # 1.0 L [place] # 1.1 H Baso # 0.2 H Seg Neutrophils % 72.7 H Seg Neuts % (Manual) Lymphocytes % (Manual) Monocytes % (Manual) Nucleated RBC % Seg Neutrophils # Seg Neutrophils # Man Lymphocytes # (Manual) Monocytes # (Manual) PT 20.0 H INR 1.67 H APTT ABG pH ABG pO2 ABG HCO3 ABG O2 Saturation ABG Base Excess ABG Hemoglobin Oxyhemoglobin Sodium Potassium Chloride Carbon Dioxide BUN Creatinine Glucose POC Glucose Calcium Phosphorus Magnesium 1.50 L Iron TIBC Ferritin Total Bilirubin Direct Bilirubin AST Alkaline Phosphatase Lactate Dehydrogenase Troponin T NT-Pro-B Natriuret Pep Serum Total Protein Total Protein Albumin Wyxpi-8-Dynoivvdp Gamma Globulins PEP Interpretation LDL Cholesterol Direct Vitamin B12 Folate Urine WBC (Auto) Urine Creatinine Urine Total Protein Fluid Glucose Fluid Total Protein Crossmatch 07/31/19 07/31/19 04:53 04:53 WBC 12.8 H RBC 2.45 L Hgb 7.4 L Hct 23.4 L MCV 95 H MCH RDW 20.2 H Plt Count Lymph % (Auto) 6.6 L [place] % (Auto) 8.1 H Baso % (Auto) Lymph # 0.8 L [place] # 1.0 H Baso # Seg Neutrophils % 81.6 H Seg Neuts % (Manual) Lymphocytes % (Manual) Monocytes % (Manual) Nucleated RBC % Seg Neutrophils # 10.4 H Seg Neutrophils # Man Lymphocytes # (Manual) Monocytes # (Manual) PT 20.2 H INR 1.69 H APTT ABG pH ABG pO2 ABG HCO3 ABG O2 Saturation ABG Base Excess ABG Hemoglobin Oxyhemoglobin Sodium Potassium Chloride Carbon Dioxide BUN Creatinine Glucose POC Glucose Calcium Phosphorus Magnesium Iron TIBC Ferritin Total Bilirubin Direct Bilirubin AST Alkaline Phosphatase Lactate Dehydrogenase Troponin T NT-Pro-B Natriuret Pep Serum Total Protein Total Protein Albumin Zbatb-2-Bjsosborv Gamma Globulins PEP Interpretation LDL Cholesterol Direct Vitamin B12 Folate Urine WBC (Auto) Urine Creatinine Urine Total Protein Fluid Glucose Fluid Total Protein Crossmatch
--- NOTE | 2019-07-31 08:46 | Procedure Note ---
Date of procedure: 07/31/19 Pre-op diagnosis: Bleeding from Trach, around trach Post-op diagnosis: same Procedure: Flexible Bronc: Deemed emergent given nature so no consent obtained. Scope passed through Trach without difficulty. No active bleeding seen. Large bright red clot down in left lower lobe. Had clots there during trach placement as well as this was noted by surgery. placed more iced saline in the airway. This am when called had RT lavage with ice saline. Anesthesia: none Surgeon: SOPHY BERMAN Estimated blood loss: none Pathology: none Condition: critical Disposition: ICU
[2019-07-31] MEDS ORDERED: EPINEPHrine 1:1000 8 MG in SODIUM CHLORIDE 0.9% 250ML 242 ML IV SCH (09:00)
[2019-07-31 10:02] LABS: Hemoglobin 7.1 gm/dl (11.8-15.2)
--- NOTE | 2019-07-31 10:16 | Event Note ---
Date: 07/31/19 I was asked by Dr. Puckett to evaluate the patient's tracheostomy. Earlier today patient was noted to have bleeding around the trach site. Also, there was blood in the airway. Dr. Puckett told me that the patient was recently started on Eliquis secondary to concern that there may be a clot in the right atrium. The patient was hemodynamically stable. I removed the dressing that had old blood on it. There was no active bleeding. There was no hematoma formation. There was no blood coming from the trach itself. I ordered some supplies and returned about 30 minutes later. There were still no signs of any bleeding. I wrapped the tracheotomy site with Surgicel and covered it with a new drain dressing. I think that the Eliquis may have caused skin bleeding. During the procedure, we did have some minor skin bleeding that required compression to stop it. This may have restarted once the Eliquis was begun. Skin bleeding that goes down the sides of the tracheostomy tube will appear as blood in the airway. Of note, when I performed the bronchoscopy during the trach procedure, there was no evidence of the innominate artery close to where we were operating. I do not believe this is a sentinel bleed from a tracheoinnominate fistula. Dr. Puckett agreed. Please call back if needed.
[2019-07-31] MEDS: GLYCOPYRROLATE 0.4 MG/2 ML INJ IV SCH ×2 (10:23→17:10)
[2019-07-31] MEDS: LANSOPRAZOLE 30 MG SOLUTAB FEEDTUBE SCH (10:24)
[2019-07-31] MEDS: THIAMINE 100 MG TAB PO SCH (10:24)
[2019-07-31] MEDS: VALSARTAN 40 MG TAB PO SCH ×2 (10:24→21:50)
[2019-07-31] MEDS: ASPIRIN 81 MG TAB CHEW FEEDTUBE SCH (10:25)
[2019-07-31] MEDS: FOLIC ACID/VIT B COMP W-C 1 MG (RENAL CAPS) PO SCH (10:25)
--- NOTE | 2019-07-31 10:27 | Progress Note ---
Assessment and Plan Assessment and plan: Patient had some bleeding around the tracheostomy site Surgery and pulmonary evaluated, dressing changed Patient underwent bronchoscopy, findings as mentioned below Status post tracheostomy vent dependent --Blood around the tracheostomy site; Change dressing, s/p bronchoscopy No active bleeding seen. Large bright red clot down in left lower lobe. no new episodes of bleeding, supportive care. Pulmonary and surgery following --Acute hypoxic respiratory failure on MV > 96 hours, continue mechanical ventilator. s/p trach and PEG on 07/29/2019, trach and PEG care --Febrile illness/persistent fevers: Patient recently completed antibiotics Antipyretics, cultures, ID following --Bilateral pneumonia: Completed course of antibiotics for 7 days per ID. 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 Fluid was removed via dialysis, now has good urine output, improving cardiology, patient now appears to be improving --Fluid overload, Ascites, status post paracentesis on 07/15, 3.2 L removed. Received dialysis. --Severe ARF due to ATN, no longer needing HD. Nephrology input appreciated, has good urine output. HD cath now removed. --acute metabolic encephalopathy, acute metabolic encephalopathy, poa, thought to be due to severe Uremia, but uremia improved and he still not responsive , needing restraints for agitation CVA; noted on MRI, optimize medications for secondary prevention, aspirin, statin, blood pressure control. --Anemia appears AOCD due to renal dysfunction: continue to monitor cbc --Thrombocytopenia: Likely due to alcohol abuse, resolved -- Obesity, bmi 32.1: child welfare counselor on lifestyle modification if patient improves --Transient A. fib/a flutter on NSVT. Now resolved, no further medication or work-up required Resume Eliquis 5 mg twice a day if okay with surgery --Hypertensive urgency; continue to adjust BP meds --Hypernatremia; continue free water via G-tube, added small amounts of D5 water given advanced heart failure --History of nonadherence, alcohol abuse, plan to child welfare counselor patient to be his mentation improves. --Discharge planning Possible LTAC placement Plan of care reviewed with the patient's nurse and the case management Critical care time 32 minutes History Interval history: Patient was seen by surgeon and pulmonary this morning Patient is noted to have bleeding around the tracheostomy site With blood in the airway Patient was started back on Eliquis yesterday for his A. fib, probably the cause of bleeding, dressing changed Patient underwent flex bronchoscopy, large bright red clot noted in the left lower lobe, box Status post tracheostomy on vent Patient is in mild distress Vital signs reviewed Hospitalist Physical - Constitutional Vitals: Temp Pulse Resp BP Pulse Ox 99.9 F H 101 H 24 179/73 99 07/31/19 04:00 07/31/19 10:24 07/31/19 09:30 07/31/19 10:24 07/31/19 09:30 General appearance: Present: mild distress, well-nourished, obese, other (Febrile, tracheostomy, on vent) - EENT Eyes: Present: PERRL, EOM intact - Neck Neck: Present: supple, normal ROM - Respiratory Respiratory effort: normal Respiratory: bilateral: diminished, rhonchi, negative: rales, wheezing - Cardiovascular Rhythm: regular Heart Sounds: Present: S1 & S2 - Extremities Extremities: no ischemia Extremity abnormal: edema - Abdominal General gastrointestinal: soft, non-tender, non-distended, normal bowel sounds, other (PEG tube in place) - Integumentary Integumentary: Present: clear, warm - Psychiatric Psychiatric: other (Noncommunicative) - Neurologic Neurologic: other (Tracheostomy on vent) Results - Labs CBC & Chem 7: 08/01/19 05:21 08/01/19 05:21 Labs: Laboratory Last Values WBC 12.8 K/mm3 (4.5-11.0) H 07/31/19 04:53 RBC 2.45 M/mm3 (3.65-5.03) L 07/31/19 04:53 Hgb 7.1 gm/dl (11.8-15.2) L 07/31/19 09:46 Hct 22.0 % (35.5-45.6) L 07/31/19 09:46 MCV 95 fl (84-94) H 07/31/19 04:53 MCH 30 pg (28-32) 07/31/19 04:53 MCHC 32 % (32-34) 07/31/19 04:53 RDW 20.2 % (13.2-15.2) H 07/31/19 04:53 Plt Count 243 K/mm3 (140-440) 07/31/19 04:53 Lymph % (Auto) 6.6 % (13.4-35.0) L 07/31/19 04:53 [place] % (Auto) 8.1 % (0.0-7.3) H 07/31/19 04:53 Eos % (Auto) 2.9 % (0.0-4.3) 07/31/19 04:53 Baso % (Auto) 0.8 % (0.0-1.8) 07/31/19 04:53 Lymph # 0.8 K/mm3 (1.2-5.4) L 07/31/19 04:53 [place] # 1.0 K/mm3 (0.0-0.8) H 07/31/19 04:53 Eos # 0.4 K/mm3 (0.0-0.4) 07/31/19 04:53 Baso # 0.1 K/mm3 (0.0-0.1) 07/31/19 04:53 Add Manual Diff Complete 07/25/19 04:05 Total Counted 100 07/25/19 04:05 Seg Neutrophils % 81.6 % (40.0-70.0) H 07/31/19 04:53 Seg Neuts % (Manual) 76.0 % (40.0-70.0) H 07/25/19 04:05 Band Neutrophils % 0 % 07/25/19 04:05 Lymphocytes % (Manual) 9.0 % (13.4-35.0) L 07/25/19 04:05 Reactive Lymphs % (Man) 0 % 07/25/19 04:05 Monocytes % (Manual) 11.0 % (0.0-7.3) H 07/25/19 04:05 Eosinophils % (Manual) 2.0 % (0.0-4.3) 07/25/19 04:05 Basophils % (Manual) 0 % (0.0-1.8) 07/25/19 04:05 Metamyelocytes % 2.0 % 07/25/19 04:05 Myelocytes % 0 % 07/25/19 04:05 Promyelocytes % 0 % 07/25/19 04:05 Blast Cells % 0 % 07/25/19 04:05 Nucleated RBC % Not Reportable 07/25/19 04:05 Seg Neutrophils # 10.4 K/mm3 (1.8-7.7) H 07/31/19 04:53 Seg Neutrophils # Man 8.7 K/mm3 (1.8-7.7) H 07/25/19 04:05 Band Neutrophils # 0.0 K/mm3 07/25/19 04:05 Lymphocytes # (Manual) 1.0 K/mm3 (1.2-5.4) L 07/25/19 04:05 Abs React Lymphs (Man) 0.0 K/mm3 07/25/19 04:05 Monocytes # (Manual) 1.3 K/mm3 (0.0-0.8) H 07/25/19 04:05 Eosinophils # (Manual) 0.2 K/mm3 (0.0-0.4) 07/25/19 04:05 Basophils # (Manual) 0.0 K/mm3 (0.0-0.1) 07/25/19 04:05 Metamyelocytes # 0.2 K/mm3 07/25/19 04:05 Myelocytes # 0.0 K/mm3 07/25/19 04:05 Promyelocytes # 0.0 K/mm3 07/25/19 04:05 Blast Cells # 0.0 K/mm3 07/25/19 04:05 WBC Morphology Not Reportable 07/25/19 04:05 Hypersegmented Neuts Not Reportable 07/25/19 04:05 Hyposegmented Neuts Not Reportable 07/25/19 04:05 Hypogranular Neuts Not Reportable 07/25/19 04:05 Smudge Cells Not Reportable 07/25/19 04:05 Toxic Granulation Not Reportable 07/25/19 04:05 Toxic Vacuolation Not Reportable 07/25/19 04:05 Dohle Bodies Not Reportable 07/25/19 04:05 Pelger-Huet Anomaly Not Reportable 07/25/19 04:05 Mack Rods Not Reportable 07/25/19 04:05 Platelet Estimate Consistent w auto 07/25/19 04:05 Clumped Platelets Not Reportable 07/25/19 04:05 Plt Clumps, EDTA Not Reportable 07/25/19 04:05 Large Platelets Not Reportable 07/25/19 04:05 Giant Platelets Not Reportable 07/25/19 04:05 Platelet Satelliting Not Reportable 07/25/19 04:05 Plt Morphology Comment Not Reportable 07/25/19 04:05 RBC Morphology Not Reportable 07/25/19 04:05 Dimorphic RBCs Not Reportable 07/25/19 04:05 Polychromasia Not Reportable 07/25/19 04:05 Hypochromasia 1+ 07/25/19 04:05 Poikilocytosis Not Reportable 07/25/19 04:05 Anisocytosis Few 07/25/19 04:05 Microcytosis Not Reportable 07/25/19 04:05 Macrocytosis Not Reportable 07/25/19 04:05 Spherocytes Not Reportable 07/25/19 04:05 Pappenheimer Bodies Not Reportable 07/25/19 04:05 Sickle Cells Not Reportable 07/25/19 04:05 Target Cells Not Reportable 07/25/19 04:05 Tear Drop Cells Not Reportable 07/25/19 04:05 Ovalocytes Not Reportable 07/25/19 04:05 Helmet Cells Not Reportable 07/25/19 04:05 [place] Bodies Not Reportable 07/25/19 04:05 [place] Rings Not Reportable 07/25/19 04:05 [place] Cells Not Reportable 07/25/19 04:05 Bite Cells Not Reportable 07/25/19 04:05 Crenated Cell Not Reportable 07/25/19 04:05 Elliptocytes Not Reportable 07/25/19 04:05 Acanthocytes (Spur) Not Reportable 07/25/19 04:05 Rouleaux Not Reportable 07/25/19 04:05 Hemoglobin C Crystals Not Reportable 07/25/19 04:05 Schistocytes Rare 07/25/19 04:05 Malaria parasites Not Reportable 07/25/19 04:05 Víctor Bodies Not Reportable 07/25/19 04:05 Hem Pathologist Commnt No 07/25/19 04:05 PT 20.2 Sec. (12.2-14.9) H 07/31/19 04:53 INR 1.69 (0.87-1.13) H 07/31/19 04:53 APTT 47.8 Sec. (24.2-36.6) H 07/12/19 15:08 ABG pH 7.457 pH Units (7.350-7.450) H 07/25/19 05:27 ABG pCO2 39.4 mm Hg 07/25/19 05:27 ABG pO2 75.5 mm Hg (80.0-90.0) L 07/25/19 05:27 ABG HCO3 27.2 mmol/L (20.0-26.0) H 07/25/19 05:27 ABG O2 Saturation 97.1 % (95.0-99.0) 07/25/19 05:27 ABG O2 Content 9.4 (0.0-44) 07/25/19 05:27 ABG Base Excess 3.1 mmol/L (-2.0-3.0) H 07/25/19 05:27 ABG Hemoglobin 7.0 gm/dl (14.0-18.0) L 07/25/19 05:27 ABG Carboxyhemoglobin 2.2 % (0.0-5.0) 07/25/19 05:27 ABG Methemoglobin 0.5 % (0.0-1.5) 07/25/19 05:27 Oxyhemoglobin 94.4 % (95.0-99.0) L 07/25/19 05:27 FiO2 30 % 07/25/19 05:27 Sodium 148 mmol/L (137-145) H 07/29/19 04:45 Potassium 4.1 mmol/L (3.6-5.0) 07/29/19 04:45 Chloride 111.8 mmol/L (98-107) H 07/29/19 04:45 Carbon Dioxide 25 mmol/L (22-30) 07/29/19 04:45 Anion Gap 15 mmol/L 07/29/19 04:45 BUN 29 mg/dL (9-20) H 07/29/19 04:45 Creatinine 1.1 mg/dL (0.8-1.5) 07/29/19 04:45 Estimated GFR > 60 ml/min 07/29/19 04:45 BUN/Creatinine Ratio 26 % 07/29/19 04:45 Glucose 104 mg/dL (75-100) H 07/29/19 04:45 POC Glucose 122 (70-105) H 07/27/19 01:17 Calcium 8.8 mg/dL (8.4-10.2) 07/29/19 04:45 Phosphorus 2.70 mg/dL (2.5-4.5) 07/24/19 07:03 Magnesium 1.70 mg/dL (1.7-2.3) 07/31/19 04:53 Iron 15 ug/dL (49-181) L 07/15/19 06:30 TIBC 186 mcg/dL (250-450) L 07/15/19 06:30 Ferritin 428.2 ng/mL (13.0-400.0) H 07/15/19 06:30 Total Bilirubin 1.10 mg/dL (0.1-1.2) 07/18/19 05:40 Direct Bilirubin 0.7 mg/dL (0-0.2) H 07/18/19 05:40 Indirect Bilirubin 0.4 mg/dL 07/18/19 05:40 AST 94 units/L (5-40) H 07/18/19 05:40 ALT 16 units/L (7-56) 07/18/19 05:40 Alkaline Phosphatase 159 units/L (35-129) H 07/18/19 05:40 Lactate Dehydrogenase 294 units/L (91-180) H 07/18/19 05:40 Total Creatine Kinase 59 units/L (55-170) 07/14/19 07:16 Troponin T 0.188 ng/mL (0.00-0.029) H* 07/12/19 17:04 NT-Pro-B Natriuret Pep > 35598 pg/mL (0-450) H 07/12/19 15:08 Serum Total Protein 5.9 g/dL (6.1-8.1) L 07/23/19 05:30 Total Protein 5.6 g/dL (6.3-8.2) L D 07/18/19 05:40 Albumin 2.2 g/dL (3.8-4.8) L 07/23/19 05:30 Albumin/Globulin Ratio 0.8 % 07/18/19 05:40 Lwjwh-2-Ukgcbgjhj 0.5 g/dL (0.2-0.3) H 07/23/19 05:30 Kkxzj-4-Ruefogpba 0.5 g/dL (0.5-0.9) 07/23/19 05:30 Beta Globulins 0.4 g/dL (0.2-0.5) 07/23/19 05:30 Gamma Globulins 2.0 g/dL (0.8-1.7) H 07/23/19 05:30 Abnorm Protein Band 1 see below 07/23/19 05:30 PEP Interpretation see below H 07/23/19 05:30 Triglycerides 128 mg/dL (2-149) 07/12/19 15:08 Cholesterol 121 mg/dL (50-199) 07/12/19 15:08 LDL Cholesterol Direct 40 mg/dL (50-130) L 07/12/19 15:08 HDL Cholesterol 44 mg/dL (40-59) 07/12/19 15:08 Cholesterol/HDL Ratio 2.75 % 07/12/19 15:08 Vitamin B12 960.4 pg/mL (211-911) H 07/21/19 08:00 Folate 6.18 ng/mL (7.3-26.0) L 07/21/19 08:00 Procalcitonin 1.48 ng/mL (<0.15) 07/30/19 04:56 Urine Color Yellow (Yellow) 07/28/19 15:00 Urine Turbidity Clear (Clear) 07/28/19 15:00 Urine pH 7.0 (5.0-7.0) 07/28/19 15:00 Ur Specific [place] 1.013 (1.003-1.030) 07/28/19 15:00 Urine Protein 100 mg/dl mg/dL (Negative) 07/28/19 15:00 Urine Glucose (UA) Neg mg/dL (Negative) 07/28/19 15:00 Urine Ketones Neg mg/dL (Negative) 07/28/19 15:00 Urine Blood Sm (Negative) 07/28/19 15:00 Urine Nitrite Neg (Negative) 07/28/19 15:00 Urine Bilirubin Neg (Negative) 07/28/19 15:00 Urine Urobilinogen < 2.0 mg/dL (<2.0) 07/28/19 15:00 Ur Leukocyte Esterase Neg (Negative) 07/28/19 15:00 Urine WBC (Auto) 2.0 /HPF (0.0-6.0) 07/28/19 15:00 Urine RBC (Auto) 2.0 /HPF (0.0-6.0) 07/28/19 15:00 U Epithel Cells (Auto) < 1.0 /HPF (0-13.0) 07/28/19 15:00 Urine Bacteria (Auto) 1+ /HPF (Negative) 07/14/19 17:28 Urine Mucus Few /HPF 07/14/19 17:28 Urine Yeast (Budding) Few /HPF 07/14/19 17:28 Urine Eosinophils Rare seen (None Seen) 07/14/19 17:28 Urine Creatinine 106.2 mg/dL (0.1-20.0) H 07/14/19 17:28 Protein/Creatinin Ratio 1.66 07/14/19 16:40 Urine Sodium 67 mmol/L 07/14/19 17:28 Urine Urea Nitrogen 100 07/14/19 17:28 Urine Total Protein 173 mg/dL (5-11.8) H 07/14/19 16:40 Fluid Type Paracentesis 07/14/19 10:45 Fluid Color Bloody 07/14/19 10:45 Fluid Appearance Bloody 07/14/19 10:45 Fluid WBC 120 /mm3 07/14/19 10:45 Fluid RBC 06868 /mm3 07/14/19 10:45 Fluid Seg Neutrophils 33.0 % 07/14/19 10:45 Fluid Lymphocytes 17.0 % 07/14/19 10:45 Fluid Reactive Lymphs 0 % 07/14/19 10:45 Fluid Monocytes 50.0 % 07/14/19 10:45 Fluid Eosinophils 0 % 07/14/19 10:45 Fluid Basophils 0 % 07/14/19 10:45 Fluid Glucose 93 mg/dL (40-70) H 07/14/19 10:45 Fluid Total Protein 4.7 (15.0-45.0) L 07/14/19 10:45 Fluid LDH 07/14/19 10:45 Random Vancomycin 14.5 ug/mL (0-40.0) 07/19/19 05:15 SHANNA Screen Negative (Negative) 07/14/19 11:50 Proteinase 3 (PR3) Ab <1.0 AI (<1.0) 07/14/19 11:50 Myeloperoxidase Ab <1.0 AI (<1.0) 07/14/19 11:50 Glomerular Base Mem IgG See scanned result 07/14/19 11:50 Complement C3 124 mg/dL (82-185) 07/14/19 11:50 Complement C4 28 mg/dL (15-53) 07/14/19 11:50 Hepatitis A IgM Ab Non-reactive (NonReactive) 07/12/19 17:49 Hep Bs Antigen Non-reactive (Negative) 07/14/19 11:50 Hep B Core IgM Ab Non-reactive (NonReactive) 07/12/19 17:49 Hepatitis C Antibody Non-reactive (NonReactive) 07/14/19 11:50 HIV-1 Antibody See scanned result 07/14/19 11:50 HIV-2 Ab (Immunoblot) See scanned result 07/14/19 11:50 Schistocytes Smear Rare 07/18/19 05:40 Blood Type A POSITIVE 07/28/19 16:44 Antibody Screen Negative 07/28/19 16:44 Crossmatch See Detail 07/28/19 16:44 Active Medications - Current Medications Current Medications: Generic Name Dose Route Start Last Admin Trade Name Freq PRN Reason Stop Dose Admin Acetaminophen 650 mg 07/30/19 19:15 07/30/19 22:02 Tylenol FEEDTUBE 650 mg Q4HR PRN Administration Fever >101 Albuterol 2.5 mg 07/14/19 04:54 07/16/19 13:42 Proventil IH 2.5 mg Q4HRT PRN Administration Shortness Of Breath Lipase/Protease/Amylase 1 each 07/18/19 13:20 Pancrenarinder [place] 10,500 Unit FEEDTUBE PRN PRN For Clogged Feeding Tube Aspirin 81 mg 07/28/19 10:00 07/31/19 10:25 Baby Aspirin FEEDTUBE Not Given QDAY TERRELL Fentanyl 25 mcg 07/25/19 10:51 07/28/19 11:35 Sublimaze IV 25 mcg Q2HR PRN Administration Pain, Moderate (4-6) Glycopyrrolate 0.2 mg 07/27/19 16:00 07/31/19 10:23 Robinul IV 0.2 mg Q6H TERRELL Administration Haloperidol Lactate 5 mg 07/12/19 21:35 07/24/19 12:00 Haldol IV 5 mg Q1H PRN Administration Unrespon. to mult. doses BZD's Hydralazine HCl 10 mg 07/23/19 10:46 07/30/19 13:59 Apresoline IV 10 mg Q4HR PRN Administration BP >160/100 Epinephrine 8 mg/ Sodium 250 mls @ 0 mls/hr 02/13/20 09:00 Chloride IV TITR TERRELL Lansoprazole 30 mg 07/18/19 11:00 07/31/19 10:24 Prevacid Solutab FEEDTUBE 30 mg QDAY TERRELL Administration Lorazepam 1 mg 07/27/19 11:49 07/28/19 09:42 Ativan IV 1 mg Q2H PRN Administration Agitation Multivit/Ca Carb/B Cmplx/FA/Prenat 1 cap 07/29/19 10:00 07/31/19 10:25 Renal Caps PO 1 cap QDAY TERRELL Administration Simple Syrup 15 ml 07/18/19 13:20 Simple Syrup FEEDTUBE PRN PRN Hypoglycemia Simple Syrup 30 ml 07/18/19 13:20 Simple Syrup FEEDTUBE PRN PRN Hypoglycemia Sodium Bicarbonate 325 mg 07/18/19 13:20 Sodium Bicarbonate FEEDTUBE PRN PRN For Clogged Feeding Tube Sodium Chloride 500 ml 07/31/19 08:00 Nacl 0.9% 500 Ml IV DIRECT TERRELL Thiamine HCl 100 mg 07/22/19 10:00 07/31/19 10:24 Vitamin B-1 PO 100 mg QDAY TERRELL Administration Valsartan 80 mg 07/27/19 15:16 07/31/19 10:24 Diovan PO 80 mg BID TERRELL Administration Nutrition/Malnutrition Assess - Dietary Evaluation Nutrition/Malnutrition Findings: Nutrition Notes Start: 07/18/19 12:09 Freq: Status: Active Protocol: Document 07/24/19 10:53 MK (Rec: 07/24/19 10:57 MK [id number]) Co-Sign 07/24/19 10:53 LP Nutrition Notes Initial or Follow up Reassessment Current Diagnosis Acute Kidney Injury, Hypertension,Heart Failure, Respiratory Failure Other Pertinent Diagnosis on HD , metabolic acidosis, pnuemonia Current Diet Nepro at 41ml/hr Labs/Tests K 3.4 BUN 70 Cr 1.8 Pertinent Medications Reviewed Height 5 ft 10 in Weight 102 kg [place] Body Weight (kg) 75.45 BMI 32.2 Subjective/Other Information Pt tolerating Nepro at 41ml/hr . Pt remains on vent. 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 Yes Is Patient Ambulatory and/or Out of Bed No REE-([facility]-confined to bed) 2272.980 Kcal/Kg value to use for calculation 17 Approximate Energy Requirements Using 1734 kcal/Kg Calculation Used for Recommendations Kcal/kg Additional Notes Protein needs: 150 g (> 2 g/ kgIBW) Fluid needs: 1ml/kcal or per MD Nutrition Intervention Change Diet Order: TF Nutrition Support: Nepro 1.8 at 41 ml/hr. Water flush of 130 ml q4h. Kcal 1,771 Protein (gm) 80 Fluid (mL) 715 Goal #1 Meet at least 75% of protein and energy needs Anticipated Discharge Needs: unble to determine at this time Follow-Up By: 07/31/19 Additional Comments Follow for stable TF tolerance
[2019-07-31] MEDS ORDERED: LORazepam 2 MG/ML VIAL IV STA (12:00)
[2019-07-31] MEDS ORDERED: fentaNYL 100 MCG/2 ML INJ IV PRN (12:00)
[2019-07-31] MEDS: carvediloL 12.5 MG TAB PO SCH ×2 (12:01→22:25)
--- NOTE | 2019-07-31 12:44 | Progress Note ---
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 in 2016 Hypertension Alcohol abuse Noncompliant with medications and outpatient cardiac follow up Supportive cardiac management. Subjective Date of service: 07/31/19 Principal diagnosis: anemia Interval history: No interval changes. Objective Vital Signs Temp Pulse Pulse Resp BP Pulse Ox Pulse Ox 07/31/19 12:01 127 H 171/80 07/31/19 12:00 98.7 F 07/31/19 11:55 29 H 07/31/19 11:30 101 H 179/73 99 07/31/19 10:24 101 H 179/73 07/31/19 09:30 103 H 24 143/79 99 07/31/19 09:15 101 H 24 133/79 98 07/31/19 09:00 102 H 31 H 134/76 99 07/31/19 08:45 105 H 25 H 142/80 99 07/31/19 08:40 100 07/31/19 08:35 100 07/31/19 08:30 108 H 41 H 142/80 100 07/31/19 08:17 137 H 195/77 100 07/31/19 08:15 115 H 20 153/92 100 07/31/19 08:00 121 H 26 H 149/89 100 07/31/19 07:45 122 H 24 149/87 100 07/31/19 07:31 124 H 38 H 53/31 100 07/31/19 07:15 126 H 39 H 53/31 100 07/31/19 07:01 137 H 22 42/25 100 07/31/19 07:00 98.2 F 07/31/19 06:00 107 H 20 159/93 100 07/31/19 05:00 104 H 19 138/93 99 07/31/19 04:19 121 H 145/93 100 07/31/19 04:01 107 H 25 H 145/93 98 07/31/19 04:00 99.9 F H 137 H 103 H 20 100 07/31/19 03:01 99 H 18 146/85 96 07/31/19 02:01 105 H 20 151/91 95 07/31/19 01:01 102 H 20 150/84 96 07/31/19 00:14 99.8 F H 07/31/19 00:13 104 H 150/87 99 07/31/19 00:01 108 H 22 150/87 95 07/31/19 00:00 97.9 F 105 H 108 H 20 100 07/30/19 23:01 118 H 19 156/90 98 07/30/19 22:01 111 H 22 139/92 07/30/19 22:00 113 H 145/96 07/30/19 21:01 114 H 22 173/93 98 07/30/19 20:21 100 07/30/19 20:15 116 H 150/92 100 07/30/19 20:11 117 H 17 150/92 97 07/30/19 20:01 113 H 17 150/92 96 07/30/19 20:00 100.1 F H 116 H 116 H 20 100 07/30/19 19:01 119 H 20 151/94 97 07/30/19 18:00 115 H 21 146/92 94 07/30/19 17:01 116 H 14 169/104 92 07/30/19 16:59 112 H 169/104 100 07/30/19 16:01 108 H 18 168/85 95 07/30/19 16:00 103 H 20 100 07/30/19 15:00 102 H 21 159/79 94 07/30/19 14:10 100 07/30/19 14:00 109 H 20 184/106 99 07/30/19 13:59 114 H 184/106 07/30/19 13:00 111 H 20 162/91 94 - Physical Examination General: Other (unresponsive on the vent) Neck: Positive: Other (s/p trach placement) Cardiac: Positive: Reg Rate and Rhythm - Labs and Meds Coagulation 07/31/19 Range/Units 04:53 PT 20.2 H (12.2-14.9) Sec. INR 1.69 H (0.87-1.13) CBC 07/31/19 07/31/19 Range/Units 04:53 09:46 WBC 12.8 H (4.5-11.0) K/mm3 RBC 2.45 L (3.65-5.03) M/mm3 Hgb 7.4 L 7.1 L (11.8-15.2) gm/dl Hct 23.4 L 22.0 L (35.5-45.6) % Plt Count 243 (140-440) K/mm3 Lymph # 0.8 L (1.2-5.4) K/mm3 [place] # 1.0 H (0.0-0.8) K/mm3 Eos # 0.4 (0.0-0.4) K/mm3 Baso # 0.1 (0.0-0.1) K/mm3
--- NOTE | 2019-07-31 15:28 | Progress Note ---
Assessment and Plan Cultures: 07/12/2019 blood culture: Negative 07/14/2019 urine culture: mixed growth 07/17/2019 tracheal aspirate: E coli 07/28/2019 urine culture: pending 07/28/2019 blood culture: pending A/P: 48/M with deafness, HTN, CHF, anxiety, depression, COPD was admitted to the hospital on 07/12/2019 with shortness of breath, found to have hypoxia and renal failure and was started on urgent dialysis, now with: #Shock, following PEA cardiac arrest #Bilateral multifocal pneumonia, acute respiratory failure: Possibly aspiration v/s lung contusion from CPR following cardiac arrest. #Acute renal failure: Dialysis requiring. Nephrology following, evaluating for glomerulonephritis and vasculitis. Patient also has rare schistocytes in peripheral blood along with few eosinophils in urine. Renally dose abx. #CHF #Acute encephalopathy: post arrest. Recs: -Remain off antibiotics for now - follow up fever and WBC - possible central fevers - Poor prognosis. - leery of empiric antibiotics in this patient given severe medical comorbidities and poor prognosis. - procalcitonin significantly improved, though not normal. Repeat cultures no growth. CXR improved. Despite persistent fevers, do not recommend empiric antibiotics. Will follow. Salo Morgan MD [facility], [place], [facility]ated [facility] ([facility]) M: [phone] O: [phone] F: [phone] Subjective Date of service: 07/31/19 Principal diagnosis: anemia Interval history: Afebrile over last 24 hours, white count increased to 13. Remains nonresponsive Objective - Exam Narrative Exam: Constitutional: non-responsive. Trach/PEG Head, Ears, Nose: Trach, minor bleeding on dressing. Cardiovascular: S1, S2 normal. Respiratory: Good air entry, clear to auscultation bilaterally GI: Soft, non-tender; bowel sounds +PEG Musculoskeletal: No pedal edema, no cyanosis. Skin: No rash or abscess Hem/Lymphatic: No palpable cervical or supraclavicular nodes. No lymphangitis Psych: Non-responsive. Neurological: Non-responsive - Constitutional Vitals: Vital Signs Temp Pulse Resp BP Pulse Ox 98.7 F 108 H 24 149/89 100 07/31/19 12:00 07/31/19 15:00 07/31/19 15:00 07/31/19 15:00 07/31/19 15:00 Temperature -Last 24 Hours Temperature 98.7 F Temperature 98.2 F Temperature 99.9 F Temperature 99.8 F Temperature 97.9 F Temperature 100.1 F Temperature 100.1 F - Labs CBC & Chem 7: 07/31/19 09:46 07/29/19 04:45 Labs: Abnormal lab results 07/31/19 07/31/19 07/31/19 Range/Units 04:53 04:53 09:46 WBC 12.8 H (4.5-11.0) K/mm3 RBC 2.45 L (3.65-5.03) M/mm3 Hgb 7.4 L 7.1 L (11.8-15.2) gm/dl Hct 23.4 L 22.0 L (35.5-45.6) % MCV 95 H (84-94) fl RDW 20.2 H (13.2-15.2) % Lymph % (Auto) 6.6 L (13.4-35.0) % [place] % (Auto) 8.1 H (0.0-7.3) % Lymph # 0.8 L (1.2-5.4) K/mm3 [place] # 1.0 H (0.0-0.8) K/mm3 Seg Neutrophils % 81.6 H (40.0-70.0) % Seg Neutrophils # 10.4 H (1.8-7.7) K/mm3 PT 20.2 H (12.2-14.9) Sec. INR 1.69 H (0.87-1.13)
[2019-07-31] MEDS: hydrALAZINE 20 MG/1 ML INJ IV PRN (16:03)
[2019-07-31] MEDS: levETIRAcetam 1,000 MG in DEXTROSE 5% IN WATER 100 ML IV SCH (18:00)
--- NOTE | 2019-07-31 18:42 | Event Note ---
Date: 07/31/19 Nurse reports that patient had a witnessed seizure. Reconsult neurology, started on IV Keppra, seizure precautions Ativan as needed ,CT head without contrast, EEG supportive care Discussed with patient's nurse
[2019-08-01] MEDS: LORazepam 2 MG/ML VIAL IV PRN (00:48)
[2019-08-01 05:35] LABS: Basophils # (Auto) 0.1 K/mm3 (0.0-0.1); Basophils % (Auto) 0.7 % (0.0-1.8); Eosinophils # (Auto) 0.4 K/mm3 (0.0-0.4); Eosinophils % (Auto) 2.3 % (0.0-4.3); Hematocrit 20.4 % (35.5-45.6); Hemoglobin 6.5 gm/dl (11.8-15.2); Mean Corpuscular HGB Conc 32 % (32-34); Mean Corpuscular Volume 96 fl (84-94); Monocytes # (Auto) 1.4 K/mm3 (0.0-0.8); Monocytes % (Auto) 8.4 % (0.0-7.3); Platelet Count 237 K/mm3 (140-440); Red Blood Count 2.12 M/mm3 (3.65-5.03)
[2019-08-01 05:39] LABS: Red Cell Distribution Width 20.2 % (13.2-15.2)
[2019-08-01 06:03] LABS: Alanine Aminotransferase 8 units/L (7-56); Albumin 2.4 g/dL (3.9-5); BUN/Creatinine Ratio 19; Blood Urea Nitrogen 23 mg/dL (9-20); Calcium 8.3 mg/dL (8.4-10.2); Hemolysis Index 0
--- NOTE | 2019-08-01 07:56 | Progress Note ---
Assessment and Plan Assessment and plan: --Anemia; hemoglobin 6.5 Patient had some bleeding from the tracheostomy site yesterday which was resolve d Type and cross, transfuse 1 unit PRBC, monitor H&H and transfuse additional PRBC as needed --Hypomagnesemia; we will replace with mag sulfate 2 g Had maintenance Mag-Ox 400 mg daily, monitor electrolytes --Severe malnutrition/hypoalbuminemia; Will consult dietitian for tube feeding, nutrition supplements --Persistent fevers; patient completed antibiotics recently ID following, fevers probably central. Supportive care T-max 101.3 F --Bleeding around tracheostomy site ; resolved No new episodes , supportive care --Acute hypoxic respiratory failure on MV > 96 hours, continue mechanical ventilator. s/p trach and PEG on 07/29/2019, trach and PEG care --Bilateral pneumonia: Completed course of antibiotics for 7 days per ID. 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 Fluid was removed via dialysis, now has good urine output, improving cardiology, patient now appears to be improving --Fluid overload, Ascites, status post paracentesis on 07/15, 3.2 L removed. Received dialysis. --Severe ARF due to ATN, no longer needing HD. Nephrology input appreciated, has good urine output. HD cath now removed. --acute metabolic encephalopathy, acute metabolic encephalopathy, poa, thought to be due to severe Uremia, but uremia improved and he still not responsive , needing restraints for agitation CVA; noted on MRI, optimize medications for secondary prevention, aspirin, statin, blood pressure control. --Anemia appears AOCD due to renal dysfunction: continue to monitor cbc --Thrombocytopenia: Likely due to alcohol abuse, resolved -- Obesity, bmi 32.1: residence counselor on lifestyle modification if patient improves --Transient A. fib/a flutter on NSVT. Now resolved, no further medication or work-up required Resume Eliquis 5 mg twice a day if okay with surgery --Hypertensive urgency; continue to adjust BP meds --Hypernatremia; continue free water via G-tube, added small amounts of D5 water given advanced heart failure --History of nonadherence, alcohol abuse, plan to residence counselor patient to be his mentation improves. --Discharge planning Possible LTAC placement Plan of care reviewed with the patient's nurse and the case management Critical care time 32 minutes Hospitalist Physical - Constitutional Vitals: Temp Pulse Resp BP Pulse Ox 100.4 F H 85 20 144/71 100 08/01/19 03:19 08/01/19 06:45 08/01/19 06:45 08/01/19 06:45 08/01/19 06:45 General appearance: Present: mild distress, well-nourished, obese, other (Febrile, tracheostomy, on vent) Results - Labs CBC & Chem 7: 08/01/19 05:21 08/01/19 05:21 Labs: Laboratory Last Values WBC 17.0 K/mm3 (4.5-11.0) H 08/01/19 05:21 RBC 2.12 M/mm3 (3.65-5.03) L 08/01/19 05:21 Hgb 6.5 gm/dl (11.8-15.2) L 08/01/19 05:21 Hct 20.4 % (35.5-45.6) L 08/01/19 05:21 MCV 96 fl (84-94) H 08/01/19 05:21 MCH 31 pg (28-32) 08/01/19 05:21 MCHC 32 % (32-34) 08/01/19 05:21 RDW 20.2 % (13.2-15.2) H 08/01/19 05:21 Plt Count 237 K/mm3 (140-440) 08/01/19 05:21 Lymph % (Auto) 6.0 % (13.4-35.0) L 08/01/19 05:21 [place] % (Auto) 8.4 % (0.0-7.3) H 08/01/19 05:21 Eos % (Auto) 2.3 % (0.0-4.3) 08/01/19 05:21 Baso % (Auto) 0.7 % (0.0-1.8) 08/01/19 05:21 Lymph # 1.0 K/mm3 (1.2-5.4) L 08/01/19 05:21 [place] # 1.4 K/mm3 (0.0-0.8) H 08/01/19 05:21 Eos # 0.4 K/mm3 (0.0-0.4) 08/01/19 05:21 Baso # 0.1 K/mm3 (0.0-0.1) 08/01/19 05:21 Add Manual Diff Complete 07/25/19 04:05 Total Counted 100 07/25/19 04:05 Seg Neutrophils % 82.6 % (40.0-70.0) H 08/01/19 05:21 Seg Neuts % (Manual) 76.0 % (40.0-70.0) H 07/25/19 04:05 Band Neutrophils % 0 % 07/25/19 04:05 Lymphocytes % (Manual) 9.0 % (13.4-35.0) L 07/25/19 04:05 Reactive Lymphs % (Man) 0 % 07/25/19 04:05 Monocytes % (Manual) 11.0 % (0.0-7.3) H 07/25/19 04:05 Eosinophils % (Manual) 2.0 % (0.0-4.3) 07/25/19 04:05 Basophils % (Manual) 0 % (0.0-1.8) 07/25/19 04:05 Metamyelocytes % 2.0 % 07/25/19 04:05 Myelocytes % 0 % 07/25/19 04:05 Promyelocytes % 0 % 07/25/19 04:05 Blast Cells % 0 % 07/25/19 04:05 Nucleated RBC % Not Reportable 07/25/19 04:05 Seg Neutrophils # 14.0 K/mm3 (1.8-7.7) H 08/01/19 05:21 Seg Neutrophils # Man 8.7 K/mm3 (1.8-7.7) H 07/25/19 04:05 Band Neutrophils # 0.0 K/mm3 07/25/19 04:05 Lymphocytes # (Manual) 1.0 K/mm3 (1.2-5.4) L 07/25/19 04:05 Abs React Lymphs (Man) 0.0 K/mm3 07/25/19 04:05 Monocytes # (Manual) 1.3 K/mm3 (0.0-0.8) H 07/25/19 04:05 Eosinophils # (Manual) 0.2 K/mm3 (0.0-0.4) 07/25/19 04:05 Basophils # (Manual) 0.0 K/mm3 (0.0-0.1) 07/25/19 04:05 Metamyelocytes # 0.2 K/mm3 07/25/19 04:05 Myelocytes # 0.0 K/mm3 07/25/19 04:05 Promyelocytes # 0.0 K/mm3 07/25/19 04:05 Blast Cells # 0.0 K/mm3 07/25/19 04:05 WBC Morphology Not Reportable 07/25/19 04:05 Hypersegmented Neuts Not Reportable 07/25/19 04:05 Hyposegmented Neuts Not Reportable 07/25/19 04:05 Hypogranular Neuts Not Reportable 07/25/19 04:05 Smudge Cells Not Reportable 07/25/19 04:05 Toxic Granulation Not Reportable 07/25/19 04:05 Toxic Vacuolation Not Reportable 07/25/19 04:05 Dohle Bodies Not Reportable 07/25/19 04:05 Pelger-Huet Anomaly Not Reportable 07/25/19 04:05 Mack Rods Not Reportable 07/25/19 04:05 Platelet Estimate Consistent w auto 07/25/19 04:05 Clumped Platelets Not Reportable 07/25/19 04:05 Plt Clumps, EDTA Not Reportable 07/25/19 04:05 Large Platelets Not Reportable 07/25/19 04:05 Giant Platelets Not Reportable 07/25/19 04:05 Platelet Satelliting Not Reportable 07/25/19 04:05 Plt Morphology Comment Not Reportable 07/25/19 04:05 RBC Morphology Not Reportable 07/25/19 04:05 Dimorphic RBCs Not Reportable 07/25/19 04:05 Polychromasia Not Reportable 07/25/19 04:05 Hypochromasia 1+ 07/25/19 04:05 Poikilocytosis Not Reportable 07/25/19 04:05 Anisocytosis Few 07/25/19 04:05 Microcytosis Not Reportable 07/25/19 04:05 Macrocytosis Not Reportable 07/25/19 04:05 Spherocytes Not Reportable 07/25/19 04:05 Pappenheimer Bodies Not Reportable 07/25/19 04:05 Sickle Cells Not Reportable 07/25/19 04:05 Target Cells Not Reportable 07/25/19 04:05 Tear Drop Cells Not Reportable 07/25/19 04:05 Ovalocytes Not Reportable 07/25/19 04:05 Helmet Cells Not Reportable 07/25/19 04:05 Jackson-Trivoli Bodies Not Reportable 07/25/19 04:05 [place] Rings Not Reportable 07/25/19 04:05 [place] Cells Not Reportable 07/25/19 04:05 Bite Cells Not Reportable 07/25/19 04:05 Crenated Cell Not Reportable 07/25/19 04:05 Elliptocytes Not Reportable 07/25/19 04:05 Acanthocytes (Spur) Not Reportable 07/25/19 04:05 Rouleaux Not Reportable 07/25/19 04:05 Hemoglobin C Crystals Not Reportable 07/25/19 04:05 Schistocytes Rare 07/25/19 04:05 Malaria parasites Not Reportable 07/25/19 04:05 Víctor Bodies Not Reportable 07/25/19 04:05 Hem Pathologist Commnt No 07/25/19 04:05 PT 20.2 Sec. (12.2-14.9) H 07/31/19 04:53 INR 1.69 (0.87-1.13) H 07/31/19 04:53 APTT 47.8 Sec. (24.2-36.6) H 07/12/19 15:08 ABG pH 7.457 pH Units (7.350-7.450) H 07/25/19 05:27 ABG pCO2 39.4 mm Hg 07/25/19 05:27 ABG pO2 75.5 mm Hg (80.0-90.0) L 07/25/19 05:27 ABG HCO3 27.2 mmol/L (20.0-26.0) H 07/25/19 05:27 ABG O2 Saturation 97.1 % (95.0-99.0) 07/25/19 05:27 ABG O2 Content 9.4 (0.0-44) 07/25/19 05:27 ABG Base Excess 3.1 mmol/L (-2.0-3.0) H 07/25/19 05:27 ABG Hemoglobin 7.0 gm/dl (14.0-18.0) L 07/25/19 05:27 ABG Carboxyhemoglobin 2.2 % (0.0-5.0) 07/25/19 05:27 ABG Methemoglobin 0.5 % (0.0-1.5) 07/25/19 05:27 Oxyhemoglobin 94.4 % (95.0-99.0) L 07/25/19 05:27 FiO2 30 % 07/25/19 05:27 Sodium 146 mmol/L (137-145) H 08/01/19 05:21 Potassium 4.8 mmol/L (3.6-5.0) 08/01/19 05:21 Chloride 110.8 mmol/L (98-107) H 08/01/19 05:21 Carbon Dioxide 23 mmol/L (22-30) 08/01/19 05:21 Anion Gap 17 mmol/L 08/01/19 05:21 BUN 23 mg/dL (9-20) H 08/01/19 05:21 Creatinine 1.2 mg/dL (0.8-1.5) 08/01/19 05:21 Estimated GFR > 60 ml/min 08/01/19 05:21 BUN/Creatinine Ratio 19 % 08/01/19 05:21 Glucose 118 mg/dL (75-100) H 08/01/19 05:21 POC Glucose 122 (70-105) H 07/27/19 01:17 Calcium 8.3 mg/dL (8.4-10.2) L 08/01/19 05:21 Phosphorus 2.70 mg/dL (2.5-4.5) 07/24/19 07:03 Magnesium 1.50 mg/dL (1.7-2.3) L 08/01/19 05:21 Iron 15 ug/dL (49-181) L 07/15/19 06:30 TIBC 186 mcg/dL (250-450) L 07/15/19 06:30 Ferritin 428.2 ng/mL (13.0-400.0) H 07/15/19 06:30 Total Bilirubin 0.60 mg/dL (0.1-1.2) 08/01/19 05:21 Direct Bilirubin 0.7 mg/dL (0-0.2) H 07/18/19 05:40 Indirect Bilirubin 0.4 mg/dL 07/18/19 05:40 AST 39 units/L (5-40) 08/01/19 05:21 ALT 8 units/L (7-56) 08/01/19 05:21 Alkaline Phosphatase 179 units/L (35-129) H 08/01/19 05:21 Lactate Dehydrogenase 294 units/L (91-180) H 07/18/19 05:40 Total Creatine Kinase 59 units/L (55-170) 07/14/19 07:16 Troponin T 0.188 ng/mL (0.00-0.029) H* 07/12/19 17:04 NT-Pro-B Natriuret Pep > 59239 pg/mL (0-450) H 07/12/19 15:08 Serum Total Protein 5.9 g/dL (6.1-8.1) L 07/23/19 05:30 Total Protein 7.5 g/dL (6.3-8.2) 08/01/19 05:21 Albumin 2.4 g/dL (3.9-5) L 08/01/19 05:21 Albumin/Globulin Ratio 0.5 % 08/01/19 05:21 Hilbb-1-Vwkhlxfgs 0.5 g/dL (0.2-0.3) H 07/23/19 05:30 Gkrue-1-Dfsupenwt 0.5 g/dL (0.5-0.9) 07/23/19 05:30 Beta Globulins 0.4 g/dL (0.2-0.5) 07/23/19 05:30 Gamma Globulins 2.0 g/dL (0.8-1.7) H 07/23/19 05:30 Abnorm Protein Band 1 see below 07/23/19 05:30 PEP Interpretation see below H 07/23/19 05:30 Triglycerides 128 mg/dL (2-149) 07/12/19 15:08 Cholesterol 121 mg/dL (50-199) 07/12/19 15:08 LDL Cholesterol Direct 40 mg/dL (50-130) L 07/12/19 15:08 HDL Cholesterol 44 mg/dL (40-59) 07/12/19 15:08 Cholesterol/HDL Ratio 2.75 % 07/12/19 15:08 Vitamin B12 960.4 pg/mL (211-911) H 07/21/19 08:00 Folate 6.18 ng/mL (7.3-26.0) L 07/21/19 08:00 Procalcitonin 1.48 ng/mL (<0.15) 07/30/19 04:56 Urine Color Yellow (Yellow) 07/28/19 15:00 Urine Turbidity Clear (Clear) 07/28/19 15:00 Urine pH 7.0 (5.0-7.0) 07/28/19 15:00 Ur Specific [place] 1.013 (1.003-1.030) 07/28/19 15:00 Urine Protein 100 mg/dl mg/dL (Negative) 07/28/19 15:00 Urine Glucose (UA) Neg mg/dL (Negative) 07/28/19 15:00 Urine Ketones Neg mg/dL (Negative) 07/28/19 15:00 Urine Blood Sm (Negative) 07/28/19 15:00 Urine Nitrite Neg (Negative) 07/28/19 15:00 Urine Bilirubin Neg (Negative) 07/28/19 15:00 Urine Urobilinogen < 2.0 mg/dL (<2.0) 07/28/19 15:00 Ur Leukocyte Esterase Neg (Negative) 07/28/19 15:00 Urine WBC (Auto) 2.0 /HPF (0.0-6.0) 07/28/19 15:00 Urine RBC (Auto) 2.0 /HPF (0.0-6.0) 07/28/19 15:00 U Epithel Cells (Auto) < 1.0 /HPF (0-13.0) 07/28/19 15:00 Urine Bacteria (Auto) 1+ /HPF (Negative) 07/14/19 17:28 Urine Mucus Few /HPF 07/14/19 17:28 Urine Yeast (Budding) Few /HPF 07/14/19 17:28 Urine Eosinophils Rare seen (None Seen) 07/14/19 17:28 Urine Creatinine 106.2 mg/dL (0.1-20.0) H 07/14/19 17:28 Protein/Creatinin Ratio 1.66 07/14/19 16:40 Urine Sodium 67 mmol/L 07/14/19 17:28 Urine Urea Nitrogen 100 07/14/19 17:28 Urine Total Protein 173 mg/dL (5-11.8) H 07/14/19 16:40 Fluid Type Paracentesis 07/14/19 10:45 Fluid Color Bloody 07/14/19 10:45 Fluid Appearance Bloody 07/14/19 10:45 Fluid WBC 120 /mm3 07/14/19 10:45 Fluid RBC 20334 /mm3 07/14/19 10:45 Fluid Seg Neutrophils 33.0 % 07/14/19 10:45 Fluid Lymphocytes 17.0 % 07/14/19 10:45 Fluid Reactive Lymphs 0 % 07/14/19 10:45 Fluid Monocytes 50.0 % 07/14/19 10:45 Fluid Eosinophils 0 % 07/14/19 10:45 Fluid Basophils 0 % 07/14/19 10:45 Fluid Glucose 93 mg/dL (40-70) H 07/14/19 10:45 Fluid Total Protein 4.7 (15.0-45.0) L 07/14/19 10:45 Fluid LDH 07/14/19 10:45 Random Vancomycin 14.5 ug/mL (0-40.0) 07/19/19 05:15 SHANNA Screen Negative (Negative) 07/14/19 11:50 Proteinase 3 (PR3) Ab <1.0 AI (<1.0) 07/14/19 11:50 Myeloperoxidase Ab <1.0 AI (<1.0) 07/14/19 11:50 Glomerular Base Mem IgG See scanned result 07/14/19 11:50 Complement C3 124 mg/dL (82-185) 07/14/19 11:50 Complement C4 28 mg/dL (15-53) 07/14/19 11:50 Hepatitis A IgM Ab Non-reactive (NonReactive) 07/12/19 17:49 Hep Bs Antigen Non-reactive (Negative) 07/14/19 11:50 Hep B Core IgM Ab Non-reactive (NonReactive) 07/12/19 17:49 Hepatitis C Antibody Non-reactive (NonReactive) 07/14/19 11:50 HIV-1 Antibody See scanned result 07/14/19 11:50 HIV-2 Ab (Immunoblot) See scanned result 07/14/19 11:50 Schistocytes Smear Rare 07/18/19 05:40 Blood Type A POSITIVE 07/28/19 16:44 Antibody Screen Negative 07/28/19 16:44 Crossmatch See Detail 07/28/19 16:44 Active Medications - Current Medications Current Medications: Generic Name Dose Route Start Last Admin Trade Name Freq PRN Reason Stop Dose Admin Acetaminophen 650 mg 07/30/19 19:15 07/30/19 22:02 Tylenol FEEDTUBE 650 mg Q4HR PRN Administration Fever >101 Albuterol 2.5 mg 07/14/19 04:54 07/16/19 13:42 Proventil IH 2.5 mg Q4HRT PRN Administration Shortness Of Breath Lipase/Protease/Amylase 1 each 07/18/19 13:20 Pancrenarinder [place] 10,500 Unit FEEDTUBE PRN PRN For Clogged Feeding Tube Aspirin 81 mg 07/28/19 10:00 07/31/19 10:25 Baby Aspirin FEEDTUBE Not Given QDAY TERRELL Carvedilol 12.5 mg 07/31/19 12:00 07/31/19 22:25 Coreg PO 12.5 mg BID TERRELL Administration Fentanyl 50 mcg 07/31/19 12:00 07/31/19 11:55 Sublimaze IV 50 mcg Q2H PRN Administration Pain , Severe (7-10) Glycopyrrolate 0.2 mg 07/27/19 16:00 07/31/19 17:10 Robinul IV 0.2 mg Q6H TERRELL Administration Haloperidol Lactate 5 mg 07/12/19 21:35 07/24/19 12:00 Haldol IV 5 mg Q1H PRN Administration Unrespon. to mult. doses BZD's Hydralazine HCl 10 mg 07/23/19 10:46 07/31/19 16:03 Apresoline IV 10 mg Q4HR PRN Administration BP >160/100 Epinephrine 8 mg/ Sodium 250 mls @ 0 mls/hr 07/31/19 09:00 Chloride IV TITR TERRELL Propofol 1,000 mg in 100 mls @ 3.06 mls/hr 07/31/19 12:00 08/01/19 00:52 Diprivan 10 Mg/Ml IV 15 mcg/kg/min TITR TERRELL 9.18 mls/hr Administration Protocol 5 MCG/KG/MIN Levetiracetam 1,000 mg/ 110 mls @ 400 mls/hr 07/31/19 18:00 07/31/19 18:00 Dextrose IV 400 mls/hr Q12H TERRELL Administration Sodium Chloride 500 mls @ 0 mls/hr 08/01/19 08:00 Nacl 0.9% 500 Ml IV 08/01/19 17:00 ONCE TERRELL As Directed Magnesium Sulfate 2 gm in 50 mls @ 25 mls/hr 08/01/19 08:30 Magnesium Sulfate 2gm/50ml IV 08/01/19 10:29 ONCE ONE Lansoprazole 30 mg 07/18/19 11:00 07/31/19 10:24 Prevacid Solutab FEEDTUBE 30 mg QDAY TERRELL Administration Lorazepam 1 mg 07/27/19 11:49 08/01/19 00:48 Ativan IV 1 mg Q2H PRN Administration Agitation Magnesium Oxide 400 mg 08/01/19 10:00 Mag-Ox PO QDAY TERRELL Multivit/Ca Carb/B Cmplx/FA/Prenat 1 cap 07/29/19 10:00 07/31/19 10:25 Renal Caps PO 1 cap QDAY TERRELL Administration Simple Syrup 15 ml 07/18/19 13:20 Simple Syrup FEEDTUBE PRN PRN Hypoglycemia Simple Syrup 30 ml 07/18/19 13:20 Simple Syrup FEEDTUBE PRN PRN Hypoglycemia Sodium Bicarbonate 325 mg 07/18/19 13:20 Sodium Bicarbonate FEEDTUBE PRN PRN For Clogged Feeding Tube Sodium Chloride 500 ml 07/31/19 08:00 Nacl 0.9% 500 Ml IV DIRECT TERRELL Thiamine HCl 100 mg 07/22/19 10:00 07/31/19 10:24 Vitamin B-1 PO 100 mg QDAY TERRELL Administration Valsartan 80 mg 07/27/19 15:16 07/31/19 21:50 Diovan PO 80 mg BID TERRELL Administration Nutrition/Malnutrition Assess - Dietary Evaluation Nutrition/Malnutrition Findings: Nutrition Notes Start: 07/18/19 12: 09 Freq: Status: Active Protocol: Document 07/31/19 10:29 CT (Rec: 07/31/19 10:32 CT [id number]) Co-Sign 07/31/19 10:29 LP Nutrition Notes Initial or Follow up Reassessment Current Diagnosis Acute Kidney Injury, Hypertension,Heart Failure, Respiratory Failure Other Pertinent Diagnosis metabolic acidosis, pnuemonia Current Diet Nepro at 41ml/hr Labs/Tests Na 148 BUN29 Glu 104 Pertinent Medications Lorazepam Height 5 ft 10 in Weight 102 kg [place] Body Weight (kg) 75.45 BMI 32.2 Subjective/Other Information Follow up for TF tolerance. Pt TF not running at time of visit d/t bleeding in the trach. Per RN, she will restart the TF. Percent of energy/protein needs met: 0% / 0% Burn Absent Trauma Absent GI Symptoms None Difficulty In Swallowing,Chewing Current % PO Negligible Minimum of two criteria Yes Energy Intake (severe) < or equal to 50% Estimated Energy Requirement > or equal to 5 days Muscle Mass Mild Depletion (non-severe) Fluid Accumulation Moderate to Severe (severe) Reduced Manager Audio Strength Measurably Reduced (severe) #2 Nutrition Diagnosis Malnutrition Diagnosis Progress(for reassessment Continues documentation) #1 Nutrition Diagnosis Inadequate oral intake Diagnosis Progress(for reassessment Continues documentation) Is patient on ventilator? Yes Is Patient Ambulatory and/or Out of Bed No REE-([facility]-confined to bed) 2272.980 Kcal/Kg value to use for calculation 17 Approximate Energy Requirements Using 1734 kcal/Kg Calculation Used for Recommendations Kcal/kg Additional Notes Protein needs: 150 g (> 2 g/ kgIBW) Fluid needs: 1ml/kcal or per MD Nutrition Intervention Change Diet Order: TF Nutrition Support: Nepro 1.8 at 41 ml/hr. Flush 250 ml q6h for hypernatremia, then flush 130 ml q4h once resolved. Kcal 1,771 Protein (gm) 80 Fluid (mL) 715 Goal #1 Meet at least 75% of protein and energy needs Anticipated Discharge Needs: unable to determine at this time Follow-Up By: 08/04/19 Additional Comments Follow for restart of TF and tolerance. Follow up for renal labs
[2019-08-01] MEDS ORDERED: SODIUM CHLORIDE 0.9% 500 ML 500 ML IV SCH (08:00)
[2019-08-01] MEDS ORDERED: MAGNESIUM SULFATE 2 GM/50 ML BAG IV ONE (08:30)
[2019-08-01] MEDS: levETIRAcetam 1,000 MG in DEXTROSE 5% IN WATER 100 ML IV SCH (09:01)
[2019-08-01] MEDS: LANSOPRAZOLE 30 MG SOLUTAB FEEDTUBE SCH (09:07)
[2019-08-01] MEDS: VALSARTAN 40 MG TAB PO SCH ×2 (09:08→22:37)
[2019-08-01] MEDS: THIAMINE 100 MG TAB PO SCH (09:09)
[2019-08-01] MEDS: FOLIC ACID/VIT B COMP W-C 1 MG (RENAL CAPS) PO SCH (09:09)
[2019-08-01] MEDS: carvediloL 12.5 MG TAB PO SCH ×2 (09:53→22:38)
[2019-08-01] MEDS: GLYCOPYRROLATE 0.4 MG/2 ML INJ IV SCH ×4 (09:54→22:38)
[2019-08-01] MEDS: ASPIRIN 81 MG TAB CHEW FEEDTUBE SCH (09:54)
--- NOTE | 2019-08-01 09:55 | Progress Note ---
Assessment and Plan 48 y/o male with inhouse cardiac arrest x2 now with blood coming from trach vs around the trach and now with seizure activity started on diprovan. 1. EEG today 2. Neurology repeat consult 3. No PSV as on sedation 4. BP control 5. Guarded prognosis. CCT 31 minutes. Subjective Date of service: 08/01/19 Principal diagnosis: anemia Interval history: Seizure activity yesterday. Gave ativan and started Diprovan yesterday. Still on Diprovan but had seizure like activity this am. Diprovan increased to 20. No family at bedside. No further bleeding. Objective Vital Signs - 12hr 07/31/19 07/31/19 07/31/19 21:50 22:00 22:15 Temperature Pulse Rate 92 H 94 H 95 H Pulse Rate [ From Monitor] Respiratory 28 H 17 Rate Blood Pressure 159/89 132/70 132/70 O2 Sat by Pulse 100 99 Oximetry O2 Sat by Pulse Oximetry [ Assessment] 07/31/19 07/31/19 07/31/19 22:25 22:27 22:30 Temperature Pulse Rate 92 H 95 H 93 H Pulse Rate [ From Monitor] Respiratory 30 H 21 Rate Blood Pressure 132/70 132/70 130/68 O2 Sat by Pulse 100 100 Oximetry O2 Sat by Pulse Oximetry [ Assessment] 07/31/19 07/31/19 07/31/19 22:45 23:00 23:15 Temperature Pulse Rate 92 H 92 H 91 H Pulse Rate [ From Monitor] Respiratory 22 20 22 Rate Blood Pressure 130/68 126/65 126/65 O2 Sat by Pulse 100 100 100 Oximetry O2 Sat by Pulse Oximetry [ Assessment] 07/31/19 07/31/19 07/31/19 23:30 23:45 23:53 Temperature 101.3 F H Pulse Rate 91 H 90 Pulse Rate [ From Monitor] Respiratory 22 26 H Rate Blood Pressure 136/74 136/74 O2 Sat by Pulse 100 100 Oximetry O2 Sat by Pulse Oximetry [ Assessment] 08/01/19 08/01/19 08/01/19 00:00 00:15 00:30 Temperature Pulse Rate 85 89 84 Pulse Rate [ 85 From Monitor] Respiratory 17 22 20 Rate Blood Pressure 132/73 132/73 138/74 O2 Sat by Pulse 100 99 100 Oximetry O2 Sat by Pulse 100 Oximetry [ Assessment] 08/01/19 08/01/1920 00:45 00:47 01:00 Temperature Pulse Rate 98 H 94 H 88 Pulse Rate [ From Monitor] Respiratory 34 H 19 Rate Blood Pressure 138/74 154/64 121/63 O2 Sat by Pulse 99 98 100 Oximetry O2 Sat by Pulse Oximetry [ Assessment] 08/01/19 08/01/19 08/01/19 01:15 01:30 01:45 Temperature Pulse Rate 89 89 87 Pulse Rate [ From Monitor] Respiratory 19 21 21 Rate Blood Pressure 121/63 127/65 127/65 O2 Sat by Pulse 100 100 100 Oximetry O2 Sat by Pulse Oximetry [ Assessment] 08/01/19 08/01/19 08/01/19 02:00 02:15 02:30 Temperature Pulse Rate 84 86 86 Pulse Rate [ From Monitor] Respiratory 24 16 16 Rate Blood Pressure 131/73 131/73 132/78 O2 Sat by Pulse 100 100 100 Oximetry O2 Sat by Pulse Oximetry [ Assessment] 08/01/19 08/01/19 08/01/19 02:45 03:00 03:15 Temperature Pulse Rate 85 85 85 Pulse Rate [ From Monitor] Respiratory 22 21 25 H Rate Blood Pressure 132/78 134/71 134/71 O2 Sat by Pulse 100 100 100 Oximetry O2 Sat by Pulse Oximetry [ Assessment] 08/01/19 08/01/19 08/01/19 03:19 03:30 03:45 Temperature 100.4 F H Pulse Rate 88 87 Pulse Rate [ From Monitor] Respiratory 19 22 Rate Blood Pressure 137/70 137/70 O2 Sat by Pulse 100 100 Oximetry O2 Sat by Pulse Oximetry [ Assessment] 08/01/19 08/01/19 08/01/19 04:00 04:15 04:30 Temperature Pulse Rate 86 86 85 Pulse Rate [ 90 From Monitor] Respiratory 27 H 17 18 Rate Blood Pressure 120/61 120/61 126/62 O2 Sat by Pulse 100 100 100 Oximetry O2 Sat by Pulse Oximetry [ Assessment] 08/01/19 08/01/19 08/01/19 04:45 05:00 05:15 Temperature Pulse Rate 82 84 84 Pulse Rate [ From Monitor] Respiratory 20 30 H 18 Rate Blood Pressure 126/62 126/68 126/68 O2 Sat by Pulse 100 100 100 Oximetry O2 Sat by Pulse Oximetry [ Assessment] 08/01/19 08/01/19 08/01/19 05:30 05:45 06:00 Temperature Pulse Rate 84 84 82 Pulse Rate [ From Monitor] Respiratory 17 18 16 Rate Blood Pressure 133/68 133/68 134/69 O2 Sat by Pulse 100 100 100 Oximetry O2 Sat by Pulse Oximetry [ Assessment] 08/01/19 08/01/19 08/01/19 06:15 06:30 06:45 Temperature Pulse Rate 85 83 85 Pulse Rate [ From Monitor] Respiratory 23 20 20 Rate Blood Pressure 134/69 144/71 144/71 O2 Sat by Pulse 100 100 100 Oximetry O2 Sat by Pulse Oximetry [ Assessment] 08/01/19 08/01/19 08/01/19 08:00 08:07 09:08 Temperature 100.4 F H Pulse Rate 83 86 Pulse Rate [ From Monitor] Respiratory Rate Blood Pressure 133/77 158/63 O2 Sat by Pulse 100 Oximetry O2 Sat by Pulse Oximetry [ Assessment] Constitutional: no acute distress, comatose Eyes: non-icteric ENT: other (orally intubated not on sedation) Neck: supple Effort: normal Ascultation: Bilateral: clear Gastrointestinal: normoactive bowel sounds, soft, non-tender Integumentary: normal CBC and BMP: 08/01/19 05:21 08/01/19 05:21 ABG, PT/INR, D-dimer: ABG ABG pH 7.457 pH Units (7.350-7.450) H 07/25/19 05:27 ABG pCO2 39.4 mm Hg 07/25/19 05:27 ABG pO2 75.5 mm Hg (80.0-90.0) L 07/25/19 05:27 ABG O2 Saturation 97.1 % (95.0-99.0) 07/25/19 05:27 PT/INR, D-dimer PT 20.2 Sec. (12.2-14.9) H 07/31/19 04:53 INR 1.69 (0.87-1.13) H 07/31/19 04:53 Abnormal lab findings: Abnormal Labs 07/12/19 07/12/19 07/12/19 14:46 15:08 15:08 WBC 14.7 H RBC 2.97 L Hgb 9.7 L Hct 29.0 L MCV 98 H MCH 33 H RDW 19.8 H Plt Count 124 L Lymph % (Auto) [place] % (Auto) Baso % (Auto) Lymph # [place] # Baso # Seg Neutrophils % Seg Neuts % (Manual) 91.0 H Lymphocytes % (Manual) 2.0 L Monocytes % (Manual) Nucleated RBC % 1.0 H Seg Neutrophils # Seg Neutrophils # Man 13.4 H Lymphocytes # (Manual) 0.3 L Monocytes # (Manual) PT 19.8 H INR 1.65 H APTT 47.8 H ABG pH ABG pO2 ABG HCO3 ABG O2 Saturation ABG Base Excess ABG Hemoglobin Oxyhemoglobin Sodium Potassium Chloride Carbon Dioxide BUN Creatinine Glucose POC Glucose 110 H Calcium Phosphorus Magnesium Iron TIBC Ferritin Total Bilirubin Direct Bilirubin AST Alkaline Phosphatase Lactate Dehydrogenase Troponin T NT-Pro-B Natriuret Pep Serum Total Protein Total Protein Albumin Yhfgf-4-Nrunksbat Gamma Globulins PEP Interpretation LDL Cholesterol Direct Vitamin B12 Folate Urine WBC (Auto) Urine Creatinine Urine Total Protein Fluid Glucose Fluid Total Protein Crossmatch 07/12/19 07/12/19 07/12/19 15:08 15:08 15:08 WBC RBC Hgb Hct MCV MCH RDW Plt Count Lymph % (Auto) [place] % (Auto) Baso % (Auto) Lymph # [place] # Baso # Seg Neutrophils % Seg Neuts % (Manual) Lymphocytes % (Manual) Monocytes % (Manual) Nucleated RBC % Seg Neutrophils # Seg Neutrophils # Man Lymphocytes # (Manual) Monocytes # (Manual) PT INR APTT ABG pH ABG pO2 ABG HCO3 ABG O2 Saturation ABG Base Excess ABG Hemoglobin Oxyhemoglobin Sodium 125 L Potassium 5.5 H Chloride 84.9 L Carbon Dioxide 13 L BUN 70 H Creatinine 8.8 H Glucose POC Glucose Calcium 8.0 L Phosphorus Magnesium 1.30 L Iron TIBC Ferritin Total Bilirubin 1.30 H Direct Bilirubin 0.9 H AST 53 H Alkaline Phosphatase 208 H Lactate Dehydrogenase Troponin T 0.192 H* NT-Pro-B Natriuret Pep > 32017 H Serum Total Protein Total Protein Albumin 3.3 L Okvdu-5-Rbsornzfb Gamma Globulins PEP Interpretation LDL Cholesterol Direct 40 L Vitamin B12 Folate Urine WBC (Auto) Urine Creatinine Urine Total Protein Fluid Glucose Fluid Total Protein Crossmatch 07/12/19 07/13/19 07/13/19 17:04 01:32 01:32 WBC RBC Hgb Hct MCV MCH RDW Plt Count Lymph % (Auto) [place] % (Auto) Baso % (Auto) Lymph # [place] # Baso # Seg Neutrophils % Seg Neuts % (Manual) Lymphocytes % (Manual) Monocytes % (Manual) Nucleated RBC % Seg Neutrophils # Seg Neutrophils # Man Lymphocytes # (Manual) Monocytes # (Manual) PT INR APTT ABG pH ABG pO2 ABG HCO3 ABG O2 Saturation ABG Base Excess ABG Hemoglobin Oxyhemoglobin Sodium 133 L D Potassium 5.3 H Chloride 90.8 L Carbon Dioxide 20 L D BUN 48 H Creatinine 6.2 H Glucose 105 H POC Glucose Calcium 8.2 L Phosphorus 4.90 H Magnesium 1.50 L Iron TIBC Ferritin Total Bilirubin Direct Bilirubin AST Alkaline Phosphatase Lactate Dehydrogenase Troponin T 0.188 H* NT-Pro-B Natriuret Pep Serum Total Protein Total Protein Albumin Eieav-6-Uprsofmfa Gamma Globulins PEP Interpretation LDL Cholesterol Direct Vitamin B12 Folate Urine WBC (Auto) Urine Creatinine Urine Total Protein Fluid Glucose Fluid Total Protein Crossmatch 07/13/19 07/13/19 07/13/19 04:28 04:28 16:16 WBC 15.9 H RBC 3.10 L Hgb 10.2 L Hct 30.6 L MCV 99 H MCH 33 H RDW 19.4 H Plt Count 135 L Lymph % (Auto) [place] % (Auto) Baso % (Auto) Lymph # [place] # Baso # Seg Neutrophils % Seg Neuts % (Manual) Lymphocytes % (Manual) 4.0 L Monocytes % (Manual) Nucleated RBC % Seg Neutrophils # Seg Neutrophils # Man 9.9 H Lymphocytes # (Manual) 0.6 L Monocytes # (Manual) PT INR APTT ABG pH ABG pO2 ABG HCO3 ABG O2 Saturation ABG Base Excess ABG Hemoglobin Oxyhemoglobin Sodium 132 L 134 L Potassium 5.1 H Chloride 90.3 L 92.2 L Carbon Dioxide 17 L 20 L BUN 47 H 55 H Creatinine 6.0 H 6.5 H Glucose 124 H POC Glucose Calcium 8.2 L 7.9 L Phosphorus Magnesium Iron TIBC Ferritin Total Bilirubin Direct Bilirubin AST Alkaline Phosphatase Lactate Dehydrogenase Troponin T NT-Pro-B Natriuret Pep Serum Total Protein Total Protein Albumin Jcigb-7-Qqizwhbve Gamma Globulins PEP Interpretation LDL Cholesterol Direct Vitamin B12 Folate Urine WBC (Auto) Urine Creatinine Urine Total Protein Fluid Glucose Fluid Total Protein Crossmatch 01/27/20 01/27/20 01/27/20 07:16 07:16 07:16 WBC RBC 2.65 L Hgb 8.6 L Hct 25.4 L MCV 96 H MCH 33 H RDW 19.7 H Plt Count 114 L Lymph % (Auto) [place] % (Auto) Baso % (Auto) Lymph # [place] # Baso # Seg Neutrophils % Seg Neuts % (Manual) 89.0 H Lymphocytes % (Manual) 4.0 L Monocytes % (Manual) Nucleated RBC % Seg Neutrophils # Seg Neutrophils # Man Lymphocytes # (Manual) 0.3 L Monocytes # (Manual) PT INR APTT ABG pH ABG pO2 ABG HCO3 ABG O2 Saturation ABG Base Excess ABG Hemoglobin Oxyhemoglobin Sodium 133 L Potassium Chloride 93.0 L Carbon Dioxide 18 L BUN 61 H Creatinine 7.3 H Glucose 113 H POC Glucose Calcium 7.7 L Phosphorus Magnesium Iron TIBC Ferritin Total Bilirubin Direct Bilirubin AST Alkaline Phosphatase Lactate Dehydrogenase 210 H Troponin T NT-Pro-B Natriuret Pep Serum Total Protein Total Protein Albumin Tbfal-1-Levaxicbf Gamma Globulins PEP Interpretation LDL Cholesterol Direct Vitamin B12 Folate Urine WBC (Auto) Urine Creatinine Urine Total Protein Fluid Glucose Fluid Total Protein Crossmatch 07/14/19 07/14/19 07/14/19 10:45 16:40 17:28 WBC RBC Hgb Hct MCV MCH RDW Plt Count Lymph % (Auto) [place] % (Auto) Baso % (Auto) Lymph # [place] # Baso # Seg Neutrophils % Seg Neuts % (Manual) Lymphocytes % (Manual) Monocytes % (Manual) Nucleated RBC % Seg Neutrophils # Seg Neutrophils # Man Lymphocytes # (Manual) Monocytes # (Manual) PT INR APTT ABG pH ABG pO2 ABG HCO3 ABG O2 Saturation ABG Base Excess ABG Hemoglobin Oxyhemoglobin Sodium Potassium Chloride Carbon Dioxide BUN Creatinine Glucose POC Glucose Calcium Phosphorus Magnesium Iron TIBC Ferritin Total Bilirubin Direct Bilirubin AST Alkaline Phosphatase Lactate Dehydrogenase Troponin T NT-Pro-B Natriuret Pep Serum Total Protein Total Protein Albumin Intsd-1-Fvqjetfff Gamma Globulins PEP Interpretation LDL Cholesterol Direct Vitamin B12 Folate Urine WBC (Auto) Urine Creatinine 104.2 H 106.2 H Urine Total Protein 173 H Fluid Glucose 93 H Fluid Total Protein 4.7 L Crossmatch 07/14/19 07/14/19 07/15/19 17:28 20:43 06:30 WBC RBC 3.06 L Hgb 9.9 L Hct 29.7 L MCV 97 H MCH 33 H RDW 19.5 H Plt Count 101 L Lymph % (Auto) [place] % (Auto) Baso % (Auto) Lymph # [place] # Baso # Seg Neutrophils % Seg Neuts % (Manual) Lymphocytes % (Manual) Monocytes % (Manual) Nucleated RBC % Seg Neutrophils # Seg Neutrophils # Man Lymphocytes # (Manual) Monocytes # (Manual) PT INR APTT ABG pH ABG pO2 ABG HCO3 ABG O2 Saturation ABG Base Excess ABG Hemoglobin Oxyhemoglobin Sodium Potassium Chloride Carbon Dioxide BUN Creatinine Glucose POC Glucose 120 H Calcium Phosphorus Magnesium Iron TIBC Ferritin Total Bilirubin Direct Bilirubin AST Alkaline Phosphatase Lactate Dehydrogenase Troponin T NT-Pro-B Natriuret Pep Serum Total Protein Total Protein Albumin Rnidj-9-Cecedcnrq Gamma Globulins PEP Interpretation LDL Cholesterol Direct Vitamin B12 Folate Urine WBC (Auto) 31.0 H Urine Creatinine Urine Total Protein Fluid Glucose Fluid Total Protein Crossmatch 07/15/19 07/15/19 07/15/19 06:30 06:30 06:30 WBC RBC Hgb Hct MCV MCH RDW Plt Count Lymph % (Auto) [place] % (Auto) Baso % (Auto) Lymph # [place] # Baso # Seg Neutrophils % Seg Neuts % (Manual) Lymphocytes % (Manual) Monocytes % (Manual) Nucleated RBC % Seg Neutrophils # Seg Neutrophils # Man Lymphocytes # (Manual) Monocytes # (Manual) PT INR APTT ABG pH ABG pO2 ABG HCO3 ABG O2 Saturation ABG Base Excess ABG Hemoglobin Oxyhemoglobin Sodium Potassium Chloride 95.2 L Carbon Dioxide BUN 42 H Creatinine 4.9 H Glucose POC Glucose Calcium Phosphorus Magnesium Iron 15 L TIBC 186 L Ferritin 428.2 H Total Bilirubin Direct Bilirubin AST 50 H Alkaline Phosphatase 191 H Lactate Dehydrogenase Troponin T NT-Pro-B Natriuret Pep Serum Total Protein Total Protein Albumin 3.1 L Xipag-7-Axkqxkxlt Gamma Globulins PEP Interpretation LDL Cholesterol Direct Vitamin B12 Folate Urine WBC (Auto) Urine Creatinine Urine Total Protein Fluid Glucose Fluid Total Protein Crossmatch 07/15/19 07/16/19 07/16/19 12:42 06:19 21:34 WBC RBC Hgb Hct MCV MCH RDW Plt Count Lymph % (Auto) [place] % (Auto) Baso % (Auto) Lymph # [place] # Baso # Seg Neutrophils % Seg Neuts % (Manual) Lymphocytes % (Manual) Monocytes % (Manual) Nucleated RBC % Seg Neutrophils # Seg Neutrophils # Man Lymphocytes # (Manual) Monocytes # (Manual) PT INR APTT ABG pH ABG pO2 ABG HCO3 ABG O2 Saturation ABG Base Excess ABG Hemoglobin Oxyhemoglobin Sodium 134 L 134 L Potassium Chloride 92.9 L 93.4 L Carbon Dioxide 20 L BUN 55 H 40 H Creatinine 5.6 H 4.4 H Glucose POC Glucose 140 H Calcium Phosphorus Magnesium Iron TIBC Ferritin Total Bilirubin Direct Bilirubin AST Alkaline Phosphatase Lactate Dehydrogenase Troponin T NT-Pro-B Natriuret Pep Serum Total Protein Total Protein Albumin Yixgi-7-Mbckbcxvw Gamma Globulins PEP Interpretation LDL Cholesterol Direct Vitamin B12 Folate Urine WBC (Auto) Urine Creatinine Urine Total Protein Fluid Glucose Fluid Total Protein Crossmatch 07/17/19 07/17/19 07/17/19 05:27 12:10 12:52 WBC RBC Hgb Hct MCV MCH RDW Plt Count Lymph % (Auto) [place] % (Auto) Baso % (Auto) Lymph # [place] # Baso # Seg Neutrophils % Seg Neuts % (Manual) Lymphocytes % (Manual) Monocytes % (Manual) Nucleated RBC % Seg Neutrophils # Seg Neutrophils # Man Lymphocytes # (Manual) Monocytes # (Manual) PT INR APTT ABG pH ABG pO2 ABG HCO3 ABG O2 Saturation ABG Base Excess ABG Hemoglobin Oxyhemoglobin Sodium 136 L Potassium Chloride 93.6 L Carbon Dioxide BUN 43 H Creatinine 4.8 H Glucose POC Glucose 122 H 122 H Calcium Phosphorus Magnesium Iron TIBC Ferritin Total Bilirubin Direct Bilirubin AST Alkaline Phosphatase Lactate Dehydrogenase Troponin T NT-Pro-B Natriuret Pep Serum Total Protein Total Protein Albumin Ccgzz-5-Ahwsyagwi Gamma Globulins PEP Interpretation LDL Cholesterol Direct Vitamin B12 Folate Urine WBC (Auto) Urine Creatinine Urine Total Protein Fluid Glucose Fluid Total Protein Crossmatch 07/17/19 07/18/19 07/18/19 13:50 04:20 05:40 WBC RBC Hgb Hct MCV MCH RDW Plt Count Lymph % (Auto) [place] % (Auto) Baso % (Auto) Lymph # [place] # Baso # Seg Neutrophils % Seg Neuts % (Manual) Lymphocytes % (Manual) Monocytes % (Manual) Nucleated RBC % Seg Neutrophils # Seg Neutrophils # Man Lymphocytes # (Manual) Monocytes # (Manual) PT INR APTT ABG pH 7.262 L ABG pO2 195.5 H 238.9 H ABG HCO3 ABG O2 Saturation 99.1 H 99.4 H ABG Base Excess -2.9 L ABG Hemoglobin 8.6 L 10.9 L Oxyhemoglobin Sodium Potassium Chloride 94.5 L Carbon Dioxide BUN 61 H Creatinine 5.6 H Glucose 111 H POC Glucose Calcium Phosphorus 4.70 H Magnesium Iron TIBC Ferritin Total Bilirubin Direct Bilirubin AST Alkaline Phosphatase Lactate Dehydrogenase 294 H Troponin T NT-Pro-B Natriuret Pep Serum Total Protein Total Protein Albumin Cmcrb-8-Kpfohwkzk Gamma Globulins PEP Interpretation LDL Cholesterol Direct Vitamin B12 Folate Urine WBC (Auto) Urine Creatinine Urine Total Protein Fluid Glucose Fluid Total Protein Crossmatch 07/18/19 07/18/19 07/18/19 05:40 05:40 10:30 WBC 22.7 H RBC 2.64 L Hgb 8.2 L Hct 24.9 L MCV 95 H MCH RDW 19.7 H Plt Count 94 L Lymph % (Auto) [place] % (Auto) Baso % (Auto) Lymph # [place] # Baso # Seg Neutrophils % Seg Neuts % (Manual) Lymphocytes % (Manual) Monocytes % (Manual) Nucleated RBC % Seg Neutrophils # Seg Neutrophils # Man Lymphocytes # (Manual) Monocytes # (Manual) PT INR APTT ABG pH 7.457 H ABG pO2 ABG HCO3 26.3 H ABG O2 Saturation ABG Base Excess ABG Hemoglobin 7.8 L Oxyhemoglobin 94.6 L Sodium Potassium Chloride Carbon Dioxide BUN Creatinine Glucose POC Glucose Calcium Phosphorus Magnesium Iron TIBC Ferritin Total Bilirubin Direct Bilirubin 0.7 H AST 94 H Alkaline Phosphatase 159 H Lactate Dehydrogenase Troponin T NT-Pro-B Natriuret Pep Serum Total Protein Total Protein 5.6 L D Albumin 2.5 L Kgssw-5-Ghlacckhy Gamma Globulins PEP Interpretation LDL Cholesterol Direct Vitamin B12 Folate Urine WBC (Auto) Urine Creatinine Urine Total Protein Fluid Glucose Fluid Total Protein Crossmatch 07/18/19 07/19/19 07/19/19 Unknown 05:15 05:15 WBC RBC Hgb Hct MCV MCH RDW Plt Count Lymph % (Auto) [place] % (Auto) Baso % (Auto) Lymph # [place] # Baso # Seg Neutrophils % Seg Neuts % (Manual) Lymphocytes % (Manual) Monocytes % (Manual) Nucleated RBC % Seg Neutrophils # Seg Neutrophils # Man Lymphocytes # (Manual) Monocytes # (Manual) PT INR APTT ABG pH ABG pO2 ABG HCO3 ABG O2 Saturation ABG Base Excess ABG Hemoglobin 11.6 L Oxyhemoglobin 94.3 L Sodium 133 L Potassium Chloride 94.9 L Carbon Dioxide BUN 43 H Creatinine 4.0 H Glucose 118 H POC Glucose Calcium Phosphorus Magnesium 0.20 L* Iron TIBC Ferritin Total Bilirubin Direct Bilirubin AST Alkaline Phosphatase Lactate Dehydrogenase Troponin T NT-Pro-B Natriuret Pep Serum Total Protein Total Protein Albumin Fvtbp-3-Lcggjvjlg Gamma Globulins PEP Interpretation LDL Cholesterol Direct Vitamin B12 Folate Urine WBC (Auto) Urine Creatinine Urine Total Protein Fluid Glucose Fluid Total Protein Crossmatch 07/19/19 07/19/19 07/20/19 05:15 06:00 06:15 WBC 14.6 H RBC 2.57 L Hgb 8.2 L Hct 24.3 L MCV 95 H MCH RDW 19.5 H Plt Count 101 L Lymph % (Auto) [place] % (Auto) Baso % (Auto) Lymph # [place] # Baso # Seg Neutrophils % Seg Neuts % (Manual) Lymphocytes % (Manual) Monocytes % (Manual) Nucleated RBC % Seg Neutrophils # Seg Neutrophils # Man Lymphocytes # (Manual) Monocytes # (Manual) PT INR APTT ABG pH ABG pO2 91.2 H ABG HCO3 27.5 H ABG O2 Saturation ABG Base Excess ABG Hemoglobin 8.3 L Oxyhemoglobin Sodium Potassium Chloride Carbon Dioxide BUN 61 H Creatinine 4.6 H Glucose 117 H POC Glucose Calcium Phosphorus Magnesium Iron TIBC Ferritin Total Bilirubin Direct Bilirubin AST Alkaline Phosphatase Lactate Dehydrogenase Troponin T NT-Pro-B Natriuret Pep Serum Total Protein Total Protein Albumin Gafbd-6-Dxjdjitmh Gamma Globulins PEP Interpretation LDL Cholesterol Direct Vitamin B12 Folate Urine WBC (Auto) Urine Creatinine Urine Total Protein Fluid Glucose Fluid Total Protein Crossmatch 07/21/19 07/21/19 07/21/19 05:30 06:15 06:15 WBC 11.8 H RBC 2.45 L Hgb 7.9 L Hct 23.5 L MCV 96 H MCH RDW 19.4 H Plt Count Lymph % (Auto) [place] % (Auto) Baso % (Auto) Lymph # [place] # Baso # Seg Neutrophils % Seg Neuts % (Manual) Lymphocytes % (Manual) Monocytes % (Manual) Nucleated RBC % Seg Neutrophils # Seg Neutrophils # Man Lymphocytes # (Manual) Monocytes # (Manual) PT INR APTT ABG pH ABG pO2 104.5 H ABG HCO3 27.9 H ABG O2 Saturation ABG Base Excess 3.3 H ABG Hemoglobin 8.2 L Oxyhemoglobin Sodium Potassium 3.3 L Chloride Carbon Dioxide BUN 74 H Creatinine 4.3 H Glucose 127 H POC Glucose Calcium Phosphorus Magnesium Iron TIBC Ferritin Total Bilirubin Direct Bilirubin AST Alkaline Phosphatase Lactate Dehydrogenase Troponin T NT-Pro-B Natriuret Pep Serum Total Protein Total Protein Albumin Jswyy-8-Qslguierm Gamma Globulins PEP Interpretation LDL Cholesterol Direct Vitamin B12 Folate Urine WBC (Auto) Urine Creatinine Urine Total Protein Fluid Glucose Fluid Total Protein Crossmatch 07/21/19 07/21/19 07/21/19 08:00 08:00 17:51 WBC RBC Hgb Hct MCV MCH RDW Plt Count Lymph % (Auto) [place] % (Auto) Baso % (Auto) Lymph # [place] # Baso # Seg Neutrophils % Seg Neuts % (Manual) Lymphocytes % (Manual) Monocytes % (Manual) Nucleated RBC % Seg Neutrophils # Seg Neutrophils # Man Lymphocytes # (Manual) Monocytes # (Manual) PT INR APTT ABG pH ABG pO2 ABG HCO3 ABG O2 Saturation ABG Base Excess ABG Hemoglobin Oxyhemoglobin Sodium Potassium 3.2 L Chloride Carbon Dioxide BUN Creatinine Glucose POC Glucose Calcium Phosphorus Magnesium Iron TIBC Ferritin Total Bilirubin Direct Bilirubin AST Alkaline Phosphatase Lactate Dehydrogenase Troponin T NT-Pro-B Natriuret Pep Serum Total Protein Total Protein Albumin Crynn-3-Zsrzudyzk Gamma Globulins PEP Interpretation LDL Cholesterol Direct Vitamin B12 960.4 H Folate 6.18 L Urine WBC (Auto) Urine Creatinine Urine Total Protein Fluid Glucose Fluid Total Protein Crossmatch 07/22/19 07/22/19 07/22/19 03:40 06:00 21:45 WBC 12.6 H RBC 2.54 L Hgb 7.8 L Hct 24.2 L MCV 95 H MCH RDW 19.7 H Plt Count Lymph % (Auto) [place] % (Auto) Baso % (Auto) Lymph # [place] # Baso # Seg Neutrophils % Seg Neuts % (Manual) Lymphocytes % (Manual) Monocytes % (Manual) Nucleated RBC % Seg Neutrophils # Seg Neutrophils # Man Lymphocytes # (Manual) Monocytes # (Manual) PT INR APTT ABG pH ABG pO2 99.4 H ABG HCO3 27.3 H ABG O2 Saturation ABG Base Excess ABG Hemoglobin 9.2 L Oxyhemoglobin Sodium Potassium 3.1 L Chloride Carbon Dioxide BUN 75 H Creatinine 2.9 H Glucose 123 H POC Glucose Calcium Phosphorus Magnesium Iron TIBC Ferritin Total Bilirubin Direct Bilirubin AST Alkaline Phosphatase Lactate Dehydrogenase Troponin T NT-Pro-B Natriuret Pep Serum Total Protein Total Protein Albumin Srwmg-9-Kesennvgv Gamma Globulins PEP Interpretation LDL Cholesterol Direct Vitamin B12 Folate Urine WBC (Auto) Urine Creatinine Urine Total Protein Fluid Glucose Fluid Total Protein Crossmatch 07/23/19 07/23/19 07/24/19 05:30 05:30 04:12 WBC RBC Hgb Hct MCV MCH RDW Plt Count Lymph % (Auto) [place] % (Auto) Baso % (Auto) Lymph # [place] # Baso # Seg Neutrophils % Seg Neuts % (Manual) Lymphocytes % (Manual) Monocytes % (Manual) Nucleated RBC % Seg Neutrophils # Seg Neutrophils # Man Lymphocytes # (Manual) Monocytes # (Manual) PT INR APTT ABG pH ABG pO2 123.1 H ABG HCO3 27.1 H ABG O2 Saturation ABG Base Excess ABG Hemoglobin 9.3 L Oxyhemoglobin Sodium Potassium 3.1 L Chloride Carbon Dioxide BUN 80 H Creatinine 2.6 H Glucose 112 H POC Glucose Calcium Phosphorus Magnesium Iron TIBC Ferritin Total Bilirubin Direct Bilirubin AST Alkaline Phosphatase Lactate Dehydrogenase Troponin T NT-Pro-B Natriuret Pep Serum Total Protein 5.9 L Total Protein Albumin 2.2 L Xcmdk-9-Ifnrvtvgg 0.5 H Gamma Globulins 2.0 H PEP Interpretation see below H LDL Cholesterol Direct Vitamin B12 Folate Urine WBC (Auto) Urine Creatinine Urine Total Protein Fluid Glucose Fluid Total Protein Crossmatch 07/24/19 07/24/19 07/25/19 07:03 07:03 04:05 WBC RBC Hgb Hct MCV MCH RDW Plt Count Lymph % (Auto) [place] % (Auto) Baso % (Auto) Lymph # [place] # Baso # Seg Neutrophils % Seg Neuts % (Manual) Lymphocytes % (Manual) Monocytes % (Manual) Nucleated RBC % Seg Neutrophils # Seg Neutrophils # Man Lymphocytes # (Manual) Monocytes # (Manual) PT INR APTT ABG pH ABG pO2 ABG HCO3 ABG O2 Saturation ABG Base Excess ABG Hemoglobin Oxyhemoglobin Sodium 147 H Potassium 3.4 L Chloride 107.5 H 110.1 H Carbon Dioxide BUN 70 H 62 H Creatinine 1.8 H Glucose 112 H 115 H POC Glucose Calcium Phosphorus Magnesium 1.50 L Iron TIBC Ferritin Total Bilirubin Direct Bilirubin AST Alkaline Phosphatase Lactate Dehydrogenase Troponin T NT-Pro-B Natriuret Pep Serum Total Protein Total Protein Albumin Muvlp-1-Kcauttdio Gamma Globulins PEP Interpretation LDL Cholesterol Direct Vitamin B12 Folate Urine WBC (Auto) Urine Creatinine Urine Total Protein Fluid Glucose Fluid Total Protein Crossmatch 07/25/19 07/25/19 07/26/19 04:05 05:27 04:47 WBC 11.4 H RBC 2.39 L Hgb 7.5 L Hct 23.0 L MCV 96 H MCH RDW 19.4 H Plt Count Lymph % (Auto) [place] % (Auto) Baso % (Auto) Lymph # [place] # Baso # Seg Neutrophils % Seg Neuts % (Manual) 76.0 H Lymphocytes % (Manual) 9.0 L Monocytes % (Manual) 11.0 H Nucleated RBC % Seg Neutrophils # Seg Neutrophils # Man 8.7 H Lymphocytes # (Manual) 1.0 L Monocytes # (Manual) 1.3 H PT INR APTT ABG pH 7.457 H ABG pO2 75.5 L ABG HCO3 27.2 H ABG O2 Saturation ABG Base Excess 3.1 H ABG Hemoglobin 7.0 L Oxyhemoglobin 94.4 L Sodium 147 H Potassium Chloride 111.5 H Carbon Dioxide BUN 57 H Creatinine Glucose 121 H POC Glucose Calcium Phosphorus Magnesium Iron TIBC Ferritin Total Bilirubin Direct Bilirubin AST Alkaline Phosphatase Lactate Dehydrogenase Troponin T NT-Pro-B Natriuret Pep Serum Total Protein Total Protein Albumin Krapd-1-[id number] Gamma Globulins PEP Interpretation LDL Cholesterol Direct Vitamin B12 Folate Urine WBC (Auto) Urine Creatinine Urine Total Protein Fluid Glucose Fluid Total Protein Crossmatch 07/26/19 07/27/19 07/27/19 04:47 01:17 05:55 WBC RBC Hgb Hct MCV MCH RDW Plt Count Lymph % (Auto) [place] % (Auto) Baso % (Auto) Lymph # [place] # Baso # Seg Neutrophils % Seg Neuts % (Manual) Lymphocytes % (Manual) Monocytes % (Manual) Nucleated RBC % Seg Neutrophils # Seg Neutrophils # Man Lymphocytes # (Manual) Monocytes # (Manual) PT INR APTT ABG pH ABG pO2 ABG HCO3 ABG O2 Saturation ABG Base Excess ABG Hemoglobin Oxyhemoglobin Sodium 147 H Potassium Chloride 109.6 H Carbon Dioxide BUN 43 H Creatinine Glucose 113 H POC Glucose 122 H Calcium Phosphorus Magnesium 1.50 L Iron TIBC Ferritin Total Bilirubin Direct Bilirubin AST Alkaline Phosphatase Lactate Dehydrogenase Troponin T NT-Pro-B Natriuret Pep Serum Total Protein Total Protein Albumin Wvfto-4-Isncmvgdr Gamma Globulins PEP Interpretation LDL Cholesterol Direct Vitamin B12 Folate Urine WBC (Auto) Urine Creatinine Urine Total Protein Fluid Glucose Fluid Total Protein Crossmatch 07/28/19 07/28/19 07/28/19 08:06 12:29 13:31 WBC 11.3 H RBC 2.16 L Hgb 6.7 L Hct 20.9 L MCV 97 H MCH RDW 19.0 H Plt Count Lymph % (Auto) [place] % (Auto) Baso % (Auto) Lymph # [place] # Baso # Seg Neutrophils % Seg Neuts % (Manual) Lymphocytes % (Manual) Monocytes % (Manual) Nucleated RBC % Seg Neutrophils # Seg Neutrophils # Man Lymphocytes # (Manual) Monocytes # (Manual) PT 21.4 H INR 1.82 H APTT ABG pH ABG pO2 ABG HCO3 ABG O2 Saturation ABG Base Excess ABG Hemoglobin Oxyhemoglobin Sodium 147 H Potassium Chloride 111.0 H Carbon Dioxide BUN 35 H Creatinine Glucose 119 H POC Glucose Calcium Phosphorus Magnesium 1.50 L Iron TIBC Ferritin Total Bilirubin Direct Bilirubin AST Alkaline Phosphatase Lactate Dehydrogenase Troponin T NT-Pro-B Natriuret Pep Serum Total Protein Total Protein Albumin Iptrf-2-Jsdhddebh Gamma Globulins PEP Interpretation LDL Cholesterol Direct Vitamin B12 Folate Urine WBC (Auto) Urine Creatinine Urine Total Protein Fluid Glucose Fluid Total Protein Crossmatch 07/28/19 07/29/19 07/29/19 16:44 04:45 04:45 WBC RBC Hgb Hct MCV MCH RDW Plt Count Lymph % (Auto) [place] % (Auto) Baso % (Auto) Lymph # [place] # Baso # Seg Neutrophils % Seg Neuts % (Manual) Lymphocytes % (Manual) Monocytes % (Manual) Nucleated RBC % Seg Neutrophils # Seg Neutrophils # Man Lymphocytes # (Manual) Monocytes # (Manual) PT 20.2 H INR 1.69 H APTT ABG pH ABG pO2 ABG HCO3 ABG O2 Saturation ABG Base Excess ABG Hemoglobin Oxyhemoglobin Sodium 148 H Potassium Chloride 111.8 H Carbon Dioxide BUN 29 H Creatinine Glucose 104 H POC Glucose Calcium Phosphorus Magnesium Iron TIBC Ferritin Total Bilirubin Direct Bilirubin AST Alkaline Phosphatase Lactate Dehydrogenase Troponin T NT-Pro-B Natriuret Pep Serum Total Protein Total Protein Albumin Fpabx-1-Kugagkkiq Gamma Globulins PEP Interpretation LDL Cholesterol Direct Vitamin B12 Folate Urine WBC (Auto) Urine Creatinine Urine Total Protein Fluid Glucose Fluid Total Protein Crossmatch See Detail 07/29/19 07/30/19 07/30/19 10:06 04:56 04:56 WBC RBC 2.40 L Hgb 7.3 L Hct 22.8 L MCV 95 H MCH RDW 21.2 H Plt Count Lymph % (Auto) 11.0 L [place] % (Auto) 11.1 H Baso % (Auto) 2.3 H Lymph # 1.0 L [place] # 1.1 H Baso # 0.2 H Seg Neutrophils % 72.7 H Seg Neuts % (Manual) Lymphocytes % (Manual) Monocytes % (Manual) Nucleated RBC % Seg Neutrophils # Seg Neutrophils # Man Lymphocytes # (Manual) Monocytes # (Manual) PT 20.0 H INR 1.67 H APTT ABG pH ABG pO2 ABG HCO3 ABG O2 Saturation ABG Base Excess ABG Hemoglobin Oxyhemoglobin Sodium Potassium Chloride Carbon Dioxide BUN Creatinine Glucose POC Glucose Calcium Phosphorus Magnesium 1.50 L Iron TIBC Ferritin Total Bilirubin Direct Bilirubin AST Alkaline Phosphatase Lactate Dehydrogenase Troponin T NT-Pro-B Natriuret Pep Serum Total Protein Total Protein Albumin Mrhke-4-Mogxwjjof Gamma Globulins PEP Interpretation LDL Cholesterol Direct Vitamin B12 Folate Urine WBC (Auto) Urine Creatinine Urine Total Protein Fluid Glucose Fluid Total Protein Crossmatch 07/31/19 07/31/19 07/31/19 04:53 04:53 09:46 WBC 12.8 H RBC 2.45 L Hgb 7.4 L 7.1 L Hct 23.4 L 22.0 L MCV 95 H MCH RDW 20.2 H Plt Count Lymph % (Auto) 6.6 L [place] % (Auto) 8.1 H Baso % (Auto) Lymph # 0.8 L [place] # 1.0 H Baso # Seg Neutrophils % 81.6 H Seg Neuts % (Manual) Lymphocytes % (Manual) Monocytes % (Manual) Nucleated RBC % Seg Neutrophils # 10.4 H Seg Neutrophils # Man Lymphocytes # (Manual) Monocytes # (Manual) PT 20.2 H INR 1.69 H APTT ABG pH ABG pO2 ABG HCO3 ABG O2 Saturation ABG Base Excess ABG Hemoglobin Oxyhemoglobin Sodium Potassium Chloride Carbon Dioxide BUN Creatinine Glucose POC Glucose Calcium Phosphorus Magnesium Iron TIBC Ferritin Total Bilirubin Direct Bilirubin AST Alkaline Phosphatase Lactate Dehydrogenase Troponin T NT-Pro-B Natriuret Pep Serum Total Protein Total Protein Albumin Mtume-3-Btczfpfth Gamma Globulins PEP Interpretation LDL Cholesterol Direct Vitamin B12 Folate Urine WBC (Auto) Urine Creatinine Urine Total Protein Fluid Glucose Fluid Total Protein Crossmatch 08/01/19 08/01/19 08/01/19 05:21 05:21 08:25 WBC 17.0 H RBC 2.12 L Hgb 6.5 L Hct 20.4 L MCV 96 H MCH RDW 20.2 H Plt Count Lymph % (Auto) 6.0 L [place] % (Auto) 8.4 H Baso % (Auto) Lymph # 1.0 L [place] # 1.4 H Baso # Seg Neutrophils % 82.6 H Seg Neuts % (Manual) Lymphocytes % (Manual) Monocytes % (Manual) Nucleated RBC % Seg Neutrophils # 14.0 H Seg Neutrophils # Man Lymphocytes # (Manual) Monocytes # (Manual) PT INR APTT ABG pH ABG pO2 ABG HCO3 ABG O2 Saturation ABG Base Excess ABG Hemoglobin Oxyhemoglobin Sodium 146 H Potassium Chloride 110.8 H Carbon Dioxide BUN 23 H Creatinine Glucose 118 H POC Glucose Calcium 8.3 L Phosphorus Magnesium 1.50 L Iron TIBC Ferritin Total Bilirubin Direct Bilirubin AST Alkaline Phosphatase 179 H Lactate Dehydrogenase Troponin T NT-Pro-B Natriuret Pep Serum Total Protein Total Protein Albumin 2.4 L Xdmvf-3-Kdiiatnvm Gamma Globulins PEP Interpretation LDL Cholesterol Direct Vitamin B12 Folate Urine WBC (Auto) Urine Creatinine Urine Total Protein Fluid Glucose Fluid Total Protein Crossmatch See Detail
[2019-08-01] MEDS ORDERED: MAGNESIUM OXIDE 400 MG TAB PO SCH (10:00)
[2019-08-01] MEDS: ACETAMINOPHEN 325 MG/10.15 ML ORAL LIQD UNIT DOSE FEEDTUBE PRN (10:13)
--- NOTE | 2019-08-01 11:27 | Progress Note ---
Assessment and Plan Cultures: 07/12/2019 blood culture: Negative 07/14/2019 urine culture: mixed growth 07/17/2019 tracheal aspirate: E coli 07/28/2019 urine culture: pending 07/28/2019 blood culture: pending A/P: 48/M with deafness, HTN, CHF, anxiety, depression, COPD was admitted to the hospital on 07/12/2019 with shortness of breath, found to have hypoxia and renal failure and was started on urgent dialysis, now with: #Shock, following PEA cardiac arrest #Bilateral multifocal pneumonia, acute respiratory failure: Possibly aspiration v/s lung contusion from CPR following cardiac arrest. #Acute renal failure: Dialysis requiring. Nephrology following, evaluating for glomerulonephritis and vasculitis. Patient also has rare schistocytes in peripheral blood along with few eosinophils in urine. Renally dose abx. #CHF #Leukocytosis: reactive now, likely secondary to seizure. Monitor to ensure it falls. Recs: -Remain off antibiotics for now - follow up fever and WBC - possible central fevers - Poor prognosis. - leery of empiric antibiotics in this patient given severe medical comorbidities and poor prognosis. - procalcitonin significantly improved, though not normal. Repeat cultures no growth. CXR improved. Despite persistent fevers, do not recommend empiric antibiotics. Will follow. Dr. Downing covering this weekend. Salo Morgan MD [facility] M: [phone] O: [phone] F: [phone] Subjective Date of service: 08/01/19 Principal diagnosis: anemia Interval history: Febrile to 101.1. White count now. 17. Nursing notes a witnessed seizure yesterday. Objective - Exam Narrative Exam: Constitutional: non-responsive. Trach/PEG Head, Ears, Nose: Trach Cardiovascular: S1, S2 normal. Respiratory: Good air entry, clear to auscultation bilaterally GI: Soft, non-tender; bowel sounds +PEG Musculoskeletal: No pedal edema, no cyanosis. Skin: No rash or abscess Hem/Lymphatic: No palpable cervical or supraclavicular nodes. No lymphangitis Psych: Non-responsive. Neurological: Non-responsive - Constitutional Vitals: Vital Signs Temp Pulse Resp BP Pulse Ox 100.1 F H 84 20 126/65 99 08/01/19 10:50 08/01/19 11:00 08/01/19 10:00 08/01/19 11:00 08/01/19 11:00 Temperature -Last 24 Hours Temperature 100.1 F Temperature 101.1 F Temperature 100.4 F Temperature 100.4 F Temperature 101.3 F Temperature 99.2 F Temperature 98.7 F - Labs CBC & Chem 7: 08/01/19 05:21 08/01/19 05:21 Labs: Abnormal lab results 08/01/19 08/01/19 08/01/19 Range/Units 05:21 05:21 08:25 WBC 17.0 H (4.5-11.0) K/mm3 RBC 2.12 L (3.65-5.03) M/mm3 Hgb 6.5 L (11.8-15.2) gm/dl Hct 20.4 L (35.5-45.6) % MCV 96 H (84-94) fl RDW 20.2 H (13.2-15.2) % Lymph % (Auto) 6.0 L (13.4-35.0) % [place] % (Auto) 8.4 H (0.0-7.3) % Lymph # 1.0 L (1.2-5.4) K/mm3 [place] # 1.4 H (0.0-0.8) K/mm3 Seg Neutrophils % 82.6 H (40.0-70.0) % Seg Neutrophils # 14.0 H (1.8-7.7) K/mm3 Sodium 146 H (137-145) mmol/L Chloride 110.8 H (98-107) mmol/L BUN 23 H (9-20) mg/dL Glucose 118 H (75-100) mg/dL Calcium 8.3 L (8.4-10.2) mg/dL Magnesium 1.50 L (1.7-2.3) mg/dL Alkaline Phosphatase 179 H (35-129) units/L Albumin 2.4 L (3.9-5) g/dL Crossmatch See Detail
--- NOTE | 2019-08-01 15:27 | Electroencephalogram Report ---
Electroencephalogram EEG Date of exam: 08/01/19 History: Patient is a 48-year-old man with a history of deafness, hypertension, CHF, anxiety, depression, COPD, GERD, history of alcohol abuse, who presented with shortness of breath on July 12, was found to have left lower lobe pneumonia, acute respiratory failure, uremia, hyponatremia, and metabolic acidosis. Patient went into cardiac arrest on July 18, and ultimately returned to spontaneous circulation. Impression: 1. 2 electrographic seizures were noted during the recording of the EEG, lasting approximately 2 minutes each. This was followed by attenuation of background with generalized slowing. Description: At the start of the EEG recording, patient was noted to have generalized high amplitudes bike and polyspike activity lasting approximately 2 minutes followed by pause and then another episode lasting also approximately 2 minutes. This was followed by attenuation of the background and slowing, to about 4 Hz background rhythm. This is consistent with a possible generalized seizure. Propofol has been stopped prior to recording of EEG, and approximately after 15- minute christian, propofol was restarted after the first 2 seizure-like events. After propofol was restarted, there were no more events noted on EEG, and there was generalized slowing noted throughout, with background activity of 3 to 4 Hz delta activity with an amplitude ranging 20 to 30 V. Additional low voltage beta activity occurred symmetrically at the anterior head regions bilaterally. Intermittent photic stimulation was not performed. Hyperventilation was not performed. Interpretation: This routine EEG is abnormal secondary to above findings and is consistent with bihemispheric dysfunction and encephalopathy. The above findings described finding of diffuse slowing is etiologically nonspecific and similar findings have been reported cases of toxic, metabolic, hypoxic ischemic, infectious, medication, sleep deprivation, dementia, postictal state, and other causes of diffuse and multifocal encephalopathy. 2 electrographic seizures were noted during the EEG recording, lasting approximately 2 minutes each. 1 of the seizures was clinically correlated with facial twitching.
--- NOTE | 2019-08-01 15:39 | Progress Note ---
Assessment and Plan Patient is a 48-year-old man with a history of deafness, hypertension, CHF, anxiety, depression, COPD, GERD, history of alcohol abuse, who presented with shortness of breath on July 12, was found to have left lower lobe pneumonia, acute respiratory failure, uremia, hyponatremia, and metabolic acidosis. Patient went into cardiac arrest on July 18, and ultimately returned to spontaneous circulation. According the patient's clinical findings, it is likely that he has anoxic brain injury as well as metabolic encephalopathy. The patient was also found to have an acute to subacute infarct on MRI. Plan: 1. Stroke: - MRI brain: subacute infarct in right posterior temporal white matter - CUS: no significant stenosis - MRA head: no significant stenosis - Echo: EF 50-55%, LA normal size - As patient was found to have PAF, would recommend for patient to be anticoagulated. Ok to start anti-coagulation now from neurologic perspective, as risk of hemorrhagic trnasformation is low given size of infarct. Timing of starting anti-coagulation to be decided per primary and surgery teams, as patient is status post recent trach and PEG. - Cont. statin. LDL goal <70 - Telemetry monitoring while in house - PT/OT/ST - DVT Ppx: Recommend lovenox 2. Hypertension: - Recommend BP goal of normotension. 3. Anoxic brain injury/metabolic encephalopathy: - Patient had cardiac arrest x2 on 07/18/2019 - EEG on 07/22/2019: Generalized slowing. No seizures or epileptiform activity. - Brain stem reflexes intact, therefore not clinically brain . - Discussed with family regarding prognosis. Patient s/p Trach/PEG. - Continue to correct metabolic/infectious abnormalities per primary/ICU teams. 4. Seizures: - Patient noted to have seizure-like events yesterday and today. Patient was started on propofol infusion after seizure-like events. Started on Keppra 1000 mg twice a day yesterday. -EEG 08/01/2019: EEG was performed after propofol was held. Noted to have 2 electrographic seizure-like events during EEG recording, lasting approximately 2 minutes each. This was followed by attenuation of the background with generalized slowing. -We will check CT head. -Increase Keppra to 2000 mg twice a day. -Of note, during the EEG recording, propofol was restarted, and no more electrographic seizures were noted once propofol was restarted. -Given that patient may be having frequent seizures, with possible status epilepticus, I have initiated transfer of patient to [place], as he will require continuous EEG monitoring. -If patient continues to have seizure-like events, recommend adding second antiseizure medication. -Plan was discussed with primary attending. -Will sign off, as I am not covering neurology service over the weekend. Please consult neurologist covering the service over the weekend for further neurologic monitoring and management. Thank you for allowing me to take part in the care of this patient. Josue Alejandra MD Neurology Subjective Date of service: 08/01/19 Principal diagnosis: Anoxic brain injury, seizures Interval history: Since patient was last seen, patient reportedly developed seizures yesterday. He is also been febrile overnight, and has been noted to have elevated white blood cell count. Objective - Exam Narrative Exam: Patient comatose, intubated. PERRL, corneal, VOR and cough reflexes intact. W/d to pain in RUE only. 2+ reflexes throughout. - Vital Sign Vital Signs - 12hr 08/01/19 08/01/19 08/01/19 03:45 04:00 04:15 Temperature Pulse Rate 87 86 86 Pulse Rate [ 90 From Monitor] Respiratory 22 27 H 17 Rate Respiratory Rate [Left Ankle] Blood Pressure 137/70 120/61 120/61 O2 Sat by Pulse 100 100 100 Oximetry 08/01/19 08/01/19 08/01/19 04:30 04:45 05:00 Temperature Pulse Rate 85 82 84 Pulse Rate [ From Monitor] Respiratory 18 20 30 H Rate Respiratory Rate [Left Ankle] Blood Pressure 126/62 126/62 126/68 O2 Sat by Pulse 100 100 100 Oximetry 08/01/19 08/01/19 08/01/19 05:15 05:30 05:45 Temperature Pulse Rate 84 84 84 Pulse Rate [ From Monitor] Respiratory 18 17 18 Rate Respiratory Rate [Left Ankle] Blood Pressure 126/68 133/68 133/68 O2 Sat by Pulse 100 100 100 Oximetry 08/01/19 08/01/19 08/01/19 06:00 06:15 06:30 Temperature Pulse Rate 82 85 83 Pulse Rate [ From Monitor] Respiratory 16 23 20 Rate Respiratory Rate [Left Ankle] Blood Pressure 134/69 134/69 144/71 O2 Sat by Pulse 100 100 100 Oximetry 08/01/19 08/01/19 08/01/19 06:45 07:00 07:15 Temperature Pulse Rate 85 85 84 Pulse Rate [ From Monitor] Respiratory 20 19 20 Rate Respiratory Rate [Left Ankle] Blood Pressure 144/71 136/70 136/70 O2 Sat by Pulse 100 100 100 Oximetry 08/01/19 08/01/19 08/01/19 07:30 07:45 08:00 Temperature 100.4 F H Pulse Rate 87 87 83 Pulse Rate [ 90 From Monitor] Respiratory 21 23 24 Rate Respiratory Rate [Left Ankle] Blood Pressure 136/70 133/77 O2 Sat by Pulse 100 100 100 Oximetry 08/01/19 08/01/19 08/01/19 08:07 08:15 08:30 Temperature Pulse Rate 83 86 85 Pulse Rate [ From Monitor] Respiratory 21 26 H Rate Respiratory Rate [Left Ankle] Blood Pressure 133/77 133/77 132/66 O2 Sat by Pulse 100 100 100 Oximetry 08/01/19 08/01/19 08/01/19 08:45 09:00 09:08 Temperature Pulse Rate 85 84 86 Pulse Rate [ From Monitor] Respiratory 22 33 H Rate Respiratory Rate [Left Ankle] Blood Pressure 132/66 138/72 158/63 O2 Sat by Pulse 100 100 Oximetry 08/01/19 08/01/19 08/01/19 09:15 09:30 09:45 Temperature Pulse Rate 86 83 85 Pulse Rate [ From Monitor] Respiratory 27 H 13 23 Rate Respiratory Rate [Left Ankle] Blood Pressure 138/72 146/74 146/74 O2 Sat by Pulse 99 100 100 Oximetry 08/01/19 08/01/19 08/01/19 09:53 10:00 10:15 Temperature 101.1 F H Pulse Rate 85 91 H 90 Pulse Rate [ From Monitor] Respiratory 20 14 Rate Respiratory Rate [Left Ankle] Blood Pressure 146/74 124/72 124/72 O2 Sat by Pulse 100 100 Oximetry 08/01/19 08/01/19 08/01/19 10:30 10:45 10:50 Temperature 100.1 F H Pulse Rate 89 91 H Pulse Rate [ From Monitor] Respiratory 18 12 Rate Respiratory Rate [Left Ankle] Blood Pressure 137/71 137/71 O2 Sat by Pulse 100 100 Oximetry 08/01/19 08/01/19 08/01/19 11:00 11:15 11:30 Temperature Pulse Rate 85 93 H 84 Pulse Rate [ From Monitor] Respiratory 22 26 H 29 H Rate Respiratory Rate [Left Ankle] Blood Pressure 126/65 126/65 136/72 O2 Sat by Pulse 100 99 100 Oximetry 08/01/19 08/01/19 08/01/19 11:45 12:00 12:15 Temperature 100.3 F H Pulse Rate 82 82 75 Pulse Rate [ 90 From Monitor] Respiratory 21 23 21 Rate Respiratory Rate [Left Ankle] Blood Pressure 136/72 138/71 138/71 O2 Sat by Pulse 99 100 99 Oximetry 08/01/19 08/01/19 08/01/19 12:30 12:35 12:45 Temperature Pulse Rate 90 79 Pulse Rate [ From Monitor] Respiratory 15 19 Rate Respiratory 24 Rate [Left Ankle] Blood Pressure 148/79 138/71 O2 Sat by Pulse 100 99 Oximetry 08/01/19 08/01/19 08/01/19 13:00 13:15 13:30 Temperature Pulse Rate 79 79 79 Pulse Rate [ From Monitor] Respiratory 25 H 22 18 Rate Respiratory Rate [Left Ankle] Blood Pressure 125/66 128/67 132/71 O2 Sat by Pulse 100 100 100 Oximetry 08/01/19 08/01/19 08/01/19 13:45 14:00 14:15 Temperature Pulse Rate 97 H 79 77 Pulse Rate [ From Monitor] Respiratory 14 16 18 Rate Respiratory Rate [Left Ankle] Blood Pressure 132/71 143/77 141/76 O2 Sat by Pulse 100 100 100 Oximetry 08/01/19 08/01/19 08/01/19 14:30 14:45 15:00 Temperature Pulse Rate 75 76 73 Pulse Rate [ From Monitor] Respiratory 11 L 17 16 Rate Respiratory Rate [Left Ankle] Blood Pressure 144/78 151/82 143/73 O2 Sat by Pulse 100 100 100 Oximetry 08/01/19 08/01/19 08/01/19 15:06 15:15 15:19 Temperature 99.8 F H Pulse Rate 97 H 101 H 99 H Pulse Rate [ From Monitor] Respiratory 25 H 22 Rate Respiratory Rate [Left Ankle] Blood Pressure 143/73 137/79 137/79 O2 Sat by Pulse 100 100 Oximetry - General Apperance Constitutional: acutely ill - EENT EENT: ATNC, PERRL, mucous membranes moist - Respiratory Respiratory: decreased breath sounds - Cardiovascular Cardiovascular: regular rate, normal S1, normal S2 Extremities: no clubbing, cyanosis - Gastrointestinal Gastrointestinal: normoactive bowel sounds, soft, non-tender - Laboratory Findings CBC and BMP: 08/01/19 05:21 08/01/19 05:21 Abnormal Lab Findings: Abnormal Labs 07/12/19 07/12/19 07/12/19 14:46 15:08 15:08 WBC 14.7 H RBC 2.97 L Hgb 9.7 L Hct 29.0 L MCV 98 H MCH 33 H RDW 19.8 H Plt Count 124 L Lymph % (Auto) O'Brien % (Auto) Baso % (Auto) Lymph # O'Brien # Baso # Seg Neutrophils % Seg Neuts % (Manual) 91.0 H Lymphocytes % (Manual) 2.0 L Monocytes % (Manual) Nucleated RBC % 1.0 H Seg Neutrophils # Seg Neutrophils # Man 13.4 H Lymphocytes # (Manual) 0.3 L Monocytes # (Manual) PT 19.8 H INR 1.65 H APTT 47.8 H ABG pH ABG pO2 ABG HCO3 ABG O2 Saturation ABG Base Excess ABG Hemoglobin Oxyhemoglobin Sodium Potassium Chloride Carbon Dioxide BUN Creatinine Glucose POC Glucose 110 H Calcium Phosphorus Magnesium Iron TIBC Ferritin Total Bilirubin Direct Bilirubin AST Alkaline Phosphatase Lactate Dehydrogenase Troponin T NT-Pro-B Natriuret Pep Serum Total Protein Total Protein Albumin Gwpya-7-Nyhmlplkj Gamma Globulins PEP Interpretation LDL Cholesterol Direct Vitamin B12 Folate Urine WBC (Auto) Urine Creatinine Urine Total Protein Fluid Glucose Fluid Total Protein Crossmatch 07/12/19 07/12/19 07/12/19 15:08 15:08 15:08 WBC RBC Hgb Hct MCV MCH RDW Plt Count Lymph % (Auto) O'Brien % (Auto) Baso % (Auto) Lymph # O'Brien # Baso # Seg Neutrophils % Seg Neuts % (Manual) Lymphocytes % (Manual) Monocytes % (Manual) Nucleated RBC % Seg Neutrophils # Seg Neutrophils # Man Lymphocytes # (Manual) Monocytes # (Manual) PT INR APTT ABG pH ABG pO2 ABG HCO3 ABG O2 Saturation ABG Base Excess ABG Hemoglobin Oxyhemoglobin Sodium 125 L Potassium 5.5 H Chloride 84.9 L Carbon Dioxide 13 L BUN 70 H Creatinine 8.8 H Glucose POC Glucose Calcium 8.0 L Phosphorus Magnesium 1.30 L Iron TIBC Ferritin Total Bilirubin 1.30 H Direct Bilirubin 0.9 H AST 53 H Alkaline Phosphatase 208 H Lactate Dehydrogenase Troponin T 0.192 H* NT-Pro-B Natriuret Pep > 87132 H Serum Total Protein Total Protein Albumin 3.3 L Madvf-8-Zdlupyllu Gamma Globulins PEP Interpretation LDL Cholesterol Direct 40 L Vitamin B12 Folate Urine WBC (Auto) Urine Creatinine Urine Total Protein Fluid Glucose Fluid Total Protein Crossmatch 07/12/19 07/13/19 07/13/19 17:04 01:32 01:32 WBC RBC Hgb Hct MCV MCH RDW Plt Count Lymph % (Auto) O'Brien % (Auto) Baso % (Auto) Lymph # O'Brien # Baso # Seg Neutrophils % Seg Neuts % (Manual) Lymphocytes % (Manual) Monocytes % (Manual) Nucleated RBC % Seg Neutrophils # Seg Neutrophils # Man Lymphocytes # (Manual) Monocytes # (Manual) PT INR APTT ABG pH ABG pO2 ABG HCO3 ABG O2 Saturation ABG Base Excess ABG Hemoglobin Oxyhemoglobin Sodium 133 L D Potassium 5.3 H Chloride 90.8 L Carbon Dioxide 20 L D BUN 48 H Creatinine 6.2 H Glucose 105 H POC Glucose Calcium 8.2 L Phosphorus 4.90 H Magnesium 1.50 L Iron TIBC Ferritin Total Bilirubin Direct Bilirubin AST Alkaline Phosphatase Lactate Dehydrogenase Troponin T 0.188 H* NT-Pro-B Natriuret Pep Serum Total Protein Total Protein Albumin Yjhas-5-Fjngybxna Gamma Globulins PEP Interpretation LDL Cholesterol Direct Vitamin B12 Folate Urine WBC (Auto) Urine Creatinine Urine Total Protein Fluid Glucose Fluid Total Protein Crossmatch 07/13/19 07/13/19 07/13/19 04:28 04:28 16:16 WBC 15.9 H RBC 3.10 L Hgb 10.2 L Hct 30.6 L MCV 99 H MCH 33 H RDW 19.4 H Plt Count 135 L Lymph % (Auto) O'Brien % (Auto) Baso % (Auto) Lymph # O'Brien # Baso # Seg Neutrophils % Seg Neuts % (Manual) Lymphocytes % (Manual) 4.0 L Monocytes % (Manual) Nucleated RBC % Seg Neutrophils # Seg Neutrophils # Man 9.9 H Lymphocytes # (Manual) 0.6 L Monocytes # (Manual) PT INR APTT ABG pH ABG pO2 ABG HCO3 ABG O2 Saturation ABG Base Excess ABG Hemoglobin Oxyhemoglobin Sodium 132 L 134 L Potassium 5.1 H Chloride 90.3 L 92.2 L Carbon Dioxide 17 L 20 L BUN 47 H 55 H Creatinine 6.0 H 6.5 H Glucose 124 H POC Glucose Calcium 8.2 L 7.9 L Phosphorus Magnesium Iron TIBC Ferritin Total Bilirubin Direct Bilirubin AST Alkaline Phosphatase Lactate Dehydrogenase Troponin T NT-Pro-B Natriuret Pep Serum Total Protein Total Protein Albumin Qtypy-7-Tuoskkhtx Gamma Globulins PEP Interpretation LDL Cholesterol Direct Vitamin B12 Folate Urine WBC (Auto) Urine Creatinine Urine Total Protein Fluid Glucose Fluid Total Protein Crossmatch 07/14/19 07/14/19 07/14/19 07:16 07:16 07:16 WBC RBC 2.65 L Hgb 8.6 L Hct 25.4 L MCV 96 H MCH 33 H RDW 19.7 H Plt Count 114 L Lymph % (Auto) O'Brien % (Auto) Baso % (Auto) Lymph # O'Brien # Baso # Seg Neutrophils % Seg Neuts % (Manual) 89.0 H Lymphocytes % (Manual) 4.0 L Monocytes % (Manual) Nucleated RBC % Seg Neutrophils # Seg Neutrophils # Man Lymphocytes # (Manual) 0.3 L Monocytes # (Manual) PT INR APTT ABG pH ABG pO2 ABG HCO3 ABG O2 Saturation ABG Base Excess ABG Hemoglobin Oxyhemoglobin Sodium 133 L Potassium Chloride 93.0 L Carbon Dioxide 18 L BUN 61 H Creatinine 7.3 H Glucose 113 H POC Glucose Calcium 7.7 L Phosphorus Magnesium Iron TIBC Ferritin Total Bilirubin Direct Bilirubin AST Alkaline Phosphatase Lactate Dehydrogenase 210 H Troponin T NT-Pro-B Natriuret Pep Serum Total Protein Total Protein Albumin Fqtir-5-Ripbinwri Gamma Globulins PEP Interpretation LDL Cholesterol Direct Vitamin B12 Folate Urine WBC (Auto) Urine Creatinine Urine Total Protein Fluid Glucose Fluid Total Protein Crossmatch 07/14/19 07/14/19 07/14/19 10:45 16:40 17:28 WBC RBC Hgb Hct MCV MCH RDW Plt Count Lymph % (Auto) O'Brien % (Auto) Baso % (Auto) Lymph # O'Brien # Baso # Seg Neutrophils % Seg Neuts % (Manual) Lymphocytes % (Manual) Monocytes % (Manual) Nucleated RBC % Seg Neutrophils # Seg Neutrophils # Man Lymphocytes # (Manual) Monocytes # (Manual) PT INR APTT ABG pH ABG pO2 ABG HCO3 ABG O2 Saturation ABG Base Excess ABG Hemoglobin Oxyhemoglobin Sodium Potassium Chloride Carbon Dioxide BUN Creatinine Glucose POC Glucose Calcium Phosphorus Magnesium Iron TIBC Ferritin Total Bilirubin Direct Bilirubin AST Alkaline Phosphatase Lactate Dehydrogenase Troponin T NT-Pro-B Natriuret Pep Serum Total Protein Total Protein Albumin Sufxo-7-Uhndudrje Gamma Globulins PEP Interpretation LDL Cholesterol Direct Vitamin B12 Folate Urine WBC (Auto) Urine Creatinine 104.2 H 106.2 H Urine Total Protein 173 H Fluid Glucose 93 H Fluid Total Protein 4.7 L Crossmatch 07/14/19 07/14/19 07/15/19 17:28 20:43 06:30 WBC RBC 3.06 L Hgb 9.9 L Hct 29.7 L MCV 97 H MCH 33 H RDW 19.5 H Plt Count 101 L Lymph % (Auto) O'Brien % (Auto) Baso % (Auto) Lymph # O'Brien # Baso # Seg Neutrophils % Seg Neuts % (Manual) Lymphocytes % (Manual) Monocytes % (Manual) Nucleated RBC % Seg Neutrophils # Seg Neutrophils # Man Lymphocytes # (Manual) Monocytes # (Manual) PT INR APTT ABG pH ABG pO2 ABG HCO3 ABG O2 Saturation ABG Base Excess ABG Hemoglobin Oxyhemoglobin Sodium Potassium Chloride Carbon Dioxide BUN Creatinine Glucose POC Glucose 120 H Calcium Phosphorus Magnesium Iron TIBC Ferritin Total Bilirubin Direct Bilirubin AST Alkaline Phosphatase Lactate Dehydrogenase Troponin T NT-Pro-B Natriuret Pep Serum Total Protein Total Protein Albumin Rwbjh-8-Qemfremrd Gamma Globulins PEP Interpretation LDL Cholesterol Direct Vitamin B12 Folate Urine WBC (Auto) 31.0 H Urine Creatinine Urine Total Protein Fluid Glucose Fluid Total Protein Crossmatch 07/15/19 07/15/19 07/15/19 06:30 06:30 06:30 WBC RBC Hgb Hct MCV MCH RDW Plt Count Lymph % (Auto) O'Brien % (Auto) Baso % (Auto) Lymph # O'Brien # Baso # Seg Neutrophils % Seg Neuts % (Manual) Lymphocytes % (Manual) Monocytes % (Manual) Nucleated RBC % Seg Neutrophils # Seg Neutrophils # Man Lymphocytes # (Manual) Monocytes # (Manual) PT INR APTT ABG pH ABG pO2 ABG HCO3 ABG O2 Saturation ABG Base Excess ABG Hemoglobin Oxyhemoglobin Sodium Potassium Chloride 95.2 L Carbon Dioxide BUN 42 H Creatinine 4.9 H Glucose POC Glucose Calcium Phosphorus Magnesium Iron 15 L TIBC 186 L Ferritin 428.2 H Total Bilirubin Direct Bilirubin AST 50 H Alkaline Phosphatase 191 H Lactate Dehydrogenase Troponin T NT-Pro-B Natriuret Pep Serum Total Protein Total Protein Albumin 3.1 L Bixcp-9-Xdomayfyy Gamma Globulins PEP Interpretation LDL Cholesterol Direct Vitamin B12 Folate Urine WBC (Auto) Urine Creatinine Urine Total Protein Fluid Glucose Fluid Total Protein Crossmatch 07/15/19 07/16/19 07/16/19 12:42 06:19 21:34 WBC RBC Hgb Hct MCV MCH RDW Plt Count Lymph % (Auto) O'Brien % (Auto) Baso % (Auto) Lymph # O'Brien # Baso # Seg Neutrophils % Seg Neuts % (Manual) Lymphocytes % (Manual) Monocytes % (Manual) Nucleated RBC % Seg Neutrophils # Seg Neutrophils # Man Lymphocytes # (Manual) Monocytes # (Manual) PT INR APTT ABG pH ABG pO2 ABG HCO3 ABG O2 Saturation ABG Base Excess ABG Hemoglobin Oxyhemoglobin Sodium 134 L 134 L Potassium Chloride 92.9 L 93.4 L Carbon Dioxide 20 L BUN 55 H 40 H Creatinine 5.6 H 4.4 H Glucose POC Glucose 140 H Calcium Phosphorus Magnesium Iron TIBC Ferritin Total Bilirubin Direct Bilirubin AST Alkaline Phosphatase Lactate Dehydrogenase Troponin T NT-Pro-B Natriuret Pep Serum Total Protein Total Protein Albumin Srsch-8-Grgxgxyme Gamma Globulins PEP Interpretation LDL Cholesterol Direct Vitamin B12 Folate Urine WBC (Auto) Urine Creatinine Urine Total Protein Fluid Glucose Fluid Total Protein Crossmatch 07/17/19 07/17/19 07/17/19 05:27 12:10 12:52 WBC RBC Hgb Hct MCV MCH RDW Plt Count Lymph % (Auto) O'Brien % (Auto) Baso % (Auto) Lymph # O'Brien # Baso # Seg Neutrophils % Seg Neuts % (Manual) Lymphocytes % (Manual) Monocytes % (Manual) Nucleated RBC % Seg Neutrophils # Seg Neutrophils # Man Lymphocytes # (Manual) Monocytes # (Manual) PT INR APTT ABG pH ABG pO2 ABG HCO3 ABG O2 Saturation ABG Base Excess ABG Hemoglobin Oxyhemoglobin Sodium 136 L Potassium Chloride 93.6 L Carbon Dioxide BUN 43 H Creatinine 4.8 H Glucose POC Glucose 122 H 122 H Calcium Phosphorus Magnesium Iron TIBC Ferritin Total Bilirubin Direct Bilirubin AST Alkaline Phosphatase Lactate Dehydrogenase Troponin T NT-Pro-B Natriuret Pep Serum Total Protein Total Protein Albumin Obsrg-5-Tibquecmr Gamma Globulins PEP Interpretation LDL Cholesterol Direct Vitamin B12 Folate Urine WBC (Auto) Urine Creatinine Urine Total Protein Fluid Glucose Fluid Total Protein Crossmatch 07/17/19 07/18/19 07/18/19 13:50 04:20 05:40 WBC RBC Hgb Hct MCV MCH RDW Plt Count Lymph % (Auto) O'Brien % (Auto) Baso % (Auto) Lymph # O'Brien # Baso # Seg Neutrophils % Seg Neuts % (Manual) Lymphocytes % (Manual) Monocytes % (Manual) Nucleated RBC % Seg Neutrophils # Seg Neutrophils # Man Lymphocytes # (Manual) Monocytes # (Manual) PT INR APTT ABG pH 7.262 L ABG pO2 195.5 H 238.9 H ABG HCO3 ABG O2 Saturation 99.1 H 99.4 H ABG Base Excess -2.9 L ABG Hemoglobin 8.6 L 10.9 L Oxyhemoglobin Sodium Potassium Chloride 94.5 L Carbon Dioxide BUN 61 H Creatinine 5.6 H Glucose 111 H POC Glucose Calcium Phosphorus 4.70 H Magnesium Iron TIBC Ferritin Total Bilirubin Direct Bilirubin AST Alkaline Phosphatase Lactate Dehydrogenase 294 H Troponin T NT-Pro-B Natriuret Pep Serum Total Protein Total Protein Albumin Serls-6-Esrfyalyi Gamma Globulins PEP Interpretation LDL Cholesterol Direct Vitamin B12 Folate Urine WBC (Auto) Urine Creatinine Urine Total Protein Fluid Glucose Fluid Total Protein Crossmatch 07/18/19 07/18/19 07/18/19 05:40 05:40 10:30 WBC 22.7 H RBC 2.64 L Hgb 8.2 L Hct 24.9 L MCV 95 H MCH RDW 19.7 H Plt Count 94 L Lymph % (Auto) O'Brien % (Auto) Baso % (Auto) Lymph # O'Brien # Baso # Seg Neutrophils % Seg Neuts % (Manual) Lymphocytes % (Manual) Monocytes % (Manual) Nucleated RBC % Seg Neutrophils # Seg Neutrophils # Man Lymphocytes # (Manual) Monocytes # (Manual) PT INR APTT ABG pH 7.457 H ABG pO2 ABG HCO3 26.3 H ABG O2 Saturation ABG Base Excess ABG Hemoglobin 7.8 L Oxyhemoglobin 94.6 L Sodium Potassium Chloride Carbon Dioxide BUN Creatinine Glucose POC Glucose Calcium Phosphorus Magnesium Iron TIBC Ferritin Total Bilirubin Direct Bilirubin 0.7 H AST 94 H Alkaline Phosphatase 159 H Lactate Dehydrogenase Troponin T NT-Pro-B Natriuret Pep Serum Total Protein Total Protein 5.6 L D Albumin 2.5 L Wesxd-9-Pyelaeeer Gamma Globulins PEP Interpretation LDL Cholesterol Direct Vitamin B12 Folate Urine WBC (Auto) Urine Creatinine Urine Total Protein Fluid Glucose Fluid Total Protein Crossmatch 01/07/19/19 07/19/19 Unknown 05:15 05:15 WBC RBC Hgb Hct MCV MCH RDW Plt Count Lymph % (Auto) O'Brien % (Auto) Baso % (Auto) Lymph # O'Brien # Baso # Seg Neutrophils % Seg Neuts % (Manual) Lymphocytes % (Manual) Monocytes % (Manual) Nucleated RBC % Seg Neutrophils # Seg Neutrophils # Man Lymphocytes # (Manual) Monocytes # (Manual) PT INR APTT ABG pH ABG pO2 ABG HCO3 ABG O2 Saturation ABG Base Excess ABG Hemoglobin 11.6 L Oxyhemoglobin 94.3 L Sodium 133 L Potassium Chloride 94.9 L Carbon Dioxide BUN 43 H Creatinine 4.0 H Glucose 118 H POC Glucose Calcium Phosphorus Magnesium 0.20 L* Iron TIBC Ferritin Total Bilirubin Direct Bilirubin AST Alkaline Phosphatase Lactate Dehydrogenase Troponin T NT-Pro-B Natriuret Pep Serum Total Protein Total Protein Albumin Rijjp-6-Wehibyygj Gamma Globulins PEP Interpretation LDL Cholesterol Direct Vitamin B12 Folate Urine WBC (Auto) Urine Creatinine Urine Total Protein Fluid Glucose Fluid Total Protein Crossmatch 07/19/19 07/19/19 07/20/19 05:15 06:00 06:15 WBC 14.6 H RBC 2.57 L Hgb 8.2 L Hct 24.3 L MCV 95 H MCH RDW 19.5 H Plt Count 101 L Lymph % (Auto) O'Brien % (Auto) Baso % (Auto) Lymph # O'Brien # Baso # Seg Neutrophils % Seg Neuts % (Manual) Lymphocytes % (Manual) Monocytes % (Manual) Nucleated RBC % Seg Neutrophils # Seg Neutrophils # Man Lymphocytes # (Manual) Monocytes # (Manual) PT INR APTT ABG pH ABG pO2 91.2 H ABG HCO3 27.5 H ABG O2 Saturation ABG Base Excess ABG Hemoglobin 8.3 L Oxyhemoglobin Sodium Potassium Chloride Carbon Dioxide BUN 61 H Creatinine 4.6 H Glucose 117 H POC Glucose Calcium Phosphorus Magnesium Iron TIBC Ferritin Total Bilirubin Direct Bilirubin AST Alkaline Phosphatase Lactate Dehydrogenase Troponin T NT-Pro-B Natriuret Pep Serum Total Protein Total Protein Albumin Bswdp-1-Ndfmwkblh Gamma Globulins PEP Interpretation LDL Cholesterol Direct Vitamin B12 Folate Urine WBC (Auto) Urine Creatinine Urine Total Protein Fluid Glucose Fluid Total Protein Crossmatch 07/21/19 07/21/19 07/21/19 05:30 06:15 06:15 WBC 11.8 H RBC 2.45 L Hgb 7.9 L Hct 23.5 L MCV 96 H MCH RDW 19.4 H Plt Count Lymph % (Auto) O'Brien % (Auto) Baso % (Auto) Lymph # O'Brien # Baso # Seg Neutrophils % Seg Neuts % (Manual) Lymphocytes % (Manual) Monocytes % (Manual) Nucleated RBC % Seg Neutrophils # Seg Neutrophils # Man Lymphocytes # (Manual) Monocytes # (Manual) PT INR APTT ABG pH ABG pO2 104.5 H ABG HCO3 27.9 H ABG O2 Saturation ABG Base Excess 3.3 H ABG Hemoglobin 8.2 L Oxyhemoglobin Sodium Potassium 3.3 L Chloride Carbon Dioxide BUN 74 H Creatinine 4.3 H Glucose 127 H POC Glucose Calcium Phosphorus Magnesium Iron TIBC Ferritin Total Bilirubin Direct Bilirubin AST Alkaline Phosphatase Lactate Dehydrogenase Troponin T NT-Pro-B Natriuret Pep Serum Total Protein Total Protein Albumin Iiytc-3-Fffzlnbns Gamma Globulins PEP Interpretation LDL Cholesterol Direct Vitamin B12 Folate Urine WBC (Auto) Urine Creatinine Urine Total Protein Fluid Glucose Fluid Total Protein Crossmatch 07/21/19 07/21/19 07/21/19 08:00 08:00 17:51 WBC RBC Hgb Hct MCV MCH RDW Plt Count Lymph % (Auto) O'Brien % (Auto) Baso % (Auto) Lymph # O'Brien # Baso # Seg Neutrophils % Seg Neuts % (Manual) Lymphocytes % (Manual) Monocytes % (Manual) Nucleated RBC % Seg Neutrophils # Seg Neutrophils # Man Lymphocytes # (Manual) Monocytes # (Manual) PT INR APTT ABG pH ABG pO2 ABG HCO3 ABG O2 Saturation ABG Base Excess ABG Hemoglobin Oxyhemoglobin Sodium Potassium 3.2 L Chloride Carbon Dioxide BUN Creatinine Glucose POC Glucose Calcium Phosphorus Magnesium Iron TIBC Ferritin Total Bilirubin Direct Bilirubin AST Alkaline Phosphatase Lactate Dehydrogenase Troponin T NT-Pro-B Natriuret Pep Serum Total Protein Total Protein Albumin Knnse-7-Mcqgawufo Gamma Globulins PEP Interpretation LDL Cholesterol Direct Vitamin B12 960.4 H Folate 6.18 L Urine WBC (Auto) Urine Creatinine Urine Total Protein Fluid Glucose Fluid Total Protein Crossmatch 07/22/19 07/22/19 07/22/19 03:40 06:00 21:45 WBC 12.6 H RBC 2.54 L Hgb 7.8 L Hct 24.2 L MCV 95 H MCH RDW 19.7 H Plt Count Lymph % (Auto) O'Brien % (Auto) Baso % (Auto) Lymph # O'Brien # Baso # Seg Neutrophils % Seg Neuts % (Manual) Lymphocytes % (Manual) Monocytes % (Manual) Nucleated RBC % Seg Neutrophils # Seg Neutrophils # Man Lymphocytes # (Manual) Monocytes # (Manual) PT INR APTT ABG pH ABG pO2 99.4 H ABG HCO3 27.3 H ABG O2 Saturation ABG Base Excess ABG Hemoglobin 9.2 L Oxyhemoglobin Sodium Potassium 3.1 L Chloride Carbon Dioxide BUN 75 H Creatinine 2.9 H Glucose 123 H POC Glucose Calcium Phosphorus Magnesium Iron TIBC Ferritin Total Bilirubin Direct Bilirubin AST Alkaline Phosphatase Lactate Dehydrogenase Troponin T NT-Pro-B Natriuret Pep Serum Total Protein Total Protein Albumin Rlvww-6-Wjgvpbtkk Gamma Globulins PEP Interpretation LDL Cholesterol Direct Vitamin B12 Folate Urine WBC (Auto) Urine Creatinine Urine Total Protein Fluid Glucose Fluid Total Protein Crossmatch 07/23/19 07/23/19 07/24/19 05:30 05:30 04:12 WBC RBC Hgb Hct MCV MCH RDW Plt Count Lymph % (Auto) O'Brien % (Auto) Baso % (Auto) Lymph # O'Brien # Baso # Seg Neutrophils % Seg Neuts % (Manual) Lymphocytes % (Manual) Monocytes % (Manual) Nucleated RBC % Seg Neutrophils # Seg Neutrophils # Man Lymphocytes # (Manual) Monocytes # (Manual) PT INR APTT ABG pH ABG pO2 123.1 H ABG HCO3 27.1 H ABG O2 Saturation ABG Base Excess ABG Hemoglobin 9.3 L Oxyhemoglobin Sodium Potassium 3.1 L Chloride Carbon Dioxide BUN 80 H Creatinine 2.6 H Glucose 112 H POC Glucose Calcium Phosphorus Magnesium Iron TIBC Ferritin Total Bilirubin Direct Bilirubin AST Alkaline Phosphatase Lactate Dehydrogenase Troponin T NT-Pro-B Natriuret Pep Serum Total Protein 5.9 L Total Protein Albumin 2.2 L Hldnn-7-Amvrziuha 0.5 H Gamma Globulins 2.0 H PEP Interpretation see below H LDL Cholesterol Direct Vitamin B12 Folate Urine WBC (Auto) Urine Creatinine Urine Total Protein Fluid Glucose Fluid Total Protein Crossmatch 07/24/19 07/24/19 07/25/19 07:03 07:03 04:05 WBC RBC Hgb Hct MCV MCH RDW Plt Count Lymph % (Auto) O'Brien % (Auto) Baso % (Auto) Lymph # O'Brien # Baso # Seg Neutrophils % Seg Neuts % (Manual) Lymphocytes % (Manual) Monocytes % (Manual) Nucleated RBC % Seg Neutrophils # Seg Neutrophils # Man Lymphocytes # (Manual) Monocytes # (Manual) PT INR APTT ABG pH ABG pO2 ABG HCO3 ABG O2 Saturation ABG Base Excess ABG Hemoglobin Oxyhemoglobin Sodium 147 H Potassium 3.4 L Chloride 107.5 H 110.1 H Carbon Dioxide BUN 70 H 62 H Creatinine 1.8 H Glucose 112 H 115 H POC Glucose Calcium Phosphorus Magnesium 1.50 L Iron TIBC Ferritin Total Bilirubin Direct Bilirubin AST Alkaline Phosphatase Lactate Dehydrogenase Troponin T NT-Pro-B Natriuret Pep Serum Total Protein Total Protein Albumin Ftdtq-5-Oltpiqzqj Gamma Globulins PEP Interpretation LDL Cholesterol Direct Vitamin B12 Folate Urine WBC (Auto) Urine Creatinine Urine Total Protein Fluid Glucose Fluid Total Protein Crossmatch 07/25/19 07/25/19 07/26/19 04:05 05:27 04:47 WBC 11.4 H RBC 2.39 L Hgb 7.5 L Hct 23.0 L MCV 96 H MCH RDW 19.4 H Plt Count Lymph % (Auto) O'Brien % (Auto) Baso % (Auto) Lymph # O'Brien # Baso # Seg Neutrophils % Seg Neuts % (Manual) 76.0 H Lymphocytes % (Manual) 9.0 L Monocytes % (Manual) 11.0 H Nucleated RBC % Seg Neutrophils # Seg Neutrophils # Man 8.7 H Lymphocytes # (Manual) 1.0 L Monocytes # (Manual) 1.3 H PT INR APTT ABG pH 7.457 H ABG pO2 75.5 L ABG HCO3 27.2 H ABG O2 Saturation ABG Base Excess 3.1 H ABG Hemoglobin 7.0 L Oxyhemoglobin 94.4 L Sodium 147 H Potassium Chloride 111.5 H Carbon Dioxide BUN 57 H Creatinine Glucose 121 H POC Glucose Calcium Phosphorus Magnesium Iron TIBC Ferritin Total Bilirubin Direct Bilirubin AST Alkaline Phosphatase Lactate Dehydrogenase Troponin T NT-Pro-B Natriuret Pep Serum Total Protein Total Protein Albumin Aqbge-6-Bgzaongbp Gamma Globulins PEP Interpretation LDL Cholesterol Direct Vitamin B12 Folate Urine WBC (Auto) Urine Creatinine Urine Total Protein Fluid Glucose Fluid Total Protein Crossmatch 07/26/19 07/27/19 07/27/19 04:47 01:17 05:55 WBC RBC Hgb Hct MCV MCH RDW Plt Count Lymph % (Auto) O'Brien % (Auto) Baso % (Auto) Lymph # O'Brien # Baso # Seg Neutrophils % Seg Neuts % (Manual) Lymphocytes % (Manual) Monocytes % (Manual) Nucleated RBC % Seg Neutrophils # Seg Neutrophils # Man Lymphocytes # (Manual) Monocytes # (Manual) PT INR APTT ABG pH ABG pO2 ABG HCO3 ABG O2 Saturation ABG Base Excess ABG Hemoglobin Oxyhemoglobin Sodium 147 H Potassium Chloride 109.6 H Carbon Dioxide BUN 43 H Creatinine Glucose 113 H POC Glucose 122 H Calcium Phosphorus Magnesium 1.50 L Iron TIBC Ferritin Total Bilirubin Direct Bilirubin AST Alkaline Phosphatase Lactate Dehydrogenase Troponin T NT-Pro-B Natriuret Pep Serum Total Protein Total Protein Albumin Rmaoz-6-Rbeitxtql Gamma Globulins PEP Interpretation LDL Cholesterol Direct Vitamin B12 Folate Urine WBC (Auto) Urine Creatinine Urine Total Protein Fluid Glucose Fluid Total Protein Crossmatch 07/28/19 07/28/19 07/28/19 08:06 12:29 13:31 WBC 11.3 H RBC 2.16 L Hgb 6.7 L Hct 20.9 L MCV 97 H MCH RDW 19.0 H Plt Count Lymph % (Auto) O'Brien % (Auto) Baso % (Auto) Lymph # O'Brien # Baso # Seg Neutrophils % Seg Neuts % (Manual) Lymphocytes % (Manual) Monocytes % (Manual) Nucleated RBC % Seg Neutrophils # Seg Neutrophils # Man Lymphocytes # (Manual) Monocytes # (Manual) PT 21.4 H INR 1.82 H APTT ABG pH ABG pO2 ABG HCO3 ABG O2 Saturation ABG Base Excess ABG Hemoglobin Oxyhemoglobin Sodium 147 H Potassium Chloride 111.0 H Carbon Dioxide BUN 35 H Creatinine Glucose 119 H POC Glucose Calcium Phosphorus Magnesium 1.50 L Iron TIBC Ferritin Total Bilirubin Direct Bilirubin AST Alkaline Phosphatase Lactate Dehydrogenase Troponin T NT-Pro-B Natriuret Pep Serum Total Protein Total Protein Albumin Eqqcq-3-Pjmnyxsyc Gamma Globulins PEP Interpretation LDL Cholesterol Direct Vitamin B12 Folate Urine WBC (Auto) Urine Creatinine Urine Total Protein Fluid Glucose Fluid Total Protein Crossmatch 07/28/19 07/29/19 07/29/19 16:44 04:45 04:45 WBC RBC Hgb Hct MCV MCH RDW Plt Count Lymph % (Auto) O'Brien % (Auto) Baso % (Auto) Lymph # O'Brien # Baso # Seg Neutrophils % Seg Neuts % (Manual) Lymphocytes % (Manual) Monocytes % (Manual) Nucleated RBC % Seg Neutrophils # Seg Neutrophils # Man Lymphocytes # (Manual) Monocytes # (Manual) PT 20.2 H INR 1.69 H APTT ABG pH ABG pO2 ABG HCO3 ABG O2 Saturation ABG Base Excess ABG Hemoglobin Oxyhemoglobin Sodium 148 H Potassium Chloride 111.8 H Carbon Dioxide BUN 29 H Creatinine Glucose 104 H POC Glucose Calcium Phosphorus Magnesium Iron TIBC Ferritin Total Bilirubin Direct Bilirubin AST Alkaline Phosphatase Lactate Dehydrogenase Troponin T NT-Pro-B Natriuret Pep Serum Total Protein Total Protein Albumin Sgihr-8-Yzbthzcmq Gamma Globulins PEP Interpretation LDL Cholesterol Direct Vitamin B12 Folate Urine WBC (Auto) Urine Creatinine Urine Total Protein Fluid Glucose Fluid Total Protein Crossmatch See Detail 07/29/19 07/30/19 07/30/19 10:06 04:56 04:56 WBC RBC 2.40 L Hgb 7.3 L Hct 22.8 L MCV 95 H MCH RDW 21.2 H Plt Count Lymph % (Auto) 11.0 L O'Brien % (Auto) 11.1 H Baso % (Auto) 2.3 H Lymph # 1.0 L O'Brien # 1.1 H Baso # 0.2 H Seg Neutrophils % 72.7 H Seg Neuts % (Manual) Lymphocytes % (Manual) Monocytes % (Manual) Nucleated RBC % Seg Neutrophils # Seg Neutrophils # Man Lymphocytes # (Manual) Monocytes # (Manual) PT 20.0 H INR 1.67 H APTT ABG pH ABG pO2 ABG HCO3 ABG O2 Saturation ABG Base Excess ABG Hemoglobin Oxyhemoglobin Sodium Potassium Chloride Carbon Dioxide BUN Creatinine Glucose POC Glucose Calcium Phosphorus Magnesium 1.50 L Iron TIBC Ferritin Total Bilirubin Direct Bilirubin AST Alkaline Phosphatase Lactate Dehydrogenase Troponin T NT-Pro-B Natriuret Pep Serum Total Protein Total Protein Albumin Mkcpx-0-Gqaamdkzo Gamma Globulins PEP Interpretation LDL Cholesterol Direct Vitamin B12 Folate Urine WBC (Auto) Urine Creatinine Urine Total Protein Fluid Glucose Fluid Total Protein Crossmatch 07/31/19 07/31/19 07/31/19 04:53 04:53 09:46 WBC 12.8 H RBC 2.45 L Hgb 7.4 L 7.1 L Hct 23.4 L 22.0 L MCV 95 H MCH RDW 20.2 H Plt Count Lymph % (Auto) 6.6 L O'Brien % (Auto) 8.1 H Baso % (Auto) Lymph # 0.8 L O'Brien # 1.0 H Baso # Seg Neutrophils % 81.6 H Seg Neuts % (Manual) Lymphocytes % (Manual) Monocytes % (Manual) Nucleated RBC % Seg Neutrophils # 10.4 H Seg Neutrophils # Man Lymphocytes # (Manual) Monocytes # (Manual) PT 20.2 H INR 1.69 H APTT ABG pH ABG pO2 ABG HCO3 ABG O2 Saturation ABG Base Excess ABG Hemoglobin Oxyhemoglobin Sodium Potassium Chloride Carbon Dioxide BUN Creatinine Glucose POC Glucose Calcium Phosphorus Magnesium Iron TIBC Ferritin Total Bilirubin Direct Bilirubin AST Alkaline Phosphatase Lactate Dehydrogenase Troponin T NT-Pro-B Natriuret Pep Serum Total Protein Total Protein Albumin Gkenz-2-Ehztnblso Gamma Globulins PEP Interpretation LDL Cholesterol Direct Vitamin B12 Folate Urine WBC (Auto) Urine Creatinine Urine Total Protein Fluid Glucose Fluid Total Protein Crossmatch 08/01/19 08/01/19 08/01/19 05:21 05:21 08:25 WBC 17.0 H RBC 2.12 L Hgb 6.5 L Hct 20.4 L MCV 96 H MCH RDW 20.2 H Plt Count Lymph % (Auto) 6.0 L O'Brien % (Auto) 8.4 H Baso % (Auto) Lymph # 1.0 L O'Brien # 1.4 H Baso # Seg Neutrophils % 82.6 H Seg Neuts % (Manual) Lymphocytes % (Manual) Monocytes % (Manual) Nucleated RBC % Seg Neutrophils # 14.0 H Seg Neutrophils # Man Lymphocytes # (Manual) Monocytes # (Manual) PT INR APTT ABG pH ABG pO2 ABG HCO3 ABG O2 Saturation ABG Base Excess ABG Hemoglobin Oxyhemoglobin Sodium 146 H Potassium Chloride 110.8 H Carbon Dioxide BUN 23 H Creatinine Glucose 118 H POC Glucose Calcium 8.3 L Phosphorus Magnesium 1.50 L Iron TIBC Ferritin Total Bilirubin Direct Bilirubin AST Alkaline Phosphatase 179 H Lactate Dehydrogenase Troponin T NT-Pro-B Natriuret Pep Serum Total Protein Total Protein Albumin 2.4 L Hmjxz-3-Dscrbzugv Gamma Globulins PEP Interpretation LDL Cholesterol Direct Vitamin B12 Folate Urine WBC (Auto) Urine Creatinine Urine Total Protein Fluid Glucose Fluid Total Protein Crossmatch See Detail
[2019-08-01] MEDS ORDERED: levETIRAcetam 2,000 MG in DEXTROSE 5% IN WATER 100 ML IV SCH (18:00)
--- NOTE | 2019-08-01 19:27 | Discharge Summary ---
Providers - Providers Date of Admission: 07/12/19 16:17 Date of discharge: 08/01/19 Attending physician: ADALBERTO LEAL 07/12/19 16:12 Consult to Physician [CONS] Stat Comment: DR YUSUF MALDONADO W/DR MCKENNA @[id number] Consulting Provider: YOLANDA MCKENNA Physician Instructions: Reason For Exam: acute renal failure 07/14/19 15:52 Consult to Physician [CONS] Routine Comment: Consulting Provider: URIAH ALEXANDER Physician Instructions: Reason For Exam: chf 07/17/19 12:24 Consult to Physician [CONS] Routine Comment: Consulting Provider: ARTURO ELMORE Physician Instructions: Reason For Exam: permcath placement 07/17/19 13:10 Consult to Physician [CONS] Stat Comment: Consulting Provider: SOPHY BERMAN Physician Instructions: Reason For Exam: critical care management 07/18/19 12:27 Consult to Physician [CONS] Routine Comment: Consulting Provider: GRACE RANDALL Physician Instructions: hematology Reason For Exam: possible hemolysis 07/21/19 19:07 Consult to Wound/ET Nurse [CONS] Routine Reason For Exam: wound eval SACRUM STAGE II 07/23/19 10:52 Consult to Physician [CONS] Routine Comment: Consulting Provider: JASON BLISS Physician Instructions: Reason For Exam: anoxic brain injury 07/28/19 12:19 Consult to Physician [CONS] Routine Comment: Consulting Provider: ABIGAIL HILL Physician Instructions: Reason For Exam: cva, anoxic? AMS 07/29/19 17:54 Consult to Physician [CONS] Routine Comment: Consulting Provider: FERNANDO HERNÁNDEZ Physician Instructions: Reason For Exam: fever 07/31/19 17:31 Consult to Physician [CONS] Routine Comment: Consulting Provider: ABIGAIL HILL Physician Instructions: Reason For Exam: seizures 08/01/19 07:41 Consult to Dietitian/Nutrition [CONS] Routine Physician Instructions: Reason For Exam: Reason for Consult: Malnutrition [facility] Reason for admission: Acute respiratory failure/acute on chronic systolic congestive heart failur Condition: Stable Pertinent studies: CT head CT abdomen and pelvis Multiple chest x-rays Renal ultrasound MRI brain MRA Lower extremities venous Doppler Echocardiogram EEG Carotid Doppler Procedures: Ultrasound-guided paracentesis Tracheostomy PEG placement Bronchoscopy Hospital course: 48-year-old man with a history of being deaf (writes to communicate) HTN, Systolic CHF(EF 20%), anxiety, depression COPD and GERD was admitted through [facility] ED on 07/12/2019 With acute hypoxic respiratory failure secondary to acute on chronic congestive heart failure, left lower lobe pneumonia severe Uremia, hyponatremia, hyperkalemia, metabolic acidosis. Patient was initially admitted to medical floor, evaluated by nephrology initiated hemodialysis, cardiology optimized medications, pulmonary as well as infectious diseases Patient also noted to have cardiac arrhythmias with NSVT atrial flutter with rapid ventricular rate, cardiology evaluated optimize medications On 07/17/2019, patient had PEA cardiac arrest , received CPR per ACLS protocol intubated on ventilatory support. Transfer to ICU Patient had another PEA cardiac arrest, received CPR per ACLS protocol, pulse restored. Patient developed overnight posturing, anoxic brain injury and was comatose. Patient could not be weaned off ventilator, subsequently underwent trach and PEG. Patient had witnessed seizures on 07/31/2019, started on Keppra, evaluated by neurologist EEG was done, noted to have 2 electrographic seizures during the EEG recording. Neurology recommended transfer to neuro ICU/ICU where continuous EEG monitoring facility is available[not available in our hospital] Patient is being transferred to ICU for continuous EEG monitoring and for higher level of care at [facility]. Discharge diagnosis; --Seizures; On propofol infusion, Keppra, seizure precautions Ativan as needed --Acute CVA; MRI subacute infarct in right posterior temporal white matter Patient has paroxysmal atrial fibrillation, initiated Eliquis However due to tracheal bleeding [bleeding from tracheostomy site] Eliquis held --Status post cardiac arrest x2 07/17/2019, 07/18/2019 --Anoxic brain injury/severe metabolic encephalopathy --Acute hypoxic respiratory failure; vent dependent Status post tracheostomy on vent --Acute on chronic systolic congestive heart failure; EF 25% --Bilateral pneumonia; completed treatment --Persistent fevers; central in origin, monitor off antibiotics --Fluid overload ascites; status post paracentesis removal of 3.2 L --Anemia; requiring blood transfusion --Thrombocytopenia; resolved --Paroxysmal A. fib/flutter; rate controlled --Chronic anticoagulation; Eliquis[held due to tracheostomy site bleeding] --Hypertension; moderate control --Status post PEG placement; tube feeding --Full CODE STATUS. Patient is critically ill with poor prognosis Patient is being transferred to [facility] ICU For higher level of care, For continuous EEG monitoring. Disposition: [id number] SHRT-TRM GEN HOSP IP Time spent for discharge: 45 MIN Core Measure Documentation - Palliative Care Palliative Care/ Comfort Measures: Not Applicable - Core Measures Any of the following diagnoses?: stroke - Stroke Discharge Requirements Statin for LDL = or >70 mg/dl on DC: Yes Anticoag for atrial fib/atrial flutter: Yes (held due to bleeding) Antithrombotic for ischemic stroke: Yes Exam - Constitutional Vitals: Temp Pulse Resp BP Pulse Ox 99.8 F H 70 13 124/64 100 08/01/19 16:00 08/01/19 18:30 08/01/19 18:30 08/01/19 18:30 08/01/19 18:30 General appearance: Present: mild distress, well-nourished, obese, other (Tracheostomy on vent) - EENT Eyes: Present: PERRL, EOM intact - Neck Neck: Present: supple, normal ROM - Respiratory Respiratory: bilateral: diminished, rhonchi, negative: rales, wheezing - Cardiovascular Rhythm: regular Heart Sounds: Present: S1 & S2 - Extremities Extremities: no ischemia, No edema - Abdominal General gastrointestinal: Present: soft, non-tender, non-distended, other (PEG in place) - Integumentary Integumentary: Present: clear, warm - Musculoskeletal Musculoskeletal: other (On vent) - Psychiatric Psychiatric: other (On vent) - Neurologic Neurologic: other (On vent) Plan Additional Instructions: Transfer to [facility] ICU [Dr. MAR ICU charging manipulator ] Follow up with: HAMILTON LACY MD [Primary Care Provider] - 7 Days Prescriptions: AtorvaSTATin [Lipitor] 40 mg PO QHS #30 tab
--- NOTE | 2019-08-01 20:34 | Cat Scan Report ---
CT head/brain wo con INDICATION: seizures. TECHNIQUE: Routine CT head without contrast. All CT scans at this location are performed using CT dos e reduction for ALARA by means of automated exposure control. COMPARISON: Head CT on 07/19/2019. Brain MRI on 07/24/2019. FINDINGS: BRAIN / INTRACRANIAL CONTENTS: There is worsening hypoattenuation in the left MCA territory concernin g for worsening left MCA territory infarct. There is effacement of the left lateral ventricle with mi ld rightward midline shift that has developed since the prior study. There is no hemorrhage or other adverse mass effect. ORBITS: No significant abnormality of visualized orbits. SINUSES / MASTOIDS: There is fluid layering in the pharynx and paranasal sinuses. ADDITIONAL FINDINGS: None. IMPRESSION: 1. Interval development of new hypoattenuation in the left cerebrum which is concerning for possible developing left MCA territory infarct. Signer Name: Ronan Colbert MD Signed: 08/01/2019 8:29 PM Workstation Name: [id number]
[2019-08-02 01:36] VITALS: BP 150/83
== END 2019-08-02 02:15 | disposition short-term general hospital (02) | DRG 4 ==
LOC: ED 14:22 → 4A 16:17 → IMCU 07-13 09:00 → 4A 07-13 16:18 → CC1 07-17 12:18
PROVIDERS: ADMIT Internal Medicine; ATTEND Internal Medicine
PROC: 5A1D70Z Performance of Urinary Filtration, Intermittent, Less than 6 Hours Per Day (ICD-10-PCS; 2019-07-12)
PROC: 06HY33Z Insertion of Infusion Device into Lower Vein, Percutaneous Approach (ICD-10-PCS; 2019-07-12)
PROC: 5A1D70Z Performance of Urinary Filtration, Intermittent, Less than 6 Hours Per Day (ICD-10-PCS; 2019-07-13)
PROC: 0W9G3ZZ Drainage of Peritoneal Cavity, Percutaneous Approach (ICD-10-PCS; 2019-07-15)
PROC: 5A1D70Z Performance of Urinary Filtration, Intermittent, Less than 6 Hours Per Day (ICD-10-PCS; 2019-07-16)
PROC: 5A1945Z Respiratory Ventilation, 24-96 Consecutive Hours (ICD-10-PCS; 2019-07-17)
PROC: 0BH17EZ Insertion of Endotracheal Airway into Trachea, Via Natural or Artificial Opening (ICD-10-PCS; 2019-07-17)
PROC: 5A12012 Performance of Cardiac Output, Single, Manual (ICD-10-PCS; 2019-07-17)
PROC: 4A033R1 Measurement of Arterial Saturation, Peripheral, Percutaneous Approach (ICD-10-PCS; 2019-07-18)
PROC: 5A1D70Z Performance of Urinary Filtration, Intermittent, Less than 6 Hours Per Day (ICD-10-PCS; 2019-07-18)
PROC: 5A1945Z Respiratory Ventilation, 24-96 Consecutive Hours (ICD-10-PCS; 2019-07-21)
PROC: 0BH17EZ Insertion of Endotracheal Airway into Trachea, Via Natural or Artificial Opening (ICD-10-PCS; 2019-07-21)
PROC: 30233N1 Transfusion of Nonautologous Red Blood Cells into Peripheral Vein, Percutaneous Approach (ICD-10-PCS; principal; 2019-07-28)
PROC: 0B110F4 Bypass Trachea to Cutaneous with Tracheostomy Device, Open Approach (ICD-10-PCS; 2019-07-29)
PROC: 0DH63UZ Insertion of Feeding Device into Stomach, Percutaneous Approach (ICD-10-PCS; 2019-07-29)
PROC: 0BJ08ZZ Inspection of Tracheobronchial Tree, Via Natural or Artificial Opening Endoscopic (ICD-10-PCS; 2019-07-29)
PROC: 3E1F88Z Irrigation of Respiratory Tract using Irrigating Substance, Via Natural or Artificial Opening Endoscopic (ICD-10-PCS; 2019-07-31)
DX: J96.01 Acute respiratory failure with hypoxia (principal); J18.9 Pneumonia, unspecified organism; I50.23 Acute on chronic systolic (congestive) heart failure; N17.0 Acute kidney failure with tubular necrosis; G93.41 Metabolic encephalopathy; N18.6 End stage renal disease; I46.9 Cardiac arrest, cause unspecified; I63.9 Cerebral infarction, unspecified; E43 Unspecified severe protein-calorie malnutrition; I13.2 Hypertensive heart and chronic kidney disease with heart failure and with stage 5 chronic kidney disease, or end stage renal disease; E87.1 Hypo-osmolality and hyponatremia; E87.2 Acidosis; I48.92 Unspecified atrial flutter; G93.1 Anoxic brain damage, not elsewhere classified; R18.8 Other ascites; I42.8 Other cardiomyopathies; I13.11 Hypertensive heart and chronic kidney disease without heart failure, with stage 5 chronic kidney disease, or end stage renal disease; J44.9 Chronic obstructive pulmonary disease, unspecified; F41.8 Other specified anxiety disorders; H91.90 Unspecified hearing loss, unspecified ear; E87.5 Hyperkalemia; D69.6 Thrombocytopenia, unspecified; E83.42 Hypomagnesemia; F10.20 Alcohol dependence, uncomplicated; K21.9 Gastro-esophageal reflux disease without esophagitis; I49.9 Cardiac arrhythmia, unspecified; R56.9 Unspecified convulsions; I48.0 Paroxysmal atrial fibrillation; E87.70 Fluid overload, unspecified; D72.829 Elevated white blood cell count, unspecified; E88.09 Other disorders of plasma-protein metabolism, not elsewhere classified; E66.9 Obesity, unspecified; D63.1 Anemia in chronic kidney disease; I16.0 Hypertensive urgency; Z79.899 Other long term (current) drug therapy; Z99.2 Dependence on renal dialysis; Z99.81 Dependence on supplemental oxygen; Z83.3 Family history of diabetes mellitus; Z82.49 Family history of ischemic heart disease and other diseases of the circulatory system; Z91.14 Patient's other noncompliance with medication regimen; Z79.01 Long term (current) use of anticoagulants; Z68.32 Body mass index [BMI] 32.0-32.9, adult; Z71.3 Dietary counseling and surveillance
CPT/HCPCS: 31500; 36415; 36600; 36620; 49083; 70450; 70544; 70551; 71045; 74018; 74176; 76770; 80048; 80053; 80061; 80074; 80076; 80202; 81001; 82550; 82570; 82607; 82728; 82747; 82803; 82947; 82962; 83520; 83550; 83605; 83615; 83735; 83880; 84100; 84132; 84145; 84156; 84160; 84165; 84300; 84484; 84520; 85007; 85014; 85018; 85025; 85027; 85610; 85730; 86021; 86038; 86160; 86689; 86706; 86803; 86850; 86900; 86901; 86920; 87040; 87070; 87076; 87086; 87186; 87205; 88112; 88305; 89050; 89051; 93005; 93010; 93308; 93321; 93325; 93880; 93970; 94002; 94003; 94640; 94760; 95819; G0378; A9270-GY; J0171; J0360; J0610; J0692; J0885; J1630; J1644; J1940; J1953; J1956; J2060; J2704; J2916; J3010; J3370; J3411; J3430; J3475; J7030; J7040; J7050; J7070; J7120; P9016